=== PATIENT | female | born 1990 | race Caucasian/White ===

== ENCOUNTER 2017-12-24 15:41 | Emergency (ER) | payer OTHER ==
[2017-12-24] MEDS ORDERED: ONDANSETRON 4 MG/2 ML VIAL ONE (16:48)
[2017-12-24] MEDS ORDERED: NA CHLORIDE 0.9% 1,000 ML ONE ×2 (16:48→18:06)
[2017-12-24] MEDS ORDERED: FAMOTIDINE 20 MG/2 ML VIAL IV ONE (16:49)
[2017-12-24 17:02] LABS: Urine Blood 3+ (NEG); Urine Glucose NEGATIVE (NEG); Urine Protein 3+ (NEG); Urine Specific Gravity >1.030 (1.005-1.030); Urine pH 5.5 (5.0-7.0)
[2017-12-24 17:04] LABS: Urine Bacteria 20-50 /HPF (<20); Urine Culture Reflex Order REFLEXED; Urine RBC 20-50 /HPF (NONE SEEN)
[2017-12-24 17:07] LABS: Absolute Lymphocytes (CBC) 1.9 K/uL (0.7-4.9); Absolute Monocytes 0.7 K/uL (0.1-1.3); Absolute Neutrophil 7.4 K/uL (1.8-8.0); Basophils % 0.5 % (0-1.3); Hematocrit 33.8 % (36.0-45.0); Lymphocytes % 18.2 % (15.3-44.8); MCH 29.3 pg (27.0-35.0); MCV 86.5 fL (80-100); MPV 8.5 fL (7.6-11.3); Monocytes % 6.8 % (3.3-12.3); RBC Red Blood Cell Count 3.91 M/uL (3.86-4.86)
[2017-12-24 17:39] LABS: ALT/SGPT 11 U/L (12-78); AST/SGOT 13 U/L (15-37); Albumin 3.2 g/dL (3.4-5.0); Alkaline Phosphatase 54 U/L (45-117); Amylase Level 31 U/L (25-115); BUN Blood Urea Nitrogen 21 mg/dL (7-18); Bicarbonate 24 mmol/L (21-32); Bilirubin Direct < 0.1 mg/dL (0-0.2); Bilirubin Total 0.2 mg/dL (0.2-1.0); Glucose Level 82 mg/dL (74-106); Lipase 91 U/L (73-393); Potassium 3.9 mmol/L (3.5-5.1); Protein, Total 6.7 g/dL (6.4-8.2); Sodium Level 137 mmol/L (136-145)
[2017-12-24] MEDS ORDERED: ACETAMINOPHEN 500 MG TAB ONE (18:16)
--- NOTE | 2017-12-24 19:02 | ER ---
Nurse's Notes [facility] Name: Shaun Lopez Age: 27 yrs Sex: Female : 1990 Arrival Date: 12/24/2017 Time: 15:45 Bed 26 Private MD: None, None Diagnosis: related conditions, unspecified;Nausea and vomiting;Headache Presentation: 12/24 15:45 Presenting complaint: Patient states: LMP- 10/20/17; i had a bad headache since this AM; hj reports nausea and vomiting;. Transition of care: patient was not received from another setting of care. Onset of symptoms was December 24, 2017. Risk Assessment: Do you want to hurt yourself or someone else? Patient reports no desire to harm self or others. Initial Sepsis Screen: Does the patient meet any 2 criteria? No. Patient's initial sepsis screen is negative. Does the patient have a suspected source of infection? No. Patient's initial sepsis screen is negative. Care prior to arrival: None. 15:45 Method Of Arrival: Ambulatory 15:45 Acuity: VERNA 3 Triage Assessment: 15:47 General: Appears in no apparent distress. uncomfortable, Behavior is calm, cooperative, hj appropriate for age. Pain: Complains of pain in head Pain currently is 8 out of 10 on a pain scale. 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 - Social history:: Smoking status: Patient/guardian denies using tobacco, Patient/guardian denies using alcohol. - Ebola Screening: : Patient negative for fever greater than or equal to 101.5 degrees Fahrenheit, and additional compatible Ebola Virus Disease symptoms Patient denies exposure to infectious person Patient denies travel to an Ebola-affected area in the 21 days before illness onset. Screenin:48 Abuse screen: Denies threats or abuse. Denies injuries from another. Nutritional hj screening: No deficits noted. Tuberculosis screening: No symptoms or risk factors identified. Fall Risk None identified. Assessment: 16:15 General: Appears uncomfortable, slender, well groomed, well developed, well nourished, tl3 Behavior is calm, cooperative, appropriate for age. Pain: Complains of pain in headache. Neuro: Level of Consciousness is awake, alert, obeys commands, Oriented to person, place, time, situation, Appropriate for age. Cardiovascular: Heart tones S1 S2 present Patient's skin is warm and dry. Respiratory: Airway is patent Respiratory effort is even, unlabored, Respiratory pattern is regular, symmetrical, Breath sounds are clear bilaterally. GI: Abdomen is round Reports vomiting. : Urine is clear. : Reports 8 weeks . EENT: No signs and/or symptoms were reported regarding the EENT system. Derm: No signs and/or symptoms reported regarding the dermatologic system. Musculoskeletal: No signs and/or symptoms reported regarding the musculoskeletal system. 18:17 Reassessment: Patient appears in no apparent distress at this time. No changes from tl3 previously documented assessment. Patient and/or family updated on plan of care and expected duration. Pain level reassessed. Patient is alert, oriented x 3, equal unlabored respirations, skin warm/dry/pink. pt feeling better after fluids but still has headache, tolerated po challenge. 19:17 Reassessment: Patient appears in no apparent distress at this time. No changes from tl3 previously documented assessment. Patient and/or family updated on plan of care and expected duration. Pain level reassessed. Patient is alert, oriented x 3, equal unlabored respirations, skin warm/dry/pink. Vital Signs: 15:48 BP 132 / 98; Pulse 79; Resp 18; Temp 99.0(TE); Pulse Ox 99% on R/A; Weight 61.23 kg; Height 5 ft. 1 in. (154.94 cm); Pain 8/10; 16:15 BP 146 / 104; Pulse 72; Resp 18; Pulse Ox 100% ; tl3 18:17 BP 143 / 99; Pulse 78; Resp 18; Pulse Ox 100% ; tl3 19:17 BP 128 / 99; Pulse 72; Resp 18; Pulse Ox 100% on R/A; tl3 15:48 Body Mass Index 25.51 (61.23 kg, 154.94 cm) ED Course: 15:45 Patient arrived in ED. mr 15:45 None, None is Private Physician. mr 15:46 Triage completed. hj 15:48 Arm band placed on right wrist. hj 15:49 Patient has correct armband on for positive identification. Bed in low position. Call hj light in reach. Side rails up X 1. 15:54 Javon Roy PA is PHCP. cp 15:54 Solis Oswald MD is Attending Physician. cp 16:00 Eri Goodman, JERALD is Primary Nurse. tl3 16:15 Pulse ox on. NIBP on. Warm blanket given. tl3 16:15 No provider procedures requiring assistance completed. Initial lab(s) drawn, by me. tl3 Inserted saline lock: 20 gauge in right forearm, using aseptic technique. Blood collected. 16:25 Urine collected: clean catch specimen, cloudy, fadi colored. jb1 19:01 Zak Sandoval MD is Referral Physician. cp 19:24 IV discontinued, intact, bleeding controlled, No redness/swelling at site. Pressure tl3 dressing applied. Administered Medications: 16:51 Drug: NS 0.9% 1000 ml Route: IV; Rate: 1 bolus; Site: right forearm; rk2 19:16 Follow up: IV Status: Completed infusion; IV Intake: 1000ml tl3 16:51 Drug: Zofran 4 mg Route: IVP; Site: right femoral; rk2 19:16 Follow up: Response: Nausea is decreased tl3 16:51 Drug: Pepcid 20 mg Route: IVP; Site: right forearm; rk2 19:16 Follow up: Response: No adverse reaction tl3 18:12 Drug: NS 0.9% 1000 ml Route: IV; Rate: 1 bolus; Site: right antecubital; Delivery: tl3 Primary tubing; 19:16 Follow up: IV Status: Completed infusion; IV Intake: 1000ml tl3 18:17 Drug: Tylenol 1000 mg Route: PO; tl3 19:15 Follow up: Response: Pain is decreased tl3 Intake: 19:16 IV: 1000ml; Total: 1000ml. tl3 19:16 IV: 1000ml; Total: 2000ml. tl3 Outcome: 19:02 Discharge ordered by . cp 19:17 Discharged to home ambulatory. tl3 19:17 Condition: good 19:17 Discharge instructions given to patient, Instructed on discharge instructions, follow up and referral plans. medication usage, Demonstrated understanding of instructions, follow-up care, medications, Prescriptions given X 1. 19:25 Patient left the ED. tl3 Addendum: 12/27/2017 17:28 Addendum: Culture Results: Positive urine culture. Patient was not prescribed s s antibiotics at discharge. Report given to KARI for further evaluation and then to pepper picker for follow up with patient. Phone call Attempt #1 no answer, left VM. Signatures: Steven Phillips jb1 Sylvia Pearson mr Vijaya Power, RN RN ss Drake Ochoa RN RN Javon Herbert PA PA Andreina Aguilar RN RN rk2 Eri Goodman RN RN tl3 Corrections: (The following items were deleted from the chart) 12/24 15:49 15:48 Pulse 79bpm; Resp 18bpm; Pulse Ox 99% RA; Temp 99.0F Temporal; 61.23 kg; Height 5 hj ft. 1 in.; BMI: 25.5; Pain 8/10; hj
--- NOTE | 2017-12-24 19:02 | EDPHYS ---
Physician Documentation [facility] Name: Shaun Lopez Age: 27 yrs Sex: Female : 1990 Arrival Date: 12/24/2017 Time: 15:45 Bed 26 Private MD: None, None ED Physician Solis Oswald HPI: 12/24 16:00 This 27 yrs old Female presents to ER via Ambulatory with complaints of 10 cp wks , Vomiting, Headache. 16:00 The patient complains of pain to the top of head and forehead and back of head. The cp patient describes the headache as constant. Onset: The symptoms/episode began/occurred this morning. Associated signs and symptoms: Pertinent positives: , nausea and vomiting for past several days, Pertinent negatives: fever, neck stiffness, paresthesias, sinus congestion, sinus tenderness, vision changes, weakness. Severity of symptoms: in the emergency department the pain is unchanged, despite home interventions. Headache History: The patient has had previous headaches and this one is less severe than previous episodes. 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 - Social history:: Smoking status: Patient/guardian denies using tobacco, Patient/guardian denies using alcohol. - Ebola Screening: : Patient negative for fever greater than or equal to 101.5 degrees Fahrenheit, and additional compatible Ebola Virus Disease symptoms Patient denies exposure to infectious person Patient denies travel to an Ebola-affected area in the 21 days before illness onset. ROS: 16:05 Constitutional: Negative for body aches, chills, fever, poor PO intake. cp 16:05 Eyes: Negative for injury, pain, redness, and discharge. cp 16:05 ENT: Negative for drainage from ear(s), ear pain, sore throat, difficulty swallowing, difficulty handling secretions. 16:05 Neck: Negative for pain with movement, pain at rest, stiffness, tenderness, bony tenderness. 16:05 Respiratory: Negative for cough, shortness of breath, wheezing. 16:05 Abdomen/GI: Positive for nausea, Negative for abdominal pain, diarrhea, constipation, active vomiting. 16:05 Skin: Negative for cellulitis, rash. 16:05 Neuro: Positive for headache, Negative for altered mental status, syncope, near syncope, weakness. 16:05 All other systems are negative. Exam: 16:22 Constitutional: The patient appears in no acute distress, alert, awake, non-toxic, well cp developed, well nourished. 16:22 Head/Face: Normocephalic, atraumatic. Eyes: Pupils equal round and reactive to light, cp extra-ocular motions intact. Lids and lashes normal. Conjunctiva and sclera are non-icteric and not injected. Cornea within normal limits. Periorbital areas with no swelling, redness, or edema. ENT: Nares patent. No nasal discharge, no septal abnormalities noted. Tympanic membranes are normal and external auditory canals are clear. Oropharynx with no redness, swelling, or masses, exudates, or evidence of obstruction, uvula midline. Mucous membranes moist. Neck: Trachea midline, no thyromegaly or masses palpated, and no cervical lymphadenopathy. Supple, full range of motion without nuchal rigidity, or vertebral point tenderness. No Meningismus. Chest/axilla: Normal chest wall appearance and motion. Nontender with no deformity. No lesions are appreciated. 16:22 Cardiovascular: Rate: normal, Rhythm: regular, Pulses: Pulses are 2+ in right radial artery and left radial artery. Edema: is not appreciated, JVD: is not appreciated. 16:22 Respiratory: the patient does not display signs of respiratory distress, Respirations: normal, no use of accessory muscles, no retractions, no splinting, no tachypnea, labored breathing, is not present, Breath sounds: are clear throughout, no decreased breath sounds, no stridor, no wheezing. 16:22 Abdomen/GI: Inspection: abdomen appears normal, Bowel sounds: active, all quadrants, Palpation: abdomen is soft and non-tender, in all quadrants, rebound tenderness, is not appreciated, voluntary guarding, is not appreciated, involuntary guarding, is not appreciated. 16:22 Back: CVA tenderness, is absent. 16:22 Skin: cellulitis, is not appreciated, no rash present. 16:22 Neuro: Orientation: to person, place \T\ time. Mentation: lucid, able to follow commands, Cerebellar function: is grossly normal, Motor: moves all fours, strength is normal, Sensation: is normal. Vital Signs: 15:48 BP 132 / 98; Pulse 79; Resp 18; Temp 99.0(TE); Pulse Ox 99% on R/A; Weight 61.23 kg; hj Height 5 ft. 1 in. (154.94 cm); Pain 8/10; 16:15 BP 146 / 104; Pulse 72; Resp 18; Pulse Ox 100% ; tl3 18:17 BP 143 / 99; Pulse 78; Resp 18; Pulse Ox 100% ; tl3 19:17 BP 128 / 99; Pulse 72; Resp 18; Pulse Ox 100% on R/A; tl3 15:48 Body Mass Index 25.51 (61.23 kg, 154.94 cm) hj MDM: 15:54 Patient medically screened. cp 17:00 Differential diagnosis: meningitis, meningoencephalitis, migraine, sinusitis, cp dehydration, electrolyte abnormality. 18:23 ED course: VS noted. Patient reports symptoms better. No vomiting observed. cp 19:00 Data reviewed: vital signs, nurses notes, lab test result(s), and as a result, I will cp discharge patient. 19:00 Counseling: I had a detailed discussion with the patient and/or guardian regarding: the historical points, exam findings, and any diagnostic results supporting the discharge/admit diagnosis, the presence of at least one elevated blood pressure reading (>120/80) during this emergency department visit, lab results, the need for outpatient follow up, an OB/Gyne specialist, to return to the emergency department if symptoms worsen or persist or if there are any questions or concerns that arise at home. Response to treatment: the patient's symptoms have markedly improved after treatment, and as a result, I will discharge patient. 12/24 16:25 Order name: Urine Microscopic Only; Complete Time: 17:51 jb1 12/24 17:52 Interpretation: Normal except: UWBC 5-10; URBC 20-50; UBACT 20-50; SQEPI 10-20. cp 12/24 16:34 Order name: Urine Dipstick--Ancillary (enter results); Complete Time: 17:51 sp 12/24 17:52 Interpretation: Normal except: UBLD 3+; UPROT 3+. cp 12/24 16:34 Order name: Test Urine - POC; Complete Time: 17:51 sp 12/24 16:38 Order name: Amylase, Serum; Complete Time: 17:51 cp 12/24 16:38 Order name: Basic Metabolic Panel; Complete Time: 17:51 cp 12/24 17:52 Interpretation: Normal except: BUN 21; GFR 67. cp 12/24 16:38 Order name: CBC with Diff; Complete Time: 17:51 cp 12/24 17:52 Interpretation: Normal except: HGB 11.5; HCT 33.8. cp 12/24 16:38 Order name: Creatinine for Radiology; Complete Time: 17:51 cp 12/24 16:38 Order name: Hepatic Function; Complete Time: 17:51 cp 12/24 16:38 Order name: Lipase; Complete Time: 17:51 cp 12/24 17:05 Order name: Urine Culture EDMS 12/24 15:54 Order name: Orthostatics cp 12/24 15:58 Order name: Urine Dipstick-Ancillary (obtain specimen); Complete Time: 16:25 cp 12/24 15:58 Order name: Urine Test (obtain specimen); Complete Time: 16:25 cp 12/24 16:38 Order name: IV Saline Lock; Complete Time: 16:52 cp 12/24 16:38 Order name: Labs collected and sent; Complete Time: 16:52 cp 12/24 17:53 Order name: PO challenge; Complete Time: 18:13 cp Administered Medications: 16:51 Drug: NS 0.9% 1000 ml Route: IV; Rate: 1 bolus; Site: right forearm; rk2 19:16 Follow up: IV Status: Completed infusion; IV Intake: 1000ml tl3 16:51 Drug: Zofran 4 mg Route: IVP; Site: right femoral; rk2 19:16 Follow up: Response: Nausea is decreased tl3 16:51 Drug: Pepcid 20 mg Route: IVP; Site: right forearm; rk2 19:16 Follow up: Response: No adverse reaction tl3 18:12 Drug: NS 0.9% 1000 ml Route: IV; Rate: 1 bolus; Site: right antecubital; Delivery: tl3 Primary tubing; 19:16 Follow up: IV Status: Completed infusion; IV Intake: 1000ml tl3 18:17 Drug: Tylenol 1000 mg Route: PO; tl3 19:15 Follow up: Response: Pain is decreased tl3 Disposition: 12/24/17 19:02 Discharged to Home. Impression: related conditions, unspecified, Nausea and vomiting, Headache. - Condition is Stable. - Discharge Instructions: General Headache Without Cause, Medicines During , Nausea and Vomiting. - Prescriptions for Phenergan 25 mg Rectal Suppository - insert 1 suppository by RECTAL route every 6 hours As needed; 12 suppository. promethazine 25 mg Oral Tablet - take 1 tablet by ORAL route every 6 hours As needed; 20 tablet. - Medication Reconciliation Form, Thank You Letter, Antibiotic Education, Prescription Opioid Use form. - Follow up: Zak Sandoval MD; When: 2 - 3 days; Reason: Recheck today's complaints. - Problem is new. - Symptoms have improved. - Notes: continue taking current blood pressure medication and follow-up with DR Sandoval next 2-3 days Addendum: 12/26/2017 23:02 Co-signature as Attending Physician, Solis Oswald MD I agree with the assessment and k dr plan of care. Signatures: Dispatcher [employer] EDMS Solis Oswald MD MD [facility] Drake Ochoa RN RN Javon Herbert PA PA cp Andreina Islas RN RN rk2 Eri Goodman, JERALD RN tl3 Corrections: (The following items were deleted from the chart) 12/24 19:25 19:02 12/24/2017 19:02 Discharged to Home. Impression: related conditions, tl3 unspecified; Nausea and vomiting; Headache. Condition is Stable. Forms are Medication Reconciliation Form, Thank You Letter, Antibiotic Education, Prescription Opioid Use. Follow up: Zak Sandoval; When: 2 - 3 days; Reason: Recheck today's complaints. Problem is new. Symptoms have improved. cp
[2017-12-24 19:29] VITALS: TEMP 99
[2017-12-24 19:30] VITALS: O2SAT 100
[2017-12-24 19:32] VITALS: BP 128/99
== END 2017-12-24 19:25 | disposition home or self-care (01) ==
LOC: ER 15:41
DX: O21.9 Vomiting of pregnancy, unspecified (principal); R51 Headache; Z3A.10 10 weeks gestation of pregnancy
CPT/HCPCS: 36415; 80048; 80076; 81003; 81015; 81025; 82150; 83690; 85025; 87077; 87086; 87088; 87186; 99284; J2405; J7030

== ENCOUNTER 2018-01-25 13:38 | Emergency (ER) | payer OTHER ==
[2018-01-25 14:35] LABS: Absolute Lymphocytes (CBC) 1.5 K/uL (0.7-4.9); Absolute Monocytes 0.5 K/uL (0.1-1.3); Absolute Neutrophil 8.3 K/uL (1.8-8.0); Basophils % 0.4 % (0-1.3); Eosinophils % 0.9 % (0-4.4); Hematocrit 33.7 % (36.0-45.0); Lymphocytes % 14.3 % (15.3-44.8); MPV 8.1 fL (7.6-11.3); Monocytes % 5.1 % (3.3-12.3); RBC Red Blood Cell Count 3.87 M/uL (3.86-4.86)
[2018-01-25 14:42] LABS: Urine Blood 3+ (NEG); Urine Glucose NEGATIVE (NEG); Urine Protein 3+ (NEG); Urine Specific Gravity 1.025 (1.005-1.030); Urine pH 5.5 (5.0-7.0)
[2018-01-25] MEDS ORDERED: ACETAMINOPHEN 500 MG TAB ONE (15:03)
[2018-01-25] MEDS ORDERED: NA CHLORIDE 0.9% 1,000 ML ONE (15:03)
[2018-01-25 15:18] LABS: Potassium 3.7 mmol/L (3.5-5.1)
--- NOTE | 2018-01-25 15:40 | ER ---
Nurse's Notes [facility] Name: Shaun Lopez Age: 27 yrs Sex: Female : 1990 Arrival Date: 01/25/2018 Time: 13:41 Bed 17 Private MD: None, None Diagnosis: Abdominal and pelvic pain Presentation: 01/25 14:01 Presenting complaint: Patient states: being about 14 weeks and started having sv abd cramping that started yesterday. Denies vaginal bleeding. Transition of care: patient was not received from another setting of care. Onset of symptoms was January 24, 2018. Care prior to arrival: None. 14:01 Method Of Arrival: Ambulatory sv 14:01 Acuity: VERNA 3 sv 16:02 Risk Assessment: Do you want to hurt yourself or someone else? Patient reports no hj desire to harm self or others. Initial Sepsis Screen: Does the patient meet any 2 criteria? No. Patient's initial sepsis screen is negative. Does the patient have a suspected source of infection? No. Patient's initial sepsis screen is negative. Triage Assessment: 16:01 General: Appears in no apparent distress. uncomfortable, Behavior is calm, cooperative, hj appropriate for age. Pain: Complains of pain in abdomen. GI: Reports lower abdominal pain, upper abdominal pain. 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 - Social history:: Smoking status: Patient/guardian denies using tobacco. - Ebola Screening: : No symptoms or risks identified at this time. Screenin:01 Abuse screen: Denies threats or abuse. Denies injuries from another. Nutritional hj screening: No deficits noted. Tuberculosis screening: No symptoms or risk factors identified. Fall Risk None identified. Assessment: 16:01 GI: Bowel sounds present X 4 quads. Abd is soft. hj Vital Signs: 14:03 BP 131 / 77; Pulse 102; Resp 18; Pulse Ox 98% ; Weight 58.97 kg; Height 5 ft. 1 in. sv (154.94 cm); Pain /; 14:03 Body Mass Index 24.56 (58.97 kg, 154.94 cm) ED Course: 13:41 Patient arrived in ED. mr 13:42 None, None is Private Physician. mr 14:02 Triage completed. sv 14:03 Arm band placed on right wrist. sv 14:04 Drake Ochoa RN is Primary Nurse. hj 14:05 Tayo Grey PA is PHCP. jr8 14:05 Blayne Barclay MD is Attending Physician. jr8 16:02 Patient has correct armband on for positive identification. Placed in gown. Bed in low hj position. Call light in reach. Side rails up X 1. 16:02 No provider procedures requiring assistance completed. Initial lab(s) drawn, by ar, hj sent to lab. Inserted saline lock: 14 gauge 22 gauge in right antecubital area, using aseptic technique. Blood collected. IV discontinued, intact, bleeding controlled, No redness/swelling at site. Pressure dressing applied. Administered Medications: 15:00 Drug: NS 0.9% 1000 ml Route: IV; Rate: 1000 ml; Site: right antecubital; hj 16:03 Follow up: IV Status: Completed infusion hj 15:00 Drug: Tylenol 1000 mg Route: PO; hj 16:03 Follow up: Response: No adverse reaction Outcome: 15:39 Discharge ordered by . jr8 16:02 Discharged to home ambulatory. hj 16:02 Condition: stable 16:02 Discharge instructions given to patient, Instructed on discharge instructions, follow up and referral plans. Demonstrated understanding of instructions, follow-up care. 16:03 Patient left the ED. Signatures: Maya Wood RN RN Sylvia Pearson mr Tayo Grey PA PA jr8 Drake Ochoa RN RN
--- NOTE | 2018-01-25 15:41 | EDPHYS ---
Physician Documentation [facility] Name: Shaun Lopez Age: 27 yrs Sex: Female : 1990 Arrival Date: 01/25/2018 Time: 13:41 Bed 17 Private MD: None, None ED Physician Blayne Barclay HPI: 01/25 15:31 This 27 yrs old Female presents to ER via Ambulatory with complaints of 14 jr8 wks , Abdominal Cramping. 15:32 The patient presents with pelvic pain, the pain is described as crampy. Onset: The jr8 symptoms/episode began/occurred acutely, today. Modifying factors: The symptoms are alleviated by nothing, the symptoms are aggravated by nothing. Associated signs and symptoms: The patient has no apparent associated signs or symptoms. Severity of symptoms: At their worst the symptoms were mild, in the emergency department the symptoms are unchanged. The patient has not experienced similar symptoms in the past. The patient has not recently seen a physician. Stated that she works outside a lot for work. Approximately 15 weeks . Stated that she started to have lower abdominal cramping. Denies vaginal bleeding and discharge . 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 - Social history:: Smoking status: Patient/guardian denies using tobacco. - Ebola Screening: : No symptoms or risks identified at this time. ROS: 15:32 Eyes: Negative for injury, pain, redness, and discharge, ENT: Negative for injury, jr8 pain, and discharge, Neck: Negative for injury, pain, and swelling, Cardiovascular: Negative for chest pain, palpitations, and edema, Respiratory: Negative for shortness of breath, cough, wheezing, and pleuritic chest pain, Abdomen/GI: Negative for abdominal pain, nausea, vomiting, diarrhea, and constipation, Back: Negative for injury and pain, MS/Extremity: Negative for injury and deformity, Skin: Negative for injury, rash, and discoloration, Neuro: Negative for headache, weakness, numbness, tingling, and seizure. 15:32 : Positive for pelvic pain, Negative for urinary symptoms, vaginal bleeding, vaginal discharge. Exam: 15:32 Eyes: Pupils equal round and reactive to light, extra-ocular motions intact. Lids and jr8 lashes normal. Conjunctiva and sclera are non-icteric and not injected. Cornea within normal limits. Periorbital areas with no swelling, redness, or edema. ENT: Nares patent. No nasal discharge, no septal abnormalities noted. Tympanic membranes are normal and external auditory canals are clear. Oropharynx with no redness, swelling, or masses, exudates, or evidence of obstruction, uvula midline. Mucous membranes moist. Neck: Trachea midline, no thyromegaly or masses palpated, and no cervical lymphadenopathy. Supple, full range of motion without nuchal rigidity, or vertebral point tenderness. No Meningismus. Cardiovascular: Regular rate and rhythm with a normal S1 and S2. No gallops, murmurs, or rubs. Normal PMI, no JVD. No pulse deficits. Respiratory: Lungs have equal breath sounds bilaterally, clear to auscultation and percussion. No rales, rhonchi or wheezes noted. No increased work of breathing, no retractions or nasal flaring. Abdomen/GI: Soft, non-tender, with normal bowel sounds. No distension or tympany. No guarding or rebound. No evidence of tenderness throughout. Back: No spinal tenderness. No costovertebral tenderness. Full range of motion. Skin: Warm, dry with normal turgor. Normal color with no rashes, no lesions, and no evidence of cellulitis. MS/ Extremity: Pulses equal, no cyanosis. Neurovascular intact. Full, normal range of motion. Neuro: Awake and alert, GCS 15, oriented to person, place, time, and situation. Cranial nerves II-XII grossly intact. Motor strength 5/5 in all extremities. Sensory grossly intact. Cerebellar exam normal. Normal gait. Vital Signs: 14:03 BP 131 / 77; Pulse 102; Resp 18; Pulse Ox 98% ; Weight 58.97 kg; Height 5 ft. 1 in. sv (154.94 cm); Pain 1/10; 14:03 Body Mass Index 24.56 (58.97 kg, 154.94 cm) sv MDM: 14:06 Patient medically screened. 8 15:32 Data reviewed: vital signs, nurses notes, lab test result(s), and as a result, I will jr8 discharge patient. Data interpreted: Pulse oximetry: on room air is 98 %. Interpretation: normal. Counseling: I had a detailed discussion with the patient and/or guardian regarding: the historical points, exam findings, and any diagnostic results supporting the discharge/admit diagnosis, lab results, the need for outpatient follow up, an OB/Gyne specialist, to return to the emergency department if symptoms worsen or persist or if there are any questions or concerns that arise at home. Response to treatment: the patient's symptoms have resolved after treatment. ED course: Patient without pain after fluids and Tylenol. Explained to patient probably either uterine irritability or mild related cramping secondary to uterine and broad ligament stretching. Recommend rest for next couple of days. If worse or bleeding to come back for further evaluation. FHT was 140 bpm. . 01/25 14:06 Order name: Quantitative Hcg; Complete Time: 15:01/25 14:06 Order name: Abo/rh Typing; Complete Time: 15:01/25 14:06 Order name: Basic Metabolic Panel; Complete Time: 15:01/25 14:06 Order name: CBC with Diff; Complete Time: 15:01/25 14:33 Order name: Urine Dipstick--Ancillary (enter results); Complete Time: 14:46 01/25 14:33 Order name: Urine --Ancillary (enter results); Complete Time: 14:46 01/25 14:06 Order name: Urine Test (obtain specimen); Complete Time: 14:24 01/25 14:06 Order name: IV Saline Lock; Complete Time: 14:01/25 14:06 Order name: Labs collected and sent; Complete Time: 14:01/25 14:06 Order name: NPO; Complete Time: 14:08 01/25 14:06 Order name: Urine Dipstick-Ancillary (obtain specimen); Complete Time: 14: Administered Medications: 15:00 Drug: NS 0.9% 1000 ml Route: IV; Rate: 1000 ml; Site: right antecubital; 16:03 Follow up: IV Status: Completed infusion hj 15:00 Drug: Tylenol 1000 mg Route: PO; 16:03 Follow up: Response: No adverse reaction Disposition: 16:50 Co-signature as Attending Physician, Blayne Barclay MD. rn Disposition: 01/25/18 15:39 Discharged to Home. Impression: Abdominal and pelvic pain. - Condition is Stable. - Discharge Instructions: Abdominal Pain During . - Work release form, Medication Reconciliation Form, Thank You Letter, Antibiotic Education, Prescription Opioid Use form. - Follow up: Private Physician; When: 5 - 6 days; Reason: Recheck today's complaints, Continuance of care, Re-evaluation by your physician. - Problem is new. - Symptoms have improved. Signatures: Dispatcher [employer] Maya Webber, RN Blayne Salgado MD MD rn Roszak, Josh, PA PA jr8 Drake Ochoa RN RN Corrections: (The following items were deleted from the chart) 16:03 15:39 01/25/2018 15:39 Discharged to Home. Impression: Abdominal and pelvic pain. hj Condition is Stable. Forms are Medication Reconciliation Form, Thank You Letter, Antibiotic Education, Prescription Opioid Use. Follow up: Private Physician; When: 5 - 6 days; Reason: Recheck today's complaints, Continuance of care, Re-evaluation by your physician. Problem is new. Symptoms have improved. jr8
[2018-01-25 16:08] VITALS: BP 131/77; O2SAT 98
== END 2018-01-25 16:03 | disposition home or self-care (01) ==
LOC: ER 13:38
DX: R10.2 Pelvic and perineal pain (principal); O16.2 Unspecified maternal hypertension, second trimester; Z3A.15 15 weeks gestation of pregnancy
CPT/HCPCS: 36415; 80048; 81003; 81025; 84702; 85025; 86900; 86901; 96360; 99283; J7030

== ENCOUNTER 2018-02-09 08:59 | Emergency (ER) | payer OTHER ==
[2018-02-09] MEDS ORDERED: NA CHLORIDE 0.9% 1,000 ML ONE (10:48)
[2018-02-09 11:21] LABS: Urine Amorphous Sediment 1+ /HPF (NONE SEEN); Urine Bacteria <20 /HPF (<20); Urine Culture Reflex Order NOT NEEDED; Urine Mucus 1+ /HPF (NONE SEEN); Urine RBC <5 /HPF (NONE SEEN)
[2018-02-09 11:21] LABS: Urine Blood 2+ (NEG); Urine Glucose NEGATIVE (NEG); Urine Protein 2+ (NEG)
--- NOTE | 2018-02-09 11:47 | ER ---
Nurse's Notes [facility] Name: Shaun Lopez Age: 27 yrs Sex: Female : 1990 Arrival Date: 02/09/2018 Time: 09:01 Bed 13 Private MD: None, None Diagnosis: Headache Presentation: 02/09 09:18 Presenting complaint: Patient states: I took my labetilol 100 mg this morning with my ch nefedipine 60 mg this morning at 0730. I started feeling faint. My OB told me I should not have taken them together and to go strait to the ER. I am about 15 weeks . Transition of care: patient was not received from another setting of care. Onset of symptoms was February 09, 2018 at 08:00. Risk Assessment: Do you want to hurt yourself or someone else? Patient reports no desire to harm self or others. Initial Sepsis Screen: Does the patient meet any 2 criteria? No. Patient's initial sepsis screen is negative. Does the patient have a suspected source of infection? No. Patient's initial sepsis screen is negative. Care prior to arrival: None. 09:18 Method Of Arrival: Ambulatory 09:18 Acuity: VERNA 4 Triage Assessment: 09:20 General: Appears in no apparent distress. comfortable, Behavior is anxious. Pain: ch Denies pain. Neuro: No deficits noted. Level of Consciousness is awake, alert, obeys commands, Oriented to person, place. Neuro: Reports dizziness, weakness feeling faint. Respiratory: Airway is patent Respiratory effort is even, unlabored. : No signs and/or symptoms were reported regarding the genitourinary system. 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 - Social history:: Smoking status: Patient/guardian denies using tobacco. - Ebola Screening: : Patient negative for fever greater than or equal to 101.5 degrees Fahrenheit, and additional compatible Ebola Virus Disease symptoms Patient denies exposure to infectious person Patient denies travel to an Ebola-affected area in the 21 days before illness onset No symptoms or risks identified at this time. Screenin:22 Abuse screen: Denies threats or abuse. Denies injuries from another. Nutritional ch screening: No deficits noted. Tuberculosis screening: No symptoms or risk factors identified. Fall Risk None identified. Assessment: 09:22 Reassessment: Patient appears in no apparent distress at this time. 09:39 Reassessment: Patient is alert, oriented x 3, equal unlabored respirations, skin ch warm/dry/pink. pt c/o headache as well. awaiting provider to see pt. 10:53 Reassessment: Patient appears in no apparent distress at this time. No changes from previously documented assessment. Patient and/or family updated on plan of care and expected duration. Pain level reassessed. Patient is alert, oriented x 3, equal unlabored respirations, skin warm/dry/pink. 11:08 Reassessment: Patient appears in no apparent distress at this time. Patient and/or ch family updated on plan of care and expected duration. Pain level reassessed. Patient is alert, oriented x 3, equal unlabored respirations, skin warm/dry/pink. Patient states feeling better. 12:02 Reassessment: Patient appears in no apparent distress at this time. Patient and/or ch family updated on plan of care and expected duration. Pain level reassessed. Patient is alert, oriented x 3, equal unlabored respirations, skin warm/dry/pink. Patient states feeling better. Patient states symptoms have improved. Vital Signs: 09:20 BP 110 / 70; Pulse 80; Resp 16; Temp 98.3; Pulse Ox 99% on R/A; Weight 68.04 kg; Height 5 ft. 5 in. (165.10 cm); Pain 0/10; 09:39 BP 107 / 62; Pulse 71; Resp 14; Pulse Ox 99% on R/A; Pain 5/10; ch 10:53 BP 108 / 64; Pulse 72; Resp 14; Pulse Ox 99% on R/A; Pain 5/10; ch 11:08 BP 106 / 68; Pulse 68; Resp 14; Pulse Ox 100% on R/A; Pain 2/10; ch 12:02 BP 121 / 69; Pulse 65; Resp 14; Temp 97.8; Pulse Ox 99% on R/A; Pain 0/10; ch 09:20 Body Mass Index 24.96 (68.04 kg, 165.10 cm) Vitals: 11:08 Heart Tones 155. ED Course: 09:01 Patient arrived in ED. mr 09:01 None, None is Private Physician. mr 09:12 Jessica Bearden RN is Primary Nurse. 09:17 Marco Antonio Ferrer NP is PHCP. pm1 09:17 Blayne Barclay MD is Attending Physician. pm1 09:19 Triage completed. 09:20 Arm band placed on left wrist. Patient placed in an exam room, on a stretcher, on pulse oximetry. 09:22 No apparent distress. Resting quietly. 09:22 Patient has correct armband on for positive identification. Bed in low position. Call light in reach. Side rails up X 1. Adult w/ patient. Pulse ox on. NIBP on. 09:22 No provider procedures requiring assistance completed. 11:06 Urine collected: clean catch specimen, clear. [facility] 11:06 Urine Microscopic Only Sent. [facility] 11:08 Warm blanket given. 11:08 Inserted saline lock: 20 gauge in right antecubital area, using aseptic technique. 12:02 No apparent distress. Resting quietly. 12:02 IV discontinued, intact, bleeding controlled, No redness/swelling at site. Pressure dressing applied. Administered Medications: 11:09 Drug: NS 0.9% 1000 ml Route: IV; Rate: 1000 ml; Site: right antecubital; 12:02 Follow up: IV Status: Completed infusion; IV Intake: 1000ml ch Intake: 12:02 IV: 1000ml; Total: 1000ml. Outcome: 11:47 Discharge ordered by . pm1 12:02 Discharged to home ambulatory. 12:02 Condition: improved 12:02 Discharge instructions given to patient, Instructed on discharge instructions, follow up and referral plans. Demonstrated understanding of instructions, follow-up care. 12:16 Patient left the ED. Signatures: Jessica Bearden RN RN ch Rivera, Maria mr Marco Antonio Ferrer NP [facility] Sylvia Wattesr [facility]
--- NOTE | 2018-02-09 11:47 | EDPHYS ---
Physician Documentation [facility] Name: Shaun Lopez Age: 27 yrs Sex: Female : 1990 Arrival Date: 02/09/2018 Time: 09:01 Bed 13 Private MD: None, None ED Physician Blayne Barclay HPI: 02/09 11:27 This 27 yrs old Female presents to ER via Ambulatory with complaints of Took pm1 Medication wrong 15 wks . 11:27 Patient 16 weeks and was seen by garment cutter, Dr. Irlanda Cadet yesterday for pm1 asymptomatic microscopic hematuria, proteinuria, and hypertension. CBC, BMP, UA, albumin, YUMIKO, Hepatitis, and HIV panel labs were performed yesterday. Patient was taking hydrochlorothiazide 25 mg PO daily until today. Patient was prescribed labetalol 100 mg PO every 12 hours and nifedipine ER 60 mg PO once daily. She is presenting today for dizziness and headache after taking her new blood pressure medication for the first time today. She called Dr. Cadet and was told that she was only supposed to take the labetalol. Instructed by Dr. Cadet to report to the ER for evaluation. Patient sees Dr. Santosh Alston for obstetrics and has had an ultrasound recently. Patient is feeling better with a complaint of headache. 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 - Social history:: Smoking status: Patient/guardian denies using tobacco. - Ebola Screening: : Patient negative for fever greater than or equal to 101.5 degrees Fahrenheit, and additional compatible Ebola Virus Disease symptoms Patient denies exposure to infectious person Patient denies travel to an Ebola-affected area in the 21 days before illness onset No symptoms or risks identified at this time. ROS: 11:30 Constitutional: Negative for fever, chills, and weight loss, Eyes: Negative for injury, pm1 pain, redness, and discharge, ENT: Negative for injury, pain, and discharge, Neck: Negative for injury, pain, and swelling, Cardiovascular: Negative for chest pain, palpitations, and edema, Respiratory: Negative for shortness of breath, cough, wheezing, and pleuritic chest pain, Abdomen/GI: Negative for abdominal pain, nausea, vomiting, diarrhea, and constipation, Back: Negative for injury and pain, : Negative for injury, bleeding, discharge, and swelling, MS/Extremity: Negative for injury and deformity, Skin: Negative for injury, rash, and discoloration. 11:30 Neuro: Positive for headache, Negative for numbness, syncope, near syncope, tingling, weakness. Exam: 11:30 Constitutional: This is a well developed, well nourished patient who is awake, alert, pm1 and in no acute distress. Head/Face: Normocephalic, atraumatic. Eyes: Pupils equal round and reactive to light, extra-ocular motions intact. Lids and lashes normal. Conjunctiva and sclera are non-icteric and not injected. Cornea within normal limits. Periorbital areas with no swelling, redness, or edema. ENT: Nares patent. No nasal discharge, no septal abnormalities noted. Tympanic membranes are normal and external auditory canals are clear. Oropharynx with no redness, swelling, or masses, exudates, or evidence of obstruction, uvula midline. Mucous membranes moist. Neck: Trachea midline, no thyromegaly or masses palpated, and no cervical lymphadenopathy. Supple, full range of motion without nuchal rigidity, or vertebral point tenderness. No Meningismus. Chest/axilla: Normal chest wall appearance and motion. Nontender with no deformity. No lesions are appreciated. Cardiovascular: Regular rate and rhythm with a normal S1 and S2. No gallops, murmurs, or rubs. Normal PMI, no JVD. No pulse deficits. Respiratory: Lungs have equal breath sounds bilaterally, clear to auscultation and percussion. No rales, rhonchi or wheezes noted. No increased work of breathing, no retractions or nasal flaring. Abdomen/GI: Soft, non-tender, with normal bowel sounds. No distension or tympany. No guarding or rebound. No evidence of tenderness throughout. Back: No spinal tenderness. No costovertebral tenderness. Full range of motion. Skin: Warm, dry with normal turgor. Normal color with no rashes, no lesions, and no evidence of cellulitis. MS/ Extremity: Pulses equal, no cyanosis. Neurovascular intact. Full, normal range of motion. 11:30 Neuro: Orientation: is normal, Mentation: is normal, Cranial nerves: CN II- XII are normal as tested, Cerebellar function: normal finger to nose testing, Motor: moves all fours, strength is normal, strength is 5/5 in all extremities, Sensation: is normal, no obvious gross deficits, Gait: is steady, at a normal pace, without difficulty. Vital Signs: 09:20 BP 110 / 70; Pulse 80; Resp 16; Temp 98.3; Pulse Ox 99% on R/A; Weight 68.04 kg; Height ch 5 ft. 5 in. (165.10 cm); Pain 0/10; 09:39 BP 107 / 62; Pulse 71; Resp 14; Pulse Ox 99% on R/A; Pain 5/10; ch 10:53 BP 108 / 64; Pulse 72; Resp 14; Pulse Ox 99% on R/A; Pain 5/10; ch 11:08 BP 106 / 68; Pulse 68; Resp 14; Pulse Ox 100% on R/A; Pain 2/10; ch 12:02 BP 121 / 69; Pulse 65; Resp 14; Temp 97.8; Pulse Ox 99% on R/A; Pain 0/10; ch 09:20 Body Mass Index 24.96 (68.04 kg, 165.10 cm) MDM: 09:18 Patient medically screened. pm1 11:38 Data reviewed: vital signs. Data interpreted: Pulse oximetry: on room air is 100 %. pm1 Interpretation: normal. Counseling: I had a detailed discussion with the patient and/or guardian regarding: the historical points, exam findings, and any diagnostic results supporting the discharge/admit diagnosis, the need for outpatient follow up, to return to the emergency department if symptoms worsen or persist or if there are any questions or concerns that arise at home. 02/09 10:41 Order name: Urine Microscopic Only; Complete Time: 11:25 pm1 02/09 11:15 Order name: Urine Dipstick--Ancillary (enter results); Complete Time: 11:25 bd 02/09 10:41 Order name: FHT's; Complete Time: 11: pm1 02/09 10:41 Order name: IV Saline Lock; Complete Time: 11: pm1 02/09 11:15 Order name: Urine --Ancillary (enter results); Complete Time: 11:25 bd 02/09 10:41 Order name: Urine Dipstick-Ancillary (obtain specimen); Complete Time: 11: pm1 Administered Medications: 11:09 Drug: NS 0.9% 1000 ml Route: IV; Rate: 1000 ml; Site: right antecubital; 12:02 Follow up: IV Status: Completed infusion; IV Intake: 1000ml Disposition: 14:39 Co-signature as Attending Physician, Blayne Barclay MD. rn Disposition: 02/09/18 11:47 Discharged to Home. Impression: Headache. - Condition is Stable. - Discharge Instructions: General Headache Without Cause. - Work release form, Medication Reconciliation Form, Thank You Letter form. - Follow up: Emergency Department; When: As needed; Reason: Worsening of condition. Follow up: Private Physician; When: 2 - 3 days; Reason: Recheck today's complaints, Continuance of care, Re-evaluation by your physician. - Problem is new. - Symptoms have improved. - Notes: Stop taking the nifedipine ER as directed by Dr. Cadet Signatures: Dispatcher [employer] Jessica Joshi, RN Blayne Randall ch, MD MD rn Marinas, Patrick, NIPPING MACHINE OPERATOR NIPPING MACHINE OPERATOR pm1 Corrections: (The following items were deleted from the chart) 12:16 11:47 02/09/2018 11:47 Discharged to Home. Impression: Headache. Condition is Stable. ch Forms are Medication Reconciliation Form, Thank You Letter, Antibiotic Education, Prescription Opioid Use. Follow up: Emergency Department; When: As needed; Reason: Worsening of condition. Follow up: Private Physician; When: 2 - 3 days; Reason: Recheck today's complaints, Continuance of care, Re-evaluation by your physician. Problem is new. Symptoms have improved. pm1
[2018-02-09 12:27] VITALS: BP 121/69; TEMP 97.8; O2SAT 99
== END 2018-02-09 12:16 | disposition home or self-care (01) ==
LOC: ER 08:59
DX: R51 Headache (principal); Z33.1 Pregnant state, incidental
CPT/HCPCS: 81003; 81015; 81025; 96360; 99284; J7030

== ENCOUNTER 2020-05-01 17:31 | Emergency (ER) | payer OTHER ==
--- OUTSIDE RECORDS SUMMARY | 2020-05-01 17:34 | XMS REPORT | Summary of Care ---
:1990 Author Organization [facility] [employer] [facility] Address [address] [place] [address] Care Team Providers Name Role Phone Hernandez Harrison Primary Care Provider Reason for Visit Reason Onset Date Comments ELEVATED BLOOD PRESSURE 03/31/2020 Encounter Details Date Type Department Care Team Description 03/31/2020 Nurse Triage [facility] Karolina Mas RN ELEVATED BLOOD [address] [place] [phone] Allergies No Known Allergiesdocumented as of this encounter (statuses as of 04/01/2020) Medications Medication Sig Dispensed Refills Start Date End Date Status traMADol 50 mg Take 1 tablet by 16 tablet 0 11/02/2019 Active tabletIndications: mouth every 6 Muscle spasm, Strain of (six) hours as neck muscle, initial needed for Pain encounter, Strain of (scale 7-10). left trapezius muscle, initial encounter, Cervical radiculopathy ketorolac 10 mg Take 1 tablet by 16 tablet 0 11/02/2019 Active tabletIndications: mouth every 6 Muscle spasm, Strain of (six) hours as neck muscle, initial needed for Pain encounter, Strain of (scale 7-10). left trapezius muscle, initial encounter, Cervical radiculopathy cyclobenzaprine 5 mg Take 1 tablet by 16 tablet 0 11/02/2019 Active tabletIndications: mouth 3 (three) Muscle spasm, Strain of times daily as neck muscle, initial needed for Muscle encounter, Strain of Spasms. left trapezius muscle, initial encounter, Cervical radiculopathy lidocaine 5 % (700 Apply 1 Patch to 3 Each 0 11/02/2019 Active mg/patch) area(s) every 12 patchIndications: (twelve) hours as Muscle spasm, Strain of needed for neck muscle, initial Localized pain. encounter, Strain of left trapezius muscle, initial encounter, Cervical radiculopathy albuterol 90 Inhale 2 Puffs 8.5 g 1 01/23/2020 A ctive mcg/actuation every 6 (six) inhalerIndications: hours as needed Mild intermittent for Wheezing or reactive airway disease Shortness of without complication Breath. documented as of this encounter (statuses as of 04/01/2020) Active Problems Problem Noted Date Low back pain 07/01/2018 S/P section 06/26/2018 Chronic hypertension with superimposed preeclampsia 34 weeks gestation of 06/19/2018 Obesity (BMI 30-39.9) 06/13/2018 LGSIL on Pap smear of cervix 05/30/2018 Asymptomatic microscopic hematuria 02/06/2018 Persistent proteinuria 02/06/2018 Essential hypertension 07/14/2017 Seizure disorder History of migraine headaches documented as of this encounter (statuses as of 04/01/2020) Resolved Problems Problem Noted Date Resolved Date 33 weeks gestation of 06/08/2018 08/01/19 19 Preexisting hypertension complicating , antepartum, 06/08/2018 08/01/2018 third trimester Previous delivery affecting 06/08/2018 08/01/2018 documented as of this encounter (statuses as of 04/01/2020) Immunizations Name Administration Dates Next Due Influenza Virus Vaccine 04/05/2019 Influenza Virus Vaccine Quad .5 mL IM 6+ MO 04/05/2019 documented as of this encounter Social History Tobacco Use Types Packs/Day Years Used Date Never Smoker Smokeless Tobacco: Never Used Alcohol Use Drinks/Week oz/Week Comments No Sex Assigned at Date Recorded Not on file documented as of this encounter Last Filed Vital Signs Not on filedocumented in this encounter Miscellaneous Notes Telephone Encounter - Kaya Steven RN - 03/31/2020 9:28 AM CDTAppointment scheduled for today at 1440 hr with Henri Harris at [facility] Routing for notification purposes only elephone Encounter - Mahogany Harrison FNP - 03/31/2020 9:28 AM CDTIt would be best to for patient to be seen in clinic so her b/p can be checked and we can do physical exam. Thanks. elephone Encounter - Karolina Mas RN - 03/31/2020 9:28 AM CDT Reason for Disposition Systolic BP >= 160 OR Diastolic >= 100 Protocols used: HIGH BLOOD [id number] per patient, I am having high blood pressure. I have my children at home and would like a tele health appointment." I told her I would send the message to the office and ask them to call her for an appointment. If she develops any more symptoms go to the ER. She verbalized understanding and agree on Plan of care. Karolina VERDE RN- Nurse Clinician [facility] elephone Encounter - Karolina Mas RN - 03/31/2020 9:28 AM CDTAdult Triage Assessment Last Clinic Visit: 01/23/2020 Primary Symptom: B/P 167/143 taken it 25 minutes ago Onset / Duration: this morning Location / Description: systemic Pain / Severity: 5/10 Associated Symptoms: denies vision changes or dizziness Fever / Method: none Hydration: 1 bottle of water intake today, urinating without trouble Treatment so far: lisinopril 20 mg tablet 45 minutes ago Effect on ADL's: some change LMP: last week Pre-existing condition / Immunocompromised: seizure disorder, HTN elephone Encounter - Karolina Mas RN - 03/31/2020 9:28 AM CDT----- Message from Melly Lopez sent at 03/31/2020 9:27 AM CDT ----- BP 167/143 with headaches. documented in this encounter Plan of Treatment Health Maintenance Due Date Last Done Comments PNEUMOCOCCAL 0-64 YEARS COMBINED SERIES 1996 (1 of 1 - PPSV23) DTaP,Tdap,and Td Vaccines (1 - Tdap) 2009 INFLUENZA VACCINE (#1) 2020 04/05/2019, 04/05/2019 Depression Screening 05/14/2020 05/14/2019 PAP SMEAR 02/06/2021 02/06/2018 VARICELLA VACCINES Discontinued documented as of this encounter Results Not on filedocumented in this encounter Insurance Payer Benefit Plan / Group Subscriber ID Effective Dates Phone Address Type [facility] [id number] 2017-Present documented as of this encounter
--- OUTSIDE RECORDS SUMMARY | 2020-05-01 17:34 | XMS REPORT | Summary of Care ---
:1990 Author Organization [facility] Address [address] [place] [address] Care Team Providers Name Role Phone Hernandez Harrison Primary Care Provider Reason for Visit Reason Comments Forms Encounter Details Date Type Department Care Team Description 03/31/2020 Telephone [facility] Monica Tadeo FNP Forms [facility] Alexia [address] [place], [place] [address]sumit Bertrand [address] [facility] [address], [address] [facility] [address] [place] [address] [place] [address] Allergies No Known Allergiesdocumented as of this encounter (statuses as of 03/31/2020) Medications Medication Sig Dispensed Refills Start Date End Date Status traMADol 50 mg Take 1 tablet 16 tablet 0 11/02/2019 Active tabletIndications: Muscle by mouth every spasm, Strain of neck 6 (six) hours muscle, initial as needed for encounter, Strain of left Pain (scale trapezius muscle, initial 7-10). encounter, Cervical radiculopathy ketorolac 10 mg Take 1 tablet 16 tablet 0 11/02/2019 Active tabletIndications: Muscle by mouth every spasm, Strain of neck 6 (six) hours muscle, initial as needed for encounter, Strain of left Pain (scale trapezius muscle, initial 7-10). encounter, Cervical radiculopathy cyclobenzaprine 5 mg Take 1 tablet 16 tablet 0 11/02/2019 Active tabletIndications: Muscle by mouth 3 spasm, Strain of neck (three) times muscle, initial daily as needed encounter, Strain of left for Muscle trapezius muscle, initial Spasms. encounter, Cervical radiculopathy lidocaine 5 % (700 Apply 1 Patch 3 Each 0 11/02/2019 Active mg/patch) to area(s) patchIndications: Muscle every 12 spasm, Strain of neck (twelve) hours muscle, initial as needed for encounter, Strain of left Localized pain. trapezius muscle, initial encounter, Cervical radiculopathy albuterol 90 Inhale 2 Puffs 8.5 g 1 01/23/2020 A ctive mcg/actuation every 6 (six) inhalerIndications: Mild hours as needed intermittent reactive for Wheezing or airway disease without Shortness of complication Breath. lisinopriL 40 mg Take 1 tablet 30 tablet 0 03/31/2020 Active tabletIndications: by mouth daily. Essential hypertension hydroCHLOROthiazide 25 mg Take 1 tablet 30 tablet 0 03/31/2020 Active tabletIndications: by mouth daily. Essential hypertension amLODIPine 10 mg Take 1 tablet 30 tablet 0 03/31/2020 Active tabletIndications: by mouth daily. Essential hypertension documented as of this encounter (statuses as of 03/31/2020) Active Problems Problem Noted Date Low back pain 07/01/2018 S/P section 06/26/2018 Chronic hypertension with superimposed preeclampsia 34 weeks gestation of 06/19/2018 Obesity (BMI 30-39.9) 06/13/2018 LGSIL on Pap smear of cervix 05/30/2018 Asymptomatic microscopic hematuria 02/06/2018 Persistent proteinuria 02/06/2018 Essential hypertension 07/14/2017 Seizure disorder History of migraine headaches documented as of this encounter (statuses as of 03/31/2020) Resolved Problems Problem Noted Date Resolved Date 33 weeks gestation of 06/08/2018 08/01/19 19 Preexisting hypertension complicating , antepartum, 06/08/2018 08/01/2018 third trimester Previous delivery affecting 06/08/2018 08/01/2018 documented as of this encounter (statuses as of 03/31/2020) Immunizations Name Administration Dates Next Due Influenza [...] Encounter - Kaya Steven RN - 03/31/2020 3:23 PM CDTSpoke with patient Informed her that her return to work note is available to her via [employer] Patient verbalized understanding States she will retrieve it from [employer] app elephone Encounter - Vita Berrios - 03/31/2020 3:05 PM KEILATShaun Wilma Lopez is a 29 year old female is calling needing a Dr. Note to return to work she had a telehealth visit today 03/31/20. Please call patient back at [phone] (home) With any questions. Thanks documented in this encounter Plan of Treatment [...] Subscriber ID Effective Dates Phone Address Type [facility] [id number] 2017-Present documented as of this encounter
--- OUTSIDE RECORDS SUMMARY | 2020-05-01 17:34 | XMS REPORT | Summary of Care ---
:1990 Author Organization [facility] Address [address] [place] [address] Care Team Providers Name Role Phone Hernandez Harrison ADULT EDUCATION INSTRUCTOR Primary Care Provider Reason for Visit Reason Comments Rx Concern/Question Clarify lisinopril Encounter Details Date Type Department Care Team Description 04/01/2020 Telephone [facility] Family Monica Harris, Rx Concern/Question Medicine- Alexia ADULT EDUCATION INSTRUCTOR (Clarify lisinopril) [address] [facility] [address], [address] [place] [address] [phone] Allergies No Known Allergiesdocumented as of this [...] this encounter Miscellaneous Notes Telephone Encounter - Norma Roberts MA - 04/01/2020 4:38 PM CDTSpoke with radiopharmacistchristiano Wilhelm. Medication changed. elephone Encounter - Monica Harris FNP - 04/01/2020 3:36 PM CDTyes elephone Encounter - Norma Roberts MA - 04/01/2020 3:31 PM CDT Routing to physician. Ok to change? elephone Encounter - Lauren Minor - 04/01/2020 2:45 PM CDTShaun Wilma Lopez is a 29 year old female Shannon is calling from pharmacy [place] [address] [employer] AT [facility] [address] Regarding lisinopril 40mg [id number]. That particular dosage is on back order and she is wanting to know if she may instead authorize 60 tablets of 20mg. documented in this encounter Plan of Treatment [...] Subscriber ID Effective Dates Phone Address Type [facility] [id number] 2017-Present documented as of this encounter
--- OUTSIDE RECORDS SUMMARY | 2020-05-01 17:34 | XMS REPORT | Summary of Care ---
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 LEASING EXAMINER Primary Care Provider Reason for Visit Reason Comments Hypertension Encounter Details Date Type Department Care Team Description 03/31/2020 Telemedicine Visit [facility] Monica Tadeo Essential Medicine- [facility] hypertension [address] (Primary Dx) 2401 [facility] [address], [address] [place], [place] [phone] Allergies No Known Allergiesdocumented as of this encounter (statuses as of 04/01/2020) Medications Medication Sig Dispensed Refills Start End Date Status Date traMADol 50 mg Take 1 tablet 16 tablet 0 A ctive tabletIndications: by mouth 0 Muscle spasm, Strain of every 6 (six) neck muscle, initial hours as encounter, Strain of needed for left trapezius muscle, Pain (scale initial encounter, 7-10). Cervical radiculopathy ketorolac 10 mg Take 1 tablet 16 tablet 0 Active tabletIndications: by mouth 0 Muscle spasm, Strain of every 6 (six) neck muscle, initial hours as encounter, Strain of needed for left trapezius muscle, Pain (scale initial encounter, 7-10). Cervical radiculopathy cyclobenzaprine 5 mg Take 1 tablet 16 tablet 0 Active tabletIndications: by mouth 3 0 Muscle spasm, Strain of (three) times neck muscle, initial daily as encounter, Strain of needed for left trapezius muscle, Muscle initial encounter, Spasms. Cervical radiculopathy lidocaine 5 % (700 Apply 1 Patch 3 Each 0 Active mg/patch) to area(s) 0 patchIndications: Muscle every 12 spasm, Strain of neck (twelve) muscle, initial hours as encounter, Strain of needed for left trapezius muscle, Localized initial encounter, pain. Cervical radiculopathy albuterol 90 Inhale 2 8.5 g 1 Active mcg/actuation Puffs every 6 0 inhalerIndications: Mild (six) hours intermittent reactive as needed for airway disease without Wheezing or complication Shortness of Breath. lisinopriL 40 mg Take 1 tablet 30 tablet 0 Active tabletIndications: by mouth 0 Essential hypertension daily. hydroCHLOROthiazide 25 Take 1 tablet 30 tablet 0 Active mg tabletIndications: by mouth 0 Essential hypertension daily. amLODIPine 10 mg Take 1 tablet 30 tablet 0 Active tabletIndications: by mouth 0 Essential hypertension daily. chlorthalidone 25 mg Take 1 tablet 30 tablet 2 03/31 Discontinued tabletIndications: by mouth 9 20 Essential hypertension daily. lisinopril 20 mg Take 1 tablet 30 tablet 11 03/31/20 Discontinued tabletIndications: by mouth 0 20 Essential hypertension daily. documented as of this encounter (statuses as [...] Signs Not on filedocumented in this encounter Progress Notes Monica Harris, TIMOTHY - 03/31/2020 2:40 PM CDT TELEHEALTH NOTE Verbal consent obtained from Patient: Shaun Lopze for telehealth services provided below. Communication with patient was conducted via Video Call. Location of Patient: Home Location of Provider: Clinic Date of Service: 04/01/2020 Chief Complaint: High BP and headache HPI: Shaun Lopez is a 29 year old female with C/o Headache since 2 days , review of BP readings are in the 150/120 , 156/127, HR 75/mt, Pt denies any chest pain, shortness of breath, or lower extremity edema. On lisinopril 40 mg daily. Past Medical History: Diagnosis Date Asthma as child Brain tumor Essential hypertension 07/14/2017 History of migraine headaches LGSIL on Pap smear of cervix 05/30/2018 Seizure disorder MEDICATIONS: Current Outpatient Medications Medication Sig Dispense Refill amLODIPine 10 mg tablet Take 1 tablet by mouth daily. 30 tablet 0 hydroCHLOROthiazide 25 mg tablet Take 1 tablet by mouth daily. 30 tablet 0 lisinopriL 40 mg tablet Take 1 tablet by mouth daily. 30 tablet 0 albuterol 90 mcg/actuation inhaler Inhale 2 Puffs every 6 (six) hours as needed for Wheezing or Shortness of Breath. 8.5 g 1 cyclobenzaprine 5 mg tablet Take 1 tablet by mouth 3 (three) times daily as needed for Muscle Spasms. 16 tablet 0 ketorolac 10 mg tablet Take 1 tablet by mouth every 6 (six) hours as needed for Pain (scale 7-10). 16 tablet 0 lidocaine 5 % (700 mg/patch) patch Apply 1 Patch to area(s) every 12 (twelve) hours as needed for Localized pain. 3 Each 0 traMADol 50 mg tablet Take 1 tablet by mouth every 6 (six) hours as needed for Pain (scale 7-10). 16 tablet 0 No current facility-administered medications for this visit. ROS Constitutional No recent significant wt loss. See HPI Cardiovascular- No recent chest pain. Pulmonary No recent SOB. Gastrointestinal -No recent diarrhea. Genitourinary No recent dysuria. Neuro admits CONTRERAS Musculoskeletal No significant new pain. Endocrine No recent significant increase in fatigue. Skin- No recent significant skin changes Psychiatric-no recent significant increase in depression TELEHEALTH EXAM Constitutional: Alert and in no distress Resp: Breathing comfortably Neuro: answers questions appropriately Psych:affect normal ASSESSMENT/ PLAN Shaun Lopez is a 29 year old female with PMH as above presenting with: 1. Essential hypertension - lisinopriL 40 mg tablet; Take 1 tablet by mouth daily. Dispense: 30 tablet; Refill: 0 - hydroCHLOROthiazide 25 mg tablet; Take 1 tablet by mouth daily. Dispense: 30 tablet; Refill: 0 - amLODIPine 10 mg tablet; Take 1 tablet by mouth daily. Dispense: 30 tablet; Refill: 0 Advised to go to ER After visit summary (AVS ) documentation will be available through [employer] for this encounter. Follow up with PCP and to go to ER A total of 15 minutes was spent on the Video Call with the patient. documented in this encounter Plan of Treatment Health Maintenance Due Date Last Done Comments PNEUMOCOCCAL 0-64 YEARS COMBINED SERIES 1996 (1 of 1 - PPSV23) DTaP,Tdap,and Td Vaccines (1 - Tdap) 2009 INFLUENZA VACCINE (#1) 2020 04/05/2019, 04/05/2019 Depression Screening 05/14/2020 05/14/2019 PAP SMEAR 02/06/2021 02/06/2018 VARICELLA VACCINES Discontinued documented as of this encounter Results Not on filedocumented in this encounter Visit Diagnoses Diagnosis Essential hypertension - Primary Unspecified essential hypertension documented in this encounter documented as of this encounter
--- OUTSIDE RECORDS SUMMARY | 2020-05-01 17:34 | XMS REPORT | Continuity of Care Document ---
:1990 Author Organization [facility] t Address [address] [place] [address] Care Team Providers Name Role Phone Chris uGy Attending Clinician Chace MARQUES Attending Clinician Unavailable Felton NOLAN Attending Clinician Doctor Unassigned, Name Attending Clinician Unavailable Lashonda Zamora MD Attending Clinician Hunter GARCIAP, L Attending Clinician Beck GARCIAP, B Attending Clinician John GARCIAP Attending Clinician Problems This patient has no known problems. Allergies, Adverse Reactions, Alerts This patient has no known allergies or adverse reactions. Medications This patient has no known medications. Procedures This patient has no known procedures. Encounters Start End Encounter Admission Attending Care Care Encounter Source Date/Time Date/Time Type Type Clinicians Facility Department ID 2020-04-01 2020-04-01 Telephone Monica Harris [facility] [id number] 00:00:00 00:00:00 [facility] [id number] FAMILY [id number] MEDICINE [id number] RICHA [address] [facility] 2020-03-31 2020-03-31 Telemedici Monica Harris [facility] [id number] 11:27:39 11:47:39 ne Visit [facility] [id number] FAMILY [id number] MEDICINE [id number] RICHA [address] [facility] 2020-03-31 2020-03-31 Telephone Monica Harris [facility] [id number] 00:00[facility]00 [facility]00[id number] [id number] MEDICINE [id number] RICHA [address] [facility] 2020-03-31 2020-03-31 Nurse YINA Mas [id number] 00:00:00 00:00:00 Triage Karolina [facility] [id number] [facility]PITAL [id number] 2020-01-23 2020-01-23 Urgent Felton [facility] [id number] 08:10:46 08:25:46 Care Benigno PRIMARY [id number] CARE [id number] PAVILLION [id number] 2020-01-23 2020-01-23 Orders Doctor YINA [id number] 00:00:00 00:00:00 Only Unassigned, YOSEPH [id number] [facility] [id number] 2019-11-15 2019-11-15 Telemedici Sera [facility] [id number] 07:51:23 08:11:23 ne Visit Deb DWYER [id number] [facility] - [id number] [address] 2019-11-07 2019-11-07 [facility] [id number] 00:00:00 00:00:00 Mahogany DWYER [id number] [facility] - [id number] [address] 2019-11-02 2019-11-02 Emergency Naeem Solares B [facility] 1.2.840 [id number] 16:16:18 18:16:00 Solis Lopez [place] [id number] Results This patient has no known results.
[2020-05-01] MEDS ORDERED: ONDANSETRON 4 MG/2 ML VIAL ONE (18:18)
[2020-05-01] MEDS ORDERED: METOCLOPRAMIDE 10 MG/2mL INJ ONE (18:18)
[2020-05-01] MEDS ORDERED: NA CHLORIDE 0.9% 1,000 ML ONE (18:18)
[2020-05-01] MEDS ORDERED: DIPHENHYDRAMINE 50 MG/ML VIAL ONE (18:18)
[2020-05-01 18:21] LABS: Absolute Lymphocytes (CBC) 0.8 K/uL (0.7-4.9); Basophils % 0.8 % (0-1.3); Hematocrit 36.3 % (36.0-45.0); MPV 8.5 fL (7.6-11.3); RBC Red Blood Cell Count 4.37 M/uL (3.86-4.86)
[2020-05-01 18:37] LABS: Potassium 4.2 mmol/L (3.5-5.1)
--- NOTE | 2020-05-01 19:43 | RAD REPORT ---
EXAM DESCRIPTION: CT - Head Brain Wo Cont - 05/01/2020 7:29 pm CLINICAL HISTORY: HEADACHE, history of right frontal lobe mass removal COMPARISON: No comparisons TECHNIQUE: Axial 5 mm thick images of the head were obtained without IV contrast. All CT scans are performed using dose optimization technique as appropriate and may include automated exposure control or mA/KV adjustment according to patient size. FINDINGS: No intracranial hemorrhage. 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 There is postsurgical change to adjacent bony structures. No localized mass or edema to suspect recurrence of the mass. Trachea is midline. No acute infarction changes see n. No cortical edema or sulcal effacement. Ventricles are normal. Mastoid air cells and visualized portions of the paranasal sinuses are clear. No acute bony findings. IMPRESSION: No mass, hemorrhage or acute intracranial finding identified. Postsurgical changes are present in the inferior right frontal lobe. This matches the provided histor y. No suspicion for residual or recurrent mass.
--- NOTE | 2020-05-01 20:08 | ER ---
Nurse's Notes [facility] Name: Shaun Lopez Age: 29 yrs Sex: Female : 1990 Arrival Date: 05/01/2020 Time: 17:33 Bed 5 Private MD: Diagnosis: Headache;Hypertensive heart disease Presentation: 05/01 17:34 Chief complaint: Patient states: frontal headache started at 1030 today, nausea and sv vomiting as well. HX right frontal lobe removed. Coronavirus screen: Client denies travel out of the [place] in the last 14 days. At this time, the client does not indicate any symptoms associated with coronavirus-19. Ebola Screen: No symptoms or risks identified at this time. Risk Assessment: Do you want to hurt yourself or someone else? Patient reports no desire to harm self or others. Onset of symptoms was May 01, 2020. 17:34 Method Of Arrival: Ambulatory sv 17:34 Acuity: VERNA 2 sv 17:34 Initial Sepsis Screen: Does the patient meet any 2 criteria? No. Patient's initial sv sepsis screen is negative. Does the patient have a suspected source of infection? No. Patient's initial sepsis screen is negative. Triage Assessment: 17:34 Headache History: The patient has had previous headaches and this one is similar to sv previous episodes. General: Appears in no apparent distress. uncomfortable, Behavior is cooperative, appropriate for age. Pain: Complains of pain in forehead Pain currently is 7 out of 10 on a pain scale. Pain began 1030 today Also complains of photophobia. Neuro: Level of Consciousness is awake, alert, obeys commands, Oriented to person, place, time, situation, Moves all extremities. Full function Gait is steady, Speech is normal. Respiratory: Respiratory effort is even, unlabored. Historical: - Allergies: 17:35 No Known Allergies; sv - PMHx: 17:35 "kidney issues"; brain tumor-removed; Hypertension; Migraines; Seizures; sv - PSHx: 17:35 ham tumor removed; sv - Immunization history:: Adult Immunizations up to date. - Social history:: Smoking status: . Screenin:45 Abuse screen: Denies threats or abuse. Nutritional screening: No deficits noted. ll1 Tuberculosis screening: No symptoms or risk factors identified. Fall Risk IV access (20 points). Gait- Weak (10 pts.). Total Iglesias Fall Scale indicates Low Risk Score (25-44 pts). Fall prevention measures have been instituted. Side Rails Up X 2 Frequent Obs/Assesments occuring As available Patient and Family Educated on Fall Prevention Program and strategies. Assessment: 17:46 General: Appears in no apparent distress. Behavior is calm, cooperative, appropriate ll1 for age. Pain: Complains of pain in head Pain currently is 7 out of 10 on a pain scale. Quality of pain is described as throbbing, Pain began 1 day ago. Is continuous. Neuro: Level of Consciousness is awake, alert, obeys commands, Oriented to person, place, time, situation, Appropriate for age Field Technical Support Consultant are equal bilaterally Moves all extremities. Full function Gait is steady, Speech is normal, Facial symmetry appears normal, Pupils are PERRLA, Reports headache. Cardiovascular: No deficits noted. Respiratory: No deficits noted. GI: Abdomen is flat, Bowel sounds present X 4 quads. Abd is soft and non tender X 4 quads. Reports nausea, vomiting. 18:45 Reassessment: Patient and/or family updated on plan of care and expected duration. Pain ll1 level reassessed. Patient is alert, oriented x 3, equal unlabored respirations, skin warm/dry/pink. 19:00 Reassessment: Patient appears in no apparent distress at this time. Patient and/or jb4 family updated on plan of care and expected duration. Pain level reassessed. Patient is alert, oriented x 3, equal unlabored respirations, skin warm/dry/pink. 19:46 Reassessment: Patient appears in no apparent distress at this time. Patient and/or jb4 family updated on plan of care and expected duration. Pain level reassessed. Patient is alert, oriented x 3, equal unlabored respirations, skin warm/dry/pink. Pt given pillow per request. 20:30 Reassessment: Patient appears in no apparent distress at this time. Patient and/or jb4 family updated on plan of care and expected duration. Pain level reassessed. Patient is alert, oriented x 3, equal unlabored respirations, skin warm/dry/pink. Vital Signs: 17:35 BP 177 / 108; Pulse 76; Resp 20; Temp 97.8; Pulse Ox 100% ; Weight 63.5 kg; Height 5 sv ft. 1 in. (154.94 cm); Pain 7/10; 18:58 BP 176 / 123; Pulse 77; Resp 18; ll1 19:07 BP 159 / 98; Pulse 67; Resp 18; ll1 19:45 BP 149 / 108; Pulse 63; Resp 16; Pulse Ox 100% on R/A; jb4 17:35 Body Mass Index 26.45 (63.50 kg, 154.94 cm) sv ED Course: 17:33 Patient arrived in ED. ds1 17:34 Arm band placed on. sv 17:35 Triage completed. sv 17:38 Diego Mari, JERALD is Primary Nurse. ll1 17:40 Javon Roy PA is PHCP. cp 17:40 Solis Oswald MD is Attending Physician. cp 17:46 Patient has correct armband on for positive identification. Call light in reach. Side ll1 rails up X2. 17:55 Inserted saline lock: 22 gauge in right antecubital area, using aseptic technique. ll1 Blood collected. 19:35 CT Head Brain wo Cont In Process Unspecified. EDMS 20:30 No provider procedures requiring assistance completed. IV discontinued, intact, jb4 bleeding controlled, No redness/swelling at site. Pressure dressing applied. Administered Medications: 18:12 Drug: Reglan 10 mg Route: IVP; Site: right antecubital; ll1 18:59 Follow up: Response: No adverse reaction; Pain is decreased; Nausea is decreased; RASS: ll1 Alert and Calm (0) 18:12 Drug: Zofran (Ondansetron) 4 mg Route: IVP; Site: right antecubital; ll1 18:58 Follow up: Response: No adverse reaction; Nausea is decreased; RASS: Alert and Calm (0) ll1 18:12 Drug: Benadryl 12.5 mg Route: IVP; Site: right antecubital; ll1 18:58 Follow up: Response: No adverse reaction; Pain is decreased; RASS: Alert and Calm (0) ll1 18:13 Drug: NS 0.9% 1000 ml Route: IV; Rate: 1 bolus; Site: right antecubital; ll1 20:29 Follow up: Response: No adverse reaction; IV Status: Order to discontinue infusion; IV jb4 Intake: 600ml Intake: 20:29 IV: 600ml; Total: 600ml. jb4 Outcome: 20:07 Discharge ordered by . cp 20:30 Discharged to home ambulatory. jb4 20:30 Condition: stable 20:30 Discharge instructions given to patient, Instructed on discharge instructions, follow up and referral plans. medication usage, Demonstrated understanding of instructions, follow-up care, medications, Prescriptions given X 2. 20:30 Patient left the ED. jb4 Signatures: Dispatcher [employer] EDMS Maya Wood RN RN Asia Lane ds1 Javon Roy PA PA cp Bryson, James, RN RN jb4 Diego Mari RN RN ll1 Corrections: (The following items were deleted from the chart) 17:35 17:34 Acuity: VERNA 4 sv sv 17:37 17:34 Chief complaint: Patient states: frontal headache started at 1030 today, nausea sv as well. sv 17:37 17:34 Acuity: VERNA 3 sv sv 17:40 17:34 Chief complaint: Patient states: frontal headache started at 1030 today, nausea sv and vomiting as well. sv
--- NOTE | 2020-05-01 20:08 | EDPHYS ---
Physician Documentation [facility] Name: Shaun Lopez Age: 29 yrs Sex: Female : 1990 Arrival Date: 05/01/2020 Time: 17:33 Bed 5 Private MD: ED Physician Solis Oswald HPI: 05/01 17:51 This 29 yrs old Female presents to ER via Ambulatory with complaints of cp Headache, Nausea. 17:51 The patient complains of pain to the forehead. The patient describes the headache as cp constant. 17:51 Onset: The symptoms/episode began/occurred today, at 10:30. Associated signs and cp symptoms: Pertinent positives: nausea, Photophobia vomiting, Pertinent negatives: altered mental status, dizziness, fever, neck stiffness, vision loss, weakness. Headache History: The patient has had previous headaches and this one is similar to previous episodes. 17:51 The patient has experienced similar episodes in the past, multiple times. cp Historical: - Allergies: 17:35 No Known Allergies; sv - PMHx: 17:35 "kidney issues"; brain tumor-removed; Hypertension; Migraines; Seizures; sv - PSHx: 17:35 ham tumor removed; sv - Immunization history:: Adult Immunizations up to date. - Social history:: Smoking status: . ROS: 18:00 ENT: Negative for injury, pain, and discharge. cp 18:00 Constitutional: Negative for body aches, chills, fever, poor PO intake. 18:00 Eyes: Positive for photophobia, Negative for discharge, redness. 18:00 Cardiovascular: Negative for chest pain, palpitations. 18:00 Respiratory: Negative for cough, shortness of breath, wheezing. 18:00 Abdomen/GI: Positive for nausea and vomiting. 18:00 Neuro: Positive for headache, Negative for altered mental status, weakness. 18:00 : Negative for urinary symptoms. cp 18:00 All other systems are negative. Exam: 18:05 Constitutional: The patient appears in no acute distress, alert, awake, non-toxic, well cp developed, well nourished. 18:05 Head/Face: Normocephalic, atraumatic. cp 18:05 Eyes: Periorbital structures: appear normal, Conjunctiva: normal, no exudate, no injection, Sclera: no appreciated abnormality, Lids and lashes: appear normal, bilaterally. 18:05 ENT: External ear(s): are unremarkable, Ear canal(s): are normal, clear, TM's: dullness, bilaterally, Nose: is normal, Mouth: Lips: moist, Oral mucosa: moist, Posterior pharynx: Airway: no evidence of obstruction, patent, Voice: is normal. 18:05 Neck: ROM/movement: is normal, is supple, without pain, no range of motions limitations, no nuchal rigidity. 18:05 Chest/axilla: Inspection: normal, Palpation: is normal, no crepitus, no tenderness. 18:05 Cardiovascular: Rate: normal, Rhythm: regular. 18:05 Respiratory: the patient does not display signs of respiratory distress, Respirations: normal, no use of accessory muscles, no retractions, labored breathing, is not present, Breath sounds: are clear throughout, no decreased breath sounds. 18:05 Abdomen/GI: Inspection: abdomen appears normal, Palpation: abdomen is soft and non-tender, in all quadrants. 18:05 Neuro: Orientation: to person, place \\T\\ time. Mentation: is normal, Cerebellar function: is grossly normal, Motor: moves all fours, strength is normal, Sensation: is normal. Vital Signs: 17:35 BP 177 / 108; Pulse 76; Resp 20; Temp 97.8; Pulse Ox 100% ; Weight 63.5 kg; Height 5 sv ft. 1 in. (154.94 cm); Pain 7/10; 18:58 BP 176 / 123; Pulse 77; Resp 18; ll1 19:07 BP 159 / 98; Pulse 67; Resp 18; ll1 19:45 BP 149 / 108; Pulse 63; Resp 16; Pulse Ox 100% on R/A; jb4 17:35 Body Mass Index 26.45 (63.50 kg, 154.94 cm) sv MDM: 17:51 Patient medically screened. cp 18:10 Differential diagnosis: cerebral vascular accident, hyponatremia, intracerebral cp hemorrhage, migraine, subarachnoid bleed, subdural hematoma, tension headache. 20:05 Data reviewed: vital signs, nurses notes, lab test result(s), radiologic studies, CT cp scan, and as a result, I will discharge patient. Counseling: I had a detailed discussion with the patient and/or guardian regarding: the historical points, exam findings, and any diagnostic results supporting the discharge/admit diagnosis, lab results, radiology results, the need for outpatient follow up, a family practitioner, to return to the emergency department if symptoms worsen or persist or if there are any questions or concerns that arise at home. ED course: VSS. Headache and nausea improved. Discussed elevated blood pressure and need for f/u with primary care physician. 05/01 17:53 Order name: CBC with Diff cp 05/01 18:46 Interpretation: Normal except: MCV 83.2; MCH 27.9; MICHAEL% 86.9; LYM% 9.0; MN% 2.6. 05/01 17:53 Order name: BMP; Complete Time: 18:46 cp 05/01 18:46 Interpretation: Normal except: BUN 22; CRE 1.38; GFR 45. cp 05/01 19:13 Order name: CT Head Brain wo Cont; Complete Time: 19:54 cp 05/01 19:54 Interpretation: Report reviewed. 05/01 17:53 Order name: IV; Complete Time: 18:03 cp 05/01 18:47 Order name: PO challenge; Complete Time: 18:58 cp Administered Medications: 18:12 Drug: Reglan 10 mg Route: IVP; Site: right antecubital; ll1 18:59 Follow up: Response: No adverse reaction; Pain is decreased; Nausea is decreased; RASS: ll1 Alert and Calm (0) 18:12 Drug: Zofran (Ondansetron) 4 mg Route: IVP; Site: right antecubital; ll1 18:58 Follow up: Response: No adverse reaction; Nausea is decreased; RASS: Alert and Calm (0) ll1 18:12 Drug: Benadryl 12.5 mg Route: IVP; Site: right antecubital; ll1 18:58 Follow up: Response: No adverse reaction; Pain is decreased; RASS: Alert and Calm (0) ll1 18:13 Drug: NS 0.9% 1000 ml Route: IV; Rate: 1 bolus; Site: right antecubital; ll1 20:29 Follow up: Response: No adverse reaction; IV Status: Order to discontinue infusion; IV jb4 Intake: 600ml Disposition: 05/02 15:53 Co-signature as Attending Physician, Solis Oswald MD I agree with the assessment and kdr plan of care. Disposition: 05/01/20 20:07 Discharged to Home. Impression: Headache, Hypertensive heart disease. - Condition is Stable. - Discharge Instructions: Migraine Headache, Hypertension, How to Take Your Blood Pressure, Bmxa-mi-Phpb. - Prescriptions for Fiorinal 50- 325-40 mg Oral Capsule - take 1 capsule by ORAL route every 4 hours As needed - not to exceed 6 capsules per day; 20 capsule. Zofran 4 mg Oral Tablet - take 1 tablet by ORAL route every 12 hours As needed; 20 tablet. - Medication Reconciliation Form, Thank You Letter, Antibiotic Education, Prescription Opioid Use form. - Follow up: Private Physician; When: 2 - 3 days; Reason: Recheck today's complaints. - Problem is new. - Symptoms have improved. Signatures: Dispatcher [employer] Maya Webber RN RN sv Solis Oswald MD MD kdr Javon Roy PA PA cp Bryson, James, RN RN jb4 Diego Mari RN RN ll1 Corrections: (The following items were deleted from the chart) 05/01 17:53 Urine Dipstick-Ancillary ordered. cp jb4 17:53 Urine Test ordered. cp jb4 : 20:07 05/01/2020 20:07 Discharged to Home. Impression: Headache; Hypertensive heart jb4 disease. Condition is Stable. Forms are Medication Reconciliation Form, Thank You Letter, Antibiotic Education, Prescription Opioid Use. Follow up: Private Physician; When: 2 - 3 days; Reason: Recheck today's complaints. Problem is new. Symptoms have improved. cp 05/02 19:04 05/01 17:51 The patient complains of pain to the top of head and forehead, cp cp
[2020-05-01 20:51] LABS: Blood Morphology Comment NOT SEEN (NOT SEEN); Platelet Estimate ADEQ; White Blood Cell Scan OK (OK)
[2020-05-01 20:58] VITALS: TEMP 97.8; O2SAT 100
[2020-05-01 21:02] VITALS: BP 149/108
== END 2020-05-01 20:30 | disposition home or self-care (01) ==
LOC: ER 17:31
DX: I11.9 Hypertensive heart disease without heart failure (principal); Z86.011 Personal history of benign neoplasm of the brain
CPT/HCPCS: 96361; 85025; 80048; 36415; 70450; 96375; 96374; 99284; J2765; J1200; J7030; J2405

== ENCOUNTER 2021-01-02 13:23 | Emergency (ER) | payer OTHER ==
--- OUTSIDE RECORDS SUMMARY | 2021-01-02 13:31 | XMS REPORT | Continuity of Care Document ---
:1990 Author Organization [facility] t Address 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 Allergies, Adverse Reactions, Alerts This patient has no known allergies or adverse reactions. Medications This patient has no known medications. Procedures This patient has no known procedures. Encounters Start End Encounter Admission Attending Care Care Encounter Source Date/Time Date/Time Type Type Clinicians Facility Department ID 2020-09-23 2020-09-23 Patient Cal [facility] [id number] 00:00:00 00:00:00 Outreach [facility] [id number] Kevan [facility] [id number] PAVILLION [id number] 2020-04-01 2020-04-01 Telephone Zo Harrisan [facility] [id number] 00:00:00 [facility]00[id number] [facility] [id number] MEDICINE [phone] [id number] 2020-03-31 2020-03-31 Telemedici Monica Harris [facility] [id number] 11:27:39 11:47:39 ne Visit Perez [facility] [id number] FAMILY [id number] MEDICINE [phone] RICHA 044 [facility] 2020-03-31 2020-03-31 Telephone Monica Harris [facility] [id number] 00:00:00 00:00:00 Perez HEALTH [id number] FAMILY [id number] MEDICINE [phone] RICHA [address] [place] [address] 2020-03-31 2020-03-31 Nurse YINA Mas [id number] 00:00:00 00:00:00 Triage Karolina [facility] [id number] [facility]PITAL [id number] 2020-01-23 2020-01-23 [facility] [id number] 08:10:46 08:25:46 Care Benigno PRIMARY [id number] CARE [id number] PAVILLION [id number] 2020-01-23 2020-01-23 Orders Doctor YINA [id number] 00:00:00 00:00:00 Only Unassigned, YOSEPH [id number] [facility] [id number] 2019-11-15 2019-11-15 Telemedici Sera [facility] [id number] 07:51:23 08:11:23 ne Visit Deb FAMILY [id number] Lashonda MEDICINE [id number] [facility] - [phone] [address] 2019-11-07 2019-11-07 Telephone Hunter [facility] [id number] 00:00:00 00:00:00 Mahogany Ng FAMILY [id number] MEDICINE [id number] [facility] - [phone] [address] 2019-11-02 2019-11-02 Emergency Naeem Solares TRAUMA 1.2.840 .[id number] 16:16:18 18:16:00 LopezSolis guillen NOVATO [id number] Results This patient has no known results.
--- NOTE | 2021-01-02 14:31 | ER ---
Nurse's Notes [facility] Name: Shaun Lopez Age: 30 yrs Sex: Female : 1990 Arrival Date: 01/02/2021 Time: 13:30 Bed 7 Private MD: Diagnosis: Acute upper respiratory infection, unspecified Presentation: 01/02 13:45 Chief complaint: Patient states: Cough, CONTRERAS, body aches, low grade fever, malaise since ll1 Tuesday night. Coronavirus screen: Client denies travel out of the [place] in the last 14 days. congestion, cough unrelated to allergies, fatigue, fever, headache, Client presents with at least one sign or symptom that may indicate coronavirus-19. Standard/surgical mask placed on the client. Ebola Screen: Patient denies travel to an Ebola-affected area in the 21 days before illness onset. Initial Sepsis Screen: Does the patient meet any 2 criteria? HR > 90 bpm. No. Patient's initial sepsis screen is negative. Does the patient have a suspected source of infection? Yes: Productive cough/pneumonia. Risk Assessment: Do you want to hurt yourself or someone else? Patient reports no desire to harm self or others. Onset of symptoms was December 31, 2020. 13:45 Method Of Arrival: Ambulatory ll1 13:45 Acuity: VERNA 3 ll1 Historical: - Allergies: 13:47 No Known Allergies; ll1 - PMHx: 13:47 "kidney issues"; brain tumor-removed; Hypertension; Migraines; Seizures; ll1 - PSHx: 13:47 brain SX x 2; ll1 - Immunization history:: Flu vaccine is not up to date. - Social history:: Smoking status: Patient denies any tobacco usage or history of. Screenin:14 Abuse screen: Denies threats or abuse. Denies injuries from another. Nutritional sv screening: No deficits noted. Tuberculosis screening: No symptoms or risk factors identified. Fall Risk None identified. Assessment: 14:14 General: Appears in no apparent distress. comfortable, slender, well developed, sv Behavior is calm, cooperative, appropriate for age, Reports fever for 1-2 days, feeling ill for 1-2 days, fatigue for 1-2 days. Pain: Complains of pain in head Pain currently is 4 out of 10 on a pain scale. Neuro: Level of Consciousness is awake, alert, obeys commands, Oriented to person, place, time, situation, Moves all extremities. Full function Gait is steady, Speech is normal, Reports headache. Respiratory: Reports cough that is non-productive, Airway is patent Respiratory effort is even, unlabored, Respiratory pattern is regular, symmetrical. Derm: Skin is intact, Skin is pink, warm \\T\\ dry. Vital Signs: 13:45 BP 173 / 128; Pulse 105; Resp 17; Temp 98.8(O); Pulse Ox 98% on R/A; Weight 64.41 kg; ll1 Height 5 ft. 1 in. (154.94 cm); Pain 4/10; 13:45 Body Mass Index 26.83 (64.41 kg, 154.94 cm) ll1 ED Course: 13:30 Patient arrived in ED. ds1 13:46 Triage completed. ll1 13:46 Arm band placed on Patient placed in an exam room, on a stretcher. 1 13:52 [facility] 13:52 Solis Oswald MD is Attending Physician. [facility] 13:52 Maya Wood RN is Primary Nurse. sv 14:14 Nurse Practitioner and/or Physician Chin Strap Maker to see patient. sv 14:14 Patient has correct armband on for positive identification. Bed in low position. Call sv light in reach. Door closed. Head of bed elevated. 14:44 No provider procedures requiring assistance completed. Patient did not have IV access sv during this emergency room visit. Administered Medications: No medications were administered Outcome: 14:30 Discharge ordered by . [facility] 14:44 Discharged to home ambulatory. sv 14:44 Condition: stable 14:44 Discharge instructions given to patient, Instructed on discharge instructions, follow up and referral plans. medication usage, Demonstrated understanding of instructions, follow-up care, medications, Prescriptions given X 3. 14:45 Patient left the ED. sv Signatures: Maya Wood, JERALD RN Jose Mcelroy PA PA jmm Sanford, Demi ds1 Diego Mari RN RN ll1
--- NOTE | 2021-01-02 14:31 | EDPHYS ---
Physician Documentation [facility] Name: Shaun Lopez Age: 30 yrs Sex: Female : 1990 Arrival Date: 01/02/2021 Time: 13:30 Bed 7 Private MD: ED Physician Solis Oswald HPI: 01/02 14:17 This 30 yrs old Female presents to ER via Ambulatory with complaints of jmm Cough, Body Aches. 14:17 The patient or guardian reports cough. Onset: The symptoms/episode began/occurred jmm gradually, 2 day(s) ago. Modifying factors: The symptoms are alleviated by nothing, the symptoms are aggravated by nothing. Associated signs and symptoms: Pertinent positives: fever, sore throat. The patient has experienced similar episodes in the past. This is a 30 year old female with a history of htn, migraines, that presents to the ED with complaints of cough, congestion, beginning 2 days ago. Son has similar symptoms. . Historical: - Allergies: 13:47 No Known Allergies; ll1 - PMHx: 13:47 "kidney issues"; brain tumor-removed; Hypertension; Migraines; Seizures; ll1 - PSHx: 13:47 brain SX x 2; ll1 - Immunization history:: Flu vaccine is not up to date. - Social history:: Smoking status: Patient denies any tobacco usage or history of. ROS: 14:17 Cardiovascular: Negative for chest pain, palpitations, and edema. jmm 14:17 Constitutional: Positive for body aches, fever. 14:17 ENT: Positive for sore throat. 14:17 Respiratory: Positive for cough. 14:17 All other systems are negative. Exam: 14:17 Constitutional: This is a well developed, well nourished patient who is awake, alert, jmm and in no acute distress. Head/Face: atraumatic. Eyes: EOMI, no conjunctival erythema appreciated 14:17 Chest/axilla: Normal chest wall appearance and motion. Cardiovascular: Regular rate and rhythm. No edema appreciated Respiratory: Normal respirations, no respiratory distress appreciated Abdomen/GI: Non distended, soft Back: Normal ROM Skin: General appearance color normal 14:17 ENT: TM's: are normal, Posterior pharynx: erythema, that is mild. 14:17 Musculoskeletal/extremity: ROM: intact in all extremities. 14:17 Skin: Appearance: Color: normal in color. 14:17 Neuro: Motor: is normal. 14:17 Psych: Behavior/mood is pleasant, cooperative. Vital Signs: 13:45 BP 173 / 128; Pulse 105; Resp 17; Temp 98.8(O); Pulse Ox 98% on R/A; Weight 64.41 kg; ll1 Height 5 ft. 1 in. (154.94 cm); Pain 4/10; 13:45 Body Mass Index 26.83 (64.41 kg, 154.94 cm) ll1 MDM: 14:17 Patient medically screened. [facility] 14:29 Data reviewed: vital signs, nurses notes. Counseling: I had a detailed discussion with [facility] the patient and/or guardian regarding: the historical points, exam findings, and any diagnostic results supporting the discharge/admit diagnosis, the need for outpatient follow up, to return to the emergency department if symptoms worsen or persist or if there are any questions or concerns that arise at home. ED course: Patient is alert and non toxic in appearance. Declined swabs. Patient will return to the ED if symptoms worsen. Patient understood and agrees with the plan of care. . Administered Medications: No medications were administered Disposition Summary: 01/02/21 14:30 Discharge Ordered Location: Home [facility] Condition: Stable [facility] Diagnosis - Acute upper respiratory infection, unspecified [facility] Followup: [facility] - With: Private Physician - When: 2 - 3 days - Reason: Recheck today's complaints, Continuance of care, Re-evaluation by your physician Discharge Instructions: - Discharge Summary Sheet [facility] - Upper Respiratory Infection, Adult [facility] Forms: - Medication Reconciliation Form [facility] - Thank You Letter [facility] - Antibiotic Education [facility] - Prescription Opioid Use [facility] Prescriptions: - albuterol sulfate 90 mcg/actuation Inhalation HFA aerosol inhaler - inhale 2 puff by INHALATION route every 4 hours; 1 Inhaler; Refills: 0, Product [facility] Selection Permitted - Prednisone 20 mg Oral Tablet - take 3 tablets by ORAL route once daily for 5 days; 15 tablet; Refills: 0, [facility] Product Selection Permitted - Zithromax Z-Chandra 250 mg Oral Tablet - take 1 tablet by ORAL route as directed for 5 days Day 1 - take two (2) tablets [facility] one time. Day 2, 3, 4 , 5 take one (1) tablet once daily.; 6 tablet; Refills: 0, Product Selection Permitted Addendum: 01/05/2021 13:46 Co-signature as Attending Physician, Solis Oswald MD I agree with the assessment and k dr plan of care. Signatures: Solis Oswald MD MD kdr Mickail, Joel, PA PA jmm Lewis, Lynsay RN RN ll1
[2021-01-02 14:50] VITALS: BP 173/128; TEMP 98.8; O2SAT 98
== END 2021-01-02 14:45 | disposition home or self-care (01) ==
LOC: ER 13:23
DX: J06.9 Acute upper respiratory infection, unspecified (principal); I10 Essential (primary) hypertension
CPT/HCPCS: 99282

== ENCOUNTER 2021-04-17 09:37 | Emergency (ER) | payer OTHER ==
[2021-04-17] MEDS ORDERED: METOCLOPRAMIDE 10 MG/2mL INJ ONE (10:45)
[2021-04-17] MEDS ORDERED: DIPHENHYDRAMINE 50 MG/ML VIAL ONE (10:45)
[2021-04-17] MEDS ORDERED: NA CHLORIDE 0.9% 1,000 ML ONE (10:46)
[2021-04-17] MEDS ORDERED: KETOROLAC 30 MG/ML INJ ONE (10:46)
--- NOTE | 2021-04-17 12:09 | EDPHYS ---
Physician Documentation [facility] Name: Shaun Lopez Age: 30 yrs Sex: Female : 1990 Arrival Date: 04/17/2021 Time: 09:41 Bed 27 Private MD: ED Physician Solis Oswald HPI: 04/17 12:06 This 30 yrs old Female presents to ER via Ambulatory with complaints of kb Vomiting, Headache. 12:06 The patient has not experienced similar symptoms in the past. The patient has not kb recently seen a physician. 12:07 The patient complains of pain to the top of head and forehead. The patient describes kb the headache as constant. Associated signs and symptoms: Pertinent positives: nausea, vomiting. Severity of symptoms: At its worst the pain was moderate, in the emergency department the pain is unchanged. Headache History: The patient has had previous headaches and this one is similar to previous episodes. The symptoms are alleviated by nothing. the symptoms are aggravated by nothing. 12:08 Onset: The symptoms/episode began/occurred yesterday. kb 12:08 Pt reports migraine that started yesterday. Feels similar to previous migraines.. 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 - Social history:: Smoking status: Patient denies any tobacco usage or history of. ROS: 12:05 Respiratory: Negative for shortness of breath, cough, wheezing, and pleuritic chest kb pain. 12:05 Constitutional: Positive for body aches. 12:05 Abdomen/GI: Positive for nausea and vomiting. 12:05 Neuro: Positive for headache. 12:06 All other systems are negative. kb Exam: 12:06 Constitutional: This is a well developed, well nourished patient who is awake, alert, kb and in no acute distress. Head/Face: Normocephalic, atraumatic. Eyes: Pupils equal round and reactive to light, extra-ocular motions intact. Lids and lashes normal. Conjunctiva and sclera are non-icteric and not injected. Cornea within normal limits. Periorbital areas with no swelling, redness, or edema. ENT: Moist Mucous membranes Respiratory: Respirations even and unlabored. No increased work of breathing, no retractions or nasal flaring. Skin: Warm, dry with normal turgor. Normal color. MS/ Extremity: Pulses equal, no cyanosis. Neurovascular intact. Full, normal range of motion. Neuro: Awake and alert, GCS 15, oriented to person, place, time, and situation. Moves all extremities. Normal gait. Psych: Awake, alert, with orientation to person, place and time. Behavior, mood, and affect are within normal limits. Vital Signs: 10:00 Pulse 91; Resp 17; Temp 99.4; Pulse Ox 100% ; Weight 58.97 kg; Height 5 ft. 1 in. jl7 (154.94 cm); Pain 8/10; 10:03 BP 209 / 151; jl7 11:19 BP 187 / 111; Pulse 69; Resp 17; Pulse Ox 100% on R/A; ap3 10:00 Body Mass Index 24.56 (58.97 kg, 154.94 cm) jl7 [place] Coma Score: 12:08 Eye Response: spontaneous(4). Verbal Response: oriented(5). Motor Response: obeys kb commands(6). Total: 15. MDM: 10:04 Patient medically screened. kb 12:04 Data reviewed: vital signs, nurses notes. Data interpreted: Pulse oximetry: on room air kb is 100 %. Interpretation: normal. Counseling: I had a detailed discussion with the patient and/or guardian regarding: the historical points, exam findings, and any diagnostic results supporting the discharge/admit diagnosis, lab results, the need for outpatient follow up, a family practitioner, to return to the emergency department if symptoms worsen or persist or if there are any questions or concerns that arise at home. Response to treatment: the patient's symptoms have markedly improved after treatment. 04/17 10:05 Order name: Flu; Complete Time: 10:59 kb 04/17 10:31 Order name: SARS-COV-2 RT PCR; Complete Time: 11:24 EDMS 04/17 10:05 Order name: IV Start; Complete Time: 10:18 kb Administered Medications: 10:28 Drug: Reglan (metoCLOPramide) 10 mg Route: IVP; Site: right antecubital; ap3 12:24 Follow up: Response: No adverse reaction ap3 10:28 Drug: Ketorolac 15 mg Route: IVP; Site: right antecubital; ap3 12:24 Follow up: Response: No adverse reaction ap3 10:28 Drug: Benadryl (diphenhydrAMINE) 12.5 mg Route: IVP; Site: right antecubital; ap3 12:24 Follow up: Response: No adverse reaction ap3 10:29 Drug: NS 0.9% 1000 ml Route: IV; Rate: 1000 ml; Site: right antecubital; ap3 12:24 Follow up: IV Status: Completed infusion ap3 Disposition: 13:10 Co-signature as Attending Physician, Solis Oswald MD I agree with the assessment and kdr plan of care. Disposition Summary: 04/17/21 12:09 Discharge Ordered Location: Home kb Condition: Stable kb Diagnosis - Migraine without aura, not intractable kb Followup: kb - With: Emergency Department - When: As needed - Reason: Worsening of condition Followup: kb - With: Private Physician - When: 2 - 3 days - Reason: Recheck today's complaints, Continuance of care, Re-evaluation by your physician Discharge Instructions: - Discharge Summary Sheet kb - Migraine Headache, [id number] kb Forms: - Medication Reconciliation Form kb - Thank You Letter kb - Antibiotic Education kb - Work release form kb - Prescription Opioid Use kb Signatures: Dispatcher [employer] EDMS Elsy Flores, BANQUET FOOD SERVER-C TIMOTHY-Solis Kim MD MD kdr Leal, Jahala, RN RN jl7 Dai Patiño RN RN ap3 Corrections: (The following items were deleted from the chart) 10:31 10:05 CORONAVIRUS+ ordered. EDMS EDMS
--- NOTE | 2021-04-17 12:09 | ER ---
Nurse's Notes [facility] Name: Shaun Lopez Age: 30 yrs Sex: Female : 1990 Arrival Date: 04/17/2021 Time: 09:41 Bed 27 Private MD: Diagnosis: Migraine without aura, not intractable Presentation: 04/17 10:00 Chief complaint: Patient states: N/V, CONTRERAS, body aches since yesterday. Coronavirus jl7 screen: headache, nausea, vomiting. Ebola Screen: No symptoms or risks identified at this time. Initial Sepsis Screen: Does the patient meet any 2 criteria? No. Patient's initial sepsis screen is negative. Does the patient have a suspected source of infection? No. Patient's initial sepsis screen is negative. Risk Assessment: Do you want to hurt yourself or someone else? Patient reports no desire to harm self or others. Onset of symptoms was April 16, 2021. Care prior to arrival: None. 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 - Social history:: Smoking status: Patient denies any tobacco usage or history of. Screenin:30 Abuse screen: Denies threats or abuse. Nutritional screening: Has had N/V for 3 or more ap3 days. Tuberculosis screening: No symptoms or risk factors identified. Fall Risk None identified. Assessment: 10:29 General: Appears uncomfortable, Behavior is cooperative, Reports chills for fever for ap3 feeling ill for fatigue for. Pain: Complains of pain in generalized body aches. Neuro: Level of Consciousness is awake, alert, obeys commands, Oriented to person, place, time, situation, Appropriate for age Moves all extremities. Gait is steady, Speech is normal. Cardiovascular: Capillary refill < 3 seconds Patient's skin is warm and dry. Respiratory: Airway is patent Respiratory effort is even, unlabored, Breath sounds are clear bilaterally. GI: Abdomen is flat, Bowel sounds present X 4 quads. Reports nausea, vomiting. 11:47 Reassessment: Patient and/or family updated on plan of care and expected duration. Pain ap3 level reassessed. Patient is alert, oriented x 3, equal unlabored respirations, skin warm/dry/pink. Vital Signs: 10:00 Pulse 91; Resp 17; Temp 99.4; Pulse Ox 100% ; Weight 58.97 kg; Height 5 ft. 1 in. jl7 (154.94 cm); Pain 8/10; 10:03 BP 209 / 151; jl7 11:19 BP 187 / 111; Pulse 69; Resp 17; Pulse Ox 100% on R/A; ap3 10:00 Body Mass Index 24.56 (58.97 kg, 154.94 cm) jl7 [place] Coma Score: 12:08 Eye Response: spontaneous(4). Verbal Response: oriented(5). Motor Response: obeys kb commands(6). Total: 15. ED Course: 09:41 Patient arrived in ED. mr 09:46 Solis Oswald MD is Attending Physician. kdr 10:01 Triage completed. jl7 10:01 Elsy Flores FNP-C is [facility] kb 10:01 Arm band placed on right wrist. jl7 10:05 Dai Patiño, JERALD is Primary Nurse. ap3 10:18 COVID swab sent to lab. Flu and/or RSV swab sent to lab. Inserted saline lock: 20 gauge ap3 in right antecubital area, using aseptic technique. Blood collected. 10:31 Patient has correct armband on for positive identification. Call light in reach. Side ap3 rails up X2. Pulse ox on. NIBP on. Door closed. Noise minimized. 12:22 No provider procedures requiring assistance completed. IV discontinued, intact, ap3 bleeding controlled, No redness/swelling at site. Pressure dressing applied. Administered Medications: 10:28 Drug: Reglan (metoCLOPramide) 10 mg Route: IVP; Site: right antecubital; ap3 12:24 Follow up: Response: No adverse reaction ap3 10:28 Drug: Ketorolac 15 mg Route: IVP; Site: right antecubital; ap3 12:24 Follow up: Response: No adverse reaction ap3 10:28 Drug: Benadryl (diphenhydrAMINE) 12.5 mg Route: IVP; Site: right antecubital; ap3 12:24 Follow up: Response: No adverse reaction ap3 10:29 Drug: NS 0.9% 1000 ml Route: IV; Rate: 1000 ml; Site: right antecubital; ap3 12:24 Follow up: IV Status: Completed infusion ap3 Outcome: 12:09 Discharge ordered by . silvestre 12:23 Discharged to home ambulatory. ap3 12:23 Condition: good 12:23 Discharge instructions given to patient, Instructed on discharge instructions, follow up and referral plans. Demonstrated understanding of instructions, follow-up care. 12:23 Patient left the ED. ap3 Signatures: Elsy Flores, COIL ASSEMBLER-C TIMOTHY-CkSolis Quesada MD MD kdr Rivera, Mary mr Leal, Jahala, RN RN jl7 Dai Patiño RN RN ap3
[2021-04-17 12:30] VITALS: TEMP 99.4; O2SAT 100
[2021-04-17 12:33] VITALS: BP 187/111
== END 2021-04-17 12:23 | disposition home or self-care (01) ==
LOC: ER 09:37
DX: G43.009 Migraine without aura, not intractable, without status migrainosus (principal); I10 Essential (primary) hypertension; Z20.822 Contact with and (suspected) exposure to COVID-19
CPT/HCPCS: 96361; 87804 ×2; 96375; 96374; 99284; U0003; J2765; J1200; J7030

== ENCOUNTER 2021-05-07 07:39 | Inpatient (IN) | payer OTHER, SELFPAY ==
[2021-05-07] MEDS ORDERED: cloNIDine HCL 0.1 MG TAB ONE (08:14)
[2021-05-07 08:36] LABS: Absolute Lymphocytes (CBC) 1.2 K/uL (0.7-4.9); Basophils % 0.7 % (0-1.3); Hematocrit 17.8 % (36.0-45.0); Lymphocytes % 11.7 % (15.3-44.8); MPV 8.3 fL (7.6-11.3); RBC Red Blood Cell Count 2.06 M/uL (3.86-4.86)
[2021-05-07 08:48] LABS: Potassium 3.8 mmol/L (3.5-5.1); Troponin (Emerg Dept Use Only) 0.07 ng/mL (0.0-0.045)
[2021-05-07 08:52] LABS: Protime INR 1.03
--- NOTE | 2021-05-07 10:00 | RAD REPORT ---
EXAM DESCRIPTION: CT - Head Brain Wo Cont - 05/07/2021 9:24 am CLINICAL HISTORY: Headache COMPARISON: 2019 TECHNIQUE: Computed axial tomography of the head was obtained. IV contrast was not requested. All CT scans are performed using dose optimization technique as appropriate and may include automated exposure control or mA/KV adjustment according to patient size. FINDINGS: 4 centimeter low-density area right frontal lobe unchanged having the appearance of of gli osis. The patient has had a mass removed from this region. Evaluation for subtle recurrent neoplasm i s difficult without IV contrast. The ventricles are normal in caliber. No extra-axial fluid collection is noted. Fluid within the right maxillary sinus IMPRESSION: No acute intracranial abnormality is seen. If patient's symptoms persist MRI of the bra in would be recommended. Fluid within the right maxillary sinus may indicate acute sinusitis
--- NOTE | 2021-05-07 10:00 | RAD REPORT ---
EXAM DESCRIPTION: Sajan Single View05/07/2021 8:48 am CLINICAL HISTORY: Shortness of breath COMPARISON: none FINDINGS: Mild to moderate bilateral pulmonary opacities. Heart is normal size IMPRESSION: Mild to moderate bilateral pulmonary opacities probably pneumonia
--- NOTE | 2021-05-07 10:13 | ER ---
Nurse's Notes [facility] Name: Shaun Lopez Age: 30 yrs Sex: Female : 1990 Arrival Date: 05/07/2021 Time: 07:42 Bed 13 Private MD: Diagnosis: Acute kidney failure, unspecified;Anemia, unspecified;Thrombocytopenia, unspecified;Essential (primary) hypertension;Acute pulmonary edema Presentation: 05/07 07:53 Chief complaint: Patient states: "I just feel short of breath and I feel like I haven't aa5 slept in a few days". Pt states "I have bruises all over and I don't know where they are coming from". PT reports symptoms began 1 week ago. Coronavirus screen: shortness of breath. Ebola Screen: No symptoms or risks identified at this time. Initial Sepsis Screen: Does the patient meet any 2 criteria? RR > 20 per min. HR > 90 bpm. Yes Does the patient have a suspected source of infection? No. Patient's initial sepsis screen is negative. Risk Assessment: Do you want to hurt yourself or someone else? Patient reports no desire to harm self or others. Onset of symptoms was April 2021. 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 - Social history:: Smoking status: Patient denies any tobacco usage or history of. - Family history:: not pertinent. - Hospitalizations: : No recent hospitalization is reported. Screenin:19 Abuse screen: Denies threats or abuse. Denies injuries from another. Nutritional jt3 screening: No deficits noted. Tuberculosis screening: No symptoms or risk factors identified. Fall Risk None identified. Assessment: 08:19 General: Appears uncomfortable, Behavior is cooperative, anxious. Pain: Denies pain. jt3 Neuro: Reports headache in entire weakness. Cardiovascular: Rhythm is sinus tachycardia Chest pain is denied. Respiratory: Breath sounds are clear bilaterally. GI: Patient currently denies abdominal pain, bloating, bloody stool, diarrhea, rectal bleeding. : No deficits noted. EENT: No deficits noted. Derm: Reports Pt. has several bruised all over body, mainly on her legs. Denies abuse and feels safe at home. Musculoskeletal: Reports Pt. reports "pain in bones." Pt. also endorses generalized weakness. 08:56 Reassessment: Critical lab value reported by Head Concierge Jan Mendoza --- D-dimer cc4 = 1643. 10:45 Reassessment: Pt. resting in bed. States her headache is better. Blood pressure has jt3 improved after the clonidine. Alert and oriented x4. Airway patent. . 13:23 Reassessment: Pt. transported to ultrasound. . jt3 14:27 Reassessment: Patient appears in no apparent distress at this time. Patient and/or iw family updated on plan of care and expected duration. Pain level reassessed. Patient is alert, oriented x 3, equal unlabored respirations, skin warm/dry/pink. assisted lab with blood draw. 15:02 Reassessment: Patient appears in no apparent distress at this time. Patient and/or iw family updated on plan of care and expected duration. Pain level reassessed. Patient is alert, oriented x 3, equal unlabored respirations, skin warm/dry/pink. pt transported to OR via wheelchair, labetalol infusion sent with RN, will speak with anesthesia about initiating. 17:02 Reassessment: pt remains in OR, will be admitted to ICU Hold when she returns to ER. iw Vital Signs: 07:53 BP 232 / 163; Pulse 112; Resp 24 S; Temp 98.6(TE); Pulse Ox 100% on R/A; Weight 61.23 aa5 kg (R); Height 5 ft. 1 in. (154.94 cm) (R); 08:51 BP 228 / 145; Pulse 98; Resp 17; Pulse Ox 97% on R/A; jt3 09:23 BP 212 / 140; jt3 10:04 BP 196 / 132; Pulse 80; Pulse Ox 100% on R/A; jt3 10:45 BP 191 / 130; Pulse 80; Resp 15; Pulse Ox 100% on R/A; jt3 11:12 BP 161 / 118; Pulse 68; Resp 14; Pulse Ox 100% on R/A; jt3 13:11 BP 206 / 137; Pulse 87; Resp 15; Pulse Ox 95% on R/A; jt3 07:53 Body Mass Index 25.51 (61.23 kg, 154.94 cm) aa5 ED Course: 07:42 Patient arrived in ED. as 07:51 Arm band placed on. aa5 07:56 Triage completed. aa5 07:59 Blayne Barclay MD is Attending Physician. rn 08:10 Lamont Mena RN is Primary Nurse. jt3 08:19 Patient has correct armband on for positive identification. Bed in low position. Call jt3 light in reach. Side rails up X2. 08:19 No provider procedures requiring assistance completed. Inserted saline lock: 20 gauge jt3 in right antecubital area, using aseptic technique. 08:48 XRAY Chest (1 view) In Process Unspecified. EDMS 09:03 Notified ED physician of a critical lab result(s). Dr Barclay notified of critical lab cc4 results - D-Dimer 1643 , which was reported by Lab techician Jan Mendoza. 09:24 CT Head Brain wo Cont In Process Unspecified. EDMS 10:11 María Elena Rothman MD is Hospitalizing Provider. rn 14:27 Renal Ultrasound-Complete In Process Unspecified. EDMS 05/09 02:20 Primary Nurse role handed off by Lamont Mena, JERALD tt3 Administered Medications: 05/07 08:19 Drug: cloNIDine 0.2 mg Route: PO; jt3 09:54 Follow up: Response: No adverse reaction; Blood pressure is lowered jt3 Outcome: 10:12 Decision to Hospitalize by Provider. rn 05/09 11:47 Patient left the ED. eb Signatures: Dispatcher [employer] EDMS Yoana Watters Irene, RN RN iw Blayne Barclay MD MD rn Calderon, Audri, RN RN aa5 Radha Go Tyler tt3 Ranjana Faustin RN RN cc4 Lamont Mena RN RN jt3 Corrections: (The following items were deleted from the chart) 05/07 07:56 07:53 61.23 kg Reported; Height 5 ft. 1 in. Reported; BMI: 25.5; aa5 aa5 07:57 07:53 Initial Sepsis Screen: Does the patient meet any 2 criteria? HR > 90 bpm. Does aa5 the patient have a suspected source of infection? No. Patient's initial sepsis screen is negative. aa5
--- NOTE | 2021-05-07 10:13 | EDPHYS ---
Physician Documentation [facility] Name: Shaun Lopez Age: 30 yrs Sex: Female : 1990 Arrival Date: 05/07/2021 Time: 07:42 Bed 13 Private MD: ED Physician Blayne Barclay HPI: 05/07 08:46 This 30 yrs old Female presents to ER via Ambulatory with complaints of Pain rn All Over - bruising, Weakness, Shortness Of Breath. 08:47 The patient has shortness of breath at rest, with light activity. Onset: The rn symptoms/episode began/occurred 2 week(s) ago. Duration: The symptoms are intermittent. The patient's shortness of breath is aggravated by exertion, light activity, is alleviated by nothing. Associated signs and symptoms: Pertinent negatives: fever, hemoptysis, loss of consciousness, vomiting. Severity of symptoms: At their worst the symptoms were moderate in the emergency department the symptoms are unchanged. The patient has not experienced similar symptoms in the past. The patient has not recently seen a physician. Patient reports approximately 2 weeks of shortness of breath, fatigue and noticing bruising all over her body in the absence of trauma. Has never had any sort of blood cell problems and no family history of hematologic cancers or problems. Denies any active bleeding but does report history of heavy menstrual periods. Denies any fever or recent illness. Denies any weight loss.. 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 - Social history:: Smoking status: Patient denies any tobacco usage or history of. - Family history:: not pertinent. - Hospitalizations: : No recent hospitalization is reported. ROS: 08:47 Constitutional: Negative for fever, chills, and weight loss, Eyes: Negative for injury, rn pain, redness, and discharge, ENT: Negative for injury, pain, and discharge, Neck: Negative for injury, pain, and swelling, Cardiovascular: Negative for chest pain, palpitations, and edema, Respiratory: Positive for shortness of breath Abdomen/GI: Negative for abdominal pain, nausea, vomiting, diarrhea, and constipation, Back: Negative for injury and pain, : Negative for injury, bleeding, discharge, and swelling, MS/Extremity: Negative for injury and deformity, Skin: Positive for bruising Neuro: Positive for weakness Exam: 08:47 Constitutional: This is a well developed, well nourished patient who is awake, alert, rn and in no acute distress. Ambulatory to room without difficulty. Appears pale Head/Face: Normocephalic, atraumatic. Eyes: Periorbital areas with no swelling, redness, or edema. ENT: Moist mucous membranes Cardiovascular: Tachycardic, regular. No pulse deficits Respiratory: Mild tachypnea, no retractions Abdomen/GI: Soft, non-tender Skin: Warm, dry, multiple ecchymosis on extremities. MS/ Extremity: Pulses equal, no cyanosis. Neurovascular intact. Full, normal range of motion. Equal circumference. Neuro: Awake and alert, GCS 15, oriented to person, place, time, and situation. Cranial nerves II-XII grossly intact. Motor strength 5/5 in all extremities. Sensory grossly intact. Cerebellar exam normal. Normal gait. 16:04 ECG was reviewed by the Attending Physician. rn Vital Signs: 07:53 BP 232 / 163; Pulse 112; Resp 24 S; Temp 98.6(TE); Pulse Ox 100% on R/A; Weight 61.23 aa5 kg (R); Height 5 ft. 1 in. (154.94 cm) (R); 08:51 BP 228 / 145; Pulse 98; Resp 17; Pulse Ox 97% on R/A; jt3 09:23 BP 212 / 140; jt3 10:04 BP 196 / 132; Pulse 80; Pulse Ox 100% on R/A; jt3 10:45 BP 191 / 130; Pulse 80; Resp 15; Pulse Ox 100% on R/A; jt3 11:12 BP 161 / 118; Pulse 68; Resp 14; Pulse Ox 100% on R/A; jt3 13:11 BP 206 / 137; Pulse 87; Resp 15; Pulse Ox 95% on R/A; jt3 07:53 Body Mass Index 25.51 (61.23 kg, 154.94 cm) aa5 MDM: 07:59 Patient medically screened. rn 10:08 Differential diagnosis: Anemia Pneumothorax pulmonary edema, volume overload, acute rn kidney failure, thrombocytopenia, anemia. Data reviewed: vital signs, nurses notes, lab test result(s), radiologic studies, CT scan, and as a result, I will admit patient. Data interpreted: athletic monitor: rate is 80 beats/min, rhythm is normal sinus rhythm, regular, with no ectopy, Interpretation: normal rate, normal rhythm, Pulse oximetry: on room air is 100 %. Interpretation: normal. Counseling: I had a detailed discussion with the patient and/or guardian regarding: the historical points, exam findings, and any diagnostic results supporting the discharge/admit diagnosis, lab results, radiology results, the need for further work-up and treatment in the hospital. Response to treatment: the patient's symptoms have mildly improved after treatment, and as a result, I will admit patient. Admission orders: after a detailed discussion of the patient's condition and case, the admit orders are written by me. 05/07 08:10 Order name: CBC with Diff; Complete Time: 19:06 rn 05/07 08:10 Order name: Basic Metabolic Panel; Complete Time: 09: rn 05/07 08:10 Order name: Protime (+inr); Complete Time: : rn 05/07 08:10 Order name: Ptt, Activated; Complete Time: : rn 05/07 08:10 Order name: BNP; Complete Time: 09: rn 05/07 08:10 Order name: Troponin (emerg Dept Use Only); Complete Time: 09: rn 05/07 08:10 Order name: Fibrinogen; Complete Time: : rn 05/07 08:10 Order name: D-Dimer; Complete Time: 09: rn 05/07 08:11 Order name: COVID-19 SARS RT PCR (Document "Date of Onset" if Symptomatic); Complete rn Time: 09:43 05/07 08:11 Order name: Urine Microscopic Only; Complete Time: 15:47 rn 05/07 10:30 Order name: CBC Smear Scan; Complete Time: 19:06 EDAK 05/07 12:29 Order name: Slides for Pathologist Review EDAK 05/07 13:06 Order name: Creatine Phosphokinase; Complete Time: 15:47 EDAK 05/07 13:06 Order name: Ferritin; Complete Time: 15:47 EDMS 05/07 13:06 Order name: Folic Acid, (Folate); Complete Time: 15:47 EDMS 05/07 13:06 Order name: Iron; Complete Time: 15:47 EDMS 05/07 13:06 Order name: PTH Intact; Complete Time: 15:47 EDMS 05/07 13:06 Order name: Renal Panel EDMS 05/07 13:06 Order name: Renal Panel EDMS 05/07 13:06 Order name: Renal Panel EDMS 05/07 13:06 Order name: Renal Panel EDMS 05/07 13:06 Order name: Renal Panel EDMS 05/07 13:06 Order name: Renal Panel EDMS 05/07 13:06 Order name: YUMIKO IFA Screen w/Reflex EDMS 05/07 13:06 Order name: Anti-Double Strand DNA Antibod EDMS 05/07 13:06 Order name: C-ANCA Anti-Proteinase 3 EDMS 05/07 13:06 Order name: Complement C3 EDMS 05/07 13:06 Order name: Complement C4 EDMS 05/07 13:07 Order name: Glomerular Basement Membrane EDMS 05/07 13:07 Order name: Hep B Core Ab, Tot/reflex IgM EDMS 05/07 13:07 Order name: Hep B Surface AG w/ Confirm EDMS 05/07 13:07 Order name: Hepatitis B Surface Ab,Quant EDMS 05/07 13:07 Order name: Hepatitis B Surface Antibody EDMS 05/07 13:07 Order name: Hepatitis C RNA, Quant (PCR) EDMS 05/07 13:07 Order name: Retic Count; Complete Time: 15:47 EDMS 05/07 13:07 Order name: Rheumatoid Factor; Complete Time: 19:06 EDMS 05/07 13:07 Order name: Thyroid Stimulating Hormone; Complete Time: 15:47 EDMS 05/07 13:07 Order name: Transferrin Sat/Iron Binding; Complete Time: 19:06 EDMS 05/07 13:07 Order name: Ur Protein EDMS 05/07 13:07 Order name: Uric Acid; Complete Time: 19:06 EDMS 05/07 13:07 Order name: P-ANCA Anti-Myeloperoxidase Ab EDMS 05/07 13:07 Order name: Protein C Antigen EDMS 05/07 13:07 Order name: Protein Electo w/M Carlos Serum EDMS 05/07 13:07 Order name: Protein S (Total EDMS 05/07 13:07 Order name: Vitamin D,1,25 Dihydroxy EDMS 05/07 13:08 Order name: Urine Drug Screen; Complete Time: 15:47 EDMS 05/07 13:12 Order name: Type And Screen 05/07 13:25 Order name: Liver (Hepatic) Function; Complete Time: 15:47 EDMS 05/07 13:25 Order name: Lactic Dehydrogenase; Complete Time: 15:47 EDAK 05/07 13:25 Order name: HIV AG/AB, 4th Gen W/ Reflex EDAK 05/07 13:26 Order name: Haptoglobin EDAK 05/07 13:31 Order name: Direct Antiglobulin Test EDAK 05/07 14:10 Order name: Urine Dipstick-Ancillary; Complete Time: 15:47 EDAK 05/07 14:10 Order name: Urine --Ancillary (enter results); Complete Time: 15:47 em 05/07 14:53 Order name: Urine Culture EDAK 05/07 08:10 Order name: IV Start; Complete Time: 08:14 rn 05/07 08:10 Order name: EKG; Complete Time: 08:11 rn 05/07 08:10 Order name: EKG - Nurse/Tech; Complete Time: 08:30 rn 05/07 08:10 Order name: XRAY Chest (1 view); Complete Time: 10:06 rn 05/07 08:11 Order name: Urine Dipstick-Ancillary (obtain specimen); Complete Time: 14:10 rn 05/07 08:11 Order name: Urine Test (obtain specimen); Complete Time: 14:10 rn 05/07 08:46 Order name: CT Head Brain wo Cont; Complete Time: 10:06 rn 05/07 13:07 Order name: Renal Ultrasound-Complete; Complete Time: 15:47 EDAK 05/07 13:44 Order name: NPO; Complete Time: 14:26 iw 05/07 15:43 Order name: CONS Physician Consult EDMS 05/07 15:43 Order name: Comprehensive Metabolic Panel EDMS 05/07 15:43 Order name: Comprehensive Metabolic Panel; Complete Time: 19:06 EDMS 05/07 15:43 Order name: CONS Physician Consult EDAK 05/07 15:43 Order name: Regular EDAK 05/07 15:43 Order name: CBC with Automated Diff EDMS 05/07 15:43 Order name: CBC with Automated Diff; Complete Time: 19:06 EDMS 05/07 17:40 Order name: RAD; Complete Time: 19:06 EDMS 05/07 19:41 Order name: RAD; Complete Time: 19:06 EDMS 05/07 20:46 Order name: Miscellaneous Test Lab; Complete Time: 19:06 EDMS 05/08 05:11 Order name: Phosphorus; Complete Time: 19:06 EDMS 05/08 05:11 Order name: Vitamin B12 Level; Complete Time: 19:06 EDMS 05/08 13:54 Order name: Miscellaneous Test Lab; Complete Time: 19:06 EDMS 05/08 15:53 Order name: Hemoglobin; Complete Time: 19:06 EDMS 05/08 15:53 Order name: Hematocrit; Complete Time: 19:06 EDMS 05/08 17:13 Order name: US; Complete Time: 19:06 EDMS 05/09 07:13 Order name: Magnesium EDMS 05/09 11:31 Order name: CBC without Diff EDMS EC:04 Rate is 86 beats/min. Rhythm is regular. Left axis deviation noted. QRS is positive in rn lead I and negative in lead aVF. FL interval is normal. QRS interval is normal. QT interval is normal. No Q waves. T waves are Normal. No ST changes noted. Clinical impression: NSR w/ Non-specific ST/T Changes. Interpreted by me. Reviewed by me. Administered Medications: 08:19 Drug: cloNIDine 0.2 mg Route: PO; jt3 09:54 Follow up: Response: No adverse reaction; Blood pressure is lowered jt3 Disposition Summary: 05/07/21 10:12 Hospitalization Ordered Hospitalization Status: Inpatient Admission rn Provider: María Elena Rothman rn Condition: Stable rn Problem: new rn Symptoms: have improved rn Bed/Room Type: Standard rn Location: [facility] ER HOLD(05/07/21 16:12) iw Room Assignment: ERHOLD-(05/07/21 16:12) iw Diagnosis - Acute kidney failure, unspecified rn - Anemia, unspecified rn - Thrombocytopenia, unspecified rn - Essential (primary) hypertension rn - Acute pulmonary edema rn Forms: - Medication Reconciliation Form rn - SBAR form rn Signatures: Dispatcher [employer] EDAK Beryl Berrios, RN RN iw Blayne Barclay MD MD rn Martinez, Eric em1 Guerline Conklin, RN RN aa5 Lamont Mena RN RN jt3 Corrections: (The following items were deleted from the chart) 09:08 08:11 Chest For PE Angio+CT.RAD.BRZ ordered. EDMS EDMS 12:30 12:29 Bilirubin Direct ordered. EDMS EDMS 13:22 13:07 HIV (1 ordered. EDMS EDMS 13:25 12:29 Lactic Dehydrogenase ordered. EDMS EDMS 13:25 12:29 Liver (Hepatic) Function ordered. EDMS EDMS 13:26 12:30 Haptoglobin ordered. EDMS EDMS 13:30 12:29 Antibody Screen ordered. EDMS EDMS 13:30 12:29 Direct Antiglobulin Test ordered. EDMS EDMS 15:11 10:12 rn em1 16:12 10:12 Telemetry/MedSurg (Inpatient) rn iw 16:12 15:11 222 em1 iw 16:12 16:12 iw
[2021-05-07 10:30] LABS: Platelet Estimate DECR; White Blood Cell Scan OK (OK)
--- NOTE | 2021-05-07 13:54 | CON ---
Date of Consultation: 05/07/2021 Reason For Consultation: Elevated BUN and creatinine. History Of Present Illness: This is a pleasant 30-year-old female with significant past medical hist ory of hypertension, migraine, bronchial asthma. According to the patient, the patient was in her [facility] for the last 1 week. The patient started having bruises on the lower extremiti es without any trauma. The patient started feeling weak. For that reason, reported to the emergency room. Upon arrival to the emergency room, primary workup showed severe anemia down to the hemoglobi n 6 with thrombocytopenia, platelets of 93. The patient had BUN of 104, creatinine 16. For that loraine son, we have been consulted. The patient denied taking any nonsteroidal. No recent exposure to anti biotic. No contrast. The patient denied any joint pain, but the patient had generalized body ache. No fever. No chills. The patient denied any joint problem. No mouth ulcer noted. No photosensiti vity. Reviewing the record for the patient back in April 2020; creatinine 1.3, GFR 45. Back in 2017; creatinine 1.1, GFR of 60. Back in April 2020; hemoglobin 12.2, platelet 325. Past Medical History: Includes; 1.Hypertension. 2.Hyperlipidemia. 3.Bronchial asthma. 4.Brain tumor with removal back in 2006, benign according to the patient. No chemo or radiation. Allergies: NO KNOWN DRUG ALLERGIES. Past Surgical History: Brain surgery. Home Medications: Include lisinopril. Family History: Negative for any autoimmune disease. Positive for hypertension. Review of Systems: Head and neck: Has headache. GI: No nausea. No vomiting. Decreased appetite. No hematochezia. No blood in the stool. 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 : No polyuria. No dysuria. No hematuria. Respiratory: No shortness of breath. No cough. No hemoptysis. Cardiovascular: No chest pain. Endocrine: No polydipsia. Skin: No rash. Neuro: Generalized body ache. Musculoskeletal: Body ache. Physical Examination: Vital Signs: When I saw the patient; blood pressure 187/111, pulse of 69, afebrile. Chest: Clear to auscultation. Heart: S1, S2. Regular. Abdomen: Soft, nontender. Skin: Has bruises on the lower extremity, has purpura on the upper chest and neck. Joint Exam: No inflammation on any joint. Neurological: Alert, oriented x3. No focal. Laboratory Data: WBC 10.3, H and H 6/17.8, platelets 93. Sodium 138, potassium 3.8, bicarb 17, chlo ride 106, BUN 104, creatinine 16, GFR of 3, calcium 8.3. BNP . test is positive . Urinalysis; +2 protein. Assessment And Plan: 1.Acute kidney injury with the presence of thrombocytopenia. LFT within normal limit with positive hCG to rule out HELLP/HUS. I am going to send for full serology and start controlling the blood pres sure because the patient can be eclampsia. We will consult Surgery for dialysis catheter placement. Discussed with the patient option of treatment with needing dialysis. The patient agreed. Our diff erential diagnosis;. a.HELLP. b.HUS. c.Eclampsia with the presence of high blood pressure. I am going to send for full serology. Initia te dialysis. Control blood pressure very well with goal of systolic of 160 currently. I spoke with the lab to check on haptoglobin and schistocyte, and we will follow up the patient closely. We will consider starting the patient on Solu-Medrol. Depending on the finding, I am going to send also for LDH. d.We will quantify the protein creatinine and we will send for renal ultrasound and abdominal ultras ound to evaluate the . 2.Hypertension with the presence of acute kidney injury and positive test to rule out any eclampsia. We are going to start the patient on drip and we will follow up. We will start the patie nt on labetalol drip given the question demond of the . We will send for protein creatinine. 3.Thrombocytopenia, severe anemia with the presence of thrombocytopenia and renal failure. As above , we will send for the workup. We will prepare the patient for transfusion. Time spent examining the patient [id number], placing orders, discussing the case with other subspec ialty including Surgery and hospitalist, discussing the case with the nursing 75 minutes. EDD Voice ID: [id number] Report ID: [id number]
[2021-05-07] MEDS ORDERED: LABETALOL HCL 200 MG in D5W 60 ML IV SCH (14:00)
[2021-05-07 14:10] LABS: Urine Blood 2+ (Negative); Urine Glucose Negative (Negative); Urine Protein 3+ (Negative)
[2021-05-07 14:46] LABS: Barbiturates NEGATIVE (NEGATIVE); Benzodiazepines NEGATIVE (NEGATIVE); Cocaine NEGATIVE (NEGATIVE); METHAMPHETAM NEGATIVE (NEGATIVE); Methadone NEGATIVE (NEGATIVE); Opiates NEGATIVE (NEGATIVE); Phencyclidine NEGATIVE (NEGATIVE); THC Cannibis NEGATIVE (NEGATIVE)
[2021-05-07 14:49] LABS: Urine Bacteria >50 /HPF (<20); Urine RBC NONE SEEN /HPF (NONE SEEN)
[2021-05-07 15:01] LABS: RBC Red Blood Cell Count 1.69 M/uL (3.86-4.86)
[2021-05-07] MEDS ORDERED: NA CHLORIDE 0.9% 500 ML ONE ×2 (15:03→15:37)
[2021-05-07] MEDS ORDERED: LABETALOL 20 MG/4ML SYRINGE IV ONE (15:07)
[2021-05-07] MEDS ORDERED: NS 0.9% VIAL 10 ML ONE (15:19)
[2021-05-07] MEDS ORDERED: HEPARIN 5000 UNIT/ML 1 ML VIAL ONE (15:20)
[2021-05-07] MEDS ORDERED: LIDOCAINE 1% MPF 30 ML VIAL ONE (15:20)
[2021-05-07] MEDS ORDERED: NA CHLORIDE 0.9% 100 ML IV ONE (15:20)
[2021-05-07] MEDS ORDERED: HYDRALAZINE HCL 20 MG/ML VIAL ONE (15:21)
--- NOTE | 2021-05-07 15:28 | RAD REPORT ---
EXAM DESCRIPTION: US - Renal Ultrasound-Complete - 05/07/2021 2:27 pm CLINICAL HISTORY: YOKASTA COMPARISON: No comparisons FINDINGS: Increased echogenicity of the kidneys bilaterally. No hydronephrosis. No masses are identi fied. The right kidney measures 8.8 cm in long axis. The left kidney measures 9 cm in long axis. No s tones are identified. IMPRESSION: Increased echogenicity of the kidneys consistent with medical renal disease. No hydronep hrosis.
[2021-05-07 15:33] LABS: ALT/SGPT 9 U/L (12-78); AST/SGOT 8 U/L (15-37); Albumin 2.9 g/dL (3.4-5.0); Alkaline Phosphatase 37 U/L (45-117); Bilirubin Direct < 0.1 mg/dL (0-0.2); Bilirubin Total 0.3 mg/dL (0.2-1.0); Creatine Phosphokinase 100 U/L (26-192); Ferritin 91.3 ng/mL (8-388); Folic Acid, (Folate) 7.8 ng/mL (3.1-17.5); Protein, Total 5.9 g/dL (6.4-8.2); Thyroid Stimulating Hormone 0.963 uIU/mL (0.360-3.740)
[2021-05-07] MEDS ORDERED: MORPHINE 2 MG/ML SYR IV PRN (15:36)
[2021-05-07] MEDS ORDERED: ACETAMINOPHEN 500 MG TAB PO PRN (15:36)
[2021-05-07] MEDS ORDERED: GLYCOPYRROLATE 0.2 MG/ML SYR ONE (15:44)
[2021-05-07] MEDS: NA CHLORIDE 0.9% 1,000 ML IV SCH (16:00)
[2021-05-07 16:12] LABS: Rheumatoid Factor NEG (NEG)
[2021-05-07] MEDS ORDERED: CEFAZOLIN/NS 1gm 1 GM/50 ML BAG ONE (16:25)
[2021-05-07 16:27] LABS: Blood Morphology Comment NOTED (NOT SEEN); Burr Cells FEW; Hypochromasia 1+; Poikilocytosis 1+
[2021-05-07] MEDS ORDERED: FENTANYL CITR 100 MCG/2 ML ONE (16:40)
[2021-05-07] MEDS ORDERED: MIDAZOLAM HCL 2 MG/2 ML INJ ONE (16:40)
--- NOTE | 2021-05-07 17:14 | P.OP ---
Polymer Chemist: NONE,NONE Preoperative diagnosis: ARF Postoperative diagnosis: same Primary procedure: Right Subclavian Live Catheter Secondary procedure: Fluoroscopy Anesthesia: MAC Estimated blood loss: min Specimen: none Findings: Hematoma right neck Complications: None Transferred to: Recovery Room Condition: Fair
--- NOTE | 2021-05-07 17:15 | P.PN ---
Date of Service: 05/07/21 Possible TMA/HUS. Start IV pulse steroid via Solumedrol 250 mg IV q6h x 12 doses. Will need renal biopsy.
--- NOTE | 2021-05-07 17:39 | RAD REPORT ---
EXAM DESCRIPTION: RAD - Chest Single View - 05/07/2021 5:33 pm CLINICAL HISTORY: S/P Live catheter COMPARISON: Chest Single View dated 05/07/2021 FINDINGS: Basilar airspace disease is similar to 05/07/2021 . Interval placement of a right subclavi an approach dialysis catheter with tip overlying the superior cavoatrial junction in satisfactory pos ition. No pneumothorax . IMPRESSION: Dialysis catheter tip in satisfactory position overlying the superior cavoatrial junctio n. No pneumothorax.
[2021-05-07] MEDS: METHYLPREDNISOLONE 125 MG INJ IV SCH (18:00)
[2021-05-07] MEDS ORDERED: MANNITOL 25% 12.5 GM/50 ML VIAL IV PRN (18:00)
[2021-05-07] MEDS ORDERED: MANNITOL 25% 100 ML IV ONE (18:03)
[2021-05-07] MEDS ORDERED: NA CHLORIDE 0.9% 250 ML ONE (19:00)
--- NOTE | 2021-05-07 19:40 | RAD REPORT ---
EXAM DESCRIPTION: RAD - Fluoroscopy <1 Hour - 05/07/2021 5:47 pm CLINICAL HISTORY: LAUREANO CATHETER COMPARISON: No comparisons FINDINGS/IMPRESSION: Two intraoperative fluoroscopic images submitted demonstrating placement of a r ight subclavian approach dialysis catheter. The tip overlies the right atrium. Fluoro time: 0.2 minutes
--- NOTE | 2021-05-07 20:16 | P.CNS ---
Date of Consult: 05/07/21 (Hematology) Hematology consulted for evaluation of anemia with thrombocytopenia. Chart, labs and presentation reviewed, discussed with Dr Rothman and Dr Tello. Patient with severe anemia of 6gm, thrombocytopenia of 93,000, acute renal failure with Bun 104/ Creat 16, LDH 543, Retic 3.5%/ RBC 1.69. D Dimers 1600. Normal Tbili and indirect bili. Smear shows only 1-2 schistocytes per HPF. Transfuse prbc to keep Hb > 8gm. cbc, retic ct, LDH, CMP bid. Please send for [id number] activity. Follow up Haptoglobin, DAVONTE. Complete anemia work up including monoclonal and autoimmune etiology, flow cytometry, smear eval by path. Patient being prepared for hemodialysis. Though the rare schistocytes and current findings could be from malignant hypertension, there is possibility of HUS or Atypical HUS. Does not appear to be TTP at this time. Given the possibility of microangiopathy hemolytic anemia/ atypical HUS until proven otherwise, it is ideal patient is transferred to a tertiary facility for further work up and evaluation in the event she might need plasmapheresis or complement directed therapy.
--- NOTE | 2021-05-07 20:24 | PREOPCON ---
Date Of Procedure: 05/07/2021. Chief Complaint: Needs urgent dialysis. History Of Present Illness: The patient is a 30-year-old female, who came to the emergency room with feeling weak, having bruises on her extremities without any history of trauma and which she came to the emergency room. Her hemoglobin was very low at 6. Platelets were 93. BUN was 104. Creatinine was 16. Dr. Tello contacted me and she needs urgent dialysis, and therefore I saw the patient. S he was in some distress with complaining of abdominal pain, but no nausea or vomiting at this time. No sore throat, runny nose, cough, headaches, or dizziness. No chest pain. No fever or chills. She is moaning with the abdominal pain and she has no other complaints at this time. Review of Systems: Otherwise unremarkable. Past Medical History: Hypertension, hyperlipidemia, asthma, and brain tumor 14 years ago. Past Surgical History: Brain surgery. Allergies: NO ALLERGIES. Medications: Include lisinopril. Family History: Significant for hypertension. Social History: She currently does not smoke or drink alcohol. Physical Examination: Vital Signs: Pulse rate of 80, respiratory rate of 18, blood pressure is 206/104, and sats are 100 o n oxygen. General: She is awake and alert. Head and Neck: No neck masses. No JVD. Throat clear. Neck is supple. Chest: Clear. Heart: S1 and S2. Abdomen: Soft, nondistended, and nontender. Positive bowel sounds. Extremities: Neurovascularly intact. Neuro: Nonfocal. Laboratory Data: Her white count is 7.3, RBCs are 2.06, hemoglobin is 6, hematocrit is 17.8, and gavin telet count 93. Her retic count is 3.37. Chemistry reviewed. Her CO2 is 17, BUN is 104, and creati nine is 16. The renal ultrasound reviewed and shows increased echogenicity consistent with medical r enal disease, no hydro. Assessment: Acute renal failure - the patient with anemia and thrombocytopenia. Recommendations: We will proceed with placement of a Live catheter for urgent dialysis. The claudia ent understands the risks, benefits, and alternatives and agrees to procedure. /MODL Voice ID: [id number] Report ID: [id number]
[2021-05-07] MEDS ORDERED: ONDANSETRON 4 MG/2 ML VIAL ONE (20:58)
[2021-05-07] MEDS: ONDANSETRON 4 MG/2 ML VIAL IV PRN (21:02)
--- NOTE | 2021-05-07 23:07 | OP ---
Date of Procedure: 05/07/2021 Surgeon: Christoph Roberts MD Recreation Clerk: None. Preoperative Diagnosis: Acute renal failure. Postoperative Diagnosis: Acute renal failure. Procedures: 1.Placement of right subclavian Live catheter. 2.Interpretation of intraoperative fluoroscopy. Estimated Blood Loss: Minimal. Specimen: None. Findings: After the first in the right neck, a hematoma formed because of her low platele ts and therefore that side was aborted and the right subclavian was utilized for temporary dialysis c atheter. Anesthesia: MAC. Complication: None. Disposition: The patient tolerated the procedure in stable condition and taken to Recovery in fair c ondition. Procedure In Detail: The patient was brought to the OR and placed in supine position. MAC anesthesi a was begun. The patient was prepped and draped in usual sterile fashion. Lidocaine 1% infiltrated locally. An 18-gauge needle used to access the right IJ vein. However, I was unable to pass the wir e and as I tried to get another pass at the vein to try it again, the patient started to have a small hematoma in the region and I was concerned as her platelets were low, so I applied pressure to that area and at this point, the hematoma was stable. Because of the hematoma, I opted to use the right s ubclavian vein which was accessed with an 18-gauge needle easily and guidewire passed, position confi rmed with fluoroscopy. Seldinger technique used. Vein dilated and tip of the catheter placed in the right side of the circulatory system under fluoroscopy and then catheter was flushed with heparin an d packed with heparin and secured to the chest wall with 3-0 nylon. Sterile dressing applied. The p atient was awakened and taken to Recovery in good general condition. Chest x-ray has been ordered. /MODL Voice ID: [id number] Report ID: [id number]
[2021-05-08] MEDS ORDERED: METHYLPREDNISOLONE 40 MG INJ ONE (00:50)
[2021-05-08] MEDS ORDERED: MORPHINE 2 MG/ML SYR ONE (01:33)
[2021-05-08] MEDS ORDERED: ONDANSETRON 4 MG/2 ML VIAL ONE ×2 (01:38→07:39)
[2021-05-08] MEDS: ONDANSETRON 4 MG/2 ML VIAL IV PRN ×2 (01:39→07:42)
[2021-05-08] MEDS: NA CHLORIDE 0.9% 1,000 ML IV SCH ×2 (02:00→12:00)
--- NOTE | 2021-05-08 02:01 | P.HP ---
Certification for Inpatient Patient admitted to: Inpatient With expected LOS: >2 Midnights Patient will require the following post-hospital care: None Practitioner: I am a practitioner with admitting privileges, knowledge of patient current condition, hospital course, and medical plan of care. Services: Services provided to patient in accordance with Admission requirements found in Title 42 Section 412.3 of the Code of Federal Regulations Patient History Date of Service: 05/07/21 Reason for admission: ACUTE KIDNEY INJURY; HEMOLYTIC ANEMIA; THROMBOCYTOPENIA History of Present Illness: PATIENT IS A 30-YEAR-OLD FEMALE WHO WAS ADMITTED TO THE HOSPITAL BECAUSE SHE HAS BEEN HAVING SOME BRUISING AND PERSISTENT HEADACHES. THE HEADACHES HAS BEEN ON AND OFF FOR MANY YEARS. HOWEVER RECENTLY HER MIGRAINES HAVE BEEN GETTING WORSE. SHE HAS ALSO BEEN COMPLAINING OF BRUISING WHICH HAS BEEN GOING ON OF THE LOWER EXTREMITIES. PATIENT BLOOD PRESSURE IS ALSO BEEN ELEVATED. PATIENT CAME INTO THE ER FOR FURTHER EVALUATION. IN THE EMERGENCY ROOM PATIENT WAS FOUND HAVE A ELEVATED BUN AND CREATININE. SPOKE TO NEPHROLOGY AND THEY RECOMMENDED HEMODIALYSIS. PATIENT WAS ALSO SEVERELY ANEMIC WITH A HEMOGLOBIN OF 6 AND A PLATELET COUNT IN THE 90S DIALYSIS. SPOKE TO HEMATOLOGY AND CONCERN FOR ATYPICAL HEMOLYTIC UREMIC SYNDROME. PATIENT MAY NEED TO BE TRANSFER TO TERTIARY CARE FACILITY. WE HAVE INITIATED HEMODIALYSIS. THIS IS STARTING THIS EVENING. THIS WILL PROBABLY PROCEED FOR THE NEXT 3-4 HR WHILE PATIENT GETS BLOOD TRANSFUSION. WILL DISCUSS THE CASE WITH THE TRANSFER CENTER AT [facility] OR [facility]. Allergies No Known Allergies Allergy (Unverified 11/11/11 20:43) - Past Medical/Surgical History -: MIGRAINE HEADACHE -: HYPERTENSION - Family History Father Family History: Reviewed- Non-Contributory - Social History Smoking Status: Current every day smoker Alcohol use: No CD- Drugs: No Review of Systems 10-point ROS is otherwise unremarkable Physical Examination - Vital Signs Temperature: 98.2 F Blood Pressure: 133/81 Pulse: 84 Respirations: 16 Pulse Ox (%): 96 - Physical Exam General: Alert, In no apparent distress, Oriented x3 HEENT: Atraumatic, PERRLA, Mucous membr. moist/pink, EOMI, Sclerae nonicteric Neck: Supple, 2+ carotid pulse no bruit, No LAD, Without JVD or thyroid abnormality Respiratory: Clear to auscultation bilaterally, Diminished Cardiovascular: Regular rate/rhythm, Normal S1 S2, Systolic murmur Gastrointestinal: Normal bowel sounds, Soft and benign, Non-distended, No tenderness Musculoskeletal: No clubbing, No swelling, No tenderness Integumentary: Other (BRUISING OF THE LOWER EXTREMITY) Neurological: Normal gait, Normal speech, Normal strength at 5/5 x4 extr, Normal tone, Sensation intact, Cranial nerves 3-12 intact, Normal affect Lymphatics: No axilla or inguinal lymphadenopathy - Studies Laboratory Data (last 24 hrs) 05/07/21 14:26: Total Bilirubin 0.3, AST 8 L, ALT 9 L, Alkaline Phosphatase 37 L 05/07/21 12:27: Total Bilirubin Cancelled, AST Cancelled, ALT Cancelled, Alkaline Phosphatase Cancelled 05/07/21 08:15: PT 11.9, INR 1.03, APTT 29.5 05/07/21 08:15: Sodium 138, Potassium 3.8, BUN 104 H, Creatinine 16.00 H*, Glucose 104 05/07/21 08:15: WBC 10.30, Hgb 6.0 L*, Hct 17.8 L*, Plt Count 93 L* Assessment & Plan - Problems (Diagnosis) (1) Hemolytic anemia Current Visit: Yes Status: Acute (2) Thrombocytopenia Current Visit: Yes Status: Acute (3) Acute kidney injury Current Visit: Yes Status: Acute (4) HUS (hemolytic uremic syndrome), atypical Current Visit: Yes Status: Acute (5) Migraine headache Current Visit: Yes Status: Acute (6) HTN (hypertension) Current Visit: Yes Status: Acute Qualifiers: Hypertension type: primary hypertension Qualified Code(s): I10 - Essential (primary) hypertension (7) UTI (urinary tract infection) Current Visit: Yes Status: Acute Qualifiers: Urinary tract infection type: acute cystitis - Plan PLAN: 1. HEMODIALYSIS PER NEPHROLOGY RECOMMENDATION 2. APPRECIATE GENERAL SURGERY CONSULTATION FOR LAUREANO CATHETER PLACEMENT 3. HEMATOLOGY CONSULTATION AND WILL GO AHEAD AND GET LABS DRAWN 4. CONTINUE WITH IV STEROIDS 5. CONTINUE WITH ANTIBIOTIC THERAPY 6. TRANSFUSE 2 UNITS OF PACKED RED BLOOD CELLS 7. GI AND DVT PROPHYLAXIS Discharge Plan: Home Plan to discharge in: Greater than 2 days - Advance Directives Does patient have a Living Will: No Does patient have a Durable POA for Healthcare: No - Code Status/Comfort Care Code Status Assessed: Yes Code Status: Full Code Critical Care: No Time Spent Managing PTS Care (In Minutes): 45
[2021-05-08 04:34] LABS: Absolute Lymphocytes (CBC) 0.5 K/uL (0.7-4.9); Basophils % 0.6 % (0-1.3); Lymphocytes % 6.4 % (15.3-44.8); MPV 9.2 fL (7.6-11.3); RBC Red Blood Cell Count 2.29 M/uL (3.86-4.86)
[2021-05-08 04:36] LABS: Hematocrit 19.5 % (36.0-45.0)
[2021-05-08 05:10] LABS: Albumin 2.7 g/dL (3.4-5.0); Bilirubin Total 0.5 mg/dL (0.2-1.0); Phosphorus 6.5 mg/dL (2.5-4.9); Potassium 4.1 mmol/L (3.5-5.1); Protein, Total 5.5 g/dL (6.4-8.2); Uric Acid 4.9 mg/dL (2.6-6.0)
[2021-05-08] MEDS: METHYLPREDNISOLONE 125 MG INJ IV SCH ×2 (06:00)
[2021-05-08] MEDS ORDERED: DIPHENHYDRAMINE 50 MG/ML VIAL IV ONE (08:20)
[2021-05-08] MEDS ORDERED: HYDROCORTISONE SUC 100 MG INJ IV ONE (08:20)
--- NOTE | 2021-05-08 08:25 | P.PN ---
Subjective Date of Service: 05/09/21 Chief Complaint: ACUTE KIDNEY INJURY; HEMOLYTIC ANEMIA; THROMBOCYTOPENIA Subjective: Other (Pt seen/examined while on HD. She was asleep during my eval/visit.) Physical Examination - Vital Signs Temperature: 98.0 F Blood Pressure: 135/81 Pulse: 80 Respirations: 11 Pulse Ox (%): 96 - Physical Exam General: Other (Appears as her stated age) HEENT: Atraumatic, Normocephalic Neck: Supple, JVD not distended Respiratory: Other (Symmetric chest expansion) Cardiovascular: No rubs, No murmurs Gastrointestinal: Soft and benign, Non-distended Musculoskeletal: No clubbing, No swelling Integumentary: Other (Normal temp) Neurological: Other (Non-focal) Urinary: Other (No bladder distention) External genitalia: Deferred Rectal: Deferred - Studies Laboratory Data (last 24 hrs) 05/07/21 14:26: Total Bilirubin 0.3, AST 8 L, ALT 9 L, Alkaline Phosphatase 37 L 05/07/21 12:27: Total Bilirubin Cancelled, AST Cancelled, ALT Cancelled, Alkaline Phosphatase Cancelled 05/07/21 08:15: PT 11.9, INR 1.03, APTT 29.5 05/07/21 08:15: Sodium 138, Potassium 3.8, BUN 104 H, Creatinine 16.00 H*, Glucose 104 05/07/21 08:15: WBC 10.30, Hgb 6.0 L*, Hct 17.8 L*, Plt Count 93 L* Assessment And Plan - Plan # YOKASTA, unclear etiology, ddx include ATN + TMA Baseline SCr 1.0-1.4 as of Apr 2020 Urinalysis showed +blood but no hematuria, 3+proteinuria, +pyuria F/u random urine chem + UPCR, UCx CPK wnl, no rhabdo PTH sig elevated at 279; renal US showing relatively smaller kidneys--> possible advanced CKD vs subacute YOKASTA at baseline from uncontrolled Htn HD started on 05/07 HD today & tomorrow Monitor I/O, renal panel Will need renal biopsy when BP better controlled & Hgb closer to 10, ideally before PLEX is started. 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 +anemia, peripheral bld smear +some schistocystes & bernadette cells, + thrombocytopenia, renal failure, LFT unremarkable, no fever, no seizure, mental status ok Hx of pre-eclampsia 4 years ago & had uncontrolled Htn since then Urine test neg F/u serologies & [id number] level & inhibitor Continue steroid pulse x 3d, started on 05/08 pRBC transfusion today Fibrinogen & INR at goal currently; monitor Start PLEX DALE # Premature uncontrolled Htn Hx of pre-eclampsia w/ her 2nd 4 yrs ago; since then SBPs have been 200-240 mmHg despite being on 2 anti-Htn meds BP above goal Renal doppler US showed no e/o MELLY F/u plasma renin & plasma aldosterone level Start Amlodipine 10 mg po daily Cont Metoprolol 50 mg po bid Labetalol 10 mg IV q4h prn for SBP > 160 mmHg Avoid Hydralazine d/t DITMA risk Mom reports she is on 2 home BP meds. Labetalol listed as home med. F/u further info on 2nd BP med. # Acidosis Correction via HD # HyperPO4 Correction via HD # Secondary hyperPTH Start Calcitriol 0.25 mcg po daily F/u serum 25OHD level # Dispo Awaiting transfer to another tertiary hospital to start plasmapheresis dale +/- Eculizumab later.
[2021-05-08] MEDS: NA CHLORIDE 0.9% IV SCH ×3 (08:39→18:23)
[2021-05-08] MEDS: METHYLPRED NA SUC IV SCH ×3 (08:39→18:23)
[2021-05-08] MEDS ORDERED: NA CHLORIDE 0.9% 250 ML IV SCH (09:00)
--- NOTE | 2021-05-08 09:15 | P.PN ---
Subjective Date of Service: 05/08/21 Initiated transfer; this is in case we need plasmapheresis HD today; transfuse today; hemodynamic stable Physical Examination - Vital Signs Temperature: 98.0 F Blood Pressure: 135/81 Pulse: 80 Respirations: 11 Pulse Ox (%): 96 - Studies Laboratory Data (last 24 hrs) 05/07/21 14:26: Total Bilirubin 0.3, AST 8 L, ALT 9 L, Alkaline Phosphatase 37 L 05/07/21 12:27: Total Bilirubin Cancelled, AST Cancelled, ALT Cancelled, Alkaline Phosphatase Cancelled 05/07/21 08:15: WBC 10.30, Hgb 6.0 L*, Hct 17.8 L*, Plt Count 93 L* Assessment & Plan - Problems (Diagnosis) (1) Hemolytic anemia Current Visit: Yes Status: Acute (2) Thrombocytopenia Current Visit: Yes Status: Acute (3) Acute kidney injury Current Visit: Yes Status: Acute (4) HUS (hemolytic uremic syndrome), atypical Current Visit: Yes Status: Acute (5) Migraine headache Current Visit: Yes Status: Acute (6) HTN (hypertension) Current Visit: Yes Status: Acute Qualifiers: Hypertension type: primary hypertension Qualified Code(s): I10 - Essential (primary) hypertension (7) UTI (urinary tract infection) Current Visit: Yes Status: Acute Qualifiers: Urinary tract infection type: acute cystitis - Plan PLAN: 1. HEMODIALYSIS PER NEPHROLOGY RECOMMENDATION 2. APPRECIATE GENERAL SURGERY CONSULTATION FOR LAUREANO CATHETER PLACEMENT 3. HEMATOLOGY CONSULTATION AND WILL GO AHEAD AND GET LABS DRAWN 4. CONTINUE WITH IV STEROIDS 5. CONTINUE WITH ANTIBIOTIC THERAPY 6. TRANSFUSE 2 UNITS OF PACKED RED BLOOD CELLS 7. GI AND DVT PROPHYLAXIS - Advance Directives Does patient have a Living Will: No Does patient have a Durable POA for Healthcare: No - Code Status/Comfort Care Code Status: Full Code
[2021-05-08] MEDS ORDERED: PROMETHAZINE INJ 25 MG/ML AMP IV ONE (09:31)
[2021-05-08] MEDS ORDERED: PROMETHAZINE INJ 25 MG/ML AMP ONE (09:37)
[2021-05-08] MEDS ORDERED: NA CHLORIDE 0.9% 250 ML ONE (09:49)
[2021-05-08] MEDS ORDERED: DIPHENHYDRAMINE 50 MG/ML VIAL ONE (10:01)
[2021-05-08] MEDS ORDERED: HYDROCORTISONE SUC 100 MG INJ ONE (10:01)
[2021-05-08] MEDS ORDERED: ACETAMINOPHEN 500 MG TAB ONE (14:54)
[2021-05-08 15:31] LABS: Hematocrit 29.4 % (36.0-45.0)
[2021-05-08] MEDS ORDERED: METOPROLOL TAR 50 MG TAB ONE (16:49)
[2021-05-08] MEDS: METOPROLOL TAR 50 MG TAB PO SCH (17:11)
--- NOTE | 2021-05-08 17:12 | RAD REPORT ---
EXAM DESCRIPTION: US - Abdomen Pelvis Scan US - 05/08/2021 3:07 pm CLINICAL HISTORY: Uncontrolled Htn, assess for renal artery stenosis COMPARISON: Renal Ultrasound-Complete dated 05/07/2021 FINDINGS: Increased echogenicity of the kidneys bilaterally consistent medical renal disease. The ri ght kidney measures 8.6 cm in long axis. Left kidney measures 9.2 cm. Normal waveforms and flow veloc ities are present within the bilateral renal arteries. Trace fluid adjacent to the liver. IMPRESSION: No evidence of renal artery stenosis.
[2021-05-08] MEDS: LABETALOL 20 MG/4ML SYRINGE IV PRN (21:00)
[2021-05-08] MEDS ORDERED: LABETALOL 20 MG/4ML SYRINGE IV ONE ×2 (21:09→23:14)
--- NOTE | 2021-05-08 21:30 | P.CNS ---
Date of Consult: 05/08/21 (Hematology) REASON for consult: Anemia and thrombocytopenia: Hematology consulted for evaluation of anemia with thrombocytopenia. HPI: 30 year old female with PMH of uncontrolled hypertension p/w fatigue, feeling unwell and headaches. In the ER patient was noted to be severely anemic with Hb 6gm, thrombocytopenia with plt ct at 93,000, acute renal failure with Bun 104/ Creat 16, LDH 594, Retic 3.5%/ RBC 1.69. D Dimers 1600. Normal Tbili and indirect bili. Smear shows only 1-2 schistocytes per HPF. Patient was seen by Nephrology and hemodialysis has been initiated. WHen seen today, patient appeared lethargic. She had just got phenergan. Answers to simple questions. Denies pain, cheat pain, rash, wt loss, fevers, chills, night sweats. NOted easy bruising on the legs recently. No petechiae or purpura. No trauma. No new medications. Unclear if she was compliant with her antiHTN meds. History later received that had pre-eclampsia in her last and has been on 2 meds- Labetolol and another medicine (but not sure the name). ROS as above PMH: HTN, migraines PSH: unknown SH: SMoker, denies drug abuse and alcohol FH: Unknown EXAM: Vitals: Hemodynamically stable (BP trend reviewed) 150/90 now. Skin, Hair & Nails: old ecchomoses on the legs. no petechiae/ purpura, No open wounds. Head: normocephalic, atraumatic. Eyes: anicteric, no injection of conjunctivae; + pallor Ears: grossly intact Nose: nares patent. Throat: no erythema, no exudate. Neck: neck supple, without lymphadenopathy. Respiratory: good respiratory effort, clear to auscultation; no wheezing. Cardiovascular: regular rate and rhythm, no murmurs, no cyanosis. Abdomen: bowel sounds present and equal in all four quadrants, abdomen is soft, nontender, non-distended, no masses, no hepatosplenomegaly. Peripheral Vascular: no edema, no calf tenderness Neuro: AAOx3, moves all extremities. Lymph: no palpable supraclavicular, submental, cervical, axillary, inguinal LAD Labs: reviewed as above. DAVONTE negative Haptoglobin, ADAMTS 13 and flow cytometry pending. Assessment/ Plan : 30 year old woman with PMH of uncontrolled HTN, p/w headaches, fatigue, in acute renal failure, hypertensive emergency, severe anemia and thrombocytopenia. Hb 6gm, thrombocytopenia with plt ct at 93,000, acute renal failure with Bun 104/ Creat 16, LDH 594, Retic 3.5%/ RBC 1.69/ RDW 16.3. D Dimers 1600. Normal Tbili and indirect bili. Smear shows only 1-2 schistocytes per HPF. 1. R/o TMA: Though the rare schistocytes and current findings could be from malignant hypertension, there is possibility of HUS or Atypical HUS or DITMA. Does not appear to be TTP I feel the findings might be due to Malignant hypertension. Repeat plt count with slight improvement to 95K today. But given the fact of suspicion of possible MAHA, it is prudent to transfer to a tertiary center which has access to plasma exchange or if treatment with complement directed therapy is needed. Kidney biopsy will add information to differentiate from each entity. Discussed case at length with Nephrology and hospitalist service. For now, pt to c/w supportive care She has already been started on steroids. Transfuse prbc to keep Hb > 8gm. cbc, retic ct, LDH, CMP bid. F/u [id number] activity. Follow up Haptoglobin, DAVONTE. Complete anemia work up including monoclonal and autoimmune etiology, flow cytometry, smear eval by path. 2. Acute on chronic renal failure: Managed by Nephrology. Once diagnosis is confirmed, if the anemia is from anemia from chronic kidney disease, she will benefit from EPO agents. 3. HTN: On labetolol drip. Seems to have brought down to a reasonable range at this time. Need more info on her antiHTN meds. We will continue to follow. Please call me if any concerns or change in status of patient.
[2021-05-09] MEDS: NA CHLORIDE 0.9% IV SCH ×3 (00:13→11:20)
[2021-05-09] MEDS: METHYLPRED NA SUC IV SCH ×3 (00:13→11:20)
[2021-05-09] MEDS: LABETALOL 20 MG/4ML SYRINGE IV PRN (01:03)
[2021-05-09] MEDS ORDERED: LABETALOL 20 MG/4ML SYRINGE IV ONE (01:36)
[2021-05-09] MEDS ORDERED: D5W 100 ML IV ONE (01:37)
[2021-05-09] MEDS ORDERED: LABETALOL HCL 200 MG in D5W 60 ML IV SCH ×2 (02:00→09:00)
[2021-05-09 05:15] VITALS: BMI 25.1
[2021-05-09] MEDS ORDERED: METOPROLOL TAR 50 MG TAB ONE (06:27)
[2021-05-09] MEDS: METOPROLOL TAR 50 MG TAB PO SCH (06:28)
[2021-05-09 06:40] LABS: Phosphorus 4.7 mg/dL (2.5-4.9); Potassium 4.4 mmol/L (3.5-5.1)
[2021-05-09] MEDS ORDERED: AMLODIPINE 10 MG TAB PO ONE (07:00)
[2021-05-09] MEDS ORDERED: AMLODIPINE 10 MG TAB ONE (08:02)
[2021-05-09 08:12] VITALS: TEMP 98; O2SAT 94
[2021-05-09] MEDS ORDERED: CALCITROL 0.25 MCG CAP PO ONE (08:49)
--- NOTE | 2021-05-09 08:55 | P.PN ---
Subjective Date of Service: 05/09/21 Chief Complaint: ACUTE KIDNEY INJURY; HEMOLYTIC ANEMIA; THROMBOCYTOPENIA today was able to tolerate diet yesterday still anuric will send for SEQUEIRA 13 HD today awaiting transfer Physical exam general: AAOX3, in moderate distress Neck; Supple, No elevated JVD hear: RRR, normal S1,2 no murmur or rub Chest: CTAB, no rales or wheezes Abdomen: Soft , Nt Extremities : No edema A/P # YOKASTA, unclear etiology, ddx include ATN + TMA Baseline SCr 1.0-1.4 as of Apr 2020 Urinalysis showed +blood but no hematuria, 3+proteinuria, +pyuria CPK wnl, no rhabdo PTH sig elevated at 279; renal US showing relatively smaller kidneys--> possible advanced CKD vs subacute YOKASTA at baseline from uncontrolled Htn HD started on 05/07 HD today Monitor I/O, renal panel Will need renal biopsy when BP better controlled # 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 +anemia, peripheral bld smear +some schistocystes & bernadette cells, + thrombocytopenia, renal failure, LFT unremarkable, no fever, no seizure, mental status ok Hx of pre-eclampsia 4 years ago & had uncontrolled Htn since then Urine test neg F/u serologies & [id number] level & inhibitor Continue steroid pulse x 3d, started on 05/08 pRBC transfusion today Fibrinogen & INR at goal currently; monitor # Premature uncontrolled Htn Hx of pre-eclampsia w/ her 2nd 4 yrs ago; since then SBPs have been 200-240 mmHg despite being on 2 anti-Htn meds BP above goal Renal doppler US showed no e/o MELLY F/u plasma renin & plasma aldosterone level Amlodipine 10 mg po daily Cont Metoprolol 50 mg po bid Labetalol 10 mg IV q4h prn for SBP > 160 mmHg Avoid Hydralazine d/t DITMA risk Mom reports she is on 2 home BP meds. Labetalol listed as home med. F/u further info on 2nd BP med. # Acidosis Correction via HD # HyperPO4 Correction via HD # Secondary hyperPTH Start Calcitriol 0.25 mcg po daily F/u serum 25OHD level # Dispo Awaiting transfer to another tertiary hospital to start plasmapheresis +/- Eculizumab later. Physical Examination - Vital Signs Temperature: 98 F Blood Pressure: 168/108 Pulse: 88 Respirations: 13 Pulse Ox (%): 94 - Studies Microbiology Data (last 24 hrs): 05/07/21 14:03 Clean Catch Urine Lowman Count - Final BETWEEN 10,000 & 100,000 CFU/ML 05/07/21 14:03 Clean Catch Urine - Final MIXED SHARONA.
[2021-05-09] MEDS ORDERED: CALCITROL 0.25 MCG CAP PO SCH (09:00)
[2021-05-09] MEDS ORDERED: AMLODIPINE 10 MG TAB PO SCH (09:00)
[2021-05-09] MEDS ORDERED: NIFEdipine 10 MG CAP ONE (09:16)
[2021-05-09] MEDS: NIFEDIPINE XL 60 MG TABLET PO SCH ×2 (09:17→10:22)
[2021-05-09 11:30] LABS: Hematocrit 28.1 % (36.0-45.0); MPV 9.7 fL (7.6-11.3); RBC Red Blood Cell Count 3.24 M/uL (3.86-4.86)
[2021-05-09 11:39] VITALS: BP 141/95
[2021-05-11 15:08] LABS: Hepatitis C Virus RNA (PCR)log <1.18 log IU/mL
[2021-05-11 15:31] LABS: HIV AG/AB 4TH GEN Non-reactive (Non-reactive)
--- NOTE | 2021-05-11 18:36 | EKG ---
Test Date: 2021-05-07 Test Time: 08:19:55 Scheduling Agent: YESSICA MEASUREMENT RESULTS: Intervals: Rate: 86 VT: 138 QRSD: 82 QT: 378 QTc: 452 [place]: P: 72 VT: 138 QRS: -40 T: 60 INTERPRETIVE STATEMENTS: Normal sinus rhythm Possible Left atrial enlargement Left axis deviation Left ventricular hypertrophy Abnormal ECG No previous ECG available for comparison Electronically Signed On 05-11-21 18:24:54 ROLLER EMBOSSER by Peter Gill
[2021-05-12 12:10] LABS: KAPPA LIGHT CHAIN, FREE SERUM 127.7 mg/L (3.3-19.4)
[2021-05-12 12:41] LABS: Protein C Antigen 91 % (70-140)
[2021-05-13 05:24] LABS: Albumin, (SPE) 3.3 g/dL (3.8-4.8); Alpha-1-Globulins 0.4 g/dL (0.2-0.3); Alpha-2-Globulins 0.5 g/dL (0.5-0.9); Gamma Globulins 0.7 g/dL (0.8-1.7); INTERPRETATION REPORT
[2021-05-13 20:35] LABS: HBsAG Nonreactive (Nonreactive)
[2021-05-14 10:48] LABS: Vitamin D 1,25-Dihydroxy Total <8 pg/mL (18-72); Vitamin D,1,25-OH2, D2 <8 pg/mL
[2021-05-14 11:01] LABS: Immunoglobulin A 192 mg/dL (47-310); Immunoglobulin G 595 mg/dL (600-1640); Immunoglobulin M 48 mg/dL (50-300)
== END 2021-05-09 11:39 | disposition short-term general hospital (02) | DRG 831 ==
LOC: ER 07:39 → ERHOLD 15:40
PROVIDERS: ADMIT Hospitalist; ATTEND Hospitalist
PROC: 30233N1 Transfusion of Nonautologous Red Blood Cells into Peripheral Vein, Percutaneous Approach (ICD-10-PCS; 2021-05-07)
PROC: 05HY33Z Insertion of Infusion Device into Upper Vein, Percutaneous Approach (ICD-10-PCS; 2021-05-07)
PROC: 5A1D70Z Performance of Urinary Filtration, Intermittent, Less than 6 Hours Per Day (ICD-10-PCS; principal; 2021-05-07 16:00)
DX: O14.20 HELLP syndrome (HELLP), unspecified trimester (principal); D59.3 Hemolytic-uremic syndrome; M31.10 Thrombotic microangiopathy, unspecified; N17.9 Acute kidney failure, unspecified; D58.9 Hereditary hemolytic anemia, unspecified; N30.00 Acute cystitis without hematuria; O99.119 Other diseases of the blood and blood-forming organs and certain disorders involving the immune mechanism complicating pregnancy, unspecified trimester; E87.2 Acidosis; N25.81 Secondary hyperparathyroidism of renal origin; O16.9 Unspecified maternal hypertension, unspecified trimester; O15.9 Eclampsia, unspecified as to time period; G43.909 Migraine, unspecified, not intractable, without status migrainosus; E78.5 Hyperlipidemia, unspecified; O14.90 Unspecified pre-eclampsia, unspecified trimester; E21.3 Hyperparathyroidism, unspecified; O26.899 Other specified pregnancy related conditions, unspecified trimester; O23.10 Infections of bladder in pregnancy, unspecified trimester; J45.909 Unspecified asthma, uncomplicated; O26.839 Pregnancy related renal disease, unspecified trimester; F17.200 Nicotine dependence, unspecified, uncomplicated; Z3A.00 Weeks of gestation of pregnancy not specified; Z20.822 Contact with and (suspected) exposure to COVID-19
CPT/HCPCS: 36415; 36430; 70450; 71045; 76000; 76770; 80048; 80053; 80069; 80076; 80307; 81003; 81015; 81025; 82088; 82550; 82607; 82652; 82728; 82746; 82784; 83010; 83520; 83540; 83615; 83735; 83880; 83970; 84100; 84165; 84244; 84443; 84466; 84484; 84550; 85014; 85018; 85025; 85027; 85044; 85302; 85305; 85306; 85379; 85384; 85610; 85730; 86021; 86038; 86160; 86225; 86317; 86430; 86704; 86706; 86850; 86880; 86900; 86901; 87086; 87088; 87340; 87389; 87522; 90935; 93005; 93975; 99284; J0360; J0690; J1200; J1644; J1720; J2150; J2250; J2270; J2405; J2550; J2920; J2930; J3010; J7040; J7050; P9016; U0003

== ENCOUNTER 2021-05-27 12:40 | Inpatient (IN) | payer SELFPAY ==
--- OUTSIDE RECORDS SUMMARY | 2021-05-27 16:01 | XMS REPORT | Continuity of Care Document ---
:1990 Author Organization [facility] t Address [address] [place] [address] Care Team Providers Name Role Phone Attending Clinician Unavailable STEPHANIE Attending Clinician Unavailable NASIR Attending Clinician Unavailable Kevan Mccall DO Attending Clinician Chris Guy Attending Clinician CHRIS BRAN Attending Clinician Unavailable Chace MARQUES Attending Clinician Unavailable Hernandez REGALADO Attending Clinician Unavailable Felton NOLAN Attending Clinician Kaushal NOLAN Attending Clinician Doctor Unassigned, Name Attending Clinician Unavailable LASHONDA PAUL Attending Clinician Unavailable Lashonda Paul MD Attending Clinician Hernandez Rivas Attending Clinician Beck AGUIRRE, B Attending Clinician John AGUIRRE Attending Clinician FLORY GALVEZ Admitting Clinician Unavailable Payers Payer Name Policy Type Policy Number Effective Date Expiration Date Mike SAEZ [id number] 2017 00:00:00 Problems Condition Condition Condition Status Onset Resolution Last Treating Co mments Source Name Details Category Date Date Treatment Clinician Date Malignant Malignant Disease Active 2020-[address] [facility] hypertensi hypertensi 1-08 [facility] - on on 00:[facility]: [facility] 00 Center Thrombocyt Thrombocyt Disease Active 2020-[address] [facility]09 [facility] Headache Headache Disease Active 2020-07 [facility] Acute Acute Disease Active 2020-[address] [facility] renal renal 07-09 [facility] - failure failure 00:00: Medical (ARF) (ARF) 00 Center HTN HTN Disease Active 2020-[address] [facility] (hypertens (hypertens 07-09 [facility] - ion) ion) 00:00: Medical 00 Center Anemia Anemia Disease Active 2020-[address] [facility] Low back Low back Disease Active 2017-07 Unive rs pain pain 2-29 ity of 00:00: [place] [facility] S/P S/P Disease Active 2017-07 Univers 2-24 ity of section section 00:00: [place] [address] Medical Branch Chronic Chronic Disease Active 2017-07 Univers hypertensi hypertensi 2-19 it y of on with on with 00:00: [place] superimpos superimpos 00 Me dical ed ed Branch preeclamps preeclamps ia ia 34 weeks 34 weeks Disease Active 2017-07 Unive rs gestation gestation 2-17 ity of of of 00:00: [place] 00 [facility] Branch Obesity Obesity Disease Active 2017-07 Univers (BMI (BMI 2-11 ity of 30-39.9) 30-39.9) 00:00: [place] [address] Medical Branch 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-07 Unive rs Pap smear Pap smear 1-27 ity of of cervix [place] Persistent Persistent Disease Active 2018 U nivers proteinuri proteinuri 8-06 it y of a a 00:00: [place] 00 Medical Branch Asymptomat Asymptomat Disease Active U nivers ic ic 8-06 ity of microscopi microscopi [place] 00 Medical hematuria hematuria Bran ch Asymptomat Asymptomat Disease Active U nivers ic ic 8-06 ity of microscopi microscopi [place] Medical hematuria hematuria Bran ch Essential Essential Disease Active Uni vers hypertensi hypertensi 1-11 it y of on on 00:00: [place] [address] Medical Branch Seizure Seizure Disease Active Univers disorder disorder ity of [facility] History of History of Disease Active U nivers migraine migraine ity of headaches headaches [facility] ESRD (end ESRD (end Disease Active [facility] stage stage [facility] - renal renal Medical disease) disease) Center on on dialysis dialysis Allergies, Adverse Reactions, Alerts Allergy Allergy Status Severity Reaction(s) Onset Inactive Treating Comm ents Source Name Type Date Date Clinician NO KNOWN Drug Active Univers ALLERGIE Class ity [facility] NO KNOWN Allergy Active [facility] ALLERGIE [facility] Social History Social Habit Start Date Stop Date Quantity Comments Source Exposure to Not sure [facility] SARS-CoV-2 [facility] (event) Branch Alcohol intake 2020-01-23 2020-01-23 Current University 00:00:00 00:00:00 non-drinker of [facility] alcohol [place] (finding) Tobacco use and 2020-01-23 2020-01-23 Never used Universit y of exposure 00:00:00 00:00:00 [facility] Sex Assigned At [address] Ivet kes - 00:00:00 00:00:00 [facility] Center Smoking Status Start Date Stop Date Source Never smoker [facility] Medications Ordered Filled Start Stop Current Ordering Indication Dosage Frequency Signature Comments Components Source Medication Medication Date Date Medication? Clinician (SIG) Name Name labetaloL 2020-07 Yes 100mg Q.5D Take [address] (NORMODYNE) 1-16 mg by [facility] - 100 MG 16:48: mouth 2 Medical tablet 39 (two) Center times daily. lisinopriL 2019-0 Yes [id number] 40mg Take 1 U nivers 40 mg 9-28 tablet by ity of tablet 00:00: mouth [place] 00 daily. Medical Branch hydroCHLORO 2019-0 Yes [id number] 25mg Take 1 Univers thiazide 25 9-28 tablet by ity of mg tablet 00:00: mouth [place] 00 daily. Medical Branch amLODIPine 2019-0 Yes [id number] 10mg Take 1 U nivers 10 mg 9-28 tablet by ity of tablet 00:00: mouth [place] 00 daily. Medical Branch lisinopriL 2019-0 Yes [id number] 40mg Take 1 U nivers 40 mg 9-28 tablet by ity of tablet 00:00: mouth [place] 00 daily. Medical Branch hydroCHLORO 2020-0 Yes [id number] 25mg Take 1 Univers thiazide 25 9-28 tablet by ity of mg tablet 00:00: mouth [place] 00 daily. Medical Branch amLODIPine 2020-0 Yes [id number] 10mg Take 1 U nivers 10 mg 9-28 tablet by ity of tablet 00:00: mouth [place] 00 daily. Medical Branch lisinopriL 2020-0 Yes [id number] 40mg Take 1 U nivers 40 mg 9-28 tablet by ity of tablet 00:00: mouth [place] 00 daily. Medical Branch hydroCHLORO 2020-0 Yes [id number] 25mg Take 1 Univers thiazide 25 9-28 tablet by ity of mg tablet 00:00: mouth [place] 00 daily. Medical Branch amLODIPine 2020-0 Yes [id number] 10mg Take 1 U nivers 10 mg 9-28 tablet by ity of tablet 00:00: mouth [place] 00 daily. Medical Branch lisinopriL 2020-0 Yes [id number] 40mg Take 1 U nivers 40 mg 9-28 tablet by ity of tablet 00:00: mouth [place] 00 daily. Medical Branch hydroCHLORO 2020-0 Yes [id number] 25mg Take 1 Univers thiazide 25 9-28 tablet by ity of mg tablet 00:00: mouth [place] 00 daily. Medical Branch amLODIPine 2020-0 Yes [id number] 10mg Take 1 U nivers 10 mg 9-28 tablet by ity of tablet 00:00: mouth [place] 00 daily. Medical Branch albuterol 2020-0 Yes [id number] 2{puff} Inhale 2 Univers 90 7-22 Puffs ity of mcg/actuati 00:00: every 6 [place] on inhaler 00 (six) Medical hours as Branch needed for Wheezing or Shortness of Breath. albuterol 2020-0 Yes [id number] 2{puff} Inhale 2 Univers 90 7-22 Puffs ity of mcg/actuati 00:00: every 6 [place] on inhaler 00 (six) Medical hours as Branch needed for Wheezing or Shortness of Breath. albuterol 2020-0 Yes [id number] 2{puff} Inhale 2 Univers 90 7-22 Puffs ity of mcg/actuati 00:00: every 6 [place] on inhaler 00 (six) Medical hours as Branch needed for Wheezing or Shortness of Breath. albuterol 2019-0 Yes [id number] 2{puff} Inhale 2 Univers 90 7-22 Puffs ity of mcg/actuati 00:00: every 6 [place] on inhaler 00 (six) Medical hours as Branch needed for Wheezing or Shortness of Breath. albuterol 2019-0 Yes [id number] 2{puff} Inhale 2 Univers 90 7-22 Puffs ity of mcg/actuati 00:00: every 6 [place] on inhaler 00 (six) Medical hours as Branch needed for Wheezing or Shortness of Breath. albuterol 2019- Yes [id number] 2{puff} Inhale 2 Univers 90 7-22 Puffs ity of mcg/actuati 00:00: every 6 [place] on inhaler 00 (six) Medical hours as Branch needed for Wheezing or Shortness of Breath. lisinopril Yes [id number] 20mg Take 1 U nivers 20 mg 5-14 tablet by ity of tablet 00:00: mouth [place] 00 daily. Medical Branch lisinopril 2019-0 Yes [id number] 20mg Take 1 U nivers 20 mg 5-14 tablet by ity of tablet 00:00: mouth [place] 00 daily. Medical Branch lisinopril 2019-0 Yes [id number] 20mg Take 1 U nivers 20 mg 5-14 tablet by ity of tablet 00:00: mouth [place] 00 daily. [facility] Branch lisinopril 2020- No [id number] 20mg Take 1 Univers 20 mg 5-14 09-28 tablet by ity of tablet 00:00: 00:00 mouth [place] 00 :00 daily. Medical Branch diazePAM 2019- No 10mg 10 mg, Univer s (VALIUM) 11-01 Oral, ity of tablet 10 23:00: 22:20 ONCE, 1 [place] mg 00 :00 dose, Fri Medical 11/02/19 at Branch 1800, [place] HYDROcodone 2019- 2020- No 1{tbl} 1 tablet, Univers -acetaminop 11-01 Oral, ity of hen (NORCO 22:45: 22:20 ONCE, 1 [place] 5) 5-325 mg 00 :00 dose, Fri Med ical tablet 1 11/02/19 at Branch tablet 1745, DALE ketorolac 2020-0 2020- No 30mg 30 mg, Unive rs (TORADOL) 5- 05- Intramuscu ity of injection 22:45: 22:20 [place], ONCE, [place] 30 mg 00 :00 1 dose, Medical 11/02/19 Branch at 1745, DALE
Fa [facility] member approving Restricted medication : JETHRO SCHAEFFER traMADol 50 2020-0 Yes [id number] 50mg Take 1 Univers mg tablet 5-01 tablet by ity o f 00:00: mouth [place] 00 every 6 Medical (six) Branch hours as needed for Pain (scale 7-10). ketorolac 2020-0 Yes [id number] 10mg Take 1 Un davi 10 mg 5-01 tablet by ity of tablet 00:00: mouth [place] 00 every 6 Medical (six) Branch hours as needed for Pain (scale 7-10). cyclobenzap 2020-0 Yes [id number] 5mg Take 1 Univers rine 5 mg 5-01 tablet by ity o f tablet 00:00: mouth 3 [place] 00 (three) Medical times Branch daily as needed for Muscle Spasms. lidocaine 5 2020-0 Yes [id number] 1{patch Apply 1 Univers % (700 5-01 } Patch to ity of mg/patch) 00:00: area(s) [place] patch 00 every 12 Medical (twelve) Branch hours as needed for Localized pain. traMADol 50 2020-0 Yes [id number] 50mg Take 1 Univers mg tablet 5-01 tablet by ity o f 00:00: mouth [place] 00 every 6 Medical (six) Branch hours as needed for Pain (scale 7-10). ketorolac 2020-0 Yes [id number] 10mg Take 1 Un davi 10 mg 5-01 tablet by ity of tablet 00:00: mouth [place] 00 every 6 Medical (six) Branch hours as needed for Pain (scale 7-10). cyclobenzap 2020-0 Yes [id number] 5mg Take 1 Univers rine 5 mg 5-01 tablet by ity o f tablet 00:00: mouth 3 [place] 00 (three) Medical times Branch daily as needed for Muscle Spasms. lidocaine 5 2020-0 Yes [id number] 1{patch Apply 1 Univers % (700 5-01 } Patch to ity of mg/patch) 00:00: area(s) [place] patch 00 every 12 Medical (twelve) Branch hours as needed for Localized pain. traMADol 50 2020-0 Yes [id number] 50mg Take 1 Univers mg tablet 5-01 tablet by ity o f 00:00: mouth [place] 00 every 6 Medical (six) Branch hours as needed for Pain (scale 7-10). ketorolac 2020-0 Yes [id number] 10mg Take 1 Un davi 10 mg 5-01 tablet by ity of tablet 00:00: mouth [place] 00 every 6 Medical (six) Branch hours as needed for Pain (scale 7-10). cyclobenzap 2020-0 Yes [id number] 5mg Take 1 Univers rine 5 mg 5-01 tablet by ity o f tablet 00:00: mouth 3 [place] 00 (three) Medical times Branch daily as needed for Muscle Spasms. lidocaine 5 2020-0 Yes [id number] 1{patch Apply 1 Univers % (700 5-01 } Patch to ity of mg/patch) 00:00: area(s) [place] patch 00 every 12 Medical (twelve) Branch hours as needed for Localized pain. traMADol 50 2020-0 Yes [id number] 50mg Take 1 Univers mg tablet 5-01 tablet by ity o f 00:00: mouth [place] 00 every 6 Medical (six) Branch hours as needed for Pain (scale 7-10). ketorolac 2020-0 Yes [id number] 10mg Take 1 Un davi 10 mg 5-01 tablet by ity of tablet 00:00: mouth [place] 00 every 6 Medical (six) Branch hours as needed for Pain (scale 7-10). cyclobenzap 2020-0 Yes [id number] 5mg Take 1 Univers rine 5 mg 5-01 tablet by ity o f tablet 00:00: mouth 3 [place] 00 (three) Medical times Branch daily as needed for Muscle Spasms. lidocaine 5 2020-0 Yes [id number] 1{patch Apply 1 Univers % (700 5-01 } Patch to ity of mg/patch) 00:00: area(s) [place] patch 00 every 12 Medical (twelve) Branch hours as needed for Localized pain. traMADol 50 2020-0 Yes [id number] 50mg Take 1 Univers mg tablet 5-01 tablet by ity o f 00:00: mouth [place] 00 every 6 Medical (six) Branch hours as needed for Pain (scale 7-10). ketorolac 2020-0 Yes [id number] 10mg Take 1 Un davi 10 mg 5-01 tablet by ity of tablet 00:00: mouth [place] 00 every 6 Medical (six) Branch hours as needed for Pain (scale 7-10). cyclobenzap 2020-0 Yes [id number] 5mg Take 1 Univers rine 5 mg 5-01 tablet by ity o f tablet 00:00: mouth 3 [place] 00 (three) Medical times Branch daily as needed for Muscle Spasms. lidocaine 5 2020-0 Yes [id number] 1{patch Apply 1 Univers % (700 5-01 } Patch to ity of mg/patch) 00:00: area(s) [place] patch 00 every 12 Medical (twelve) Branch hours as needed for Localized pain. traMADol 50 2020-0 Yes [id number] 50mg Take 1 Univers mg tablet 5-01 tablet by ity o f 00:00: mouth [place] 00 every 6 Medical (six) Branch hours as needed for Pain (scale 7-10). ketorolac 2020-0 Yes [id number] 10mg Take 1 Un davi 10 mg 5-01 tablet by ity of tablet 00:00: mouth [place] 00 every 6 Medical (six) Branch hours as needed for Pain (scale 7-10). cyclobenzap 2020-0 Yes [id number] 5mg Take 1 Univers rine 5 mg 5-01 tablet by ity o f tablet 00:00: mouth 3 [place] 00 (three) Medical times Branch daily as needed for Muscle Spasms. lidocaine 5 2020-0 Yes [id number] 1{patch Apply 1 Univers % (700 5-01 } Patch to ity of mg/patch) 00:00: area(s) [place] patch 00 every 12 Medical (twelve) Branch hours as needed for Localized pain. traMADol 50 2020-0 Yes [id number] 50mg Take 1 Univers mg tablet 5-01 tablet by ity o f 00:00: mouth [place] 00 every 6 Medical (six) Branch hours as needed for Pain (scale 7-10). ketorolac 2020-0 Yes [id number] 10mg Take 1 Un davi 10 mg 5-01 tablet by ity of tablet 00:00: mouth [place] 00 every 6 Medical (six) Branch hours as needed for Pain (scale 7-10). cyclobenzap 2020-0 Yes [id number] 5mg Take 1 Univers rine 5 mg 5-01 tablet by ity o f tablet 00:00: mouth 3 [place] 00 (three) Medical times Branch daily as needed for Muscle Spasms. lidocaine 5 2020-0 Yes [id number] 1{patch Apply 1 Univers % (700 5-01 } Patch to ity of mg/patch) 00:00: area(s) [place] patch 00 every 12 Medical (twelve) Branch hours as needed for Localized pain. traMADol 50 2020-0 Yes [id number] 50mg Take 1 Univers mg tablet 5-01 tablet by ity o f 00:00: mouth [place] 00 every 6 Medical (six) Branch hours as needed for Pain (scale 7-10). ketorolac 2020-0 Yes [id number] 10mg Take 1 Un davi 10 mg 5-01 tablet by ity of tablet 00:00: mouth [place] 00 every 6 Medical (six) Branch hours as needed for Pain (scale 7-10). cyclobenzap 2020-0 Yes [id number] 5mg Take 1 Univers rine 5 mg 5-01 tablet by ity o f tablet 00:00: mouth 3 [place] 00 (three) Medical times Branch daily as needed for Muscle Spasms. lidocaine 5 2020-0 Yes [id number] 1{patch Apply 1 Univers % (700 5-01 } Patch to ity of mg/patch) 00:00: area(s) [place] patch 00 every 12 Medical (twelve) Branch hours as needed for Localized pain. traMADol 50 2020-0 Yes [id number] 50mg Take 1 Univers mg tablet 5-01 tablet by ity o f 00:00: mouth [place] 00 every 6 Medical (six) Branch hours as needed for Pain (scale 7-10). ketorolac 2020-0 Yes [id number] 10mg Take 1 Un davi 10 mg 5-01 tablet by ity of tablet 00:00: mouth [place] 00 every 6 Medical (six) Branch hours as needed for Pain (scale 7-10). cyclobenzap 2020-0 Yes [id number] 5mg Take 1 Univers rine 5 mg 5-01 tablet by ity o f tablet 00:00: mouth 3 [place] 00 (three) Medical times Branch daily as needed for Muscle Spasms. lidocaine 5 2020-0 Yes [id number] 1{patch Apply 1 Univers % (700 5-01 } Patch to ity of mg/patch) 00:00: area(s) [place] patch 00 every 12 Medical (twelve) Branch hours as needed for Localized pain. traMADol 50 2020-0 Yes [id number] 50mg Take 1 Univers mg tablet 5-01 tablet by ity o f 00:00: mouth [place] 00 every 6 Medical (six) Branch hours as needed for Pain (scale 7-10). ketorolac 2019-0 Yes [id number] 10mg Take 1 Un davi 10 mg 5-01 tablet by ity of tablet 00:00: mouth [place] 00 every 6 Medical (six) Branch hours as needed for Pain (scale 7-10). cyclobenzap 2019-0 Yes [id number] 5mg Take 1 Univers rine 5 mg 5-01 tablet by ity o f tablet 00:00: mouth 3 [place] 00 (three) Medical times Branch daily as needed for Muscle Spasms. lidocaine 5 2019-0 Yes [id number] 1{patch Apply 1 Univers % (700 5-01 } Patch to ity of mg/patch) 00:00: area(s) [place] patch 00 every 12 Medical (twelve) Branch hours as needed for Localized pain. predniSONE 2020- No [id number] 40mg Take 2 Univers 20 mg 5-01 05-06 tablets by ity of tablet 00:00: 04:59 mouth [place] 00 :00 every Medical morning Branch for 4 days. chlorthalid 2018-07 Yes [id number] 25mg Take 1 Univers one 25 mg 1-11 tablet by ity o f tablet 00:00: mouth [place] 00 daily. Medical Branch chlorthalid 2018-07 Yes [id number] 25mg Take 1 Univers one 25 mg 1-11 tablet by ity o f tablet 00:00: mouth [place] 00 daily. Medical Branch chlorthalid 2018-07 Yes [id number] 25mg Take 1 Univers one 25 mg 1-11 tablet by ity o f tablet 00:00: mouth [place] 00 daily. Medical Branch chlorthalid 2018-07 Yes [id number] 25mg Take 1 Univers one 25 mg 1-11 tablet by ity o f tablet 00:00: mouth [place] 00 daily. Medical Branch chlorthalid 2018-07 Yes [id number] 25mg Take 1 Univers one 25 mg 1-11 tablet by ity o f tablet 00:00: mouth [place] 00 daily. Medical Branch chlorthalid 2018-07 2020- No [id number] 25mg Take 1 Univers one 25 mg 1-11 09-28 tablet by ity of tablet 00:00: 00:00 mouth [place] 00 :00 daily. Medical Branch Immunizations Ordered Filled Immunization Date Status Comments [facility] e Immunization Name Name Influenza Virus 2019-04-05 Completed Universit y of Vaccine Quad .5 mL 00:00:00 [facility] 6+ [place] Branch Influenza Virus 2019-04-05 Completed Universit y of Vaccine 00:00:00 [facility] Influenza Virus 2019-04-05 Completed Universit y of Vaccine Quad .5 mL 00:00:00 [facility] 6+ MO Branch Influenza Virus 2019-04-05 Completed Universit y of Vaccine 00:00:00 [facility] Influenza Virus 2019-04-05 Completed Universit y of Vaccine Quad .5 mL 00:00:00 [facility] 6 [place] Branch Influenza Virus 2019-04-05 Completed Universit y of Vaccine 00:00:00 [facility] Influenza Virus 2019-04-05 Completed Universit y of Vaccine Quad .5 mL 00:00:[address] MO [place] Influenza Virus 2019-04-05 Completed Universit y of Vaccine 00:00:00 [facility] Influenza Virus 2019-04-05 Completed Universit y of Vaccine Quad .5 mL 00:00:[address] [place] Branch Influenza Virus 2019-04-05 Completed Universit y of Vaccine 00:00:00 [facility] Influenza Virus 2019-04-05 Completed Universit y of Vaccine Quad .5 mL 00:00:[address] [place] Branch Influenza Virus 2019-04-05 Completed Universit y of Vaccine 00:00:00 [facility] Influenza Virus 2019-04-05 Completed Universit y of Vaccine Quad .5 mL 00:00:00 [facility] 6+ MO Branch Influenza Virus 2019-04-05 Completed Universit y of Vaccine 00:00:00 [facility] Influenza Virus 2019-04-05 Completed Universit y of Vaccine Quad .5 mL 00:00:00 [facility] 6+ [place] Branch Influenza Virus 2019-04-05 Completed Universit y of Vaccine 00:00:00 [facility] Influenza Virus 2019-04-05 Completed Universit y of Vaccine Quad .5 mL 00:00:00 [facility] 6 [place] Branch Influenza Virus 2019-04-05 Completed Universit y of Vaccine 00:00:00 [facility] Influenza Virus 2019-04-05 Completed Universit y of Vaccine Quad .5 mL 00:00:[address] [place] Branch Influenza Virus 2019-04-05 Completed Universit y of Vaccine 00:00:00 [facility] Vital Signs Vital Name Observation Time Observation Value Comments Source WEIGHT 2021-05-27 03:00:00 51.1 kg WEIGHT 2021-05-26 07:51:00 51.1 kg WEIGHT 2021-05-26 06:00:00 54.432 kg WEIGHT 2021-05-23 12:01:00 52.2 kg WEIGHT 2021-05-23 03:49:00 54.205 kg WEIGHT 2021-05-22 03:00:00 53.8 kg WEIGHT 2021-05-21 16:00:00 53.434 kg WEIGHT 2021-05-19 15:15:00 56.1 kg WEIGHT 2021-05-19 11:30:00 58.1 kg WEIGHT 2021-05-19 06:00:00 58.06 kg WEIGHT 2021-05-16 13:10:00 60.1 kg WEIGHT 2021-05-16 04:41:00 62.143 kg WEIGHT 2021-05-15 04:54:00 57.652 kg WEIGHT 2021-05-14 11:40:00 57.1 kg WEIGHT 2021-05-14 05:00:00 59.104 kg WEIGHT 2021-05-13 06:00:00 61.8 kg WEIGHT 2021-05-12 03:00:00 61.9 kg HEIGHT 2021-05-11 15:42:00 154.9 cm WEIGHT 2021-05-11 06:39:00 61.508 kg WEIGHT 2021-05-27 03:00:00 51.1 kg WEIGHT 2021-05-26 07:51:00 51.1 kg WEIGHT 2021-05-26 06:00:00 54.432 kg WEIGHT 2021-05-23 12:01:00 52.2 kg WEIGHT 2021-05-23 03:49:00 54.205 kg WEIGHT 2021-05-22 03:00:00 53.8 kg WEIGHT 2021-05-21 16:00:00 53.434 kg WEIGHT 2021-05-19 15:15:00 56.1 kg WEIGHT 2021-05-19 11:30:00 58.1 kg WEIGHT 2021-05-19 06:00:00 58.06 kg WEIGHT 2021-05-16 13:10:00 60.1 kg WEIGHT 2021-05-16 04:41:00 62.143 kg WEIGHT 2021-05-15 04:54:00 57.652 kg WEIGHT 2021-05-14 11:40:00 57.1 kg WEIGHT 2021-05-14 05:00:00 59.104 kg WEIGHT 2021-05-13 06:00:00 61.8 kg WEIGHT 2021-05-12 03:00:00 61.9 kg HEIGHT 2021-05-11 15:42:00 154.9 cm WEIGHT 2021-05-11 06:39:00 61.508 kg Systolic blood 2020-01-23 13:37:00 150 mm[Hg] Univer sity of pressure [place] [facility] Diastolic blood 2020-01-23 13:37:00 111 mm[Hg] Unive rsity of pressure [place] [facility] Heart rate 2020-01-23 13:36:00 77 /min Universi ty [facility] Body temperature 2020-01-23 13:36:00 36.78 Leigh Ann Univ ersity of [facility] Branch Respiratory rate 2020-01-23 13:36:00 16 /min Univ ersity of [facility] Branch Oxygen saturation in 2020-01-23 13:36:00 98 /min University of Arterial blood by [facility] Pulse oximetry Branch Systolic blood 2020-01-23 13:37:00 150 mm[Hg] Univer sity of pressure [place] [facility] Diastolic blood 2020-01-23 13:37:00 111 mm[Hg] Unive rsity of pressure [facility] Branch Heart rate 2020-01-23 13:36:00 77 /min Universi ty [facility] Body temperature 2020-01-23 13:36:00 36.78 Leigh Ann Univ ersity of [place] [facility] Respiratory rate 2020-01-23 13:36:00 16 /min Univ ersity of [facility] Oxygen saturation in 2020-01-23 13:36:00 98 /min University of Arterial blood by [facility] Pulse oximetry Branch Systolic blood 2019-11-02 22:25:00 172 mm[Hg] Univer sity of pressure [place] [facility] Diastolic blood 2019-11-02 22:25:00 119 mm[Hg] Unive rsity of pressure [facility] Branch Heart rate 2019-11-02 22:25:00 71 /min Universi ty of [facility] Body temperature 2019-11-02 21:14:00 36.83 Leigh Ann [facility] 2019-11-02 21:14:00 16 /min [facility] Body weight 2019-11-02 21:14:00 63.997 kg Universi ty of [facility] BMI 2019-11-02 21:14:00 26.66 kg/m2 Universi ty of [facility] Oxygen saturation in 2019-11-02 21:14:00 97 /min University of Arterial blood by [facility] Pulse oximetry Branch Systolic blood 2019-11-02 22:25:00 172 mm[Hg] Univer sity of pressure [facility] Diastolic blood 2019-11-02 22:25:00 119 mm[facility]Hg[facility] 2019-11-02 22:25:00 71 /min Universi ty of [facility] Body temperature 2019-11-02 21:14:00 36.83 Leigh Ann [facility] Respiratory rate 2019-11-02 21:14:00 16 /min [facility] Body weight 2019-11-02 21:14:00 63.997 kg Universi ty [facility] BMI 2019-11-02 21:14:00 26.66 kg/m2 Universi ty [facility] Oxygen saturation in 2019-11-02 21:14:00 97 /min University of Arterial blood by [facility] Pulse oximetry Branch Systolic blood 2021-05-20 11:41:00 146 mm[Hg] [facility] Diastolic blood 2021-05-20 11:41:00 93 mm[Hg] [facility] 2021-05-20 11:41:00 75 /min [facility] Body temperature 2021-05-20 11:41:00 37 Leigh Ann [facility] Respiratory rate 2021-05-20 11:41:00 18 /min [facility] Oxygen saturation in 2021-05-20 11:41:00 99 /min [facility] - Arterial blood by Medical nter Pulse oximetry Body weight 2021-05-19 15:15:00 56.[address] [facility] BMI 2021-05-19 15:15:00 23.37 kg/m2 [facility] Body height 2021-05-11 15:42:00 154.9 cm [facility] Procedures Procedure Date / Time Performing Clinician Source Performed BASIC METABOLIC PANEL 2021-05-20 04:42:00 Vaibhav Law [address] IR TUNNELED CATHETER 2021-05-19 10:58:00 Anastacia Raygoza [facility] SCREEN, URINE 2021-05-19 09:42:00 Jessica Hickman [facility] HEMODIALYSIS INPATIENT 2021-05-19 08:57:33 Anastacia Raygoza [facility] BASIC METABOLIC PANEL 2021-05-19 03:57:[address] BASIC METABOLIC PANEL 2021-05-18 05:26:00 Thanh [place] [id number]) [facility] HEMODIALYSIS INPATIENT 2021-05-16 13:24:13 Anastacia Raygoza [facility] CBC W/PLT COUNT & AUTO 2021-05-16 05:23:00 Ajit Nash [facility] BASIC METABOLIC PANEL 2021-05-16 05:23:00 Ajit Nash [address] CBC W/PLT COUNT & AUTO 2021-05-16 05:23:00 Ajit Nash [facility] HEMOGLOBIN AND 2021-05-15 21:46:00 Anastacia Raygoza [facility] US RENAL BIOPSY 2021-05-15 15:20:00 Benigno Roe [facility] TISSUE EXAM 2021-05-15 15:03:00 Ajit Nash [facility] CBC W/PLT COUNT & AUTO 2021-05-15 04:41:00 Ajit Nash [facility] BASIC METABOLIC PANEL 2021-05-15 04:41:[address] PROTHROMBIN TIME/INR 2021-05-15 04:41:00 Anastacia Raygoza [facility] CBC W/PLT COUNT & AUTO 2021-05-15 04:41:00 [facility] 2021-05-14 11:57:00 Anastacia Raygoza [facility] CBC W/PLT COUNT & AUTO 2021-05-14 04:34:00 Saad [facility] BASIC METABOLIC PANEL 2021-05-14 04:34:00 Saad [place] [id number]) [facility] CBC W/PLT COUNT & AUTO 2021-05-14 04:34:00 Saad [facility] CALCIUM, IONIZED 2021-05-13 04:14:00 [facility] COMPREHENSIVE METABOLIC 2021-05-13 04:14:00 [facility] MAGNESIUM 2021-05-13 04:14:[address] [facility] PHOSPHORUS 2021-05-13 04:14:[address] [facility] CBC W/PLT COUNT & AUTO 2021-05-13 04:14:00 [facility] VITAMIN D, 25-HYDROXY 2021-05-13 04:14:[address] [facility] CBC W/PLT COUNT & AUTO 2021-05-13 04:14:[address] [facility] [address] BRAIN WITHOUT IV 2021-05-12 21:53:00 [facility] METANEPHRINES 2021-05-12 05:54:00 [facility] W/PLT COUNT & AUTO 2021-05-12 05:53:00 Saad [facility] BASIC METABOLIC PANEL 2021-05-12 05:53:00 Ajit Nash [place] [address]) [facility] RENIN, PLASMA 2021-05-12 05:53:00 JaretAnastacia Brett [facility] ALDOSTERONE 2021-05-12 05:53:00 [facility] C[facility] 2021-05-12 05:53:00 Jaret [facility] CBC W/PLT COUNT & AUTO 2021-05-12 05:53:00 Ajit Nash [facility] ECG 12-LEAD 2021-05-11 10:34:27 [facility] [address] Mariano [facility] ECG 12-LEAD 2021-05-11 10:34:27 Unknown, Hl7 [facility] URINALYSIS W/ 2021-05-11 10:07:00 Benigno Roe [facility] SCREEN, URINE 2021-05-11 10:07:00 Ajit Nash [facility] PROTEIN, RANDOM URINE 2021-05-11 05:00:00 Benigno Roe [facility] CREATININE, RANDOM URINE 2021-05-11 05:00:00 Benigno Roe [facility] EOSINOPHIL SMEAR, URINE 2021-05-11 05:00:00 Benigno Roe [facility] SODIUM, RANDOM URINE 2021-05-11 05:00:00 Benigno Roe [facility] BASIC METABOLIC PANEL 2021-05-11 04:54:00 Jennyfer Galvez [place] [address]) [facility] HEPATIC FUNCTION PANEL 2021-05-11 04:54:00 Jennyfer Galvez [facility] PROTHROMBIN TIME/INR 2021-05-11 04:54:00 Jennyfer Galvez [facility] MAGNESIUM 2021-05-11 04:54:00 Sunny Galvezyue [facility] PHOSPHORUS 2021-05-11 04:54:00 Jennyfer Galvez [facility] CBC W/PLT COUNT & AUTO 2021-05-11 04:54:00 Jennyfer Galvez [facility] PERIPHERAL BLOOD SMEAR - 2021-05-11 04:54:00 Mayelin Toth [facility] CBC W/PLT COUNT & AUTO 2021-05-11 04:54:00 [facility] HCG, QUANTITATIVE, 2021-05-10 04:52:00 [facility] COMPLEMENT COMPONENT C4 2021-05-10 04:52:00 Lenny [facility] HEPATITIS B PANEL 2021-05-10 04:52:00 Lenny [facility] HAPTOGLOBIN 2021-05-10 04:52:00 Lenny [facility] BASIC METABOLIC PANEL 2021-05-10 04:52:[address] HEPATIC FUNCTION PANEL 2021-05-10 04:52:00 Lyndsey GalvezFormerly [facility] PROTHROMBIN TIME/INR 2021-05-10 04:52:00 Lenny [facility] HEMOGLOBIN A1C 2021-05-10 04:52:00 Lenny [facility] MAGNESIUM 2021-05-10 04:52:00 Lenny [facility] PHOSPHORUS 2021-05-10 04:52:00 Lenny [facility] CBC W/PLT COUNT & AUTO 2021-05-10 04:52:00 [facility] CBC W/PLT COUNT & AUTO 2021-05-10 04:52:00 Jennyfer Galvez [facility] S t Luchi [facility] - DIFFERENTIAL [facility] ANTI-NUCLEAR ANTIBODY 2021-05-09 20:06:00 Jennyfer Galvez [facility] (YUMIKO) [facility] DOUBLE-STRANDED DNA 2021-05-09 20:06:00 Jennyfer Galvez [facility] - (DSDNA) ANTIBODY [facility] HEPATITIS PANEL, ACUTE 2021-05-09 20:06:00 Lenny LyndseyFormerly [facility] VITAMIN B12 2021-05-09 20:06:00 [facility] IRON, TIBC, % SAT. 2021-05-09 20:06:00 Jennyfer Galvez [facility] (WITHOUT FERRITIN) [facility] 2021-05-09 20:06:00 Lenny [facility] SARS-COV2/RT-PCR ([facility] & 2021-05-09 19:04:00 [facility] US RENAL COMPLETE 2021-05-09 18:22:00 [facility] BASIC METABOLIC PANEL 2021-05-09 16:04:00 [facility] HEPATIC FUNCTION PANEL 2021-05-09 16:04:00 LennyLyndseyFormerly [facility] PROTHROMBIN TIME/INR 2021-05-09 16:04:00 Lenny [facility] MAGNESIUM 2021-05-09 16:04:00 Lenny [facility] PHOSPHORUS 2021-05-09 16:04:00 Lenny [facility] CBC W/PLT COUNT & AUTO 2021-05-09 16:04:00 LennyJennyfer [facility] S t Luchi [facility] - DIFFERENTIAL [facility] PERIPHERAL BLOOD SMEAR - 2021-05-09 16:04:00 Jennyfer Galvez [facility] - PATHOLOGIST REVIEW [facility] LACTATE DEHYDROGENASE 2021-05-09 16:04:00 Jennyfer Galvez [facility] (LDH) [facility] RETICULOCYTE COUNT 2021-05-09 16:04:00 Jennyfer Galvez [facility] Ivet kes - [facility] FIBRINOGEN 2021-05-09 16:04:00 [facility] FIBRIN SOLUBLE MONOMER 2021-05-09 16:04:00 [facility] TYPE AND SCREEN, 2021-05-09 16:04:00 [facility] CBC W/PLT COUNT & AUTO 2021-05-09 16:04:00 Jennyfer Galvez [facility] S t [facility] - DIFFERENTIAL [facility] (CELLAVISION MANUAL 2021-05-09 16:04:00 Jennyfer Galvez [facility] - DIFF) [facility] PERIPHERAL BLOOD SMEAR - 2021-05-09 14:47:00 [facility] ECG 12-LEAD 2021-05-09 14:20:57 LennyLyndsey langstonjaniya [facility] ECG 12-LEAD 2021-05-09 14:20:57 Unknown, Hl7 [facility] XR CHEST 1 VIEW PORTABLE 2021-05-09 13:58:00 Jennyfer Galvez [facility] / BEDSIDE [facility] ASSIGNMENT OF BENEFITS 2020-01-23 13:09:03 Doctor Unassigned, No [facility] Plan of Care Planned Activity Planned Date Details Comments Source Future Scheduled 2021-03-[address] [facility] Test 00:00:00 (#1) [code = [facility] INFLUENZA VACCINE (#1)] Future Scheduled 2020-07-[address] [facility] - Test 00:00:00 (12+) [code = [facility] DEPRESSION SCREENING (12+)] Future Scheduled 2011-09-[address] [facility] - Test 00:00:00 malignant neoplasm of Medica l Center cervix (procedure) [code = 462438196] Future Scheduled [address] [facility] - Test 00:00:00 (procedure) [code = Medical Center [id number]] Future Scheduled 2009 DTAP/TDAP/TD VACCINES [facility] - Test 00:00:00 (1 - Tdap) [code = Medical C enter DTAP/TDAP/TD VACCINES (1 - Tdap)] Future Scheduled 2002 COVID-19 VACCINE (1) [facility] Test 00:00:00 [code = COVID-[address] VACCINE (1)] Encounters Start End Encounter Admission Attending Care Care Encounter Source Date/Time Date/Time Type Type Clinicians Facility Department ID 2021-05-09 Inpatient UR PATRICIO QUEZADA Medical ICU [id number] SLE 12:43:00 CHELITA 2021-04-30 Emergency [facility] [id number] Univers [facility] 2021-06-05 2021-06-05 Outpatient STEPHANIE [facility] [id number] SLE 00:00:00 00:00:00 [facility] 2021-05-26 2021-05-26 Outpatient [facility] [id number] [facility] 00:00:00 00:00:00 [facility] 2021-05-18 2021-05-18 Outpatient STEPHANIE [facility] [id number] SLE 00:00:00 00:00:00 [facility] 2021-05-09 2021-05-09 Outpatient [facility] [id number] [facility] 00:00:00 23:59:00 [facility] 2021-05-09 2021-05-[address] [facility] [id number] 00:00:00 00:00:00 [facility] 2020-09-23 2020-09-23 Patient Cal [facility] 1.2.840.114 [id number] [facility] 00:00:00 00:00:00 [facility] [id number] i ty of [facility] [id number] [phone] [place] [address] [place] 2020-09-23 2020-09-23 Patient Cal IATRACEE 1.2.840.114 [id number] 00:00:00 00:00:00 Outreach Zeke PRIMARY [id number] Kevan [facility] [id number] PAVILLION [id number] 388 2020-04-01 2020-04-01 Telephone Terri Bran [facility] 1.2.840.114 [id number] Univers 00:00:00 00:00:00 [facility] [id number] it [id number] [id number] Med ical RICHA [address] [place] [address] 2020-04-01 2020-04-01 Telephone Terri Bran [facility] 1.2.840.114 [id number] 00:00:00 00:00:00 [facility] [id number] FAMILY [id number] MEDICINE [id number] [address] 2020-03-31 2020-03-31 Outpatient R TERRI BRAN [facility] [id number] Univers 14:40:00 14:40:00 [id number] ity [facility] 2020-03-31 2020-03-31 Outpatient R TERRI BRAN [facility] [id number] Univers 14:40:00 14:40:00 ity [facility] 2020-03-31 2020-03-31 Telemedici Terri Bran [facility] 1.2.840.114 [id number] Univers 11:27:39 11:47:39 ne Visit [facility] [id number] i [id number] [id number] Med ical RICHA [address] [place] [address] 2020-03-31 2020-03-31 Telemedici Terri Bran [facility] 1.2.840.114 [id number] 11:27:39 11:47:39 ne Visit [facility] [id number] FAMILY [id number] MEDICINE [phone] RICHA [address] [place] [address] 2020-03-31 2020-03-31 YINA Pulido 1.2.840.114 [id number] Univers 00:00:00 00:00:00 Triage Karolina YOSEPH [id number] it y of HOSPITAL 4.2.7.2.686 Damon as [id number] [address] 2020-03-31 2020-03-31 Telephone Terri Bran [facility] 1.2.840.114 [id number] Univers 00:00:00 00:00:00 [facility] [id number] [id number] [id number] Med ical [address] 2020-03-31 2020-03-31 Telephone Terri Bran [facility] 1.2.840.114 [id number] 00:00:00 00:00:00 [facility] [id number] FAMILY [id number] MEDICINE [id number] [address] 2020-03-31 2020-03-31 Nurse YINA Mas 1.2.840.114 [id number] 00:00:00 00:00:00 Triage Kraolina YOSEPH [id number] HOSPITAL [id number] [id number] 2020-02-04 2020-02-04 [facility] [id number] Univers 10:55:00 10:55:00 VIGNESH ity [facility] 2020-02-04 2020-02-04 [facility] [id number] Univers 10:55:00 10:55:00 VIGNESH ity [facility] 2020-01-23 2020-01-23 Outpatient R [facility] [id number] Univers 08:30:00 08:30:00 [id number] ity [facility] 2020-01-23 2020-01-23 Outpatient R [facility] [id number] Univers 08:30:00 08:30:00 ity [facility] 2020-01-23 2020-01-23 Urgent Benigno Ya [facility] 1.2.840.11 [id number] Univers 08:10:46 08:25:46 Care Yasmine Easley [facility] [id number] ity of CARE [id number] [phone] Wa dical [address] [place] 2020-01-23 2020-01-23 Urgent Felton [facility] 1.2.840.114 [id number] 08:10:46 08:25:46 Care Benigno PRIMARY [id number] CARE [id number] PAVILLION [id number] [facility] 2020-01-23 2020-01-23 Orders Doctor YINA 1.2.840.114 [id number] Univers 00:00:00 00:00:00 Only Unassigned, YOSEPH 350.1.13.10 ity of [facility] 4.2.7.2.686 Damon as [id number] [facility] [address] [place] 2020-01-23 2020-01-23 Orders Doctor YINA 1.2.840.114 [id number] 00:00:00 00:00:00 Only Unassigned, YOSEPH 350.1.13.10 [facility] 4.2.7.2.686 [id number] 2019-11-15 2019-11-15 Outpatient R SERA [facility] [id number] Univers 09:20:00 09:20:[address] [place] [address] 2019-11-15 2019-11-15 [facility] [id number] Univers 09:20:00 09:20:00 [facility] 2019-11-15 2019-11-15 [facility]ici [facility] 1.2.840.114 [id number] Univers 07:51:23 08:11:23 ne Visit Reina FAMILY [id number] i ty of [place] MEDICINE [id number] Damon as CLINIC - [phone] Med [address] 2019-11-15 2019-11-15 Telemrici [facility] 1.2.840.114 [id number] 07:51:23 08:11:23 ne Visit Reina FAMILY [id number] [place] MEDICINE [id number] CLINIC - [id number] [address] 2019-11-07 2019-11-07 Telephone Fabricio [facility] 1.2.840.114 [id number] Univers 00:00:00 00:00:00 Vignesh DWYER [id number] it y of MEDICINE [id number] [place]on as CLINIC - [phone] Med ical [address] 2019-11-07 2019-11-07 Telephone Fabricio [facility] 1.2.840.114 [id number] 00:00:00 00:00:00 Vignesh DWYER [id number] MEDICINE [id number] CLINIC - [id number] [address] 2019-11-02 2019-11-02 Emergency [place], Naeem B TRAUMA 1.2.840 .114 [id number] [facility] 16:16:18 18:16:00 Lopez, [facility] 350.1.13.10 [place] [id number] [address] 2019-11-02 2019-11-02 Emergency [place], Naeem B TRAUMA 1.2.840 .114 [id number] 16:16:18 18:16:00 Lopez, [facility][note 3] [id number] [id number] [id number] Results Test Description Test Time Test Comments Results Result Comments Source BASIC METABOLIC PANEL 2021-05-27 06:37:47 Test Item Value Reference Range Interpretation Comme nts SODIUM (BEAKER) (test code 138 meq/L 136-145 = 381) POTASSIUM (BEAKER) (test 4.0 meq/L 3.5-5.1 code = 379) CHLORIDE (BEAKER) (test 103 meq/L 98-107 code = 382) CO2 (BEAKER) (test code = 24 meq/L 22-29 355) BLOOD UREA NITROGEN 23 mg/dL 7-21 H (BEAKER) (test code = 354) CREATININE (BEAKER) (test 6.24 mg/dL 0.57-1.25 H code = 358) GLUCOSE RANDOM (BEAKER) 87 mg/dL 70-105 (test code = 652) CALCIUM (BEAKER) (test code 9.1 mg/dL 8.4-10.2 = 697) EGFR (BEAKER) (test code = 8 mL/min/1.73 sq m ESTIMATED GFR IS NOT 1092) ACCURATE CRE ATININE CLEARANCE IN PA EDICTING GLOMERULAR FILT RATION RATE. ESTIMATED GFR I S NOT APPLICABLE FOR DIALYSIS PATIENTS. Design Engineer ID - SITA [facility] W/PLT COUNT & AUTO [id number] 06:07:04 Test Item Value Reference Range Interpretation Comments WHITE BLOOD CELL COUNT (BEAKER) 6.3 K/ L 3.5-10.5 (test code = 775) RED BLOOD CELL COUNT (BEAKER) 3.21 M/ L 3.93-5.22 L (test code = 761) HEMOGLOBIN (BEAKER) (test code = 9.4 GM/DL 11.2-15.7 L 410) HEMATOCRIT (BEAKER) (test code = 29.6 % 34.1-44.9 L 411) MEAN CORPUSCULAR VOLUME (BEAKER) 92.2 fL 79.4-94.8 (test code = 753) MEAN CORPUSCULAR HEMOGLOBIN 29.3 pg 25.6-32.2 (BEAKER) (test code = 751) MEAN CORPUSCULAR HEMOGLOBIN CONC 31.8 GM/DL 32.2-35.5 L (BEAKER) (test code = 752) RED CELL DISTRIBUTION WIDTH 14.2 % 11.7-14.4 (BEAKER) (test code = 412) PLATELET COUNT (BEAKER) (test 217 K/CU MM 150-450 code = 756) MEAN PLATELET VOLUME (BEAKER) 9.6 fL 9.4-12.3 (test code = 754) NUCLEATED RED BLOOD CELLS 0 /100 WBC 0-0 (BEAKER) (test code = 413) NEUTROPHILS RELATIVE PERCENT 58 % (BEAKER) (test code = 429) LYMPHOCYTES RELATIVE PERCENT 25 % (BEAKER) (test code = 430) MONOCYTES RELATIVE PERCENT 9 % (BEAKER) (test code = 431) EOSINOPHILS RELATIVE PERCENT 6 % (BEAKER) (test code = 432) BASOPHILS RELATIVE PERCENT 1 % (BEAKER) (test code = 437) NEUTROPHILS ABSOLUTE COUNT 3.60 K/ L 1.56-6.13 (BEAKER) (test code = 670) LYMPHOCYTES ABSOLUTE COUNT 1.58 K/ L 1.18-3.74 (BEAKER) (test code = 414) MONOCYTES ABSOLUTE COUNT (BEAKER) 0.57 K/ L 0.24-0.36 H (test code = 415) EOSINOPHILS ABSOLUTE COUNT 0.36 K/ L 0.04-0.36 (BEAKER) (test code = 416) BASOPHILS ABSOLUTE COUNT (BEAKER) 0.08 K/ L 0.01-0.08 (test code = 417) IMMATURE GRANULOCYTES-RELATIVE 1 % 0-1 PERCENT (BEAKER) (test code = 2801) BASIC METABOLIC [id number] 05:46:48 Test Item Value Reference Range Interpretation Comments SODIUM (BEAKER) 140 meq/L 136-145 (test code = 381) POTASSIUM (BEAKER) 4.4 meq/L 3.5-5.1 (test code = 379) CHLORIDE (BEAKER) 106 meq/L 98-107 (test code = 382) CO2 (BEAKER) (test 20 meq/L 22-29 L code = 355) BLOOD UREA NITROGEN 47 mg/dL 7-21 H (BEAKER) (test code = 354) CREATININE (BEAKER) 9.86 mg/dL 0.57-1.25 H (test code = 358) GLUCOSE RANDOM 89 mg/dL 70-105 (BEAKER) (test code = 652) CALCIUM (BEAKER) 9.0 mg/dL 8.4-10.2 (test code = 697) EGFR (BEAKER) (test 5 mL/min/1.73 ESTIMAT ED GFR IS code = 1092) sq m NOT ACCURATE CREATININE CLEARANCE IN PREDICTING GLOMERULAR FILTRATION RATE . ESTIMATED GFR I S NOT APPLICABLE FOR DIALYSIS PATIEN TS. Design Engineer ID - SITA [facility] W/PLT COUNT & AUTO [id number] 05:21:23 Test Item Value Reference Range Interpretation Comments WHITE BLOOD CELL COUNT (BEAKER) 7.0 K/ L 3.5-10.5 (test code = 775) RED BLOOD CELL COUNT (BEAKER) 3.10 M/ L 3.93-5.22 L (test code = 761) HEMOGLOBIN (BEAKER) (test code = 9.0 GM/DL 11.2-15.7 L 410) HEMATOCRIT (BEAKER) (test code = 28.2 % 34.1-44.9 L 411) MEAN CORPUSCULAR VOLUME (BEAKER) 91.0 fL 79.4-94.8 (test code = 753) MEAN CORPUSCULAR HEMOGLOBIN 29.0 pg 25.6-32.2 (BEAKER) (test code = 751) MEAN CORPUSCULAR HEMOGLOBIN CONC 31.9 GM/DL 32.2-35.5 L (BEAKER) (test code = 752) RED CELL DISTRIBUTION WIDTH 14.1 % 11.7-14.4 (BEAKER) (test code = 412) PLATELET COUNT (BEAKER) (test 194 K/CU MM 150-450 code = 756) MEAN PLATELET VOLUME (BEAKER) 10.0 fL 9.4-12.3 (test code = 754) NUCLEATED RED BLOOD CELLS 0 /100 WBC 0-0 (BEAKER) (test code = 413) NEUTROPHILS RELATIVE PERCENT 62 % (BEAKER) (test code = 429) LYMPHOCYTES RELATIVE PERCENT 22 % (BEAKER) (test code = 430) MONOCYTES RELATIVE PERCENT 8 % (BEAKER) (test code = 431) EOSINOPHILS RELATIVE PERCENT 6 % (BEAKER) (test code = 432) BASOPHILS RELATIVE PERCENT 1 % (BEAKER) (test code = 437) NEUTROPHILS ABSOLUTE COUNT 4.31 K/ L 1.56-6.13 (BEAKER) (test code = 670) LYMPHOCYTES ABSOLUTE COUNT 1.52 K/ L 1.18-3.74 (BEAKER) (test code = 414) MONOCYTES ABSOLUTE COUNT (BEAKER) 0.52 K/ L 0.24-0.36 H (test code = 415) EOSINOPHILS ABSOLUTE COUNT 0.43 K/ L 0.04-0.36 H (BEAKER) (test code = 416) BASOPHILS ABSOLUTE COUNT (BEAKER) 0.10 K/ L 0.01-0.08 H (test code = 417) IMMATURE GRANULOCYTES-RELATIVE 1 % 0-1 PERCENT (BEAKER) (test code = 2801) MISCELLANEOUS LAB [id number] 10:35:31 Test Item Value Reference Range Interpretation Comments SCAN RESULT (test code = see scanned result [id number]) see scanned resultSARS-COV2/RT-PCR ([facility])2021-05-24 11:24:11 Test Item Value Reference Range Interpretation Comments SARS-COV2/RT-PCR Negative Negative The SARS-Co V-2 target (test code = nucleic acids a re not [id number]) detected in thi s specimen. Negative result s do not preclude SARS-C oV-2 infection and s hould not be used as the jennifer e basis for patient managem ent decisions. Nega tive results must be combine d with clinical observ ations, patient history , and epidemiological information. A false negativ e result may occur if a spec imen is improperly albaro ected, transported or handled. This SARS CoV-2 test is a rapid, real-sophy e RT-PCR test intended for e qualitative detection of nu cleic acid from SARS-CoV-2 in a nasopharyngeal swab specimen collected from individuals suspected of CO VID-19 by their [facility] e provider. This test has been authorized by FDA under an EUA for use by authorized laboratories. This test is only authorized for the duration of the declaration that circumstances exist justifying the authorization of emergency use of in vitro diagnostic tests for detection and/or diagnosis of COVID-19 under Section 564(b)(1) of the Federal Food, Drug and Cosmetic Act, 21 U.S.C. 360bbb- 3(b)(1), unless the authorization is terminated or revoked sooner. Fact Sheet for Healthcare Providers: https://www.[employer]/Documents/Xpert%20Xpress%20SARS%20CoV-2/Fact%20Sheets/3023802%20SARS-COV -2%20HEALTHCARE%20PROVIDERS%20FACT%20SHEET.pdf Fact Sheet for Healthcare Patients: [email or web address]://www.[employer]/Documents/Xpert %20Xpress%20SARS%20CoV-2/Fact%20Sheets/3023801%65TPOO-ICF-1%20PATIENT%20FACT%20 SHEET.pdfBASI METABOLIC [id number] 07:35:50 Test Item Value Reference Range Interpretation Comments SODIUM (BEAKER) 138 meq/L 136-145 (test code = 381) POTASSIUM (BEAKER) 4.2 meq/L 3.5-5.1 (test code = 379) CHLORIDE (BEAKER) 103 meq/L 98-107 (test code = 382) CO2 (BEAKER) (test 24 meq/L 22-29 code = 355) BLOOD UREA NITROGEN 21 mg/dL 7-21 (BEAKER) (test code = 354) CREATININE (BEAKER) 5.84 mg/dL 0.57-1.25 H (test code = 358) GLUCOSE RANDOM 92 mg/dL 70-105 (BEAKER) (test code = 652) CALCIUM (BEAKER) 9.0 mg/dL 8.4-10.2 (test code = 697) EGFR (BEAKER) (test 8 mL/min/1.73 ESTIMAT ED GFR IS code = 1092) sq m NOT ACCURATE CREATININE CLEARANCE IN PREDICTING GLOMERULAR FILTRATION RATE . ESTIMATED GFR I S NOT APPLICABLE FOR DIALYSIS PATIEN TS. Design Engineer ID - SITA [facility] W/PLT COUNT & AUTO [id number] 06:13:19 Test Item Value Reference Range Interpretation Comments WHITE BLOOD CELL COUNT (BEAKER) 7.4 K/ L 3.5-10.5 (test code = 775) RED BLOOD CELL COUNT (BEAKER) 3.29 M/ L 3.93-5.22 L (test code = 761) HEMOGLOBIN (BEAKER) (test code = 9.7 GM/DL 11.2-15.7 L 410) HEMATOCRIT (BEAKER) (test code = 29.2 % 34.1-44.9 L 411) MEAN CORPUSCULAR VOLUME (BEAKER) 88.8 fL 79.4-94.8 (test code = 753) MEAN CORPUSCULAR HEMOGLOBIN 29.5 pg 25.6-32.2 (BEAKER) (test code = 751) MEAN CORPUSCULAR HEMOGLOBIN CONC 33.2 GM/DL 32.2-35.5 (BEAKER) (test code = 752) RED CELL DISTRIBUTION WIDTH 14.0 % 11.7-14.4 (BEAKER) (test code = 412) PLATELET COUNT (BEAKER) (test 176 K/CU MM 150-450 code = 756) MEAN PLATELET VOLUME (BEAKER) 10.0 fL 9.4-12.3 (test code = 754) NUCLEATED RED BLOOD CELLS 0 /100 WBC 0-0 (BEAKER) (test code = 413) NEUTROPHILS RELATIVE PERCENT 64 % (BEAKER) (test code = 429) LYMPHOCYTES RELATIVE PERCENT 18 % (BEAKER) (test code = 430) MONOCYTES RELATIVE PERCENT 11 % (BEAKER) (test code = 431) EOSINOPHILS RELATIVE PERCENT 6 % (BEAKER) (test code = 432) BASOPHILS RELATIVE PERCENT 1 % (BEAKER) (test code = 437) NEUTROPHILS ABSOLUTE COUNT 4.74 K/ L 1.56-6.13 (BEAKER) (test code = 670) LYMPHOCYTES ABSOLUTE COUNT 1.29 K/ L 1.18-3.74 (BEAKER) (test code = 414) MONOCYTES ABSOLUTE COUNT (BEAKER) 0.78 K/ L 0.24-0.36 H (test code = 415) EOSINOPHILS ABSOLUTE COUNT 0.41 K/ L 0.04-0.36 H (BEAKER) (test code = 416) BASOPHILS ABSOLUTE COUNT (BEAKER) 0.10 K/ L 0.01-0.08 H (test code = 417) IMMATURE GRANULOCYTES-RELATIVE 1 % 0-1 PERCENT (BEAKER) (test code = 2801) BASIC METABOLIC [id number] 06:57:04 Test Item Value Reference Range Interpretation Comments SODIUM (BEAKER) 139 meq/L 136-145 (test code = 381) POTASSIUM (BEAKER) 4.6 meq/L 3.5-5.1 (test code = 379) CHLORIDE (BEAKER) 103 meq/L 98-107 (test code = 382) CO2 (BEAKER) (test 21 meq/L 22-29 L code = 355) BLOOD UREA NITROGEN 41 mg/dL 7-21 H (BEAKER) (test code = 354) CREATININE (BEAKER) 8.40 mg/dL 0.57-1.25 H (test code = 358) GLUCOSE RANDOM 91 mg/dL 70-105 (BEAKER) (test code = 652) CALCIUM (BEAKER) 9.4 mg/dL 8.4-10.2 (test code = 697) EGFR (BEAKER) (test 6 mL/min/1.73 ESTIMAT ED GFR IS code = 1092) sq m NOT ACCURATE CREATININE CLEARANCE IN PREDICTING GLOMERULAR FILTRATION RATE . ESTIMATED GFR I S NOT APPLICABLE FOR DIALYSIS PATIEN TS. Design Engineer ID - [place] GCBC W/PLT COUNT & AUTO [id number] 06:21:27 Test Item Value Reference Range Interpretation Comments WHITE BLOOD CELL COUNT (BEAKER) 8.6 K/ L 3.5-10.5 (test code = 775) RED BLOOD CELL COUNT (BEAKER) 3.05 M/ L 3.93-5.22 L (test code = 761) HEMOGLOBIN (BEAKER) (test code = 9.0 GM/DL 11.2-15.7 L 410) HEMATOCRIT (BEAKER) (test code = 26.6 % 34.1-44.9 L 411) MEAN CORPUSCULAR VOLUME (BEAKER) 87.2 fL 79.4-94.8 (test code = 753) MEAN CORPUSCULAR HEMOGLOBIN 29.5 pg 25.6-32.2 (BEAKER) (test code = 751) MEAN CORPUSCULAR HEMOGLOBIN CONC 33.8 GM/DL 32.2-35.5 (BEAKER) (test code = 752) RED CELL DISTRIBUTION WIDTH 14.0 % 11.7-14.4 (BEAKER) (test code = 412) PLATELET COUNT (BEAKER) (test 179 K/CU MM 150-450 code = 756) MEAN PLATELET VOLUME (BEAKER) 9.8 fL 9.4-12.3 (test code = 754) NUCLEATED RED BLOOD CELLS 0 /100 WBC 0-0 (BEAKER) (test code = 413) NEUTROPHILS RELATIVE PERCENT 69 % (BEAKER) (test code = 429) LYMPHOCYTES RELATIVE PERCENT 15 % (BEAKER) (test code = 430) MONOCYTES RELATIVE PERCENT 9 % (BEAKER) (test code = 431) EOSINOPHILS RELATIVE PERCENT 6 % (BEAKER) (test code = 432) BASOPHILS RELATIVE PERCENT 1 % (BEAKER) (test code = 437) NEUTROPHILS ABSOLUTE COUNT 5.86 K/ L 1.56-6.13 (BEAKER) (test code = 670) LYMPHOCYTES ABSOLUTE COUNT 1.25 K/ L 1.18-3.74 (BEAKER) (test code = 414) MONOCYTES ABSOLUTE COUNT (BEAKER) 0.75 K/ L 0.24-0.36 H (test code = 415) EOSINOPHILS ABSOLUTE COUNT 0.52 K/ L 0.04-0.36 H (BEAKER) (test code = 416) BASOPHILS ABSOLUTE COUNT (BEAKER) 0.09 K/ L 0.01-0.08 H (test code = 417) IMMATURE GRANULOCYTES-RELATIVE 1 % 0-1 PERCENT (BEAKER) (test code = 2801) CBC W/PLT COUNT & AUTO [id number] 13:50:18 Test Item Value Reference Range Interpretation Comments WHITE BLOOD CELL COUNT (BEAKER) 9.6 K/ L 3.5-10.5 (test code = 775) RED BLOOD CELL COUNT (BEAKER) 3.08 M/ L 3.93-5.22 L (test code = 761) HEMOGLOBIN (BEAKER) (test code = 9.1 GM/DL 11.2-15.7 L 410) HEMATOCRIT (BEAKER) (test code = 27.5 % 34.1-44.9 L 411) MEAN CORPUSCULAR VOLUME (BEAKER) 89.3 fL 79.4-94.8 (test code = 753) MEAN CORPUSCULAR HEMOGLOBIN 29.5 pg 25.6-32.2 (BEAKER) (test code = 751) MEAN CORPUSCULAR HEMOGLOBIN CONC 33.1 GM/DL 32.2-35.5 (BEAKER) (test code = 752) RED CELL DISTRIBUTION WIDTH 14.1 % 11.7-14.4 (BEAKER) (test code = 412) PLATELET COUNT (BEAKER) (test 191 K/CU MM 150-450 code = 756) MEAN PLATELET VOLUME (BEAKER) 10.8 fL 9.4-12.3 (test code = 754) NUCLEATED RED BLOOD CELLS 0 /100 WBC 0-0 (BEAKER) (test code = 413) NEUTROPHILS RELATIVE PERCENT 74 % (BEAKER) (test code = 429) LYMPHOCYTES RELATIVE PERCENT 12 % (BEAKER) (test code = 430) MONOCYTES RELATIVE PERCENT 9 % (BEAKER) (test code = 431) EOSINOPHILS RELATIVE PERCENT 5 % (BEAKER) (test code = 432) BASOPHILS RELATIVE PERCENT 1 % (BEAKER) (test code = 437) NEUTROPHILS ABSOLUTE COUNT 7.02 K/ L 1.56-6.13 H (BEAKER) (test code = 670) LYMPHOCYTES ABSOLUTE COUNT 1.10 K/ L 1.18-3.74 L (BEAKER) (test code = 414) MONOCYTES ABSOLUTE COUNT (BEAKER) 0.82 K/ L 0.24-0.36 H (test code = 415) EOSINOPHILS ABSOLUTE COUNT 0.47 K/ L 0.04-0.36 H (BEAKER) (test code = 416) BASOPHILS ABSOLUTE COUNT (BEAKER) 0.09 K/ L 0.01-0.08 H (test code = 417) IMMATURE GRANULOCYTES-RELATIVE 1 % 0-1 PERCENT (BEAKER) (test code = 2801) BASIC METABOLIC [id number] 13:20:37 Test Item Value Reference Range Interpretation Comments SODIUM (BEAKER) 139 meq/L 136-145 (test code = 381) POTASSIUM (BEAKER) 4.5 meq/L 3.5-5.1 (test code = 379) CHLORIDE (BEAKER) 101 meq/L 98-107 (test code = 382) CO2 (BEAKER) (test 26 meq/L 22-29 code = 355) BLOOD UREA NITROGEN 28 mg/dL 7-21 H (BEAKER) (test code = 354) CREATININE (BEAKER) 6.51 mg/dL 0.57-1.25 H (test code = 358) GLUCOSE RANDOM 107 mg/dL 70-105 H (BEAKER) (test code = 652) CALCIUM (BEAKER) 9.3 mg/dL 8.4-10.2 (test code = 697) EGFR (BEAKER) (test 7 mL/min/1.73 ESTIMAT ED GFR IS code = 1092) sq m NOT ACCURATE CREATININE CLEARANCE IN PREDICTING GLOMERULAR FILTRATION RATE . ESTIMATED GFR I S NOT APPLICABLE FOR DIALYSIS PATIEN TS. Design Engineer ID - AAHAMIDBASI METABOLIC [id number] 10:57:00 Test Item Value Reference Range Interpretation Comments SODIUM (BEAKER) 136 meq/L 136-145 (test code = 381) POTASSIUM (BEAKER) 4.5 meq/L 3.5-5.1 (test code = 379) CHLORIDE (BEAKER) 101 meq/L 98-107 (test code = 382) CO2 (BEAKER) (test 26 meq/L 22-29 code = 355) BLOOD UREA NITROGEN 44 mg/dL 7-21 H (BEAKER) (test code = 354) CREATININE (BEAKER) 8.94 mg/dL 0.57-1.25 H (test code = 358) GLUCOSE RANDOM 112 mg/dL 70-105 H (BEAKER) (test code = 652) CALCIUM (BEAKER) 8.9 mg/dL 8.4-10.2 (test code = 697) EGFR (BEAKER) (test 5 mL/min/1.73 ESTIMAT ED GFR IS code = 1092) sq m NOT ACCURATE CREATININE CLEARANCE IN PREDICTING GLOMERULAR FILTRATION RATE . ESTIMATED GFR I S NOT APPLICABLE FOR DIALYSIS PATIEN TS. Design Engineer ID - [id number] 10:56:21 Test Item Value Reference Range Interpretation Comments PHOSPHORUS (BEAKER) (test code = 5.3 mg/dL 2.3-4.7 H 604) Design Engineer ID - [id number] 10:56:20 Test Item Value Reference Range Interpretation Comments MAGNESIUM (BEAKER) (test code = 2.1 mg/dL 1.6-2.6 627) Design Engineer ID - AAHAMIDCBC W/PLT COUNT & AUTO [id number] 05:09:19 Test Item Value Reference Range Interpretation Comments WHITE BLOOD CELL COUNT (BEAKER) 9.3 K/ L 3.5-10.5 (test code = 775) RED BLOOD CELL COUNT (BEAKER) 2.96 M/ L 3.93-5.22 L (test code = 761) HEMOGLOBIN (BEAKER) (test code = 8.8 GM/DL 11.2-15.7 L 410) HEMATOCRIT (BEAKER) (test code = 26.7 % 34.1-44.9 L 411) MEAN CORPUSCULAR VOLUME (BEAKER) 90.2 fL 79.4-94.8 (test code = 753) MEAN CORPUSCULAR HEMOGLOBIN 29.7 pg 25.6-32.2 (BEAKER) (test code = 751) MEAN CORPUSCULAR HEMOGLOBIN CONC 33.0 GM/DL 32.2-35.5 (BEAKER) (test code = 752) RED CELL DISTRIBUTION WIDTH 14.0 % 11.7-14.4 (BEAKER) (test code = 412) PLATELET COUNT (BEAKER) (test 173 K/CU MM 150-450 code = 756) MEAN PLATELET VOLUME (BEAKER) 10.1 fL 9.4-12.3 (test code = 754) NUCLEATED RED BLOOD CELLS 0 /100 WBC 0-0 (BEAKER) (test code = 413) NEUTROPHILS RELATIVE PERCENT 69 % (BEAKER) (test code = 429) LYMPHOCYTES RELATIVE PERCENT 15 % (BEAKER) (test code = 430) MONOCYTES RELATIVE PERCENT 9 % (BEAKER) (test code = 431) EOSINOPHILS RELATIVE PERCENT 5 % (BEAKER) (test code = 432) BASOPHILS RELATIVE PERCENT 1 % (BEAKER) (test code = 437) NEUTROPHILS ABSOLUTE COUNT 6.45 K/ L 1.56-6.13 H (BEAKER) (test code = 670) LYMPHOCYTES ABSOLUTE COUNT 1.42 K/ L 1.18-3.74 (BEAKER) (test code = 414) MONOCYTES ABSOLUTE COUNT (BEAKER) 0.82 K/ L 0.24-0.36 H (test code = 415) EOSINOPHILS ABSOLUTE COUNT 0.43 K/ L 0.04-0.36 H (BEAKER) (test code = 416) BASOPHILS ABSOLUTE COUNT (BEAKER) 0.10 K/ L 0.01-0.08 H (test code = 417) IMMATURE GRANULOCYTES-RELATIVE 1 % 0-1 PERCENT (BEAKER) (test code = 2801) ANG, TUNNELED CATHETER [id number] 13:35:00Reason for Central Line/PICC?->Need for hemodialysis accessReason for exam:->HD [facility] 1990 Sex: FFINAL REPORT PROCEDURE: Tunneled dialysis catheter placement Procedjace murcia PersonnelAttending physician(s): Imelda Summers physician(s): NoneResident physician(s): NoneAdvanced practice provider(s): None Pre-procedure diagnosis: ESRDPost-procedure diagnosis: SameIndication (QCDR): Performance of hemodialysisAdditional clinical history: None Complications: No immediate co mplications. IMPRESSION: Insertion of right-sided tunneled dialysis catheter, with tip in the expected location of the right atrium. Removal of indwelling non-tunneled dialysis catheter Plan: The catheter may be used immediately. PROCEDURE SUMMARY:- Venous access with ultrasound guidance- Tunneled dialysis catheter insertion with fluoroscopic guidance- Additional procedure(s): None PROCEDURE DETAILS: Pre-procedureConsent: Informed consent for the procedure including risks, benefits and alternatives was obtained and time-out was performed prior to the procedure.Preparation (MIPS): The site was prepared and draped using all elements of maximal sterile barrier technique including sterile gloves, sterile gown, cap, mask, large sterile sheet, sterile ultrasound probe cover, hand hygiene and cutaneous antisepsis with 2% chlorhexidine. Medical reason for site preparation exception (MIPS): Not applicable Anesthesia/sedationLevel of anesthesia/sedation: Moderate sedation (conscious sedation) 1mg Versed, 50mcg fentanylAnesthesia/sedation administered by: Independent trained observer under attending supervision with continuous monitoring ofthe patient\X2019\s level of consciousness and physiologic statusTotal intra-service sedation time (minutes): 30 AccessLocal anesthesia was administered. The vessel was sonographically evaluated and determined to be patent. Real time ultrasound was used to visualize needle entry into the vessel and apermanent image was stored.Vein accessed (QCDR): Internal jugular veinInternal jugular vein patency (QCDR): Patent or otherwise accessible on at least one sideAccess technique: Micropuncture set with 21 gauge needle Catheter placementAn incision was made near the venous access site and the catheter was tunneled subcutaneously to the venous access site. The catheter was advanced via a peel-away sheathinto the vein under fluoroscopic guidance. Catheter tip location was fluoroscopically verified and apermanent image was stored.Catheter placed: Duraflow 2Catheter cuff-to-tip length (cm): 19Catheter flush: Heparin (1000 units/mL) ClosureA sterile dressing was applied.Access site closure technique: Tissue adhesiveCatheter securement technique: Non-absorbable suture Radiation DoseFluoroscopy time (minutes): 0.0 Reference air kerma (mGy): 0.5 Additional DetailsAdditional description of procedure: NoneEquipment details: NoneSpecimens removed: NoneEstimated blood loss (mL): Less than 10Standardized report: [email or web address]_v3 AttestationSigner name: Imelda Hernandez attest that I was present for the entire procedure. I reviewed the stored images and agree with the report as written. Signed: Imelda Nava MDReport Verified Date/Time: 05/20/2021 13:35:01 [facility] Metabolic [id number] 06:54:58 Test Item Value Reference Range Interpretation Comments Sodium (test code = 139 meq/L 771-825 5077-2) Potassium (test code = 4.5 meq/L 3.5-5.1 2823-3) Chloride (test code = 102 meq/L 98-107 2075-0) CO2 (test code = 25 meq/L 22-29 2028-9) BUN (test code = 25 mg/dL 7-21 H 3094-0) Creatinine (test code 5.64 mg/dL 0.57-1.25 H = 2160-0) Glucose (test code = 77 mg/dL 70-105 2345-7) Calcium (test code = 8.8 mg/dL 8.4-10.2 78047-7) EGFR (test code = 9 mL/min/1.73 [place] [address]-8) NOT ACCURATE CREATININE CLEARANCE IN PREDICTING GLOMERULAR FILTRATION RATE . ESTIMATED GFR I S NOT APPLICABLE FOR DIALYSIS PATIENTS. KAREN (test code = KAREN) Design Engineer ID - SITA M Lab Interpretation Abnormal (test code = 03440-7) [facility] METABOLIC [id number] 06:54:58 Test Item Value Reference Range Interpretation Comments SODIUM (BEAKER) 139 meq/L 136-145 (test code = 381) POTASSIUM (BEAKER) 4.5 meq/L 3.5-5.1 (test code = 379) CHLORIDE (BEAKER) 102 meq/L 98-107 (test code = 382) CO2 (BEAKER) (test 25 meq/L 22-29 code = 355) BLOOD UREA NITROGEN 25 mg/dL 7-21 H (BEAKER) (test code = 354) CREATININE (BEAKER) 5.64 mg/dL 0.57-1.25 H (test code = 358) GLUCOSE RANDOM 77 mg/dL 70-105 (BEAKER) (test code = 652) CALCIUM (BEAKER) 8.8 mg/dL 8.4-10.2 (test code = 697) EGFR (BEAKER) (test 9 mL/min/1.73 ESTIMAT ED GFR IS code = 1092) sq m NOT ACCURATE CREATININE CLEARANCE IN PREDICTING GLOMERULAR FILTRATION RATE . ESTIMATED GFR I S NOT APPLICABLE FOR DIALYSIS PATIEN TS. Design Engineer ID - SITA [place] [id number] 17:03:06 Test Item Value Reference Range Interpretation Comments Case Report (test code Surgical Pathology = 104) Report Case: [id number] Authorizing Provider: Ajit Nash MD Collected: 05/15/2021 03:03 PM Ordering Location: [address] Received: 05/15/2021 04:09 PM Service Pathologist: Briana Jenkins MD Specimen: Renal DIAGNOSIS (test code = f8bpzKFbYHWar1yvCWFinC 3220) FuZzEwMzNcZnRuYmpcdWMx IHtccnRmMVxlcGljOTYwMV icnxYpOOVgpEVwR1Tkhace VKkoGM1tQP6ylKijaTYczP AiHLLgXwDuj5jle793qPCw a2tbSSIFwbveeOj8aOmkU8 0yi2C4ClrsX67cfJMeCMQ2 JTOgVYWfaRMiOBBxIKY8RQ QsdUDvY5mtETZzST9bwrdy LDpyCIbbCKGukNB0AORamE IqW1QgQYWmBMqzCNXybuy4 GrInJt8zyDOesXrrSXzqST LqBXQcWOqtZILqTuMuFV0y W1oUReYEBHLUQYXSNKJFC1 CBFI8ZFJBCJRREGH7FF2h5 XHBhclx+ST2vcih+LSBHTE 9NRVJVTEFSIEFORCBWQVND XNxMTsAHISGZS6XKDIAED4 1QQVRJQkxFIFdJVEggVEhS F94WA6WWJcITFYWFU8PZA3 lPUEFUSFkuIFxwYXIgICAg KM8yVk7CYIyiPH1WVBKKE2 7PLcZALBCVZG9PZXPUAD0R W9cBLc4ZGZTgMDOruhh+XH 5cflx+BJPUVXAHL5zWHUFZ RUxZIDYwIFRPIDcwJSBJTl ABOxEHVIFZOMujRvnOGf2Z LSOeM3xJIKVMLGPLAUGLNV TPEi0QXScfQQLfuaq+XH5c flx+LSBBUlRFUklBTCBBTk MvOBRVHTRBJ0tOYjRNQxKW NBXGDOIYHSVTM8ELJpDEYZ SQLCWYJ2WNMT2UT2pRRXiS LKfkKWfMZ9jBAvmVEe7vIV Bhclx+WA6ibob+LSBTRUUg I11NKGVQOL6kaOZcgNgaau RaLHpxh1MmKIbxBJUlFA4z aOxeVXXrJB9aFMViB9bfjN 5qhyz3UiAxZGWjElQ4DALt irE8Ktb2TWKdMPhat3wcj9 WsFXVzBHw6rYxtGtWjEFWi c8kmpsHqHiToTHWnINNiDE KnbKRyY397p8rgh8rnwsUw xSL5CGLzYVG8NByscqNbnc U0NJaovKSlVqK6DZezfyZc CYkfvjHjuyBtNpm6TWVaG2 99HHA2nFsjg7vcMKN9MSAq HVVhHnHhMp3zeSPyH606VC JjEYSDTZEksXt0EFLchiAn lzZdpUSMx912R705t6yrCA HiuoWpsMlWepigz9gaF771 XHBhcGVydzEyMjQwXHBhcG ImbRL8TSGwIC5ofjptEGql EEyrPLXgrzY8MQSkeAOoA6 WxXDMfKT3cgvfiUAA1CEju THQaYNS4DyGiNVYoy0Wgne r1CfQdjf6avt40SZN4h7Jk kNdcXJH7VVF8UaOuAa1axH WuUGUxHT3iBeYcjEEeSKAb vl96oBpcXYbxCFO9SVIncf Mpu1Kwp3qzTkGicyTdG5as A7MfDRNrZNThUCXaPqFhqr Myv6Fda2IxcAOypPc9z0ac VGFqFRNuiAgfw1ouUQA7MQ KcgFCvD9zelU2aILQtCA7r jhfrh0fxIFwxMYyxZDPgmM T0awC4PVKgjLUoD5AysI6b DAPkNQagHOZcbpu3YrInZd 9vdGVyeTcyMFxzYmtwYWdl XHBnbmNvbnRccGduZGVjXH BsYWluXHBsYWluXGYwXGZz MjRccWxcbGFuZzEwMzNcaG ljaFxmMVxkYmNoXGYxXGxv S1ihVlTyDmAuSal3QKVdeY SbFDMrNtg5FEDwvLWgJXNL jBchpC4kUHQthZclsL8tmH O0GSXxuaVmrBXMaN9lBLZM lI5hQsZ0CoWmByS1TQD1VW hccGFyfX0= COMMENT (test code = i7hovKKvGYHmoMM9OqMfVB 4373) Ehg9dyd1VypLYvxQUgJRke vPZfteTkob81vJT0dY22XP 5vCGXuDgI8RBNvmtW3Pbf6 TUUpOALfoHLyF143n3gez1 rlbbUifWN5uKgyWAKdbctb IkH0KPyaAZFkdcltQZa5RP knIMXygNI7WGEfmUPpW9Ms RZTfOP7fakd6GXK5CRhnXT DiBuE0WJDrlNRqIPFbvJhv PHjnu072EUD2RjNjYHWpnc XktKcarC0lHeSfCMHCeAUl ePpjpTAqiDffuf7uS11fpU GwXQ7zQXYzwAAbs7HycKB4 vRXrtUQdLQL4yEUxbpQetb SkU01zc9rguURqtGM6aJCc APQlhh8nOc60tVOcfEffhz 1rgylst4OgaNe1GhNEERKl AP25S0BlqRbfuO5tkQWyVk AiqDSaziDkzqBlp63sCP6c QPDqLKNfM3hitRKaoRZzOJ DcVEGrIVNmTRHxKN0kqc4c AHTehiKadEB7vSvxPbEvKV P4b9BeMdTLwGYzq6JkcFUo vKstdpVoTVViGARjw6BgWI 2OUUbck5ZpRGFYMZLzoIqc rQUlcRDFZDLrOZ4gPKFyiF maGMKocs8yaHQxBRMhl93x wCR5NEc7WVR8A9u0HKUpTk ANqDcvqFFdfTTjl6LnCObm nNpxwcGvexPhgYgfXTQ3LF QuIFxwYXJ9 CPT Code(s) (test code g6ekzXPwNIRqoCU6GeFlYN = 7948) Tzl3mfb2HyoPLoyTUwEYmz xQFwpiAatz17fWX8pF39VZ 8bCZPpUdZ9NQOraaM4Rua4 KZPhIOKffNFzL458w4dcq8 luzwZzhOW4bJpfPTAjcvdz IzT4BBfrAHQkrpaqMXj0DR utTYCnzYN9PNEbgGWiF6Fl JICyXT1vkdy7AIT3DYpsOE KqHoE2BKCwyQLxMLQkwElb LSanm337KQT5YbRpATUckv FhvWcscJ3bUhAcWGZ4VMBi UAfaQAmzSQDrFKIjVCT0BJ Q7VnE0BZtrHQw0BcP2GHXp cn0= CLINICAL HISTORY (test b6qkyWBpBLAwxKA5HyZjWF code = 3356) Mof5bqx9VmmHMajNMjPOoz mLZcwnNkex02sVP4bN15JJ 9wFHOmTcK3GEUuldH6Jpy8 CRVeLSUxrRTfN234a7hvu5 busdVmgQN4vQtqPJMihamo UeF8LAttTNVgbwrrMIi1GO ztQKLkiDG3RGKhxISmW0Vc FJFaLH5aypp2TTZ4SIrvQA KyUdE6SFUdtXLnLYMtaGrw CQalr150OQE2AdVyFKAfnj UxzXuysZ7oNuNwQIELK0tz cGFyfQ== SPECIMEN SOURCE (test z8phsDXoXCKqnBU8NdYvFC code = 3377) Zrb8gew0PhcEJvvTYyEBln zSYnfwTlen13nAB1cN96ZS 2kBITgFuX1KCUqvaD1Ega7 ATSzYERogXOhI457b5syz4 qxwxIwrEM0yWvzSHVabvle XvO4RInsBEHuazmdGOi3UI iyTSBfzRT1NXDzeQMoS2Yg WMMwPU8fhwc9SGQ8EEzuYM UcLyA7YYQcxSLlYDMgmSva QFmdf836RCI7BtBoPUHbiu MdmFiqrC1wUdJaVLURKzNN aWRuZXlccGFyfQ== GROSS DESCRIPTION (test f4gcxLEkQTGxyLQ8TfZuWG code = 3366) Evl8mfl2IpkGArxLHiBNox tVTjzsMiwp84nQT3vM07KV 2vEXTkGqH6SSEecmL5Xnv7 BBDnHUZviXEoU409l3vmb5 ggjwFmuVZ5zKlgQWIkvqlv XkJ7BAnuQSQinxdoHCs7DF iiHXLybGN0BWUmhPKwJ4Pk UTXcFC4dhzo1FWP2YUtgPU ZiGbV7ZPJmdLViCJXoqJka ARzoo366CZM9MuFlIIQjyk SisRajnN7tOdSvYOPLJfWn VGhlIHNwZWNpbWVuIGlzIH HjK3IehrJvJSyuJBZbR88d dGFpbmVycywgYWxsIGxhYm FxKEUwr7z3uXH8pKDwsEU2 yHPupMdkFD4zkGXnWG2SBs HnnySuRZHbTMYmyE1zFB32 qDTjcp7fkBOmOMlzfxOeSj DjQXn5WMMwnA1hLe8eqMWn nF0wJWImLUKqoSUzDYTyBh TzyRnal8EgSHXbhtHbPHKx rgyzbnlmOQ8tVWWuuiGiyI Y6WVLdLGIsHDKjDQLabMKg sjUmRH9ekCxiy5lvV5rioK Jlm1VvpJc2qOXgPQitIVYs bO4yvQ7cA3Lar1X9qIIfIW YiQVOcxlzrzR6wRAKtT0Vu dmVkIGluIHNhbGluZSBpcy IpTAGoQcLxoKTtUsD9aRLz hWSuB92iZZW1eVF8IKqwIL Lif1fnirVhd8DdfL2uaH7h Mor5o1Lek5EdkbHhj4F7OU suzz0xSANcdnvszI3kNTEx K9HsekTeUWynQDPdPBPuez WoKoTgQ56cuT1gbDRsM4Ym NGOwycKux4D7SCXfe8L7DJ Hya2JqROPeNVJjwIGyl5Wg qTO7yqJ3kTWhTX4rsHAuII HvpeQbeTI3vMRxZVVwx1Qy p5PkqhgzXVOifkdfJOFoMS ZccGFyfQ== MICROSCOPIC DESCRIPTION d2bclAWlSILuyIK9TtAiZY (test code = 3371) Kml4syv6NwoTIdbODhKHwp nTByppDqfs95wKB0dK19UG 4zWWGxShH2MOYdqhI3Ego3 JLPiYHXagKZlG542q7xoa6 rurrKcnAM5wRdaBETerhhi MbE6UIfsUSDfdbowVCf2HY vhYGEhvOA2SVCedQYgR8Ft AUPuQB8imxd5WGY2OKrrBH IhYzF3LVUsmMJwUNCwzMoa LRxzg892JUG9NoFqZDSwma AwsCgkjD0cHpKaKROHOZaW HIXKDRVKE8BZR4RVItTpmJ SyXALyeyBBIQL1qV8hcxHv oL70XRThS36aJJAoj6Owxt UqDDawA96xjIB6EMviNZWo BETjOIYpGNC4wGizQiMbOM guAZLkzIQtMLmnu19zlmCk qKsrDTTogv28sV9bvVDkhC CpIJLofH3bANC9rSmlTMNq CDO8FA2kmlIrOIYgDtI1cN wotCZ8EUQdLENpjS8pNIT4 hWEjWCbmESfhi0BpvMn2HV JdjRIoo2LhOz6kR71gHSqa b85allXsxIXqgUXdCZVfW0 7fprDnmHZsV2xjyc2iePLg GCOmAQKmVY5heA3kwpiiM5 xvbWVydWxpIGhhdmUgZXhw ZG3hOULwoHOkKN8nhPUkJM 9zpAKpdLWiohDxqAGwME8g gZFjVTt9zWZlY3OvuFErAZ YscBatCPVjzcLgPwE3tUWa E3krcXYtrLrwRRxqvjZiu0 VnbWVudGFsIFJCQyBmcmFn lJHlmDQrFG6fYEDkeR2hJU K5tAFsANqsdhCkx99kJZY5 EMBbP1NtwMavSVBkZDUqJV 4cEYWniVDlLQBkp291q1Xu xdNkezJvrnKlR1WseTKrm7 EzRNXivY3tqWLftEijm73l jNUoveJtr3Dfro9xmQCyVF LpvzQCtVB7hYNzSEEvMXRh aeNgzoQ2vJDltN31RILyVK GkIUelRPPil5I4TKXtJRO8 HNGcxRW4E5d0TDbbqEBah9 TmlCwyvRJxtZDnc5FsvwW1 xXByBJM1YwDwTRZlFRFkf4 PtzZBfdnVqGZOrz6EuIABg ZCBjaHJvbmljIGluZmxhbW 1ayJinci0hUm8yrHozzIXp zm1kkPJrWVFdZSIdYTBdA1 BxiDpzrJDbi6SfiGZanjZ0 fGLpmR81MQHasSp1vIIeHc BUaGUgcHJveGltYWwgdHVi xIkxowNyaaSdIv1uRTqtkC CrB0LxmZdcNUazdDaoiQ0c bmFpbGVkIGVwaXRoZWxpdW 9bYCqxPKOtjKKsOMTss6Kt bFG4PMgmjYDmyI7qhHifza BhcnRlcmllcyBoYXZlIGZv X2SptHgli5S1UFOvNDpcwV plJOggi3HwEFOcp6ggKHix bJgbiIYxo2taMKh5fCLwkL jsz5vtLgDSk9QhsIBcfxSi rhvyslNslaUlWKR0CDDtw2 xlcyBoYXZlIGNvbmNlbnRy mYYumXgiyF85cV3bsSF4iB mcw5EqrV7aGUCRc6NfuPAu cnRlcmlvbGVzIGhhdmUgZm zpmekuj1ufPW7bwTWgmEPd LiBccGFyXHBhciBTcGVjaW MkROG9ZQrvgcvmLA4vp6Oa qwO7aiouiSLohOEfRKECEu HvmkCkRc6zSRCev7whkaDb XOS9NUnwcmO6PQRrAC2uZ4 Kld9QfgJTef2IrBLDnrROm pTeswhTjUiV5ePeiDDJps6 BjwKKkrcThh5qvt0JaPDS2 uJNhySPpWAN5OEplwA6bSM QrbADcwv6tFA4bSUmwzCOu kmYyKLMoruBqf0orwOwxj7 YkYT0whAPpeYYhpZJ9N4C7 cmVzLlxwYXJccGFyIERpcm WwyOSDwW76hs6ojCYuowZk N7FaM6Q1VAElttJHlEC3a8 spE5u4KYkwAE4jtPJvxiSg CBCwD7Ytv93tWYIep5sfBO BoLGakKR95GYxlzEDzD4aq ou92zMAhYM2jNDTnw3Vob7 fib9TniuRiY5ymaHCrfMqa LlxwYXJccGFyIEltbXVub2 MqiG5oGPAhUO6qPAYttY3o kS5zqezlWYCpfqn0WAXxQE fWIpOqHBkoUX18BPjdBI00 mkMolRJqeEisSc8cOqvqeF 0bzMMlxjAio2XehV2sxviv qUDvcExgoeSdBWP2dhIuhq LoYA56RaXymGEtZYUsLzWH Z1l1JUCdW96yuzXxjONoTI UicJsughkmMZ9mJC0oz1Xc U8qhnJTjkqYflIsfifYebB SgnfvvFrAwQVYjDMEuq5Cv eLe4MFJpdKHjskxnLsB3cU F3eXGbPKJhv1YfHDLlLRCh eaOjfZBjRMNmPuIPB021DB CxA32atrNeoKQfNMDufgxn WIyxd6NyuP9zkuinGEBbZu rbDOQjgdz8BXYgWyA9PJVh S53iekDquSWmOOPxmdhqMG fzj5WgdU0cpdygHK13zoUo sPIvqIfaKzgdKTMdN3RzVB KyiAFjqYAqSVF3PXqvdG1w LlxwYXJcdGFiIEMxcTogc2 CpaWJjrWNvRF7dy1VcJ2eo xYZwcETerpesAh9vsmCaWD MnHY70AMUtJbmiMa6iCAak VVN9VKTgZLpng1QxvE6mwl disFVdQLYuCvDNsOGyrG7a Q0XnTrAmHEhcPN44MCcgrH ErGS3qoGWiYOO8BUpofH5q W8LarOAyxE0cddMwPNFyIM Mnb9KkoPEwdiEckissbJPl mKHgbzabFy3iWJLvgjj4EI ChP2PrxDL0KWUpOArlQU80 FLaxlYHzWP4xsKUhNFQ3ZE mbyE6qQ2WezLYcoC2kcfAq XIExTPGxt3EbeYYxfwLxct zzgOXatLYytkwaCx6qyMAf HAHgGxAJZW9uUUP2CELuO9 1lbnRhbCBtZXNhbmdpYWwg b8ZeoM4qzxwyJG18cbCjsO XjoJciEyneNEWyX9UlQCRu dVSguZEwTIB4CXjegK2eEj gzJXPqlNWzYMFulPXqi9s4 U4vanlAlDJCxkGetx9SnVJ TdjXPyQXUdw8HnlN0wuA5d Kkk9c3Aaj5AdewSgPWH1JJ xobG9iLRjzpxAuFlYahrQf urK4iO26b5o0NRPjl3HsNN EopsRrm9knj03zzC9gyMS2 APHgfUWwo9PelBQ5OLZkPB LczOe8lZSeXTPsb4s8wIZw k6NvxLh5ESIep061ik8vST NuYYIalTDiyy3wTUPocxhe QSLcROfoE84rp4EiLfULoC PzuBIkfsKXoUUdq5Wxp5M7 WfysCYYeBPwwX9zrr6CptE miwpCcbTA2p8utP6u9OMPd pSUjDHubXKApxQEkRVD9ZS gyVYBgy2ZdoSiluuRcpjN5 WMHzNBKfp3Szv2xlo2Ydng ZvLB1aYBHozBCpeLicnVjp zl7iQMTvaJGxt2UmMxXrrI 4pKYK8eBQjVyHoaJSpDOUg aUTxw3NndYN4pALjkENlbH GooG5crBhizbbyEBvefVsc VUKso53ua1VguDejVRrvl8 6nsqAhPGIirLx0wvVwiIR1 U8U8atSxntH6QNPzzmL8yP R6VKRjBLUfrW8vPHB8vLEh NGOdp8LrAG39LO0juUEqVT 4qUOqvBM6hNB6nlb0izRW2 nWxjy24qb4EkZFXzJLXnLY xaLQCmQgE6k6Syj7YrFL4c o7YcJPaoAVfnpsNbCJTnE8 Qys98an8w9dAFjeaWukPva fArzpFHcIDcsNFE3ZZkyhP 5xXuOZatHqd7DejVJmQ73c dT48hqAaVFBnZLXbFA8dRT RoZSBtZXNhbmdpYWwgbWF0 ced8BRyxTCJ6wWNaYZXwQe BTdWJlbmRvdGhlbGlhbCwg o0MmIJKccGpzeDgxcJbdGW 5dLX3qf7NiL0ajyX5sQCAi pXRsJC3phLLdSGJxvNFblU Sasq1rHC6dNGhrwP4qqV9l IGNvbXBsZXgtdHlwZSBkZX Knq7a2bsKedqGhnc88IUAk LWVtouLbCWNjTU5bxOSuAJ Dfs8PowQApE7Oex7XeJMNy ZSBleHRlbnNpdmVseSBlZm RnT7TbDiQokZMqvR== SPECIAL STUDIES (test e0xdqUPaAGLgsRP0KhOgJN code = 3376) Otz1hov0UhaXDmbXFrROtj rSUmckRttp50iSL7sB02QY 6cHAFtBeT8EDDpulQ6Zdf1 EBSjEKMzdQZnR073HGFrGU QysIlmlpn1eM25WFCnzD9j dGJsIDtccmVkMFxncmVlbj EwQnf7VCZ8sDocMPUsmylw NkA7DXbsXNRmwagiZLw7HQ zcIGKeoGA3YGAnfFVoF5Jd WNXeSU2cnny4CXF8BHdiPN JoDjH0DGYurFKkPTAbdUvh JLcmz953QFL8YnEuSIUqqj UxqEgoyB7nJmDcJwIjEuib ZjEgVGhlIGludGVycHJldG Z9kA7xGO2mSBKfhLHdV9Kz TNJlcnWliHFoXNP3bDQgkP FzSA7nCAemnDTst8bos2Mt X5tyeVwjbMO6LS8sEVEfCZ NrYHbgl7KtiQ5sKifcXHFo fOToIYWvgqQko9ucK4tyJN IkXYW8GV3mvsSbBzSaZZ4s bR70y2Ycp43hx39xxB4qbF UlekFuS66ktMXgnVIra2Xb RRBpqmXgjNV1BCGzFNfveq ezr4e5uKC6zEIatRBbtWT4 aXNzdWUuICBUaGVzZSBjb2 82qm8rULDjhDKxqmDngQ6d ERnrhscybOSfIQ6dCQXzUB EwIEElIW45tfGlYX6qjFWv c7bwfnLwfXAhu7AorJP3YK UwiYPwbwpjLw7fOR16JDSb DNttyP4ksKDdqfHnTS0xOS 1wF7O3gNOlALSepxEsi2cr ARcnNY9fTDWrvWgvLtbxES OsLOCaejFlkTY5DAOtnQCo WJWcbMGoQCzqlFEuc8czf4 GdQ2keaXnytWZ6TWUwB7kj qWExeXQ5UHW1wV4cUHoqkc GaPEXqw9OjNQWrNDUyFhE4 wD2oLZH1LsQNoLrpBXB2Dp E0WDktEDAaES1nHWojOHgz G5FokPTjMLDUSVMic8sxV1 lgXYUkl5YovC4ogYD6rLFb TBYbhGE8RCKkMYT7IPqncF VoYSUsMKVmoKCxeRIyIs2l uPBaC8KgC7ytwfFxfDKbaT B8yJDhDKlpgrArRDF6TVXi oJ0fBP6eLIIneIZxXQ4rxS RmMMVwVWGgSNAmPJIpa7Cs ZUEpqy92GIQxLxzbpVtfVR FcYb2bCx4qLXDzcpCiBCI7 QnVPNS7fqlzuhKQgmKwiuw 1dXFbjJUBZRFHjXZIgYYB4 PIJqdI9nNEE0cLK6KXV0X0 grE5jaFSTdznDvME3sTGMp jDBbkmKyTEgmHD4oaANkHJ Qwe7BozgisIXEzAEA0RFI9 GZsvAALdQCXfHc1zHGMjoR 5jM6SbZWQ4voChk7BdBzBD iZXzhX90tZFjno97JKXmCB LuV4UyKHTjRFQdJHanldKh bTnhHHQwy20glRKyrkEde3 PckqLnAKCqD7alJJAnxZGb lUBlb8PkuA9fuUUuhxIvPJ X1gYCeLXWdzH5eNNGtlIee XCGptN3iB4TwQRitAa9oQG UtefpqBU3kdi99BL6alzJt ZV2fnzGzQH84oqQlLgRxYF q2PSjALDxWJVv4MBObjsWp fMGkrDWnPQJsiG9jmCKhCd 9ybSBoaWdoIGNvbXBsZXhp pNvxC5hsdwvgOZqsjUWdt1 OxhW0lkPR5XSC5fI7iDjxx VTMkgREbQGRxB8tjwGKahJ Cesj9sYNZlaE5aIQDzsiZW GYFhslThgMC7zF8hGFBtjv WsKMkdY2Ypk92eoIgfud6q X56zrNIpcIWvaV0sDKwter LtUXHis4VwJYBsJXAjQGI0 VHMoHALjyrSpHY1cjIz2pL AiNMYOXxOUJILxk8lyQ8im wBUmm8SipY9smGwsG9pGNW OzCNN5KXCeRTI2GZdiRND9 GdZnOwYvpC4phhXIseSeeS LdFXVoj16yIjC0FWBiSCpb uIF6z56aUJWPDBf6LMArXf MCsBHfSG6pgY9lM3DkDOmk ssJgaB12JCPpmdU6LIQnFv ubfLawZPWdsP1qmPwrVwKm AYKkh8ksC1uenRDsvRWGJ6 xCOs5qhNWkkP== Gross assessment was [facility] performed at ([facility], = 2777) Department of Pathology, [address] [place] [address], Technical component was [facility] performed at ([facility], = 2778) Department of Pathology, [address] [place] [address], Professional component [facility] was performed at ([facility], code = 2779) Department of Pathology, [address] [place], [place] [id number], [facility] [id number] 17:03:06Surgical Pathology Report Case: [id number] Authorizing Provider: Ajit Nash MD Collected: 05/15/2021 03:03 PM Ordering Location: [address] Received: 05/15/2021 04:09 PM Service Pathologist: Briana Jenkins MD Specimen: Renal A. KIDNEY, LEFT, CORE NEEDLE BIOPSY: - GLOMERULAR AND VASCULAR CHANGES, COMPATIBLE WITH THROMBOTIC MICROANGIOPATHY. - FOCAL AND SEGMENTAL GLOMERULOSCLEROSIS. 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 - SEE COMMENT. Signing Pathologist Direct Phone Line: [phone] signed by Briana Jenkins MD on 05/19/2021 at 5:03 PMThe light microscopic and ultrastructural features are consistent with thrombotic microangiopathy. Patient's history of hypertension and pre eclampsia appear to be major contributing factors. Although other causes of TMA like TTP, atypical HUS and drugs cannot be completely excluded. Clinical correlation is suggested. 97721, 53968 X 3, 34569 x 8, 42317GQWR. KidneyA. The specimen is received in 3 containers, all labeled with the patient's name, MRN and accession number.Received in formalin are 3 hollis soft tissue cores ranging 0.2 centimeters to 1.5 cm in length which is submitted in toto in cassette A1.Received in saline is a 1.2 cm of tissue core that is frozenfor immunofluorescent studies. Received in the is 0.2 cm in length hollis soft tissue core that is sentto the EM lab for further processing.YFLIGHT MICROSCOPY: Sections show 2 cores of renal cortex (25%)and medulla. Glomeruli: Approximately 14 glomeruli are examined, of which 9 are glomerulus is globally sclerotic. One glomerulus has segmental sclerosis. The remaining glomeruli have expanded mesangial matrix and mesangial hypercellularity. Few of the glomeruli have segmental RBC fragments. One glome rulus has congested capillaries. No double contours or crescents or definite thrombi are seen.Tubules and interstitium: There is about 60- 70% patchy interstitial fibrosis with tubular atrophy and associated chronic inflammation. Foamy macrophages are focally present in the interstitium. The proximal tubules are focally ectatic with hobnailed epithelium. Vessels: Interlobular arteries have focally severe intimal sclerosis with mucoid hyperplasia. Focal arteries and arterioles have concentric myointimal thickening, Focal arterioles have fibrinoid material. Special stains: Stormy trichrome, PAS and Constantino silver stains were necessary for evaluation of this biopsy and showed expected staining patterns of internal control tissue matrix structures.Direct Immunofluorescence:Histology: H&E-stained sections show 1 segmentally sclerotic and 2 obsolescent glomeruli.Immunofluorescence findings: IgA: se gmental entrapment, 2-3+, positive staining tubular casts present. IgG: segmental capillary and mesangial granular staining 2-3+, positive staining tubular casts present IgM: segmental mesangial staining, 2-3+. C3: segmental mesangial staining/entrapment, 2+, focal arterial staining. C1q: segmental me sangial staining/entrapment, 2+, focal arterial staining Fibrinogen: segmental mesangial staining/entrapment, 2+, focal arterial staining.. [place]: segmental mesangial staining/entrapment, 2+, focal arterial staining. Lambda: segmental mesangial staining/entrapment, 2+, focal arterial staining.All polyclonal antibodies used for immunofluorescence staining have been previously tested and shown to haveappropriate reactivities with positive control specimens. Diagnostic Electron Microscopy:Thick section histology: Toluidine blue-stained sections reveal 1 obsolescent and 1 partial, non sclerotic glomerulus. Ultrastructural examination: Examination of the glomerular ultrastructure reveals that the glomerular basement membrane is of normal thickness. There is diffuse subendothelial rarefaction with endothelial cell swelling. No double contours are seen. The mesangial matrix is expanded. Subendothelial, subepithelial, and mesangial/paramesangial electron-dense, immune complex-type deposits are not present. Podocyte foot processes are extensively effaced. The interpretation of this case included theuse of immunohistochemistry or special stains.Control Slides Examined: In-house known positive controls were evaluated along with the test tissue. These control slides run alongside of the patients sample show appropriate staining. Internal positive and negative controls when available are evaluatedImmunohistochemistry technical testing was performed at [facility], Pathology Laboratory where it was developed and its performance characteristics were determined. It has not been cleared or approved by the U.S. Food and Drug Administration. The FDA has determined that such clearance or approval is not necessary. The test is used for clinical purposes. It should not be regardedas investigational or for research. This laboratory is certified under the Clinical Laboratory Improvement Amendments of 1988 (CLIA-88) as qualified to perform high complexity clinical laboratory testing.Technical processing for EM evaluation, and electron microscopy imaging was performed at [facility], CV Pathology laboratory, CLIA # [id number], [address] [place] [address], [address], [place] [address]. The EM images were interpreted by the reporting pathologist at [facility], Department of Pathology, [address] [place] [address], [facility] of [facility], [address] [place] [address], [facility], Department of Pathology, [address] [place] [address], [id number] 13:11:20 Test Item Value Reference Interpretation Comments Range Metanephrine (test 67 pg/mL See_Comment H This jaquan t was developed code = 6599613) and its anal ytical performance characteristics havebeen determined by [facility].It h as not been cleared or appr abigail by FDA. This assay has been validatedpursua nt to the CLIA regulation s and is used for clinic al purposes. [Auto mated message] The sy stem which generated this result transmitted ref erence range: < OR = 5 7. The reference range was not used to interpr et this result as abdiaziz l/abnormal. Normetanephrine 56 pg/mL See_Comment This test w as developed (test code = and its analyti aviva 2027765) performance characteristics havebeen determined by [facility].It h as not been cleared or appr abigail by FDA. This assay has been validatedpursua nt to the CLIA regulation s and is used for clinic al purposes. [Auto mated message] The sy stem which generated this result transmitted ref erence range: < OR = 1 48. The reference range was not used to interpr et this result as abdiaziz l/abnormal. Total Metanephrine 123 pg/mL See_Comment Elevatio ns > 4-fold upper (test code = reference range : strongly 9823204) suggestive of apheochromocyto ma(1). Elevations >1 - 4-fold upper reference range:significa nt but not diagnostic, may be due to medications or stress. Suggestrunning 24 hr urine fractionated me tanephrines and serum Chrom ogranin A forconfirmation . Reference: (1) Alondra Carolina et al, Plasma Pleat Taper mogranin A or Urine FractionatedMet anephrines Follow-Up Testi ng Improves the Diagnostic Accuracy of PlasmaFractiona john Metanephrines f or Pheochromocytom a. The Journal of ClinicalEndocri nology and Metabolism 93 ( 1),91-95, 2008. For addit ional information, pl ease refer tohttp://educat ion.Scannx/f aq/MetFract Free(This link is being provided for informational/e ducational purposes only.) This test was developed a nd its analytical perf ormance characteristics havebeen determined by [facility].It h as not been cleared or appr abigail by FDA. This assay has been validatedpursua nt to the CLIA regulation s and is used for clinic al purposes. [Auto mated message] The sy stem which generated this result transmitted ref erence range: < OR = 2 05. The reference range was not used to interpr et this result as abdiaziz l/abnormal. KAREN (test code = Performing Lab KAREN) EZ [facility] [address] [place] [address] Maurice Larsen MD, PhD, ARYAN Lab Interpretation Abnormal (test code = 86619-7) [facility] Screen, [id number] 10:04:01 Test Item Value Reference Range Interpretation Comments Preg Test, Ur (test code = 2112-1) Negative [facility]iumPREGNANCY SCREEN, [id number] 10:04:01 Test Item Value Reference Range Interpretation Comments TEST URINE (BEAKER) (test Negative code = 583) BASIC METABOLIC [id number] 05:16:14 Test Item Value Reference Range Interpretation Comments SODIUM (BEAKER) 138 meq/L 136-145 (test code = 381) POTASSIUM (BEAKER) 5.0 meq/L 3.5-5.1 (test code = 379) CHLORIDE (BEAKER) 103 meq/L 98-107 (test code = 382) CO2 (BEAKER) (test 21 meq/L 22-29 L code = 355) BLOOD UREA NITROGEN 60 mg/dL 7-21 H (BEAKER) (test code = 354) CREATININE (BEAKER) 9.56 mg/dL 0.57-1.25 H (test code = 358) GLUCOSE RANDOM 93 mg/dL 70-105 (BEAKER) (test code = 652) CALCIUM (BEAKER) 8.5 mg/dL 8.4-10.2 (test code = 697) EGFR (BEAKER) (test 5 mL/min/1.73 ESTIMAT ED GFR IS code = 1092) sq m NOT ACCURATE CREATININE CLEARANCE IN PREDICTING GLOMERULAR FILTRATION RATE . ESTIMATED GFR I S NOT APPLICABLE FOR DIALYSIS PATIEN TS. Design Engineer ID - SITA MBASIC METABOLIC [id number] 06:54:06 Test Item Value Reference Range Interpretation Comments SODIUM (BEAKER) 139 meq/L 136-145 (test code = 381) POTASSIUM (BEAKER) 4.6 meq/L 3.5-5.1 (test code = 379) CHLORIDE (BEAKER) 104 meq/L 98-107 (test code = 382) CO2 (BEAKER) (test 20 meq/L 22-29 L code = 355) BLOOD UREA NITROGEN 45 mg/dL 7-21 H (BEAKER) (test code = 354) CREATININE (BEAKER) 7.65 mg/dL 0.57-1.25 H (test code = 358) GLUCOSE RANDOM 89 mg/dL 70-105 (BEAKER) (test code = 652) CALCIUM (BEAKER) 9.0 mg/dL 8.4-10.2 (test code = 697) EGFR (BEAKER) (test 6 mL/min/1.73 ESTIMAT ED GFR IS code = 1092) sq m NOT ACCURATE CREATININE CLEARANCE IN PREDICTING GLOMERULAR FILTRATION RATE . ESTIMATED GFR I S NOT APPLICABLE FOR DIALYSIS PATIEN TS. Design Engineer ID - BRUCE Riggs, [id number] 21:09:34 Test Item Value Reference Range Interpretation Comments PRA,LC/MS/MS 1.22 ng/mL/h 0.25-5.82 This test was developed (test code = and its analyti aviva 2827704) performance characteristics havebeen determined by [facility] [place].It h as not been cleared or approved by FDA. This as say has been validatedp ursuant to the CLIA reg ulations and is used for clinical purposes. KAREN (test Performing Lab code = KAREN) EZ [facility] [address] [place] [address] Maurice Larsen MD, PhD, ARYAN [facility] METABOLIC [id number] 06:21:05 Test Item Value Reference Range Interpretation Comments SODIUM (BEAKER) 135 meq/L 136-145 L (test code = 381) POTASSIUM (BEAKER) 5.2 meq/L 3.5-5.1 H (test code = 379) CHLORIDE (BEAKER) 103 meq/L 98-107 (test code = 382) CO2 (BEAKER) (test 21 meq/L 22-29 L code = 355) BLOOD UREA NITROGEN 40 mg/dL 7-21 H (BEAKER) (test code = 354) CREATININE (BEAKER) 7.47 mg/dL 0.57-1.25 H (test code = 358) GLUCOSE RANDOM 89 mg/dL 70-105 (BEAKER) (test code = 652) CALCIUM (BEAKER) 8.8 mg/dL 8.4-10.2 (test code = 697) EGFR (BEAKER) (test 6 mL/min/1.73 ESTIMAT ED GFR IS code = 1092) sq m NOT ACCURATE CREATININE CLEARANCE IN PREDICTING GLOMERULAR FILTRATION RATE . ESTIMATED GFR I S NOT APPLICABLE FOR DIALYSIS PATIEN TS. Design Engineer ID - CHARLOTTE GCBC with platelet count + automated [id number] 05:35:02 Test Item Value Reference Range Interpretation Comments WBC (test code = 6690-2) 9.4 See_Comment [A utomated message] The system [employer] generated this result transmitted ref erence range: 3.5 - 10 .5 K/L. The refe rence range was not u sed to interpret this result as normal/abnor mal. RBC (test code = 789-8) 2.75 See_Comment L [Au tomated message] The system [employer] generated this result transmitted ref erence range: 3.93 - 5 .22 M/L. The refe rence range was not u sed to interpret this result as normal/abnor mal. MCHC (test code = 786-4) 34.5 See_Comment L [A utomated message] The system [employer] generated this result transmitted ref erence range: 32.2 - 3 5.5 GM/DL. The refe rence range was not u sed to interpret this result as normal/abnor mal. Hematocrit (test code = 23.8 % 34.1-44.9 L 4544-3) MCV (test code = 787-2) 86.5 fL 79.4-94.8 MCH (test code = 785-6) 29.8 pg 25.6-32.2 RDW (test code = 788-0) 14.3 % 11.7-14.4 Platelets (test code = 98 See_Comment L [Aut omated message] 777-3) The system [employer] generated this result transmitted ref erence range: 150 - 45 0 K/CU MM. The referen ce range was not u sed to interpret this result as normal/abnor mal. MPV (test code = 11.4 fL 9.4-12.3 80457-8) nRBC (test code = 413) 0 See_Comment [Aut omated message] The system [employer] generated this result transmitted ref erence range: 0 - 0 /1 00 WBC. The refere nce range was not u sed to interpret this result as normal/abnor mal. % Neutros (test code = 74 % 429) % Lymphs (test code = 12 % 430) % Monos (test code = 7 % 431) % Eos (test code = 432) 6 % % Baso (test code = 437) 0 % # Neutros (test code = 6.92 See_Comment H [Aut omated message] 670) The system [employer] generated this result transmitted ref erence range: 1.56 - 6 .13 K/L. The refe rence range was not u sed to interpret this result as normal/abnor mal. # Lymphs (test code = 1.12 See_Comment L [Auto mated message] 414) The system [employer] generated this result transmitted ref erence range: 1.18 - 3 .74 K/L. The refe rence range was not u sed to interpret this result as normal/abnor mal. # Monos (test code = 0.68 See_Comment H [Autom ated message] 415) The system [employer] generated this result transmitted ref erence range: 0.24 - 0 .36 K/L. The refe rence range was not u sed to interpret this result as normal/abnor mal. # Eos (test code = 416) 0.57 See_Comment H [Au tomated message] The system [employer] generated this result transmitted ref erence range: 0.04 - 0 .36 K/L. The refe rence range was not u sed to interpret this result as normal/abnor mal. # Baso (test code = 417) 0.04 See_Comment [A utomated message] The system [employer] generated this result transmitted ref erence range: 0.01 - 0 .08 K/L. The refe rence range was not u sed to interpret this result as normal/abnor mal. Immature 0 % 0-1 Granulocytes-Relative (test code = 2801) Lab Interpretation (test Abnormal code = 60341-3) [facility] [place] W/PLT COUNT & AUTO [id number] 05:35:02 Test Item Value Reference Range Interpretation Comments WHITE BLOOD CELL COUNT (BEAKER) 9.4 K/ L 3.5-10.5 (test code = 775) RED BLOOD CELL COUNT (BEAKER) 2.75 M/ L 3.93-5.22 L (test code = 761) HEMOGLOBIN (BEAKER) (test code = 8.2 GM/DL 11.2-15.7 L 410) HEMATOCRIT (BEAKER) (test code = 23.8 % 34.1-44.9 L 411) MEAN CORPUSCULAR VOLUME (BEAKER) 86.5 fL 79.4-94.8 (test code = 753) MEAN CORPUSCULAR HEMOGLOBIN 29.8 pg 25.6-32.2 (BEAKER) (test code = 751) MEAN CORPUSCULAR HEMOGLOBIN CONC 34.5 GM/DL 32.2-35.5 (BEAKER) (test code = 752) RED CELL DISTRIBUTION WIDTH 14.3 % 11.7-14.4 (BEAKER) (test code = 412) PLATELET COUNT (BEAKER) (test code 98 K/CU MM 150-450 L = 756) MEAN PLATELET VOLUME (BEAKER) 11.4 fL 9.4-12.3 (test code = 754) NUCLEATED RED BLOOD CELLS (BEAKER) 0 /100 WBC 0-0 (test code = 413) NEUTROPHILS RELATIVE PERCENT 74 % (BEAKER) (test code = 429) LYMPHOCYTES RELATIVE PERCENT 12 % (BEAKER) (test code = 430) MONOCYTES RELATIVE PERCENT 7 % (BEAKER) (test code = 431) EOSINOPHILS RELATIVE PERCENT 6 % (BEAKER) (test code = 432) BASOPHILS RELATIVE PERCENT 0 % (BEAKER) (test code = 437) NEUTROPHILS ABSOLUTE COUNT 6.92 K/ L 1.56-6.13 H (BEAKER) (test code = 670) LYMPHOCYTES ABSOLUTE COUNT 1.12 K/ L 1.18-3.74 L (BEAKER) (test code = 414) MONOCYTES ABSOLUTE COUNT (BEAKER) 0.68 K/ L 0.24-0.36 H (test code = 415) EOSINOPHILS ABSOLUTE COUNT 0.57 K/ L 0.04-0.36 H (BEAKER) (test code = 416) BASOPHILS ABSOLUTE COUNT (BEAKER) 0.04 K/ L 0.01-0.08 (test code = 417) IMMATURE GRANULOCYTES-RELATIVE 0 % 0-1 PERCENT (BEAKER) (test code = 2801) Hemoglobin and [id number] 21:54:33 Test Item Value Reference Range Interpretation Comments Hemoglobin (test code 8.2 See_Comment L [Auto mated = 786-4) message] The system which generated this result transmit john reference range : 11.2 - 15.7 GM/ DL. The reference range was not u sed to interpret th is result as normal/abnormal . Hematocrit (test code 24.3 % 34.1-44.9 L = 4544-3) KAREN (test code = KAREN) Design Engineer ID - [id number] Lab Interpretation Abnormal (test code = 28174-6) [facility]iumHEMOGLOBIN AND [id number] 21:54:33 Test Item Value Reference Range Interpretation Comments HEMOGLOBIN (BEAKER) (test code = 8.2 GM/DL 11.2-15.7 L 410) HEMATOCRIT (BEAKER) (test code = 24.3 % 34.1-44.9 L 411) Design Engineer ID - [id number]/S, BIOPSY, RENAL (KIDNEY)2021-05-15 19:01:00Still trying to control patient's blood pressure. Have increased her medications today on 05/10/2021. If BP still over 160 tomorrow then will have to cancel biopsy. Please review vital signs before bringing down for procedureReason for exam:->[facility] : 1990 Sex: FFINAL REPORT History: YOKASTA PROCEDURE: Following informed written consen t, patient was placed in a prone position on the ultrasound stretcher and limited sonographic examination of the patient's kidneys was performed. A skin site was identified, prepped and draped over thepatient's left kidney. 2% lidocaine was given locally for anesthesia. Additionally, the patient received 2 mg IV Versed and 100 mcg IV fentanyl for conscious sedation and pain control. Vital signs weremonitored and remained stable. Conscious sedation and continuous patient monitoring were provided bythe attending radiologist and a registered nurse for 15 minutes during the procedure. Using a posterior approach, ultrasound guidance and an 18-gauge by pins needle, a total of three 18-gauge core tissue samples were obtained from the posterior lower pole cortex of the patient's left kidney and submitted to pathology who was present for the procedure and deemed the samples adequate. Overall, the patient tolerated the procedure well without immediate complications and was discharged from the department in stable condition. FINDINGS: Limited sonographic examination of the patient's left kidney performed prior to, during and following the biopsy demonstrates the needle tip in expected position withinthe posterior left lower pole renal cortex. After the biopsy, a small amount of fluid is seen aroundthe kidney, possibly a tiny post biopsy hemorrhage. The patient was observed in radiology for an extended period of time and remained stable and asymptomatic. There were no other immediate complications. IMPRESSION: 1. Successful ultrasound-guided core biopsy of the left [place] kidney as described above. Signed: Yina Valdes MDReport Verified Date/Time: 05/15/2021 19:01:19 Reading Location: [place] [address] Angio Body Reading Room BASIC METABOLIC [id number] 05:39:12 Test Item Value Reference Range Interpretation Comments SODIUM (BEAKER) 138 meq/L 136-145 (test code = 381) POTASSIUM (BEAKER) 4.6 meq/L 3.5-5.1 (test code = 379) CHLORIDE (BEAKER) 103 meq/L 98-107 (test code = 382) CO2 (BEAKER) (test 25 meq/L 22-29 code = 355) BLOOD UREA NITROGEN 25 mg/dL 7-21 H (BEAKER) (test code = 354) CREATININE (BEAKER) 5.29 mg/dL 0.57-1.25 H (test code = 358) GLUCOSE RANDOM 113 mg/dL 70-105 H (BEAKER) (test code = 652) CALCIUM (BEAKER) 8.4 mg/dL 8.4-10.2 (test code = 697) EGFR (BEAKER) (test 10 mL/min/1.73 ESTIMA JOHN GFR IS code = 1092) sq m NOT ACCURATE CREATININE CLEARANCE IN PREDICTING GLOMERULAR FILTRATION RATE . ESTIMATED GFR I S NOT APPLICABLE FOR DIALYSIS PATIEN TS. Design Engineer ID - CHARLOTTE GProthrombin time/[id number] 05:11:40 Test Item Value Reference Interpretation Comments Range Protime (test code = 13.9 See_Comment [Autom ated 5442-2) message] The system which generated this result transmitted reference range : 11.9 - 14.2 seconds. The reference range was not used to interpret this result as normal/abnormal . INR (test code = 1.09 See_Comment [Automated 2591-6) message] The system which generated this result transmitted reference range : <=5.90. The reference range was not used to interpret this result as normal/abnormal . KAREN (test code = RECOMMENDED KAREN) COUMADIN/WARFARIN INR THERAPY RANGESSTANDARD DOSE: 2.0 - 3.0 Includes: PROPHYLAXIS for venous thrombosis, systemic embolization; TREATMENT for venous thrombosis and/or pulmonary embolus.HIGH RISK: Target INR is 2.5-3.5 for patients with mechanical heart valves. Lab Interpretation Normal (test code = 45133-0) [facility]iumPROTHROMBIN TIME/[id number] 05:11:40 Test Item Value Reference Range Interpretation Comments PROTIME (BEAKER) 13.9 seconds 11.9-14.2 (test code = 759) INR (BEAKER) (test 1.09 See_Comment [Automat ed message] code = 370) The system [employer] generated this result transmitted ref erence range: <=5.90. The reference range was not used to int erpret this result as normal/abnormal . RECOMMENDED COUMADIN/WARFARIN INR THERAPY RANGESSTANDARD DOSE: 2.0 - 3.0 Includes: PROPHYLAXIS forvenous thrombosis, systemic embolization; TREATMENT for venous thrombosis and/or pulmonary embolus.HIGH RISK: Target INR is 2.5-3.5 for patients with mechanical heart valves.CBC W/PLT COUNT & AUTO DIFFERENTIAL 2021-05-15 05:09:24 Test Item Value Reference Range Interpretation Comments WHITE BLOOD CELL COUNT (BEAKER) 9.7 K/ L 3.5-10.5 (test code = 775) RED BLOOD CELL COUNT (BEAKER) 2.94 M/ L 3.93-5.22 L (test code = 761) HEMOGLOBIN (BEAKER) (test code = 8.7 GM/DL 11.2-15.7 L 410) HEMATOCRIT (BEAKER) (test code = 26.3 % 34.1-44.9 L 411) MEAN CORPUSCULAR VOLUME (BEAKER) 89.5 fL 79.4-94.8 (test code = 753) MEAN CORPUSCULAR HEMOGLOBIN 29.6 pg 25.6-32.2 (BEAKER) (test code = 751) MEAN CORPUSCULAR HEMOGLOBIN CONC 33.1 GM/DL 32.2-35.5 (BEAKER) (test code = 752) RED CELL DISTRIBUTION WIDTH 14.4 % 11.7-14.4 (BEAKER) (test code = 412) PLATELET COUNT (BEAKER) (test 112 K/CU MM 150-450 L code = 756) MEAN PLATELET VOLUME (BEAKER) 11.0 fL 9.4-12.3 (test code = 754) NUCLEATED RED BLOOD CELLS 0 /100 WBC 0-0 (BEAKER) (test code = 413) NEUTROPHILS RELATIVE PERCENT 72 % (BEAKER) (test code = 429) LYMPHOCYTES RELATIVE PERCENT 12 % (BEAKER) (test code = 430) MONOCYTES RELATIVE PERCENT 8 % (BEAKER) (test code = 431) EOSINOPHILS RELATIVE PERCENT 7 % (BEAKER) (test code = 432) BASOPHILS RELATIVE PERCENT 0 % (BEAKER) (test code = 437) NEUTROPHILS ABSOLUTE COUNT 6.97 K/ L 1.56-6.13 H (BEAKER) (test code = 670) LYMPHOCYTES ABSOLUTE COUNT 1.15 K/ L 1.18-3.74 L (BEAKER) (test code = 414) MONOCYTES ABSOLUTE COUNT (BEAKER) 0.80 K/ L 0.24-0.36 H (test code = 415) EOSINOPHILS ABSOLUTE COUNT 0.68 K/ L 0.04-0.36 H (BEAKER) (test code = 416) BASOPHILS ABSOLUTE COUNT (BEAKER) 0.02 K/ L 0.01-0.08 (test code = 417) IMMATURE GRANULOCYTES-RELATIVE 0 % 0-1 PERCENT (BEAKER) (test code = 2801) [id number] 23:41:04 Test Item Value Reference Interpretation Comments Range Aldosterone (test 2 ng/dL Adult Ref erence code = 9464908) Ranges for Aldosterone: Upright 8:00-10 :00 am < or = 28 ng/ dL Upright 4:00-6: 00 pm < or = 21 ng/ dL Supine 8:00-10 :00 am 3-16 ng/dL Th is test was developed a nd its analytical perf ormance characteristics havebeen determ ined by [facility] .It has not been cleare d or approved by FDA . This assay has been validatedpursua nt to the CLIA regula tions and is used for clinical purpos es. KAREN (test code = Performing Lab KAREN) [facility] [address] [place] [address] Maurice Larsen MD, PhD, ARYAN [facility] METABOLIC [id number] 05:29:21 Test Item Value Reference Range Interpretation Comments SODIUM (BEAKER) 137 meq/L 136-145 (test code = 381) POTASSIUM (BEAKER) 5.2 meq/L 3.5-5.1 H (test code = 379) CHLORIDE (BEAKER) 103 meq/L 98-107 (test code = 382) CO2 (BEAKER) (test 24 meq/L 22-29 code = 355) BLOOD UREA NITROGEN 43 mg/dL 7-21 H (BEAKER) (test code = 354) CREATININE (BEAKER) 7.39 mg/dL 0.57-1.25 H (test code = 358) GLUCOSE RANDOM 101 mg/dL 70-105 (BEAKER) (test code = 652) CALCIUM (BEAKER) 8.2 mg/dL 8.4-10.2 L (test code = 697) EGFR (BEAKER) (test 6 mL/min/1.73 ESTIMAT ED GFR IS code = 1092) sq m NOT ACCURATE CREATININE CLEARANCE IN PREDICTING GLOMERULAR FILTRATION RATE . ESTIMATED GFR I S NOT APPLICABLE FOR DIALYSIS PATIEN TS. Design Engineer ID - SITA MCBC W/PLT COUNT & AUTO [id number] 05:05:15 Test Item Value Reference Range Interpretation Comments WHITE BLOOD CELL COUNT (BEAKER) 10.3 K/ L 3.5-10.5 (test code = 775) RED BLOOD CELL COUNT (BEAKER) 2.86 M/ L 3.93-5.22 L (test code = 761) HEMOGLOBIN (BEAKER) (test code = 8.4 GM/DL 11.2-15.7 L 410) HEMATOCRIT (BEAKER) (test code = 25.7 % 34.1-44.9 L 411) MEAN CORPUSCULAR VOLUME (BEAKER) 89.9 fL 79.4-94.8 (test code = 753) MEAN CORPUSCULAR HEMOGLOBIN 29.4 pg 25.6-32.2 (BEAKER) (test code = 751) MEAN CORPUSCULAR HEMOGLOBIN CONC 32.7 GM/DL 32.2-35.5 (BEAKER) (test code = 752) RED CELL DISTRIBUTION WIDTH 14.8 % 11.7-14.4 H (BEAKER) (test code = 412) PLATELET COUNT (BEAKER) (test code 98 K/CU MM 150-450 L = 756) MEAN PLATELET VOLUME (BEAKER) 11.5 fL 9.4-12.3 (test code = 754) NUCLEATED RED BLOOD CELLS (BEAKER) 0 /100 WBC 0-0 (test code = 413) NEUTROPHILS RELATIVE PERCENT 73 % (BEAKER) (test code = 429) LYMPHOCYTES RELATIVE PERCENT 11 % (BEAKER) (test code = 430) MONOCYTES RELATIVE PERCENT 7 % (BEAKER) (test code = 431) EOSINOPHILS RELATIVE PERCENT 8 % (BEAKER) (test code = 432) BASOPHILS RELATIVE PERCENT 0 % (BEAKER) (test code = 437) NEUTROPHILS ABSOLUTE COUNT 7.53 K/ L 1.56-6.13 H (BEAKER) (test code = 670) LYMPHOCYTES ABSOLUTE COUNT 1.14 K/ L 1.18-3.74 L (BEAKER) (test code = 414) MONOCYTES ABSOLUTE COUNT (BEAKER) 0.75 K/ L 0.24-0.36 H (test code = 415) EOSINOPHILS ABSOLUTE COUNT 0.81 K/ L 0.04-0.36 H (BEAKER) (test code = 416) BASOPHILS ABSOLUTE COUNT (BEAKER) 0.03 K/ L 0.01-0.08 (test code = 417) IMMATURE GRANULOCYTES-RELATIVE 1 % 0-1 PERCENT (BEAKER) (test code = 2801) Vitamin D, [id number] 05:18:21 Test Item Value Reference Range Interpretation Comments Vitamin D 25-Hydroxy 6.6 ng/mL 6.6-49.9 (test code = 2764) KAREN (test code = KAREN) Effective 04/13/2017: Reference Range ChangeNew: 6.6-49.9 ng/mL Previous: 13.0-47.8 ng/mL Recommended Vitamin D Target Range: 30.0-40.0 ng/mLOperator ID - PIAYA L Lab Interpretation (test Normal code = 40017-7) [facility]iumVITAMIN D, [id number] 05:18:21 Test Item Value Reference Range Interpretation Comments VITAMIN D 25-OH (BEAKER) (test code 6.6 ng/mL 6.6-49.9 = 2764) Effective 04/13/2017: Reference Range ChangeNew: 6.6-49.9 ng/mL Previous: 13.0-47.8 ng/mLRecommended Vitamin D Target Range: 30.0-40.0 ng/mLOperator ID - PIAYA LComprehensive metabolic [id number] 05:08:17 Test Item Value Reference Range Interpretation Comments Protein, Total (test 5.4 See_Comment L [Autom ated code = 2885-2) message] The system which generated this result transmit john reference range : 6.0 - 8.3 gm/dL . The reference range was not u sed to interpret th is result as normal/abnormal . Albumin (test code = 3.2 g/dL 3.5-5.0 L 63104-3) Alkaline Phosphatase 40 U/L 40-150 (test code = 6768-6) Total Bilirubin (test 0.6 mg/dL 0.2-1.2 code = 1975-2) Sodium (test code = 139 meq/L 410-171 5457-2) Potassium (test code 4.8 meq/L 3.5-5.1 = 2823-3) Chloride (test code = 103 meq/L 98-107 2075-0) CO2 (test code = 27 meq/L 22-29 2028-9) BUN (test code = 26 mg/dL 7-21 H 3094-0) Creatinine (test code 4.91 mg/dL 0.57-1.25 H = 2160-0) Glucose (test code = 104 mg/dL 70-105 2345-7) Calcium (test code = 8.2 mg/dL 8.4-10.2 L 91461-4) AST (test code = 11 U/L 5-34 1920-8) ALT (test code = 8 U/L 6-55 1742-6) EGFR (test code = 10 mL/min/1.73 [place] [address]-6) NOT ACCURATE CREATININE CLEARANCE IN PREDICTING GLOMERULAR FILTRATION RATE . ESTIMATED GFR I S NOT APPLICABLE FOR DIALYSIS PATIEN TS. KAREN (test code = KAREN) Design Engineer ID - PIAYA L Lab Interpretation Abnormal (test code = 79816-6) [facility]iumCOMPREHENSIVE METABOLIC [id number] 05:08:17 Test Item Value Reference Range Interpretation Comments TOTAL PROTEIN 5.4 gm/dL 6.0-8.3 L (BEAKER) (test code = 770) ALBUMIN (BEAKER) 3.2 g/dL 3.5-5.0 L (test code = 1145) ALKALINE PHOSPHATASE 40 U/L 40-150 (BEAKER) (test code = 346) BILIRUBIN TOTAL 0.6 mg/dL 0.2-1.2 (BEAKER) (test code = 377) SODIUM (BEAKER) (test 139 meq/L 136-145 code = 381) POTASSIUM (BEAKER) 4.8 meq/L 3.5-5.1 (test code = 379) CHLORIDE (BEAKER) 103 meq/L 98-107 (test code = 382) CO2 (BEAKER) (test 27 meq/L 22-29 code = 355) BLOOD UREA NITROGEN 26 mg/dL 7-21 H (BEAKER) (test code = 354) CREATININE (BEAKER) 4.91 mg/dL 0.57-1.25 H (test code = 358) GLUCOSE RANDOM 104 mg/dL 70-105 (BEAKER) (test code = 652) CALCIUM (BEAKER) 8.2 mg/dL 8.4-10.2 L (test code = 697) AST (SGOT) (BEAKER) 11 U/L 5-34 (test code = 353) ALT (SGPT) (BEAKER) 8 U/L 6-55 (test code = 347) EGFR (BEAKER) (test 10 mL/min/1.73 ESTIMA JOHN GFR IS code = 1092) sq m NOT ACCURATE CREATININE CLEARANCE IN PREDICTING GLOMERULAR FILTRATION RATE . ESTIMATED GFR I S NOT APPLICABLE FOR DIALYSIS PATIEN TS. Design Engineer ID Indra ROWLAND [id number] 05:07:40 Test Item Value Reference Range Interpretation Comments Phosphorus (test code = 5.9 mg/dL 2.3-4.7 H 2777-1) KAREN (test code = KAREN) Design Engineer ID Indra ROWLAND L Lab Interpretation (test Abnormal code = 61928-0) [facility]iumPHOSPHORUS2021-11-10 05:07:40 Test Item Value Reference Range Interpretation Comments PHOSPHORUS (BEAKER) (test code = 5.9 mg/dL 2.3-4.7 H 604) Design Engineer MINNA ROWLAND [id number] 05:07:39 Test Item Value Reference Range Interpretation Comments Magnesium (test code = 2.1 mg/dL 1.6-2.6 95412-2) KAREN (test code = KAREN) Design Engineer ID Indra ROWLAND L Lab Interpretation (test Normal code = 15840-9) [facility]iumMAGNESIUM2021-11-10 05:07:39 Test Item Value Reference Range Interpretation Comments MAGNESIUM (BEAKER) (test code = 2.1 mg/dL 1.6-2.6 627) Design Engineer ID - JANETT LCalcium, Fkyhrbr3423-10-82 04:55:54 Test Item Value Reference Range Interpretation Comments Calcium, Ion (test code = 1993-3) 1.05 mmol/L 1.12-1.27 L pH, Blood (test code = 15271-8) 7.48 Lab Interpretation (test code = Abnormal 70878-6) [facility]iumCALCIUM, [id number] 04:55:54 Test Item Value Reference Range Interpretation Comments CALCIUM IONIZED (BEAKER) (test 1.05 mmol/L 1.12-1.27 L code = 698) PH, BLOOD (BEAKER) (test code = 7.48 1810) CBC W/PLT COUNT & AUTO [id number] 04:47:53 Test Item Value Reference Range Interpretation Comments WHITE BLOOD CELL COUNT (BEAKER) 8.2 K/ L 3.5-10.5 (test code = 775) RED BLOOD CELL COUNT (BEAKER) 3.24 M/ L 3.93-5.22 L (test code = 761) HEMOGLOBIN (BEAKER) (test code = 9.5 GM/DL 11.2-15.7 L 410) HEMATOCRIT (BEAKER) (test code = 28.9 % 34.1-44.9 L 411) MEAN CORPUSCULAR VOLUME (BEAKER) 89.2 fL 79.4-94.8 (test code = 753) MEAN CORPUSCULAR HEMOGLOBIN 29.3 pg 25.6-32.2 (BEAKER) (test code = 751) MEAN CORPUSCULAR HEMOGLOBIN CONC 32.9 GM/DL 32.2-35.5 (BEAKER) (test code = 752) RED CELL DISTRIBUTION WIDTH 14.7 % 11.7-14.4 H (BEAKER) (test code = 412) PLATELET COUNT (BEAKER) (test 114 K/CU MM 150-450 L code = 756) MEAN PLATELET VOLUME (BEAKER) 11.7 fL 9.4-12.3 (test code = 754) NUCLEATED RED BLOOD CELLS 0 /100 WBC 0-0 (BEAKER) (test code = 413) NEUTROPHILS RELATIVE PERCENT 75 % (BEAKER) (test code = 429) LYMPHOCYTES RELATIVE PERCENT 9 % (BEAKER) (test code = 430) MONOCYTES RELATIVE PERCENT 7 % (BEAKER) (test code = 431) EOSINOPHILS RELATIVE PERCENT 8 % (BEAKER) (test code = 432) BASOPHILS RELATIVE PERCENT 0 % (BEAKER) (test code = 437) NEUTROPHILS ABSOLUTE COUNT 6.19 K/ L 1.56-6.13 H (BEAKER) (test code = 670) LYMPHOCYTES ABSOLUTE COUNT 0.72 K/ L 1.18-3.74 L (BEAKER) (test code = 414) MONOCYTES ABSOLUTE COUNT (BEAKER) 0.57 K/ L 0.24-0.36 H (test code = 415) EOSINOPHILS ABSOLUTE COUNT 0.68 K/ L 0.04-0.36 H (BEAKER) (test code = 416) BASOPHILS ABSOLUTE COUNT (BEAKER) 0.02 K/ L 0.01-0.08 (test code = 417) IMMATURE GRANULOCYTES-RELATIVE 1 % 0-1 PERCENT (BEAKER) (test code = 2801) CT, BRAIN, WITHOUT [id number] 22:18:00Unlisted Reason for Exam - Click Yes and Enter Reason Below->No [facility] : 1990 Sex: FFINAL REPORT EXAM/TECHNIQUE: Noncontrast CT of the head. Dose modulati on, iterative reconstruction, and/or weight based adjustment of the mA/kV was utilized to reduce theradiation dose to as low as reasonably achievable. INDICATION: Headache. COMPARISON: None. FINDINGS: Nino-white differentiation is preserved. No acute intracranial hemorrhage. No extra-axial fluid albaro ection.Right inferior frontal encephalomalacia. Ventricles are normal in appearance. Basal cisterns are patent. No midline shift. Cerebellar tonsils are normal in appearance. Orbits are normal. Left anterior ethmoid sinus opacification. Mastoid air cells are clear. No acute osseous processes or suspicious osseous lesion. Midline structures are normal. Visualized face and neck are unremarkable. Impression: No acute intracranial hemorrhage. Signed: Abdulkadir Nunez MDReport Verified Date/Time: 05/12/2021 22:18:02 Double- Stranded DNA (dsDNA) [id number] 10:37:15 Test Item Value Reference Range Interpretation Comments ds DNA Ab (test code = 1055) Negative Negative [facility]iumDOUBLE-STRANDED DNA (DSDNA) [id number] 10:37:15 Test Item Value Reference Range Interpretation Comments ANTI-DNA DS (BEAKER) (test code = Negative Negative 1055) [id number] 06:54:11 Test Item Value Reference Range Interpretation Comments Cortisol, Total (test code 5.4 ug/dL 3.7-19.4 = 2755) KAREN (test code = KAREN) Design Engineer ID - SITA M Lab Interpretation (test Normal code = 13363-7) [facility]iumCORTISOL2021-11-09 06:54:11 Test Item Value Reference Range Interpretation Comments CORTISOL, TOTAL (BEAKER) (test code 5.4 ug/dL 3.7-19.4 = 2755) Design Engineer ID - SITA MBASIC METABOLIC [id number] 06:44:11 Test Item Value Reference Range Interpretation Comments SODIUM (BEAKER) 137 meq/L 136-145 (test code = 381) POTASSIUM (BEAKER) 5.2 meq/L 3.5-5.1 H (test code = 379) CHLORIDE (BEAKER) 101 meq/L 98-107 (test code = 382) CO2 (BEAKER) (test 24 meq/L 22-29 code = 355) BLOOD UREA NITROGEN 60 mg/dL 7-21 H (BEAKER) (test code = 354) CREATININE (BEAKER) 8.13 mg/dL 0.57-1.25 H (test code = 358) GLUCOSE RANDOM 88 mg/dL 70-105 (BEAKER) (test code = 652) CALCIUM (BEAKER) 8.1 mg/dL 8.4-10.2 L (test code = 697) EGFR (BEAKER) (test 6 mL/min/1.73 ESTIMAT ED GFR IS code = 1092) sq m NOT ACCURATE CREATININE CLEARANCE IN PREDICTING GLOMERULAR FILTRATION RATE . ESTIMATED GFR I S NOT APPLICABLE FOR DIALYSIS PATIEN TS. Design Engineer ID - SITA MCBC W/PLT COUNT & AUTO [id number] 06:17:13 Test Item Value Reference Range Interpretation Comments WHITE BLOOD CELL COUNT (BEAKER) 10.5 K/ L 3.5-10.5 (test code = 775) RED BLOOD CELL COUNT (BEAKER) 3.11 M/ L 3.93-5.22 L (test code = 761) HEMOGLOBIN (BEAKER) (test code = 9.0 GM/DL 11.2-15.7 L 410) HEMATOCRIT (BEAKER) (test code = 27.9 % 34.1-44.9 L 411) MEAN CORPUSCULAR VOLUME (BEAKER) 89.7 fL 79.4-94.8 (test code = 753) MEAN CORPUSCULAR HEMOGLOBIN 28.9 pg 25.6-32.2 (BEAKER) (test code = 751) MEAN CORPUSCULAR HEMOGLOBIN CONC 32.3 GM/DL 32.2-35.5 (BEAKER) (test code = 752) RED CELL DISTRIBUTION WIDTH 15.1 % 11.7-14.4 H (BEAKER) (test code = 412) PLATELET COUNT (BEAKER) (test 108 K/CU MM 150-450 L code = 756) MEAN PLATELET VOLUME (BEAKER) 11.1 fL 9.4-12.3 (test code = 754) NUCLEATED RED BLOOD CELLS 0 /100 WBC 0-0 (BEAKER) (test code = 413) NEUTROPHILS RELATIVE PERCENT 76 % (BEAKER) (test code = 429) LYMPHOCYTES RELATIVE PERCENT 11 % (BEAKER) (test code = 430) MONOCYTES RELATIVE PERCENT 7 % (BEAKER) (test code = 431) EOSINOPHILS RELATIVE PERCENT 6 % (BEAKER) (test code = 432) BASOPHILS RELATIVE PERCENT 0 % (BEAKER) (test code = 437) NEUTROPHILS ABSOLUTE COUNT 7.95 K/ L 1.56-6.13 H (BEAKER) (test code = 670) LYMPHOCYTES ABSOLUTE COUNT 1.12 K/ L 1.18-3.74 L (BEAKER) (test code = 414) MONOCYTES ABSOLUTE COUNT (BEAKER) 0.74 K/ L 0.24-0.36 H (test code = 415) EOSINOPHILS ABSOLUTE COUNT 0.61 K/ L 0.04-0.36 H (BEAKER) (test code = 416) BASOPHILS ABSOLUTE COUNT (BEAKER) 0.02 K/ L 0.01-0.08 (test code = 417) IMMATURE GRANULOCYTES-RELATIVE 1 % 0-1 PERCENT (BEAKER) (test code = 2801) SCREEN, [id number] 15:54:03 Test Item Value Reference Range Interpretation Comments TEST URINE (BEAKER) (test Negative code = 583) Eosinophil [id number] 14:16:55 Test Item Value Reference Range Interpretation Comments Eosinophil Smear (test code = No EOS seen No EOS seen 51523-4) Lab Interpretation (test code = Normal 41501-9) [facility]iumEOSINOPHIL SMEAR, [id number] 14:16:55 Test Item Value Reference Range Interpretation Comments EOSINOPHIL SMEAR, URINE (BEAKER) No EOS seen No EOS seen (test code = 1851) Anti-Nuclear Antibody (YUMIKO)2021-05-11 13:06:18 Test Item Value Reference Range Interpretation Comments YUMIKO (test code = 02493-3) Negative Negative KAREN (test code = KAREN) Test performed by IFA method. Lab Interpretation (test Normal code = 01127-1) [facility]iumANTI-NUCLEAR ANTIBODY (YUMIKO)2021-05-11 13:06:18 Test Item Value Reference Range Interpretation Comments ANTI-NUCLEAR ANTIBODY (YUMIKO) (BEAKER) Negative Negative (test code = 418) Test performed by IFA method.Sodium, random [id number] 11:58:37 Test Item Value Reference Range Interpretation Comments Sodium Urine (test 97 meq/L code = 2955-3) KAREN (test code = Reference Range: No KAREN) NormalsOperator ID - CAROLINA F [facility]OD[facility] RANDOM [id number] 11:58:37 Test Item Value Reference Range Interpretation Comments SODIUM URINE (BEAKER) (test code = 97 meq/L 243) Reference Range: No NormalsOperator MINNA FALLON FCreatinine, random urine 2021-05-11 11:58:36 Test Item Value Reference Range Interpretation Comments Creatinine, Ur 48.3 mg/dL (test code = 2161-8) KAREN (test code = Reference Range: No KAREN) NormalsOperator MINNA Dreas [facility]iumCREATININE, RANDOM [id number] 11:58:36 Test Item Value Reference Range Interpretation Comments CREATININE URINE (BEAKER) (test 48.3 mg/dL code = 375) Reference Range: No NormalsOperator MINNA FALLON FProtein, random urine 2021-05-11 10:40:59 Test Item Value Reference Range Interpretation Comments Protein, Urine (test code 172 mg/dL 0-14 H = 2888-6) KAREN (test code = KAREN) Design Engineer MINNA FALLON F Lab Interpretation (test Abnormal code = 48475-8) [facility]iumPROTEIN, RANDOM [id number] 10:40:59 Test Item Value Reference Range Interpretation Comments PROTEIN, URINE (BEAKER) (test code 172 mg/dL 0-14 H = 1569) Design Engineer MINNA FALLON FUrinalysis w/[id number] 10:37:39 Test Item Value Reference Range Interpretation Comments Color, UA (test code Light Yellow = 5778-6) Clarity, UA (test Hazy code = 5767-9) Specific Spray, UA 1.009 1.001-1.035 (test code = 5811-5) pH, UA (test code = 7.5 5.0-8.0 5803-2) Protein, UA (test 200 mg/dL Negative A code = 14600-4) Glucose, UA (test Negative Negative code = 365) Ketones, UA (test Negative Negative code = 2514-8) Bilirubin, UA (test Negative Negative code = 23904-0) Blood, UA (test code Large Negative A = 02624-9) Nitrite, UA (test Negative Negative code = 5802-4) Leukocytes, UA (test Moderate Negative A code = 5799-2) Urobilinogen, UA 0.2 mg/dL 0.2-1.0 (test code = 50716-6) RBC, UA (test code = 5 See_Comment [Autom ated 59693-5) message] The system which generated this result transmit john reference range : /HPF. The reference range was not used to interpret this result as normal/abnormal . WBC, UA (test code = 25 See_Comment [Autom ated 5821-4) message] The system which generated this result transmit john reference range : /HPF. The reference range was not used to interpret this result as normal/abnormal . Bacteria, UA (test Rare code = 52282-4) Squam Epithel, UA 7 See_Comment [Automate d (test code = 71118-4) messag e] The system which generated this result transmit john reference range : /HPF. The reference range was not used to interpret this result as normal/abnormal . Casts (test code = 1 See_Comment [Automat ed 9842-6) message] The system which generated this result transmit john reference range : /LPF. The reference range was not used to interpret this result as normal/abnormal . Crystals, Urine (test None Seen code = 81803-7) Specimen Source (test code = 2795) KAREN (test code = KAREN) Design Engineer ID - [auto]Design Engineer ID - tech Lab Interpretation Abnormal (test code = 82300-4) [facility]iumURINALYSIS W/ [id number] 10:37:39 Test Item Value Reference Range Interpretation Comments COLOR (BEAKER) (test code = 470) Light Yellow CLARITY (BEAKER) (test code = Hazy 469) SPECIFIC GRAVITY UA (BEAKER) 1.009 1.001-1.035 (test code = 468) PH UA (BEAKER) (test code = 467) 7.5 5.0-8.0 PROTEIN UA (BEAKER) (test code = 200 mg/dL Negative A 464) GLUCOSE UA (BEAKER) (test code = Negative Negative 365) KETONES UA (BEAKER) (test code = Negative Negative 371) BILIRUBIN UA (BEAKER) (test code Negative Negative = 462) BLOOD UA (BEAKER) (test code = Large Negative A 461) NITRITE UA (BEAKER) (test code = Negative Negative 465) LEUKOCYTE ESTERASE UA (BEAKER) Moderate Negative A (test code = 466) UROBILINOGEN UA (BEAKER) (test 0.2 mg/dL 0.2-1.0 code = 463) RBC UA (BEAKER) (test code = 5 /HPF 519) WBC UA (BEAKER) (test code = 25 /HPF 520) BACTERIA (BEAKER) (test code = Rare 517) SQUAMOUS EPITHELIAL (BEAKER) 7 /HPF (test code = 516) CASTS (BEAKER) (test code = 1 /LPF 1579) CRYSTALS, URINE (BEAKER) (test None Seen code = 1521) SOURCE(BEAKER) (test code = 2795) Design Engineer ID - [auto]Design Engineer ID - techPeripheral Blood Smear - Path Review 2021-05-11 09:20:57 Test Item Value Reference Range Interpretation Comments Pathologist Review No circulating blasts. (test code = 2640) No significantly increased schistocytes. Pathologist: (test Carlos Esquivel, code = 2849) Tommie(electronic signature) [facility]iumPERIPHERAL BLOOD SMEAR - PATHOLOGIST REVIEW 2021-05-11 09:20:57 Test Item Value Reference Range Interpretation Comments PERIPHERAL SMR REVIEW No circulating blasts. (BEAKER) (test code = No significantly 2640) increased schistocytes. [id number] Carlos Marcelinoheathjonathan, (BEAKER) (test code = M.DKemi(electronic 2849) signature) Peripheral Blood Smear - Hold [id number] 08:50:08 Test Item Value Reference Range Interpretation Comments Peripheral Smear Save (test code = saved 1815) [facility]iumPERIPHERAL BLOOD SMEAR - HOLD [id number] 08:50:08 Test Item Value Reference Range Interpretation Comments PERIPHERAL SMEAR SAVE (BEAKER) (test saved code = 1815) BASIC METABOLIC [id number] 05:30:46 Test Item Value Reference Range Interpretation Comments SODIUM (BEAKER) 137 meq/L 136-145 (test code = 381) POTASSIUM (BEAKER) 4.8 meq/L 3.5-5.1 (test code = 379) CHLORIDE (BEAKER) 102 meq/L 98-107 (test code = 382) CO2 (BEAKER) (test 25 meq/L 22-29 code = 355) BLOOD UREA NITROGEN 44 mg/dL 7-21 H (BEAKER) (test code = 354) CREATININE (BEAKER) 6.07 mg/dL 0.57-1.25 H (test code = 358) GLUCOSE RANDOM 95 mg/dL 70-105 (BEAKER) (test code = 652) CALCIUM (BEAKER) 8.1 mg/dL 8.4-10.2 L (test code = 697) EGFR (BEAKER) (test 8 mL/min/1.73 ESTIMAT ED GFR IS code = 1092) sq m NOT ACCURATE CREATININE CLEARANCE IN PREDICTING GLOMERULAR FILTRATION RATE . ESTIMATED GFR I S NOT APPLICABLE FOR DIALYSIS PATIEN TS. Design Engineer ID - SITA epatic function [id number] 05:29:36 Test Item Value Reference Range Interpretation Comments Protein, Total (test 4.9 See_Comment L [Autom ated code = 2885-2) message] The system which generated this result transmit john reference range : 6.0 - 8.3 gm/dL . The reference range was not u sed to interpret th is result as normal/abnormal . Albumin (test code = 2.9 g/dL 3.5-5.0 L 18009-0) Total Bilirubin (test 0.7 mg/dL 0.2-1.2 code = 1975-2) Bilirubin, Direct 0.3 mg/dL 0.1-0.5 (test code = 1968-7) Alkaline Phosphatase 29 U/L 40-150 L (test code = 6768-6) AST (test code = 14 U/L 5-34 1920-8) ALT (test code = 14 U/L 6-55 1742-6) KAREN (test code = KAREN) Design Engineer ID - SITA [facility] Interpretation Abnormal (test code = 52300-2) [facility] [id number] 05:29:36 Test Item Value Reference Range Interpretation Comments TOTAL PROTEIN (BEAKER) (test code = 4.9 gm/dL 6.0-8.3 L 770) ALBUMIN (BEAKER) (test code = 1145) 2.9 g/dL 3.5-5.0 L BILIRUBIN TOTAL (BEAKER) (test code 0.7 mg/dL 0.2-1.2 = 377) BILIRUBIN DIRECT (BEAKER) (test 0.3 mg/dL 0.1-0.5 code = 706) ALKALINE PHOSPHATASE (BEAKER) (test 29 U/L 40-150 L code = 346) AST (SGOT) (BEAKER) (test code = 14 U/L 5-34 353) ALT (SGPT) (BEAKER) (test code = 14 U/L 6-55 347) Design Engineer ID - SITA [id number] 05:29:35 Test Item Value Reference Range Interpretation Comments PHOSPHORUS (BEAKER) (test code = 4.3 mg/dL 2.3-4.7 604) Design Engineer ID - SITA [id number] 05:29:34 Test Item Value Reference Range Interpretation Comments MAGNESIUM (BEAKER) (test code = 1.8 mg/dL 1.6-2.6 627) Design Engineer ID - SITA MPROTHROMBIN TIME/[id number] 05:27:17 Test Item Value Reference Range Interpretation Comments PROTIME (BEAKER) 14.1 seconds 11.9-14.2 (test code = 759) INR (BEAKER) (test 1.11 See_Comment [Automat ed message] code = 370) The system [employer] generated this result transmitted ref erence range: <=5.90. The reference range was not used to int erpret this result as normal/abnormal . RECOMMENDED COUMADIN/WARFARIN INR THERAPY RANGESSTANDARD DOSE: 2.0 - 3.0 Includes: PROPHYLAXIS forvenous thrombosis, systemic embolization; TREATMENT for venous thrombosis and/or pulmonary embolus.HIGH RISK: Target INR is 2.5-3.5 for patients with mechanical heart valves.CBC W/PLT COUNT & AUTO DIFFERENTIAL 2021-05-11 05:13:41 Test Item Value Reference Range Interpretation Comments WHITE BLOOD CELL COUNT (BEAKER) 11.4 K/ L 3.5-10.5 H (test code = 775) RED BLOOD CELL COUNT (BEAKER) 3.03 M/ L 3.93-5.22 L (test code = 761) HEMOGLOBIN (BEAKER) (test code = 8.8 GM/DL 11.2-15.7 L 410) HEMATOCRIT (BEAKER) (test code = 27.5 % 34.1-44.9 L 411) MEAN CORPUSCULAR VOLUME (BEAKER) 90.8 fL 79.4-94.8 (test code = 753) MEAN CORPUSCULAR HEMOGLOBIN 29.0 pg 25.6-32.2 (BEAKER) (test code = 751) MEAN CORPUSCULAR HEMOGLOBIN CONC 32.0 GM/DL 32.2-35.5 L (BEAKER) (test code = 752) RED CELL DISTRIBUTION WIDTH 15.8 % 11.7-14.4 H (BEAKER) (test code = 412) PLATELET COUNT (BEAKER) (test 108 K/CU MM 150-450 L code = 756) MEAN PLATELET VOLUME (BEAKER) 11.0 fL 9.4-12.3 (test code = 754) NUCLEATED RED BLOOD CELLS 0 /100 WBC 0-0 (BEAKER) (test code = 413) NEUTROPHILS RELATIVE PERCENT 76 % (BEAKER) (test code = 429) LYMPHOCYTES RELATIVE PERCENT 14 % (BEAKER) (test code = 430) MONOCYTES RELATIVE PERCENT 8 % (BEAKER) (test code = 431) EOSINOPHILS RELATIVE PERCENT 1 % (BEAKER) (test code = 432) BASOPHILS RELATIVE PERCENT 0 % (BEAKER) (test code = 437) NEUTROPHILS ABSOLUTE COUNT 8.66 K/ L 1.56-6.13 H (BEAKER) (test code = 670) LYMPHOCYTES ABSOLUTE COUNT 1.58 K/ L 1.18-3.74 (BEAKER) (test code = 414) MONOCYTES ABSOLUTE COUNT (BEAKER) 0.88 K/ L 0.24-0.36 H (test code = 415) EOSINOPHILS ABSOLUTE COUNT 0.13 K/ L 0.04-0.36 (BEAKER) (test code = 416) BASOPHILS ABSOLUTE COUNT (BEAKER) 0.01 K/ L 0.01-0.08 (test code = 417) IMMATURE GRANULOCYTES-RELATIVE 1 % 0-1 PERCENT (BEAKER) (test code = 2801) SARS-CoV2/RT-PCR (Asymptomatic ONLY)2021-05-10 09:26:37 Test Item Value Reference Range Interpretation Comments SARS-COV2/RT-PCR Negative Not Detected, (test code = Negative, See 10215-6) external report for linked test SARS-COV-2 [facility] PERFORMING LAB (test code = 55954-6) KAREN (test code = Negative result for this KAREN) test determines that SARS-CoV-2 RNA was not present in the specimen above the Limit of Detection (LOD). However, Negative results do not preclude SARS-CoV-2 infection and should not be used as the sole basis for treatment or patient management decisions. Negative results must be combined with clinical observations, patient history, and epidemiological information. A false negative result may occur if a specimen is improperly collected, transported or handled. A false negative result should be considered if patient's recent exposures or clinical presentation indicate that COVID-19 (SARS-CoV-2) is likely and diagnostic tests for other causes of illness are negative. Re-testing should be considered in cases of suspected false negatives. The limit of detection for this assay is 800 copies/mL. This SARS CoV-2 test is a real-time RT-PCR test intended for the qualitative detection of nucleic acid from SARS-CoV-2 in a nasopharyngeal swab specimen collected from individuals suspected of COVID-19 by their healthcare provider. This test has not been Food and Drug Administration (FDA) cleared or approved. This is a modified version of an approved Emergency Use Authorization (EUA) and is in the process of review by the FDA. Once authorized by the FDA, the issued EUA will be effective until the declaration that circumstances exist justifying the authorization of the emergency use of in vitro diagnostic tests for detection and/or diagnosis of COVID-19 is terminated under Section 564(b)(2) of the Act or the EUA is revoked under Section 564(g) of the Act. Fact Sheet for Healthcare Providers:https://www.[employer]/sites/default/f eric/product/documents/F act_Sheet_HC_Providers_L arq_SAGM-UbH-7.pdf Fact Sheet for Healthcare Patients:https://www.[employer]/sites/default/fi les/product/documents/Fa ct_Sheet_Patients_Lyra_S ARS-CoV-2.pdf Performing Laboratory:[facility] [place] [address] [facility]2021-05-10 09:26:37 Test Item Value Reference Range Interpretation Comments SARS-COV2/RT-PCR (test Negative Not Detected, Negative, code = 5151431) See external report for linked test SARS-COV-2 PERFORMING LAB [facility] (test code = 6284524) Negative result for this test determines that SARS-CoV-2 RNA was not present in the specimen above the Limit of Detection (LOD). However, Negative results do not preclude SARS-CoV-2 infection and should not be used as the sole basis for treatment or patient management decisions. Negative results mustbe combined with clinical observations, patient history, and epidemiological information. A false negative result may occur if a specimen is improperly collected, transported or handled. A false negative result should be considered if patient's recent exposures or clinical presentation indicate that COVID-19 (SARS-CoV-2) is likely and diagnostic tests for other causes of illness are negative. Re-testing should be considered in cases of suspected false negatives.The limit of detection for this assay is 800 copies/mL.This SARS CoV-2 test is a real-time RT-PCR test intended for the qualitative detection of nucleic acid from SARS-CoV-2 in a nasopharyngeal swab specimen collected from individuals susp ected of COVID-19 by their healthcare provider.This test has not been Food and Drug Administration (FDA) cleared or approved. This is a modified version of an approved Emergency Use Authorization (EUA) and is in the process of review by the FDA. Once authorized by the FDA, the issued EUA will be effective until the declaration that circumstances exist justifying the authorization of the emergency use of in vitro diagnostic tests for detection and/or diagnosis of COVID-19 is terminated under Section 564(b)(2) of the Act or the EUA is revoked under Section 564(g) of the Act.Fact Sheet for Healthcare Providers:https://www.[employer]com/sites/default/files/product/documents/Fact_Shee g_CA_Gxkdqteuy_Ryyr_BIAL-BlG-1.pdfFact Sheet for Healthcare Patients:https://www.[employer].com/sites/default/files/product/ documents/Zjpn_Lyrms_Zxtxacsc_Wleo_BXAD-QbJ-9.pdfPerforming Laboratory:[facility], [place] [address]Dntvwdpymc A1c 2021-05-10 08:50:45 Test Item Value Reference Range Interpretation Comments Hemoglobin A1C (test code = 4548-4) 5.1 % 4.3-6.1 Lab Interpretation (test code = Normal 32264-1) [facility] [id number] 08:50:45 Test Item Value Reference Range Interpretation Comments HEMOGLOBIN A1C (BEAKER) (test code = 5.1 % 4.3-6.1 368) hCG, quantitative, [id number] 05:45:56 Test Item Value Reference Range Interpretation Comments hCG Quant (test code <1 See_Comment [Autom ated = 49086-0) message] The system which generated this result transmitted reference range : 0 - 10 mIU/mL. The reference range was not used to interpr et this result as normal/abnormal . KAREN (test code = KAREN) Non- Females: <10 mIU/mL Females: Gestation Age Reference Range(mIU/mL) 0.2-1 Week 5-50 1-2 Weeks 50-500 2-3 Weeks 100-5,000 3-4 Weeks 500-10,000 4-5 Weeks 1,000-50,000 5-6 Weeks 10,000-100,000 6-8 Weeks 15,000-200,000 2-3 Months 10,000-100,000 Design Engineer ID - PIAYA L Lab Interpretation Normal (test code = 75977-1) [facility]iumHCG, QUANTITATIVE, [id number] 05:45:56 Test Item Value Reference Range Interpretation Comments GONADOTROPIN, CHORIONIC (HCG) QUANT < mIU/mL 0-10 (BEAKER) (test code = 649) Non- Females: <10 mIU/mL Females: Gestation Age Reference Range(mIU/mL) 0.2-1 Week 5-50 1-2 Weeks 50-500 2-3 Weeks 100-5,000 3-4Weeks 500-10,000 4-5 Weeks 1,000-50,000 5-6 Weeks 10,000-100,000 6-8 Weeks 15,000-200,000 2-3 Months 10,000-100,000 Design Engineer ID - PIAYA L Hepatitis B [id number] 05:44:41 Test Item Value Reference Range Interpretation Comments Hep B Core Total Ab Nonreactive Nonreactive (test code = 06062-6) Hep B S Ab (test 20.7 See_Comment H [Automated code = 38408-3) message] The system which generated this result transmitted reference range : <8.0 mIU/mL. e reference range was not used to interpret this result as normal/abnormal . HBsAg Screen (test Nonreactive Nonreactive code = 5195-3) KAREN (test code = Design Engineer ID - KAREN) JANETT Ng Lab Interpretation Abnormal (test code = 70907-3) [facility]AT[facility] [id number] 05:44:41 Test Item Value Reference Range Interpretation Comments HEPATITIS B CORE TOTAL ANTIBODY Nonreactive Nonreactive (BEAKER) (test code = 497) HEPATITIS B SURFACE ANTIBODY 20.7 mIU/mL <8.0 H (BEAKER) (test code = 647) HEPATITIS B SURFACE ANTIGEN (2) Nonreactive Nonreactive (BEAKER) (test code = 2585) Design Engineer ID - JANETT LBASIC METABOLIC [id number] 05:37:00 Test Item Value Reference Range Interpretation Comments SODIUM (BEAKER) 138 meq/L 136-145 (test code = 381) POTASSIUM (BEAKER) 4.3 meq/L 3.5-5.1 (test code = 379) CHLORIDE (BEAKER) 103 meq/L 98-107 (test code = 382) CO2 (BEAKER) (test 25 meq/L 22-29 code = 355) BLOOD UREA NITROGEN 21 mg/dL 7-21 (BEAKER) (test code = 354) CREATININE (BEAKER) 3.95 mg/dL 0.57-1.25 H (test code = 358) GLUCOSE RANDOM 143 mg/dL 70-105 H (BEAKER) (test code = 652) CALCIUM (BEAKER) 8.5 mg/dL 8.4-10.2 (test code = 697) EGFR (BEAKER) (test 13 mL/min/1.73 ESTIMA JOHN GFR IS code = 1092) sq m NOT ACCURATE CREATININE CLEARANCE IN PREDICTING GLOMERULAR FILTRATION RATE . ESTIMATED GFR I S NOT APPLICABLE FOR DIALYSIS PATIEN TS. Design Engineer ID - JANETT [id number] 05:36:12 Test Item Value Reference Range Interpretation Comments PHOSPHORUS (BEAKER) (test code = 3.4 mg/dL 2.3-4.7 604) Design Engineer ID - JANETT LHEPATIC FUNCTION [id number] 05:36:12 Test Item Value Reference Range Interpretation Comments TOTAL PROTEIN (BEAKER) (test code = 5.3 gm/dL 6.0-8.3 L 770) ALBUMIN (BEAKER) (test code = 1145) 3.1 g/dL 3.5-5.0 L BILIRUBIN TOTAL (BEAKER) (test code 0.5 mg/dL 0.2-1.2 = 377) BILIRUBIN DIRECT (BEAKER) (test 0.2 mg/dL 0.1-0.5 code = 706) ALKALINE PHOSPHATASE (BEAKER) (test 35 U/L 40-150 L code = 346) AST (SGOT) (BEAKER) (test code = 20 U/L 5-34 353) ALT (SGPT) (BEAKER) (test code = 14 U/L 6-55 347) Design Engineer ID - JANETT [id number] 05:36:11 Test Item Value Reference Range Interpretation Comments MAGNESIUM (BEAKER) (test code = 1.9 mg/dL 1.6-2.6 627) Design Engineer ID - JANETT [id number] 05:29:10 Test Item Value Reference Range Interpretation Comments Haptoglobin (test code = <8 14-258 L 4542-7) KAREN (test code = KAREN) Design Engineer ID - JANETT Hernandez Lab Interpretation (test Abnormal code = 27327-9) [facility]iumHAPTOGLOBIN2021-11-07 05:29:10 Test Item Value Reference Range Interpretation Comments HAPTOGLOBIN (BEAKER) (test code = < mg/dL 14-258 L 366) Design Engineer ID - JOHANAJOYCE LComplement Component [id number] 05:23:42 Test Item Value Reference Range Interpretation Comments C3 Complement (test code = 69 mg/dL 82-193 L 4487-5) KAREN (test code = KAREN) Design Engineer ID - JANETT L Lab Interpretation (test Abnormal code = 77175-6) [facility]iumCOMPLEMENT COMPONENT [id number] 05:23:42 Test Item Value Reference Range Interpretation Comments C3 COMPLEMENT (BEAKER) (test code = 69 mg/dL 82-193 L 393) Design Engineer ID - JANETT LComplement Component [id number] 05:23:41 Test Item Value Reference Range Interpretation Comments C4 Complement (test code = 23 mg/dL 15-57 72733-6) KAREN (test code = KAREN) Design Engineer ID - JANETT L Lab Interpretation (test Normal code = 84686-5) [facility]ON[facility] [id number] 05:23:41 Test Item Value Reference Range Interpretation Comments C4 COMPLEMENT (BEAKER) (test code = 23 mg/dL 15-57 394) Design Engineer ID - JANETT LCBC W/PLT COUNT & AUTO [id number] 05:20:24 Test Item Value Reference Range Interpretation Comments WHITE BLOOD CELL COUNT (BEAKER) 18.3 K/ L 3.5-10.5 H (test code = 775) RED BLOOD CELL COUNT (BEAKER) 2.96 M/ L 3.93-5.22 L (test code = 761) HEMOGLOBIN (BEAKER) (test code = 8.7 GM/DL 11.2-15.7 L 410) HEMATOCRIT (BEAKER) (test code = 27.1 % 34.1-44.9 L 411) MEAN CORPUSCULAR VOLUME (BEAKER) 91.6 fL 79.4-94.8 (test code = 753) MEAN CORPUSCULAR HEMOGLOBIN 29.4 pg 25.6-32.2 (BEAKER) (test code = 751) MEAN CORPUSCULAR HEMOGLOBIN CONC 32.1 GM/DL 32.2-35.5 L (BEAKER) (test code = 752) RED CELL DISTRIBUTION WIDTH 15.9 % 11.7-14.4 H (BEAKER) (test code = 412) PLATELET COUNT (BEAKER) (test 116 K/CU MM 150-450 L code = 756) MEAN PLATELET VOLUME (BEAKER) 12.2 fL 9.4-12.3 (test code = 754) NUCLEATED RED BLOOD CELLS 0 /100 WBC 0-0 (BEAKER) (test code = 413) NEUTROPHILS RELATIVE PERCENT 91 % (BEAKER) (test code = 429) LYMPHOCYTES RELATIVE PERCENT 2 % (BEAKER) (test code = 430) MONOCYTES RELATIVE PERCENT 6 % (BEAKER) (test code = 431) EOSINOPHILS RELATIVE PERCENT 0 % (BEAKER) (test code = 432) BASOPHILS RELATIVE PERCENT 0 % (BEAKER) (test code = 437) NEUTROPHILS ABSOLUTE COUNT 16.66 K/ L 1.56-6.13 H (BEAKER) (test code = 670) LYMPHOCYTES ABSOLUTE COUNT 0.41 K/ L 1.18-3.74 L (BEAKER) (test code = 414) MONOCYTES ABSOLUTE COUNT (BEAKER) 1.03 K/ L 0.24-0.36 H (test code = 415) EOSINOPHILS ABSOLUTE COUNT 0.00 K/ L 0.04-0.36 L (BEAKER) (test code = 416) BASOPHILS ABSOLUTE COUNT (BEAKER) 0.01 K/ L 0.01-0.08 (test code = 417) IMMATURE GRANULOCYTES-RELATIVE 1 % 0-1 PERCENT (BEAKER) (test code = 2801) PROTHROMBIN [id number] 05:17:58 Test Item Value Reference Range Interpretation Comments PROTIME (BEAKER) 14.7 seconds 11.9-14.2 H (test code = 759) INR (BEAKER) (test 1.17 See_Comment [Automat ed message] code = 370) The system [employer] generated this result transmitted ref erence range: <=5.90. The reference range was not used to int erpret this result as normal/abnormal . RECOMMENDED COUMADIN/WARFARIN INR THERAPY RANGESSTANDARD DOSE: 2.0 - 3.0 Includes: PROPHYLAXIS forvenous thrombosis, systemic embolization; TREATMENT for venous thrombosis and/or pulmonary embolus.HIGH RISK: Target INR is 2.5-3.5 for patients with mechanical heart valves.U/S, RENAL, [id number] 01:22:00 Reordered per original order due to many scans and procedures and limited staffReason for exam:->acute renal failureShould this be performed at the bedside?->YesTONIE [facility]ERT [facility] : 1990 Sex: FFINAL REPORT Renal ultrasound dated 05/09/2021 CLINICAL HISTORY: Renal dysfunction. COMPARISON: None Comment: Real-time transabdominal renal ultrasound was performed. Right kidney measures 8.5 x 3.4 x 4.3 cm. Left kidney measures 8.5 x 3.7 x 5.0 cm. Right renal cortex measures 1.5 cm. Left renal cortex measures 1.3 cm. Renal parenchymal echogenicity: Elevated. No h ydronephrosis, nephrolithiasis or solid mass is seen. No cyst is identified on either kidney. Doppler ultrasound demonstrates a patent main renal artery and vein bilaterally. The bladder volume measures 18 cc. Impression: Small, echogenic kidneys, a nonspecific appearance suggesting chronic renal disease. Signed: Sara Khan MDReport Verified Date/Time: 05/10/2021 01:22:15 Hepatitis panel, [id number] 21:50:13 Test Item Value Reference Range Interpretation Comments Hep A IgM (test code = Nonreactive Nonreactive 26882-8) Hep B C IgM (test code = Nonreactive Nonreactive 09973-3) Hepatitis C Ab (test code = Nonreactive Nonreactive 65086-6) HBsAg Screen (test code = Nonreactive Nonreactive 5195-3) KAREN (test code = KAREN) Design Engineer ID - DB Lab Interpretation (test Normal code = 08367-5) [facility]iumHEPAT[facility]IS PANEL, [id number] 21:50:13 Test Item Value Reference Range Interpretation Comments HEPATITIS A IGM ANTIBODY (BEAKER) Nonreactive Nonreactive (test code = 498) HEPATITIS B CORE IGM ANTIBODY Nonreactive Nonreactive (BEAKER) (test code = 645) HEPATITIS C ANTIBODY (BEAKER) Nonreactive Nonreactive (test code = 367) HEPATITIS B SURFACE ANTIGEN (2) Nonreactive Nonreactive (BEAKER) (test code = 2585) Design Engineer ID - DBVitamin [id number] 21:05:30 Test Item Value Reference Range Interpretation Comments Vitamin B12 (test code = 346 pg/mL 355-342 9824-9) KAREN (test code = KAREN) Design Engineer ID - GRISELDA B Lab Interpretation (test Normal code = 90193-2) [facility]iumVITAMIN [id number] 21:05:30 Test Item Value Reference Range Interpretation Comments VITAMIN B12 (BEAKER) (test code = 346 pg/mL 213-816 774) Design Engineer ID - GRISELDA [id number] 20:58:23 Test Item Value Reference Range Interpretation Comments Ferritin (test code = 143.75 ng/mL 5.00-275.00 2276-4) KAREN (test code = KAREN) Design Engineer ID - GRISELDA B Lab Interpretation (test Normal code = 99074-7) [facility]iumFERRITIN2021-11-06 20:58:23 Test Item Value Reference Range Interpretation Comments FERRITIN (BEAKER) (test code = 143.75 ng/mL 5.00-275.00 361) Design Engineer ID - GRISELDA BIron, TIBC, % sat. (without ferritin)2021-05-09 20:37:27 Test Item Value Reference Range Interpretation Comments Iron (test code = 2498-4) 43.0 ug/dL 40.0-160.0 TIBC (test code = 2500-7) 205 ug/dL 250-450 L Iron % Saturation (test 21 % 20-55 code = 2502-3) KAREN (test code = KAREN) Design Engineer ID - GRISELDA B Lab Interpretation (test Abnormal code = 03570-5) [facility]iumIRON, TIBC, % SAT. (WITHOUT FERRITIN)2021-05-09 20:37:27 Test Item Value Reference Range Interpretation Comments IRON (BEAKER) (test code = 547) 43.0 ug/dL 40.0-160.0 TOTAL IRON BINDING CAPACITY 205 ug/dL 250-450 L (BEAKER) (test code = 769) IRON % SATURATION (2) (BEAKER) 21 % 20-55 (test code = 2590) Design Engineer ID - GRISELDA BType and screen, [id number] 18:57:00 Test Item Value Reference Range Interpretation Comments ABO/RH AUTOMATED (BEAKER) (test O POSITIVE code = 2260) Ab Scrn (test code = 890-4) NEGATIVE [facility]iumFibrin soluble [id number] 18:16:36 Test Item Value Reference Range Interpretation Comments Fibrin Soluble Monomer (test code = Negative 85997-6) [facility]iumFIBRIN SOLUBLE [id number] 18:16:36 Test Item Value Reference Range Interpretation Comments FIBRIN SOLUBLE MONOMER (BEAKER) Negative (test code = 1416) PERIPHERAL BLOOD SMEAR - HOLD [id number] 18:01:08 Test Item Value Reference Range Interpretation Comments PERIPHERAL SMEAR SAVE (BEAKER) (test saved code = 1815) Manual [id number] 17:45:23 Test Item Value Reference Range Interpretation Comments % Neutros (test code = 97 % 2816) % Monos (test code = 1 % 2818) % Bands (test code = 2 % 0-10 2826) # Neutros (test code = 18.72 K/ul 1.56-6.13 H 2830) # Monos (test code = 0.19 K/uL 0.24-0.36 L 2832) # Bands (test code = 0.39 K/uL 0.00-0.80 2840) Total Counted (test 100 code = 1351) Platelet Morphology Normal (test code = 486) Vacuolated Neutrophils Present (test code = 483) Anisocytosis (test code 1+ few = 961) Microcytes (test code = 1+ few 965) Poikilocytes (test code 1+ few = 966) Schistocytes (test code 1+ few = 765) Spherocytes (test code 1+ few = 768) Elliptocytes (test code 1+ few = 962) Artifact (test code = Present 3432) Helmet Cells (test code 1+ few = 3434) Platelet Conc (test Decreased code = 3438) KAREN (test code = KAREN) Design Engineer ID - [id number] ID - Stacy comments: Slide comments: Lab Interpretation Abnormal (test code = 04452-5) [facility](CELLAVISION MANUAL DIFF)2021-05-09 17:45:23 Test Item Value Reference Range Interpretation Comments NEUTROPHILS - REL 97 % (CELLAVISION)(BEAKER) (test code = 2816) MONOCYTES - REL 1 % (CELLAVISION)(BEAKER) (test code = 2818) BANDS - REL (CELLAVISION)(BEAKER) 2 % 0-10 (test code = 2826) NEUTROPHILS - ABS 18.72 K/ul 1.56-6.13 H (CELLAVISION)(BEAKER) (test code = 2830) MONOCYTES - ABS 0.19 K/uL 0.24-0.36 L (CELLAVISION)(BEAKER) (test code = 2832) BANDS - ABS (CELLAVISION)(BEAKER) 0.39 K/uL 0.00-0.80 (test code = 2840) TOTAL COUNTED (BEAKER) (test code 100 = 1351) PLT MORPHOLOGY (BEAKER) (test code Normal = 486) VACUOLATED NEUTROPHILS (BEAKER) Present (test code = 483) ANISOCYTOSIS (BEAKER) (test code = 1+ few 961) MICROCYTES (BEAKER) (test code = 1+ few 965) POIKILOCYTES (BEAKER) (test code = 1+ few 966) SCHISTOCYTES (BEAKER) (test code = 1+ few 765) SPHEROCYTES (BEAKER) (test code = 1+ few 768) ELLIPTOCYTES (BEAKER) (test code = 1+ few 962) ARTIFACT (CELLAVISION)(BEAKER) Present (test code = 3432) HELMET CELLS (CELLAVISION)(BEAKER) 1+ few (test code = 3434) PLATELET CONCENTRATION Decreased (CELLAVISION)(BEAKER) (test code = 3438) Design Engineer ID - [id number] ID - StevenUbaldo comments: Slide comments:BASIC METABOLIC [id number] 17:12:57 Test Item Value Reference Range Interpretation Comments SODIUM (BEAKER) 138 meq/L 136-145 (test code = 381) POTASSIUM (BEAKER) 4.0 meq/L 3.5-5.1 (test code = 379) CHLORIDE (BEAKER) 100 meq/L 98-107 (test code = 382) CO2 (BEAKER) (test 23 meq/L 22-29 code = 355) BLOOD UREA NITROGEN 54 mg/dL 7-21 H (BEAKER) (test code = 354) CREATININE (BEAKER) 8.53 mg/dL 0.57-1.25 H (test code = 358) GLUCOSE RANDOM 165 mg/dL 70-105 H (BEAKER) (test code = 652) CALCIUM (BEAKER) 8.9 mg/dL 8.4-10.2 (test code = 697) EGFR (BEAKER) (test 5 mL/min/1.73 ESTIMAT ED GFR IS code = 1092) sq m NOT ACCURATE CREATININE CLEARANCE IN PREDICTING GLOMERULAR FILTRATION RATE . ESTIMATED GFR I S NOT APPLICABLE FOR DIALYSIS PATIEN TS. Design Engineer ID - DBLactate dehydrogenase (LDH)2021-05-09 17:12:52 Test Item Value Reference Range Interpretation Comments LDH (test code = 2532-0) 569 U/L 125-220 H KAREN (test code = KAREN) Design Engineer ID - DB Lab Interpretation (test Abnormal code = 42806-9) [facility]iumLACTATE DEHYDROGENASE (LDH)2021-05-09 17:12:52 Test Item Value Reference Range Interpretation Comments LACTATE DEHYDROGENASE (BEAKER) (test 569 U/L 125-220 H code = 635) Design Engineer ID - [id number] 17:12:51 Test Item Value Reference Range Interpretation Comments PHOSPHORUS (BEAKER) (test code = 4.8 mg/dL 2.3-4.7 H 604) Design Engineer ID - DBHEPATIC FUNCTION [id number] 17:12:51 Test Item Value Reference Range Interpretation Comments TOTAL PROTEIN (BEAKER) (test code = 6.7 gm/dL 6.0-8.3 770) ALBUMIN (BEAKER) (test code = 1145) 3.9 g/dL 3.5-5.0 BILIRUBIN TOTAL (BEAKER) (test code 0.7 mg/dL 0.2-1.2 = 377) BILIRUBIN DIRECT (BEAKER) (test 0.3 mg/dL 0.1-0.5 code = 706) ALKALINE PHOSPHATASE (BEAKER) (test 44 U/L 40-150 code = 346) AST (SGOT) (BEAKER) (test code = 13 U/L 5-34 353) ALT (SGPT) (BEAKER) (test code = 6 U/L 6-55 347) Design Engineer ID - [id number] 17:12:50 Test Item Value Reference Range Interpretation Comments MAGNESIUM (BEAKER) (test code = 2.2 mg/dL 1.6-2.6 627) Design Engineer ID - NNZdiuxqfdvx6246-68-43 17:01:46 Test Item Value Reference Range Interpretation Comments Fibrinogen (test code = 3255-7) 287 mg/dl 225-434 Lab Interpretation (test code = Normal 64903-3) [facility]iumFIBRINOGEN2021-[facility]-06 17:01:46 Test Item Value Reference Range Interpretation Comments FIBRINOGEN LEVEL (BEAKER) (test 287 mg/dl 225-434 code = 658) PROTHROMBIN TIME/[id number] 16:56:50 Test Item Value Reference Range Interpretation Comments PROTIME (BEAKER) 14.7 seconds 11.9-14.2 H (test code = 759) INR (BEAKER) (test 1.17 See_Comment [Automat ed message] code = 370) The system [employer] generated this result transmitted ref erence range: <=5.90. The reference range was not used to int erpret this result as normal/abnormal . RECOMMENDED COUMADIN/WARFARIN INR THERAPY RANGESSTANDARD DOSE: 2.0 - 3.0 Includes: PROPHYLAXIS forvenous thrombosis, systemic embolization; TREATMENT for venous thrombosis and/or pulmonary embolus.HIGH RISK: Target INR is 2.5-3.5 for patients with mechanical heart valves.CBC W/PLT COUNT & AUTO DIFFERENTIAL 2021-05-09 16:51:17 Test Item Value Reference Range Interpretation Comments WHITE BLOOD CELL COUNT (BEAKER) 19.3 K/ L 3.5-10.5 H (test code = 775) RED BLOOD CELL COUNT (BEAKER) 3.50 M/ L 3.93-5.22 L (test code = 761) HEMOGLOBIN (BEAKER) (test code = 10.3 GM/DL 11.2-15.7 L 410) HEMATOCRIT (BEAKER) (test code = 31.1 % 34.1-44.9 L 411) MEAN CORPUSCULAR VOLUME (BEAKER) 88.9 fL 79.4-94.8 (test code = 753) MEAN CORPUSCULAR HEMOGLOBIN 29.4 pg 25.6-32.2 (BEAKER) (test code = 751) MEAN CORPUSCULAR HEMOGLOBIN CONC 33.1 GM/DL 32.2-35.5 (BEAKER) (test code = 752) RED CELL DISTRIBUTION WIDTH 15.7 % 11.7-14.4 H (BEAKER) (test code = 412) PLATELET COUNT (BEAKER) (test 111 K/CU MM 150-450 L code = 756) MEAN PLATELET VOLUME (BEAKER) 11.8 fL 9.4-12.3 (test code = 754) NUCLEATED RED BLOOD CELLS 0 /100 WBC 0-0 (BEAKER) (test code = 413) NEUTROPHILS RELATIVE PERCENT 95 % (BEAKER) (test code = 429) LYMPHOCYTES RELATIVE PERCENT 2 % (BEAKER) (test code = 430) MONOCYTES RELATIVE PERCENT 2 % (BEAKER) (test code = 431) EOSINOPHILS RELATIVE PERCENT 0 % (BEAKER) (test code = 432) BASOPHILS RELATIVE PERCENT 0 % (BEAKER) (test code = 437) NEUTROPHILS ABSOLUTE COUNT 18.29 K/ L 1.56-6.13 H (BEAKER) (test code = 670) LYMPHOCYTES ABSOLUTE COUNT 0.35 K/ L 1.18-3.74 L (BEAKER) (test code = 414) MONOCYTES ABSOLUTE COUNT (BEAKER) 0.45 K/ L 0.24-0.36 H (test code = 415) EOSINOPHILS ABSOLUTE COUNT 0.00 K/ L 0.04-0.36 L (BEAKER) (test code = 416) BASOPHILS ABSOLUTE COUNT (BEAKER) 0.02 K/ L 0.01-0.08 (test code = 417) IMMATURE GRANULOCYTES-RELATIVE 1 % 0-1 PERCENT (BEAKER) (test code = 2801) Reticulocyte [id number] 16:50:26 Test Item Value Reference Range Interpretation Comments % Retic (test code = 2.9 % 0.5-1.7 H 19342-1) KAREN (test code = KAREN) Design Engineer ID - [id number] Lab Interpretation (test Abnormal code = 70597-5) [facility] [id number] 16:50:26 Test Item Value Reference Range Interpretation Comments RETICULOCYTE COUNT PCT (BEAKER) (test 2.9 % 0.5-1.7 H code = 575) Design Engineer ID - [id number], CHEST, 1 VIEW, NON [id number] 14:52:00Reason for exam:->acute renal failureShould this be performed at the bedside?->Yes [facility] : 1990 Sex: FFINAL REPORT RAD, CHEST, 1 VIEW, NON DEPT INDICATION: acute renal fail ure COMPARISON: Prior day's exam FINDINGS: Portable frontal view of the chest. IMPRESSION: Support Lines: Central catheter tip overlies the atriocaval junction Lungs and pleura: Perihilar interstitial thickening, which may indicate mild fluid overload and/or atypical infection in the appropriate cl inical setting. No soraida airspace edema or focal pneumonia. No significant pneumothorax. Heart and mediastinum: Stable contours. Additional findings: None. Signed: Mila Butt Verified Date/Time: 05/09/2021 14:52:43
--- NOTE | 2021-05-27 16:53 | P.HP ---
Certification for Inpatient Patient admitted to: Inpatient With expected LOS: >2 Midnights Patient will require the following post-hospital care: Other (Outpatient dialysis) Practitioner: I am a practitioner with admitting privileges, knowledge of patient current condition, hospital course, and medical plan of care. Services: Services provided to patient in accordance with Admission requirements found in Title 42 Section 412.3 of the Code of Federal Regulations Patient History Date of Service: 05/27/21 Primary Care Provider: None Reason for admission: Transfer back to our facility History of Present Illness: 30-year-old female with recent hospitalization here for acute renal injury. Patient also noted to have anemia with thrombocytopenia. Hemolytic uremic syndrome was suspected. Patient was transferred to [facility] for further evaluation. Patient had renal biopsy done. HUS was ruled out. Patient did not require plasmapheresis or Eculizumab. Patient now with end-stage renal disease on hemodialysis. Etiology likely related to malignant hypertension. Blood pressure now better controlled. Patient has been transferred back to our facility to arrange for outpatient dialysis. Patient doing well at this time. Recent blood work reviewed with stable hemoglobin and normal platelet count. Patient without complaints at this time. Allergies No Known Allergies Allergy (Unverified 11/11/11 20:43) Home Medications: Labetalol HCl 20 mg PO BID 05/08/21 - Past Medical/Surgical History -: Hypertension -: End-stage renal disease on hemodialysis Past Surgical History: Reviewed- Non-Contributory Psychosocial/ Personal History: Lives at home - Family History Family History: Reviewed- Non-Contributory - Social History Smoking Status: Never smoker Alcohol use: No CD- Drugs: No Place of Residence: Home Review of Systems General: As per HPI Eyes: Unremarkable ENT: Unremarkable Respiratory: Unremarkable Cardiovascular: Unremarkable Gastrointestinal: Unremarkable Genitourinary: Unremarkable Musculoskeletal: Unremarkable Integumentary: Unremarkable Neurological: Unremarkable Lymphatics: Unremarkable Assessment and Plan - Plan Physical Exam: GENERAL: The patient is a well-developed, well-nourished, in no apparent distress. Alert and oriented x3. VITAL SIGNS: Reviewed HEENT: Head is normocephalic and atraumatic. Extraocular muscles are intact. Pupils are equal, round, and reactive to light and accommodation. Nares appeared normal. Mouth is well hydrated and without lesions. Mucous membranes are moist. NECK: Supple. No carotid bruits. No lymphadenopathy or thyromegaly. LUNGS: Clear to auscultation. No crackles or wheezes are heard. HEART: Regular rate and rhythm, no appreciable gallops, rubs, murmurs or extra heart sounds ABDOMEN: Soft, nontender, and nondistended. Positive bowel sounds. No hepatosplenomegaly was noted. EXTREMITIES: Without any cyanosis, clubbing, rash, lesions or peripheral edema. NEUROLOGIC: The patient is oriented to person, place and time. Strength and sensation are grossly intact. Face is symmetric. SKIN: Normal color, turgor and temperature. No ulcerations or rashes noted. Impression: Recent acute renal injury now with end-stage renal disease on hemodialysis secondary to malignant hypertension Hypertension Anemia of chronic disease Thrombocytopenia secondary to above Plan: Patient hospitalized at [facility]. Patient was evaluated for possible hemolytic uremic syndrome. This was ruled out. Renal biopsy was done. Significant fibrosis noted. Patient did not require plasmapheresis or additional nephro medication-Eculizumab. Blood pressure now better controlled with current regimen. Continue with blood pressure medication that was started in [place]. Patient was transferred back to our facility to arrange for hemodialysis as an outpatient. Recent blood work reviewed. Hemoglobin stable. Thrombocytopenia resolved. Patient off steroids. Care discussed in detail with nephrology who is very familiar with the patient. Continue with nephrology plan of care. Will monitor lab closely. Continue with blood pressure medication. Monitor hemoglobin closely. I will turn the service over to the hospitalist team tomorrow. I will go plan of care with him. Code Status: Full Code DVT prophylaxis: SCD Advanced Care Planning-30 minutes: We will need to arrange for outpatient dialysis Discharge Plan: Home Plan to discharge in: Greater than 2 days - Advance Directives Does patient have a Living Will: No Does patient have a Durable POA for Healthcare: No - Code Status/Comfort Care Code Status Assessed: Yes (Patient is full code) Time Spent Managing Pts Care (In Minutes): 55
[2021-05-27] MEDS ORDERED: carvediloL 25 MG TAB PO SCH (18:00)
--- NOTE | 2021-05-27 19:55 | P.CNS ---
Date of Consult: 05/28/21 Reason for Consult: ESRD Requesting Physician: Terrance Marin Primary Care Provider: None Chief Complaint: Transfer back to our facility History of Present Illness: 30F w/ PMHx of uncontrolled Htn on labetalol + lisinopril, 2 pregnancies c/b pre-eclampsia on 2nd , & head tumor removal at 12 yo, who was admitted in our hospital on 05/07-05/09/21 for YOKASTA requiring dialysis w/ severe anemia s/p pRBC transfusion on 05/07-05/08 & thrombocytopenia, low haptoglobin, high LDH, & peripheral bld smear w/ +schistocytes & +bernadette cells but no circulating blasts, concerning for atypical HUS. She was transferred to [facility] on 05/09/21 for possible PLEX need. Her BP & bld counts stabilized & no PLEX received. Kidney bx done on 05/15/21 showed TMA, FGGS w/ 1 glomerulus showed FSGS, IF/TA 60-70%, & arterial/arteriolar intimal sclerosis w/ focal myointimal thickening. Tests for atypical HUS were sent including complement factors w/ indeterminate results. [id number] activity was normal at 85%. Thrombocytopenia is now resolved & her blood pressure now much better controlled. There was no further bld transfusion since 05/07. Plasmapheresis /eculizumab treatment regimen were not pursued given lack of evidence that this was a complement mediated process, and more likely hypertension related TMA. She was transferred back to our facility on 05/27 & awaiting outpatient dialysis placement. Allergies No Known Allergies Allergy (Unverified 11/11/11 20:43) Home Medications: Carvedilol [Coreg] 25 mg PO BID 05/27/21 Docusate Sodium 100 mg PO BID 05/27/21 Epoetin Ever-Epbx [Retacrit] 4,000 unit SQ T,TH,S 05/27/21 Losartan Potassium [Cozaar] 50 mg PO DAILY 05/27/21 NIFEdipine [Nifedipine ER] 60 mg PO BID 05/27/21 Ondansetron [Zofran] 4 mg PO Q8HR 05/27/21 Terazosin HCl 2 mg PO BID 05/27/21 calcitrioL [Rocaltrol] 0.25 mcg PO DAILY 05/27/21 cloNIDine HCL [Clonidine HCl] 0.1 mg PO Q6HR 05/27/21 diphenhydrAMINE HCL [Diphenhydramine HCl] 50 mg PO Q6HR PRN 05/27/21 polyethylene glycoL 3350 [Polyethylene Glycol 3350] 17 gm PO DAILY 05/27/21 - Past Medical/Surgical History -: Hypertension -: End-stage renal disease on hemodialysis -: Seizures (as a child) -: Brain tumor -: Asthma Psychosocial/ Personal History: Lives at home - Social History Alcohol use: No CD- Drugs: No Place of Residence: Home Review of Systems General: Weakness Eyes: Unremarkable ENT: Unremarkable Respiratory: Unremarkable Cardiovascular: Unremarkable Gastrointestinal: Unremarkable Genitourinary: Unremarkable Musculoskeletal: Unremarkable Integumentary: Unremarkable Neurological: Unremarkable Lymphatics: Unremarkable Physical Examination Temp Pulse Resp BP Pulse Ox 98.6 F 73 16 140/97 H 99 05/27/21 16:00 05/27/21 16:00 05/27/21 16:00 05/27/21 18:00 05/27/21 16:00 General: Alert, In no apparent distress HEENT: Atraumatic, Normocephalic Neck: Supple, JVD not distended Respiratory: Clear to auscultation bilaterally, Other (Symmetric chest expansion) Cardiovascular: No rubs, No murmurs, Other (+permacath R chest) Gastrointestinal: Soft and benign, Non-distended Musculoskeletal: No clubbing, No swelling Integumentary: No warmth Neurological: Normal speech, Normal tone Lymphatics: No axilla or inguinal lymphadenopathy Urinary: Other (No bladder distention) External genitalia: Deferred Rectal: Deferred Conclusions/Impression: # ESRD 2/2 uncontrolled Htn c/b TMA on HD TTS Baseline SCr 1.0-1.4 as of Apr 2020, but now dialysis dependent since 05/07/21 Urinalysis showed +blood but no hematuria, 3+proteinuria, +pyuria CPK wnl, no rhabdo PTH sig elevated at 279; renal US showing smaller kidneys 8.8 cms & 9 cms; renal bx showed advanced fibrosis; findings indicative of advanced CKD/ESRD at baseline, likely from uncontrolled Htn HD started on 05/07 HD today Preserve LUE for AVF planning--> avoid BP cuff, bld draws, intravascular cannulation Discussed home dialysis option. She does not want to pursue home HD or PD at this time. Discussed kidney transplant option. She is interested to be evaluated for kidney transplant. Will send referral [facility]. Nephro-ulises po daily Renal diet Monitor renal panel Outpt HD placement at [facility] ongoing # Malignant Htn-induced TMA +anemia, peripheral bld smear +some schistocystes & bernadette cells, + thrombocytopenia, renal failure, LFT unremarkable, no fever, no seizure, mental status ok Hx of pre-eclampsia 4 years ago & had uncontrolled Htn since then Urine & serum tests neg [id number] level wnl at 85% Vit B 12 wnl HBV, HCV neg Bld type O+ Peripheral bld smear on 07/09/20 showed no circulating blasts & no significantly increased schistocytes. Kidney bx on 05/15/21 showed TMA, FGGS w/ 1 glomerulus showed FSGS, IF/TA 60- 70%, & arterial/arteriolar intimal sclerosis w/ focal myointimal thickening Test for atypical HUS sent - indeterminate results, TMA genetic panel screening equivocal, no definitive pathway abnl No indication for PLEX or Eculizumab Steroid pulse x 3d, received on 05/08-05/11 F/u homocysteine & methylmalonic acid levels Trend LDH to assess resolution of TMA # Premature uncontrolled Htn BP controlled Cont current BP med regimen Hx of pre-eclampsia w/ her 2nd 4 yrs ago; since then SBPs have been 200-240 mmHg despite being on 2 anti-Htn meds Renal doppler US showed no e/o MELLY Plasma metanephrines sl. elevated on 05/12/21 PA/PRA wnl, no primary hyperaldo Avoid Hydralazine d/t DITMA risk # Anemia Received 4u pRBC transfusion in early May 2021 Iron stores adeq on 05/09/21 Epo qtts # Secondary hyperPTH Cont Calcitriol 0.25 mcg po daily Serum 25OHD level low at 6.6 on 05/13/21--> start D3 5000 IU po daily # Vit D deficiency Start high dose D3 on 05/28 as above, plan for 3 mos, then 1000 IU po daily maintenance # HyperPO4 Start Sevelamer po tidwm # Dispo Dc when outpt HD setup at [facility] is complete
[2021-05-27] MEDS ORDERED: ONDANSETRON 4 MG (ODT) TAB PO PRN (22:49)
[2021-05-27] MEDS ORDERED: DIPHENHYDRAMINE 25 MG TAB/CAP PO PRN (23:02)
[2021-05-28] MEDS ORDERED: ONDANSETRON 4 MG (ODT) TAB PO SCH (01:00)
[2021-05-28 03:51] LABS: Absolute Lymphocytes (CBC) 1.5 K/uL (0.7-4.9); Basophils % 2.2 % (0-1.3); Hematocrit 28.2 % (36.0-45.0); Lymphocytes % 23.7 % (15.3-44.8); MPV 7.2 fL (7.6-11.3); RBC Red Blood Cell Count 3.17 M/uL (3.86-4.86)
[2021-05-28 04:27] LABS: Bilirubin Total 0.3 mg/dL (0.2-1.0); Magnesium 2.4 mg/dL (1.8-2.4); Phosphorus 6.6 mg/dL (2.5-4.9); Potassium 4.1 mmol/L (3.5-5.1); Protein, Total 6.2 g/dL (6.4-8.2)
[2021-05-28] MEDS ORDERED: LOSARTAN POTASSIUM 50 MG TABLET PO SCH (09:00)
[2021-05-28] MEDS: POLYETHYL GLY 3350 17 GM/DOSE PO SCH (09:00)
[2021-05-28] MEDS: carvediloL 25 MG TAB PO SCH ×2 (09:35→20:53)
[2021-05-28] MEDS: DOCUSATE NA 100 MG CAP PO SCH ×2 (09:35→20:53)
[2021-05-28] MEDS: LOSARTAN POTASSIUM 50 MG TABLET PO SCH (09:35)
[2021-05-28] MEDS: CALCITROL 0.25 MCG CAP PO SCH (09:36)
[2021-05-28] MEDS: TERAZOSIN HCL 1 MG CAP PO SCH ×2 (09:36→20:53)
[2021-05-28] MEDS: FOLIC ACID 1 MG TABLET PO SCH (09:36)
[2021-05-28] MEDS: VITAMIN D 5,000 UNIT CAP PO SCH (09:36)
[2021-05-28] MEDS: NIFEDIPINE XL 60 MG TABLET PO SCH ×2 (09:36→20:53)
[2021-05-28] MEDS: cloNIDine HCL 0.1 MG TAB PO SCH ×3 (09:46→17:32)
[2021-05-28] MEDS ORDERED: WATER FOR INJ,STERILE 10 ML IV SCH (11:00)
[2021-05-28] MEDS ORDERED: ALTEPLASE 2 MG/VIAL IV SCH (11:00)
--- NOTE | 2021-05-28 13:45 | P.PN ---
Subjective Date of Service: 05/28/21 Primary Care Provider: None Chief Complaint: Transfer back to our facility She is doing well today, she is getting her HD, she have no CP or SOB, no abd pain ,no change in BM , she is pleasant Physical Examination - Vital Signs Temperature: 98.6 F Blood Pressure: 144/93 Pulse: 77 Respirations: 15 Pulse Ox (%): 98 - Studies Laboratory Data (last 24 hrs) 05/28/21 04:00: Phosphorus Cancelled 05/28/21 03:32: Sodium 140, Potassium 4.1, BUN 38 H, Creatinine 7.73 H*, Glucose 81, Phosphorus 6.6 H, Magnesium 2.4, Total Bilirubin 0.3, AST 10 L, ALT 13, Alkaline Phosphatase 48 05/28/21 03:32: WBC 6.50, Hgb 9.5 L, Hct 28.2 L, Plt Count 246 Assessment & Plan Plan to discharge in: Greater than 2 days - Code Status/Comfort Care Code Status Assessed: Yes Code Status: Full Code Physician Review Additional Text: Physical Exam: GENERAL: The patient is a well-developed, well-nourished, in no apparent distress. Alert and oriented x3. VITAL SIGNS: Reviewed HEENT: Head is normocephalic and atraumatic. Extraocular muscles are intact. Pupils are equal, round, and reactive to light and accommodation. Nares appeared normal. Mouth is well hydrated and without lesions. Mucous membranes are moist. NECK: Supple. No carotid bruits. No lymphadenopathy or thyromegaly. LUNGS: Clear to auscultation. No crackles or wheezes are heard. HEART: Regular rate and rhythm, no appreciable gallops, rubs, murmurs or extra heart sounds ABDOMEN: Soft, nontender, and nondistended. Positive bowel sounds. No hepatosplenomegaly was noted. EXTREMITIES: Without any cyanosis, clubbing, rash, lesions or peripheral edema. NEUROLOGIC: The patient is oriented to person, place and time. Strength and sen sation are grossly intact. Face is symmetric. SKIN: Normal color, turgor and temperature. No ulcerations or rashes noted. Impression: Recent acute renal injury now with end-stage renal disease on hemodialysis secondary to malignant hypertension -Patient hospitalized at [facility]. hemolytic uremic syndrome was ruled out. Renal biopsy was done. Significant fibrosis noted. Patient did not require plasmapheresis or additional nephro medication- Eculizumab.Patient was transferred back to our facility to arrange for hemodialysis as an outpatient. nephrology followin Hypertension -well controlled , Continue with blood pressure medication that was started in [place] Anemia of chronic disease Thrombocytopenia secondary to above Thrombocytopenia resolved. Patient off steroids. Code Status: Full Code DVT prophylaxis: SCD Advanced Care Planning-30 minutes: We will need to arrange for outpatient dialysis Discharge Plan: Home Plan to discharge in: Greater than 2 days - Advance Directives Does patient have a Living Will: No Does patient have a Durable POA for Healthcare: No Critical Care: No
[2021-05-28] MEDS: SEVELAMER CARBONATE 800 MG TABLET PO SCH (17:30)
[2021-05-28] MEDS: EPOETIN 4,000 UNIT/ML VIAL SQ SCH (20:54)
[2021-05-29] MEDS: cloNIDine HCL 0.1 MG TAB PO SCH ×4 (00:52→17:19)
[2021-05-29 05:31] LABS: Absolute Lymphocytes (CBC) 1.5 K/uL (0.7-4.9); Basophils % 1.4 % (0-1.3); Hematocrit 31.1 % (36.0-45.0); Lymphocytes % 20.7 % (15.3-44.8); MPV 7.2 fL (7.6-11.3); RBC Red Blood Cell Count 3.47 M/uL (3.86-4.86)
[2021-05-29 05:53] LABS: Albumin 3.1 g/dL (3.4-5.0); Bilirubin Total 0.3 mg/dL (0.2-1.0); Magnesium 2.2 mg/dL (1.8-2.4); Protein, Total 6.4 g/dL (6.4-8.2)
--- NOTE | 2021-05-29 06:02 | P.PN ---
Subjective Date of Service: 05/29/21 Primary Care Provider: None Chief Complaint: Transfer back to our facility Subjective: Other (Received HD yesterday.) Physical Examination - Vital Signs Temperature: 97.4 F Blood Pressure: 116/73 Pulse: 70 Respirations: 18 Pulse Ox (%): 96 - Physical Exam General: In no apparent distress HEENT: Atraumatic, Normocephalic Neck: Supple, JVD not distended Respiratory: Clear to auscultation bilaterally Cardiovascular: No rubs, No murmurs Gastrointestinal: Soft and benign, Non-distended Musculoskeletal: No clubbing Integumentary: No warmth Neurological: Normal speech, Normal tone Lymphatics: No axilla or inguinal lymphadenopathy Urinary: Other (No bladder distention) External genitalia: Deferred Rectal: Deferred - Studies Laboratory Data (last 24 hrs) 05/29/21 05:15: Sodium 142, Potassium 4.0, BUN 30 H, Creatinine 5.71 H* D, Glucose 96, Magnesium 2.2, Total Bilirubin 0.3, AST 7 L, ALT 13, Alkaline Phosphatase 53 05/29/21 05:15: WBC 7.30, Hgb 10.4 L, Hct 31.1 L, Plt Count 268 Assessment And Plan - Plan # ESRD 2/2 uncontrolled Htn c/b TMA on HD TTS Baseline SCr 1.0-1.4 as of Apr 2020, but now dialysis dependent since 05/07/21 Urinalysis showed +blood but no hematuria, 3+proteinuria, +pyuria CPK wnl, no rhabdo PTH sig elevated at 279; renal US showing smaller kidneys 8.8 cms & 9 cms; renal bx showed advanced fibrosis; findings indicative of advanced CKD/ESRD at baseline, likely from uncontrolled Htn HD started on 05/07 HD received yesterday. Next HD tomorrow Preserve LUE for AVF planning--> avoid BP cuff, bld draws, intravascular cannulation Discussed home dialysis option. She does not want to pursue home HD or PD at this time. Discussed kidney transplant option. She is interested to be evaluated for kidney transplant. Will send referral to [facility] soon. Nephro-ulises po daily Renal diet Monitor renal panel Outpt HD placement at [facility] ongoing # Malignant Htn-induced TMA +anemia, peripheral bld smear +some schistocystes & bernadette cells, + thrombocytopenia, renal failure, LFT unremarkable, no fever, no seizure, mental status ok Hx of pre-eclampsia 4 years ago & had uncontrolled Htn since then Urine & serum tests neg [id number] level wnl at 85% Vit B 12 wnl HBV, HCV neg Bld type O+ Peripheral bld smear on 07/09/20 showed no circulating blasts & no significantly increased schistocytes. Kidney bx on 05/15/21 showed TMA, FGGS w/ 1 glomerulus showed FSGS, IF/TA 60- 70%, & arterial/arteriolar intimal sclerosis w/ focal myointimal thickening Test for atypical HUS sent - indeterminate results, TMA genetic panel screening equivocal, no definitive pathway abnl No indication for PLEX or Eculizumab Steroid pulse x 3d, received on 05/08-05/11 F/u homocysteine & methylmalonic acid levels Trend LDH to assess resolution of TMA # Premature uncontrolled Htn BP controlled Cont current BP med regimen Hx of pre-eclampsia w/ her 2nd 4 yrs ago; since then SBPs have been 200-240 mmHg despite being on 2 anti-Htn meds Renal doppler US showed no e/o MELLY Plasma metanephrines sl. elevated on 05/12/21 PA/PRA wnl, no primary hyperaldo Avoid Hydralazine d/t DITMA risk # Anemia Received 4u pRBC transfusion in early May 2021 Iron stores adeq on 05/09/21 H/H at goal Cont Epo qtts # Secondary hyperPTH iPTH decreased to 63 Dc calcitriol & cholecalciferol # Vit D deficiency Serum 25OHD level low at 6.6 on 05/13/21 Dc D3 suppl d/c low PTH as above # HyperPO4 Continue Sevelamer po tidwm # Dispo Dc when outpt HD setup at [facility] is complete
[2021-05-29] MEDS ORDERED: PNEUMOCOCCAL VACCINE 0.5 ML IMVAC ONE (08:00)
[2021-05-29] MEDS ORDERED: INFLUENZA VACCINE (for 6+ mo) 0.5 ML DOSE IMVAC ONE (08:00)
[2021-05-29] MEDS: NIFEDIPINE XL 60 MG TABLET PO SCH ×2 (08:43→20:33)
[2021-05-29] MEDS: MULTIVITAMINS,THERAPEUT 1 TAB PO SCH (08:43)
[2021-05-29] MEDS: TERAZOSIN HCL 1 MG CAP PO SCH ×2 (08:43→20:33)
[2021-05-29] MEDS: SEVELAMER CARBONATE 800 MG TABLET PO SCH ×3 (08:45→17:19)
[2021-05-29] MEDS: FOLIC ACID 1 MG TABLET PO SCH (08:45)
[2021-05-29] MEDS: carvediloL 25 MG TAB PO SCH ×2 (08:45→20:33)
[2021-05-29] MEDS: LOSARTAN POTASSIUM 50 MG TABLET PO SCH (08:45)
[2021-05-29] MEDS: CALCITROL 0.25 MCG CAP PO SCH (08:45)
[2021-05-29] MEDS: DOCUSATE NA 100 MG CAP PO SCH ×2 (08:45→20:34)
[2021-05-29] MEDS: VITAMIN D 5,000 UNIT CAP PO SCH (08:45)
[2021-05-29] MEDS: POLYETHYL GLY 3350 17 GM/DOSE PO SCH (08:49)
--- NOTE | 2021-05-29 11:05 | P.PN ---
Subjective Date of Service: 05/29/21 Primary Care Provider: None Chief Complaint: Transfer back to our facility She is doing well today, she had HD yesterday, no issues over night, she have no CP or SOB, no abd pain ,no change in BM Physical Examination - Vital Signs Temperature: 98.2 F Blood Pressure: 132/80 Pulse: 80 Respirations: 16 Pulse Ox (%): 98 - Studies Laboratory Data (last 24 hrs) 05/29/21 05:15: Sodium 142, Potassium 4.0, BUN 30 H, Creatinine 5.71 H* D, Glucose 96, Magnesium 2.2, Total Bilirubin 0.3, AST 7 L, ALT 13, Alkaline Phosphatase 53 05/29/21 05:15: WBC 7.30, Hgb 10.4 L, Hct 31.1 L, Plt Count 268 Assessment & Plan Physician Review Additional Text: Physical Exam: GENERAL: The patient is a well-developed, well-nourished, in no apparent distress. Alert and oriented x3. VITAL SIGNS: Reviewed HEENT: Head is normocephalic and atraumatic. Extraocular muscles are intact. Pupils are equal, round, and reactive to light and accommodation. Nares appeared normal. Mouth is well hydrated and without lesions. Mucous membranes are moist. NECK: Supple. No carotid bruits. No lymphadenopathy or thyromegaly. LUNGS: Clear to auscultation. No crackles or wheezes are heard. HEART: Regular rate and rhythm, no appreciable gallops, rubs, murmurs or extra heart sounds ABDOMEN: Soft, non tender, and non distended. Positive bowel sounds. No hepatosplenomegaly was noted. EXTREMITIES: Without any cyanosis, clubbing, rash, lesions or peripheral edema. NEUROLOGIC: The patient is oriented to person, place and time. Strength and sensation are grossly intact. Face is symmetric. SKIN: Normal color, turgor and temperature. No ulcerations or rashes noted. Impression: Recent acute renal injury now with end-stage renal disease on hemodialysis secondary to malignant hypertension -Patient hospitalized at [facility]. hemolytic uremic syndrome was ruled out. Renal biopsy was done. Significant fibrosis noted. Patient did not require plasmapheresis or additional nephro medication- Eculizumab.Patient was transferred back to our facility to arrange for hemodialysis as an outpatient. nephrology following she have HD yesterday and she is going to have HD again in AM Hypertension -borderline controlled , Continue with blood pressure medication that was started in [place] Anemia of chronic disease, - improving Code Status: Full Code DVT prophylaxis: SCD Advanced Care Planning-30 minutes: We will need to arrange for outpatient dialysis Discharge Plan: Home Plan to discharge in: Greater than 2 days - Advance Directives Does patient have a Living Will: No Does patient have a Durable POA for Healthcare: No
--- NOTE | 2021-05-29 20:28 | RAD REPORT ---
EXAM DESCRIPTION: Sajan Single View05/29/2021 8:22 pm CLINICAL HISTORY: Rule out TB COMPARISON: May 07, 2021 FINDINGS: The lungs appear clear of acute infiltrate. The heart is normal size. Central venous cath eter in place IMPRESSION: No radiographic evidence of active TB
[2021-05-30] MEDS: cloNIDine HCL 0.1 MG TAB PO SCH ×4 (00:30→17:00)
[2021-05-30 04:29] LABS: Absolute Lymphocytes (CBC) 1.4 K/uL (0.7-4.9); Basophils % 1.2 % (0-1.3); Hematocrit 30.9 % (36.0-45.0); Lymphocytes % 18.5 % (15.3-44.8); MPV 7.3 fL (7.6-11.3); RBC Red Blood Cell Count 3.43 M/uL (3.86-4.86)
[2021-05-30 05:13] LABS: Potassium 4.3 mmol/L (3.5-5.1)
[2021-05-30 05:14] LABS: Bilirubin Total 0.3 mg/dL (0.2-1.0); Magnesium 2.4 mg/dL (1.8-2.4); Phosphorus 5.3 mg/dL (2.5-4.9); Protein, Total 6.3 g/dL (6.4-8.2)
--- NOTE | 2021-05-30 06:16 | P.PN ---
Subjective Date of Service: 05/30/21 Primary Care Provider: None Chief Complaint: Transfer back to our facility Subjective: No new changes Physical Examination - Vital Signs Temperature: 98.6 F Blood Pressure: 126/84 Pulse: 67 Respirations: 16 Pulse Ox (%): 99 - Physical Exam General: In no apparent distress HEENT: Atraumatic, Normocephalic Neck: Supple, JVD not distended Respiratory: Clear to auscultation bilaterally Cardiovascular: No rubs, No murmurs Gastrointestinal: Soft and benign, Non-distended Musculoskeletal: No clubbing Integumentary: No warmth Neurological: Normal speech, Normal tone - Studies Laboratory Data (last 24 hrs) 05/30/21 04:00: Phosphorus Cancelled 05/30/21 03:56: Sodium 141, Potassium 4.3, BUN 43 H, Creatinine 7.09 H* D, Glucose 100, Phosphorus 5.3 H, Magnesium 2.4, Total Bilirubin 0.3, AST 7 L, ALT 11 L, Alkaline Phosphatase 48 05/30/21 03:56: WBC 7.70, Hgb 10.3 L, Hct 30.9 L, Plt Count 269 Assessment And Plan - Plan # ESRD 2/2 uncontrolled Htn c/b TMA on HD TTS Baseline SCr 1.0-1.4 as of Apr 2020, but now dialysis dependent since 05/07/21 Urinalysis showed +blood but no hematuria, 3+proteinuria, +pyuria CPK wnl, no rhabdo PTH sig elevated at 279; renal US showing smaller kidneys 8.8 cms & 9 cms; renal bx showed advanced fibrosis; findings indicative of advanced CKD/ESRD at base line, likely from uncontrolled Htn HD started on 05/07. HD received today Preserve LUE for AVF planning--> avoid BP cuff, bld draws, intravascular cannulation Discussed home dialysis option. She does not want to pursue home HD or PD at this time. Discussed kidney transplant option. She is interested to be evaluated for kidney transplant. Will send referral to [facility] soon. Nephro-ulises po daily Renal diet Monitor renal panel Outpt HD placement at [facility] ongoing # Malignant Htn-induced TMA +anemia, peripheral bld smear +some schistocystes & bernadette cells, + thrombocytopenia, renal failure, LFT unremarkable, no fever, no seizure, mental status ok Hx of pre-eclampsia 4 years ago & had uncontrolled Htn since then Urine & serum tests neg [id number] level wnl at 85% Vit B 12 wnl HBV, HCV neg Bld type O+ Peripheral bld smear on 07/09/20 showed no circulating blasts & no significantly increased schistocytes. Kidney bx on 05/15/21 showed TMA, FGGS w/ 1 glomerulus showed FSGS, IF/TA 60- 70%, & arterial/arteriolar intimal sclerosis w/ focal myointimal thickening Test for atypical HUS sent - indeterminate results, TMA genetic panel screening equivocal, no definitive pathway abnl No indication for PLEX or Eculizumab Steroid pulse x 3d, received on 05/08-05/11 F/u homocysteine & methylmalonic acid levels Repeat LDH wnl, TMA resolved # Premature uncontrolled Htn BP better controlled Cont current BP med regimen Hx of pre-eclampsia w/ her 2nd 4 yrs ago; since then SBPs have been 200-240 mmHg despite being on 2 anti-Htn meds Renal doppler US showed no e/o MELLY Plasma metanephrines sl. elevated on 05/12/21 PA/PRA wnl, no primary hyperaldo Avoid Hydralazine d/t DITMA risk # Anemia Received 4u pRBC transfusion in early May 2021 Iron stores adeq on 05/09/21 H/H at goal Cont Epo qtts # Secondary hyperPTH iPTH decreased to 63 Dc calcitriol & cholecalciferol # Vit D deficiency Serum 25OHD level low at 6.6 on 05/13/21 Dc D3 suppl d/c low PTH as above # HyperPO4 Continue Sevelamer po tidwm # Dispo Dc when outpt HD setup at [facility] is complete Physician Review Additional Text: Physical Exam: GENERAL: The patient is a well-developed, well-nourished, in no apparent distress. Alert and oriented x3. VITAL SIGNS: Reviewed HEENT: Head is normocephalic and atraumatic. Extraocular muscles are intact. Pupils are equal, round, and reactive to light and accommodation. Nares appeared normal. Mouth is well hydrated and without lesions. Mucous membranes are moist. NECK: Supple. No carotid bruits. No lymphadenopathy or thyromegaly. LUNGS: Clear to auscultation. No crackles or wheezes are heard. HEART: Regular rate and rhythm, no appreciable gallops, rubs, murmurs or extra heart sounds ABDOMEN: Soft, non tender, and non distended. Positive bowel sounds. No hepatosplenomegaly was noted. EXTREMITIES: Without any cyanosis, clubbing, rash, lesions or peripheral edema. NEUROLOGIC: The patient is oriented to person, place and time. Strength and sensation are grossly intact. Face is symmetric. SKIN: Normal color, turgor and temperature. No ulcerations or rashes noted. Impression: Recent acute renal injury now with end-stage renal disease on hemodialysis secondary to malignant hypertension -Patient hospitalized at [facility]. hemolytic uremic syndrome was ruled out. Renal biopsy was done. Significant fibrosis noted. Patient did not require plasmapheresis or additional nephro medication- Eculizumab.Patient was transferred back to our facility to arrange for hemodialysis as an outpatient. nephrology following she have HD yesterday and she is going to have HD again in AM Hypertension -borderline controlled , Continue with blood pressure medication that was started in [place] Anemia of chronic disease, - improving Code Status: Full Code DVT prophylaxis: SCD Advanced Care Planning-30 minutes: We will need to arrange for outpatient dialysis Discharge Plan: Home Plan to discharge in: Greater than 2 days - Advance Directives Does patient have a Living Will: No Does patient have a Durable POA for Healthcare: No
[2021-05-30] MEDS: POLYETHYL GLY 3350 17 GM/DOSE PO SCH (09:00)
[2021-05-30] MEDS: SEVELAMER CARBONATE 800 MG TABLET PO SCH ×3 (09:35→17:00)
[2021-05-30] MEDS: DOCUSATE NA 100 MG CAP PO SCH ×2 (09:35→21:45)
[2021-05-30] MEDS: carvediloL 25 MG TAB PO SCH ×2 (09:35→21:45)
[2021-05-30] MEDS: LOSARTAN POTASSIUM 50 MG TABLET PO SCH (09:35)
[2021-05-30] MEDS: MULTIVITAMINS,THERAPEUT 1 TAB PO SCH (09:36)
[2021-05-30] MEDS: NIFEDIPINE XL 60 MG TABLET PO SCH ×2 (09:36→21:45)
[2021-05-30] MEDS: TERAZOSIN HCL 1 MG CAP PO SCH ×2 (09:36→21:46)
[2021-05-30] MEDS: FOLIC ACID 1 MG TABLET PO SCH (09:36)
--- NOTE | 2021-05-30 10:59 | P.PN ---
Subjective Date of Service: 05/30/21 Primary Care Provider: None Chief Complaint: Transfer back to our facility She is doing well today, she will have HD today, she have no CP or SOB, no abd pain ,no change in BM Physical Examination - Vital Signs Temperature: 98.0 F Blood Pressure: 140/98 Pulse: 63 Respirations: 16 Pulse Ox (%): 100 - Studies Laboratory Data (last 24 hrs) 05/30/21 04:00: Phosphorus Cancelled 05/30/21 03:56: Sodium 141, Potassium 4.3, BUN 43 H, Creatinine 7.09 H* D, Glucose 100, Phosphorus 5.3 H, Magnesium 2.4, Total Bilirubin 0.3, AST 7 L, ALT 11 L, Alkaline Phosphatase 48 05/30/21 03:56: WBC 7.70, Hgb 10.3 L, Hct 30.9 L, Plt Count 269 Assessment & Plan Physician Review Additional Text: Physical Exam: GENERAL: The patient is a well-developed, well-nourished, in no apparent distress. Alert and oriented x3. VITAL SIGNS: Reviewed HEENT: Head is normocephalic and atraumatic. Extraocular muscles are intact. Pupils are equal, round, and reactive to light and accommodation. Mouth is well hydrated and without lesions. Mucous membranes are moist. NECK: Supple. No carotid bruits. No lymphadenopathy or thyromegaly. LUNGS: Clear to auscultation. No crackles or wheezes are heard. HEART: Regular rate and rhythm, no appreciable gallops, rubs, murmurs or extra heart sounds ABDOMEN: Soft, non tender, and non distended. Positive bowel sounds. No hepatosplenomegaly was noted. EXTREMITIES: Without any cyanosis, clubbing, rash, lesions or peripheral edema. NEUROLOGIC: The patient is oriented to person, place and time. Strength and sensation are grossly intact. Face is symmetric. SKIN: Normal color, turgor and temperature. No ulcerations or rashes noted. Impression: Recent acute renal injury now with end-stage renal disease on hemodialysis secondary to malignant hypertension -Patient hospitalized at [facility]. hemolytic uremic syndrome was ruled out. Renal biopsy was done. Significant fibrosis noted. Patient did not require plasmapheresis or additional nephro medication- Eculizumab.Patient was transferred back to our facility to arrange for hemodialysis as an outpatient. nephrology following she will have HD today HD chair waiting on pending Hepatitis panel Hypertension -Diastolic not well controlled, will increase losartan to 75 mg daily, cont coreg, nifidepeine Anemia of chronic disease, - improving Code Status: Full Code DVT prophylaxis: SCD Advanced Care Planning-30 minutes: We will need to arrange for outpatient dialysis Discharge Plan: Home Plan to discharge in: Greater than 2 days - Advance Directives Does patient have a Living Will: No Does patient have a Durable POA for Healthcare: No
[2021-05-30] MEDS: EPOETIN 4,000 UNIT/ML VIAL SQ SCH (21:00)
[2021-05-31] MEDS: cloNIDine HCL 0.1 MG TAB PO SCH ×4 (00:39→20:59)
--- NOTE | 2021-05-31 06:20 | P.PN ---
Subjective Date of Service: 06/01/21 Primary Care Provider: None Chief Complaint: Transfer back to our facility Subjective: Other (Received HD today. No c/o CONTRERAS or dysuria.) Physical Examination - Vital Signs Temperature: 98.6 F Blood Pressure: 126/84 Pulse: 67 Respirations: 16 Pulse Ox (%): 99 - Physical Exam General: In no apparent distress HEENT: Atraumatic, Normocephalic Neck: Supple, JVD not distended Respiratory: Clear to auscultation bilaterally Cardiovascular: No rubs, No murmurs Gastrointestinal: Soft and benign, Non-distended Musculoskeletal: No clubbing Integumentary: No warmth Neurological: Normal speech, Normal tone Lymphatics: No axilla or inguinal lymphadenopathy Urinary: Other (No bladder distention) External genitalia: Deferred Rectal: Deferred Assessment And Plan - Plan # 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 HD received yesterday. Next HD Tue. Preserve LUE for AVF planning--> avoid BP cuff, bld draws, intravascular cannulation Discussed home dialysis option. She does not want to pursue home HD or PD at this time. Discussed kidney transplant option. She is interested to be evaluated for kidne y transplant. Will send referral to [facility] soon. Nephro-ulises po daily Renal diet Monitor renal panel Outpt HD placement at [facility] ongoing # Malignant Htn-induced TMA +anemia, peripheral bld smear +some schistocystes & bernadette cells, + thrombocytopenia, renal failure, LFT unremarkable, no fever, no seizure, mental status ok Hx of pre-eclampsia 4 years ago & had uncontrolled Htn since then Urine & serum tests neg [id number] level wnl at 85% Vit B 12 wnl HBV, HCV neg Bld type O+ Peripheral bld smear on 07/09/20 showed no circulating blasts & no significantly increased schistocytes. Kidney bx on 05/15/21 showed TMA, FGGS w/ 1 glomerulus showed FSGS, IF/TA 60- 70%, & arterial/arteriolar intimal sclerosis w/ focal myointimal thickening Test for atypical HUS sent - indeterminate results, TMA genetic panel screening equivocal, no definitive pathway abnl Steroid pulse x 3d, received on 05/08-05/11 F/u homocysteine & methylmalonic acid levels Repeat LDH wnl, TMA resolved No indication for PLEX or Eculizumab # Premature uncontrolled Htn BP better controlled, though still above goal Hx of pre-eclampsia w/ her 2nd 4 yrs ago; since then SBPs have been 200-240 mmHg despite being on 2 anti-Htn meds Renal doppler US showed no e/o MELLY Plasma metanephrines sl. elevated on 05/12/21 PA/PRA wnl, no primary hyperaldo Avoid Hydralazine d/t DITMA risk Increase Losartan to 100 mg po daily # Anemia Received 4u pRBC transfusion in early May 2021 Iron stores adeq on 05/09/21 H/H at goal Cont Epo qTTS # Secondary hyperPTH iPTH decreased to 63 Dc calcitriol & cholecalciferol # Vit D deficiency Serum 25OHD level low at 6.6 on 05/13/21 Dc D3 suppl d/c low PTH as above # HyperPO4 Continue Sevelamer po tidwm # Dispo Dc when outpt HD setup at [facility] is complete
[2021-05-31] MEDS ORDERED: LOSARTAN POTASSIUM 50 MG TABLET PO SCH (09:00)
[2021-05-31] MEDS: carvediloL 25 MG TAB PO SCH ×2 (09:00→20:58)
[2021-05-31] MEDS: DOCUSATE NA 100 MG CAP PO SCH ×2 (09:00→20:59)
[2021-05-31] MEDS: SEVELAMER CARBONATE 800 MG TABLET PO SCH ×3 (09:00→16:40)
[2021-05-31] MEDS: NIFEDIPINE XL 60 MG TABLET PO SCH ×2 (09:01→20:57)
[2021-05-31] MEDS: MULTIVITAMINS,THERAPEUT 1 TAB PO SCH (09:01)
[2021-05-31] MEDS: TERAZOSIN HCL 1 MG CAP PO SCH ×2 (09:01→20:57)
[2021-05-31] MEDS: FOLIC ACID 1 MG TABLET PO SCH (09:01)
--- NOTE | 2021-05-31 10:00 | P.PN ---
Subjective Date of Service: 05/31/21 Primary Care Provider: None Chief Complaint: Transfer back to our facility She is doing well today, she will have HD tommorow, she have no CP or SOB, no abd pain ,no change in BM Physical Examination - Vital Signs Temperature: 98 F Blood Pressure: 144/90 Pulse: 62 Respirations: 14 Pulse Ox (%): 99 Assessment & Plan Physician Review Additional Text: Physical Exam: GENERAL: The patient is a well-developed, well-nourished, in no apparent distress. Alert and oriented x3. VITAL SIGNS: Reviewed HEENT: Head is normocephalic and atraumatic. Extraocular muscles are intact. Pupils are equal, round, and reactive to light and accommodation. Nares appeared normal. Mouth is well hydrated and without lesions. Mucous membranes are moist. NECK: Supple. No carotid bruits. No lymphadenopathy or thyromegaly. LUNGS: Clear to auscultation. No crackles or wheezes are heard. HEART: Regular rate and rhythm, no appreciable gallops, rubs, murmurs or extra heart sounds ABDOMEN: Soft, non tender, and non distended. Positive bowel sounds. No hepatosplenomegaly was noted. EXTREMITIES: Without any cyanosis, clubbing, rash, lesions or peripheral edema. NEUROLOGIC: The patient is oriented to person, place and time. Strength and sensation are grossly intact. Face is symmetric. SKIN: Normal color, turgor and temperature. No ulcerations or rashes noted. Impression: Recent acute renal injury now with end-stage renal disease on hemodialysis secondary to malignant hypertension -Patient hospitalized at [facility]. hemolytic uremic syndrome was ruled out. Renal biopsy was done. Significant fibrosis noted. Patient did not require plasmapheresis or additional nephro medication- Eculizumab.Patient was transferred back to our facility to arrange for hemodialysis as an outpatient. nephrology following she have HD yesterday and she is going to have HD again in AM pending chair availability and pending hepatitis panel Hypertension -Much better controlled over last 24hours , Continue with blood pressure medication , I adjusted meds yesterday Anemia of chronic disease, - mild stable Code Status: Full Code DVT prophylaxis: SCD Advanced Care Planning-30 minutes: We will need to arrange for outpatient dialysis Discharge Plan: Home Plan to discharge in: Greater than 2 days - Advance Directives Does patient have a Living Will: No Does patient have a Durable POA for Healthcare: No
[2021-05-31] MEDS ORDERED: LOSARTAN POTASSIUM 50 MG TABLET PO ONE (13:00)
[2021-06-01 05:05] VITALS: O2SAT 94
[2021-06-01 05:35] LABS: Absolute Lymphocytes (CBC) 1.5 K/uL (0.7-4.9); Basophils % 1.3 % (0-1.3); Hematocrit 32.6 % (36.0-45.0); Lymphocytes % 21.5 % (15.3-44.8); MPV 7.1 fL (7.6-11.3); RBC Red Blood Cell Count 3.57 M/uL (3.86-4.86)
[2021-06-01 06:13] LABS: Magnesium 2.6 mg/dL (1.8-2.4); Phosphorus 4.9 mg/dL (2.5-4.9); Potassium 4.6 mmol/L (3.5-5.1)
[2021-06-01] MEDS: TERAZOSIN HCL 1 MG CAP PO SCH ×2 (08:35→20:11)
[2021-06-01] MEDS: SEVELAMER CARBONATE 800 MG TABLET PO SCH ×3 (08:35→17:03)
[2021-06-01] MEDS: MULTIVITAMINS,THERAPEUT 1 TAB PO SCH (08:35)
[2021-06-01] MEDS: DOCUSATE NA 100 MG CAP PO SCH ×2 (08:35→20:11)
[2021-06-01] MEDS: cloNIDine HCL 0.1 MG TAB PO SCH ×2 (08:36→20:12)
[2021-06-01] MEDS: carvediloL 25 MG TAB PO SCH ×2 (08:37→20:11)
[2021-06-01] MEDS: NIFEDIPINE XL 60 MG TABLET PO SCH ×2 (08:37→20:11)
[2021-06-01] MEDS: FOLIC ACID 1 MG TABLET PO SCH (08:37)
[2021-06-01] MEDS: LOSARTAN POTASSIUM 50 MG TABLET PO SCH (08:38)
[2021-06-01 19:53] LABS: HBsAG Nonreactive (Nonreactive)
--- NOTE | 2021-06-02 01:18 | PN ---
Date of Progress Note: 06/01/2021 Chief Complaint: End-stage renal disease, on hemodialysis. History Of Present Illness: Patient is dialysis dependent, she has end-stage renal disease due to un controlled hypertension. She has been dialyzed on TTS. She received dialysis on Tuesday. Patient was started on dialysis on May 07, 2021. Review of Systems: Patient denies fever, chills. Denies nausea, vomiting. Physical Examination: Lungs: Clear to auscultation bilaterally. Heart: S1, S2. Abdomen: Soft, benign. Extremities: No edema. Impression And Plan: 1.End-stage renal disease. Ultrasound showed, small kidneys 8.8 cm and 9 cm. Patient had renal bio psy, which showed advanced fibrosis corresponding with advanced chronic kidney, end-stage renal disea se most likely from uncontrolled hypertension. Patient will continue hemodialysis and treatment will be scheduled for tomorrow. 2.Uncontrolled hypertension. Patient has history preeclampsia. Renal Doppler showed no evidence of renal artery stenosis. Further workup was done previously. The patient will follow up with Nephrol khadijah as outpatient. 3.Anemia. The patient received blood transfusion. Continue EPO. 4.Hyperparathyroidism, and calcitriol was stopped. Monitor phosphorus and calcium. Inta ct PTH . EB/MODL Voice ID: [id number] Report ID: [id number]
[2021-06-02] MEDS: TERAZOSIN HCL 1 MG CAP PO SCH ×2 (10:24→20:40)
[2021-06-02] MEDS: LOSARTAN POTASSIUM 50 MG TABLET PO SCH (10:24)
[2021-06-02] MEDS: MULTIVITAMINS,THERAPEUT 1 TAB PO SCH (10:24)
[2021-06-02] MEDS: NIFEDIPINE XL 60 MG TABLET PO SCH ×2 (10:25→20:41)
[2021-06-02] MEDS: carvediloL 25 MG TAB PO SCH ×2 (10:25→20:41)
[2021-06-02] MEDS: SEVELAMER CARBONATE 800 MG TABLET PO SCH ×3 (10:25→17:00)
[2021-06-02] MEDS: cloNIDine HCL 0.1 MG TAB PO SCH ×2 (10:25→20:41)
[2021-06-02] MEDS: DOCUSATE NA 100 MG CAP PO SCH ×2 (10:25→20:40)
[2021-06-02] MEDS: FOLIC ACID 1 MG TABLET PO SCH (10:25)
--- NOTE | 2021-06-02 13:18 | PN ---
Date of Progress Note: 06/02/2021 Subjective: The patient was admitted earlier in the month with TMA secondary to hypertension. Serology was negative. After controlling blood pressure, no recovery on the kidney function. Thrombocytopenia has been improved. Physical Examination: Vital Signs: Blood pressure 140/89, pulse of 69, afebrile. Chest: Clear to auscultation. Heart: S1, S2. Regular. Abdomen: Soft, nontender. Extremities: No edema. No bruises. Neurological: Alert, oriented x3. No focal. Laboratory Data: WBC 7.2, H and H 10.7/32.6, platelets 244. Sodium 140, potassium 4.6, bicarb 26, BUN 46, creatinine 6.8, GFR of 7, calcium 8.9, phosphorus 4.9, magnesium 2.6, albumin of 3, corrected calcium 9.7. Current Medications: The patient on include carvedilol 25 b.i.d., clonidine 0.2 b.i.d., losartan 100, nifedipine 60 b.i.d., terazosin, Renvela. serology was negative, complement marginally. C3 was low. Assessment And Plan: 1. Acute kidney injury secondary to hypertension crisis, nonoliguric, no hyperkalemia. Currently, blood pressure ranging around 120, controlled, optimal. Continue current medications. We will continue dialysis and we will monitor for recovery. 2. Hyperkalemia, resolved. 3. Acidosis secondary to renal failure, resolved. 4. Thrombocytopenia secondary to atypical TMA, has been improving, resolved. The patient cleared from the renal standpoint for discharge planning to follow up as outpatient dialysis. time spend exam the patient face to face placing order , reviewing lab and radiology data , discussing the case with the nursing staff and other care team coordinator scheduler including hospitalist and other ux consultant on the case 35 min JOSE/MESSI Voice ID: [id number] Report ID: [id number] MAMTA
[2021-06-02] MEDS: EPOETIN 4,000 UNIT/ML VIAL SQ SCH (20:40)
[2021-06-03 04:21] VITALS: BMI 21.3
[2021-06-03] MEDS: DOCUSATE NA 100 MG CAP PO SCH (09:44)
[2021-06-03] MEDS: SEVELAMER CARBONATE 800 MG TABLET PO SCH (09:45)
[2021-06-03] MEDS: MULTIVITAMINS,THERAPEUT 1 TAB PO SCH (09:45)
[2021-06-03] MEDS: FOLIC ACID 1 MG TABLET PO SCH (09:45)
[2021-06-03] MEDS: TERAZOSIN HCL 1 MG CAP PO SCH (09:45)
[2021-06-03] MEDS: NIFEDIPINE XL 60 MG TABLET PO SCH (09:45)
[2021-06-03] MEDS: LOSARTAN POTASSIUM 50 MG TABLET PO SCH (09:45)
[2021-06-03] MEDS: carvediloL 25 MG TAB PO SCH (09:45)
[2021-06-03] MEDS: cloNIDine HCL 0.1 MG TAB PO SCH (09:45)
--- NOTE | 2021-06-03 11:04 | P.PN ---
Subjective Date of Service: 06/01/21 Patient continues to do well. Awaiting for arrangements for outpatient hemodialysis. Review of Systems 10-point ROS is otherwise unremarkable Physical Examination - Vital Signs Temperature: 97.1 F Blood Pressure: 146/86 Pulse: 66 Respirations: 16 Pulse Ox (%): 99 - Physical Exam General: Alert, In no apparent distress HEENT: Atraumatic, PERRLA, EOMI Neck: Supple, JVD not distended Respiratory: Clear to auscultation bilaterally, Normal air movement Cardiovascular: Regular rate/rhythm, Normal S1 S2 Gastrointestinal: Normal bowel sounds, No tenderness Musculoskeletal: No tenderness Integumentary: No rashes Neurological: Normal speech, Normal tone, Normal affect Lymphatics: No axilla or inguinal lymphadenopathy - Studies Medications List Reviewed: Yes Assessment & Plan - Problems (Diagnosis) (1) ESRD (end stage renal disease) Current Visit: Yes Status: Acute (2) HTN (hypertension) Current Visit: No Status: Acute Qualifiers: Hypertension type: primary hypertension Qualified Code(s): I10 - Essential (primary) hypertension (3) Hemolytic anemia Current Visit: No Status: Acute (4) Thrombocytopenia Current Visit: No Status: Acute - Plan Continue with plan of care. Arranging for outpatient hemodialysis. Continue monitoring labs including platelets and hemoglobin. - Advance Directives Does patient have a Living Will: No Does patient have a Durable POA for Healthcare: No - Code Status/Comfort Care Code Status: Full Code
--- NOTE | 2021-06-03 11:07 | P.PN ---
Date of Service: 06/02/21 Subjective Patient was supposed to be discharged but the mother refused to pick the patient up. Patient will get hemodialysis and discharge today. If not today than in the morning. Review of Systems 10-point ROS is otherwise unremarkable Physical Examination - Vital Signs Reviewed - Physical Exam General: Alert, In no apparent distress Respiratory: Clear to auscultation bilaterally, Normal air movement Cardiovascular: Regular rate/rhythm, Normal S1 S2 Gastrointestinal: Normal bowel sounds, No tenderness Neurological: Normal speech, Normal tone, Normal affect Assessment & Plan - Problems (Diagnosis) (1) ESRD (end stage renal disease) Current Visit: Yes Status: Acute (2) HTN (hypertension) Current Visit: No Status: Acute Qualifiers: Hypertension type: primary hypertension Qualified Code(s): I10 - Essential (primary) hypertension (3) Hemolytic anemia Current Visit: No Status: Acute (4) Thrombocytopenia Current Visit: No Status: Acute - Plan Plan: 1. Patient was scheduled for discharge. However, mother was unable to pick her up. Will go ahead and discharge in the morning. - Advance Directives Does patient have a Living Will: No Does patient have a Durable POA for Healthcare: No - Code Status/Comfort Care Code Status: Full Code
--- NOTE | 2021-06-03 11:07 | P.DS ---
Discharge Date: 06/03/21 Primary Care Provider: None Disposition: ROUTINE DISCHARGE Discharge Condition: GOOD Reason for Admission: Transfer back to our facility - Problems (1) ESRD (end stage renal disease) Current Visit: Yes Status: Acute (2) HTN (hypertension) Current Visit: No Status: Acute Qualifiers: Hypertension type: primary hypertension Qualified Code(s): I10 - Essential (primary) hypertension (3) Hemolytic anemia Current Visit: No Status: Acute (4) Thrombocytopenia Current Visit: No Status: Acute Brief History of Present Illness: Patient is a 30-year-old female with recent hospitalization here for acute renal injury. Patient also noted to have anemia with thrombocytopenia. Hemolytic uremic syndrome was suspected. Patient was transferred to [facility] for further evaluation. Patient had renal biopsy done. HUS was ruled out. Patient did not require plasmapheresis or Eculizumab. Patient now with end-stage renal disease on hemodialysis. Etiology likely related to malignant hypertension. Blood pressure now better controlled. Patient has been transferred back to our facility to arrange for outpatient dialysis. Patient doing well at this time. Recent blood work reviewed with stable hemoglobin and normal platelet count. Patient without complaints at this time. Vital Signs/Physical Exam: Temp Pulse Resp BP Pulse Ox 97.1 F 66 16 146/86 H 99 06/03/21 11:04 06/03/21 11:04 06/03/21 11:04 06/03/21 11:04 06/03/21 11:04 Laboratory Data at Discharge: WBC 7.20 K/uL (4.3-10.9) 06/01/21 05:24 Hgb 10.7 g/dL (12.0-15.0) L 06/01/21 05:24 Hct 32.6 % (36.0-45.0) L 06/01/21 05:24 Plt Count 244 K/uL (152-406) 06/01/21 05:24 Sodium 140 mmol/L (136-145) 06/01/21 05:24 Potassium 4.6 mmol/L (3.5-5.1) 06/01/21 05:24 BUN 46 mg/dL (7-18) H 06/01/21 05:24 Creatinine 6.85 mg/dL (0.55-1.3) H* 06/01/21 05:24 Glucose 96 mg/dL (74-106) 06/01/21 05:24 Phosphorus 4.9 mg/dL (2.5-4.9) 06/01/21 05:24 Magnesium 2.6 mg/dL (1.8-2.4) H 06/01/21 05:24 Total Bilirubin 0.3 mg/dL (0.2-1.0) 05/30/21 03:56 AST 7 U/L (15-37) L 05/30/21 03:56 ALT 11 U/L (12-78) L 05/30/21 03:56 Alkaline Phosphatase 48 U/L (45-117) 05/30/21 03:56 Home Medications: Epoetin Ever-Epbx [Retacrit] 4,000 unit SQ T,TH,S 05/27/21 diphenhydrAMINE HCL [Diphenhydramine HCl] 50 mg PO Q6HR PRN 05/27/21 Sevelamer Carbonate [Renvela*] 800 mg PO TIDWM #90 tablet 06/02/21 Carvedilol [Coreg] 25 mg PO BID #60 06/03/21 Docusate Sodium 100 mg PO BID #60 06/03/21 Losartan Potassium [Cozaar] 50 mg PO DAILY #30 06/03/21 NIFEdipine [Nifedipine ER] 60 mg PO BID #60 06/03/21 Ondansetron [Zofran (Odt)*] 4 mg PO Q8HR #30 tab 06/03/21 Terazosin HCl 2 mg PO BID #60 06/03/21 calcitrioL [Rocaltrol] 0.25 mcg PO DAILY #30 06/03/21 cloNIDine HCL [Clonidine HCl] 0.1 mg PO Q6HR #120 06/03/21 polyethylene glycoL 3350 [Polyethylene Glycol 3350] 17 gm PO DAILY #30 06/03/21 New Medications: cloNIDine HCL [Clonidine HCl] 0.1 mg PO Q6HR #120 Carvedilol [Coreg] 25 mg PO BID #60 Losartan Potassium [Cozaar] 50 mg PO DAILY #30 Docusate Sodium 100 mg PO BID #60 NIFEdipine [Nifedipine ER] 60 mg PO BID #60 polyethylene glycoL 3350 [Polyethylene Glycol 3350] 17 gm PO DAILY #30 Sevelamer Carbonate [Renvela*] 800 mg PO TIDWM #90 tablet calcitrioL [Rocaltrol] 0.25 mcg PO DAILY #30 Terazosin HCl 2 mg PO BID #60 Ondansetron [Zofran (Odt)*] 4 mg PO Q8HR #30 tab Physician Discharge Instructions: OK TO DC IV AND DC HOME FOLLOW-UP WITH PRIMARY CARE PROVIDER IN 1-2 WEEKS FOLLOW-UP WITH NEPHROLOGY for HD RETURN TO THE ER IF symptoms worsens CALL or TEXT DR. ALVAREZ AT [phone] IF ANY QUESTIONS REGARDING HOSPITAL STAY. PLEASE CALL THE FLOOR AT [phone] IF ANY MEDICATION OR NURSING QUESTIONS. Diet: Renal Activity: Fall precautions Followup: Oleg Tello MD [ACTIVE - CAN ADMIT] -
[2021-06-03 12:23] VITALS: BP 161/98; TEMP 97.9
--- NOTE | 2021-06-03 12:47 | PN ---
Date of Progress Note: 06/03/2021 Subjective: The patient was admitted with acute kidney injury secondary to atypical TMA secondary to uncontrolled blood pressure. Kidney biopsy ruled out any need for plasma exchange. Unfortunately, so far no significant sign of recovery. Blood pressure has been well-controlled. The patient was ac cepted on [facility] at [place]. Physical Examination: Vital Signs: When I saw the patient; blood pressure 146/86, pulse of 66. Chest: Clear to auscultation. Heart: S1, S2. Regular. Abdomen: Soft, nontender. Extremity: No edema. Neurologic: Alert. No focality. Laboratory Data: H and H 10.7/32.6. Sodium 140, potassium 4.6, bicarb 26, BUN 46, creatinine 6.8, c alcium 8.9, phosphorus 4.9, magnesium 2.6, albumin 3, corrected calcium 9.6. Current Medications: The patient on include losartan 100 mg, clonidine 0.2 b.i.d., carvedilol 25 b.i .d., nifedipine 60 b.i.d., terazosin 2 mg b.i.d., folic acid, Renvela 800 daily, Zofran, docusate. Assessment And Plan: 1.Acute kidney injury secondary to atypical TMA, dialysis dependent. We will continue dialysis per schedule and we will follow up. 2.Hypertension with acute kidney injury. The patient had difficulty affording the blood pressure me dications. I am going to go ahead and change her carvedilol to metoprolol as it is going to be avail able at 4 dollar list. The rest of the medications, most of it available on the 4 dollar list will c ontinue. 3.Thrombocytopenia, atypical TMA, recovered. We will follow up with the primary. The patient cleared from the Renal standpoint for discharge planning. JOSE/MESSI Voice ID: [id number] Report ID: [id number]
[2021-06-04] MEDS ORDERED: METOPROLOL XL 50 MG TAB PO SCH (09:00)
== END 2021-06-03 13:02 | disposition home or self-care (01) | DRG 682 ==
LOC: 2ND 15:55
PROVIDERS: ADMIT Family Medicine; ATTEND Hospitalist
PROC: 5A1D70Z Performance of Urinary Filtration, Intermittent, Less than 6 Hours Per Day (ICD-10-PCS; principal; 2021-05-28)
DX: I12.0 Hypertensive chronic kidney disease with stage 5 chronic kidney disease or end stage renal disease (principal); M31.10 Thrombotic microangiopathy, unspecified; N18.6 End stage renal disease; N25.81 Secondary hyperparathyroidism of renal origin; N17.9 Acute kidney failure, unspecified; E87.2 Acidosis; Z99.2 Dependence on renal dialysis; Z79.899 Other long term (current) drug therapy; D63.8 Anemia in other chronic diseases classified elsewhere; D69.6 Thrombocytopenia, unspecified; J45.909 Unspecified asthma, uncomplicated; E55.9 Vitamin D deficiency, unspecified; E83.39 Other disorders of phosphorus metabolism; E87.5 Hyperkalemia
CPT/HCPCS: 36415; 71045; 80053; 80069; 80074; 82947; 83090; 83615; 83735; 83921; 83970; 84100; 85025; 86704; 86706; 86803; 87340; 90935; J1644; J2997; Q5105

== ENCOUNTER 2021-06-08 07:26 | Emergency (ER) | payer SELFPAY ==
--- OUTSIDE RECORDS SUMMARY | 2021-06-08 07:33 | XMS REPORT | Continuity of Care Document ---
:1990 Author Organization [facility] t Address [address] [place] [address] Care Team Providers Name Role Phone STEPHANIE Attending Clinician Unavailable Attending Clinician Unavailable NASIR Attending Clinician Unavailable Kevan Mccall DO Attending Clinician Chris Guy Attending Clinician CHRIS BRAN Attending Clinician Unavailable Chace MARQUES Attending Clinician Unavailable Hernandez HARRISON Attending Clinician Unavailable Felton NOLAN Attending Clinician Kaushal NOLAN Attending Clinician Doctor Unassigned, Name Attending Clinician Unavailable LASHONDA PAUL Attending Clinician Unavailable Lashonda Paul MD Attending Clinician Hernandez Rivas Attending Clinician Beck AGUIRRE, B Attending Clinician John AGUIRRE Attending Clinician FLORY GALVEZ Admitting Clinician Unavailable Payers Payer Name Policy Type Policy Number Effective Date Expiration Date Mike SAEZ [id number] 2017 00:00:00 Problems Condition Condition Condition Status [...] rs pain pain 2-29 ity of 00:00: [place] [facility] S/P S/P Disease Active 2017-07 Univers 2-24 ity of section section 00:00: [place] [address] Medical Branch Chronic Chronic Disease Active 2017-07 Univers hypertensi hypertensi 2-19 it y of on with on with 00:00: [place] superimpos superimpos 00 Me dical ed ed Branch preeclamps preeclamps ia ia 34 weeks 34 weeks Disease Active 2017-07 Unive rs gestation gestation 2-17 ity of of of 00:00: [place] 00 [facility] Branch Obesity Obesity Disease Active 2017-07 Univers (BMI (BMI 2-11 ity of 30-39.9) 30-39.9) 00:00: [place] [address] Medical Branch 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 - renal renal Medical disease) disease) Center on on dialysis dialysis Allergies, Adverse Reactions, Alerts Allergy Allergy Status Severity Reaction(s) Onset Inactive Treating Comm ents Source Name Type Date Date Clinician NO KNOWN Allergy Active [facility] NO KNOWN Drug Active Univers ALLERGIE Class ity of S [facility] Social History Social Habit Start Date Stop Date Quantity Comments Source Exposure to Not sure [facility] SARS-CoV-2 [facility] (event) Branch Alcohol intake 2020-01-23 2020-01-23 Current University 00:00:00 00:00:00 non-drinker of [facility] alcohol [place] (finding) Tobacco use and 2020-01-23 2020-01-23 Never used Universit y of exposure 00:00:00 00:00:00 [facility] Sex Assigned At [address] I[facility] kes - 00:00:00 00:00:00 [facility] Smoking Status Start Date Stop Date Source Never smoker [facility] Medications Ordered Filled Start Stop Current Ordering Indication Dosage Frequency Signature Comments Components Source Medication Medication Date Date Medication? Clinician (SIG) Name Name labetaloL 2020-07 Yes 100mg Q.5D Take [address] [facility] [address] ([facility]ODYNE) 1-16 mg by [facility] MG 16:48: mouth 2 Medical tablet 39 (two) Center times daily. lisinopriL 2019-0 Yes [id number] 40mg Take 1 U nivers 40 mg 9-28 tablet by ity of tablet 00:00: mouth [place] 00 daily. Medical Branch hydroCHLORO 2019-0 Yes [id number] 25mg Take 1 Univers thiazide 25 9-28 tablet by ity of mg tablet 00:00: mouth [place] 00 daily. Medical Branch amLODIPine 2019-0 Yes [id number] 10mg Take 1 U nivers 10 mg 9-28 tablet by ity of tablet 00:00: mouth [place] 00 daily. Medical Branch lisinopriL 2019-0 Yes [id number] 40mg Take 1 U nivers 40 mg 9-28 tablet by ity of tablet 00:00: mouth [place] 00 daily. Medical Branch hydroCHLORO 2020-0 Yes [id number] 25mg Take 1 Univers thiazide 25 9-28 tablet by ity of mg tablet 00:00: mouth [place] 00 daily. Medical Branch amLODIPine 2020-0 Yes [id number] 10mg Take 1 U nivers 10 mg 9-28 tablet by ity of tablet 00:00: mouth [place] 00 daily. Medical Branch lisinopriL 2020-0 Yes [id number] 40mg Take 1 U nivers 40 mg 9-28 tablet by ity of tablet 00:00: mouth [place] 00 daily. Medical Branch hydroCHLORO 2020-0 Yes [id number] 25mg Take 1 Univers thiazide 25 9-28 tablet by ity of mg tablet 00:00: mouth [place] 00 daily. Medical Branch amLODIPine 2020-0 Yes [id number] 10mg Take 1 U nivers 10 mg 9-28 tablet by ity of tablet 00:00: mouth [place] 00 daily. Medical Branch lisinopriL 2020-0 Yes [id number] 40mg Take 1 U nivers 40 mg 9-28 tablet by ity of tablet 00:00: mouth [place] 00 daily. Medical Branch hydroCHLORO 2020-0 Yes [id number] 25mg Take 1 Univers thiazide 25 9-28 tablet by ity of mg tablet 00:00: mouth [place] 00 daily. Medical Branch amLODIPine 2020-0 Yes [id number] 10mg Take 1 U nivers 10 mg 9-28 tablet by ity of tablet 00:00: mouth [place] 00 daily. Medical Branch albuterol 2020-0 Yes [id number] 2{puff} Inhale 2 Univers 90 7-22 Puffs ity of mcg/actuati 00:00: every 6 [place] as on inhaler 00 (six) Medical hours as Branch needed for Wheezing or Shortness of Breath. albuterol 2020-0 Yes [id number] 2{puff} Inhale 2 Univers 90 7-22 Puffs ity of mcg/actuati 00:00: every 6 [place] as on inhaler 00 (six) Medical hours as Branch needed for Wheezing or Shortness of Breath. albuterol 2020-0 Yes [id number] 2{puff} Inhale 2 Univers 90 7-22 Puffs ity of mcg/actuati 00:00: every 6 [place] on inhaler 00 (six) Medical hours as Branch needed for Wheezing or Shortness of Breath. albuterol 2019-0 Yes [id number] 2{puff} Inhale 2 Univers 90 7-22 Puffs ity of mcg/actuati 00:00: every 6 [place] on inhaler 00 (six) Medical hours as Branch needed for Wheezing or Shortness of Breath. albuterol 2019-0 Yes [id number] 2{puff} Inhale 2 Univers 90 7-22 Puffs ity of mcg/actuati 00:00: every 6 [place] on inhaler 00 (six) Medical hours as Branch needed for Wheezing or Shortness of Breath. albuterol 2019- Yes [id number] 2{puff} Inhale 2 Univers 90 7-22 Puffs ity of mcg/actuati 00:00: every 6 [place] on inhaler 00 (six) Medical hours as Branch needed for Wheezing or Shortness of Breath. lisinopril Yes [id number] 20mg Take 1 U nivers 20 mg 5-14 tablet by ity of tablet 00:00: mouth [place] 00 daily. Medical Branch lisinopril 2019-0 Yes [id number] 20mg Take 1 U nivers 20 mg 5-14 tablet by ity of tablet 00:00: mouth [place] 00 daily. Medical Branch lisinopril 2019-0 Yes [id number] 20mg Take 1 U nivers 20 mg 5-14 tablet by ity of tablet 00:00: mouth [place] 00 daily. [facility] Branch lisinopril 2020- No [id number] 20mg Take 1 Univers 20 mg 5-14 [...] Medical 11/02/19 Branch at 1745, DALE
[facility] member approving Restricted medication : JETHRO SCHAEFFER traMADol 50 2020-0 Yes [id number] 50mg Take 1 Univers mg tablet 5-01 tablet by ity o f 00:00: mouth [place] 00 every 6 Medical (six) Branch hours as needed for Pain (scale 7-10). ketorolac 2020-0 Yes [id number] 10mg Take 1 Un davi 10 mg 5-01 tablet by ity of tablet 00:00: mouth [place] 00 every 6 Medical (six) Branch hours as needed for Pain (scale 7-10). cyclobenzap 2020-0 Yes [id number] 5mg Take 1 Univers rine 5 mg 5-01 tablet by ity o f tablet 00:00: mouth 3 [place] 00 (three) Medical times Branch daily as needed for Muscle Spasms. lidocaine 5 2020-0 Yes [id number] 1{patch Apply 1 Univers % (700 5-01 } Patch to ity of mg/patch) 00:00: area(s) [place] patch 00 every 12 Medical (twelve) Branch hours as needed for Localized pain. traMADol 50 2020-0 Yes [id number] 50mg Take 1 Univers mg tablet 5-01 tablet by ity o f 00:00: mouth [place] 00 every 6 Medical (six) Branch hours as needed for Pain (scale 7-10). ketorolac 2020-0 Yes [id number] 10mg Take 1 Un davi 10 mg 5-01 tablet by ity of tablet 00:00: mouth [place] 00 every 6 Medical (six) Branch hours as needed for Pain (scale 7-10). cyclobenzap 2020-0 Yes [id number] 5mg Take 1 Univers rine 5 mg 5-01 tablet by ity o f tablet 00:00: mouth 3 [place] 00 (three) Medical times Branch daily as needed for Muscle Spasms. lidocaine 5 2020-0 Yes [id number] 1{patch Apply 1 Univers % (700 5-01 } Patch to ity of mg/patch) 00:00: area(s) [place] patch 00 every 12 Medical (twelve) Branch hours as needed for Localized pain. traMADol 50 2020-0 Yes [id number] 50mg Take 1 Univers mg tablet 5-01 tablet by ity o f 00:00: mouth [place] 00 every 6 Medical (six) Branch hours as needed for Pain (scale 7-10). ketorolac 2020-0 Yes [id number] 10mg Take 1 Un davi 10 mg 5-01 tablet by ity of tablet 00:00: mouth [place] 00 every 6 Medical (six) Branch hours as needed for Pain (scale 7-10). cyclobenzap 2020-0 Yes [id number] 5mg Take 1 Univers rine 5 mg 5-01 tablet by ity o f tablet 00:00: mouth 3 [place] 00 (three) Medical times Branch daily as needed for Muscle Spasms. lidocaine 5 2020-0 Yes [id number] 1{patch Apply 1 Univers % (700 5-01 } Patch to ity of mg/patch) 00:00: area(s) [place] patch 00 every 12 Medical (twelve) Branch hours as needed for Localized pain. traMADol 50 2020-0 Yes [id number] 50mg Take 1 Univers mg tablet 5-01 tablet by ity o f 00:00: mouth [place] 00 every 6 Medical (six) Branch hours as needed for Pain (scale 7-10). ketorolac 2020-0 Yes [id number] 10mg Take 1 Un davi 10 mg 5-01 tablet by ity of tablet 00:00: mouth [place] 00 every 6 Medical (six) Branch hours as needed for Pain (scale 7-10). cyclobenzap 2020-0 Yes [id number] 5mg Take 1 Univers rine 5 mg 5-01 tablet by ity o f tablet 00:00: mouth 3 [place] 00 (three) Medical times Branch daily as needed for Muscle Spasms. lidocaine 5 2020-0 Yes [id number] 1{patch Apply 1 Univers % (700 5-01 } Patch to ity of mg/patch) 00:00: area(s) [place] patch 00 every 12 Medical (twelve) Branch hours as needed for Localized pain. traMADol 50 2020-0 Yes [id number] 50mg Take 1 Univers mg tablet 5-01 tablet by ity o f 00:00: mouth [place] 00 every 6 Medical (six) Branch hours as needed for Pain (scale 7-10). ketorolac 2020-0 Yes [id number] 10mg Take 1 Un davi 10 mg 5-01 tablet by ity of tablet 00:00: mouth [place] 00 every 6 Medical (six) Branch hours as needed for Pain (scale 7-10). cyclobenzap 2020-0 Yes [id number] 5mg Take 1 Univers rine 5 mg 5-01 tablet by ity o f tablet 00:00: mouth 3 [place] 00 (three) Medical times Branch daily as needed for Muscle Spasms. lidocaine 5 2020-0 Yes [id number] 1{patch Apply 1 Univers % (700 5-01 } Patch to ity of mg/patch) 00:00: area(s) [place] patch 00 every 12 Medical (twelve) Branch hours as needed for Localized pain. traMADol 50 2020-0 Yes [id number] 50mg Take 1 Univers mg tablet 5-01 tablet by ity o f 00:00: mouth [place] 00 every 6 Medical (six) Branch hours as needed for Pain (scale 7-10). ketorolac 2020-0 Yes [id number] 10mg Take 1 Un davi 10 mg 5-01 tablet by ity of tablet 00:00: mouth [place] 00 every 6 Medical (six) Branch hours as needed for Pain (scale 7-10). cyclobenzap 2020-0 Yes [id number] 5mg Take 1 Univers rine 5 mg 5-01 tablet by ity o f tablet 00:00: mouth 3 [place] 00 (three) Medical times Branch daily as needed for Muscle Spasms. lidocaine 5 2020-0 Yes [id number] 1{patch Apply 1 Univers % (700 5-01 } Patch to ity of mg/patch) 00:00: area(s) [place] patch 00 every 12 Medical (twelve) Branch hours as needed for Localized pain. traMADol 50 2020-0 Yes [id number] 50mg Take 1 Univers mg tablet 5-01 tablet by ity o f 00:00: mouth [place] 00 every 6 Medical (six) Branch hours as needed for Pain (scale 7-10). ketorolac 2020-0 Yes [id number] 10mg Take 1 Un davi 10 mg 5-01 tablet by ity of tablet 00:00: mouth [place] 00 every 6 Medical (six) Branch hours as needed for Pain (scale 7-10). cyclobenzap 2020-0 Yes [id number] 5mg Take 1 Univers rine 5 mg 5-01 tablet by ity o f tablet 00:00: mouth 3 [place] 00 (three) Medical times Branch daily as needed for Muscle Spasms. lidocaine 5 2020-0 Yes [id number] 1{patch Apply 1 Univers % (700 5-01 } Patch to ity of mg/patch) 00:00: area(s) [place] patch 00 every 12 Medical (twelve) Branch hours as needed for Localized pain. traMADol 50 2020-0 Yes [id number] 50mg Take 1 Univers mg tablet 5-01 tablet by ity o f 00:00: mouth [place] 00 every 6 Medical (six) Branch hours as needed for Pain (scale 7-10). ketorolac 2020-0 Yes [id number] 10mg Take 1 Un davi 10 mg 5-01 tablet by ity of tablet 00:00: mouth [place] 00 every 6 Medical (six) Branch hours as needed for Pain (scale 7-10). cyclobenzap 2020-0 Yes [id number] 5mg Take 1 Univers rine 5 mg 5-01 tablet by ity o f tablet 00:00: mouth 3 [place] 00 (three) Medical times Branch daily as needed for Muscle Spasms. lidocaine 5 2020-0 Yes [id number] 1{patch Apply 1 Univers % (700 5-01 } Patch to ity of mg/patch) 00:00: area(s) [place] patch 00 every 12 Medical (twelve) Branch hours as needed for Localized pain. traMADol 50 2020-0 Yes [id number] 50mg Take 1 Univers mg tablet 5-01 tablet by ity o f 00:00: mouth [place] 00 every 6 Medical (six) Branch hours as needed for Pain (scale 7-10). ketorolac 2020-0 Yes [id number] 10mg Take 1 Un davi 10 mg 5-01 tablet by ity of tablet 00:00: mouth [place] 00 every 6 Medical (six) Branch hours as needed for Pain (scale 7-10). cyclobenzap 2020-0 Yes [id number] 5mg Take 1 Univers rine 5 mg 5-01 tablet by ity o f tablet 00:00: mouth 3 [place] 00 (three) Medical times Branch daily as needed for Muscle Spasms. lidocaine 5 2020-0 Yes [id number] 1{patch Apply 1 Univers % (700 5-01 } Patch to ity of mg/patch) 00:00: area(s) [place] patch 00 every 12 Medical (twelve) Branch hours as needed for Localized pain. traMADol 50 2020-0 Yes [id number] 50mg Take 1 Univers mg tablet 5-01 tablet by ity o f 00:00: mouth [place] 00 every 6 Medical (six) Branch hours as needed for Pain (scale 7-10). ketorolac 2019-0 Yes [id number] 10mg Take 1 Un davi 10 mg 5-01 tablet by ity of tablet 00:00: mouth [place] 00 every 6 Medical (six) Branch hours as needed for Pain (scale 7-10). cyclobenzap 2019-0 Yes [id number] 5mg Take 1 Univers rine 5 mg 5-01 tablet by ity o f tablet 00:00: mouth 3 [place] 00 (three) Medical times Branch daily as needed for Muscle Spasms. lidocaine 5 2019-0 Yes [id number] 1{patch Apply 1 Univers % (700 5-01 } Patch to ity of mg/patch) 00:00: area(s) [place] patch 00 every 12 Medical (twelve) Branch hours as needed for Localized pain. predniSONE 2020- No [id number] 40mg Take 2 Univers 20 mg 5-01 05-06 tablets by ity of tablet 00:00: 04:59 mouth [place] 00 :00 every Medical morning Branch for 4 days. chlorthalid 2018-07 Yes [id number] 25mg Take 1 Univers one 25 mg 1-11 tablet by ity o f tablet 00:00: mouth [place] 00 daily. Medical Branch chlorthalid 2018-07 Yes [id number] 25mg Take 1 Univers one 25 mg 1-11 tablet by ity o f tablet 00:00: mouth [place] 00 daily. Medical Branch chlorthalid 2018-07 Yes [id number] 25mg Take 1 Univers one 25 mg 1-11 tablet by ity o f tablet 00:00: mouth [place] 00 daily. Medical Branch chlorthalid 2018-07 Yes [id number] 25mg Take 1 Univers one 25 mg 1-11 tablet by ity o f tablet 00:00: mouth [place] 00 daily. Medical Branch chlorthalid 2018-07 Yes [id number] 25mg Take 1 Univers one 25 mg 1-11 tablet by ity o f tablet 00:00: mouth [place] 00 daily. Medical Branch chlorthalid 2018-07 2020- No [id number] 25mg Take 1 Univers one 25 mg 1-11 09-28 tablet by ity of tablet 00:00: 00:00 mouth [place] 00 :00 daily. Medical Branch Immunizations Ordered Filled Immunization Date Status Comments [facility] e Immunization Name Name Influenza Virus 2019-04-05 Completed Universit y of Vaccine Quad .5 mL 00:00:00 [facility] 6+ [place] Branch Influenza Virus 2019-04-05 Completed Universit y of Vaccine 00:00:00 [facility] Influenza Virus 2019-04-05 Completed Universit y of Vaccine Quad .5 mL 00:00:00 [facility] 6+ [place] Branch Influenza Virus 2019-04-05 Completed Universit y of Vaccine 00:00:00 [facility] Influenza Virus 2019-04-05 Completed Universit y of Vaccine Quad .5 mL 00:00:00 [facility] 6 [place] Branch Influenza Virus 2019-04-05 Completed Universit y of Vaccine 00:00:00 [facility] Influenza Virus 2019-04-05 Completed Universit y of Vaccine Quad .5 mL 00:00:[address] [place] Influenza Virus 2019-04-05 Completed Universit y of Vaccine 00:00:00 [facility] Influenza Virus 2019-04-05 Completed Universit y of Vaccine Quad .5 mL 00:00:[address] [place] Branch Influenza Virus 2019-04-05 Completed Universit y of Vaccine 00:00:00 [facility] Influenza Virus 2019-04-05 Completed Universit y of Vaccine Quad .5 mL 00:00:[address] [place] Branch Influenza Virus 2019-04-05 Completed Universit y of Vaccine 00:00:00 [facility] Influenza Virus 2019-04-05 Completed Universit y of Vaccine Quad .5 mL 00:00:00 [facility] 6+ [place] Branch Influenza Virus 2019-04-05 Completed Universit y of Vaccine 00:00:00 [facility] Influenza Virus 2019-04-05 Completed Universit y of Vaccine Quad .5 mL 00:00:00 [facility] 6+ [place] Branch Influenza Virus 2019-04-05 Completed Universit y of Vaccine 00:00:00 [facility] Influenza Virus 2019-04-05 Completed Universit y of Vaccine Quad .5 mL 00:00:00 [facility] 6 [place] Branch Influenza Virus 2019-04-05 Completed Universit y of Vaccine 00:00:00 [facility] Influenza Virus 2019-04-05 Completed Universit y of Vaccine Quad .5 mL 00:00:[address] [place] Branch Influenza Virus 2019-04-05 Completed Universit y of Vaccine 00:00:00 [facility] Vital Signs Vital Name Observation Time Observation Value Comments Source HEIGHT 2021-06-05 13:09:00 154.9 cm WEIGHT 2021-06-05 13:09:00 51.256 kg WEIGHT 2021-05-27 03:00:00 51.1 kg WEIGHT [...] 13:37:00 150 mm[Hg] Univer sity of pressure [facility] Diastolic blood 2020-01-23 13:37:00 111 mm[Hg] Unive rsity of pressure [facility] Heart rate 2020-01-23 13:36:00 77 /min Universi ty of [facility] Body temperature 2020-01-23 13:36:00 36.78 Leigh Ann Univ ersity of [facility] Branch Respiratory rate 2020-01-23 13:36:00 16 /min Univ ersity of [facility] Branch Oxygen saturation in 2020-01-23 13:36:00 98 /min University of Arterial blood by [facility] Pulse oximetry Branch Systolic blood 2020-01-23 13:37:00 150 mm[Hg] Univer sity of pressure [facility] Branch Diastolic blood 2020-01-23 13:37:00 111 mm[Hg] Unive rsity of pressure [facility] Heart rate 2020-01-23 13:36:00 77 /min Universi ty [facility] Body temperature 2020-01-23 13:36:00 36.78 [place] Univ ersity of [facility] Branch Respiratory rate 2020-01-23 13:36:00 16 /min Univ ersity of [facility] Branch Oxygen saturation in 2020-01-23 13:36:00 98 /min University of Arterial blood by [facility] Pulse oximetry Branch Systolic blood 2019-11-02 22:25:00 172 mm[Hg] Univer sity of pressure [facility] Branch Diastolic blood 2019-11-02 22:25:00 119 mm[Hg] Unive rsity of pressure [facility] Heart rate 2019-11-02 22:25:00 71 /min Universi ty of [facility] Body temperature 2019-11-02 21:14:00 36.83 Leigh Ann Univ ersity of [facility] Respiratory rate 2019-11-02 21:14:00 16 /min Univ ersity of [facility] Body weight 2019-11-02 21:14:00 63.997 kg Universi ty of [facility] BMI 2019-11-02 21:14:00 26.66 kg/m2 Universi ty of [facility] Oxygen saturation in 2019-11-02 21:14:00 97 /min University of Arterial blood by [facility] Pulse oximetry Branch Systolic blood 2019-11-02 22:25:00 172 mm[Hg] Univer sity of pressure [facility] Diastolic blood 2019-11-02 22:25:00 119 mm[Hg] Unive rsity of pressure [facility] Heart rate 2019-11-02 22:25:00 71 /min Universi ty of [facility] Body temperature 2019-11-02 21:14:00 36.83 Leigh Ann [facility] ersity of [facility] Respiratory rate 2019-11-02 21:14:00 16 /min Univ ersity of [facility] Body weight 2019-11-02 21:14:00 63.997 kg Universi ty of [facility] BMI 2019-11-02 21:14:00 26.66 kg/m2 Universi ty of [facility] Oxygen saturation in 2019-11-02 21:14:00 97 /min University of Arterial blood by [facility] Pulse oximetry Branch Systolic blood 2021-05-20 11:41:00 146 mm[Hg] [facility] 2021-05-20 11:41:00 93 mm[Hg] [facility] Heart rate 2021-05-20 11:41:00 75 /min [facility] Body temperature 2021-05-20 11:41:00 37 Leigh Ann [facility] Respiratory rate 2021-05-20 11:41:00 18 /min [facility] Oxygen saturation in 2021-05-20 11:41:00 99 /min [facility] by Medical Ce nter Pulse oximetry Body weight 2021-05-19 15:15:00 56.1 kg [facility] BMI 2021-05-19 15:15:00 23.37 kg/m2 [facility] Body height 2021-05-11 15:42:00 154.9 cm [facility] Procedures Procedure Date / Time Performing Clinician Source Performed BASIC METABOLIC PANEL 2021-05-20 04:42:00 Vaibhav Law [place] [id number]) [facility] IR TUNNELED CATHETER 2021-05-19 10:58:00 Anastacia Raygoza [facility] SCREEN, URINE 2021-05-19 09:42:00 Jessica Hickman [facility] HEMODIALYSIS INPATIENT 2021-05-19 08:57:33 Anastacia Raygoza [facility] BASIC METABOLIC PANEL 2021-05-19 03:57:00 [facility] BASIC METABOLIC PANEL 2021-05-18 05:26:00 [place] [id number]) [facility] HEMODIALYSIS INPATIENT 2021-05-16 13:24:13 Anastacia Raygoza [facility] CBC W/PLT COUNT & AUTO 2021-05-16 05:23:00 Ajit Nash [facility] BASIC METABOLIC PANEL 2021-05-16 05:23:00 Ajit Nash [facility] () [facility] CBC W/PLT COUNT & AUTO 2021-05-16 05:23:00 Ajit Nash [facility] HEMOGLOBIN AND 2021-05-15 21:46:00 Anastacia Raygoza [facility] US RENAL BIOPSY 2021-05-15 15:20:00 Benigno Roe [facility] TISSUE EXAM 2021-05-15 15:03:00 Ajit Nash [facility] CBC W/PLT COUNT & AUTO 2021-05-15 04:41:00 SaadSridharcomstock Mariano [facility] BASIC METABOLIC PANEL 2021-05-15 04:41:[address] PROTHROMBIN TIME/INR 2021-05-15 04:41:00 Anastacia Raygoza [facility] CBC W/PLT COUNT & AUTO 2021-05-15 04:41[facility] 2021-05-14 11:57:00 Anastacia Raygoza [facility] CBC W/PLT COUNT & AUTO 2021-05-14 04:34:[facility] 2021-05-14 [facility] CBC W/PLT COUNT & AUTO 2021-05-14 04:34[facility]ED 2021-05-13 04:14:00 [facility] COMPREHENSIVE METABOLIC 2021-05-13 04:14:00 [facility] MAGNESIUM 2021-05-13 04:14:00 [facility] PHOSPHORUS 2021-05-13 04:14:00 [facility] CBC W/PLT COUNT & AUTO 2021-05-13 04:14:00 [facility] VITAMIN D, 25-HYDROXY 2021-05-13 04:14:00 [facility] CBC W/PLT COUNT & AUTO 2021-05-13 04:14:[address] [facility] CT BRAIN WITHOUT IV 2021-05-12 21:53:00 [facility] [facility] METANEPHRINES 2021-05-12 05:54:00 Anastacia Raygoza [facility] CBC W/PLT COUNT & AUTO 2021-05-12 05:53:00 Ajit Nash [facility] BASIC METABOLIC PANEL 2021-05-12 05:53:00 Ajit Nash [address] RENIN, PLASMA 2021-05-12 05:53:00 Jaret Anastacia Angelesquan [facility] ALDOSTERONE 2021-05-12 05:53:00 Jaret [facility] CORTISOL 2021-05-12 05:53:00 Jaret [facility] CBC W/PLT COUNT & AUTO 2021-05-12 05:53:00 Ajit Nash [facility] ECG 12-LEAD 2021-05-11 10:34:27 Ajit Nash [facility] ECG 12-LEAD 2021-05-11 10:34:27 Unknown, Hl7 Doctor [facility] URINALYSIS W/ 2021-05-11 10:07:00 Benigno Roe [facility] SCREEN, URINE 2021-05-11 10:07:00 Ajit Nash [facility] PROTEIN, RANDOM URINE 2021-05-11 05:00:00 Benigno Roe [facility] CREATININE, RANDOM URINE 2021-05-11 05:00:00 Benigno Roe [facility] EOSINOPHIL SMEAR, URINE 2021-05-11 05:00:00 Benigno Roe [facility] SODIUM, RANDOM URINE 2021-05-11 05:00:00 Benigno Roe [facility] BASIC METABOLIC PANEL 2021-05-11 04:54:00 Jennyfer Galvez [address] HEPATIC FUNCTION PANEL 2021-05-11 04:54:[address] [facility] PROTHROMBIN TIME/INR 2021-05-11 04:54:00 Jennyfer Galvez [facility] MAGNESIUM 2021-05-11 04:54:00 Jennyfer Galvez [facility] PHOSPHORUS 2021-05-11 04:54:00 Lenny [facility] CBC W/PLT COUNT & AUTO 2021-05-11 04:54:00 Jennyfer Galvez [facility] S [facility] - DIFFERENTIAL [facility] PERIPHERAL BLOOD SMEAR - 2021-05-11 04:54:00 Mayelin Toth [facility] CBC W/PLT COUNT & AUTO 2021-05-11 04:54:[address] [facility] S t [facility] HCG, QUANTITATIVE, 2021-05-10 04:52:00 [facility] COMPLE[facility] COMPONENT C4 2021-05-10 04:52:00 Lenny [facility] HEPATITIS B PANEL 2021-05-10 04:52:00 Lenny [facility] HAPTOGLOBIN 2021-05-10 04:52:00 Lenny [facility] BASIC METABOLIC PANEL 2021-05-10 04:52:[address] HEPATIC FUNCTION PANEL 2021-05-10 04:52:00 Lenny [facility] PROTHROMBIN TIME/INR 2021-05-10 04:52:00 Lenny [facility] HEMOGLOBIN A1C 2021-05-10 04:52:00 Lenny [facility] MAGNESIUM 2021-05-10 04:52:00 Lenny [facility] PHOSPHORUS 2021-05-10 04:52:00 Lenny [facility] CBC W/PLT COUNT & AUTO 2021-05-10 04:52:[address] [facility] S [facility] - DIFFERENTIAL [facility] CBC W/PLT COUNT & AUTO 2021-05-10 04:52:00 Lenny [facility] S t [facility] - DIFFERENTIAL [facility] ANTI-NUCLEAR ANTIBODY 2021-05-09 20:06:00 Lyndsey Galvezbrianjaniya [facility] (YUMIKO) [facility] DOUBLE-STRANDED DNA 2021-05-09 20:06:00 Jennyfer Galvez [facility] - (DSDNA) ANTIBODY [facility] HEPATITIS PANEL, ACUTE 2021-05-09 20:06:00 Lenny LyndseyFormerly [facility] VITAMIN B12 2021-05-09 20:06:00 Lenny [facility] IRON, TIBC, % SAT. 2021-05-09 20:06:00 Jennyfer Galvez [facility] (WITHOUT FERRITIN) [facility] FERR[facility]IN 2021-05-09 20:06:00 LennyLyndseyFormerly [facility] SARS-COV2/RT-PCR ([facility] 2021-05-09 19:04:[address] [facility] - REF LABS) [facility] US RENAL COMPLETE 2021-05-09 18:22:00 [facility] BASIC METABOLIC PANEL 2021-05-09 16:04:00 [facility] ([facility] HEPATIC FUNCTION PANEL 2021-05-09 16:04:00 LennyLyndseyFormerly [facility] PROTHROMBIN TIME/INR 2021-05-09 16:04:00 Lenny [facility] MAGNESIUM 2021-05-09 16:04:00 Lenny [facility] PHOSPHORUS 2021-05-09 16:04:00 Lenny [facility] CBC W/PLT COUNT & AUTO 2021-05-09 16:04:00 Jennyfer Galvez [facility] S [facility] - DIFFERENTIAL [facility] PERIPHERAL BLOOD SMEAR - 2021-05-09 16:04:00 Jennyfer Galvez [facility] - PATHOLOGIST REVIEW [facility] LACTATE DEHYDROGENASE 2021-05-09 16:04:00 Jennyfer Galvez [facility] - (LDH) [facility] RETICULOCYTE COUNT 2021-05-09 16:04:00 Jennyfer Galvez [facility] - [facility] FIBRINOGEN 2021-05-09 16:04:00 Lenny LyndseyFormerly [facility] FIBRIN SOLUBLE MONOMER 2021-05-09 16:04:00 Lyndsey GalvezFormerly [facility] TYPE AND SCREEN, 2021-05-09 16:04:00 Lenny Jennyfer [facility] s - AUTOMATED [facility] CBC W/PLT COUNT & AUTO 2021-05-09 16:04:00 Lenny Jennyfer [facility] S t [facility] - DIFFERENTIAL [facility] (CELLAVISION MANUAL 2021-05-09 16:04:00 LennySunny langstonuye [facility] - DIFF) [facility] PERIPHERAL BLOOD SMEAR - 2021-05-09 14:47:00 Neo [place] [facility] ECG 12-LEAD 2021-05-09 14:20:57 [facility] ECG 12-LEAD 2021-05-09 14:20:57 Unknown, Hl7 Doctor [facility] XR CHEST 1 VIEW PORTABLE 2021-05-09 13:58:00 Lenny Sunnyyue [facility] - / BEDSIDE [facility] ASSIGNMENT OF BENEFITS 2020-01-23 13:09:03 Doctor Unassigned, No [facility] Plan of Care Planned Activity Planned Date Details Comments Source Future Scheduled 2021-03-04 INFLUENZA VACCINE [facility]00 (#1) [code = Medical Center INFLUENZA VACCINE (#1)] Future Scheduled 2020-07-[address] [facility] Test 00:00:00 (12+) [code = Medical Center DEPRESSION SCREENING (12+)] Future Scheduled 2011-09-[address] [facility] - Test 00:00:00 malignant neoplasm of Medica l Center cervix (procedure) [code = 023796084] Future Scheduled [address] [facility] Test 00:00:00 (procedure) [code = Medical Center [id number]] Future Scheduled 2009 DTAP/TDAP/TD VACCINES [facility] Test 00:00:00 (1 - Tdap) [code = Medical C enter DTAP/TDAP/TD VACCINES (1 - Tdap)] Future Scheduled 2002 COVID-19 VACCINE (1) [facility] Test 00:00:00 [code = COVID-[address] VACCINE (1)] Encounters Start End Encounter Admission Attending Care Care Encounter Source Date/Time Date/Time Type Type Clinicians Facility Department ID 2021-04-30 Emergency [facility] [id number] Univers 19:40:[address] [facility] 2021-06-05 2021-06-05 Outpatient MING BROWN [facility] [id number] SLE 00:00:00 00:00:00 LAY 2021-06-05 2021-06-05 Outpatient MING BROWN [facility] [id number] SLEH 00:00:00 00:00:00 MONICA 2021-05-09 2021-05-27 [facility] 20 [id number] [facility] 12:43:00 13:15:00 CHELITA 2021-05-26 2021-05-26 Outpatient STEPHANIE [facility] [id number] SLEH 00:00:00 00:00:00 MONICA 2021-05-18 2021-05-18 Outpatient MING BROWN [facility] [id number] SLEH 00:00:00 00:00:00 LAY 2021-05-09 2021-05-09 Outpatient [facility] [id number] [facility] 00:00:00 23:59:00 Kenan Medicin e 2021-05-09 2021-05-[address] [facility] [id number] 00:00:00 00:00:00 Only [facility] 2020-09-23 2020-09-23 Patient Cal [facility] 1.2.840.114 [id number] Univers 00:00:00 00:00:00 Outreach Zeek PRIMARY [id number] i ty of [place] [id number] Ri dical [address] 2020-09-23 2020-09-23 Patient Cal [facility] 1.2.840.114 [id number] 00:00:00 00:00:00 Outreach Zeke PRIMARY [id number] [place] CARE 4.2.7.2.686 PAVILLION [id number] [facility] 2020-04-01 2020-04-01 Telephone Terri Bran [facility] 1.2.840.114 [id number] Univers 00:00:00 00:00:00 Perez HEALTH [id number] it [place] [id number] Med ical RICHA [address] [place] [address] 2020-04-01 2020-04-01 Telephone Terri Bran [facility] 1.2.840.114 [id number] 00:00:00 00:00:00 Perez HEALTH [id number] FAMILY 4.2.7.2.[id number] 2020-03-31 2020-03-31 Outpatient R YINA TERRI [facility] [id number] Univers 14:40:00 14:40:[id number] [facility] 2020-03-31 2020-03-31 Outpatient R YINA TERRI [facility] [id number] Univers 14:40:00 14:40:[address] [facility] 2020-03-31 2020-03-31 Telemedici Terri Bran [facility] 1.2.840.114 [id number] Univers 11:27:39 11:47:39 ne Visit Perez HEALTH [id number] i [place] [id number] Med ical RICHA [address] [place] [address] 2020-03-31 2020-03-31 Telemedici Terri Bran [facility] 1.2.840.114 [id number] 11:27:39 11:47:39 ne Visit Peerz HEALTH [id number] FAMILY 4.2.7.2.686 MEDICINE [id number] RICHA [address] [place] [address] 2020-03-31 2020-03-31 YINA Pulido 1.2.840.114 [id number] Univers 00:00:00 00:00:00 Triage Karolina YOSEPH 350.1.13.10 it y of HOSPITAL 4.2.7.2.686 [place] as [id number] [address] 2020-03-31 2020-03-31 Telephone Terri Bran [facility] 1.2.840.114 [id number] Univers 00:00:00 00:00:00 Perez [facility]ALTH 350.1.13.10 [place] [id number] Med ical [address] 2020-03-31 2020-03-31 Telephone Terri Bran [facility] 1.2.840.114 [id number] 00:00:00 00:00:00 Perez HEALTH 350.1.13.10 FAMILY 4.2.7.2.686 MEDICINE [id number] [address] 2020-03-31 2020-03-31 YINA Pulido 1.2.840.114 [id number] 00:00:00 00:00:00 Triage Karolina YOSEPH 350.1.13.10 HOSPITAL 4.2.7.2.686 [id number] 2020-02-04 2020-02-04 Outpatient R FABRICIO [facility] [id number] Univers 10:55:00 10:55:00 VIGNESH [facility] 2020-02-04 2020-02-04 [facility] [id number] Univers 10:55:00 10:55:00 VIGNESH [facility] 2020-01-23 2020-01-23 Outpatient R [facility] [id number] Univers 08:30:00 08:30:00 [id number] [facility] 2020-01-23 2020-01-23 Outpatient R [facility] [id number] Univers 08:30:00 08:30:00 ity of [facility] 2020-01-23 2020-01-23 Urgent Benigno Ya [facility] 1.2.840.11 [id number] Univers 08:10:46 08:25:46 Care Yasmine Easley PRIMARY 350.1.13.10 [place] [id number] Ri dical [address] [place] 2020-01-23 2020-01-23 Urgent Felton [facility] 1.2.840.114 [id number] 08:10:46 08:25:46 Care Benigno PRIMARY 350.1.13.10 CARE 4.2.7.2.686 PAVILLION [id number] 042 2020-01-23 2020-01-23 Orders Doctor YINA 1.2.840.114 [id number] Univers 00:00:00 00:00:00 Only Unassigned, YOSEPH 350.1.13.10 ity of [place] [facility] 4.2.7.2.686 [place]on as [id number] [facility] 00[address] [place] 2020-01-23 2020-01-23 Orders Doctor YINA 1.2.840.114 [id number] 00:00:00 00:00:00 Only Unassigned, YOSEPH 350.1.13.10 [place] [facility] 4.2.7.2.686 [id number] 2019-11-15 2019-11-15 Outpatient Enrique PAUL [facility] [id number] Univers 09:20:00 09:20:[id number] [facility] 2019-11-15 2019-11-15 Outpatient R SERA [facility] [id number] Univers 09:20:00 09:20:[address] [facility] 2019-11-15 2019-11-15 [facility] 1.2.840.114 [id number] Univers 07:51:23 08:11:23 ne Visit Reina [facility] 350.1.13.[address] [facility] 4.2.7.2.686 [place] as CLINIC - [id number] [address] 2019-11-15 2019-11-15 [facility]ici [facility] 1.2.840.114 [id number] 07:51:23 08:11:23 ne Visit Reina DWYER 350.1.13.10 [place] MEDICINE 4.2.7.2.686 CLINIC - [id number] [address] 2019-11-07 2019-11-07 [facility] 1.2.840.114 [id number] [facility] 00:00:00 00:00:00 Vignesh DWYER 350.1.13.10 it y of MEDICINE 4.2.7.2.686 [place] as CLINIC - [phone] [address] 2019-11-07 2019-11-07 [facility] 1.2.840.114 [id number] 00:00:00 00:00:00 Vignesh DWYER 350.1.13.10 MEDICINE 4.2.7.2.686 CLINIC - [id number] [address] 2019-11-02 2019-11-02 Emergency Beck, Naeem B TRAUMA 1.2.840 .114 [id number] [facility] 16:16:18 18:16:00 [facility] 350.1.13.10 [place] [id number] [address] 2019-11-02 2019-11-02 Emergency Beck, Naeem B [place] 1.2.840 .114 [id number] 16:16:18 18:16:00 [facility] 350.1.13.10 4.2.7.2.686 [id number] 014 Results Test Description Test Time Test [...] NOT 1092) ACCURATE CRE ATININE CLEARANCE IN [place] EDICTING GLOMERULAR FILT RATION RATE. ESTIMATED GFR I S NOT APPLICABLE FOR DIALYSIS PATIENTS. Strip Deburrer ID - SITA [facility] W/PLT COUNT & AUTO [id number] 06:07:04 Test Item Value Reference Range Interpretation [...] (BEAKER) (test code = 2801) BASIC METABOLIC [id number] 05:46:48 Test Item Value Reference Range Interpretation [...] S NOT APPLICABLE FOR DIALYSIS PATIEN TS. Strip Deburrer ID - SITA [facility] W/PLT COUNT & AUTO [id number] 05:21:23 Test Item Value Reference Range Interpretation [...] (BEAKER) (test code = 2801) MISCELLANEOUS LAB [id number] 10:35:31 Test Item Value Reference Range Interpretation Comments SCAN RESULT (test code = see scanned result [id number]) see scanned resultSARS-COV2/RT-PCR ([facility])2021-05-24 11:24:11 Test Item Value Reference Range Interpretation Comments SARS-COV2/RT-PCR Negative Negative The SARS-Co V-2 target (test code = nucleic acids a re not [id number]) detected in thi s specimen. Negative result [...] rapid, real-sophy e RT-PCR test intended for th e qualitative detection of nu cleic acid from SARS-CoV-2 in a nasopharyngeal swab specimen collected from individuals suspected of CO VID-19 by their healthcar e provider. This test has been authorized [...] revoked sooner. Fact Sheet for Healthcare Providers: https://www.[employer] ([employer])/Documents/Xpert%20Xpress%20SARS%20CoV-2/Fact%20Sheets/658-1042%20SARS-COV -2%20HEALTHCARE%20PROVIDERS%20FACT%20SHEET.pdf Fact Sheet for Healthcare Patients: https://www.[employer]/Documents/Xpert %20Xpress%20SARS%20CoV-2/Fact%20Sheets/302-3669%20UBTF-GUF-3%20PATIENT%20FACT%20 SHEET.pdfBASIC METABOLIC [id number] 07:35:50 Test Item Value Reference Range Interpretation [...] S NOT APPLICABLE FOR DIALYSIS PATIEN TS. Strip Deburrer ID - SITA [facility] W/PLT COUNT & AUTO [id number] 06:13:19 Test Item Value Reference Range Interpretation [...] (BEAKER) (test code = 2801) BASIC METABOLIC [id number] 06:57:04 Test Item Value Reference Range Interpretation [...] S NOT APPLICABLE FOR DIALYSIS PATIEN TS. Strip Deburrer ID - [place] GC[facility] W/PLT COUNT & AUTO [id number] 06:21:27 Test Item Value Reference Range Interpretation [...] = 2801) CBC W/PLT COUNT & AUTO [id number] 13:50:18 Test Item Value Reference Range Interpretation [...] (BEAKER) (test code = 2801) BASIC METABOLIC [id number] 13:20:37 Test Item Value Reference Range Interpretation [...] S NOT APPLICABLE FOR DIALYSIS PATIEN TS. Strip Deburrer [facility]OL[facility] [id number] 10:57:00 Test Item Value Reference Range Interpretation [...] S NOT APPLICABLE FOR DIALYSIS PATIEN TS. Strip Deburrer ID - [id number] 10:56:21 Test Item Value Reference Range Interpretation Comments PHOSPHORUS (BEAKER) (test code = 5.3 mg/dL 2.3-4.7 H 604) Strip Deburrer ID - [id number] 10:56:20 Test Item Value Reference Range Interpretation Comments MAGNESIUM (BEAKER) (test code = 2.1 mg/dL 1.6-2.6 627) Strip Deburrer ID - AAHAMIDCBC W/PLT COUNT & AUTO [id number] 05:09:19 Test Item Value Reference Range Interpretation [...] (test code = 2801) ANG, TUNNELED CATHETER [id number] 13:35:00Reason for Central Line/PICC?->Need for hemodialysis accessReason for exam:->HD [facility] 1990 Sex: FFINAL REPORT PROCEDURE: Tunneled dialysis catheter placement Procedur al PersonnelAttending physician(s): Imelda Summers physician(s): NoneResident physician(s): [...] than 10Standardized report: SIR_TunneledDialysisCatheter_v3 AttestationSigner name: Imelda David attest that I was present for the entire procedure. I reviewed the stored images and agree with the report as written. Signed: Imelda Nava MDReport Verified Date/Time: 05/20/2021 13:35:01 [facility] Metabolic [id number] 06:54:58 Test Item Value Reference Range Interpretation Comments Sodium (test code = 139 meq/L 233-418 4579-2) Potassium (test code = 4.5 meq/L 3.5-5.1 2823-3) Chloride (test code = 102 meq/L 98-107 2075-0) CO2 (test code = 25 meq/L 22-29 2028-9) BUN (test code = 25 mg/dL 7-21 H 3094-0) Creatinine (test code 5.64 mg/dL 0.57-1.25 H = 2160-0) Glucose (test code = 77 mg/dL 70-105 2345-7) Calcium (test code = 8.8 mg/dL 8.4-10.2 45072-0) EGFR (test code = 9 mL/min/1.73 [place] [address]-6) NOT ACCURATE CREATININE CLEARANCE IN PREDICTING GLOMERULAR FILTRATION RATE . ESTIMATED GFR I S NOT APPLICABLE FOR DIALYSIS PATIENTS. KAREN (test code = KAREN) Strip Deburrer ID - SITA M Lab Interpretation Abnormal (test code = 65227-5) [facility] METABOLIC [id number] 06:54:58 Test Item Value Reference Range Interpretation [...] S NOT APPLICABLE FOR DIALYSIS PATIEN TS. Strip Deburrer ID - SITA MTissue [id number] 17:03:06 Test Item Value Reference Range Interpretation Comments Case Report (test code Surgical Pathology = 104) Report Case: [id number] Authorizing Provider: Ajit Nash MD Collected: 05/15/2021 03:03 PM Ordering Location: [address] Received: 05/15/2021 04:09 PM Service Pathologist: Briana Jenkins MD Specimen: Renal DIAGNOSIS (test code = x8ikxJCqUNRlt2nwHONqaD 3220) FuZzEwMzNcZnRuYmpcdWMx IHtccnRmMVxlcGljOTYwMV qlmdFiSGRocLPxM3Rimdcf NJynNC1wTK0yuCbsjPBnbL NlQXMeKoVhg4wpp352tWQe a4laQJFPrbvfgMd8xXvgK6 1mm6X5SigyX57pvQUmCGE7 BNPqYDZklRWzWLOdTDS0TM JxcMPvS6mzGSQyVI3oqqkq UYlvMLbmTUNevOX0SWAetO ViX3OmKILmUOwzADWoopo2 VkChYr5ogOQglMaxOMveRT HsRKEjYTcmXKVoKsJqMO8s N0nMPtIGPYBPWLJOTQJZI4 FMGO7UGNTVLPRURC2FJ8p7 XHBhclx+BC2enps+LSBHTE 9NRVJVTEFSIEFORCBWQVND BRkMPxKUJOJVY5PELONUH0 1QQVRJQkxFIFdJVEggVEhS U85BV1AVGiSNZXEOW7HPZ6 lPUEFUSFkuIFxwYXIgICAg ZE2yPv8CNHizIM5JSNYHI4 4ROjUCHJNDXB1TPAKWOR7F H3rZZx1YUIVzHGHzaej+XH 5cflx+XDANCVQYD1lUDMLU RUxZIDYwIFRPIDcwJSBJTl GSNwOUQOZZUIzoXuiYJa1E BVQrR9jLNXVFQRHFSJQLUX HENj4EXLakJVEqipv+XH5c flx+LSBBUlRFUklBTCBBTk HoTCBESKYQW6hMHqZUCcTB ITBLUHZEFBXUF5TGPqPNRH SYYAQHF7TWZX6PE2tTJYlI WImoRFaLZ3nBYjyKBr9qQZ Bhclx+EE6fkij+LSBTRUUg D33BNLZZMR4vwDXhwNkzlt FnNYeaj0VcHTraQRPwPJ1m cFebVNAzJB0uELHiX5beyU 0tqhq9BdAhCHZjFkD5ENRn vkW0Moc7MGReNTxjy2ccp6 FoLWOoOWi6cVgeUeQkKBGs u7kwbrGgAiKpNFRoQPFoJX BsjGZwQ628n1fqb8isvaGk qVQ5NIYsBDU4IAwqkwDvml H9WDcleTVoRaC5HInbpoGh HLqoemCygaGiAxu3NDZlJ8 21RUV1qHueh0jzXAH5ELFv FIVnCuQdKz5trCYqL706WX YeAIPVFWSyhAj1HJHbnpOu fyAbfLEMh880B079s2xiVD ZdfkYefIiVqtvwn5ivB023 XHBhcGVydzEyMjQwXHBhcG AqsTG5RZSeUK7nyhkhBIrm EGpaENNodtG4UAEkuZMlR1 KbIDTsHD4mpxpdNEX1GYib TSPyMST2KqBjARBev3Vobh l5YfWafi5jhk98VRI8b1Qs gUqlKVC3CCZ1FpAjJm4unV HaDRLuTK6aZnSbfWUiBTPy oa70bFehIBopYUU2VHEhwu Vao1Mvi3ciBtRyloHeM9gh Q3UmAZGpGGCwRCEeSjNmvo Mlg3Dqs5IviTCmhBt9a0bc AJOtCYSxbYvwp3nrAMI7VG ItrPNkA8dfrN5sAYAmMW8w kqrpu4roPPafMEcuCXByeZ L6qfS5FKUjoMUpH3YqyE1y NUFpWBqnCNNezoe4XuHyBj 9vdGVyeTcyMFxzYmtwYWdl XHBnbmNvbnRccGduZGVjXH BsYWluXHBsYWluXGYwXGZz MjRccWxcbGFuZzEwMzNcaG ljaFxmMVxkYmNoXGYxXGxv E7mmTjOmYhIhXir1BVVzdW NaUISkWhz1XPWomOLeZAHE rVdcgV4kEXAyhUaycY4hcT R7GGQjdyYvzDTVpF1zQCOM bX5xGkA0ZvZeEbM6GJE4VL hccGFyfX0= COMMENT (test code = o8ygpDYsXMUrwDY0PmKzRI 3356) Lgv9ghz4NghBEjhERhBHgd jOEjryZyon62vSW9xK15QC 8eDWAoSsN9KGFepnJ0Qfo2 IQEtVVFzjEXaM819y7jqe4 bdmzFujTQ4oUpnXVNyyhmj CzP3ZOjgDTPazmrqUHu0PL ngPAIchAH8CISwuMOsH0Or IYLpKU5xxim9GXU4XVqfKH BePeM3BNIbuKBzPQFhwRbu IOnhg482JDW0RiEhZGRqzu AdnXgrkV4oMlNcOWOGxSZc bTsceQSygTmdls3eB51bvC PmNY8bARHzfBEwf3LbyXL6 kUGogTYxSHK5cZYmicZgcz CzD90iq4ghaHWalKT9ePJa RLLvxk2fOg15zHRkoRvgjz 1fqkncq5RbaWb4XfBVCELd HU07X9EbuRlutG9ooGQwQc TcaNXlefZbonMxv28hDH0d GHHvQEToS9rvjSZmeCPdBL CrLIIqZKCbFYRqLT6bwm9f LESboxKpmXT5rQngDiFfXY Y6e8TuPuQDeJGiq6HcyZQg bXatenZnAWBgDVJem6HgXZ 7IDDpmv4TuPFOWNRSxjYjd gWAjkQBRCNPuHQ3dCABzpO gjCTOcsl5buSMxACUjy99r yDF5VYt4EYV0U6s1KKDwFi TLaOizbKUcgUDux6MeFKhj xQnvciDjhwRmoJwjQMA0LA QuIFxwYXJ9 CPT Code(s) (test code e2lwbTYgNOVimIB6SqWcVM = 6988) Ciu6mzy9IthMYqeFFcSSln tKGnivClpj12cYV6uW70SH 0xKHNvYiW3BOMfohB0Waj8 XYTwFVQfbNLqD790m3dch6 fugmUncZZ2uIcdFLLzlwzl EhQ4WEaoZVHcnnkcCIj3GV piICDpvOP2QDQdvHDyL2Oz PPZuRZ0xkzl2TGE7XPuxBQ CgMaV4KNRmxSJyOTGjzMdr UQdvy833VMU3JmDsDOWsce NqmZctzR4kRzTbDKR5NXZa EVjfJLlyGFSaPWWbZZT7JX I7WiQ6GAzpSXs4KiE3GWZt cn0= CLINICAL HISTORY (test z1aqyIEaUZVhtMR8QiTpJK code = 3356) Skj4jwc7XxfTAeiVBoHLwx iZDdqpEcba52kEN5zD28EJ 3jRCHoAeN4DSZxpsJ0Uhw4 ZZRqFHFoiGOfJ964r7kbw3 mxfpZymTM0pNhbHDWxlwcd QmN0NQqrICSeezcxQHn5YK gzHXWhoPB8OOKrfQUkO4Oc NGYfFH0rrpk7JDC4PUenJE EeSvM3RCAgwAAwZPQvgYow JKxfz408VCT5VyAaMKZrez RenNcwtJ3kYwGpCVXUY7xu cGFyfQ== SPECIMEN SOURCE (test k1encWPkFZNdzFS5ZxHjCN code = 3377) Efj5dot1WsuMEwoWSwSLbm kYIlxqNsbw50iCG7eP75QP 8oSSBjUvK9JIHstlV0Rfa4 EVXcZONmiVIaK249h3nil3 gnbwSucXB1lCewYUXxwvlm JfP3RKsoJZUllbxnPBq9QU sgFICspWT7XQKnfOWnI4Dn YJDbZF0gxse7DIW4LKtoRX KaKxR9HPBcoIIpMZIscKhz VMtqd712AFY9NnYySTQlpy RplIskrG3eIwXwYMFYTaJG aWRuZXlccGFyfQ== GROSS DESCRIPTION (test y0bpoFIwDTShfUM8PtSjGO code = 3366) Zgl9qek4MwpRBrfZQfCGpl vBTkqzCmdn79rAZ3tE59ZL 5sHBOwQqG0HVAbatG8Xjo0 SWJjKCNfsPObY214u9mcp7 xyqyCybGJ9jQolXTMwkxaw FnV8TGpwCUKcgmkjGMb1YH uqFKNhzMY2LPKynGZtO2Mv FFDzUX0hqex1GAF7DPnrXG JwByC2CUVxyVDuXAUcsKal MIyvb633BZV6UpWhTUVxhw WykAxkbQ5dOfMgBHZREzGa VGhlIHNwZWNpbWVuIGlzIH OhG5RigmPoNBmdXKXoQ64z dGFpbmVycywgYWxsIGxhYm TvWSZft0e0aSD8wGLrlBD4 mCWsxSjaLW8lxWDgDY1CNj LfrnDpLLLjQKWrqU3nQR40 jTUiog9hqXJsUEqsrhQhPu CgGZf0DBZnxB3qGg3fcBOm hE8aIWFdOBHbfAJcSFMfCr LmyCwsz5RdFRKmjaBnYGYc svvgtzqpSM4aDRRschFamD F8RBTcOUNfRZHsBBBzvYHu gdArWG2krSscl7oxH9bsiI Hce9OhoWf9zUVzGCaxNFSc uR3xuF0qJ1Qbu1X5cGAbVC DiZRQzhavwtF5sHRGxQ2Jf dmVkIGluIHNhbGluZSBpcy YvSXAkJcLmoBDbCnC9oXJf vFHkF65yDHA8bOZ1ATgkYL You5lbxiEiq3DudB0pgF5q Gaf0r6Vdb4NepdCmo6H8CY uqws4iTSZpoidvwM0iWCHs T6GskuEhOBmbKPQgDRCdhd QxDxOoZ35yjW4qaSHrA3Hp XOWkfkYpq2M4COLgp0S7JZ Squ1ZxHHNsGSEwtWBsd9Nt bGK7jcH4yZImBZ5mfHNkYA VqjpYxjRX2yQKrKGWut4Lk n2KshhcmFVDvjwzrOAIwBS ZccGFyfQ== MICROSCOPIC DESCRIPTION o0kfeBOzKYNqkYX7XzHaQO (test code = 3371) Tqg0vwa2NbsUTpeGBeSKok aHGsqmBfrv71iLW7mT82TQ 5rVWOlIbR8SIXqzoX2Mvq9 GSBnDBVkpQIaT290a1rsb0 cylvQbiER3sFnqEQQuicsg DpQ9RVrfAEAdumkwJKz0EI dhPBNxeKR7FFUojCBdT6Pz MLKxSW8pifg5MVY4CJxbLZ NsEzX6FPQbiLDhYXBkbPwb WVvxq878FZS0GgRvBIDatw MofDgulY0hOoSwKKCMZIbF UMBQYQYVA0OYD9RBGbKowF HnZHNgkxDEKJE7lU0fmqWs mH23TJShJ00kIMUke1Vknv QyKPwvB79fqXE6ZFkwMTSf IFUbQPEfTNS3qPvsAiXaRN suVCDskEMxTEstx47almWs iRyjJFGxbc01eN6jyYDpoR NnSBIkhE7rKLJ7kFutUQHj VNV8HS1mshMnDVNzDfY4zR hsvFJ9GCGaXHEvsH2zKMU1 rWNlLPmyFVipd0OnnSk8UU PwqFWjj3GvVp9nL51xCQqw o75kelWbcWFixUChIIQuV5 1wxuHzzLXoD8vntc3avOLo KXPxXXRbSN1mrE0ybqyjQ9 xvbWVydWxpIGhhdmUgZXhw ML3hASWulHYfNA1icUCjAJ 6acGWwjZFuwuRpjYQfOV6x iKJdDHr1hBSjM2NjqJXqUG AjhInoEHDaguPlLeT5oMIl B4ragINqqYepOYgznwXym1 VnbWVudGFsIFJCQyBmcmFn tFYxfMFaVN7xADPjwA0oNU B2bJMhEScjxfAap88jXFD7 NWWvV2SilGdcURNeQYEjZF 5pPFAjgJZpSSRpv800r3Jk mxXdzlMyygZuS5JmmFHas2 LxGQFodK0soHNumDmin48l pCQiffBrg5Bgpd3khTIiET TnfiBJbSO0jKZxSWDhVKVr xwIcksS4mPSmdZ52SEXuDV ZcGGfxBMZqr9P7KIAaOLZ1 LNSqeYD0B8s2IUnlePIhg2 JseAcjqVKdeOHnr0GnyhQ6 zBGgSPX8LzYrHQJgRYMpn6 IhxOElzxRnZKWfk3BaCBTi ZCBjaHJvbmljIGluZmxhbW 8rxRnyig1pPh2ogEevqNNs lt1dpLDkNWEaWYYyKWAfD1 CqwRtqmUAbo1HdwNYqavW4 nMEaoM04IUWtgQa4gCGjIo BUaGUgcHJveGltYWwgdHVi wFewxhRipwPfMt1sISjirO TjV6NvxIkmGCddwWtvuS3s bmFpbGVkIGVwaXRoZWxpdW 8bZPtuLGPerMGbNSYos8Zo pSG2JAyraRShqV5gkAijbf BhcnRlcmllcyBoYXZlIGZv J1EekIgem5T0OFHgNPpfmK ukTZmws6RwRJRti4toKXtt gXqcbEGhr8hxNKy6wUVspT xpg1khFiHGu5AooKYpvrUh caoafaYpmvIiKUG9JUSqv5 xlcyBoYXZlIGNvbmNlbnRy pULvlIgzqT83aZ9brTR6jA rif4DagW4hNAAJe2LgiWLx cnRlcmlvbGVzIGhhdmUgZm liadnkh6gwOK0edCDkmZNf LiBccGFyXHBhciBTcGVjaW KeUIU6PWutcvelZV0jw6Yl rgI0anukyGFulXEhQWQTAw WspwLpWn7pRCJka3gwwwOn TWU3AZtvcdV4GWIbHB4uN7 Gph1SfgJJea7QhNLFehQIf zXukjvDvPqG5bEjhTVXts3 XpfMHanbNgc6zci9BlDNK3 vQWbtGFeOBJ4POvrgW0dMX KzpNBsfo1kAI4xCVukyDAt dvZlZCWflhOqj6gukEexb0 NtBT5tzRWwlHIdpCX9R2X5 cmVzLlxwYXJccGFyIERpcm YvyBDYjS08ao5zwSAftpSc X4KfR5N5PAMvocPLsVC5w8 zqG1t5TNfsLJ7ysZJwavIx FAXcM4Tzi74xLWVgr6nrRI UlQDkjXD37FDaafLAcR7uw wi89iRAzPC3jJUWxn4Hqi1 caj7WkqeXoM6smmCFuzFli LlxwYXJccGFyIEltbXVub2 OujW8uOMMlOP4pZNMxyT2b rU6twvnxBNAzdhe1RWNuGE gYBnYkOUpqZD61XKwdAV27 ljFlvHHejLolNc1cIwhkyR 3isVQqbzNxf6ToiC4ypvkw cOLniCprupEeGZN7ztQaxo LoPR98UeEsjEBlDWVgAkUQ K2f9JKVuO44rkuMcbQQlQO JdhQvrzfeyTA7uAF7uv7Qh Z9kgbGAagqDvuJjbhcJwdW OpcuzvCuWmMNZyTPMuy5No gWc1LABosLYmrypyJvA3hA Y4wDYhBVGbl3NrGADkJNYa klXgoPMbQDEaTnETH116LV KxG85byfRjuDSdWFLkpxnc KWkyz1EhfL6wievcFEJvYe neDEDdpin2NNSlBgU2UODt C35hxgSybIVzAEEhltecHE qmi4WabK7ujjomHK35jwQy fNNqcVrpRsjrAISzL3KiCV WaxPAjxMEzUPB2TVyowJ9f LlxwYXJcdGFiIEMxcTogc2 LfyHGulUUlRG2qg2QlO8as kAKmkZFbcgilHa3pnsStQQ TaBK76EYAmEcceKb9jUCet BWP1RYQdLYnlj2UzlA9ang ifwSFjJAJlIyKQsUFkuC1d K1XdStPuYOftIX76TMzuiF GqIO0duJKgYVK3RHqhdU5j L0FqfDEyhT0yebTxIUGmXL Dem8HwjOPielStzcfdqQSk qGTccvsuGy5lRMShjkw7DX YaB1ZxmXY7QIXmMEtzZX99 UVpzrIOjZD7tuOLhVNL0GE cfbB6vM6UwmLFbtF7nxbGl EICyYWRsd3SsbNMgmoYzzm tmrSRfqYPgtlebRh9dfMBw WEYaLqROZV6sKXX1YVBzH6 1lbnRhbCBtZXNhbmdpYWwg j2CbmZ8wfumgRU61qdYcvV EqwKzeYacqAJFfG7LuZFBo kEKptKYfLMF7USqljM6wFo ueAXQzkKCzXYRocQNzq8j8 Z2ahmfAsUDFmdCazt6XiPD BulUBsZPCut4XreN3rcZ8g Foh1f5Tmf4JeypNbPIV1MP jltZ5tWLtisjTuTxTkzoRi cwD7xI87j3a9BBYyw1CrTG TdouTuj7ztk26gtH8ylXW1 IFIpyCCpm6XdxHL6RDZrNZ VfrQk9dEBcMMHuk1j3nLXo m1WhbIj3EMOob138tk9kQN CnEQYtwYGwaa9lKFIkovym AQFwMDzhX44ap3VpSwCCsO XxeNHdttRPvEYpk3Vpx7C7 DaxiWKBbXYqhE8qfb2YcyI hvzwIgxRH9a1epU9q5LWMw vIHyRYnyMPMcpXGjQZF2UC qpEPZss2JqtDbfycBpgvJ5 VNZoZTIvs5Bdm2vwr8Iebc HxLI0sFONbeNSfhKlviJrm bl6cLRDiiYJkj3XrQfRunK 4gPIV7lVPnNjDssKSeBMFj aXTfb1GalIR8aCMbcKPtjB SvdF5sxFarusjvLTrbjLfs QXNdl25lo5IesBzkUNpbw7 5rspSbFSSmbLt1ibUtcFT4 Q0K2fjEdclI6QBYrkgI4uV G2FKVkRSMbzK2rCOT6dEOh PYMwv2AaXN05ZM3fzNCxPS 0zVWtxHU2bHF3blc3goJY0 nFrbg68zq7CaFBOvUWApPG ltDYBiUqE1c5Ubl6LzVX8w z1CyVAtnVGkngeVaJMDwA9 Voo51er7g1fAZshnJviFqt eArpuMBwOPffCCF2LLcbmR 3cYyJUbaOwb3LmaHEqD70n jZ53lvMqSVOcAVCwOC8dID RoZSBtZXNhbmdpYWwgbWF0 arb1MBmzIBF2bYAwROWlJx BTdWJlbmRvdGhlbGlhbCwg o1YpZVGklRwpdSxcuTduOP 5wUA1zh9QtR7yauD7fBSYs uZZaRS8ngLOwRRPrfFPwwF Wlyy4eKW9yCAmdoN6qiF8x IGNvbXBsZXgtdHlwZSBkZX Wzi3b9jsMigmOmyz09UDKh KTHywxBwWAVbHO1scCKeEC Usv2CmxFYpH5Wkq0OoDCUq ZSBleHRlbnNpdmVseSBlZm RpT8QbZhDmnMPxuU== SPECIAL STUDIES (test a9etvPNoVGKvhMD6CuRxMK code = 3376) Lji5ddq6LmvKXupEStKQso bFJdsjWtyk74hRD7pW37CC 3pNGRnLxF8KFRrspT6Kfl1 XSCyHZWuwNRdZ743XZXaAZ LqgFsvwls4nN43WXTixT5y dGJsIDtccmVkMFxncmVlbj ZyQxr6JWA1wMjlYBKrgtxx FuL1HApdGNFuhauhOZh0IO jxWWQkmFX9ELXmbFMqY9Ao UGOkLM4kqza6GHD8QXbfSY WsHeB5KYHjnNRuQOLzxCib SKjaz757GUC5TnJdAYJwuh CrfGonrR3kGwClNtSiRrhn ZjEgVGhlIGludGVycHJldG I9vA8lKE5jDGMxqVQtS9Uo NJTcylRjuIQbACC3aCOggM FrEX3oILubyMVum3rls5We B8zdgJnybLC9XB5jFCZuSV JwQGgnd4FwpM5hLrepVOXv oFNvVRDloxVbq2ufR4xuSM YpKBY3ZY0huyXlUkVsXK7z hE06s8Wqa83vg22riN4tjK AolxHfU21mxDExyZYxf2Ak NCEszwWndCQ4BILsGRprhz nek2g3kDB0nIDcoYDikTS2 aXNzdWUuICBUaGVzZSBjb2 58ia8fHKPjtPXkyhOeiR5s JXtnvknwlYYcIG1pCTXlSP XjTEHbEB38ojKbQG1ikEZb h2vejsOxfZSnr9UkfSC9PT PabTLwunahNp2rEA61KQJb CVkuzB8hkVRorzBmBC7iYZ 9nH9Q5eCJwKJHpqtMxe9rx GJtcUQ4zELNxzIaoAslhOC YdHBHvydZnlMM7XSZloGZz EVRsrGBmGKoqsCApd5krd0 EhJ1uwpBmdoSC5LXSeX0nw fIJydXK6IBM0hH0cGNwvqg VsHYGxh2WfSDFhPOQuJbU6 zM5hPSJ5RbERiDgsXKW3Om I1AShqVGDlLQ7iPSutZXii Y8HcfLLrKDORIRZpj3idE3 lvLQQrw1WkrT3ksBD6qESy APQrfQT5UIZsLRT6OAykpG QkRAWnOTYydAMddCVlDx8l kEOeN3FsX4qrdvTrwEVpaA R6rSZxUQuujbLqUWU4ECSc sN3rKZ4qADKilLRfEZ7qfF KvYPZjRJXvMIBqTCZmc2Lh UPVsiu39OGXeLrnqxDmlQN MhRo7oAq1eRJDypsKzKYO4 ZlLKMO8orekncLEpqZxuyy 5sRIlgUOGIYPVgUMFwOUU6 LFBrfO1cLNF6cSN1XIA8I6 wzT2wgVZFinrGwRK7dQZGc yZZgdeQgCOvuOE7thODzTN Ear8DrjppzBXHwKXG0VUB0 QCooJZGwLATaBw5gZZPjkZ 5dJ8HiZLH0svGyq5OsSeYY cELpyN29uDZkxy87JXZdEH LqN4ZuLHLoKVZoKKbpcbZw sJjzRZMue43djMJqfkFfd6 YugbGeRKRlG4rzJXObsWRo fASxk2RhsY6xuDKfnfBzNU I8kTIuOTIxoX4kYRMvpGng PRInkP1cS3IwNPvoOo8fPX VpllhyQJ6osk93WQ8suzHn OZ3qvnJwYX74cdMsRzOwQH z3VNyGIHpVLNc1IBShytVf wVGyxJGiZZTgeJ5qaETaYl 9ybSBoaWdoIGNvbXBsZXhp eKtmW7ehtlxsZBnwlXJaj0 VvrA6haER8CET8aI5bYpki QZSzjKMbTKMfM7lurWDbuW Cutp6hIJYbeK1lJAPrjlAO SJWwypFntFO1fG1zZLHpsb IfESkcJ3Mju41rxOzofp6k A55bpLPhdLMxmY1zPRxivs DhSYNwx0HuRPPfJVDqVHX3 VWZtDMEvvqKvVR7oaNs6iU VeMBOSDyJRLSAqf4ruY0eo mXKfe8LyeH6jsFxmW3pZJK UvBLP2FRIhMEO0LLxtORO0 PsJdQfQxoF3wfkXWxdYizC ZtDCEmx34hOiN7FSHwFGvp qRY0k17eWJEGHIr3WGDqYr XZrCKsPE4ekP3iN1RsUPsl ztOqrU62KSBtxmQ6ZJUwRo tnsCdxBSGqlZ3axWqiLmIy DWVzo0laV6qksVFkjOZQJ8 wTJt8veLJhhE== Gross assessment was [facility] performed at ([facility], = 2777) Department of Pathology, [address] [place] [address], Technical component was [facility] performed at ([facility], = 2778) Department of Pathology, [address] [place] [address], Professional component [facility] was performed at ([facility], code = 2779) Department of Pathology, [address] [place] [address], [facility] Hospital[facility] [id number] 17:03:06Surgical Pathology Report Case: [id number] Authorizing Provider: Ajit Nash MD Collected: 05/15/2021 03:03 PM Ordering Location: [address] Received: 05/15/2021 04:09 PM Service Pathologist: Briana Jenkins MD Specimen: Renal A. KIDNEY, LEFT, CORE NEEDLE BIOPSY: - GLOMERULAR AND VASCULAR CHANGES, COMPATIBLE WITH THROMBOTIC MICROANGIOPATHY. - FOCAL AND SEGMENTAL GLOMERULOSCLEROSIS. 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 - SEE COMMENT. Signing Pathologist Direct Phone Line: [phone] signed by Briana Jenkins MD on 05/19/2021 at 5:03 PMThe light microscopic and ultrastructural features are consistent with thrombotic microangiopathy. Patient's history of hypertension and pre eclampsia appear to be major contributing factors. Although other causes of TMA like TTP, atypical HUS and drugs cannot be completely excluded. Clinical correlation is suggested. 70014, 96606 X 3, 66507 x 8, 73388IUAF. KidneyA. The specimen is received in 3 [...] segmental mesangial staining/entrapment, 2+, focal arterial staining.. [place]: segmental mesangial staining/entrapment, 2+, focal arterial staining. [...] are evaluatedImmunohistochemistry technical testing was performed at [facility], Pathology Laboratory where it was developed and [...] and electron microscopy imaging was performed at [facility], CV Pathology laboratory, CLIA # [id number], [address], [address], [place] [address]. The EM images were interpreted by the reporting pathologist at [facility], Department of Pathology, [address] [place] [address], [facility], [facility] of [facility], [address] [place] [address], [facility], Department of Pathology, [address] [place] [address], [id number] 13:11:20 Test Item Value Reference Interpretation Comments Range Metanephrine (test 67 pg/mL See_Comment H This jaquan t was developed code = 2847406) and its anal ytical performance characteristics havebeen determined by [facility].It h as not been cleared or appr [...] (test code = and its analyti aviva 8796706) performance characteristics havebeen determined by [facility].It h as not been cleared or appr [...] (test code = reference range : strongly 4545840) suggestive of apheochromocyto ma(1). Elevations >1 - 4-fold upper reference range:significa nt but not diagnostic, may be due to medications or stress. Suggestrunning 24 hr urine fractionated me tanephrines and serum Chrom ogranin A forconfirmation . Reference: (1) Alondra Carolina et al, Plasma Supervisor Policy Change Clerks mogranin A or Urine FractionatedMet anephrines Follow-Up Testi ng Improves the Diagnostic Accuracy of PlasmaFractiona john Metanephrines f or Pheochromocytom a. The Journal of ClinicalEndocri nology and Metabolism 93 ( 1),91-95, 2008. For addit ional information, pl ease refer tohttp://educat ion.[employer]/f aq/MetFract Free(This link is being provided for informational/e ducational purposes only.) This test was developed a nd its analytical perf ormance characteristics havebeen determined by [facility].It h as not been cleared [...] (test code = Performing Lab KAREN) [employer] [facility] [address] [place] [address] Maurice Larsen MD, PhD, ARYAN Lab Interpretation Abnormal (test code = 64505-2) [facility] HospitalPregnancy Screen, [id number] 10:04:01 Test Item Value Reference Range Interpretation Comments Preg Test, Ur (test code = 2112-1) Negative [facility] HospitalPREGNANCY SCREEN, [id number] 10:04:01 Test Item Value Reference Range Interpretation Comments TEST URINE (BEAKER) (test Negative code = 583) BASIC METABOLIC [id number] 05:16:14 Test Item Value Reference Range Interpretation [...] S NOT APPLICABLE FOR DIALYSIS PATIEN TS. Strip Deburrer ID - SITA MBASIC METABOLIC [id number] 06:54:06 Test Item Value Reference Range Interpretation [...] S NOT APPLICABLE FOR DIALYSIS PATIEN TS. Strip Deburrer ID - BRUCE Riggs, [id number] 21:09:34 Test Item Value Reference Range Interpretation Comments PRA,LC/MS/MS 1.22 ng/mL/h 0.25-5.82 This test was developed (test code = and its analyti aviva 0306517) performance characteristics havebeen determined by [facility].It h as not been cleared or approved by FDA. This as say has been validatedp ursuant to the CLIA reg ulations and is used for clinical purposes. KAREN (test Performing Lab code = KAREN) [facility] [address] [facility] [address] I Suzie NOLAN, PhD, ARYAN [facility] METABOLIC [id number] 06:21:05 Test Item Value Reference Range Interpretation [...] S NOT APPLICABLE FOR DIALYSIS PATIEN TS. Strip Deburrer ID - [place] GCBC with platelet count + automated [id number] 05:35:02 Test Item Value Reference Range Interpretation Comments WBC (test code = 6690-2) 9.4 See_Comment [A utomated message] The system [employer] generated this result transmitted ref erence range: 3.5 - 10 .5 K/L. The refe rence range was not u sed to interpret this result as normal/abnor mal. RBC (test code = 789-8) 2.75 See_Comment L [Au tomated message] The system [employer] generated this result transmitted ref erence range: 3.93 - 5 .22 M/L. The refe rence range was not u sed to interpret this result as normal/abnor mal. MCHC (test code = 786-4) 34.5 See_Comment L [A utomated message] The system [employer] generated this result transmitted ref erence range: [...] L [Aut omated message] 777-3) The system [employer] generated this result transmitted ref erence range: 150 - 45 0 K/CU MM. The referen ce range was not u sed to interpret this result as normal/abnor mal. MPV (test code = 11.4 fL 9.4-12.3 55512-0) nRBC (test code = 413) 0 See_Comment [Aut omated message] The system [employer] generated this result transmitted ref erence range: [...] H [Aut omated message] 670) The system [employer] generated this result transmitted ref erence range: 1.56 - 6 .13 K/L. The refe rence range was not u sed to interpret this result as normal/abnor mal. # Lymphs (test code = 1.12 See_Comment L [Auto mated message] 414) The system [employer] generated this result transmitted ref erence range: 1.18 - 3 .74 K/L. The refe rence range was not u sed to interpret this result as normal/abnor mal. # Monos (test code = 0.68 See_Comment H [Autom ated message] 415) The system [employer] generated this result transmitted ref erence range: 0.24 - 0 .36 K/L. The refe rence range was not u sed to interpret this result as normal/abnor mal. # Eos (test code = 416) 0.57 See_Comment H [Au tomated message] The system [employer] generated this result transmitted ref erence range: 0.04 - 0 .36 K/L. The refe rence range was not u sed to interpret this result as normal/abnor mal. # Baso (test code = 417) 0.04 See_Comment [A utomated message] The system [employer] generated this result transmitted ref erence range: 0.01 - 0 .08 K/L. The refe rence range was not u sed to interpret this result as normal/abnor mal. Immature 0 % 0-1 Granulocytes-Relative (test code = 2801) Lab Interpretation (test Abnormal code = 86580-6) [facility] W/PLT COUNT & AUTO [id number] 05:35:02 Test Item Value Reference Range Interpretation [...] (BEAKER) (test code = 2801) Hemoglobin and [id number] 21:54:33 Test Item Value Reference Range Interpretation [...] = 4544-3) KAREN (test code = KAREN) Strip Deburrer ID - 6000 Lab Interpretation Abnormal (test code = 70070-5) [facility] HospitalHEMOGLOBIN AND [id number] 21:54:33 Test Item Value Reference Range Interpretation Comments HEMOGLOBIN (BEAKER) (test code = 8.2 GM/DL 11.2-15.7 L 410) HEMATOCRIT (MERLE) (test code = 24.3 % 34.1-44.9 L 411) Strip Deburrer ID - 6000U/S, BIOPSY, RENAL (KIDNEY)2021-05-15 19:01:00Still trying to control patient's blood pressure. Have increased her medications today on 05/10/2021. If BP still over 160 tomorrow then will have to cancel biopsy. Please review vital signs before bringing down for procedureReason for exam:->[facility] : 1990 Sex: FFINAL [...] Successful ultrasound-guided core biopsy of the left [place] kidney as described above. Signed: Yina Valdes Verified Date/Time: 05/15/2021 19:01:19 Reading Location: [place] [id number] [facility] Reading Room BASIC METABOLIC [id number] 05:39:12 Test Item Value Reference Range Interpretation [...] S NOT APPLICABLE FOR DIALYSIS PATIEN TS. Strip Deburrer ID - [place] GProthrombin time/DTD3869-15-32 05:11:40 Test Item Value Reference Interpretation Comments Range Protime (test code = 13.9 See_Comment [Autom ated 8182-2) message] The system which generated this result transmitted reference range : 11.9 - 14.2 seconds. The reference range was not used to interpret this result as normal/abnormal . INR (test code = 1.09 See_Comment [Automated 0211-6) message] The system which generated this result [...] valves. Lab Interpretation Normal (test code = 59734-0) [facility] HospitalPROTHROMBIN TIME/[id number] 05:11:40 Test Item Value Reference Range Interpretation Comments PROTIME (BEAKER) 13.9 seconds 11.9-14.2 (test code = 759) INR (BEAKER) (test 1.09 See_Comment [Automat ed message] code = 370) The system [employer] generated this result transmitted ref erence range: [...] 0-1 PERCENT (BEAKER) (test code = 2801) [id number] 23:41:04 Test Item Value Reference Interpretation Comments Range Aldosterone (test 2 ng/dL Adult Ref erence code = 1544572) Ranges for Aldosterone: Upright 8:00-10 :00 am < or = 28 ng/ dL Upright 4:00-6: 00 pm < or = 21 ng/ dL Supine 8:00-10 :00 am 3-16 ng/dL Th is test was developed a nd its analytical perf ormance characteristics havebeen determ ined by [facility] .It has not been cleare d or approved by FDA . This assay has been validatedpursua nt to the CLIA regula tions and is used for clinical purpos es. KAREN (test code = Performing Lab KAREN) [facility] [address] [place] [address] Maurice Larsen MD, PhD, ARYAN [facility] METABOLIC [id number] 05:29:21 Test Item Value Reference Range Interpretation [...] S NOT APPLICABLE FOR DIALYSIS PATIEN TS. Strip Deburrer ID - SITA [facility] W/PLT COUNT & AUTO [id number] 05:05:15 Test Item Value Reference Range Interpretation [...] (BEAKER) (test code = 2801) Vitamin D, 77-[id number] 05:18:21 Test Item Value Reference Range Interpretation Comments Vitamin D 25-Hydroxy 6.6 ng/mL 6.6-49.9 (test code = 2764) KAREN (test code = KAREN) Effective 04/13/2017: Reference Range ChangeNew: 6.6-49.9 ng/mL Previous: 13.0-47.8 ng/mL Recommended Vitamin D Target Range: 30.0-40.0 ng/mLOperator ID - PIAYA L Lab Interpretation (test Normal code = 36315-5) [facility] HospitalVITAMIN D, 94-[id number] 05:18:21 Test Item Value Reference Range Interpretation Comments VITAMIN D 25-OH (BEAKER) (test code 6.6 ng/mL 6.6-49.9 = 2764) Effective 04/13/2017: Reference Range ChangeNew: 6.6-49.9 ng/mL Previous: 13.0-47.8 ng/mLRecommended Vitamin D Target Range: 30.0-40.0 ng/mLOperator ID - JOHANAJOYCE LComprehensive metabolic [id number] 05:08:17 Test Item Value Reference Range Interpretation Comments Protein, Total (test 5.4 See_Comment L [Autom ated code = 2885-2) message] The system which generated this result transmit john reference range : 6.0 - 8.3 gm/dL . The reference range was not u sed to interpret th is result as normal/abnormal . Albumin (test code = 3.2 g/dL 3.5-5.0 L 46155-0) Alkaline Phosphatase 40 U/L 40-150 (test code = 6768-6) Total Bilirubin (test 0.6 mg/dL 0.2-1.2 code = 1975-2) Sodium (test code = 139 meq/L 807-228 5749-2) Potassium (test code 4.8 meq/L 3.5-5.1 = 2823-3) Chloride (test code = 103 meq/L 98-107 2075-0) CO2 (test code = 27 meq/L 22-29 2028-9) BUN (test code = 26 mg/dL 7-21 H 3094-0) Creatinine (test code 4.91 mg/dL 0.57-1.25 H = 2160-0) Glucose (test code = 104 mg/dL 70-105 2345-7) Calcium (test code = 8.2 mg/dL 8.4-10.2 L 79954-8) AST (test code = 11 U/L 5-34 1920-8) ALT (test code = 8 U/L 6-55 1742-6) EGFR (test code = 10 mL/min/1.73 [place] [address]-2) NOT ACCURATE CREATININE CLEARANCE IN PREDICTING GLOMERULAR FILTRATION RATE . ESTIMATED GFR I S NOT APPLICABLE FOR DIALYSIS PATIEN TS. KAREN (test code = KAREN) Strip Deburrer ID - JANETT L Lab Interpretation Abnormal (test code = 48992-8) [facility] HospitalCOMPREHENSIVE METABOLIC [id number] 05:08:17 Test Item Value Reference Range Interpretation [...] S NOT APPLICABLE FOR DIALYSIS PATIEN TS. Strip Deburrer ID - JANETT [id number] 05:07:40 Test Item Value Reference Range Interpretation Comments Phosphorus (test code = 5.9 mg/dL 2.3-4.7 H 2777-1) KAREN (test code = KAREN) Strip Deburrer ID - JANETT L Lab Interpretation (test Abnormal code = 08055-4) [facility] 05:07:40 Test Item Value Reference Range Interpretation Comments PHOSPHORUS (BEAKER) (test code = 5.9 mg/dL 2.3-4.7 H 604) Strip Deburrer ID - JANETT [id number] 05:07:39 Test Item Value Reference Range Interpretation Comments Magnesium (test code = 2.1 mg/dL 1.6-2.6 04711-1) KAREN (test code = KAREN) Strip Deburrer ID - JANETT L Lab Interpretation (test Normal code = 20930-5) [facility] 05:07:39 Test Item Value Reference Range Interpretation Comments MAGNESIUM (BEAKER) (test code = 2.1 mg/dL 1.6-2.6 627) Strip Deburrer ID - JANETT LCalcium, [id number] 04:55:54 Test Item Value Reference Range Interpretation Comments Calcium, Ion (test code = 1993-) 1.05 mmol/L 1.12-1.27 L pH, Blood (test code = 79143-6) 7.48 Lab Interpretation (test code = Abnormal 60155-1) [facility]CAL[facility], [id number] 04:55:54 Test Item Value Reference Range Interpretation Comments CALCIUM IONIZED (BEAKER) (test 1.05 mmol/L 1.12-1.27 L code = 698) PH, BLOOD (BEAKER) (test code = 7.48 1810) CBC W/PLT COUNT & AUTO [id number] 04:47:53 Test Item Value Reference Range Interpretation [...] (test code = 2801) CT, BRAIN, WITHOUT [id number] 22:18:00Unlisted Reason for Exam - Click Yes and Enter Reason Below->No [facility] : 1990 Sex: FFINAL [...] Date/Time: 05/12/2021 22:18:02 Double- Stranded DNA (dsDNA) [id number] 10:37:15 Test Item Value Reference Range Interpretation Comments ds DNA Ab (test code = 1055) Negative Negative [facility]ED [facility] (DSDNA) [id number] 10:37:15 Test Item Value Reference Range Interpretation Comments ANTI-DNA DS (BEAKER) (test code = Negative Negative 1055) [id number] 06:54:11 Test Item Value Reference Range Interpretation Comments Cortisol, Total (test code 5.4 ug/dL 3.7-19.4 = 2755) KAREN (test code = KAREN) Strip Deburrer ID - SITA M Lab Interpretation (test Normal code = 15911-0) [facility]OL2021-[facility]-09 06:54:11 Test Item Value Reference Range Interpretation Comments CORTISOL, TOTAL (BEAKER) (test code 5.4 ug/dL 3.7-19.4 = 2755) Strip Deburrer ID - SITA MBASIC METABOLIC [id number] 06:44:11 Test Item Value Reference Range Interpretation [...] S NOT APPLICABLE FOR DIALYSIS PATIEN TS. Strip Deburrer ID - SITA MCBC W/PLT COUNT & AUTO [id number] 06:17:13 Test Item Value Reference Range Interpretation [...] PERCENT (BEAKER) (test code = 2801) SCREEN, [id number] 15:54:03 Test Item Value Reference Range Interpretation Comments TEST URINE (BEAKER) (test Negative code = 583) Eosinophil [id number] 14:16:55 Test Item Value Reference Range Interpretation Comments Eosinophil Smear (test code = No EOS seen No EOS seen 86779-7) Lab Interpretation (test code = Normal 69118-7) [facility]EOSINOPHIL SMEAR, [id number] 14:16:55 Test Item Value Reference Range Interpretation Comments EOSINOPHIL SMEAR, URINE (BEAKER) No EOS seen No EOS seen (test code = 1851) Anti-Nuclear Antibody (YUMIKO)2021-05-11 13:06:18 Test Item Value Reference Range Interpretation Comments YUMIKO (test code = 07568-5) Negative Negative KAREN (test code = KAREN) Test performed by IFA method. Lab Interpretation (test Normal code = 40643-1) [facility] HospitalANTI-NUCLEAR ANTIBODY (YUMIKO)2021-05-11 13:06:18 Test Item Value Reference Range Interpretation Comments ANTI-NUCLEAR ANTIBODY (YUMIKO) (BEAKER) Negative Negative (test code = 418) Test performed by IFA method.Sodium, random [id number] 11:58:37 Test Item Value Reference Range Interpretation Comments Sodium Urine (test 97 meq/L code = 2955-3) KAREN (test code = Reference Range: No KAREN) NormalsOperator MINNA Deras [facility]OD[facility] RANDOM [id number] 11:58:37 Test Item Value Reference Range Interpretation Comments SODIUM URINE (BEAKER) (test code = 97 meq/L 243) Reference Range: No NormalsOperator MINNA [place] FCreatinine, random urine 2021-05-11 11:58:36 Test Item Value Reference Range Interpretation Comments Creatinine, Ur 48.3 mg/dL (test code = 2161-8) KAREN (test code = Reference Range: No KAREN) NormalsOperator MINNA Deras [facility] HospitalCREATININE, RANDOM [id number] 11:58:36 Test Item Value Reference Range Interpretation Comments CREATININE URINE (BEAKER) (test 48.3 mg/dL code = 375) Reference Range: No NormalsOperator MINNA FALLON FProtein, random urine 2021-05-11 10:40:59 Test Item Value Reference Range Interpretation Comments Protein, Urine (test code 172 mg/dL 0-14 H = 2888-6) KAREN (test code = KAREN) Strip Deburrer MINNA Deras Lab Interpretation (test Abnormal code = 44037-3) [facility]OM [id number] 10:40:59 Test Item Value Reference Range Interpretation Comments PROTEIN, URINE (BEAKER) (test code 172 mg/dL 0-14 H = 1569) Strip Deburrer MINNA FALLON FUrinalysis w/[id number] 10:37:39 Test Item Value Reference Range Interpretation Comments Color, UA (test code Light Yellow = 5778-6) Clarity, UA (test Hazy code = 5767-9) Specific [place], UA 1.009 1.001-1.035 (test code = 5811-5) pH, UA (test code = 7.5 5.0-8.0 5803-2) Protein, UA (test 200 mg/dL Negative A code = 75943-3) Glucose, UA (test Negative Negative code = 365) Ketones, UA (test Negative Negative code = 2514-8) Bilirubin, UA (test Negative Negative code = 25034-7) Blood, UA (test code Large Negative A = 16587-0) Nitrite, UA (test Negative Negative code = 5802-4) Leukocytes, UA (test Moderate Negative A code = 5799-2) Urobilinogen, UA 0.2 mg/dL 0.2-1.0 (test code = 67896-9) RBC, UA (test code = 5 See_Comment [Autom ated 03798-5) message] The system which generated this result [...] . Bacteria, UA (test Rare code = 08624-5) Squam Epithel, UA 7 See_Comment [Automate d (test code = 45861-2) messag e] The system which generated this [...] Crystals, Urine (test None Seen code = 20414-8) Specimen Source (test code = 2795) KAREN (test code = KAREN) Strip Deburrer ID - [auto]Strip Deburrer ID - tech Lab Interpretation Abnormal (test code = 18985-1) [facility]/ [id number] 10:37:39 Test Item Value Reference Range Interpretation [...] = 1521) SOURCE(BEAKER) (test code = 2795) Strip Deburrer ID - [auto]Strip Deburrer ID - techPeripheral Blood Smear - Path Review 2021-05-11 09:20:57 Test Item Value Reference Range Interpretation Comments Pathologist Review No circulating blasts. (test code = 2640) No significantly increased schistocytes. Pathologist: (test Carlos Marcelinoheathen, code = 2849) M.D.(electronic signature) [facility]PER[facility] - PATHOLOGIST REVIEW 2021-05-11 09:20:57 Test Item Value Reference Range Interpretation Comments PERIPHERAL SMR REVIEW No circulating blasts. (BEAKER) (test code = No significantly 2640) increased schistocytes. [id number] Carlos Armenen, (BEAKER) (test code = M.D.(electronic 2849) signature) Peripheral Blood Smear - Hold [id number] 08:50:08 Test Item Value Reference Range Interpretation Comments Peripheral Smear Save (test code = saved 1815) [facility]PER[facility] - HOLD [id number] 08:50:08 Test Item Value Reference Range Interpretation Comments PERIPHERAL SMEAR SAVE (BEAKER) (test saved code = 1815) BASIC METABOLIC [id number] 05:30:46 Test Item Value Reference Range Interpretation [...] S NOT APPLICABLE FOR DIALYSIS PATIEN TS. Strip Deburrer ID - SITA epatic function [id number] 05:29:36 Test Item Value Reference Range Interpretation Comments Protein, Total (test 4.9 See_Comment L [Autom ated code = 2885-2) message] The system which generated this result transmit john reference range : 6.0 - 8.3 gm/dL . The reference range was not u sed to interpret th is result as normal/abnormal . Albumin (test code = 2.9 g/dL 3.5-5.0 L 09793-1) Total Bilirubin (test 0.7 mg/dL 0.2-1.2 code = 1975-2) Bilirubin, Direct 0.3 mg/dL 0.1-0.5 (test code = 1968-7) Alkaline Phosphatase 29 U/L 40-150 L (test code = 6768-6) AST (test code = 14 U/L 5-34 1920-8) ALT (test code = 14 U/L 6-55 1742-6) KAREN (test code = KAREN) Strip Deburrer ID - SITA Roy Lab Interpretation Abnormal (test code = 21565-5) [facility] HospitalHEPATIC FUNCTION [id number] 05:29:36 Test Item Value Reference Range Interpretation [...] (test code = 14 U/L 6-55 347) Strip Deburrer ID - SITA [id number] 05:29:35 Test Item Value Reference Range Interpretation Comments PHOSPHORUS (BEAKER) (test code = 4.3 mg/dL 2.3-4.7 604) Strip Deburrer ID - SITA [id number] 05:29:34 Test Item Value Reference Range Interpretation Comments MAGNESIUM (BEAKER) (test code = 1.8 mg/dL 1.6-2.6 627) Strip Deburrer ID - SITA MPROTHROMBIN TIME/[id number] 05:27:17 Test Item Value Reference Range Interpretation Comments PROTIME (BEAKER) 14.1 seconds 11.9-14.2 (test code = 759) INR (BEAKER) (test 1.11 See_Comment [Automat ed message] code = 370) The system [employer] generated this result transmitted ref erence range: [...] Not Detected, (test code = Negative, See 06727-1) external report for linked test SARS-COV-2 [facility] PERFORMING LAB (test code = 71835-1) KAREN (test code = Negative result for [...] of the Act. Fact Sheet for Healthcare Providers:https://www.[employer]Encite/sites/default/f eric/product/documents/F act_Sheet_HC_Providers_L poa_MAOI-GdV-5.pdf Fact Sheet for Healthcare Patients:https://www.[employer]/sites/default/fi les/product/documents/Fa ct_Sheet_Patients_Lyra_S ARS-CoV-2.pdf Performing Laboratory:[facility] [place] [address] [facility] ([facility])2021-05-10 09:26:37 Test Item Value Reference Range Interpretation Comments SARS-COV2/RT-PCR (test Negative Not Detected, Negative, code = 9554029) See external report for linked test SARS-COV-2 PERFORMING LAB [facility] (test code = 4251630) Negative result for this test determines that [...] 564(g) of the Act.Fact Sheet for Healthcare Providers:https://www.[employer].Encite/sites/default/files/product/documents/Fact_Shee z_TJ_Sgwmdbhop_Qpgs_WLWQ-MoP-8.pdfFact Sheet for Healthcare Patients:https://www.[employer]/sites/default/files/product/ documents/Qcks_Kzhjm_Vbcsuqsf_Hpys_FZNH-UqX-9.pdfPerforming Laboratory:[facility], [place] [address]Lsylktzwwu A1c 2021-05-10 08:50:45 Test Item Value Reference Range Interpretation Comments Hemoglobin A1C (test code = 4548-4) 5.1 % 4.3-6.1 Lab Interpretation (test code = Normal 33346-0) [facility] HospitalHEMOGLOBIN [id number] 08:50:45 Test Item Value Reference Range Interpretation Comments HEMOGLOBIN A1C (BEAKER) (test code = 5.1 % 4.3-6.1 368) hCG, quantitative, [id number] 05:45:56 Test Item Value Reference Range Interpretation Comments hCG Quant (test code <1 See_Comment [Autom ated = 43606-2) message] The system which generated this result [...] 10,000-100,000 6-8 Weeks 15,000-200,000 2-3 Months 10,000-100,000 Strip Deburrer ID - JANETT L Lab Interpretation Normal (test code = 36505-9) [facility] HospitalHCG, QUANTITATIVE, [id number] 05:45:56 Test Item Value Reference Range Interpretation Comments GONADOTROPIN, CHORIONIC (HCG) QUANT < mIU/mL 0-10 (BEAKER) (test code = 649) Non- Females: <10 mIU/mL Females: Gestation Age Reference Range(mIU/mL) 0.2-1 Week 5-50 1-2 Weeks 50-500 2-3 Weeks 100-5,000 3-4Weeks 500-10,000 4-5 Weeks 1,000-50,000 5-6 Weeks 10,000-100,000 6-8 Weeks 15,000-200,000 2-3 Months 10,000-100,000 Strip Deburrer ID - JANETT Ng Hepatitis B [id number] 05:44:41 Test Item Value Reference Range Interpretation Comments Hep B Core Total Ab Nonreactive Nonreactive (test code = 92302-6) Hep B S Ab (test 20.7 See_Comment H [Automated code = 83318-6) message] The system which generated this result transmitted reference range : <8.0 mIU/mL. e reference range was not used to interpret this result as normal/abnormal . HBsAg Screen (test Nonreactive Nonreactive code = 5195-3) KAREN (test code = Strip Deburrer ID - KAREN) JOHANAJOYCE Ng Lab Interpretation Abnormal (test code = 54870-1) [facility] HospitalHEPATITIS B [id number] 05:44:41 Test Item Value Reference Range Interpretation Comments HEPATITIS B CORE TOTAL ANTIBODY Nonreactive Nonreactive (BEAKER) (test code = 497) HEPATITIS B SURFACE ANTIBODY 20.7 mIU/mL <8.0 H (BEAKER) (test code = 647) HEPATITIS B SURFACE ANTIGEN (2) Nonreactive Nonreactive (BEAKER) (test code = 2585) Strip Deburrer ID - JANETT LBASIC METABOLIC [id number] 05:37:00 Test Item Value Reference Range Interpretation [...] S NOT APPLICABLE FOR DIALYSIS PATIEN TS. Strip Deburrer ID - JANETT [id number] 05:36:12 Test Item Value Reference Range Interpretation Comments PHOSPHORUS (BEAKER) (test code = 3.4 mg/dL 2.3-4.7 604) Strip Deburrer ID - JANETT ISBELLEPATIC FUNCTION [id number] 05:36:12 Test Item Value Reference Range Interpretation [...] (test code = 14 U/L 6-55 347) Strip Deburrer ID - JANETT [id number] 05:36:11 Test Item Value Reference Range Interpretation Comments MAGNESIUM (BEAKER) (test code = 1.9 mg/dL 1.6-2.6 627) Strip Deburrer ID - JANETT [id number] 05:29:10 Test Item Value Reference Range Interpretation Comments Haptoglobin (test code = <8 14-258 L 4542-7) KAREN (test code = KAREN) Strip Deburrer ID - JOHNAAJOYCE L Lab Interpretation (test Abnormal code = 49655-1) [facility] HospitalHAPTOGLOBIN2021-11-07 05:29:10 Test Item Value Reference Range Interpretation Comments HAPTOGLOBIN (BEAKER) (test code = < mg/dL 14-258 L 366) Strip Deburrer ID - JOHANAJOYCE LComplement Component [id number] 05:23:42 Test Item Value Reference Range Interpretation Comments C3 Complement (test code = 69 mg/dL 82-193 L 4487-5) KAREN (test code = KAREN) Strip Deburrer ID - JANETT L Lab Interpretation (test Abnormal code = 94723-2) [facility] HospitalCOMPLEMENT COMPONENT [id number] 05:23:42 Test Item Value Reference Range Interpretation Comments C3 COMPLEMENT (BEAKER) (test code = 69 mg/dL 82-193 L 393) Strip Deburrer MINNA ROWLAND LComplement Component [id number] 05:23:41 Test Item Value Reference Range Interpretation Comments C4 Complement (test code = 23 mg/dL 15-57 14976-5) KAREN (test code = KAREN) Strip Deburrer ID Indra ROWLAND L Lab Interpretation (test Normal code = 79757-7) [facility] HospitalCOMPLEMENT COMPONENT [id number] 05:23:41 Test Item Value Reference Range Interpretation Comments C4 COMPLEMENT (BEAKER) (test code = 23 mg/dL 15-57 394) Strip Deburrer MINNA ROWLAND LCBC W/PLT COUNT & AUTO [id number] 05:20:24 Test Item Value Reference Range Interpretation [...] PERCENT (BEAKER) (test code = 2801) PROTHROMBIN TIME/[id number] 05:17:58 Test Item Value Reference Range Interpretation Comments PROTIME (BEAKER) 14.7 seconds 11.9-14.2 H (test code = 759) INR (BEAKER) (test 1.17 See_Comment [Automat ed message] code = 370) The system [employer] generated this result transmitted ref erence range: <=5.90. The reference range was not used to int erpret this result as normal/abnormal . RECOMMENDED COUMADIN/WARFARIN INR THERAPY RANGESSTANDARD DOSE: 2.0 - 3.0 Includes: PROPHYLAXIS forvenous thrombosis, systemic embolization; TREATMENT for venous thrombosis and/or pulmonary embolus.HIGH RISK: Target INR is 2.5-3.5 for patients with mechanical heart valves.U/S, RENAL, [id number] 01:22:00 Reordered per original order due to many scans and procedures and limited staffReason for exam:->acute renal failureShould this be performed at the bedside?->Yes[facility] : 1990 Sex: FFINAL [...] suggesting chronic renal disease. Signed: Sara Khan MDRinezort Verified Date/Time: 05/10/2021 01:22:15 Hepatitis panel, [id number] 21:50:13 Test Item Value Reference Range Interpretation Comments Hep A IgM (test code = Nonreactive Nonreactive 79708-2) Hep B C IgM (test code = Nonreactive Nonreactive 32062-6) Hepatitis C Ab (test code = Nonreactive Nonreactive 96285-2) HBsAg Screen (test code = Nonreactive Nonreactive 5195-3) KAREN (test code = KAREN) Strip Deburrer ID - DB Lab Interpretation (test Normal code = 84608-5) [facility] HospitalHEPATITIS PANEL, [id number] 21:50:13 Test Item Value Reference Range Interpretation Comments HEPATITIS A IGM ANTIBODY (BEAKER) Nonreactive Nonreactive (test code = 498) HEPATITIS B CORE IGM ANTIBODY Nonreactive Nonreactive (BEAKER) (test code = 645) HEPATITIS C ANTIBODY (BEAKER) Nonreactive Nonreactive (test code = 367) HEPATITIS B SURFACE ANTIGEN (2) Nonreactive Nonreactive (BEAKER) (test code = 2585) Strip Deburrer ID - DBVitamin [id number] 21:05:30 Test Item Value Reference Range Interpretation Comments Vitamin B12 (test code = 346 pg/mL 905-339 3866-9) KAREN (test code = KAREN) Strip Deburrer ID - GRISELDA B Lab Interpretation (test Normal code = 81488-1) [facility] HospitalVITAMIN [id number] 21:05:30 Test Item Value Reference Range Interpretation Comments VITAMIN B12 (BEAKER) (test code = 346 pg/mL 213-816 774) Strip Deburrer ID - GRISELDA [id number] 20:58:23 Test Item Value Reference Range Interpretation Comments Ferritin (test code = 143.75 ng/mL 5.00-275.00 2276-4) KAREN (test code = KAREN) Strip Deburrer ID - GRISELDA B Lab Interpretation (test Normal code = 41915-2) [facility] HospitalFERRITIN2021-11-06 20:58:23 Test Item Value Reference Range Interpretation Comments FERRITIN (BEAKER) (test code = 143.75 ng/mL 5.00-275.00 361) Strip Deburrer ID - GRISELDA Benyon, TIBC, % sat. (without ferritin)2021-05-09 20:37:27 Test Item Value Reference Range Interpretation Comments Iron (test code = 2498-4) 43.0 ug/dL 40.0-160.0 TIBC (test code = 2500-7) 205 ug/dL 250-450 L Iron % Saturation (test 21 % 20-55 code = 2502-3) KAREN (test code = KAREN) Strip Deburrer ID - GRISELDA B Lab Interpretation (test Abnormal code = 80736-0) [facility] HospitalIRON, TIBC, % SAT. (WITHOUT FERRITIN)2021-05-09 20:37:27 Test Item Value Reference Range Interpretation Comments IRON (BEAKER) (test code = 547) 43.0 ug/dL 40.0-160.0 TOTAL IRON BINDING CAPACITY 205 ug/dL 250-450 L (BEAKER) (test code = 769) IRON % SATURATION (2) (BEAKER) 21 % 20-55 (test code = 2590) Strip Deburrer ID - GRISELDA BType and screen, [id number] 18:57:00 Test Item Value Reference Range Interpretation Comments ABO/RH AUTOMATED (BEAKER) (test O POSITIVE code = 2260) Ab Scrn (test code = 890-4) NEGATIVE [facility] HospitalFibrin soluble [id number] 18:16:36 Test Item Value Reference Range Interpretation Comments Fibrin Soluble Monomer (test code = Negative 31533-5) [facility] HospitalFIBRIN SOLUBLE [id number] 18:16:36 Test Item Value Reference Range Interpretation Comments FIBRIN SOLUBLE MONOMER (BEAKER) Negative (test code = 1416) PERIPHERAL BLOOD SMEAR - HOLD [id number] 18:01:08 Test Item Value Reference Range Interpretation Comments PERIPHERAL SMEAR SAVE (BEAKER) (test saved code = 1815) Manual [id number] 17:45:23 Test Item Value Reference Range Interpretation [...] = 3438) KAREN (test code = KAREN) Strip Deburrer ID - 6000Operator ID - Stacy comments: Slide comments: Lab Interpretation Abnormal (test code = 20650-3) [facility](CELLAVISION MANUAL DIFF)2021-05-09 17:45:23 Test Item Value Reference [...] CONCENTRATION Decreased (CELLAVISION)(BEAKER) (test code = 3438) Strip Deburrer ID - 6000Operator ID - Stacy comments: Slide comments:BASIC METABOLIC [id number] 17:12:57 Test Item Value Reference Range Interpretation [...] S NOT APPLICABLE FOR DIALYSIS PATIEN TS. Strip Deburrer ID - DBLactate dehydrogenase (LDH)2021-05-09 17:12:52 Test Item Value Reference Range Interpretation Comments LDH (test code = 2532-0) 569 U/L 125-220 H KAREN (test code = KAREN) Strip Deburrer ID - DB Lab Interpretation (test Abnormal code = 69430-5) [facility] HospitalLACTATE DEHYDROGENASE (LDH)2021-05-09 17:12:52 Test Item Value Reference Range Interpretation Comments LACTATE DEHYDROGENASE (BEAKER) (test 569 U/L 125-220 H code = 635) Strip Deburrer ID - [id number] 17:12:51 Test Item Value Reference Range Interpretation Comments PHOSPHORUS (BEAKER) (test code = 4.8 mg/dL 2.3-4.7 H 604) Strip Deburrer ID - DBHEPATIC FUNCTION [id number] 17:12:51 Test Item Value Reference Range Interpretation [...] (test code = 6 U/L 6-55 347) Strip Deburrer ID - [id number] 17:12:50 Test Item Value Reference Range Interpretation Comments MAGNESIUM (BEAKER) (test code = 2.2 mg/dL 1.6-2.6 627) Strip Deburrer ID - [id number] 17:01:46 Test Item Value Reference Range Interpretation Comments Fibrinogen (test code = 3255-7) 287 mg/dl 225-434 Lab Interpretation (test code = Normal 84895-8) [facility] HospitalFIBRINOGEN2021-11-06 17:01:46 Test Item Value Reference Range Interpretation Comments FIBRINOGEN LEVEL (BEAKER) (test 287 mg/dl 225-434 code = 658) PROTHROMBIN TIME/[id number] 16:56:50 Test Item Value Reference Range Interpretation Comments PROTIME (BEAKER) 14.7 seconds 11.9-14.2 H (test code = 759) INR (BEAKER) (test 1.17 See_Comment [Automat ed message] code = 370) The system [employer] generated this result transmitted ref erence range: [...] PERCENT (BEAKER) (test code = 2801) Reticulocyte [id number] 16:50:26 Test Item Value Reference Range Interpretation Comments % Retic (test code = 2.9 % 0.5-1.7 H 18318-9) KAREN (test code = KAREN) Strip Deburrer ID - 6000 Lab Interpretation (test Abnormal code = 08471-9) [facility] HospitalRETICULOCYTE [id number] 16:50:26 Test Item Value Reference Range Interpretation Comments RETICULOCYTE COUNT PCT (BEAKER) (test 2.9 % 0.5-1.7 H code = 575) Strip Deburrer ID - 6000RAD, CHEST, 1 VIEW, NON [id number] 14:52:00Reason for exam:->acute renal failureShould this be performed at the bedside?->Yes [facility] 1990 Sex: FFINAL [...] Stable contours. Additional findings: None. Signed: Mila [place] Verified Date/Time: 05/09/2021 14:52:43
[2021-06-08 08:17] LABS: Absolute Lymphocytes (CBC) 1.1 K/uL (0.7-4.9); Hematocrit 39.3 % (36.0-45.0); Lymphocytes % 12.3 % (15.3-44.8); MPV 7.3 fL (7.6-11.3); RBC Red Blood Cell Count 4.36 M/uL (3.86-4.86)
[2021-06-08 08:36] LABS: Albumin 3.8 g/dL (3.4-5.0); Bilirubin Direct 0.1 mg/dL (0-0.2); Bilirubin Total 0.4 mg/dL (0.2-1.0); Protein, Total 7.9 g/dL (6.4-8.2)
[2021-06-08] MEDS ORDERED: LACTULOSE 20 GM/30 ML UCUP ONE (09:03)
--- NOTE | 2021-06-08 10:00 | RAD REPORT ---
EXAM DESCRIPTION: CT - Abdomen Pelvis Wo Contrast - 06/08/2021 9:43 am CLINICAL HISTORY: Abdominal pain. ABD PAIN COMPARISON: No comparisons TECHNIQUE: CT imaging of the abdomen and pelvis was performed without contrast. Solid organ, bowel a nd vascular assessment is limited due to lack of IV and oral contrast. All CT scans are performed using dose optimization technique as appropriate and may include automated exposure control or mA/KV adjustment according to patient size. FINDINGS: The lower lung guy are clear. The liver, spleen, pancreas, adrenal glands and kidneys are within normal limits for a limited non-co ntrast examination. No bowel obstruction, free air, free fluid or abscess. There is a large amount of stool throughout th e colon evident including a large amount impacted in the rectum. The appendix is not identified as a discrete structure, however, no secondary findings of appendicitis are identified. The osseous structures are within normal limits. IMPRESSION: Significant fecal retention is seen with evidence of rectal fecal impaction. A limited non-contrast examination was performed as detailed.
--- NOTE | 2021-06-08 10:17 | ER ---
Nurse's Notes [facility] Name: Shaun Lopez Age: 30 yrs Sex: Female : 1990 Arrival Date: 06/08/2021 Time: 07:28 Bed 15 Private MD: Diagnosis: End stage renal disease-on HD , , Tue;Abdominal pain, unspecified;Constipation;Essential (primary) hypertension Presentation: 06/08 07:42 Chief complaint: Patient states: i am having lower abdominal pain since . LBM tw2 . I have dialysis T//. i am on miralax and a stool softener 2 times a day but i dont know what i can take with all the other medicines i am on. Coronavirus screen: At this time, the client does not indicate any symptoms associated with coronavirus-19. Ebola Screen: Patient denies travel to an Ebola-affected area in the 21 days before illness onset. Initial Sepsis Screen: Does the patient meet any 2 criteria? No. Patient's initial sepsis screen is negative. Does the patient have a suspected source of infection? No. Patient's initial sepsis screen is negative. Risk Assessment: Do you want to hurt yourself or someone else? Patient reports no desire to harm self or others. Onset of symptoms was June 08, 2021. 07:42 Method Of Arrival: Ambulatory tw2 07:42 Acuity: VERNA 2 tw2 Triage Assessment: 07:45 General: Appears uncomfortable, slender, well groomed, Behavior is calm, cooperative, tw2 appropriate for age. Pain: Complains of pain in abdomen. Neuro: Level of Consciousness is awake, alert, obeys commands, Oriented to person, place, time, situation. Cardiovascular: Patient's skin is warm and dry. Respiratory: Airway is patent Respiratory effort is even, unlabored, Respiratory pattern is regular, symmetrical. GI: Reports constipation, nausea. Musculoskeletal: Range of motion: intact in all extremities. 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 tw2 Historical: - Allergies: 07:45 No Known Allergies; tw2 - Home Meds: 07:45 nifedipine 60 mg Oral TbER 1 tab twice daily [Active]; clonidine HCl 0.1 mg Oral tab 1 tw2 tab every 6 hours [Active]; Zofran 4 mg Oral tab 1 tab every 8 hours [Active]; carvedilol 25 mg oral tab 1 tab 2 times per day [Active]; losartan potassium 50 mg 1 tab daily [Active]; docusate sodium 100 mg Oral cap 1 cap 2 times per day [Active]; polyethylene glycol 3350 17 gram/dose oral powd once daily [Active]; sevelamer carbonate 800 mg oral tab 1 tab 3 times per day [Active]; calcitriol 0.25 mcg oral cap 1 cap [Active]; terazosin 2 mg oral cap 1 cap twice daily [Active]; - PMHx: 07:45 "kidney issues"; brain tumor-removed; Hypertension; Migraines; Seizures; tw2 - PSHx: 07:45 brain SX x 2; section; tw2 - Immunization history:: Client reports having NOT received the Covid vaccine. - Social history:: Smoking status: Patient denies any tobacco usage or history of. - Family history:: not pertinent. Screenin:50 Abuse screen: Denies threats or abuse. Nutritional screening: No deficits noted. tw2 Tuberculosis screening: No symptoms or risk factors identified. Fall Risk None identified. Assessment: 07:50 Reassessment: see triage assessment. tw2 08:17 Reassessment: provider at bedside at this time. tw2 08:17 GI: na na. tw2 09:29 Reassessment: No changes from previously documented assessment. Patient and/or family tw2 updated on plan of care and expected duration. Pain level reassessed. Patient is alert, oriented x 3, equal unlabored respirations, skin warm/dry/pink. 09:47 Reassessment: pt back from imaging at this time. tw2 10:30 Reassessment: No changes from previously documented assessment. Patient and/or family tw2 updated on plan of care and expected duration. Pain level reassessed. Patient is alert, oriented x 3, equal unlabored respirations, skin warm/dry/pink. pt in restroom at this time with suppository for self administration. 10:46 Reassessment: No changes from previously documented assessment. Patient and/or family tw2 updated on plan of care and expected duration. Pain level reassessed. Patient is alert, oriented x 3, equal unlabored respirations, skin warm/dry/pink. Vital Signs: 07:42 BP 142 / 104; Pulse 71; Resp 17; Temp 98(O); Pulse Ox 99% ; Weight 52.16 kg (R); Height tw2 5 ft. 1 in. (154.94 cm); Pain 7/10; 08:16 BP 138 / 92; Pulse 76; Resp 17; Pulse Ox 97% on R/A; tw2 09:28 BP 128 / 96; Pulse 68; Resp 17; Pulse Ox 100% on R/A; tw2 10:30 BP 118 / 89; Pulse 77; Resp 17; Pulse Ox 100% on R/A; tw2 07:42 Body Mass Index 21.73 (52.16 kg, 154.94 cm) tw2 ED Course: 07:28 Patient arrived in ED. as 07:37 Bed in low position. Call light in reach. Pulse ox on. NIBP on. tw2 07:40 Javon Rodriguez MD is Attending Physician. trevor 07:42 Larissa Gutierrez RN is Primary Nurse. tw2 07:44 Triage completed. tw2 07:50 Arm band placed on. tw2 08:05 Inserted saline lock: 20 gauge in right antecubital area, using aseptic technique. tw2 Blood collected. 09:43 CT Abd/Pelvis - Without Contrast In Process Unspecified. EDMS 10:16 Oleg Tello MD is Referral Physician. trevor 10:16 Arik Jones MD is Referral Physician. trevor 10:45 No provider procedures requiring assistance completed. IV discontinued, intact, tw2 bleeding controlled, No redness/swelling at site. Pressure dressing applied. Administered Medications: 09:06 Drug: Lactulose 30 grams Volume: 45 ml; Route: PO; tw2 10:21 Follow up: Response: No adverse reaction tw2 10:27 Drug: Dulcolax (bisacodyl) Suppository 10 mg Route: [place]; tw2 10:45 Follow up: Response: No adverse reaction tw2 Outcome: 10:16 Discharge ordered by . trevor 10:45 Discharged to home ambulatory. tw2 10:45 Condition: stable 10:45 Discharge instructions given to patient, Instructed on discharge instructions, follow up and referral plans. medication usage, Demonstrated understanding of instructions, follow-up care, medications, Prescriptions given X 3. 10:46 Patient left the ED. tw2 Signatures: Dispatcher [employer] EDMS Stefania Rodriguezy, MD MD trevor Duong, Yoana as Gutierrez, Larissa, RN RN tw2
--- NOTE | 2021-06-08 10:17 | EDPHYS ---
Physician Documentation [facility] Name: Shaun Lopez Age: 30 yrs Sex: Female : 1990 Arrival Date: 06/08/2021 Time: 07:28 Bed 15 Private MD: NICHELLE Physician Javon Rodriguez HPI: 06/08 08:43 This 30 yrs old Female presents to ER via Ambulatory with complaints of High trevor Blood Pressure, Abdominal Pain. 08:43 The patient has elevated blood pressure and discovered this at home. Onset: The trevor symptoms/episode began/occurred 2 day(s) ago. 08:44 The patient presents with abdominal pain in the upper abdomen, in the lower abdomen. trevor Onset: The symptoms/episode began/occurred 2 day(s) ago. Modifying factors: The symptoms are aggravated by activity, The symptoms are alleviated by remaining still. The symptoms do not radiate. Associated signs and symptoms: The patient has no apparent associated signs or symptoms. Associated signs and symptoms: none. Severity of pain: At its worst the pain was moderate in the emergency department the pain has improved moderately. 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 tw2 Historical: - Allergies: 07:45 No Known Allergies; tw2 - Home Meds: 07:45 nifedipine 60 mg Oral TbER 1 tab twice daily [Active]; clonidine HCl 0.1 mg Oral tab 1 tw2 tab every 6 hours [Active]; Zofran 4 mg Oral tab 1 tab every 8 hours [Active]; carvedilol 25 mg oral tab 1 tab 2 times per day [Active]; losartan potassium 50 mg 1 tab daily [Active]; docusate sodium 100 mg Oral cap 1 cap 2 times per day [Active]; polyethylene glycol 3350 17 gram/dose oral powd once daily [Active]; sevelamer carbonate 800 mg oral tab 1 tab 3 times per day [Active]; calcitriol 0.25 mcg oral cap 1 cap [Active]; terazosin 2 mg oral cap 1 cap twice daily [Active]; - PMHx: 07:45 "kidney issues"; brain tumor-removed; Hypertension; Migraines; Seizures; tw2 - PSHx: 07:45 brain SX x 2; section; tw2 - Immunization history:: Client reports having NOT received the Covid vaccine. - Social history:: Smoking status: Patient denies any tobacco usage or history of. - Family history:: not pertinent. ROS: 08:44 Constitutional: Negative for fever, chills, and weight loss, Eyes: Negative for injury, trevor pain, redness, and discharge, ENT: Negative for injury, pain, and discharge, Neck: Negative for injury, pain, and swelling, Cardiovascular: Negative for chest pain, palpitations, and edema, Respiratory: Negative for shortness of breath, cough, wheezing, and pleuritic chest pain, Back: Negative for injury and pain, : Negative for injury, bleeding, discharge, and swelling, MS/Extremity: Negative for injury and deformity, Skin: Negative for injury, rash, and discoloration, Neuro: Negative for headache, weakness, numbness, tingling, and seizure, Psych: Negative for depression, anxiety, suicide ideation, homicidal ideation, and hallucinations, Allergy/Immunology: Negative for hives, rash, and allergies, Endocrine: Negative for neck swelling, polydipsia, polyuria, polyphagia, and marked weight changes, Hematologic/Lymphatic: Negative for swollen nodes, abnormal bleeding, and unusual bruising. 08:44 Abdomen/GI: Positive for abdominal pain, of the right upper quadrant, left upper quadrant, right lower quadrant and left lower quadrant. Exam: 08:44 Constitutional: This is a well developed, well nourished patient who is awake, alert, trevor and in no acute distress. Head/Face: Normocephalic, atraumatic. Eyes: Pupils equal round and reactive to light, extra-ocular motions intact. Lids and lashes normal. Conjunctiva and sclera are non-icteric and not injected. Cornea within normal limits. Periorbital areas with no swelling, redness, or edema. ENT: Nares patent. No nasal discharge, no septal abnormalities noted. Tympanic membranes are normal and external auditory canals are clear. Oropharynx with no redness, swelling, or masses, exudates, or evidence of obstruction, uvula midline. Mucous membranes moist. Neck: Trachea midline, no thyromegaly or masses palpated, and no cervical lymphadenopathy. Supple, full range of motion without nuchal rigidity, or vertebral point tenderness. No Meningismus. Chest/axilla: Normal chest wall appearance and motion. Nontender with no deformity. No lesions are appreciated. Cardiovascular: Regular rate and rhythm with a normal S1 and S2. No gallops, murmurs, or rubs. Normal PMI, no JVD. No pulse deficits. Respiratory: Lungs have equal breath sounds bilaterally, clear to auscultation and percussion. No rales, rhonchi or wheezes noted. No increased work of breathing, no retractions or nasal flaring. Back: No spinal tenderness. No costovertebral tenderness. Full range of motion. Female : Normal external genitalia. Skin: Warm, dry with normal turgor. Normal color with no rashes, no lesions, and no evidence of cellulitis. MS/ Extremity: Pulses equal, no cyanosis. Neurovascular intact. Full, normal range of motion. Neuro: Awake and alert, GCS 15, oriented to person, place, time, and situation. Cranial nerves II-XII grossly intact. Motor strength 5/5 in all extremities. Sensory grossly intact. Cerebellar exam normal. Normal gait. Psych: Awake, alert, with orientation to person, place and time. Behavior, mood, and affect are within normal limits. 08:44 Abdomen/GI: Inspection: abdomen appears normal, Bowel sounds: normal, Palpation: mild abdominal tenderness, in all quadrants, Liver: no appreciated palpable abnormalities, Hernia: not appreciated. Vital Signs: 07:42 BP 142 / 104; Pulse 71; Resp 17; Temp 98(O); Pulse Ox 99% ; Weight 52.16 kg (R); Height tw2 5 ft. 1 in. (154.94 cm); Pain 7/10; 08:16 BP 138 / 92; Pulse 76; Resp 17; Pulse Ox 97% on R/A; tw2 09:28 BP 128 / 96; Pulse 68; Resp 17; Pulse Ox 100% on R/A; tw2 10:30 BP 118 / 89; Pulse 77; Resp 17; Pulse Ox 100% on R/A; tw2 07:42 Body Mass Index 21.73 (52.16 kg, 154.94 cm) tw2 MDM: 07:40 Patient medically screened. trevor 08:47 Differential diagnosis: hypertensive crisis, Malignant HTN, bowel obstruction, trevor diverticulitis, gastritis, gastroesophageal reflux disease, non-specific abd pain. Data reviewed: vital signs, nurses notes. Data interpreted: property assessment monitor: rate is 76 beats/min, rhythm is regular, Pulse oximetry: on room air is 97 %. Test interpretation: by ED physician or midlevel provider:. Counseling: I had a detailed discussion with the patient and/or guardian regarding: the historical points, exam findings, and any diagnostic results supporting the discharge/admit diagnosis, lab results, radiology results, the need for outpatient follow up, for definitive care, a family practitioner, an human resources talent manager. 06/08 07:58 Order name: Basic Metabolic Panel tw2 06/08 07:58 Order name: CBC with Diff; Complete Time: 08:40 tw2 06/08 07:58 Order name: Hepatic Function; Complete Time: 08:41 tw2 06/08 07:58 Order name: Lipase; Complete Time: 08:41 tw2 06/08 07:59 Order name: Basic Metabolic Panel; Complete Time: 08:41 EDMS 06/08 08:41 Order name: CT Abd/Pelvis - Without Contrast; Complete Time: 10:14 trevor 06/08 07:58 Order name: IV Saline Lock; Complete Time: 08:16 tw2 06/08 07:58 Order name: Labs collected and sent; Complete Time: 08:16 tw2 Administered Medications: 09:06 Drug: Lactulose 30 grams Volume: 45 ml; Route: PO; tw2 10:21 Follow up: Response: No adverse reaction tw2 10:27 Drug: Dulcolax (bisacodyl) Suppository 10 mg Route: [place]; tw2 10:45 Follow up: Response: No adverse reaction tw2 Disposition Summary: 06/08/21 10:16 Discharge Ordered Location: Home trevor Problem: new trevor Symptoms: have improved trevor Condition: Stable trevor Diagnosis - End stage renal disease - on HD T, , Tue trevor - Abdominal pain, unspecified trevor - Constipation trevor - Essential (primary) hypertension trevor Followup: trevor - With: Private Physician - When: 2 - 3 days - Reason: Recheck today's complaints, Continuance of care, Re-evaluation by your physician Followup: trevor - With: - When: 1 - 2 days - Reason: Recheck today's complaints, Continuance of care, Re-evaluation by your physician Followup: trevor - With: Arik Jones MD - When: 2 - 3 days - Reason: Recheck today's complaints, Re-evaluation by your physician Discharge Instructions: - Discharge Summary Sheet trevor - Abdominal Pain, Adult trevor - Constipation, Adult trevor - Hypertension, Adult trevor - Constipation, Adult, [id number] trevor - Dialysis trevor - Hypertension, Adult, [id number] trevor - How to Take Your Blood Pressure, [id number] trevor - Managing Your Hypertension trevor Forms: - Medication Reconciliation Form trevor - Thank You Letter trevor - Antibiotic Education trevor - Prescription Opioid Use trevor Prescriptions: - Lactulose 10 gram/15 mL Oral Solution - take 30 milliliters by ORAL route once daily; 200 milliliter; Refills: 0, [facility] Product Selection Permitted - dicyclomine 20 mg Oral Tablet - take 1 tablet by ORAL route 4 times per day; 28 tablet; Refills: 0, Product trevor Selection Permitted - Dulcolax (bisacodyl) 10 mg Rectal suppository - insert 1 suppository by RECTAL route once daily; 10 suppository; Refills: 0, [facility] Product Selection Permitted Signatures: Dispatcher [employer] Javon Pettit MD MD cha Wise, Tara RN RN tw2
[2021-06-08] MEDS ORDERED: BISACODYL 10 MG RECTAL SUPP ONE (10:23)
[2021-06-08 11:13] VITALS: TEMP 98
[2021-06-08 11:23] VITALS: BP 128/96; O2SAT 100
== END 2021-06-08 10:46 | disposition home or self-care (01) ==
LOC: ER 07:26
DX: K59.00 Constipation, unspecified (principal); I12.0 Hypertensive chronic kidney disease with stage 5 chronic kidney disease or end stage renal disease; N18.6 End stage renal disease; Z99.2 Dependence on renal dialysis
CPT/HCPCS: 36415; 74176; 80048; 80076; 83690; 85025; 99284

== ENCOUNTER 2021-06-10 06:44 | Emergency (ER) | payer SELFPAY ==
--- OUTSIDE RECORDS SUMMARY | 2021-06-10 06:51 | XMS REPORT | Continuity of Care Document ---
:1990 Author Organization [facility] t Address [address] [place] [address] Care Team Providers Name Role Phone STEPHANIE [...] MD Attending Clinician Hernandez Rivas Attending Clinician Pau Sheets Attending Clinician John AGUIRRE Attending Clinician FLORY GALVEZ Admitting Clinician Unavailable Payers Payer Name Policy Type Policy Number Effective Date Expiration Date Mike SAEZ [id number] 2017 00:00:00 Problems Condition Condition Condition Status Onset Resolution Last Treating Co mments Source Name Details Category Date Date Treatment Clinician Date Malignant Malignant Disease Active 2020-[address] [facility] hypertensi hypertensi -08 I[place] kes - on on 00:00: Medical [...] Univers 2-24 ity of section section 00:00: [place] [address] Medical Branch Chronic Chronic Disease Active 2017-07 Univers hypertensi hypertensi 2-19 it y of on with on with 00:00: [place] superimpos superimpos 00 Me dical ed ed Branch preeclamps preeclamps ia ia 34 weeks 34 weeks Disease Active 2017-07 Unive rs gestation gestation 2-17 ity of of of 00:00: [place] 00 [facility] Branch Obesity Obesity Disease Active 2017-07 Univers (BMI (BMI 2-11 ity of 30-39.9) 30-39.9) 00:00: [place] [address] Medical Branch 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-07 Unive rs Pap smear Pap smear 1-27 ity of of cerv[place] Persistent Persistent Disease Active 2018 U nivers proteinuri proteinuri 8-06 it y of a a 00:00: [place] [address] Medical Branch Asymptomat Asymptomat Disease Active 2018 U nivers ic ic 8-06 ity of microscopi microscopi [place] 00 Medical hematuria hematuria Bran ch Asymptomat Asymptomat Disease Active U nivers ic ic 8-06 ity of microscopi microscopi [place] Medical hematuria hematuria Bran ch Essential Essential Disease Active Uni vers hypertensi hypertensi 1-11 it y of on on 00:00: [place] [address] Medical Branch Seizure Seizure Disease Active Univers disorder disorder ity of [facility] [place] History of History of Disease Active U nivers migraine migraine ity of headaches headaches [facility] ESRD (end ESRD (end Disease Active [facility] - renal renal Medical disease) disease) Center on on dialysis dialysis Allergies, Adverse Reactions, Alerts Allergy Allergy Status Severity Reaction(s) Onset Inactive Treating Comm ents Source Name Type Date Date Clinician NO KNOWN Drug Active [facility] Active [facility] Social History Social Habit Start Date Stop Date Quantity Comments Source Exposure to Not sure [facility] SARS-CoV-2 [place] Medical (event) Branch Alcohol intake 2020-01-23 2020-01-23 Current [facility] 00:00:00 00:00:00 non-drinker of [facility] alcohol [place] (finding) Tobacco use and 2020-01-23 2020-01-23 Never used Universit y of exposure 00:00:00 00:00:00 [facility] Sex Assigned At [address] Ivet kes - 00:00:00 00:00:00 [facility] Smoking Status Start Date Stop Date Source Never smoker [facility] Medications Ordered Filled Start Stop Current Ordering Indication Dosage Frequency Signature Comments Components Source Medication Medication Date Date Medication? Clinician (SIG) Name Name labetaloL 2020-07 Yes 100mg Q.5D Take [address] [address] (NORMODYNE) 1-16 mg by [facility] - 100 MG 16:48: mouth 2 Medical tablet 39 (two) Center times daily. lisinopriL 0 Yes [id number] 40mg Take 1 U nivers 40 mg 9-28 tablet by ity of tablet 00:00: mouth [place] 00 daily. Medical Branch hydroCHLORO 2019-0 Yes [id number] 25mg Take 1 Univers thiazide 25 9-28 tablet by ity of mg tablet 00:00: mouth [place] 00 daily. Medical Branch amLODIPine 2019-0 Yes [id number] 10mg Take 1 U nivers 10 mg 9-28 tablet by ity of tablet 00:00: mouth [place] 00 daily. Medical Branch lisinopriL 2019-0 Yes [id number] 40mg Take 1 U nivers 40 mg 9-28 tablet by ity of tablet 00:00: mouth [place] 00 daily. Medical Branch hydroCHLORO 2019-0 Yes [id number] 25mg Take 1 Univers thiazide 25 9-28 tablet by ity of mg tablet 00:00: mouth [place] 00 daily. Medical Branch amLODIPine 2020-0 Yes [id number] 10mg Take 1 U nivers 10 mg 9-28 tablet by ity of tablet 00:00: mouth [place] 00 daily. Medical Branch lisinopriL 2020-0 Yes [id number] 40mg Take 1 U nivers 40 mg 9-28 tablet by ity of tablet 00:00: mouth [place] 00 daily. Medical Branch hydroCHLORO 2020-0 Yes [id number] 25mg Take 1 Univers thiazide 25 9-28 tablet by ity of mg tablet 00:00: mouth [place] 00 daily. Medical Branch amLODIPine 2020-0 Yes [id number] 10mg Take 1 U nivers 10 mg 9-28 tablet by ity of tablet 00:00: mouth [place] 00 daily. Medical Branch lisinopriL 2020-0 Yes [id number] 40mg Take 1 U nivers 40 mg 9-28 tablet by ity of tablet 00:00: mouth [place] 00 daily. Medical Branch hydroCHLORO 2020-0 Yes [id number] 25mg Take 1 Univers thiazide 25 9-28 tablet by ity of mg tablet 00:00: mouth [place] 00 daily. Medical Branch amLODIPine 2020-0 Yes [id number] 10mg Take 1 U nivers 10 mg 9-28 tablet by ity of tablet 00:00: mouth [place] 00 daily. Medical Branch albuterol 2020-0 Yes [id number] 2{puff} Inhale 2 Univers 90 7-22 Puffs ity of mcg/actuati 00:00: every 6 [place] as on inhaler 00 (six) Medical hours as Branch needed for Wheezing or Shortness of Breath. albuterol 2020-0 Yes [id number] 2{puff} Inhale 2 Univers 90 7-22 Puffs ity of mcg/actuati 00:00: every 6 [place] on inhaler 00 (six) Medical hours as Branch needed for Wheezing or Shortness of Breath. albuterol 2020-0 Yes [id number] 2{puff} Inhale 2 Univers 90 7-22 Puffs ity of mcg/actuati 00:00: every 6 [place] on inhaler 00 (six) Medical hours as Branch needed for Wheezing or Shortness of Breath. albuterol 2019-0 Yes [id number] 2{puff} Inhale 2 Univers 90 7-22 Puffs ity of mcg/actuati 00:00: every 6 [place] on inhaler 00 (six) Medical hours as Branch needed for Wheezing or Shortness of Breath. albuterol 2019-0 Yes [id number] 2{puff} Inhale 2 Univers 90 7-22 Puffs ity of mcg/actuati 00:00: every 6 [place] on inhaler 00 (six) Medical hours as Branch needed for Wheezing or Shortness of Breath. albuterol 2019-0 Yes [id number] 2{puff} Inhale 2 Univers 90 7-22 Puffs ity of mcg/actuati 00:00: every 6 [place] on inhaler 00 (six) Medical hours as Branch needed for Wheezing or Shortness of Breath. lisinopril Yes [id number] 20mg Take 1 U nivers 20 mg 5-14 tablet by ity of tablet 00:00: mouth [place] 00 daily. Medical Branch lisinopril 2019-0 Yes [id number] 20mg Take 1 U nivers 20 mg 5-14 tablet by ity of tablet 00:00: mouth [place] 00 daily. [facility] lisinopril 2019-0 Yes [id number] 20mg Take 1 U nivers 20 mg 5-14 tablet by ity of tablet 00:00: mouth [place] 00 daily. [facility] lisinopril 2020- No [id number] 20mg Take 1 Univers 20 mg 5-14 -28 tablet by ity of tablet 00:00: 00:00 mouth [place] 00 :00 daily. [facility] Branch diazePAM 2019- No 10mg 10 mg, [...] 11/02/19 at Branch tablet 1745, DALE ketorolac 2019- No 30mg 30 mg, Unive rs (TORADOL) 11-01 Intramuscu ity of injection 22:45: 22:20 [place], ONCE, [place] 30 mg 00 :00 1 dose, Medical 11/02/19 Branch at 1745, DALE
[facility] approving Restricted medication : JETHRO SCHAEFFER traMADol 50 2020-0 Yes [id number] 50mg Take 1 Univers mg tablet 5-01 tablet by ity o f 00:00: mouth [place] 00 every 6 Medical (six) Branch hours as needed for Pain (scale 7-10). ketorolac 2020-0 Yes [id number] 10mg Take 1 Un davi 10 mg 5-01 tablet by ity of tablet 00:00: mouth [place] 00 every 6 Medical (six) Branch hours as needed for Pain (scale 7-10). cyclobenzap 2020-0 Yes [id number] 5mg Take 1 Univers rine 5 mg 5-01 tablet by ity o f tablet 00:00: mouth 3 [place] 00 (three) Medical times Branch daily as needed for Muscle Spasms. lidocaine 5 2020-0 Yes [id number] 1{patch Apply 1 Univers % (700 5-01 } Patch to ity of mg/patch) 00:00: area(s) [place] patch 00 every 12 Medical (twelve) Branch hours as needed for Localized pain. traMADol 50 2020-0 Yes [id number] 50mg Take 1 Univers mg tablet 5-01 tablet by ity o f 00:00: mouth [place] 00 every 6 Medical (six) Branch hours as needed for Pain (scale 7-10). ketorolac 2020-0 Yes [id number] 10mg Take 1 Un davi 10 mg 5-01 tablet by ity of tablet 00:00: mouth [place] 00 every 6 Medical (six) Branch hours as needed for Pain (scale 7-10). cyclobenzap 2020-0 Yes [id number] 5mg Take 1 Univers rine 5 mg 5-01 tablet by ity o f tablet 00:00: mouth 3 [place] 00 (three) Medical times Branch daily as needed for Muscle Spasms. lidocaine 5 2020-0 Yes [id number] 1{patch Apply 1 Univers % (700 5-01 } Patch to ity of mg/patch) 00:00: area(s) [place] patch 00 every 12 Medical (twelve) Branch hours as needed for Localized pain. traMADol 50 2020-0 Yes [id number] 50mg Take 1 Univers mg tablet 5-01 tablet by ity o f 00:00: mouth [place] 00 every 6 Medical (six) Branch hours as needed for Pain (scale 7-10). ketorolac 2020-0 Yes [id number] 10mg Take 1 Un davi 10 mg 5-01 tablet by ity of tablet 00:00: mouth [place] 00 every 6 Medical (six) Branch hours as needed for Pain (scale 7-10). cyclobenzap 2020-0 Yes [id number] 5mg Take 1 Univers rine 5 mg 5-01 tablet by ity o f tablet 00:00: mouth 3 [place] 00 (three) Medical times Branch daily as needed for Muscle Spasms. lidocaine 5 2020-0 Yes [id number] 1{patch Apply 1 Univers % (700 5-01 } Patch to ity of mg/patch) 00:00: area(s) [place] patch 00 every 12 Medical (twelve) Branch hours as needed for Localized pain. traMADol 50 2020-0 Yes [id number] 50mg Take 1 Univers mg tablet 5-01 tablet by ity o f 00:00: mouth [place] 00 every 6 Medical (six) Branch hours as needed for Pain (scale 7-10). ketorolac 2020-0 Yes [id number] 10mg Take 1 Un davi 10 mg 5-01 tablet by ity of tablet 00:00: mouth [place] 00 every 6 Medical (six) Branch hours as needed for Pain (scale 7-10). cyclobenzap 2020-0 Yes [id number] 5mg Take 1 Univers rine 5 mg 5-01 tablet by ity o f tablet 00:00: mouth 3 [place] 00 (three) Medical times Branch daily as needed for Muscle Spasms. lidocaine 5 2020-0 Yes [id number] 1{patch Apply 1 Univers % (700 5-01 } Patch to ity of mg/patch) 00:00: area(s) [place] patch 00 every 12 Medical (twelve) Branch hours as needed for Localized pain. traMADol 50 2020-0 Yes [id number] 50mg Take 1 Univers mg tablet 5-01 tablet by ity o f 00:00: mouth [place] 00 every 6 Medical (six) Branch hours as needed for Pain (scale 7-10). ketorolac 2020-0 Yes [id number] 10mg Take 1 Un davi 10 mg 5-01 tablet by ity of tablet 00:00: mouth [place] 00 every 6 Medical (six) Branch hours as needed for Pain (scale 7-10). cyclobenzap 2020-0 Yes [id number] 5mg Take 1 Univers rine 5 mg 5-01 tablet by ity o f tablet 00:00: mouth 3 [place] 00 (three) Medical times Branch daily as needed for Muscle Spasms. lidocaine 5 2020-0 Yes [id number] 1{patch Apply 1 Univers % (700 5-01 } Patch to ity of mg/patch) 00:00: area(s) [place] patch 00 every 12 Medical (twelve) Branch hours as needed for Localized pain. traMADol 50 2020-0 Yes [id number] 50mg Take 1 Univers mg tablet 5-01 tablet by ity o f 00:00: mouth [place] 00 every 6 Medical (six) Branch hours as needed for Pain (scale 7-10). ketorolac 2020-0 Yes [id number] 10mg Take 1 Un davi 10 mg 5-01 tablet by ity of tablet 00:00: mouth [place] 00 every 6 Medical (six) Branch hours as needed for Pain (scale 7-10). cyclobenzap 2020-0 Yes [id number] 5mg Take 1 Univers rine 5 mg 5-01 tablet by ity o f tablet 00:00: mouth 3 [place] 00 (three) Medical times Branch daily as needed for Muscle Spasms. lidocaine 5 2020-0 Yes [id number] 1{patch Apply 1 Univers % (700 5-01 } Patch to ity of mg/patch) 00:00: area(s) [place] patch 00 every 12 Medical (twelve) Branch hours as needed for Localized pain. traMADol 50 2020-0 Yes [id number] 50mg Take 1 Univers mg tablet 5-01 tablet by ity o f 00:00: mouth [place] 00 every 6 Medical (six) Branch hours as needed for Pain (scale 7-10). ketorolac 2020-0 Yes [id number] 10mg Take 1 Un davi 10 mg 5-01 tablet by ity of tablet 00:00: mouth [place] 00 every 6 Medical (six) Branch hours as needed for Pain (scale 7-10). cyclobenzap 2020-0 Yes [id number] 5mg Take 1 Univers rine 5 mg 5-01 tablet by ity o f tablet 00:00: mouth 3 [place] 00 (three) Medical times Branch daily as needed for Muscle Spasms. lidocaine 5 2020-0 Yes [id number] 1{patch Apply 1 Univers % (700 5-01 } Patch to ity of mg/patch) 00:00: area(s) [place] patch 00 every 12 Medical (twelve) Branch hours as needed for Localized pain. traMADol 50 2020-0 Yes [id number] 50mg Take 1 Univers mg tablet 5-01 tablet by ity o f 00:00: mouth [place] 00 every 6 Medical (six) Branch hours as needed for Pain (scale 7-10). ketorolac 2020-0 Yes [id number] 10mg Take 1 Un davi 10 mg 5-01 tablet by ity of tablet 00:00: mouth [place] 00 every 6 Medical (six) Branch hours as needed for Pain (scale 7-10). cyclobenzap 2020-0 Yes [id number] 5mg Take 1 Univers rine 5 mg 5-01 tablet by ity o f tablet 00:00: mouth 3 [place] 00 (three) Medical times Branch daily as needed for Muscle Spasms. lidocaine 5 2020-0 Yes [id number] 1{patch Apply 1 Univers % (700 5-01 } Patch to ity of mg/patch) 00:00: area(s) [place] patch 00 every 12 Medical (twelve) Branch hours as needed for Localized pain. traMADol 50 2020-0 Yes [id number] 50mg Take 1 Univers mg tablet 5-01 tablet by ity o f 00:00: mouth [place] 00 every 6 Medical (six) Branch hours as needed for Pain (scale 7-10). ketorolac 2020-0 Yes [id number] 10mg Take 1 Un davi 10 mg 5-01 tablet by ity of tablet 00:00: mouth [place] 00 every 6 Medical (six) Branch hours as needed for Pain (scale 7-10). cyclobenzap 2020-0 Yes [id number] 5mg Take 1 Univers rine 5 mg 5-01 tablet by ity o f tablet 00:00: mouth 3 [place] 00 (three) Medical times Branch daily as needed for Muscle Spasms. lidocaine 5 2020-0 Yes [id number] 1{patch Apply 1 Univers % (700 5-01 } Patch to ity of mg/patch) 00:00: area(s) [place] patch 00 every 12 Medical (twelve) Branch hours as needed for Localized pain. traMADol 50 2020-0 Yes [id number] 50mg Take 1 Univers mg tablet 5-01 tablet by ity o f 00:00: mouth [place] 00 every 6 Medical (six) Branch hours as needed for Pain (scale 7-10). ketorolac 2019-0 Yes [id number] 10mg Take 1 Un davi 10 mg 5-01 tablet by ity of tablet 00:00: mouth [place] 00 every 6 Medical (six) Branch hours as needed for Pain (scale 7-10). cyclobenzap 2019-0 Yes [id number] 5mg Take 1 Univers rine 5 mg 5-01 tablet by ity o f tablet 00:00: mouth 3 [place] 00 (three) Medical times Branch daily as needed for Muscle Spasms. lidocaine 5 2019-0 Yes [id number] 1{patch Apply 1 Univers % (700 5-01 } Patch to ity of mg/patch) 00:00: area(s) [place] patch 00 every 12 Medical (twelve) Branch hours as needed for Localized pain. predniSONE 2020- No [id number] 40mg Take 2 Univers 20 mg 5-01 05-06 tablets by ity of tablet 00:00: 04:59 mouth [place] 00 :00 every Medical morning Branch for 4 days. chlorthalid 2018-07 Yes [id number] 25mg Take 1 Univers one 25 mg 1-11 tablet by ity o f tablet 00:00: mouth [place] 00 daily. Medical Branch chlorthalid 2018-07 Yes [id number] 25mg Take 1 Univers one 25 mg 1-11 tablet by ity o f tablet 00:00: mouth [place] 00 daily. Medical Branch chlorthalid 2018-07 Yes [id number] 25mg Take 1 Univers one 25 mg 1-11 tablet by ity o f tablet 00:00: mouth [place] 00 daily. Medical Branch chlorthalid 2018-07 Yes [id number] 25mg Take 1 Univers one 25 mg 1-11 tablet by ity o f tablet 00:00: mouth [place] 00 daily. Medical Branch chlorthalid 2018-07 Yes [id number] 25mg Take 1 Univers one 25 mg 1-11 tablet by ity o f tablet 00:00: mouth [place] 00 daily. Medical Branch chlorthalid 2018-07 2020- No [id number] 25mg Take 1 Univers one 25 mg 1-11 09-28 tablet by ity of tablet 00:00: 00:00 mouth [place] 00 :00 daily. Medical Branch Immunizations Ordered Filled Immunization Date Status Comments [facility] Immunization Name Name Influenza Virus 2019-04-05 Completed Universit y of Vaccine Quad .5 mL 00:00:00 [facility] 6+ [place] Branch Influenza Virus 2019-04-05 Completed Universit y of Vaccine 00:00:00 [facility] Influenza Virus 2019-04-05 Completed Universit y of Vaccine Quad .5 mL 00:00:00 [facility] 6+ MO Branch Influenza Virus 2019-04-05 Completed Universit y of Vaccine 00:00:00 [facility] Influenza Virus 2019-04-05 Completed Universit y of Vaccine Quad .5 mL 00:00:00 [facility] 6+ [place] Branch Influenza Virus 2019-04-05 Completed Universit y of Vaccine 00:00:00 [facility] Influenza Virus 2019-04-05 Completed Universit y of Vaccine Quad .5 mL 00:00:00 [facility] 6+ [place] Influenza Virus 2019-04-05 Completed Universit y of Vaccine 00:00:00 [facility] Influenza Virus 2019-04-05 Completed Universit y of Vaccine Quad .5 mL 00:00:00 [facility] 6+ MO Branch Influenza Virus 2019-04-05 Completed Universit y of Vaccine 00:00:00 [facility] Influenza Virus 2019-04-05 Completed Universit y of Vaccine Quad .5 mL 00:00:00 [facility] 6+ MO [place] Influenza Virus 2019-04-05 Completed Universit y of Vaccine 00:00:00 [facility] Influenza Virus 2019-04-05 Completed Universit y of Vaccine Quad .5 mL 00:00:00 [facility] 6+ MO Branch Influenza Virus 2019-04-05 Completed Universit y of Vaccine 00:00:00 [facility] Influenza Virus 2019-04-05 Completed Universit y of Vaccine Quad .5 mL 00:00:00 [facility] 6+ MO Branch Influenza Virus 2019-04-05 Completed Universit y of Vaccine 00:00:00 [facility] Influenza Virus 2019-04-05 Completed Universit y of Vaccine Quad .5 mL 00:00:00 [facility] 6+ [place] Branch Influenza Virus 2019-04-05 Completed Universit y of Vaccine 00:00:00 [facility] Influenza Virus 2019-04-05 Completed Universit y of Vaccine Quad .5 mL 00:00:00 [facility] 6+ [place] Branch Influenza Virus 2019-04-05 Completed Universit y of Vaccine 00:00:00 [facility] Vital Signs Vital Name Observation Time Observation [...] 13:37:00 150 mm[Hg] Univer sity of pressure [place] [facility] Diastolic blood 2020-01-23 13:37:00 111 mm[Hg] Unive rsity of pressure [facility] Branch Heart rate 2020-01-23 13:36:00 77 /min Universi ty [facility] Body temperature 2020-01-23 13:36:00 36.78 Leigh Ann Univ ersity of [place] [facility] Respiratory rate 2020-01-23 13:36:00 16 /min Univ ersity of [facility] Branch Oxygen saturation in 2020-01-23 13:36:00 98 /min University of Arterial blood by [facility] Pulse oximetry Branch Systolic blood 2020-01-23 13:37:00 150 mm[Hg] Univer sity of pressure [facility] Branch Diastolic blood 2020-01-23 13:37:00 111 mm[Hg] Unive rsity of pressure [facility] Branch Heart rate 2020-01-23 13:36:00 77 /min Universi ty [facility] Body temperature 2020-01-23 13:36:00 36.78 Leigh Ann Univ ersity of [facility] Branch Respiratory rate 2020-01-23 13:36:00 16 /min Univ ersity of [facility] Branch Oxygen saturation in 2020-01-23 13:36:00 98 /min University of Arterial blood by [facility] Pulse oximetry Branch Systolic blood 2019-11-02 22:25:00 172 mm[Hg] Univer sity of pressure [place] [facility] Diastolic blood 2019-11-02 22:25:00 119 mm[Hg] Unive rsity of pressure [place] [facility] Heart rate 2019-11-02 22:25:00 71 /min Universi ty of [facility] Body temperature 2019-11-02 21:14:00 36.83 Leigh Ann [facility] Respiratory rate 2019-11-02 21:14:00 16 /min [facility] ersity of [facility] Body weight 2019-11-02 21:14:00 63.997 kg Universi ty of [facility] BMI 2019-11-02 21:14:00 26.66 kg/m2 Universi ty of [facility] Oxygen saturation in 2019-11-02 21:14:00 97 /min University of Arterial blood by [facility] Pulse oximetry Branch Systolic blood 2019-11-02 22:25:00 172 mm[Hg] Univer sity of pressure [facility] Diastolic blood 2019-11-02 22:25:00 119 mm[Hg] [facility] Heart rate 2019-11-02 22:25:00 71 /min Universi ty of [facility] Body temperature 2019-11-02 21:14:00 36.83 Leigh Ann [facility] rate 2019-11-02 21:14:00 16 /min [facility] ersity [facility] Body weight 2019-11-02 21:14:00 63.997 kg Universi ty of [facility] BMI 2019-11-02 21:14:00 26.66 kg/m2 Universi ty of [facility] Oxygen saturation in 2019-11-02 21:14:00 97 /min University of Arterial blood by [facility] Pulse oximetry Branch Systolic blood 2021-05-20 11:41:00 146 mm[Hg] [facility] Diastolic blood 2021-05-20 11:41:00 93 mm[Hg] [facility] Heart rate 2021-05-20 11:41:00 75 /min [facility] Body temperature 2021-05-20 11:41:[address] [facility] Respiratory rate 2021-05-20 11:41:00 18 /min [facility] Oxygen saturation in 2021-05-20 11:41:00 99 /min [facility] - Arterial blood by Medical Ce nter Pulse oximetry Body weight 2021-05-19 15:15:00 56.1 kg [facility] BMI 2021-05-19 15:15:00 23.37 kg/m2 [facility] Body height 2021-05-11 15:42:00 154.9 cm [facility] Procedures Procedure Date / Time Performing Clinician Source Performed BASIC METABOLIC PANEL 2021-05-20 04:42:00 Vaibhav Law [place] [id number]) [facility] IR TUNNELED CATHETER 2021-05-19 10:58:00 Anastacia Raygoza [facility] SCREEN, URINE 2021-05-19 09:42:00 Jessica Hickman [facility] HEMODIALYSIS INPATIENT 2021-05-19 08:57:33 Anastacia Raygoza [facility] BASIC METABOLIC PANEL 2021-05-19 03:57:[address] BASIC METABOLIC PANEL 2021-05-18 05:26:00 Vaibhav Law [place] [id number]) [facility] HEMODIALYSIS INPATIENT 2021-05-16 13:24:13 Anastacia Raygoza [facility] CBC W/PLT COUNT & AUTO 2021-05-16 05:23:[address] [facility] BASIC METABOLIC PANEL 2021-05-16 05:23:00 Ajit Nash [address] CBC W/PLT COUNT & AUTO 2021-05-16 05:23:[address] [facility] HEMOGLOBIN AND 2021-05-15 21:46:00 Anastacia Raygoza [facility] US RENAL BIOPSY 2021-05-15 15:20:00 Benigno Roe [facility] TISSUE EXAM 2021-05-15 15:03:00 Ajit Nash [facility] CBC W/PLT COUNT & AUTO 2021-05-15 04:41:[address] [facility] BASIC METABOLIC PANEL 2021-05-15 04:41:[address] PROTHROMBIN TIME/INR 2021-05-15 04:41:00 Anastacia Raygoza [facility] CBC W/PLT COUNT & AUTO 2021-05-15 04:41[facility] 2021-05-14 11:57:00 Jaret Anastacia [facility] CBC W/PLT COUNT & AUTO 2021-05-14 04:34:00 Saad [facility] BASIC METABOLIC PANEL 2021-05-14 04:34[facility] CBC W/PLT COUNT & AUTO 2021-05-14 04:34:00 Saad [facility] CALCIUM, IONIZED 2021-05-13 04:14:00 [facility] COMPREHENSIVE METABOLIC 2021-05-13 04:14:00 [facility] MAGNESIUM 2021-05-13 04:14:00 [facility] PHOSPHORUS 2021-05-13 04:14:00 [facility] CBC W/PLT COUNT & AUTO 2021-05-13 04:14:00 [facility] VITAMIN D, 25-HYDROXY 2021-05-13 04:14:00 [facility] CBC W/PLT COUNT & AUTO 2021-05-13 04:14:00 [facility] CT BRAIN WITHOUT IV 2021-05-12 21:53:00 [facility] METANEPHRINES 2021-05-12 05:54:00 Jaret Anastacia [facility] CBC W/PLT COUNT & AUTO 2021-05-12 05:53:00 Saad [facility] BASIC METABOLIC PANEL 2021-05-12 05:53:00 Ajit Nash [address] RENIN, PLASMA 2021-05-12 05:53:00 Jaret Anastaciaolivia [facility] ALDOSTERONE 2021-05-12 05:53:00 [facility] CORTISOL 2021-05-12 05:53:00 Jaret [facility] CBC W/PLT COUNT & AUTO 2021-05-12 05:53:[address] [facility] ECG 12-LEAD 2021-05-11 10:34:27 Sridhar Nashburt Mariano [facility] ECG 12-LEAD 2021-05-11 10:34:27 Unknown, Hl7 Doctor [facility] URINALYSIS W/ 2021-05-11 10:07:[address] [facility] SCREEN, URINE 2021-05-11 10:07:00 Ajit Nash [facility] PROTEIN, RANDOM URINE 2021-05-11 05:00:00 Benigno Roe [facility] CREATININE, RANDOM URINE 2021-05-11 05:00:00 Benigno Roe [facility] EOSINOPHIL SMEAR, URINE 2021-05-11 05:00:00 Benigno Roe CH, [facility] SODIUM, RANDOM URINE 2021-05-11 05:00:00 Benigno Roe [facility] BASIC METABOLIC PANEL 2021-05-11 04:54:00 Jennyfer Galvez [address] HEPATIC FUNCTION PANEL 2021-05-11 04:54:00 Lyndsey Galvezjaniya [facility] PROTHROMBIN TIME/INR 2021-05-11 04:54:[address] [facility] MAGNESIUM 2021-05-11 04:54:[address] [facility] PHOSPHORUS 2021-05-11 04:54:[address] [facility] CBC W/PLT COUNT & AUTO 2021-05-11 04:54:00 Jennyfer Galvez [facility] PERIPHERAL BLOOD SMEAR - 2021-05-11 04:54:00 Mayelin Toth [facility] CBC W/PLT COUNT & AUTO 2021-05-11 04:54:00 [facility] HCG, QUANTITATIVE, 2021-05-10 04:52:00 Lyndsey Galvezjaniya [facility] COMPLEMENT COMPONENT C4 2021-05-10 04:52:00 Lenny [facility] HEPATITIS B PANEL 2021-05-10 04:52:00 LennyLyndseyFormerly [facility] HAPTOGLOBIN 2021-05-10 04:52:00 Lenny [facility] BASIC METABOLIC PANEL 2021-05-10 04:52:[address] HEPATIC FUNCTION PANEL 2021-05-10 04:52:00 Lenny [facility] PROTHROMBIN TIME/INR 2021-05-10 04:52:00 Lenny [facility] HEMOGLOBIN A1C 2021-05-10 04:52:00 Lenny [facility] MAGNESIUM 2021-05-10 04:52:00 Lenny [facility] PHOSPHORUS 2021-05-10 04:52:00 Lenny [facility] CBC W/PLT COUNT & AUTO 2021-05-10 04:52[facility] W/PLT COUNT & AUTO 2021-05-10 04:52:00 LennyJennyfer [facility] S t [facility] - DIFFERENTIAL [facility] ANTI-NUCLEAR ANTIBODY 2021-05-09 20:06:00 [facility] (YUM[facility] DOUBLE-STRANDED DNA 2021-05-09 20:06:00 Lenny Jennyfer [facility] - (DSDNA) ANTIBODY [facility] HEPATITIS PANEL, ACUTE 2021-05-09 20:06:00 [facility] VITAMIN B12 2021-05-09 20:06:00 Lenny [facility] IRON, TIBC, % SAT. 2021-05-09 20:06:00 Lenny Jennyfer [facility] (WITHOUT FERRITIN) [facility] F[facility]IN 2021-05-09 20:06:00 Lenny [facility] SARS-COV2/RT-PCR ([facility] & 2021-05-09 19:04:00 [facility] US RENAL COMPLETE 2021-05-09 18:22:00 Lyndsey [facility] BASIC METABOLIC PANEL 2021-05-09 16:04:00 [facility] (7) [facility] HEPATIC FUNCTION PANEL 2021-05-09 16:04:00 Lenny [facility] PROTHROMBIN TIME/INR 2021-05-09 16:04:00 Lenny [facility] MAGNESIUM 2021-05-09 16:04:00 Lenny [facility] PHOSPHORUS 2021-05-09 16:04:00 Lenny [facility] CBC W/PLT COUNT & AUTO 2021-05-09 16:04:00 Jennyfer Galvez [facility] S [facility] - DIFFERENTIAL [facility] PERIPHERAL BLOOD SMEAR - 2021-05-09 16:04:00 Jennyfer Galvez [facility] - PATHOLOGIST REVIEW [facility] LACTATE DEHYDROGENASE 2021-05-09 16:04:00 Jennyfer Galvez [facility] - (LDH) [facility] RETICULOCYTE COUNT 2021-05-09 16:04:00 Jennyfer Galvez [facility] - [facility] FIBRINOGEN 2021-05-09 16:04:00 [facility] FIBRIN SOLUBLE MONOMER 2021-05-09 16:04:00 [facility] S t [facility] TYPE AND SCREEN, 2021-05-09 16:04:00 Jennyfer Galvez [facility] s - AUTOMATED [facility] CBC W/PLT COUNT & AUTO 2021-05-09 16:04:00 Jennyfer Galvez [facility] S [facility] - DIFFERENTIAL [facility] (CELLAVISION MANUAL 2021-05-09 16:04:00 Jennyfer Galvez [facility] - DIFF) [facility] PERIPHERAL BLOOD SMEAR - 2021-05-09 14:47:00 [facility] ECG 12-LEAD 2021-05-09 14:20:57 Lyndsey [facility] ECG 12-LEAD 2021-05-09 14:20:57 Unknown, Hl7 Doctor [facility] XR CHEST 1 VIEW PORTABLE 2021-05-09 13:58:00 Jennyfer Galvez [facility] - / BEDSIDE [facility] ASSIGNMENT OF BENEFITS 2020-01-23 13:09:03 Doctor Unassigned, No [facility] Plan of Care Planned Activity Planned Date Details Comments Source Future Scheduled 2021-03-[address] [facility] - Test 00:00:00 (#1) [code = [facility] INFLUENZA VACCINE (#1)] Future Scheduled 2020-07-[address] [facility] - Test 00:00:00 (12+) [code = [facility] DEPRESSION SCREENING (12+)] Future Scheduled 2011-09-[address] [facility] - Test 00:00:00 malignant neoplasm of [facility] Center cervix (procedure) [code = 094981070] Future Scheduled [address] [facility] Test 00:00:00 (procedure) [code = [facility] 29077801] Future Scheduled 2009 DTAP/TDAP/TD VACCINES CH I [...] Type Clinicians Facility Department ID 2021-04-30 Emergency [facility] [id number] Univers 19:40:59 [facility] 2021-06-05 2021-06-05 Outpatient [facility] [id number] SLE 00:00:00 00:00:00 MONICA 2021-06-05 2021-06-05 Outpatient [facility] [id number] [facility] 00:00:00 00:00:00 MONICA 2021-05-09 2021-05-27 Inpatient [facility] Medical ICU 20 [id number] SLEH 12:43:00 13:15:00 CHELITA 2021-05-26 2021-05-26 Outpatient [facility] [id number] [facility] 00:00:00 00:00:00 [facility] 2021-05-18 2021-05-18 Outpatient [facility] [id number] SLEH 00:00:00 00:00:00 MONICA 2021-05-09 2021-05-09 Outpatient [facility] [id number] [facility] 00:00:00 23:59:00 [facility] 2021-05-09 2021-05-09 Orders [facility] [id number] 00:00:00 00:00:00 [facility] 2020-09-23 2020-09-23 Patient Cal RITRACEE 1.2.840.114 [id number] Univers 00:00:00 00:00:00 Outreach Zeke PRIMARY [id number] i ty of [id number] [phone] [place] dical [address] [place] [address] 2020-09-23 2020-09-23 Patient Cal RITRACEE 1.2.840.114 [id number] 00:00:00 00:00:00 Outreach Zeke PRIMARY [id number] [place] CARE 4.2.7.2.686 PAVILLION [phone] [facility] 2020-04-01 2020-04-01 Telephone Terri Bran [facility] 1.2.840.114 [id number] Univers 00:00:00 00:00:00 Perez [facility]ALTH [id number] it [id number] [phone] Med ica [place] [address] [place] [address] 2020-04-01 2020-04-01 Telephone Terri Bran [facility] 1.2.840.114 [id number] 00:00:00 00:00:00 [place] HEALTH [id number] FAMILY 4.2.7.2.686 MEDICINE [id number] 2020-03-31 2020-03-31 Outpatient R YINATERRI [facility] [id number] Univers 14:40:00 14:40:00 [id number] ity [facility] 2020-03-31 2020-03-31 Outpatient R TERRI BRAN [facility] [id number] Univers 14:40:00 14:40:00 ity [facility] 2020-03-31 2020-03-31 Telemedici YinaTerri [facility] 1.2.840.114 [id number] Univers 11:27:39 11:47:39 ne Visit [facility] [id number] i [place] [phone] Med ical [place] [address] [place] [address] 2020-03-31 2020-03-31 Telemedici Terri Bran [facility] 1.2.840.114 [id number] 11:27:39 11:47:39 ne Visit [facility] HEALTH [id number] FAMILY [id number] MEDICINE [phone] RICHA [address] [place] [address] 2020-03-31 2020-03-31 YINA Pulido 1.2.840.114 [id number] Univers 00:00:00 00:00:00 Triage Karolina YOSEPH [id number] it y of HOSPITAL 4.2.7.2.686 Damon as [phone] [address] 2020-03-31 2020-03-31 Telephone Terri Bran [facility] 1.2.840.114 [id number] Univers 00:00:00 00:00:00 [facility] [id number] [place] [id number] Med ica[address] 2020-03-31 2020-03-31 Telephone Terri Bran [facility] 1.2.840.114 [id number] 00:00:00 00:00:00 Perez HEALTH [id number] FAMILY 4.2.7.2.686 MEDICINE [id number] [address] 2020-03-31 2020-03-31 YINA Pulido 1.2.840.114 [id number] 00:00:00 00:00:00 Triage Karolina YOSEPH 350.1.13.10 HOSPITAL 4.2.7.2.686 [id number] 019 2020-02-04 2020-02-04 Outpatient R FABRICIO [facility] [id number] Univers 10:55:00 10:55:00 VIGNESH [facility] 2020-02-04 2020-02-04 [facility] [id number] Univers 10:55:00 10:55:00 VIGNESH [facility] 2020-01-23 2020-01-23 Outpatient R [facility] [id number] Univers 08:30:00 08:30:00 [id number] [facility] 2020-01-23 2020-01-23 Outpatient R [facility] [id number] Univers 08:30:00 08:30:00 ity [facility] 2020-01-23 2020-01-23 Urgent Benigno Ya [facility] 1.2.840.11 [id number] Univers 08:10:46 08:25:46 Care Yasmine Easley PRIMARY 350.1.13.10 it[place] [id number] [place] dical 042 [place] 2020-01-23 2020-01-23 Urgent Felton [facility] 1.2.840.114 [id number] 08:10:46 08:25:46 Care Benigno PRIMARY 350.1.13.10 CARE 4.2.7.2.686 PAVILLION [id number] [facility] 2020-01-23 2020-01-23 Orders Doctor YINA 1.2.840.114 [id number] Univers 00:00:00 00:00:00 Only Unassigned, YOSEPH 350.1.13.10 ity of [place] [facility] 4.2.7.2.686 Damon as [id number] [facility] 009 [place] 2020-01-23 2020-01-23 Orders Doctor YINA 1.2.840.114 [id number] 00:00:00 00:00:00 Only Unassigned, YOSEPH 350.1.13.10 [facility] 4.2.7.2.686 [id number] 009 2019-11-15 2019-11-15 Outpatient Enrique PAUL [facility] [id number] Univers 09:20:00 09:20:00 REINA [id number] ity [facility] 2019-11-15 2019-11-15 Outpatient Enrique PAUL [facility] [id number] Univers 09:20:00 09:20:00 REINA itfiordaliza [facility] 2019-11-15 2019-11-15 Telemchayito Paul [facility] 1.2.840.114 [id number] 07:51:23 08:11:23 ne Visit Reina [facility] 350.1.13.10 [facility] 4.2.7.2.686 [facility] [phone] [address] 2019-11-15 2019-11-15 Telemedicarianna Paul [facility] 1.2.840.[id number] [facility] 07:51:23 08:11:23 ne Visit Reina DWYER 350.1.13.10 i ty of [place] MEDICINE 4.2.7.2.686 Damon as CLINIC - [phone] [address] 2019-11-07 2019-11-07 Telephone [facility] 1.2.840.114 [id number] 00:00:00 00:00:00 Vignesh DWYER 350.1.13.10 MEDICINE 4.2.7.2.686 CLINIC - [id number] [address] 2019-11-07 2019-11-07 Telephone [facility] 1.2.840.114 [id number] Univers 00:00:00 00:00:00 Vignesh DWYER 350.1.13.10 it y of MEDICINE 4.2.7.2.686 [place] as CLINIC - [phone] [address] 2019-11-02 2019-11-02 Emergency Naeem Solares B [facility] 1.2.840 .114 [id number] 16:16:18 18:16:00 Solis Lopez [place] 350.1.13.10 4.2.7.2.686 [id number] [facility] 2019-11-02 2019-11-02 Emergency Naeem Solares B [place] 1.2.840 .114 [id number] Univers 16:16:18 18:16:00 [facility] 350.1.13.10 [place] [id number] [address] Results Test Description Test Time Test Comments [...] NOT 1092) ACCURATE CRE ATININE CLEARANCE IN IN EDICTING GLOMERULAR FILT RATION RATE. ESTIMATED GFR I S NOT APPLICABLE FOR DIALYSIS PATIENTS. Pest Control Worker ID - SITA [facility] W/PLT COUNT & AUTO [id number] 06:07:04 Test Item Value Reference Range Interpretation [...] (BEAKER) (test code = 2801) BASIC METABOLIC [id number] 05:46:48 Test Item Value Reference Range Interpretation [...] S NOT APPLICABLE FOR DIALYSIS PATIEN TS. Pest Control Worker ID - SITA [facility] W/PLT COUNT & AUTO [id number] 05:21:23 Test Item Value Reference Range Interpretation [...] (BEAKER) (test code = 2801) MISCELLANEOUS LAB [id number] 10:35:31 Test Item Value Reference Range Interpretation Comments SCAN RESULT (test code = see scanned result [id number]) see scanned resultSARS-COV2/RT-PCR ([facility])2021-05-24 11:24:11 Test Item Value Reference Range Interpretation Comments SARS-COV2/RT-PCR Negative Negative The SARS-Co V-2 target (test code = nucleic acids a re not [id number]) detected in thi s specimen. Negative result [...] revoked sooner. Fact Sheet for Healthcare Providers: https://www.[employer]/Documents/Xpert%20Xpress%20SARS%20CoV-2/Fact%20Sheets/302-9362%20SARS-COV -2%20HEALTHCARE%20PROVIDERS%20FACT%20SHEET.pdf Fact Sheet for Healthcare Patients: https://www.[employer]/Documents/Xpert %20Xpress%20SARS%20CoV-2/Fact%20Sheets/3023801%96HVDF-SHG-6%20PATIENT%20FACT%20 SHEET.pdfBASIC METABOLIC [id number] 07:35:50 Test Item Value Reference Range Interpretation [...] S NOT APPLICABLE FOR DIALYSIS PATIEN TS. Pest Control Worker ID - SITA [facility] W/PLT COUNT & AUTO [id number] 06:13:19 Test Item Value Reference Range Interpretation [...] (BEAKER) (test code = 2801) BASIC METABOLIC [id number] 06:57:04 Test Item Value Reference Range Interpretation [...] S NOT APPLICABLE FOR DIALYSIS PATIEN TS. Pest Control Worker ID - [place] [facility] W/PLT COUNT & AUTO [id number] 06:21:27 Test Item Value Reference Range Interpretation [...] = 2801) CBC W/PLT COUNT & AUTO [id number] 13:50:18 Test Item Value Reference Range Interpretation [...] (BEAKER) (test code = 2801) BASIC METABOLIC [id number] 13:20:37 Test Item Value Reference Range Interpretation [...] S NOT APPLICABLE FOR DIALYSIS PATIEN TS. Pest Control Worker ID - AAHAMIDBASI METABOLIC [id number] 10:57:00 Test Item Value Reference Range Interpretation [...] S NOT APPLICABLE FOR DIALYSIS PATIEN TS. Pest Control Worker ID - [id number] 10:56:21 Test Item Value Reference Range Interpretation Comments PHOSPHORUS (BEAKER) (test code = 5.3 mg/dL 2.3-4.7 H 604) Pest Control Worker ID - [id number] 10:56:20 Test Item Value Reference Range Interpretation Comments MAGNESIUM (BEAKER) (test code = 2.1 mg/dL 1.6-2.6 627) Pest Control Worker ID - AAHAMIDCBC W/PLT COUNT & AUTO [id number] 05:09:19 Test Item Value Reference Range Interpretation [...] (test code = 2801) ANG, TUNNELED CATHETER [id number] 13:35:00Reason for Central Line/PICC?->Need for hemodialysis accessReason for exam:->HD [facility] : 1990 Sex: FFINAL REPORT [...] Imelda Nava MDReport Verified Date/Time: 05/20/2021 13:35:01 [facility] Metabolic [id number] 06:54:58 Test Item Value Reference Range Interpretation Comments Sodium (test code = 139 meq/L 683-054 2319-2) Potassium (test code = 4.5 meq/L 3.5-5.1 2823-3) Chloride (test code = 102 meq/L 98-107 2075-0) CO2 (test code = 25 meq/L 22-29 2028-9) BUN (test code = 25 mg/dL 7-21 H 3094-0) Creatinine (test code 5.64 mg/dL 0.57-1.25 H = 2160-0) Glucose (test code = 77 mg/dL 70-105 2345-7) Calcium (test code = 8.8 mg/dL 8.4-10.2 44735-2) EGFR (test code = 9 mL/min/1.73 [place] [address]-4) NOT ACCURATE CREATININE CLEARANCE IN PREDICTING GLOMERULAR FILTRATION RATE . ESTIMATED GFR I S NOT APPLICABLE FOR DIALYSIS PATIENTS. KAREN (test code = KAREN) Pest Control Worker ID - SITA M Lab Interpretation Abnormal (test code = 15691-1) [facility] METABOLIC [id number] 06:54:58 Test Item Value Reference Range Interpretation [...] S NOT APPLICABLE FOR DIALYSIS PATIEN TS. Pest Control Worker ID - SITA [place] [id number] 17:03:06 Test Item Value Reference Range Interpretation Comments Case Report (test code Surgical Pathology = 104) Report Case: [id number] Authorizing Provider: Ajit Nash MD Collected: 05/15/2021 03:03 PM Ordering Location: [address] Received: 05/15/2021 04:09 PM Service Pathologist: Briana Jenkins MD Specimen: Renal DIAGNOSIS (test code = n9mjcNNlQLYdc5bbWTRomJ 3220) FuZzEwMzNcZnRuYmpcdWMx IHtccnRmMVxlcGljOTYwMV vetlZtPFBeeBRjR9Utpkwv UOslVF7qMC4tmRkotIJfqZ VgNWDyWvScj5pvy415kQWj e4ieWFQCtmqdtQx9mFixA1 1tw1E1RfcwW61usZQaONF9 OMEgUOVkiHLkXENhFKQ8MH JklBMuI7oiDSBwKJ8gonda LTemZDilWZQbsQG5UYInbO TsX1VnUYQrADieWSPcakc7 YlLbXy3miGJvuOpzNYzgPK RrSDBpAJyxTNHhCkMnJB4g A8hWHdKAUCVDISWJTXBMN6 WQEJ0LYCVUPOWJMI0JD1k8 XHBhclx+FG5xlvq+LSBHTE 9NRVJVTEFSIEFORCBWQVND HIcRGiJFILEEO0JUXMDMN7 1QQVRJQkxFIFdJVEggVEhS R41JR9OHAaMFPKMJB4HXG3 lPUEFUSFkuIFxwYXIgICAg XJ5iZe9XRJffWT3QOCTSO5 2ZQlTVUZQEMF9EMUHZQA9O K6qXIk3MTAAnLTZcjjl+XH 5cflx+HEFMPWXXD1sBVATY RUxZIDYwIFRPIDcwJSBJTl SWOjVPGJIRMPnzHorTCh5D ZUPcI0nUTTWBGXCLIGUAAB UVJp1TVHzsOOTvsvp+XH5c flx+LSBBUlRFUklBTCBBTk LvHWQMEKOPG8yTNeYXGgMH SNMTYAQTBQECX6WLWqJAAP DADSOBC6ODTI9FH1bAMWmL KGigNWxXM1sAYftOVq2cER Bhclx+SY0kzvv+LSBTRUUg O39JKHZGAL9pgMEnaJyzag XxHIpgc9SyBOuuPVErWK4r iYmhXHMkIC3lIALyD2dnlF 5liio6LaKpEDZzSwF6AHTh gsS6Nfw7TZZyUBpsp5aed0 MbHIArBVh5wYvrOnKwPANr o0tdyxBaQmCvXAStVYWsTK QbeQGpL742q0xyj5kqaaBr wJR2PSHdAKP7PXehrmGeau U3EBzfyKPzCwJ9XYdlfvKo LFvvkpMwmmQkVcw2YVBmF7 86EYZ9aMaqx4ldBSF3PCJd OYJrMyDkFj1usOSqP401ZY CzNXGBSCAfvKh4TWAghoIk acVlsWJNe693A773w4rtAY TnpcMcvAuGcmlfv7tpB203 XHBhcGVydzEyMjQwXHBhcG OlnHQ1HPKeLZ3xchhgZTyh VXbwWYFzdlB2WKOskFGuG0 OrWUUkMD6kvxqtOEY0WIgl AWHlWWQ6SgCsIEHsa7Tuop v3ZxIxqu8mii68IER9l6Nn oDleDAS9QCG3FkTsRk4dhT XnMZAiBZ3lJqOhjYWwDWEq qa79yOqaGGzkKIZ7CPJoel Hge2Xkp4sgUjGpdkFdR7ol L6PmQOTbAFCjEGRuPvNhme Kun7Irx4IflHZqcMw2i9ze NBBdJQOlbGqna4flTOG8NN RdtOCtY9kctP4sGIQtHJ1w bjccj6leWZzyDTfgBYOdpL U0yyO2TNUyzJVfS7ZmaI8q MRSuERrfTZDwviw4ZgFiBm 9vdGVyeTcyMFxzYmtwYWdl XHBnbmNvbnRccGduZGVjXH BsYWluXHBsYWluXGYwXGZz MjRccWxcbGFuZzEwMzNcaG ljaFxmMVxkYmNoXGYxXGxv E1orLpTaHwEtFlh2VGIdwS VuQPKoUzr5SDMxtEQwGXCK vHllxM7eAWFtzTfetH9xwD U1UGPcchMttRAFdK2wIAFU bY0wZtW6ZrPhAkL3NEY8DV hccGFyfX0= COMMENT (test code = m0kyfMMoWRHnbTL8ZpOiDS 8945) Gtn6uuk5XlyROwfICvNEzl nIMyeaTmak29qIO8sC86LY 1gVCVeJzS7LLHmwbZ6Gzy3 RAYdHGIyvLMcZ415p3gpl3 evrsOccTW4fGlrJZGhefud XcZ3YSofFOHubobyTWf9CN tiHYJnlFU4QNPwsUOyP8Cm NAZtIG3qhrq0NRJ3YXmkSR GcEdB2KDOfbMYdGKGcdOga CXgfs552NTZ9QpQhXWIwle RkyCpilZ6qMzXtSHDJvWIi eXiqaMGlvOdgih8sB16meE CjQM8nQKLeeEFvj1MzpYD6 aJGzmOMbUZM9oUXmhgDasc BbD43yb0gjuVHhkVM0qQJq GCGjch8yLt79kHPhhWneyj 6pehzrw9FgqSy2CtRALYRc LN54T0AhmCjntY0ieDPlMp OynFKpulCghgEpm70eXD0c BOCrLWXuO1qcjWUdtYJkRK LeKRItYTBqKPJsWA7icj3t SSKbbeJwkRH7cYekXcBpRT R1i5JtPgOJfEDex9NgvNHg aPbwueEjLHBmJLWek0IqZB 6GCTibh2ZqEVYZLLBraOiq dOCiqANOBFIeWJ5aAKReuS qjWQNcmz0hlSZuEJJgc63l tKL0VBj5STE1D4f2TTIeEc DJzNjfpXAkcFEfs6WsOHkg aRdnuoUevfNjgYpwHTB1YH QuIFxwYXJ9 CPT Code(s) (test code v0tafOQsLHSezJN5YtIlVT = 3357) Byd3wel6FzuYFmtMNzJRga rQXtghZaeo64xPK4qB83UL 0qTQRmHqY5VETrdcR8Wdo5 YONwGJNahQKtW522k4kfv9 hwibYgoHC9zOndTIHyyeje FpE0TRbeWJWjpfxhFJb9GD amVEBgvGS9GXBgjFRuE0Ni UIBaVP6qdbn4PWQ2MJkxME WvFzP6KLWtpDGqRXYiuKle WLdzh417AYO3WlCzFLUtpi QtsXiwrL0nUgXaXLW6YGEd YDwnVUegJOEuLSTsLGW9IH J2WbN0ILbhSRh4UoR4KHHo cn0= CLINICAL HISTORY (test a1kdfLVwFGQmlYC7XdHxUS code = 3356) Vpn6any0VvbFZuhXAdWPck sADegcJsjl71iIH7mX81EL 1lXBEtTtG4SUMoebH2Psm5 EXVpGHAhdOKwG754b5klq4 iqepKzmNF4jEuzUQWxzvjk LeK7TUhiZLJyebblGCz6KR ynKDJbiZV6QAThzGVtV5Yg KELsAH8mcbr5MPH8VHxdNF FdEiG6GBGttYOsKITaoXyj XHoqq441UXV3AwLwKRQofc BliJyhrX2tMfGjLFMGE6tz cGFyfQ== SPECIMEN SOURCE (test u0zpfKFyNOQlwEH7JuEaTF code = 3377) Bob7zth4HhkLJgzYEnXIjw uINsveIfxe58uOH2iA71RU 3aBBBzHmB7PZIpmoF6Ckb4 PHDxMPSicUZeR931u4iyp9 pvlbOkgBQ5eRavSAWjrxoc ItW8TGdnMSWjzeuiPNl2NQ eaAYOwrNS2OCOvlLLrA6Jt UYGxRN3hbvk6TOJ1YPbxAV AoFyQ4PQRxgYLmIWJrnAqf KGzug093IUK5WcTfXKPsjn PusRedwN8nAlFlXGYNIdGJ aWRuZXlccGFyfQ== GROSS DESCRIPTION (test x0edcFRiCTUrmCZ1JtAgAI code = 3366) Phw0fcm6BybNEcsJIgJVxh kNVhwcLete15sGB0tB10QL 4uSKVpXmY3FXZkcrW7Bwh7 WWAnXBJycXBtC010z9vjp0 aljpRraHJ4fSusEAMolslp DvC8EXuaQUPksddwDXc8CP rwBDZavUI3QRHphQKjK1Tf UCJpDJ6svkc5VDG3HAojGU FoZbE9EOMtzASsSSMlhVpg IPnmf252PIV9ZsWuFIGxfv YehMigqD7gRdYvGBZPLgJb VGhlIHNwZWNpbWVuIGlzIH EeQ8WztuBrBOwtQFHlK84p dGFpbmVycywgYWxsIGxhYm XrPFQyy3i5iSA0tJQldJG6 gJUtnLipDM6bpPWlIX9VGr MamsDeNOQiIHKqgN3mBT07 dKTfzs4fiGKkWGgkrvYsGz LaWPi2KMVvgG8xVw8lcHUk tK2eXSJoWYNmrSDhWTZnZn FroGgvf3FjNTJzatTxYPAs ckwyugmsFC3aWCUkycFqtU S0TXEjALRjBTDhBCJrgJYu iuJkDQ6swDjlx8vnI9vvgJ Kfl1IohDj9kDIaWXglHFTh nA0liT9lV6Sug5F9kNVjWI FbUXVjzvfrfX8hZCHyE6By dmVkIGluIHNhbGluZSBpcy ExCNAfCeCkyBYxMwZ2fNMs iGIrF53hHHP1kDZ1BOgoBL Nky8akrtKch7ScpI7lfM7n Xcp0n5Dkf9AppyElu0I8DU omja8wQYLsscjrvX2lVQDk Z4VknzCnCVfkWGGtDODyhb NdPdRuT62sfG8nnPXoO6Hj CHSmprNkn6C4PCEci2N5HP Mqk2OkVWPuQLXclAJyf7Qj jIM0drK3yWYcIA3hqMSuLP CthtQkjUK2jXQpGSDbw1Gj n2QjhijsFVEfqhjlIKRbCQ ZccGFyfQ== MICROSCOPIC DESCRIPTION p6cckTVbUFTdgQE8WtZyNV (test code = 3371) Mdc5mmw8EstJMouLXmFXrj wUKnkoNqbl37hRX8hQ18AM 7vCIYpHyA1ZWQzzdJ7Vhn6 AXSoNMIpdKKtR550u7dox1 cnwlYyiCZ1kMfxIRWixuoz GdH2XKnoTIVhfllhJIr6RR tzDONssDE1VYScuYQcU6Jh XHKiYN6hnsz5CLJ0UTokIA JrJiE3PTFiwSRiWUCkmWwg KCjwy671FWM7TzRnOXDvrt UxrNricG3qErKsTPXAKUvT DYSTKHASP6AQS2KXQyXrqH QqIUPtchBPDWO2kR0zoxZc pR46LLUqC48xJJCqk1Fhom ElVPrvU29hcIB1SZymNVGx GDCjQVUuBIU7jTuvAaSfTP bfWUHrbKVxEQfrb63rvhDt tCvwZQMzdp53rC1kjIBxaF IqWBDfeY4xLJY0dCoqGPRj SOC5CD1jbkHmXYIjLuO4uF awmCU6OSWkTPCleE3eZIN1 iXCaZMygMMzbv8OvhTe4FC JwaLIra4EsHh5iQ33jGAmj o35eshDwdYQihGAiFZSxF3 3mqsYosKEwX8vpbb3rfQNi GYNeHSGjVV6jrU6mkvuaL2 xvbWVydWxpIGhhdmUgZXhw HG1dGNZjjFJvAR6jrQKmRV 7gmSJusNDwlfUlgXCuSB3b bMOaPWf8hYCqO0AswGRsQG IkvNdwQSOhveQkSvX2uEPz O8jvaGCdeBskYYwvhpUxf4 VnbWVudGFsIFJCQyBmcmFn kACseGAtSA4pEZEwuB8iVM J7gKSfQCctduGnz65mRGL2 VWBbL3SnbHkcQCSbLRZvJP 1lRYWugBMnVXIqx562s3Fc smEpetXralJrJ3GlpZNra0 AkFUVchC0xtHNaoNbtj54i kHDfvpIue1Xlxz6lwUOeLO TopdDBuBM8aNHnTCJrKEHs khJkobU5oTMagT65YQHiJE GzJArkHFQyu8E6SXLdPFM2 MAQxfQT0T1i4YIqynNNfy6 QwaRxorYWcpUOzp0AdhsP6 wWIcZJQ4TmZkCUGsKPUge0 XujNNzjmJoZZXkj3NrXIXq ZCBjaHJvbmljIGluZmxhbW 6ahGstmy8sYh1adEctkYKf ex1lkZInRKCiFWRqZVLiM8 XetJnirFVcc4DaqATzeoE5 fFMvsL53PSMkuFv6eCCgMv BUaGUgcHJveGltYWwgdHVi nKertmJpwvNuKt9fTLqeqY BdD4ZlkZgyMWsbpDlkgH9u bmFpbGVkIGVwaXRoZWxpdW 3tIDwbBTYggYSpGWGej0Fm eYA3ELqbfFUrdX4ceUcszg BhcnRlcmllcyBoYXZlIGZv D3RvkYsyv6Q4EYQcYSwxuC boBZkgh5IjRQSxe0skZRug tVlatKQxt2gtCDv6tPSdpN bmm1kdOqZWp1MntJSglpPy odbhfoFnzyVuNKF2XXSic6 xlcyBoYXZlIGNvbmNlbnRy pQEjmWkenL56fG8tdQC6rH vqq6FtyT2tJQUDp7BdzBJn cnRlcmlvbGVzIGhhdmUgZm qycrbkj8npFO9pjRDfdWXp LiBccGFyXHBhciBTcGVjaW ZkTTS7IEilbyzzBN3pw6Qw aoC0dfdaxUBnaPGzZUUUAt XzwyRiTl3bIOTkg6ukrmKw BDL7YIrybvK9XVWsIM6bT7 Lph4UsiFIxc1WmQBWdnXCe yJqejsOzVxT8pIhoVYAjp3 YcbZFgulXat6ifb7WtCGU1 cKPgzHAkTPY4QQbvuI1vQX OccANlsx6xDF6dXLzonHLm gxWyVEIcfmYho6xysKyvn6 KzUY8reTOsgRYuoJO6N8M9 cmVzLlxwYXJccGFyIERpcm QbuDEZxU00ti8bgIQddhRl Z4UrO5G2UQNyfpTNhEB1f1 qnH7y8HTduXN0wwNKblgEj IMKfC9Ged48kCQTtq2bxMQ RzRYctYL08QLuytIUsD4ti kv27hVGlQD8wYFDqe4Mgt9 oac1MdexZkZ8oaqAXtlIjq LlxwYXJccGFyIEltbXVub2 CikO3bNNOsUF2kUNPjsH2q bM1rawovQRGojjy5SLEqXI bFTfEcQKaiGH44FEfyHE97 sqPyiAPrkVrzPc3sWklgvE 6zkMMlfsFcu1OjlK2pwyle kPDytGcavnRjARB5scWvob QeGT42PaIvyRFyEQCjOeOQ R0o8LKIfO36gonHkhSOmAO SymZabemhoHO6gFV6be9Ka B8xhfMPyvhYqjPwqujOfhW ZqtbdqVbVqHXCoNBRyx9Of dSf0BWNsoNUgchctDoY3nJ C6dXBeAPLbe0QwTIUlGLKb bsYrfTYfDALgApYFP416CY NsG91eqeYzfAKoJLDkxkbs VKxym8ZaiL1qdmkvTHJgXz ydSENnobq5RTBaClS4ACOz H17rbpTzmBOfQTBphouyOE dwt3MktS0uswkiHK13dpIg nDMpxDdvFxcsZOMuL4UiHZ RkbCYmpIIiOES0YJtkpA3y LlxwYXJcdGFiIEMxcTogc2 EkgHZkkIBxXC6eo2YaJ3bp lVWvgRZiraggOj4usvGeBH GyND51KJScAkimRi0gBGjg SJJ5CJJjMGcky9YzoM2avf rkmTZoUOZgDkNMvNGbqG6b R7UbKkUuVGyqPI34LWhmfN PiBI2mtVEeSSX9RHaxvM2m K0MjdFBmpQ8lweRdWBGmDG Ujx8OgaPObrgHpysemaUFj qYCtutmpKu4nLEPcbsw6VC YxK3ShkZS9WVQtPErdSO99 PWjkzDCcXH1qhQUsCDD3XZ hlwM2bN1YblVEinB2xktEu KNBgDUBfy5AfsFHwitKgrh ngbYDduONsyfyxKs5esJQc VWDyTzMJKR7qJQG1SRFzA8 1lbnRhbCBtZXNhbmdpYWwg p3SctC4ybvaaWN29vzLkiN TveTsxAmhxDTTgM6NnCMYh kAQujEXlUEK3HXyjvK8iIg ljPRTvcCXuHMWfyKJmi0q8 B6slebMvMQPypPjgk6YkSR NblDIxHULaw4AnyY4tbV3e Div5z1Tat5VafxTmNVG6TS qieB1tFIhawqBeRoHtvtZv dnW4aJ14z2a5FCRpu3YjGM VdbcJkc0okx17afS5kmWV2 CJFdzHDgw6EysWH7BXKtDJ UjjYl9gHSeIFCxx2g0kRBj q7DbjLb6ITTeb122il9dNO RmUXFhjKBtff7uKYZtbtxo XZOlNPzdR05pz9NiWwKAvV WxjQHrlhTLwLBjx5Yxr5O4 FytbKNXbWMhjB3xag2MduC egyiVigNM1h5ucZ9p4QQIq rSQqAPwwWJMzpENcZOR6HS aeOZQvu0OagTqxqjSfedR3 GRKyGVWoh7Paq2tzn9Ygzi TsDS3qUEEtvNTrjXfnlUcn yg6rBUBgtXZeh0TkSwWlnZ 6rELC4sWTaWxWyxUCgNLPm wPMde4WjpAT1pPBpoNUudG PqtV1hlJgaligiOSdsaDpd SDIiw34oi0PrlSsjQBncr0 9ejyCoEXLtiVd5diUpaMQ3 X2D3nbUmsdL1GUVjlkB9kH R2KRXeQXCdnO4bRHE4dXXv UWVws0DzDA17MV9npRGbBT 4vYFvyZC5qIU4ymz2etSN9 tOouk76se2YmOAQyHUUpDF chDCPkWpS3e9Utc0FsOX8s i8CyGDqfBLpmopDmYVAmD2 Ykv89lv2n3oKHxgiBrdQzh fCejaMIoUXreWMQ2MJgjhS 0oBaLFwvFip8WwvNHvI46h uO20ydHaJGPwZSGfSQ9dPQ RoZSBtZXNhbmdpYWwgbWF0 wgi7ZHupDBS2rFUvGLCbEd BTdWJlbmRvdGhlbGlhbCwg b9VqXHFwdUzmmCoqzJvePX 6tMR8rj9UdZ0jonS2dMVCw iEDpFE0fdOOvURUyzWJpsJ Lfgt5mWO2wCSjxoY3xcP2n IGNvbXBsZXgtdHlwZSBkZX Vkg5w7egLcqcUgtm72JUWh FEBimrToSYKzWG3soCDtIT Vun5DsiXWqG9Qwq4QsELZi ZSBleHRlbnNpdmVseSBlZm LxI8CnOnOumXOjlY== SPECIAL STUDIES (test o0qkzDDoVMKezEM0NxIxEJ code = 3376) Jkl2kmf1EtfENthUKpWFtj aBNzumOhiu45jAU6yM04LW 6bWEIyOdF9VCTjubD1Bmg9 TSSzTSKxbHVrJ683GREwCU GxyUrliik6lD04CDQgpL5r dGJsIDtccmVkMFxncmVlbj XzZsm1PUW2bPgdBDLuamnw CxT5FSmuVEZpkrbkYXl2EX ydSNYduWL6HVTltCVzP7Tz ISQqRT7dsuj3BDE7DXpuTG VhFwH5YPLowSLhGYCwyKwa XRrus483DXS2VwVePQPftv XbhXwpmN3fAbWkHmRmJbvy ZjEgVGhlIGludGVycHJldG B6wF7fVF3oNRDcyRZbJ8Pk WMIiquEdaAQbGMK7sBNdwE NoHS8vMCxfaMMva3yxu0Oj J4yhmVuojAK7IU8zJJBsYD SuIYwtv9GknR1yPgjqJPGn oJAlXALnwxXpc8fwL9dnOX AnQCK4UZ1gabHtTfTjVX7i nD99x4Nyu50sh20ytX2ioL AyutLyF58feQFqoFNrs1Ol YRHgdjWauKN7EQShFBjcyr olf3r3nKS2bFUvhQEznXW4 aXNzdWUuICBUaGVzZSBjb2 54gn5xNYNypPWubgXjqO4p NNuvlhiprIZqIX7oBOWfNI WhNGZcZJ27kcSiOD7pmTPt w7eqduHppCFgk5AuzYJ1HP HtkRLeojxxGx5zQB67HJSr VWozzQ6jyBXaqmJuVR6cAF 9yS8C7lEOfEMXrpqYnu9xw DWjnQM7nJPZbwYkjGqcnMO KxFDUwdyYyzQW5BUGviLUt NDRubRFvVZpcpQFjw3bdu4 OlP8ktvYnrlMK6BPNiV4xy dEGpbSR5PBQ7uW7aBFpgiu XrAEDxn0NsUHJuUQPwLsG0 zE6pVUB3AkFWcLigDYJ2Ra A9GAkkCVPvWI8zXSplBMlg C3OjfJImGOLXUQBgf2doK5 tqISAyr2MhgT6pnKG0wGPg CSMitHL8INWwIOK0NBowjI UqZUVwWUMonIBxrQEnGm9x bGJlC7ZpS7jiqqQrxHBwcE G4nSSeSJufhoOiMWK7WCJl cH5tMS8sCCEjhCCiVE9cwC LbDYFiJCHsMVKqWMVsl1Da DFNncn38VENxJbewlAwrVW WlEk1iZg5wTVEocbEkHRO9 YoKYCV0oijjhmNBlfTxywl 2bCJymCZHJAAHhNPLoVQX5 QFVjqH5dADX6gCI3PFP3G9 adO8cwVLEzztZySQ5dTKXe mTDefrEyONogNI3atEJrPC Xpd4MeeayeEQQvTJW4OLQ3 QTxlXIAjVLKlIy1bMTOcqR 8rY0PhOMQ1ppSdm0TiJsML pQBdnJ19wUCkgj58XJOwEE FkB4XxZSYmDUIqRVanegAl iEhhHJEvx31fqJJwguHpm2 IaytIoAGIoV2txTXJocAZu oNFpg8SgeJ2mmZVbakQiLA F6hHSsJOUauQ6qCYRdeIpf ZLCvqL8yH5IyZBbvAm8aPD WhyloeAQ7jdn75QG3zsjNp CQ4kfgQmJL54mtTtNvJcMJ z1KEcIEDbGECz7AZEncsGo vWWuyLOqDSNldM0lcIXdTx 9ybSBoaWdoIGNvbXBsZXhp tTzxX5xlukvzCYabuAGcy5 HphC7ucYK7RUB4fL6kTwsw JUKhiDMoBZXmA5grxGYvdP Huej6gKSTqiD5gDOPwjvTF ERExfqNvfSP1bD5iFHYdvz GvOSanE7Upo79zjFbrdl1p I74evZUxgAAdnB6tCFagbn TtOMLxc1IxITTxXYQnKXF5 KBGxOEVezeCmVY7quMn8eS HhMQLNOcZHNMYvf8zbU1vj lJFhr7HivL5bzDchA7xZFL MkJSN9ABUgYLC6MHelOYC8 ObRbDfBpxA0ijpNZecDkvG TnCHVtz07tBuH6CZYhGGnp aGR2h59cUKTHBUz8GAIjFr DToZUuLE7thJ9iQ5RqSAva iuUswJ36CVOovjX7XTWhAp bnrJrdAXVaeA8thGdyWkCo MOHwd9ldM5jkiJSrnGTBS6 tPMx8etHJjiX== Gross assessment was [facility] performed at ([facility], = 2777) Department of Pathology, [address] [place] [address], Technical component was [facility] performed at ([facility], = 2778) Department of Pathology, [address] [place] [address], Professional component [facility] was performed at ([facility], code = 2779) Department of Pathology, [address] [place] [address], [facility] [id number] 17:03:06Surgical Pathology Report Case: [id number] Authorizing Provider: Ajit Nash MD Collected: 05/15/2021 03:03 PM Ordering Location: [address] Received: 05/15/2021 04:09 PM Service Pathologist: Briana Jenkins MD Specimen: Renal A. KIDNEY, LEFT, CORE NEEDLE BIOPSY: - GLOMERULAR AND VASCULAR CHANGES, COMPATIBLE WITH THROMBOTIC MICROANGIOPATHY. - FOCAL AND SEGMENTAL GLOMERULOSCLEROSIS. 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 - SEE COMMENT. 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 Patient's history of hypertension and pre eclampsia appear to be major contributing factors. Although other causes of TMA like TTP, atypical HUS and drugs cannot be completely excluded. Clinical correlation is suggested. 38986, 07101 X 3, 55687 x 8, 91497EGME. KidneyA. The specimen is received in 3 [...] segmental mesangial staining/entrapment, 2+, focal arterial staining.. [place]: segmental mesangial staining/entrapment, 2+, focal arterial staining. [...] are evaluatedImmunohistochemistry technical testing was performed at [facility], Pathology Laboratory where it was developed and [...] and electron microscopy imaging was performed at [facility], CV Pathology laboratory, CLIA # [id number], [address] [place] [address], [address], [place] [address]. The EM images were interpreted by the reporting pathologist at [facility], Department of Pathology, [address] [place] [address], [facility], [facility], [address] [place] [address], [facility], [facility] of Pathology, [address] [place] [address], [id number] 13:11:20 Test Item Value Reference Interpretation Comments Range Metanephrine (test 67 pg/mL See_Comment H This jaquan t was developed code = 7155476) and its anal ytical performance characteristics havebeen determined by [employer] [facility].It h as not been cleared or [...] (test code = and its analyti aviva 8731570) performance characteristics havebeen determined by [employer] [facility].It h as not been cleared or [...] (test code = reference range : strongly 6227229) suggestive of apheochromocyto ma(1). Elevations >1 - 4-fold upper reference range:significa nt but not diagnostic, may be due to medications or stress. Suggestrunning 24 hr urine fractionated me tanephrines and serum Chrom ogranin A forconfirmation . Reference: (1) Alondra Carolina et al, Plasma Forging Dies Final Finisher mogranin A or Urine FractionatedMet anephrines Follow-Up Testi ng Improves the Diagnostic Accuracy of PlasmaFractiona john Metanephrines f or Pheochromocytom a. The Journal of ClinicalEndocri nology and Metabolism 93 ( 1),91-95, 2008. For addit ional information, pl ease refer tohttp://educat ion.gocarshare.com/f aq/MetFract Free(This link is being provided for informational/e ducational purposes only.) This test was developed a nd its analytical perf ormance characteristics havebeen determined by [employer] [facility].It h as not been cleared or appr [...] (test code = Performing Lab KAREN) EZ [facility] [address] [place] [address] Arianna Larsen MD, PhD, ARYAN Lab Interpretation Abnormal (test code = 88058-6) [facility] HospitalPregnancy Screen, [id number] 10:04:01 Test Item Value Reference Range Interpretation Comments Preg Test, Ur (test code = 2112-1) Negative [facility] HospitalPREGNANCY SCREEN, [id number] 10:04:01 Test Item Value Reference Range Interpretation Comments TEST URINE (BEAKER) (test Negative code = 583) BASIC METABOLIC [id number] 05:16:14 Test Item Value Reference Range Interpretation [...] S NOT APPLICABLE FOR DIALYSIS PATIEN TS. Pest Control Worker ID - SITA MBASIC METABOLIC [id number] 06:54:06 Test Item Value Reference Range Interpretation [...] S NOT APPLICABLE FOR DIALYSIS PATIEN TS. Pest Control Worker ID - BRUCE Riggs, [id number] 21:09:34 Test Item Value Reference Range Interpretation Comments PRA,LC/MS/MS 1.22 ng/mL/h 0.25-5.82 This test was developed (test code = and its analyti aviva 0604105) performance characteristics havebeen determined by [employer] [facility].It h as not been cleared or approved by FDA. This as say has been validatedp ursuant to the CLIA reg ulations and is used for clinical purposes. KAREN (test Performing Lab code = KAREN) EZ [facility] [address] [place] [address] I Suzie NOLAN, PhD, ARYAN [facility] METABOLIC [id number] 06:21:05 Test Item Value Reference Range Interpretation [...] S NOT APPLICABLE FOR DIALYSIS PATIEN TS. Pest Control Worker ID - [place]LOTTE GCBC with platelet count + automated [id number] 05:35:02 Test Item Value Reference Range Interpretation Comments WBC (test code = 6690-2) 9.4 See_Comment [A utomated message] The system [employer] generated this result transmitted ref erence range: 3.5 - 10 .5 K/L. The refe rence range was not u sed to interpret this result as normal/abnor mal. RBC (test code = 789-8) 2.75 See_Comment L [Au tomated message] The system [employer] generated this result transmitted ref erence range: 3.93 - 5 .22 M/L. The refe rence range was not u sed to interpret this result as normal/abnor mal. MCHC (test code = 786-4) 34.5 See_Comment L [A utomated message] The system [employer] generated this result transmitted ref erence range: [...] L [Aut omated message] 777-3) The system [employer] generated this result transmitted ref erence range: 150 - 45 0 K/CU MM. The referen ce range was not u sed to interpret this result as normal/abnor mal. MPV (test code = 11.4 fL 9.4-12.3 05789-2) nRBC (test code = 413) 0 See_Comment [Aut omated message] The system [employer] generated this result transmitted ref erence range: [...] H [Aut omated message] 670) The system [employer] generated this result transmitted ref erence range: 1.56 - 6 .13 K/L. The refe rence range was not u sed to interpret this result as normal/abnor mal. # Lymphs (test code = 1.12 See_Comment L [Auto mated message] 414) The system [employer] generated this result transmitted ref erence range: 1.18 - 3 .74 K/L. The refe rence range was not u sed to interpret this result as normal/abnor mal. # Monos (test code = 0.68 See_Comment H [Autom ated message] 415) The system [employer] generated this result transmitted ref erence range: 0.24 - 0 .36 K/L. The refe rence range was not u sed to interpret this result as normal/abnor mal. # Eos (test code = 416) 0.57 See_Comment H [Au tomated message] The system [employer] generated this result transmitted ref erence range: 0.04 - 0 .36 K/L. The refe rence range was not u sed to interpret this result as normal/abnor mal. # Baso (test code = 417) 0.04 See_Comment [A utomated message] The system [employer] generated this result transmitted ref erence range: 0.01 - 0 .08 K/L. The refe rence range was not u sed to interpret this result as normal/abnor mal. Immature 0 % 0-1 Granulocytes-Relative (test code = 2801) Lab Interpretation (test Abnormal code = 75108-0) [facility] W/PLT COUNT & AUTO [id number] 05:35:02 Test Item Value Reference Range Interpretation [...] (BEAKER) (test code = 2801) Hemoglobin and [id number] 21:54:33 Test Item Value Reference Range Interpretation [...] = 4544-3) KAREN (test code = KAREN) Pest Control Worker ID - [id number] Lab Interpretation Abnormal (test code = 93900-6) [facility] HospitalHEMOGLOBIN AND [id number] 21:54:33 Test Item Value Reference Range Interpretation Comments HEMOGLOBIN (BEAKER) (test code = 8.2 GM/DL 11.2-15.7 L 410) HEMATOCRIT (BEAKER) (test code = 24.3 % 34.1-44.9 L 411) Pest Control Worker ID - [id number]/S, BIOPSY, RENAL (KIDNEY)2021-05-15 19:01:00Still trying to control patient's blood pressure. Have increased her medications today on 05/10/2021. If BP still over 160 tomorrow then will have to cancel biopsy. Please review vital signs before bringing down for procedureReason for exam:->[facility] : 1990 Sex: FFINAL REPORT [...] Successful ultrasound-guided core biopsy of the left [place] kidney as described above. Signed: Yina Valdes MDReport Verified Date/Time: 05/15/2021 19:01:19 Reading Location: [place] [address] Angio Body Reading Room BASIC METABOLIC [id number] 05:39:12 Test Item Value Reference Range Interpretation [...] S NOT APPLICABLE FOR DIALYSIS PATIEN TS. Pest Control Worker ID - [place] GProthrombin time/[id number] 05:11:40 Test Item Value Reference Interpretation Comments Range Protime (test code = 13.9 See_Comment [Autom ated 5902-2) message] The system which generated this result transmitted reference range : 11.9 - 14.2 seconds. The reference range was not used to interpret this result as normal/abnormal . INR (test code = 1.09 See_Comment [Automated 6301-6) message] The system which generated this result [...] valves. Lab Interpretation Normal (test code = 51523-3) [facility] HospitalPROTHROMBIN TIME/[id number] 05:11:40 Test Item Value Reference Range Interpretation Comments PROTIME (BEAKER) 13.9 seconds 11.9-14.2 (test code = 759) INR (BEAKER) (test 1.09 See_Comment [Automat ed message] code = 370) The system [employer] generated this result transmitted ref erence range: [...] 0-1 PERCENT (BEAKER) (test code = 2801) [id number] 23:41:04 Test Item Value Reference Interpretation Comments Range Aldosterone (test 2 ng/dL Adult Ref erence code = 4873714) Ranges for Aldosterone: Upright 8:00-10 :00 am < or = 28 ng/ dL Upright 4:00-6: 00 pm < or = 21 ng/ dL Supine 8:00-10 :00 am 3-16 ng/dL Th is test was developed a nd its analytical perf ormance characteristics havebeen determ ined by [facility] .It has not been cleare d or approved by FDA . This assay has been validatedpursua nt to the CLIA regula tions and is used for clinical purpos es. KAREN (test code = Performing Lab KAREN) EZ [employer] [facility] [address] [place] [address] Arianna Larsen MD, PhD, ARYAN [facility] METABOLIC [id number] 05:29:21 Test Item Value Reference Range Interpretation [...] S NOT APPLICABLE FOR DIALYSIS PATIEN TS. Pest Control Worker ID - SITA [facility] W/PLT COUNT & AUTO [id number] 05:05:15 Test Item Value Reference Range Interpretation [...] (BEAKER) (test code = 2801) Vitamin D, 74-[id number] 05:18:21 Test Item Value Reference Range Interpretation Comments Vitamin D 25-Hydroxy 6.6 ng/mL 6.6-49.9 (test code = 2764) KAREN (test code = KAREN) Effective 04/13/2017: Reference Range ChangeNew: 6.6-49.9 ng/mL Previous: 13.0-47.8 ng/mL Recommended Vitamin D Target Range: 30.0-40.0 ng/mLOperator ID - PIAYA L Lab Interpretation (test Normal code = 37876-6) [facility] HospitalVITAMIN D, [id number] 05:18:21 Test Item Value Reference Range Interpretation Comments VITAMIN D 25-OH (BEAKER) (test code 6.6 ng/mL 6.6-49.9 = 2764) Effective 04/13/2017: Reference Range ChangeNew: 6.6-49.9 ng/mL Previous: 13.0-47.8 ng/mLRecommended Vitamin D Target Range: 30.0-40.0 ng/mLOperator ID - JANETT LComprehensive metabolic [id number] 05:08:17 Test Item Value Reference Range Interpretation Comments Protein, Total (test 5.4 See_Comment L [Autom ated code = 2885-2) message] The system which generated this result transmit john reference range : 6.0 - 8.3 gm/dL . The reference range was not u sed to interpret th is result as normal/abnormal . Albumin (test code = 3.2 g/dL 3.5-5.0 L 92181-9) Alkaline Phosphatase 40 U/L 40-150 (test code = 6768-6) Total Bilirubin (test 0.6 mg/dL 0.2-1.2 code = 1975-2) Sodium (test code = 139 meq/L 371-982 9491-2) Potassium (test code 4.8 meq/L 3.5-5.1 = 2823-3) Chloride (test code = 103 meq/L 98-107 2075-0) CO2 (test code = 27 meq/L 22-29 2028-9) BUN (test code = 26 mg/dL 7-21 H 3094-0) Creatinine (test code 4.91 mg/dL 0.57-1.25 H = 2160-0) Glucose (test code = 104 mg/dL 70-105 2345-7) Calcium (test code = 8.2 mg/dL 8.4-10.2 L 60864-6) AST (test code = 11 U/L 5-34 1920-8) ALT (test code = 8 U/L 6-55 1742-6) EGFR (test code = 10 mL/min/1.73 [place] [address]-1) NOT ACCURATE CREATININE CLEARANCE IN PREDICTING GLOMERULAR FILTRATION RATE . ESTIMATED GFR I S NOT APPLICABLE FOR DIALYSIS PATIEN TS. KAREN (test code = KAREN) Pest Control Worker ID - PIAYA L Lab Interpretation Abnormal (test code = 17796-2) [facility] HospitalCOMPREHENSIVE METABOLIC [id number] 05:08:17 Test Item Value Reference Range Interpretation [...] S NOT APPLICABLE FOR DIALYSIS PATIEN TS. Pest Control Worker ID - PIJOYCE [id number] 05:07:40 Test Item Value Reference Range Interpretation Comments Phosphorus (test code = 5.9 mg/dL 2.3-4.7 H 2777-1) KAREN (test code = KAREN) Pest Control Worker ID - JANETT L Lab Interpretation (test Abnormal code = 60446-5) [facility] 05:07:40 Test Item Value Reference Range Interpretation Comments PHOSPHORUS (BEAKER) (test code = 5.9 mg/dL 2.3-4.7 H 604) Pest Control Worker ID - JANETT [id number] 05:07:39 Test Item Value Reference Range Interpretation Comments Magnesium (test code = 2.1 mg/dL 1.6-2.6 96871-3) KAREN (test code = KAREN) Pest Control Worker ID - JANETT L Lab Interpretation (test Normal code = 17617-6) [facility] 05:07:39 Test Item Value Reference Range Interpretation Comments MAGNESIUM (BEAKER) (test code = 2.1 mg/dL 1.6-2.6 627) Pest Control Worker ID - JANETT LCalcium, [id number] 04:55:54 Test Item Value Reference Range Interpretation Comments Calcium, Ion (test code = 1993-) 1.05 mmol/L 1.12-1.27 L pH, Blood (test code = 50349-5) 7.48 Lab Interpretation (test code = Abnormal 09818-1) [facility], [id number] 04:55:54 Test Item Value Reference Range Interpretation Comments CALCIUM IONIZED (BEAKER) (test 1.05 mmol/L 1.12-1.27 L code = 698) PH, BLOOD (BEAKER) (test code = 7.48 1810) CBC W/PLT COUNT & AUTO [id number] 04:47:53 Test Item Value Reference Range Interpretation [...] (test code = 2801) CT, BRAIN, WITHOUT [id number] 22:18:00Unlisted Reason for Exam - Click Yes and Enter Reason Below->No [facility] : 1990 Sex: FFINAL REPORT [...] Date/Time: 05/12/2021 22:18:02 Double- Stranded DNA (dsDNA) [id number] 10:37:15 Test Item Value Reference Range Interpretation Comments ds DNA Ab (test code = 1055) Negative Negative [facility]ANDED [facility] (DSDNA) [id number] 10:37:15 Test Item Value Reference Range Interpretation Comments ANTI-DNA DS (BEAKER) (test code = Negative Negative 1055) [id number] 06:54:11 Test Item Value Reference Range Interpretation Comments Cortisol, Total (test code 5.4 ug/dL 3.7-19.4 = 2755) KAREN (test code = KAREN) Pest Control Worker ID - SITA M Lab Interpretation (test Normal code = 08410-8) [facility]CORT[facility]OL2021-[facility]-09 06:54:11 Test Item Value Reference Range Interpretation Comments CORTISOL, TOTAL (BEAKER) (test code 5.4 ug/dL 3.7-19.4 = 2755) Pest Control Worker ID - SITA MBASIC METABOLIC [id number] 06:44:11 Test Item Value Reference Range Interpretation [...] S NOT APPLICABLE FOR DIALYSIS PATIEN TS. Pest Control Worker ID - SITA MCBC W/PLT COUNT & AUTO [id number] 06:17:13 Test Item Value Reference Range Interpretation [...] PERCENT (BEAKER) (test code = 2801) SCREEN, [id number] 15:54:03 Test Item Value Reference Range Interpretation Comments TEST URINE (BEAKER) (test Negative code = 583) Eosinophil [id number] 14:16:55 Test Item Value Reference Range Interpretation Comments Eosinophil Smear (test code = No EOS seen No EOS seen 28107-0) Lab Interpretation (test code = Normal 78443-9) [facility]EOSINOPHIL SMEAR, [id number] 14:16:55 Test Item Value Reference Range Interpretation Comments EOSINOPHIL SMEAR, URINE (BEAKER) No EOS seen No EOS seen (test code = 1851) Anti-Nuclear Antibody (YUMIKO)2021-05-11 13:06:18 Test Item Value Reference Range Interpretation Comments YUMIKO (test code = 34966-8) Negative Negative KAREN (test code = KAREN) Test performed by IFA method. Lab Interpretation (test Normal code = 33550-6) [facility]ANTI[facility]NUCLE[facility] ANTIBODY (YUMIKO)2021-05-11 13:06:18 Test Item Value Reference Range Interpretation Comments ANTI-NUCLEAR ANTIBODY (YUMIKO) (BEAKER) Negative Negative (test code = 418) Test performed by IFA method.Sodium, random [id number] 11:58:37 Test Item Value Reference Range Interpretation Comments Sodium Urine (test 97 meq/L code = 2955-3) KAREN (test code = Reference Range: No KAREN) NormalsOperator MINNA [facility] CenterODIUM, RANDOM [id number] 11:58:37 Test Item Value Reference Range Interpretation Comments SODIUM URINE (BEAKER) (test code = 97 meq/L 243) Reference Range: No NormalsOperator MINNA [place] FCreatinine, random urine 2021-05-11 11:58:36 Test Item Value Reference Range Interpretation Comments Creatinine, Ur 48.3 mg/dL (test code = 2161-8) KAREN (test code = Reference Range: No KAREN) NormalsOperator MINNA Deras [facility]OM [id number] 11:58:36 Test Item Value Reference Range Interpretation Comments CREATININE URINE (BEAKER) (test 48.3 mg/dL code = 375) Reference Range: No NormalsOperator MNINA [place] FProtein, random urine 2021-05-11 10:40:59 Test Item Value Reference Range Interpretation Comments Protein, Urine (test code 172 mg/dL 0-14 H = 2888-6) KAREN (test code = KAREN) Pest Control Worker MINNA Deras Lab Interpretation (test Abnormal code = 39884-9) [facility]OTE[facility] RANDOM [id number] 10:40:59 Test Item Value Reference Range Interpretation Comments PROTEIN, URINE (BEAKER) (test code 172 mg/dL 0-14 H = 1569) Pest Control Worker MINNA F[place]ON FUrinalysis w/[id number] 10:37:39 Test Item Value Reference Range Interpretation Comments Color, UA (test code Light Yellow = 5778-6) Clarity, UA (test Hazy code = 5767-9) Specific [place], UA 1.009 1.001-1.035 (test code = 5811-5) pH, UA (test code = 7.5 5.0-8.0 5803-2) Protein, UA (test 200 mg/dL Negative A code = 98320-1) Glucose, UA (test Negative Negative code = 365) Ketones, UA (test Negative Negative code = 2514-8) Bilirubin, UA (test Negative Negative code = 82460-6) Blood, UA (test code Large Negative A = 55488-2) Nitrite, UA (test Negative Negative code = 5802-4) Leukocytes, UA (test Moderate Negative A code = 5799-2) Urobilinogen, UA 0.2 mg/dL 0.2-1.0 (test code = 28326-4) RBC, UA (test code = 5 See_Comment [Autom ated 65828-8) message] The system which generated this result [...] . Bacteria, UA (test Rare code = 32425-4) Squam Epithel, UA 7 See_Comment [Automate d (test code = 67974-4) messag e] The system which generated this [...] Crystals, Urine (test None Seen code = 45820-9) Specimen Source (test code = 2795) KAREN (test code = KAREN) Pest Control Worker ID - [auto]Pest Control Worker ID - tech Lab Interpretation Abnormal (test code = 45752-4) [facility]IS W/ [id number] 10:37:39 Test Item Value Reference Range Interpretation [...] = 1521) SOURCE(BEAKER) (test code = 2795) Pest Control Worker ID - [auto]Pest Control Worker ID - techPeripheral Blood Smear - Path Review 2021-05-11 09:20:57 Test Item Value Reference Range Interpretation Comments Pathologist Review No circulating blasts. (test code = 2640) No significantly increased schistocytes. Pathologist: (test Carlos Marcelinoheathen, code = 2849) M.D.(electronic signature) [facility]PER[facility] - PATHOLOGIST REVIEW 2021-05-11 09:20:57 Test Item Value Reference Range Interpretation Comments PERIPHERAL SMR REVIEW No circulating blasts. (BEAKER) (test code = No significantly 2640) increased schistocytes. [id number] Carlos Armenen, (BEAKER) (test code = M.D.(electronic 2849) signature) Peripheral Blood Smear - Hold [id number] 08:50:08 Test Item Value Reference Range Interpretation Comments Peripheral Smear Save (test code = saved 1815) [facility]PER[facility] - HOLD [id number] 08:50:08 Test Item Value Reference Range Interpretation Comments PERIPHERAL SMEAR SAVE (BEAKER) (test saved code = 1815) BASIC METABOLIC [id number] 05:30:46 Test Item Value Reference Range Interpretation [...] S NOT APPLICABLE FOR DIALYSIS PATIEN TS. Pest Control Worker ID - SITA epatic function [id number] 05:29:36 Test Item Value Reference Range Interpretation Comments Protein, Total (test 4.9 See_Comment L [Autom ated code = 2885-2) message] The system which generated this result transmit john reference range : 6.0 - 8.3 gm/dL . The reference range was not u sed to interpret th is result as normal/abnormal . Albumin (test code = 2.9 g/dL 3.5-5.0 L 70906-6) Total Bilirubin (test 0.7 mg/dL 0.2-1.2 code = 1975-2) Bilirubin, Direct 0.3 mg/dL 0.1-0.5 (test code = 1968-7) Alkaline Phosphatase 29 U/L 40-150 L (test code = 6768-6) AST (test code = 14 U/L 5-34 1920-8) ALT (test code = 14 U/L 6-55 1742-6) KAREN (test code = KAREN) Pest Control Worker ID - SITA oRy Lab Interpretation Abnormal (test code = 97050-4) [facility] HospitalHEPATIC FUNCTION [id number] 05:29:36 Test Item Value Reference Range Interpretation [...] (test code = 14 U/L 6-55 347) Pest Control Worker ID - SITA [id number] 05:29:35 Test Item Value Reference Range Interpretation Comments PHOSPHORUS (BEAKER) (test code = 4.3 mg/dL 2.3-4.7 604) Pest Control Worker ID - SITA [id number] 05:29:34 Test Item Value Reference Range Interpretation Comments MAGNESIUM (BEAKER) (test code = 1.8 mg/dL 1.6-2.6 627) Pest Control Worker ID - SITA MPROTHROMBIN TIME/[id number] 05:27:17 Test Item Value Reference Range Interpretation Comments PROTIME (BEAKER) 14.1 seconds 11.9-14.2 (test code = 759) INR (BEAKER) (test 1.11 See_Comment [Automat ed message] code = 370) The system [employer] generated this result transmitted ref erence range: [...] Not Detected, (test code = Negative, See 69950-0) external report for linked test SARS-COV-2 [facility] PERFORMING LAB (test code = 94820-6) KAREN (test code = Negative result for [...] of the Act. Fact Sheet for Healthcare Providers:https://www.[employer] idel.com/sites/default/f eric/product/documents/F act_Sheet_HC_Providers_L wbd_YPIF-YtU-5.pdf Fact Sheet for Healthcare Patients:https://www.manuela del.com/sites/default/fi les/product/documents/Fa ct_Sheet_Patients_Lyra_S ARS-CoV-2.pdf Performing Laboratory:[facility], [place] [address] [place], [place] [address]ARS-COV2/RT-PCR ([facility])2021-05-10 09:26:37 Test Item Value Reference Range Interpretation Comments SARS-COV2/RT-PCR (test Negative Not Detected, Negative, code = 7626355) See external report for linked test SARS-COV-[address] [facility] (test code = 5502732) Negative result for this test determines that [...] 564(g) of the Act.Fact Sheet for Healthcare Providers:https://www.[employer]Up/sites/default/files/product/documents/Fact_Shee r_EW_Ukwviebep_Giat_KYKO-LgA-8.pdfFact Sheet for Healthcare Patients:https://www.[employer].com/sites/default/files/product/ documents/Izka_Shkwy_Vejlqend_Hxyb_XIBP-LcN-4.pdfPerforming Laboratory:[facility], [place] [address]Iwznxekwrm A1c 2021-05-10 08:50:45 Test Item Value Reference Range Interpretation Comments Hemoglobin A1C (test code = 4548-4) 5.1 % 4.3-6.1 Lab Interpretation (test code = Normal 38948-5) [facility] HospitalHEMOGLOBIN [id number] 08:50:45 Test Item Value Reference Range Interpretation Comments HEMOGLOBIN A1C (BEAKER) (test code = 5.1 % 4.3-6.1 368) hCG, quantitative, [id number] 05:45:56 Test Item Value Reference Range Interpretation Comments hCG Quant (test code <1 See_Comment [Autom ated = 30372-3) message] The system which generated this result [...] 10,000-100,000 6-8 Weeks 15,000-200,000 2-3 Months 10,000-100,000 Pest Control Worker ID - PIAYA L Lab Interpretation Normal (test code = 22128-1) [facility] HospitalHCG, QUANTITATIVE, [id number] 05:45:56 Test Item Value Reference Range Interpretation Comments GONADOTROPIN, CHORIONIC (HCG) QUANT < mIU/mL 0-10 (BEAKER) (test code = 649) Non- Females: <10 mIU/mL Females: Gestation Age Reference Range(mIU/mL) 0.2-1 Week 5-50 1-2 Weeks 50-500 2-3 Weeks 100-5,000 3-4Weeks 500-10,000 4-5 Weeks 1,000-50,000 5-6 Weeks 10,000-100,000 6-8 Weeks 15,000-200,000 2-3 Months 10,000-100,000 Pest Control Worker ID - PIAYA L Hepatitis B [id number] 05:44:41 Test Item Value Reference Range Interpretation Comments Hep B Core Total Ab Nonreactive Nonreactive (test code = 74673-4) Hep B S Ab (test 20.7 See_Comment H [Automated code = 56160-3) message] The system which generated this result transmitted reference range : <8.0 mIU/mL. e reference range was not used to interpret this result as normal/abnormal . HBsAg Screen (test Nonreactive Nonreactive code = 5195-3) KAREN (test code = Pest Control Worker ID - KAREN) JANETT L Lab Interpretation Abnormal (test code = 43380-2) [facility] HospitalHEPATITIS B [id number] 05:44:41 Test Item Value Reference Range Interpretation Comments HEPATITIS B CORE TOTAL ANTIBODY Nonreactive Nonreactive (BEAKER) (test code = 497) HEPATITIS B SURFACE ANTIBODY 20.7 mIU/mL <8.0 H (BEAKER) (test code = 647) HEPATITIS B SURFACE ANTIGEN (2) Nonreactive Nonreactive (BEAKER) (test code = 2585) Pest Control Worker ID - PIAYA LBASIC METABOLIC [id number] 05:37:00 Test Item Value Reference Range Interpretation [...] S NOT APPLICABLE FOR DIALYSIS PATIEN TS. Pest Control Worker ID - JANETT [id number] 05:36:12 Test Item Value Reference Range Interpretation Comments PHOSPHORUS (BEAKER) (test code = 3.4 mg/dL 2.3-4.7 604) Pest Control Worker ID - JANETT ISBELLEPATIC FUNCTION [id number] 05:36:12 Test Item Value Reference Range Interpretation [...] (test code = 14 U/L 6-55 347) Pest Control Worker ID - JANETT [id number] 05:36:11 Test Item Value Reference Range Interpretation Comments MAGNESIUM (BEAKER) (test code = 1.9 mg/dL 1.6-2.6 627) Pest Control Worker ID - JANETT [id number] 05:29:10 Test Item Value Reference Range Interpretation Comments Haptoglobin (test code = <8 14-258 L 4542-7) KAREN (test code = KAREN) Pest Control Worker ID - JANETT L Lab Interpretation (test Abnormal code = 17476-0) [facility] HospitalHAPTOGLOBIN2021-11-07 05:29:10 Test Item Value Reference Range Interpretation Comments HAPTOGLOBIN (BEAKER) (test code = < mg/dL 14-258 L 366) Pest Control Worker ID - JANETT LComplement Component [id number] 05:23:42 Test Item Value Reference Range Interpretation Comments C3 Complement (test code = 69 mg/dL 82-193 L 4487-5) KAREN (test code = KAREN) Pest Control Worker ID - JANETT L Lab Interpretation (test Abnormal code = 57075-8) [facility] HospitalCOMPLEMENT COMPONENT [id number] 05:23:42 Test Item Value Reference Range Interpretation Comments C3 COMPLEMENT (BEAKER) (test code = 69 mg/dL 82-193 L 393) Pest Control Worker ID Indra ROWLAND LComplement Component [id number] 05:23:41 Test Item Value Reference Range Interpretation Comments C4 Complement (test code = 23 mg/dL 15-57 67866-9) KAREN (test code = KAREN) Pest Control Worker ID Indra ROWLADN L Lab Interpretation (test Normal code = 20639-9) [facility] HospitalCOMPLEMENT COMPONENT [id number] 05:23:41 Test Item Value Reference Range Interpretation Comments C4 COMPLEMENT (BEAKER) (test code = 23 mg/dL 15-57 394) Pest Control Worker ID Indra ROWLAND LCBC W/PLT COUNT & AUTO [id number] 05:20:24 Test Item Value Reference Range Interpretation [...] PERCENT (BEAKER) (test code = 2801) PROTHROMBIN TIME/[id number] 05:17:58 Test Item Value Reference Range Interpretation Comments PROTIME (BEAKER) 14.7 seconds 11.9-14.2 H (test code = 759) INR (BEAKER) (test 1.17 See_Comment [Automat ed message] code = 370) The system [employer] generated this result transmitted ref erence range: <=5.90. The reference range was not used to int erpret this result as normal/abnormal . RECOMMENDED COUMADIN/WARFARIN INR THERAPY RANGESSTANDARD DOSE: 2.0 - 3.0 Includes: PROPHYLAXIS forvenous thrombosis, systemic embolization; TREATMENT for venous thrombosis and/or pulmonary embolus.HIGH RISK: Target INR is 2.5-3.5 for patients with mechanical heart valves.U/S, RENAL, [id number] 01:22:00 Reordered per original order due to many scans and procedures and limited staffReason for exam:->acute renal failureShould this be performed at the bedside?->Yes[facility] : 1990 Sex: FFINAL REPORT [...] MDReport Verified Date/Time: 05/10/2021 01:22:15 Hepatitis panel, [id number] 21:50:13 Test Item Value Reference Range Interpretation Comments Hep A IgM (test code = Nonreactive Nonreactive 72853-1) Hep B C IgM (test code = Nonreactive Nonreactive 79012-5) Hepatitis C Ab (test code = Nonreactive Nonreactive 06562-7) HBsAg Screen (test code = Nonreactive Nonreactive 5195-3) KAREN (test code = KAREN) Pest Control Worker ID - DB Lab Interpretation (test Normal code = 33489-5) [facility] HospitalHEPATITIS PANEL, [id number] 21:50:13 Test Item Value Reference Range Interpretation Comments HEPATITIS A IGM ANTIBODY (BEAKER) Nonreactive Nonreactive (test code = 498) HEPATITIS B CORE IGM ANTIBODY Nonreactive Nonreactive (BEAKER) (test code = 645) HEPATITIS C ANTIBODY (BEAKER) Nonreactive Nonreactive (test code = 367) HEPATITIS B SURFACE ANTIGEN (2) Nonreactive Nonreactive (BEAKER) (test code = 2585) Pest Control Worker ID - DBVitamin [id number] 21:05:30 Test Item Value Reference Range Interpretation Comments Vitamin B12 (test code = 346 pg/mL 767-385 9659-9) KAREN (test code = KAREN) Pest Control Worker ID - GRISELDA B Lab Interpretation (test Normal code = 04681-3) [facility] HospitalVITAMIN [id number] 21:05:30 Test Item Value Reference Range Interpretation Comments VITAMIN B12 (BEAKER) (test code = 346 pg/mL 213-816 774) Pest Control Worker ID - GRISELDA [id number] 20:58:23 Test Item Value Reference Range Interpretation Comments Ferritin (test code = 143.75 ng/mL 5.00-275.00 2276-4) KAREN (test code = KAREN) Pest Control Worker ID - GRISELDA B Lab Interpretation (test Normal code = 77241-3) [facility] HospitalFERRITIN2021-11-06 20:58:23 Test Item Value Reference Range Interpretation Comments FERRITIN (BEAKER) (test code = 143.75 ng/mL 5.00-275.00 361) Pest Control Worker ID - GRISELDA BIron, TIBC, % sat. (without ferritin)2021-05-09 20:37:27 Test Item Value Reference Range Interpretation Comments Iron (test code = 2498-4) 43.0 ug/dL 40.0-160.0 TIBC (test code = 2500-7) 205 ug/dL 250-450 L Iron % Saturation (test 21 % 20-55 code = 2502-3) KAREN (test code = KAREN) Pest Control Worker ID - GRISELDA B Lab Interpretation (test Abnormal code = 15416-9) [facility] HospitalIRON, TIBC, % SAT. (WITHOUT FERRITIN)2021-05-09 20:37:27 Test Item Value Reference Range Interpretation Comments IRON (BEAKER) (test code = 547) 43.0 ug/dL 40.0-160.0 TOTAL IRON BINDING CAPACITY 205 ug/dL 250-450 L (BEAKER) (test code = 769) IRON % SATURATION (2) (BEAKER) 21 % 20-55 (test code = 2590) Pest Control Worker ID - GRISELDA BType and screen, [id number] 18:57:00 Test Item Value Reference Range Interpretation Comments ABO/RH AUTOMATED (BEAKER) (test O POSITIVE code = 2260) Ab Scrn (test code = 890-4) NEGATIVE [facility] HospitalFibrin soluble [id number] 18:16:36 Test Item Value Reference Range Interpretation Comments Fibrin Soluble Monomer (test code = Negative 77392-6) [facility] HospitalFIBRIN SOLUBLE [id number] 18:16:36 Test Item Value Reference Range Interpretation Comments FIBRIN SOLUBLE MONOMER (BEAKER) Negative (test code = 1416) PERIPHERAL BLOOD SMEAR - HOLD [id number] 18:01:08 Test Item Value Reference Range Interpretation Comments PERIPHERAL SMEAR SAVE (BEAKER) (test saved code = 1815) Manual [id number] 17:45:23 Test Item Value Reference Range Interpretation [...] = 3438) KAREN (test code = KAREN) Pest Control Worker ID - [id number] ID - Stacy comments: Slide comments: Lab Interpretation Abnormal (test code = 83407-3) [facility](CELLAVISION MANUAL DIFF)2021-05-09 17:45:23 Test Item Value [...] CONCENTRATION Decreased (CELLAVISION)(BEAKER) (test code = 3438) Pest Control Worker ID - [id number] ID - Stacy comments: Slide comments:BASIC METABOLIC [id number] 17:12:57 Test Item Value Reference Range Interpretation [...] S NOT APPLICABLE FOR DIALYSIS PATIEN TS. Pest Control Worker ID - DBLactate dehydrogenase (LDH)2021-05-09 17:12:52 Test Item Value Reference Range Interpretation Comments LDH (test code = 2532-0) 569 U/L 125-220 H KAREN (test code = KAREN) Pest Control Worker ID - DB Lab Interpretation (test Abnormal code = 01935-2) [facility] HospitalLACTATE DEHYDROGENASE (LDH)2021-05-09 17:12:52 Test Item Value Reference Range Interpretation Comments LACTATE DEHYDROGENASE (BEAKER) (test 569 U/L 125-220 H code = 635) Pest Control Worker ID - [id number] 17:12:51 Test Item Value Reference Range Interpretation Comments PHOSPHORUS (BEAKER) (test code = 4.8 mg/dL 2.3-4.7 H 604) Pest Control Worker ID - DBHEPATIC FUNCTION [id number] 17:12:51 Test Item Value Reference Range Interpretation [...] (test code = 6 U/L 6-55 347) Pest Control Worker ID - [id number] 17:12:50 Test Item Value Reference Range Interpretation Comments MAGNESIUM (BEAKER) (test code = 2.2 mg/dL 1.6-2.6 627) Pest Control Worker ID - [id number] 17:01:46 Test Item Value Reference Range Interpretation Comments Fibrinogen (test code = 3255-7) 287 mg/dl 225-434 Lab Interpretation (test code = Normal 85104-2) [facility] HospitalFIBRINOGEN2021-11-06 17:01:46 Test Item Value Reference Range Interpretation Comments FIBRINOGEN LEVEL (BEAKER) (test 287 mg/dl 225-434 code = 658) PROTHROMBIN TIME/[id number] 16:56:50 Test Item Value Reference Range Interpretation Comments PROTIME (BEAKER) 14.7 seconds 11.9-14.2 H (test code = 759) INR (BEAKER) (test 1.17 See_Comment [Automat ed message] code = 370) The system [employer] generated this result transmitted ref erence range: [...] PERCENT (BEAKER) (test code = 2801) Reticulocyte [id number] 16:50:26 Test Item Value Reference Range Interpretation Comments % Retic (test code = 2.9 % 0.5-1.7 H 92966-6) KAREN (test code = KAREN) Pest Control Worker ID - [id number] Lab Interpretation (test Abnormal code = 48540-2) [facility] HospitalRETICULOCYTE [id number] 16:50:26 Test Item Value Reference Range Interpretation Comments RETICULOCYTE COUNT PCT (BEAKER) (test 2.9 % 0.5-1.7 H code = 575) Pest Control Worker ID - [id number], CHEST, 1 VIEW, NON [id number] 14:52:00Reason for exam:->acute renal failureShould this be performed at the bedside?->Yes [facility] 1990 Sex: FFINAL REPORT [...]
[2021-06-10] MEDS ORDERED: MAGNESIUM CITRATE 300 ML BOT ONE (07:55)
[2021-06-10] MEDS ORDERED: FLEET ENEMA ADULT PR ONE (08:14)
--- NOTE | 2021-06-10 08:28 | ER ---
Nurse's Notes [facility] Name: Shaun Lopez Age: 30 yrs Sex: Female : 1990 Arrival Date: 06/10/2021 Time: 06:47 Bed 11 Private MD: Diagnosis: Constipation, unspecified Presentation: 06/10 07:31 Chief complaint: Patient states: mid abd pain X 2 days, denies n/v/d , was diagnosed iw with constipation this weekend, has not been able to have a BM since last Tuesday. Coronavirus screen: At this time, the client does not indicate any symptoms associated with coronavirus-19. Ebola Screen: Patient negative for fever greater than or equal to 101.5 degrees Fahrenheit, and additional compatible Ebola Virus Disease symptoms Patient denies exposure to infectious person. Patient denies travel to an Ebola-affected area in the 21 days before illness onset. No symptoms or risks identified at this time. Initial Sepsis Screen: Does the patient meet any 2 criteria? No. Patient's initial sepsis screen is negative. Does the patient have a suspected source of infection? No. Patient's initial sepsis screen is negative. Risk Assessment: Do you want to hurt yourself or someone else? Patient reports no desire to harm self or others. Onset of symptoms was June 03, 2021. 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 iw Historical: - Allergies: 07:32 No Known Allergies; iw - Home Meds: 07:32 calcitriol 0.25 mcg Oral cap 1 cap [Active]; carvedilol 25 mg Oral tab 1 tab 2 times iw per day [Active]; clonidine HCl 0.1 mg Oral tab 1 tab every 6 hours [Active]; docusate sodium 100 mg Oral cap 1 cap 2 times per day [Active]; losartan potassium 50 mg 1 tab daily [Active]; nifedipine 60 mg Oral TbER 1 tab twice daily [Active]; polyethylene glycol 3350 17 gram/dose Oral powd once daily [Active]; sevelamer carbonate 800 mg Oral tab 1 tab 3 times per day [Active]; terazosin 2 mg Oral cap 1 cap twice daily [Active]; Zofran 4 mg Oral tab 1 tab every 8 hours [Active]; - PMHx: 07:32 "kidney issues"; brain tumor-removed; Hypertension; Migraines; Seizures; dialysis; iw - PSHx: 07:32 brain SX x 2; section; iw - Immunization history:: Client reports having NOT received the Covid vaccine. - Social history:: Smoking status: Patient denies any tobacco usage or history of. Assessment: 09:40 Reassessment: pt states she had a large bowel movement , will send enema home with pt iw to use at home when needed. Vital Signs: 07:31 BP 120 / 81; Pulse 82; Resp 16; Pulse Ox 100% on R/A; Weight 52.16 kg; Height 5 ft. 1 iw in. (154.94 cm); 07:31 Body Mass Index 21.73 (52.16 kg, 154.94 cm) iw ED Course: 06:47 Patient arrived in ED. wm 07:32 Triage completed. iw 07:33 Arm band placed on. iw 07:40 Denia Hassan MD is Attending Physician. sp3 07:50 Beryl Berrios RN is Primary Nurse. iw 08:27 Lalita Mcnulty MD is Referral Physician. sp3 Administered Medications: 08:05 Drug: Fleet Enema (sodium phosphate) 133 ml Route: OR; iw 10:54 Follow up: Response: No adverse reaction iw 09:00 Drug: Magnesium Citrate Liquid 300 ml Route: PO; iw 09:10 Follow up: Response: No adverse reaction iw Outcome: 08:28 Discharge ordered by . sp3 09:04 Discharged to home ambulatory. iw 09:04 Condition: good 09:04 Discharge instructions given to patient, Instructed on discharge instructions, follow up and referral plans. Demonstrated understanding of instructions, follow-up care. 09:49 Patient left the ED. 5 Signatures: Beryl Berrios RN RN iw Sylvia Watters [facility] Tresa Hicks Denia Hassan MD MD sp3
--- NOTE | 2021-06-10 08:28 | EDPHYS ---
Physician Documentation [facility] Name: Shaun Lopez Age: 30 yrs Sex: Female : 1990 Arrival Date: 06/10/2021 Time: 06:47 Bed 11 Private MD: ED Physician Denia Hassan HPI: 06/10 08:22 This 30 yrs old Female presents to ER via Ambulatory with complaints of Abdominal Pain. sp3 08:22 30-year-old female with a history of end-stage renal disease on dialysis, hypertension, sp3 seizures, who presents to the ED for chief complaint constipation and mild abdominal pain. Patient was seen 2 days ago here in the ED by Dr. Rodriguez who performed a full evaluation including laboratory values and a CT scan which demonstrated extensive colonic retention. She was given lactulose and an enema as well. Patient states that she is still has not had a bowel movement. She denies any worsening of her pain, vomiting, back pain, fever, syncope, chest pain, shortness of breath, URI symptoms, any other ROS at this time.. 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 05/07/2021 iw Historical: - Allergies: 07:32 No Known Allergies; iw - Home Meds: 07:32 calcitriol 0.25 mcg Oral cap 1 cap [Active]; carvedilol 25 mg Oral tab 1 tab 2 times iw per day [Active]; clonidine HCl 0.1 mg Oral tab 1 tab every 6 hours [Active]; docusate sodium 100 mg Oral cap 1 cap 2 times per day [Active]; losartan potassium 50 mg 1 tab daily [Active]; nifedipine 60 mg Oral TbER 1 tab twice daily [Active]; polyethylene glycol 3350 17 gram/dose Oral powd once daily [Active]; sevelamer carbonate 800 mg Oral tab 1 tab 3 times per day [Active]; terazosin 2 mg Oral cap 1 cap twice daily [Active]; Zofran 4 mg Oral tab 1 tab every 8 hours [Active]; - PMHx: 07:32 "kidney issues"; brain tumor-removed; Hypertension; Migraines; Seizures; dialysis; iw - PSHx: 07:32 brain SX x 2; section; iw - Immunization history:: Client reports having NOT received the Covid vaccine. - Social history:: Smoking status: Patient denies any tobacco usage or history of. ROS: 08:24 Constitutional: Negative for fever, chills, and weight loss, Eyes: Negative for injury, sp3 pain, redness, and discharge, ENT: Negative for injury, pain, and discharge, Neck: Negative for injury, pain, and swelling, Cardiovascular: Negative for chest pain, palpitations, and edema, Respiratory: Negative for shortness of breath, cough, wheezing, and pleuritic chest pain, Back: Negative for injury and pain, MS/Extremity: Negative for injury and deformity, Skin: Negative for injury, rash, and discoloration, Neuro: Negative for headache, weakness, numbness, tingling, and seizure, Psych: Negative for depression, anxiety, suicide ideation, homicidal ideation, and hallucinations, Allergy/Immunology: Negative for hives, rash, and allergies, Endocrine: Negative for neck swelling, polydipsia, polyuria, polyphagia, and marked weight changes. 08:24 All other systems are negative. Exam: 08:24 Constitutional: This is a well developed, well nourished patient who is awake, alert, sp3 and in no acute distress. Head/Face: Normocephalic, atraumatic. Chest/axilla: Normal chest wall appearance and motion. Nontender with no deformity. No lesions are appreciated. Cardiovascular: Regular rate and rhythm with a normal S1 and S2. No gallops, murmurs, or rubs. Normal PMI, no JVD. No pulse deficits. Respiratory: Lungs have equal breath sounds bilaterally, clear to auscultation and percussion. No rales, rhonchi or wheezes noted. No increased work of breathing, no retractions or nasal flaring. Back: No spinal tenderness. No costovertebral tenderness. Full range of motion. 08:24 Abdomen/GI: Abdomen is soft and nontender with no peritoneal signs including rebound or guarding. Patient is nondistended and there are no clinical signs of obstruction.. Vital Signs: 07:31 BP 120 / 81; Pulse 82; Resp 16; Pulse Ox 100% on R/A; Weight 52.16 kg; Height 5 ft. 1 iw in. (154.94 cm); 07:31 Body Mass Index 21.73 (52.16 kg, 154.94 cm) iw MDM: 07:46 Patient medically screened. sp3 08:25 Data reviewed: vital signs, nurses notes. ED course: Clinically patient has sp3 constipation with no resolution. A repeat work-up from 2 days ago is not warranted. We will try magnesium citrate and a fleets enema today and have patient follow-up with GI. Patient's clinical exam demonstrates no signs of distention or obstruction.. Administered Medications: 08:05 Drug: Fleet Enema (sodium phosphate) 133 ml Route: NM; iw 10:54 Follow up: Response: No adverse reaction iw 09:00 Drug: Magnesium Citrate Liquid 300 ml Route: PO; iw 09:10 Follow up: Response: No adverse reaction iw Disposition Summary: 06/10/21 08:28 Discharge Ordered Location: Home sp3 Condition: Stable sp3 Diagnosis - Constipation, unspecified sp3 Followup: sp3 - With: Lalita Mcnulty MD - When: Upon discharge from the Emergency Department - Reason: Recheck today's complaints Discharge Instructions: - Discharge Summary Sheet sp3 - Constipation, Adult sp3 Forms: - Medication Reconciliation Form sp3 - Thank You Letter sp3 - Antibiotic Education sp3 - Prescription Opioid Use sp3 Signatures: Beryl Berrios, RN RN iw Denia Hassan MD MD sp3
[2021-06-10 09:55] VITALS: BP 120/81; O2SAT 100
== END 2021-06-10 09:49 | disposition home or self-care (01) ==
LOC: ER 06:44
DX: K59.00 Constipation, unspecified (principal); I10 Essential (primary) hypertension
CPT/HCPCS: 99282

== ENCOUNTER 2023-05-18 19:19 | Emergency (ER) | payer OTHER ==
--- OUTSIDE RECORDS SUMMARY | 2023-05-18 19:27 | XMS REPORT | Continuity of Care Document ---
:1990 Author Organization [facility] t Address [address] [facility] [address] [place] [address] Care Team Providers Name Role Phone Vignesh Rivas Primary Care Physician Marce Lara RN Attending Clinician Unavailable ALYSSA HERRING Attending Clinician Unavailable LAY BROWN Attending Clinician Unavailable CHELITA QUEZADA Attending Clinician Unavailable VALERIE BEST Attending Clinician Unavailable Zeke Mccall DO Attending Clinician Terri Guy Attending Clinician TERRI BRAN Attending Clinician Unavailable Karolina Mas RN Attending Clinician Unavailable Doctor Unassigned, [place] Attending Clinician Unavailable VIGNESH REGALADO Attending Clinician Unavailable Benigno Ya MD Attending Clinician Kaushal NOLAN, Yasmine Attending Clinician REINA PAUL Attending Clinician Unavailable Reina Paul MD Attending Clinician Vignesh Rivas Attending Clinician Naeem Sheets Attending Clinician Solis Arthur Attending Clinician ALYSSA HERRING Admitting Clinician Unavailable YESSICA GALVEZ Admitting Clinician Unavailable Payers Payer Name Policy Type Policy Number Effective Date Expiration Date Mike SAEZ [id number] 2017 00:00:00 Problems Condition Condition Condition Status Onset Resolution Last Treating Co mments Source Name Details Category Date Date Treatment Clinician Date CKD CKD Disease Active Methodi (chronic (chronic 02-09 kidney kidney 00:00: Hospita disease) disease) 00 l stage 5, stage 5, GFR less GFR less than 15 than 15 ml/min ml/min Pre-transp Pre-transp Disease Active M ethodi lant lant 02-09 st evaluation evaluation 00:00: [facility] for kidney for kidney 00 l transplant transplant Essential Essential Disease Active Met hodi hypertensi hypertensi 02-09 st on on 00:00: Hospita 00 l Dependence Dependence Disease Active M ethodi on on 02-09 hemodialys hemodialys 00:00: Ho spita is is 00 l FSGS FSGS Disease Active Methodi (focal (focal 02-09 segmental segmental 00:00: Hosp gokul glomerulos glomerulos 00 l clerosis) clerosis) Hypertensi Hypertensi Disease Active M ethodi ve ve 01-08 nephroscle nephroscle 00:00: Ho spita rosis rosis 00 l History of History of Disease Active 2020-[address] migraine [facility] 2[facility]06 [facility] headaches headaches 00:[facility] 00 Center Malignant Malignant Disease Active 2020-[address] [facility] hypertensi hypertensi 1-08 [facility] on on 00:00: Medical 00 Center Thrombocyt Thrombocyt Disease Active 2020-[address] openia openia 1-06 [facility] Center Anemia Anemia Disease Active 2020-[address] [facility] 1-06 [facility] 00:00: Medical 00 [place] Headache Headache Disease Active 2020-07 [facility] Acute Acute Disease Recurre 2020-[address] [facility] renal renal nce 1-06 [facility] failure failure 00:00: Medical (ARF) (ARF) 00 Center Thrombocyt Thrombocyt Disease Recurre 2020-[address] openia openia nce 1- [facility] 00:[facility]: [facility] 00 Center HTN HTN Disease Active 2020-[address] [facility] (hypertens (hypertens 1-06 [facility] k[facility] ion) ion) 00:00: Medical 00 Center Low back Low back Disease Active 2017-07 Unive rs pain pain 2-29 ity of 00:00: [place] [address] Medical Branch S/P S/P Disease Active 2017-07 Univers 2-24 ity of section section 00:00: [address] Branch Chronic Chronic Disease Active 2017-07 Univers hypertensi hypertensi 2-19 it y of on with on with 00:00: [place] superimpos superimpos 00 Me dical ed ed Branch preeclamps preeclamps ia ia 34 weeks 34 weeks Disease Active 2017-07 Unive rs gestation gestation 2-17 ity of of of 00:00: [place] 00 [facility] Branch Obesity Obesity Disease Active 2017-07 Univers (BMI (BMI 2-11 ity of 30-39.9) 30-39.9) 00:00: [address] Branch 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-07 Unive rs Pap smear Pap smear 1-27 ity of of cervix of cervix 00:00: [place] [address] Branch 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 8-06 it y of a a 00:00: [address] Branch Asymptomat Asymptomat Disease Active U nivers [...] 1-11 it y of on on 00:00: [place] [address] Medical Branch Seizure Seizure Disease Active Univers disorder disorder ity of [facility] ESRD (end ESRD (end Disease Recurre [facility] stage stage nce [facility] renal renal Medical disease) disease) Center on on dialysis dialysis Allergies, Adverse Reactions, Alerts Allergy Allergy Status Severity Reaction(s) Onset Inactive Treating Comm ents Source Name Type Date Date Clinician NO KNOWN Drug Active [facility] ALLERGIE Class ity of [facility] NO KNOWN Allergy Active [facility] Social History Social Habit Start Date Stop Date Quantity Comments Source Exposure to Not sure University of SARS-CoV-2 (event) [facility] Sexual orientation [facility] History of Social 2022-01-17 2022-01-[address] function 00:00:00 00:00:00 Hospital Tobacco use and 2022-01-08 2022-01-08 Smokeless Druze exposure 00:00:00 00:00:00 tobacco non-user Hospital Alcohol intake 2020-01-23 2020-01-23 Current University of 00:00:00 00:00:00 non-drinker of [facility] alcohol [place] (finding) Sex Assigned At [birth year] [facility] ke 00:00:00 00:00:00 Medical Center Smoking Status Start Date Stop Date Source Never smoked tobacco [facility] Medications Ordered Filled Start Stop Current Ordering Indication Dosage Frequency Signature Comments Components Source Medication Medication Date Date Medication? Clinician (SIG) Name Name calcitrioL Yes .25ug QD Take 0.25 M ethodi (ROCALTROL) 7-[address] 0.25 MCG 14:31: mouth Hospita capsule 02 daily. l carvediloL Yes 12.5mg Q.5D Take 12.5 Methodi (COREG) 7-[address] 12.5 MG 14:31: mouth 2 Hospita tablet 02 (two) l times a day with meals. clonIDINE Yes .1mg Q.25D Take 0.1 Met hodi (CATAPRES) 7-[address] 0.1 MG 14:31: mouth 4 Hospita tablet 02 (four) l times a day as needed for high blood pressure. dicyclomine Yes 20mg Q.25D Take 20 mg Methodi (BENTYL) 20 7-[address] mg tablet 14:31: (four) Hospit a 02 times a l day. losartan Yes 50mg QD Take 50 mg Met hodi (COZAAR) 50 7-[address] MG tablet 14:31: daily. Hospit a 02 l NIFEdipine Yes 60mg QD Take 60 mg M ethodi CC (ADALAT 7-[address] CC) 60 MG 14:31: daily. Hospit a 24 hr 02 l tablet sevelamer Yes 800mg Q.[id number] Take 800 Methodi (RENVELA) 7-[id number] 800 mg 14:31: 3D mouth 3 Hospita tablet 02 (three) l times a day with meals. terazosin Yes 2mg Q.5D Take 2 mg Met hodi (HYTRIN) 2 7-[address] MG capsule 14:31: (two) Hospit a 02 times a l day. cloNIDine 2020-07 Yes .1mg Take 0.[address] HCL 2-03 mg by [facility] (CATAPRES) 13:17: mouth 3 Medi aviva 0.1 MG 27 (three) Center tablet times daily as needed If SBP>140 . polyethylen 2020-07 Yes 17g Take [address] e glycol 2-03 by mouth [facility] (GLYCOLAX) 13:17: daily as Med ical 17 gram 27 needed. Center packet sevelamer 2020-07 Yes 800mg Take [address] (RENVELA) 2-03 mg by [facility] 800 mg 13:17: mouth 3 Medical tablet 27 (three) Center times daily with meals. epoetin 2020-07 Yes anemia in 4000U Inject [address] jana-epbx 1-25 chronic mL (4,000 Ivet kes (RETACRIT) 00:00: kidney Units Medi aviva 4,000 00 disease total) Center unit/mL subcutaneo Soln usly 3 injection (three) times a week at bedtime TUE/TUE/SA T. calcitrioL 2020-07- No .25ug QD Take [address] (ROCALTROL) 1-25 11-25 capsule Luke s 0.25 MCG 00:00: 23:59 (0.25 mcg Med ical capsule 00 :00 total) by Center mouth daily. losartan 2020-07- No 50mg QD Take [address] (COZAAR) 50 1-25 11-25 tablet (50 L ukes MG tablet 00:00: 23:59 mg total) Me dical 00 :00 by mouth Center daily. NIFEdipine 2020-07- No 60mg Q.5D Take [address] (PROCARDIA- 07-27 tablet (60 L ukes XL) 60 MG 00:00: 23:59 mg total) Me dical (OSM) 24 hr 00 :00 by mouth 2 Ce nter tablet (two) times daily. carvediloL 2020-07- No 25mg Q.5D Take [address] (COREG) 25 07-27 tablet (25 Ivet kes MG tablet 00:00: 23:59 mg total) Me dical 00 :00 by mouth 2 Center (two) times daily. terazosin 2020-07- No 2mg Q.5D Take 1 [facility]I S t (HYTRIN) 2 07-27 capsule (2 Ivet kes MG capsule 00:00: 23:59 mg total) M edical 00 :00 by mouth 2 Center (two) times daily. labetaloL 2020-07 Yes 100mg Q.5D Take [address] (NORMODYNE) 1-16 mg by [facility] 100 MG 16:48: mouth 2 Medical tablet 39 (two) Center times daily. lisinopriL 2020-0 Yes [id number] 40mg Take 1 U nivers 40 mg 9-28 tablet by ity of tablet 00:00: mouth [place] 00 daily. Medical Branch hydroCHLORO 2020-0 Yes [id number] 25mg Take 1 Univers thiazide 25 9-28 tablet by ity of mg tablet 00:00: mouth [place] 00 daily. Medical Branch amLODIPine 2020-0 Yes [id number] 10mg Take 1 U nivers 10 mg 9-28 tablet by ity of tablet 00:00: mouth [place] 00 daily. Medical Branch lisinopriL 2020-0 Yes [id number] 40mg Take 1 U nivers 40 mg 9-28 tablet by ity of tablet 00:00: mouth [place] 00 daily. Medical Branch hydroCHLORO 2020-0 Yes [id number] 25mg Take 1 Univers thiazide 25 9-28 tablet by ity of mg tablet 00:00: mouth [place] 00 daily. Medical Branch amLODIPine 2020-0 Yes [id number] 10mg Take 1 U nivers 10 mg 9-28 tablet by ity of tablet 00:00: mouth [place] 00 daily. Medical Branch lisinopriL 2020-0 Yes [id number] 40mg Take 1 U nivers 40 mg 9-28 tablet by ity of tablet 00:00: mouth [place] 00 daily. Medical Branch hydroCHLORO 2020-0 Yes [id number] 25mg Take 1 Univers thiazide 25 9-28 tablet by ity of mg tablet 00:00: mouth [place] 00 daily. Medical Branch amLODIPine 2020-0 Yes [id number] 10mg Take 1 U nivers 10 mg 9-28 tablet by ity of tablet 00:00: mouth [place] 00 daily. Medical Branch lisinopriL 2020-0 Yes [id number] 40mg Take 1 U nivers 40 mg 9-28 tablet by ity of tablet 00:00: mouth [place] 00 daily. Medical Branch hydroCHLORO 2020-0 Yes [id number] 25mg Take 1 Univers thiazide 25 9-28 tablet by ity of mg tablet 00:00: mouth [place] 00 daily. Medical Branch amLODIPine 2019-0 Yes [id number] 10mg Take 1 U nivers 10 mg 9-28 tablet by ity of tablet 00:00: mouth [place] 00 daily. Medical Branch albuterol 2019-0 Yes [id number] 2{puff} Inhale 2 Univers 90 7-22 Puffs ity of mcg/actuati 00:00: every 6 [place] as on inhaler 00 (six) Medical hours as Branch needed for Wheezing or Shortness of Breath. albuterol 2019-0 Yes [id number] 2{puff} Inhale 2 Univers 90 7-22 Puffs ity of mcg/actuati 00:00: every 6 [place] as on inhaler 00 (six) Medical hours as Branch needed for Wheezing or Shortness of Breath. albuterol 2019-0 Yes [id number] 2{puff} Inhale 2 Univers 90 7-22 Puffs ity of mcg/actuati 00:00: every 6 [place] on inhaler 00 (six) Medical hours as Branch needed for Wheezing or Shortness of Breath. albuterol 2019-0 Yes [id number] 2{puff} Inhale 2 Univers 90 7-22 Puffs ity of mcg/actuati 00:00: every 6 [place] on inhaler 00 (six) Medical hours as Branch needed for Wheezing or Shortness of Breath. albuterol 2019-0 Yes [id number] 2{puff} Inhale 2 Univers 90 7-22 Puffs ity of mcg/actuati 00:00: every 6 [place] on inhaler 00 (six) Medical hours as Branch needed for Wheezing or Shortness of Breath. albuterol 2020-0 Yes [id number] 2{puff} Inhale 2 Univers 90 7-22 Puffs ity of mcg/actuati 00:00: every 6 [place] on inhaler 00 (six) Medical hours as Branch needed for Wheezing or Shortness of Breath. albuterol 2019-0 Yes [id number] 2{puff} Inhale 2 Univers 90 7-22 Puffs ity of mcg/actuati 00:00: every 6 [place] on inhaler 00 (six) Medical hours as Branch needed for Wheezing or Shortness of Breath. albuterol 2019-0 Yes [id number] 2{puff} Inhale 2 Univers 90 7-22 Puffs ity of mcg/actuati 00:00: every 6 [place] on inhaler 00 (six) Medical hours as Branch needed for Wheezing or Shortness of Breath. lisinopril 2019-0 Yes [id number] 20mg Take 1 U nivers 20 mg 5-14 tablet by ity of tablet 00:00: mouth [place] 00 daily. Medical Branch lisinopril 2019-0 Yes [id number] 20mg Take 1 U nivers 20 mg 5-14 tablet by ity of tablet 00:00: mouth [place] 00 daily. [facility] Branch lisinopril 2020-0 Yes [id number] 20mg Take 1 U nivers 20 mg 5-14 tablet by ity of tablet 00:00: mouth [place] 00 daily. [facility] Branch lisinopril 2019-0 2020- No [id number] 20mg Take 1 Univers 20 mg 5-14 - tablet by ity of tablet 00:00: 00:00 mouth [place] 00 :00 daily. [facility] Branch diazePAM 2019-0 2020- No 10mg 10 mg, Univer s (VALIUM) 11-01 Oral, ity of tablet 10 23:00: 22:20 ONCE, 1 [place] mg 00 :00 dose, Fri Medical 11/02/19 at Branch 1800, [place] HYDROcodone 2020-0 2020- No 1{tbl} 1 tablet, Univers -acetaminop [...] Medical 11/02/19 Branch at 1745, DALE
Fa culty member approving Restricted medication : JETHRO SCHAEFFER traMADol 50 2020-0 Yes [id number] 50mg Take 1 Univers mg tablet 5-01 tablet by ity o f 00:00: mouth [place] 00 every 6 Medical (six) Branch hours as needed for Pain (scale 7-10). ketorolac 2020-0 Yes [id number] 10mg Take 1 Un davi 10 mg 5-01 tablet by ity of tablet 00:00: mouth [place] 00 every 6 Medical (six) Branch hours as needed for Pain (scale 7-10). cyclobenzap 2020-0 Yes [id number] 5mg Take 1 Univers rine 5 mg 5-01 tablet by ity o f tablet 00:00: mouth 3 [place] 00 (three) Medical times Branch daily as needed for Muscle Spasms. lidocaine 5 2020-0 Yes [id number] 1{patch Apply 1 Univers % (700 5-01 } Patch to ity of mg/patch) 00:00: area(s) [place] patch 00 every 12 Medical (twelve) Branch hours as needed for Localized pain. traMADol 50 2020-0 Yes [id number] 50mg Take 1 Univers mg tablet 5-01 tablet by ity o f 00:00: mouth [place] 00 every 6 Medical (six) Branch hours as needed for Pain (scale 7-10). ketorolac 2020-0 Yes [id number] 10mg Take 1 Un davi 10 mg 5-01 tablet by ity of tablet 00:00: mouth [place] 00 every 6 Medical (six) Branch hours as needed for Pain (scale 7-10). cyclobenzap 2020-0 Yes [id number] 5mg Take 1 Univers rine 5 mg 5-01 tablet by ity o f tablet 00:00: mouth 3 [place] 00 (three) Medical times Branch daily as needed for Muscle Spasms. lidocaine 5 2020-0 Yes [id number] 1{patch Apply 1 Univers % (700 5-01 } Patch to ity of mg/patch) 00:00: area(s) [place] patch 00 every 12 Medical (twelve) Branch hours as needed for Localized pain. traMADol 50 2020-0 Yes [id number] 50mg Take 1 Univers mg tablet 5-01 tablet by ity o f 00:00: mouth [place] 00 every 6 Medical (six) Branch hours as needed for Pain (scale 7-10). ketorolac 2020-0 Yes [id number] 10mg Take 1 Un davi 10 mg 5-01 tablet by ity of tablet 00:00: mouth [place] 00 every 6 Medical (six) Branch hours as needed for Pain (scale 7-10). cyclobenzap 2020-0 Yes [id number] 5mg Take 1 Univers rine 5 mg 5-01 tablet by ity o f tablet 00:00: mouth 3 [place] 00 (three) Medical times Branch daily as needed for Muscle Spasms. lidocaine 5 2020-0 Yes [id number] 1{patch Apply 1 Univers % (700 5-01 } Patch to ity of mg/patch) 00:00: area(s) [place] patch 00 every 12 Medical (twelve) Branch hours as needed for Localized pain. traMADol 50 2020-0 Yes [id number] 50mg Take 1 Univers mg tablet 5-01 tablet by ity o f 00:00: mouth [place] 00 every 6 Medical (six) Branch hours as needed for Pain (scale 7-10). ketorolac 2020-0 Yes [id number] 10mg Take 1 Un davi 10 mg 5-01 tablet by ity of tablet 00:00: mouth [place] 00 every 6 Medical (six) Branch hours as needed for Pain (scale 7-10). cyclobenzap 2020-0 Yes [id number] 5mg Take 1 Univers rine 5 mg 5-01 tablet by ity o f tablet 00:00: mouth 3 [place] 00 (three) Medical times Branch daily as needed for Muscle Spasms. lidocaine 5 2020-0 Yes [id number] 1{patch Apply 1 Univers % (700 5-01 } Patch to ity of mg/patch) 00:00: area(s) [place] patch 00 every 12 Medical (twelve) Branch hours as needed for Localized pain. traMADol 50 2020-0 Yes [id number] 50mg Take 1 Univers mg tablet 5-01 tablet by ity o f 00:00: mouth [place] 00 every 6 Medical (six) Branch hours as needed for Pain (scale 7-10). ketorolac 2020-0 Yes [id number] 10mg Take 1 Un davi 10 mg 5-01 tablet by ity of tablet 00:00: mouth [place] 00 every 6 Medical (six) Branch hours as needed for Pain (scale 7-10). cyclobenzap 2020-0 Yes [id number] 5mg Take 1 Univers rine 5 mg 5-01 tablet by ity o f tablet 00:00: mouth 3 [place] 00 (three) Medical times Branch daily as needed for Muscle Spasms. lidocaine 5 2020-0 Yes [id number] 1{patch Apply 1 Univers % (700 5-01 } Patch to ity of mg/patch) 00:00: area(s) [place] patch 00 every 12 Medical (twelve) Branch hours as needed for Localized pain. traMADol 50 2020-0 Yes [id number] 50mg Take 1 Univers mg tablet 5-01 tablet by ity o f 00:00: mouth [place] 00 every 6 Medical (six) Branch hours as needed for Pain (scale 7-10). ketorolac 2020-0 Yes [id number] 10mg Take 1 Un davi 10 mg 5-01 tablet by ity of tablet 00:00: mouth [place] 00 every 6 Medical (six) Branch hours as needed for Pain (scale 7-10). cyclobenzap 2020-0 Yes [id number] 5mg Take 1 Univers rine 5 mg 5-01 tablet by ity o f tablet 00:00: mouth 3 [place] 00 (three) Medical times Branch daily as needed for Muscle Spasms. lidocaine 5 2020-0 Yes [id number] 1{patch Apply 1 Univers % (700 5-01 } Patch to ity of mg/patch) 00:00: area(s) [place] patch 00 every 12 Medical (twelve) Branch hours as needed for Localized pain. traMADol 50 2020-0 Yes [id number] 50mg Take 1 Univers mg tablet 5-01 tablet by ity o f 00:00: mouth [place] 00 every 6 Medical (six) Branch hours as needed for Pain (scale 7-10). ketorolac 2020-0 Yes [id number] 10mg Take 1 Un davi 10 mg 5-01 tablet by ity of tablet 00:00: mouth [place] 00 every 6 Medical (six) Branch hours as needed for Pain (scale 7-10). cyclobenzap 2020-0 Yes [id number] 5mg Take 1 Univers rine 5 mg 5-01 tablet by ity o f tablet 00:00: mouth 3 [place] 00 (three) Medical times Branch daily as needed for Muscle Spasms. lidocaine 5 2020-0 Yes [id number] 1{patch Apply 1 Univers % (700 5-01 } Patch to ity of mg/patch) 00:00: area(s) [place] patch 00 every 12 Medical (twelve) Branch hours as needed for Localized pain. traMADol 50 2020-0 Yes [id number] 50mg Take 1 Univers mg tablet 5-01 tablet by ity o f 00:00: mouth [place] 00 every 6 Medical (six) Branch hours as needed for Pain (scale 7-10). ketorolac 2020-0 Yes [id number] 10mg Take 1 Un davi 10 mg 5-01 tablet by ity of tablet 00:00: mouth [place] 00 every 6 Medical (six) Branch hours as needed for Pain (scale 7-10). cyclobenzap 2020-0 Yes [id number] 5mg Take 1 Univers rine 5 mg 5-01 tablet by ity o f tablet 00:00: mouth 3 [place] 00 (three) Medical times Branch daily as needed for Muscle Spasms. lidocaine 5 2020-0 Yes [id number] 1{patch Apply 1 Univers % (700 5-01 } Patch to ity of mg/patch) 00:00: area(s) [place] patch 00 every 12 Medical (twelve) Branch hours as needed for Localized pain. traMADol 50 2020-0 Yes [id number] 50mg Take 1 Univers mg tablet 5-01 tablet by ity o f 00:00: mouth [place] 00 every 6 Medical (six) Branch hours as needed for Pain (scale 7-10). ketorolac 2020-0 Yes [id number] 10mg Take 1 Un davi 10 mg 5-01 tablet by ity of tablet 00:00: mouth [place] 00 every 6 Medical (six) Branch hours as needed for Pain (scale 7-10). cyclobenzap 2020-0 Yes [id number] 5mg Take 1 Univers rine 5 mg 5-01 tablet by ity o f tablet 00:00: mouth 3 [place] 00 (three) Medical times Branch daily as needed for Muscle Spasms. lidocaine 5 2020-0 Yes [id number] 1{patch Apply 1 Univers % (700 5-01 } Patch to ity of mg/patch) 00:00: area(s) [place] patch 00 every 12 Medical (twelve) Branch hours as needed for Localized pain. traMADol 50 2020-0 Yes [id number] 50mg Take 1 Univers mg tablet 5-01 tablet by ity o f 00:00: mouth [place] 00 every 6 Medical (six) Branch hours as needed for Pain (scale 7-10). ketorolac 2020-0 Yes [id number] 10mg Take 1 Un davi 10 mg 5-01 tablet by ity of tablet 00:00: mouth [place] 00 every 6 Medical (six) Branch hours as needed for Pain (scale 7-10). cyclobenzap 2020-0 Yes [id number] 5mg Take 1 Univers rine 5 mg 5-01 tablet by ity o f tablet 00:00: mouth 3 [place] 00 (three) Medical times Branch daily as needed for Muscle Spasms. lidocaine 5 2020-0 Yes [id number] 1{patch Apply 1 Univers % (700 5-01 } Patch to ity of mg/patch) 00:00: area(s) [place] patch 00 every 12 Medical (twelve) Branch hours as needed for Localized pain. traMADol 50 2020-0 Yes [id number] 50mg Take 1 Univers mg tablet 5-01 tablet by ity o f 00:00: mouth [place] 00 every 6 Medical (six) Branch hours as needed for Pain (scale 7-10). ketorolac 2020-0 Yes [id number] 10mg Take 1 Un davi 10 mg 5-01 tablet by ity of tablet 00:00: mouth [place] 00 every 6 Medical (six) Branch hours as needed for Pain (scale 7-10). cyclobenzap 2020-0 Yes [id number] 5mg Take 1 Univers rine 5 mg 5-01 tablet by ity o f tablet 00:00: mouth 3 [place] 00 (three) Medical times Branch daily as needed for Muscle Spasms. lidocaine 5 2020-0 Yes [id number] 1{patch Apply 1 Univers % (700 5-01 } Patch to ity of mg/patch) 00:00: area(s) [place] patch 00 every 12 Medical (twelve) Branch hours as needed for Localized pain. traMADol 50 2020-0 Yes [id number] 50mg Take 1 Univers mg tablet 5-01 tablet by ity o f 00:00: mouth [place] 00 every 6 Medical (six) Branch hours as needed for Pain (scale 7-10). ketorolac 2019-0 Yes [id number] 10mg Take 1 Un davi 10 mg 5-01 tablet by ity of tablet 00:00: mouth [place] 00 every 6 Medical (six) Branch hours as needed for Pain (scale 7-10). cyclobenzap 2019-0 Yes [id number] 5mg Take 1 Univers rine 5 mg 5-01 tablet by ity o f tablet 00:00: mouth 3 [place] 00 (three) Medical times Branch daily as needed for Muscle Spasms. lidocaine 5 2019- Yes [id number] 1{patch Apply 1 Univers % (700 5-01 } Patch to ity of mg/patch) 00:00: area(s) [place] patch 00 every 12 Medical (twelve) Branch hours as needed for Localized pain. predniSONE 2020- No [id number] 40mg Take 2 Univers 20 mg 5-01 05-06 tablets by ity of tablet 00:00: 04:59 mouth [place] 00 :00 every Medical morning Branch for 4 days. chlorthalid 2018-07 Yes [id number] 25mg Take 1 Univers one 25 mg 1-11 tablet by ity o f tablet 00:00: mouth [place] 00 daily. Medical Branch chlorthalid 2018-07 Yes [id number] 25mg Take 1 Univers one 25 mg 1-11 tablet by ity o f tablet 00:00: mouth [place] 00 daily. Medical Branch chlorthalid 2018-07 Yes [id number] 25mg Take 1 Univers one 25 mg 1-11 tablet by ity o f tablet 00:00: mouth [place] 00 daily. Medical Branch chlorthalid 2018-07 Yes [id number] 25mg Take 1 Univers one 25 mg 1-11 tablet by ity o f tablet 00:00: mouth [place] 00 daily. Medical Branch chlorthalid 2018-07 Yes [id number] 25mg Take 1 Univers one 25 mg 1-11 tablet by ity o f tablet 00:00: mouth [place] 00 daily. Medical Branch chlorthalid 2018-07 2020- No [id number] 25mg Take 1 Univers one 25 mg 1-11 09-28 tablet by ity of tablet 00:00: 00:00 mouth [place] 00 :00 daily. Medical Branch Immunizations Ordered Filled Date Status Comments Source Immunization Name Immunization Name Influenza Virus 2019-04-05 Completed Universit y of Vaccine Quad .5 mL 00:00:00 [facility] IM 6+ MO Branch Influenza Virus 2019-04-05 Completed Universit y of Vaccine 00:00:00 [facility] Influenza Virus 2019-04-05 Completed Universit y of Vaccine Quad .5 mL 00:00:00 [facility] 6+ MO Branch Influenza Virus 2019-04-05 Completed Universit y of Vaccine 00:00:00 [facility] Influenza Virus 2019-04-05 Completed Universit y of Vaccine Quad .5 mL 00:00:00 [facility] 6+ MO Branch Influenza Virus 2019-04-05 Completed Universit y of Vaccine 00:00:00 [facility] Influenza Virus 2019-04-05 Completed Universit y of Vaccine Quad .5 mL 00:00:00 [facility] 6+ MO Branch Influenza Virus 2019-04-05 Completed Universit y of Vaccine 00:00:00 [facility] Influenza Virus 2019-04-05 Completed Universit y of Vaccine Quad .5 mL 00:00:00 [facility] 6+ MO Branch Influenza Virus 2019-04-05 Completed Universit y of Vaccine 00:00:00 [facility] Influenza Virus 2019-04-05 Completed Universit y of Vaccine Quad .5 mL 00:00:00 [facility] 6+ MO Branch Influenza Virus 2019-04-05 Completed Universit y of Vaccine 00:00:00 [facility] Influenza Virus 2019-04-05 Completed Universit y of Vaccine Quad .5 mL 00:00:00 [facility] 6+ MO Branch Influenza Virus 2019-04-05 Completed Universit y of Vaccine 00:00:00 [facility] Influenza Virus 2019-04-05 Completed Universit y of Vaccine Quad .5 mL 00:00:00 [place] [facility] Influenza Virus 2019-04-05 Completed Universit y of Vaccine 00:00:00 [facility] Influenza Virus 2019-04-05 Completed Universit y of Vaccine Quad .5 mL 00:00:00 [facility] 6+ MO Branch Influenza Virus 2019-04-05 Completed Universit y of Vaccine 00:00:00 [facility] Influenza Virus 2019-04-05 Completed Universit y of Vaccine Quad .5 mL 00:00:00 [facility] 6+ MO Branch Influenza Virus 2019-04-05 Completed Universit y of Vaccine 00:00:00 [facility] Influenza Virus Unknown Completed Universit y of Vaccine Quad .5 mL [facility] 6+ MO Branch (FLUZONE/FLULAVAL/F LUARIX) Influenza Virus Unknown Completed Universit y of Vaccine [facility] Virus [facility] 6+ [facility] (FLUZONE/FLULAVAL/F LUARIX) [facility] Virus [facility] Meningococcal Unknown Completed [facility] Vital Signs Vital Name Observation Time Observation [...] 2020-01-23 13:37:00 150 mm[Hg] Univer sity of [facility] Diastolic blood 2020-01-23 13:37:00 111 mm[Hg] Unive rsity of [facility] Heart rate 2020-01-23 13:36:00 77 /min [facility] Body temperature 2020-01-23 13:36:00 36.78 Leigh Ann Univ ersity of [facility] Respiratory rate 2020-01-23 13:36:00 16 /min [facility] saturation in 2020-01-23 13:36:00 98 /min [facility] Arterial blood by [facility] Pulse oximetry Branch Systolic blood 2020-01-23 13:37:00 150 mm[Hg] Univer sity of [facility] Diastolic blood 2020-01-23 13:37:00 111 mm[Hg] Unive rsity of [facility] Heart rate 2020-01-23 13:36:00 77 /min Universi ty [facility] Body temperature 2020-01-23 13:36:00 36.78 Leigh Ann Univ ersity of [facility] Respiratory rate 2020-01-23 13:36:00 16 /min [facility] O[facility] saturation in 2020-01-23 13:36:00 98 /min University of Arterial blood by [facility] Pulse oximetry Branch Systolic blood 2019-11-02 22:25:00 172 mm[Hg] Univer sity of pressure [facility] Diastolic blood 2019-11-02 22:25:00 119 mm[Hg] Unive rsity of pressure [facility] Heart rate 2019-11-02 22:25:00 71 /min Universi ty of [facility] Body temperature 2019-11-02 21:14:00 36.83 Leigh Ann Univ ersity of [facility] Respiratory rate 2019-11-02 21:14:00 16 /min Univ ersity of [facility] Body weight 2019-11-02 21:14:00 63.997 kg Universi ty of [facility] BMI 2019-11-02 21:14:00 26.66 kg/m2 Universi ty of [facility] [place] Oxygen saturation in 2019-11-02 21:14:00 97 /min University of Arterial blood by [facility] Pulse oximetry Branch Systolic blood 2019-11-02 22:25:00 172 mm[Hg] Univer sity of pressure [facility] Diastolic blood 2019-11-02 22:25:00 119 mm[Hg] Unive rsity of pressure [facility] Heart rate 2019-11-02 22:25:00 71 /min Universi ty of [facility] Body temperature 2019-11-02 21:14:00 36.83 Leigh Ann Univ ersity of [facility] [place] Respiratory rate 2019-11-02 21:14:00 16 /min Univ ersity of [facility] Body weight 2019-11-02 21:14:00 63.997 kg Universi ty of [facility] [place] BMI 2019-11-02 21:14:00 26.66 kg/m2 Universi ty of [facility] Oxygen saturation in 2019-11-02 21:14:00 97 /min University of Arterial blood by [facility] Pulse oximetry Branch Systolic blood 2021-05-20 11:41:00 146 mm[Hg] [facility] Diastolic blood 2021-05-20 11:41:00 93 mm[Hg] [facility] Heart rate 2021-05-20 11:41:00 75 /min [facility] Body temperature 2021-05-20 11:41:00 37 Leigh Ann [facility] Respiratory rate 2021-05-20 11:41:00 18 /min [facility] Oxygen saturation in 2021-05-20 11:41:00 99 /min [facility] Arterial blood by [facility] Pulse oximetry Body weight 2021-05-19 15:15:00 56.1 kg [facility] BMI 2021-05-19 15:15:00 23.37 kg/m2 [facility] Body height 2021-05-11 15:42:00 154.9 cm [facility] Procedures Procedure Date / Time Performing Clinician Source Performed BASIC METABOLIC PANEL 2021-05-20 04:42:00 Vaibhav Law [facility] () [place] IR TUNNELED CATHETER 2021-05-19 10:58:00 Anastacia Raygoza [facility] INSERTION [place] SCREEN, URINE 2021-05-19 09:42:00 Jessica Hickman [facility] HEMODIALYSIS INPATIENT 2021-05-19 08:57:33 Anastacia Raygoza [facility] BASIC METABOLIC PANEL 2021-05-19 03:57:00 Vaibhav Law [facility] () [place] BASIC METABOLIC PANEL 2021-05-18 05:26:00 Vaibhav Law [facility] () [place] HEMODIALYSIS INPATIENT 2021-05-16 13:24:13 Anastacia Raygoza [facility] CBC W/PLT COUNT & AUTO 2021-05-16 05:23:00 Ajit Nash [facility] DIFFERENTIAL [place] BASIC METABOLIC PANEL 2021-05-16 05:23:00 Ajit Nash [facility] () [place] CBC W/PLT COUNT & AUTO 2021-05-16 05:23:00 Sridhar Nashhibbing Mariano [facility] DIFFERENTIAL [place] HEMOGLOBIN AND 2021-05-15 21:46:00 Anastacia Raygoza [facility] HEMATOCRIT Center US RENAL BIOPSY 2021-05-15 15:20:00 Benigno Roe [facility] TISSUE EXAM 2021-05-15 15:03:00 SaadAjit [facility] CBC W/PLT COUNT & AUTO 2021-05-15 04:41:00 [facility] BASIC METABOLIC PANEL 2021-05-15 04:41:00 [facility] PROTHROMBIN TIME/INR 2021-05-15 04:41:00 Anastacia Raygoza [facility] CBC W/PLT COUNT & AUTO 2021-05-15 04:41:00 [facility] HEMOD[facility]YSIS INPATIENT 2021-05-14 11:57:00 Jaret Anastacia First[facility] CBC W/PLT COUNT & AUTO 2021-05-14 04:34:00 [facility]ad [facility] BASIC METABOLIC PANEL 2021-05-14 04:34:00 Saad[facility] CBC W/PLT COUNT & AUTO 2021-05-14 04:34:00 [facility] CALCIUM, IONIZED 2021-05-13 04:14:00 [facility] COMPREHENSIVE METABOLIC 2021-05-13 04:14:00 [facility] PANEL Center MAGNESIUM 2021-05-13 04:14:00 [facility] PHOSPHORUS 2021-05-13 04:14:00 [facility] CBC W/PLT COUNT & AUTO 2021-05-13 04:14:00 [facility] VITAMIN D, 25-HYDROXY 2021-05-13 04:14:00 [facility] CBC W/PLT COUNT & AUTO 2021-05-13 04:14:[address] [facility] [address] BRAIN WITHOUT IV 2021-05-12 21:53:00 [facility] CONTRAST Center METANEPHRINES 2021-05-12 05:54:00 Anastacia Raygozad [facility] CBC W/PLT COUNT & AUTO 2021-05-12 05:53:00 Ajit Nash [facility] BASIC METABOLIC PANEL 2021-05-12 05:53:00 Ajit Nash [facility] (7) [place] RENIN, PLASMA 2021-05-12 05:53:00 Jaret Anastacia Khquan [facility] ALDOSTERONE 2021-05-12 05:53:00 Jaret [facility] CORTISOL 2021-05-12 05:53:00 Jaret, [facility] CBC W/PLT COUNT & AUTO 2021-05-12 05:53:00 Sridhar Nashhibbing Mariano [facility] ECG 12-LEAD 2021-05-11 10:34:27 [facility] 12-[facility] 2021-05-11 10:34:27 Unknown, Hl7 Doctor [facility] URINALYSIS W/ 2021-05-11 10:07:00 Benigno Roe [facility] SCREEN, URINE 2021-05-11 10:07:00 Ajit Nash [facility] PROTEIN, RANDOM URINE 2021-05-11 05:00:00 Benigno Roe [facility] CREATININE, RANDOM URINE 2021-05-11 05:00:00 Benigno Roe [facility] EOSINOPHIL SMEAR, URINE 2021-05-11 05:00:00 Benigno Roe [facility] SODIUM, RANDOM URINE 2021-05-11 05:00:00 Benigno Roe [facility] BASIC METABOLIC PANEL 2021-05-11 04:54:00 Yessica Galvez [facility] (7) [facility] HEPATIC FUNCTION PANEL 2021-05-11 04:54:00 Yessica Galvez [facility] PROTHROMBIN TIME/INR 2021-05-11 04:54:00 Sunny Galvezyue [facility] MAGNESIUM 2021-05-11 04:54:00 Yessica Galvez [facility] PHOSPHORUS 2021-05-11 04:54:00 Lenny [facility] [place] CBC W/PLT COUNT & AUTO 2021-05-11 04:54:00 Yessica Galvez [facility] DIFFERENTIAL [facility] PERIPHERAL BLOOD SMEAR - 2021-05-11 04:54:00 Mayelin Toth [facility] ONLY Center CBC W/PLT COUNT & AUTO 2021-05-11 04:54:00 Lenny [facility] DIFFERENTIAL [facility] HCG, QUANTITATIVE, 2021-05-10 04:52:00 Lenny [facility]had [place] COMPLEMENT COMPONENT C4 2021-05-10 04:52:00 Lenny [facility] [place] HEPATITIS B PANEL 2021-05-10 04:52:00 Lenny [facility] [place] HAPTOGLOBIN 2021-05-10 04:52:00 [facility] [place] BASIC METABOLIC PANEL 2021-05-10 04:52:00 [facility] (7) [facility] HEPATIC FUNCTION PANEL 2021-05-10 04:52:00 [facility] [place] PROTHROMBIN TIME/INR 2021-05-10 04:52:00 [facility] [place] HEMOGLOBIN A1C 2021-05-10 04:52:00 [facility] MAGNESIUM 2021-05-10 04:52:00 [facility] [place] PHOSPHORUS 2021-05-10 04:52:00 Lenny [facility] [place] CBC W/PLT COUNT & AUTO 2021-05-10 04:52:00 Lenny [facility] DIFFERENTIAL [facility] CBC W/PLT COUNT & AUTO 2021-05-10 04:52:00 Sunny Galvezyue [facility] DIFFERENTIAL [facility] ANTI-NUCLEAR ANTIBODY 2021-05-09 20:06:00 Lenny [facility] (YUMIKO) [facility] [place] DOUBLE-STRANDED DNA 2021-05-09 20:06:00 Lenny [facility] (DSDNA) ANTIBODY [facility] [place] HEPATITIS PANEL, ACUTE 2021-05-09 20:06:[address] [facility] [place] VITAMIN B12 2021-05-09 20:06:00 Lenny [facility] [place] IRON, TIBC, % SAT. 2021-05-09 20:06:00 [facility] (WITHOUT FERRITIN) [facility] [place] FERRITIN 2021-05-09 20:06:00 Lenny [facility] [place] SARS-COV2/RT-PCR ([facility] & 2021-05-09 19:04:00 Lenny [facility] REF LABS) [facility] [place] US RENAL COMPLETE 2021-05-09 18:22:00 Lenny [facility] [place] BASIC METABOLIC PANEL 2021-05-09 16:04:00 Lenny [facility] (7) [facility] [place] HEPATIC FUNCTION PANEL 2021-05-09 16:04:[address] [facility] [place] PROTHROMBIN TIME/INR 2021-05-09 16:04:00 Lenny [facility] [place] MAGNESIUM 2021-05-09 16:04:00 [facility] [place] PHOSPHORUS 2021-05-09 16:04:00 Lenny [facility] [place] CBC W/PLT COUNT & AUTO 2021-05-09 16:04:00 Lenny [facility] DIFFERENTIAL [facility] [place] PERIPHERAL BLOOD SMEAR - 2021-05-09 16:04:00 Yessica Galvez [facility] PATHOLOGIST REVIEW [facility] LACTATE DEHYDROGENASE 2021-05-09 16:04:00 Sunny Galvezyue [facility] ([facility]) [facility] RETICULOCYTE COUNT 2021-05-09 16:04:00 [facility] FIBRINOGEN 2021-05-09 16:04:00 [facility] [place] FIBRIN SOLUBLE MONOMER 2021-05-09 16:04:00 [facility] TYPE AND SCREEN, 2021-05-09 16:04:00 [facility] AUTOMATED [facility] CBC W/PLT COUNT & AUTO 2021-05-09 16:04:00 [facility] DIFFERENTIAL Reshad [place] (CELLAVISION MANUAL 2021-05-09 16:04:00 Sunny Galvezyue [facility] DIFF) [facility] PERIPHERAL BLOOD SMEAR - 2021-05-09 14:47:00 Ludy Neo [facility] HOLD ONLY Center ECG 12-LEAD 2021-05-09 14:20:57 Lyndsey [facility] [place] ECG 12-LEAD 2021-05-09 14:20:57 Unknown, Hl7 Doctor [facility] XR CHEST 1 VIEW PORTABLE 2021-05-09 13:58:00 Sunny Galvezyue [facility] / BEDSIDE [facility] ASSIGNMENT OF BENEFITS 2020-01-23 13:09:03 Doctor Unassigned, No [facility] Branch Plan of Care Planned Activity Planned Date Details Comments Source Future Scheduled 2023-05-01 COVID-19 VACCINE (#1) [facility] Test 03:23:26 [code = COVID-19 VACCINE Hos pital (#1)] Future Scheduled 2023-05-01 Pneumococcal Vaccine: [facility]odist Test 03:23:26 Pediatrics (0 to 5 Years) Ho spital and At-Risk Patients (6 to 64 Years) (1 - PCV) [code = Pneumococcal Vaccine: Pediatrics (0 to 5 Years) and At-Risk Patients (6 to 64 Years) (1 - PCV)] Future Scheduled 2023-05-01 Hepatitis C screening [facility] Test 03:23:26 (procedure) [code = Hospital 845611615] Future Scheduled 2023-05-01 Screening for malignant [facility] Test 03:23:26 neoplasm of cervix Hospital (procedure) [code = 207138646] Future Scheduled 2023-05-01 INFLUENZA VACCINE (#1) M ethodist Test 03:23:26 [code = INFLUENZA VACCINE Ho spital (#1)] Future Scheduled 2023-03-04 Influenza Vaccine (#1[facility] [code = Influenza Vaccine Me dical Center (#1)] Future Scheduled 2022-07-[address] [facility] Test 00:00:00 (12+) [code = DEPRESSION Med ical Center SCREENING (12+)] Future Scheduled 2022-06-[address] [facility] Test 00:00:00 Counseling and Screening Med ical Center (12+) [code = Tobacco Cessation Counseling and Screening (12+)] Future Scheduled 2021-03-04 INFLUENZA VACCINE (#1) [facility] Test 00:00:00 [code = INFLUENZA VACCINE Me dical Center (#1)] Future Scheduled 2020-07-[address] [facility] Test 00:00:00 (12+) [code = DEPRESSION Med ical Center SCREENING (12+)] Future Scheduled 2011-09-30 Screening for malignant [facility] Test 00:00:00 neoplasm of cervix Medical C enter (procedure) [code = 257433503] Future Scheduled 2011-09-30 Screening for malignant [facility] Test 00:00:00 neoplasm of cervix Medical C enter (procedure) [code = 786471161] Future Scheduled 2010 Lipid panel (procedure) [facility] Test 00:00:00 [code = 17006386] Medical Ce nter Future Scheduled 2010 Lipid panel (procedure) [facility] Test 00:00:00 [code = 89598494] Medical Ce nter Future Scheduled 2009 DTAP/TDAP/TD VACCINES ([address] [facility] Test 00:00:00 - Tdap) [code = Medical Cent er DTAP/TDAP/TD VACCINES (1 - Tdap)] Future Scheduled 2009 DTAP/TDAP/TD VACCINES ([address] [facility] Test 00:00:00 - Tdap) [code = Medical Cent er DTAP/TDAP/TD VACCINES (1 - Tdap)] Future Scheduled [address] [facility] Test 00:00:00 virus screening Medical Cent er (procedure) [code = 984810858] Future Scheduled 2002 COVID-19 VACCINE (1) [facility] Test 00:00:00 [code = COVID-19 VACCINE Med ical Center (1)] Future Scheduled 1991-04-01 COVID-19 VACCINE (#1) [facility] 00:00:00 [code = COVID-19 VACCINE Med ical Center (#1)] Encounters Start End Encounter Admission Attending Care Care Encounter Source Date/Time Date/Time Type Type Clinicians Facility Department ID 2021-04-30 Emergency [facility] [id number] Univers 19:40:59 ity of [facility] 2022-09-01 2022-09-01 Abstract Marco, 1.2.840.1 [id number] Methodi 00:00:00 00:00:[address] 3.430.2.7 Hospit a .[id number] l .8 2022-01-16 2022-01-17 Outpatient SONIDO [facility] [id number] [place] 00:00:00 00:00:00 ATH YINA, [address] 2021-06-05 2021-06-05 Outpatient [facility] [id number] SLE 00:00:00 00:00:00 LAY 2021-06-05 2021-06-05 Outpatient [facility] [id number] [facility] 00:00:00 00:00:00 LAY 2021-05-09 2021-05-27 Inpatient UR ABRANGila [facility] Medical ICU 20 [id number] SLE 12:43:00 13:15:00 CHELITA 2021-05-26 2021-05-26 Outpatient STEPHANIE [facility] [id number] SLE 00:00:00 00:00:00 LAY 2021-05-18 2021-05-18 Outpatient MAN HERRMANN [facility] [id number] [facility] 00:00:00 00:00:00 LAY 2021-05-09 2021-05-09 Orders [facility] [id number] 00:00:00 00:00:00 Only [facility] 2020-09-23 2020-09-23 Patient Cal [facility] 1.2.840.114 [id number] Univers 00:00:00 00:00:00 Outreach Zeke PRIMARY [id number] i ty of [id number] [id number] [address] 2020-09-23 2020-09-23 Patient Cal [facility] 1.2.840.114 [id number] 00:00:00 00:00:00 Outreach Zeke PRIMARY [id number] [place] CARE [id number] PAVILLION [id number] 2020-04-01 2020-04-01 Telephone Terri Bran [facility] 1.2.840.114 [id number] Univers 00:00:00 00:00:00 Perez HEALTH [id number] it y of [id number] [id number] Med ica[address] 2020-04-01 2020-04-01 Telephone Terri Bran [facility] 1.2.840.114 [id number] 00:00:00 00:00:00 Perez HEALTH [id number] FAMILY [id number] MEDICINE [id number] [address] 2020-03-31 2020-03-31 Outpatient R TERRI BRAN [facility] [id number] Univers 14:40:00 14:40:00 ity of [facility] 2020-03-31 2020-03-31 Telemedici Terri Bran [facility] 1.2.840.114 [id number] Univers 11:27:39 11:47:39 ne Visit Perez HEALTH [id number] i ty of [id number] [id number] Med ica[address] 2020-03-31 2020-03-31 Telemedici Terri Bran [facility] 1.2.840.114 [id number] 11:27:39 11:47:39 ne Visit Perez HEALTH [id number] FAMILY [id number] MEDICINE [id number] [address] 2020-03-31 2020-03-31 Telephone Terri Bran [facility] 1.2.840.114 [id number] 00:00:00 00:00:00 Perez HEALTH [id number] FAMILY [id number] MEDICINE [id number] [address] 2020-03-31 2020-03-31 Nurse YINA Mas 1.2.840.114 [id number] 00:00:00 00:00:00 Triage Karolina YOSEPH [id number] HOSPITAL 4.2.7.2.686 [id number] [facility] 2020-03-31 2020-03-31 YINA Pulido 1.2.840.114 [id number] Univers 00:00:00 00:00:00 Triage Karolina YOSEPH 350.1.13.10 it y of HOSPITAL 4.2.7.2.686 [place] as [id number] [address] 2020-03-31 2020-03-31 Telephone Terri Bran [facility] 1.2.840.114 [id number] Univers 00:00:00 00:00:00 Perez HEALTH [id number] it y [id number] [id number] Med ica[address] 2020-02-13 2020-02-13 Patient Doctor [facility] 1.2.840.114 [id number] Univers 00:00:00 00:00:00 Secure Msg Unassigned, FAMILY [id number] ity [place] MEDICINE 4.2.7.2.686 Damon as CLINIC - [id number] [address] 2020-02-04 2020-02-04 Outpatient Enrique REGALADO [facility] [id number] Univers 10:55:00 10:55:[address] [facility] 2020-01-24 2020-01-24 Patient Doctor [facility] 1.2.840.114 [id number] Univers 00:00:00 00:00:00 Secure Msg Unassigned, BILINGUAL RESEARCH INTERVIEWER [id number] ity of [place] REGIONAL 4.2.7.2.686 Damon as MATERNAL [phone] Med ical & CHILD [address] [place] [address] 2020-01-23 2020-01-23 Outpatient R [facility] [id number] Univers 08:30:00 08:30:[address] [facility] 2020-01-23 2020-01-23 Urgent Felton [facility] 1.2.840.114 [id number] 08:10:46 08:25:46 Care Benigno PRIMARY [id number] CARE [id number] PAVILLION [id number] 2020-01-23 2020-01-23 Urgent Benigno Ya [facility] 1.2.840.11 [id number] Univers 08:10:46 08:25:46 Care Yasmine Easley PRIMARY 350.1.13.10 ity of [id number] [id number] Ri dical [address] [place] 2020-01-23 2020-01-23 Orders Doctor YINA 1.2.840.114 [id number] 00:00:00 00:00:00 Only Unassigned, YOSEPH 350.1.13.10 [place] [facility] 4.2.7.2.686 [id number] 2020-01-23 2020-01-23 Orders Doctor YINA 1.2.840.114 [id number] Univers 00:00:00 00:00:00 Only Unassigned, YOSEPH 350.1.13.10 [place] [facility] 4.2.7.2.686 Damon as [id number] [address] 2019-11-15 2019-11-15 Outpatient R SERA [facility] [id number] Univers 09:20:00 09:20:[address] [facility] 2019-11-15 2019-11-15 [facility] 1.2.840.114 [id number] 07:51:23 08:11:23 ne Visit Reina DWYER 350.1.13.10 [place] MEDICINE [id number] CLINIC - [id number] [address] 2019-11-15 2019-11-15 [facility]medici [facility] 1.2.840.114 [id number] [facility] 07:51:23 08:11:23 ne Visit Reina DWYER 350.1.13.10 i ty of [place] MEDICINE [id number] [place]on as CLINIC - [id number] [address] 2019-11-07 2019-11-07 Telephone [facility] 1.2.840.114 [id number] 00:00:00 00:00:00 Vignesh DWYER [id number] MEDICINE [id number] CLINIC - [id number] [address] 2019-11-07 2019-11-07 Telephone [facility] 1.2.840.114 [id number] [facility] 00:00:00 00:00:00 Vignesh DWYER 350.1.13.10 it y of MEDICINE 4.2.7.2.686 [place] CLINIC - [id number] [address] 2019-11-02 2019-11-02 Emergency Beck, Naeem B TRAUMA 1.2.840 .114 [id number] 16:16:18 18:16:00 LopezSolis guillen RANDOLPH 350.1.13.10 4.2.7.2.686 [id number] 2019-11-02 2019-11-02 Emergency Beck, Naeem B TRAUMA 1.2.840 .114 [id number] [facility] 16:16:18 18:16:00 Lopez[facility] [id number] [place] [id number] [address] Results Test Description Test Time Test Comments Results Result Comments Source SARS-CoV-2 (COVID-19) RNA [Presence] in Respiratory sp ecimen by 2022-01-17 00:53:34 MIRANDA with probe detection Test Item Value Reference Range Interpretation Comme nts SARS-CoV-2 (COVID-19) RNA [Presence] in Respiratory specimen by Not detected MIRANDA with probe detection (test code = 95416-0) Whether patient is employed in a healthcare setting (test code = Un known 50937-5) Whether the patient has symptoms related to condition of interest U nknown (test code = 81405-5) Whether the patient was hospitalized for condition of interest Unkn own (test code = 87709-8) Whether the patient was admitted to intensive care unit (ICU) for U nknown condition of interest (test code = 88031-5) Whether patient resides in a congregate care setting (test code = U nknown 32184-1) status (test code = 04729-1) Unknown Date and time of symptom onset (test code = 55355-5) Unknown [facility] METABOLIC [id number] 06:37:47 Test Item Value Reference Range Interpretation Comments SODIUM (BEAKER) 138 meq/L 136-145 (test code = 381) POTASSIUM (BEAKER) 4.0 meq/L 3.5-5.1 (test code = 379) CHLORIDE (BEAKER) 103 meq/L 98-107 (test code = 382) CO2 (BEAKER) (test 24 meq/L 22-29 code = 355) BLOOD UREA NITROGEN 23 mg/dL 7-21 H (BEAKER) (test code = 354) CREATININE (BEAKER) 6.24 mg/dL 0.57-1.25 H (test code = 358) GLUCOSE RANDOM 87 mg/dL 70-105 (BEAKER) (test code = 652) CALCIUM (BEAKER) 9.1 mg/dL 8.4-10.2 (test code = 697) EGFR (BEAKER) (test 8 mL/min/1.73 ESTIMAT ED GFR IS code = 1092) sq m NOT ACCURATE CREATININE CLEARANCE IN PREDICTING GLOMERULAR FILTRATION RATE . ESTIMATED GFR I S NOT APPLICABLE FOR DIALYSIS PATIEN TS. Water Hydrant Installer ID - SITA [facility]BC W/PLT COUNT & AUTO [id number] 06:07:04 Test Item Value Reference Range Interpretation [...] (BEAKER) (test code = 2801) BASIC METABOLIC [id number] 05:46:48 Test Item Value Reference Range Interpretation [...] S NOT APPLICABLE FOR DIALYSIS PATIEN TS. Water Hydrant Installer ID - SITA MCBC W/PLT COUNT & AUTO [id number] 05:21:23 Test Item Value Reference Range Interpretation [...] (BEAKER) (test code = 2801) MISCELLANEOUS LAB [id number] 10:35:31 Test Item Value Reference Range Interpretation Comments SCAN RESULT (test code = see scanned result [id number]) see scanned resultSARS-COV2/RT-PCR ([facility])2021-05-24 11:24:11 Test Item Value Reference Range Interpretation Comments SARS-COV2/RT-PCR Negative Negative The SARS-Co V-2 target (test code = nucleic acids a re not [id number]) detected in thi s specimen. Negative result [...] This SARS CoV-2 test is a rapid, real-time RT-PC R test intended for th e qualitative detection [...] Food, Drug and Cosmetic Act, 21 U.S.C. 360bbb-3(b)(1), unless the authorization is terminated or revoked sooner. Fact Sheet for Healthcare Providers: https://www.Appiterate m/Documents/Xpert%20Xpress%20SARS%20CoV-2/Fact%20Sheets/302-3802%70QDBQ-IWM-8%20 HEALTHCARE%20PROVIDERS%20FACT%20SHEET.pdf Fact Sheet for Healthcare Patients: https://www.Connect2me/Documents/Xpert%20Xp ress%20SARS%20CoV-2/Fact%20Sheets/302-3801%61OSNX-SPU-1%20PATIENT%20FACT%20SHEET .pdfBASI METABOLIC [id number] 07:35:50 Test Item Value Reference Range Interpretation [...] S NOT APPLICABLE FOR DIALYSIS PATIEN TS. Water Hydrant Installer ID - SITA [facility]BC W/PLT COUNT & AUTO [id number] 06:13:19 Test Item Value Reference Range Interpretation [...] (BEAKER) (test code = 2801) BASIC METABOLIC [id number] 06:57:04 Test Item Value Reference Range Interpretation [...] S NOT APPLICABLE FOR DIALYSIS PATIEN TS. Water Hydrant Installer ID - [place] GCBC W/PLT COUNT & AUTO [id number] 06:21:27 Test Item Value Reference Range Interpretation [...] = 2801) CBC W/PLT COUNT & AUTO [id number] 13:50:18 Test Item Value Reference Range Interpretation [...] (BEAKER) (test code = 2801) BASIC METABOLIC [id number] 13:20:37 Test Item Value Reference Range Interpretation [...] S NOT APPLICABLE FOR DIALYSIS PATIEN TS. Water Hydrant Installer ID - AAHAMIDBASIC METABOLIC [id number] 10:57:00 Test Item Value Reference Range Interpretation [...] S NOT APPLICABLE FOR DIALYSIS PATIEN TS. Water Hydrant Installer ID - [id number] 10:56:21 Test Item Value Reference Range Interpretation Comments PHOSPHORUS (BEAKER) (test code = 5.3 mg/dL 2.3-4.7 H 604) Water Hydrant Installer ID - [id number] 10:56:20 Test Item Value Reference Range Interpretation Comments MAGNESIUM (BEAKER) (test code = 2.1 mg/dL 1.6-2.6 627) Water Hydrant Installer ID - AAHAMIDCB W/PLT COUNT & AUTO [id number] 05:09:19 Test Item Value Reference Range Interpretation [...] (test code = 2801) ANG, TUNNELED CATHETER [id number] 13:35:00Reason for Central Line/PICC?->Need for hemodialysis accessReason for exam:->HD [facility] : 1990 Sex: FFINALREPORT PROCEDURE: Tunneled dialysis catheter placement Procedural PersonnelAttending physician(s): Imelda Summers physician(s): NoneResident physician(s): NoneAdvanparkwood [facility] practice provider(s): None Pre-procedure diagnosis: ESRDPost-procedure diagnosis: SameIndication (QCDR): Performance of hemodialysisAdditional clinical history: None Complications: No immediate complications. IMPRESSION: Insertion of right-sided tunneled dialysis catheter, with tip in the expected location of the right atrium. Removal of indwelling non-tunneled dialysis catheter Plan: The catheter may be used im mediately. PROCEDURE SUMMARY:- Venousaccess with ultrasound guidance- Tunneled dialysis catheter insertion [...] sedation) 1mg Versed, 50mcg fentanylAnesthesia/sedation administered by: Frankie king trained observer under attending supervision with continuous monitoring of the patient\X2019\s level of consciousness and physiologic statusTotal intra- service sedation time (minutes): 30 AccessLocal anesthesia was administered. The vessel was sonographically evaluated and determined to be patent. Real time ultrasound was used to visualize needle entry into the vessel and a permanent image was stored.Vein accessed (QCDR): Internal jugular veinInternal jugular vein patency (QCDR): Patent or otherwise accessible on at least one sideAccess technique: Micropuncture set with 21 gauge needle Catheter placementAn incision was made near the venous access site and the catheter was tunneled subcutane ously to the venous access site. The catheter was advanced via a peel-away sheath into the vein under fluoroscopic guidance. Catheter tip location was fluoroscopically verified and a permanent image was stored.Catheter placed: Duraflow 2Catheter cuff-to-tip [...] Imelda Nava MDReport Verified Date/Time: 05/20/2021 13:35:01 Basi Metabolic [id number] 06:54:58 Test Item Value Reference Range Interpretation Comments Sodium (test code = 139 meq/L 647-472 5903-2) Potassium (test code = 4.5 meq/L 3.5-5.1 2823-3) Chloride (test code = 102 meq/L 98-107 2075-0) CO2 (test code = 25 meq/L 22-29 2028-9) BUN (test code = 25 mg/dL 7-21 H 3094-0) Creatinine (test code 5.64 mg/dL 0.57-1.25 H = 2160-0) Glucose (test code = 77 mg/dL 70-105 2345-7) Calcium (test code = 8.8 mg/dL 8.4-10.2 70684-0) EGFR (test code = 9 mL/min/1.73 [place] [address]-8) NOT ACCURATE CREATININE CLEARANCE IN PREDICTING GLOMERULAR FILTRATION RATE . ESTIMATED GFR I S NOT APPLICABLE FOR DIALYSIS PATIENTS. KAREN (test code = KAREN) Water Hydrant Installer ID - SITA M Lab Interpretation Abnormal (test code = 34002-0) [facility] METABOLIC [id number] 06:54:58 Test Item Value Reference Range Interpretation [...] S NOT APPLICABLE FOR DIALYSIS PATIEN TS. Water Hydrant Installer ID - SITA MTissue [id number] 17:03:06 Test Item Value Reference Range Interpretation Comments Case Report (test code Surgical Pathology = 104) Report Case: [id number] Authorizing Provider: Ajit Nash MD Collected: 05/15/2021 03:03 PM Ordering Location: [address] Received: 05/15/2021 04:09 PM Service Pathologist: Briana Jenkins MD Specimen: Renal DIAGNOSIS (test code = [id number] 3220) FuZzEwMzNcZnRuYmpcdWMx IHtccnRmMVxlcGljOTYwMV zcgnZgNBAicIRmS1Xsyybz OPwzXH4lNJ0apXobmVCqvI CtPCUxYqSvl3wnn914vEMk t9pvFDJSwxchyTx4tKehZ3 0oi1S0DmjuM72obLLrOEQ6 FHKsTDHneJQqQHKbJIN5FV FjcKOpR8neIQCaPI8jggrj YIviPKcbHCUwqWO2LRUkgT MjR4UcOEBtOSsgRPNaqye8 KxAzUc7udXTahYhpPXulCW QrBMDfNKwuBRFmMoBvBZ7g S1wPHdWJJNXJPONOMXVHI7 AGAT4ZFHSDUJHMOK8JD2g1 XHBhclx+CB2sjmo+LSBHTE 9NRVJVTEFSIEFORCBWQVND EWtVHcPMFRTXB3LICQCBU7 1QQVRJQkxFIFdJVEggVEhS Z81KT2HTZaLEJORDO0XBA3 lPUEFUSFkuIFxwYXIgICAg RD6zXb2UISkkKC7WFPDHO1 0CKbKSLNRHTI3MVPUQOF6S E1hGZl1FVQOwISOxtpq+XH 5cflx+ZRKVSMKJP9uXXIUG RUxZIDYwIFRPIDcwJSBJTl JLIbPSHUGBQOwwCvlSZv8X LWKoQ9cSOLUFBRYAKDCKZX KFMt7DXPzuCFIwxym+XH5c flx+LSBBUlRFUklBTCBBTk PrKNSVQWGLY6jKFvFQUsCC MXTNULXHNQJYT6KVBxGLSC PCINFOX1ZWXX2QU3yGQEbQ ZDkgTHoKQ2yRCmhTAf9wBX Bhclx+HW1kmux+LSBTRUUg X57NNILDWX3mtGMlkVpybh KoQXzro8KyNJmpYFXkBP7a oEccXTVoND4kHYBtQ6dkoA 2zvqv6UgEsPDOxDsJ8DZKz kkK3Zqy8JTRwLCguv8xms9 HiLNIyTRa3bVxlJiZrLCIc q7srewFbGkOzIGDiRYIuOS FqlVSyW559r8qqd0aoiqDi eZI2NQJaNGN6BXveqjZcrx I6IEyebCOaFrC4XArnivBf GXndlnJjguQoMgd9GVPpM7 67IUF4mBiiu1wwRLH5TNMg GURbRjXlCc1czHKsS639BL YtNTOEEOSjgLd9MJWljvHv qbYmcJVZq617I200u7enFG McpxAlvTkYbsjoj7uqN205 XHBhcGVydzEyMjQwXHBhcG DryWQ6UZXuAV5qlywyXEmo RBqiVBQrodZ3IZLqbTPtW6 CxIZLeBD9xnvxxPOH2QTql HDVqTCD3WeZcOHEmc8Jhne i9WjOquj0kta35YJS6b3Fw uEixIJS2BKJ9IkXnDf4lfD XaMGVmCI3fTbFrbUCiHYAf wg77uDojGJtqUKM5XKHeys Qnn6Ull5ldCoAktxVeF1zg V9XkDUIeRCXxLBQsVjOcqt Xli8Olo1NsyFUylLe2s4ru TWSfRXZblVrgj5loTYD2QU ReiOEzF2qnnC5zPGMkIG8k zdxfn3gzQAssYXedCPDzmW T7fzM9WPPvnQGqT4SksJ4w FXHwRCyiDKSedlt9IqWfGt 9vdGVyeTcyMFxzYmtwYWdl XHBnbmNvbnRccGduZGVjXH BsYWluXHBsYWluXGYwXGZz MjRccWxcbGFuZzEwMzNcaG ljaFxmMVxkYmNoXGYxXGxv V5axCuOcTtDqNlc4PVLilB BzWAJxFvh9JXUmqTLlEUBM nXlyxW8sWIUdnZoktL1zoJ F7UUOkwmXrpZLGfD0lRUBD zL7yGeK8QkRfAbV9LBS2PW hccGFyfX0= COMMENT (test code = w2gjjGFrGQZyqZI2VkEjGF 1796) Pux9qtc5SlzHUpaPWwSRlm aGJyupIasd54yLW7tH24GM 7xWQYjUiZ1SUWkyrR7Wcn0 UHUlVMOezKStL493v6irk4 vqtfYewHN9wJooEWNmiwhb OtS2XVbfIBWawxgkPLh7JZ hwNLBmlSX4EUTmjWJpN9Qf KJGdFD5jbcp0MEZ4DAgqBH LlEuR2KAVpxZVhHAZgdMjh STaah863VKJ1DjGaFIGodt PplIcfvL3cSpXlPNAZqZMi lVfjtOEsnUxvoc1yG71maF JoQM5zUJEesXWaf5ZypVU6 rWMnoRPyCTB0tGCnsqHlew DfH47mi5htwXUlnMG2gXPa TQXolh0tKg86sHWvuVkqpn 5zmbgtm9MbeZt9TqFQOQIg GU31N6IdmFhcsU5kgWGdHg LpoHVscsEhwxAqn76cOH2y WBFpVOQeF2vcjEEizXJfHQ SdPDYtENUhPOQyWG6zkp7m HKMqxgKxvCH4lKucAvPmSZ R1a4ExPqNAxBImu9PagSSk aQiswfJbNTZuVGEvh1EvZL 5AXTohp6LeGHKEZSJrvXcb mDAmoMFQMFCnOT4mXHVlpJ hwVHNpei8dgXUaPMDxo50t dYE7EAe0DPB7I0e8BWAlYp ENyMmtoDEqbRJfw3HpUBnt eCkjreFlclWevSmuOKL1NW QuIFxwYXJ9 CPT Code(s) (test code e7rajHSwRXLmqWU2MfOjMM = 3357) Brs7pmo2EejMDjmNRaCDpr bUSovfPmrq83nWA3zJ64XH 0sJYSyFwI8FZXpodY2Kia2 ROUtSTPraRSoP266x0jnd1 vqjrTuySJ9vOfpOUBfhtwe MeQ1SGzwZXFcbcieHFz7UB wkOGEdbUL5FGUtyKZdY3On CGFcCJ4otdg3QKO3EGzlJI NcAiI9ZRDxwYZsLXSbjBhq AUnwj055VUG6NnXjRZMpgr YumVvbeG6iEzXqDOC5ACPi RTuvYHfpQDXmYPSsXJU5WP O6StK0XFwaKIo7PgL7EKDg cn0= CLINICAL HISTORY (test b1xahXXqELHesCN1VaHqDD code = 3356) Cnx3hxi4TnmZVtsPMfLQdl nEQgmyChfk92pCO4lM09UP 5qCUNqRiT9UHXvwkH8Cuh6 OEViXWOwrHWdI366r4exp7 xtapVhpDX6qYjvOHJsxhfx IwZ1PIstMAPkptezXHy6UZ fgHVEqgXT4ZSUueSFxB9Dn VTTzBT5wstb1QEG1CCyqXX WnNvV2TMPwzXGxQEKhhIwf XXike510VKU6UvFaYIRxga JvzHgfuD2tPtMmMZGCI2pm cGFyfQ== SPECIMEN SOURCE (test r1hjbMDsPUUmlLR1HhYuKW code = 3377) Lfd1ptf2AwcOObjTOdGKxt gQHuukBgki62pGY4gL34OF 2fDUUySxT5EDPuaxF3Vig8 CROzTFPdjUIcT180e4rug2 pdlpPcaXI0yDfwZROhghao HmT9QSitMHYkiakqNAi3LI ryCDZxgOO4HLXvcOQjP0Zs PHEeYO2vxcx2SBX6YFxmHG JnOfG7TKOisNYaMORkcOlk LRuuw457RUO2TpSySVAxyb XgrCmlaN6tSeFpDQBWMgUO aWRuZXlccGFyfQ== GROSS DESCRIPTION (test q7hofPNzYGBmjNC4FwUzWA code = 3366) Hha5uau2NxhAVwcWMjVGpr oKFnypHdva90cUN8wN86TA 5mLPMdHvJ2RKVzrnM0Vqm1 DGWaAERveVOlQ307v0stg2 jamcUzwBS4mHzdEVUuwcga LdA0ZCqbGODsiyivJCi3VU qeBDPpvJB1VTGdsNDzX9Es PBHhMF3gnxo4HDQ4PIadCX UbGmR3LHBhaRNvELDlrPga QJgut881TNJ8YjZfCGNtug GsjHsauD6zApHqOXJYToRg VGhlIHNwZWNpbWVuIGlzIH WpQ5UulkXxNIeiCJDfD21f dGFpbmVycywgYWxsIGxhYm DjHREbs6u1gVO7tRTfcDE0 fDSdiQjxMW9wlDLuGE2UMv UfalVjMWFyNVSlhK4aAU55 zJYcmr1toUIiADmpiyJeYe GwGNo3PJQxpV6qGz8uoTYr jE4sRGAiNIFhbSMvKWRmCv RejUzrv8VpUTZbjkYpRLRv ridfiykzMK3xHNCfhmJfrY X4UJRcXMTgAZSnCYMjkRBc zhUbCO7ebCkmz9ibL7qysF Gxg4ExrQl6cWYiJJbwRBIp tZ1veT1rU4Rtw9G5zHSbEG GqPRZrefxfbA2rVXJlU4Mq dmVkIGluIHNhbGluZSBpcy XrNBOyPnDzbNTxKsC8fDIh vGFqL40gIGJ0vQS5MYjxTP Gtb8ljpcZbq6FkhI9stN7q Fax9v3Fty2CgmuNiv6I4YE rzpy7gLYFjgnhctZ3vYVUy A5WwusHcSDfhEEVvOZKeuw MeHnLnS21ogP2fjVOcB9Sb YBDmbiCsc3X5SJBjs6O3LB Ztc9ObNQKkUDHbeOJcc2Bt wUF0lpS5nXUvBC5pzVWmYA FflnZtlBO6eDMtWAJvs5Ae f0FxdjaiAWQnztkkGDZlIU ZccGFyfQ== MICROSCOPIC DESCRIPTION i7fiyOIrFPKvpBW6KhOqZT (test code = 3371) Zik9wok6EqyASciAKaNMxa qCLthoNjik78eBT2mL75VW 0eZXXcTeA8KHIjjnW8Emz4 IQFoJUJecLHfR751y2ywy2 cpysNxxUO6hVtbPLCmuuxy QlV3VGtaPEAybfdjAAt7DQ lrBUPouFN2JNPpuVPeD7Fn SSFwWH4ypkt8VYL1JMdmWZ HfRnI3ETVlmQEjPDNtiDia YTjst109FGX7BnGgIUTzut IhjClgrG8nSgIkJLSXQUdW TYNLRIQUL9KOG8KPJjMheL XoVHBjjaLUICW5wG6ekoMz hX67TCZtR72qOSWpe6Xddi DoSGqkJ46lwMI1CCjmTGHc SCMvBGOwCZH9lIghYbWeFA lnNVJmsGHgSEppv26iejBz kWmbOOPjtn54aS0vrKNncC IqIGTzpL8cSNA8kTbkZZTj BSD2MI1kglMoZGEtCeA0xW murKB6VSJrIVXgqQ6dUAY0 pYLqTOdqWHjvg9DmbNr1MX EzwBOla8DwGw8jA47oNYes d66kexIbwCEizFNbDPMeI6 0qhqUyiFKqG8fwam1mtTYy SKBlDJRjVA5aeK5qakniK7 xvbWVydWxpIGhhdmUgZXhw SL2oPLBazJMpYL8veQRnGC 6mqABhcYAcyaLmtQBcAD0w gKYsXPm9uXGnK9EkzAEvLJ ExjOcwVYChbbCbZiP9pMKd W8zrrNUdwEhdBHxbeiVix9 VnbWVudGFsIFJCQyBmcmFn oENjdSSeBO8jBQFthI7gCC N9hDDsNZrxlfQuu14rAIX3 RCMkE7YxdOohZJVgMTXhVU 0fUZCegCOwOQXlh491a0Ng mkPmxbQxdoEjJ6NzhZZhm7 VjPSPwoY1whVEwfWoie88p xXQasiEpy4Mfdc9etUHkJZ VhimGJrXV4fSEsEMVoIMVa rhYxsxI7xZOacU21NVScTG BeUTvgKZDph4M6JDSyUFO1 FCJkoVD8S4e6ATxuqQTbl4 LviDltxVIziSSen7WidrE8 lVLwNQK0YtDaDMEmASZyf7 FniFKjaiQtUCGqm2ViGRZy ZCBjaHJvbmljIGluZmxhbW 6plTvrkm6bRy0rmDpwnUIe wx5fbYEbWMOwYVOzIWVnX3 ZqiCjkmHTsg8QmbZQpbpX0 oTVwyI92PMMfxPc4yPNhWw BUaGUgcHJveGltYWwgdHVi dSeewiTogwKgVt5kENsolD SaV5TmtHcuXTgkqFpgiB0p bmFpbGVkIGVwaXRoZWxpdW 0uVRlwZRYyoIWaXUBmo2Bl kVU8WIkkdBQwfB9wkAebep BhcnRlcmllcyBoYXZlIGZv E5UfsXqig8Y9JKCnZUfozL aqWTjbc0MwVWDai0orOUve jSsnbKEeq4sjDSf6fDDwyV fwd3pyOsGWx0WjaJBaecYn bbrzfoCkutZnUYB2SXJgo8 xlcyBoYXZlIGNvbmNlbnRy vPIkwFvurO76oY8beTH8cW euy2CuhY0vMVYMx5SdwUZa cnRlcmlvbGVzIGhhdmUgZm qepsjkj0kuCU2tiDUweKSt LiBccGFyXHBhciBTcGVjaW JvVWW7DOqgwjjsTS2zd3Ac doD8xxakdELqlSDgIRTKWm AcsoGpUa5oUNFlr8kjupLa XLI9IYwodiW6SSElWR7bD9 Lnz1SpzYOev1VgHRQhhGLr pZaipxFgDdM9nWlwHAIwq3 BzzLTwhpCxz0khl9PvCAM0 zLFwuNEuEKA3AGlcoX0eFW JgnCRqgd5rEJ1oCMfynPRf hqSdVLZgemWes4ahuFyck8 GpFX5vkPVagMCihEN5B7V4 cmVzLlxwYXJccGFyIERpcm YfkUKRsQ24op7kdLSyipZn W3ReK5Q9PSDuceZJmGS5i7 tyL9v5QZxjQA1rpYMoaeEc SFPyM2Xac30oQJDkj3ziBO TvAWhoLL63XGxkqCPyP8nt ji84oWYxPK4wIIPxr2Jog9 ner7KhkvPcQ7wclCHtoWvm LlxwYXJccGFyIEltbXVub2 TtoY2mUITlAO8xJTAydW8r lV2stmhpYJPktaf6WNSlTJ cIVmNyWAefMA41FLylOD14 usLmxCMukZrfDf7pRfemxT 2saPJfabMrh8McsH3nclow iNTctOzbmsXsGUD0jsHqgh YyTE60GzUxuVBjCWIpCqVO I7h9OSDiE33zxiCoeMKvMR AoyXdlwogtNG0rQB4gs5Pz U6bbsOEkpxIqnSqpgpVflM CvbukgDkMfVATdVUJee5Db vIv4TLVrpXCrvpuyDyD1bE L9sQUuDXOnv7UuUYYmJKFj dlXepAOvTRGkJkAUX761NJ CzP64ehgAdzQWpQYYtoefk GBuyq6BwdW4nriumYAUeXp ccDCMfbcw9ZLJxKkW3EXNv P93aifFszDPhVTRbywyiPR wwm1YmzY3jjbogIR58gcMi qRYtvCvsFijaGXFbE3ZvTU JvtCCsoBPvSCK5LYqhaZ5d LlxwYXJcdGFiIEMxcTogc2 CslZRkaWVfZK2le5CkZ6qj pIFehBZptuaoVy5ikfVyDD IiRE37CWJqWsxiBk9lRLsv UNS3TLEyZQbea9UyvM9epb lyrLGqMYIyAuGNoGNmnL7f B7BeXcAoBOowZM82NOvvwR ZvNF4odKNqSLE6LBhfgT1y B1HiqGJbzM5vdxHnICPaZL Isz2GnbQPxafSutrwnjFEs qLBqhbeeCm2hFNNcenc2QV ZsS8UtiOO5ZYTyQXasEO80 ZYwsaRWtRA6djNKqJNW9VM npjB1wM9MazKClcM7lptKs HWUlQVAlu6HqnRPfemNidz tmvCLbwKHtovnoLx1jbJYo FFAtVtCHEY0xZLE0GWHiK4 1lbnRhbCBtZXNhbmdpYWwg c5BbeR8khgfkJW07fhHhxZ JdxVjzQxktVQTbS3RbEZJn qADzrGCzUCL3PWuxrH6iZu ncYYBggKXvQHAcfSGhl5n5 N9dtoqYuLTQthDmzs5KsBW UppCQvQSUdb5ZprD1tvJ8g Qoe1t9Jfc4WjdeEpFZJ1TF vdbD3uWRikygUvUdJnwaNq mkP6vM61x1d8GSQhz5VdZV MkgbDwd1iuw74saS8mcST2 FLOrnJIyv6KjeCK8EMPsAB QldOw6lTHuNDQok7w9xWXb z5ZcmSr8YHLnn621ed3nPU PgZIUegHMgyk7sIWNyrqfs CHWaMXhpO58qi2ZlVsDDkU YdpFTpiiOXqZHzu4Bot8J0 XeflYVDyFBdyH8mhj6NhiB fwrwOgdGP4w1sgD9o8KQYw dSXfTZowXREzuSDkOLK1YO wiGMVyg6VxqDamvwTppzY8 WTJxQCRmj4Akv9pqi0Czyk IkFX6nDXNenWPiaMmrnNlw ws0qWXQvhCYzn1RwJsGifT 4rWRM1hTJgXjJjbVKfBTWc hZAku5RvsIE6oRRkfKXpiG GkbT2xgJzxyhqpJGakzXnh QCGas05pn7KmdIimELxpa4 9yrxZkWCAbsDv2bxCbkTK8 M0P9moPjxwM1VVKnghJ6kH Y4ITEkLJTtxR3uUXY2bXDr FDYfr7JjTP48JD3stKVbFZ 9bOLgiOC1nTH9hxx5axXU6 gTdsl45bw9XfKZLxRFDkSL lyWLTzZgJ9m6Vvf0NjEE2n u9RoCZgeWIqctwLePDTqS9 Dsh60lh5k2eCOlnaWqhFos aLcgaBHpJKtqRKR5VPvzdG 5nCaCVynPhg9YahHErB72t mN26rnJfXKXpQPJhRT1qIF RoZSBtZXNhbmdpYWwgbWF0 uvk0JPzeAGJ9vUGwNGOwGd BTdWJlbmRvdGhlbGlhbCwg v3LtLXBkkPwfwYjekNsaGY 0zOI6ed4YyX5khbX0sSPDa jJLgJZ0spCRpUOZluUOlgY Kuvj0zZG0hBCsxxU1eeY2i IGNvbXBsZXgtdHlwZSBkZX Jou6h8phJjvwUyjo81CDPf UKMvfaQuUZZuTK2tyZKsOX Ucc4FuuJSsH7Gzs1IaBHQe ZSBleHRlbnNpdmVseSBlZm CyF1HcNiFqzXDirF== SPECIAL STUDIES (test y2kraODxSMWfqDK5OnNyDC code = 3376) Qbw9lvj1KkwROoaRBfOGaq bWKitwEuuy12pKI3sB31OB 1qVLRmGzK8LKZqldR7Nyw1 AYFeWUZxxPZjI918WLWzSN CmwCwubbs8eQ88EFKgmX3u dGJsIDtccmVkMFxncmVlbj VsKec6HNY9zMfzCRXkeudr HbK7EVgyDWYjlrveGJi3XI jtFUNkeMG2XYUyxIFxY6Xu IGYwPV4mazu5VXH5EMyiDH ZaDpU3KINsjSExCSAfqBgv MJtvx856XUO1MzBuSFTtwy WhdIkrpC2jExJaOhKiUtlt ZjEgVGhlIGludGVycHJldG J8vC8fFT6sNBJkaJYcH4Xv ZNEzrjYxsZErFFI9lAIcpU FcNY9pOUktkOGwv7yya0Ic J1auyUafnOE5CK9yYTCrMM WeIJbdj0HvzF9lMgqlUEDy bTZvRFIvjaVtp4uaL2clDI VjEHA9ZA4pekGlNcBkVA4p qZ70a1Mde93in89hqM5wnK McruIxI92slGKrsVZlg7Ir KLPetfIiePW7BNKjCVfqkf tbd8l4iUB4vAMfcPIvmHH8 aXNzdWUuICBUaGVzZSBjb2 49fx4iLNIdsAYbngCgqD5a KLtxnwwsvBFeCD2tTVHrMS KgIXQaDR74dpVwVE5cpLIl y4qrauTubTCoe4HbcHN9OC LkdZKitszvZt1wYS55JWYu GMnqtT1duXEygzErRG7xAJ 8vE5V9wTFdQSHhuzNlw4dd QGysFZ6lSVUywUzsKtzbIN BhEJOxziNxiBW1ZKYyhSXp TTQotMFiZThzlKSit9psm7 GeW6phoUcdcZD6HTHiR8yp xMEjyIF4BBV9hZ9yBKfqrp HqNRSht7EeWAFjHYHrSyD0 qP3lHBN4KjDBnLkfIFY5Nr U9IFqkCAMcMD5vLNdeZZrp C5YocPVnOHMYAJXif6pzD3 meRLQsa8SmfY8pdWO7vEZu OPZglMH4ZRTwTKB6BEtytY WhHFSmVQEtsOVapKHyJn0q gHOwM1GiQ6tfyzUdkBYzxJ B9tQVoOVyqvpEqFIV4CBXg dW9eAP2zTJBnqMDcUV6wmB DfSKArMRGiQDWqSFWuv1Ao DHYdah51ELYxQwdfpGqsQK SlHh1mHl3xZZZikoUxTDE2 VnHIFV6kvbarcEIndMnbxf 3tBSroMRCCMKGyNSViLHB4 DOLrsG7uCLR1oQV9VQG9Z8 kuX5cqOFXzjdGmHD5eZQRj rZGgufFpXQuzVA8dfSWgDV Yxv7QwotduIMEpTQL8PID8 VOwgRGGsQYEvMi4hDEFonE 1oW1JpNTN8swZon5BiJqLI hVJquU42uPSfwi01NJNfMR WkK0HlFKAcSFNzFYvuzmEh dYxoXBLzs72olNGuzkFwi0 DkxtVaKIRlI7zxONJzbZKj pRGvq5CqnJ2hiFAmdmUcPT V2rALqHSZmbJ3rTURbeErb BZFpzH4cY1UqYDtmWn4gMZ AaburhNF4xjz85TG5hilVb NH3rwbBuCX33puHmQxKyHE o0HWvUVYsJBTf6MNVzgfDp qJVpoDEvKACxuH0cnHSbDw 9ybSBoaWdoIGNvbXBsZXhp fJxwP3xqgvefHYqsfOYjj5 TvgP0dsHQ8PKS6uL7iLnjn YJQjcZTbGXCdD6macAHvfL Rdwz6wBKJxwT5tNJLfzkKG JPUmmnTrnKM6wW4nITIpdx CeUWmrH3Ubv44diXoxcm7b F17yqSXbgLPlsM4vNZhlss AtERIls6BiWKDvEQGcLDC8 DXVwAUVttzXbAS4tuCf4dA MpBSQEFiJAEFQth6saJ3ih yXKtu5ChqL1oyIzgP2sNSM ZgSIA7CTHoISA0ZEihMIT1 DsSyZsJlnA5qtxSIcoFdnB UvALGbq51pPlK1GWPkXPcu bEQ1a08hDEDDTWa4JIQrAt TPkYSdLG6nhK8tZ6FuPWmc kvStoE20BBQjwoD1SHNlMd occTwyWMVraS1tuXgcTsWj YDNre5cqZ6jwuFFonWRUY2 gZZy1pjPZcrQ== Gross assessment was [facility] performed at ([facility], = 2777) Department of Pathology, [address] [place] [address], Technical component was [facility] performed at ([facility], = 2778) Department of Pathology, [address] [place] [id number], Professional component [facility] was performed at (Psychiatric, code = 2779) Department of Pathology, [address] [place] [id number], [facility] [id number] 17:03:06Surgical Pathology Report Case: [id number] Authorizing Provider: Ajit Nash MD Collected: 05/15/2021 03:03 PM Ordering Location: [address] Received: 05/15/2021 04:09 PM Service Pathologist: Briana Jenkins MD Specimen: Renal A. KIDNEY, LEFT, CORE NEEDLE BIOPSY: - GLOMERULAR AND VASCULAR CHANGES, COMPATIBLE WITH THROMBOTIC MICROANGIOPATHY. - FOCAL AND SEGMENTAL GLOMERULOSCLEROSIS. 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 - SEE COMMENT. Signing Pathologist Direct Phone Line: [phone] signed by Briana Jenkins MD on 05/19/2021 at 5:03 PMThe light microscopic and ultrastructural features are consistent with thrombotic microangiopathy. Patient's history of hypertension and pre eclampsia appear to be major contributing factors. Although other causes of TMA like TTP,atypical HUS and drugs cannot be completely excluded. Clinical correlation is suggested. 87907, 85066 X 3, 86868 x 8, 72183MIUS. KidneyA. The specimen is received in 3 containers, all labeled with the patient's name, MRN and accession number.Received in formalin are 3 hollis soft tissue cores ranging 0.2centimeters to 1.5 cm in length which is submitted in toto in cassette A1.Received in saline is a 1.2 cm of tissue core that is frozen for immunofluorescent studies. Received in the is 0.2 cm in lengthtan soft tissue core that is sent to the EM lab for further processing.YFLIGHT MICROSCOPY: Sections show 2 cores of renal cortex (25%) and medulla. Glomeruli: Approximately 14 glomeruli are examined, of which 9 are glomerulus is globally sclerotic. One glomerulus has segmental sclerosis. The remainingglomeruli have expanded mesangial matrix and mesangial hypercellularity. Few of the glomeruli have segmental RBC fragments. One glomerulus has congested capillaries. No double contours or crescents or definite thrombi are seen.Tubules and interstitium: There is about 60- 70% patchy interstitial fibrosis with tubular atrophy and associated chronic inflammation. Foamy macrophages are focally present inthe interstitium. The proximal tubules are focally ectatic with hobnailed epithelium. Vessels: Interlobular arteries have focally severe intimal sclerosis with mucoid hyperplasia. Focal arteries and arterioles have concentric myointimal thickening, Focal arterioles have fibrinoid material. Special stains: Stormy trichrome, PAS and Constantino silver stains were necessary for evaluation of this biopsy and showed expected staining patterns of internal control tissue matrix structures.Direct Immunofluorescence:Histology: H&E- stained sections show 1 segmentally sclerotic and 2 obsolescent glomeruli.Immuno fluorescence findings: IgA: segmental entrapment, 2-3+, positive staining tubular casts present. IgG: segmental capillary and mesangial granular staining 2-3+, positive staining tubular casts present IgM: segmental mesangial staining, 2-3+. C3: segmental mesangial staining/entrapment, 2+, focal arterial staining. C1q: segmental mesangial staining/entrapment, 2+, focal arterial staining Fibrinogen: segmental mesangial staining/entrapment, 2+, focal arterial staining.. Stockwell: segmental mesangial staining/entrapment, 2+, focal arterial staining. Lambda: segmental mesangial staining/entrapment, 2+, focal arterial staining.All polyclonal antibodies used for immunofluorescence staining have been previously tested and shown to have appropriate reactivities with positive control specimens. Diagnostic Electron [...] effaced. The interpretation of this case included the use of immunohistochemistry or special stains.Control Slides Examined: In-house known positive controls were evaluated along with the test tissue. These control slides run alongside of the patients sample show appropriate staining. Internal positive and negative controls when available are evaluated Immunohistochemistry technical testing was performed at [facility], Pathology Laboratory where it was developed and its performance characteristics were de termined. It has not been cleared or approved by the U.S. Food and Drug Administration. The FDA has determined that such clearance or approval is not necessary. The test is used for clinical purposes. It should not be regarded as investigational or for research. This laboratory is certified under the Clinical Laboratory Improvement Amendments of 1988 (CLIA-88) as qualified to perform high complexity clinical laboratory testing.Technical processing for EM evaluation, and electron microscopy imaging was performed at [facility], CV Pathology laboratory, CLIA # [id number], [address] [place] [address], [address], [place] [address]. The EM images were interpreted by the reporting pathologist at [facility], Department of Pathology, [address] [place] [address], [place], [facility], [address] [place], [place] [id number], [place] [place], Department of [facility], [address] [place], [place] [id number], [id number] 13:11:20 Test Item Value Reference Interpretation Comments Range Metanephrine (test 67 pg/mL See_Comment H This jaquan t was developed code = 8445968) and its anal ytical performance characteristics havebeen determined by [facility].It h as not been cleared or [...] (test code = and its analyti aviva 1760339) performance characteristics havebeen determined by [facility].It h as not been cleared or [...] (test code = reference range : strongly 20191106) suggestive of apheochromocyto ma(1). Elevations >1 - 4-fold upper reference range:significa nt but not diagnostic, may be due to medications or stress. Suggestrunning 24 hr urine fractionated me tanephrines and serum Chrom ogranin A forconfirmation . Reference: (1) Alondra Carolina et al, Plasma Grave Cleaner mogranin A or Urine FractionatedMet anephrines Follow-Up Testi ng Improves the Diagnostic Accuracy of PlasmaFractiona john Metanephrines f or Pheochromocytom a. The Journal of ClinicalEndocri nology and Metabolism 93 ( 1),91-95, 2008. For addit ional information, pl ease refer tohttp://educat ion.Revision Military.Symbolic IO/f aq/MetFract Free(This link is being provided for informational/e ducational purposes only.) This test was developed a nd its analytical perf ormance characteristics havebeen determined by [facility].It h as not been cleared or [...] (test code = Performing Lab KAREN) [facility] [address] [place] [address] Maurice Larsen MD, PhD, ARYAN Lab Interpretation Abnormal (test code = 19253-0) [facility] California[facility]regnancy Screen, [id number] 10:04:01 Test Item Value Reference Range Interpretation Comments Preg Test, Ur (test code = 2112-1) Negative [facility] CaliforniaPREGNANCY SCREEN, [id number] 10:04:01 Test Item Value Reference Range Interpretation Comments TEST URINE (BEAKER) (test Negative code = 583) BASIC METABOLIC [id number] 05:16:14 Test Item Value Reference Range Interpretation [...] S NOT APPLICABLE FOR DIALYSIS PATIEN TS. Water Hydrant Installer ID - SITA MBASIC METABOLIC [id number] 06:54:06 Test Item Value Reference Range Interpretation [...] S NOT APPLICABLE FOR DIALYSIS PATIEN TS. Water Hydrant Installer ID - BRUCE Riggs, [id number] 21:09:34 Test Item Value Reference Range Interpretation Comments PRA,LC/MS/MS 1.22 ng/mL/h 0.25-5.82 This test was developed (test code = and its analyti aviva 0482730) performance characteristics havebeen determined by [facility].It h as not been cleared or approved by FDA. This as say has been validatedp ursuant to the CLIA reg ulations and is used for clinical purposes. KAREN (test Performing Lab EZ code = KAREN) [facility] [address] [place] [address] Maurice Larsen MD, PhD, ARYAN [facility] [id number] 06:21:05 Test Item Value Reference Range Interpretation [...] S NOT APPLICABLE FOR DIALYSIS PATIEN TS. Water Hydrant Installer ID - [place] GCBC with platelet count + automated [id number] 05:35:02 Test Item Value Reference Range Interpretation Comments WBC (test code = 6690-2) 9.4 See_Comment [A utomated message] The system [employer] generated this result transmitted ref erence range: 3.5 - 10 .5 K/L. The refe rence range was not u sed to interpret this result as normal/abnor mal. RBC (test code = 789-8) 2.75 See_Comment L [Au tomated message] The system [employer] generated this result transmitted ref erence range: 3.93 - 5 .22 M/L. The refe rence range was not u sed to interpret this result as normal/abnor mal. MCHC (test code = 786-4) 34.5 See_Comment L [A utomated message] The system [employer] generated this result transmitted ref erence range: [...] L [Aut omated message] 777-3) The system [employer] generated this result transmitted ref erence range: 150 - 45 0 K/CU MM. The referen ce range was not u sed to interpret this result as normal/abnor mal. MPV (test code = 11.4 fL 9.4-12.3 58663-9) nRBC (test code = 413) 0 See_Comment [Aut omated message] The system [employer] generated this result transmitted ref erence range: [...] H [Aut omated message] 670) The system [employer] generated this result transmitted ref erence range: 1.56 - 6 .13 K/L. The refe rence range was not u sed to interpret this result as normal/abnor mal. # Lymphs (test code = 1.12 See_Comment L [Auto mated message] 414) The system [employer] generated this result transmitted ref erence range: 1.18 - 3 .74 K/L. The refe rence range was not u sed to interpret this result as normal/abnor mal. # Monos (test code = 0.68 See_Comment H [Autom ated message] 415) The system [employer] generated this result transmitted ref erence range: 0.24 - 0 .36 K/L. The refe rence range was not u sed to interpret this result as normal/abnor mal. # Eos (test code = 416) 0.57 See_Comment H [Au tomated message] The system [employer] generated this result transmitted ref erence range: 0.04 - 0 .36 K/L. The refe rence range was not u sed to interpret this result as normal/abnor mal. # Baso (test code = 417) 0.04 See_Comment [A utomated message] The system [employer] generated this result transmitted ref erence range: 0.01 - 0 .08 K/L. The refe rence range was not u sed to interpret this result as normal/abnor mal. Immature 0 % 0-1 Granulocytes-Relative (test code = 2801) Lab Interpretation (test Abnormal code = 53008-8) [facility] W/PLT COUNT & AUTO [id number] 05:35:02 Test Item Value Reference Range Interpretation [...] (BEAKER) (test code = 2801) Hemoglobin and [id number] 21:54:33 Test Item Value Reference Range Interpretation [...] = 4544-3) KAREN (test code = KAREN) Water Hydrant Installer ID - [id number] Lab Interpretation Abnormal (test code = 96745-3) [facility] CaliforniaHEMOGLOBIN AND [id number] 21:54:33 Test Item Value Reference Range Interpretation Comments HEMOGLOBIN (BEAKER) (test code = 8.2 GM/DL 11.2-15.7 L 410) HEMATOCRIT (BEAKER) (test code = 24.3 % 34.1-44.9 L 411) Water Hydrant Installer ID - 6000U/S, BIOPSY, RENAL (KIDNEY)2021-05-15 19:01:00Still trying to control patient's blood pressure. Have increased her medications today on 05/10/2021.If BP still over 160 tomorrow then will have to cancel biopsy. Please review vital signs before bringing down for procedureReason for exam:->YOKASTA [facility] : 1990 Sex: FFINALREPORT History: YOKASTA PROCEDURE: Following informed written consent, patient was placed in a prone position on the ultrasound stretcher and limited sonographic examination of the patient's kidneys was performed. A skin site was identified, prepped and draped over the patient's left kidney. 2% lidocaine was given locally for anesthesia. Additionally, the patient received 2 mg IV Versed and 100 mcg IV fentanyl for conscious sedation and pain control. Vital signs were monitored and remained stable. Conscious sedation and continuous patient monitoring were provided by the attending radiologist and a registered nurse for 15 minutes during the procedure. Using a posterior approach, ultrasound guidance and an 18-gauge by pins needle, a total of three 18-gauge core tissue samples were obtained from the posterior lower pole cortex of the patient's left kidney and submitted to pathologywho was present for the procedure and deemed the samples adequate. Overall, the patient tolerated the procedure well without immediate complications and was discharged from the department in stable cond ition. FINDINGS: Limited sonographic examination of the patient's left kidney performed prior to, during and following the biopsy demonstrates the needle tip in expected position within the posterior left lower pole renal cortex. After the biopsy, a small amount of fluid is seen around the kidney, possibly a tiny post biopsy hemorrhage. The patient was observed in radiology for an extended period of time and remained stable and asymptomatic. There were no other immediate complications. IMPRESSION: 1. Successful ultrasound-guided core biopsy of the left cheesh-na kidney as described above. Signed: Yian Valdes MDReport Verified Date/Time: 05/15/2021 19:01:19 Reading Location: [address] Body Reading Room [facility] [id number] 05:39:12 Test Item Value Reference Range Interpretation [...] S NOT APPLICABLE FOR DIALYSIS PATIEN TS. Water Hydrant Installer ID - [place] GProthrombin time/[id number] 05:11:40 Test Item Value Reference Interpretation Comments Range Protime (test code = 13.9 See_Comment [Autom ated 5922-2) message] The system which generated this result transmitted reference range : 11.9 - 14.2 seconds. The reference range was not used to interpret this result as normal/abnormal . INR (test code = 1.09 See_Comment [Automated 1061-6) message] The system which generated this result [...] valves. Lab Interpretation Normal (test code = 10457-9) [facility] CaliforniaPROTHROMBIN TIME/[id number] 05:11:40 Test Item Value Reference Range Interpretation Comments PROTIME (BEAKER) 13.9 seconds 11.9-14.2 (test code = 759) INR (BEAKER) (test 1.09 See_Comment [Automat ed message] code = 370) The system [employer] generated this result transmitted ref erence range: <=5.90. The reference range was not used to int erpret this result as normal/abnormal . RECOMMENDED COUMADIN/WARFARIN INR THERAPY RANGESSTANDARD DOSE: 2.0 - 3.0 Includes: PROPHYLAXIS for venous thrombosis, systemic embolization; TREATMENT for venous thrombosis and/or pulmonary embolus.HIGH RISK: Target INR is 2.5-3.5 for patients with mechanical heart valves.CBC W/PLT COUNT & AUTO [id number] 05:09:24 Test Item Value Reference Range Interpretation [...] 0-1 PERCENT (BEAKER) (test code = 2801) [id number] 23:41:04 Test Item Value Reference Interpretation Comments Range Aldosterone (test 2 ng/dL Adult Ref erence code = 1832649) Ranges for Aldosterone: Up right 8:00-10:00 am < or = 28 ng/dL Uprigh t 4:00-6:00 pm < or = 21 ng/dL Supine 8:00-10:00 am 3 -16 ng/dL This test was developed and i ts analytical perf ormance characteristics havebeen determ ined by [facility] .It has not been cleare d or approved by FDA . This assay has been validatedpursua nt to the CLIA regula tions and is used for clinical purpos es. KAREN (test code = Performing Lab EZ KAREN) [facility] [address] [place] [address] Maurice Larsen MD, PhD, ARYAN [facility] METABOLIC [id number] 05:29:21 Test Item Value Reference Range Interpretation [...] S NOT APPLICABLE FOR DIALYSIS PATIEN TS. Water Hydrant Installer ID - SITA MCBC W/PLT COUNT & AUTO [id number] 05:05:15 Test Item Value Reference Range Interpretation [...] (BEAKER) (test code = 2801) Vitamin D, 75-Zboxkhf0456-57-10 05:18:21 Test Item Value Reference Range Interpretation Comments Vitamin D 25-Hydroxy 6.6 ng/mL 6.6-49.9 (test code = 2764) KAREN (test code = KAREN) Effective 04/13/2017: Reference Range ChangeNew: 6.6-49.9 ng/mL Previous: 13.0-47.8 ng/mL Recommended Vitamin D Target Range: 30.0-40.0 ng/mLOperator ID - PIAYA L Lab Interpretation (test Normal code = 40078-1) [facility] CaliforniaVITAMIN D, [id number] 05:18:21 Test Item Value Reference Range Interpretation Comments VITAMIN D 25-OH (BEAKER) (test code 6.6 ng/mL 6.6-49.9 = 2764) Effective 04/13/2017: Reference Range ChangeNew: 6.6-49.9 ng/mL Previous: 13.0- 47.8 ng/mLRecommendedVitamin D Target Range: 30.0-40.0 ng/mLOperator ID - PIAYA LComprehensive metabolic [id number] 05:08:17 Test Item Value Reference Range Interpretation Comments Protein, Total (test 5.4 See_Comment L [Autom ated code = 2885-2) message] The system which generated this result transmit john reference range : 6.0 - 8.3 gm/dL . The reference range was not u sed to interpret th is result as normal/abnormal . Albumin (test code = 3.2 g/dL 3.5-5.0 L 26605-2) Alkaline Phosphatase 40 U/L 40-150 (test code = 6768-6) Total Bilirubin (test 0.6 mg/dL 0.2-1.2 code = 1974-2) Sodium (test code = 139 meq/L 213-657 8886-2) Potassium (test code 4.8 meq/L 3.5-5.1 = 2823-3) Chloride (test code = 103 meq/L 98-107 2075-0) CO2 (test code = 27 meq/L 22-29 2027-9) BUN (test code = 26 mg/dL 7-21 H 3094-0) Creatinine (test code 4.91 mg/dL 0.57-1.25 H = 2160-0) Glucose (test code = 104 mg/dL 70-105 2345-7) Calcium (test code = 8.2 mg/dL 8.4-10.2 L 80258-1) AST (test code = 11 U/L 5-34 1920-8) ALT (test code = 8 U/L 6-55 1742-6) EGFR (test code = 10 mL/min/1.73 [place] [address]-7) NOT ACCURATE CREATININE CLEARANCE IN PREDICTING GLOMERULAR FILTRATION RATE . ESTIMATED GFR I S NOT APPLICABLE FOR DIALYSIS PATIEN TS. KAREN (test code = KAREN) Water Hydrant Installer ID - PIAYA L Lab Interpretation Abnormal (test code = 11626-8) [facility] CaliforniaCOMPREHENSIVE METABOLIC [id number] 05:08:17 Test Item Value Reference Range Interpretation [...] = 382) CO2 (BEAKER) (test 27 meq/L -29 code = 355) BLOOD UREA NITROGEN 26 [...] S NOT APPLICABLE FOR DIALYSIS PATIEN TS. Water Hydrant Installer ID Indra ROWLAND [id number] 05:07:40 Test Item Value Reference Range Interpretation Comments Phosphorus (test code = 5.9 mg/dL 2.3-4.7 H 2777-1) KAREN (test code = KAREN) Water Hydrant Installer ID Indra ROWLAND L Lab Interpretation (test Abnormal code = 96858-4) [facility] CaliforniaPHOSPHORUS2021-11-10 05:07:40 Test Item Value Reference Range Interpretation Comments PHOSPHORUS (BEAKER) (test code = 5.9 mg/dL 2.3-4.7 H 604) Water Hydrant Installer ID Indra ROWLAND [id number] 05:07:39 Test Item Value Reference Range Interpretation Comments Magnesium (test code = 2.1 mg/dL 1.6-2.6 72487-6) KAREN (test code = KAREN) Water Hydrant Installer ID - JANETT L Lab Interpretation (test Normal code = 60931-4) [facility] CaliforniaMAGNESIUM2021-11-10 05:07:39 Test Item Value Reference Range Interpretation Comments MAGNESIUM (BEAKER) (test code = 2.1 mg/dL 1.6-2.6 627) Water Hydrant Installer ID Indra ROWLAND LCalcium, [id number] 04:55:54 Test Item Value Reference Range Interpretation Comments Calcium, Ion (test code = 1993-) 1.05 mmol/L 1.12-1.27 L pH, Blood (test code = 42539-7) 7.48 Lab Interpretation (test code = Abnormal 54691-6) [facility] CaliforniaCALCIUM, [id number] 04:55:54 Test Item Value Reference Range Interpretation Comments CALCIUM IONIZED (BEAKER) (test 1.05 mmol/L 1.12-1.27 L code = 698) PH, BLOOD (BEAKER) (test code = 7.48 1810) CBC W/PLT COUNT & AUTO [id number] 04:47:53 Test Item Value Reference Range Interpretation [...] (test code = 2801) CT, BRAIN, WITHOUT [id number] 22:18:00Unlisted Reason for Exam - Click Yes and Enter Reason Below->No [facility] : 1990 Sex: FFINALREPORT EXAM/TECHNIQUE: Noncontrast CT of the head. Dose modulation, iterative reconstruction, and/or weight based adjustment of the mA/kV was utilized to reduce the radiation dose to as low as reasonably achievable. INDICATION: Headache. COMPARISON: None. FINDINGS: Nino-white differentiation is preserved. No acute intracranial hemorrhage. No extra-axial fluid collection.Right inferior frontal encephalomalacia. Ventricles are normal in [...] Abdulkadir Nunez MDReport Verified Date/Time: 05/12/2021 22:18:02 Double-Stranded DNA (dsDNA) [id number] 10:37:15 Test Item Value Reference Range Interpretation Comments ds DNA Ab (test code = 1055) Negative Negative [facility] CaliforniaDOUBLE-STRANDED DNA (DSDNA) [id number] 10:37:15 Test Item Value Reference Range Interpretation Comments ANTI-DNA DS (BEAKER) (test code = Negative Negative 1055) [id number] 06:54:11 Test Item Value Reference Range Interpretation Comments Cortisol, Total (test code 5.4 ug/dL 3.7-19.4 = 2755) KAREN (test code = KAREN) Water Hydrant Installer MINNA BUCKNER M Lab Interpretation (test Normal code = 17072-3) [facility] CaliforniaCORTISOL2021-11-09 06:54:11 Test Item Value Reference Range Interpretation Comments CORTISOL, TOTAL (BEAKER) (test code 5.4 ug/dL 3.7-19.4 = 2755) Water Hydrant Installer MINNA BUCKNER MBASIC METABOLIC [id number] 06:44:11 Test Item Value Reference Range Interpretation [...] S NOT APPLICABLE FOR DIALYSIS PATIEN TS. Water Hydrant Installer MINNA - SITA MCBC W/PLT COUNT & AUTO [id number] 06:17:13 Test Item Value Reference Range Interpretation [...] PERCENT (BEAKER) (test code = 2801) SCREEN, [id number] 15:54:03 Test Item Value Reference Range Interpretation Comments TEST URINE (BEAKER) (test Negative code = 583) Eosinophil [id number] 14:16:55 Test Item Value Reference Range Interpretation Comments Eosinophil Smear (test code = No EOS seen No EOS seen 33787-2) Lab Interpretation (test code = Normal 72442-1) [facility] CaliforniaEOSINOPHIL SMEAR, [id number] 14:16:55 Test Item Value Reference Range Interpretation Comments EOSINOPHIL SMEAR, URINE (BEAKER) No EOS seen No EOS seen (test code = 1851) Anti-Nuclear Antibody (YUMIKO)2021-05-11 13:06:18 Test Item Value Reference Range Interpretation Comments YUMIKO (test code = 99702-8) Negative Negative KAREN (test code = KAREN) Test performed by IFA method. Lab Interpretation (test Normal code = 11972-2) [facility] CaliforniaANTI-NUCLEAR ANTIBODY (YUMIKO)2021-05-11 13:06:18 Test Item Value Reference Range Interpretation Comments ANTI-NUCLEAR ANTIBODY (YUMIKO) (BEAKER) Negative Negative (test code = 418) Test performed by IFA method.Sodium, random [id number] 11:58:37 Test Item Value Reference Range Interpretation Comments Sodium Urine (test 97 meq/L code = 2955-3) KAREN (test code = Reference Range: No KAREN) NormalsOperator ID - LEEANNE F [facility] CenterODIUM, RANDOM [id number] 11:58:37 Test Item Value Reference Range Interpretation Comments SODIUM URINE (BEAKER) (test code = 97 meq/L 243) Reference Range: No NormalsOperator ID - LEEANNE FCreatinine, random urine 2021-05-11 11:58:36 Test Item Value Reference Range Interpretation Comments Creatinine, Ur 48.3 mg/dL (test code = 2161-8) KAREN (test code = Reference Range: No KAREN) NormalsOperator ID - LEEANNE F [facility] CaliforniaCREATININE, RANDOM [id number] 11:58:36 Test Item Value Reference Range Interpretation Comments CREATININE URINE (BEAKER) (test 48.3 mg/dL code = 375) Reference Range: No NormalsOperator ID Indra FALLON FProtein, random urine 2021-05-11 10:40:59 Test Item Value Reference Range Interpretation Comments Protein, Urine (test code 172 mg/dL 0-14 H = 2888-6) KAREN (test code = KAREN) Water Hydrant Installer ID Indra FALLON F Lab Interpretation (test Abnormal code = 86161-5) [facility] CaliforniaPROTEIN, RANDOM [id number] 10:40:59 Test Item Value Reference Range Interpretation Comments PROTEIN, URINE (BEAKER) (test code 172 mg/dL 0-14 H = 1569) Water Hydrant Installer ID Indra FALLON FUrinalysis w/Dlkqeorfkac2930-57-60 10:37:39 Test Item Value Reference Range Interpretation Comments Color, UA (test code Light Yellow = 5778-6) Clarity, UA (test Hazy code = 5767-9) Specific [place], UA 1.009 1.001-1.035 (test code = 5811-5) pH, UA (test code = 7.5 5.0-8.0 5803-2) Protein, UA (test 200 mg/dL Negative A code = 35933-7) Glucose, UA (test Negative Negative code = 365) Ketones, UA (test Negative Negative code = 2514-8) Bilirubin, UA (test Negative Negative code = 01564-5) Blood, UA (test code Large Negative A = 90623-8) Nitrite, UA (test Negative Negative code = 5802-4) Leukocytes, UA (test Moderate Negative A code = 5799-2) Urobilinogen, UA 0.2 mg/dL 0.2-1.0 (test code = 93744-4) RBC, UA (test code = 5 See_Comment [Autom ated 68593-7) message] The system which generated this result [...] . Bacteria, UA (test Rare code = 36830-0) Squam Epithel, UA 7 See_Comment [Automate d (test code = 65700-5) messag e] The system which generated this [...] Crystals, Urine (test None Seen code = 47811-5) Specimen Source (test code = 2795) KAREN (test code = KAREN) Water Hydrant Installer ID - [auto]Water Hydrant Installer ID - tech Lab Interpretation Abnormal (test code = 96922-0) [facility] CaliforniaURINALYSIS W/ [id number] 10:37:39 Test Item Value Reference Range Interpretation [...] = 1521) SOURCE(BEAKER) (test code = 2795) Water Hydrant Installer ID - [auto]Water Hydrant Installer ID - techPeripheral Blood Smear - Path Review 2021-05-11 09:20:57 Test Item Value Reference Range Interpretation Comments Pathologist Review No circulating blasts. (test code = 2640) No significantly increased schistocytes. Pathologist: (test Carlos Armenen, code = 2849) M.D.(electronic signature) [facility] CaliforniaPERIPHERAL BLOOD SMEAR - PATHOLOGIST [id number] 09:20:57 Test Item Value Reference Range Interpretation Comments PERIPHERAL SMR REVIEW No circulating blasts. (BEAKER) (test code = No significantly 2640) increased schistocytes. [id number] Carlos Blieden, (BEAKER) (test code = M.D.(electronic 2846) signature) Peripheral Blood Smear - Hold [id number] 08:50:08 Test Item Value Reference Range Interpretation Comments Peripheral Smear Save (test code = saved 1815) [facility] CaliforniaPERIPHERAL BLOOD SMEAR - HOLD [id number] 08:50:08 Test Item Value Reference Range Interpretation Comments PERIPHERAL SMEAR SAVE (BEAKER) (test saved code = 1815) BASIC METABOLIC [id number] 05:30:46 Test Item Value Reference Range Interpretation [...] S NOT APPLICABLE FOR DIALYSIS PATIEN TS. Water Hydrant Installer ID - SITA MHepatic function kvuzw4486-26-21 05:29:36 Test Item Value Reference Range Interpretation Comments Protein, Total (test 4.9 See_Comment L [Autom ated code = 2885-2) message] The system which generated this result transmit john reference range : 6.0 - 8.3 gm/dL . The reference range was not u sed to interpret th is result as normal/abnormal . Albumin (test code = 2.9 g/dL 3.5-5.0 L 98540-2) Total Bilirubin (test 0.7 mg/dL 0.2-1.2 code = 1975-2) Bilirubin, Direct 0.3 mg/dL 0.1-0.5 (test code = 1968-7) Alkaline Phosphatase 29 U/L 40-150 L (test code = 6768-6) AST (test code = 14 U/L 5-34 1920-8) ALT (test code = 14 U/L 6-55 1742-6) KAREN (test code = KAREN) Water Hydrant Installer ID - SITA M Lab Interpretation Abnormal (test code = 98436-8) [facility] CaliforniaHEPATIC FUNCTION [id number] 05:29:36 Test Item Value Reference Range Interpretation [...] (SGOT) (BEAKER) (test code = 14 U/L 534 353) ALT (SGPT) (BEAKER) (test code = 14 U/L 655 347) Water Hydrant Installer ID - SITA BTGQRPBZEDV7140-94-99 05:29:35 Test Item Value Reference Range Interpretation Comments PHOSPHORUS (BEAKER) (test code = 4.3 mg/dL 2.3-4.7 604) Water Hydrant Installer ID - SITA [id number] 05:29:34 Test Item Value Reference Range Interpretation Comments MAGNESIUM (BEAKER) (test code = 1.8 mg/dL 1.6-2.6 627) Water Hydrant Installer ID - SITA MPROTHROMBIN TIME/[id number] 05:27:17 Test Item Value Reference Range Interpretation Comments PROTIME (BEAKER) 14.1 seconds 11.9-14.2 (test code = 759) INR (BEAKER) (test 1.11 See_Comment [Automat ed message] code = 370) The system [employer] generated this result transmitted ref erence range: <=5.90. The reference range was not used to int erpret this result as normal/abnormal . RECOMMENDED COUMADIN/WARFARIN INR THERAPY RANGESSTANDARD DOSE: 2.0 - 3.0 Includes: PROPHYLAXIS for venous thrombosis, systemic embolization; TREATMENT for venous thrombosis and/or pulmonary embolus.HIGH RISK: Target INR is 2.5-3.5 for patients with mechanical heart valves.CBC W/PLT COUNT & AUTO [id number] 05:13:41 Test Item Value Reference Range Interpretation [...] Not Detected, (test code = Negative, See 59752-2) external report for linked test SARS-COV-2 [facility] J[facility]AN PERFORMING LAB (test code = 44205-1) KAREN (test code = Negative result for [...] of the Act. Fact Sheet for Healthcare Providers:https://www.[employer]/sites/default/f eric/product/documents/F act_Sheet_HC_Providers_L lxf_AXYL-EiI-0.pdf Fact Sheet for Healthcare Patients:https://www.[employer]/sites/default/fi les/product/documents/Fa ct_Sheet_Patients_Lyra_S ARS-CoV-2.pdf Performing Laboratory:[place] [address], [place] [address] [place], [place] [address]ARS-COV2/RT-PCR ([facility])2021-05-10 09:26:37 Test Item Value Reference Range Interpretation Comments SARS-COV2/RT-PCR (test Negative Not Detected, Negative, code = 1374009) See external report for linked test SARS-COV-2 PERFORMING LAB [facility] JHOAN (test code = 2438339) Negative result for this test determines that [...] individuals suspected of COVID-19 by their healthcare provider.This test [...] justifying the authorization of the emergency use ofin vitro diagnostic tests for detection and/or diagnosis of COVID-19 is terminated under Section 564(b)(2) of the Act or the EUA is revoked under Section 564(g) of the Act.Fact Sheet for Healthcare Prov iders:https://www.[employer]/sites/default/files/product/documents/Fact_Sheet_HC _Cssinxsgu_Qpvg_QXEB-KyX-7.pdfFact Sheet for Healthcare Patients:https://www.[employer]/sites/default/files/product/docume nts/Kbte_Ltbce_Roiovblg_Iwnt_OPWV-AfE-5.pdfPerforming Laboratory:[facility], [place] [address]Ljfrxxhwej [id number] 08:50:45 Test Item Value Reference Range Interpretation Comments Hemoglobin A1C (test code = 4548-4) 5.1 % 4.3-6.1 Lab Interpretation (test code = Normal 10680-5) [facility]MO[facility] [id number] 08:50:45 Test Item Value Reference Range Interpretation Comments HEMOGLOBIN A1C (BEAKER) (test code = 5.1 % 4.3-6.1 368) hCG, quantitative, [id number] 05:45:56 Test Item Value Reference Range Interpretation Comments hCG Quant (test code <1 See_Comment [Autom ated = 57111-7) message] The system which generated this result [...] 10,000-100,000 6-8 Weeks 15,000-200,000 2-3 Months 10,000-100,000 Water Hydrant Installer ID - JANETT Ng Lab Interpretation Normal (test code = 12415-1) [facility] CaliforniaHCG, QUANTITATIVE, [id number] 05:45:56 Test Item Value Reference Range Interpretation Comments GONADOTROPIN, CHORIONIC (HCG) QUANT < mIU/mL 0-10 (BEAKER) (test code = 649) Non- Females: <10 mIU/mL Females: Gestation Age Reference Range(mIU/mL) 0.2-1 Week 5-50 1-2 Weeks 50-500 2-3 Weeks 100-5,000 3-4 Weeks 500-10,000 4-5 Weeks 1,000-50,000 5-6 Weeks 10,000-100,000 6-8 Weeks 15,000- 200,000 2-3 Months 10,000-100,000 Water Hydrant Installer ID - JANETT LHepatitis B Panel 2021-05-10 05:44:41 Test Item Value Reference Range Interpretation Comments Hep B Core Total Ab Nonreactive Nonreactive (test code = 81944-2) Hep B S Ab (test 20.7 See_Comment H [Automated code = 70519-5) message] The system which generated this result transmitted reference range : <8.0 mIU/mL. e reference range was not used to interpret this result as normal/abnormal . HBsAg Screen (test Nonreactive Nonreactive code = 5195-3) KAREN (test code = Water Hydrant Installer ID - KAREN) PIAYA L Lab Interpretation Abnormal (test code = 38331-5) [facility] CaliforniaHEPATITIS B [id number] 05:44:41 Test Item Value Reference Range Interpretation Comments HEPATITIS B CORE TOTAL ANTIBODY Nonreactive Nonreactive (BEAKER) (test code = 497) HEPATITIS B SURFACE ANTIBODY 20.7 mIU/mL <8.0 H (BEAKER) (test code = 647) HEPATITIS B SURFACE ANTIGEN (2) Nonreactive Nonreactive (BEAKER) (test code = 2585) Water Hydrant Installer MINNA ROWLAND LBASIC METABOLIC [id number] 05:37:00 Test Item Value Reference Range Interpretation [...] S NOT APPLICABLE FOR DIALYSIS PATIEN TS. Water Hydrant Installer ID Indra ROWLAND [id number] 05:36:12 Test Item Value Reference Range Interpretation Comments PHOSPHORUS (BEAKER) (test code = 3.4 mg/dL 2.3-4.7 604) Water Hydrant Installer ID Indra ROWLAND LHEPATIC FUNCTION [id number] 05:36:12 Test Item Value Reference Range Interpretation [...] (test code = 14 U/L 6-55 347) Water Hydrant Installer ID - JANETT [id number] 05:36:11 Test Item Value Reference Range Interpretation Comments MAGNESIUM (BEAKER) (test code = 1.9 mg/dL 1.6-2.6 627) Water Hydrant Installer ID - JANETT [id number] 05:29:10 Test Item Value Reference Range Interpretation Comments Haptoglobin (test code = <8 14-258 L 4542-7) KAREN (test code = KAREN) Water Hydrant Installer ID - JANETT L Lab Interpretation (test Abnormal code = 20725-5) [facility] CaliforniaHAPTOGLOBIN2021-11-07 05:29:10 Test Item Value Reference Range Interpretation Comments HAPTOGLOBIN (BEAKER) (test code = < mg/dL 14-258 L 366) Water Hydrant Installer ID - JANETT LComplement Component [id number] 05:23:42 Test Item Value Reference Range Interpretation Comments C3 Complement (test code = 69 mg/dL 82-193 L 4487-5) KAREN (test code = KAREN) Water Hydrant Installer ID - JANETT L Lab Interpretation (test Abnormal code = 52578-3) [facility] CaliforniaCOMPLEMENT COMPONENT [id number] 05:23:42 Test Item Value Reference Range Interpretation Comments C3 COMPLEMENT (BEAKER) (test code = 69 mg/dL 82-193 L 393) Water Hydrant Installer ID - JANETT LComplement Component [id number] 05:23:41 Test Item Value Reference Range Interpretation Comments C4 Complement (test code = 23 mg/dL 15-57 44910-5) KAREN (test code = KAREN) Water Hydrant Installer ID - JANETT L Lab Interpretation (test Normal code = 67091-3) [facility] CaliforniaCOMPLEMENT COMPONENT [id number] 05:23:41 Test Item Value Reference Range Interpretation Comments C4 COMPLEMENT (BEAKER) (test code = 23 mg/dL 15-57 394) Water Hydrant Installer ID - JANETT LCBC W/PLT COUNT & AUTO [id number] 05:20:24 Test Item Value Reference Range Interpretation [...] PERCENT (BEAKER) (test code = 2801) PROTHROMBIN TIME/[id number] 05:17:58 Test Item Value Reference Range Interpretation Comments PROTIME (MERLE) 14.7 seconds 11.9-14.2 H (test code = 759) INR (MERLE) (test 1.17 See_Comment [Automat ed message] code = 370) The system [employer] generated this result transmitted ref erence range: <=5.90. The reference range was not used to int erpret this result as normal/abnormal . RECOMMENDED COUMADIN/WARFARIN INR THERAPY RANGESSTANDARD DOSE: 2.0 - 3.0 Includes: PROPHYLAXIS for venous thrombosis, systemic embolization; TREATMENT for venous thrombosis and/or pulmonary embolus.HIGH RISK: Target INR is 2.5-3.5 for patients with mechanical heart valves.U/S, RENAL, [id number] 01:22:00Reordered per original order due to many scans and procedures and limited staffReason for exam:->acute renal failureShould this be performed at the bedside?->Yes [facility] 1990 Sex: FFINALREPORT Renal ultrasound dated 05/09/2021 CLINICAL HISTORY: Renal dysfunction. COMPARISON: None Comment: Real-time transabdominal renal ultrasound was performed. Right kidney measures 8.5 x 3.4 x 4.3 cm. Left kidney measures 8.5 x 3.7 x 5.0 cm. Right renal cortex measures 1.5 cm. Left renal cortex measures 1.3 cm. Renal parenchymal echogenicity: Elevated. No hydronephrosis, nephrolithiasis or solid mass is seen. No cyst is identified on either kidney. Doppler ultrasound demonstrates a patent main renal artery and vein bilaterally. The bladder volume measures 18 cc. Impression: Small, echogenic kidneys, a nonspecific appearance suggesting chronic renal disease. Signed: Sara Khan MDReport Verified Date/Time: 05/10/2021 01:22:15 Hepatitis panel, [id number] 21:50:13 Test Item Value Reference Range Interpretation Comments Hep A IgM (test code = Nonreactive Nonreactive 53468-8) Hep B C IgM (test code = Nonreactive Nonreactive 73481-6) Hepatitis C Ab (test code = Nonreactive Nonreactive 03063-8) HBsAg Screen (test code = Nonreactive Nonreactive 5195-3) KAREN (test code = KAREN) Water Hydrant Installer ID - DB Lab Interpretation (test Normal code = 61175-5) [facility] CaliforniaHEPATITIS PANEL, [id number] 21:50:13 Test Item Value Reference Range Interpretation Comments HEPATITIS A IGM ANTIBODY (BEAKER) Nonreactive Nonreactive (test code = 498) HEPATITIS B CORE IGM ANTIBODY Nonreactive Nonreactive (BEAKER) (test code = 645) HEPATITIS C ANTIBODY (BEAKER) Nonreactive Nonreactive (test code = 367) HEPATITIS B SURFACE ANTIGEN (2) Nonreactive Nonreactive (BEAKER) (test code = 2585) Water Hydrant Installer ID - DBVitamin [id number] 21:05:30 Test Item Value Reference Range Interpretation Comments Vitamin B12 (test code = 346 pg/mL 610-984 6004-9) KAREN (test code = KAREN) Water Hydrant Installer ID - GRISELDA B Lab Interpretation (test Normal code = 83410-3) [facility] CaliforniaVITAMIN [id number] 21:05:30 Test Item Value Reference Range Interpretation Comments VITAMIN B12 (BEAKER) (test code = 346 pg/mL 213-816 774) Water Hydrant Installer ID - GRISELDA [id number] 20:58:23 Test Item Value Reference Range Interpretation Comments Ferritin (test code = 143.75 ng/mL 5.00-275.00 2276-4) KAREN (test code = KAREN) Water Hydrant Installer ID - GRISELDA B Lab Interpretation (test Normal code = 12196-8) [facility] CaliforniaFERRITIN2021-11-06 20:58:23 Test Item Value Reference Range Interpretation Comments FERRITIN (BEAKER) (test code = 143.75 ng/mL 5.00-275.00 361) Water Hydrant Installer ID - GRISELDA BIron, TIBC, % sat. (without ferritin)2021-05-09 20:37:27 Test Item Value Reference Range Interpretation Comments Iron (test code = 2498-4) 43.0 ug/dL 40.0-160.0 TIBC (test code = 2500-7) 205 ug/dL 250-450 L Iron % Saturation (test 21 % 20-55 code = 2502-3) KAREN (test code = KAREN) Water Hydrant Installer ID - GRISELDA B Lab Interpretation (test Abnormal code = 74006-1) [facility] CaliforniaIRON, TIBC, % SAT. (WITHOUT FERRITIN)2021-05-09 20:37:27 Test Item Value Reference Range Interpretation Comments IRON (BEAKER) (test code = 547) 43.0 ug/dL 40.0-160.0 TOTAL IRON BINDING CAPACITY 205 ug/dL 250-450 L (BEAKER) (test code = 769) IRON % SATURATION (2) (BEAKER) 21 % 20-55 (test code = 2590) Water Hydrant Installer ID - GRISELDA BType and screen, [id number] 18:57:00 Test Item Value Reference Range Interpretation Comments ABO/RH AUTOMATED (BEAKER) (test O POSITIVE code = 2260) Ab Scrn (test code = 890-4) NEGATIVE [facility] CaliforniaFibrin soluble [id number] 18:16:36 Test Item Value Reference Range Interpretation Comments Fibrin Soluble Monomer (test code = Negative 10603-1) [facility] CaliforniaFIBRIN SOLUBLE [id number] 18:16:36 Test Item Value Reference Range Interpretation Comments FIBRIN SOLUBLE MONOMER (BEAKER) Negative (test code = 1416) PERIPHERAL BLOOD SMEAR - HOLD [id number] 18:01:08 Test Item Value Reference Range Interpretation Comments PERIPHERAL SMEAR SAVE (BEAKER) (test saved code = 1815) Manual [id number] 17:45:23 Test Item Value Reference Range Interpretation Comments % Neutros (test code = 97 % 2816) % Monos (test code = 1 % 281) % Bands (test code = 2 % [...] = 3438) KAREN (test code = KAREN) Water Hydrant Installer ID - MacyOperator ID - Stacy comments: Slide comments: Lab Interpretation Abnormal (test code = 08459-4) [facility](CELLAVISION MANUAL DIFF)2021-05-09 17:45:23 Test Item Value Reference [...] CONCENTRATION Decreased (CELLAVISION)(BEAKER) (test code = 3438) Water Hydrant Installer ID - [id number] ID - Stacy comments: Slide comments:BASIC METABOLIC [id number] 17:12:57 Test Item Value Reference Range Interpretation [...] S NOT APPLICABLE FOR DIALYSIS PATIEN TS. Water Hydrant Installer ID - DBLactate dehydrogenase (LDH)2021-05-09 17:12:52 Test Item Value Reference Range Interpretation Comments LDH (test code = 2532-0) 569 U/L 125-220 H KAREN (test code = KAREN) Water Hydrant Installer ID - DB Lab Interpretation (test Abnormal code = 91732-1) [facility] CaliforniaLACTATE DEHYDROGENASE (LDH)2021-05-09 17:12:52 Test Item Value Reference Range Interpretation Comments LACTATE DEHYDROGENASE (BEAKER) (test 569 U/L 125-220 H code = 635) Water Hydrant Installer ID - [id number] 17:12:51 Test Item Value Reference Range Interpretation Comments PHOSPHORUS (BEAKER) (test code = 4.8 mg/dL 2.3-4.7 H 604) Water Hydrant Installer ID - DBHEPATIC FUNCTION [id number] 17:12:51 Test Item Value Reference Range Interpretation [...] (test code = 6 U/L 6-55 347) Water Hydrant Installer ID - [id number] 17:12:50 Test Item Value Reference Range Interpretation Comments MAGNESIUM (BEAKER) (test code = 2.2 mg/dL 1.6-2.6 627) Water Hydrant Installer ID - UWYivllpohap0329-10-19 17:01:46 Test Item Value Reference Range Interpretation Comments Fibrinogen (test code = 3255-7) 287 mg/dl 225-434 Lab Interpretation (test code = Normal 87491-3) [facility] CaliforniaFIBRINOGEN2021-11-06 17:01:46 Test Item Value Reference Range Interpretation Comments FIBRINOGEN LEVEL (BEAKER) (test 287 mg/dl 225-434 code = 658) PROTHROMBIN TIME/[id number] 16:56:50 Test Item Value Reference Range Interpretation Comments PROTIME (BEAKER) 14.7 seconds 11.9-14.2 H (test code = 759) INR (BEAKER) (test 1.17 See_Comment [Automat ed message] code = 370) The system [employer] generated this result transmitted ref erence range: <=5.90. The reference range was not used to int erpret this result as normal/abnormal . RECOMMENDED COUMADIN/WARFARIN INR THERAPY RANGESSTANDARD DOSE: 2.0 - 3.0 Includes: PROPHYLAXIS for venous thrombosis, systemic embolization; TREATMENT for venous thrombosis and/or pulmonary embolus.HIGH RISK: Target INR is 2.5-3.5 for patients with mechanical heart valves.CBC W/PLT COUNT & AUTO [id number] 16:51:17 Test Item Value Reference Range Interpretation [...] PERCENT (BEAKER) (test code = 2801) Reticulocyte [id number] 16:50:26 Test Item Value Reference Range Interpretation Comments % Retic (test code = 2.9 % 0.5-1.7 H 57937-8) KAREN (test code = KAREN) Water Hydrant Installer ID - [id number] Lab Interpretation (test Abnormal code = 61146-9) [facility] CaliforniaRETICULOCYTE [id number] 16:50:26 Test Item Value Reference Range Interpretation Comments RETICULOCYTE COUNT PCT (BEAKER) (test 2.9 % 0.5-1.7 H code = 575) Water Hydrant Installer ID - [id number], CHEST, 1 VIEW, NON [id number] 14:52:00Reason for exam:->acute renal failureShould this be performed at the bedside?->Yes [facility] : 1990 Sex: FFINALREPORT RAD, CHEST, 1 VIEW, NON DEPT INDICATION: acute renal failure COMPARISON:Prior day's exam FINDINGS: Portable frontal view of the chest. IMPRESSION: Support Lines: Central catheter tip overlies the atriocaval junction Lungs and pleura: Perihilar interstitial thickening, which may indicate mild fluid overload and/or atypical infection in the appropriate clinical setting. No soraida airspace edema or focal pneumonia. No significant pneumothorax. Heart and mediastinum: Stable contours. Additional findings: None. Signed: Mila Butt [facility] Verified Date/Time: 05/09/2021 14:52:43
--- NOTE | 2023-05-18 20:42 | RAD REPORT ---
EXAM DESCRIPTION: RAD - Chest Single View - 05/18/2023 8:36 pm CLINICAL HISTORY: CHEST PAIN COMPARISON: Chest Pa And Lat (2 Views) dated 02/15/2022; Chest Single View dated 05/29/2021; Chest Si ngle View dated 05/07/2021; Chest Single View dated 05/07/2021 FINDINGS: Lines: None. Lungs: No evidence of edema or pneumonia. Pleural: No significant pleural effusions or pneumothorax. Cardiac: The heart size is within normal limits. Mediastinum: Within normal limits. Bones: No acute fractures. Other: None IMPRESSION: No acute cardiopulmonary disease.
[2023-05-18] MEDS ORDERED: HYDRALAZINE HCL 20 MG/ML VIAL ONE (21:40)
[2023-05-18 21:59] LABS: Absolute Lymphocytes (CBC) 1.4 K/uL (0.7-4.9); Hematocrit 24.7 % (36.0-45.0); Lymphocytes % 26.3 % (15.3-44.8); MCV 78.7 fL (80-100); Platelets 220 thou/uL (152-406); RBC Red Blood Cell Count 3.13 M/uL (3.86-4.86)
[2023-05-18 22:13] LABS: Protime INR 1.08
[2023-05-18 22:14] LABS: Specific Gravity 1.015 (1.005-1.030)
[2023-05-18 22:15] LABS: ALT/SGPT 17 U/L (13-56); AST/SGOT 10 U/L (15-37); Albumin 3.1 g/dL (3.4-5.0); Alkaline Phosphatase 68 U/L (45-117); BUN Blood Urea Nitrogen 35 mg/dL (7-18); Bicarbonate 19 mEq/L (21-32); Bilirubin Total 0.3 mg/dL (0.2-1.0); Glomerular Filtration Rate 19 ml/min (=/>90); Glucose Level 111 mg/dL (74-106); NT PRO-BNP 16419 pg/mL (<125); Potassium 4.3 mEq/L (3.5-5.1); Protein, Total 6.1 g/dL (6.4-8.2); Sodium Level 138 mEq/L (136-145); Troponin High Sensitivity 18.8 pg/mL (<58.9)
[2023-05-18 22:16] LABS: Bilirubin Direct < 0.1 mg/dL (0-0.2); Bilirubin Indirect, Calculated ND mg/dL (0.2-0.8)
[2023-05-18 22:29] LABS: Specific Gravity 1.016 (1.005-1.030); Urine Bacteria None Seen /HPF (<20); Urine Bilirubin NEGATIVE (Negative); Urine Blood 2+ (Negative); Urine Clarity Turbid (Clear); Urine Color Light-Yellow (Yellow); Urine Glucose NEGATIVE (Negative); Urine Protein 3+ (Negative); Urine Urobilinogen Normal (Normal); Urine WBC Clump Rare /HPF (None Seen)
[2023-05-19] MEDS ORDERED: ONDANSETRON 4 MG/2 ML VIAL ONE ×3 (00:09→04:23)
[2023-05-19] MEDS ORDERED: FUROSEMIDE 40 MG/4 ML VIAL ONE (00:09)
[2023-05-19] MEDS ORDERED: LABETALOL 20 MG/4ML SYRINGE IV ONE (00:47)
--- NOTE | 2023-05-19 00:54 | ER ---
Nurse's Notes [facility] Name: Shaun Lopez Age: 32 yrs Sex: Female : 1990 Arrival Date: 05/18/2023 Time: 19:19 Bed 19 Private MD: Diagnosis: Acute kidney failure, unspecified Presentation: 05/18 19:28 Chief complaint: Patient states: "I feel like I can't catch my breath and when I lay mb9 down I feel like I can't breathe. This has been happening for the past 2 days. I'm not sick or coughing so i don't know what's going on". Coronavirus screen: Vaccine status: Patient reports receiving the 2nd dose of the covid vaccine. Ebola Screen: No symptoms or risks identified at this time. Initial Sepsis Screen: Does the patient meet any 2 criteria? No. Patient's initial sepsis screen is negative. Does the patient have a suspected source of infection? No. Patient's initial sepsis screen is negative. Risk Assessment: Do you want to hurt yourself or someone else? Patient reports no desire to harm self or others. Onset of symptoms was 2022. 19:28 Method Of Arrival: Ambulatory mb9 19:28 Acuity: VERNA 2 mb9 Triage Assessment: 19:34 General: Appears uncomfortable, Behavior is calm, cooperative. Pain: Denies pain. mb9 Neuro: [place] Agitation-Sedation Scale (RASS): 0 - Alert and Calm Level of Consciousness is awake, alert, obeys commands, Oriented to person, place, time, situation, Appropriate for age. Cardiovascular: Reports since chest pressure. Respiratory: Reports shortness of breath. GI: No signs and/or symptoms were reported involving the gastrointestinal system. : No signs and/or symptoms were reported regarding the genitourinary system. Derm: Skin is pink, warm \\T\\ dry. Musculoskeletal: Range of motion: intact in all extremities. 21:15 Respiratory: Onset: The symptoms/episode began/occurred 2 days ago, the patient has km8 mild shortness of breath. Historical: - Allergies: 19:29 Bactrim; mb9 - Home Meds: 19:31 mycophenolate mofetil 250 mg oral capsule 3 caps [Active]; dapsone 100 mg Oral tablet 1 mb9 tab [Active]; spironolactone 25 mg Oral tablet 1 tab [Active]; valganciclovir 450 mg oral tablet 2 tabs once [Active]; metoprolol tartrate 100 mg Oral tablet 1 tab [Active]; carvedilol 25 mg oral tablet 2 times per day [Active]; dicyclomine 20 mg Oral tablet [Active]; - PMHx: 19:26 End stage renal disease; Hypertension; Dialysis; brain tumor-removed; Migraines; mb9 Seizures; - PSHx: 19:26 brain SX x 2; section; kidney biopsy; mb9 19:29 kidney transplant; Fistula- L arm; mb9 - Immunization history:: Adult Immunizations up to date. - Social history:: Smoking status: Patient denies any tobacco usage or history of. Screenin:15 [facility] ED Fall Risk Assessment (Adult) History of falling in the last 3 months, km8 including since admission No falls in past 3 months (0 pts) Confusion or Disorientation No (0 pts) Intoxicated or Sedated No (0 pts) Impaired Gait No (0 pts) Mobility Assist Device Used No (0 pt) Altered Elimination No (0 pt) Score/Fall Risk Level 0 - 2 = Low Risk Oriented to surroundings, Maintained a safe environment, Educated pt \\T\\ family on fall prevention, incl call for assistance when getting out of bed, Assessed \\T\\ reinforced patient's understanding of fall precautions. Abuse screen: Denies threats or abuse. Denies injuries from another. Nutritional screening: No deficits noted. Tuberculosis screening: No symptoms or risk factors identified. Assessment: 21:15 General: Appears in no apparent distress. comfortable, Behavior is calm, cooperative, km8 appropriate for age. 21:15 Pain: Complains of pain in chest Pain currently is 6 out of 10 on a pain scale. Quality km8 of pain is described as heavy. Neuro: [place] Agitation-Sedation Scale (RASS): 0 - Alert and Calm Level of Consciousness is awake, alert, obeys commands, Oriented to person, place, time, situation. Cardiovascular: Reports chest pain, shortness of breath, Capillary refill < 3 seconds Patient's skin is warm and dry. Rhythm is sinus tachycardia Chest pain quality is heaviness, is located in anterior chest wall is aggravated by activity, breathing. Respiratory: Reports shortness of breath Airway is patent Respiratory effort is even, unlabored, Respiratory pattern is regular, symmetrical, Breath sounds are clear bilaterally. GI: No signs and/or symptoms were reported involving the gastrointestinal system. : No signs and/or symptoms were reported regarding the genitourinary system. EENT: No signs and/or symptoms were reported regarding the EENT system. Derm: Skin is intact, is healthy with good turgor, Skin is dry, Skin is pink, warm \\T\\ dry. normal, Skin temperature is warm. Musculoskeletal: No signs and/or symptoms reported regarding the musculoskeletal system. Range of motion: intact in all extremities. 22:13 Reassessment: Patient appears in no apparent distress at this time. No changes from km8 previously documented assessment. Patient and/or family updated on plan of care and expected duration. Pain level reassessed. Patient is alert, oriented x 3, equal unlabored respirations, skin warm/dry/pink. 23:00 Reassessment: Patient appears in no apparent distress at this time. No changes from km8 previously documented assessment. Patient and/or family updated on plan of care and expected duration. Pain level reassessed. Patient is alert, oriented x 3, equal unlabored respirations, skin warm/dry/pink. 05/19 00:02 Reassessment: Patient appears in no apparent distress at this time. Patient and/or km8 family updated on plan of care and expected duration. Pain level reassessed. Patient is alert, oriented x 3, equal unlabored respirations, skin warm/dry/pink. pt vomiting; medication given. 02:30 Reassessment: Patient appears in no apparent distress at this time. Patient and/or km8 family updated on plan of care and expected duration. Pain level reassessed. Patient is alert, oriented x 3, equal unlabored respirations, skin warm/dry/pink. Patient states symptoms have improved. 02:58 General: nurse to nurse given to JERALD White at [facility] in [place]. km8 03:00 Reassessment: Patient appears in no apparent distress at this time. Patient and/or km8 family updated on plan of care and expected duration. Pain level reassessed. Patient is alert, oriented x 3, equal unlabored respirations, skin warm/dry/pink. 04:00 Reassessment: Patient and/or family updated on plan of care and expected duration. Pain km8 level reassessed. Patient is alert, oriented x 3, equal unlabored respirations, skin warm/dry/pink. pt vomiting; CHITRA Giles notified; see new orders. 06:04 Reassessment: Patient appears in no apparent distress at this time. Patient and/or km8 family updated on plan of care and expected duration. Pain level reassessed. Patient is alert, oriented x 3, equal unlabored respirations, skin warm/dry/pink. Patient states symptoms have improved. Vital Signs: 05/18 19:28 BP 212 / 137; Pulse 101; Resp 18; Temp 98.2; Pulse Ox 100% ; Weight 61.23 kg; Height 5 mb9 ft. 1 in. ; 21:15 BP 197 / 129; Pulse 102; Resp 16; Pulse Ox 100% on R/A; km8 21:30 BP 195 / 120; Pulse 101; Resp 16; Pulse Ox 100% on R/A; km8 22:00 BP 185 / 119; Pulse 97; Resp 16 S; Pulse Ox 100% on R/A; km8 22:30 BP 185 / 121; Pulse 99; Resp 16; Pulse Ox 100% on R/A; km8 23:53 BP 196 / 121; Pulse 121; Resp 18; Pulse Ox 100% on R/A; km8 05/19 00:00 BP 187 / 123; Pulse 117; Resp 16; Pulse Ox 100% on R/A; km8 00:40 BP 179 / 120; Pulse 109; Resp 16; Pulse Ox 96% on R/A; km8 01:05 BP 169 / 109; Pulse 101; Resp 16; Pulse Ox 99% on R/A; km8 01:30 BP 152 / 97; Pulse 99; Resp 13 S; Pulse Ox 98% on R/A; km8 02:00 BP 148 / 103; Pulse 92; Resp 16 S; Pulse Ox 98% on R/A; km8 02:30 BP 145 / 98; Pulse 92; Resp 16 S; Pulse Ox 100% on R/A; km8 04:30 BP 150 / 103; Pulse 92; Pulse Ox 98% on R/A; km8 05:00 BP 152 / 100; Pulse 95; Resp 16; Pulse Ox 98% ; km8 05:30 BP 147 / 98; Pulse 93; Resp 16; Pulse Ox 98% on R/A; km8 06:00 BP 150 / 99; Pulse 87; Resp 16; Pulse Ox 99% ; km8 05/18 19:28 Body Mass Index 25.51 (61.23 kg, 154.94 cm) mb9 [place] Coma Score: 05/18 21:15 Eye Response: spontaneous(4). Motor Response: obeys commands(6). Verbal Response: km8 oriented(5). Total: 15. ED Course: 19:25 Patient arrived in ED. gm2 19:26 Arm band placed on. mb9 19:29 Javon Roy PA is PHCP. cp 19:29 Abdoul Burris MD is Attending Physician. cp 19:29 Triage completed. mb9 20:38 XRAY Chest (1 view) In Process Unspecified. EDMS 21:04 Dorita Stevens, JERALD is Primary Nurse. km8 21:15 Patient has correct armband on for positive identification. Bed in low position. Call km8 light in reach. Side rails up X 1. Client placed on continuous cardiac and pulse oximetry monitoring. NIBP monitoring applied. groundwater monitoring technician on. Door closed. Noise minimized. Lights dimmed. Warm blanket given. 21:15 Patient maintains SpO2 saturation greater than 95% on room air. km8 21:21 Inserted saline lock: 20 gauge in right antecubital area, using aseptic technique. km8 Blood collected. 21:24 Urinalysis W/Microscopic Sent. km8 21:25 PREGU Sent. km8 21:25 Basic Metabolic Panel Sent. km8 21:25 CBC with Diff Sent. km8 21:25 LFT's Sent. km8 21:25 Magnesium Sent. km8 21:25 NT PRO-BNP Sent. km8 21:25 PT-INR Sent. km8 21:25 Troponin HS Sent. km8 23:32 CT Chest Wo Con In Process Unspecified. EDMS 05/19 00:[address] [facility]. rv1 01:24 Provided Education on: transfer process. km8 02:17 He Leal MD is Attending Physician. cp 04:32 CT Head Brain wo Cont In Process Unspecified. EDMS 04:57 No provider procedures requiring assistance completed. km8 06:33 Patient transferred, IV remains in place. km8 Administered Medications: 05/18 21:31 Drug: hydrALAZINE IVP 10 mg IVP once Route: IVP; Site: right antecubital; 8 22:00 Follow up: Response: No adverse reaction 8 23:04 Drug: hydrALAZINE IVP 10 mg IVP once Route: IVP; Site: right antecubital; 8 05/19 00:02 Follow up: Response: No adverse reaction 00:02 Drug: Furosemide IVP 40 mg IVP once; give over 2 minutes Route: IVP; Site: right 8 antecubital; 00:31 Follow up: Response: No adverse reaction 00:02 Drug: Ondansetron IVP 4 mg IVP once; over 2 minutes Route: IVP; Site: right antecubital;8 00:31 Follow up: Response: Nausea unchanged 00:40 Drug: Labetalol IV 20 mg IV at calculated rate once over 2 mins Route: IV; Rate: km8 calculated rate; Infused Over: 2 mins; Site: right antecubital; 00:43 Follow up: IV Status: Completed infusion; IV Intake: 4ml 00:40 Drug: Ondansetron IVP 4 mg IVP once; over 2 minutes Route: IVP; Site: right antecubital;8 01:00 Follow up: Response: Nausea unchanged 00:40 Drug: NS 0.9% IV 250 ml IV at bolus once Route: IV; Rate: bolus; Site: right [facility] antecubital; 02:49 Follow up: IV Status: Completed infusion; IV Intake: 250ml 01:12 Drug: metoCLOPramide IVP 10 mg IVP once; over 1 to 2 minutes Route: IVP; Site: right [facility] antecubital; 02:49 Follow up: Response: No adverse reaction; Pain is decreased; Nausea is decreased 01:18 Drug: diphenhydrAMINE IVP 25 mg IVP once Route: IVP; Site: right antecubital; 8 02:49 Follow up: Response: No adverse reaction; Pain is decreased 04:25 Drug: Promethazine IVP 25 mg IVP once Route: IVP; Site: right antecubital; km8 06:05 Follow up: Response: No adverse reaction; Nausea is decreased 06:33 Not Given (Patient Refused): [id number] mg PO once km8 Medication: 04:57 VIS not applicable for this client. km8 Intake: 00:43 IV: 4ml; Total: 4ml. km8 02:49 IV: 250ml; Total: 254ml. km8 Outcome: 00:53 ER care complete, transfer ordered by . cp 06:33 Transferred by ground EMS to [facility], Transfer form completed. km8 06:33 Condition: stable 06:33 Discharge instructions given to patient, Instructed on the need for transfer, Demonstrated understanding of instructions, 06:36 Patient left the ED. km8 Signatures: Dispatcher [employer] EDMS Javon Roy PA PA cp Breneman, Marianna Cordova RN RN mb9 Abiola Roblero rv1 [place] 2 Dorita Stevens RN RN km8 Corrections: (The following items were deleted from the chart) 05/18 19:31 19:28 Pulse 101bpm; Resp 18bpm; Pulse Ox 100%; Temp 98.2F; 61.23 kg; Height 5 ft. 1 mb9 in.; BMI: 25.5; mb9 19:31 19:28 Acuity: VERNA 3 mb9 mb9 05/19 02:29 01:51 BP 152 / 97; Pulse 99bpm; Resp 13bpm; Spontaneous; Pulse Ox 98% RA; rv1 km8
--- NOTE | 2023-05-19 00:54 | EDPHYS ---
Physician Documentation [facility] Name: Shaun Lopez Age: 32 yrs Sex: Female : 1990 Arrival Date: 05/18/2023 Time: 19:19 Bed 19 Private MD: ED Physician He Leal HPI: 05/18 20:00 This 32 yrs old Female presents to ER via Ambulatory with complaints of Breathing cp Difficulty. 20:00 The patient has shortness of breath at rest. Onset: The symptoms/episode began/occurred cp 2 day(s) ago. 20:00 Duration: The symptoms are continuous, and are steadily getting worse. Associated signs cp and symptoms: Pertinent negatives: chest pain, productive cough, dizziness, fever, vomiting, abdominal pain. Severity of symptoms: in the emergency department the symptoms are unchanged despite home interventions. 20:00 Patient reports PMHX significant for right kidney transplant surgery in Jun 2022 due to cp hx of kidney failure caused by HTN. Surgery performed at [facility] in [place]. Historical: - Allergies: 19:29 Bactrim; mb9 - Home Meds: 19:31 mycophenolate mofetil 250 mg oral capsule 3 caps [Active]; dapsone 100 mg Oral tablet 1 mb9 tab [Active]; spironolactone 25 mg Oral tablet 1 tab [Active]; valganciclovir 450 mg oral tablet 2 tabs once [Active]; metoprolol tartrate 100 mg Oral tablet 1 tab [Active]; carvedilol 25 mg oral tablet 2 times per day [Active]; dicyclomine 20 mg Oral tablet [Active]; - PMHx: 19:26 End stage renal disease; Hypertension; Dialysis; brain tumor-removed; Migraines; mb9 Seizures; - PSHx: 19:26 brain SX x 2; section; kidney biopsy; mb9 19:29 kidney transplant; Fistula- L arm; mb9 - Immunization history:: Adult Immunizations up to date. - Social history:: Smoking status: Patient denies any tobacco usage or history of. ROS: 20:05 Constitutional: Negative for body aches, chills, fever, poor PO intake, cp 20:05 Eyes: Negative for injury, pain, redness, and discharge, cp 20:05 ENT: Negative for drainage from ear(s), ear pain, sore throat, difficulty swallowing, difficulty handling secretions, 20:05 Cardiovascular: Negative for chest pain, edema, palpitations, 20:05 Respiratory: Positive for shortness of breath, at rest. Negative for cough, wheezing, 20:05 Abdomen/GI: Negative for abdominal pain, vomiting, diarrhea, constipation, 20:05 Back: Negative for pain at rest, pain with movement, 20:05 : Negative for urinary symptoms, 20:05 Neuro: Negative for altered mental status, headache, syncope, weakness, 20:05 All other systems are negative, Exam: 20:10 Constitutional: The patient appears in no acute distress, alert, awake, cp non-diaphoretic, non-toxic, well developed, well nourished, 20:10 Head/Face: Normocephalic, atraumatic. cp 20:10 Eyes: Periorbital structures: appear normal, Pupils: equal, round, and reactive to light and accomodation, Extraocular movements: intact throughout, Conjunctiva: normal, Lids and lashes: appear normal, bilaterally, 20:10 ENT: External ear(s): are unremarkable, Nose: is normal, Mouth: Lips: moist, Oral mucosa: pink and intact, moist, Posterior pharynx: is normal, airway is patent, no erythema, no exudate, 20:10 Neck: ROM/movement: is normal, is supple, without pain, no range of motions limitations, 20:10 Chest/axilla: Inspection: normal, 20:10 Cardiovascular: Rate: tachycardic, Rhythm: regular, Edema: ankle edema, that is mild, JVD: is not appreciated, 20:10 Respiratory: the patient does not display signs of respiratory distress, Respirations: normal, no use of accessory muscles, no retractions, labored breathing, is not present, Breath sounds: are clear throughout, no decreased breath sounds, no stridor, no wheezing, 20:10 Abdomen/GI: Inspection: abdomen appears normal, Bowel sounds: active, all quadrants, Palpation: abdomen is soft and non-tender, in all quadrants, 20:10 Back: pain, is absent, ROM is normal, 20:10 Neuro: Orientation: to person, place \T\ time. Mentation: is normal, Cerebellar function: is grossly normal, Motor: moves all fours, strength is normal, Sensation: is normal, Gait: is steady, at a normal pace, without difficulty, 21:18 ECG was reviewed by the Attending Physician. cp Vital Signs: 19:28 BP 212 / 137; Pulse 101; Resp 18; Temp 98.2; Pulse Ox 100% ; Weight 61.23 kg; Height 5 mb9 ft. 1 in. ; 21:15 BP 197 / 129; Pulse 102; Resp 16; Pulse Ox 100% on R/A; km8 21:30 BP 195 / 120; Pulse 101; Resp 16; Pulse Ox 100% on R/A; km8 22:00 BP 185 / 119; Pulse 97; Resp 16 S; Pulse Ox 100% on R/A; km8 22:30 BP 185 / 121; Pulse 99; Resp 16; Pulse Ox 100% on R/A; km8 23:53 BP 196 / 121; Pulse 121; Resp 18; Pulse Ox 100% on R/A; 05/19 00:00 BP 187 / 123; Pulse 117; Resp 16; Pulse Ox 100% on R/A; km8 00:40 BP 179 / 120; Pulse 109; Resp 16; Pulse Ox 96% on R/A; km8 01:05 BP 169 / 109; Pulse 101; Resp 16; Pulse Ox 99% on R/A; km8 01:30 BP 152 / 97; Pulse 99; Resp 13 S; Pulse Ox 98% on R/A; km8 02:00 BP 148 / 103; Pulse 92; Resp 16 S; Pulse Ox 98% on R/A; km8 02:30 BP 145 / 98; Pulse 92; Resp 16 S; Pulse Ox 100% on R/A; km8 04:30 BP 150 / 103; Pulse 92; Pulse Ox 98% on R/A; km8 05:00 BP 152 / 100; Pulse 95; Resp 16; Pulse Ox 98% ; km8 05:30 BP 147 / 98; Pulse 93; Resp 16; Pulse Ox 98% on R/A; km8 06:00 BP 150 / 99; Pulse 87; Resp 16; Pulse Ox 99% ; km8 05/18 19:28 Body Mass Index 25.51 (61.23 kg, 154.94 cm) mb9 [place] Coma Score: 05/18 21:15 Eye Response: spontaneous(4). Motor Response: obeys commands(6). Verbal Response: km8 oriented(5). Total: 15. MDM: 19:30 Patient medically screened. 05/19 00:45 Data reviewed: vital signs, nurses notes, lab test result(s), EKG, radiologic studies, cp CT scan, plain films. 05/18 20:25 Order name: Basic Metabolic Panel; Complete Time: 22:45 05/18 22:45 Interpretation: Normal except: CL 113; CO2 19; GLUC 111; BUN 35; CRE 3.16; GFR 19; CA cp 7.9. 05/18 20:25 Order name: CBC with Diff; Complete Time: 22:45 05/18 22:46 Interpretation: Normal except: RBC 3.13; HGB 8.2; HCT 24.7; MCV 78.7; MCH 26.3; cp EOSINOPHIL % 6.4. 05/18 20:25 Order name: LFT's; Complete Time: 22:45 05/18 23:46 Interpretation: Normal except: AST 10; TP 6.1; ALB 3.1; A/G 1.0. 05/18 20:25 Order name: Magnesium; Complete Time: 22:45 05/18 20:25 Order name: NT PRO-BNP; Complete Time: 22:45 05/18 22:46 Interpretation: Abnormal: NT PRO-BNP 92307. 05/18 20:25 Order name: PT-INR; Complete Time: 22:45 05/18 20:25 Order name: Troponin HS; Complete Time: 22:45 05/18 20:25 Order name: PREGU; Complete Time: 22:45 05/18 20:25 Order name: Urinalysis W/Microscopic; Complete Time: 22:45 05/18 23:48 Interpretation: Normal except: UCLA Turbid; UBLD 2+; UPROT 3+; UWBC 10-20; URBC 11-20. 05/18 21:09 Order name: COVID-19 SARS RT PCR; Complete Time: 22:45 05/18 21:09 Order name: Influenza Screen (a \T\ B); Complete Time: 23:44 05/18 23:45 Interpretation: Reviewed. 05/18 22:32 Order name: Urine Culture EDOH 05/18 20:25 Order name: XRAY Chest (1 view); Complete Time: 21: cp 05/18 22:47 Order name: CT Chest Wo Con cp 05/19 04:09 Order name: CT Head Brain wo Cont cp 05/18 20:25 Order name: EKG; Complete Time: 20:26 cp 05/18 20:25 Order name: Cardiac monitoring; Complete Time: 21: cp 05/18 20:25 Order name: EKG - Nurse/Tech; Complete Time: : cp 05/18 20:25 Order name: IV Saline Lock; Complete Time: : cp 05/18 20:25 Order name: Labs collected and sent; Complete Time: : cp 05/18 20:25 Order name: O2 Per Protocol; Complete Time: : cp 05/18 20:25 Order name: O2 Sat Monitoring; Complete Time: : cp EC/15 21:18 Rate is 98 beats/min. Rhythm is regular. WI interval is normal. QRS interval is normal. cp QT interval is normal. T waves are Inverted in lead aVR. Interpreted by me. Reviewed by me. Administered Medications: 21:31 Drug: hydrALAZINE IVP 10 mg IVP once Route: IVP; Site: right antecubital; km8 22:00 Follow up: Response: No adverse reaction 8 23:04 Drug: hydrALAZINE IVP 10 mg IVP once Route: IVP; Site: right antecubital; 8 05/19 00:02 Follow up: Response: No adverse reaction 00:02 Drug: Furosemide IVP 40 mg IVP once; give over 2 minutes Route: IVP; Site: right [facility] antecubital; 00:31 Follow up: Response: No adverse reaction 00:02 Drug: Ondansetron IVP 4 mg IVP once; over 2 minutes Route: IVP; Site: right antecubital;km8 00:31 Follow up: Response: Nausea unchanged 8 00:40 Drug: Labetalol IV 20 mg IV at calculated rate once over 2 mins Route: IV; Rate: km8 calculated rate; Infused Over: 2 mins; Site: right antecubital; 00:43 Follow up: IV Status: Completed infusion; IV Intake: 4ml 8 00:40 Drug: Ondansetron IVP 4 mg IVP once; over 2 minutes Route: IVP; Site: right antecubital;km8 01:00 Follow up: Response: Nausea unchanged 8 00:40 Drug: NS 0.9% IV 250 ml IV at bolus once Route: IV; Rate: bolus; Site: right 8 antecubital; 02:49 Follow up: IV Status: Completed infusion; IV Intake: 250ml 8 01:12 Drug: metoCLOPramide IVP 10 mg IVP once; over 1 to 2 minutes Route: IVP; Site: right 8 antecubital; 02:49 Follow up: Response: No adverse reaction; Pain is decreased; Nausea is decreased 8 01:18 Drug: diphenhydrAMINE IVP 25 mg IVP once Route: IVP; Site: right antecubital; km8 02:49 Follow up: Response: No adverse reaction; Pain is decreased 8 04:25 Drug: Promethazine IVP 25 mg IVP once Route: IVP; Site: right antecubital; km8 06:05 Follow up: Response: No adverse reaction; Nausea is decreased 8 06:33 Not Given (Patient Refused): [id number] mg PO once km8 Disposition: 04:04 Co-signature as Attending Physician, He Leal MD I agree with the assessment sp4 and plan of care. I reviewed the patient's care provided by Advanced Practice Provider \T\ agree w/ the diagnosis \T\ care plan. I personally saw the pt \T\ performed a substantive portion of the visit, incldng all aspects of the (History/Exam/Medical Decision Making). Disposition Summary: 05/19/23 00:53 Transfer Ordered Notes: Transfer Location: [facility] cp Reason: Higher level of care cp Condition: Stable cp Problem: new cp Symptoms: have improved cp Accepting Physician: DR Cameron(05/19/23 06:36) km8 Diagnosis - Acute kidney failure, unspecified cp Forms: - Medication Reconciliation Form cp - SBAR form cp Signatures: Dispatcher [employer] EDMS Javon Roy PA PA cp Breneman, Mary Beth RN RN He Porter MD MD sp4 Dorita Stevens RN RN km8 Corrections: (The following items were deleted from the chart) 05/18 23:46 23:45 Normal except: AST 10. cp cp 05/19 02:17 00:53 Doctor cp cp 06:36 02:17 DR Cameron cp km8
[2023-05-19] MEDS ORDERED: PROMETHAZINE 25 MG TABLET ONE (01:20)
[2023-05-19] MEDS ORDERED: DIPHENHYDRAMINE 50 MG/ML VIAL ONE (01:27)
[2023-05-19] MEDS ORDERED: ACETAMINOPHEN 325 MG TABLET ONE (01:33)
[2023-05-19] MEDS ORDERED: LORazepam 2 MG/ML VIAL ONE (04:22)
[2023-05-19] MEDS ORDERED: PROMETHAZINE INJ 25 MG/ML AMP ONE (04:29)
[2023-05-19] MEDS ORDERED: NA CHLORIDE 0.9% 50 ML ONE (04:31)
[2023-05-19 06:46] VITALS: TEMP 98.2
[2023-05-19 07:17] VITALS: BP 150/99; O2SAT 99
--- NOTE | 2023-05-19 10:41 | EKG ---
Test Date: 2023-05-18 Test Time: 21:12:37 Hr Representative: ROXANNA MEASUREMENT RESULTS: Intervals: Rate: 98 OR: 134 QRSD: 84 QT: 366 QTc: 467 [place]: P: 44 OR: 134 QRS: -41 T: 83 INTERPRETIVE STATEMENTS: Normal sinus rhythm Left axis deviation Minimal voltage criteria for LVH, may be normal variant Septal infarct, age undetermined Abnormal ECG Compared to ECG 05/07/2021 08:19:55 Myocardial infarct finding now present Electronically Signed On 05-19-23 10:40:53 DIRECTOR OF AGRONOMY by Andres Uribe
--- NOTE | 2023-05-19 20:47 | RAD REPORT ---
EXAM DESCRIPTION: CT - Head Brain Wo Cont - 05/19/2023 5:56 am CLINICAL HISTORY: HEADACHE COMPARISON: 05/07/2021. TECHNIQUE: CT HEAD WITHOUT IV CONTRAST on 05/19/2023 4:09 AM AGING ROOM OPERATOR This exam was performed according to our departmental dose-optimization program, which includes autom ated exposure control, adjustment of the mA and/or kV according to patient size and/or use of iterati ve reconstruction technique. FINDINGS: There is no acute hemorrhage, mass effect or midline shift. 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 There is no hydrocephalus. There is no significant volume loss for age. Right frontal craniotomy was performed. Orbits and globes are unremarkable. The paranasal sinuses are clear. Mastoid air cells are clear. IMPRESSION: No acute intracranial findings. Electronically signed by: Brent Blackwell MD 05/19/2023 04:54 AM AGING ROOM OPERATOR Due to temporary technical issues with the PACS/Fluency reporting system, reports are being signed by the in house radiologists without review as a courtesy to insure prompt reporting. The interpreting radiologist is fully responsible for the content of the report.
--- NOTE | 2023-05-19 20:51 | RAD REPORT ---
EXAM DESCRIPTION: CT - Thorax Wo Raghu - 05/18/2023 11:53 pm CLINICAL HISTORY: Female, 32 years old, SOB COMPARISON: None. TECHNIQUE: CT acquisition of the chest without contrast. Coronal and sagittal reformatted images pro vided. This exam was performed according to departmental dose-optimization program which includes aut omated exposure control, adjustment of the mA and/or kV according to patient size, and/or use of iter ative reconstruction technique. FINDINGS: SUPPORTIVE DEVICES: None. LOWER NECK: Unremarkable. CHEST: Mediastinum/neil: Unremarkable appearance of the great vessels. No evident thoracic adenopathy. Fiona l esophagus with small hiatal hernia. Heart: Normal size. No pericardial thickening or effusion. No coronary artery calcifications. Lungs: No pulmonary consolidation. Mild scarring/atelectasis in the left lung base. No suspicious pul monary nodule. Central airways are clear. Pleural Space: No pleural effusion or pneumothorax. UPPER ABDOMEN: No significant abnormality within the upper abdomen. MUSCULOSKELETAL: No acute osseous abnormality. IMPRESSION: 1. No acute cardiopulmonary findings. 2. Small hiatal hernia. Electronically signed by: Erich Marquez MD 05/18/2023 11:43 PM COMMERCIAL REAL ESTATE MANAGER Due to temporary technical issues with the PACS/Fluency reporting system, reports are being signed by the in house radiologists without review as a courtesy to insure prompt reporting. The interpreting radiologist is fully responsible for the content of the report.
== END 2023-05-19 06:36 | disposition short-term general hospital (02) ==
LOC: ER 19:19
DX: N17.9 Acute kidney failure, unspecified (principal); Z99.2 Dependence on renal dialysis; Z11.52 Encounter for screening for COVID-19; Z94.0 Kidney transplant status; Z88.1 Allergy status to other antibiotic agents
CPT/HCPCS: 96365; 93005; 87088; 85025; 81001; 87086; 80048; 36415; 83735; 81025; 85610; 80076; 84484; 83880; 87635; 87804 ×2; 70450; 71250; 71045; 96375; 99285; 96366; J2550; J0360; J1200; J2405 ×2; Q0169

== ENCOUNTER 2023-10-04 16:06 | Emergency (ER) | payer OTHER ==
[2023-10-04] MEDS ORDERED: ONDANSETRON 4 MG/2 ML VIAL ONE (17:22)
[2023-10-04] MEDS ORDERED: MORPHINE 4 MG/ML SYR ONE (17:22)
[2023-10-04 17:23] LABS: Absolute Lymphocytes (CBC) 0.4 K/uL (0.7-4.9); Absolute Monocytes 0.2 K/uL (0.1-1.3); Absolute Neutrophil 5.6 K/uL (1.8-8.0); Basophils % 0.4 % (0-1.3); Eosinophils % 0.2 % (0-4.4); Hematocrit 31.1 % (36.0-45.0); Hemoglobin 10.3 g/dL (12.0-15.0); Lymphocytes % 6.5 % (15.3-44.8); MCH 27.6 pg (27.0-35.0); MCHC 33.3 g/dL (32.0-36.0); MCV 82.9 fL (80-100); MPV 8.6 fL (7.6-11.3); Monocytes % 3.7 % (3.3-12.3); Neutrophils % 89.2 % (41.7-73.7); Nucleated Red Blood Cells % 0.1 % (0-0); Platelets 216 thou/uL (152-406); RBC Red Blood Cell Count 3.75 M/uL (3.86-4.86); Red Cell Distribution Width 15.5 % (12.1-15.2)
[2023-10-04 17:59] LABS: Albumin 3.2 g/dL (3.4-5.0); Albumin/Globulin Ratio 0.7 (1.1-1.8); Anion Gap 10.2 mEq/L (5.0-15.0); Bilirubin Total 0.7 mg/dL (0.2-1.0); Globulin 4.5 g/dL (2.3-3.5); Potassium 4.2 mEq/L (3.5-5.1); Protein, Total 7.7 g/dL (6.4-8.2)
[2023-10-04] MEDS ORDERED: PROMETHAZINE INJ 25 MG/ML AMP ONE (18:35)
[2023-10-04] MEDS ORDERED: LOSARTAN POTASSIUM 50 MG TABLET ONE (18:44)
[2023-10-04 18:52] LABS: NT PRO-BNP > 175000 pg/mL (<125)
[2023-10-04 20:17] LABS: Specific Gravity 1.011 (1.005-1.030); Sqamous Epithelial <5 /HPF (None Seen); Urine Bacteria <20 /HPF (<20); Urine Bilirubin NEGATIVE (Negative); Urine Blood 1+ (Negative); Urine Clarity Turbid (Clear); Urine Color Light-Yellow (Yellow); Urine Culture Reflex Order REFLEXED; Urine Glucose NEGATIVE (Negative); Urine Ketones NEGATIVE (Negative); Urine Microscopic Reflex YN ORDER UMIC; Urine Mucus Slight /HPF (None Seen); Urine Nitrite NEGATIVE (Negative); Urine Protein 3+ (Negative); Urine Urobilinogen Normal (Normal); Urine WBC >50 /HPF (<5)
--- NOTE | 2023-10-04 20:25 | RAD REPORT ---
EXAM DESCRIPTION: CT - Abdomen Pelvis Wo Contrast - 10/04/2023 8:18 pm CLINICAL HISTORY: Abdominal pain. ABD PAIN COMPARISON: Abdomen Pelvis W Contrast dated 08/19/2023 TECHNIQUE: CT imaging of the abdomen and pelvis was performed without contrast. Solid organ, bowel a nd vascular assessment is limited due to lack of IV and oral contrast. All CT scans are performed using dose optimization technique as appropriate and may include automated exposure control or mA/KV adjustment according to patient size. FINDINGS: The lower lung guy are clear. The liver, spleen, pancreas, adrenal glands are within normal limits for a limited non-contrast exami nation.Right lower quadrant transplant kidney noted, unchanged. Mild free fluid in the abdomen pelvis. No bowel obstruction or free air. The appendix is normal. Atro phic [place] kidneys. The osseous structures are within normal limits. IMPRESSION: Right lower quadrant transplant kidney with mild hydronephrosis. It appears unchanged si nce 08/19/2023 study. A limited non-contrast examination was performed as detailed.
--- NOTE | 2023-10-04 20:30 | RAD REPORT ---
EXAM DESCRIPTION: RAD - Chest Single View - 10/04/2023 8:26 pm CLINICAL HISTORY: DYSPNEA Chest pain. COMPARISON: Chest Single View dated 05/18/2023; Chest Pa And Lat (2 Views) dated 02/15/2022; Chest Si ngle View dated 05/29/2021; Chest Single View dated 05/07/2021 FINDINGS: Portable technique limits examination quality. Patchy opacity seen in the right lung base likely representing pneumonia. The lungs are otherwise lorenzo ar. The heart is upper limit normal in size. No displaced fractures. IMPRESSION: Developing right lower lobe pneumonia.
[2023-10-04] MEDS ORDERED: CEFTRIAXONE 1000 MG/VIAL ONE (21:21)
[2023-10-04] MEDS ORDERED: NA CHLORIDE 0.9% 250 ML ONE (21:21)
[2023-10-04] MEDS ORDERED: AZITHROMYCIN 500 MG INJ IVPB ONE (21:21)
--- NOTE | 2023-10-04 21:54 | ER ---
Nurse's Notes [facility] Name: Shaun Lopez Age: 33 yrs Sex: Female : 1990 Arrival Date: 10/04/2023 Time: 16:06 Bed 17 Private MD: Diagnosis: Lobar pneumonia, unspecified organism Presentation: 10/03 16:13 Chief complaint: Patient states: Nausea, vomiting for 2 weeks. Diarrhea for the last 3 nj1 days. HD TThS. Fever a couple days ago. Coronavirus screen: Vaccine status: Patient reports being unvaccinated. Ebola Screen: Patient denies travel to an Ebola-affected area in the 21 days before illness onset. Initial Sepsis Screen: Does the patient meet any 2 criteria? No. Patient's initial sepsis screen is negative. Does the patient have a suspected source of infection? No. Patient's initial sepsis screen is negative. Risk Assessment: Do you want to hurt yourself or someone else? Patient reports no desire to harm self or others. Onset of symptoms was September 2023. 16:13 Method Of Arrival: Ambulatory [facility] 16:13 Acuity: VERNA 2 nj1 Historical: - Allergies: 16:16 Bactrim; nj1 - PMHx: 16:16 brain tumor-removed; Dialysis; End stage renal disease; Hypertension; Migraines; nj1 Seizures; - PSHx: 16:16 brain SX x 2; section; Fistula- L arm; kidney biopsy; kidney transplant; nj1 - Immunization history:: Client reports having NOT received the Covid vaccine. - Infectious Disease History:: Denies. - Social history:: Smoking status: Patient denies any tobacco usage or history of. Screenin:20 [facility] ED Fall Risk Assessment (Adult) History of falling in the last 3 months, rs5 including since admission No falls in past 3 months (0 pts) Confusion or Disorientation No (0 pts) Intoxicated or Sedated No (0 pts) Impaired Gait No (0 pts) Mobility Assist Device Used No (0 pt) Altered Elimination No (0 pt) Score/Fall Risk Level 0 - 2 = Low Risk Oriented to surroundings, Maintained a safe environment. Abuse screen: Denies threats or abuse. Nutritional screening: No deficits noted. Tuberculosis screening: No symptoms or risk factors identified. Assessment: 16:44 Reassessment: Pt arrived in room. rs5 16:45 General: Appears in no apparent distress. uncomfortable, Behavior is cooperative, rs5 anxious. Pain: Complains of pain in abdomen Pain currently is 7 out of 10 on a pain scale. Quality of pain is described as aching, Is continuous. Neuro: Level of Consciousness is awake, alert, obeys commands, Oriented to person, place, time, situation. Cardiovascular: Patient's skin is warm and dry. Rhythm is regular. Respiratory: Airway is patent Respiratory effort is even, unlabored, Respiratory pattern is regular, symmetrical. GI: Abdomen is round non-distended, Abd is soft and non tender X 4 quads. Reports nausea. 16:45 : No signs and/or symptoms were reported regarding the genitourinary system. EENT: No rs5 signs and/or symptoms were reported regarding the EENT system. Derm: Skin is intact, Skin is pink, warm \T\ dry. Musculoskeletal: Range of motion: intact in all extremities. 16:50 Reassessment: Provider notified of pt's elevated BP. rs5 17:30 Reassessment: Provider notified of pt's elevated BP. rs5 17:32 Reassessment: Provider notified of pt's elevated BP. Cardiovascular: Denies chest pain, rs5 Rhythm is regular. Respiratory: Respiratory effort is even, unlabored, Respiratory pattern is regular, symmetrical. 18:30 Reassessment: Patient and/or family updated on plan of care and expected duration. Pain rs5 level reassessed. Patient is alert, oriented x 3, equal unlabored respirations, skin warm/dry/pink. 18:30 Reassessment: Provider notified of pt's elevated BP. rs5 19:35 Reassessment: Patient appears in no apparent distress at this time. Patient and/or tm6 family updated on plan of care and expected duration. Pain level reassessed. Patient is alert, oriented x 3, equal unlabored respirations, skin warm/dry/pink. 21:02 Reassessment: Patient and/or family updated on plan of care and expected duration. Pain tm6 level reassessed. Patient is alert, oriented x 3, equal unlabored respirations, skin warm/dry/pink. 21:51 Reassessment: Patient and/or family updated on plan of care and expected duration. Pain tm6 level reassessed. Patient is alert, oriented x 3, equal unlabored respirations, skin warm/dry/pink. 21:58 Reassessment: discharge pending completion of IV antibiotics. tm6 22:49 Reassessment: Patient and/or family updated on plan of care and expected duration. Pain tm6 level reassessed. Patient is alert, oriented x 3, equal unlabored respirations, skin warm/dry/pink. Vital Signs: 16:13 BP 216 / 133; Pulse 87; Resp 18; Temp 98(O); Pulse Ox 99% ; Weight 58.97 kg; Height 5 nj1 ft. 1 in. ; Pain 6/10; 17:00 BP 198 / 113; Pulse 80; Resp 18; Pulse Ox 99% on R/A; rs5 18:01 BP 193 / 107; Pulse 84; Resp 18; Pulse Ox 99% on R/A; rs5 18:25 BP 195 / 110; Pulse 85; Resp 17; Pulse Ox 99% on R/A; rs5 19:34 BP 174 / 104; Pulse 66; Pulse Ox 99% on R/A; tm6 21:02 BP 195 / 124; Pulse 66; Pulse Ox 97% on R/A; Pain 0/10; tm6 21:51 BP 170 / 111; Pulse 74; Pulse Ox 97% on R/A; tm6 22:49 BP 160 / 111; Pulse 75; Resp 19; Temp 97.5(TE); Pulse Ox 99% on R/A; Pain 0/10; tm6 16:13 Body Mass Index 24.56 (58.97 kg, 154.94 cm) nj1 16:13 Pain Scale: Adult nj1 21:02 Pain Scale: Adult tm6 22:49 Pain Scale: Adult tm6 ED Course: 16:08 Patient arrived in ED. mg5 16:08 Lillian Miramontes PA-C is PHCP. sb4 16:08 Abdoul Burris MD is Attending Physician. sb4 16:16 Triage completed. nj1 16:16 Arm band placed on right wrist. nj1 16:20 Patient has correct armband on for positive identification. Placed in gown. Bed in low rs5 position. Call light in reach. Side rails up X2. 16:20 No provider procedures requiring assistance completed. rs5 16:44 Marquez Bower, RN is Primary Nurse. rs5 16:45 Missed attempt(s): 24 gauge in right antecubital area. bc6 16:50 Missed attempt(s): 22 gauge in right antecubital area. bc6 17:16 CBC with Diff Sent. iw 17:16 CMP Sent. iw 17:17 Lipase Sent. iw 17:17 Troponin High Sensitivity Sent. iw 17:17 Missed attempt(s): 22 gauge in right antecubital area. Bleeding controlled, band aid iw applied, catheter tip intact. 18:01 Missed attempt(s): 24 gauge in right forearm. Bleeding controlled, band aid applied, rs5 catheter tip intact. 19:00 Provided Education on: plan of care. Client placed on continuous cardiac and pulse tm6 oximetry monitoring. NIBP monitoring applied. Pulse ox on. NIBP on. Door closed. Noise minimized. Warm blanket given. 19:33 Test, Urine Sent. tm6 19:33 Urinalysis w/ reflexes Sent. tm6 20:20 CT Abd/Pelvis - Without Contrast In Process Unspecified. EDMS 20:28 Chest Single View XRAY In Process Unspecified. EDMS 20:35 Inserted saline lock: 20 gauge in right upper arm, using aseptic technique. Ultrasound nj1 guided. Catheter tip well visualized within vasculature during placement. 22:50 IV discontinued, intact, bleeding controlled, No redness/swelling at site. Pressure tm6 dressing applied. Administered Medications: 17:10 Drug: morphine IVP or IV 4 mg IVP once over 4 mins Route: IVP; Infused Over: 4 mins; rs5 Site: left antecubital; 17:30 Follow up: Response: No adverse reaction; Pain is decreased rs5 17:10 Drug: Ondansetron IVP 4 mg IVP once; over 2 minutes Route: IVP; Site: left antecubital; rs5 17:30 Follow up: Response: No adverse reaction rs5 18:42 Drug: Promethazine IM 25 mg IM once Route: IM; Site: left deltoid; rs5 19:00 Follow up: Response: No adverse reaction rs5 18:45 Drug: Losartan PO 50 mg PO once Route: PO; rs5 19:00 Follow up: Response: No adverse reaction rs5 21:31 Drug: AZITHromycin IVPB 500 mg IVPB once over 1 hrs; (mix in 250 mL NS) Route: IVPB; tm6 Infused Over: 1 hrs; Site: right antecubital; 21:31 Drug: Rocephin IV 1 grams IV at calculated rate once; Given slow IV push per pharmacy tm6 instructions Route: IV; Rate: calculated rate; Site: right antecubital; Medication: 19:30 VIS not applicable for this client. rs5 Outcome: 21:53 Discharge ordered by . sb4 22:49 Discharged to home ambulatory, with family, tm6 22:49 Condition: stable 22:49 Discharge instructions given to patient, family, Instructed on discharge instructions, follow up and referral plans. medication usage, Demonstrated understanding of instructions, follow-up care, medications, Prescriptions given X 3, 22:50 Patient left the ED. tm6 Signatures: Dispatcher [employer] EDMS Beryl Berrios, JERALD RN Lillian Kinney, PA-C PA-Rakel sb4 Marquez Bower RN RN rs5 Luz Elena Jacobsen bc6 Fiona Spann RN RN nj1 Anais Frias mg5 Baljinder Quan RN RN tm6 Corrections: (The following items were deleted from the chart) 18:11 17:10 Response: No adverse reaction rs5 rs5
--- NOTE | 2023-10-04 21:54 | EDPHYS ---
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 Ever since she has been back on HD, sick on and off. States that she has been feeling very ill, nausea, vomiting, diarrhea, abdominal pain. States she had a fever a few days ago. She has been attending HD every Tuesday. Mom states that she is not sleeping well either. Historical: - Allergies: 16:16 Bactrim; nj1 - PMHx: 16:16 brain tumor-removed; Dialysis; End stage renal disease; Hypertension; Migraines; nj1 Seizures; - PSHx: 16:16 brain SX x 2; section; Fistula- L arm; kidney biopsy; kidney transplant; nj1 - Immunization history:: Client reports having NOT received the Covid vaccine. - Infectious Disease History:: Denies. - Social history:: Smoking status: Patient denies any tobacco usage or history of. ROS: 16:45 Cardiovascular: Negative for chest pain, palpitations, and edema, sb4 16:45 Constitutional: Positive for fever, malaise, poor PO intake, 16:45 Abdomen/GI: Positive for abdominal pain, nausea, vomiting, and diarrhea, 16:45 All other systems are negative, Exam: 16:45 Head/Face: Normocephalic, atraumatic. Eyes: Extra-ocular motions intact. Periorbital sb4 areas with no swelling, redness, or edema. ENT: Mucous membranes moist. Cardiovascular: Regular rate and rhythm with a normal S1 and S2. Respiratory: Lungs have equal breath sounds bilaterally, clear to auscultation and percussion. No rales, rhonchi or wheezes noted. No increased work of breathing, no retractions or nasal flaring. Skin: Warm, dry with normal turgor. Normal color with no rashes, no lesions, and no evidence of cellulitis. MS/ Extremity: Pulses equal, no cyanosis. Neurovascular intact. Full, normal range of motion. Neuro: Awake and alert, GCS 15, oriented to person, place, time, and situation. Motor strength 5/5 in all extremities. Sensory grossly intact. 16:45 Constitutional: The patient appears alert, awake, uncomfortable, 16:45 Abdomen/GI: Inspection: abdomen appears normal, Bowel sounds: normal, Palpation: soft, moderate abdominal tenderness, in the right upper quadrant and left upper quadrant, Vital Signs: 16:13 BP 216 / 133; Pulse 87; Resp 18; Temp 98(O); Pulse Ox 99% ; Weight 58.97 kg; Height 5 nj1 ft. 1 in. ; Pain 6/10; 17:00 BP 198 / 113; Pulse 80; Resp 18; Pulse Ox 99% on R/A; rs5 18:01 BP 193 / 107; Pulse 84; Resp 18; Pulse Ox 99% on R/A; rs5 18:25 BP 195 / 110; Pulse 85; Resp 17; Pulse Ox 99% on R/A; rs5 19:34 BP 174 / 104; Pulse 66; Pulse Ox 99% on R/A; tm6 21:02 BP 195 / 124; Pulse 66; Pulse Ox 97% on R/A; Pain 0/10; tm6 21:51 BP 170 / 111; Pulse 74; Pulse Ox 97% on R/A; tm6 22:49 BP 160 / 111; Pulse 75; Resp 19; Temp 97.5(TE); Pulse Ox 99% on R/A; Pain 0/10; tm6 16:13 Body Mass Index 24.56 (58.97 kg, 154.94 cm) nj1 16:13 Pain Scale: Adult nj1 21:02 Pain Scale: Adult tm6 22:49 Pain Scale: Adult tm6 MDM: 16:18 Patient medically screened. sb4 21:53 Data reviewed: vital signs, nurses notes, lab test result(s), EKG, radiologic studies, sb4 and as a result, I will discharge patient. Historians other than the Patient: Parent: mother. Care significantly affected by the following chronic conditions: Hypertension, Chronic Kidney Disease. Counseling: I had a detailed discussion with the patient and/or guardian regarding the historical points, exam findings, and any diagnostic results supporting the discharge/admit diagnosis, the presence of at least one elevated blood pressure reading (>120/80) during this emergency department visit, lab results, radiology results, to return to the emergency department if symptoms worsen or persist or if there are any questions or concerns that arise at home. 10/03 16:23 Order name: CBC with Diff; Complete Time: 17:29 sb4 10/03 16:23 Order name: CMP; Complete Time: 18:00 sb4 10/03 16:23 Order name: Lipase; Complete Time: 18:00 sb4 10/03 16:23 Order name: Test, Urine; Complete Time: 20:09 sb4 10/03 16:23 Order name: Urinalysis w/ reflexes; Complete Time: 20:19 sb4 10/03 17:09 Order name: Troponin High Sensitivity; Complete Time: 18:57 sb4 10/03 17:09 Order name: BNP; Complete Time: 18:57 sb4 10/03 20:20 Order name: Urine Culture EDVT 10/03 16:23 Order name: CT Abd/Pelvis - Without Contrast; Complete Time: 20:26 sb4 10/03 19:15 Order name: Chest Single View XRAY; Complete Time: 20:31 sb4 10/03 17:09 Order name: EKG; Complete Time: 17:10 sb4 10/03 16:23 Order name: IV Saline Lock; Complete Time: 19:34 sb4 10/03 16:23 Order name: Labs collected and sent; Complete Time: 17:17 sb4 10/03 20:27 Order name: PO challenge; Complete Time: 20:57 sb4 EC:59 Rate is 65 beats/min. Rhythm is regular, Normal Sinus Rhythm. Left axis deviation sb4 noted. TX interval is normal at 158 msec. QRS interval is normal at 84 msec. QT interval is normal at 434 msec. No Q waves. T waves are Normal. No ST changes noted. Clinical impression: No evidence of ischemia. Interpreted by me. Reviewed by me. Administered Medications: 17:10 Drug: morphine IVP or IV 4 mg IVP once over 4 mins Route: IVP; Infused Over: 4 mins; rs5 Site: left antecubital; 17:30 Follow up: Response: No adverse reaction; Pain is decreased rs5 17:10 Drug: Ondansetron IVP 4 mg IVP once; over 2 minutes Route: IVP; Site: left antecubital; rs5 17:30 Follow up: Response: No adverse reaction rs5 18:42 Drug: Promethazine IM 25 mg IM once Route: IM; Site: left deltoid; rs5 19:00 Follow up: Response: No adverse reaction rs5 18:45 Drug: Losartan PO 50 mg PO once Route: PO; rs5 19:00 Follow up: Response: No adverse reaction rs5 21:31 Drug: AZITHromycin IVPB 500 mg IVPB once over 1 hrs; (mix in 250 mL NS) Route: IVPB; tm6 Infused Over: 1 hrs; Site: right antecubital; 21:31 Drug: Rocephin IV 1 grams IV at calculated rate once; Given slow IV push per pharmacy tm6 instructions Route: IV; Rate: calculated rate; Site: right antecubital; Disposition Summary: 10/04/23 21:53 Discharge Ordered Notes: Location: Home sb4 Problem: new sb4 Symptoms: have improved sb4 Condition: Stable sb4 Diagnosis - Lobar pneumonia, unspecified organism sb4 Followup: sb4 - With: Emergency Department - When: As needed - Reason: Trouble breathing, Worsening of condition Discharge Instructions: - Discharge Summary Sheet sb4 - Community-Acquired Pneumonia, Adult sb4 Forms: - Thank You Letter sb4 - Antibiotic Education sb4 - Patient Portal Instructions sb4 - Leadership Thank You Letter sb4 Prescriptions: - azithromycin 250 mg Oral tablet - take 1 tablet ORAL route daily for 4 days; 4 tablet; Refills: 0, Product sb4 Selection Permitted - Augmentin 500-125 mg Oral tablet - take 1 tablet ORAL route every other day for 10 days take on dialysis days, sb4 after dialysis; 5 tablet; Refills: 0, Product Selection Permitted - Zofran 4 mg Oral Tablet - take 1 tablet ORAL route every 12 hours As needed; 20 tablet; Refills: 0, sb4 Product Selection Permitted Signatures: Dispatcher [employer] Lillian Geiger PA-C PA-C sb4 Marquez Bower, RN RN rs5 Fiona Spann RN RN nj1 Baljinder Quan RN RN tm6 Corrections: (The following items were deleted from the chart) 16:24 16:23 CBC+H.LAB.BRZ ordered. EDMS EDMS 16:24 16:23 COMPREHENSIVE METABOLIC PANEL+C.LAB.BRZ ordered. EDMS EDMS 16:24 16:23 LIPASE+C.LAB.BRZ ordered. EDMS EDMS 16:24 16:23 Test, Urine+UC.LAB.BRZ ordered. EDMS EDMS 16:24 16:23 Urinalysis+U.LAB.BRZ ordered. EDMS EDMS 16:49 16:45 Patient with extensive medical history. She has end-stage renal disease, had a sb4 kidney transplant but failed and An. Ever since she has been sick on and off. States that she has been feeling very ill, nausea, vomiting, diarrhea, abdominal pain. States she had a fever a few days ago. She has been attending HD every Tuesday. Mom states that she is not sleeping well either. sb4
[2023-10-04 23:17] VITALS: BP 160/111; TEMP 97.5; O2SAT 99
--- NOTE | 2023-10-06 15:43 | EKG ---
Test Date: 2023-10-04 Test Time: 20:54:37 Freezer Person: NATIVIDAD MEASUREMENT RESULTS: Intervals: Rate: 65 FL: 158 QRSD: 84 QT: 434 QTc: 451 [place]: P: 64 FL: 158 QRS: -64 T: 23 INTERPRETIVE STATEMENTS: Normal sinus rhythm Possible Left atrial enlargement Left axis deviation Septal infarct, age undetermined Abnormal ECG Compared to ECG 05/18/2023 21:12:37 Left ventricular hypertrophy no longer present Myocardial infarct finding still present Electronically Signed On 10-06-23 15:39:43 CDT by Andres Uribe
== END 2023-10-04 22:50 | disposition home or self-care (01) ==
LOC: ER 16:06
DX: J18.1 Lobar pneumonia, unspecified organism (principal); I12.0 Hypertensive chronic kidney disease with stage 5 chronic kidney disease or end stage renal disease; N18.6 End stage renal disease; Z99.2 Dependence on renal dialysis; Z88.1 Allergy status to other antibiotic agents; Z94.4 Liver transplant status; Z28.310 Unvaccinated for COVID-19
CPT/HCPCS: 93005; 87088; 85025; 81001; 87086; 36415; 81025; 84484; 83690; 80053; 83880; 74176; 71045; 96372; 99284; J2550; J2405; J7050; J0696

== ENCOUNTER 2023-10-23 20:52 | Inpatient (IN) | payer OTHER ==
[2023-10-23] MEDS ORDERED: ONDANSETRON 4 MG/2 ML VIAL ONE (21:12)
[2023-10-23] MEDS ORDERED: HYDRALAZINE HCL 20 MG/ML VIAL ONE (21:12)
[2023-10-23] MEDS ORDERED: FAMOTIDINE 20 MG/2 ML VIAL IV ONE (21:12)
[2023-10-23] MEDS ORDERED: MORPHINE 4 MG/ML SYR ONE (21:12)
[2023-10-23 21:47] LABS: Absolute Basophils 0.1 K/uL (0-0.5); Absolute Eosinophils 0.2 K/uL (0-0.5); Absolute Monocytes 0.4 K/uL (0.1-1.3); Absolute Neutrophil 2.9 K/uL (1.8-8.0); Basophils % 1.2 % (0-1.3); Eosinophils % 4.8 % (0-4.4); Hematocrit 27.9 % (36.0-45.0); Hemoglobin 9.3 g/dL (12.0-15.0); Lymphocytes % 22.2 % (15.3-44.8); MCH 28.5 pg (27.0-35.0); MCHC 33.3 g/dL (32.0-36.0); MCV 85.6 fL (80-100); MPV 8.8 fL (7.6-11.3); Monocytes % 8.2 % (3.3-12.3); Neutrophils % 63.6 % (41.7-73.7); Nucleated Red Blood Cells % 0.2 % (0-0); Platelets 140 thou/uL (152-406); RBC Red Blood Cell Count 3.26 M/uL (3.86-4.86); Red Cell Distribution Width 17.5 % (12.1-15.2)
--- NOTE | 2023-10-23 22:02 | RAD REPORT ---
EXAM DESCRIPTION: US - Abdomen Exam Limited - 10/23/2023 9:52 pm CLINICAL HISTORY: ABD PAIN COMPARISON: Abdomen Pelvis Wo Contrast dated 10/04/2023 FINDINGS: The gallbladder demonstrates no gallstones. Free fluid present along the gallbladder. The common bile duct is normal measuring 5 mm. The liver demonstrates no findings of intrahepatic biliary dilatation. IMPRESSION: Negative for cholelithiasis or acute cholecystitis. Free fluid along the gallbladder. The patient had ascites on the prior CT from 10/04/2023.
[2023-10-23 22:21] LABS: Albumin 3.5 g/dL (3.4-5.0); Albumin/Globulin Ratio 0.8 (1.1-1.8); Anion Gap 15.5 mEq/L (5.0-15.0); Bilirubin Total 0.6 mg/dL (0.2-1.0); Globulin 4.3 g/dL (2.3-3.5); Potassium 5.5 mEq/L (3.5-5.1); Protein, Total 7.8 g/dL (6.4-8.2)
--- NOTE | 2023-10-23 22:25 | RAD REPORT ---
EXAM DESCRIPTION: CTAbdomen Pelvis Wo Contrast - 10/23/2023 10:05 pm CLINICAL HISTORY: ABD PAIN COMPARISON: Abdomen Pelvis Wo Contrast dated 10/04/2023; Abdomen Pelvis W Contrast dated 08/19/2023 ; Abdomen Pelvis Wo Contrast dated 06/08/2021 TECHNIQUE: CT of the abdomen and pelvis was performed. All CT scans are performed using dose optimization technique as appropriate and may include automated exposure control or mA/KV adjustment according to patient size. FINDINGS: Lower chest: Patchy ground-glass opacities and interlobular septal thickening. Small pleur al effusions. Cardiomegaly. Liver: No acute abnormality or suspicious lesions. Biliary: No biliary ductal dilatation. Stomach: No significant focal abnormality. Duodenum: No significant focal abnormality. Pancreas: No significant abnormality. Spleen: No significant abnormality. Adrenal: No suspicious lesions. Kidney/ureter: No hydronephrosis. No renal calculi. Atrophic [place] kidneys. Right iliac fossa renal transplant. Similar collecting system fullness. Retroperitoneum: No retroperitoneal adenopathy. Vascular: No aneurysm. Bowel: No significant focal abnormality. Peritoneum: Abdominopelvic free fluid is slightly increased. . Bladder: Grossly unremarkable. Reproductive: No adnexal masses. Bones: No acute fracture. Sclerotic focus in the right bony iliac bone is likely a bone island unchan ged. Other: Body wall edema. IMPRESSION: No acute intra-abdominal or pelvic finding. Anasarca including mild increase in abdominopelvic free fluid, pulmonary edema with small pleural eff usions, and body wall edema.
--- NOTE | 2023-10-24 00:52 | ER ---
Nurse's Notes [facility] Name: Shaun Lopez Age: 33 yrs Sex: Female : 1990 Arrival Date: 10/23/2023 Time: 20:52 Bed 5 Private MD: Diagnosis: Hyperkalemia;Acute pulmonary edema;Hypertensive crisis, end-stage renal disease on hemodialysis, volume overload Presentation: 10/22 20:56 Chief complaint: Patient states: very high blood pressure and extreme fluid retention bm8 in abd. Coronavirus screen: At this time, the client does not indicate any symptoms associated with coronavirus-19. Ebola Screen: Patient negative for fever greater than or equal to 101.5 degrees Fahrenheit, and additional compatible Ebola Virus Disease symptoms Patient denies exposure to infectious person. Patient denies travel to an Ebola-affected area in the 21 days before illness onset. No symptoms or risks identified at this time. Initial Sepsis Screen: Does the patient meet any 2 criteria? No. Patient's initial sepsis screen is negative. Does the patient have a suspected source of infection? No. Patient's initial sepsis screen is negative. Risk Assessment: Do you want to hurt yourself or someone else? Patient reports no desire to harm self or others. Onset of symptoms was October 22, 2023 at 18:00. 20:56 Method Of Arrival: EMS: [facility] bm8 20:56 Acuity: VERNA 3 bm8 21:33 Care prior to arrival: Medication(s) given: 100 mcg fentanyl, losartan 100 mg, bm8 nifedipine 90 mg, hydralazine 100 mg IV initiated. 20 GA, in the right hand. Triage Assessment: 20:56 General: Appears in no apparent distress. uncomfortable, Behavior is calm, cooperative, bm8 appropriate for age. Pain: Complains of pain in abdomen Pain does not radiate. Quality of pain is described as heavy. EENT: No deficits noted. No signs and/or symptoms were reported regarding the EENT system. Neuro: No deficits noted. Level of Consciousness is awake, alert, obeys commands, Oriented to person, place, time, situation, Appropriate for age. Cardiovascular: Reports very high bp Heart tones S1 S2 present Capillary refill < 3 seconds Patient's skin is warm and dry. Cardiovascular: Edema is 1+ to left midcalf, left ankle, left foot, left toes, right midcalf, right ankle, right foot and right toes. Respiratory: No deficits noted. Airway is patent Respiratory effort is even, unlabored, Respiratory pattern is regular, symmetrical, Breath sounds are clear bilaterally. GI: Abdomen is round distended, Bowel sounds present X 4 quads. : No deficits noted. No signs and/or symptoms were reported regarding the genitourinary system. 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: 20:56 LMP 10/05/2023, unknown bm8 Historical: - Allergies: 21:24 Bactrim; bm8 - Home Meds: 21:24 calcitriol 0.25 mcg Oral cap 1 cap [Active]; carvedilol 25 mg Oral tablet 2 times per bm8 day [Active]; clonidine HCl 0.1 mg Oral tab 1 tab every 6 hours [Active]; dapsone 100 mg Oral tablet 1 tab [Active]; dicyclomine 20 mg Oral tablet [Active]; docusate sodium 100 mg Oral cap 1 cap 2 times per day [Active]; losartan potassium 50 mg 1 tab daily [Active]; metoprolol tartrate 100 mg Oral tablet 1 tab [Active]; mycophenolate mofetil 250 mg Oral capsule 3 caps [Active]; nifedipine 60 mg Oral TbER 1 tab twice daily [Active]; sevelamer carbonate 800 mg Oral tab 1 tab 3 times per day [Active]; spironolactone 25 mg Oral tablet 1 tab [Active]; terazosin 2 mg Oral cap 1 cap twice daily [Active]; valganciclovir 450 mg Oral tablet 2 tabs once [Active]; - PMHx: 21:24 brain tumor-removed; Dialysis; End stage renal disease; Hypertension; Migraines; bm8 Seizures; - PSHx: 21:24 brain SX x 2; section; Fistula- L arm; kidney biopsy; kidney transplant; bm8 - Immunization history:: Adult Immunizations up to date, Adult Immunizations. - Infectious Disease History:: Denies. - Social history:: Smoking status: unknown. - Family history:: not pertinent. Screenin:56 [facility] ED Fall Risk Assessment (Adult) History of falling in the last 3 months, bm8 including since admission No falls in past 3 months (0 pts) Confusion or Disorientation No (0 pts) Intoxicated or Sedated No (0 pts) Impaired Gait No (0 pts) Mobility Assist Device Used No (0 pt) Altered Elimination No (0 pt) Score/Fall Risk Level 0 - 2 = Low Risk Oriented to surroundings, Maintained a safe environment, Educated pt \T\ family on fall prevention, incl call for assistance when getting out of bed. Abuse screen: Denies threats or abuse. Nutritional screening: No deficits noted. Tuberculosis screening: No symptoms or risk factors identified. Assessment: 20:56 Reassessment: see triage assessment. 8 10/23 00:46 General: Appears in no apparent distress. uncomfortable, Behavior is calm, cooperative, bm8 appropriate for age. Pain: Complains of pain in head Pain currently is 5 out of 10 on a pain scale. Quality of pain is described as aching. Neuro: No deficits noted. Level of Consciousness is awake, alert, obeys commands, Oriented to person, place, time, situation, Appropriate for age. Cardiovascular: Heart tones S1 S2 present Capillary refill < 3 seconds Patient's skin is warm and dry. Respiratory: Airway is patent Respiratory effort is even, unlabored, Respiratory pattern is regular, symmetrical, Breath sounds are clear bilaterally. GI: Abdomen is round distended, Bowel sounds present X 4 quads. Vital Signs: 10/22 20:56 BP 208 / 142; Pulse 89; Resp 17; Temp 98.8; Pulse Ox 98% on R/A; Pain 6/10; bm8 21:35 BP 173 / 122; Pulse 92; Resp 17; Temp 98.8; Pulse Ox 100% ; Pain 6/10; bm8 22:41 BP 179 / 122; Pulse 85; Resp 20 S; Pulse Ox 100% on R/A; lg3 10/23 00:46 BP 151 / 104; Pulse 93; Resp 18; Temp 98.8; Pulse Ox 99% ; Pain 5/10; bm8 01:27 BP 150 / 105; Pulse 96; Resp 20; Temp 98.8; Pulse Ox 98% ; Pain 4/10; bm8 10/22 20:56 Pain Scale: Adult bm8 21:35 Pain Scale: Adult bm8 10/23 00:46 Pain Scale: Adult bm8 01:27 Pain Scale: Adult bm8 Juanjo Coma Score: 00:46 Eye Response: spontaneous(4). Motor Response: obeys commands(6). Verbal Response: sp4 oriented(5). Total: 15. ED Course: 10/22 20:56 Patient arrived in ED. rv1 20:56 He Leal MD is Attending Physician. sp4 20:56 Arm band placed on left wrist. Patient placed in an exam room, on a stretcher, on bm8 night monitor, on pulse oximetry. 20:56 Patient has correct armband on for positive identification. Bed in low position. Call bm8 light in reach. Side rails up X2. Client placed on continuous cardiac and pulse oximetry monitoring. NIBP monitoring applied. quality assurance monitor final on. Pulse ox on. NIBP on. Door closed. Noise minimized. Lights dimmed. Warm blanket given. Verbal reassurance given. 20:56 Initial lab(s) drawn, by me, sent to lab. Inserted saline lock: 22 gauge in right bm8 antecubital area, using aseptic technique. Blood collected. Missed attempt(s): 20 gauge in right forearm. Bleeding controlled, band aid applied, catheter tip intact. 21:14 Radiology exam delayed due to test not completed at this time. eh4 21:21 Gaurav Lopez, RN is Primary Nurse. bm8 21:24 Triage completed. bm8 21:54 US Abdomen Limited In Process Unspecified. EDMS 22:07 CT Abd/Pelvis - Without Contrast In Process Unspecified. EDMS 10/23 00:50 Tesfaye Llamas MD is Hospitalizing Provider. sp4 01:35 No provider procedures requiring assistance completed. Patient admitted, IV remains in bm8 place. 01:36 Provided Education on: need for admit. bm8 Administered Medications: 10/22 21:32 Drug: Famotidine IVP 20 mg IVP once; dilute with 10 mL 0.9% NaCl; give over 2 minutes bm8 Route: IVP; Site: right antecubital; 10/23 00:50 Follow up: Response: No adverse reaction 8 10/22 21:33 Drug: morphine IVP or IV 4 mg IVP once over 4 mins Route: IVP; Infused Over: 4 mins; bm8 Site: right antecubital; 10/23 00:50 Follow up: Response: No adverse reaction 8 10/22 21:33 Drug: hydrALAZINE IVP 20 mg IVP once Route: IVP; Site: right antecubital; bm8 10/23 00:50 Follow up: Response: No adverse reaction bm8 10/22 21:33 Drug: Ondansetron IVP 4 mg IVP once; over 2 minutes Route: IVP; Site: right antecubital;bm8 10/23 00:50 Follow up: Response: No adverse reaction bm8 01:11 Drug: cloNIDine PO 0.2 mg PO once Route: PO; bm8 01:30 Follow up: Response: No adverse reaction bm8 01:11 Drug: Kayexalate PO 45 grams PO once Route: PO; bm8 01:30 Follow up: Response: No adverse reaction bm8 01:11 Drug: Calcium Gluconate IVPB 1 grams IVPB once over 60 mins; (mix in NS 100 mL) Route: bm8 IVPB; Infused Over: 60 mins; Site: right antecubital; 01:30 Follow up: Response: No adverse reaction; IV Status: Infusion continued; IV Intake: bm8 100ml 01:11 Drug: Acetaminophen PO 1000 mg PO once Route: PO; bm8 01:30 Follow up: Response: No adverse reaction bm8 01:11 Drug: Ondansetron PO 8 mg PO once Route: PO; bm8 01:29 Follow up: Response: No adverse reaction bm8 Medication: 10/22 20:56 VIS not applicable for this client. bm8 Intake: 10/23 01:30 IV: 100ml; Total: 100ml. bm8 Outcome: 00:51 Decision to Hospitalize by Provider. sp4 01:35 Admitted to Tele accompanied by [facility], via wheelchair, room 426, Report called to urmila villeda rn 01:35 Condition: stable 01:35 Instructed on the need for admit, Demonstrated understanding of instructions, follow-up care, 02:18 Patient left the ED. 8 Signatures: Dispatcher [employer] EDMS Glenis Francis RN RN 3 Luis A Nicole [facility] Abiola Roblero rv1 He Leal MD MD sp4 Gaurav Lopez RN RN bm8
--- NOTE | 2023-10-24 00:52 | EDPHYS ---
Physician Documentation [facility] Name: Shaun Lopez Age: 33 yrs Sex: Female : 1990 Arrival Date: 10/23/2023 Time: 20:52 Bed 5 Private MD: ED Physician He Leal HPI: 10/22 20:56 This 33 yrs old Female presents to ER via Unassigned with complaints of sp4 abdominal pain right . 10/23 00:45 33-year-old female with history of end-stage renal disease and history of failed renal sp4 transplant in July [address] [facility], presents with complaint of abdominal pain, abdominal distention as well. . 00:46 Patient also complains of moderate to severe elevated blood pressure associated with sp4 her symptoms. On presentation blood pressure 208/142. [employer]: 10/22 20:56 LMP 10/05/2023, unknown bm8 Historical: - Allergies: 21:24 Bactrim; bm8 - Home Meds: 21:24 calcitriol 0.25 mcg Oral cap 1 cap [Active]; carvedilol 25 mg Oral tablet 2 times per bm8 day [Active]; clonidine HCl 0.1 mg Oral tab 1 tab every 6 hours [Active]; dapsone 100 mg Oral tablet 1 tab [Active]; dicyclomine 20 mg Oral tablet [Active]; docusate sodium 100 mg Oral cap 1 cap 2 times per day [Active]; losartan potassium 50 mg 1 tab daily [Active]; metoprolol tartrate 100 mg Oral tablet 1 tab [Active]; mycophenolate mofetil 250 mg Oral capsule 3 caps [Active]; nifedipine 60 mg Oral TbER 1 tab twice daily [Active]; sevelamer carbonate 800 mg Oral tab 1 tab 3 times per day [Active]; spironolactone 25 mg Oral tablet 1 tab [Active]; terazosin 2 mg Oral cap 1 cap twice daily [Active]; valganciclovir 450 mg Oral tablet 2 tabs once [Active]; - PMHx: 21:24 brain tumor-removed; Dialysis; End stage renal disease; Hypertension; Migraines; bm8 Seizures; - PSHx: 21:24 brain SX x 2; section; Fistula- L arm; kidney biopsy; kidney transplant; bm8 - Immunization history:: Adult Immunizations up to date, Adult Immunizations. - Infectious Disease History:: Denies. - Social history:: Smoking status: unknown. - Family history:: not pertinent. ROS: 10/23 00:46 Constitutional: Negative for fever, chills, and weight loss, positive abdominal pain, sp4 positive fluid retention, positive elevated blood pressure, All other systems are negative, Exam: 00:46 Constitutional: This is a well developed, well nourished patient who is awake, alert, sp4 and in no acute distress. Head/Face: Normocephalic, atraumatic. Eyes: Pupils equal round and reactive to light, extra-ocular motions intact. Lids and lashes normal. Conjunctiva and sclera are not injected. Cornea within normal limits. Periorbital areas with no swelling, redness, or edema. ENT: Nares patent. No nasal discharge, no septal abnormalities noted. Tympanic membranes are normal and external auditory canals are clear. Oropharynx with no redness, swelling, or masses, exudates, or evidence of obstruction, uvula midline. Mucous membranes moist. Neck: Trachea midline, no thyromegaly or masses palpated, and no cervical lymphadenopathy. Supple, full range of motion without nuchal rigidity, or vertebral point tenderness. Chest/axilla: Normal chest wall appearance and motion. Nontender with no deformity. No lesions are appreciated. Cardiovascular: Regular rate and rhythm with a normal S1 and S2. No gallops, murmurs, or rubs. Normal PMI, positive jugular venous distention, no pulse deficits. Positive for left upper arm dialysis fistula with palpable thrill Respiratory: Lungs have equal breath sounds bilaterally, clear to auscultation and percussion. No rales, rhonchi or wheezes noted. No increased work of breathing, no retractions or nasal flaring. Abdomen/GI: Soft, with normal bowel sounds. No distension or tympany. No guarding or rebound. Positive tenderness to right abdominal wall, positive signs of volume overload and fluid retention Back: No spinal tenderness. No costovertebral tenderness. Skin: Warm, dry with normal turgor. Normal color with no rashes, no lesions, and no evidence of cellulitis. MS/ Extremity: Pulses equal, no cyanosis. Neurovascular intact. Full, normal range of motion. Neuro: Awake and alert, GCS 15, oriented to person, place, time, and situation. Cranial nerves II-XII grossly intact. Motor strength 5/5 in all extremities. Sensory grossly intact. Psych: Awake, alert, with orientation to person, place and time. Behavior, mood, and affect are within normal limits Vital Signs: 10/22 20:56 BP 208 / 142; Pulse 89; Resp 17; Temp 98.8; Pulse Ox 98% on R/A; Pain 6/10; bm8 21:35 BP 173 / 122; Pulse 92; Resp 17; Temp 98.8; Pulse Ox 100% ; Pain 6/10; bm8 22:41 BP 179 / 122; Pulse 85; Resp 20 S; Pulse Ox 100% on R/A; lg3 10/23 00:46 BP 151 / 104; Pulse 93; Resp 18; Temp 98.8; Pulse Ox 99% ; Pain 5/10; bm8 01:27 BP 150 / 105; Pulse 96; Resp 20; Temp 98.8; Pulse Ox 98% ; Pain 4/10; bm8 10/22 20:56 Pain Scale: Adult bm8 21:35 Pain Scale: Adult bm8 10/23 00:46 Pain Scale: Adult bm8 01:27 Pain Scale: Adult bm8 [place] Coma Score: 00:46 Eye Response: spontaneous(4). Motor Response: obeys commands(6). Verbal Response: sp4 oriented(5). Total: 15. MDM: 10/22 22:37 Patient medically screened. sp4 10/23 00:33 ED course: CT report 10/04/2023 - RADIOLOGY SERVICES REPORT Name: SHAUN LOPEZ spWinnie Acct Number: [id number] :1990 Age:33 Sex:F Ord Phys: Lillian Miramontes PAC Unit Number: [id number] [facility] [address]: NONE Status: REG ER Exam Date: 10/04/23 EXAM DESCRIPTION: CT - Abdomen Pelvis Wo Contrast - 10/04/2023 8:18 pm CLINICAL HISTORY: Abdominal pain. ABD PAIN COMPARISON: Abdomen Pelvis W Contrast dated 08/19/2023 TECHNIQUE: CT imaging of the abdomen and pelvis was performed without contrast. Solid organ, bowel and vascular assessment is limited due to lack of IV and oral contrast. All CT scans are performed using dose optimization technique as appropriate and may include automated exposure control or mA/KV adjustment according to patient size. FINDINGS: The lower lung guy are clear. The liver, spleen, pancreas, adrenal glands are within normal limits for a limited non-contrast examination.Right lower quadrant transplant kidney noted, unchanged. Mild free fluid in the abdomen pelvis. No bowel obstruction or free air. The appendix is normal. Atrophic [place] kidneys. The osseous structures are within normal limits. IMPRESSION: Right lower quadrant transplant kidney with mild hydronephrosis. It appears unchanged since 08/19/2023 study. A limited non-contrast examination was performed as detailed. Signed By: Giovanny Hunt MD Signed AT: 10/04/23 202. 00:37 ED course: EXAM DESCRIPTION: CTAbdomen Pelvis Wo Contrast - 10/23/2023 10:05 pm CLINICAL sp4 HISTORY: ABD PAIN COMPARISON: Abdomen Pelvis Wo Contrast dated 10/04/2023; Abdomen Pelvis W Contrast dated 08/19/2023; Abdomen Pelvis Wo Contrast dated 06/08/2021 TECHNIQUE: CT of the abdomen and pelvis was performed. All CT scans are performed using dose optimization technique as appropriate and may include automated exposure control or mA/KV adjustment according to patient size. FINDINGS: Lower chest: Patchy ground-glass opacities and interlobular septal thickening. Small pleural effusions. Cardiomegaly. Liver: No acute abnormality or suspicious lesions. Biliary: No biliary ductal dilatation. Stomach: No significant focal abnormality. Duodenum: No significant focal abnormality. Pancreas: No significant abnormality. Spleen: No significant abnormality. Adrenal: No suspicious lesions. Kidney/ureter: No hydronephrosis. No renal calculi. Atrophic [place] kidneys. Right iliac fossa renal transplant. Similar collecting system fullness. Retroperitoneum: No retroperitoneal adenopathy. Vascular: No aneurysm. Bowel: No significant focal abnormality. Peritoneum: Abdominopelvic free fluid is slightly increased. . Bladder: Grossly unremarkable. Reproductive: No adnexal masses. Bones: No acute fracture. Sclerotic focus in the right bony iliac bone is likely a bone island unchanged. Other: Body wall edema. IMPRESSION: No acute intra-abdominal or pelvic finding. Anasarca including mild increase in abdominopelvic free fluid, pulmonary edema with small pleural effusions, and body wall edema. . 00:43 Data reviewed: vital signs, nurses notes. ED course: EXAM DESCRIPTION: US - Abdomen sp4 Exam Limited - 10/23/2023 9:52 pm CLINICAL HISTORY: ABD PAIN COMPARISON: Abdomen Pelvis Wo Contrast dated 10/04/2023 FINDINGS: The gallbladder demonstrates no gallstones. Free fluid present along the gallbladder. The common bile duct is normal measuring 5 mm. The liver demonstrates no findings of intrahepatic biliary dilatation. IMPRESSION: Negative for cholelithiasis or acute cholecystitis. Free fluid along the gallbladder. The patient had ascites on the prior CT from 10/04/2023.. 00:46 Differential Diagnosis altered mental status, sepsis, flu, Volume overload. sp4 Consideration of Admission/Observation Patient was admitted/placed on observation. Escalation of care including admission/observation considered. Management of patient was discussed with the following: Hospitalist: Farhad NOLAN . Outreach Consultant: Celi Dejesus MD - Nephrology . ED course: Mild hyperkalemia pulmonary edema and volume overload warrants admission with dialysis in the morning. For now will administer Kayexalate p.o. for hyperkalemia. . 10/22 20:57 Order name: CBC with Diff; Complete Time: 00:32 sp4 10/22 20:57 Order name: CMP; Complete Time: 00:32 sp4 10/22 20:57 Order name: Lipase; Complete Time: 00:32 sp4 10/22 20:57 Order name: Urinalysis w/ reflexes sp4 10/23 01:16 Order name: Urinalysis w/ reflexes EDNE 10/22 20:58 Order name: CT Abd/Pelvis - Without Contrast; Complete Time: 00:32 sp4 10/22 20:58 Order name: US Abdomen Limited; Complete Time: 00:32 sp4 10/23 01:16 Order name: CONS Physician Consult EDNE 10/22 20:57 Order name: IV Saline Lock; Complete Time: 21:32 sp4 10/22 20:57 Order name: Labs collected and sent; Complete Time: 21:32 sp4 Administered Medications: 10/22 21:32 Drug: Famotidine IVP 20 mg IVP once; dilute with 10 mL 0.9% NaCl; give over 2 minutes bm8 Route: IVP; Site: right antecubital; 10/23 00:50 Follow up: Response: No adverse reaction bm8 10/22 21:33 Drug: morphine IVP or IV 4 mg IVP once over 4 mins Route: IVP; Infused Over: 4 mins; bm8 Site: right antecubital; 10/23 00:50 Follow up: Response: No adverse reaction 8 10/22 21:33 Drug: hydrALAZINE IVP 20 mg IVP once Route: IVP; Site: right antecubital; bm8 10/23 00:50 Follow up: Response: No adverse reaction 8 10/22 21:33 Drug: Ondansetron IVP 4 mg IVP once; over 2 minutes Route: IVP; Site: right antecubital;bm8 10/23 00:50 Follow up: Response: No adverse reaction bm8 01:11 Drug: cloNIDine PO 0.2 mg PO once Route: PO; bm8 01:30 Follow up: Response: No adverse reaction bm8 01:11 Drug: Kayexalate PO 45 grams PO once Route: PO; bm8 01:30 Follow up: Response: No adverse reaction bm8 01:11 Drug: Calcium Gluconate IVPB 1 grams IVPB once over 60 mins; (mix in NS 100 mL) Route: bm8 IVPB; Infused Over: 60 mins; Site: right antecubital; 01:30 Follow up: Response: No adverse reaction; IV Status: Infusion continued; IV Intake: bm8 100ml 01:11 Drug: Acetaminophen PO 1000 mg PO once Route: PO; bm8 01:30 Follow up: Response: No adverse reaction bm8 01:11 Drug: Ondansetron PO 8 mg PO once Route: PO; bm8 01:29 Follow up: Response: No adverse reaction bm8 Disposition Summary: 10/24/23 00:51 Hospitalization Ordered Notes: Hospitalization Status: Observation sp4 Provider: Tesfaye Llamas sp4 Location: Telemetry/MedSurg (observation) sp4 Condition: Stable sp4 Problem: new sp4 Symptoms: have improved sp4 Bed/Room Type: Standard sp4 Room Assignment: 426(10/24/23 01:21) rv1 Diagnosis - Hyperkalemia sp4 - Acute pulmonary edema sp4 - Hypertensive crisis, end-stage renal disease on hemodialysis, volume overload sp4 Forms: - Medication Reconciliation Form sp4 - SBAR form sp4 - Leadership Thank You Letter sp4 Signatures: Dispatcher [employer] Shaunna Bae RN RN vc1 Abiola Roblero rv1 He Leal MD MD sp4 Gaurav Lopez RN RN bm8 Corrections: (The following items were deleted from the chart) 10/22 20:58 20:58 CBC+H.LAB.BRZ ordered. EDMS EDMS 20:58 20:58 COMPREHENSIVE METABOLIC PANEL+C.LAB.BRZ ordered. EDMS EDMS 20:58 20:58 LIPASE+C.LAB.BRZ ordered. EDMS EDMS 20:58 20:58 Urinalysis+U.LAB.BRZ ordered. EDMS EDMS 10/23 01:21 00:51 sp4 rv1
[2023-10-24] MEDS ORDERED: SOD POLYSTYREN SUL 15 GM/60 ML UCUP ONE (00:54)
[2023-10-24] MEDS ORDERED: CALCIUM GLUCONATE 1 GM IVPB 1 GM/50 ML BAG IV ONE (00:55)
[2023-10-24] MEDS ORDERED: cloNIDine HCL 0.1 MG TAB ONE (00:55)
[2023-10-24] MEDS ORDERED: ACETAMINOPHEN 500 MG TAB ONE (00:55)
[2023-10-24] MEDS ORDERED: ONDANSETRON 4 MG (ODT) TAB ONE (01:02)
[2023-10-24] MEDS ORDERED: ACETAMINOPHEN 325 MG TABLET PO PRN (01:11)
[2023-10-24] MEDS ORDERED: ONDANSETRON 4 MG/2 ML VIAL IV PRN (01:11)
[2023-10-24] MEDS ORDERED: ALBUTEROL 2.5 MG/3 ML NEB SOL NEB PRN ×2 (01:11→14:11)
--- NOTE | 2023-10-24 01:11 | P.HP ---
Certification for Inpatient Patient admitted to: Inpatient With expected LOS: >2 Midnights Practitioner: I am a practitioner with admitting privileges, knowledge of patient current condition, hospital course, and medical plan of care. Services: Services provided to patient in accordance with Admission requirements found in Title 42 Section 412.3 of the Code of Federal Regulations Patient History Date of Service: 10/24/23 Reason for admission: SOB . History of Present Illness: 33-year-old female with history of end-stage renal disease and history of failed renal transplant in July 2023 in [facility],, history of migraines, seizure disorder, history of brain tumor presents with complaint of abdominal pain associated with abdominal distention as well. She was assessed in the ER and was found to have elevated blood pressure as well. Patient had abdomen ultrasound was showing no acute changes. CT abdomen pelvis showed no acute intra-abdominal findings other than anasarca with pulmonary edema. Patient is being admitted for further management for possible ileus versus early SBO Allergies No Known Allergies Allergy (Unverified 11/11/11 20:43) Home medications list reviewed: Yes Home Medications: Epoetin Ever-Epbx [Retacrit] 4,000 unit SQ T,TH,S 05/27/21 diphenhydrAMINE HCL [Diphenhydramine HCl] 50 mg PO Q6HR PRN 05/27/21 Sevelamer Carbonate [Renvela*] 800 mg PO TIDWM #90 tablet 06/02/21 Carvedilol [Coreg] 25 mg PO BID 30 Days #60 tablet 06/03/21 Docusate Sodium 100 mg PO BID 30 Days #60 capsule 06/03/21 Losartan Potassium [Cozaar*] 50 mg PO DAILY 30 Days #30 tablet 06/03/21 NIFEdipine [Nifedipine ER] 60 mg PO BID 30 Days #60 tablet.er 06/03/21 Ondansetron [Zofran (Odt)*] 4 mg PO Q8HR #30 tab 06/03/21 Terazosin HCl 2 mg PO BID 30 Days #60 capsule 06/03/21 calcitrioL [Rocaltrol] 0.25 mcg PO DAILY 30 Days #30 capsule 06/03/21 cloNIDine HCL [Clonidine HCl] 0.1 mg PO Q6H 30 Days #120 tablet 06/03/21 polyethylene glycoL 3350 [Polyethylene Glycol 3350] 17 gm PO DAILY 30 Days #30 powd.pack 06/03/21 - Past Medical/Surgical History Past Medical History: Reviewed- Non-Contributory -: Hypertension -: End-stage renal disease on hemodialysis -: Seizures (as a child) -: Brain tumor -: Asthma Past Surgical History: Reviewed- Non-Contributory Psychosocial/ Personal History: Lives at home - Family History Family History: Reviewed- Non-Contributory - Social History Smoking Status: Never smoker Alcohol use: No CD- Drugs: No Review of Systems 10-point ROS is otherwise unremarkable Physical Examination - Vital Signs Temperature: 98.8 F Blood Pressure: 208/142 Pulse: 88 Respirations: 18 Pulse Ox (%): 94 - Physical Exam General: Alert, Oriented x3, Cooperative, Mild distress HEENT: Atraumatic, Normocephalic Neck: Supple, 2+ carotid pulse no bruit Respiratory: Clear to auscultation bilaterally, Normal air movement, Crackles/rales Cardiovascular: Regular rate/rhythm, Normal S1 S2, Edema Capillary refill: <2 Seconds Gastrointestinal: Distended, Ascites, Tenderness Musculoskeletal: No clubbing, No swelling Integumentary: No rashes, No breakdown Neurological: Normal strength at 5/5 x4 extr, Cranial nerves 3-12 intact, Normal reflexes 2+, Normal affect Lymphatics: No axilla or inguinal lymphadenopathy - Studies Laboratory Data (last 24 hrs) 10/23/23 10/23/23 21:13 21:13 WBC 4.50 Hgb 9.3 L Hct 27.9 L Plt Count 140 L Sodium 132 L Potassium 5.5 H BUN 45 H Creatinine 9.46 H Glucose 95 Total Bilirubin 0.6 AST 27 ALT 19 Alkaline Phosphatase 65 Lipase 14 Assessment and Plan - Problems (Diagnosis) (1) Intractable abdominal pain Current Visit: Yes Status: Acute (2) Hypertensive urgency Current Visit: Yes Status: Acute (3) ESRD (end stage renal disease) Current Visit: No Status: Acute Plan: Intractable abdominal pain Possible ileus versus early SBO Pain control CT negative for any acute changes except for increased anasarca and abdominal pelvic fluid Ultrasound negative for cholecystitis Zofran as needed Surgical consult Hypertensive urgency Continue home medications Hydralazine as needed Monitor closely on telemetry ESRD on dialysis Nephrology consulted Continue home medications Electrolytes monitor and replace accordingly Hyponatremia Hyperkalemia Electrolytes replaced Kayexalate as needed Anemia of chronic disease Monitor CBC daily Transfuse as needed Seizure disorder Continue home medications GI/DVT prophylaxis Advanced directive full code Discharge Plan: Home - Advance Directives Does patient have a Living Will: No Does patient have a Durable POA for Healthcare: No - Code Status/Comfort Care Code Status: Full Code Time Spent Managing Pts Care (In Minutes): 48
[2023-10-24] MEDS: SODIUM ZIRCONIUM CYCLOSILICATE 10 GM/PKT PO ONE ×2 (01:14→09:21)
[2023-10-24] MEDS: FUROSEMIDE 40 MG/4 ML VIAL IV SCH (02:43)
[2023-10-24 02:58] VITALS: TEMP 98.8
[2023-10-24 03:36] VITALS: BMI 27.1
[2023-10-24] MEDS: SOD POLYSTYREN SUL 15 GM/60 ML UCUP PO ONE ×2 (04:31→08:31)
[2023-10-24] MEDS ORDERED: HYDRALAZINE HCL 20 MG/ML VIAL IV PRN (05:23)
[2023-10-24] MEDS ORDERED: DIPHENHYDRAMINE 25 MG TAB/CAP PO PRN (05:26)
[2023-10-24 06:35] LABS: Anion Gap 14.9 mEq/L (5.0-15.0); Magnesium 2.3 mg/dL (1.6-2.4); Phosphorus 6.3 mg/dL (2.5-4.9); Potassium 5.9 mEq/L (3.5-5.1)
[2023-10-24] MEDS: cloNIDine HCL 0.1 MG TAB PO SCH (06:47)
[2023-10-24] MEDS: IPRATROPIUM BROM 0.5MG/2.5ML NEB SCH (07:46)
[2023-10-24 08:03] VITALS: O2SAT 96
--- NOTE | 2023-10-24 08:08 | P.PN ---
Subjective Date of Service: 10/24/23 Chief Complaint: SOB <Gladys Donohue - Last Filed: 10/24/23 08:08> Date of Service: 10/24/23 <Reg Medina - Last Filed: 10/24/23 14:16> Review of Systems 10-point ROS is otherwise unremarkable Respiratory: Shortness of Breath Cardiovascular: Edema <Gladys Donohue - Last Filed: 10/24/23 08:08> Physical Examination - Vital Signs Temperature: 98.8 F Blood Pressure: 122/68 Pulse: 82 Respirations: 18 Pulse Ox (%): 94 - Physical Exam General: Alert, In no apparent distress, Oriented x3 HEENT: Atraumatic, Normocephalic Neck: Supple Respiratory: Normal air movement Cardiovascular: Regular rate/rhythm, Systolic murmur Capillary refill: <2 Seconds Gastrointestinal: Soft and benign Musculoskeletal: No clubbing Integumentary: No rashes Neurological: Normal speech, Normal tone Lymphatics: No axilla or inguinal lymphadenopathy Urinary: Dialysis catheter External genitalia: Deferred Rectal: Deferred - Studies Laboratory Data (last 24 hrs) 10/23/23 10/23/23 21:13 21:13 WBC 4.50 Hgb 9.3 L Hct 27.9 L Plt Count 140 L Sodium 132 L Potassium 5.5 H BUN 45 H Creatinine 9.46 H Glucose 95 Total Bilirubin 0.6 AST 27 ALT 19 Alkaline Phosphatase 65 Lipase 14 <Gladys Donohue - Last Filed: 10/24/23 08:08> - Studies Laboratory Data (last 24 hrs) 10/23/23 10/23/23 21:13 21:13 WBC 4.50 Hgb 9.3 L Hct 27.9 L Plt Count 140 L Sodium 132 L Potassium 5.5 H BUN 45 H Creatinine 9.46 H Glucose 95 Total Bilirubin 0.6 AST 27 ALT 19 Alkaline Phosphatase 65 Lipase 14 <Reg Medina - Last Filed: 10/24/23 14:16> Assessment And Plan - Plan - Problems (Diagnosis) (1) Intractable abdominal pain Current Visit: Yes Status: Acute (2) Hypertensive urgency Current Visit: Yes Status: Acute (3) ESRD (end stage renal disease) Current Visit: No Status: Acute Plan: Intractable abdominal pain - 4/22 No c/o abdominal pain on assessment this am Possible ileus versus early SBO Pain control CT negative for any acute changes except for increased anasarca and abdominal pelvic fluid Ultrasound negative for cholecystitis Zofran as needed Surgical consult Hypertensive urgency Continue home medications Hydralazine as needed Monitor closely on telemetry - 10/23 at 0812 116/70 ESRD on dialysis Nephrology consulted (sees Dr. Tello - dialysis Tu//Sat) Electrolytes monitor and replace accordingly Hyponatremia Hyperkalemia Electrolytes replaced Kayexalate as needed Anemia of chronic disease Monitor CBC daily Transfuse as needed Seizure disorder Continue home medications GI/DVT prophylaxis Advanced directive full code <Gladys Donohue - Last Filed: 10/24/23 08:08> - Plan Pt seen and examined. I agree with the note by the CABINET PROFESSIONAL. Pt denies any nausea or vomiting. She tolerated breakfast this am. Abdomen is not distended. CT abd is unremarkable. Consulted GEn surgeon for possible ileus. Consulted Nephrology. Treated hyperkalemia with kayexalate. Will improve with dialysis. <Reg Medina - Last Filed: 10/24/23 14:16>
[2023-10-24] MEDS: SEVELAMER CARBONATE 800 MG TABLET PO SCH (08:21)
[2023-10-24] MEDS: LOSARTAN POTASSIUM 50 MG TABLET PO SCH (08:21)
[2023-10-24] MEDS: DOCUSATE NA 100 MG CAP PO SCH (08:21)
[2023-10-24] MEDS: POLYETHYL GLY 3350 17 GM/DOSE PO SCH (08:22)
[2023-10-24] MEDS: HEPARIN 5000 UNIT/ML 1 ML VIAL SQ SCH (08:22)
[2023-10-24] MEDS: NIFEDIPINE XL 60 MG TABLET PO SCH (08:23)
[2023-10-24] MEDS: carvediloL 25 MG TAB PO SCH (08:23)
[2023-10-24] MEDS: CALCITROL 0.25 MCG CAP PO SCH (08:23)
[2023-10-24] MEDS: CALCIUM GLUCONATE 1 GM IVPB 1 GM/50 ML BAG IV ONE (09:20)
[2023-10-24] MEDS: TERAZOSIN HCL 1 MG CAP PO SCH (09:21)
[2023-10-24] MEDS ORDERED: GLUCAGON 1 MG/VIAL IM PRN (13:36)
[2023-10-24] MEDS ORDERED: D50W 25 GM/50 ML SYRINGE IV PRN (13:36)
[2023-10-24] MEDS: INSULIN REGULAR (HUMAN) 100 UNIT/ML IV ONE (13:36)
[2023-10-24] MEDS ORDERED: D10W 125 ML IV PRN (13:59)
[2023-10-24] MEDS: D50W 25 GM/50 ML SYRINGE IV ONE (14:00)
[2023-10-24 14:28] LABS: Hepatitis B surface AG Interp. Nonreactive (Nonreactive)
[2023-10-24 14:29] LABS: HBsAG Nonreactive Report Report
[2023-10-24 16:54] LABS: Anion Gap 9.3 mEq/L (5.0-15.0); Potassium 3.3 mEq/L (3.5-5.1)
[2023-10-24 18:53] VITALS: BP 140/80
--- NOTE | 2023-10-24 19:06 | P.DS ---
Admission Date: 10/24/23 Discharge Date: 10/24/23 Reason for Admission: SOB Consultations: Dr. 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 She was assessed in the ER and was found to have elevated blood pressure. Patient had abdomen ultrasound was showing no acute changes. CT abdomen pelvis showed no acute intra-abdominal findings other than anasarca with pulmonary edema.Patient is being admitted for further management for possible ileus versus early SBO. Hospital Course: She did well over the course of her hospitalization, tolerated meals, had dialysis. Feeling back to normal. Surgical consult cancelled. She states she will be able to get to dialysis tomorrow without difficulty. <Gladys Donohue - Last Filed: 10/24/23 19:35> Admission Date: 10/24/23 Discharge Date: 10/24/23 Hospital Course: Pt seen and examined. I agree with the note by the ROOM SERVER. Pt did dialysis. K and Cr improved. Pt was advised to do HD tomorrow. She tolerated diet. No abdominal distention. Ok to discharge pt. <Reg Medina - Last Filed: 10/24/23 20:10> Disposition: ROUTINE DISCHARGE Discharge Condition: GOOD Vital Signs/Physical Exam: Temp Pulse Resp BP Pulse Ox 98.8 F 88 16 140/80 95 10/24/23 16:00 10/24/23 16:00 10/24/23 16:00 10/24/23 16:00 10/24/23 16:00 General: Alert, In no apparent distress, Oriented x3 HEENT: Atraumatic, Normocephalic Neck: JVD not distended Respiratory: Normal air movement Cardiovascular: Normal pulses, Regular rate/rhythm, Systolic murmur, Diastolic murmur Capillary refill: <2 Seconds Gastrointestinal: Soft and benign, Non-distended Musculoskeletal: No clubbing Integumentary: No rashes Neurological: Normal speech, Normal tone Lymphatics: No axilla or inguinal lymphadenopathy External genitalia: Deferred Rectal: Deferred Laboratory Data at Discharge: WBC 4.50 thou/uL (4.3-10.9) 10/23/23 21:13 Hgb 9.3 g/dL (12.0-15.0) L 10/23/23 21:13 Hct 27.9 % (36.0-45.0) L 10/23/23 21:13 Plt Count 140 thou/uL (152-406) L 10/23/23 21:13 Sodium 137 mEq/L (136-145) D 10/24/23 16:28 Potassium 3.3 mEq/L (3.5-5.1) L D 10/24/23 16:28 BUN 17 mg/dL (7-18) 10/24/23 16:28 Creatinine 4.59 mg/dL (0.55-1.02) H 10/24/23 16:28 Glucose 126 mg/dL (74-106) H 10/24/23 16:28 Phosphorus 6.3 mg/dL (2.5-4.9) H 10/24/23 05:59 Magnesium 2.3 mg/dL (1.6-2.4) 10/24/23 05:59 Total Bilirubin 0.6 mg/dL (0.2-1.0) 10/23/23 21:13 AST 27 U/L (15-37) 10/23/23 21:13 ALT 19 U/L (13-56) 10/23/23 21:13 Alkaline Phosphatase 65 U/L (45-117) 10/23/23 21:13 Lipase 14 U/L (13-75) 10/23/23 21:13 <Donohue,Gladys Cristian - Last Filed: 10/24/23 19:35> Vital Signs/Physical Exam: Temp Pulse Resp BP Pulse Ox 98.8 F 88 16 140/80 95 10/24/23 16:00 10/24/23 16:00 10/24/23 16:00 10/24/23 16:00 10/24/23 16:00 Laboratory Data at Discharge: WBC 4.50 thou/uL (4.3-10.9) 10/23/23 21:13 Hgb 9.3 g/dL (12.0-15.0) L 10/23/23 21:13 Hct 27.9 % (36.0-45.0) L 10/23/23 21:13 Plt Count 140 thou/uL (152-406) L 10/23/23 21:13 Sodium 137 mEq/L (136-145) D 10/24/23 16:28 Potassium 3.3 mEq/L (3.5-5.1) L D 10/24/23 16:28 BUN 17 mg/dL (7-18) 10/24/23 16:28 Creatinine 4.59 mg/dL (0.55-1.02) H 10/24/23 16:28 Glucose 126 mg/dL (74-106) H 10/24/23 16:28 Phosphorus 6.3 mg/dL (2.5-4.9) H 10/24/23 05:59 Magnesium 2.3 mg/dL (1.6-2.4) 10/24/23 05:59 Total Bilirubin 0.6 mg/dL (0.2-1.0) 10/23/23 21:13 AST 27 U/L (15-37) 10/23/23 21:13 ALT 19 U/L (13-56) 10/23/23 21:13 Alkaline Phosphatase 65 U/L (45-117) 10/23/23 21:13 Lipase 14 U/L (13-75) 10/23/23 21:13 <Reg Medina - Last Filed: 10/24/23 20:10> Diet: Renal Activity: Ad jose luis <Donohue,Gladys Cristian - Last Filed: 10/24/23 19:35> <Reg Medina - Last Filed: 10/24/23 20:10> Home Medications: Clonidine Patch [Catapres-Tts 3*] 1 patch TOP DAILY 10/24/23 Divalproex Sodium 1 tab PO DAILY 10/24/23 Furosemide [Lasix*] 1 mg PO DAILY 10/24/23 Hydralazine HCl 1 tab PO BID 10/24/23 Lisinopril [Zestril] 1 tab PO DAILY 10/24/23 Losartan Potassium 1 tab PO DAILY 10/24/23 NIFEdipine [Nifedipine ER] 1 tab PO DAILY 10/24/23 Physician Discharge Instructions: Okay to DC IV and DC home Follow-up with primary care provider in 1 to 2 weeks Follow-up with dialysis tomorrow Please call the inpatient unit for any questions or concerns regarding hospital stay Return to the ER for worsening symptoms Continue regular home medications Followup: NONE,NONE [Primary Care Provider] -
--- NOTE | 2023-10-25 04:05 | CON ---
Date of Consultation: 10/24/2023 Chief Complaint: End-stage renal disease, hyperkalemia, fluid overload. History Of Present Illness: The patient is a 33-year-old woman with history of end-stage renal disea se, on hemodialysis on Tuesday, , and Tuesday. Last dialysis was done on Tuesday. The pat ieernesto has history of failed renal transplant, and in July, she resumed hemodialysis. Transplant wa s done in [place], [place]. The patient has history of migraine, seizure disorder, history of brai n tumor. She presented to the hospital because of abdominal pain in the right lower quadrant locatio n associated with some abdominal distention. She was evaluated in the emergency room and was admitte d to the hospital. She was found to have hyperkalemia and fluid overload. CT scan of the abdomen an d pelvis showed no acute intra-abdominal findings other than anasarca and pulmonary edema was identif ied on this CT scan. The patient is admitted for further management to rule out possible ileus versu s SBO. Review of Systems: Constitutional: Patient denies fever, chills. Denies vision changes. Ears, Nose, Mouth, and Throat: Denies sore throat, earache. Respiratory: Has some shortness of breath with activities. Denies PND or orthopnea. Cardiovascular: Denies chest pain, palpitation, syncope. GI: Had some abdominal pain, discomfort. Currently, she is pain free. Denies nausea, vomiting, brian etta, hematemesis. All other systems reviewed and all are negative. Past Medical History: Hypertension; end-stage renal disease, on hemodialysis; seizure as a child; br ain tumor; asthma; anemia; CKD; kidney transplant. Family History: No kidney disease. Social History: Never smoker. Alcohol, denies. Denies drugs. Physical Examination: General: Not in acute distress. Eyes: Anicteric sclerae. EOMI. Ears, Nose, Mouth, and Throat: Oral mucosa moist. No pallor. Neck: Supple. No bruits. Lungs: Equal chest expansion. No rhonchi. No wheezing. Heart: S1, S2. No pericardial friction rubs. Abdomen: Soft, benign, nontender. No rebound. No guarding. Extremities: Slight edema in both legs. Laboratory Data: WBC 4.5, hemoglobin 9.3, platelet count 140. Sodium 132, potassium 5.5, BUN 35. Impression/plan: 1.End-stage renal disease, fluid overload, anemia in chronic kidney disease, renal osteodystrophy, h ypertensive urgency. Blood pressure is improving. Patient has had intractable abdominal pain and wo rkup is pending. Abdominal pain is resolving. CT scan was negative for acute changes except for inc reased anasarca and abdominal pelvic fluid. Ultrasound is negative for cholecystitis. Continue Zofr an as needed. Continue to monitor fluid status post. 2.Hypertensive urgency. The patient will continue hydralazine and advanced blood pressure medicatio n according to lab results. 3.Hyperkalemia. Electrolytes replaced. The patient is awaiting dialysis with urgent procedure to t reat hyperkalemia, fluid overload, provide metabolic clearance as well as ultrafiltration to control volemia status. 4.Anemia of chronic disease. Monitor CBC, renal osteodystrophy. Monitor phosphorus level. 5.Seizure disorder. Continue home medication. TAISHA/MODL Voice ID: [id number] Report ID: [id number]
== END 2023-10-24 20:25 | disposition home or self-care (01) | DRG 640 ==
LOC: ER 20:52 → 4TH 10-24 01:11 → 2ND 10-24 10:56
PROVIDERS: ADMIT Family Medicine; ATTEND Hospitalist
PROC: 5A1D70Z Performance of Urinary Filtration, Intermittent, Less than 6 Hours Per Day (ICD-10-PCS; principal; 2023-10-24)
DX: E87.5 Hyperkalemia (principal); J81.0 Acute pulmonary edema; N18.6 End stage renal disease; I12.0 Hypertensive chronic kidney disease with stage 5 chronic kidney disease or end stage renal disease; I16.0 Hypertensive urgency; E87.1 Hypo-osmolality and hyponatremia; D63.1 Anemia in chronic kidney disease; N25.0 Renal osteodystrophy; G40.909 Epilepsy, unspecified, not intractable, without status epilepticus; Z99.2 Dependence on renal dialysis; Z79.02 Long term (current) use of antithrombotics/antiplatelets; Z91.158 Patient's noncompliance with renal dialysis for other reason; Z79.899 Other long term (current) drug therapy
CPT/HCPCS: 36415; 74176; 76705; 80048; 80053; 83690; 83735; 84100; 85025; 87340; 90935; 94640; 94760; 96365; 96375; 99285; J0360; J0612; J1644; J1940; J2405; J7644; Q0162

== ENCOUNTER 2023-10-26 19:30 | Inpatient (IN) | payer OTHER ==
[2023-10-26 19:57] LABS: Absolute Basophils 0.1 K/uL (0-0.5); Absolute Eosinophils 0.4 K/uL (0-0.5); Absolute Lymphocytes (CBC) 0.9 K/uL (0.7-4.9); Absolute Monocytes 0.3 K/uL (0.1-1.3); Absolute Neutrophil 2.7 K/uL (1.8-8.0); Basophils % 1.2 % (0-1.3); Eosinophils % 8.2 % (0-4.4); Hematocrit 23.4 % (36.0-45.0); Hemoglobin 7.6 g/dL (12.0-15.0); Lymphocytes % 21.1 % (15.3-44.8); MCH 28.1 pg (27.0-35.0); MCHC 32.6 g/dL (32.0-36.0); MCV 86.4 fL (80-100); MPV 8.3 fL (7.6-11.3); Monocytes % 7.8 % (3.3-12.3); Neutrophils % 61.7 % (41.7-73.7); Nucleated Red Blood Cells % 0.5 % (0-0); Platelets 149 thou/uL (152-406); RBC Red Blood Cell Count 2.71 M/uL (3.86-4.86); Red Cell Distribution Width 17.8 % (12.1-15.2)
[2023-10-26 20:00] LABS: PT Prothrombin Time 14.2 SECONDS (9.5-12.5); Protime INR 1.3
[2023-10-26] MEDS ORDERED: HYDRALAZINE HCL 20 MG/ML VIAL ONE (20:04)
[2023-10-26] MEDS ORDERED: AMLODIPINE 10 MG TAB ONE (20:04)
[2023-10-26] MEDS ORDERED: ONDANSETRON 4 MG/2 ML VIAL ONE (20:04)
[2023-10-26] MEDS ORDERED: MORPHINE 4 MG/ML SYR ONE (20:05)
[2023-10-26] MEDS ORDERED: FUROSEMIDE 40 MG/4 ML VIAL ONE (20:17)
[2023-10-26] MEDS ORDERED: FUROSEMIDE 20 MG/ 2ML VIAL ONE (20:17)
[2023-10-26 20:31] LABS: Albumin 3.1 g/dL (3.4-5.0); Albumin/Globulin Ratio 0.9 (1.1-1.8); Anion Gap 15.2 mEq/L (5.0-15.0); Bilirubin Direct 0.2 mg/dL (0-0.2); Bilirubin Indirect, Calculated 0.5 mg/dL (0.2-0.8); Bilirubin Total 0.7 mg/dL (0.2-1.0); Globulin 3.6 g/dL (2.3-3.5); Magnesium 2.1 mg/dL (1.6-2.4); Potassium 5.2 mEq/L (3.5-5.1); Protein, Total 6.7 g/dL (6.4-8.2); Troponin High Sensitivity 30.2 pg/mL (<58.9)
--- NOTE | 2023-10-26 20:48 | ER ---
Nurse's Notes [facility] Name: Shaun Lopez Age: 33 yrs Sex: Female : 1990 Arrival Date: 10/26/2023 Time: 19:30 Bed 5 Private MD: Diagnosis: Dependence on renal dialysis;Essential (primary) hypertension;Hyperkalemia;Chronic combined systolic (congestive) and diastolic (congestive) heart failure;Anemia in chronic kidney disease;Anemia, unspecified Presentation: 10/25 19:34 Chief complaint: EMS states: hypertension since this morning, and retaining fluids, rv given Labetalol 20mg IV by EMS. denies chest pain. complaining of mild sob. Coronavirus screen: At this time, the client does not indicate any symptoms associated with coronavirus-19. Ebola Screen: No symptoms or risks identified at this time. Initial Sepsis Screen: Does the patient meet any 2 criteria? No. Patient's initial sepsis screen is negative. Does the patient have a suspected source of infection? No. Patient's initial sepsis screen is negative. Risk Assessment: Do you want to hurt yourself or someone else? Patient reports no desire to harm self or others. Onset of symptoms was October 26, 2023. 19:34 Method Of Arrival: EMS: [facility] rv 19:34 Acuity: VERNA 2 rv Triage Assessment: 19:35 General: Appears comfortable, Behavior is calm, cooperative. Pain: Complains of pain in rv right side, right flank. Neuro: Level of Consciousness is awake, alert, obeys commands, Oriented to person, place, time, situation. Cardiovascular: Capillary refill < 3 seconds Patient's skin is warm and dry. Respiratory: Airway is patent Respiratory effort is even, unlabored, Respiratory pattern is regular. GI: No signs and/or symptoms were reported involving the gastrointestinal system. : No signs and/or symptoms were reported regarding the genitourinary system. Derm: Skin. Historical: - Allergies: 19:35 Bactrim; rv - PMHx: 19:35 brain tumor-removed; Dialysis; End stage renal disease; Hypertension; Migraines; rv Seizures; - PSHx: 19:35 brain SX x 2; section; Fistula- L arm; kidney biopsy; kidney transplant; rv - Immunization history:: Adult Immunizations up to date. - Infectious Disease History:: Denies. - Social history:: Smoking status: Patient denies any tobacco usage or history of. - Family history:: not pertinent. Screenin:37 [facility] Fall Risk Assessment (Adult) History of falling in the last 3 months, rv including since admission No falls in past 3 months (0 pts) Score/Fall Risk Level 0 - 2 = Low Risk Oriented to surroundings, Maintained a safe environment, Educated pt \T\ family on fall prevention, incl call for assistance when getting out of bed, Assessed \T\ reinforced patient's understanding of fall precautions. Abuse screen: Denies threats or abuse. Denies injuries from another. Nutritional screening: No deficits noted. Tuberculosis screening: No symptoms or risk factors identified. Assessment: 19:39 General: Appears uncomfortable, Behavior is calm, cooperative. Pain: Complains of pain tm6 in right lower quadrant Pain does not radiate. Pain currently is 7 out of 10 on a pain scale. Quality of pain is described as tender. Neuro: Level of Consciousness is awake, alert, obeys commands, Oriented to person, place, time, situation. Cardiovascular: No deficits noted. Patient's skin is warm and dry. Respiratory: Airway is patent Respiratory effort is even, unlabored, Respiratory pattern is regular, symmetrical. GI: Abdomen is flat, non-distended, Abd is soft Abdomen is tender to palpation in right lower quadrant Reports lower abdominal pain. GI: Bowel sounds present X 4 quads. : No signs and/or symptoms were reported regarding the genitourinary system. EENT: No signs and/or symptoms were reported regarding the EENT system. Derm: No signs and/or symptoms reported regarding the dermatologic system. Musculoskeletal: No signs and/or symptoms reported regarding the musculoskeletal system. 20:40 Reassessment: Patient appears in no apparent distress at this time. tm6 Vital Signs: 19:34 BP 218 / 141; Pulse 91; Resp 18; Temp 98; Pulse Ox 100% ; Weight 62.6 kg; Height 5 ft. rv 4 in. ; 20:40 BP 202 / 139; Pulse 94; Pulse Ox 99% on R/A; tm6 21:27 BP 223 / 122; Pulse 96; Resp 22 S; Pulse Ox 97% on R/A; as6 21:38 BP 180 / 138; Pulse 91; Pulse Ox 96% on R/A; tm6 19:34 Body Mass Index 23.69 (62.60 kg, 162.56 cm) rv ED Course: 19:33 Patient arrived in ED. jj6 19:35 Triage completed. rv 19:35 Arm band placed on right wrist. rv 19:37 Javon Rodriguez MD is Attending Physician. trevor 19:37 Patient has correct armband on for positive identification. Client placed on continuous rv cardiac and pulse oximetry monitoring. NIBP monitoring applied. cafeteria monitor on. 19:37 No provider procedures requiring assistance completed. rv 19:39 Baljinder Quan, JERALD is Primary Nurse. tm6 19:39 Provided Education on: plan of care. Pulse ox on. NIBP on. Door closed. Noise tm6 minimized. Lights dimmed. Warm blanket given. 19:39 Maintain EMS IV. Dressing intact. Good blood return noted. Site clean \T\ dry. Gauge \T\ tm 6 site: 20g RAC. 20:21 XRAY Chest (1 view) In Process Unspecified. EDMS 20:44 Jw Mims is Hospitalizing Provider. trevor 21:03 Type And Screen Sent. tm6 22:34 Patient admitted, IV remains in place. rv Administered Medications: 20:12 Drug: Norvasc PO 10 mg PO once Route: PO; as6 22:39 Follow up: Response: No adverse reaction rv 20:12 Drug: hydrALAZINE IVP 20 mg IVP once Route: IVP; Site: right antecubital; as6 22:39 Follow up: Response: No adverse reaction rv 20:12 Drug: morphine IVP or IV 4 mg IVP once over 4 mins Route: IVP; Infused Over: 4 mins; as6 Site: right antecubital; 22:39 Follow up: Response: No adverse reaction rv 20:12 Drug: Ondansetron IVP 4 mg IVP once; over 2 minutes Route: IVP; Site: right antecubital;as6 22:38 Follow up: Response: No adverse reaction rv 20:39 Drug: Furosemide IVP 100 mg IVP once; give over 2 minutes Route: IVP; Site: right tm6 antecubital; 22:38 Follow up: Response: No adverse reaction rv 21:03 Drug: HydrALAZINE PO 100 mg PO once Route: PO; tm6 22:38 Follow up: Response: No adverse reaction rv 21:08 Drug: Promethazine IVP 12.5 mg IVP once Route: IVP; Site: right antecubital; as6 22:38 Follow up: Response: No adverse reaction rv Medication: 19:37 VIS not applicable for this client. rv Output: 21:08 Gastric: 300ml (Emesis); Total: 300ml. tm6 Outcome: 20:47 Decision to Hospitalize by Provider. trevor 22:34 Admitted to Med/surg accompanied by tech, via wheelchair, room 210, with chart, Report rv called to faxed and received 22:34 Condition: good 22:34 Instructed on the need for admit, 22:35 Patient left the ED. rv Signatures: Dispatcher [employer] EDJavon Guerra MD MD cha Vicente, Ronaldo, RN RN rv Angie Cortez Ashby, RN RN as6 Baljinder Quan RN RN tm6
--- NOTE | 2023-10-26 20:48 | EDPHYS ---
Physician Documentation [facility] Name: Shaun Lopez Age: 33 yrs Sex: Female : 1990 Arrival Date: 10/26/2023 Time: 19:30 Bed 5 Private MD: NICHELLE Physician Javon Rodriguez HPI: 10/25 19:53 This 33 yrs old Female presents to ER via EMS with complaints of Abdominal trevor Pain. 19:53 The patient presents with abdominal pain in the lower abdomen, abdominal distention in trevor the upper abdomen, in the lower abdomen. Onset: The symptoms/episode began/occurred 2 day(s) ago. hypertensive, esrd failed renal transplant, dialysis , , tue. The symptoms do not radiate. Onset: The symptoms/episode began/occurred 1 day(s) ago. Associated signs and symptoms: Pertinent positives: nausea, abdominal distention. Modifying factors: The symptoms are alleviated by nothing, the symptoms are aggravated by movement. Severity of pain: At its worst the pain was mild moderate in the emergency department the pain is unchanged. Severity of symptoms: At their worst the symptoms were mild moderate in the emergency department the symptoms are unchanged. Historical: - Allergies: 19:35 Bactrim; rv - PMHx: 19:35 brain tumor-removed; Dialysis; End stage renal disease; Hypertension; Migraines; rv Seizures; - PSHx: 19:35 brain SX x 2; section; Fistula- L arm; kidney biopsy; kidney transplant; rv - Immunization history:: Adult Immunizations up to date. - Infectious Disease History:: Denies. - Social history:: Smoking status: Patient denies any tobacco usage or history of. - Family history:: not pertinent. ROS: 19:53 Constitutional: Negative for fever, chills, and weight loss, Eyes: Negative for injury, trevor pain, redness, and discharge, ENT: Negative for injury, pain, and discharge, Neck: Negative for injury, pain, and swelling, Cardiovascular: Negative for chest pain, palpitations, and edema, Respiratory: Negative for shortness of breath, cough, wheezing, and pleuritic chest pain, Back: Negative for injury and pain, : Negative for injury, bleeding, discharge, and swelling, Skin: Negative for injury, rash, and discoloration, Neuro: Negative for headache, weakness, numbness, tingling, and seizure, Psych: Negative for depression, anxiety, suicide ideation, homicidal ideation, and hallucinations, Allergy/Immunology: Negative for hives, rash, and allergies, Endocrine: Negative for neck swelling, polydipsia, polyuria, polyphagia, and marked weight changes, Hematologic/Lymphatic: Negative for swollen nodes, abnormal bleeding, and unusual bruising, 19:53 Abdomen/GI: Positive for abdominal pain, abdominal distension, 19:53 MS/extremity: Positive for left upper av fistula, Exam: 19:53 Constitutional: This is a well developed, well nourished patient who is awake, alert, trevor and in no acute distress. Head/Face: Normocephalic, atraumatic. Eyes: Pupils equal round and reactive to light, extra-ocular motions intact. Lids and lashes normal. Conjunctiva and sclera are non-icteric and not injected. Cornea within normal limits. Periorbital areas with no swelling, redness, or edema. ENT: Nares patent. No nasal discharge, no septal abnormalities noted. Tympanic membranes are normal and external auditory canals are clear. Oropharynx with no redness, swelling, or masses, exudates, or evidence of obstruction, uvula midline. Mucous membranes moist. Neck: Trachea midline, no thyromegaly or masses palpated, and no cervical lymphadenopathy. Supple, full range of motion without nuchal rigidity, or vertebral point tenderness. No Meningismus. Chest/axilla: Normal chest wall appearance and motion. Nontender with no deformity. No lesions are appreciated. 20:07 ECG was reviewed by the Attending Physician. [facility] Vital Signs: 19:34 BP 218 / 141; Pulse 91; Resp 18; Temp 98; Pulse Ox 100% ; Weight 62.6 kg; Height 5 ft. rv 4 in. ; 20:40 BP 202 / 139; Pulse 94; Pulse Ox 99% on R/A; tm6 21:27 BP 223 / 122; Pulse 96; Resp 22 S; Pulse Ox 97% on R/A; as6 21:38 BP 180 / 138; Pulse 91; Pulse Ox 96% on R/A; tm6 19:34 Body Mass Index 23.69 (62.60 kg, 162.56 cm) rv MDM: 19:37 Patient medically screened. trevor 20:08 Differential Diagnosis altered mental status. Differential diagnosis: acute coronary trevor syndrome, Hepatitis, non-specific abd pain, pancreatitis, Peptic Ulcer Disease, Pyelonephritis, Ureterolithiasis, urinary tract infection. Data reviewed: vital signs, nurses notes, lab test result(s), EKG, radiologic studies, CT scan, plain films. Consideration of Admission/Observation Patient was admitted/placed on observation. Escalation of care including admission/observation considered. I considered the following discharge prescriptions or medication management in the emergency department Medications were administered in the Emergency Department. See MAR. Independent interpretation of the following test(s) in the Emergency Department EKG: See my EKG interpretation above. Test considered but Not performed: Ultrasound no abd usg. Care significantly affected by the following chronic conditions: Hypertension, Chronic Kidney Disease. 10/25 19:40 Order name: Basic Metabolic Panel; Complete Time: 20:40 [facility] 10/25 19:40 Order name: CBC with Diff; Complete Time: 20:40 10/25 19:40 Order name: LFT's; Complete Time: 20:40 10/25 19:40 Order name: Magnesium; Complete Time: 20:40 10/25 19:40 Order name: NT PRO-BNP; Complete Time: 20:40 10/25 19:40 Order name: PT-INR; Complete Time: 20:40 10/25 19:40 Order name: Troponin HS; Complete Time: 20:40 10/25 19:40 Order name: Urinalysis w/ reflexes [facility] 10/25 19:40 Order name: Lipase; Complete Time: 20:40 [facility] 10/25 19:40 Order name: PREGU [facility] 10/25 19:53 Order name: Valproic Acid (depakote) [facility] 10/25 20:41 Order name: Type And Screen [facility] 10/25 21:56 Order name: Urinalysis w/ reflexes [facility] 10/25 21:56 Order name: Basic Metabolic Panel [facility] 10/25 21:56 Order name: Basic Metabolic Panel [facility] 10/25 21:56 Order name: CBC with Automated Diff [facility] 10/25 21:56 Order name: CBC with Automated Diff [facility] 10/25 21:56 Order name: Magnesium EDMS 10/25 21:56 Order name: Magnesium EDMS 10/25 21:56 Order name: Phosphorus EDMS 10/25 21:56 Order name: Phosphorus [facility]DC 10/25 19:40 Order name: XRAY Chest (1 view) [facility] 10/25 19:52 Order name: CT Stone Protocol [facility] 10/25 21:50 Order name: CONS Physician Consult [facility]DC 10/25 19:40 Order name: Cardiac monitoring; Complete Time: 19:42 [facility] 10/25 19:40 Order name: EKG - Nurse/Tech; Complete Time: 19:56 [facility] 10/25 19:40 Order name: IV Saline Lock; Complete Time: 19:42 [facility] 10/25 19:40 Order name: Labs collected and sent; Complete Time: 19:57 [facility] 10/25 19:40 Order name: O2 Per Protocol; Complete Time: 19:42 [facility] 10/25 19:40 Order name: O2 Sat Monitoring; Complete Time: 19:42 [facility] EC:07 Rate is 82 beats/min. Rhythm is regular. QRS [place] is Normal. OH interval is normal. QRS trevor interval is normal. QT interval is normal. No Q waves. T waves are Normal. Clinical impression: NSR w/ Non-specific ST/T Changes and No evidence of ischemia. Interpreted by me. Reviewed by me. Administered Medications: 20:12 Drug: Norvasc PO 10 mg PO once Route: PO; as6 22:39 Follow up: Response: No adverse reaction rv 20:12 Drug: hydrALAZINE IVP 20 mg IVP once Route: IVP; Site: right antecubital; as6 22:39 Follow up: Response: No adverse reaction rv 20:12 Drug: morphine IVP or IV 4 mg IVP once over 4 mins Route: IVP; Infused Over: 4 mins; as6 Site: right antecubital; 22:39 Follow up: Response: No adverse reaction rv 20:12 Drug: Ondansetron IVP 4 mg IVP once; over 2 minutes Route: IVP; Site: right antecubital;as6 22:38 Follow up: Response: No adverse reaction rv 20:39 Drug: Furosemide IVP 100 mg IVP once; give over 2 minutes Route: IVP; Site: right tm6 antecubital; 22:38 Follow up: Response: No adverse reaction rv 21:03 Drug: HydrALAZINE PO 100 mg PO once Route: PO; tm6 22:38 Follow up: Response: No adverse reaction rv 21:08 Drug: Promethazine IVP 12.5 mg IVP once Route: IVP; Site: right antecubital; as6 22:38 Follow up: Response: No adverse reaction rv Disposition Summary: 10/26/23 20:47 Hospitalization Ordered Notes: Hospitalization Status: Observation trevor Provider: Jw Mims cha Location: Telemetry/MedSurg (observation) trevor Condition: Fair trevor Problem: new trevor Symptoms: have improved trevor Bed/Room Type: Standard trevor Room Assignment: 210(10/26/23 21:54) wm Diagnosis - Dependence on renal dialysis trevor - Essential (primary) hypertension trevor - Hyperkalemia trevor - Chronic combined systolic (congestive) and diastolic (congestive) heart failure trevor - Anemia in chronic kidney disease trevor - Anemia, unspecified trevor Forms: - Medication Reconciliation Form trevor - SBAR form trevor - Leadership Thank You Letter trevor Signatures: Dispatcher [employer] EDJavon Guerra MD MD cha Vicente, Ronaldo RN RN rv Tresa Hicks Ashby, RN RN as6 Baljinder Quan RN RN tm6 Corrections: (The following items were deleted from the chart) 19:40 19:40 BASIC METABOLIC PANEL+C.LAB.BRZ ordered. EDMS EDMS 19:40 19:40 CBC+H.LAB.BRZ ordered. EDMS EDMS 19:40 19:40 HEPATIC FUNCTION+C.LAB.BRZ ordered. EDMS EDMS 19:40 19:40 MAGNESIUM+C.LAB.BRZ ordered. EDMS EDMS 19:40 19:40 PROBNP+C.LAB.BRZ ordered. EDMS EDMS 19:40 19:40 PROTIME (+INR)+COAG.LAB.BRZ ordered. EDMS EDMS 19:40 19:40 Troponin High Sensitivity+C.LAB.BRZ ordered. EDMS EDMS 19:40 19:40 Urinalysis+U.LAB.BRZ ordered. EDMS EDMS 19:40 19:40 LIPASE+C.LAB.BRZ ordered. EDMS EDMS 19:40 19:40 Test, Urine+UC.LAB.BRZ ordered. EDMS EDMS 19:40 19:40 Chest Single View+RAD.RAD.BRZ ordered. EDMS EDMS 21:54 20:47 trevor wm
[2023-10-26] MEDS ORDERED: HYDRALAZINE HCL 25 MG TABLET ONE (20:51)
--- NOTE | 2023-10-26 20:59 | RAD REPORT ---
EXAM DESCRIPTION: RADChest Single View10/26/2023 8:19 pm CLINICAL HISTORY: COUGH COMPARISON: Chest Single View dated 10/04/2023; Chest Single View dated 05/18/2023; Chest Pa And Lat ( 2 Views) dated 02/15/2022; Chest Single View dated 05/29/2021 TECHNIQUE: Portable AP view of the chest. FINDINGS: The lungs show no focal consolidation. Mild central interstitial prominence. No pneumotho rax or effusion. The cardiomediastinal contours are unremarkable. IMPRESSION: Mild central interstitial prominence suggesting mild central congestion/CHF
[2023-10-26] MEDS ORDERED: PROMETHAZINE INJ 25 MG/ML AMP ONE (21:05)
--- NOTE | 2023-10-26 22:08 | P.HP ---
Certification for Inpatient Patient admitted to: Observation With expected LOS: <2 Midnights Practitioner: I am a practitioner with admitting privileges, knowledge of patient current condition, hospital course, and medical plan of care. Services: Services provided to patient in accordance with Admission requirements found in Title 42 Section 412.3 of the Code of Federal Regulations Patient History Date of Service: 10/26/23 Reason for admission: Abdominal pain, severe hypertension History of Present Illness: 33-year-old woman with a history of end-stage renal disease on hemodialysis, failed kidney transplant, discharged from hospital only 2 days ago presented to the emergency department with a complaint of abdominal pain. Patient reports she has experienced this abdominal pain for about 1 month. She was here 2 days ago with same complaint, patient was evaluated with a CT abdomen pelvis which was unremarkable. She was discharged same day. Patient returns to the ED with uncontrolled abdominal pain. Her blood pressure in the ED markedly elevated with systolic up to 226. Patient given IV hydralazine along with her oral antihypertensives. She reported vomiting the oral medications given in the ED. Workup in the ED also revealed hyperkalemia for which patient was given a dose of IV Lasix. Chest x-ray demonstrated vascular congestion. Patient reports shortness of breath. She she is on dialysis on Tuesdays and Saturdays and had dialysis yesterday. Patient is hospitalized for further management. Allergies No Known Allergies Allergy (Unverified 11/11/11 20:43) Home Medications: Clonidine Patch [Catapres-Tts 3*] 1 patch TOP DAILY 10/24/23 Divalproex Sodium 1 tab PO DAILY 10/24/23 Furosemide [Lasix*] 1 mg PO DAILY 10/24/23 Hydralazine HCl 1 tab PO BID 10/24/23 Lisinopril [Zestril] 1 tab PO DAILY 10/24/23 Losartan Potassium 1 tab PO DAILY 10/24/23 NIFEdipine [Nifedipine ER] 1 tab PO DAILY 10/24/23 - Past Medical/Surgical History Diabetic: No -: Hypertension -: End-stage renal disease on hemodialysis -: Seizures (as a child) -: Brain tumor -: Asthma Psychosocial/ Personal History: Lives at home - Family History Family History: Reviewed- Non-Contributory - Social History Alcohol use: No CD- Drugs: No Review of Systems Other: Patient denied any chest pain, she denied any diarrhea or constipation. Except as documented, all other systems reviewed and negative. Physical Examination - Physical Exam General: Alert, In no apparent distress, Oriented x3 HEENT: Atraumatic, Mucous membr. moist/pink Neck: Supple, JVD not distended Respiratory: Clear to auscultation bilaterally, Normal air movement Cardiovascular: No edema, Regular rate/rhythm, Normal S1 S2 Gastrointestinal: Normal bowel sounds, Soft and benign, Non-distended, Tenderness (Mild tenderness in the right lower quadrant.) Musculoskeletal: No swelling, No tenderness Integumentary: No rashes, No cyanosis Neurological: Normal speech, Normal strength at 5/5 x4 extr, Cranial nerves 3-12 intact Lymphatics: No axilla or inguinal lymphadenopathy - Studies Laboratory Data (last 24 hrs) 10/26/23 10/26/23 10/26/23 19:49 19:49 19:49 WBC 4.40 Hgb 7.6 L Hct 23.4 L Plt Count 149 L PT 14.2 H INR 1.30 Sodium 134 L Potassium 5.2 H BUN 46 H Creatinine 8.96 H Glucose 98 Magnesium 2.1 Total Bilirubin 0.7 AST 27 ALT 27 Alkaline Phosphatase 57 Lipase 13 Assessment and Plan - Problems (Diagnosis) (1) Hyperkalemia Current Visit: Yes Status: Acute (2) ESRD (end stage renal disease) Current Visit: No Status: Acute (3) Hypertensive urgency Current Visit: No Status: Acute (4) Intractable abdominal pain Current Visit: No Status: Acute - Plan Hyperkalemia/ESRD Patient with mild hyperkalemia She was given a dose of IV Lasix in the ED Admitted to the medical floor. Nephrology consult Routine hemodialysis tomorrow. Recheck renal function in a.m. Hypertensive urgency Resume home antihypertensives. Hydralazine IV as needed for BP spikes. Noted patient blood pressure fluctuated during the previous hospitalization, sometimes normotensive. Nephrology to follow for antihypertensive adjustments. Intractable abdominal Patient relates abdominal pain to her kidney transplant and states is the same location. Previous CT abdomen and pelvis has been unremarkable. Analgesics as needed Nephrology to follow. Check phosphate level. Antiemetics as needed. DVT prophylaxis: Heparin SQ - Advance Directives Does patient have a Living Will: No Does patient have a Durable POA for Healthcare: No
--- NOTE | 2023-10-26 22:55 | RAD REPORT ---
EXAM DESCRIPTION: CT - Stone Protocol - 10/26/2023 10:14 pm CLINICAL HISTORY: ABD PAIN COMPARISON: Abdomen Pelvis Wo Contrast dated 10/23/2023; Abdomen Pelvis Wo Contrast dated ; Abdomen Pelvis W Contrast dated 08/19/2023; Abdomen Pelvis Wo Contrast dated 06/08/2021; Chest S cathleen View dated 10/26/2023 TECHNIQUE: Thin cut axial CT imaging of the abdomen and pelvis was performed without IV contrast. Mu ltiplanar reformats were generated and reviewed. All CT scans are performed using dose optimization technique as appropriate and may include automated exposure control or mA/KV adjustment according to patient size. FINDINGS: Patchy central predominant ground-glass opacities in the dependent lower lungs are mildly progressive since the prior exam, suggesting central congestion or edema. Trace right pleural effusio n, stable. Mild cardiomegaly. The liver, adrenal glands, and pancreas show no suspicious findings. Borderline splenomegaly, stable, measuring 13.2 cm in long axis. Gallbladder and biliary tree are also without suspicious finding. Bilateral symmetric atrophy of the [place] kidneys, without suspicious parenchymal findings within odell its of noncontrast technique. Right pelvic renal transplant in place, with mild perinephric fat stran ding, stable. No evidence of radiopaque calculi or hydroureteronephrosis. No dilated bowel loops or bowel wall thickening. Mild free ascites and diffuse body wall edema, overa ll stable compared to the prior exam. No free air, localized collections, or inflammatory stranding. No hernia, mass or bulky lymphadenopathy. The urinary bladder is without significant finding. No suspicious bony findings. IMPRESSION: Mildly progressive central predominant patchy bibasilar ground-glass opacities cavernous suggestive of central congestion or edema. No other significant interval change. Mild free ascites and diffuse body wall edema suggesting fluid overload, stable.
[2023-10-26] MEDS: CLONIDINE 0.3 MG/PATCH TD SCH (23:36)
[2023-10-27] MEDS: HEPARIN 5000 UNIT/ML 1 ML VIAL SQ SCH (01:29)
[2023-10-27] MEDS: HYDRALAZINE HCL 20 MG/ML VIAL IV PRN (01:29)
[2023-10-27 03:08] LABS: Absolute Basophils 0.1 K/uL (0-0.5); Absolute Eosinophils 0.3 K/uL (0-0.5); Absolute Monocytes 0.5 K/uL (0.1-1.3); Basophils % 1.2 % (0-1.3); Eosinophils % 6.1 % (0-4.4); Hematocrit 24.7 % (36.0-45.0); Hemoglobin 8.1 g/dL (12.0-15.0); MCH 28.3 pg (27.0-35.0); MCHC 32.8 g/dL (32.0-36.0); MCV 86.4 fL (80-100); MPV 8.7 fL (7.6-11.3); Monocytes % 9.6 % (3.3-12.3); Neutrophils % 63.1 % (41.7-73.7); Nucleated Red Blood Cells % 0.3 % (0-0); Platelets 150 thou/uL (152-406); RBC Red Blood Cell Count 2.86 M/uL (3.86-4.86); Red Cell Distribution Width 17.9 % (12.1-15.2)
[2023-10-27 03:22] LABS: Anion Gap 13.6 mEq/L (5.0-15.0); Magnesium 2.1 mg/dL (1.6-2.4); Phosphorus 5.9 mg/dL (2.5-4.9); Potassium 5.6 mEq/L (3.5-5.1)
[2023-10-27 03:23] LABS: Specific Gravity 1.008 (1.005-1.030); Sqamous Epithelial <5 /HPF (None Seen); Urine Bacteria <20 /HPF (<20); Urine Bilirubin NEGATIVE (Negative); Urine Blood Trace (Negative); Urine Clarity Turbid (Clear); Urine Color Colorless (Yellow); Urine Culture Reflex Order NOT NEEDED; Urine Glucose NEGATIVE (Negative); Urine Ketones NEGATIVE (Negative); Urine Microscopic Reflex YN ORDER UMIC; Urine Mucus Slight /HPF (None Seen); Urine Nitrite NEGATIVE (Negative); Urine Protein 2+ (Negative); Urine Urobilinogen Normal (Normal); Urine pH 7.5 (5.0-7.0)
[2023-10-27 03:28] LABS: Specific Gravity 1.008 (1.005-1.030)
[2023-10-27] MEDS: LABETALOL 20 MG/4ML SYRINGE IV PRN ×2 (04:38→12:12)
[2023-10-27] MEDS: HYDRALAZINE HCL 20 MG/ML VIAL IV ONE (06:57)
[2023-10-27] MEDS ORDERED: HYDRALAZINE HCL 20 MG/ML VIAL IV PRN (07:21)
[2023-10-27] MEDS ORDERED: CLONIDINE 0.3 MG/PATCH TD SCH (09:00)
[2023-10-27] MEDS: DIVALPROEX DR 500MG TAB PO SCH (09:26)
[2023-10-27] MEDS: NIFEDIPINE XL 90 MG TABLET PO SCH (09:26)
[2023-10-27] MEDS: HYDRALAZINE HCL 25 MG TABLET PO SCH ×2 (09:26→14:00)
[2023-10-27] MEDS: ONDANSETRON 4 MG/2 ML VIAL IV PRN (09:26)
[2023-10-27] MEDS: LOSARTAN POTASSIUM 50 MG TABLET PO SCH (09:26)
[2023-10-27] MEDS: METOPROLOL XL 25 MG TAB PO SCH (09:27)
[2023-10-27] MEDS: HYDROCODONE/APAP 7.5/325 MG TAB PO PRN (09:31)
--- NOTE | 2023-10-27 11:14 | P.PN ---
Subjective Date of Service: 10/27/23 Chief Complaint: Abdominal pain, severe hypertension Pt is resting comfortably in bed. She complains of pain on the RLQ around where she had kidney transplant. Will give prn pain med and optimize BP regimen. Waiting for Nephrology eval for HD. No other complaints. Review of Systems General: Unremarkable Eyes: Unremarkable ENT: Unremarkable Respiratory: Unremarkable Cardiovascular: Unremarkable Gastrointestinal: Unremarkable Genitourinary: Unremarkable Musculoskeletal: Unremarkable Integumentary: Unremarkable Neurological: Unremarkable Lymphatics: Unremarkable Physical Examination - Vital Signs Temperature: 99.3 F Blood Pressure: 207/132 Pulse: 99 Respirations: 16 Pulse Ox (%): 96 - Physical Exam General: Alert, In no apparent distress, Oriented x3 HEENT: Atraumatic, Normocephalic, PERRLA Neck: Supple, 2+ carotid pulse no bruit Respiratory: Clear to auscultation bilaterally, Normal air movement Cardiovascular: No edema, Normal pulses, Regular rate/rhythm, Normal S1 S2 Capillary refill: <2 Seconds Gastrointestinal: Normal bowel sounds, Soft and benign, Non-distended, Tenderness Musculoskeletal: No clubbing, No swelling Integumentary: No rashes, No breakdown Neurological: Normal speech, Normal strength at 5/5 x4 extr, Normal tone Lymphatics: No axilla or inguinal lymphadenopathy - Studies Laboratory Data (last 24 hrs) 10/26/23 10/26/23 10/26/23 19:49 19:49 19:49 WBC 4.40 Hgb 7.6 L Hct 23.4 L Plt Count 149 L PT 14.2 H INR 1.30 Sodium 134 L Potassium 5.2 H BUN 46 H Creatinine 8.96 H Glucose 98 Magnesium 2.1 Total Bilirubin 0.7 AST 27 ALT 27 Alkaline Phosphatase 57 Lipase 13 Assessment And Plan - Plan ESRD on HD TTHSat: Consulted Nephrology for dialysis. Pt received lasix in the ER. Hyperkalemia: K is 5.6. Will improve with dialysis. Will monitor. Hypertensive urgency: uncontrolled. Resumed home meds with prn iv labetalol. Elevated BNP: Due to ERD. BNP is [id number]. Intractable abdominal: Pt complains of RLQ abd pain. It is located around where she had kidney transplant. CT abd is unremarkable. Will continue norco 7.5/325mg po Q6h prn. DVT ppx: Heparin SQ Dispo: Pending hospital course
[2023-10-27] MEDS: METOPROLOL XL 100 MG TAB PO SCH (13:00)
[2023-10-27] MEDS ORDERED: HYDRALAZINE HCL 25 MG TABLET PO SCH (14:00)
--- NOTE | 2023-10-27 19:04 | CON ---
Date of Consultation: 10/27/2023 Reason For Consultation: Elevated BUN and creatinine, hypertension, end-stage renal disease, over vo lume. 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 The patient was admitted to the hospital and started on dialysis back in 2020. The patient's workup did not confirm any HUS. 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 Ady's test at that time was within normal limit. H US was ruled out. The patient received kidney transplant. The patient developed rejection. At that time, the patient back on dialysis. A few months ago since back on dialysis, the patient had poor c ompliant with fluid restriction, poor tolerating for the dialysis. The patient came to the hospital complaining from abdominal distention. The patient was admitted recently to the hospital a few days back. At that time, workup including the CT abdomen was negative for any hydronephrosis. Her [place] kidney was atrophied. Her transplanted kidney normal with some stranding around it. No hydronephro sis. The patient continued to complain of abdominal pain with nausea and vomiting. Upon arrival to the hospital, the patient had high blood pressure, blood pressure above 200. For that reason, the silas fatou was admitted. The patient's last dialysis was Tuesday. In the hospital, the patient denied an y shortness of breath. Past Medical History: Include: 1.Hypertension. 2.End-stage renal disease secondary to hypertension, confirmed with biopsy. 3.Seizure. 4.Brain tumor, status post resection at age 12. 5.Bronchial asthma. Social History: Denied smoking. Denied drinking. Denied drug abuse. Family History: Positive for hypertension. Allergies: NO KNOWN DRUG ALLERGIES. Review of Systems: Head and Neck: Has headache. GI: Has nausea and vomiting. Has abdominal distention. : No polyuria. No dysuria. No hematuria. Quality Assurance Q[employer] Lab Analyst: No vaginal discharge. Respiratory: No shortness of breath. Cardiovascular: No chest pain. Endocrine: No polydipsia. Skin: No rash. Neuro: Has headache. Musculoskeletal: Generalized fatigue. Physical Examination: Vital Signs: Blood pressure 207/132, pulse of 99. Chest: Faint rales bilateral. Heart: S1, S2. Systolic murmur. Abdomen: Distended. No guarding. Tenderness on transplanted kidney. Extremities: +1 edema. Neurologic: Alert. No focality. Laboratory Data: Hemoglobin 8.1, WBC 4.8. Sodium 136, potassium 5.6, bicarb 25, BUN 50, creatinine 9.1, GFR of 5, phosphorus 5.9, magnesium 2.1, calcium 8.7. Current Medications: The patient on include hydralazine 100 t.i.d., labetalol, losartan 100, metopro lol 25, nifedipine 90, Zofran, hydrocodone. Assessment And Plan: 1.End-stage renal disease, over volume with elevated blood pressure. I am going to go ahead and arr karyn for daily dialysis to establish better volume control, and we will continue to challenge the pat ient. We will follow up blood pressure after dialysis. The patient is going to be dialyzed for 3.5 hours on 2 K bath. 2.Hyperkalemia. The patient is going to be dialyzed on low potassium bath. 3.Over volume. We will continue dialysis as above on a daily basis and we will challenge the patien t. 4.Hypertension, not controlled. The patient's full workup of secondary hypertension was done before and it was negative. The patient responds very well after challenging as outpatient with the presen ce of the abdominal pain, especially over the transplanted kidney. a.I am going to do daily dialysis to establish better volume control. b.I am going to repeat the hormonal workup. c.We will send for transplanted renal Doppler and we will see the resistive index if it is above 1.7 5. At that time, the suspicious of renal artery stenosis will be higher. We may consider an angiogr am and we will follow up. 5.Gastroenteritis, possible symptomatic secondary to hypertension as above. 6.Urgent hypertension. After dialysis if the blood pressure continued to be high, the patient may n eed to be initiated on a drip. We will discuss with hospitalist. EDD Voice ID: [id number] Report ID: [id number]
[2023-10-27] MEDS: Nicardipine/NS 25 MG/250 ML KIT IV SCH (21:20)
[2023-10-28] MEDS ORDERED: NICARDIPINE HCL 25 MG/10 ML IV ONE (01:30)
[2023-10-28 05:05] LABS: Absolute Basophils 0.1 K/uL (0-0.5); Absolute Eosinophils 0.4 K/uL (0-0.5); Absolute Lymphocytes (CBC) 0.7 K/uL (0.7-4.9); Absolute Monocytes 0.6 K/uL (0.1-1.3); Absolute Neutrophil 4.3 K/uL (1.8-8.0); Basophils % 1.3 % (0-1.3); Eosinophils % 7.4 % (0-4.4); Hematocrit 25.3 % (36.0-45.0); Hemoglobin 8.4 g/dL (12.0-15.0); Lymphocytes % 11.6 % (15.3-44.8); MCH 28.4 pg (27.0-35.0); MCHC 33.1 g/dL (32.0-36.0); MCV 85.8 fL (80-100); MPV 7.8 fL (7.6-11.3); Monocytes % 9.2 % (3.3-12.3); Neutrophils % 70.5 % (41.7-73.7); Nucleated Red Blood Cells % 0.2 % (0-0); Platelets 195 thou/uL (152-406); RBC Red Blood Cell Count 2.95 M/uL (3.86-4.86); Red Cell Distribution Width 17.8 % (12.1-15.2)
[2023-10-28 05:08] VITALS: BMI 25.4
[2023-10-28 05:33] LABS: Anion Gap 10.3 mEq/L (5.0-15.0); Potassium 4.3 mEq/L (3.5-5.1)
--- NOTE | 2023-10-28 10:08 | P.PN ---
Subjective Date of Service: 10/28/23 Chief Complaint: Abdominal pain, severe hypertension Pt is resting comfortably in bed. She is feeling better. The RLQ abd pain is better. BP has improved with cardene drip. Will wean as tolerated. Will give prn pain med and optimize BP regimen. Pt had dialysis yesterday. No other com plaints. Review of Systems General: Unremarkable Eyes: Unremarkable ENT: Unremarkable Respiratory: Unremarkable Cardiovascular: Unremarkable Gastrointestinal: Unremarkable Genitourinary: Unremarkable Musculoskeletal: Unremarkable Integumentary: Unremarkable Neurological: Unremarkable Lymphatics: Unremarkable Physical Examination - Vital Signs Temperature: 98.9 F Blood Pressure: 132/82 Pulse: 89 Respirations: 19 Pulse Ox (%): 92 - Physical Exam General: Alert, In no apparent distress, Oriented x3 HEENT: Normocephalic, PERRLA Neck: Supple, 2+ carotid pulse no bruit, JVD not distended Respiratory: Clear to auscultation bilaterally, Normal air movement Cardiovascular: No edema, Normal pulses, Regular rate/rhythm, Normal S1 S2 Capillary refill: <2 Seconds Gastrointestinal: Normal bowel sounds, Soft and benign, Non-distended Musculoskeletal: No clubbing Integumentary: No rashes, No breakdown Neurological: Normal speech, Normal strength at 5/5 x4 extr, Sensation intact - Studies Laboratory Data (last 24 hrs) 10/28/23 10/28/23 04:41 04:41 WBC 6.00 Hgb 8.4 L Hct 25.3 L Plt Count 195 D Sodium 135 L Potassium 4.3 D BUN 24 H Creatinine 6.18 H Glucose 107 H Assessment And Plan - Plan ESRD on HD TTHSat: Consulted Nephrology for dialysis. Pt received lasix in the ER. Hyperkalemia: K is 4.3<- 5.6. Will improve with dialysis. Will monitor. Hypertensive urgency: Controlled with cardene drip. Will resume home meds. Will f/u renal ultrasound to r/o renal artery stenosis Elevated BNP: Due to ERD. BNP is 802199. Anemia of chronic disease: hgb is 8.4. Will monitor H/H. Intractable abdominal: Pt complains of RLQ abd pain. It is located around where she had kidney transplant. CT abd is unremarkable. Will continue norco 7.5/325mg po Q6h prn. DVT ppx: Heparin SQ Dispo: Pending hospital course
[2023-10-28 12:23] VITALS: TEMP 98.6
--- NOTE | 2023-10-28 14:56 | P.PN ---
Subjective Date of Service: 10/28/23 Chief Complaint: Abdominal pain, severe hypertension Physical Examination - Vital Signs Temperature: 98.6 F Blood Pressure: 120/72 Pulse: 88 Respirations: 16 Pulse Ox (%): 96 - Studies Laboratory Data (last 24 hrs) 10/28/23 10/28/23 04:41 04:41 WBC 6.00 Hgb 8.4 L Hct 25.3 L Plt Count 195 D Sodium 135 L Potassium 4.3 D BUN 24 H Creatinine 6.18 H Glucose 107 H
--- NOTE | 2023-10-28 16:14 | P.DS ---
Admission Date: 10/28/23 Discharge Date: 10/28/23 Disposition: ROUTINE DISCHARGE Discharge Condition: GOOD Reason for Admission: Abdominal pain, severe hypertension Brief History of Present Illness: 33-year-old woman with a history of end-stage renal disease on hemodialysis, failed kidney transplant, discharged from hospital only 2 days ago presented to the emergency department with a complaint of abdominal pain. Patient reports s he has experienced this abdominal pain for about 1 month. She was here 2 days ago with same complaint, patient was evaluated with a CT abdomen pelvis which was unremarkable. She was discharged same day. Patient returns to the ED with uncontrolled abdominal pain. Her blood pressure in the ED markedly elevated with systolic up to 226. Patient given IV hydralazine along with her oral antihypertensives. She reported vomiting the oral medications given in the ED. Workup in the ED also revealed hyperkalemia for which patient was given a dose of IV Lasix. Chest x-ray demonstrated vascular congestion. Patient reports shortness of breath. She she is on dialysis on Tuesdays and Saturdays and had dialysis yesterday. Patient is hospitalized for further management. Hospital Course: Pt is a 33yo female with past medial history of end-stage renal disease on hemodialysis, failed kidney transplant who was discharged from hospital 2 days abefore this admission and she presented to the emergency department with a complaint of abdominal pain. Patient reported the abdominal pain started about [address] abd was unremarkable. The RLQ abdominal pain was in the area of her recent kidney transplant ( Jun, 2022). On admission, her BP was elevated. We admitted pt for ESRD and Hypertensive urgency. Her BP did not improve with dialysis and oral home meds. We transferred pt to the ICU for cardene drip. Hyperkalemia improved with dialysis. We controlled abdominal pain with prn norco. The hypertensive urgency resolved with cardene drip. Pt was successfully weaned off cardene drip and we optimized home BP meds by adding metoprolol XL 100mg po daily. She requested to be discharged due to upcoming family event tomorrow. She was advised to continue dialysis on outpt tomorrow. Pt was in NAD prior to discharge. Vital Signs/Physical Exam: Temp Pulse Resp BP Pulse Ox 98.6 F 80 16 121/72 94 10/28/23 14:56 10/28/23 15:00 10/28/23 15:00 10/28/23 15:00 10/28/23 15:00 Laboratory Data at Discharge: WBC 6.00 thou/uL (4.3-10.9) 10/28/23 04:41 Hgb 8.4 g/dL (12.0-15.0) L 10/28/23 04:41 Hct 25.3 % (36.0-45.0) L 10/28/23 04:41 Plt Count 195 thou/uL (152-406) D 10/28/23 04:41 PT 14.2 SECONDS (9.5-12.5) H 10/26/23 19:49 INR 1.30 10/26/23 19:49 Sodium 135 mEq/L (136-145) L 10/28/23 04:41 Potassium 4.3 mEq/L (3.5-5.1) D 10/28/23 04:41 BUN 24 mg/dL (7-18) H 10/28/23 04:41 Creatinine 6.18 mg/dL (0.55-1.02) H 10/28/23 04:41 Glucose 107 mg/dL (74-106) H 10/28/23 04:41 Phosphorus 5.9 mg/dL (2.5-4.9) H 10/27/23 02:30 Magnesium 2.1 mg/dL (1.6-2.4) 10/27/23 02:30 Total Bilirubin 0.7 mg/dL (0.2-1.0) 10/26/23 19:49 AST 27 U/L (15-37) 10/26/23 19:49 ALT 27 U/L (13-56) 10/26/23 19:49 Alkaline Phosphatase 57 U/L (45-117) 10/26/23 19:49 Lipase 13 U/L (13-75) 10/26/23 19:49 Home Medications: Clonidine Patch [Catapres-Tts 3*] 1 patch TOP Q7D 10/24/23 Divalproex Sodium 1 tab PO DAILY 10/24/23 Furosemide [Lasix*] 1 mg PO DAILY 10/24/23 Hydralazine HCl 1 tab PO BID 10/24/23 Lisinopril [Zestril] 1 tab PO DAILY 10/24/23 Losartan Potassium 1 tab PO DAILY 10/24/23 NIFEdipine [Nifedipine ER] 1 tab PO DAILY 10/24/23 Hydrocodone 7.5/APAP 325 [Ambler 7.5/325 mg*] 1 tab PO Q4H PRN 3 Days #18 tab 10/28/23 Metoprolol Succinate [Toprol Xl*] 100 mg PO DAILY 30 Days #30 tab 10/28/23 New Medications: Hydrocodone 7.5/APAP 325 [Ambler 7.5/325 mg*] 1 tab PO Q4H PRN 3 Days #18 tab PRN Reason: Pain Scale 5-7 (Moderate) Metoprolol Succinate [Toprol Xl*] 100 mg PO DAILY 30 Days #30 tab Physician Discharge Instructions: continue ad jose luis activity. Take BP home meds as prescribed. Continue outpt dialysis. Follow up with PCP and Nephrology within 2 weeks Diet: Renal Activity: Ad jose luis Followup: NONE,NONE [Primary Care Provider] -
[2023-10-28 17:31] VITALS: O2SAT 100
[2023-10-28 18:04] VITALS: BP 128/84
--- NOTE | 2023-10-29 05:45 | PN ---
Date of Progress Note: 10/28/2023 Subjective: No overnight events. Stable vital signs. Blood pressure is controlled. Dialysis tomor row. Objective: Vital Signs: Temperature 98.6, pulse rate 88, blood pressure . General: Awake, alert, and oriented x3, not in distress. Neck: Supple. No elevated JVD. Heart: Regular rate and rhythm. Normal S1, S2. Chest: Clear to auscultation bilaterally. No rales or wheezes. Abdomen: Soft, nontender. Extremities: No edema. Laboratory Data: White count of 6, hemoglobin 8.4, platelets 195. Sodium 135, potassium 4.3, BUN 24 , creatinine 6.1 Assessment And Plan: 1.End-stage renal disease, continue dialysis Tuesday, , Tuesday. Renal diet, renal dose me dication. 2.Hypertension emergency. Blood pressure is currently controlled. Continue current medication ____ . Dialysis tomorrow with her blood pressure. 3.Hyperkalemia, resolved. Continue dialysis. Low K diet. 4.Anemia of chronic disease. We will resume Epogen as a blood pressure starts to control. Thank you for allowing me to participate in patient care. Total time spent 55 minutes including docu mentation, reviewing labs, and discussing with the patient and the medical staff. The patient can be discharged tomorrow from Nephrology point of view. CLEO/MESSI Voice ID: [id number] Report ID: [id number]
[2023-10-29] MEDS ORDERED: EPOETIN ALFA 10,000 UNIT/ML VIAL SQ SCH (10:00)
--- NOTE | 2023-10-31 13:13 | EKG ---
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
[2023-11-01 12:34] LABS: PRA,LC/MS/MS 1.51 ng/mL/h (0.25-5.82)
== END 2023-10-28 17:58 | disposition home or self-care (01) | DRG 698 ==
LOC: ER 19:30 → ERHOLD 21:56 → 2ND 22:35 → 3RD-ICU 10-27 22:50 → OBSVTOIN 10-28 09:32
PROVIDERS: ADMIT Internal Medicine; ATTEND Hospitalist
PROC: 5A1D70Z Performance of Urinary Filtration, Intermittent, Less than 6 Hours Per Day (ICD-10-PCS; principal; 2023-10-27)
DX: T86.19 Other complication of kidney transplant (principal); N18.6 End stage renal disease; I12.0 Hypertensive chronic kidney disease with stage 5 chronic kidney disease or end stage renal disease; I16.1 Hypertensive emergency; E87.5 Hyperkalemia; D63.1 Anemia in chronic kidney disease; K52.9 Noninfective gastroenteritis and colitis, unspecified; Z94.0 Kidney transplant status; Z99.2 Dependence on renal dialysis; Z88.1 Allergy status to other antibiotic agents; Z79.899 Other long term (current) drug therapy
CPT/HCPCS: 36415; 71045; 74176; 76377; 80048; 80076; 80164; 81001; 81025; 82088; 82533; 83690; 83735; 83880; 84100; 84244; 84484; 85025; 85610; 86850; 86870; 86880; 86900; 86901; 86902; 86905; 90935; 93005; 93975; 94760; 96374; 96375; 99285; G0378; J0360; J1644; J1940; J2405; J2550

== ENCOUNTER 2023-12-26 20:16 | Emergency (ER) | payer OTHER ==
[2023-12-26] MEDS ORDERED: CEFTRIAXONE 1000 MG/VIAL ONE (21:17)
[2023-12-26] MEDS ORDERED: ONDANSETRON 4 MG/2 ML VIAL ONE (21:18)
[2023-12-26] MEDS ORDERED: ACETAMINOPHEN 500 MG TAB ONE (21:18)
[2023-12-26] MEDS ORDERED: MORPHINE 4 MG/ML SYR ONE ×2 (21:18→23:07)
[2023-12-26 21:37] LABS: Absolute Basophils 0.1 K/uL (0-0.5); Absolute Eosinophils 0.2 K/uL (0-0.5); Absolute Lymphocytes (CBC) 1.1 K/uL (0.7-4.9); Absolute Monocytes 0.6 K/uL (0.1-1.3); Basophils % 0.9 % (0-1.3); Eosinophils % 2.2 % (0-4.4); Hematocrit 26.4 % (36.0-45.0); Hemoglobin 8.6 g/dL (12.0-15.0); Lymphocytes % 16.1 % (15.3-44.8); MCHC 32.7 g/dL (32.0-36.0); MCV 88.6 fL (80-100); MPV 8.3 fL (7.6-11.3); Monocytes % 8.8 % (3.3-12.3); Platelets 169 thou/uL (152-406); RBC Red Blood Cell Count 2.98 M/uL (3.86-4.86); Red Cell Distribution Width 18.1 % (12.1-15.2)
[2023-12-26 21:43] LABS: Anion Gap 12.7 mEq/L (5.0-15.0); Potassium 4.7 mEq/L (3.5-5.1); Troponin High Sensitivity 34.3 pg/mL (<58.9)
--- NOTE | 2023-12-26 22:29 | RAD REPORT ---
EXAM DESCRIPTION: Sajan Single View12/26/2023 9:05 pm CLINICAL HISTORY: Abdominal pain COMPARISON: October 2023 FINDINGS: Mild bilateral pulmonary opacities. The heart is moderately enlarged IMPRESSION: Mild bilateral pulmonary opacities probably interstitial pulmonary edema
--- NOTE | 2023-12-26 22:42 | RAD REPORT ---
EXAM DESCRIPTION: CT - Abdomen Pelvis Wo Contrast - 12/26/2023 10:20 pm CLINICAL HISTORY: Abdominal pain COMPARISON: October 2023 TECHNIQUE: Computed axial tomography of the abdomen and pelvis was obtained. IV and oral contrast we re not requested. All CT scans are performed using dose optimization technique as appropriate and may include automated exposure control or mA/KV adjustment according to patient size. FINDINGS: The evaluation of solid organs, vessels and bowel is limited secondary to the lack of con trast administration. Mild bilateral pulmonary opacities. Heart is moderately enlarged. Trace pericardial effusion. Liver is upper limits normal size. Spleen 13 centimeters. Atrophic kidneys. Transplant kidney right upper pelvis appears edematous without change. No hydroneph rosis. Rectal wall thickening. No evidence of diverticulitis. No adnexal mass. Diffuse edema within subcutaneous tissues. Presacral edema. Small right pleural effusion . IMPRESSION: Mild bilateral pulmonary opacities probably interstitial pulmonary edema Mild splenomegaly Edematous transplant kidney without significant change from prior exam. No hydronephrosis is seen
--- NOTE | 2023-12-26 23:00 | EDPHYS ---
Physician Documentation [facility] Name: Shaun Lopez Age: 33 yrs Sex: Female : 1990 Arrival Date: 12/26/2023 Time: 20:16 Bed 17 Private MD: ED Physician Carlitos Ruiz HPI: 12/25 20:45 This 33 yrs old Female presents to ER via Ambulatory with complaints of ec2 Abdominal Pain, SHINGLES PAIN. 20:45 Patient arrives today for evaluation of abdominal pain. Patient states that she was ec2 diagnosed with shingles recently, has been treated, is having postherpetic neuralgia. Patient's pain is located along the right abdomen and flank. No fevers, is having some nausea. Patient reports she is dialysis dependent, last underwent dialysis 2 days ago. Patient reports that she makes minimal amounts of urine.. PRIMARY CARE MD: 20:29 LMP 12/07/2023, unknown bm8 Historical: - Allergies: 20:29 Adhesives; bm8 20:29 AVOCADO (LAURUS PERSEA); bm8 20:29 Bactrim; bm8 - Home Meds: 20:29 calcitriol 0.25 mcg Oral cap 1 cap [Active]; carvedilol 25 mg Oral tablet 2 times per bm8 day [Active]; clonidine HCl 0.1 mg Oral tab 1 tab every 6 hours [Active]; dapsone 100 mg Oral tablet 1 tab [Active]; dicyclomine 20 mg Oral tablet [Active]; docusate sodium 100 mg Oral cap 1 cap 2 times per day [Active]; losartan potassium 50 mg 1 tab daily [Active]; metoprolol tartrate 100 mg Oral tablet 1 tab [Active]; mycophenolate mofetil 250 mg Oral capsule 3 caps [Active]; nifedipine 60 mg Oral TbER 1 tab twice daily [Active]; spironolactone 25 mg Oral tablet 1 tab [Active]; - PMHx: 20:29 brain tumor-removed; Dialysis; End stage renal disease; Hypertension; Migraines; bm8 Seizures; - PSHx: 20:29 brain SX x 2; section; donor kidney removed (t); Fistula- L arm; kidney bm8 biopsy; kidney transplant; - Immunization history:: Adult Immunizations up to date. - Infectious Disease History:: Denies. - Social history:: Smoking status: Patient denies any tobacco usage or history of. ROS: 20:45 Constitutional: as per hpi ec2 Exam: 20:45 Constitutional: GEN: NAD Head: atraumatic Eyes: EOMI Ears: External ears are ec2 normal. CV: regular rate LUNGS: no respiratory distress ABD: non-distended SKIN: Well-healing crusted lesions on the right abdomen and flank, no significant overlying erythema, no significant warmth appreciated. MSK: no evidence of trauma NEURO: moves all extremities equally Vital Signs: 20:27 BP 227 / 148; Pulse 113; Resp 20; Temp 99.6; Pulse Ox 100% on R/A; Weight 58.06 kg; bm8 Height 5 ft. 1 in. ; Pain 10/10; 21:00 BP 213 / 134; Pulse 102; Resp 19; Pulse Ox 100% on R/A; me1 22:00 BP 196 / 138; Pulse 103; Resp 19; Pulse Ox 98% on R/A; me1 22:09 BP 196 / 138; Pulse 105; ec2 23:00 BP 180 / 123; Pulse 92; Resp 13; Pulse Ox 96% on R/A; me1 23:15 BP 198 / 151; Pulse 96; Resp 18; Pulse Ox 95% on R/A; me1 20:27 Body Mass Index 24.19 (58.06 kg, 154.94 cm) bm8 20:27 Pain Scale: Adult bm8 23:00 Dr Ruiz aware of BP. Patient instructed to take her routine evening bp meds when she me1 gets home, verbalized understanding. MDM: 20:32 Patient medically screened. ec2 20:46 Data reviewed: vital signs. ED course: Patient arrives today for evaluation of pain to ec2 the right abdomen and flank. Examination remarkable for skin findings as noted above. Will obtain lab work, CT of the abdomen pelvis, treat the patient's pain and reassess. Differential diagnosis include postherpetic neuralgia, superimposed bacterial infection on her recent shingles site, intra-abdominal infection.. 22:08 ED course: EKG independently reviewed and interpreted by me, shows sinus tachycardia, ec2 rate of 101, no acute ST segment elevations, nonspecific T wave abnormalities in the lateral leads noted.. 22:09 ED course: Metabolic profile with expected renal dysfunction noted. CBC shows anemia ec2 with a hemoglobin of 8.6. Troponin is within normal ranges, lactate within normal ranges as well. . 22:49 ED course: Chest x-ray shows bilateral pulmonary opacities consistent with pulmonary ec2 edema, consistent with patient's known kidney disease. CT of the abdomen pelvis shows no acute process. . 22:58 ED course: On reassessment patient reports some improvement in her pain. Ultimately I ec2 suspect patient is having postherpetic neuralgia causing her side pain. No evidence of infection either on CT imaging or visually does not appear cellulitic. I will start the patient on Zostrix, Tylenol 3 and have the patient follow-up with her primary care doctor. Patient also already on gabapentin, instructed her to follow-up with PCP to increase her dosage.. 12/25 20:44 Order name: Basic Metabolic Panel; Complete Time: 22:08 ec2 12/25 20:44 Order name: CBC with Diff; Complete Time: 22:08 ec2 12/25 20:44 Order name: Troponin HS; Complete Time: 22:08 ec2 12/25 20:44 Order name: Blood Culture Adult (2) ec2 12/25 20:44 Order name: Lactate w/ 2H reflex if indic.; Complete Time: 22:08 ec2 12/25 20:44 Order name: XRAY Chest (1 view); Complete Time: 22:48 ec2 12/25 20:44 Order name: CT Abd/Pelvis - Without Contrast; Complete Time: 22:48 ec2 12/25 20:44 Order name: Cardiac monitoring; Complete Time: 22:08 ec2 12/25 20:44 Order name: EKG - Nurse/Tech; Complete Time: 22:08 ec2 12/25 20:44 Order name: IV Saline Lock; Complete Time: 21:15 ec2 12/25 20:44 Order name: Labs collected and sent; Complete Time: 21:15 ec2 12/25 20:44 Order name: O2 Per Protocol; Complete Time: 21:15 ec2 12/25 20:44 Order name: O2 Sat Monitoring; Complete Time: 21:15 ec2 Administered Medications: 21:26 Drug: Acetaminophen PO 1000 mg PO once Route: PO; me1 22:07 Follow up: Response: No adverse reaction me1 21:27 Drug: morphine IVP or IV 4 mg IVP once over 4 mins Route: IVP; Infused Over: 4 mins; me1 Site: right antecubital; 22:08 Follow up: Response: No adverse reaction; Pain is decreased me1 21:27 Drug: Ondansetron IVP 4 mg IVP once; over 2 minutes Route: IVP; Site: right antecubital;me1 22:07 Follow up: Response: No adverse reaction; Nausea is decreased me1 21:46 Drug: Rocephin IV 1 grams IV at calculated rate once; Given slow IV push per pharmacy me1 instructions Route: IV; Rate: calculated rate; Site: right antecubital; 22:08 Follow up: Response: No adverse reaction; IV Status: Completed infusion me1 23:10 Drug: morphine IVP or IV 4 mg IVP once over 4 mins Route: IVP; Infused Over: 4 mins; me1 Site: right antecubital; 23:17 Follow up: Response: No adverse reaction; Pain is decreased me1 Disposition Summary: 12/26/23 23:00 Discharge Ordered Notes: Location: Home ec2 Condition: Stable ec2 Diagnosis - Postherpetic polyneuropathy ec2 Followup: ec2 - With: Private Physician - When: - Reason: Re-evaluation by your physician Discharge Instructions: - Discharge Summary Sheet ec2 - Postherpetic Neuralgia ec2 Forms: - Medication Reconciliation Form ec2 - Antibiotic Education ec2 - Prescription Opioid Use ec2 - Patient Portal Instructions ec2 - Leadership Thank You Letter ec2 Prescriptions: - acetaminophen-codeine 300-15 mg Oral tablet - take 1 tablet ORAL route every 4 hours as needed for pain; 15 tablet; Refills: ec2 0, Product Selection Permitted - capsaicin 0.075 % Topical cream - apply 1 application TOPICAL route 4 times per day do not wash area for at least ec2 30 min after application; 1 unit; Refills: 0, Product Selection Permitted Signatures: Dispatcher [employer] Bianca Jaeger, RN RN me1 Carlitos Ruiz MD MD ec2 Gaurav Lopez RN RN bm8 Corrections: (The following items were deleted from the chart) 20:32 20:29 PMHx: "kidney issues"; bm8 bm8 20:45 20:45 BASIC METABOLIC PANEL+C.LAB.BRZ ordered. EDMS EDMS 20:45 20:45 CBC+H.LAB.BRZ ordered. EDMS EDMS 20:45 20:45 Troponin High Sensitivity+C.LAB.BRZ ordered. EDMS EDMS 20:45 20:45 Chest Single View+RAD.RAD.BRZ ordered. EDMS EDMS 20:45 20:45 Abdomen Pelvis Wo Con+CT.RAD.BRZ ordered. EDMS EDMS 20:45 20:45 BLOOD CULTURE*+BA.LAB.BRZ ordered. EDMS EDMS 20:45 20:45 LACTATE+C.LAB.BRZ ordered. EDMS EDMS 22:59 22:58 ED course: On reassessment patient reports some improvement in her pain. ec2 Ultimately I suspect patient is having postherpetic neuralgia causing her side pain. No evidence of infection. ec2
--- NOTE | 2023-12-26 23:00 | ER ---
Nurse's Notes [facility] Name: Shaun Lopez Age: 33 yrs Sex: Female : 1990 Arrival Date: 12/26/2023 Time: 20:16 Bed 17 Private MD: Diagnosis: Postherpetic polyneuropathy Presentation: 12/25 20:27 Chief complaint: Patient states: I had shingles three weeks ago. and the pain across my bm8 abd is unbearable. Coronavirus screen: At this time, the client does not indicate any symptoms associated with coronavirus-19. Ebola Screen: Patient negative for fever greater than or equal to 101.5 degrees Fahrenheit, and additional compatible Ebola Virus Disease symptoms Patient denies exposure to infectious person. Patient denies travel to an Ebola-affected area in the 21 days before illness onset. No symptoms or risks identified at this time. Initial Sepsis Screen: Does the patient meet any 2 criteria? RR > 20 per min. Systolic BP < 90 mmHg. Mean Arterial Pressure (MAP) < 65. HR > 90 bpm. Yes Does the patient have a suspected source of infection? No. Patient's initial sepsis screen is negative. Risk Assessment: Do you want to hurt yourself or someone else? Patient reports no desire to harm self or others. Onset of symptoms was December 12, 2023 at 08:00. 20:27 Method Of Arrival: Ambulatory 8 20:27 Acuity: VERNA 2 8 Triage Assessment: 20:29 General: Appears distressed, uncomfortable, Behavior is cooperative, appropriate for 8 age. Pain: Complains of pain in back and abdomen. EENT: No deficits noted. Neuro: No deficits noted. Level of Consciousness is awake, alert, obeys commands, Oriented to person, place, time, situation. Cardiovascular: Reports high blood pressure Capillary refill < 3 seconds Patient's skin is warm and dry. Respiratory: Airway is patent Trachea midline Respiratory effort is even, unlabored, Respiratory pattern is regular, symmetrical. GI: No deficits noted. No signs and/or symptoms were reported involving the gastrointestinal system. Derm: Rash noted that is shingles across abd and back. 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, unknown bm8 Historical: - Allergies: 20:29 Adhesives; bm8 20:29 AVOCADO (WOO MINAEA); bm8 20:29 Bactrim; bm8 - Home Meds: 20:29 calcitriol 0.25 mcg Oral cap 1 cap [Active]; carvedilol 25 mg Oral tablet 2 times per bm8 day [Active]; clonidine HCl 0.1 mg Oral tab 1 tab every 6 hours [Active]; dapsone 100 mg Oral tablet 1 tab [Active]; dicyclomine 20 mg Oral tablet [Active]; docusate sodium 100 mg Oral cap 1 cap 2 times per day [Active]; losartan potassium 50 mg 1 tab daily [Active]; metoprolol tartrate 100 mg Oral tablet 1 tab [Active]; mycophenolate mofetil 250 mg Oral capsule 3 caps [Active]; nifedipine 60 mg Oral TbER 1 tab twice daily [Active]; spironolactone 25 mg Oral tablet 1 tab [Active]; - PMHx: 20:29 brain tumor-removed; Dialysis; End stage renal disease; Hypertension; Migraines; bm8 Seizures; - PSHx: 20:29 brain SX x 2; section; donor kidney removed (t); Fistula- L arm; kidney bm8 biopsy; kidney transplant; - Immunization history:: Adult Immunizations up to date. - Infectious Disease History:: Denies. - Social history:: Smoking status: Patient denies any tobacco usage or history of. Screenin:45 [facility] ED Fall Risk Assessment (Adult) History of falling in the last 3 months, me1 including since admission No falls in past 3 months (0 pts) Confusion or Disorientation No (0 pts) Intoxicated or Sedated No (0 pts) Impaired Gait No (0 pts) Mobility Assist Device Used No (0 pt) Altered Elimination No (0 pt) Score/Fall Risk Level 0 - 2 = Low Risk Maintained a safe environment, Provided non-skid footwear, Hourly rounding (assess needs \\T\\ fall precautionary measures) done. Abuse screen: Denies threats or abuse. Nutritional screening: No deficits noted. Tuberculosis screening: No symptoms or risk factors identified. Assessment: 20:45 General: Appears uncomfortable, well groomed, well developed, well nourished, Behavior me1 is calm, cooperative, appropriate for age, Reports I had shingles three weeks ago. and the pain across my abd is unbearable. Pain: Complains of pain in abdomen and back Pain does not radiate. Pain currently is 10 out of 10 on a pain scale. Quality of pain is described as sharp, stinging, Pain began gradually, 2-3 days ago. Is continuous. Neuro: Level of Consciousness is awake, alert, obeys commands, Oriented to person, place, time, situation, Appropriate for age Cardiovascular: Patient's skin is warm and dry. Respiratory: Airway is patent Respiratory effort is even, unlabored, Respiratory pattern is regular, symmetrical. GI: Abdomen is flat, Bowel sounds present X 4 quads. Abd is soft. : No signs and/or symptoms were reported regarding the genitourinary system. EENT: No signs and/or symptoms were reported regarding the EENT system. Derm: Rash noted that is vesicular, on abdomen. Musculoskeletal: No signs and/or symptoms reported regarding the musculoskeletal system. Vital Signs: 20:27 BP 227 / 148; Pulse 113; Resp 20; Temp 99.6; Pulse Ox 100% on R/A; Weight 58.06 kg; bm8 Height 5 ft. 1 in. ; Pain 10/10; 21:00 BP 213 / 134; Pulse 102; Resp 19; Pulse Ox 100% on R/A; me1 22:00 BP 196 / 138; Pulse 103; Resp 19; Pulse Ox 98% on R/A; me1 22:09 BP 196 / 138; Pulse 105; ec2 23:00 BP 180 / 123; Pulse 92; Resp 13; Pulse Ox 96% on R/A; me1 23:15 BP 198 / 151; Pulse 96; Resp 18; Pulse Ox 95% on R/A; me1 20:27 Body Mass Index 24.19 (58.06 kg, 154.94 cm) bm8 20:27 Pain Scale: Adult bm8 23:00 Dr Ruiz aware of BP. Patient instructed to take her routine evening bp meds when she me1 gets home, verbalized understanding. ED Course: 20:20 Patient arrived in ED. jj6 20:23 Carlitos Ruiz MD is Attending Physician. ec2 20:29 Triage completed. bm8 20:29 Arm band placed on right wrist. bm8 20:45 Patient has correct armband on for positive identification. Bed in low position. Call me1 light in reach. Side rails up X2. Provided Education on: POC. Verbalized understanding. . Client placed on continuous cardiac and pulse oximetry monitoring. NIBP monitoring applied. Pulse ox on. NIBP on. 20:45 No provider procedures requiring assistance completed. me1 21:07 XRAY Chest (1 view) In Process Unspecified. EDMS 21:11 Initial lab(s) drawn, by me, sent to lab. First set of blood cultures drawn by me. me1 21:14 Bianca Baptiste, RN is Primary Nurse. me1 21:15 Inserted saline lock: 22 gauge in right antecubital area, using aseptic technique. me1 21:15 Lactate w/ 2H reflex if indic. Sent. me1 21:15 Basic Metabolic Panel Sent. me1 21:15 CBC with Diff Sent. me1 21:15 Troponin HS Sent. me1 21:32 Second set of blood cultures drawn by me. me1 22:22 CT Abd/Pelvis - Without Contrast In Process Unspecified. EDMS 23:37 IV discontinued, intact, bleeding controlled, No redness/swelling at site. Pressure me1 dressing applied. Administered Medications: 21:26 Drug: Acetaminophen PO 1000 mg PO once Route: PO; me1 22:07 Follow up: Response: No adverse reaction me1 21:27 Drug: morphine IVP or IV 4 mg IVP once over 4 mins Route: IVP; Infused Over: 4 mins; wa1 Site: right antecubital; 22:08 Follow up: Response: No adverse reaction; Pain is decreased me1 21:27 Drug: Ondansetron IVP 4 mg IVP once; over 2 minutes Route: IVP; Site: right antecubital;me1 22:07 Follow up: Response: No adverse reaction; Nausea is decreased me1 21:46 Drug: Rocephin IV 1 grams IV at calculated rate once; Given slow IV push per pharmacy me1 instructions Route: IV; Rate: calculated rate; Site: right antecubital; 22:08 Follow up: Response: No adverse reaction; IV Status: Completed infusion me1 23:10 Drug: morphine IVP or IV 4 mg IVP once over 4 mins Route: IVP; Infused Over: 4 mins; wa1 Site: right antecubital; 23:17 Follow up: Response: No adverse reaction; Pain is decreased me1 Medication: 20:45 VIS not applicable for this client. me1 Outcome: 23:00 Discharge ordered by . ec2 23:37 Discharged to home ambulatory, with family, me1 23:37 Condition: stable 23:37 Discharge instructions given to patient, family, Instructed on discharge instructions, follow up and referral plans. medication usage, Demonstrated understanding of instructions, follow-up care, medications, Prescriptions given X 2, 23:39 Patient left the ED. me1 Signatures: Dispatcher [employer] EDAngie Ramirez jj6 Bianca Baptiste, RN RN me1 Carlitos Ruiz MD MD ec2 Gaurav Lopez, RN RN bm8 Corrections: (The following items were deleted from the chart) 20:32 20:29 PMHx: "kidney issues"; bm8 bm8 22:38 20:27 Chief complaint: Patient states: I had shingles three weeks ago. and the pain me1 across my abd is unbearable. bm8 23:17 23:00 BP 180 / 123; Pulse 92bpm; Resp 13bpm; Pulse Ox 96% RA; me1 me1
[2023-12-27 06:22] VITALS: BP 198/151; TEMP 99.6; O2SAT 95
--- NOTE | 2023-12-27 12:42 | EKG ---
Test Date: 2023-12-26 Test Time: 22:03:55 [employer] Reader: RRRakel MEASUREMENT RESULTS: Intervals: Rate: 101 CT: 150 QRSD: 84 QT: 346 QTc: 448 [place]: P: 62 CT: 150 QRS: -54 T: 87 INTERPRETIVE STATEMENTS: Sinus tachycardia Left anterior fascicular block Left ventricular hypertrophy Abnormal ECG Compared to ECG 10/26/2023 19:53:48 Left anterior fascicular block now present Left ventricular hypertrophy now present Sinus rhythm no longer present Left-axis deviation no longer present Myocardial infarct finding no longer present Electronically Signed On 12-27-23 12:41:27 CDT by Andres Uribe
== END 2023-12-26 23:39 | disposition home or self-care (01) ==
LOC: ER 20:16
DX: B02.23 Postherpetic polyneuropathy (principal); I12.0 Hypertensive chronic kidney disease with stage 5 chronic kidney disease or end stage renal disease; N18.6 End stage renal disease; Z99.2 Dependence on renal dialysis
CPT/HCPCS: 96365; 93005; 87040 ×2; 85025; 80048; 36415; 83605; 84484; 74176; 71045; 96375; 99284; J2405; J0696

== ENCOUNTER 2024-01-05 20:55 | Emergency (ER) | payer OTHER ==
[2024-01-05] MEDS ORDERED: HYDROMORPHONE HCL 1 MG/ML INJ ONE (21:42)
[2024-01-05] MEDS ORDERED: cloNIDine HCL 0.1 MG TAB ONE (21:43)
[2024-01-05] MEDS ORDERED: HYDRALAZINE HCL 20 MG/ML VIAL ONE (23:15)
[2024-01-05 23:53] LABS: Absolute Eosinophils 0.5 K/uL (0-0.5); Absolute Lymphocytes (CBC) 0.7 K/uL (0.7-4.9); Absolute Monocytes 0.5 K/uL (0.1-1.3); Absolute Neutrophil 3.8 K/uL (1.8-8.0); Basophils % 0.8 % (0-1.3); Eosinophils % 8.8 % (0-4.4); Hematocrit 24.3 % (36.0-45.0); Hemoglobin 7.6 g/dL (12.0-15.0); Lymphocytes % 12.6 % (15.3-44.8); MCH 27.9 pg (27.0-35.0); MCHC 31.5 g/dL (32.0-36.0); MCV 88.6 fL (80-100); MPV 7.6 fL (7.6-11.3); Monocytes % 9.2 % (3.3-12.3); Neutrophils % 68.6 % (41.7-73.7); Platelets 169 thou/uL (152-406); RBC Red Blood Cell Count 2.74 M/uL (3.86-4.86); Red Cell Distribution Width 19.3 % (12.1-15.2)
[2024-01-06 00:02] LABS: Anion Gap 7.8 mEq/L (5.0-15.0); Magnesium 2.1 mg/dL (1.6-2.4); Potassium 3.8 mEq/L (3.5-5.1)
--- NOTE | 2024-01-06 00:34 | EDPHYS ---
Physician Documentation [facility] Name: Shaun Lopez Age: 33 yrs Sex: Female : 1990 Arrival Date: 01/05/2024 Time: 20:55 Bed 4 Private MD: ED Physician Daquan Ellington HPI: 01/04 21:31 This 33 yrs old Female presents to ER via Ambulatory with complaints of Shingles. cp 21:31 The patient or guardian reports chest pain that is located primarily in the right cp lateral posterior chest and right lateral anterior chest. 21:31 The chest pain is described as constant. Duration: The patient or guardian reports a cp single episode, continues. Severity of pain: in the emergency department the pain is unchanged despite home interventions. Patient is a 33-year-old female who presents to the emergency department with complaints of right-sided chest pain. Patient reports history of shingles to the right side of her chest and since this diagnosis she has had constant pain. She is prescribed some pain meds at home that are not working tonight so she comes to the emergency department. Historical: - Allergies: 21:08 Adhesives; cm10 21:08 AVOCADO (LAURUS PERSEA); cm10 21:08 Bactrim; cm10 - PMHx: 21:08 brain tumor-removed; Migraines; End stage renal disease; Hypertension; Seizures; cm10 Dialysis; - PSHx: 21:08 brain SX x 2; donor kidney removed; section; kidney biopsy; Fistula- L arm; cm10 kidney transplant; - Immunization history:: Adult Immunizations up to date. - Infectious Disease History:: Denies. - Social history:: Smoking status: Patient denies any tobacco usage or history of. ROS: 21:35 Cardiovascular: Positive for chest pain, of the right lateral chest wall, cp 21:35 Eyes: Negative for injury, pain, redness, and discharge, cp 21:35 Constitutional: Negative for body aches, chills, fever, poor PO intake, 21:35 Respiratory: Negative for cough, shortness of breath, wheezing, Exam: 21:40 Constitutional: The patient appears in no acute distress, alert, awake, cp non-diaphoretic, non-toxic, well developed, well nourished, in obvious pain, uncomfortable, 21:40 Head/Face: Normocephalic, atraumatic. cp 21:40 Chest/axilla: Inspection: rash, right lateral chest wall appears well healed, along dermatome with no erythema and no swelling, Palpation: tenderness, that is severe, 21:40 Cardiovascular: Rate: tachycardic, Rhythm: regular, 21:40 Respiratory: the patient does not display signs of respiratory distress, Respirations: normal, no use of accessory muscles, no retractions, labored breathing, is not present, Breath sounds: are clear throughout, no decreased breath sounds, no stridor, no wheezing, 21:40 Abdomen/GI: Inspection: abdomen appears normal, Palpation: abdomen is soft and non-tender, in all quadrants, 21:40 Neuro: Orientation: to person, place \T\ time. Mentation: is normal, Vital Signs: 21:06 BP 219 / 144; Pulse 99; Resp 18; Temp 97.9; Pulse Ox 98% on R/A; Weight 56.7 kg; Height cm10 5 ft. 1 in. ; Pain 10/10; 21:15 BP 209 / 142; Pulse 101; Resp 16 S; Pulse Ox 98% on R/A; jw7 21:30 BP 194 / 153; Pulse 101; Resp 17 S; Pulse Ox 99% on R/A; jw7 22:00 BP 197 / 139; Pulse 97; Resp 16 S; Pulse Ox 98% on R/A; jw7 22:30 BP 188 / 130; Pulse 94; Resp 15 S; Pulse Ox 96% on R/A; jw7 22:54 BP 184 / 130; Pulse 91; Resp 16 S; Pulse Ox 95% on R/A; jw7 01/05 00:00 BP 168 / 111; Pulse 85; Resp 16; Pulse Ox 96% ; jj7 00:41 BP 155 / 111; Pulse 91; Resp 17; Temp 98.1; Pulse Ox 97% ; jj7 01/04 21:06 Body Mass Index 23.62 (56.70 kg, 154.94 cm) cm10 01/04 21:06 Pain Scale: Adult cm10 MDM: 01/04 21:10 Patient medically screened. cp 01/05 00:33 Data reviewed: vital signs, nurses notes, lab test result(s), and as a result, I will cp discharge patient. 00:33 Differential diagnosis: chest wall pain, pleurisy, pneumonia, pneumothorax. I cp considered the following discharge prescriptions or medication management in the emergency department Medications were administered in the Emergency Department. See MAR. Counseling: I had a detailed discussion with the patient and/or guardian regarding the historical points, exam findings, and any diagnostic results supporting the discharge/admit diagnosis, radiology results, to return to the emergency department if symptoms worsen or persist or if there are any questions or concerns that arise at home. Response to treatment: the patient's symptoms have markedly improved after treatment, and as a result, I will discharge patient. Special discussion: Based on the patient's history, exam, and Dx evaluation, there is no indication for emergent intervention or inpatient Tx. It is understood by the patient/guardian that if the Sx's persist or worsen they need to return immediately for re-evaluation. 01/04 22:57 Order name: CBC with Diff; Complete Time: 00:17 01/05 00:17 Interpretation: Normal except: RBC 2.74; HGB 7.6; HCT 24.3; MCHC 31.5; RDW 19.3; LYM% cp 12.6; EOSINOPHIL % 8.8. 01/04 22:57 Order name: BMP; Complete Time: 00:17 cp 01/05 00:22 Interpretation: Normal except: BUN 19; CRE 4.41; GFR 13; CA 8.2. 01/04 22:57 Order name: Magnesium; Complete Time: 00:17 cp 01/04 22:51 Order name: Blood Pressure Recheck; Complete Time: 22:54 cp 01/04 22:57 Order name: IV Saline Lock; Complete Time: 23:43 01/04 22:57 Order name: Labs collected and sent; Complete Time: 23:43 cp Administered Medications: 01/04 21:59 Drug: HYDROmorphone IM 1 mg IM once Route: IM; Site: right deltoid; jw7 01/05 00:49 Follow up: Response: Marked relief of symptoms; Pain is decreased [facility] 01/04 22:00 Drug: cloNIDine PO 0.2 mg PO once Route: PO; jw7 01/05 00:49 Follow up: Response: Blood pressure is unchanged [facility] 01/04 23:50 Drug: hydrALAZINE IVP 20 mg IVP once; For SBP > 140 mmHg. Hold if less than 120 mmHg. jj7 Route: IVP; Site: right wrist; 01/05 00:49 Follow up: Response: Blood pressure is lowered jj7 Disposition Summary: 01/06/24 00:34 Discharge Ordered Notes: Location: Home cp Problem: an ongoing problem cp Symptoms: have improved cp Condition: Stable cp Diagnosis - Postherpetic polyneuropathy cp - Anemia in other chronic diseases classified elsewhere cp - Hypertensive chronic kidney disease with stage 5 chronic kidney disease or end cp stage renal disease Followup: cp - With: Keshawn Plaza DO - When: 2 - 3 days - Reason: Recheck today's complaints Discharge Instructions: - Discharge Summary Sheet cp - Anemia cp - Hypertension, Adult cp - Neuropathic Pain cp - Postherpetic Neuralgia cp Forms: - Medication Reconciliation Form cp - Antibiotic Education cp - Prescription Opioid Use cp - Patient Portal Instructions cp - Leadership Thank You Letter cp Signatures: Dispatcher [employer] EDMS Javon Roy PA PA cp Heydi Nieves RN RN jw7 Gini Aguilar RN RN jj7 Berenice Watters RN RN cm10 Corrections: (The following items were deleted from the chart) 01/04 22:57 22:57 CBC+H.LAB.BRZ ordered. EDMS EDMS 22:57 22:57 BASIC METABOLIC PANEL+C.LAB.BRZ ordered. EDMS EDMS 22:57 22:57 MAGNESIUM+C.LAB.BRZ ordered. EDMS EDMS
--- NOTE | 2024-01-06 00:34 | ER ---
Nurse's Notes [facility] Name: Shaun Lopez Age: 33 yrs Sex: Female : 1990 Arrival Date: 01/05/2024 Time: 20:55 Bed 4 Private MD: Diagnosis: Postherpetic polyneuropathy;Anemia in other chronic diseases classified elsewhere;Hypertensive chronic kidney disease with stage 5 chronic kidney disease or end stage renal disease Presentation: 01/04 21:06 Chief complaint: Patient states: Had shingles 1 month ago and continues to have pain. cm10 Pt states that the pain is on her right upper abdomen and radiates to her back. Pt taking meds with no relief. Coronavirus screen: Client denies travel out of the [place] in the last 14 days. At this time, the client does not indicate any symptoms associated with coronavirus-19. Ebola Screen: Patient denies travel to an Ebola-affected area in the 21 days before illness onset. No symptoms or risks identified at this time. Initial Sepsis Screen: Does the patient meet any 2 criteria? HR > 90 bpm. Does the patient have a suspected source of infection? No. Patient's initial sepsis screen is negative. Risk Assessment: Do you want to hurt yourself or someone else? Patient reports no desire to harm self or others. Onset of symptoms was January 05, 2024. 21:06 Method Of Arrival: Ambulatory cm10 21:06 Acuity: VERNA 3 cm10 Triage Assessment: 21:08 General: Appears in no apparent distress. uncomfortable, Behavior is calm, cooperative. cm10 Pain: Complains of pain in right mid back and right upper quadrant Pain currently is 10 out of 10 on a pain scale. Quality of pain is described as burning. Neuro: No deficits noted. Level of Consciousness is awake, alert, obeys commands, Oriented to person, place, time, situation, Appropriate for age. Respiratory: No deficits noted. Airway is patent Respiratory effort is even, unlabored, Respiratory pattern is regular, symmetrical. Historical: - Allergies: 21:08 Adhesives; cm10 21:08 AVOCADO (LAURUS PERSEA); cm10 21:08 Bactrim; cm10 - PMHx: 21:08 brain tumor-removed; Migraines; End stage renal disease; Hypertension; Seizures; cm10 Dialysis; - PSHx: 21:08 brain SX x 2; donor kidney removed; section; kidney biopsy; Fistula- L arm; cm10 kidney transplant; - Immunization history:: Adult Immunizations up to date. - Infectious Disease History:: Denies. - Social history:: Smoking status: Patient denies any tobacco usage or history of. Screenin:15 [facility] ED Fall Risk Assessment (Adult) History of falling in the last 3 months, jw7 including since admission No falls in past 3 months (0 pts) Confusion or Disorientation No (0 pts) Intoxicated or Sedated No (0 pts) Impaired Gait No (0 pts) Mobility Assist Device Used No (0 pt) Altered Elimination No (0 pt) Score/Fall Risk Level 0 - 2 = Low Risk Oriented to surroundings, Maintained a safe environment, Educated pt \T\ family on fall prevention, incl call for assistance when getting out of bed. Abuse screen: Denies threats or abuse. Denies injuries from another. Nutritional screening: No deficits noted. Tuberculosis screening: No symptoms or risk factors identified. Assessment: 21:15 General: Appears in no apparent distress. uncomfortable, Behavior is calm, cooperative, jw7 appropriate for age. 21:15 Pain: Complains of pain in abdomen and back and right upper quadrant and right mid back jw7 Pain does not radiate. Pain currently is 9 out of 10 on a pain scale. Quality of pain is described as burning, stinging, Pain began gradually, Is continuous. Neuro: Level of Consciousness is awake, alert, obeys commands, Oriented to person, place, time, situation, Appropriate for age. Cardiovascular: Heart tones S1 S2 present Capillary refill < 3 seconds Clubbing of nail beds is absent JVD is absent Patient's skin is warm and dry. Respiratory: Airway is patent Trachea midline Respiratory effort is even, unlabored, Respiratory pattern is regular, symmetrical. GI: Abdomen is flat, non-distended, Bowel sounds present X 4 quads. Abd is soft and non tender X 4 quads. : No deficits noted. No signs and/or symptoms were reported regarding the genitourinary system. EENT: No deficits noted. No signs and/or symptoms were reported regarding the EENT system. Derm: Skin is intact, is healthy with good turgor, Skin is dry, Skin is normal, Skin temperature is warm Rash noted that is vesicular. Musculoskeletal: Circulation, motion, and sensation intact. Range of motion: intact in all extremities. 22:30 Reassessment: Patient appears in no apparent distress at this time. No changes from jw7 previously documented assessment. Patient and/or family updated on plan of care and expected duration. Pain level reassessed. Patient is alert, oriented x 3, equal unlabored respirations, skin warm/dry/pink. Vital Signs: 21:06 BP 219 / 144; Pulse 99; Resp 18; Temp 97.9; Pulse Ox 98% on R/A; Weight 56.7 kg; Height cm10 5 ft. 1 in. ; Pain 10/10; 21:15 BP 209 / 142; Pulse 101; Resp 16 S; Pulse Ox 98% on R/A; jw7 21:30 BP 194 / 153; Pulse 101; Resp 17 S; Pulse Ox 99% on R/A; jw7 22:00 BP 197 / 139; Pulse 97; Resp 16 S; Pulse Ox 98% on R/A; jw7 22:30 BP 188 / 130; Pulse 94; Resp 15 S; Pulse Ox 96% on R/A; jw7 22:54 BP 184 / 130; Pulse 91; Resp 16 S; Pulse Ox 95% on R/A; jw7 01/05 00:00 BP 168 / 111; Pulse 85; Resp 16; Pulse Ox 96% ; jj7 00:41 BP 155 / 111; Pulse 91; Resp 17; Temp 98.1; Pulse Ox 97% ; jj7 01/04 21:06 Body Mass Index 23.62 (56.70 kg, 154.94 cm) cm10 01/04 21:06 Pain Scale: Adult cm10 ED Course: 01/04 20:56 Patient arrived in ED. mr 21:07 Javon Roy PA is PHCP. cp 21:07 Daquan Ellington MD is Attending Physician. cp 21:08 Triage completed. cm10 21:09 Arm band placed on Patient placed in an exam room, on a stretcher. cm10 21:15 Patient has correct armband on for positive identification. Bed in low position. Call jw7 light in reach. Side rails up X 1. Provided Education on: Use of Call Light. 23:41 Missed attempt(s): 20 gauge in right antecubital area. Bleeding controlled, band aid rv1 applied, catheter tip intact. 23:41 Missed attempt(s): 20 gauge in right forearm. Bleeding controlled, band aid applied, rv1 catheter tip intact. 23:41 Missed attempt(s): 22 gauge forearm. Bleeding controlled, band aid applied, catheter rv1 tip intact. 23:41 Missed attempt(s): 22 gauge in right forearm. Bleeding controlled, band aid applied, rv1 catheter tip intact. 23:41 Inserted saline lock: 22 gauge in right wrist, using aseptic technique. Blood collected.01/05 00:32 Keshawn Plaza DO is Referral Physician. cp 00:47 No provider procedures requiring assistance completed. IV discontinued, intact, jj7 bleeding controlled, No redness/swelling at site. Pressure dressing applied. Administered Medications: 01/04 21:59 Drug: HYDROmorphone IM 1 mg IM once Route: IM; Site: right deltoid; [facility] 01/05 00:49 Follow up: Response: Marked relief of symptoms; Pain is decreased j7 01/04 22:00 Drug: cloNIDine PO 0.2 mg PO once Route: PO; [facility] 01/05 00:49 Follow up: Response: Blood pressure is unchanged j7 01/04 23:50 Drug: hydrALAZINE IVP 20 mg IVP once; For SBP > 140 mmHg. Hold if less than 120 mmHg. j7 Route: IVP; Site: right wrist; 01/05 00:49 Follow up: Response: Blood pressure is lowered jj7 Medication: 00:48 VIS not applicable for this client. jj7 Outcome: 00:34 Discharge ordered by . cp 00:47 Discharged to home ambulatory, with family, jj7 00:47 Condition: improved 00:47 Discharge instructions given to patient, Instructed on discharge instructions, follow up and referral plans. Demonstrated understanding of instructions, follow-up care, 00:48 Patient left the ED. jj7 Signatures: Marianna Pearson, Trent Reg mr Javon Roy PA PA cp Waits, Jodi, RN RN jw7 Gini Aguilar RN RN jj7 Abiola Roblero rv1 Berenice Watters RN RN cm10
[2024-01-06 01:14] VITALS: BP 155/111; TEMP 98.1; O2SAT 97
== END 2024-01-06 00:48 | disposition home or self-care (01) ==
LOC: ER 20:55
DX: B02.23 Postherpetic polyneuropathy (principal); D63.1 Anemia in chronic kidney disease; I12.0 Hypertensive chronic kidney disease with stage 5 chronic kidney disease or end stage renal disease; N18.6 End stage renal disease; Z99.2 Dependence on renal dialysis
CPT/HCPCS: 85025; 80048; 36415; 83735; 96372; 96374; 99284; J0360; J1170

== ENCOUNTER 2024-01-29 17:13 | Inpatient (IN) | payer OTHER ==
[2024-01-29 18:33] LABS: Absolute Basophils 0.1 K/uL (0-0.5); Absolute Eosinophils 0.2 K/uL (0-0.5); Absolute Lymphocytes (CBC) 1.4 K/uL (0.7-4.9); Absolute Monocytes 0.6 K/uL (0.1-1.3); Basophils % 1.3 % (0-1.3); Hematocrit 34.4 % (36.0-45.0); Hemoglobin 11.1 g/dL (12.0-15.0); Lymphocytes % 22.3 % (15.3-44.8); MCH 29.1 pg (27.0-35.0); MCHC 32.2 g/dL (32.0-36.0); MCV 90.4 fL (80-100); MPV 8.5 fL (7.6-11.3); Monocytes % 10.2 % (3.3-12.3); Neutrophils % 63.2 % (41.7-73.7); Nucleated Red Blood Cells % 0.2 % (0-0); Platelets 163 thou/uL (152-406)
[2024-01-29 19:02] LABS: ALT/SGPT 33 U/L (13-56); Albumin 3.4 g/dL (3.4-5.0); Albumin/Globulin Ratio 0.9 (1.1-1.8); Alkaline Phosphatase 77 U/L (45-117); Anion Gap 18.6 mEq/L (5.0-15.0); BUN Blood Urea Nitrogen 41 mg/dL (7-18); Bicarbonate 21 mEq/L (21-32); Bilirubin Direct 0.4 mg/dL (0-0.2); Bilirubin Indirect, Calculated 0.5 mg/dL (0.2-0.8); Bilirubin Total 0.9 mg/dL (0.2-1.0); Globulin 3.6 g/dL (2.3-3.5); Glomerular Filtration Rate 6 ml/min (=/>90); Glucose Level 87 mg/dL (74-106); Sodium Level 130 mEq/L (136-145); Troponin High Sensitivity 21.7 pg/mL (<58.9)
[2024-01-29 19:05] LABS: AST/SGOT 38 U/L (15-37); Magnesium 2.4 mg/dL (1.6-2.4); Potassium 5.6 mEq/L (3.5-5.1)
[2024-01-29 19:06] LABS: NT PRO-BNP > 35000 pg/mL (<125)
[2024-01-29] MEDS ORDERED: ONDANSETRON 4 MG/2 ML VIAL ONE (19:24)
[2024-01-29] MEDS ORDERED: HYDRALAZINE HCL 20 MG/ML VIAL ONE ×2 (19:24→22:10)
[2024-01-29] MEDS ORDERED: MORPHINE 4 MG/ML SYR ONE (19:25)
--- NOTE | 2024-01-29 19:34 | RAD REPORT ---
EXAM DESCRIPTION: RADChest Single View01/29/2024 6:13 pm CLINICAL HISTORY: CHEST PAIN COMPARISON: Chest Single View dated 01/20/2024; Chest Single View dated 01/10/2024; Chest Single View d ated 12/26/2023; Chest Single View dated 10/26/2023 TECHNIQUE: Portable AP view of the chest. FINDINGS: The lungs are clear. Interval resolution of interstitial prominence/ edema since the prior exam. No pneumothorax or effusion. The cardiomediastinal contours are unremarkable. IMPRESSION: No acute cardiopulmonary process.
[2024-01-29 20:02] LABS: Anisocytosis 2+; Blood Morphology Comment NOTED (NOT SEEN); Hypochromasia 2+; Platelet Estimate ADEQ; Polychromasia 1+; White Blood Cell Scan OK (OK)
[2024-01-29] MEDS ORDERED: ALBUTEROL 2.5 MG/3 ML NEB SOL ONE ×2 (20:04→22:39)
[2024-01-29] MEDS ORDERED: FUROSEMIDE 20 MG/ 2ML VIAL ONE (20:04)
[2024-01-29] MEDS ORDERED: SOD POLYSTYREN SUL 15 GM/60 ML UCUP ONE (20:04)
[2024-01-29] MEDS ORDERED: SODIUM BICARB 50 MEQ/50ML VIAL ONE (20:05)
--- NOTE | 2024-01-29 21:01 | ER ---
Nurse's Notes [facility] Name: Shaun Lopez Age: 33 yrs Sex: Female : 1990 Arrival Date: 01/29/2024 Time: 17:13 Bed 20 Private MD: Diagnosis: Hyperkalemia;Neuralgia and neuritis, unspecified;Hypertensive crisis, unspecified Presentation: 01/28 17:51 Chief complaint: Patient states: Pt c/o ongoing shingles outbreak from abdomen to back tl4 that is causing her pain. Coronavirus screen: At this time, the client does not indicate any symptoms associated with coronavirus-19. Ebola Screen: No symptoms or risks identified at this time. Initial Sepsis Screen: Does the patient meet any 2 criteria? No. Patient's initial sepsis screen is negative. Does the patient have a suspected source of infection? No. Patient's initial sepsis screen is negative. Risk Assessment: Do you want to hurt yourself or someone else? Patient reports no desire to harm self or others. Onset of symptoms is unknown. 17:51 Method Of Arrival: Ambulatory tl4 17:51 Acuity: VERNA 3 tl4 Triage Assessment: 17:53 General: Appears distressed, uncomfortable, Behavior is agitated. Pain: Complains of tl4 pain in back and abdomen. EENT: No signs and/or symptoms were reported regarding the EENT system. Neuro: Level of Consciousness is awake, alert, obeys commands, Oriented to person, place, time, situation. Cardiovascular: Capillary refill < 3 seconds Patient's skin is warm and dry. Respiratory: Airway is patent Respiratory effort is even, unlabored, Respiratory pattern is regular, symmetrical. GI: No signs and/or symptoms were reported involving the gastrointestinal system. : No signs and/or symptoms were reported regarding the genitourinary system. Derm: No signs and/or symptoms reported regarding the dermatologic system. Musculoskeletal: No signs and/or symptoms reported regarding the musculoskeletal system. 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 - Infectious Disease History:: Denies. - Social history:: Smoking status: Patient denies any tobacco usage or history of. Screenin:00 [facility] ED Fall Risk Assessment (Adult) History of falling in the last 3 months, aa5 including since admission No falls in past 3 months (0 pts) Confusion or Disorientation No (0 pts) Intoxicated or Sedated No (0 pts) Impaired Gait No (0 pts) Mobility Assist Device Used No (0 pt) Altered Elimination No (0 pt) Score/Fall Risk Level 0 - 2 = Low Risk Oriented to surroundings, Maintained a safe environment, Educated pt \\T\\ family on fall prevention, incl call for assistance when getting out of bed. Abuse screen: Denies threats or abuse. Nutritional screening: No deficits noted. Tuberculosis screening: No symptoms or risk factors identified. Assessment: 18:00 General: Appears uncomfortable, Behavior is cooperative, anxious, Pt reports last dose aa5 of antihypertensive medication was today, states "my blood pressure is always very high and I am in pain" . Pain: Complains of pain in right side of abdomen Pain radiates to right side of back Pain currently is 10 out of 10 on a pain scale. Quality of pain is described as sharp, stinging, Pain began 3-4 months ago and worse last night Is continuous. Neuro: Level of Consciousness is awake, alert, obeys commands, Oriented to person, place, time, situation. Cardiovascular: Heart tones S1 S2 present Rhythm is regular Dialysis shunt: in the left arm, with palpable thrill, with auscultated bruit, with no erythema, with no edema, no bleeding noted. Respiratory: Airway is patent Respiratory effort is even, unlabored, Respiratory pattern is regular, symmetrical. GI: Abdomen is round non-distended. : No signs and/or symptoms were reported regarding the genitourinary system. EENT: No signs and/or symptoms were reported regarding the EENT system. Derm: Skin is pink, warm \\T\\ dry. Musculoskeletal: Range of motion: intact in all extremities. 18:35 Reassessment: Unable to obtain IV access, charge nurse notified. Kimberley Rhoades, RN aa5 attempting IV access now. . 19:10 General: Appears uncomfortable, Behavior is cooperative, appropriate for age, anxious. rg5 19:10 Pain: Complains of pain in anterior aspect of left lateral abdomen Pain currently is 9 rg5 out of 10 on a pain scale. Quality of pain is described as aching, Is continuous. Neuro: Level of Consciousness is awake, alert, obeys commands, Oriented to person, place, time, situation. Cardiovascular: Denies chest pain, Heart tones S1 S2 present Rhythm is sinus rhythm Dialysis shunt: in the left bicep, with palpable thrill, with auscultated bruit, with no erythema, with no edema, no bleeding noted. Respiratory: Airway is patent Respiratory effort is even, unlabored, Respiratory pattern is regular, symmetrical. GI: Abdomen is round non-distended, Abd is soft and non tender. : No signs and/or symptoms were reported regarding the genitourinary system. EENT: No signs and/or symptoms were reported regarding the EENT system. Derm: Skin is pink, warm \\T\\ dry. Musculoskeletal: Range of motion: intact in all extremities. Vital Signs: 17:51 BP 217 / 142; Pulse 85; Resp 20; Temp 98.8(O); Pulse Ox 100% on R/A; Weight 58.06 kg; tl4 Height 5 ft. 1 in. ; Pain 10/10; 19:45 BP 148 / 102; Pulse 79; Resp 16; Pulse Ox 100% on R/A; rg5 20:14 BP 189 / 119; Pulse 79; Resp 19 S; Pulse Ox 100% on R/A; rg5 21:30 BP 202 / 132; Pulse 81; Resp 19; Pulse Ox 99% ; rg5 22:02 BP 200 / 129; Pulse 96; Pulse Ox 98% on R/A; rg5 22:21 BP 187 / 128; Pulse 98; Resp 17 S; Pulse Ox 98% on R/A; rg5 23:02 BP 169 / 111; Pulse 99; Resp 19; Temp 98; Pulse Ox 100% on R/A; Pain 4/10; rg5 23:31 BP 159 / 106; Pulse 96; Resp 18; Pulse Ox 99% on R/A; rg5 17:51 Body Mass Index 24.19 (58.06 kg, 154.94 cm) tl4 17:51 Pain Scale: Adult tl4 23:02 Pain Scale: Adult rg5 ED Course: 17:14 Patient arrived in ED. ec2 17:24 [facility] cp 17:24 Carlitos Ruiz MD is Attending Physician. cp 17:53 Triage completed. tl4 17:54 Arm band placed on right wrist. tl4 17:56 Guerline Conklin, RN is Primary Nurse. aa5 18:00 Patient has correct armband on for positive identification. Bed in low position. Call aa5 light in reach. Side rails up X2. Adult w/ patient. Client placed on continuous cardiac and pulse oximetry monitoring. NIBP monitoring applied. 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 Pulse ox on. NIBP on. 18:10 EKG done, by ED staff, reviewed by Javon BUENROSTRO. aa5 18:15 XRAY Chest (1 view) In Process Unspecified. EDMS 18:15 Missed attempt(s): 22 gauge in right antecubital area. Bleeding controlled, band aid aa5 applied, catheter tip intact. 18:20 Missed attempt(s): 22 gauge in right wrist. Bleeding controlled, band aid applied, aa5 catheter tip intact. 18:20 Initial lab(s) drawn, by me, sent to lab. aa5 19:00 Report given to JERALD Munson. aa5 19:10 Door closed. Noise minimized. Lights dimmed. Warm blanket given. Verbal reassurance rg5 given. 19:15 Inserted saline lock: 22 gauge in right antecubital area, using aseptic technique. ha1 Flushed with 10 mL NS. 19:56 He Leal MD is Attending Physician. cp 20:58 Tesfaye Llamas MD is Hospitalizing Provider. cp 23:34 No provider procedures requiring assistance completed. rg5 23:35 Provided Education on: needs for admit. rg5 23:35 IV discontinued, intact, No redness/swelling at site. rg5 Administered Medications: 19:18 Drug: Ondansetron IVP 4 mg IVP once; over 2 minutes Route: IVP; Site: right antecubital;ha1 20:42 Follow up: Response: No adverse reaction rg5 19:20 Drug: morphine IVP or IV 4 mg IVP once over 4 mins Route: IVP; Infused Over: 4 mins; ha1 Site: right antecubital; 20:42 Follow up: Response: No adverse reaction rg5 19:22 Drug: hydrALAZINE IVP 20 mg IVP once; For SBP > 140 mmHg. Hold if less than 120 mmHg. ha1 Route: IVP; Site: right antecubital; 20:43 Follow up: Response: No adverse reaction rg5 20:15 Drug: Kayexalate PO 30 grams PO once Route: PO; rg5 20:30 Follow up: Response: No adverse reaction rg5 20:15 Drug: Albuterol Inhalation 2.5 mg Inhalation continuous x3 Route: Inhalation; rg5 20:15 Drug: Furosemide IVP 40 mg IVP once; give over 2 minutes Route: IVP; Site: right rg5 antecubital; 20:30 Follow up: Response: No adverse reaction rg5 20:15 Drug: Sodium Bicarbonate IVP 1 amp IVP once; (50 mL); equals 50 mEq Route: IVP; Site: rg5 right antecubital; 20:30 Follow up: Response: No adverse reaction; Marked relief of symptoms rg5 21:15 Drug: Labetalol IV 20 mg IV at calculated rate once over 2 mins Route: IV; Rate: rg5 calculated rate; Infused Over: 2 mins; Site: right antecubital; 21:30 Follow up: Response: No adverse reaction; IV Status: Completed infusion rg5 21:17 Drug: fentaNYL (PF) IVP 50 mcg IVP once Route: IVP; Site: right antecubital; rg5 21:30 Drug: Albuterol Inhalation 2.5 mg Inhalation continuous x3 Route: Inhalation; rg5 21:45 Drug: Albuterol Inhalation 2.5 mg Inhalation continuous x3 Route: Inhalation; rg5 22:19 Not Given (given on [email or web address] ): [id number] mg IVP once rg5 22:20 Drug: HydrALAZINE PO 50 mg PO once Route: PO; rg5 Medication: 19:00 VIS not applicable for this client. aa5 Outcome: 21:00 Decision to Hospitalize by Provider. cp 23:35 Admitted to Med/surg accompanied by nurse, via wheelchair, rg5 23:35 Condition: stable 23:35 Instructed on the need for admit, 23:37 Patient left the ED. rg5 Signatures: Dispatcher [employer] EDMS Guerline Conklin, RN RN aa5 Javon Roy PA PA cp Ayala, Heidy RN RN ha1 Carlitos Ruiz MD MD ec2 Lakhwinder Roy RN RN tl4 Martin Salazar RN RN rg5 Corrections: (The following items were deleted from the chart) 20:11 19:59 BP 148 / 102; Pulse 79bpm; Resp 16bpm; Pulse Ox 100% RA; rg5 rg5
--- NOTE | 2024-01-29 21:01 | EDPHYS ---
Physician Documentation [facility] Name: Shaun Lopez Age: 33 yrs Sex: Female : 1990 Arrival Date: 01/29/2024 Time: 17:13 Bed 20 Private MD: ED Physician He Leal HPI: 01/28 18:05 This 33 yrs old Female presents to ER via Ambulatory with complaints of shingles cp outbreak. 18:05 The patient or guardian reports chest pain that is located primarily in the anterior cp chest wall, right. 18:05 Associated signs and symptoms: Pertinent negatives: abdominal pain, cough, shortness of cp breath, fever. 18:05 Patient is a 33-year-old female with past medical history significant for end-stage cp renal disease who presents to the emergency department with complaints of right-sided chest pain. Patient reports a history of shingles in that area and has chronic pain. Patient does not have a pain management doctor so she comes to the emergency department requesting pain meds. Patient states her last dialysis was this past Tuesday and review it initial vitals shows that she is very hypertensive. 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 - Infectious Disease History:: Denies. - Social history:: Smoking status: Patient denies any tobacco usage or history of. ROS: 18:10 Constitutional: Negative for fever, cp 18:10 Cardiovascular: Positive for chest pain, of the right lateral chest wall, 18:10 Eyes: Negative for injury, pain, redness, and discharge, cp 18:10 ENT: Negative for drainage from ear(s), ear pain, sore throat, difficulty swallowing, difficulty handling secretions, 18:10 Respiratory: Negative for cough, shortness of breath, wheezing, 18:10 Abdomen/GI: Negative for vomiting, diarrhea, constipation, 18:10 Neuro: Negative for altered mental status, dizziness, headache, weakness, 18:10 All other systems are negative, Exam: 18:15 Constitutional: The patient appears in no acute distress, alert, awake, cp non-diaphoretic, non-toxic, well developed, well nourished, uncomfortable, 18:15 Head/Face: Normocephalic, atraumatic. cp 18:15 Eyes: Periorbital structures: appear normal, Conjunctiva: normal, no exudate, no injection, Sclera: no appreciated abnormality, Lids and lashes: appear normal, bilaterally, 18:15 ENT: External ear(s): are unremarkable, Nose: is normal, Mouth: Lips: moist, Oral mucosa: pink and intact, moist, Posterior pharynx: is normal, airway is patent, no erythema, no exudate, 18:15 Chest/axilla: Inspection: right lateral chest wall scar, 18:15 Cardiovascular: Rate: normal, Rhythm: regular, JVD: is not appreciated, 18:15 Respiratory: the patient does not display signs of respiratory distress, Respirations: normal, no use of accessory muscles, no retractions, labored breathing, is not present, Breath sounds: are clear throughout, no decreased breath sounds, no stridor, no wheezing, 18:15 Abdomen/GI: Inspection: abdomen appears normal, Palpation: abdomen is soft and non-tender, in all quadrants, 18:15 Back: pain, is absent, ROM is normal, 18:15 Neuro: Orientation: to person, place \T\ time. Mentation: is normal, Cerebellar function: is grossly normal, Motor: moves all fours, strength is normal, Sensation: is normal, Gait: is steady, at a normal pace, without difficulty, 18:17 ECG was reviewed by the Attending Physician. cp Vital Signs: 17:51 BP 217 / 142; Pulse 85; Resp 20; Temp 98.8(O); Pulse Ox 100% on R/A; Weight 58.06 kg; tl4 Height 5 ft. 1 in. ; Pain 10/10; 19:45 BP 148 / 102; Pulse 79; Resp 16; Pulse Ox 100% on R/A; rg5 20:14 BP 189 / 119; Pulse 79; Resp 19 S; Pulse Ox 100% on R/A; rg5 21:30 BP 202 / 132; Pulse 81; Resp 19; Pulse Ox 99% ; rg5 22:02 BP 200 / 129; Pulse 96; Pulse Ox 98% on R/A; rg5 22:21 BP 187 / 128; Pulse 98; Resp 17 S; Pulse Ox 98% on R/A; rg5 23:02 BP 169 / 111; Pulse 99; Resp 19; Temp 98; Pulse Ox 100% on R/A; Pain 4/10; rg5 23:31 BP 159 / 106; Pulse 96; Resp 18; Pulse Ox 99% on R/A; rg5 17:51 Body Mass Index 24.19 (58.06 kg, 154.94 cm) tl4 17:51 Pain Scale: Adult tl4 23:02 Pain Scale: Adult rg5 MDM: 21:00 Patient medically screened. 21:00 Data reviewed: vital signs, nurses notes, lab test result(s), EKG, radiologic studies, cp plain films, and as a result, I will admit patient. 21:00 Differential diagnosis: abnormal EKG, costochondritis, pleurisy, pneumonia, cp hypertensive emergency, hyperkalemia. Management of patient was discussed with the following: Hospitalist: DR Llamas will admit after discussion. I considered the following discharge prescriptions or medication management in the emergency department Medications were administered in the Emergency Department. See SEP. 01/28 18:00 Order name: Basic Metabolic Panel; Complete Time: 19:29 01/28 19:29 Interpretation: Normal except: NA 130; K 5.6; CL 96; ANION GAP 18.6; BUN 41; CRE 7.85; cp GFR 6. 01/28 18:00 Order name: CBC with Diff; Complete Time: 20:07 01/28 18:47 Interpretation: Normal except: RBC 3.80; HGB 11.1; HCT 34.4; RDW 18.0. 01/28 18:00 Order name: LFT's; Complete Time: 19:29 01/28 20:08 Interpretation: Normal except: AST 38; BILID 0.4; GLOB 3.6; A/G 0.9. 01/28 18:00 Order name: Magnesium; Complete Time: 19:29 01/28 18:00 Order name: NT PRO-BNP; Complete Time: 19:29 cp 01/28 18:00 Order name: Troponin HS; Complete Time: 19:29 cp 01/28 18:44 Order name: CBC Smear Scan; Complete Time: 20:07 EDNM 01/28 19:31 Order name: Potassium cp 01/28 21:25 Order name: Urinalysis w/ reflexes EDNM 01/28 21:25 Order name: CBC with Automated Diff EDNM 01/28 21:25 Order name: CBC with Automated Diff EDNM 01/28 21:25 Order name: Comprehensive Metabolic Panel EDNM 01/28 21:25 Order name: Comprehensive Metabolic Panel EDNM 01/28 18:00 Order name: XRAY Chest (1 view); Complete Time: 20:07 cp 01/28 18:00 Order name: Cardiac monitoring; Complete Time: 18:24 cp 01/28 18:00 Order name: EKG - Nurse/Tech; Complete Time: 18:24 cp 01/28 18:00 Order name: IV Saline Lock; Complete Time: 18:24 01/28 18:00 Order name: Labs collected and sent; Complete Time: 18:24 01/28 18:00 Order name: O2 Per Protocol; Complete Time: 18:24 cp 01/28 18:00 Order name: O2 Sat Monitoring; Complete Time: 18:24 cp 01/28 19:29 Order name: Blood Pressure Recheck; Complete Time: 19:59 cp EC:17 Rate is 83 beats/min. Rhythm is regular. [place] interval is normal. QRS interval is normal. cp QT interval is normal. T waves are Inverted in leads aVL, aVR, V2. Interpreted by me. Reviewed by me. Administered Medications: 19:18 Drug: Ondansetron IVP 4 mg IVP once; over 2 minutes Route: IVP; Site: right antecubital;ha1 20:42 Follow up: Response: No adverse reaction rg5 19:20 Drug: morphine IVP or IV 4 mg IVP once over 4 mins Route: IVP; Infused Over: 4 mins; ha1 Site: right antecubital; 20:42 Follow up: Response: No adverse reaction rg5 19:22 Drug: hydrALAZINE IVP 20 mg IVP once; For SBP > 140 mmHg. Hold if less than 120 mmHg. ha1 Route: IVP; Site: right antecubital; 20:43 Follow up: Response: No adverse reaction rg5 20:15 Drug: Kayexalate PO 30 grams PO once Route: PO; rg5 20:30 Follow up: Response: No adverse reaction rg5 20:15 Drug: Albuterol Inhalation 2.5 mg Inhalation continuous x3 Route: Inhalation; rg5 20:15 Drug: Furosemide IVP 40 mg IVP once; give over 2 minutes Route: IVP; Site: right rg5 antecubital; 20:30 Follow up: Response: No adverse reaction rg5 20:15 Drug: Sodium Bicarbonate IVP 1 amp IVP once; (50 mL); equals 50 mEq Route: IVP; Site: rg5 right antecubital; 20:30 Follow up: Response: No adverse reaction; Marked relief of symptoms rg5 21:15 Drug: Labetalol IV 20 mg IV at calculated rate once over 2 mins Route: IV; Rate: rg5 calculated rate; Infused Over: 2 mins; Site: right antecubital; 21:30 Follow up: Response: No adverse reaction; IV Status: Completed infusion rg5 21:17 Drug: fentaNYL (PF) IVP 50 mcg IVP once Route: IVP; Site: right antecubital; rg5 21:30 Drug: Albuterol Inhalation 2.5 mg Inhalation continuous x3 Route: Inhalation; rg5 21:45 Drug: Albuterol Inhalation 2.5 mg Inhalation continuous x3 Route: Inhalation; rg5 22:19 Not Given (given on [employer] ): [id number] mg IVP once rg5 22:20 Drug: HydrALAZINE PO 50 mg PO once Route: PO; rg5 Disposition: 01/29 19:31 Co-signature as Attending Physician, He Leal MD I agree with the assessment sp4 and plan of care. I reviewed the patient's care provided by the Advanced Practice Provider and agree with the diagnosis and treatment plan. Disposition Summary: 01/29/24 21:00 Hospitalization Ordered Notes: Hospitalization Status: Observation cp Provider: Tesfaye Llamas cp Location: Telemetry/MedSurg (observation) cp Condition: Stable cp Problem: new cp Symptoms: have improved cp Bed/Room Type: Standard cp Room Assignment: 210(01/29/24 21:41) kmf Diagnosis - Hyperkalemia cp - Neuralgia and neuritis, unspecified cp - Hypertensive crisis, unspecified cp Forms: - Medication Reconciliation Form cp - SBAR form cp - Leadership Thank You Letter cp Signatures: Dispatcher [employer] EDMS Javon Roy PA PA cp Jeimy Lyon, RN RN ha1 He Leal MD MD sp4 Tamera Robertathaina Sandoval [facility] Lakhwinder Roy RN RN tl4 Martin Salazar RN RN rg5 Corrections: (The following items were deleted from the chart) 01/28 18:00 18:00 Chest Single View+[email or web address] ordered. EDNM EDMS 21:41 21:00 cp [facility] 01/29 23:14 22:56 Cardiovascular: Positive for chest pain, of the right lateral chest wall, cp cp 23:14 22:56 Constitutional: Negative for fever, cp cp
[2024-01-29] MEDS ORDERED: FENTANYL CITR 100 MCG/2 ML ONE (21:15)
[2024-01-29] MEDS ORDERED: LABETALOL 20 MG/4ML SYRINGE IV ONE (21:18)
[2024-01-29] MEDS ORDERED: ACETAMINOPHEN 325 MG TABLET PO PRN (21:21)
[2024-01-29] MEDS ORDERED: ONDANSETRON 4 MG/2 ML VIAL IV PRN (21:21)
[2024-01-29] MEDS ORDERED: clonazePAM 0.5 MG TAB PO PRN (21:26)
--- NOTE | 2024-01-29 21:28 | P.HP ---
Certification for Inpatient Patient admitted to: Inpatient With expected LOS: >2 Midnights Practitioner: I am a practitioner with admitting privileges, knowledge of patient current condition, hospital course, and medical plan of care. Services: Services provided to patient in accordance with Admission requirements found in Title 42 Section 412.3 of the Code of Federal Regulations Patient History Date of Service: 01/30/24 Reason for admission: Elevated blood pressure History of Present Illness: 33-year-old female with past medical history of Hypertension, ESRD, seizures, brain tumor , asthma, h/o kidney transplant/ nephrectomy, brought to ER with elevated blood pressure and intractable pain in the right flanks consistent with neuropathy . Patient states that she has been recovering from shingles on right flanks and started having extreme pain due to shingles . Denies any chest pain or shortness of breath. No dizziness or presyncopal episodes. Patient is on hemodialysis followed by She complains of headache and generalized body pain is noted to have blood pressure of 240/120 Patient was given hydralazine and was admitted for further monitoring Allergies sulfamethoxazole [From Bactrim] Allergy (Verified 10/27/23 00:24) Itching/Hives/Rash trimethoprim [From Bactrim] Allergy (Verified 10/27/23 00:24) Itching/Hives/Rash Home medications list reviewed: Yes Home Medications: Furosemide [Lasix*] 40 mg PO DAILYPRN PRN 10/24/23 Losartan Potassium 1 tab PO DAILY 10/24/23 Clonidine Patch [Catapres-Tts 3*] 0.3 mg TD EVERY 7TH DAY 30 Days #1 box 01/23/24 Bumetanide 3 mg PO BID 01/30/24 Butalb/Acetaminophen/Caffeine [Naqfbv-Przeigsu-Opip 50-325-40] 1 each PO Q6HR PRN 01/30/24 Calcitrol [Rocaltrol] 0.25 mcg PO DAILY 01/30/24 Carvedilol [Coreg] 25 mg PO BID 01/30/24 Dapsone [Dapsone*] 100 mg PO DAILY 01/30/24 Hydralazine HCl 10 mg PO Q8HR 01/30/24 Lisinopril [Zestril] 20 mg PO DAILY 01/30/24 Metoprolol Succinate [Toprol Xl] 100 mg PO DAILY 01/30/24 Nifedipine [Procardia Xl] 60 mg PO BID 01/30/24 Ondansetron [Zofran (Odt)*] 4 mg PO Q12H PRN 01/30/24 Terazosin HCl 2 mg PO BID 01/30/24 - Past Medical/Surgical History Diabetic: No Past Medical History: Reviewed- Non-Contributory -: Hypertension -: ESRD (Dr. Wills/ Juan A) -: Seizures (as a child) -: Brain tumor -: Asthma Past Surgical History: Reviewed- Non-Contributory -: Csection x2 -: Brain Sx -: Kidney Transplant Nephrectomy/transplant was removed recently Psychosocial/ Personal History: Lives at home - Family History Family History: Reviewed- Non-Contributory - Social History Smoking Status: Never smoker Alcohol use: No CD- Drugs: No Caffeine use: No Review of Systems 10-point ROS is otherwise unremarkable Physical Examination - Vital Signs Temperature: 98.8 F Blood Pressure: 216/106 Pulse: 88 Respirations: 19 Pulse Ox (%): 94 - Physical Exam General: Alert, In no apparent distress, Oriented x3 HEENT: Atraumatic, Normocephalic Neck: Supple, 2+ carotid pulse no bruit Respiratory: Clear to auscultation bilaterally, Normal air movement Cardiovascular: Normal pulses, Regular rate/rhythm, Normal S1 S2 Capillary refill: <2 Seconds Gastrointestinal: Soft and benign, W/out hepatosplenomegaly Musculoskeletal: No clubbing, No swelling, No warmth Integumentary: No rashes, No breakdown Neurological: Normal speech, Normal strength at 5/5 x4 extr, Cranial nerves 3-12 intact, Normal reflexes 2+ - Studies Laboratory Data (last 24 hrs) 01/29/24 01/29/24 18:23 18:23 WBC 6.30 Hgb 11.1 L Hct 34.4 L Plt Count 163 Sodium 130 L Potassium 5.6 H BUN 41 H Creatinine 7.85 H Glucose 87 Magnesium 2.4 Total Bilirubin 0.9 AST 38 H ALT 33 Alkaline Phosphatase 77 Assessment and Plan - Problems (Diagnosis) (1) Hypertensive urgency Current Visit: No Status: Acute Plan: Hypertensive urgency Antihypertensives titrated Hydralazine as needed Continue home medications and titrate as needed Monitor closely on telemetry Intractable pain in right flanks Post neuropathy pain Started on gabapentin Monitor closely Hyperkalemia Will give Lokelma Monitor under telemetry ESRD on dialysis Nephrology consulted Fluid overload Started on diuretics Seizure disorder Continue home medications GI/DVT prophylaxis Advanced directive full code Discharge Plan: Home Plan to discharge in: 48 Hours - Advance Directives Does patient have a Living Will: No Does patient have a Durable POA for Healthcare: No - Code Status/Comfort Care Code Status: Full Code Time Spent Managing Pts Care (In Minutes): 48
[2024-01-29] MEDS: HYDRALAZINE HCL 20 MG/ML VIAL IV PRN (22:10)
[2024-01-29] MEDS ORDERED: HYDRALAZINE HCL 25 MG TABLET ONE (22:24)
[2024-01-29 23:55] VITALS: BMI 25.5
[2024-01-30] MEDS: SODIUM ZIRCONIUM CYCLOSILICATE 10 GM/PKT PO ONE (00:57)
[2024-01-30] MEDS ORDERED: FUROSEMIDE 40 MG TABLET PO PRN (01:25)
[2024-01-30] MEDS ORDERED: ACETAMIN/CAFFEINE/BUTALB TAB PO PRN (01:25)
[2024-01-30 07:15] LABS: Hematocrit 30.5 % (36.0-45.0); Hemoglobin 9.8 g/dL (12.0-15.0); RBC Red Blood Cell Count 3.37 M/uL (3.86-4.86)
[2024-01-30 07:16] LABS: Absolute Eosinophils 0.3 K/uL (0-0.5); Absolute Lymphocytes (CBC) 0.9 K/uL (0.7-4.9); Absolute Monocytes 0.8 K/uL (0.1-1.3); Absolute Neutrophil 4.6 K/uL (1.8-8.0); Basophils % 0.3 % (0-1.3); Eosinophils % 4.5 % (0-4.4); Lymphocytes % 13.9 % (15.3-44.8); MCV 90.6 fL (80-100); Monocytes % 12.2 % (3.3-12.3); Neutrophils % 69.1 % (41.7-73.7); Nucleated Red Blood Cells % 0.1 % (0-0); Platelets 176 thou/uL (152-406); Red Cell Distribution Width 18.1 % (12.1-15.2)
[2024-01-30 07:37] LABS: Albumin/Globulin Ratio 0.9 (1.1-1.8); Anion Gap 15.8 mEq/L (5.0-15.0); Bilirubin Total 0.7 mg/dL (0.2-1.0); Globulin 3.2 g/dL (2.3-3.5); Potassium 4.8 mEq/L (3.5-5.1); Protein, Total 6.2 g/dL (6.4-8.2)
[2024-01-30] MEDS: BUMETANIDE 1 MG TABLET PO SCH (08:25)
[2024-01-30] MEDS: GABAPENTIN 100 MG CAP PO SCH (08:26)
[2024-01-30] MEDS: lisinopriL 20 MG TAB PO SCH (08:26)
[2024-01-30] MEDS: TERAZOSIN HCL 1 MG CAP PO SCH (08:26)
[2024-01-30] MEDS: DOXAZOSIN 2 MG TAB PO SCH (08:26)
[2024-01-30] MEDS: LOSARTAN POTASSIUM 50 MG TABLET PO SCH (08:26)
[2024-01-30] MEDS: HYDRALAZINE HCL 10 MG TABLET PO SCH (08:26)
[2024-01-30] MEDS: METOPROLOL XL 100 MG TAB PO SCH (08:26)
[2024-01-30] MEDS: cloNIDine HCL 0.1 MG TAB PO SCH (08:27)
[2024-01-30] MEDS: CALCITROL 0.25 MCG CAP PO SCH (08:27)
[2024-01-30] MEDS: carvediloL 25 MG TAB PO SCH (08:27)
[2024-01-30] MEDS: NIFEDIPINE XL 60 MG TABLET PO SCH (08:27)
[2024-01-30] MEDS: HEPARIN 5000 UNIT/ML 1 ML VIAL SQ SCH (08:30)
[2024-01-30 08:49] LABS: Magnesium 2.2 mg/dL (1.6-2.4)
[2024-01-30] MEDS ORDERED: DIVALPROEX DR 500MG TAB PO SCH (09:00)
[2024-01-30] MEDS ORDERED: HOME MED 1 EA UNK (Losartan Potassium [Losartan Potassium] 100 MG Tablet) PO SCH (09:00)
--- NOTE | 2024-01-30 09:48 | P.PN ---
Subjective Date of Service: 01/30/24 Chief Complaint: Elevated blood pressure Subjective: No new changes <Gladys Donohue - Last Filed: 01/30/24 09:42> Date of Service: 01/30/24 <María Elena Rothman - Last Filed: 01/31/24 03:22> Physical Examination - Vital Signs Temperature: 98.5 F Blood Pressure: 178/106 Pulse: 80 Respirations: 17 Pulse Ox (%): 95 - Studies Laboratory Data (last 24 hrs) 01/29/24 01/29/24 01/29/24 19:31 18:23 18:23 WBC 6.30 Hgb 11.1 L Hct 34.4 L Plt Count 163 Sodium 130 L Potassium Cancelled 5.6 H BUN 41 H Creatinine 7.85 H Glucose 87 Magnesium 2.4 Total Bilirubin 0.9 AST 38 H ALT 33 Alkaline Phosphatase 77 <Jeanette Donohuey Cristian - Last Filed: 01/30/24 09:42> - Studies Laboratory Data (last 24 hrs) 01/29/24 19:31 Potassium Cancelled <María Elena Rothman - Last Filed: 01/31/24 03:22> Assessment And Plan - Plan Assessment and Plan - Problems (Diagnosis) (1) Hypertensive urgency Current Visit: No Status: Acute Plan: Hypertensive urgency Antihypertensives titrated Hydralazine as needed Continue home medications and titrate as needed Monitor closely on telemetry Intractable pain in right flanks Post neuropathy pain Started on gabapentin Monitor closely Hyperkalemia Will give Lokelma Monitor under telemetry 01/30/24 improved Hyperphosphatemia 01/30/24 Phoslo TID WM for phos of 8.0 ESRD on dialysis (//Tue)/s/p renal transplant removal Nephrology consulted (Dr. Lambert) Fluid overload Started on diuretics Seizure disorder Continue home medications GI/DVT prophylaxis Advanced directive full code <Gladys Donohuelen - Last Filed: 01/30/24 09:42> Date of Service: 01/30/24 Chart has been reviewed. Events of the last 24 hours have been noted. Case discussed with KARI. I performed a substantial part of the MDM during this patient's care today. I personally made or approved the documented management plan and acknowledge its risk of complications. I agree with the findings and documentation provided in the KARI's notes At this time anticipate discharge after hemodialysis in the morning. <María Elena Rothman - Last Filed: 01/31/24 03:22>
--- NOTE | 2024-01-30 12:29 | EKG ---
Test Date: 2024-01-29 Test Time: 18:10:35 General Clerk: OSIRIS MEASUREMENT RESULTS: Intervals: Rate: 83 NJ: 158 QRSD: 88 QT: 370 QTc: 434 Holliday: P: 44 NJ: 158 QRS: -70 T: 75 INTERPRETIVE STATEMENTS: Normal sinus rhythm Left anterior fascicular block Septal infarct, age undetermined Abnormal ECG Compared to ECG 01/20/2024 16:22:41 Sinus tachycardia no longer present Incomplete right bundle-branch block no longer present Left ventricular hypertrophy no longer present Early repolarization no longer present Myocardial infarct finding still present Electronically Signed On 01-30-24 12:28:35 CDT by Andres Uribe
[2024-01-30] MEDS: CALCIUM ACETATE 667 MG TAB PO SCH (13:08)
[2024-01-30] MEDS: atenoloL 25 MG TAB PO SCH (22:48)
[2024-01-31] MEDS: HYDRALAZINE HCL 25 MG TABLET PO SCH (08:03)
[2024-01-31] MEDS: LOSARTAN POTASSIUM 50 MG TABLET PO SCH (08:03)
[2024-01-31] MEDS: CLONIDINE HCL 0.3 MG TAB PO SCH (08:03)
[2024-01-31] MEDS: NIFEDIPINE XL 90 MG TABLET PO SCH (08:04)
[2024-01-31 08:12] VITALS: O2SAT 92
--- NOTE | 2024-01-31 11:04 | P.CNS ---
Date of Consult: 01/31/24 Reason for Consult: ESRD, malignant HTN, hyperkalemia Requesting Physician: Waldemar Llamas Chief Complaint: Elevated blood pressure History of Present Illness: Pt is a 33-year-old female with complication past medical history including that of renal transplantation, LURKT in late with complicated course, episodes of rejection early on, allograft dysfunction, YOKASTA episodes and dialysis dependence again earlier this year. She has malignant HTN and in the setting of on going pain over renal transplant and concern for possible sympathetic driven HTN, she underwent transplant nephrectomy. She has had a hx of non compliance, missed HD, labile BP and other in the past few months. Pt reports she feels sick on or post HD on many sessions depending on how much UF removed and other. Pt has had several admissions here in January, pt returns now for post herpetic neuralgia across Rt lower ribs, reports pain severe and not responding to topicals, other. Allergies sulfamethoxazole [From Bactrim] Allergy (Verified 10/27/23 00:24) Itching/Hives/Rash trimethoprim [From Bactrim] Allergy (Verified 10/27/23 00:24) Itching/Hives/Rash Home Medications: Furosemide [Lasix*] 40 mg PO DAILYPRN PRN 10/24/23 Losartan Potassium 1 tab PO DAILY 10/24/23 Clonidine Patch [Catapres-Tts 3*] 0.3 mg TD EVERY 7TH DAY 30 Days #1 box 01/23/24 Bumetanide 3 mg PO BID 01/30/24 Butalb/Acetaminophen/Caffeine [Xyoyno-Ewehlzrb-Igkw 50-325-40] 1 each PO Q6HR PRN 01/30/24 Calcitrol [Rocaltrol] 0.25 mcg PO DAILY 01/30/24 Carvedilol [Coreg] 25 mg PO BID 01/30/24 Dapsone [Dapsone*] 100 mg PO DAILY 01/30/24 Hydralazine HCl 10 mg PO Q8HR 01/30/24 Lisinopril [Zestril] 20 mg PO DAILY 01/30/24 Metoprolol Succinate [Toprol Xl] 100 mg PO DAILY 01/30/24 Nifedipine [Procardia Xl] 60 mg PO BID 01/30/24 Ondansetron [Zofran (Odt)*] 4 mg PO Q12H PRN 01/30/24 Terazosin HCl 2 mg PO BID 01/30/24 - Past Medical/Surgical History Diabetic: No -: Hypertension -: ESRD (Dr. Wills/ [facility] A) -: Seizures (as a child) -: Brain tumor -: Asthma -: Csection x2 -: Brain Sx -: Kidney Transplant Nephrectomy/transplant was removed recently Psychosocial/ Personal History: Lives at home - Social History Smoking Status: Unknown if ever smoked Alcohol use: No CD- Drugs: No Caffeine use: No Place of Residence: Home Review of Systems General: As per HPI Eyes: Unremarkable ENT: Unremarkable Respiratory: Unremarkable Cardiovascular: As per HPI Gastrointestinal: Nausea Genitourinary: Unremarkable Musculoskeletal: As per HPI Integumentary: As per HPI Neurological: Unremarkable Lymphatics: Unremarkable Physical Examination Temp Pulse Resp BP Pulse Ox 97.1 F 66 12 127/78 97 01/31/24 08:00 01/31/24 10:31 01/31/24 08:00 01/31/24 10:31 01/31/24 08:00 General: Alert, In no apparent distress, Cooperative HEENT: Atraumatic, Normocephalic Respiratory: Normal air movement, Other (Non tachypnec) Cardiovascular: No edema, Regular rate/rhythm Gastrointestinal: Non-distended, No tenderness, No guarding Musculoskeletal: No contractures Integumentary: No rashes Neurological: Normal speech, Normal tone, Normal affect Conclusions/Impression: A/P) 1. 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 HD today per OP TTS schedule. Pt was not interested in running extra treatment yesterday 2. Hyperkalemia resolved with medical therapy, will perform HD with low K bath 3. Malignant HTN with possible secondary HTN due to renal disorder, other -BP improved with pain control and receiving multiple agents here which she states she also takes at home and tolerates although labile BP has been recorded at her dialysis unit 4. No signs of gross hypervolemia, reviewed recent weights and will target UF of 1.5-2L today 5. Post herpetic neuralgia -pt claims currently only IV dilaudid helping with pain but would limit/avoid opiate narcotics and review renally dosed anticonvulsants (can switch Gabapentin to Lyrica) along with antidepressant class and topicals to manage. Will defer to IM to manage
--- NOTE | 2024-01-31 13:31 | P.DS ---
Admission Date: 01/29/24 Discharge Date: 01/31/24 Reason for Admission: Elevated blood pressure Consultations: Dr. Lambert Procedures: Dialysis Brief History of Present Illness: 33-year-old female with past medical history of Hypertension, ESRD, seizures, brain tumor , asthma, h/o kidney transplant/ nephrectomy, brought to ER with elevated blood pressure and intractable pain in the right flanks consistent with neuropathy . Patient states that she has been recovering from shingles on right flanks and started having extreme pain due to shingles . Denies any chest pain or shortness of breath. No dizziness or presyncopal episodes. Patient is on hemodialysis followed by . She complains of headache and generalized body pain is noted to have blood pressure of 240/120 Hospital Course: Ms. Lopez is a 33-year-old with malignant hypertension who has been admitted several times over the past month. She has dialysis Tuesday, , and Saturdays. She has intractable pain to the right flank status post herpes zoster. Many topical and prescription medications have been ineffective. She was readmitted for hypertensive urgency on 01/29/2024. Dr. Lambert was consulted and offered extra course of dialysis yesterday; however, Ms. Lopez refused. This morning Ms. Lopez blood pressure was better than I have ever seen it at 127/78, she states she slept, and the gabapentin she received yesterday had decreased her pain. She will go to dialysis today and then be discharged home with Lyrica, Pepcid, Duloxetine, and continuation of her regular medications. She will need to see her PCP and nephrology in follow-up. <Gladys Donohue - Last Filed: 01/31/24 13:53> Admission Date: 01/29/24 Discharge Date: 01/31/24 Hospital Course: Pt seen and examined. I agree with the note by the PIN DRAFTING MACHINE OPERATOR. BP is within normal range. Ok to discharge pt after dialysis. <Reg Medina - Last Filed: 01/31/24 15:20> Disposition: ROUTINE DISCHARGE Discharge Condition: GOOD Vital Signs/Physical Exam: Temp Pulse Resp BP Pulse Ox 97.9 F 61 12 116/65 94 01/31/24 11:00 01/31/24 11:00 01/31/24 11:00 01/31/24 11:00 01/31/24 11:00 General: Alert, In no apparent distress, Oriented x3 HEENT: Atraumatic, Normocephalic Neck: Supple Respiratory: Normal air movement Cardiovascular: Other (left av fistula with pseudoaneurysm), Abnormal S1 S2, Abnormal S4, Systolic murmur Capillary refill: <2 Seconds Gastrointestinal: Soft and benign Musculoskeletal: No swelling Integumentary: No rashes Neurological: Normal speech, Normal tone, Normal affect Lymphatics: No axilla or inguinal lymphadenopathy External genitalia: Deferred Rectal: Deferred Laboratory Data at Discharge: WBC 6.70 thou/uL (4.3-10.9) 01/30/24 06:49 Hgb 9.8 g/dL (12.0-15.0) L D 01/30/24 06:49 Hct 30.5 % (36.0-45.0) L 01/30/24 06:49 Plt Count 176 thou/uL (152-406) 01/30/24 06:49 Sodium 132 mEq/L (136-145) L 01/30/24 06:49 Potassium 4.8 mEq/L (3.5-5.1) D 01/30/24 06:49 BUN 47 mg/dL (7-18) H 01/30/24 06:49 Creatinine 8.75 mg/dL (0.55-1.02) H 01/30/24 06:49 Glucose 109 mg/dL (74-106) H 01/30/24 06:49 Phosphorus 8.0 mg/dL (2.5-4.9) H 01/30/24 06:49 Magnesium 2.2 mg/dL (1.6-2.4) 01/30/24 06:49 Total Bilirubin 0.7 mg/dL (0.2-1.0) 01/30/24 06:49 AST 68 U/L (15-37) H 01/30/24 06:49 ALT 57 U/L (13-56) H 01/30/24 06:49 Alkaline Phosphatase 65 U/L (45-117) 01/30/24 06:49 <Donohue,Gladys Cristian - Last Filed: 01/31/24 13:53> Vital Signs/Physical Exam: Temp Pulse Resp BP Pulse Ox 97.9 F 66 14 120/75 95 01/31/24 14:49 01/31/24 14:49 01/31/24 14:49 01/31/24 14:49 01/31/24 14:49 Laboratory Data at Discharge: WBC 6.70 thou/uL (4.3-10.9) 01/30/24 06:49 Hgb 9.8 g/dL (12.0-15.0) L D 01/30/24 06:49 Hct 30.5 % (36.0-45.0) L 01/30/24 06:49 Plt Count 176 thou/uL (152-406) 01/30/24 06:49 Sodium 132 mEq/L (136-145) L 01/30/24 06:49 Potassium 4.8 mEq/L (3.5-5.1) D 01/30/24 06:49 BUN 47 mg/dL (7-18) H 01/30/24 06:49 Creatinine 8.75 mg/dL (0.55-1.02) H 01/30/24 06:49 Glucose 109 mg/dL (74-106) H 01/30/24 06:49 Phosphorus 8.0 mg/dL (2.5-4.9) H 01/30/24 06:49 Magnesium 2.2 mg/dL (1.6-2.4) 01/30/24 06:49 Total Bilirubin 0.7 mg/dL (0.2-1.0) 01/30/24 06:49 AST 68 U/L (15-37) H 01/30/24 06:49 ALT 57 U/L (13-56) H 01/30/24 06:49 Alkaline Phosphatase 65 U/L (45-117) 01/30/24 06:49 <Reg Medina - Last Filed: 01/31/24 15:20> Diet: Renal Activity: Ad jose luis <Donohue,Gladys Cristian - Last Filed: 01/31/24 13:53> <Reg Medina - Last Filed: 01/31/24 15:20> Home Medications: Furosemide [Lasix*] 40 mg PO DAILYPRN PRN 10/24/23 Losartan Potassium 1 tab PO DAILY 10/24/23 Clonidine Patch [Catapres-Tts 3*] 0.3 mg TD EVERY 7TH DAY 30 Days #1 box 01/23/24 Bumetanide 3 mg PO BID 01/30/24 Butalb/Acetaminophen/Caffeine [Vsjews-Xprmrtpt-Ipjt 50-325-40] 1 each PO Q6HR PRN 01/30/24 Calcitrol [Rocaltrol*] 0.25 mcg PO DAILY 01/30/24 Carvedilol [Coreg] 25 mg PO BID 01/30/24 Dapsone [Dapsone*] 100 mg PO DAILY 01/30/24 Hydralazine HCl 10 mg PO Q8HR 01/30/24 Lisinopril [Zestril] 20 mg PO DAILY 01/30/24 Metoprolol Succinate [Toprol Xl] 100 mg PO DAILY 01/30/24 Nifedipine [Procardia Xl] 60 mg PO BID 01/30/24 Ondansetron [Zofran (Odt)*] 4 mg PO Q12H PRN 01/30/24 Terazosin HCl 2 mg PO BID 01/30/24 Duloxetine [Cymbalta *] 20 mg PO DAILY 60 Days #60 cap 01/31/24 Famotidine 20 mg PO DAILY 30 Days #30 tab 01/31/24 Pregabalin [Lyrica] 50 mg PO BID 10 Days #20 cap 01/31/24 New Medications: Duloxetine [Cymbalta *] 20 mg PO DAILY 60 Days #60 cap Famotidine 20 mg PO DAILY 30 Days #30 tab Pregabalin [Lyrica] 50 mg PO BID 10 Days #20 cap Physician Discharge Instructions: Ms. Lopez is a 33-year-old with malignant hypertension who has been admitted several times over the past month. She has dialysis Tuesday, , and Saturdays. She has intractable pain to the right flank status post herpes zoster. Many topical and prescription medications have been ineffective. She was readmitted for hypertensive urgency on 01/29/2024. Dr. Lambert was consulted and offered extra course of dialysis yesterday; however, Ms. Lopez refused. This morning Ms. Lopez blood pressure was better than I have ever seen it at 127/78, she states she slept, and the gabapentin she received yesterday had decreased her pain. She will go to dialysis today and then be discharged home with Lyrica, Pepcid, duloxetine and continuation of her regular medications. She will need to see her PCP and nephrology and follow-up. Echocardiogram completed yesterday. No report available at this time. OK TO DC IV AND DC HOME FOLLOW-UP WITH PRIMARY CARE PROVIDER IN 1-2 WEEKS FOLLOW-UP WITH Nephrology IN 1-2 WEEKS RETURN TO THE ER IF symptoms worsens CALL DR. ALVAREZ AT [phone] IF ANY QUESTIONS REGARDING HOSPITAL STAY. PLEASE CALL THE FLOOR AT [phone] IF ANY MEDICATION OR NURSING QUESTIONS. Followup: Alfa Lambert [ACTIVE - CAN ADMIT] - 1-2 Weeks NONE,NONE [Primary Care Provider] -
[2024-01-31 21:32] VITALS: BP 128/73; TEMP 98.4
--- NOTE | 2024-02-01 08:33 | ECHO ---
HEIGHT: 5 ft 1 in WEIGHT: 135 lb 1.6 oz DATE OF STUDY: 01/31/[address]: Gladys Donohue AFTER SCHOOL PROGRAM DIRECTOR-BC 2-DIMENSIONAL: YES M.MODE: YES DOPPLER: YES COLOR FLOW: YES TDS: PORTABLE: YES DEFINITY: BUBBLE STUDY: DIAGNOSIS: LOUD MURMUR CARDIAC HISTORY: CATHERIZATION: NO SURGERY: NO PROSTHETIC VALVE: NO PACEMAKER: NO MEASUREMENTS (cm) DIASTOLIC (NORMALS) SYSTOLIC (NORMALS) IVSd 1.3 (0.6-1.2) LA Diam 4.8 (1.9-4.0) LVEF 58% LVIDd 4.7 (3.5-5.7) LVIDs 3.3 (2.0-3.5) %FS 30% LVPWd 1.4 (0.6-1.2) Ao Diam 2.8 (2.0-3.7) 2 DIMENSIONAL ASSESSMENT: RIGHT ATRIUM: NORMAL LEFT ATRIUM: NORMAL RIGHT VENTRICLE: NORMAL LEFT VENTRICLE: NORMAL TRICUSPID VALVE: MILD TRICUSPID REGURGITATION MITRAL VALVE: MILD MITRAL REGURGITATION PULMONIC VALVE: NORMAL AORTIC VALVE: NORMAL PERICARDIAL EFFUSION: NONE AORTIC ROOT: NORMAL LEFT VENTRICULAR WALL MOTION: NORMAL DOPPLER/COLOR FLOW: NORMAL COMMENTS: 1. NORMAL LEFT VENTRICULAR SYSTOLIC FUNCTION, EJECTION FRACTION 60-65%, NORMAL WALL MOTION 2. NORMAL DIASTOLIC FUNCTION 3. MILD MITRAL REGURGITATION 4. MILD TRICUSPID REGURGITATION 5. MILD PULMONARY HYPERTENSION (RIGHT VENTRICULAR SYSTOLIC PRESSURE 35-40 mmHg) TECHNOLOGIST: MARY HAN
[2024-02-01] MEDS ORDERED: LIDOCAINE 4% PATCH TOP SCH (09:00)
[2024-02-04] MEDS ORDERED: CLONIDINE 0.3 MG/PATCH TD SCH (09:00)
== END 2024-01-31 20:00 | disposition home or self-care (01) | DRG 304 ==
LOC: ER 17:13 → ERHOLD 21:21 → 2ND 22:42
PROVIDERS: ADMIT Family Medicine; ATTEND Hospitalist
PROC: 5A1D70Z Performance of Urinary Filtration, Intermittent, Less than 6 Hours Per Day (ICD-10-PCS; principal; 2024-01-29)
DX: I16.0 Hypertensive urgency (principal); N18.6 End stage renal disease; Z94.0 Kidney transplant status; I12.0 Hypertensive chronic kidney disease with stage 5 chronic kidney disease or end stage renal disease; E87.5 Hyperkalemia; G89.29 Other chronic pain; G62.9 Polyneuropathy, unspecified; E83.39 Other disorders of phosphorus metabolism; G40.909 Epilepsy, unspecified, not intractable, without status epilepticus; B02.9 Zoster without complications; Z90.5 Acquired absence of kidney; Z99.2 Dependence on renal dialysis; Z88.1 Allergy status to other antibiotic agents; Z91.018 Allergy to other foods; Z79.899 Other long term (current) drug therapy; Z91.048 Other nonmedicinal substance allergy status; Z91.158 Patient's noncompliance with renal dialysis for other reason
CPT/HCPCS: 36415; 71045; 80048; 80053; 80076; 83735; 83880; 84100; 84484; 85025; 90935; 93005; 93306; 94760; 96374; 96375; 99285; J0360; J1644; J1940; J2405; J3010; J7613

== ENCOUNTER 2024-02-09 01:06 | Emergency (ER) | payer OTHER ==
--- NOTE | 2024-02-09 01:52 | ER ---
Nurse's Notes [facility] Name: Shaun Lopez Age: 33 yrs Sex: Female : 1990 Arrival Date: 02/09/2024 Time: 01:06 Bed 3 Private MD: Diagnosis: Chronic pain, neuralgia Presentation: 02/08 01:37 Chief complaint: Patient states: I had a shingles rash from november to December. The rash has jb4 gotten better but the pain has not gone away. Coronavirus screen: At this time, the client does not indicate any symptoms associated with coronavirus-19. Ebola Screen: No symptoms or risks identified at this time. Initial Sepsis Screen: Does the patient meet any 2 criteria? No. Patient's initial sepsis screen is negative. Does the patient have a suspected source of infection? No. Patient's initial sepsis screen is negative. Risk Assessment: Do you want to hurt yourself or someone else? Patient reports no desire to harm self or others. Onset of symptoms was February 09, 2024. Transition of care: patient was not received from another setting of care. 01:37 Method Of Arrival: Ambulatory jb4 01:37 Acuity: VERNA 4 jb4 Triage Assessment: 01:59 General: Appears in no apparent distress. Behavior is calm, cooperative. Pain: kd3 Complains of pain in back. Neuro: Level of Consciousness is awake, alert, obeys commands, Oriented to person, place, time, situation. Cardiovascular: Patient's skin is warm and dry. Respiratory: Airway is patent Trachea midline Respiratory effort is even, unlabored, Respiratory pattern is regular, symmetrical. Historical: - Allergies: 01:39 Adhesives; jb4 01:39 AVOCADO (LAURUS PERSEA); jb4 01:39 Bactrim; jb4 - PMHx: 01:39 Hypertension; brain tumor-removed; End stage renal disease; Migraines; Seizures; jb4 Dialysis; - PSHx: 01:39 section; brain SX x 2; donor kidney removed; Fistula- L arm; kidney biopsy; jb4 kidney transplant; - Immunization history:: Adult Immunizations up to date. - Infectious Disease History:: Denies. - Social history:: Smoking status: . Screenin:[facility] ED Fall Risk Assessment (Adult) History of falling in the last 3 months, kd3 including since admission No falls in past 3 months (0 pts) Confusion or Disorientation No (0 pts) Intoxicated or Sedated No (0 pts) Impaired Gait No (0 pts) Mobility Assist Device Used No (0 pt) Altered Elimination No (0 pt) Score/Fall Risk Level 0 - 2 = Low Risk Oriented to surroundings. Abuse screen: Denies threats or abuse. Denies injuries from another. Nutritional screening: No deficits noted. Tuberculosis screening: No symptoms or risk factors identified. Vital Signs: 01:24 BP 186 / 120; Pulse 82; Resp 17; Temp 97.8; Pulse Ox 99% on R/A; Weight 61.69 kg; vk Height 5 ft. 1 in. ; 01:52 BP 160 / 103; Pulse 88; Resp 16; Pulse Ox 99% on R/A; kd3 01:24 Body Mass Index 25.70 (61.69 kg, 154.94 cm) vk ED Course: 01:13 Patient arrived in ED. gm2 01:18 Denia Hassan MD is Attending Physician. sp3 01:39 Triage completed. jb4 01:39 Arm band placed on right wrist. jb4 01:51 Zara Pham RN is Primary Nurse. kd3 02:00 Patient has correct armband on for positive identification. Provided Education on: kd3 Gabapentin . 02:01 No provider procedures requiring assistance completed. Patient did not have IV access br2 during this emergency room visit. Administered Medications: 01:57 Drug: Gabapentin PO 600 mg PO once Route: PO; kd3 02:03 Follow up: Response: No adverse reaction br2 Medication: 02:00 VIS not applicable for this client. kd3 Outcome: 01:52 Discharge ordered by . sp3 02:01 Discharged to home ambulatory, br2 02:01 Condition: stable 02:01 Discharge instructions given to patient, Instructed on discharge instructions, follow up and referral plans. medication usage, Demonstrated understanding of instructions, follow-up care, medications, Prescriptions given X 1, 02:03 Patient left the ED. br2 Signatures: Terry Allan, RN RN jb4 Denia Hassan MD MD sp3 Zara Pham RN RN kd3 [place] gm2 Safia Ni Belinda, RN RN br2
--- NOTE | 2024-02-09 01:52 | EDPHYS ---
Physician Documentation [facility] Name: Shaun Lopez Age: 33 yrs Sex: Female : 1990 Arrival Date: 02/09/2024 Time: 01:06 Bed 3 Private MD: ED Physician Denia Hassan HPI: 02/08 01:49 This 33 yrs old Female presents to ER via Ambulatory with complaints of Flank Pain. sp3 01:49 33-year-old female with a history of hypertension, end-stage renal disease, seizures on sp3 dialysis Tuesday now presents to the ED with continued "nerve pain" from prior varicella-zoster infection on the right torso. Patient is been on gabapentin multiple times. She denies any fever, chest pain, shortness of breath, abdominal pain, vomiting, diarrhea, bleeding, any other signs or symptoms on ROS at this time.. Historical: - Allergies: 01:39 Adhesives; jb4 01:39 AVOCADO (LAURUS PERSEA); jb4 01:39 Bactrim; jb4 - PMHx: 01:39 Hypertension; brain tumor-removed; End stage renal disease; Migraines; Seizures; jb4 Dialysis; - PSHx: 01:39 section; brain SX x 2; donor kidney removed; Fistula- L arm; kidney biopsy; jb4 kidney transplant; - Immunization history:: Adult Immunizations up to date. - Infectious Disease History:: Denies. - Social history:: Smoking status: . ROS: 01:50 Constitutional: Negative for fever, chills, and weight loss, Eyes: Negative for injury, sp3 pain, redness, and discharge, ENT: Negative for injury, pain, and discharge, Neck: Negative for injury, pain, and swelling, Cardiovascular: Negative for chest pain, palpitations, and edema, Respiratory: Negative for shortness of breath, cough, wheezing, and pleuritic chest pain, MS/Extremity: Negative for injury and deformity, Psych: Negative for depression, anxiety, suicide ideation, homicidal ideation, and hallucinations, Allergy/Immunology: Negative for hives, rash, and allergies, Endocrine: Negative for neck swelling, polydipsia, polyuria, polyphagia, and marked weight changes, Hematologic/Lymphatic: Negative for swollen nodes, abnormal bleeding, and unusual bruising, 01:50 All other systems are negative, Exam: 01:50 Constitutional: This is a well developed, well nourished patient who is awake, alert, sp3 and in no acute distress. Head/Face: Normocephalic, atraumatic. Eyes: Pupils equal round and reactive to light, extra-ocular motions intact. Lids and lashes normal. Conjunctiva and sclera are non-icteric and not injected. Cornea within normal limits. Periorbital areas with no swelling, redness, or edema. Neck: Trachea midline, no thyromegaly or masses palpated, and no cervical lymphadenopathy. Supple, full range of motion without nuchal rigidity, or vertebral point tenderness. No Meningismus. Chest/axilla: Normal chest wall appearance and motion. Nontender with no deformity. No lesions are appreciated. Cardiovascular: Regular rate and rhythm with a normal S1 and S2. No gallops, murmurs, or rubs. Normal PMI, no JVD. No pulse deficits. Respiratory: Lungs have equal breath sounds bilaterally, clear to auscultation and percussion. No rales, rhonchi or wheezes noted. No increased work of breathing, no retractions or nasal flaring. Abdomen/GI: Soft, non-tender, with normal bowel sounds. No distension or tympany. No guarding or rebound. No evidence of tenderness throughout. Back: No spinal tenderness. No costovertebral tenderness. Full range of motion. MS/ Extremity: Pulses equal, no cyanosis. Neurovascular intact. Full, normal range of motion. Neuro: Awake and alert, GCS 15, oriented to person, place, time, and situation. Cranial nerves II-XII grossly intact. Motor strength 5/5 in all extremities. Sensory grossly intact. Cerebellar exam normal. Normal gait. Psych: Awake, alert, with orientation to person, place and time. Behavior, mood, and affect are within normal limits. 01:50 Skin: Scarring noted from prior zoster infection on the right abdomen extending around to the right flank. No active vesicles noted.. Vital Signs: 01:24 BP 186 / 120; Pulse 82; Resp 17; Temp 97.8; Pulse Ox 99% on R/A; Weight 61.69 kg; vk Height 5 ft. 1 in. ; 01:52 BP 160 / 103; Pulse 88; Resp 16; Pulse Ox 99% on R/A; kd3 01:24 Body Mass Index 25.70 (61.69 kg, 154.94 cm) vk MDM: 01:23 Patient medically screened. sp3 01:51 Data reviewed: vital signs, nurses notes, old medical records. ED course: Chronic pain sp3 secondary to prior zoster infection. Will treat with gabapentin p.o. in ED and prescription as well. Clinically have ruled out sepsis, shock, or any other critical pathology.. Administered Medications: 01:57 Drug: Gabapentin PO 600 mg PO once Route: PO; kd3 02:03 Follow up: Response: No adverse reaction br2 Disposition Summary: 02/09/24 01:52 Discharge Ordered Notes: Location: Home sp3 Condition: Stable sp3 Diagnosis - Chronic pain, neuralgia sp3 Followup: sp3 - With: Private Physician - When: Upon discharge from the Emergency Department - Reason: Continuance of care Discharge Instructions: - Discharge Summary Sheet sp3 - Neuropathic Pain sp3 Forms: - Medication Reconciliation Form sp3 - Antibiotic Education sp3 - Prescription Opioid Use sp3 - Patient Portal Instructions sp3 - Leadership Thank You Letter sp3 Prescriptions: - gabapentin 300 mg Oral capsule - take 1 capsule ORAL route every 12 hours; 30 capsule; Refills: 0, Product sp3 Selection Permitted Signatures: Terry Allan RN RN jb4 Denia Hassan MD MD sp3 Zara Pham RN RN kd3 Carol Damon RN br2
[2024-02-09] MEDS ORDERED: GABAPENTIN 300 MG CAP ONE (01:56)
[2024-02-09 02:48] VITALS: TEMP 97.8; O2SAT 99
[2024-02-09 02:49] VITALS: BP 160/103
== END 2024-02-09 02:03 | disposition home or self-care (01) ==
LOC: ER 01:06
DX: G89.29 Other chronic pain (principal); M79.2 Neuralgia and neuritis, unspecified; I12.0 Hypertensive chronic kidney disease with stage 5 chronic kidney disease or end stage renal disease; N18.6 End stage renal disease; Z99.2 Dependence on renal dialysis; Z94.0 Kidney transplant status
CPT/HCPCS: 99283

== ENCOUNTER 2024-02-20 09:47 | Emergency (ER) | payer OTHER ==
[2024-02-20 10:42] LABS: Absolute Basophils 0.1 K/uL (0-0.5); Absolute Eosinophils 0.1 K/uL (0-0.5); Absolute Lymphocytes (CBC) 1.1 K/uL (0.7-4.9); Absolute Monocytes 0.5 K/uL (0.1-1.3); Absolute Neutrophil 5.1 K/uL (1.8-8.0); Basophils % 1.6 % (0-1.3); Eosinophils % 1.9 % (0-4.4); Hematocrit 32.4 % (36.0-45.0); Hemoglobin 10.4 g/dL (12.0-15.0); Lymphocytes % 15.8 % (15.3-44.8); MCH 28.4 pg (27.0-35.0); MCV 88.9 fL (80-100); MPV 8.4 fL (7.6-11.3); Monocytes % 6.7 % (3.3-12.3); Nucleated Red Blood Cells % 0.1 % (0-0); Platelets 194 thou/uL (152-406); RBC Red Blood Cell Count 3.65 M/uL (3.86-4.86); Red Cell Distribution Width 17.7 % (12.1-15.2)
--- NOTE | 2024-02-20 11:07 | RAD REPORT ---
EXAM DESCRIPTION: CT - Chest For Pe Angio - 02/20/2024 10:34 am CLINICAL HISTORY: DYSPNEA COMPARISON: Thorax Wo Con dated 05/18/2023; Chest Single View dated 01/29/2024 TECHNIQUE: Thin axial CT images of the chest were obtained following administration of iodinated co ntrast intravenously. Multiplanar reconstructions, and maximum intensity projection reconstructions w ere generated and reviewed. Exam utilizes a protocol for optimal evaluation of pulmonary arterial james e. All CT scans are performed using dose optimization technique as appropriate and may include automated exposure control or mA/KV adjustment according to patient size. FINDINGS: Pulmonary arteries are normal. No emboli or other suspicious finding. Mildly prominent aviva iber of the ascending thoracic aorta, 4.1 cm. No other acute or significant aorta findings. Moderate cardiomegaly Central predominant patchy alveolar and ground-glass opacities. Layering moderate right and small lef t pleural effusions. No pneumothorax. No abnormal mediastinal or hilar masses or lymphadenopathy seen. No chest wall mass or abnormal axill iary lymphadenopathy. [id number] diffuse body wall edema, and nonspecific mild edematous changes in the mediastinum a nd visualized upper abdomen retroperitoneum. IMPRESSION: No evidence of acute central pulmonary emboli. Moderate cardiomegaly. Central predominant patchy alveolar and ground-glass diffuse opacities with bi lateral effusions larger on the right. Findings suggest ongoing CHF. Mild fusiform aneurysmal dilation of the ascending thoracic aorta, 4.1 cm in caliber.
[2024-02-20] MEDS ORDERED: cloNIDine HCL 0.1 MG TAB ONE (11:09)
[2024-02-20] MEDS ORDERED: ONDANSETRON 4 MG/2 ML VIAL ONE (11:10)
[2024-02-20 11:19] LABS: Anion Gap 14.8 mEq/L (5.0-15.0); Magnesium 1.9 mg/dL (1.6-2.4); Potassium 4.8 mEq/L (3.5-5.1)
[2024-02-20 11:21] LABS: Troponin High Sensitivity 69.6 pg/mL (<58.9)
[2024-02-20] MEDS ORDERED: Nicardipine/NS 25 MG/250 ML KIT IV ONE (11:30)
--- NOTE | 2024-02-20 11:34 | EDPHYS ---
Physician Documentation [facility] Name: Shaun Lopez Age: 33 yrs Sex: Female : 1990 Arrival Date: 02/20/2024 Time: 09:47 Bed 20 Private MD: ED Physician Jm Stephens HPI: 02/19 10:35 This 33 yrs old Female presents to ER via Ambulatory with complaints of Breathing ms3 Difficulty. 10:35 33-year-old female with past medical history of ESRD, hypertension, seizures, migraines ms3 presents to the emergency department for shortness of breath that began last night. Patient endorses back pain. She states her discomfort is an 8/10 and feels as if she was punched in the back. Patient denies nausea, vomiting, dysuria, fevers, chills. She denies any alleviating or inciting factors.. Historical: - Allergies: 09:59 Adhesives; ll1 09:59 AVOCADO (LAURUS PERSEA); ll1 09:59 Bactrim; ll1 09:59 Latex, Natural Rubber; ll1 - PMHx: 09:59 End stage renal disease; Hypertension; Seizures; brain tumor-removed; Dialysis; ll1 Migraines; - PSHx: 09:59 brain SX x 2; section; donor kidney removed; Fistula- L arm; kidney biopsy; ll1 kidney transplant; - Immunization history:: Adult Immunizations up to date. - Infectious Disease History:: Denies. - Social history:: Smoking status: Patient denies any tobacco usage or history of. ROS: 10:35 Constitutional: Negative for fever, and chills. Neck: Negative for injury, pain, and ms3 swelling, Cardiovascular: Negative for chest pain, and palpitations. Abdomen/GI: Negative for abdominal pain, nausea, vomiting, diarrhea, and constipation, MS/Extremity: Negative for injury and deformity, Skin: Negative for injury, rash, and discoloration, 10:35 Respiratory: Positive for shortness of breath, 10:35 Back: Positive for pain at rest, Exam: 10:35 Constitutional: This is a well developed, well nourished patient who is awake, alert, ms3 and in no acute distress. Neck: Trachea midline, no cervical lymphadenopathy. Supple, full range of motion without nuchal rigidity, or vertebral point tenderness. No Meningismus. Chest/axilla: Normal chest wall appearance and motion. Nontender with no deformity. 10:35 Cardiovascular: Rate: tachycardic, Rhythm: regular, Pulses: no pulse deficits are appreciated, Heart sounds: normal, normal S1and S2, 11:43 ECG was reviewed by the Attending Physician. ms3 Vital Signs: 09:57 BP 224 / 157; Pulse 122; Resp 20; Temp 99.5(O); Pulse Ox 97% on R/A; Weight 61.23 kg; ll1 Height 5 ft. 1 in. ; Pain 7/10; 10:00 BP 223 / 153; Pulse 117; Resp 33; Pulse Ox 98% on 2 lpm NC; db 11:00 BP 224 / 158; Pulse 118; Resp 24; Pulse Ox 98% on 2 lpm NC; db 11:15 BP 214 / 153; Pulse 116; Resp 33; Pulse Ox 93% on R/A; db 11:30 BP 195 / 140; Pulse 154; Resp 30; Pulse Ox 98% on 2 lpm NC; db 11:45 BP 196 / 125; Pulse 114; Resp 24; Pulse Ox 100% on 2 lpm NC; db 12:00 BP 197 / 133; Pulse 112; db 12:15 BP 196 / 139; Pulse 117; Resp 24; Pulse Ox 96% on 2 lpm NC; db 12:30 BP 203 / 141; Pulse 118; db 12:35 Temp 101(O); db 12:45 BP 200 / 131; Pulse 109; db 13:00 BP 197 / 127; Pulse 110; Resp 24; db 13:15 BP 212 / 143; Pulse 111; db 13:30 BP 210 / 134; Pulse 109; Resp 24; db 13:45 BP 204 / 139; Pulse 111; db 14:00 BP 191 / 133; Pulse 119; db 14:15 BP 205 / 139; Pulse 123; db 14:30 BP 203 / 144; Pulse 117; Resp 24; Pulse Ox 90% on R/A; db 14:45 BP 199 / 145; Pulse 117; db 15:00 BP 201 / 140; Pulse 112; db 15:15 BP 183 / 126; Pulse 117; Resp 26; db 15:30 BP 174 / 113; Pulse 112; Resp 19; Pulse Ox 95% on 2 lpm NC; db 15:45 BP 193 / 122; Pulse 117; db 16:00 BP 183 / 124; Pulse 103; Resp 16; Pulse Ox 92% on R/A; db 16:15 BP 186 / 124; Pulse 102; Resp 16; db 16:30 BP 182 / 127; Pulse 102; Resp 18; Pulse Ox 93% on R/A; db 16:45 BP 193 / 130; Pulse 101; db 17:00 BP 177 / 128; Pulse 102; db 17:15 BP 177 / 121; Pulse 97; Resp 18; Temp 98.4(O); Pulse Ox 95% on 2 lpm NC; db 17:30 BP 189 / 125; Pulse 98; Resp 24; Pulse Ox 100% on 2 lpm NC; db 17:45 BP 206 / 157; Pulse 114; db 18:00 BP 206 / 144; Pulse 101; db 18:15 BP 206 / 155; db 09:57 Body Mass Index 25.51 (61.23 kg, 154.94 cm) ll1 09:57 Pain Scale: Adult ll1 11:15 PT REMOVED O2. MAP 171 db 11:30 MAP 154 db 11:45 MAP 145 db 12:00 MAP 151- CONTINUE TO HOLD NICARDIPINE DRIP db 12:15 map 155- CONTINUE TO HOLD NICARDIPINE DRIP db 12:30 MAP 159 db 12:45 MAP 152 db 13:00 MAP 148 db 13:15 MAP 163. NICARDIPINE DRIP RESTARTED db 13:30 MAP 155- NICARDIPINE DRIP DECREASED TO 1.25 MG. GOAL MAP 175-180 db 13:45 MAP 158 db 14:00 MAP 152 db 14:15 MAP 158 db 14:30 MAP 161. PT REMOVED NC 2L O2 db 14:45 MAP 162 db 15:00 MAP 158 db 15:15 MAP 142 db 15:30 MAP 132. NICARDIPINE PAUSED db 15:45 MAP 139 db 16:00 MAP 142 db 16:15 MAP 141 db 16:30 MAP 144 db 16:45 MAP 149 db 17:00 MAP 143 db 17:15 MAP 137 db 17:30 MAP MAP 145 db 17:45 MAP 169 db 18:00 MAP 163 RESTARTED NICARDIPINE 2.5 MG/HR db 18:15 MAP 169 db MDM: 10:05 Patient medically screened. ms3 11:43 Differential diagnosis: pneumonia, pulmonary edema, Hyperkalemia. Data reviewed: vital ms3 signs, nurses notes, lab test result(s), EKG, radiologic studies, and as a result, I will transfer. Consideration of Admission/Observation Will transfer. I considered the following discharge prescriptions or medication management in the emergency department Medications were administered in the Emergency Department. See MAR. Independent interpretation of the following test(s) in the Emergency Department EKG: See my EKG interpretation above. Care significantly affected by the following chronic conditions: Chronic Kidney Disease. Counseling: I had a detailed discussion with the patient and/or guardian regarding the historical points, exam findings, and any diagnostic results supporting the discharge/admit diagnosis, lab results, radiology results, the need to transfer to another facility, for higher level of care. ED course: Discussed aortic aneurysmal dilatation of aorta with patient. Patient placed on Cardene drip to reduce MAP approximately 20%. Will transfer patient to [facility] for higher level of care.. 11:58 Management of patient was discussed with the following: Dr Wetzel- she accepts to ICU. ED ms3 course: Discussed case with Dr Wetzel and she accepts patient to ICU.. 02/19 10:06 Order name: Basic Metabolic Panel; Complete Time: 11:23 ms3 02/19 10:06 Order name: CBC with Diff; Complete Time: 11:02 ms3 02/19 10:06 Order name: Magnesium; Complete Time: 11:23 ms3 02/19 10:06 Order name: Troponin HS; Complete Time: 11:23 ms3 02/19 10:06 Order name: CT Chest For PE Angio; Complete Time: 11:16 ms3 02/19 10:06 Order name: EKG; Complete Time: 10:07 ms3 02/19 10:06 Order name: Cardiac monitoring; Complete Time: 10:33 ms3 02/19 10:06 Order name: EKG - Nurse/Tech; Complete Time: 11:05 ms3 02/19 10:06 Order name: IV Saline Lock; Complete Time: 10:33 ms3 02/19 10:06 Order name: Labs collected and sent; Complete Time: 10:33 ms3 02/19 10:06 Order name: O2 Per Protocol; Complete Time: 11:05 ms3 02/19 10:06 Order name: O2 Sat Monitoring; Complete Time: 11:05 ms3 02/19 11:22 Order name: Misc. Order: Cardene goal MAP 175-180; Complete Time: 11:37 ms3 EC:43 Rate is 120 beats/min. Rhythm is regular. QRS [place] is Normal. CO interval is normal. ms3 QRS interval is normal. Clinical impression: Sinus tachycardia. Interpreted by me. Reviewed by me. Administered Medications: 11:18 Drug: cloNIDine PO 0.1 mg PO once Route: PO; db 12:25 Follow up: Response: No adverse reaction db 11:18 Drug: Ondansetron IVP 4 mg IVP once; over 2 minutes Route: IVP; Site: right antecubital;db 12:25 Follow up: Response: No adverse reaction; Nausea is decreased db 11:33 Drug: niCARdipine IV 5 mg/hr IV at calculated rate See Administration Instructions; db (Standard concentration 25 mg / 250 mL NS); Recommended max rate 15 mg/hr; Titrate 2.5 mg/hr as often as every 15 minutes to achieve goal (see titration policy) {Note: dose double checked on pump by Mayra Mari RN.} Route: IV; Rate: calculated rate; Site: right forearm; 11:47 Follow up: Rate change 2.5 Titrate; TITRATED TO 2.5 MG/HR db 11:55 Follow up: Rate change Titrate; MAP 145. MEDICATION PAUSED FOR 10 MINUTES db 12:00 Follow up: CONTINUE TO PAUSE NICARDIPINE DRIP db 12:15 Follow up: CONTINUE TO PAUSE NICARDIPINE DRIP. MAP 155 db 13:15 Follow up: Rate change 2.5 Titrate; MAP 163. NICARDIPINE DRIP RESTARTED db 13:30 Follow up: Rate change 1.25 Titrate; TITRATED DOWN TO 1.25 MG/HR. MAP 155 db 14:30 Follow up: Rate change 2.5 Titrate; MAP 161, BP 203/144. GOAL MAP 175-180 db 15:53 Follow up: Rate change Titrate; MAP 132 MEDICATION PAUSED db 18:00 Follow up: Rate change 2.5 Titrate; MAP 163 NICARDIPINE STARTED 2.5 MG/HR db 18:27 Follow up: Response: No adverse reaction; IV Status: Infusion continued upon transfer db Disposition: 11:58 Critical Care:. ms3 Disposition Summary: 02/20/24 11:34 Transfer Ordered Notes: Transfer Location: [facility] ms3 Reason: Higher level of care ms3 Condition: Stable ms3 Problem: new ms3 Symptoms: are unchanged ms3 Accepting Physician: (02/20/24 18:28) db Diagnosis - Acute pulmonary edema ms3 - End stage renal disease ms3 - Aortic aneurysmal dilitation ms3 - Hypertensive emergency ms3 Forms: - Medication Reconciliation Form ms3 - SBAR form ms3 Critical care time excluding procedures: 11:58 Critical care time: Bedside Care: 40 minutes, Consultation: 5 minutes. Total time: 45 ms3 minutes Signatures: Dispatcher [employer] EDMS Diego Mari, RN RN ll1 Jm Stephens DO DO ms3 Ingris Rivera RN RN db Corrections: (The following items were deleted from the chart) 10:07 10:07 BASIC METABOLIC PANEL+C.LAB.BRZ ordered. EDMS EDMS 10:07 10:07 CBC+H.LAB.BRZ ordered. EDMS EDMS 10:07 10:07 MAGNESIUM+C.LAB.BRZ ordered. EDMS EDMS 10:07 10:07 Troponin High Sensitivity+C.LAB.BRZ ordered. EDMS EDMS 18:28 11:34 ms3 db
--- NOTE | 2024-02-20 11:34 | ER ---
Nurse's Notes [facility] Name: Shaun Lopez Age: 33 yrs Sex: Female : 1990 Arrival Date: 02/20/2024 Time: 09:47 Bed 20 Private MD: Diagnosis: Acute pulmonary edema;End stage renal disease;Aortic aneurysmal dilitation;Hypertensive emergency Presentation: 02/19 09:57 Chief complaint: Patient states: SOB began last night. Denies cough/fever. + nausea ll1 upon arrival to room. Coronavirus screen: Client denies travel out of the [place] in the last 14 days. cough unrelated to allergies, difficulty breathing, nausea, shortness of breath, Client presents with at least one sign or symptom that may indicate coronavirus-19. Standard/surgical mask placed on the client. Ebola Screen: Patient denies travel to an Ebola-affected area in the 21 days before illness onset. Initial Sepsis Screen: Does the patient meet any 2 criteria? No. Patient's initial sepsis screen is negative. Does the patient have a suspected source of infection? No. Patient's initial sepsis screen is negative. Risk Assessment: Do you want to hurt yourself or someone else? Patient reports no desire to harm self or others. Onset of symptoms was February 19, 2024. 09:57 Method Of Arrival: Ambulatory ll1 09:57 Acuity: VERNA 2 ll1 Triage Assessment: 10:00 General: Appears distressed, uncomfortable, Behavior is calm, cooperative, appropriate ll1 for age. Pain: Complains of pain in low back Quality of pain is described as aching. Respiratory: Reports shortness of breath cough that is Onset: The symptoms/episode began/occurred yesterday, the patient has moderate shortness of breath. Musculoskeletal: Reports low back pain. Historical: - Allergies: 09:59 Adhesives; ll1 09:59 AVOCADO (LAURUS PERSEA); ll1 09:59 Bactrim; ll1 09:59 Latex, Natural Rubber; ll1 - PMHx: 09:59 End stage renal disease; Hypertension; Seizures; brain tumor-removed; Dialysis; ll1 Migraines; - PSHx: 09:59 brain SX x 2; section; donor kidney removed; Fistula- L arm; kidney biopsy; ll1 kidney transplant; - Immunization history:: Adult Immunizations up to date. - Infectious Disease History:: Denies. - Social history:: Smoking status: Patient denies any tobacco usage or history of. Screenin:04 [facility] ED Fall Risk Assessment (Adult) History of falling in the last 3 months, db including since admission No falls in past 3 months (0 pts) Confusion or Disorientation No (0 pts) Intoxicated or Sedated No (0 pts) Impaired Gait No (0 pts) Mobility Assist Device Used No (0 pt) Altered Elimination No (0 pt) Score/Fall Risk Level 0 - 2 = Low Risk Oriented to surroundings, Maintained a safe environment. Abuse screen: Denies threats or abuse. Denies injuries from another. Nutritional screening: No deficits noted. Tuberculosis screening: No symptoms or risk factors identified. Assessment: 09:50 Reassessment: PATIENT O2 86% ON ROOM AIR. PLACED ON NC 2L. NOTIFIED DR. CHUNG. PT db RESPIRATIONS 30. 10:00 Reassessment:. db 10:05 Reassessment: CALLED CT FOR SCAN. db 11:25 Neuro: Level of Consciousness is awake, alert, obeys commands, Oriented to person, db place, time. Cardiovascular: Capillary refill < 3 seconds Rhythm is regular. Respiratory: Airway is patent Respiratory effort is even, unlabored, Breath sounds are clear bilaterally. 11:48 Reassessment: NICARDIPINE TITRATED TO 2.5 MG/HR. BP 195/140 MAP 154. GOAL MAP 175-180. db NOTIFIED DR. CHUNG. 11:54 Reassessment: NICARDIPINE DRIP PAUSED FOR 10 MIN. PATIENT MAP 145. db 13:00 Reassessment: Patient appears in no apparent distress at this time. Patient and/or db family updated on plan of care and expected duration. Pain level reassessed. Patient is alert, oriented x 3, equal unlabored respirations, skin warm/dry/pink. 14:15 Reassessment: Patient appears in no apparent distress at this time. Patient and/or db family updated on plan of care and expected duration. Pain level reassessed. Patient is alert, oriented x 3, equal unlabored respirations, skin warm/dry/pink. PT SITTING UP VISITING WITH VISITOR. General: Appears in no apparent distress. comfortable, Behavior is calm, cooperative. Pain: Complains of pain in back. 14:44 Reassessment: PT REQUESTING JUICE AND WATER. NOTIFIED PATIENT CAN HAVE ICE CHIPS DUE TO db FLUID OVER LOAD. 17:28 Reassessment: REPORT GIVEN TO [place]ANNY [place] [facility] [facility] [place] b[place] 18:17 Reassessment: Patient appears in no apparent distress at this time. Patient and/or db family updated on plan of care and expected duration. Pain level reassessed. Patient is alert, oriented x 3, equal unlabored respirations, skin warm/dry/pink. EMS AT BEDSIDE FOR TRANSPORT. Vital Signs: 09:57 BP 224 / 157; Pulse 122; Resp 20; Temp 99.5(O); Pulse Ox 97% on R/A; Weight 61.23 kg; ll1 Height 5 ft. 1 in. ; Pain 7/10; 10:00 BP 223 / 153; Pulse 117; Resp 33; Pulse Ox 98% on 2 lpm NC; db 11:00 BP 224 / 158; Pulse 118; Resp 24; Pulse Ox 98% on 2 lpm NC; db 11:15 BP 214 / 153; Pulse 116; Resp 33; Pulse Ox 93% on R/A; db 11:30 BP 195 / 140; Pulse 154; Resp 30; Pulse Ox 98% on 2 lpm NC; db 11:45 BP 196 / 125; Pulse 114; Resp 24; Pulse Ox 100% on 2 lpm NC; db 12:00 BP 197 / 133; Pulse 112; db 12:15 BP 196 / 139; Pulse 117; Resp 24; Pulse Ox 96% on 2 lpm NC; db 12:30 BP 203 / 141; Pulse 118; db 12:35 Temp 101(O); db 12:45 BP 200 / 131; Pulse 109; db 13:00 BP 197 / 127; Pulse 110; Resp 24; db 13:15 BP 212 / 143; Pulse 111; db 13:30 BP 210 / 134; Pulse 109; Resp 24; db 13:45 BP 204 / 139; Pulse 111; db 14:00 BP 191 / 133; Pulse 119; db 14:15 BP 205 / 139; Pulse 123; db 14:30 BP 203 / 144; Pulse 117; Resp 24; Pulse Ox 90% on R/A; db 14:45 BP 199 / 145; Pulse 117; db 15:00 BP 201 / 140; Pulse 112; db 15:15 BP 183 / 126; Pulse 117; Resp 26; db 15:30 BP 174 / 113; Pulse 112; Resp 19; Pulse Ox 95% on 2 lpm NC; db 15:45 BP 193 / 122; Pulse 117; db 16:00 BP 183 / 124; Pulse 103; Resp 16; Pulse Ox 92% on R/A; db 16:15 BP 186 / 124; Pulse 102; Resp 16; db 16:30 BP 182 / 127; Pulse 102; Resp 18; Pulse Ox 93% on R/A; db 16:45 BP 193 / 130; Pulse 101; db 17:00 BP 177 / 128; Pulse 102; db 17:15 BP 177 / 121; Pulse 97; Resp 18; Temp 98.4(O); Pulse Ox 95% on 2 lpm NC; db 17:30 BP 189 / 125; Pulse 98; Resp 24; Pulse Ox 100% on 2 lpm NC; db 17:45 BP 206 / 157; Pulse 114; db 18:00 BP 206 / 144; Pulse 101; db 18:15 BP 206 / 155; db 09:57 Body Mass Index 25.51 (61.23 kg, 154.94 cm) ll1 09:57 Pain Scale: Adult ll1 11:15 PT REMOVED O2. MAP 171 db 11:30 MAP 154 db 11:45 MAP 145 db 12:00 MAP 151- CONTINUE TO HOLD NICARDIPINE DRIP db 12:15 map 155- CONTINUE TO HOLD NICARDIPINE DRIP db 12:30 MAP 159 db 12:45 MAP 152 db 13:00 MAP 148 db 13:15 MAP 163. NICARDIPINE DRIP RESTARTED db 13:30 MAP 155- NICARDIPINE DRIP DECREASED TO 1.25 MG. GOAL MAP 175-180 db 13:45 MAP 158 db 14:00 MAP 152 db 14:15 MAP 158 db 14:30 MAP 161. PT REMOVED NC 2L O2 db 14:45 MAP 162 db 15:00 MAP 158 db 15:15 MAP 142 db 15:30 MAP 132. NICARDIPINE PAUSED db 15:45 MAP 139 db 16:00 MAP 142 db 16:15 MAP 141 db 16:30 MAP 144 db 16:45 MAP 149 db 17:00 MAP 143 db 17:15 MAP 137 db 17:30 MAP MAP 145 db 17:45 MAP 169 db 18:00 MAP 163 RESTARTED NICARDIPINE 2.5 MG/HR db 18:15 MAP 169 db ED Course: 09:49 Patient arrived in ED. mr 09:53 Jm Chung DO is Attending Physician. ms3 09:59 Triage completed. ll1 10:01 Arm band placed on Patient placed in an exam room, on a stretcher. ll1 10:04 Ingris Rivera, RN is Primary Nurse. db 10:32 Initial lab(s) drawn, by me, sent to lab. Inserted saline lock: 20 gauge in right zm forearm, using aseptic technique. Blood collected. Flushed with 10 mL NS. 10:33 Basic Metabolic Panel Sent. zm 10:33 CBC with Diff Sent. zm 10:33 Magnesium Sent. zm 10:33 Troponin HS Sent. zm 10:36 CT Chest For PE Angio In Process Unspecified. EDMS 11:05 Patient has correct armband on for positive identification. Bed in low position. Call db light in reach. Side rails up X 1. Client placed on continuous cardiac and pulse oximetry monitoring. NIBP monitoring applied. taker off drying kiln on. Pulse ox on. NIBP on. Warm blanket given. Pillow given. 11:48 initiated transfer to [facility]. bd 17:15 pt accepted in transfer to [facility] 7CA rm [address] Bowman admin approval given by danilo Thomas. 18:17 Provided Education on: ADMISSION. db 18:17 No provider procedures requiring assistance completed. Patient transferred, IV remains db in place. Administered Medications: 11:18 Drug: cloNIDine PO 0.1 mg PO once Route: PO; db 12:25 Follow up: Response: No adverse reaction db 11:18 Drug: Ondansetron IVP 4 mg IVP once; over 2 minutes Route: IVP; Site: right antecubital;db 12:25 Follow up: Response: No adverse reaction; Nausea is decreased db 11:33 Drug: niCARdipine IV 5 mg/hr IV at calculated rate See Administration Instructions; db (Standard concentration 25 mg / 250 mL NS); Recommended max rate 15 mg/hr; Titrate 2.5 mg/hr as often as every 15 minutes to achieve goal (see titration policy) {Note: dose double checked on pump by Mayra Mari RN.} Route: IV; Rate: calculated rate; Site: right forearm; 11:47 Follow up: Rate change 2.5 Titrate; TITRATED TO 2.5 MG/HR db 11:55 Follow up: Rate change Titrate; MAP 145. MEDICATION PAUSED FOR 10 MINUTES db 12:00 Follow up: CONTINUE TO PAUSE NICARDIPINE DRIP db 12:15 Follow up: CONTINUE TO PAUSE NICARDIPINE DRIP. MAP 155 db 13:15 Follow up: Rate change 2.5 Titrate; MAP 163. NICARDIPINE DRIP RESTARTED db 13:30 Follow up: Rate change 1.25 Titrate; TITRATED DOWN TO 1.25 MG/HR. MAP 155 db 14:30 Follow up: Rate change 2.5 Titrate; MAP 161, BP 203/144. GOAL MAP 175-180 db 15:53 Follow up: Rate change Titrate; MAP 132 MEDICATION PAUSED db 18:00 Follow up: Rate change 2.5 Titrate; MAP 163 NICARDIPINE STARTED 2.5 MG/HR db 18:27 Follow up: Response: No adverse reaction; IV Status: Infusion continued upon transfer db Medication: 18:17 VIS not applicable for this client. db Intake: Outcome: 11:34 ER care complete, transfer ordered by ms3 18:17 Transferred by ground EMS to [facility], Transfer form completed. db 18:17 Condition: stable 18:17 Instructed on the need for transfer, 18:28 Patient left the ED. db Signatures: Dispatcher [employer] EDMS Tana Valentin Mary, Trent Reg mr Diego Mari, RN RN ll1 Jm Chung DO DO ms3 Jessica Watters Danielle, RN RN db Corrections: (The following items were deleted from the chart) 11:40 11:15 BP 214 / 153; Pulse 116bpm; Resp 33bpm; Pulse Ox 93% RA; PT REMOVED O2; db db 11:40 11:30 BP 195 / 140; Pulse 154bpm; Resp 30bpm; Pulse Ox 98% 2 lpm Nasal Cannula; db db 14:51 13:30 BP 210 / 134; Pulse 109bpm; Resp 24bpm; MAP 155- NICARDIPINE DRIP DECREASED TO db 1.25 MG; db 15:56 15:30 BP 174 / 113; Pulse 112bpm; Resp 19bpm; Pulse Ox 95% 2 lpm Nasal Cannula; MAP db 132. ; db 18:18 18:17 Instructed on the need for admit, db db
[2024-02-20 19:11] VITALS: TEMP 98.4
[2024-02-20 19:12] VITALS: O2SAT 100
[2024-02-20 19:15] VITALS: BP 206/155
--- NOTE | 2024-02-21 17:48 | EKG ---
Test Date: 2024-02-20 Test Time: 10:54:20 Client Analyst: ANNA MEASUREMENT RESULTS: Intervals: Rate: 120 MN: 136 QRSD: 82 QT: 320 QTc: 452 [place]: P: 59 MN: 136 QRS: -79 T: 75 INTERPRETIVE STATEMENTS: Sinus tachycardia Left axis deviation Septal infarct, age undetermined Abnormal ECG Compared to ECG 01/29/2024 18:10:35 Left-axis deviation now present Sinus rhythm no longer present Left anterior fascicular block no longer present Myocardial infarct finding still present Electronically Signed On 02-21-24 17:45:53 CDT by Alirio Dickerson
== END 2024-02-20 18:28 | disposition short-term general hospital (02) ==
LOC: ER 09:47
DX: J81.0 Acute pulmonary edema (principal); I16.1 Hypertensive emergency; I71.9 Aortic aneurysm of unspecified site, without rupture; I12.0 Hypertensive chronic kidney disease with stage 5 chronic kidney disease or end stage renal disease; N18.6 End stage renal disease; Z99.2 Dependence on renal dialysis; Z94.0 Kidney transplant status
CPT/HCPCS: 85025; 80048; 36415; 83735; 84484; 71275; Q9967; J2405; 93005

== ENCOUNTER 2024-02-26 12:56 | Inpatient (IN) | payer OTHER ==
[2024-02-26 14:41] LABS: Specific Gravity 1.009 (1.005-1.030)
[2024-02-26 14:43] LABS: Specific Gravity 1.009 (1.005-1.030); Sqamous Epithelial <5 /HPF (None Seen); Urine Bacteria <20 /HPF (<20); Urine Bilirubin NEGATIVE (Negative); Urine Blood 3+ (Negative); Urine Clarity Turbid (Clear); Urine Color Light-Yellow (Yellow); Urine Culture Reflex Order NOT NEEDED; Urine Glucose TRACE (Negative); Urine Ketones NEGATIVE (Negative); Urine Microscopic Reflex YN ORDER UMIC; Urine Nitrite NEGATIVE (Negative); Urine Protein 2+ (Negative); Urine Urobilinogen Normal (Normal); Urine WBC <5 /HPF (<5)
[2024-02-26] MEDS ORDERED: HYDROMORPHONE HCL 1 MG/ML INJ ONE ×2 (14:46→19:38)
[2024-02-26] MEDS ORDERED: HYDRALAZINE HCL 20 MG/ML VIAL ONE ×2 (14:46→19:30)
[2024-02-26 14:47] LABS: Absolute Basophils 0.1 K/uL (0-0.5); Absolute Eosinophils 0.5 K/uL (0-0.5); Absolute Lymphocytes (CBC) 0.7 K/uL (0.7-4.9); Absolute Monocytes 0.6 K/uL (0.1-1.3); Absolute Neutrophil 4.5 K/uL (1.8-8.0); Basophils % 1.2 % (0-1.3); Eosinophils % 8.3 % (0-4.4); Hematocrit 32.6 % (36.0-45.0); Hemoglobin 10.2 g/dL (12.0-15.0); Lymphocytes % 10.6 % (15.3-44.8); MCH 27.8 pg (27.0-35.0); MCHC 31.2 g/dL (32.0-36.0); MCV 89.2 fL (80-100); MPV 8.3 fL (7.6-11.3); Monocytes % 9.8 % (3.3-12.3); Neutrophils % 70.1 % (41.7-73.7); Platelets 192 thou/uL (152-406); RBC Red Blood Cell Count 3.65 M/uL (3.86-4.86); Red Cell Distribution Width 18.2 % (12.1-15.2)
[2024-02-26 15:24] LABS: Albumin 3.3 g/dL (3.4-5.0); Albumin/Globulin Ratio 0.9 (1.1-1.8); Anion Gap 11.5 mEq/L (5.0-15.0); Globulin 3.7 g/dL (2.3-3.5); Potassium 4.5 mEq/L (3.5-5.1)
[2024-02-26] MEDS ORDERED: LABETALOL 20 MG/4ML SYRINGE IV ONE (16:59)
[2024-02-26] MEDS ORDERED: DIPHENHYDRAMINE 50 MG/ML VIAL ONE (17:07)
[2024-02-26] MEDS ORDERED: Nicardipine/NS 25 MG/250 ML KIT IV ONE (20:20)
[2024-02-26 21:46] LABS: Troponin High Sensitivity 37.7 pg/mL (<58.9)
[2024-02-26 21:48] LABS: NT PRO-BNP > 175000 pg/mL (<125)
--- NOTE | 2024-02-26 22:12 | RAD REPORT ---
EXAM DESCRIPTION: CT - Angio Aorta For Dissection - 02/26/2024 9:04 pm CLINICAL HISTORY: htn COMPARISON: Abdomen Pelvis W Contrast dated 01/11/2024 TECHNIQUE: Thin axial CT images of the chest, abdomen, and pelvis were obtained during administratio n of 150 mL Isovue 370 intravenously. Sagittal and coronal reconstructions as well as maximal intensi ty projection reconstruction were generated and reviewed per an aortic angiography protocol. All CT scans are performed using dose optimization technique as appropriate and may include automated exposure control or mA/KV adjustment according to patient size. FINDINGS: Aorta is normal in diameter with no dissection or other acute aortic findings. Thin linear filling defects seen in the infrarenal abdominal aortic lumen, the superior most of which is seen on sagittal image 67 and axial image 103, with associated indentation of the garcia of the aorta at that level. The inferior most of these is seen following the takeoff of the JADYN, see axial image 120. The se may represent residua of resolving mural hematoma, or prior dissection, without evidence of a disc rete dissection flap. Reconstruction images show no other significant findings. Pulmonary arteries are within normal limits. No mass or infiltrate in the lung parenchyma. No pneumothorax. Small layering bilateral pleural effus ions. No abnormal mediastinal or hilar mass or lymphadenopathy seen. No chest wall mass or abnormal axillar y lymphadenopathy. Celiac, SMA and renal arteries show no suspicious findings. Mild to moderate free ascites. Solid abdo radha viscera and bowel show no significant findings. Atrophic changes of the [place] kidneys. Right l ower quadrant 3.8 x 2.0 cm collection has decreased in size from 4.5 cm on the prior abdominal CT, ma y represent a resolving postoperative seroma or hematoma. No suspicious mass or abnormal lymphadenopa thy. Moderate diffuse body wall edema. IMPRESSION: No acute abnormalities on CT angiogram of the aorta. There are 2 small linear filling defects along the infrarenal abdominal aortic lumen, may represent r esidua of resolving mural hematomas or prior dissection, without evidence of a discrete dissection fl ap. Small layering effusions, mild to moderate free ascites, and diffuse body wall edema. Please correlat e clinically for evidence of anasarca/third-spacing.
--- NOTE | 2024-02-26 22:17 | EDPHYS ---
Physician Documentation [facility] Name: Shaun Lopez Age: 33 yrs Sex: Female : 1990 Arrival Date: 02/26/2024 Time: 12:56 Bed 18 Private MD: ED Physician Maya Richter HPI: 02/25 13:30 This 33 yrs old Female presents to ER via Ambulatory with complaints of Flank Pain. cp 13:30 The patient complains of pain in the right lateral chest wall. Onset: The cp symptoms/episode began/occurred chronic, worse today. Associated signs and symptoms: Pertinent negatives: fever, vomiting, abdominal pain. Severity of pain: in the emergency department the pain is unchanged despite home interventions. 13:30 The patient has experienced similar episodes in the past, chronically, Patient reports cp PMHX significant for herpes zoster with post-herpetic neuralgia. pain similar to previous episodes. reports recent diagnosis of aortic aneurysm. 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 - Infectious Disease History:: Denies. - Social history:: Smoking status: Patient denies any tobacco usage or history of. ROS: 13:35 Constitutional: Negative for body aches, chills, fever, poor PO intake, cp 13:35 Cardiovascular: Positive for chest pain, of the right lateral chest, Negative for cp palpitations, 13:35 Back: Positive for 13:35 Eyes: Negative for injury, pain, redness, and discharge, cp 13:35 Respiratory: Negative for cough, shortness of breath, wheezing, 13:35 Abdomen/GI: Negative for abdominal pain, vomiting, diarrhea, constipation, 13:35 Neuro: Negative for altered mental status, headache, weakness, cp 13:35 All other systems are negative, Exam: 13:40 Constitutional: The patient appears in no acute distress, alert, awake, cp non-diaphoretic, non-toxic, well developed, well nourished, in obvious pain, uncomfortable, 13:40 Head/Face: Normocephalic, atraumatic. cp 13:40 Eyes: Periorbital structures: appear normal, Conjunctiva: normal, no exudate, no injection, Sclera: no appreciated abnormality, Lids and lashes: appear normal, bilaterally, 13:40 ENT: External ear(s): are unremarkable, Nose: is normal, Mouth: Lips: moist, Oral mucosa: moist, Posterior pharynx: Airway: no evidence of obstruction, patent, 13:40 Chest/axilla: Inspection: shingles scar right lateral chest wall with tenderness to palpation, 13:40 Cardiovascular: Rate: tachycardic, Rhythm: regular, Edema: ankle edema, that is mild, JVD: is not appreciated, 13:40 Respiratory: the patient does not display signs of respiratory distress, Respirations: normal, no use of accessory muscles, no retractions, labored breathing, is not present, Breath sounds: are clear throughout, no decreased breath sounds, no stridor, no wheezing, 13:40 Abdomen/GI: Inspection: abdomen appears normal, Palpation: abdomen is soft and non-tender, in all quadrants, 13:40 Neuro: Orientation: to person, place \T\ time. Mentation: is normal, Motor: moves all fours, strength is normal, Sensation: is normal, Vital Signs: 13:18 BP 214 / 145; Pulse 103; Resp 18 S; Temp 97.6(TE); Pulse Ox 99% on R/A; Weight 62.6 kg aa5 (R); Height 5 ft. 1 in. (R); 14:43 BP 216 / 153; Pulse 98; Resp 16; Pulse Ox 100% ; me1 15:15 Pain 6/10; me1 15:30 BP 182 / 113; Pulse 96; Resp 16; Pulse Ox 97% on R/A; me1 15:30 BP 193 / 130; Pulse 96; Resp 16; Pulse Ox 97% on R/A; me1 16:30 BP 200 / 139; Pulse 103; Resp 16; Pulse Ox 100% on R/A; me1 17:30 BP 203 / 129; Pulse 83; Resp 16; Pulse Ox 97% on R/A; me1 18:31 BP 221 / 138; Pulse 85; Resp 16; Pulse Ox 96% ; me1 19:00 BP 223 / 143; Pulse 103; Resp 16; Pulse Ox 99% on R/A; me1 19:31 BP 225 / 148; Pulse 92; Resp 16; Pulse Ox 99% ; me1 21:25 BP 213 / 144; Pulse 101; Resp 20; Pulse Ox 96% on R/A; me1 21:30 BP 204 / 125; Pulse 97; Resp 16; Pulse Ox 97% ; me1 21:53 BP 190 / 124; Pulse 109; Resp 16; Pulse Ox 96% on R/A; me1 22:14 BP 180 / 119; Pulse 121; Resp 18; Pulse Ox 98% on R/A; me1 22:15 BP 175 / 110; Pulse 118; Resp 15; Pulse Ox 98% ; ia1 22:30 BP 154 / 99; Pulse 111; Resp 14; Pulse Ox 97% on R/A; ia1 02/26 00:01 BP 152 / 96; Pulse 106; Resp 19; Pulse Ox 97% on R/A; me1 00:45 BP 182 / 127; Pulse 107; Resp 16; Pulse Ox 96% on R/A; pc2 00:45 BP 182 / 127; Pulse 112; pc2 01:00 BP 159 / 113; Pulse 104; Resp 16; Pulse Ox 96% on R/A; pc2 01:15 BP 166 / 109; Pulse 107; Resp 16; Pulse Ox 96% on R/A; pc2 01:30 BP 161 / 111; Pulse 105; Resp 16; Pulse Ox 95% on R/A; pc2 01:45 BP 155 / 115; Pulse 110; Resp 16; Pulse Ox 96% on R/A; pc2 02:00 BP 164 / 110; Pulse 104; Resp 16; Pulse Ox 96% on R/A; pc2 02:15 BP 156 / 109; pc2 03:45 BP 140 / 87; Pulse 102; pc2 04:00 BP 146 / 95; Pulse 89; pc2 05:00 BP 170 / 101; Pulse 94; pc2 05:45 BP 176 / 121; Pulse 105; pc2 06:15 BP 172 / 119; pc2 06:45 BP 192 / 113; Pulse 115; pc2 06:57 BP 167 / 101; Pulse 115; pc2 02/25 13:18 Body Mass Index 26.07 (62.60 kg, 154.94 cm) aa5 15:15 Pain Scale: Adult me1 MDM: 02/25 13:22 Patient medically screened. cp 22:15 Data reviewed: vital signs, nurses notes. Consideration of Admission/Observation kb Patient was admitted/placed on observation. Escalation of care including admission/observation considered. 02/25 13:22 Order name: CBC with Diff; Complete Time: 16:52 cp 02/25 16:52 Interpretation: Normal except: RBC 3.65; HGB 10.2; HCT 32.6; MCHC 31.2; RDW 18.2; LYM% cp 10.6; EOSINOPHIL % 8.3. 02/25 13:22 Order name: CMP; Complete Time: 16:52 cp 02/25 16:52 Interpretation: Normal except: NA 135; BUN 50; CRE 6.39; GFR 8; ALB 3.3; GLOB 3.7; A/G cp 0.9. 02/25 13:22 Order name: Lipase; Complete Time: 16:52 cp 02/25 13:22 Order name: Test, Urine; Complete Time: 16:52 cp 02/25 13:22 Order name: Urinalysis w/ reflexes; Complete Time: 16:52 cp 02/25 20:01 Order name: Troponin High Sensitivity; Complete Time: 22:15 cp 02/25 20:01 Order name: BNP; Complete Time: 22:15 cp 02/26 00:18 Order name: Urinalysis w/ reflexes EDWI 02/25 19:53 Order name: CT Aorta for Dissection; Complete Time: 22:15 cp 02/25 20:01 Order name: EKG; Complete Time: 20:01 cp 02/26 00:19 Order name: CONS Physician Consult EDWI 02/25 13:22 Order name: IV Saline Lock; Complete Time: 14:42 cp 02/25 13:22 Order name: Labs collected and sent; Complete Time: 14:36 cp 02/25 19:49 Order name: Misc. Order: systolic pressure of 180; Complete Time: 21:16 cp 02/25 20:01 Order name: EKG - Nurse/Tech; Complete Time: 21:58 cp Administered Medications: 14:51 Drug: HYDROmorphone IVP 1 mg IVP once Route: IVP; Site: right wrist; me1 15:15 Follow up: Pain 6/10 Adult; Response: No adverse reaction; Pain is decreased me1 14:51 Drug: hydrALAZINE IVP 20 mg IVP once Route: IVP; Site: right wrist; me1 15:19 Follow up: Response: No adverse reaction me1 17:06 Drug: Labetalol IV 20 mg IV at calculated rate once over 2 mins Route: IV; Rate: me1 calculated rate; Infused Over: 2 mins; Site: right wrist; 02/26 00:40 Follow up: Response: Blood pressure is unchanged pc2 02:51 Follow up: Response: No adverse reaction; IV Status: Completed infusion pc2 02/25 17:09 Drug: diphenhydrAMINE IVP 25 mg IVP once Route: IVP; Site: right wrist; me1 17:30 Follow up: Response: No adverse reaction me1 19:17 CANCELLED (Physician Discretion): [id number] mg PO once cp 19:31 Drug: hydrALAZINE IVP 20 mg IVP once; For SBP > 140 mmHg. Hold if less than 120 mmHg. me1 Route: IVP; Site: right wrist; 19:51 Follow up: Response: No adverse reaction; Blood pressure is unchanged me1 19:41 Drug: HYDROmorphone IVP 1 mg IVP once Route: IVP; Site: right wrist; me1 19:58 Follow up: Response: No adverse reaction; Pain is decreased me1 21:09 Drug: niCARdipine IV 5 mg/hr IV at calculated rate See Administration Instructions; me1 (Standard concentration 25 mg / 250 mL NS); Recommended max rate 15 mg/hr; Titrate 2.5 mg/hr as often as every 15 minutes to achieve goal (see titration policy); Goal parameter SBP less than 160 mmHg Route: IV; Rate: calculated rate; Site: right forearm; 21:35 Follow up: Rate change 7.5 mg/hr me1 21:53 Follow up: Rate change 9 mg/hr me1 22:44 Follow up: Rate change 7.5 mg/hr me1 02/26 00:45 Follow up: BP 182 / 127; Pulse 112 bpm; Rate change 10 mg/hr pc2 00:50 Follow up: Response: Blood pressure is lowered; IV Status: Infusion continued upon pc2 admission 02:15 Follow up: BP 156 / 109; Rate change 7.5 mg/hr pc2 03:45 Follow up: BP 140 / 87; Pulse 102 bpm; Rate change 5 mg/hr pc2 04:00 Follow up: BP 146 / 95; Pulse 89 bpm; Rate change 2.5 mg/hr pc2 05:00 Follow up: BP 170 / 101; Pulse 94 bpm; Rate change 5 mg/hr pc2 05:45 Follow up: BP 176 / 121; Pulse 105 bpm; Rate change 7.5 mg/hr pc2 06:15 Follow up: BP 172 / 119; Rate change 10 mg/hr pc2 06:45 Follow up: BP 192 / 113; Pulse 115 bpm; Rate change 12.5 mg/hr pc2 06:57 Follow up: BP 167 / 101; Pulse 115 bpm; Rate change 10 mg/hr pc2 Disposition Summary: 02/26/24 22:17 Hospitalization Ordered Notes: Hospitalization Status: Inpatient Admission kb Provider: Tesfaye Llamas Condition: Stable kb Problem: new kb Symptoms: are unchanged kb Bed/Room Type: Standard Location: Intensive Care Unit(02/27/24 07:17) Room Assignment: 1-(02/27/24 07:17) Diagnosis - Hypertensive emergency kb Forms: - Medication Reconciliation Form kb - SBAR form kb - Leadership Thank You Letter kb Signatures: Dispatcher [employer] EDMS Elsy Flores FNP-C AEROTRIANGULATION SPECIALIST-CkTana Lloyd Guerline Conklin, RN RN aa5 Javon Roy PA PA cp Calcote, Vanessa RN RN vc1 Bianca Baptiste RN RN me1 Anita Castro RN pc2 Corrections: (The following items were deleted from the chart) 02/25 19:17 19:17 HydrALAZINE PO 50 mg PO once ordered. cp cp 20:01 20:01 Troponin High Sensitivity+C.LAB.BRZ ordered. EDMS EDMS 20:01 20:01 PROBNP+C.LAB.BRZ ordered. EDWI EDMS 20:03 13:35 Cardiovascular: Negative for chest pain, palpitations, cp cp 22:28 22:17 Intensive Care Unit kb vc1 22:28 22:17 kb [facility] 02/26 07:17 02/25 22:28 BR ER HOLD vc1 08/26 07:17 02/25 22:28 ERHOLD- vc1 bd
--- NOTE | 2024-02-26 22:17 | ER ---
Nurse's Notes [facility] Name: Shaun Lopez Age: 33 yrs Sex: Female : 1990 Arrival Date: 02/26/2024 Time: 12:56 Bed 18 Private MD: Diagnosis: Hypertensive emergency Presentation: 02/25 13:18 Acuity: VERNA 2 aa5 13:18 Chief complaint: Patient states: right flank pain since beginning of February,see here aa5 previously for same complaints, pt states "last time they told me I had an aortic aneurysmal dilation". Coronavirus screen: At this time, the client does not indicate any symptoms associated with coronavirus-19. Ebola Screen: Patient denies travel to an Ebola-affected area in the 21 days before illness onset. Initial Sepsis Screen: Does the patient meet any 2 criteria? HR > 90 bpm. Does the patient have a suspected source of infection? No. Patient's initial sepsis screen is negative. Risk Assessment: Do you want to hurt yourself or someone else? Patient reports no desire to harm self or others. Onset of symptoms was February 2024. 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 - Infectious Disease History:: Denies. - Social history:: Smoking status: Patient denies any tobacco usage or history of. Screenin:20 [facility] ED Fall Risk Assessment (Adult) History of falling in the last 3 months, me1 including since admission No falls in past 3 months (0 pts) Confusion or Disorientation No (0 pts) Intoxicated or Sedated No (0 pts) Impaired Gait No (0 pts) Mobility Assist Device Used No (0 pt) Altered Elimination No (0 pt) Score/Fall Risk Level 0 - 2 = Low Risk Maintained a safe environment, Provided non-skid footwear, Hourly rounding (assess needs \\T\\ fall precautionary measures) done. Abuse screen: Denies threats or abuse. Nutritional screening: No deficits noted. Tuberculosis screening: No symptoms or risk factors identified. Assessment: 13:20 General: Appears uncomfortable, ill, well groomed, well developed, well nourished, me1 Behavior is calm, cooperative, appropriate for age, Reports right flank pain since beginning of February,see here previously for same complaints, pt states "last time they told me I had an aortic aneurysmal dilation". Pain: Complains of pain in right upper quadrant Pain does not radiate. Pain currently is 10 out of 10 on a pain scale. Quality of pain is described as sharp, Pain began gradually, Is continuous. Neuro: Level of Consciousness is awake, alert, obeys commands, Oriented to person, place, time, situation, Appropriate for age. Cardiovascular: Capillary refill < 3 seconds Patient's skin is warm and dry. Respiratory: Airway is patent Trachea midline Respiratory effort is even, unlabored, Respiratory pattern is regular, symmetrical. GI: No signs and/or symptoms were reported involving the gastrointestinal system. : No signs and/or symptoms were reported regarding the genitourinary system. : Dialysis patient with AV shunt on left upper arm. EENT: No signs and/or symptoms were reported regarding the EENT system. Derm: Skin is intact, is healthy with good turgor, Skin is pink, warm \\T\\ dry. Musculoskeletal: No signs and/or symptoms reported regarding the musculoskeletal system. 17:10 General: rash to face that itches. Informed CHITRA Giles. Rec'd order for benadryl. me1 20:12 General: Called Dr iWlls for permission to start a midline in patient's right upper me1 arm. Spoke to Dr Lambert, the nuclear radiation engineer Dr, and was given permission to start a midline in right arm. . Vital Signs: 13:18 BP 214 / 145; Pulse 103; Resp 18 S; Temp 97.6(TE); Pulse Ox 99% on R/A; Weight 62.6 kg aa5 (R); Height 5 ft. 1 in. (R); 14:43 BP 216 / 153; Pulse 98; Resp 16; Pulse Ox 100% ; me1 15:15 Pain 6/10; me1 15:30 BP 182 / 113; Pulse 96; Resp 16; Pulse Ox 97% on R/A; me1 15:30 BP 193 / 130; Pulse 96; Resp 16; Pulse Ox 97% on R/A; me1 16:30 BP 200 / 139; Pulse 103; Resp 16; Pulse Ox 100% on R/A; me1 17:30 BP 203 / 129; Pulse 83; Resp 16; Pulse Ox 97% on R/A; me1 18:31 BP 221 / 138; Pulse 85; Resp 16; Pulse Ox 96% ; me1 19:00 BP 223 / 143; Pulse 103; Resp 16; Pulse Ox 99% on R/A; me1 19:31 BP 225 / 148; Pulse 92; Resp 16; Pulse Ox 99% ; me1 21:25 BP 213 / 144; Pulse 101; Resp 20; Pulse Ox 96% on R/A; me1 21:30 BP 204 / 125; Pulse 97; Resp 16; Pulse Ox 97% ; me1 21:53 BP 190 / 124; Pulse 109; Resp 16; Pulse Ox 96% on R/A; me1 22:14 BP 180 / 119; Pulse 121; Resp 18; Pulse Ox 98% on R/A; me1 22:15 BP 175 / 110; Pulse 118; Resp 15; Pulse Ox 98% ; me1 22:30 BP 154 / 99; Pulse 111; Resp 14; Pulse Ox 97% on R/A; me1 02/26 00:01 BP 152 / 96; Pulse 106; Resp 19; Pulse Ox 97% on R/A; me1 00:45 BP 182 / 127; Pulse 107; Resp 16; Pulse Ox 96% on R/A; pc2 00:45 BP 182 / 127; Pulse 112; pc2 01:00 BP 159 / 113; Pulse 104; Resp 16; Pulse Ox 96% on R/A; pc2 01:15 BP 166 / 109; Pulse 107; Resp 16; Pulse Ox 96% on R/A; pc2 01:30 BP 161 / 111; Pulse 105; Resp 16; Pulse Ox 95% on R/A; pc2 01:45 BP 155 / 115; Pulse 110; Resp 16; Pulse Ox 96% on R/A; pc2 02:00 BP 164 / 110; Pulse 104; Resp 16; Pulse Ox 96% on R/A; pc2 02:15 BP 156 / 109; pc2 03:45 BP 140 / 87; Pulse 102; pc2 04:00 BP 146 / 95; Pulse 89; pc2 05:00 BP 170 / 101; Pulse 94; pc2 05:45 BP 176 / 121; Pulse 105; pc2 06:15 BP 172 / 119; pc2 06:45 BP 192 / 113; Pulse 115; pc2 06:57 BP 167 / 101; Pulse 115; pc2 02/25 13:18 Body Mass Index 26.07 (62.60 kg, 154.94 cm) aa5 15:15 Pain Scale: Adult ut1 ED Course: 02/25 12:59 Patient arrived in ED. ra3 13:18 Arm band placed on. aa5 13:20 Patient has correct armband on for positive identification. Bed in low position. Call me1 light in reach. Side rails up X2. Provided Education on: POC. Verbalized understanding. . Client placed on continuous cardiac and pulse oximetry monitoring. NIBP monitoring applied. Pulse ox on. NIBP on. 13:20 No provider procedures requiring assistance completed. me1 13:22 Javon Roy PA is PHCP. cp 13:22 Maya Richter MD is Attending Physician. cp 13:22 Triage completed. aa5 14:19 Bianca Baptiste, RN is Primary Nurse. me1 14:36 Urinalysis w/ reflexes Sent. me1 14:36 Test, Urine Sent. me1 14:36 Urine collected: clean catch specimen, clear. me1 14:38 Initial lab(s) drawn, by ut, sent to lab. Inserted saline lock: 22 gauge in right bp wrist, using aseptic technique. Blood collected. 14:42 CBC with Diff Sent. me1 14:42 CMP Sent. me1 14:42 Lipase Sent. me1 20:40 Accessed peripheral vein via ultrasound, utilizing dynamic ultrasound technique Blood cm10 collected. Clean \\T\\ dry. Dressing intact. Good blood return. 21:06 CT Aorta for Dissection In Process Unspecified. EDMS 22:16 Tesfaye Llamas MD is Hospitalizing Provider. kb 02/26 00:51 Report received from JERALD Valenzuela. pc2 Administered Medications: 02/25 14:51 Drug: HYDROmorphone IVP 1 mg IVP once Route: IVP; Site: right wrist; me1 15:15 Follow up: Pain 6/10 Adult; Response: No adverse reaction; Pain is decreased me1 14:51 Drug: hydrALAZINE IVP 20 mg IVP once Route: IVP; Site: right wrist; me1 15:19 Follow up: Response: No adverse reaction me1 17:06 Drug: Labetalol IV 20 mg IV at calculated rate once over 2 mins Route: IV; Rate: me1 calculated rate; Infused Over: 2 mins; Site: right wrist; 02/26 00:40 Follow up: Response: Blood pressure is unchanged pc2 02:51 Follow up: Response: No adverse reaction; IV Status: Completed infusion pc2 02/25 17:09 Drug: diphenhydrAMINE IVP 25 mg IVP once Route: IVP; Site: right wrist; me1 17:30 Follow up: Response: No adverse reaction me1 19:17 CANCELLED (Physician Discretion): mytcohpixza50 mg PO once cp 19:31 Drug: hydrALAZINE IVP 20 mg IVP once; For SBP > 140 mmHg. Hold if less than 120 mmHg. me1 Route: IVP; Site: right wrist; 19:51 Follow up: Response: No adverse reaction; Blood pressure is unchanged me1 19:41 Drug: HYDROmorphone IVP 1 mg IVP once Route: IVP; Site: right wrist; me1 19:58 Follow up: Response: No adverse reaction; Pain is decreased me1 21:09 Drug: niCARdipine IV 5 mg/hr IV at calculated rate See Administration Instructions; me1 (Standard concentration 25 mg / 250 mL NS); Recommended max rate 15 mg/hr; Titrate 2.5 mg/hr as often as every 15 minutes to achieve goal (see titration policy); Goal parameter SBP less than 160 mmHg Route: IV; Rate: calculated rate; Site: right forearm; 21:35 Follow up: Rate change 7.5 mg/hr me1 21:53 Follow up: Rate change 9 mg/hr me1 22:44 Follow up: Rate change 7.5 mg/hr me1 02/26 00:45 Follow up: BP 182 / 127; Pulse 112 bpm; Rate change 10 mg/hr pc2 00:50 Follow up: Response: Blood pressure is lowered; IV Status: Infusion continued upon pc2 admission 02:15 Follow up: BP 156 / 109; Rate change 7.5 mg/hr pc2 03:45 Follow up: BP 140 / 87; Pulse 102 bpm; Rate change 5 mg/hr pc2 04:00 Follow up: BP 146 / 95; Pulse 89 bpm; Rate change 2.5 mg/hr pc2 05:00 Follow up: BP 170 / 101; Pulse 94 bpm; Rate change 5 mg/hr pc2 05:45 Follow up: BP 176 / 121; Pulse 105 bpm; Rate change 7.5 mg/hr pc2 06:15 Follow up: BP 172 / 119; Rate change 10 mg/hr pc2 06:45 Follow up: BP 192 / 113; Pulse 115 bpm; Rate change 12.5 mg/hr pc2 06:57 Follow up: BP 167 / 101; Pulse 115 bpm; Rate change 10 mg/hr pc2 Medication: 02/25 13:20 VIS not applicable for this client. me1 Outcome: 22:17 Decision to Hospitalize by Provider. kb 02/26 11:14 Patient left the ED. bd Signatures: Dispatcher [employer] EDMS Elsy Flores, TIMOTHY-C CHEMICAL MILLING PROCESSOR-Tana Ramos Audri, RN RN aa5 Javon Roy PA PA cp Peltier, Brian RN RN bp Berenice Watters RN RN cm10 Bianca Baptiste RN RN ut1 Brittany Bonner 3 Anita Castro, RN RN pc2 Corrections: (The following items were deleted from the chart) 02/25 15:16 13:18 Chief complaint: Patient states: right flank pain since beginning of February,see me1 here previously for same complaints, pt states "last time they told me I had an aortic aneurysmal dilation" aa5 20:15 20:07 General: me1 me1 02/26 02:51 00:40 Response: No adverse reaction pc2 pc2 06:36 00:45 Rate change 10 mg/hr pc2 pc2 06:36 06:35 BP 182 / 127; Pulse 112 bpm; Rate change 10 mg/hr pc2 pc2 06:43 06:15 Rate change 10 mg/hr pc2 pc2
[2024-02-27] MEDS ORDERED: ONDANSETRON 4 MG/2 ML VIAL IV PRN (00:13)
[2024-02-27] MEDS ORDERED: ACETAMINOPHEN 325 MG TABLET PO PRN (00:13)
--- NOTE | 2024-02-27 00:19 | P.HP ---
Certification for Inpatient Patient admitted to: Inpatient With expected LOS: >2 Midnights Practitioner: I am a practitioner with admitting privileges, knowledge of patient current condition, hospital course, and medical plan of care. Services: Services provided to patient in accordance with Admission requirements found in Title 42 Section 412.3 of the Code of Federal Regulations Patient History Date of Service: 02/27/24 Reason for admission: Hypertensive emergency History of Present Illness: 33 yrs old Female with past medical history of ESRD, hypertension, migraines, history of brain tumor which was removed, history of renal transplant status post removal of around kidney who presents to the ER with flank pain and elevated blood pressure . Patient is a poor historian hence most of the history is obtained from the chart review and also talking to the ER physician. Patient denies any chest pain or shortness of breath Patient was assessed in the ER and was found to have hypertensive emergency and was admitted to the ICU for further management and was started on Cardene drip Allergies sulfamethoxazole [From Bactrim] Allergy (Verified 10/27/23 00:24) Itching/Hives/Rash trimethoprim [From Bactrim] Allergy (Verified 10/27/23 00:24) Itching/Hives/Rash Home medications list reviewed: Yes Home Medications: Furosemide [Lasix*] 40 mg PO DAILYPRN PRN 10/24/23 Losartan Potassium 1 tab PO DAILY 10/24/23 Clonidine Patch [Catapres-Tts 3*] 0.3 mg TD EVERY 7TH DAY 30 Days #1 box 01/22 Bumetanide 3 mg PO BID 01/30/24 Butalb/Acetaminophen/Caffeine [Pgbrsa-Lrhbiopr-Qesk 50-325-40] 1 each PO Q6HR PRN 01/30/24 Calcitrol [Rocaltrol*] 0.25 mcg PO DAILY 01/30/24 Carvedilol [Coreg] 25 mg PO BID 01/30/24 Dapsone [Dapsone*] 100 mg PO DAILY 01/30/24 Hydralazine HCl 10 mg PO Q8HR 01/30/24 Lisinopril [Zestril] 20 mg PO DAILY 01/30/24 Metoprolol Succinate [Toprol Xl] 100 mg PO DAILY 01/30/24 Nifedipine [Procardia Xl] 60 mg PO BID 01/30/24 Ondansetron [Zofran (Odt)*] 4 mg PO Q12H PRN 01/30/24 Terazosin HCl 2 mg PO BID 01/30/24 Duloxetine [Cymbalta *] 20 mg PO DAILY 60 Days #60 cap 01/31/24 Famotidine 20 mg PO DAILY 30 Days #30 tab 01/31/24 Pregabalin [Lyrica] 50 mg PO BID 10 Days #20 cap 01/31/24 - Past Medical/Surgical History Diabetic: No Past Medical History: Reviewed- Non-Contributory -: Hypertension -: ESRD (Dr. Wills/ Juan A) -: Seizures (as a child) -: Brain tumor -: Asthma Past Surgical History: Reviewed- Non-Contributory -: Csection x2 -: Brain Sx -: Kidney Transplant Nephrectomy/transplant was removed recently Psychosocial/ Personal History: Lives at home - Family History Family History: Reviewed- Non-Contributory - Social History Smoking Status: Never smoker Alcohol use: No CD- Drugs: No Caffeine use: No Review of Systems 10-point ROS is otherwise unremarkable Physical Examination - Physical Exam General: Alert, Oriented x3, Cooperative, Moderate distress HEENT: Atraumatic, Normocephalic Neck: Supple, 2+ carotid pulse no bruit Respiratory: Clear to auscultation bilaterally, Normal air movement Cardiovascular: Regular rate/rhythm, Normal S1 S2 Capillary refill: <2 Seconds Gastrointestinal: Soft and benign, Non-distended, W/out hepatosplenomegaly Musculoskeletal: No clubbing, No swelling Integumentary: No rashes, No breakdown Neurological: Normal speech, Normal strength at 5/5 x4 extr, Cranial nerves 3-12 intact Lymphatics: No axilla or inguinal lymphadenopathy - Studies Laboratory Data (last 24 hrs) 02/26/24 02/26/24 14:33 14:33 WBC 6.40 Hgb 10.2 L Hct 32.6 L Plt Count 192 Sodium 135 L Potassium 4.5 BUN 50 H Creatinine 6.39 H Glucose 80 Total Bilirubin 1.0 AST 28 ALT 43 Alkaline Phosphatase 66 Lipase 15 Assessment and Plan - Plan Hypertensive emergency Admit to ICU Started on Cardene drip Will try to wean down Antihypertensives titrated Acute on chronic CHF possibly systolic/diastolic Monitor closely on telemetry Started on aggressive diuresis X-ray findings consistent with CHF Oxygen supplementation Will try to wean down oxygen requirement Continue home medications Titrate as needed Will obtain an echocardiogram Cardiology consult Hypertension Antihypertensives titrated Continue home medications and titrate as needed Hyperlipidemia Continue statin ESRD on dialysis Monitor renal parameters Electrolytes monitor and replace accordingly Notify russian rubber Anemia of chronic disease Monitor H&H closely No overt bleeding at this time GI/DVT prophylaxis Advanced directive full code Plan to discharge in: Greater than 2 days - Advance Directives Does patient have a Living Will: No Does patient have a Durable POA for Healthcare: No - Code Status/Comfort Care Code Status: Full Code Time Spent Managing Pts Care (In Minutes): 49
[2024-02-27] MEDS ORDERED: Nicardipine/NS 25 MG/250 ML KIT IV ONE ×2 (00:27→08:18)
[2024-02-27] MEDS: FUROSEMIDE 40 MG/4 ML VIAL IV SCH (01:00)
[2024-02-27] MEDS: Nicardipine/NS 25 MG/250 ML KIT IV SCH (02:15)
[2024-02-27] MEDS ORDERED: FUROSEMIDE 40 MG/4 ML VIAL ONE ×2 (02:26→09:25)
[2024-02-27 07:05] LABS: Specific Gravity 1.014 (1.005-1.030); Sqamous Epithelial <5 /HPF (None Seen); Urine Bacteria None Seen /HPF (<20); Urine Bilirubin NEGATIVE (Negative); Urine Blood 3+ (OVER) (Negative); Urine Clarity Extremely Turbid (Clear); Urine Color Light-Yellow (Yellow); Urine Culture Reflex Order NOT NEEDED; Urine Glucose TRACE (Negative); Urine Ketones NEGATIVE (Negative); Urine Microscopic Reflex YN ORDER UMIC; Urine Nitrite NEGATIVE (Negative); Urine Protein 2+ (Negative); Urine RBC >50 /HPF (None Seen); Urine Urobilinogen Normal (Normal)
[2024-02-27] MEDS: HEPARIN 5000 UNIT/ML 1 ML VIAL SQ SCH (09:00)
[2024-02-27] MEDS ORDERED: HYDROMORPHONE HCL 1 MG/ML INJ ONE (09:25)
[2024-02-27] MEDS ORDERED: HEPARIN 5000 UNIT/ML 1 ML VIAL ONE (09:25)
[2024-02-27] MEDS: HYDROMORPHONE HCL 1 MG/ML INJ IV PRN (09:30)
[2024-02-27] MEDS: SACUBITRIL/VALSARTAN 49/51 MG TAB PO SCH (09:45)
[2024-02-27] MEDS: NIFEDIPINE XL 90 MG TABLET PO SCH (09:45)
--- NOTE | 2024-02-27 09:59 | EKG ---
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
--- NOTE | 2024-02-27 10:10 | P.CNS ---
Date of Consult: 02/27/24 Reason for Consult: ESRD Requesting Physician: Reg Medina Chief Complaint: Hypertensive emergency History of Present Illness: 33 yrs old Female with past medical history of ESRD, hypertension, migraines, history of brain tumor which was removed, history of renal transplant status post removal of around kidney who presents to the ER with flank pain and elevated blood pressure . Patient is a poor historian hence most of the history is obtained from the chart review and also talking to the ER physician. Patient denies any chest pain or shortness of breath. 13:30 This 33 yrs old Female presents to ER via Ambulatory with complaints of Flank Pain. cp 13:30 The patient complains of pain in the right lateral chest wall. Onset: The cp symptoms/episode began/occurred chronic, worse today. Associated signs and symptoms: Pertinent negatives: fever, vomiting, abdominal pain. Severity of pain: in the emergency department the pain is unchanged despite home interventions. Allergies sulfamethoxazole [From Bactrim] Allergy (Verified 10/27/23 00:24) Itching/Hives/Rash trimethoprim [From Bactrim] Allergy (Verified 10/27/23 00:24) Itching/Hives/Rash Home medications list reviewed: Yes Home Medications: Furosemide [Lasix*] 40 mg PO DAILYPRN PRN 10/24/23 Clonidine Patch [Catapres-Tts 3*] 0.3 mg TD EVERY 7TH DAY 30 Days #1 box 4 Bumetanide 3 mg PO BID 01/30/24 Butalb/Acetaminophen/Caffeine [Snymum-Sdklmbpg-Odza 50-325-40] 1 each PO Q6HR PRN 01/30/24 Calcitrol [Rocaltrol*] 0.25 mcg PO DAILY 01/30/24 Carvedilol [Coreg] 25 mg PO BID 01/30/24 Dapsone [Dapsone*] 100 mg PO DAILY 01/30/24 Hydralazine HCl 100 mg PO Q8HR 01/30/24 Lisinopril [Zestril] 20 mg PO DAILY 01/30/24 Metoprolol Succinate [Toprol Xl] 100 mg PO DAILY 01/30/24 Nifedipine [Procardia Xl] 60 mg PO BID 01/30/24 Ondansetron [Zofran (Odt)*] 4 mg PO Q12H PRN 01/30/24 Terazosin HCl 2 mg PO BID 01/30/24 Sacubitril/Valsartan [Entresto 49 mg-51 mg Tablet] 1 tab PO DAILY 02/27/24 - Past Medical/Surgical History Diabetic: No -: HTN -: ESRD (Dr. Wills/ Juan A) -: Seizures (as a child) -: Brain tumor -: Asthma -: Csection x2 -: Brain Sx -: Kidney Transplant Nephrectomy/transplant was removed recently Psychosocial/ Personal History: Lives at home - Social History Smoking Status: Unknown if ever smoked Alcohol use: No CD- Drugs: No Caffeine use: No Review of Systems 10-point ROS is otherwise unremarkable General: Weakness, Malaise Gastrointestinal: Abdominal Pain Physical Examination Temp Pulse Resp BP Pulse Ox 97.9 F 111 H 18 156/94 H 98 02/27/24 04:00 02/27/24 09:45 02/27/24 09:45 02/27/24 09:45 02/27/24 09:45 General: Oriented x3, Cooperative HEENT: Atraumatic Neck: Supple Respiratory: Normal air movement Cardiovascular: Edema Gastrointestinal: Non-distended, No guarding Musculoskeletal: No clubbing, No contractures Integumentary: No rashes, No cyanosis Neurological: Normal speech Laboratory Data (last 24 hrs) 02/26/24 02/26/24 14:33 14:33 WBC 6.40 Hgb 10.2 L Hct 32.6 L Plt Count 192 Sodium 135 L Potassium 4.5 BUN 50 H Creatinine 6.39 H Glucose 80 Total Bilirubin 1.0 AST 28 ALT 43 Alkaline Phosphatase 66 Lipase 15 Imagings Data: EXAM DESCRIPTION: CT - Angio Aorta For Dissection - 02/26/2024 9:04 pm CLINICAL HISTORY: htn COMPARISON: Abdomen Pelvis W Contrast dated 01/11/2024 TECHNIQUE: Thin axial CT images of the chest, abdomen, and pelvis were obtained during administration of 150 mL Isovue 370 intravenously. Sagittal and coronal reconstructions as well as maximal intensity projection reconstruction were generated and reviewed per an aortic angiography protocol. All CT scans are performed using dose optimization technique as appropriate and may include automated exposure control or mA/KV adjustment according to patient size. FINDINGS: Aorta is normal in diameter with no dissection or other acute aortic findings. Thin linear filling defects seen in the infrarenal abdominal aortic lumen, the superior most of which is seen on sagittal image 67 and axial image 103, with associated indentation of the garcia of the aorta at that level. The inferior most of these is seen following the takeoff of the JADYN, see axial image 120. These may represent residua of resolving mural hematoma, or prior dissection, without evidence of a discrete dissection flap. Reconstruction images show no other significant findings. Pulmonary arteries are within normal limits. No mass or infiltrate in the lung parenchyma. No pneumothorax. Small layering bilateral pleural effusions. No abnormal mediastinal or hilar mass or lymphadenopathy seen. No chest wall mass or abnormal axillary lymphadenopathy. Celiac, SMA and renal arteries show no suspicious findings. Mild to moderate f ree ascites. Solid abdominal viscera and bowel show no significant findings. Atrophic changes of the big sandy kidneys. Right lower quadrant 3.8 x 2.0 cm collection has decreased in size from 4.5 cm on the prior abdominal CT, may represent a resolving postoperative seroma or hematoma. No suspicious mass or abnormal lymphadenopathy. Moderate diffuse body wall edema. IMPRESSION: No acute abnormalities on CT angiogram of the aorta. There are 2 small linear filling defects along the infrarenal abdominal aortic lumen, may represent residua of resolving mural hematomas or prior dissection, without evidence of a discrete dissection flap. Small layering effusions, mild to moderate free ascites, and diffuse body wall edema. Please correlate clinically for evidence of anasarca/third-spacing. LEFT VENTRICULAR WALL MOTION: NORMAL DOPPLER/COLOR FLOW: NORMAL COMMENTS: 1. NORMAL LEFT VENTRICULAR SYSTOLIC FUNCTION, EJECTION FRACTION 60-65%, NORMAL WALL MOTION 2. NORMAL DIASTOLIC FUNCTION 3. MILD MITRAL REGURGITATION 4. MILD TRICUSPID REGURGITATION 5. MILD PULMONARY HYPERTENSION (RIGHT VENTRICULAR SYSTOLIC PRESSURE 35-40 mmHg) Conclusions/Impression: ESRD on HD TTS -HD TIW Failed Renal transplant sp resection of transplanted kidney Hypertensive Urgency HTN with CKD -Cardene gtt -Start Entresto and Nifedipine XL BID -Start Atenolol Peripheral Edema Anasarca -Low sodium diet -HD with UF Anemia in CKD -Retacrit prn CKD MBD -Start Ergo -Start Renvela Hospitalist and ER notes reviewed Thank you kindly for the consultation
[2024-02-27] MEDS: atenoloL 25 MG TAB PO SCH (10:15)
[2024-02-27] MEDS: GABAPENTIN 300 MG CAP PO SCH (10:15)
[2024-02-27] MEDS ORDERED: GABAPENTIN 300 MG CAP ONE (10:38)
[2024-02-27] MEDS ORDERED: FUROSEMIDE 40 MG TABLET PO PRN (16:25)
[2024-02-27] MEDS: HYDRALAZINE HCL 25 MG TABLET PO SCH (16:44)
[2024-02-27] MEDS ORDERED: HYDRALAZINE HCL 10 MG TABLET PO SCH (17:00)
[2024-02-27] MEDS: NIFEDIPINE XL 60 MG TABLET PO SCH (20:37)
[2024-02-27] MEDS: BUMETANIDE 1 MG TABLET PO SCH (20:38)
[2024-02-27] MEDS ORDERED: carvediloL 25 MG TAB PO SCH (21:00)
[2024-02-27] MEDS ORDERED: NA CHLORIDE 0.9% 1,000 ML IV PRN (21:05)
[2024-02-27] MEDS ORDERED: MANNITOL 25% 12.5 GM/50 ML VIAL IV PRN (21:05)
[2024-02-27] MEDS: DIPHENHYDRAMINE 50 MG/ML VIAL IV ONE (21:12)
[2024-02-27] MEDS ORDERED: EPOETIN ALFA 10,000 UNIT/ML VIAL IV SCH (21:15)
[2024-02-27 21:33] VITALS: O2SAT 98
[2024-02-27] MEDS ORDERED: ALBUMIN HUMAN 25% 50 ML IV SCH (22:00)
[2024-02-27] MEDS: atenoloL 50 MG TAB PO SCH (22:24)
[2024-02-28 05:57] VITALS: BMI 29.5
[2024-02-28 06:03] LABS: Absolute Eosinophils 0.7 K/uL (0-0.5); Absolute Lymphocytes (CBC) 0.7 K/uL (0.7-4.9); Absolute Monocytes 0.9 K/uL (0.1-1.3); Absolute Neutrophil 4.5 K/uL (1.8-8.0); Basophils % 0.6 % (0-1.3); Eosinophils % 10.8 % (0-4.4); Hematocrit 29.2 % (36.0-45.0); Hemoglobin 9.6 g/dL (12.0-15.0); Lymphocytes % 9.7 % (15.3-44.8); MCH 28.7 pg (27.0-35.0); MCHC 32.9 g/dL (32.0-36.0); MCV 87.3 fL (80-100); MPV 8.6 fL (7.6-11.3); Monocytes % 12.9 % (3.3-12.3); Nucleated Red Blood Cells % 0.1 % (0-0); Platelets 174 thou/uL (152-406); RBC Red Blood Cell Count 3.34 M/uL (3.86-4.86); Red Cell Distribution Width 18.1 % (12.1-15.2)
[2024-02-28 06:36] LABS: Anion Gap 14.5 mEq/L (5.0-15.0)
[2024-02-28 06:37] LABS: Potassium 5.5 mEq/L (3.5-5.1)
[2024-02-28] MEDS: HYDRALAZINE HCL 25 MG TABLET PO SCH (08:00)
--- NOTE | 2024-02-28 08:02 | P.PN ---
Date of Service: 02/28/24 Vital Signs Temp Pulse Resp BP Pulse Ox 97.5 F 85 20 131/87 94 02/28/24 07:00 02/28/24 07:00 02/28/24 07:00 02/28/24 07:00 02/28/24 07:00 Medications Acetaminophen (Acetaminophen 325 Mg Tablet) 650 mg PO Q4HP PRN PRN Reason: Pain scale 2-4 (Mild) Atenolol (Atenolol 50 Mg Tab) 50 mg PO BEDTIME [facility] Last Admin: 02/27/24 22:24 Dose: 50 mg Bumetanide (Bumetanide 1 Mg Tablet) 3 mg PO BID [facility] Last Admin: 02/27/24 20:38 Dose: 3 mg Calcitriol (Calcitrol 0.25 Mcg Cap) 0.25 mcg PO DAILY [facility] Clonidine HCl (Clonidine 0.3 Mg/Patch) 0.3 mg TD EVERY 7TH DAY [facility] Epoetin Ever (Epoetin Ever 10,000 Unit/Ml Vial) 10,000 unit IV EVERY HD [facility] Furosemide (Furosemide 40 Mg Tablet) 40 mg PO DAILYPRN PRN PRN Reason: edema Gabapentin (Gabapentin 300 Mg Cap) 300 mg PO BID [facility] Last Admin: 02/27/24 20:37 Dose: 300 mg Heparin Sodium (Porcine) (Heparin 5000 Unit/Ml 1 Ml Vial) 5,000 unit SQ Q12HR [facility] Last Admin: 02/27/24 20:39 Dose: 5,000 unit Heparin Sodium (Porcine) (Heparin 1,000 Unit/Ml Vial) 6,000 unit IV EVERY HD PRN PRN Reason: AFTER EACH Hydralazine HCl (Hydralazine Hcl 25 Mg Tablet) 100 mg PO Q8H [facility] Hydromorphone HCl (Hydromorphone Hcl 1 Mg/Ml Inj) 1 mg IV Q6H PRN PRN Reason: Pain scale 8-10 (Severe) Last Admin: 02/27/24 22:24 Dose: 1 mg Albumin Human (Albumin 25%) 50 mls @ 100 mls/hr IV EVERY HD [facility] Lidocaine (Lidocaine 4% Patch) 2 patch TOP DAILY [facility] Mannitol (Mannitol 25% 12.5 Gm/50 Ml Vial) 12.5 gm IV EVERY HD PRN PRN Reason: Titrate to SBP (MUST DEFINE) Nifedipine (Nifedipine Xl 90 Mg Tablet) 90 mg PO BID [facility] Ondansetron HCl (Ondansetron 4 Mg/2 Ml Vial) 4 mg IV Q6HP PRN PRN Reason: NAUSEA / VOMITING Assessment/ Plan: Nephrology Progress Note No Dyspnea No Chest Pain Malaise No Acute Events Overnight Vital Signs, Medications, Blood Work, and Imaging reviewed in the chart General: Oriented x3, Cooperative HEENT: Atraumatic Neck: Supple Respiratory: Normal air movement Cardiovascular: Edema Gastrointestinal: Non-distended, No guarding Musculoskeletal: No clubbing, No contractures Integumentary: No rashes, No cyanosis Neurological: Normal speech Laboratory Data (last 24 hrs) 02/26/24 02/26/24 14:33 14:33 WBC 6.40 Hgb 10.2 L Hct 32.6 L Plt Count 192 Sodium 135 L Potassium 4.5 BUN 50 H Creatinine 6.39 H Glucose 80 Total Bilirubin 1.0 AST 28 ALT 43 Alkaline Phosphatase 66 Lipase 15 Imagings Data: EXAM DESCRIPTION: CT - Angio Aorta For Dissection - 02/26/2024 9:04 pm CLINICAL HISTORY: htn COMPARISON: Abdomen Pelvis W Contrast dated 01/11/2024 TECHNIQUE: Thin axial CT images of the chest, abdomen, and pelvis were obtained during administration of 150 mL Isovue 370 intravenously. Sagittal and coronal reconstructions as well as maximal intensity projection reconstruction were generated and reviewed per an aortic angiography protocol. All CT scans are performed using dose optimization technique as appropriate and may include automated exposure control or mA/KV adjustment according to patient size. FINDINGS: Aorta is normal in diameter with no dissection or other acute aortic findings. Thin linear filling defects seen in the infrarenal abdominal aortic lumen, the superior most of which is seen on sagittal image 67 and axial image 103, with associated indentation of the garcia of the aorta at that level. The inferior most of these is seen following the takeoff of the JADYN, see axial image 120. These may represent residua of resolving mural hematoma, or prior dissection, without evidence of a discrete dissection flap. Reconstruction images show no other significant findings. Pulmonary arteries are within normal limits. No mass or infiltrate in the lung parenchyma. No pneumothorax. Small layering bilateral pleural effusions. No abnormal mediastinal or hilar mass or lymphadenopathy seen. No chest wall mass or abnormal axillary lymphadenopathy. Celiac, SMA and renal arteries show no suspicious findings. Mild to moderate free ascites. Solid abdominal viscera and bowel show no significant findings. Atrophic changes of the [place] kidneys. Right lower quadrant 3.8 x 2.0 cm collection has decreased in size from 4.5 cm on the prior abdominal CT, may represent a resolving postoperative seroma or hematoma. No suspicious mass or abnormal lymphadenopathy. Moderate diffuse body wall edema. IMPRESSION: No acute abnormalities on CT angiogram of the aorta. There are 2 small linear filling defects along the infrarenal abdominal aortic lumen, may represent residua of resolving mural hematomas or prior dissection, without evidence of a discrete dissection flap. Small layering effusions, mild to moderate free ascites, and diffuse body wall edema. Please correlate clinically for evidence of anasarca/third-spacing. LEFT VENTRICULAR WALL MOTION: NORMAL DOPPLER/COLOR FLOW: NORMAL COMMENTS: 1. NORMAL LEFT VENTRICULAR SYSTOLIC FUNCTION, EJECTION FRACTION 60-65%, NORMAL WALL MOTION 2. NORMAL DIASTOLIC FUNCTION 3. MILD MITRAL REGURGITATION 4. MILD TRICUSPID REGURGITATION 5. 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
[2024-02-28] MEDS: LIDOCAINE 4% PATCH TOP SCH (08:18)
[2024-02-28] MEDS: CALCITROL 0.25 MCG CAP PO SCH (08:18)
[2024-02-28] MEDS ORDERED: SACUBITRIL/VALSARTAN 49/51 MG TAB PO SCH (09:00)
[2024-02-28] MEDS ORDERED: lisinopriL 20 MG TAB PO SCH (09:00)
[2024-02-28] MEDS ORDERED: METOPROLOL XL 100 MG TAB PO SCH (09:00)
[2024-02-28] MEDS: DIPHENHYDRAMINE 50 MG/ML VIAL IV PRN (10:04)
--- NOTE | 2024-02-28 12:32 | P.PN ---
Subjective Date of Service: 02/28/24 Chief Complaint: Hypertensive emergency Pt is resting comfortably in bed. She has right arm swelling, Waiting for doppler ultrasound to r/o DVT. She will do dialysis today. Continue BP meds. Off Cardene drip. No other complaints. Review of Systems General: Unremarkable Eyes: Unremarkable ENT: Unremarkable Respiratory: Unremarkable Cardiovascular: Edema Gastrointestinal: Unremarkable Genitourinary: Unremarkable Musculoskeletal: Unremarkable Integumentary: Unremarkable Neurological: Unremarkable Lymphatics: Unremarkable Physical Examination - Vital Signs Temperature: 97.2 F Blood Pressure: 159/105 Pulse: 78 Respirations: 16 Pulse Ox (%): 97 - Physical Exam General: Alert, In no apparent distress, Oriented x3 HEENT: Atraumatic, Normocephalic, PERRLA Neck: Supple, 2+ carotid pulse no bruit, JVD not distended Respiratory: Clear to auscultation bilaterally, Normal air movement Cardiovascular: No edema, Normal pulses, Regular rate/rhythm, Normal S1 S2 Capillary refill: <2 Seconds Gastrointestinal: Normal bowel sounds, Soft and benign, Non-distended Musculoskeletal: No clubbing, No swelling, No contractures Integumentary: No rashes, No breakdown, No significant lesion Neurological: Normal gait, Normal speech, Normal strength at 5/5 x4 extr Lymphatics: No axilla or inguinal lymphadenopathy Assessment And Plan - Plan Hypertensive emergency: Improved. off cardene drip. Will continue nifedipine, hydralazine, Entresto and Atenolol. Acute on chronic CHF possibly systolic/diastolic: BNP is elevated. Will f/u Echo. Continue diuretic, strict I/O and daily weight Right arm swelling: Will f/u doppler ultrasound to r/o DVT. Hyperlipidemia: Continue statin ESRD on dialysis: Continue dialysis per schedule. Nephrology is following. Anemia of chronic disease: Hgb is 9.6. Will monitor H/H. Transfuse when Hgb < 7. Hyperkalemia: k is 5.5. Will improve with dialysis. Pruritus: Will give Benadryl. DVT ppx: SCD Dispo: pending hospital course.
[2024-02-28] MEDS: NIFEDIPINE XL 90 MG TABLET PO SCH (14:12)
--- NOTE | 2024-02-28 16:06 | RAD REPORT ---
EXAM DESCRIPTION: US - UPPER EXTREMITY VENOUS UNILATE - 02/28/2024 3:42 pm CLINICAL HISTORY: Right upper extremity swelling COMPARISON: None. FINDINGS: Echogenic material consistent with acute thrombus is present within the right basilic and right cephalic veins The right internal jugular, subclavian, brachial, axillary, radial and ulnar veins demonstrate phasic signal. These veins veins are generally compressible. Doppler demonstrates good flow Grayscale, color and spectral analysis performed on all vessels IMPRESSION: Acute thrombus right cephalic and right basilic veins
[2024-02-28] MEDS: LABETALOL 20 MG/4ML SYRINGE IV ONE (17:37)
--- NOTE | 2024-02-28 20:22 | P.DS ---
Admission Date: 02/27/24 Discharge Date: 02/29/24 Reason for Admission: Hypertensive emergency Consultations: Dr. Velazco Procedures: HD Brief History of Present Illness: 33 yrs old Female with past medical history of ESRD, hypertension, migraines, history of brain tumor which was removed, history of renal transplant status post removal of around kidney who presents to the ER with flank pain and elevated blood pressure . Patient is a poor historian hence most of the history is obtained from the chart review and also talking to the ER physician. Patient denies any chest pain or shortness of breath Patient was assessed in the ER and was found to have hypertensive emergency and was admitted to the ICU for further management and was started on Cardene drip Hospital Course: Ms. Lopez did well over the course of her hospitalization. She was weaned off the Cardene drip. Her blood pressure is quite labile from 127/84 to 174/100. She feels like her blood pressure rises secondary to pain. [place] makes her ill and then with the vomiting she has a rise in her blood. She states only Dilaudid works for her pain but she will need to see pain management for this regimen. She has an appointment with pain management tomorrow in [place] around 9 AM. As her next dialysis is the day after tomorrow and her blood pressure has been more stable, we will discharge her to the pain management appointment. Of note, she was recently added another hospital and was given medications through a PICC/midline in the right upper extremity. Doppler ultrasound 02/28/2024 shows an acute thrombus in the right cephalic and right basilic veins. She will receive Eliquis 2.5 mg p.o. twice daily upon discharge. <Gladys Donohue - Last Filed: 02/29/24 05:46> Admission Date: 02/27/24 Discharge Date: 02/29/24 Hospital Course: Pt seen and examined. I agree with the note by the [facility]. Continue home meds as prescribed. Take Eliquis 2.5mg po BID for at least 3 - 6 months. FOllow up with PCP and Nephrology within 1 - 2 weeks. <Reg Medina - Last Filed: 02/29/24 11:14> Disposition: ROUTINE DISCHARGE Discharge Condition: GOOD Vital Signs/Physical Exam: Temp Pulse Resp BP Pulse Ox 98.3 F 95 H 16 168/115 H 99 02/28/24 17:00 02/28/24 18:00 02/28/24 18:00 02/28/24 18:00 02/28/24 18:00 General: Alert, In no apparent distress, Oriented x3 HEENT: Atraumatic, Normocephalic Neck: Supple Respiratory: Normal air movement Cardiovascular: Regular rate/rhythm, Edema, Systolic murmur, Diastolic murmur Capillary refill: <2 Seconds Gastrointestinal: Soft and benign Musculoskeletal: No clubbing Integumentary: No rashes Neurological: Normal speech, Normal tone, Normal affect Lymphatics: No axilla or inguinal lymphadenopathy External genitalia: Deferred Rectal: Deferred Laboratory Data at Discharge: WBC 6.80 thou/uL (4.3-10.9) 02/28/24 05:36 Hgb 9.6 g/dL (12.0-15.0) L 02/28/24 05:36 Hct 29.2 % (36.0-45.0) L 02/28/24 05:36 Plt Count 174 thou/uL (152-406) 02/28/24 05:36 Sodium 133 mEq/L (136-145) L 02/28/24 05:36 Potassium 5.5 mEq/L (3.5-5.1) H 02/28/24 05:36 BUN 61 mg/dL (7-18) H 02/28/24 05:36 Creatinine 8.56 mg/dL (0.55-1.02) H 02/28/24 05:36 Glucose 88 mg/dL (74-106) 02/28/24 05:36 Total Bilirubin 1.0 mg/dL (0.2-1.0) 02/26/24 14:33 AST 28 U/L (15-37) 02/26/24 14:33 ALT 43 U/L (13-56) 02/26/24 14:33 Alkaline Phosphatase 66 U/L (45-117) 02/26/24 14:33 Lipase 15 U/L (13-75) 02/26/24 14:33 <Donohue,Gladys Cristian - Last Filed: 02/29/24 05:46> Vital Signs/Physical Exam: Temp Pulse Resp BP Pulse Ox 98.7 F 89 14 179/90 H 95 02/29/24 04:00 02/29/24 07:48 02/29/24 06:00 02/29/24 07:48 02/29/24 06:00 Laboratory Data at Discharge: WBC 6.10 thou/uL (4.3-10.9) 02/29/24 04:50 Hgb 9.8 g/dL (12.0-15.0) L 02/29/24 04:50 Hct 29.7 % (36.0-45.0) L 02/29/24 04:50 Plt Count 152 thou/uL (152-406) 02/29/24 04:50 Sodium 139 mEq/L (136-145) D 02/29/24 07:13 Potassium 4.3 mEq/L (3.5-5.1) D 02/29/24 07:13 BUN 36 mg/dL (7-18) H 02/29/24 07:13 Creatinine 6.01 mg/dL (0.55-1.02) H 02/29/24 07:13 Glucose 88 mg/dL (74-106) 02/29/24 07:13 Total Bilirubin 1.0 mg/dL (0.2-1.0) 02/26/24 14:33 AST 28 U/L (15-37) 02/26/24 14:33 ALT 43 U/L (13-56) 02/26/24 14:33 Alkaline Phosphatase 66 U/L (45-117) 02/26/24 14:33 Lipase 15 U/L (13-75) 02/26/24 14:33 <Reg Medina - Last Filed: 02/29/24 11:14> Diet: Renal Activity: Ad jose luis <Donohue,Gladys Cristian - Last Filed: 02/29/24 05:46> <Reg Medina - Last Filed: 02/29/24 11:14> Home Medications: Furosemide [Lasix*] 40 mg PO DAILYPRN PRN 10/24/23 Clonidine Patch [Catapres-Tts 3*] 0.3 mg TD EVERY 7TH DAY 30 Days #1 box 01/23/24 Bumetanide 3 mg PO BID 01/30/24 Butalb/Acetaminophen/Caffeine [Rlltey-Bijbezyp-Ihxm 50-325-40] 1 each PO Q6HR PRN 01/30/24 Calcitrol [Rocaltrol*] 0.25 mcg PO DAILY 01/30/24 Carvedilol [Coreg] 25 mg PO BID 01/30/24 Dapsone [Dapsone*] 100 mg PO DAILY 01/30/24 Hydralazine HCl 100 mg PO Q8HR 01/30/24 Lisinopril [Zestril] 20 mg PO DAILY 01/30/24 Metoprolol Succinate [Toprol Xl] 100 mg PO DAILY 01/30/24 Nifedipine [Procardia Xl] 60 mg PO BID 01/30/24 Ondansetron [Zofran (Odt)*] 4 mg PO Q12H PRN 01/30/24 Terazosin HCl 2 mg PO BID 01/30/24 Sacubitril/Valsartan [Entresto 49 mg-51 mg Tablet] 1 tab PO DAILY 02/27/24 Apixaban [Eliquis] 2.5 mg PO BID #60 tablet 02/28/24 New Medications: Apixaban [Eliquis] 2.5 mg PO BID #60 tablet Physician Discharge Instructions: Ms. Lopez did well over the course of her hospitalization. She was weaned off the Cardene drip. Her blood pressure is quite labile from 127/84 to 174/100. She feels like her blood pressure rises secondary to pain. [place] makes her ill and then with the vomiting she has a rise in her blood. She states only Dilaudid works for her pain but she will need to see pain management for this regimen. She has an appointment with pain management tomorrow in [place] around 9 AM. As her next dialysis is the day after tomorrow and her blood pressure has been more stable, we will discharge her to the pain management appointment. Of note, she was recently added another hospital and was given medications through a PICC/midline in the right upper extremity. Doppler ultra sound 02/28/2024 shows an acute thrombus in the right cephalic and right basilic veins. She will receive Eliquis 2.5 mg p.o. twice daily upon discharge. Please maintain medication list. Dialysis Tuesday. Follow-up with pain management upon discharge today Followup: Spencer Velazco DO [Primary Care Provider] -
[2024-02-28] MEDS: hydrOXYzine HCL 25 MG TAB PO ONE (20:32)
[2024-02-28] MEDS: APIXABAN 2.5 MG TABLET PO SCH (20:32)
[2024-02-29 01:58] VITALS: TEMP 98.7
[2024-02-29 05:21] LABS: Absolute Eosinophils 0.6 K/uL (0-0.5); Absolute Lymphocytes (CBC) 0.6 K/uL (0.7-4.9); Absolute Monocytes 0.8 K/uL (0.1-1.3); Absolute Neutrophil 4.1 K/uL (1.8-8.0); Basophils % 0.5 % (0-1.3); Eosinophils % 9.4 % (0-4.4); Hematocrit 29.7 % (36.0-45.0); Hemoglobin 9.8 g/dL (12.0-15.0); MCV 87.8 fL (80-100); MPV 8.1 fL (7.6-11.3); Monocytes % 13.9 % (3.3-12.3); Neutrophils % 66.2 % (41.7-73.7); Nucleated Red Blood Cells % 0.1 % (0-0); Platelets 152 thou/uL (152-406); RBC Red Blood Cell Count 3.38 M/uL (3.86-4.86); Red Cell Distribution Width 18.3 % (12.1-15.2)
[2024-02-29] MEDS: LOSARTAN POTASSIUM 50 MG TABLET PO SCH (07:40)
[2024-02-29 07:49] VITALS: BP 179/90
[2024-02-29 08:01] LABS: Anion Gap 10.3 mEq/L (5.0-15.0); Potassium 4.3 mEq/L (3.5-5.1)
[2024-03-03] MEDS ORDERED: CLONIDINE 0.3 MG/PATCH TD SCH (09:00)
== END 2024-02-29 09:00 | disposition home or self-care (01) | DRG 304 ==
LOC: ER 12:56 → ERHOLD 02-27 00:13 → 3RD-ICU 02-27 07:35
PROVIDERS: ADMIT Family Medicine; ATTEND Hospitalist
PROC: 5A1D70Z Performance of Urinary Filtration, Intermittent, Less than 6 Hours Per Day (ICD-10-PCS; principal; 2024-02-28)
DX: I16.0 Hypertensive urgency (principal); I50.43 Acute on chronic combined systolic (congestive) and diastolic (congestive) heart failure; N18.6 End stage renal disease; I82.611 Acute embolism and thrombosis of superficial veins of right upper extremity; D63.1 Anemia in chronic kidney disease; I13.2 Hypertensive heart and chronic kidney disease with heart failure and with stage 5 chronic kidney disease, or end stage renal disease; E78.5 Hyperlipidemia, unspecified; Z99.2 Dependence on renal dialysis; L29.9 Pruritus, unspecified; E87.5 Hyperkalemia; Z90.5 Acquired absence of kidney; Z98.85 Transplanted organ removal status; Z86.011 Personal history of benign neoplasm of the brain
CPT/HCPCS: 36415; 71275; 74175; 80048; 80053; 81001; 81025; 83690; 83880; 84484; 85025; 93005; 93971; 94760; 99285; J0360; J1170; J1200; J1644; J1940; J2001; Q9967

== ENCOUNTER 2024-03-05 12:47 | Inpatient (IN) | payer OTHER ==
[2024-03-05] MEDS ORDERED: LABETALOL 20 MG/4ML SYRINGE IV ONE (13:05)
[2024-03-05] MEDS ORDERED: ASPIRIN 81 MG CHEWABLE TABLET ONE (13:05)
[2024-03-05] MEDS ORDERED: NITROGLYCERIN 0.4 MG/TAB SL ONE (13:05)
[2024-03-05 13:30] LABS: Absolute Basophils 0.1 K/uL (0-0.5); Absolute Eosinophils 0.3 K/uL (0-0.5); Absolute Lymphocytes (CBC) 0.6 K/uL (0.7-4.9); Absolute Monocytes 0.5 K/uL (0.1-1.3); Absolute Neutrophil 3.5 K/uL (1.8-8.0); Basophils % 1.4 % (0-1.3); Eosinophils % 5.3 % (0-4.4); Hematocrit 28.4 % (36.0-45.0); Hemoglobin 9.1 g/dL (12.0-15.0); Lymphocytes % 11.3 % (15.3-44.8); MCH 28.9 pg (27.0-35.0); MCHC 32.2 g/dL (32.0-36.0); MCV 89.8 fL (80-100); MPV 8.9 fL (7.6-11.3); Monocytes % 10.7 % (3.3-12.3); Neutrophils % 71.3 % (41.7-73.7); Nucleated Red Blood Cells % 0.2 % (0-0); Platelets 172 thou/uL (152-406); RBC Red Blood Cell Count 3.16 M/uL (3.86-4.86); Red Cell Distribution Width 17.7 % (12.1-15.2)
--- NOTE | 2024-03-05 13:37 | RAD REPORT ---
EXAM DESCRIPTION: CTAngio Aorta For Dissection - 03/05/2024 1:23 pm CLINICAL HISTORY: chest pain COMPARISON: Angio Aorta For Dissection dated 02/26/2024 TECHNIQUE: CTA of the chest, abdomen, and pelvis was performed with IV contrast. All CT scans are performed using dose optimization technique as appropriate and may include automated exposure control or mA/KV adjustment according to patient size. FINDINGS: Thorax: Chest Wall: No abnormal mass Lungs: Mild interlobular septal thickening. Mild bronchial wall thickening . Pleura: Small bilateral pleural effusion . Sandra/Mediastinum: No lymphadenopathy. Aorta/Pulmonary Arteries: Unremarkable Heart: Mild cardiomegaly. Abdomen/Pelvis: Liver: Hepatomegaly. No focal masses . Biliary: No biliary ductal dilatation. Stomach: No significant focal abnormality. Duodenum: No significant focal abnormality. Pancreas: No significant abnormality. Spleen: No significant abnormality. Adrenal: No suspicious lesions. Kidney/ureter: No hydronephrosis. No renal calculi. Atrophic kidneys. Retroperitoneum: No retroperitoneal adenopathy. Vascular: Unchanged short-segment dissection in the infrarenal abdominal aorta, also seen on the CT f rom 02/26/2024. Bowel: No significant focal abnormality. Peritoneum: Mild ascites. Body wall edema. Bladder: Grossly unremarkable. Reproductive: No adnexal masses. Bones: No acute fracture. Other: n/a IMPRESSION: Unchanged short-segment dissection flap at the infrarenal abdominal aorta. No aneurysm i s identified. Similar findings regarded anasarca with body wall edema, mild ascites, and small pleura l effusions. Pulmonary edema is also present, otherwise no acute findings in the chest. No thoracic a ortic dissection, thoracic aortic aneurysm, or pulmonary embolus.
[2024-03-05 13:58] LABS: Albumin 3.3 g/dL (3.4-5.0); Albumin/Globulin Ratio 0.9 (1.1-1.8); Anion Gap 13.7 mEq/L (5.0-15.0); Bilirubin Direct 0.4 mg/dL (0-0.2); Bilirubin Indirect, Calculated 0.3 mg/dL (0.2-0.8); Bilirubin Total 0.7 mg/dL (0.2-1.0); Globulin 3.5 g/dL (2.3-3.5); Magnesium 2.1 mg/dL (1.6-2.4); Potassium 4.7 mEq/L (3.5-5.1); Protein, Total 6.8 g/dL (6.4-8.2); Troponin High Sensitivity 31.9 pg/mL (<58.9)
[2024-03-05] MEDS ORDERED: HYDRALAZINE HCL 20 MG/ML VIAL ONE (14:22)
[2024-03-05] MEDS ORDERED: MORPHINE 4 MG/ML SYR ONE (15:10)
[2024-03-05] MEDS ORDERED: ONDANSETRON 4 MG/2 ML VIAL ONE (15:10)
[2024-03-05] MEDS ORDERED: Nicardipine/NS 25 MG/250 ML KIT IV ONE (15:11)
--- NOTE | 2024-03-05 15:12 | EDPHYS ---
Physician Documentation [facility] Name: Shaun Lopez Age: 33 yrs Sex: Female : 1990 Arrival Date: 03/05/2024 Time: 12:47 Bed 18 Private MD: ED Physician Abdoul Burris HPI: 03/05 13:29 This 33 yrs old Female presents to ER via Ambulatory with complaints of Chest Pain. rt 13:29 Patient presents to the ED with chest pain with nausea starting this morning. Reports rt that pain is worse with a cough. Denies difficulty breathing. Denies other acute complaints at this time, symptoms are moderate in severity, no other aggravating or alleviating factors.. Historical: - Allergies: 13:19 Adhesives; tl4 13:19 AVOCADO (LAURUS PERSEA); tl4 13:19 Bactrim; tl4 13:19 Latex; tl4 - Home Meds: 13:19 calcitriol 0.25 mcg Oral cap 1 cap daily [Active]; carvedilol 25 mg Oral tablet 2 times tl4 per day [Active]; nifedipine 60 mg Oral TbER 1 tab twice daily [Active]; hydralazine 25 mg oral tablet 3 times per day [Active]; Entresto 49-51 mg oral tablet 2 times per day [Active]; furosemide 40 mg Oral tablet daily [Active]; ondansetron HCl 4 mg Oral tablet [Active]; Fioricet 50-300-40 mg Oral capsule [Active]; 13:28 clonidine HCl 0.1 mg Oral tab 1 tab every 6 hours [Active]; dicyclomine 20 mg Oral tl4 tablet [Active]; losartan potassium 50 mg 1 tab daily [Active]; - PMHx: 13:19 brain tumor-removed; Dialysis; End stage renal disease; Hypertension; Migraines; tl4 Seizures; - PSHx: 13:19 brain SX x 2; section; donor kidney removed; Fistula- L arm; kidney biopsy; tl4 kidney transplant; - Immunization history:: Adult Immunizations unknown. - Infectious Disease History:: Denies. - Social history:: Smoking status: Patient denies any tobacco usage or history of. - Family history:: not pertinent. ROS: 13:29 Constitutional: Negative for fever, chills, and weight loss, Respiratory: Negative for rt shortness of breath, cough, wheezing, and pleuritic chest pain, MS/Extremity: Negative for injury and deformity, Skin: Negative for injury, rash, and discoloration, Neuro: Negative for headache, weakness, numbness, tingling, and seizure, 13:29 Cardiovascular: Positive for chest pain, Negative for edema, 13:29 Abdomen/GI: Positive for nausea, Negative for abdominal pain, Exam: 13:29 Constitutional: This is a well developed, well nourished patient who is awake, alert, rt and in no acute distress. Head/Face: Normocephalic, atraumatic. Chest/axilla: Normal chest wall appearance and motion. Nontender with no deformity. No lesions are appreciated. Cardiovascular: Regular rate and rhythm with a normal S1 and S2. No gallops, murmurs, or rubs. Normal PMI, no JVD. No pulse deficits. Respiratory: Lungs have equal breath sounds bilaterally, clear to auscultation and percussion. No rales, rhonchi or wheezes noted. No increased work of breathing, no retractions or nasal flaring. Abdomen/GI: Soft, non-tender, with normal bowel sounds. No distension or tympany. No guarding or rebound. No evidence of tenderness throughout. Skin: Warm, dry with normal turgor. Normal color with no rashes, no lesions, and no evidence of cellulitis. MS/ Extremity: Pulses equal, no cyanosis. Neurovascular intact. Full, normal range of motion. Neuro: Awake and alert, GCS 15, oriented to person, place, time, and situation. Cranial nerves II-XII grossly intact. Motor strength 5/5 in all extremities. Sensory grossly intact. Cerebellar exam normal. Normal gait. 13:29 ECG was reviewed by the Attending Physician. Vital Signs: 12:55 BP 217 / 136; Pulse 89; Resp 14; Temp 98.7(TE); Pulse Ox 100% on R/A; Weight 62.6 kg; tl4 Height 5 ft. 1 in. ; Pain 6/10; 13:33 BP 191 / 120; Pulse 83; Resp 17; Pulse Ox 99% on R/A; rs5 13:38 BP 175 / 117; Pulse 91; Resp 17; Pulse Ox 97% on R/A; rs5 14:20 BP 213 / 120; Pulse 84; Resp 17; Pulse Ox 99% on R/A; rs5 14:40 BP 193 / 116; Pulse 89; Resp 16; Pulse Ox 99% on R/A; rs5 15:20 BP 177 / 109; Pulse 91; Resp 17; Pulse Ox 98% ; rs5 16:14 BP 169 / 107; Pulse 94; Resp 17; Pulse Ox 97% on R/A; rs5 12:55 Body Mass Index 26.07 (62.60 kg, 154.94 cm) tl4 12:55 Pain Scale: Adult tl4 MDM: 12:55 Patient medically screened. rt 15:12 Differential diagnosis: ACS, hypertensive emergency, nonspecific chest pain, aortic rt dissection. Data reviewed: vital signs, nurses notes, lab test result(s), EKG, radiologic studies. Consideration of Admission/Observation Patient was admitted/placed on observation. Management of patient was discussed with the following: Hospitalist: Agrees to admit. I considered the following discharge prescriptions or medication management in the emergency department Medications were administered in the Emergency Department. See MAR. Independent interpretation of the following test(s) in the Emergency Department CT Scan: My interpretation is Pulmonary edema seen on my interpretation of CT scan images. Test considered but Not performed: X-ray: CT performed, x-rays redundant. Care significantly affected by the following chronic conditions: Hypertension, Chronic Kidney Disease. Counseling: I had a detailed discussion with the patient and/or guardian regarding the historical points, exam findings, and any diagnostic results supporting the discharge/admit diagnosis, lab results, radiology results, the need for further work-up and treatment in the hospital. Response to treatment: the patient's symptoms have markedly improved after treatment. 03/05 13:01 Order name: Basic Metabolic Panel; Complete Time: 13:59 rt 03/05 13:01 Order name: CBC with Diff; Complete Time: 13:52 rt 03/05 13:01 Order name: LFT's; Complete Time: 13:59 rt 03/05 13:01 Order name: Magnesium; Complete Time: 13:59 rt 03/05 13:01 Order name: NT PRO-BNP; Complete Time: 13:59 rt 03/05 13:01 Order name: Troponin HS; Complete Time: 13:59 rt 03/05 15:34 Order name: T4 Free EDMS 03/05 15:34 Order name: Thyroid Stimulating Hormone EDMS 03/05 15:34 Order name: Basic Metabolic Panel EDMS 03/05 15:34 Order name: Basic Metabolic Panel EDMS 03/05 15:34 Order name: Basic Metabolic Panel EDMS 03/05 15:34 Order name: Basic Metabolic Panel EDMS 03/05 15:34 Order name: Basic Metabolic Panel EDMS 03/05 15:34 Order name: Basic Metabolic Panel EDMS 03/05 15:34 Order name: Basic Metabolic Panel EDMS 03/05 15:34 Order name: Basic Metabolic Panel EDMS 03/05 15:34 Order name: CBC with Automated Diff EDMS 03/05 15:34 Order name: CBC with Automated Diff EDMS 03/05 15:34 Order name: Urinalysis w/ reflexes EDMS 03/05 15:35 Order name: CBC with Automated Diff EDMS 03/05 15:35 Order name: CBC with Automated Diff EDMS 03/05 15:35 Order name: CBC with Automated Diff EDMS 03/05 15:35 Order name: CBC with Automated Diff EDMS 03/05 15:35 Order name: CBC with Automated Diff EDMS 03/05 15:35 Order name: CBC with Automated Diff EDMS 03/05 15:35 Order name: Lipid Profile EDMS 03/05 15:35 Order name: Lipid Profile EDMS 03/05 15:35 Order name: Magnesium EDMS 03/05 15:35 Order name: Magnesium EDMS 03/05 15:35 Order name: Magnesium EDMS 03/05 15:35 Order name: Magnesium EDMS 03/05 15:35 Order name: Magnesium EDMS 03/05 15:35 Order name: Magnesium EDMS 03/05 15:35 Order name: Magnesium EDMS 03/05 15:35 Order name: Magnesium EDMS 03/05 15:35 Order name: Phosphorus EDMS 03/05 15:35 Order name: Phosphorus EDMS 03/05 15:35 Order name: Phosphorus EDMS 03/05 15:35 Order name: Phosphorus EDMS 03/05 15:35 Order name: Phosphorus EDMS 03/05 15:35 Order name: Phosphorus EDMS 03/05 15:35 Order name: Phosphorus EDMS 03/05 15:35 Order name: Phosphorus EDMS 03/05 15:35 Order name: Troponin High Sensitivity EDMS 03/05 15:35 Order name: Troponin High Sensitivity EDMS 03/05 15:35 Order name: Troponin High Sensitivity EDMS 03/05 13:01 Order name: CT Aorta for Dissection; Complete Time: 13:52 rt 03/05 13:01 Order name: EKG; Complete Time: 13: rt 03/05 15:34 Order name: CONS Physician Consult EDMS 03/05 13:01 Order name: Cardiac monitoring; Complete Time: 13:19 rt 03/05 13:01 Order name: EKG - Nurse/Tech; Complete Time: 13:19 rt 03/05 13:01 Order name: IV Saline Lock; Complete Time: 13:19 rt 03/05 13:01 Order name: Labs collected and sent; Complete Time: 13:19 rt 03/05 13:01 Order name: O2 Per Protocol; Complete Time: 13:19 rt 03/05 13:01 Order name: O2 Sat Monitoring; Complete Time: 13:19 rt 03/05 14:45 Order name: Misc. Order: goal MAP 120; Complete Time: 16:14 rt EC:29 Rate is 85 beats/min. Rhythm is regular, Normal Sinus Rhythm with No ectopy, lafb. Left rt axis deviation noted. MA interval is normal. QRS interval is normal. QT interval is normal. No Q waves. No ST changes noted. Interpreted by me. Administered Medications: 13:19 Drug: Nitroglycerin Sublingual 0.4 mg Sublingual once; every five minute if needed x3 rs5 Route: Sublingual; 13:19 Drug: Aspirin PO Chewable Tablet 324 mg PO once; 81 mg tablets x 4 Route: PO; rs5 13:19 Drug: Labetalol IV 10 mg IV at calculated rate once Route: IV; Rate: calculated rate; rs5 Site: right femoral; 13:25 Drug: Nitroglycerin Sublingual 0.4 mg Sublingual once; every five minute if needed x3 rs5 Route: Sublingual; 13:31 Drug: Nitroglycerin Sublingual 0.4 mg Sublingual once; every five minute if needed x3 rs5 Route: Sublingual; 14:25 Drug: hydrALAZINE IVP 20 mg IVP once Route: IVP; Site: right forearm; rs5 15:00 Drug: niCARdipine IV 5 mg/hr IV at calculated rate See Administration Instructions; rs5 (Standard concentration 25 mg / 250 mL NS); Recommended max rate 15 mg/hr; Titrate 2.5 mg/hr as often as every 15 minutes to achieve goal (see titration policy); Route: IV; Rate: calculated rate; Site: right forearm; 15:00 Drug: morphine IVP or IV 4 mg IVP once over 4 mins Route: IVP; Infused Over: 4 mins; rs5 Site: right forearm; 15:00 Drug: Ondansetron IVP 4 mg IVP once; over 2 minutes Route: IVP; Site: right forearm; rs5 Disposition: 15:12 Critical Care:. rt Disposition Summary: 03/05/24 15:11 Hospitalization Ordered Notes: Hospitalization Status: Inpatient Admission rt Provider: Clovis Barclay rt Location: Intensive Care Unit rt Condition: Guarded rt Problem: new rt Symptoms: have improved rt Bed/Room Type: Standard rt Room Assignment: 4-(03/05/24 15:39) bc6 Diagnosis - Chest pain, unspecified rt - Hypertensive emergency rt Forms: - Medication Reconciliation Form rt - SBAR form rt - Leadership Thank You Letter rt Critical care time excluding procedures: 15:12 Critical care time: Bedside Care: 30 minutes, Family Intervention: 5 minutes. Total rt time: 35 minutes Signatures: Dispatcher [employer] EDMS Abdoul Burris MD MD rt Marquez Bower RN RN rs5 Luz Elena Jacobsen bc6 Lakhwinder Roy, JERALD RN tl4 Corrections: (The following items were deleted from the chart) 13:29 13:19 Home Meds: mycophenolate mofetil 250 mg Oral capsule 3 caps; tl4 tl4 13:30 13:29 Patient presents to the ED with chest pain. rt rt 15:39 15:11 rt bc6
--- NOTE | 2024-03-05 15:12 | ER ---
Nurse's Notes [facility] Name: Shaun Lopez Age: 33 yrs Sex: Female : 1990 Arrival Date: 03/05/2024 Time: 12:47 Bed 18 Private MD: Diagnosis: Chest pain, unspecified;Hypertensive emergency Presentation: 03/05 12:55 Chief complaint: Patient states: Pt c/o stabbing upper chest pain that gets worse with tl4 cough and nausea since this morning. Pt denies any history of similar episodes. Pt denies SOB, fever/chills, diaphoresis, dizziness. Pt had dialysis on Tuesday without complications. Coronavirus screen: cough unrelated to allergies. Ebola Screen: No symptoms or risks identified at this time. Initial Sepsis Screen: Does the patient meet any 2 criteria? No. Patient's initial sepsis screen is negative. Does the patient have a suspected source of infection? No. Patient's initial sepsis screen is negative. Risk Assessment: Do you want to hurt yourself or someone else? Patient reports no desire to harm self or others. Onset of symptoms was March 05, 2024 at 08:00. 12:55 Method Of Arrival: Ambulatory tl4 12:55 Acuity: VERNA 3 tl4 Triage Assessment: 13:02 General: Appears in no apparent distress. Behavior is calm, cooperative. Pain: tl4 Complains of pain in anterior aspect of right upper chest and anterior aspect of left upper chest. EENT: No deficits noted. No signs and/or symptoms were reported regarding the EENT system. Neuro: Level of Consciousness is awake, alert, obeys commands, Oriented to person, place, time, situation, Moves all extremities. Full function Gait is steady, Speech is normal. Cardiovascular: Reports chest pain, fatigue, nausea, Denies diaphoresis, lightheadedness, palpitations, shortness of breath, syncope, Capillary refill < 3 seconds Patient's skin is warm and dry. Respiratory: Reports cough that is pain with cough Airway is patent Respiratory effort is even, unlabored, Respiratory pattern is regular, symmetrical. GI: Reports nausea. : No signs and/or symptoms were reported regarding the genitourinary system. Derm: No signs and/or symptoms reported regarding the dermatologic system. Musculoskeletal: No signs and/or symptoms reported regarding the musculoskeletal system. Historical: - Allergies: 13:19 Adhesives; tl4 13:19 AVOCADO (LAURUS PERSEA); tl4 13:19 Bactrim; tl4 13:19 Latex; tl4 - Home Meds: 13:19 calcitriol 0.25 mcg Oral cap 1 cap daily [Active]; carvedilol 25 mg Oral tablet 2 times tl4 per day [Active]; nifedipine 60 mg Oral TbER 1 tab twice daily [Active]; hydralazine 25 mg oral tablet 3 times per day [Active]; Entresto 49-51 mg oral tablet 2 times per day [Active]; furosemide 40 mg Oral tablet daily [Active]; ondansetron HCl 4 mg Oral tablet [Active]; Fioricet 50-300-40 mg Oral capsule [Active]; 13:28 clonidine HCl 0.1 mg Oral tab 1 tab every 6 hours [Active]; dicyclomine 20 mg Oral tl4 tablet [Active]; losartan potassium 50 mg 1 tab daily [Active]; - PMHx: 13:19 brain tumor-removed; Dialysis; End stage renal disease; Hypertension; Migraines; tl4 Seizures; - PSHx: 13:19 brain SX x 2; section; donor kidney removed; Fistula- L arm; kidney biopsy; tl4 kidney transplant; - Immunization history:: Adult Immunizations unknown. - Infectious Disease History:: Denies. - Social history:: Smoking status: Patient denies any tobacco usage or history of. - Family history:: not pertinent. Screenin:52 [facility] ED Fall Risk Assessment (Adult) History of falling in the last 3 months, rs5 including since admission No falls in past 3 months (0 pts) Confusion or Disorientation No (0 pts) Intoxicated or Sedated No (0 pts) Impaired Gait No (0 pts) Mobility Assist Device Used No (0 pt) Altered Elimination No (0 pt) Score/Fall Risk Level 0 - 2 = Low Risk Oriented to surroundings, Maintained a safe environment. Abuse screen: Denies threats or abuse. Nutritional screening: No deficits noted. Tuberculosis screening: No symptoms or risk factors identified. Assessment: 12:52 General: Appears distressed, uncomfortable, Behavior is cooperative, anxious. Pain: rs5 Complains of pain in chest Pain does not radiate. Pain currently is 9 out of 10 on a pain scale. Quality of pain is described as aching, Pain began Is continuous. Neuro: Level of Consciousness is awake, alert, obeys commands, Oriented to person, place, time, situation. Cardiovascular: Patient's skin is warm and dry. Respiratory: Airway is patent Respiratory effort is even, unlabored, Respiratory pattern is regular, symmetrical. GI: Abdomen is round non-distended, Abd is soft and non tender X 4 quads. : No signs and/or symptoms were reported regarding the genitourinary system. EENT: No signs and/or symptoms were reported regarding the EENT system. Derm: Skin is intact, Skin is pink, warm \T\ dry. Musculoskeletal: Range of motion: intact in all extremities. 13:35 Reassessment: to bedside for med adm, 3 sublingual nitro adm for chest pain relief. . rs5 13:48 Reassessment: Patient is alert, oriented x 3, equal unlabored respirations, skin rs5 warm/dry/pink. Patient is alert/active/playful, equal unlabored respirations, skin warm/dry/pink. Patient denies pain at this time. Patient states feeling better. 13:48 Cardiovascular: Rhythm is regular. rs5 14:21 Reassessment: provider notified of elevated blood pressure readings. rs5 16:05 Reassessment: report given to RN from ICU. rs5 Vital Signs: 12:55 BP 217 / 136; Pulse 89; Resp 14; Temp 98.7(TE); Pulse Ox 100% on R/A; Weight 62.6 kg; tl4 Height 5 ft. 1 in. ; Pain 6/10; 13:33 BP 191 / 120; Pulse 83; Resp 17; Pulse Ox 99% on R/A; rs5 13:38 BP 175 / 117; Pulse 91; Resp 17; Pulse Ox 97% on R/A; rs5 14:20 BP 213 / 120; Pulse 84; Resp 17; Pulse Ox 99% on R/A; rs5 14:40 BP 193 / 116; Pulse 89; Resp 16; Pulse Ox 99% on R/A; rs5 15:20 BP 177 / 109; Pulse 91; Resp 17; Pulse Ox 98% ; rs5 16:14 BP 169 / 107; Pulse 94; Resp 17; Pulse Ox 97% on R/A; rs5 12:55 Body Mass Index 26.07 (62.60 kg, 154.94 cm) tl4 12:55 Pain Scale: Adult tl4 ED Course: 12:50 Patient arrived in ED. mr 12:51 Abdoul Burris MD is Attending Physician. rt 12:52 No provider procedures requiring assistance completed. rs5 12:55 Inserted saline lock: 20 gauge in right forearm, using aseptic technique. Blood rs5 collected. Flushed with 10 mL NS. 13:04 Ingris Rivera, RN is Primary Nurse. db 13:19 Triage completed. tl4 13:25 CT Aorta for Dissection In Process Unspecified. EDMS 13:26 Arm band placed on right wrist. tl4 13:26 Patient has correct armband on for positive identification. Placed in gown. Bed in low tl4 position. Call light in reach. Side rails up X 1. Provided Education on: call ch, ed process. Client placed on continuous cardiac and pulse oximetry monitoring. NIBP monitoring applied. master chef on. 15:02 1502 CM met with patient at bedside in the ED exam room. Patient identified by name and ane . Demographic sheet confirmed. Ms Morrison states she lives in a 2 story home with her two children. Patient reports she does not have HH, home oxygen, or DME. She reports that prior to admission, she performs ADLs independently and has dialysis on Tuesdays, and Saturdays through [facility] in [place], [place]. MPOA is in place. Ms Morrison' preferred plan is return home upon discharge. She states she has her vehicle her at the hospital and plans on driving herself home and did state that her mother Noir is able to transport her home should she need help. CM team will continue to follow and coordinate care. 15:10 Clovis Barclay MD is Hospitalizing Provider. rt 16:14 Thyroid Stimulating Hormone Sent. rs5 16:14 Basic Metabolic Panel Sent. rs5 Administered Medications: 13:19 Drug: Nitroglycerin Sublingual 0.4 mg Sublingual once; every five minute if needed x3 rs5 Route: Sublingual; 13:19 Drug: Aspirin PO Chewable Tablet 324 mg PO once; 81 mg tablets x 4 Route: PO; rs5 13:19 Drug: Labetalol IV 10 mg IV at calculated rate once Route: IV; Rate: calculated rate; rs5 Site: right femoral; 13:25 Drug: Nitroglycerin Sublingual 0.4 mg Sublingual once; every five minute if needed x3 rs5 Route: Sublingual; 13:31 Drug: Nitroglycerin Sublingual 0.4 mg Sublingual once; every five minute if needed x3 rs5 Route: Sublingual; 14:25 Drug: hydrALAZINE IVP 20 mg IVP once Route: IVP; Site: right forearm; rs5 15:00 Drug: niCARdipine IV 5 mg/hr IV at calculated rate See Administration Instructions; rs5 (Standard concentration 25 mg / 250 mL NS); Recommended max rate 15 mg/hr; Titrate 2.5 mg/hr as often as every 15 minutes to achieve goal (see titration policy); Route: IV; Rate: calculated rate; Site: right forearm; 15:00 Drug: morphine IVP or IV 4 mg IVP once over 4 mins Route: IVP; Infused Over: 4 mins; rs5 Site: right forearm; 15:00 Drug: Ondansetron IVP 4 mg IVP once; over 2 minutes Route: IVP; Site: right forearm; rs5 Outcome: 15:11 Decision to Hospitalize by Provider. rt 16:17 Patient left the ED. rs5 Signatures: Dispatcher [employer] EDMS Marianna Pearson, Reg Reg mr Ingris Rivera, RN RN db Abdoul Burris MD MD rt Marquez Bower RN RN rs5 Lakhwinder Roy RN RN tl4 Samantha Hassan RN RN ane Corrections: (The following items were deleted from the chart) 13:29 13:19 Home Meds: mycophenolate mofetil 250 mg Oral capsule 3 caps; tl4 tl4 15:19 15:19 niCARdipine IV 5 mg/hr IV at calculated rate in right forearm rs5 rs5 16:14 13:38 BP 175 / 117; Pulse 84bpm; Resp 17bpm; Pulse Ox 99% RA; rs5 rs5 16:14 14:40 BP 193 / 116; Pulse 84bpm; Resp 17bpm; Pulse Ox 99% RA; rs5 rs5
[2024-03-05] MEDS ORDERED: ACETAMINOPHEN 500 MG TAB PO PRN (15:27)
[2024-03-05] MEDS ORDERED: ACETAMINOPHEN 325 MG TABLET PO PRN (15:27)
--- NOTE | 2024-03-05 16:20 | P.HP ---
Certification for Inpatient Patient admitted to: Inpatient With expected LOS: >2 Midnights Patient will require the following post-hospital care: None Practitioner: I am a practitioner with admitting privileges, knowledge of patient current condition, hospital course, and medical plan of care. Services: Services provided to patient in accordance with Admission requirements found in Title 42 Section 412.3 of the Code of Federal Regulations Patient History Date of Service: 03/05/24 Reason for admission: HTN emergency History of Present Illness: Shaun Lopez is a 33 year old female with Pmhx of ESRD, HTN causing CKD (TTS dialysis), migraines, brain tumor removed, right kidney transplant/nephrectomy d/t rejection, who presents to the ED with chief complaint of chest pain. She called the dialysis nurse and was told to come to the ED. she was recently discharged from ICU after recovering from HTN emergency. She reports restarting her current medications and checking her blood pressure daily. She reports remaining compliant with medication management and dialysis appointments. She has a complicated history of hypertension which started five years ago when she gave to her son. This hypertension has caused kidney failure resulting with a right kidney transplant then nephrectomy secondary to rejection. She is currently on the kidney transplant list in [place]. Upon arrival to the ED, BP 217/136 and she was started on a cardene gtt. Initial vitals BP 217 / 136; Pulse 89; Resp 14; Temp 98.7(TE); Pulse Ox 100% on R/A; Laboratory evaluation BUN/creatinine 29/6.83, GFR 8, BNP 144,081, sodium 135, H&H 9.1/28.4, troponin 31.9 CTA dissection reports Unchanged short-segment dissection flap at the infrarenal abdominal aorta. No aneurysm is identified. Similar findings regarded anasarca with body wall edema, mild ascites, and small pleural effusions. Pulmonary edema is also present, otherwise no acute findings in the chest. No th oracic aortic dissection, thoracic aortic aneurysm, or pulmonary embolus. Shaun will be admitted to hospitalist service for further evaluation and treatment of HTN emergency and jorge, Dr. Velazco consulted. Allergies sulfamethoxazole [From Bactrim] Allergy (Verified 10/27/23 00:24) Itching/Hives/Rash trimethoprim [From Bactrim] Allergy (Verified 10/27/23 00:24) Itching/Hives/Rash Home Medications: Furosemide [Lasix*] 40 mg PO DAILYPRN PRN 10/24/23 Clonidine Patch [Catapres-Tts 3*] 0.3 mg TD EVERY 7TH DAY 30 Days #1 box 01/23/24 Bumetanide 3 mg PO BID 01/30/24 Butalb/Acetaminophen/Caffeine [Uhqiwo-Bihjucww-Szfw 50-325-40] 1 each PO Q6HR PRN 01/30/24 Calcitrol [Rocaltrol*] 0.25 mcg PO DAILY 01/30/24 Carvedilol [Coreg] 25 mg PO BID 01/30/24 Dapsone [Dapsone*] 100 mg PO DAILY 01/30/24 Hydralazine HCl 100 mg PO Q8HR 01/30/24 Lisinopril [Zestril] 20 mg PO DAILY 01/30/24 Metoprolol Succinate [Toprol Xl] 100 mg PO DAILY 01/30/24 Nifedipine [Procardia Xl] 60 mg PO BID 01/30/24 Ondansetron [Zofran (Odt)*] 4 mg PO Q12H PRN 01/30/24 Terazosin HCl 2 mg PO BID 01/30/24 Sacubitril/Valsartan [Entresto 49 mg-51 mg Tablet] 1 tab PO DAILY 02/27/24 Apixaban [Eliquis] 2.5 mg PO BID #60 tablet 02/28/24 - Past Medical/Surgical History Diabetic: No -: HTN -: ESRD (Dr. Wills/ [facility]) -: Seizures (as a child) -: Brain tumor -: Asthma -: Csection x2 -: Brain Sx -: Kidney Transplant Nephrectomy/transplant was removed recently Psychosocial/ Personal History: Lives at home - Family History Mother History Unknown: Yes - Social History Smoking Status: Never smoker Alcohol use: No CD- Drugs: No Caffeine use: No Review of Systems Cardiovascular: Chest Pain Physical Examination - Physical Exam General: Alert, In no apparent distress, Oriented x3 HEENT: Atraumatic, Normocephalic, PERRLA Neck: Supple, 2+ carotid pulse no bruit, JVD not distended Respiratory: Clear to auscultation bilaterally, Normal air movement Cardiovascular: Normal pulses, Regular rate/rhythm, Normal S1 S2, Edema (2+ BLE ) Capillary refill: <2 Seconds Gastrointestinal: Normal bowel sounds, Soft and benign, Non-distended Musculoskeletal: Other (2+ BLE edema) Integumentary: No rashes Neurological: Normal speech, Normal tone - Studies Laboratory Data (last 24 hrs) 03/05/24 03/05/24 13:16 13:16 WBC 4.90 Hgb 9.1 L Hct 28.4 L Plt Count 172 Sodium 135 L Potassium 4.7 BUN 29 H Creatinine 6.83 H Glucose 98 Magnesium 2.1 Total Bilirubin 0.7 AST 18 ALT 20 Alkaline Phosphatase 66 Assessment and Plan - Plan Assessment and PLan Hypertensive emergency Chest pain -CT dissection reports Unchanged short-segment dissection flap at the infrarenal abdominal aorta. No aneurysm is identified. Similar findings regarded anasarca with body wall edema, mild ascites, and small pleural effusions. Pulmonary edema is also present, otherwise no acute findings in the chest. No thoracic aortic dissection, thoracic aortic aneurysm, or pulmonary embolus. -Admit to ICU on Cardene gtt -Serial Troponin pending -Gentle decrease in blood pressure CKD/ESRD on dialysis TTS Anasarca Fluid volume overload 2+ peripheral Edema BLE Right kidney transplant/nephrectomy d/t rejection Chronic right flank pain -BUN/creatinine 29/6.83, GFR 8, [id number] -Continue home medicaitons -Dr. Velazco [facility] reports attending dialysis and compliant with medications -Lasix daily -Monitor I and O -pain control Right upper extremity DVT (POA) -continue eliquis -02/28/24 Right upper extremity venous ultrasound reports " Acute thrombus right cephalic and right basilic veins" CHF Mild mitral regurgitation Mild tricuspil regurgitation Mild pulmonary HTN -ECHO 02/26/24 -Continue home medications Anemia of chronic disease -H/H 9.1/28.4 -continue to monitor History of Seizures as a child History of Brain tumor s/p surgery History of Asthma -continue home medications -follow up outpatient -supportive care DVT ppx Eliquis Full code LOS 2 days Discharge Plan: Home Plan to discharge in: 48 Hours - Advance Directives Does patient have a Living Will: No Does patient have a Durable POA for Healthcare: No
[2024-03-05] MEDS ORDERED: HYDROCODONE/APAP 7.5/325 MG TAB PO PRN (16:39)
[2024-03-05 17:09] VITALS: BMI 28.3
[2024-03-05] MEDS: FUROSEMIDE 40 MG/4 ML VIAL IV ONE (17:35)
[2024-03-05] MEDS: MORPHINE 2 MG/ML SYR IV PRN (19:15)
[2024-03-05] MEDS ORDERED: NA CHLORIDE 0.9% 1,000 ML IV PRN (19:32)
[2024-03-05] MEDS ORDERED: MANNITOL 25% 12.5 GM/50 ML VIAL IV PRN (19:32)
[2024-03-05] MEDS ORDERED: EPOETIN ALFA 10,000 UNIT/ML VIAL IV SCH (19:45)
[2024-03-05] MEDS ORDERED: ALBUMIN HUMAN 25% 50 ML IV SCH (20:00)
[2024-03-05] MEDS ORDERED: TERAZOSIN HCL 1 MG CAP PO SCH (21:00)
[2024-03-05] MEDS: NIFEDIPINE XL 90 MG TABLET PO SCH (21:06)
[2024-03-05] MEDS: LOSARTAN POTASSIUM 50 MG TABLET PO SCH (21:06)
[2024-03-05] MEDS: Nicardipine/NS 25 MG/250 ML KIT IV SCH (21:06)
[2024-03-05] MEDS: APIXABAN 2.5 MG TABLET PO SCH (21:07)
[2024-03-05] MEDS: SACUBITRIL/VALSARTAN 49/51 MG TAB PO SCH (21:07)
[2024-03-05] MEDS: DOXAZOSIN 2 MG TAB PO SCH (21:07)
[2024-03-05] MEDS: atenoloL 50 MG TAB PO SCH (21:07)
[2024-03-05] MEDS: BUMETANIDE 1 MG TABLET PO SCH (21:20)
[2024-03-05] MEDS: DIPHENHYDRAMINE 50 MG/ML VIAL IV ONE (21:43)
[2024-03-06] MEDS: DIPHENHYDRAMINE 50 MG/ML VIAL IV ONE ×2 (01:36→07:53)
[2024-03-06] MEDS: hydrOXYzine HCL 25 MG TAB PO ONE (01:55)
[2024-03-06 04:02] VITALS: O2SAT 94
[2024-03-06] MEDS ORDERED: hydrOXYzine HCL 25 MG TAB PO PRN (07:29)
[2024-03-06] MEDS: CALCITROL 0.25 MCG CAP PO SCH ×2 (07:54→08:58)
[2024-03-06 07:55] LABS: Absolute Basophils 0.1 K/uL (0-0.5); Absolute Eosinophils 0.4 K/uL (0-0.5); Absolute Lymphocytes (CBC) 0.5 K/uL (0.7-4.9); Absolute Monocytes 0.6 K/uL (0.1-1.3); Absolute Neutrophil 3.1 K/uL (1.8-8.0); Basophils % 1.4 % (0-1.3); Eosinophils % 8.5 % (0-4.4); Hematocrit 27.8 % (36.0-45.0); MCHC 32.5 g/dL (32.0-36.0); MCV 89.2 fL (80-100); MPV 8.5 fL (7.6-11.3); Neutrophils % 67.1 % (41.7-73.7); Nucleated Red Blood Cells % 0.2 % (0-0); Platelets 171 thou/uL (152-406); RBC Red Blood Cell Count 3.11 M/uL (3.86-4.86); Red Cell Distribution Width 18.3 % (12.1-15.2)
--- NOTE | 2024-03-06 08:08 | P.CNS ---
Date of Consult: 03/06/24 Reason for Consult: ESRD Requesting Physician: simone delarosa Chief Complaint: HTN emergency History of Present Illness: Shaun Lopez is a 33 year old female with Pmhx of ESRD, HTN causing CKD (TTS dialysis), migraines, brain tumor removed, right kidney transplant/nephrectomy d/t rejection, who presents to the ED with chief complaint of chest pain. She called the dialysis nurse and was told to come to the ED. she was recently disc harged from ICU after recovering from HTN emergency. She reports restarting her current medications and checking her blood pressure daily. She reports remaining compliant with medication management and dialysis appointments. She has a complicated history of hypertension which started five years ago when she gave to her son. This hypertension has caused kidney failure resulting with a right kidney transplant then nephrectomy secondary to rejection. She is currently on the kidney transplant list in [place]. Upon arrival to the ED, BP 217/136 and she was started on a cardene gtt. Initial vitals BP 217 / 136; Pulse 89; Resp 14; Temp 98.7(TE); Pulse Ox 100% on R/A; Laboratory evaluation BUN/creatinine 29/6.83, GFR 8, BNP 144,081, sodium 135, H&H 9.1/28.4, troponin 31.9 CTA dissection reports Unchanged short-segment dissection flap at the infrarenal abdominal aorta. No aneurysm is identified. Similar findings regarded anasarca with body wall edema, mild ascites, and small pleural effusions. Pulmonary edema is also present, otherwise no acute findings in the chest. No thoracic aortic dissection, thoracic aortic aneurysm, or pulmonary embolus. Allergies sulfamethoxazole [From Bactrim] Allergy (Verified 10/27/23 00:24) Itching/Hives/Rash trimethoprim [From Bactrim] Allergy (Verified 10/27/23 00:24) Itching/Hives/Rash Home medications list reviewed: Yes Home Medications: Furosemide [Lasix*] 40 mg PO DAILYPRN PRN 10/24/23 Clonidine Patch [Catapres-Tts 3*] 0.3 mg TD EVERY 7TH DAY 30 Days #1 box 01/23/24 Bumetanide 3 mg PO BID 01/30/24 Butalb/Acetaminophen/Caffeine [Coiewv-Gvunsnsw-Przr 50-325-40] 1 each PO Q6HR PRN 01/30/24 Calcitrol [Rocaltrol*] 0.25 mcg PO DAILY 01/30/24 Carvedilol [Coreg] 25 mg PO BID 01/30/24 Dapsone [Dapsone*] 100 mg PO DAILY 01/30/24 Hydralazine HCl 100 mg PO Q8HR 01/30/24 Lisinopril [Zestril] 20 mg PO DAILY 01/30/24 Metoprolol Succinate [Toprol Xl] 100 mg PO DAILY 01/30/24 Nifedipine [Procardia Xl] 60 mg PO BID 01/30/24 Ondansetron [Zofran (Odt)*] 4 mg PO Q12H PRN 01/30/24 Terazosin HCl 2 mg PO BID 01/30/24 Sacubitril/Valsartan [Entresto 49 mg-51 mg Tablet] 1 tab PO DAILY 02/27/24 Apixaban [Eliquis] 2.5 mg PO BID #60 tablet 02/28/24 - Past Medical/Surgical History Diabetic: No -: HTN -: ESRD (Dr. Wills/ [facility] A) -: Seizures (as a child) -: Brain tumor -: Asthma -: Csection x2 -: Brain Sx -: Kidney Transplant Nephrectomy/transplant was removed recently Psychosocial/ Personal History: Lives at home - Family History Mother History Unknown: Yes - Social History Smoking Status: Unknown if ever smoked Alcohol use: No CD- Drugs: No Caffeine use: No Place of Residence: Home Review of Systems 10-point ROS is otherwise unremarkable General: Malaise Physical Examination Temp Pulse Resp BP Pulse Ox 97.3 F 74 20 101/72 97 03/06/24 07:00 03/06/24 07:00 03/06/24 07:00 03/06/24 07:00 03/06/24 07:00 General: In no apparent distress, Oriented x3, Cooperative HEENT: Atraumatic Neck: Supple Respiratory: Normal air movement Cardiovascular: No edema Gastrointestinal: Soft and benign, Non-distended Musculoskeletal: No clubbing, No contractures Integumentary: No rashes, No cyanosis Neurological: Normal speech Laboratory Data (last 24 hrs) 03/05/24 03/05/24 13:16 13:16 WBC 4.90 Hgb 9.1 L Hct 28.4 L Plt Count 172 Sodium 135 L Potassium 4.7 BUN 29 H Creatinine 6.83 H Glucose 98 Magnesium 2.1 Total Bilirubin 0.7 AST 18 ALT 20 Alkaline Phosphatase 66 Imagings Data: EXAM DESCRIPTION: CTAngio Aorta For Dissection - 03/05/2024 1:23 pm CLINICAL HISTORY: chest pain COMPARISON: Angio Aorta For Dissection dated 02/26/2024 TECHNIQUE: CTA of the chest, abdomen, and pelvis was performed with IV contrast. All CT scans are performed using dose optimization technique as appropriate and may include automated exposure control or mA/KV adjustment according to patient size. FINDINGS: Thorax: Chest Wall: No abnormal mass Lungs: Mild interlobular septal thickening. Mild bronchial wall thickening . Pleura: Small bilateral pleural effusion . Sandra/Mediastinum: No lymphadenopathy. Aorta/Pulmonary Arteries: Unremarkable Heart: Mild cardiomegaly. Abdomen/Pelvis: Liver: Hepatomegaly. No focal masses . Biliary: No biliary ductal dilatation. Stomach: No significant focal abnormality. Duodenum: No significant focal abnormality. Pancreas: No significant abnormality. Spleen: No significant abnormality. Adrenal: No suspicious lesions. Kidney/ureter: No hydronephrosis. No renal calculi. Atrophic kidneys. Retroperitoneum: No retroperitoneal adenopathy. Vascular: Unchanged short-segment dissection in the infrarenal abdominal aorta, also seen on the CT from 02/26/2024. Bowel: No significant focal abnormality. Peritoneum: Mild ascites. Body wall edema. Bladder: Grossly unremarkable. Reproductive: No adnexal masses. Bones: No acute fracture. Other: n/a IMPRESSION: Unchanged short-segment dissection flap at the infrarenal abdominal aorta. No aneurysm is identified. Similar findings regarded anasarca with body wall edema, mild ascites, and small pleural effusions. Pulmonary edema is also present, otherwise no acute findings in the chest. No thoracic aortic dissection, thoracic aortic aneurysm, or pulmonary embolus. Conclusions/Impression: ESRD on HD TTS -Acute HD ordered Hypertensive Emergency HTN with CKD -Cardene gtt initiated on admission -Home medications restarted -DC Doxazosin due to hypotension -Holding parameter for Losartan Anasarca -HD with UF as tolerated Anemia in CKD -Retacrit prn CKD MBD -Start Calcitriol -Start [facility] Hospitalist and ER notes reviewed Thank you kindly for the consultation
[2024-03-06 08:12] LABS: Anion Gap 12.9 mEq/L (5.0-15.0); Magnesium 2.2 mg/dL (1.6-2.4); Phosphorus 5.9 mg/dL (2.5-4.9); Potassium 4.9 mEq/L (3.5-5.1); Thyroid Stimulating Hormone 3.27 uIU/mL (0.358-3.740)
[2024-03-06 08:23] VITALS: TEMP 97.7
[2024-03-06] MEDS: LOSARTAN POTASSIUM 50 MG TABLET PO SCH (08:30)
[2024-03-06] MEDS: SEVELAMER CARBONATE 800 MG TABLET PO SCH (08:30)
[2024-03-06] MEDS: DOCUSATE NA 100 MG CAP PO SCH (09:00)
[2024-03-06] MEDS ORDERED: SACUBITRIL/VALSARTAN 49/51 MG TAB PO SCH (09:00)
[2024-03-06] MEDS: DAPSONE 100 MG TAB PO SCH (09:18)
[2024-03-06] MEDS: MULTIVITAMINS,THERAPEUT 1 TAB PO SCH (09:18)
[2024-03-06] MEDS: DRISDOL (VITAMIN D=ERGOCALCIFEROL) 50000 UNIT CAP PO SCH (09:18)
--- NOTE | 2024-03-06 12:37 | EKG ---
Test Date: 2024-03-05 Test Time: 17:49:27 Electronic Development Technician: ALISSA MEASUREMENT RESULTS: Intervals: Rate: 87 [place]: 172 QRSD: 96 QT: 392 QTc: 471 [place]: P: 45 NC: 172 QRS: -59 T: 23 INTERPRETIVE STATEMENTS: Normal sinus rhythm Possible Left atrial enlargement Pulmonary disease pattern Incomplete right bundle branch block Left anterior fascicular block Septal infarct, age undetermined Abnormal ECG Compared to ECG 02/26/2024 21:55:31 Incomplete right bundle-branch block now present Myocardial infarct finding now present Sinus tachycardia no longer present Electronically Signed On 03-06-24 12:36:09 CDT by Alirio Dickerson
--- NOTE | 2024-03-06 12:38 | EKG ---
Test Date: 2024-03-05 Test Time: 13:00:56 License Clerk: ANGELIQUE MEASUREMENT RESULTS: Intervals: Rate: 85 [place]: 144 QRSD: 92 QT: 380 QTc: 452 [place]: P: 62 [place]: 144 QRS: -50 T: 107 INTERPRETIVE STATEMENTS: Normal sinus rhythm Left anterior fascicular block Septal infarct, age undetermined T wave abnormality, consider lateral ischemia Abnormal ECG Compared to ECG 02/26/2024 21:55:31 Myocardial infarct finding now present T-wave abnormality now present Possible ischemia now present Sinus tachycardia no longer present Electronically Signed On 03-06-24 12:37:00 CDT by Alirio Dickersno
[2024-03-06 15:40] LABS: Hepatitis B surface AG Interp. Nonreactive (Nonreactive)
[2024-03-06 15:41] LABS: HBsAG Nonreactive Report Report
[2024-03-06 18:13] VITALS: BP 172/97
--- NOTE | 2024-03-06 18:53 | P.DS ---
Admission Date: 03/05/24 Discharge Date: 03/06/24 Disposition: ROUTINE DISCHARGE Discharge Condition: FAIR Reason for Admission: HTN emergency - Problems (1) Hypertensive emergency Status: Acute (2) Aortic dissection, abdominal Status: Acute (3) ESRD (end stage renal disease) Status: Acute Brief History of Present Illness: 33 year old woman with a past medical history of ESRD, HTN, migraines, s/p right kidney transplant/nephrectomy d/t rejection, presented to the ED with chief complaint of chest pain. She called the dialysis nurse and was told to come to the ED. she was recently discharged from ICU after recovering from HTN emergency. She reported restarting her current medications and checking her blood pressure daily. She reports remaining compliant with medication management and dialysis appointments. She is currently on the kidney transplant list in [place]. Upon arrival to the ED, BP 217/136 and she was started on a cardene gtt. Laboratory evaluation in the ED: BUN/creatinine 29/6.83, GFR 8, BNP 144,081, sodium 135, H&H 9.1/28.4, troponin 31.9 CTA dissection reports Unchanged short-segment dissection flap at the infrarenal abdominal aorta. No aneurysm is identified. Similar findings regarded anasarca with body wall edema, mild ascites, small pleural effusions and pul monary edema. No thoracic aortic dissection, thoracic aortic aneurysm, or pulmonary embolus. Patient was admitted to the ICU for further management. Hospital Course: Patient was admitted to the ICU and treated with nicardipine drip for hypertensive emergency. Her cocktail of home antihypertensives were also resumed during her hospital stay. Patient's blood pressure improved rapidly, quicker than expected. She was seen and evaluated by nephrology and patient underwent hemodialysis. Patient continues have resolved. Overall her clinical condition has improved better than expected. Patient deemed stable for discharge. She reports that her multiple antihypertensives were reevaluated all medications that she is not supposed to take were removed from her medication list. 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 Of note patient CT dissection reported a small segment dissection in the infrarenal abdominal aorta that need to be followed. Vital Signs/Physical Exam: Temp Pulse Resp BP Pulse Ox 97.7 F 78 24 H 172/97 H 93 03/06/24 11:00 03/06/24 18:00 03/06/24 13:00 03/06/24 18:00 03/06/24 13:00 General: Alert, In no apparent distress, Oriented x3 HEENT: Mucous membr. moist/pink Neck: Supple, JVD not distended Respiratory: Clear to auscultation bilaterally, Normal air movement Cardiovascular: No edema, No murmurs Gastrointestinal: Normal bowel sounds, Soft and benign, Non-distended, No tenderness Musculoskeletal: No swelling Integumentary: No rashes, No cyanosis Neurological: Normal speech, Normal strength at 5/5 x4 extr, Cranial nerves 3-12 intact Laboratory Data at Discharge: WBC 4.70 thou/uL (4.3-10.9) 03/06/24 07:23 Hgb 9.0 g/dL (12.0-15.0) L 03/06/24 07:23 Hct 27.8 % (36.0-45.0) L 03/06/24 07:23 Plt Count 171 thou/uL (152-406) 03/06/24 07:23 Sodium 135 mEq/L (136-145) L 03/06/24 07:23 Potassium 4.9 mEq/L (3.5-5.1) 03/06/24 07:23 BUN 35 mg/dL (7-18) H 03/06/24 07:23 Creatinine 7.59 mg/dL (0.55-1.02) H 03/06/24 07:23 Glucose 93 mg/dL (74-106) 03/06/24 07:23 Phosphorus 5.9 mg/dL (2.5-4.9) H 03/06/24 07:23 Magnesium 2.2 mg/dL (1.6-2.4) 03/06/24 07:23 Total Bilirubin 0.7 mg/dL (0.2-1.0) 03/05/24 13:16 AST 18 U/L (15-37) 03/05/24 13:16 ALT 20 U/L (13-56) 03/05/24 13:16 Alkaline Phosphatase 66 U/L (45-117) 03/05/24 13:16 Triglycerides 117 mg/dL (<150) 03/06/24 07:23 Cholesterol 98 mg/dL (<200) 03/06/24 07:23 HDL Cholesterol 26 mg/dL (40-60) L 03/06/24 07:23 Cholesterol/HDL Ratio 3.77 03/06/24 07:23 Home Medications: Clonidine Patch [Catapres-Tts 3*] 0.3 mg TD EVERY 7TH DAY 30 Days #1 box 01/23/24 Bumetanide 3 mg PO BID 01/30/24 Butalb/Acetaminophen/Caffeine [Osihre-Somtdthc-Gpbr 50-325-40] 1 each PO Q6HR PRN 01/30/24 Dapsone [Dapsone*] 100 mg PO DAILY 01/30/24 Sacubitril/Valsartan [Entresto 49 mg-51 mg Tablet] 1 tab PO DAILY 02/27/24 Apixaban [Eliquis *] 2.5 mg PO BID #60 tablet 02/28/24 Calcitrol [Rocaltrol*] 0.5 mcg PO DAILY #60 cap 03/06/24 Divalproex Sodium [Divalproex Sodium ER] 500 mg PO BEDTIME #30 tab.sr.24h 03/06/24 Doxazosin [Cardura*] 4 mg PO BID #60 tab 03/06/24 Epoetin [Procrit*] 10,000 unit IV EVERY HD vial 03/06/24 Heparin [Heparin 1,000 units/mL *] 6,000 unit IV EVERY HD PRN vial 03/06/24 Hydralazine HCl 100 mg PO DAILY PRN #30 tab 03/06/24 Nifedipine [Procardia Xl] 90 mg PO BID #60 tab 03/06/24 Olmesartan Medoxomil 40 mg PO DAILY #30 tab 03/06/24 Pregabalin [Lyrica] 50 mg PO BEDTIME #30 cap 03/06/24 Sevelamer Carbonate [Renvela*] 800 mg PO TIDWM #0 03/06/24 Vitamin D [Drisdol*] 50,000 unit PO Q7D@0900 #4 cap 03/06/24 atenoloL [Tenormin*] 50 mg PO BEDTIME tab 03/06/24 hydrOXYzine HCL [Atarax*] 25 mg PO Q6HP PRN #30 tab 03/06/24 New Medications: hydrOXYzine HCL [Atarax*] 25 mg PO Q6HP PRN #30 tab PRN Reason: Itching Doxazosin [Cardura*] 4 mg PO BID #60 tab Divalproex Sodium [Divalproex Sodium ER] 500 mg PO BEDTIME #30 tab.sr.24h Vitamin D [Drisdol*] 50,000 unit PO Q7D@0900 #4 cap Hydralazine HCl 100 mg PO DAILY PRN #30 tab PRN Reason: SBP > 160 Pregabalin [Lyrica] 50 mg PO BEDTIME #30 cap Olmesartan Medoxomil 40 mg PO DAILY #30 tab Nifedipine [Procardia Xl] 90 mg PO BID #60 tab Calcitrol [Rocaltrol*] 0.5 mcg PO DAILY #60 cap Physician Discharge Instructions: PROBLEM: Hypertension GOAL: Lower BP INSTRUCTIONS: Take BP medications as prescribed. Monitor BP. Continue Dialysis Diet: Renal Activity: tolerated DME DME: Date Ordered: Name of Company: [employer] Services Needed: Name of Company: Date or Referral: IMMUNIZATION Influenza Vaccine Indicated: Influenza Vaccine Given: Date Given: Pneumonia Vaccine Indicated: No Pneumonia Vaccine Given: Date Given: Diet: Renal Activity: Ad jose luis Followup: NONE,NONE [Primary Care Provider] - Spencer Velazco DO [ACTIVE - CAN ADMIT] - 1 Week Time spent managing pt's care (in minutes): 33
[2024-03-10] MEDS ORDERED: CLONIDINE 0.3 MG/PATCH TD SCH (09:00)
== END 2024-03-06 19:00 | disposition home or self-care (01) | DRG 304 ==
LOC: ER 12:47 → ERHOLD 15:27 → 3RD-ICU 16:14
PROVIDERS: ADMIT Hospitalist; ATTEND Internal Medicine
PROC: 5A1D70Z Performance of Urinary Filtration, Intermittent, Less than 6 Hours Per Day (ICD-10-PCS; principal; 2024-03-06)
DX: I16.1 Hypertensive emergency (principal); I71.02 Dissection of abdominal aorta; N18.6 End stage renal disease; Z94.0 Kidney transplant status; I13.2 Hypertensive heart and chronic kidney disease with heart failure and with stage 5 chronic kidney disease, or end stage renal disease; I50.9 Heart failure, unspecified; E11.22 Type 2 diabetes mellitus with diabetic chronic kidney disease; D63.1 Anemia in chronic kidney disease; I08.1 Rheumatic disorders of both mitral and tricuspid valves; I27.20 Pulmonary hypertension, unspecified; Z90.5 Acquired absence of kidney; Z99.2 Dependence on renal dialysis; Z88.1 Allergy status to other antibiotic agents; Z11.52 Encounter for screening for COVID-19; Z79.01 Long term (current) use of anticoagulants; Z79.02 Long term (current) use of antithrombotics/antiplatelets; Z91.040 Latex allergy status; Z91.018 Allergy to other foods; Z79.899 Other long term (current) drug therapy; Z91.048 Other nonmedicinal substance allergy status; Z86.718 Personal history of other venous thrombosis and embolism
CPT/HCPCS: 80048; 80061; 83735; 84100; 84439; 84443; 84484; 85025; 87340; 90935; 93005; 99285; J1200

== ENCOUNTER 2024-03-12 10:17 | Inpatient (IN) | payer OTHER ==
--- NOTE | 2024-03-12 11:24 | RAD REPORT ---
EXAM DESCRIPTION: US - Extremity Venous Uni Ltd - 03/12/2024 11:14 am CLINICAL HISTORY: Pain;Swelling Leg swelling and edema. COMPARISON: UPPER EXTREMITY VENOUS UNILATE dated 02/28/2024 FINDINGS: Right lower extremity venous system was interrogated with Doppler technique. Normal flow, compressibility and augmentation was noted. There is no DVT present. IMPRESSION: No evidence of right lower extremity deep venous thrombosis.
[2024-03-12] MEDS ORDERED: ONDANSETRON 4 MG/2 ML VIAL ONE (12:00)
[2024-03-12] MEDS ORDERED: MORPHINE 4 MG/ML SYR ONE ×2 (12:01→16:16)
[2024-03-12 12:15] LABS: Absolute Basophils 0.1 K/uL (0-0.5); Absolute Eosinophils 0.1 K/uL (0-0.5); Absolute Lymphocytes (CBC) 1.1 K/uL (0.7-4.9); Absolute Monocytes 0.8 K/uL (0.1-1.3); Absolute Neutrophil 4.1 K/uL (1.8-8.0); Eosinophils % 1.8 % (0-4.4); Hematocrit 29.9 % (36.0-45.0); Hemoglobin 9.5 g/dL (12.0-15.0); Lymphocytes % 17.2 % (15.3-44.8); MCH 28.2 pg (27.0-35.0); MCHC 31.8 g/dL (32.0-36.0); MCV 88.6 fL (80-100); Nucleated Red Blood Cells % 0.1 % (0-0); Platelets 134 thou/uL (152-406); RBC Red Blood Cell Count 3.38 M/uL (3.86-4.86); Red Cell Distribution Width 17.5 % (12.1-15.2)
[2024-03-12 12:29] LABS: Magnesium 1.9 mg/dL (1.6-2.4)
[2024-03-12] MEDS ORDERED: HYDRALAZINE HCL 20 MG/ML VIAL ONE ×2 (12:31→16:15)
[2024-03-12] MEDS ORDERED: LABETALOL HCL 100 MG/20 ML ONE (13:45)
[2024-03-12] MEDS ORDERED: CLINDAMYCIN 600MG/D5W 50 ML IV ONE (13:53)
--- NOTE | 2024-03-12 15:26 | ER ---
Nurse's Notes [facility] Name: Shaun Lopez Age: 33 yrs Sex: Female : 1990 Arrival Date: 03/12/2024 Time: 10:17 Bed IW10 Private MD: Diagnosis: Hypertensive heart and chronic kidney disease with heart failure and with stage 5 chronic kidney disease, or end stage renal disease Presentation: 03/12 10:33 Chief complaint: Patient states: Wound to left knee onset Tuesday. Pt has noted wound to cm10 right knee with redness. Pt reports having fevers at home. TMAX 101f. Coronavirus screen: Client denies travel out of the [place] in the last 14 days. At this time, the client does not indicate any symptoms associated with coronavirus-19. Ebola Screen: Patient denies travel to an Ebola-affected area in the 21 days before illness onset. No symptoms or risks identified at this time. Initial Sepsis Screen: Does the patient meet any 2 criteria? HR > 90 bpm. Does the patient have a suspected source of infection? No. Patient's initial sepsis screen is negative. Risk Assessment: Do you want to hurt yourself or someone else? Patient reports no desire to harm self or others. Onset of symptoms was March 12, 2024. 10:33 Method Of Arrival: Ambulatory cm10 10:33 Acuity: VERNA 3 cm10 Triage Assessment: 10:35 General: Appears in no apparent distress. uncomfortable, Behavior is calm, cooperative. cm10 Neuro: No deficits noted. Level of Consciousness is awake, alert, obeys commands, Oriented to person, place, time, situation, Appropriate for age. Historical: - Allergies: 10:34 Adhesives; cm10 10:34 AVOCADO (LAURUS PERSEA); cm10 10:34 Bactrim; cm10 10:34 Latex; cm10 - PMHx: 10:34 brain tumor-removed; Hypertension; End stage renal disease; Dialysis; Migraines; cm10 Seizures; - PSHx: 10:34 brain SX x 2; section; donor kidney removed; Fistula- L arm; kidney biopsy; cm10 kidney transplant; - Immunization history:: Adult Immunizations up to date. - Infectious Disease History:: Denies. - Social history:: Smoking status: Patient denies any tobacco usage or history of. Screenin:07 [facility] ED Fall Risk Assessment (Adult) History of falling in the last 3 months, ar6 including since admission No falls in past 3 months (0 pts) Confusion or Disorientation No (0 pts) Intoxicated or Sedated No (0 pts) Impaired Gait No (0 pts) Mobility Assist Device Used No (0 pt) Altered Elimination No (0 pt) Score/Fall Risk Level 0 - 2 = Low Risk Oriented to surroundings, Maintained a safe environment, Educated pt \T\ family on fall prevention, incl call for assistance when getting out of bed, Hourly rounding (assess needs \T\ fall precautionary measures) done. Abuse screen: Denies threats or abuse. Denies injuries from another. Nutritional screening: No deficits noted. Tuberculosis screening: No symptoms or risk factors identified. Assessment: 11:30 General: Appears in no apparent distress. uncomfortable, Behavior is calm, cooperative, ar6 appropriate for age. Pain: Complains of pain in right leg Pain does not radiate. Pain currently is 7 out of 10 on a pain scale. Quality of pain is described as dull, Pain began 2-3 days ago. Is continuous. Neuro: Level of Consciousness is awake, alert, obeys commands, Oriented to person, place, time, situation. Cardiovascular: Capillary refill < 3 seconds. Respiratory: Airway is patent. GI: Abdomen is round non-distended. : No signs and/or symptoms were reported regarding the genitourinary system. EENT: Oral mucosa is moist. Derm: Skin is intact, right knee wound Skin is dry, Skin is pink, warm \T\ dry. right knee wound with redness. Derm: Skin Skin is. 12:30 Reassessment: BP reported to CHITRA Giles; see emar for new orders. ar6 17:11 Reassessment: Patient and/or family updated on plan of care and expected duration. Pain tl4 level reassessed. Patient is alert, oriented x 3, equal unlabored respirations, skin warm/dry/pink. Pt denies any needs at this time. Call ch at bedside. Will continue to monitor. Vital Signs: 10:33 BP 216 / 146; Pulse 99; Resp 16; Temp 99.5; Pulse Ox 99% on R/A; Weight 61.23 kg; cm10 Height 5 ft. 1 in. ; Pain 7/10; 11:48 BP 210 / 105; Pulse 89; Resp 20; Temp 99(TE); Pulse Ox 99% ; Weight 61.23 kg; Height 5 ar6 ft. 1 in. ; Pain 7/10; 12:46 BP 206 / 128; Pulse 97; Resp 20; Pulse Ox 99% on R/A; ar6 13:37 BP 197 / 126; Pulse 92; Resp 24; Pulse Ox 98% on R/A; ar6 14:00 BP 199 / 136; Pulse 93; Resp 19; Pulse Ox 98% on R/A; tl4 14:30 BP 203 / 135; Pulse 94; Resp 19; Pulse Ox 98% on R/A; tl4 15:08 BP 203 / 138; Pulse 89; Resp 23; Pulse Ox 99% on R/A; tl4 15:30 BP 215 / 132; Pulse 90; Resp 19; Pulse Ox 96% on R/A; tl4 16:00 BP 211 / 147; Pulse 90; Resp 15; Pulse Ox 97% on R/A; tl4 16:30 BP 220 / 147; Pulse 85; Resp 14; Pulse Ox 100% ; tl4 17:09 BP 204 / 134; Pulse 86; Resp 21; Pulse Ox 99% on R/A; tl4 17:37 BP 200 / 140; Pulse 92; Resp 24; Temp 97.9(O); Pulse Ox 98% on R/A; tl4 11:48 Body Mass Index 25.51 (61.23 kg, 154.94 cm) ar6 10:33 Pain Scale: Adult cm10 11:48 Pain Scale: Adult ar6 12:46 CHITRA Giles notified; no new orders at this time; plan of care ongoing ar6 13:37 CHITRA Giles notified of BP; no orders at this time ar6 ED Course: 10:20 Patient arrived in ED. jj6 10:20 Javon Roy PA is PHCP. cp 10:20 Abdoul Burris MD is Attending Physician. cp 10:34 Triage completed. cm10 10:35 Arm band placed on Patient placed in an exam room, on a stretcher. cm10 10:51 Lynette Hong, JERALD is Primary Nurse. ar6 11:07 US Extremity Venous Unilateral Ltd In Process Unspecified. EDMS 11:45 Wound Culture Sent. ar6 11:59 Wound Culture Sent. ar6 11:59 Basic Metabolic Panel Sent. ar6 11:59 CBC with Diff Sent. ar6 11:59 Magnesium Sent. ar6 12:07 No apparent distress. ar6 12:07 Patient has correct armband on for positive identification. Placed in gown. Bed in low ar6 position. Call light in reach. Side rails up X 1. Provided Education on: plan of care. Client placed on continuous cardiac and pulse oximetry monitoring. NIBP monitoring applied. Door closed. Noise minimized. Lights dimmed. Warm blanket given. Head of bed lowered. 12:07 Assisted provider with: wound culture. Inserted saline lock: 22 gauge in right wrist, ar6 using aseptic technique. Blood collected. Flushed with 10 mL NS. 12:32 Test, Serum Sent. ar6 15:25 Jw Mims is Hospitalizing Provider. cp 16:26 1626 CM met with patient at bedside in ED exam room. Patient identified by name and ane . Demographic sheet confirmed. Patient states there have not been any changes since her last visit on 03/05/2024. She states she still reports to dialysis Tuesdays, and Saturdays through [facility]. She still lives in a 2 story home with her children. No HH, home oxygen, no DME and no other medical services at this time. MPOA remains in place. Patient prefers to discharge home and states she will transport herself home. CM team will continue to follow and coordinate care. Administered Medications: 12:07 Drug: morphine IVP or IV 4 mg IVP once over 4 mins Route: IVP; Infused Over: 4 mins; ar6 Site: right hand; 13:36 Follow up: Response: No adverse reaction ar6 12:07 Drug: Ondansetron IVP 4 mg IVP once; over 2 minutes Route: IVP; Site: right hand; ar6 13:36 Follow up: Response: No adverse reaction ar6 12:32 Drug: hydrALAZINE IVP 20 mg IVP once Route: IVP; Site: right hand; ar6 13:36 Follow up: Response: No adverse reaction ar6 13:50 Drug: Labetalol IV 20 mg IV at calculated rate once over 2 mins Route: IV; Rate: ar6 calculated rate; Infused Over: 2 mins; Site: right wrist; 13:54 Drug: Clindamycin IVPB 600 mg IVPB once over 30 mins; (mix in 50 mL) Route: IVPB; ar6 Infused Over: 30 mins; Site: right wrist; 14:29 Follow up: IV Status: Completed infusion; IV Intake: 50ml tl4 14:29 Follow up: Response: No adverse reaction tl4 17:08 Drug: morphine IVP or IV 4 mg IVP once over 4 mins Route: IVP; Infused Over: 4 mins; tl4 Site: right wrist; 17:39 Follow up: Response: No adverse reaction; Pain is decreased tl4 17:09 Drug: hydrALAZINE IVP 20 mg IVP once; For SBP > 140 mmHg. Hold if less than 120 mmHg. tl4 Route: IVP; Site: right wrist; 17:39 Follow up: Response: No adverse reaction; Blood pressure is lowered tl4 Intake: 14:29 IV: 50ml; Total: 50ml. tl4 Outcome: 15:25 Decision to Hospitalize by Provider. cp 19:43 Patient left the ED. ss Signatures: Dispatcher [employer] EDVijaya Alves RN RN ss Javon Roy PA PA cp Angie Cortezj6 Berenice Watters RN RN cm10 Lakhwinder Roy RN RN tl4 Lynette Hong RN RN ar6 Samantha Hassan RN RN ane
--- NOTE | 2024-03-12 15:26 | EDPHYS ---
Physician Documentation [facility] Name: Shaun Lopez Age: 33 yrs Sex: Female : 1990 Arrival Date: 03/12/2024 Time: 10:17 Bed IW10 Private MD: ED Physician Abdoul Burris HPI: 03/12 10:50 This 33 yrs old Female presents to ER via Ambulatory with complaints of Wound Infection.cp 10:50 The patient presents with pain, that is acute, swelling, tenderness, erythema. The cp complaints affect the right gomez. 10:50 Context: resulted from an unknown cause. cp 10:50 Onset: The symptoms/episode began/occurred last week. cp Historical: - Allergies: 10:34 Adhesives; cm10 10:34 AVOCADO (LAURUS PERSEA); cm10 10:34 Bactrim; cm10 10:34 Latex; cm10 - PMHx: 10:34 brain tumor-removed; Hypertension; End stage renal disease; Dialysis; Migraines; cm10 Seizures; - PSHx: 10:34 brain SX x 2; section; donor kidney removed; Fistula- L arm; kidney biopsy; cm10 kidney transplant; - Immunization history:: Adult Immunizations up to date. - Infectious Disease History:: Denies. - Social history:: Smoking status: Patient denies any tobacco usage or history of. ROS: 11:00 Constitutional: Positive for fever, cp 11:00 Eyes: Negative for injury, pain, redness, and discharge, cp 11:00 Respiratory: Negative for cough, shortness of breath, wheezing, 11:00 Abdomen/GI: Negative for abdominal pain, vomiting, diarrhea, constipation, 11:00 Skin: Positive for erythema, swelling, pain, open wound right lower leg, 11:00 Neuro: Negative for altered mental status, dizziness, headache, syncope, weakness, 11:00 All other systems are negative, Exam: 11:05 Constitutional: The patient appears in no acute distress, alert, awake, cp non-diaphoretic, non-toxic, well developed, well nourished, 11:05 Head/Face: Normocephalic, atraumatic. cp 11:05 Eyes: Periorbital structures: appear normal, Conjunctiva: normal, no exudate, no injection, Sclera: no appreciated abnormality, Lids and lashes: appear normal, bilaterally, 11:05 ENT: External ear(s): are unremarkable, Nose: is normal, Mouth: Lips: moist, Oral mucosa: normal, Posterior pharynx: Airway: no evidence of obstruction, patent, 11:05 Chest/axilla: Inspection: normal, 11:05 Cardiovascular: Rate: normal, 11:05 Respiratory: the patient does not display signs of respiratory distress, Respirations: normal, no use of accessory muscles, no retractions, labored breathing, is not present, Breath sounds: are clear throughout, no decreased breath sounds, no stridor, no wheezing, 11:05 Abdomen/GI: Exam negative for discomfort, distension, guarding, Inspection: abdomen appears normal, 11:05 Back: pain, is absent, ROM is normal, 11:05 Musculoskeletal/extremity: Extremities: noted in the right gomez: superficial open wound with scant drainage, surrounding erythema, swelling and tenderness to palpation, 11:05 Neuro: Orientation: to person, place \T\ time. Mentation: is normal, 12:26 ECG was reviewed by the Attending Physician. cp Vital Signs: 10:33 BP 216 / 146; Pulse 99; Resp 16; Temp 99.5; Pulse Ox 99% on R/A; Weight 61.23 kg; cm10 Height 5 ft. 1 in. ; Pain 7/10; 11:48 BP 210 / 105; Pulse 89; Resp 20; Temp 99(TE); Pulse Ox 99% ; Weight 61.23 kg; Height 5 ar6 ft. 1 in. ; Pain 7/10; 12:46 BP 206 / 128; Pulse 97; Resp 20; Pulse Ox 99% on R/A; ar6 13:37 BP 197 / 126; Pulse 92; Resp 24; Pulse Ox 98% on R/A; ar6 14:00 BP 199 / 136; Pulse 93; Resp 19; Pulse Ox 98% on R/A; tl4 14:30 BP 203 / 135; Pulse 94; Resp 19; Pulse Ox 98% on R/A; tl4 15:08 BP 203 / 138; Pulse 89; Resp 23; Pulse Ox 99% on R/A; tl4 15:30 BP 215 / 132; Pulse 90; Resp 19; Pulse Ox 96% on R/A; tl4 16:00 BP 211 / 147; Pulse 90; Resp 15; Pulse Ox 97% on R/A; tl4 16:30 BP 220 / 147; Pulse 85; Resp 14; Pulse Ox 100% ; tl4 17:09 BP 204 / 134; Pulse 86; Resp 21; Pulse Ox 99% on R/A; tl4 17:37 BP 200 / 140; Pulse 92; Resp 24; Temp 97.9(O); Pulse Ox 98% on R/A; tl4 11:48 Body Mass Index 25.51 (61.23 kg, 154.94 cm) ar6 10:33 Pain Scale: Adult cm10 11:48 Pain Scale: Adult ar6 12:46 CHITRA Giles notified; no new orders at this time; plan of care ongoing ar6 13:37 CHITRA Giles notified of BP; no orders at this time ar6 MDM: 10:42 Patient medically screened. cp 15:30 Data reviewed: vital signs, nurses notes, lab test result(s), EKG, radiologic studies, cp and as a result, I will admit patient. 15:30 Differential diagnosis: sepsis, abscess, cellulitis, hypertensive emergency. Management cp of patient was discussed with the following: Hospitalist: DR Mims will admit after discussion. I considered the following discharge prescriptions or medication management in the emergency department Medications were administered in the Emergency Department. See MAR. Independent interpretation of the following test(s) in the Emergency Department EKG: See my EKG interpretation above. 03/12 10:47 Order name: Basic Metabolic Panel; Complete Time: 13:25 cp 03/12 13:25 Interpretation: Normal except: NA 135; ANION GAP 16.0; CRE 6.82; GFR 8. cp 03/12 10:47 Order name: CBC with Diff; Complete Time: 13:25 cp 03/12 13:44 Interpretation: Normal except: RBC 3.38; HGB 9.5; HCT 29.9; MCHC 31.8; PLT 134; RDW cp 17.5; MN% 13.0. 03/12 10:47 Order name: Magnesium; Complete Time: 13:25 cp 03/12 10:47 Order name: Wound Culture cp 03/12 11:37 Order name: Test, Serum; Complete Time: 15:11 cp 03/12 16:36 Order name: Urinalysis w/ reflexes EDMS 03/12 16:36 Order name: Basic Metabolic Panel EDMS 03/12 16:36 Order name: Basic Metabolic Panel EDMS 03/12 16:36 Order name: CBC with Automated Diff EDMS 03/12 16:36 Order name: CBC with Automated Diff EDMS 03/12 16:36 Order name: Magnesium EDMS 03/12 16:36 Order name: Magnesium EDMS 03/12 16:36 Order name: Phosphorus EDMS 03/12 16:36 Order name: Phosphorus EDMS 03/12 10:47 Order name: US Extremity Venous Unilateral Ltd; Complete Time: 11:37 cp 03/12 10:47 Order name: EKG; Complete Time: 10:47 cp 03/12 16:26 Order name: CONS Physician Consult EDMS 03/12 10:47 Order name: Cardiac monitoring; Complete Time: 10:51 cp 03/12 10:47 Order name: EKG - Nurse/Tech; Complete Time: 17:18 cp 03/12 10:47 Order name: IV Saline Lock; Complete Time: 11:59 cp 03/12 10:47 Order name: Labs collected and sent; Complete Time: 11:59 cp 03/12 10:47 Order name: O2 Per Protocol; Complete Time: 10:52 cp 03/12 10:47 Order name: O2 Sat Monitoring; Complete Time: 10:52 cp 03/12 15:02 Order name: Vital Signs: blood pressure update; Complete Time: 15:20 cp EC:26 Rate is 89 beats/min. Rhythm is regular. OH interval is normal. QRS interval is normal. cp QT interval is normal. T waves are Inverted in lead aVR. Interpreted by me. Reviewed by me. Administered Medications: 12:07 Drug: morphine IVP or IV 4 mg IVP once over 4 mins Route: IVP; Infused Over: 4 mins; ar6 Site: right hand; 13:36 Follow up: Response: No adverse reaction ar6 12:07 Drug: Ondansetron IVP 4 mg IVP once; over 2 minutes Route: IVP; Site: right hand; ar6 13:36 Follow up: Response: No adverse reaction ar6 12:32 Drug: hydrALAZINE IVP 20 mg IVP once Route: IVP; Site: right hand; ar6 13:36 Follow up: Response: No adverse reaction ar6 13:50 Drug: Labetalol IV 20 mg IV at calculated rate once over 2 mins Route: IV; Rate: ar6 calculated rate; Infused Over: 2 mins; Site: right wrist; 13:54 Drug: Clindamycin IVPB 600 mg IVPB once over 30 mins; (mix in 50 mL) Route: IVPB; ar6 Infused Over: 30 mins; Site: right wrist; 14:29 Follow up: IV Status: Completed infusion; IV Intake: 50ml tl4 14:29 Follow up: Response: No adverse reaction tl4 17:08 Drug: morphine IVP or IV 4 mg IVP once over 4 mins Route: IVP; Infused Over: 4 mins; tl4 Site: right wrist; 17:39 Follow up: Response: No adverse reaction; Pain is decreased tl4 17:09 Drug: hydrALAZINE IVP 20 mg IVP once; For SBP > 140 mmHg. Hold if less than 120 mmHg. tl4 Route: IVP; Site: right wrist; 17:39 Follow up: Response: No adverse reaction; Blood pressure is lowered tl4 Disposition Summary: 03/12/24 15:25 Hospitalization Ordered Notes: Hospitalization Status: Inpatient Admission cp Provider: Jw Mims cp Condition: Stable cp Problem: an acute exacerbation cp Symptoms: are unchanged cp Bed/Room Type: Standard cp Location: Telemetry/MedSurg (Inpatient)(03/12/24 17:19) bd Room Assignment: [facility](03/12/24 17:19) bd Diagnosis - Hypertensive heart and chronic kidney disease with heart failure and with stage 5 cp chronic kidney disease, or end stage renal disease Forms: - Medication Reconciliation Form cp - SBAR form cp - Leadership Thank You Letter cp Addendum: 03/15/2024 09:03 Co-signature as Attending Physician, Abdoul Burris MD I reviewed the patient's care r t provided by the Advanced Practice Provider and agree with the diagnosis and treatment plan. Signatures: Dispatcher [employer] EDMS Tana Valentin Corey, PA PA cp Abdoul Burris MD MD rt Berenice Watters, RN RN cm10 Lakhwinder Roy RN RN tl4 Lynette Hong RN RN ar6 Corrections: (The following items were deleted from the chart) 03/12 16:56 15:25 Telemetry/MedSurg (Inpatient) cp bd 16:56 15:25 cp bd 17:19 16:56 BR ER HOLD bd bd 17: 16:56 ERHOLD- bd bd
[2024-03-12] MEDS ORDERED: ONDANSETRON 4 MG/2 ML VIAL IV PRN (16:24)
[2024-03-12] MEDS ORDERED: ACETAMINOPHEN 500 MG TAB PO PRN (16:24)
--- NOTE | 2024-03-12 16:43 | P.HP ---
Certification for Inpatient Patient admitted to: Observation With expected LOS: <2 Midnights Practitioner: I am a practitioner with admitting privileges, knowledge of patient current condition, hospital course, and medical plan of care. Services: Services provided to patient in accordance with Admission requirements found in Title 42 Section 412.3 of the Code of Federal Regulations Patient History Date of Service: 03/12/24 Reason for admission: Wound to the right knee History of Present Illness: Shaun Lopez is a 33 year old female with Pmhx of ESRD, HTN causing CKD (TTS di alysis), migraines, status post brain tumor removal, right kidney transplant/nephrectomy d/t rejection, who presents to the ED with complaint of right knee wound which was getting worse. Patient stated she developed a small bump on the lateral aspect of her right knee which progressively got worse, develop redness around it, became more painful and started discharging.she states that she applied hydrogen peroxide without improvement so she presented to the emergency department for evaluation. Patient was noted to have CVA BP with systolic up to 212 in the ED. blood work abnormal result including anemia with hemoglobin of 9.5, mild thrombocytopenia and elevated creatinine. Patient was given IV labetalol and hydralazine for her blood pressure and given IV clindamycin for infected right knee wound. She is hospitalized for further management. Allergies sulfamethoxazole [From Bactrim] Allergy (Verified 10/27/23 00:24) Itching/Hives/Rash trimethoprim [From Bactrim] Allergy (Verified 10/27/23 00:24) Itching/Hives/Rash Home Medications: Clonidine Patch [Catapres-Tts 3*] 0.3 mg TD EVERY 7TH DAY 30 Days #1 box 01/23/24 Bumetanide 3 mg PO BID 01/30/24 Butalb/Acetaminophen/Caffeine [Jgiiok-Nxnqafwi-Hrbr 50-325-40] 1 each PO Q6HR PRN 01/30/24 Dapsone [Dapsone*] 100 mg PO DAILY 01/30/24 Sacubitril/Valsartan [Entresto 49 mg-51 mg Tablet] 1 tab PO DAILY 02/27/24 Apixaban [Eliquis *] 2.5 mg PO BID #60 tablet 02/28/24 Calcitrol [Rocaltrol*] 0.5 mcg PO DAILY #60 cap 03/06/24 Divalproex Sodium [Divalproex Sodium ER] 500 mg PO BEDTIME #30 tab.sr.24h 03/06/24 Doxazosin [Cardura*] 4 mg PO BID #60 tab 03/06/24 Epoetin [Procrit*] 10,000 unit IV EVERY HD vial 03/06/24 Heparin [Heparin 1,000 units/mL *] 6,000 unit IV EVERY HD PRN vial 03/06/24 Hydralazine HCl 100 mg PO DAILY PRN #30 tab 03/06/24 Nifedipine [Procardia Xl] 90 mg PO BID #60 tab 03/06/24 Olmesartan Medoxomil 40 mg PO DAILY #30 tab 03/06/24 Pregabalin [Lyrica] 50 mg PO BEDTIME #30 cap 03/06/24 Sevelamer Carbonate [Renvela*] 800 mg PO TIDWM #0 03/06/24 Vitamin D [Drisdol*] 50,000 unit PO Q7D@0900 #4 cap 03/06/24 atenoloL [Tenormin*] 50 mg PO BEDTIME tab 03/06/24 hydrOXYzine HCL [Atarax*] 25 mg PO Q6HP PRN #30 tab 03/06/24 - Past Medical/Surgical History Diabetic: No -: HTN -: ESRD (Dr. Wills/ [facility] A) -: Seizures (as a child) -: Brain tumor -: Asthma -: Csection x2 -: Brain Sx -: Kidney Transplant Nephrectomy/transplant was removed recently Psychosocial/ Personal History: Lives at home - Family History Family History: Reviewed- Non-Contributory - Social History Alcohol use: No CD- Drugs: No Caffeine use: No Review of Systems Other: Patient denied any chest pain, she denied any shortness of breath, she denied any leg swelling. She denied any fever or loss of appetite. Except as documented, all other systems reviewed and negative. Physical Examination - Physical Exam General: Alert, In no apparent distress, Oriented x3 HEENT: Mucous membr. moist/pink, Sclerae nonicteric Neck: Supple, JVD not distended Respiratory: Clear to auscultation bilaterally, Normal air movement Cardiovascular: No edema, Regular rate/rhythm, Normal S1 S2 Capillary refill: <2 Seconds Gastrointestinal: Normal bowel sounds, Soft and benign, Non-distended, No tenderness Musculoskeletal: No swelling, Tenderness (Right knee) Integumentary: Other (Ruptured pustule with surrounding erythema-lateral aspect of right knee) Neurological: Normal speech, Normal strength at 5/5 x4 extr, Cranial nerves 3-12 intact Lymphatics: No axilla or inguinal lymphadenopathy - Studies Laboratory Data (last 24 hrs) 03/12/24 03/12/24 11:57 11:57 WBC 6.10 Hgb 9.5 L Hct 29.9 L Plt Count 134 L Sodium 135 L Potassium 4.0 BUN 17 Creatinine 6.82 H Glucose 79 Magnesium 1.9 Assessment and Plan - Problems (Diagnosis) (1) Cellulitis of right knee Current Visit: Yes Status: Acute (2) Infected wound Current Visit: Yes Status: Acute (3) Chronic anemia Current Visit: Yes Status: Acute (4) ESRD (end stage renal disease) Current Visit: No Status: Acute (5) Hypertensive emergency Current Visit: No Status: Acute (6) Thrombocytopenia Current Visit: No Status: Acute - Plan Right knee infected wound Right knee cellulitis Admitted to the medical floor Start IV antibiotics-Rocephin and vancomycin Local wound care Analgesics as needed. Hypertensive emergency Resume home antihypertensives. Start oral hydralazine 100 mg as needed for severe hypertension. Nephrology consult. Monitor BP closely End-stage renal disease on hemodialysis Nephrology consult for routine hemodialysis. Right upper extremity DVT (POA) Continue home dose eliquis CHF Mild mitral regurgitation Mild tricuspil regurgitation Mild pulmonary HTN Continue home dose Bumex. Anemia of chronic disease Stable Monitor CBC History of Seizures as a child History of Brain tumor s/p surgery continue home medications Supportive care. History of asthma Bronchodilators as needed. DVT prophylaxis: Heparin SQ Advanced directive: Full code - Advance Directives Does patient have a Living Will: No Does patient have a Durable POA for Healthcare: No
[2024-03-12] MEDS: SEVELAMER CARBONATE 800 MG TABLET PO SCH (17:00)
[2024-03-12] MEDS: HEPARIN 5000 UNIT/ML 1 ML VIAL SQ SCH (17:00)
[2024-03-12] MEDS: DOXAZOSIN 4 MG TAB PO SCH (17:30)
[2024-03-12] MEDS: VANCOMYCIN 1.25 GM in NA CHLORIDE 0.9% 250 ML IVPB SCH (18:00)
[2024-03-12] MEDS ORDERED: HEPARIN 5000 UNIT/ML 1 ML VIAL ONE (18:33)
[2024-03-12] MEDS: hydrOXYzine HCL 25 MG TAB PO PRN (20:24)
[2024-03-12] MEDS: HYDROCODONE/APAP 5/325 MG TAB PO PRN (20:25)
[2024-03-12] MEDS: NIFEDIPINE XL 90 MG TABLET PO SCH (20:25)
[2024-03-12] MEDS: PREGABALIN 50 MG CAP PO SCH (20:25)
[2024-03-12] MEDS: atenoloL 50 MG TAB PO SCH (20:26)
[2024-03-12] MEDS: BUMETANIDE 1 MG TABLET PO SCH (20:26)
[2024-03-12] MEDS: LOSARTAN POTASSIUM 50 MG TABLET PO SCH (20:27)
[2024-03-12] MEDS: DIVALPROEX DR 500MG TAB PO SCH (20:27)
[2024-03-12] MEDS ORDERED: APIXABAN 2.5 MG TABLET PO SCH (21:00)
[2024-03-12] MEDS ORDERED: DOXAZOSIN 4 MG TAB PO SCH (21:00)
[2024-03-12] MEDS ORDERED: MANNITOL 25% 12.5 GM/50 ML VIAL IV PRN (21:24)
[2024-03-12] MEDS ORDERED: NA CHLORIDE 0.9% 1,000 ML IV PRN (21:24)
[2024-03-12] MEDS ORDERED: EPOETIN ALFA 10,000 UNIT/ML VIAL IV SCH (21:30)
[2024-03-12 21:31] VITALS: BMI 25.4
[2024-03-12] MEDS ORDERED: ALBUMIN HUMAN 25% 50 ML IV SCH (22:00)
[2024-03-13] MEDS: HYDRALAZINE HCL 25 MG TABLET PO PRN (00:54)
--- NOTE | 2024-03-13 07:27 | P.CNS ---
Date of Consult: 03/13/24 Reason for Consult: ESRD Requesting Physician: simone mims Chief Complaint: Wound to the right knee History of Present Illness: Shaun Lopez is a 33 year old female with Pmhx of ESRD, HTN causing CKD (TTS dialysis), migraines, status post brain tumor removal, right kidney transplant/nephrectomy d/t rejection, who presents to the ED with complaint of right knee wound which was getting worse. Patient stated she developed a small bump on the lateral aspect of her right knee which progressively got worse, develop redness around it, became more painful and started discharging.she states that she applied hydrogen peroxide without improvement so she presented to the emergency department for evaluation. Patient was noted to have CVA BP with systolic up to 212 in the ED. blood work abnormal result including anemia with hemoglobin of 9.5, mild thrombocytopenia and elevated creatinine. Patient was given IV labetalol and hydralazine for her blood pressure and given IV clindamycin for infected right knee wound. She is hospitalized for further management. Allergies sulfamethoxazole [From Bactrim] Allergy (Verified 10/27/23 00:24) Itching/Hives/Rash trimethoprim [From Bactrim] Allergy (Verified 10/27/23 00:24) Itching/Hives/Rash Home medications list reviewed: Yes Home Medications: Clonidine Patch [Catapres-Tts 3*] 0.3 mg TD EVERY 7TH DAY 30 Days #1 box 01/23/24 Bumetanide 3 mg PO BID 01/30/24 Butalb/Acetaminophen/Caffeine [Rjdoxv-Tfehslzg-Crlp 50-325-40] 1 each PO Q6HR PRN 01/30/24 Dapsone [Dapsone*] 100 mg PO DAILY 01/30/24 Sacubitril/Valsartan [Entresto 49 mg-51 mg Tablet] 1 tab PO DAILY 02/27/24 Apixaban [Eliquis *] 2.5 mg PO BID #60 tablet 02/28/24 Calcitrol [Rocaltrol*] 0.5 mcg PO DAILY #60 cap 03/06/24 Divalproex Sodium [Divalproex Sodium ER] 500 mg PO BEDTIME #30 tab.sr.24h 03/06/24 Doxazosin [Cardura*] 4 mg PO BID #60 tab 03/06/24 Epoetin [Procrit*] 10,000 unit IV EVERY HD vial 03/06/24 Heparin [Heparin 1,000 units/mL *] 6,000 unit IV EVERY HD PRN vial 03/06/24 Hydralazine HCl 100 mg PO DAILY PRN #30 tab 03/06/24 Nifedipine [Procardia Xl] 90 mg PO BID #60 tab 03/06/24 Olmesartan Medoxomil 40 mg PO DAILY #30 tab 03/06/24 Pregabalin [Lyrica] 50 mg PO BEDTIME #30 cap 03/06/24 Sevelamer Carbonate [Renvela*] 800 mg PO TIDWM #0 03/06/24 Vitamin D [Drisdol*] 50,000 unit PO Q7D@0900 #4 cap 03/06/24 atenoloL [Tenormin*] 50 mg PO BEDTIME tab 03/06/24 hydrOXYzine HCL [Atarax*] 25 mg PO Q6HP PRN #30 tab 03/06/24 - Past Medical/Surgical History Diabetic: No -: HTN -: ESRD (Dr. Wills/ [facility]) -: Seizures (as a child) -: Hx Brain tumor -: Asthma -: Csection x2 -: Brain Sx -: Kidney Transplant Nephrectomy/transplant was removed recently Psychosocial/ Personal History: Lives at home - Social History Smoking Status: Unknown if ever smoked Alcohol use: No CD- Drugs: No Caffeine use: No Place of Residence: Home Review of Systems 10-point ROS is otherwise unremarkable General: Malaise Integumentary: Lesions Physical Examination Temp Pulse Resp BP Pulse Ox 96.8 F 78 16 156/91 H 93 03/13/24 04:00 03/13/24 04:00 03/13/24 04:00 03/13/24 04:00 03/13/24 04:00 General: Oriented x3, Cooperative HEENT: Atraumatic Neck: Supple Respiratory: Normal air movement Cardiovascular: Regular rate/rhythm Gastrointestinal: Soft and benign, Non-distended Musculoskeletal: No clubbing, No contractures Integumentary: No rashes Neurological: Normal speech Laboratory Data (last 24 hrs) 03/12/24 03/12/24 11:57 11:57 WBC 6.10 Hgb 9.5 L Hct 29.9 L Plt Count 134 L Sodium 135 L Potassium 4.0 BUN 17 Creatinine 6.82 H Glucose 79 Magnesium 1.9 Imagings Data: [id number] EXAM DESCRIPTION: US - Extremity Venous Uni Ltd - 03/12/2024 11:14 am CLINICAL HISTORY: Pain;Swelling Leg swelling and edema. COMPARISON: UPPER EXTREMITY VENOUS UNILATE dated 02/28/2024 FINDINGS: Right lower extremity venous system was interrogated with Doppler technique. Normal flow, compressibility and augmentation was noted. There is no DVT present. IMPRESSION: No evidence of right lower extremity deep venous thrombosis. Conclusions/Impression: ESRD on HD TTS Hyponatremia -Acute HD ordered HTN with CKD -Continue Clonidine patch -Continue Atenolol, Nifedipine and Losartan -Restart Doxazosin Pulmonary HTN -HD with UF Infrarenal Aortic Dissection -Outpt follow up with vascular sx Anemia in CKD -Retacrit qHD CKD MBD -Continue Ergo & Calcitriol -Continue Renvela RLE Lesion/ Cellulitis -Continue Abx Case reviewed with Dr. Mims and Dr. Barclay Thank you kindly for the consultation
[2024-03-13 07:52] LABS: Absolute Basophils 0.1 K/uL (0-0.5); Absolute Eosinophils 0.6 K/uL (0-0.5); Absolute Lymphocytes (CBC) 0.9 K/uL (0.7-4.9); Absolute Neutrophil 2.9 K/uL (1.8-8.0); Basophils % 1.4 % (0-1.3); Eosinophils % 10.8 % (0-4.4); Hematocrit 30.6 % (36.0-45.0); Hemoglobin 10.2 g/dL (12.0-15.0); Lymphocytes % 16.4 % (15.3-44.8); MCH 28.9 pg (27.0-35.0); MCHC 33.3 g/dL (32.0-36.0); MCV 86.9 fL (80-100); MPV 8.6 fL (7.6-11.3); Monocytes % 18.1 % (3.3-12.3); Neutrophils % 53.3 % (41.7-73.7); Nucleated Red Blood Cells % 0.1 % (0-0); Platelets 197 thou/uL (152-406); RBC Red Blood Cell Count 3.53 M/uL (3.86-4.86); Red Cell Distribution Width 17.4 % (12.1-15.2)
[2024-03-13 08:21] LABS: Anion Gap 12.9 mEq/L (5.0-15.0); Magnesium 2.1 mg/dL (1.6-2.4); Phosphorus 5.7 mg/dL (2.5-4.9); Potassium 3.9 mEq/L (3.5-5.1)
[2024-03-13] MEDS: DRISDOL (VITAMIN D=ERGOCALCIFEROL) 50000 UNIT CAP PO SCH (08:59)
[2024-03-13] MEDS: DOXAZOSIN 2 MG TAB PO SCH (08:59)
[2024-03-13] MEDS ORDERED: VALSARTAN 160 MG TAB PO SCH (09:00)
[2024-03-13] MEDS: SACUBITRIL/VALSARTAN 49/51 MG TAB PO SCH (09:00)
[2024-03-13] MEDS: CEFTRIAXONE 1,000 MG in NA CHLORIDE 0.9% 50 ML IVPB SCH (09:00)
[2024-03-13] MEDS: CALCITROL 0.25 MCG CAP PO SCH (09:00)
[2024-03-13] MEDS: DAPSONE 100 MG TAB PO SCH (09:02)
--- NOTE | 2024-03-13 09:26 | P.PN ---
Date of Service: 03/13/24 Subjective: has been dealing with right knee wound since ~last Tuesday +intermittent drainage since Tuesday no significant change in appearance/swelling/redness since Tuesday per patient still quite painful no new / worsening problems afebrile ROS: 10 point ROS as noted above, otherwise negative Physical Exam: GEN: Alert, oriented, NAD CV: Regular rate and rhythm, no edema Pulm: Nonlabored respirations on room air, clear bilaterally Integumentary: R knee wound on lateral aspect, ~1 cm draining wound with surrounding induration; no obvious fluctuance Neuro: Normal speech, normal affect Problem List: Right knee cellulitis Hypertensive urgency ESRD on HD Right upper extremity DVT (POA) chronic CHF Anemia of chronic disease History of Seizures History of Brain tumor s/p surgery History of asthma Right knee cellulitis venous u/s negative for any acute findings. continue empiric rocephin / vanc for now () afebrile, no leukocytosis likely deescalate to oral abx on discharge follow wound culture with some purulent drainage intermittently; unclear if any collection of purulent material / abscess General surgery consulted to eval if debridement needed pt reports no significant change in wound/cellulitis/induration, needs continued IV antibiotics pain control Hypertensive urgency no end organ damage continue home atenolol, nifedipine, losartan continue clonidine patch resume home doxazosin Nephrology consult. Monitor BP closely improved ESRD on HD Nephrology consulted HD per nephrology - dialysis today continue Ergo, Calcitriol, Renvela Right upper extremity DVT (POA). Continue home dose eliquis chronic CHF. Continue home dose Bumex. Anemia of chronic disease. Monitor CBC History of Seizures. continue home medications History of Brain tumor s/p surgery. continue home medications History of asthma. Bronchodilators as needed. VTE: heparin sq Code: Full Dispo: Home ~1-2 days pending surgical recs further improvement of wound/infxn Time Spent Managing Pts Care (In Minutes): 39
[2024-03-13] MEDS: PIPER TAZO 3.375 GM in NA CHLORIDE 0.9% 100 ML IV SCH (12:00)
--- NOTE | 2024-03-13 16:56 | EKG ---
Test Date: 2024-03-12 Test Time: 12:19:19 Career Development Coordinator: ENDY MEASUREMENT RESULTS: Intervals: Rate: 89 NC: 162 QRSD: 100 QT: 386 QTc: 469 [place]: P: 58 NC: 162 QRS: -59 T: 53 INTERPRETIVE STATEMENTS: Normal sinus rhythm Left anterior fascicular block Septal infarct, age undetermined Abnormal ECG Compared to ECG 03/05/2024 17:49:27 Incomplete right bundle-branch block no longer present Myocardial infarct finding still present Electronically Signed On 03-13-24 16:53:17 CDT by Andres Uribe
[2024-03-13] MEDS ORDERED: VANCOMYCIN 1 GM in NA CHLORIDE 0.9% 250 ML IVPB SCH (18:00)
[2024-03-14 08:21] LABS: Absolute Eosinophils 0.8 K/uL (0-0.5); Absolute Lymphocytes (CBC) 0.8 K/uL (0.7-4.9); Absolute Monocytes 0.9 K/uL (0.1-1.3); Absolute Neutrophil 3.1 K/uL (1.8-8.0); Basophils % 0.9 % (0-1.3); Eosinophils % 14.3 % (0-4.4); Hemoglobin 10.1 g/dL (12.0-15.0); Lymphocytes % 14.7 % (15.3-44.8); MCH 27.9 pg (27.0-35.0); MCHC 31.6 g/dL (32.0-36.0); MCV 88.2 fL (80-100); Monocytes % 15.5 % (3.3-12.3); Neutrophils % 54.6 % (41.7-73.7); Platelets 179 thou/uL (152-406); RBC Red Blood Cell Count 3.63 M/uL (3.86-4.86); Red Cell Distribution Width 17.4 % (12.1-15.2)
[2024-03-14 08:32] LABS: Anion Gap 8.6 mEq/L (5.0-15.0); Magnesium 1.9 mg/dL (1.6-2.4); Potassium 3.6 mEq/L (3.5-5.1)
[2024-03-14 08:46] VITALS: BP 128/79; TEMP 97.3
--- NOTE | 2024-03-14 09:09 | P.DS ---
Admission Date: 03/13/24 Discharge Date: 03/14/24 Disposition: ROUTINE DISCHARGE Discharge Condition: GOOD Reason for Admission: Wound to the right knee Consultations: Nephrology - Dr. Velazco General surgery - Dr. Thomas Brief History of Present Illness: 33yo F, PMH: ESRD, HTN causing CKD (TTS dialysis), migraines, status post brain tumor removal, right kidney transplant/nephrectomy d/t rejection, Patient presents to the ED with complaint of right knee wound which was getting worse. Patient stated she developed a small bump on the lateral aspect of her right knee which progressively got worse, develop redness around it, became more painful and started discharging.she states that she applied hydrogen peroxide without improvement so she presented to the emergency department for evaluation. Patient was noted to have CVA BP with systolic up to 212 in the ED. blood work abnormal result including anemia with hemoglobin of 9.5, mild thrombocytopenia and elevated creatinine.Patient was given IV labetalol and hydralazine for her blood pressure and given IV clindamycin for infected right knee wound. She is hospitalized for further management. Hospital Course: Problem List: Right knee cellulitis Hypertensive urgency ESRD on HD Right upper extremity DVT (POA) chronic CHF Anemia of chronic disease History of Seizures History of Brain tumor s/p surgery History of asthma Physician discharge instructions: Patient presented with worsening right knee pain/swelling/redness with intermittent drainage that developed a few days ago after a fall secondary to right knee cellulitis. She was evaluated by Dr. Thomas, general surgery who recommended medical management with antibiotics. No evidence to warrant surgical intervention at this time. She briefly received ~1 day of IV antiobiotics and is to complete 7 more days of oral Augmentin on discharge. Wound culture grew Streptococcus Pyogenes, r esistant to clindamycin. Patient was feeling better, afebrile without leukocytosis and deemed stable for discharge. Avoid submerging wound underwater while the wound remains open. Okay to take showers with running water. Medications: Augmetin twice daily for 7 days continue home meds as previously prescribed. Follow up: PCP 3-5 days Please call to schedule / confirm appointments Physical Exam: GEN: Alert, oriented, NAD CV: Regular rate and rhythm, no edema Pulm: Nonlabored respirations on room air, clear bilaterally Integumentary: R knee wound on lateral aspect, no obvious fluctuance Neuro: Normal speech, normal affect Vital Signs/Physical Exam: Temp Pulse Resp BP Pulse Ox 97.3 F 77 14 128/79 92 03/14/24 08:00 03/14/24 08:00 03/14/24 08:00 03/14/24 08:00 03/14/24 08:00 Laboratory Data at Discharge: WBC 5.60 thou/uL (4.3-10.9) 03/14/24 08:06 Hgb 10.1 g/dL (12.0-15.0) L 03/14/24 08:06 Hct 32.0 % (36.0-45.0) L 03/14/24 08:06 Plt Count 179 thou/uL (152-406) 03/14/24 08:06 Sodium 137 mEq/L (136-145) 03/14/24 08:06 Potassium 3.6 mEq/L (3.5-5.1) 03/14/24 08:06 BUN 12 mg/dL (7-18) 03/14/24 08:06 Creatinine 5.18 mg/dL (0.55-1.02) H 03/14/24 08:06 Glucose 102 mg/dL (74-106) 03/14/24 08:06 Phosphorus 5.7 mg/dL (2.5-4.9) H 03/13/24 07:28 Magnesium 1.9 mg/dL (1.6-2.4) 03/14/24 08:06 Home Medications: Clonidine Patch [Catapres-Tts 3*] 0.3 mg TD EVERY 7TH DAY 30 Days #1 box 01/23/24 Bumetanide 3 mg PO BID 01/30/24 Butalb/Acetaminophen/Caffeine [Uflene-Incjykef-Qppa 50-325-40] 1 each PO Q6HR PRN 01/30/24 Dapsone [Dapsone*] 100 mg PO DAILY 01/30/24 Sacubitril/Valsartan [Entresto 49 mg-51 mg Tablet] 1 tab PO DAILY 02/27/24 Apixaban [Eliquis *] 2.5 mg PO BID #60 tablet 02/28/24 Calcitrol [Rocaltrol*] 0.5 mcg PO DAILY #60 cap 03/06/24 Divalproex Sodium [Divalproex Sodium ER] 500 mg PO BEDTIME #30 tab.sr.24h 03/06/24 Doxazosin [Cardura*] 4 mg PO BID #60 tab 03/06/24 Epoetin [Procrit*] 10,000 unit IV EVERY HD vial 03/06/24 Heparin [Heparin 1,000 units/mL *] 6,000 unit IV EVERY HD PRN vial 03/06/24 Hydralazine HCl 100 mg PO DAILY PRN #30 tab 03/06/24 Nifedipine [Procardia Xl] 90 mg PO BID #60 tab 03/06/24 Olmesartan Medoxomil 40 mg PO DAILY #30 tab 03/06/24 Pregabalin [Lyrica*] 50 mg PO BEDTIME #30 cap 03/06/24 Sevelamer Carbonate [Renvela*] 800 mg PO TIDWM #0 03/06/24 Vitamin D [Drisdol*] 50,000 unit PO Q7D@0900 #4 cap 03/06/24 atenoloL [Tenormin*] 50 mg PO BEDTIME tab 03/06/24 hydrOXYzine HCL [Atarax*] 25 mg PO Q6HP PRN #30 tab 03/06/24 Amoxicillin/Potassium Clav [Augmentin 500-125 Tablet] 1 each PO BID 7 Days #14 tab 03/14/24 New Medications: Amoxicillin/Potassium Clav [Augmentin 500-125 Tablet] 1 each PO BID 7 Days #14 tab Physician Discharge Instructions: Physician discharge instructions: Patient presented with worsening right knee pain/swelling/redness with intermittent drainage that developed a few days ago after a fall secondary to right knee cellulitis. She was evaluated by Dr. Thomas, general surgery who recommended medical management with antibiotics. No evidence to warrant surgical intervention at this time. She briefly received ~1 day of IV antiobiotics and is to complete 7 more days of oral Augmentin on discharge. Wound culture grew Streptococcus Pyogenes, resista nt to clindamycin. Patient was feeling better, afebrile without leukocytosis and deemed stable for discharge. Avoid submerging wound underwater while the wound remains open. Okay to take showers with running water. Medications: Augmetin twice daily for 7 days continue home meds as previously prescribed. Follow up: PCP 3-5 days Please call to schedule / confirm appointments Followup: NONE,NONE [Primary Care Provider] - Time spent managing pt's care (in minutes): 45
[2024-03-14 09:50] LABS: Blood Morphology Comment NOT SEEN (NOT SEEN); Platelet Estimate ADEQ; White Blood Cell Scan OK (OK)
--- NOTE | 2024-03-14 10:00 | P.PN ---
Date of Service: 03/14/24 Vital Signs Temp Pulse Resp BP Pulse Ox 97.3 F 77 14 128/79 92 03/14/24 08:00 03/14/24 09:43 03/14/24 08:00 03/14/24 09:43 03/14/24 08:00 Medications Acetaminophen (Acetaminophen 500 Mg Tab) 500 mg PO Q4HP PRN PRN Reason: TEMP > 100' F Hydrocodone Bitart/Acetaminophen (Hydrocodone/Apap 5/325 Mg Tab) 1 tab PO Q6H PRN PRN Reason: Pain scale 5-7 (Moderate) Last Admin: 03/12/24 20:25 Dose: 1 tab Atenolol (Atenolol 50 Mg Tab) 50 mg PO BEDTIME [facility] Last Admin: 03/13/24 21:46 Dose: 50 mg Bumetanide (Bumetanide 1 Mg Tablet) 3 mg PO BID [facility] Last Admin: 03/14/24 09:43 Dose: 3 mg Calcitriol (Calcitrol 0.25 Mcg Cap) 0.5 mcg PO DAILY [facility] Last Admin: 03/14/24 09:43 Dose: 0.5 mcg Clonidine HCl (Clonidine 0.3 Mg/Patch) 0.3 mg TD EVERY 7TH DAY [facility] Dapsone (Dapsone 100 Mg Tab) 100 mg PO DAILY [facility]; Protocol Last Admin: 03/14/24 09:45 Dose: 100 mg Divalproex Sodium (Divalproex Dr 500mg Tab) 500 mg PO BEDTIME [facility] Last Admin: 03/13/24 21:45 Dose: 500 mg Doxazosin Mesylate (Doxazosin 2 Mg Tab) 2 mg PO BID [facility] Last Admin: 03/14/24 09:43 Dose: 2 mg Epoetin Ever (Epoetin Ever 10,000 Unit/Ml Vial) 10,000 unit IV EVERY HD [facility] Ergocalciferol (Drisdol (Vitamin D=Ergocalciferol) 10949 Unit Cap) 50,000 unit PO Q7D@0900 [facility] Last Admin: 03/13/24 08:59 Dose: 50,000 unit Heparin Sodium (Porcine) (Heparin 5000 Unit/Ml 1 Ml Vial) 5,000 unit SQ Q8HR [facility] Last Admin: 03/14/24 00:21 Dose: Not Given Heparin Sodium (Porcine) (Heparin 1,000 Unit/Ml Vial) 6,000 unit IV EVERY HD PRN PRN Reason: AFTER EACH Heparin Sodium (Porcine) (Heparin 1,000 Unit/Ml Vial) 6,000 unit IV EVERY HD PRN PRN Reason: AFTER EACH Hydralazine HCl (Hydralazine Hcl 25 Mg Tablet) 100 mg PO DAILY PRN PRN Reason: SBP > 160 Last Admin: 03/13/24 00:54 Dose: 100 mg Hydroxyzine HCl (Hydroxyzine Hcl 25 Mg Tab) 25 mg PO Q6HP PRN PRN Reason: ITCHING Last Admin: 03/13/24 21:48 Dose: 25 mg Albumin Human (Albumin 25%) 50 mls @ 100 mls/hr IV EVERY HD [facility] Piperacillin Sod/Tazobactam (Sod 3.375 gm/ Sodium Chloride) 100 mls @ 25 mls/hr IV Q12HR [facility] Last Admin: 03/13/24 21:47 Dose: 100 mls Losartan Potassium (Losartan Potassium 50 Mg Tablet) 50 mg PO BID [facility] Last Admin: 03/14/24 09:43 Dose: 50 mg Mannitol (Mannitol 25% 12.5 Gm/50 Ml Vial) 12.5 gm IV EVERY HD PRN PRN Reason: Titrate to SBP (MUST DEFINE) Nifedipine (Nifedipine Xl 90 Mg Tablet) 90 mg PO BID [facility] Last Admin: 03/14/24 09:43 Dose: 90 mg Ondansetron HCl (Ondansetron 4 Mg/2 Ml Vial) 4 mg IV Q6HP PRN PRN Reason: NAUSEA / VOMITING Pregabalin (Pregabalin 50 Mg Cap) 50 mg PO BEDTIME [facility] Last Admin: 03/13/24 21:46 Dose: 50 mg Sevelamer Carbonate (Sevelamer Carbonate 800 Mg Tablet) 800 mg PO TIDWM [facility] Last Admin: 03/14/24 09:43 Dose: 800 mg Microbiology Results 03/12/24 11:30 Wound - Right Lower Leg Gram Stain - Final 03/12/24 11:30 Wound - Right Lower Leg Culture & Sensitivity - Final Streptococcus Pyogenes Assessment/ Plan: Nephrology Progress Note No Dyspnea No Chest Pain Feeling better No Acute Events Overnight Vital Signs, Medications, Blood Work, and Imaging reviewed in the chart NAD. NCAT. MMM. Neck Supple. Normal Respiratory Effort. RRR. Abd ND. No C/C. LE Edema. No Rash. AAO. Normal Speech. Assessment & Plan General: Oriented x3, Cooperative HEENT: Atraumatic Neck: Supple Respiratory: Normal air movement Cardiovascular: Regular rate/rhythm Gastrointestinal: Soft and benign, Non-distended Musculoskeletal: No clubbing, No contractures Integumentary: No rashes Neurological: Normal speech Laboratory Data (last 24 hrs) 03/12/24 03/12/24 11:57 11:57 WBC 6.10 Hgb 9.5 L Hct 29.9 L Plt Count 134 L Sodium 135 L Potassium 4.0 BUN 17 Creatinine 6.82 H Glucose 79 Magnesium 1.9 Imagings Data: [id number] EXAM DESCRIPTION: US - Extremity Venous Uni Ltd - 03/12/2024 11:14 am CLINICAL HISTORY: Pain;Swelling Leg swelling and edema. COMPARISON: UPPER EXTREMITY VENOUS UNILATE dated 02/28/2024 FINDINGS: Right lower extremity venous system was interrogated with Doppler tech ghazalaque. Normal flow, compressibility and augmentation was noted. There is no DVT present. IMPRESSION: No evidence of right lower extremity deep venous thrombosis. Conclusions/Impression: ESRD on HD TTS Hyponatremia -HD TIS HTN with CKD -Continue Clonidine patch -Continue Atenolol, Nifedipine and Losartan -Continue Doxazosin Pulmonary HTN -HD with UF Infrarenal Aortic Dissection -Outpt follow up with vascular sx Anemia in CKD -Retacrit qHD CKD MBD -Continue Ergo & Calcitriol -Continue Renvela RLE Lesion/ Cellulitis -Continue Abx Case reviewed with Dr. Barclay
[2024-03-14 10:07] VITALS: O2SAT 92
[2024-03-14] MEDS ORDERED: VANCOMYCIN 1 GM in NA CHLORIDE 0.9% 250 ML IVPB SCH (18:00)
[2024-03-15] MEDS ORDERED: VANCOMYCIN 1 GM in NA CHLORIDE 0.9% 250 ML IVPB SCH (18:00)
[2024-03-17] MEDS ORDERED: CLONIDINE 0.3 MG/PATCH TD SCH (09:00)
== END 2024-03-14 09:58 | disposition home or self-care (01) | DRG 602 ==
LOC: ER 10:17 → ERHOLD 16:18 → 4TH 17:32 → OBSVTOIN 19:56 → INTOOBSV 19:56 → OBSVTOIN 03-13 19:56
PROVIDERS: ADMIT Internal Medicine; ATTEND Hospitalist
PROC: 5A1D70Z Performance of Urinary Filtration, Intermittent, Less than 6 Hours Per Day (ICD-10-PCS; principal; 2024-03-13)
DX: L03.115 Cellulitis of right lower limb (principal); I71.00 Dissection of unspecified site of aorta; N18.6 End stage renal disease; Z94.0 Kidney transplant status; I16.1 Hypertensive emergency; I13.2 Hypertensive heart and chronic kidney disease with heart failure and with stage 5 chronic kidney disease, or end stage renal disease; E87.1 Hypo-osmolality and hyponatremia; Z16.29 Resistance to other single specified antibiotic; I50.9 Heart failure, unspecified; D63.1 Anemia in chronic kidney disease; D69.6 Thrombocytopenia, unspecified; I27.20 Pulmonary hypertension, unspecified; I08.1 Rheumatic disorders of both mitral and tricuspid valves; B95.0 Streptococcus, group A, as the cause of diseases classified elsewhere; Z90.5 Acquired absence of kidney; Z99.2 Dependence on renal dialysis; Z88.1 Allergy status to other antibiotic agents; Z79.01 Long term (current) use of anticoagulants; Z91.040 Latex allergy status; Z91.018 Allergy to other foods; Z79.899 Other long term (current) drug therapy; Z91.048 Other nonmedicinal substance allergy status; Z86.718 Personal history of other venous thrombosis and embolism
CPT/HCPCS: 36415; 80048; 80202; 83735; 84100; 84703; 85025; 87070; 87077; 87186; 87205; 90935; 93005; 93971; 99284; G0378; J0360; J0696; J1644; J2405; J2543; J7050

== ENCOUNTER 2024-04-09 15:37 | Observation (INO) | payer OTHER ==
[2024-04-09] MEDS ORDERED: ONDANSETRON 4 MG/2 ML VIAL ONE (16:12)
[2024-04-09] MEDS ORDERED: NA CHLORIDE 0.9% 1,000 ML ONE (16:12)
[2024-04-09 16:32] LABS: Absolute Eosinophils 0.5 K/uL (0-0.5); Absolute Lymphocytes (CBC) 0.8 K/uL (0.7-4.9); Absolute Monocytes 0.6 K/uL (0.1-1.3); Absolute Neutrophil 4.5 K/uL (1.8-8.0); Basophils % 0.7 % (0-1.3); Eosinophils % 8.2 % (0-4.4); Hematocrit 35.4 % (36.0-45.0); Hemoglobin 11.3 g/dL (12.0-15.0); Lymphocytes % 12.2 % (15.3-44.8); MCH 28.3 pg (27.0-35.0); MCHC 31.7 g/dL (32.0-36.0); MCV 89.2 fL (80-100); MPV 8.6 fL (7.6-11.3); Monocytes % 8.7 % (3.3-12.3); Neutrophils % 70.2 % (41.7-73.7); Nucleated Red Blood Cells % 0.1 % (0-0); Platelets 192 thou/uL (152-406); RBC Red Blood Cell Count 3.97 M/uL (3.86-4.86); Red Cell Distribution Width 19.2 % (12.1-15.2)
[2024-04-09 16:33] LABS: Specific Gravity 1.008 (1.005-1.030)
[2024-04-09 16:36] LABS: Specific Gravity 1.008 (1.005-1.030); Sqamous Epithelial <5 /HPF (None Seen); Transitional Epithelial <5 /HPF (None Seen); Urine Bacteria <20 /HPF (<20); Urine Bilirubin NEGATIVE (Negative); Urine Blood Trace (Negative); Urine Clarity Turbid (Clear); Urine Color Light-Yellow (Yellow); Urine Culture Reflex Order NOT NEEDED; Urine Glucose NEGATIVE (Negative); Urine Ketones NEGATIVE (Negative); Urine Microscopic Reflex YN ORDER UMIC; Urine Mucus Slight /HPF (None Seen); Urine Nitrite NEGATIVE (Negative); Urine Protein 3+ (Negative); Urine Urobilinogen Normal (Normal); Urine WBC <5 /HPF (<5)
[2024-04-09] MEDS ORDERED: HYDROMORPHONE HCL 1 MG/ML INJ ONE ×2 (17:18→17:32)
[2024-04-09] MEDS ORDERED: HYDRALAZINE HCL 20 MG/ML VIAL ONE ×2 (17:18→17:57)
[2024-04-09 17:58] LABS: Protime INR 1.35
[2024-04-09] MEDS ORDERED: LABETALOL HCL 100 MG TAB ONE (18:09)
[2024-04-09] MEDS ORDERED: LABETALOL 20 MG/4ML SYRINGE IV ONE ×2 (18:09→18:20)
--- NOTE | 2024-04-09 18:13 | RAD REPORT ---
EXAM: CT CHEST, ABDOMEN AND PELVIS WITHOUT CONTRAST CLINICAL INDICATION: Female, 33 years old Cough;Pain TECHNIQUE: CT chest, abdomen and pelvis was performed, without IV contrast[facility] Axial, sagittal and coronal reconstructions were obtained. One or more of the following dose reduction techniques were used: Automated exposure control, adjustment of the mA and/or kV according to the patient size, and/or iterative reconstruction. Unless otherwise specified, incidental findings do not require dedicated imaging follow-up. [id number]. COMPARISON: No prior exam. FINDINGS: The lack of intravenous contrast limits the sensitivity of this exam for evaluation of solid visceral organs, vascular structures, and retroperitoneum. Chest: LOWER NECK/CHEST WALL: Visualized thyroid gland and soft tissues are normal. LUNGS AND AIRWAYS: Airways are clear. No evidence of airspace or interstitial process. No nodules. PLEURA: Small bilateral effusions. MEDIASTINUM AND LYMPH NODES: No mediastinal mass or fluid collection. Normal size mediastinal, hilar, and axillary lymph nodes. THORACIC AORTA: Normal caliber and configuration. PULMONARY ARTERIES: Normal caliber. HEART: Cardiomegaly. Small pericardial effusion. Abdomen/Pelvis LIVER: Normal in size and contour. No focal lesion. GALLBLADDER/BILE DUCTS: No biliary ductal dilatation. PANCREAS: No mass, ductal dilation, or hillary-pancreatic fluid. SPLEEN: Normal size. No focal lesion. ADRENALS: Normal; no mass. KIDNEYS AND URETERS: Atrophic kidneys. GASTROINTESTINAL TRACT: Stomach is non-dilated. Small bowel has normal course and caliber. No colonic wall thickening or pericolonic inflammatory changes. PERITONEUM: Moderate ascites. Body wall edema. LYMPH NODES: No lymphadenopathy. ABDOMINAL AORTA AND OTHER VESSELS: Normal caliber aorta and IVC. URINARY BLADDER: Normal contour. REPRODUCTIVE ORGANS: No pathologic process. MUSCULOSKELETAL: No acute or suspicious osseous abnormality. ADDITIONAL FINDINGS: None IMPRESSION: Anasarca including moderate ascites, body wall edema, small pleural effusions. No source of infection is identified within the limitations of noncontrast CT.
[2024-04-09 18:21] LABS: ALT/SGPT 17 U/L (13-56); AST/SGOT 13 U/L (15-37); Albumin 2.9 g/dL (3.4-5.0); Albumin/Globulin Ratio 0.9 (1.1-1.8); Alkaline Phosphatase 79 U/L (45-117); Anion Gap 14.4 mEq/L (5.0-15.0); BUN Blood Urea Nitrogen 28 mg/dL (7-18); Bicarbonate 23 mEq/L (21-32); Bilirubin Direct 0.7 mg/dL (0-0.2); Bilirubin Total 1.1 mg/dL (0.2-1.0); Globulin 3.4 g/dL (2.3-3.5); Glomerular Filtration Rate 7 ml/min (=/>90); Glucose Level 100 mg/dL (74-106); Magnesium 2.1 mg/dL (1.6-2.4); Potassium 4.4 mEq/L (3.5-5.1); Protein, Total 6.3 g/dL (6.4-8.2); Sodium Level 135 mEq/L (136-145); Troponin High Sensitivity 23.7 pg/mL (<58.9)
--- NOTE | 2024-04-09 18:26 | EDPHYS ---
Physician Documentation [facility] Name: Shaun Lopez Age: 33 yrs Sex: Female : 1990 Arrival Date: 04/09/2024 Time: 15:37 Bed 19 Private MD: NICHELLE Physician Javon Rodriguez HPI: 04/09 17:12 This 33 yrs old Female presents to ER via Ambulatory with complaints of Low trevor Back Pain, Vomiting. 17:12 The patient presents with pain that is acute, with no known mechanism of injury. The trevor symptoms are located in the low back. The pain does not radiate. The problem was sustained from unknown cause. Onset: The symptoms/episode began/occurred 3 day(s) ago. Modifying factors: The patient symptoms are alleviated by remaining still, the patient symptoms are aggravated by any movement. Severity of symptoms: At their worst the symptoms were moderate, in the emergency department the symptoms are unchanged. The patient has experienced similar episodes in the past, multiple times. 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 - Infectious Disease History:: Denies. - Social history:: Smoking status: unknown. - Family history:: not pertinent. ROS: 17:15 Constitutional: Negative for fever, chills, and weight loss, Eyes: Negative for injury, trevor pain, redness, and discharge, ENT: Negative for injury, pain, and discharge, Neck: Negative for injury, pain, and swelling, Cardiovascular: Negative for chest pain, palpitations, and edema, Respiratory: Negative for shortness of breath, cough, wheezing, and pleuritic chest pain, : Negative for injury, bleeding, discharge, and swelling, MS/Extremity: Negative for injury and deformity, Skin: Negative for injury, rash, and discoloration, Neuro: Negative for headache, weakness, numbness, tingling, and seizure, Psych: Negative for depression, anxiety, suicide ideation, homicidal ideation, and hallucinations, Allergy/Immunology: Negative for hives, rash, and allergies, Endocrine: Negative for neck swelling, polydipsia, polyuria, polyphagia, and marked weight changes, Hematologic/Lymphatic: Negative for swollen nodes, abnormal bleeding, and unusual bruising, 17:15 Abdomen/GI: Positive for abdominal pain, abdominal cramps, 17:15 Back: Positive for pain at rest, pain with movement, of the lumbar area, Exam: 17:15 Constitutional: This is a well developed, well nourished patient who is awake, alert, trevor and in no acute distress. Head/Face: Normocephalic, atraumatic. Eyes: Pupils equal round and reactive to light, extra-ocular motions intact. Lids and lashes normal. Conjunctiva and sclera are non-icteric and not injected. Cornea within normal limits. Periorbital areas with no swelling, redness, or edema. ENT: Nares patent. No nasal discharge, no septal abnormalities noted. Tympanic membranes are normal and external auditory canals are clear. Oropharynx with no redness, swelling, or masses, exudates, or evidence of obstruction, uvula midline. Mucous membranes moist. Neck: Trachea midline, no thyromegaly or masses palpated, and no cervical lymphadenopathy. Supple, full range of motion without nuchal rigidity, or vertebral point tenderness. No Meningismus. Chest/axilla: Normal chest wall appearance and motion. Nontender with no deformity. No lesions are appreciated. Cardiovascular: Regular rate and rhythm with a normal S1 and S2. No gallops, murmurs, or rubs. Normal PMI, no JVD. No pulse deficits. Respiratory: Lungs have equal breath sounds bilaterally, clear to auscultation and percussion. No rales, rhonchi or wheezes noted. No increased work of breathing, no retractions or nasal flaring. Abdomen/GI: Soft, non-tender, with normal bowel sounds. No distension or tympany. No guarding or rebound. No evidence of tenderness throughout. Skin: Warm, dry with normal turgor. Normal color with no rashes, no lesions, and no evidence of cellulitis. MS/ Extremity: Pulses equal, no cyanosis. Neurovascular intact. Full, normal range of motion. Neuro: Awake and alert, GCS 15, oriented to person, place, time, and situation. Cranial nerves II-XII grossly intact. Motor strength 5/5 in all extremities. Sensory grossly intact. Cerebellar exam normal. Normal gait. Psych: Awake, alert, with orientation to person, place and time. Behavior, mood, and affect are within normal limits. 17:15 Back: pain, that is mild, that is moderate, ROM is normal, normal spinal alignment noted, CVA tenderness, that is mild, 17:39 ECG was reviewed by the Attending Physician. [facility] Vital Signs: 16:00 BP 232 / 160; Pulse 85; Resp 15; Temp 98.5(O); Pulse Ox 95% on R/A; Weight 62.6 kg; cm10 Height 5 ft. 1 in. ; Pain 8/10; 16:32 BP 219 / 152; kc6 16:45 BP 216 / 152; kc6 17:21 BP 218 / 155; kc6 17:25 BP 206 / 144; kc6 17:30 BP 195 / 146; kc6 17:48 BP 174 / 134; kc6 18:01 BP 175 / 125; Pulse 80; Resp 18 S; Pulse Ox 98% on R/A; Pain 4/10; kc6 18:14 BP 171 / 120; Pulse 82; Resp 14 S; Pulse Ox 96% on R/A; kc6 18:19 BP 171 / 119; kc6 18:24 BP 166 / 115; Pulse 79; Resp 15 S; Pulse Ox 96% on R/A; kc6 18:54 BP 148 / 104; Pulse 88; Resp 16 S; Pulse Ox 98% on R/A; kc6 19:39 BP 172 / 121; Pulse 80; Resp 17; Temp 98.4(O); Pulse Ox 97% on R/A; Pain 0/10; rg5 20:19 BP 157 / 108; Pulse 83; Resp 17; Pulse Ox 96% on R/A; rg5 16:00 Body Mass Index 26.07 (62.60 kg, 154.94 cm) cm10 16:00 Pain Scale: Adult cm10 18:01 Pain Scale: Adult kc6 19:39 Pain Scale: Adult rg5 MDM: 16:12 Patient medically screened. [facility] 17:18 Differential diagnosis: strain, Herniated disc UTI. Data reviewed: vital signs, nurses [facility] notes, lab test result(s), EKG, radiologic studies, CT scan. Consideration of Admission/Observation Patient was admitted/placed on observation. Escalation of care including admission/observation considered. I considered the following discharge prescriptions or medication management in the emergency department Medications were administered in the Emergency Department. See MAR. Independent interpretation of the following test(s) in the Emergency Department EKG: See my EKG interpretation above. Test considered but Not performed: Ultrasound no 2 d echo. Historians other than the Patient: pt well informed. Care significantly affected by the following chronic conditions: Diabetes, Hypertension, Congestive Heart Failure, Cancer, Chronic Kidney Disease, seizure, migraine. 04/09 15:58 Order name: CBC with Diff; Complete Time: 17:58 [facility] 04/09 15:58 Order name: Urinalysis w/ reflexes; Complete Time: 17:58 [facility] 04/09 15:58 Order name: PREGU; Complete Time: 17:58 [facility] 04/09 17:07 Order name: Magnesium [facility] 04/09 17:07 Order name: NT PRO-BNP [facility] 04/09 17:07 Order name: PT-INR; Complete Time: 18:06 [facility] 04/09 17:07 Order name: Troponin HS [facility] 04/09 17:57 Order name: Comprehensive Metabolic Panel [facility] 04/09 17:57 Order name: Bilirubin Direct [facility] 04/09 20:01 Order name: Urinalysis w/ reflexes [facility] 04/09 17:07 Order name: XRAY Chest (1 view); Complete Time: 18:37 [facility] 04/09 17:12 Order name: CT Chest Abdomen Pelvis W/O Contrast; Complete Time: 18:17 [facility] 04/09 20:01 Order name: Echo without Doppler (2D) [facility] 04/09 17:07 Order name: EKG; Complete Time: 17:07 [facility] 04/09 16:38 Order name: Labs - recollect needed: recollect green top; Complete Time: 17:45 04/09 17:07 Order name: Cardiac monitoring; Complete Time: 17:34 [facility] 04/09 17:07 Order name: EKG - Nurse/Tech; Complete Time: 17:34 [facility] 04/09 17:07 Order name: IV Saline Lock; Complete Time: 17:07 [facility] 04/09 17:07 Order name: Labs collected and sent; Complete Time: 17:07 trevor 04/09 17:07 Order name: O2 Per Protocol; Complete Time: 17: trevor 04/09 17:07 Order name: O2 Sat Monitoring; Complete Time: 17: [facility] 04/09 17:58 Order name: Misc. Order: give all meds; Complete Time: 18:00 trevor EC:39 Rate is 77 beats/min. Rhythm is regular. QRS [place] is Normal. [place] interval is normal. QRS trevor interval is normal. QT interval is normal. No Q waves. T waves are Normal. No ST changes noted. Clinical impression: NSR w/ Non-specific ST/T Changes and No evidence of ischemia. Interpreted by me. Reviewed by me. Administered Medications: 16:41 Drug: NS 0.9% IV 1000 ml IV at 1 bolus Per protocol; 1000 mL bolus Route: IV; Rate: 1 kc6 bolus; Site: right forearm; 19:00 Follow up: IV Status: Completed infusion; IV Intake: 1000ml rg5 16:41 Drug: Ondansetron IVP 4 mg IVP once; over 2 minutes Route: IVP; Site: right forearm; kc6 17:36 Follow up: Response: No adverse reaction kc6 17:34 Drug: HYDROmorphone IVP 1 mg IVP once Route: IVP; Site: right forearm; kc6 18:01 Follow up: Response: No adverse reaction; Pain is decreased; RASS: Alert and Calm (0) kc6 17:34 Drug: hydrALAZINE IVP 20 mg IVP once Route: IVP; Site: right forearm; kc6 18:01 Follow up: Response: No adverse reaction; Blood pressure is unchanged kc6 17:59 Drug: hydrALAZINE IVP 20 mg IVP once Route: IVP; Site: right forearm; kc6 18:07 Follow up: Response: No adverse reaction; Blood pressure is unchanged kc6 18:14 Drug: Labetalol PO 100 mg PO once Route: PO; kc6 18:41 Follow up: Response: No adverse reaction; Blood pressure is unchanged kc6 18:14 Drug: Labetalol IV 20 mg IV at per protocol once over 2 mins Route: IV; Rate: per kc6 protocol; Infused Over: 2 mins; Site: right forearm; 18:23 Follow up: Response: No adverse reaction; Blood pressure is unchanged; IV Status: kc6 Completed infusion; IV Intake: 4ml 18:23 Drug: Labetalol IV 20 mg IV at per protocol once over 2 mins Route: IV; Rate: per kc6 protocol; Infused Over: 2 mins; Site: right forearm; 19:00 Follow up: IV Status: Completed infusion; IV Intake: 5ml rg5 18:53 Drug: MethylPrednisoLONE IVP 125 mg IVP once Route: IVP; Site: right forearm; kc6 19:34 Follow up: Response: No adverse reaction rg5 18:53 Drug: Famotidine IVP 20 mg IVP once; dilute with 10 mL 0.9% NaCl; give over 2 minutes kc6 Route: IVP; Site: right forearm; 19:34 Follow up: Response: No adverse reaction rg5 18:54 Drug: diphenhydrAMINE IVP 25 mg IVP once Route: IVP; Site: right forearm; kc6 19:34 Follow up: Response: No adverse reaction rg5 Disposition Summary: 04/09/24 18:26 Hospitalization Ordered Notes: Provider: Olga Moran cha Condition: Fair trevor Problem: new trevor Symptoms: have improved trevor Bed/Room Type: Standard trevor Hospitalization Status: Observation(04/09/24 18:44) trevor Location: Telemetry/MedSurg (observation)(04/09/24 18:44) trevor Room Assignment: [facility](04/09/24 20:17) [facility] Diagnosis - Hypertensive crisis, unspecified trevor - Dependence on renal dialysis trevor - Vomiting trevor - Other ascites trevor Forms: - Medication Reconciliation Form trevor - SBAR form trevor - Leadership Thank You Letter trevor Signatures: Dispatcher [employer] EDMS Tana Valentin Corey, MD MD cha Campbell, Kaitlyn RN RN kc6 Berenice Watters RN RN cm10 Roberta Philip [facility] Martin Salazar RN rg5 Corrections: (The following items were deleted from the chart) 17:56 15:59 COMPREHENSIVE METABOLIC PANEL+C.LAB.BRZ ordered. EDMS EDMS 17:57 17:07 BASIC METABOLIC PANEL+C.LAB.BRZ ordered. EDMS EDMS 17:57 17:07 HEPATIC FUNCTION+C.LAB.BRZ ordered. EDMS EDMS 18:26 18:26 Observation trevor trevor 18:26 18:26 Telemetry/MedSurg (observation) trevor trevor 18:26 18:26 trevor trevor 18:44 18:26 Inpatient Admission trevor trevor 18:44 18:26 Telemetry/MedSurg (Inpatient) trevor trevor 18:44 18:26 trevor trevor 20:17 18:44 trevor kmf
--- NOTE | 2024-04-09 18:26 | ER ---
Nurse's Notes [facility] Name: Shaun Lopez Age: 33 yrs Sex: Female : 1990 Arrival Date: 04/09/2024 Time: 15:37 Bed 19 Private MD: Diagnosis: Hypertensive crisis, unspecified;Dependence on renal dialysis;Vomiting;Other ascites Presentation: 04/09 16:00 Chief complaint: Patient states: Body aches, vomiting and low grade fever onset cm10 Tuesday. Coronavirus screen: Client denies travel out of the [place] in the last 14 days. Ebola Screen: Patient denies travel to an Ebola-affected area in the 21 days before illness onset. No symptoms or risks identified at this time. Initial Sepsis Screen: Does the patient meet any 2 criteria? No. Patient's initial sepsis screen is negative. Does the patient have a suspected source of infection? No. Patient's initial sepsis screen is negative. Risk Assessment: Do you want to hurt yourself or someone else? Patient reports no desire to harm self or others. Onset of symptoms was April 09, 2024. 16:00 Method Of Arrival: Ambulatory cm10 16:00 Acuity: VERNA 3 cm10 Triage Assessment: 16:02 General: Appears in no apparent distress. uncomfortable, Behavior is calm, cooperative. cm10 Neuro: No deficits noted. Level of Consciousness is awake, alert, obeys commands, Oriented to person, place, time, situation, Appropriate for age. Respiratory: No deficits noted. Airway is patent Respiratory effort is even, unlabored, Respiratory pattern is regular, symmetrical. 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 - Infectious Disease History:: Denies. - Social history:: Smoking status: unknown. - Family history:: not pertinent. Screenin:41 [facility] ED Fall Risk Assessment (Adult) History of falling in the last 3 months, kc6 including since admission No falls in past 3 months (0 pts) Confusion or Disorientation No (0 pts) Intoxicated or Sedated No (0 pts) Impaired Gait No (0 pts) Mobility Assist Device Used No (0 pt) Altered Elimination No (0 pt) Score/Fall Risk Level 0 - 2 = Low Risk Oriented to surroundings. Abuse screen: Denies threats or abuse. Denies injuries from another. Nutritional screening: No deficits noted. Tuberculosis screening: No symptoms or risk factors identified. Assessment: 16:45 General: Appears in no apparent distress. comfortable, well groomed, well developed, kc6 Behavior is calm, cooperative, appropriate for age. Pain: Complains of pain in lumbar area, left low back and right low back Pain currently is 7 out of 10 on a pain scale. Neuro: Level of Consciousness is awake, alert, obeys commands, Oriented to person, place, time, situation, Appropriate for age. Cardiovascular: Heart tones S1 S2 present Capillary refill < 3 seconds Rhythm is sinus rhythm Dialysis shunt: in the left arm, with palpable thrill, with auscultated bruit, with no erythema, with no edema, no bleeding noted. Respiratory: Airway is patent Trachea midline Respiratory effort is even, unlabored, Respiratory pattern is regular, symmetrical. GI: Abdomen is round distended, Bowel sounds present X 4 quads. Abd is rigid X 4 quads. Reports intolerance of fluids, intolerance of food, nausea, Patient currently denies abdominal pain, diarrhea, vomiting. : No signs and/or symptoms were reported regarding the genitourinary system. Urine is clear. EENT: No signs and/or symptoms were reported regarding the EENT system. Derm: No signs and/or symptoms reported regarding the dermatologic system. Skin is intact, is healthy with good turgor, Skin is pink, warm \T\ dry. Musculoskeletal: No signs and/or symptoms reported regarding the musculoskeletal system. Circulation, motion, and sensation intact. Capillary refill < 3 seconds, Range of motion: intact in all extremities. 17:47 Reassessment: Patient appears in no apparent distress at this time. No changes from kc6 previously documented assessment. Patient and/or family updated on plan of care and expected duration. Pain level reassessed. Patient is alert, oriented x 3, equal unlabored respirations, skin warm/dry/pink. 18:23 Reassessment: Patient appears in no apparent distress at this time. No changes from kc6 previously documented assessment. Patient and/or family updated on plan of care and expected duration. Pain level reassessed. Patient is alert, oriented x 3, equal unlabored respirations, skin warm/dry/pink. Vital Signs: 16:00 BP 232 / 160; Pulse 85; Resp 15; Temp 98.5(O); Pulse Ox 95% on R/A; Weight 62.6 kg; cm10 Height 5 ft. 1 in. ; Pain 8/10; 16:32 BP 219 / 152; kc6 16:45 BP 216 / 152; kc6 17:21 BP 218 / 155; kc6 17:25 BP 206 / 144; kc6 17:30 BP 195 / 146; kc6 17:48 BP 174 / 134; kc6 18:01 BP 175 / 125; Pulse 80; Resp 18 S; Pulse Ox 98% on R/A; Pain 4/10; kc6 18:14 BP 171 / 120; Pulse 82; Resp 14 S; Pulse Ox 96% on R/A; kc6 18:19 BP 171 / 119; kc6 18:24 BP 166 / 115; Pulse 79; Resp 15 S; Pulse Ox 96% on R/A; kc6 18:54 BP 148 / 104; Pulse 88; Resp 16 S; Pulse Ox 98% on R/A; kc6 19:39 BP 172 / 121; Pulse 80; Resp 17; Temp 98.4(O); Pulse Ox 97% on R/A; Pain 0/10; rg5 20:19 BP 157 / 108; Pulse 83; Resp 17; Pulse Ox 96% on R/A; rg5 16:00 Body Mass Index 26.07 (62.60 kg, 154.94 cm) cm10 16:00 Pain Scale: Adult cm10 18:01 Pain Scale: Adult kc6 19:39 Pain Scale: Adult rg5 ED Course: 15:40 Patient arrived in ED. ra3 15:57 Javon Rodriguez MD is Attending Physician. trevor 16:01 Triage completed. cm10 16:02 Arm band placed on Patient placed in an exam room, on a stretcher. cm10 16:10 Antonietta Roe, JERALD is Primary Nurse. kc6 16:41 Patient has correct armband on for positive identification. Bed in low position. Call kc6 light in reach. Side rails up X 1. Pulse ox on. NIBP on. Door closed. Noise minimized. Lights dimmed. Warm blanket given. Pillow given. 16:41 Missed attempt(s): 22 gauge in right wrist. Inserted saline lock: 22 gauge in right kc6 forearm, using aseptic technique. Blood collected. Flushed with 10 mL NS. Patient maintains SpO2 saturation greater than 95% on room air. 17:08 Patient requests pain medication. kc6 17:52 CT Chest Abdomen Pelvis W/O Contrast In Process Unspecified. EDMS 18:10 XRAY Chest (1 view) In Process Unspecified. EDMS 18:24 Olga Moran MD is Hospitalizing Provider. [facility] 19:03 Report given to JERALD Salazar. kc6 20:30 Provided Education on: needs for admit. rg5 20:56 No provider procedures requiring assistance completed. Patient admitted, IV remains in rg5 place. Administered Medications: 16:41 Drug: NS 0.9% IV 1000 ml IV at 1 bolus Per protocol; 1000 mL bolus Route: IV; Rate: 1 kc6 bolus; Site: right forearm; 19:00 Follow up: IV Status: Completed infusion; IV Intake: 1000ml [facility] 16:41 Drug: Ondansetron IVP 4 mg IVP once; over 2 minutes Route: IVP; Site: right forearm; kc6 17:36 Follow up: Response: No adverse reaction kc6 17:34 Drug: HYDROmorphone IVP 1 mg IVP once Route: IVP; Site: right forearm; kc6 18:01 Follow up: Response: No adverse reaction; Pain is decreased; RASS: Alert and Calm (0) kc6 17:34 Drug: hydrALAZINE IVP 20 mg IVP once Route: IVP; Site: right forearm; kc6 18:01 Follow up: Response: No adverse reaction; Blood pressure is unchanged kc6 17:59 Drug: hydrALAZINE IVP 20 mg IVP once Route: IVP; Site: right forearm; kc6 18:07 Follow up: Response: No adverse reaction; Blood pressure is unchanged kc6 18:14 Drug: Labetalol PO 100 mg PO once Route: PO; kc6 18:41 Follow up: Response: No adverse reaction; Blood pressure is unchanged kc6 18:14 Drug: Labetalol IV 20 mg IV at per protocol once over 2 mins Route: IV; Rate: per kc6 protocol; Infused Over: 2 mins; Site: right forearm; 18:23 Follow up: Response: No adverse reaction; Blood pressure is unchanged; IV Status: kc6 Completed infusion; IV Intake: 4ml 18:23 Drug: Labetalol IV 20 mg IV at per protocol once over 2 mins Route: IV; Rate: per kc6 protocol; Infused Over: 2 mins; Site: right forearm; 19:00 Follow up: IV Status: Completed infusion; IV Intake: 5ml rg5 18:53 Drug: MethylPrednisoLONE IVP 125 mg IVP once Route: IVP; Site: right forearm; kc6 19:34 Follow up: Response: No adverse reaction rg5 18:53 Drug: Famotidine IVP 20 mg IVP once; dilute with 10 mL 0.9% NaCl; give over 2 minutes kc6 Route: IVP; Site: right forearm; 19:34 Follow up: Response: No adverse reaction rg5 18:54 Drug: diphenhydrAMINE IVP 25 mg IVP once Route: IVP; Site: right forearm; kc6 19:34 Follow up: Response: No adverse reaction rg5 Medication: 20:56 VIS not applicable for this client. rg5 Intake: 18:23 IV: 4ml; Total: 4ml. kc6 19:00 IV: 5ml; Total: 9ml. rg5 19:00 IV: 1000ml; Total: 1009ml. rg5 Outcome: 18:26 Decision to Hospitalize by Provider. trevor 20:55 Admitted to Med/surg accompanied by nurse, rg5 20:55 Condition: stable 20:55 Instructed on the need for admit, 20:56 Patient left the ED. rg5 Signatures: Dispatcher [employer] EDJavon Guerra MD MD cha Campbell, Kaitlyn RN RN kc6 Berenice Watters RN RN Brittany Garcia Rommel, RN RN rg5 Corrections: (The following items were deleted from the chart) 18:01 17:35 BP 206 / 144; kc6 kc6
--- NOTE | 2024-04-09 18:30 | RAD REPORT ---
EXAMINATION: ONE VIEW CHEST XR CLINICAL INDICATION: Female, 33 years old.COUGH TECHNIQUE: 1 View, AP supine, X-ray of the chest was performed. [id number]. COMPARISON: 03/29/2024 FINDINGS: Lungs and pleura: Clear lungs. No effusion. Heart and mediastinum: Cardiomegaly. Unremarkable mediastinal contours. Osseous structures: No acute abnormality. Tubes/lines: None Other: Surgical jennifer in the left upper arm. IMPRESSION: No acute intrathoracic abnormality. Cardiomegaly.
[2024-04-09] MEDS ORDERED: METHYLPREDNISOLONE 125 MG INJ ONE (18:42)
[2024-04-09] MEDS ORDERED: DIPHENHYDRAMINE 50 MG/ML VIAL ONE (18:42)
[2024-04-09] MEDS ORDERED: FAMOTIDINE 20 MG/2 ML VIAL IV ONE (18:43)
[2024-04-09 19:31] LABS: NT PRO-BNP > 175000 pg/mL (<125)
--- NOTE | 2024-04-09 19:48 | P.HP ---
Certification for Inpatient Patient admitted to: Observation With expected LOS: <2 Midnights Practitioner: I am a practitioner with admitting privileges, knowledge of patient current condition, hospital course, and medical plan of care. Services: Services provided to patient in accordance with Admission requirements found in Title 42 Section 412.3 of the Code of Federal Regulations Patient History Date of Service: 04/10/24 Reason for admission: elevated blood pressure History of Present Illness: 33-year-old female history of end-stage renal disease on dialysis presented to ER with complaints of not feeling well with lower back pain and vomiting. The patient also reports that in November she had shingles. Subsequently since then she has had issues with pruritus and neuropathic pain. On arrival in the emergency room patient was noted to have significantly elevated blood pressure. She denies missing doses of her oral antihypertensives. She does report taking Benadryl previously but has not taken any in the last 24 hours. In the emergency room her blood pressure was improved with medication. She denies any fevers, chills, cough. She denies any chest pain dizziness or headaches. She does do dialysis Tuesday and Saturdays. Request to admit patient for observation due to elevated BP Allergies sulfamethoxazole [From Bactrim] Allergy (Verified 10/27/23 00:24) Itching/Hives/Rash trimethoprim [From Bactrim] Allergy (Verified 10/27/23 00:24) Itching/Hives/Rash Home Medications: Bumetanide 1 mg PO BID 01/30/24 Apixaban [Eliquis *] 2.5 mg PO BID #60 tablet 02/28/24 Doxazosin [Cardura*] 4 mg PO BID #60 tab 03/06/24 Olmesartan Medoxomil 40 mg PO DAILY #30 tab 03/06/24 Sevelamer Carbonate [Renvela*] 800 mg PO TIDWM #0 03/06/24 atenoloL [Tenormin*] 50 mg PO BEDTIME tab 03/06/24 hydrOXYzine HCL [Atarax*] 25 mg PO Q6HP PRN #30 tab 03/06/24 Divalproex Sodium [Divalproex Sodium ER] 1 tab PO DAILY 04/10/24 Famotidine [Pepcid] 20 mg PO DAILY 04/10/24 Gabapentin [Neurontin] 100 mg PO DAILY 04/10/24 Hydrocodone Bit/Acetaminophen [Hydrocodon-Acetaminophn 10-325] 1 tab PO Q6HP PRN 04/10/24 Losartan Potassium [Cozaar] 50 mg PO BID 04/10/24 cloNIDine HCL [Clonidine HCl] 1 tab PO TID 04/10/24 clonazePAM [Klonopin*] 1 tab PO BID PRN 04/10/24 - Past Medical/Surgical History Diabetic: No -: HTN -: ESRD (Dr. Wills/ [facility]) -: Seizures (as a child) -: Hx Brain tumor -: Asthma -: DVT -: Csection x2 -: Brain Sx -: Kidney Transplant Nephrectomy/transplant was removed recently Psychosocial/ Personal History: Lives at home - Social History Alcohol use: No CD- Drugs: No Caffeine use: No Review of Systems 10-point ROS is otherwise unremarkable General: Malaise Integumentary: Rash, Lesions, Other Physical Examination - Physical Exam General: Alert, Oriented x3 HEENT: Atraumatic, Normocephalic Respiratory: Clear to auscultation bilaterally, Normal air movement Cardiovascular: Regular rate/rhythm, Normal S1 S2 Gastrointestinal: Soft and benign, Non-distended Musculoskeletal: No clubbing Integumentary: Rash(es), Skin lesion, Other Neurological: Normal speech - Studies Laboratory Data (last 24 hrs) 04/09/24 04/09/24 04/09/24 17:43 17:43 16:23 WBC Hgb Hct Plt Count PT 15.0 H INR 1.35 Sodium 135 L Cancelled Potassium 4.4 Cancelled BUN 28 H Cancelled Creatinine 7.35 H Cancelled Glucose 100 Cancelled Magnesium 2.1 Total Bilirubin 1.1 H Cancelled AST 13 L Cancelled ALT 17 Cancelled Alkaline Phosphatase 79 Cancelled 04/09/24 16:23 WBC 6.40 Hgb 11.3 L Hct 35.4 L Plt Count 192 PT INR Sodium Potassium BUN Creatinine Glucose Magnesium Total Bilirubin AST ALT Alkaline Phosphatase Assessment and Plan - Problems (Diagnosis) (1) ESRD (end stage renal disease) Current Visit: No Status: Acute (2) HTN (hypertension) Current Visit: No Status: Acute Qualifiers: (3) Rash Current Visit: Yes Status: Acute - Plan 33-year-old female with history of end-stage renal disease, hypertension presented to the ER with elevated blood pressure. She reports 5-month history of pruritus of skin pain after having shingles #hypertensive urgency #elevated BNP #ESRD, TTS HD #history of shingles #pruritis Plan: 1. admit for observation 2. restart home medications 3. add PRN hydralizine and labetalol 4. check ECHO 5. nephrology contacted from ER 6. trial calamine lotion OTC if not availble, add hydroxyzine Discharge Plan: Home - Advance Directives Does patient have a Living Will: No Does patient have a Durable POA for Healthcare: No
[2024-04-09] MEDS ORDERED: ONDANSETRON 4 MG/2 ML VIAL IV PRN (19:51)
[2024-04-09] MEDS ORDERED: ACETAMINOPHEN 500 MG TAB PO PRN (19:51)
[2024-04-09] MEDS: hydrOXYzine HCL 25 MG TAB PO PRN (21:30)
[2024-04-09] MEDS: LABETALOL 20 MG/4ML SYRINGE IV PRN (21:30)
[2024-04-09 21:49] VITALS: BMI 25.4
[2024-04-09] MEDS ORDERED: MANNITOL 25% 12.5 GM/50 ML VIAL IV PRN (21:52)
[2024-04-09] MEDS ORDERED: NA CHLORIDE 0.9% 1,000 ML IV PRN (21:52)
[2024-04-09] MEDS ORDERED: ALBUMIN HUMAN 25% 50 ML IV SCH (22:00)
[2024-04-09] MEDS ORDERED: EPOETIN ALFA 10,000 UNIT/ML VIAL IV SCH (22:00)
[2024-04-10] MEDS: HYDRALAZINE HCL 20 MG/ML VIAL IV PRN (00:23)
[2024-04-10] MEDS: cloNIDine HCL 0.1 MG TAB PO SCH (03:30)
[2024-04-10] MEDS: atenoloL 25 MG TAB PO SCH (03:30)
[2024-04-10] MEDS: LOSARTAN POTASSIUM 50 MG TABLET PO SCH ×2 (03:30→08:39)
[2024-04-10] MEDS ORDERED: HYDROCODONE/APAP 10/325 TAB PO PRN (06:10)
[2024-04-10] MEDS ORDERED: clonazePAM 0.5 MG TAB PO PRN (06:10)
[2024-04-10] MEDS ORDERED: hydrOXYzine HCL 25 MG TAB PO PRN (06:10)
--- NOTE | 2024-04-10 08:00 | P.CNS ---
Date of Consult: 04/10/24 Reason for Consult: ESRD Requesting Physician: María Elena Rothman Chief Complaint: elevated blood pressure History of Present Illness: 33-year-old female history of end-stage renal disease on dialysis presented to ER with complaints of not feeling well with lower back pain and vomiting. The patient also reports that in November she had shingles. Subsequently since then she has had issues with pruritus and neuropathic pain. On arrival in the emergency room patient was noted to have significantly elevated blood pressure. She denies missing doses of her oral antihypertensives. She does report taking Benadryl previously but has not taken any in the last 24 hours. In the emergency room her blood pressure was improved with medication. She denies any fevers, chills, cough. She denies any chest pain dizziness or headaches. She does do dialysis Tuesday and Saturdays. Request to admit patient for observation due to elevated BP [id number] 17:12 This 33 yrs old Female presents to ER via Ambulatory with complaints of Low trevor Back Pain, Vomiting. 17:12 The patient presents with pain that is acute, with no known mechanism of injury. The trevor symptoms are located in the low back. The pain does not radiate. The problem was sustained from unknown cause. Onset: The symptoms/episode began/occurred 3 day(s) ago. Modifying factors: The patient symptoms are alleviated by remaining still, the patient symptoms are aggravated by any movement. Severity of symptoms: At their worst the symptoms were moderate, in the emergency department the symptoms are unchanged. The patient has experienced similar episodes in the past, multiple times. She has missed multiple HD treatments lately. Allergies sulfamethoxazole [From Bactrim] Allergy (Verified 10/27/23 00:24) Itching/Hives/Rash trimethoprim [From Bactrim] Allergy (Verified 10/27/23 00:24) Itching/Hives/Rash Home medications list reviewed: Yes Home Medications: Bumetanide 1 mg PO BID 01/30/24 Apixaban [Eliquis *] 2.5 mg PO BID #60 tablet 02/28/24 Doxazosin [Cardura*] 4 mg PO BID #60 tab 03/06/24 Olmesartan Medoxomil 40 mg PO DAILY #30 tab 03/06/24 Sevelamer Carbonate [Renvela*] 800 mg PO TIDWM #0 03/06/24 atenoloL [Tenormin*] 50 mg PO BEDTIME tab 03/06/24 Divalproex Sodium [Divalproex Sodium ER] 1 tab PO DAILY 04/10/24 Famotidine [Pepcid*] 20 mg PO DAILY 04/10/24 Gabapentin [Neurontin*] 100 mg PO DAILY 04/10/24 Hydrocodone Bit/Acetaminophen [Hydrocodon-Acetaminophn 10-325] 1 tab PO Q6HP PRN 04/10/24 Losartan Potassium [Cozaar*] 50 mg PO BID 04/10/24 cloNIDine HCL [Clonidine HCl] 1 tab PO TID 04/10/24 clonazePAM [Klonopin*] 1 tab PO BID PRN 04/10/24 hydrOXYzine HCL [Atarax] 50 mg PO Q6H PRN #30 tab 04/10/24 - Past Medical/Surgical History Diabetic: No -: HTN -: ESRD (Dr. Wills/ [facility]) -: Seizures (as a child) -: Hx Brain tumor -: Asthma -: DVT -: Csection x2 -: Brain Sx -: Kidney Transplant Nephrectomy/transplant was removed recently Psychosocial/ Personal History: Lives at home - Social History Smoking Status: Unknown if ever smoked Alcohol use: No CD- Drugs: No Caffeine use: No Place of Residence: Home Review of Systems 10-point ROS is otherwise unremarkable General: Malaise Neurological: Weakness Physical Examination Temp Pulse Resp BP Pulse Ox 97.4 F 67 18 198/117 H 97 04/10/24 05:30 04/10/24 05:33 04/10/24 05:30 04/10/24 05:33 04/10/24 05:30 General: In no apparent distress, Oriented x3, Cooperative HEENT: Atraumatic Neck: Supple Respiratory: Normal air movement Cardiovascular: No edema, Regular rate/rhythm Gastrointestinal: Soft and benign, Non-distended Musculoskeletal: No clubbing, No contractures Integumentary: No rashes, No cyanosis Neurological: Normal speech, Abnormal affect Laboratory Data (last 24 hrs) 04/09/24 04/09/24 04/09/24 17:43 17:43 16:23 WBC Hgb Hct Plt Count PT 15.0 H INR 1.35 Sodium 135 L Cancelled Potassium 4.4 Cancelled BUN 28 H Cancelled Creatinine 7.35 H Cancelled Glucose 100 Cancelled Magnesium 2.1 Total Bilirubin 1.1 H Cancelled AST 13 L Cancelled ALT 17 Cancelled Alkaline Phosphatase 79 Cancelled 04/09/24 16:23 WBC 6.40 Hgb 11.3 L Hct 35.4 L Plt Count 192 PT INR Sodium Potassium BUN Creatinine Glucose Magnesium Total Bilirubin AST ALT Alkaline Phosphatase Imagings Data: [id number] EXAM: CT CHEST, ABDOMEN AND PELVIS WITHOUT CONTRAST CLINICAL INDICATION: Female, 33 years old Cough;Pain TECHNIQUE: CT chest, abdomen and pelvis was performed, without IV contrast, as per department protocol. Axial, sagittal and coronal reconstructions were obtained. One or more of the following dose reduction techniques were used: Automated exposure control, adjustment of the mA and/or kV according to the patient size, and/or iterative reconstruction. Unless otherwise specified, incidental findings do not require dedicated imaging follow-up. [id number]. COMPARISON: No prior exam. FINDINGS: The lack of intravenous contrast limits the sensitivity of this exam for evaluation of solid visceral organs, vascular structures, and retroperitoneum. Chest: LOWER NECK/CHEST WALL: Visualized thyroid gland and soft tissues are normal. LUNGS AND AIRWAYS: Airways are clear. No evidence of airspace or interstitial process. No nodules. PLEURA: Small bilateral effusions. MEDIASTINUM AND LYMPH NODES: No mediastinal mass or fluid collection. Normal size mediastinal, hilar, and axillary lymph nodes. THORACIC AORTA: Normal caliber and configuration. PULMONARY ARTERIES: Normal caliber. HEART: Cardiomegaly. Small pericardial effusion. Abdomen/Pelvis LIVER: Normal in size and contour. No focal lesion. GALLBLADDER/BILE DUCTS: No biliary ductal dilatation. PANCREAS: No mass, ductal dilation, or hillary-pancreatic fluid. SPLEEN: Normal size. No focal lesion. ADRENALS: Normal; no mass. KIDNEYS AND URETERS: Atrophic kidneys. GASTROINTESTINAL TRACT: Stomach is non-dilated. Small bowel has normal course and caliber. No colonic wall thickening or pericolonic inflammatory changes. PERITONEUM: Moderate ascites. Body wall edema. LYMPH NODES: No lymphadenopathy. ABDOMINAL AORTA AND OTHER VESSELS: Normal caliber aorta and IVC. URINARY BLADDER: Normal contour. REPRODUCTIVE ORGANS: No pathologic process. MUSCULOSKELETAL: No acute or suspicious osseous abnormality. ADDITIONAL FINDINGS: None IMPRESSION: Anasarca including moderate ascites, body wall edema, small pleural effusions. No source of infection is identified within the limitations of noncontrast CT. [id number] EXAMINATION: ONE VIEW CHEST XR CLINICAL INDICATION: Female, 33 years old.COUGH TECHNIQUE: 1 View, AP supine, X-ray of the chest was performed. [id number]. COMPARISON: 03/29/2024 FINDINGS: Lungs and pleura: Clear lungs. No effusion. Heart and mediastinum: Cardiomegaly. Unremarkable mediastinal contours. Osseous structures: No acute abnormality. Tubes/lines: None Other: Surgical jennifer in the left upper arm. IMPRESSION: No acute intrathoracic abnormality. Cardiomegaly. Conclusions/Impression: ESRD on HD Proteinuria Hyponatremia -Acute HD today HTN Urgency Malignant HTN with CKD -Continue Atenolol and Doxazosin -Start Nifedipine and Losartan -Continue Clonidine Anemia in CKD -Monitor H&H -Retacrit prn CKD MBD -Continue [facility] Hospitalist and ER notes reveiwed Thank you kindly for the consultation
--- NOTE | 2024-04-10 08:28 | P.PN ---
Date of Service: 04/10/24 Subjective Patient is doing well with no new complaints Physical Examination - Vitals reviewed - Physical Exam General: Alert, Oriented x3 HEENT: WNL Respiratory: Clear to auscultation bilaterally, Normal air movement Cardiovascular: Regular rate/rhythm, Normal S1 S2 Gastrointestinal: Soft and benign, Non-distended Musculoskeletal: No clubbing Integumentary: Rash(es), Skin lesion, Other Neurological: No focal deficits Assessment and Plan - Problems (Diagnosis) (1) ESRD (end stage renal disease) Current Visit: No Status: Acute (2) HTN (hypertension) Current Visit: No Status: Acute Qualifiers: (3) Rash Current Visit: Yes Status: Acute - Plan 33-year-old female with history of end-stage renal disease, hypertension presented to the ER with elevated blood pressure. She reports 5-month history of pruritus of skin pain after having shingles #hypertensive urgency #elevated BNP #ESRD, TTS HD #history of shingles #pruritis Plan: 1. admit for observation 2. restart home medications 3. add PRN hydralizine and labetalol 4. check ECHO 5. nephrology contacted from ER 6. trial calamine lotion OTC if not availble, add hydroxyzine Discharge Plan: Home - Advance Directives Does patient have a Living Will: No Does patient have a Durable POA for Healthcare: No
[2024-04-10] MEDS: DIVALPROEX ER 250 MG TAB PO SCH (08:38)
[2024-04-10] MEDS: NIFEDIPINE XL 90 MG TABLET PO SCH (08:38)
[2024-04-10] MEDS: GABAPENTIN 100 MG CAP PO SCH (08:38)
[2024-04-10] MEDS: SEVELAMER CARBONATE 800 MG TABLET PO SCH (08:39)
[2024-04-10] MEDS: BUMETANIDE 1 MG TABLET PO SCH (08:39)
[2024-04-10] MEDS: APIXABAN 2.5 MG TABLET PO SCH (08:39)
[2024-04-10] MEDS: DOXAZOSIN 4 MG TAB PO SCH (08:39)
[2024-04-10] MEDS ORDERED: cloNIDine HCL 0.1 MG TAB PO SCH (09:00)
[2024-04-10 12:07] VITALS: O2SAT 95
--- NOTE | 2024-04-10 12:27 | EKG ---
Test Date: 2024-04-09 Test Time: 17:24:25 Client Hr Manager: KATELYN MEASUREMENT RESULTS: Intervals: Rate: 77 GA: 152 QRSD: 94 QT: 384 QTc: 434 [place]: P: 60 GA: 152 QRS: -65 T: 9 INTERPRETIVE STATEMENTS: Normal sinus rhythm Left anterior fascicular block Anterior infarct, age undetermined Abnormal ECG Compared to ECG 03/12/2024 12:19:19 No significant changes Electronically Signed On 04-10-24 12:25:44 CDT by Alirio Dickerson
--- NOTE | 2024-04-10 12:30 | ECHO ---
HEIGHT: 5 ft 1 in WEIGHT: 135 lb 0 oz DATE OF STUDY: 04/10/[address]: Olga Moran MD 2-DIMENSIONAL: YES M.MODE: YES DOPPLER: YES COLOR FLOW: YES TDS: PORTABLE: YES DEFINITY: BUBBLE STUDY: DIAGNOSIS: ELEVATED BNP CARDIAC HISTORY: CATHERIZATION: NO SURGERY: NO PROSTHETIC VALVE: NO PACEMAKER: NO MEASUREMENTS (cm) DIASTOLIC (NORMALS) SYSTOLIC (NORMALS) IVSd 1.5 (0.6-1.2) LA Diam 4.8 (1.9-4.0) LVEF 65% LVIDd 4.3 (3.5-5.7) LVIDs 3.2 (2.0-3.5) %FS LVPWd 1.3 (0.6-1.2) Ao Diam 2.5 (2.0-3.7) 2 DIMENSIONAL ASSESSMENT: RIGHT ATRIUM: NORMAL LEFT ATRIUM: NORMAL RIGHT VENTRICLE: NORMAL LEFT VENTRICLE: MODERATE LEFT VENTRICULAR HYPERTROPHY TRICUSPID VALVE: MODERATE TRICUSPID REGURGITATION MITRAL VALVE: NORMAL PULMONIC VALVE: NORMAL AORTIC VALVE: NORMAL PERICARDIAL EFFUSION: NONE AORTIC ROOT: NORMAL LEFT VENTRICULAR WALL MOTION: NORMAL DOPPLER/COLOR FLOW: NORMAL COMMENTS: 1. NORMAL LEFT VENTRICULAR SYSTOLIC FUNCTION, EJECTION FRACTION 65%, NORMAL WALL MOTION 2. NORMAL DIASTOLIC FUNCTION 3. MODERATE TRICUSPID REGURGITATION 4. ELEVATED FILLING PRESSURE (RIGHT ATRIAL PRESSURE 15-20 mmHg) 5. MODERATE PULMONARY HYPERTENSION (RIGHT VENTRICULAR SYSTOLIC PRESSURE 45-50 mmHg) TECHNOLOGIST: MARY HAN
[2024-04-10 15:55] LABS: Hepatitis B surface AG Interp. Nonreactive (Nonreactive)
[2024-04-10 15:56] LABS: HBsAG Nonreactive Report Report
[2024-04-10 17:46] VITALS: BP 165/90; TEMP 97.8
[2024-04-10] MEDS: NIFEDIPINE XL 60 MG TABLET PO ONE (18:04)
[2024-04-10] MEDS ORDERED: atenoloL 50 MG TAB PO SCH (21:00)
== END 2024-04-10 18:49 | disposition home or self-care (01) ==
LOC: ER 15:37 → ERHOLD 19:51 → 4TH 20:24
PROVIDERS: ADMIT Internal Medicine; ATTEND Hospitalist
DX: I16.0 Hypertensive urgency (principal); N18.6 End stage renal disease; L29.9 Pruritus, unspecified; M54.50 Low back pain, unspecified; R11.10 Vomiting, unspecified; M79.2 Neuralgia and neuritis, unspecified; E87.1 Hypo-osmolality and hyponatremia; R80.9 Proteinuria, unspecified; D63.1 Anemia in chronic kidney disease; B02.9 Zoster without complications; Z88.1 Allergy status to other antibiotic agents; Z99.2 Dependence on renal dialysis
CPT/HCPCS: 96365; 96361; 93005; 93306; 85025; 81001; 36415; 83735; 81025; 85610; 82248; 84484; 80053; 83880; 87340; 71250; 74176; 71045; 90935; 96375; 99285; J0360 ×4; J1200; J1170; J2919; J2405; J7030; G0378 ×3

== ENCOUNTER 2024-04-15 20:06 | Inpatient (IN) | payer OTHER ==
--- NOTE | 2024-04-15 21:24 | RAD REPORT ---
Procedure: Chest Single View HISTORY: Congestion COMPARISON: April 09, 2024 FINDINGS: The lungs appear clear of acute infiltrate. No significant pleural effusion noted. The heart is moderately enlarged IMPRESSION: No acute abnormality is displayed.
--- NOTE | 2024-04-15 21:35 | RAD REPORT ---
EXAMINATION: US bilateral LOWER EXTREMITY VENOUS DOPPLER CLINICAL INDICATION: Leg pain TECHNIQUE: Sonographic evaluation of the veins of the lower extremity bilaterally formed.Grayscale, c olor and spectral analysis performed on all vessels COMPARISON: March 2024 FINDINGS: The common femoral, superficial femoral, greater saphenous, popliteal and posterior tibial veins bila terally are compressible and demonstrate augmentation. Doppler demonstrates good flow. IMPRESSION: No evidence of deep venous thrombosis involving either lower extremity
[2024-04-15] MEDS ORDERED: HYDROMORPHONE HCL 0.5 MG/0.5 ML INJ ONE (22:07)
[2024-04-15] MEDS ORDERED: ONDANSETRON 4 MG/2 ML VIAL ONE (22:07)
[2024-04-15] MEDS ORDERED: HYDRALAZINE HCL 20 MG/ML VIAL ONE (22:08)
[2024-04-15] MEDS ORDERED: HYDRALAZINE HCL 25 MG TABLET ONE (22:08)
[2024-04-15 22:55] LABS: PT Prothrombin Time 13.9 SECONDS (9.4-12.5); Protime INR 1.25
[2024-04-15 22:56] LABS: Absolute Basophils 0.1 K/uL (0-0.5); Absolute Eosinophils 0.5 K/uL (0-0.5); Absolute Lymphocytes (CBC) 0.7 K/uL (0.7-4.9); Absolute Monocytes 0.6 K/uL (0.1-1.3); Absolute Neutrophil 4.9 K/uL (1.8-8.0); Basophils % 0.8 % (0-1.3); Hematocrit 31.4 % (36.0-45.0); Hemoglobin 10.3 g/dL (12.0-15.0); Lymphocytes % 9.9 % (15.3-44.8); MCH 28.7 pg (27.0-35.0); MCHC 32.7 g/dL (32.0-36.0); MCV 87.7 fL (80-100); Monocytes % 9.5 % (3.3-12.3); Neutrophils % 72.8 % (41.7-73.7); Platelets 124 thou/uL (152-406); RBC Red Blood Cell Count 3.58 M/uL (3.86-4.86); Red Cell Distribution Width 18.6 % (12.1-15.2)
[2024-04-15 23:25] LABS: ALT/SGPT 15 U/L (13-56); AST/SGOT 13 U/L (15-37); Albumin 3.4 g/dL (3.4-5.0); Alkaline Phosphatase 86 U/L (45-117); Anion Gap 11.5 mEq/L (5.0-15.0); BUN Blood Urea Nitrogen 25 mg/dL (7-18); Bicarbonate 24 mEq/L (21-32); Bilirubin Direct 0.7 mg/dL (0-0.2); Bilirubin Indirect, Calculated 0.5 mg/dL (0.2-0.8); Bilirubin Total 1.2 mg/dL (0.2-1.0); Globulin 3.5 g/dL (2.3-3.5); Glomerular Filtration Rate 10 ml/min (=/>90); Glucose Level 99 mg/dL (74-106); Lipase 20 U/L (13-75); Potassium 4.5 mEq/L (3.5-5.1); Protein, Total 6.9 g/dL (6.4-8.2); Sodium Level 134 mEq/L (136-145); Troponin High Sensitivity 17.1 pg/mL (<58.9)
[2024-04-15 23:26] LABS: NT PRO-BNP > 175000 pg/mL (<125)
--- NOTE | 2024-04-15 23:31 | EDPHYS ---
Physician Documentation [facility] Name: Shaun Lopez Age: 33 yrs Sex: Female : 1990 Arrival Date: 04/15/2024 Time: 20:06 Bed 18 Private MD: Javon Alejandro HPI: 04/15 21:45 This 33 yrs old Female presents to ER via Ambulatory with complaints of Leg trevor Swelling - BL, stomach pain,bloating. 21:45 The patient presents with decreased range of motion, pain, that is acute. The trevor complaints affect the right leg and left leg. Context: The problem was sustained at home, resulted from an unknown cause. Modifying factors: The symptoms are alleviated by nothing. the symptoms are aggravated by weight bearing. weight gain , htn , despite t,th, sat. 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: 20:20 LMP 04/08/2024, unknown rg5 Historical: - Allergies: 20:40 Adhesives; rg5 20:40 AVOCADO (LAURUS PERSEA); rg5 20:40 Bactrim; rg5 20:40 Latex; rg5 - Home Meds: 20:40 calcitriol 0.25 mcg Oral cap 1 cap daily [Active]; carvedilol 25 mg Oral tablet 2 times rg5 per day [Active]; clonidine HCl 0.1 mg Oral tab 1 tab every 6 hours [Active]; dicyclomine 20 mg Oral tablet [Active]; Entresto 49-51 mg Oral tablet 2 times per day [Active]; Fioricet 50-300-40 mg Oral capsule [Active]; furosemide 40 mg Oral tablet daily [Active]; hydralazine 25 mg Oral tablet 3 times per day [Active]; losartan potassium 50 mg 1 tab daily [Active]; nifedipine 60 mg Oral TbER 1 tab twice daily [Active]; ondansetron HCl 4 mg Oral tablet [Active]; - PMHx: 20:40 brain tumor-removed; Dialysis; End stage renal disease; Hypertension; Migraines; rg5 Seizures; - PSHx: 20:40 brain SX x 2; section; donor kidney removed; Fistula- L arm; kidney biopsy; rg5 kidney transplant; - Immunization history:: Adult Immunizations up to date. - Infectious Disease History:: Denies. - Social history:: Smoking status: unknown. - Family history:: not pertinent. ROS: 21:45 Constitutional: Negative for fever, chills, and weight loss, Eyes: Negative for injury, trevor pain, redness, and discharge, ENT: Negative for injury, pain, and discharge, Neck: Negative for injury, pain, and swelling, Cardiovascular: Negative for chest pain, palpitations, and edema, Respiratory: Negative for shortness of breath, cough, wheezing, and pleuritic chest pain, Abdomen/GI: Negative for abdominal pain, nausea, vomiting, diarrhea, and constipation, Back: Negative for injury and pain, : Negative for injury, bleeding, discharge, and swelling, Skin: Negative for injury, rash, and discoloration, Neuro: Negative for headache, weakness, numbness, tingling, and seizure, Psych: Negative for depression, anxiety, suicide ideation, homicidal ideation, and hallucinations, Allergy/Immunology: Negative for hives, rash, and allergies, Endocrine: Negative for neck swelling, polydipsia, polyuria, polyphagia, and marked weight changes, Hematologic/Lymphatic: Negative for swollen nodes, abnormal bleeding, and unusual bruising, 21:45 MS/extremity: Positive for decreased range of motion, swelling, tenderness, of the right leg and left leg, Exam: 21:51 Constitutional: This is a well developed, well nourished patient who is awake, alert, trevor and in no acute distress. Head/Face: Normocephalic, atraumatic. Eyes: Pupils equal round and reactive to light, extra-ocular motions intact. Lids and lashes normal. Conjunctiva and sclera are non-icteric and not injected. Cornea within normal limits. Periorbital areas with no swelling, redness, or edema. ENT: Nares patent. No nasal discharge, no septal abnormalities noted. Tympanic membranes are normal and external auditory canals are clear. Oropharynx with no redness, swelling, or masses, exudates, or evidence of obstruction, uvula midline. Mucous membranes moist. Neck: Trachea midline, no thyromegaly or masses palpated, and no cervical lymphadenopathy. Supple, full range of motion without nuchal rigidity, or vertebral point tenderness. No Meningismus. Chest/axilla: Normal chest wall appearance and motion. Nontender with no deformity. No lesions are appreciated. Cardiovascular: Regular rate and rhythm with a normal S1 and S2. No gallops, murmurs, or rubs. Normal PMI, no JVD. No pulse deficits. Respiratory: Lungs have equal breath sounds bilaterally, clear to auscultation and percussion. No rales, rhonchi or wheezes noted. No increased work of breathing, no retractions or nasal flaring. Back: No spinal tenderness. No costovertebral tenderness. Full range of motion. Skin: Warm, dry with normal turgor. Normal color with no rashes, no lesions, and no evidence of cellulitis. Neuro: Awake and alert, GCS 15, oriented to person, place, time, and situation. Cranial nerves II-XII grossly intact. Motor strength 5/5 in all extremities. Sensory grossly intact. Cerebellar exam normal. Normal gait. Psych: Awake, alert, with orientation to person, place and time. Behavior, mood, and affect are within normal limits. 21:51 Cardiovascular: Rate: normal, actual rate is 84 bpm, Rhythm: regular, Pulses: no pulse deficits are appreciated, Heart sounds: normal, Edema: is not appreciated, JVD: is not appreciated, 21:51 ECG was reviewed by the Attending Physician. 21:51 Abdomen/GI: Inspection: abdomen appears normal, Bowel sounds: normal, Palpation: mild abdominal tenderness, in all quadrants, Liver: no appreciated palpable abnormalities, Hernia: not appreciated, Vital Signs: 20:20 BP 182 / 123; Pulse 89; Resp 18; Temp 98.2(O); Pain 7/10; rg5 20:21 BP 182 / 123; Pulse 89; Resp 18; Temp 98.2(O); Pulse Ox 98% on R/A; Weight 63.8 kg; rg5 Height 5 ft. 1 in. ; Pain 7/10; 21:00 BP 164 / 77; Pulse 84; Resp 17; Pulse Ox 100% on R/A; rg5 22:40 BP 152 / 109; Pulse 85; Resp 16; Pulse Ox 100% on R/A; rg5 23:16 BP 175 / 124; Pulse 88; Resp 17; Pulse Ox 100% on R/A; rg5 04/16 00:10 BP 135 / 91; Pulse 86; Resp 18; Temp 98; Pulse Ox 99% on R/A; Pain 6/10; rg5 04/15 20:21 Body Mass Index 26.58 (63.80 kg, 154.94 cm) rg5 04/15 20:20 Pain Scale: Adult rg5 20:21 Pain Scale: Adult rg5 04/16 00:10 Pain Scale: Adult rg5 MDM: 04/15 20:31 Patient medically screened. trevor 21:48 Differential diagnosis: bowel obstruction. Differential Diagnosis altered mental trevor status, sepsis, flu. Data reviewed: vital signs, nurses notes, EMS record, lab test result(s), EKG, radiologic studies, CT scan, plain films. Consideration of Admission/Observation Patient was admitted/placed on observation. Escalation of care including admission/observation considered. I considered the following discharge prescriptions or medication management in the emergency department Medications were administered in the Emergency Department. See MAR. Independent interpretation of the following test(s) in the Emergency Department EKG: See my EKG interpretation above. Test considered but Not performed: Ultrasound no abd usg. Historians other than the Patient: pt well informed. Care significantly affected by the following chronic conditions: Diabetes, Hypertension, Chronic Kidney Disease, esrd on hd. 04/15 20:41 Order name: Basic Metabolic Panel; Complete Time: 00:20 trevor 04/15 20:41 Order name: CBC with Diff; Complete Time: 23:05 trveor 04/15 20:41 Order name: LFT's; Complete Time: 00:20 trevor 04/15 20:41 Order name: Magnesium; Complete Time: 00:20 trevor 04/15 20:41 Order name: NT PRO-BNP; Complete Time: 00:20 trevor 04/15 20:41 Order name: PT-INR; Complete Time: 23:05 trevor 04/15 20:41 Order name: Troponin HS; Complete Time: 00:20 trevor 04/15 20:41 Order name: Lipase; Complete Time: 00:20 trevor 04/15 20:41 Order name: AMMONIA; Complete Time: 23:05 trevor 04/15 23:40 Order name: Magnesium EDMS 04/15 23:40 Order name: Phosphorus EDMS 04/15 23:40 Order name: Urinalysis w/ reflexes EDMS 04/15 23:40 Order name: Basic Metabolic Panel EDMS 04/15 23:40 Order name: Basic Metabolic Panel EDMS 04/15 23:40 Order name: CBC with Automated Diff EDMS 04/15 23:40 Order name: CBC with Automated Diff EDMS 04/15 20:41 Order name: XRAY Chest (1 view); Complete Time: 21:43 [facility] 04/15 20:41 Order name: US Extremity Venous W Compression Wei; Complete Time: 21:43 [facility] 04/15 23:40 Order name: CONS Physician Consult EDUT 04/15 20:41 Order name: Cardiac monitoring; Complete Time: 20:49 [facility] 04/15 20:41 Order name: EKG - Nurse/Tech; Complete Time: 21:56 [facility] 04/15 20:41 Order name: IV Saline Lock; Complete Time: 22:49 [facility] 04/15 20:41 Order name: Labs collected and sent; Complete Time: 22:49 [facility] 04/15 20:41 Order name: O2 Per Protocol; Complete Time: 20:49 [facility] 04/15 20:41 Order name: O2 Sat Monitoring; Complete Time: 20:49 [facility] EC:51 Rate is 84 beats/min. Rhythm is regular. QRS [place] is Normal. LA interval is normal. QRS trevor interval is normal. QT interval is normal. No Q waves. No ST changes noted. Clinical impression: NSR w/ Non-specific ST/T Changes and No evidence of ischemia. Administered Medications: 22:00 Drug: HydrALAZINE PO 50 mg PO once Route: PO; rg5 23:00 Follow up: Response: No adverse reaction rg5 22:45 Drug: HYDROmorphone IVP 0.5 mg IVP once Route: IVP; Site: right forearm; rg5 23:00 Follow up: Response: No adverse reaction; Pain is decreased rg5 22:45 Drug: Ondansetron IVP 4 mg IVP once; over 2 minutes Route: IVP; Site: right forearm; rg5 23:00 Follow up: Response: No adverse reaction rg5 22:49 Drug: hydrALAZINE IVP 20 mg IVP once Route: IVP; Site: right forearm; rg5 23:00 Follow up: Response: No adverse reaction rg5 Disposition Summary: 04/15/24 23:31 Hospitalization Ordered Notes: Hospitalization Status: Inpatient Admission trevor Provider: Prince trevor Urias Location: Telemetry/MedSurg (Inpatient) trevor Condition: Fair trevor Problem: new trevor Symptoms: have improved trevor Bed/Room Type: Standard trevor Room Assignment: 409(04/15/24 23:46) af3 Diagnosis - Generalized edema trevor - Dependence on renal dialysis trevor - Essential (primary) hypertension trevor - Abdominal pain, Generalized trevor Forms: - Medication Reconciliation Form trevor - SBAR form trevor - Leadership Thank You Letter trevor Signatures: Dispatcher [employer] Javon Pettit MD MD cha Gallardo, Rommel, RN RN rg5 Victorina Valadez af3 Corrections: (The following items were deleted from the chart) 20:42 20:42 BASIC METABOLIC PANEL+C.LAB.BRZ ordered. EDMS EDMS 20:42 20:42 CBC+H.LAB.BRZ ordered. EDMS EDMS 20:42 20:42 HEPATIC FUNCTION+C.LAB.BRZ ordered. EDMS EDMS 20:42 20:42 MAGNESIUM+C.LAB.BRZ ordered. EDMS EDMS 20:42 20:42 PROBNP+C.LAB.BRZ ordered. EDMS EDMS 20:42 20:42 PROTIME (+INR)+COAG.LAB.BRZ ordered. EDMS EDMS 20:42 20:42 Troponin High Sensitivity+C.LAB.BRZ ordered. EDMS EDMS 20:42 20:42 LIPASE+C.LAB.BRZ ordered. EDMS EDMS 20:42 20:42 AMMONIA+C.LAB.BRZ ordered. EDMS EDMS 20:42 20:42 Chest Single View+RAD.RAD.BRZ ordered. EDMS EDMS 20:42 20:42 Extrem Venous W Compression Wei+US.RAD.BRZ ordered. EDMS EDMS 23:46 23:31 trevor af3
--- NOTE | 2024-04-15 23:31 | ER ---
Nurse's Notes [facility] Name: Shaun Lopez Age: 33 yrs Sex: Female : 1990 Arrival Date: 04/15/2024 Time: 20:06 Bed 18 Private MD: Diagnosis: Generalized edema;Dependence on renal dialysis;Essential (primary) hypertension;Abdominal pain, Generalized Presentation: 04/15 20:21 Chief complaint: Patient states: my lower legs is swelling \T\ feels my stomach is bigger rg5 than usual. HD treatment yesterday and they pulled around 3L. 20:21 Coronavirus screen: Client denies travel out of the [place] in the last 14 days. Ebola rg5 Screen: Patient negative for fever greater than or equal to 101.5 degrees Fahrenheit, and additional compatible Ebola Virus Disease symptoms. Initial Sepsis Screen: Does the patient meet any 2 criteria? No. Patient's initial sepsis screen is negative. Does the patient have a suspected source of infection? No. Patient's initial sepsis screen is negative. Risk Assessment: Do you want to hurt yourself or someone else? Patient reports no desire to harm self or others. Onset of symptoms was April 15, 2024. 20:21 Method Of Arrival: Ambulatory rg5 20:21 Acuity: VERNA 3 rg5 Triage Assessment: 20:40 General: Appears in no apparent distress. Behavior is calm, cooperative, appropriate rg5 for age. Pain: Complains of pain in all over the body Pain currently is 7 out of 10 on a pain scale. Quality of pain is described as aching. EENT: No deficits noted. Neuro: Level of Consciousness is awake, alert, obeys commands, Oriented to person, place, time, situation. Cardiovascular: Patient's skin is warm and dry. Rhythm is sinus rhythm. Respiratory: Airway is patent Trachea deviated to right Respiratory effort is even, unlabored, Respiratory pattern is regular, symmetrical. GI: Abdomen is round Reports bloating. : No signs and/or symptoms were reported regarding the genitourinary system. Derm: Skin is intact, Skin is dry, Skin is normal. Musculoskeletal: Circulation, motion, and sensation intact. Range of motion: intact in all extremities. 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: 20:20 LMP 04/08/2024, unknown rg5 Historical: - Allergies: 20:40 Adhesives; rg5 20:40 AVOCADO (LAURUS PERSEA); rg5 20:40 Bactrim; rg5 20:40 Latex; rg5 - Home Meds: 20:40 calcitriol 0.25 mcg Oral cap 1 cap daily [Active]; carvedilol 25 mg Oral tablet 2 times rg5 per day [Active]; clonidine HCl 0.1 mg Oral tab 1 tab every 6 hours [Active]; dicyclomine 20 mg Oral tablet [Active]; Entresto 49-51 mg Oral tablet 2 times per day [Active]; Fioricet 50-300-40 mg Oral capsule [Active]; furosemide 40 mg Oral tablet daily [Active]; hydralazine 25 mg Oral tablet 3 times per day [Active]; losartan potassium 50 mg 1 tab daily [Active]; nifedipine 60 mg Oral TbER 1 tab twice daily [Active]; ondansetron HCl 4 mg Oral tablet [Active]; - PMHx: 20:40 brain tumor-removed; Dialysis; End stage renal disease; Hypertension; Migraines; rg5 Seizures; - PSHx: 20:40 brain SX x 2; section; donor kidney removed; Fistula- L arm; kidney biopsy; rg5 kidney transplant; - Immunization history:: Adult Immunizations up to date. - Infectious Disease History:: Denies. - Social history:: Smoking status: unknown. - Family history:: not pertinent. Screenin:22 [facility] ED Fall Risk Assessment (Adult) History of falling in the last 3 months, rg5 including since admission No falls in past 3 months (0 pts) Confusion or Disorientation No (0 pts) Intoxicated or Sedated No (0 pts) Impaired Gait No (0 pts) Mobility Assist Device Used No (0 pt) Altered Elimination No (0 pt) Score/Fall Risk Level 0 - 2 = Low Risk Oriented to surroundings, Maintained a safe environment, Hourly rounding (assess needs \T\ fall precautionary measures) done. 20:22 Abuse screen: Denies threats or abuse. Nutritional screening: No deficits noted. rg5 Tuberculosis screening: No symptoms or risk factors identified. Assessment: 20:25 General: Appears in no apparent distress. Behavior is calm, cooperative, appropriate rg5 for age. Pain:. Neuro: Level of Consciousness is awake, alert, obeys commands. 21:00 Reassessment: Patient and/or family updated on plan of care and expected duration. Pain rg5 level reassessed. Patient is alert, oriented x 3, equal unlabored respirations, skin warm/dry/pink. 22:00 Reassessment: Patient and/or family updated on plan of care and expected duration. Pain rg5 level reassessed. Patient is alert, oriented x 3, equal unlabored respirations, skin warm/dry/pink. 23:00 Reassessment: Patient and/or family updated on plan of care and expected duration. Pain rg5 level reassessed. Patient is alert, oriented x 3, equal unlabored respirations, skin warm/dry/pink. 04/16 00:11 Reassessment: Patient and/or family updated on plan of care and expected duration. Pain rg5 level reassessed. Patient is alert, oriented x 3, equal unlabored respirations, skin warm/dry/pink. Vital Signs: 04/15 20:20 BP 182 / 123; Pulse 89; Resp 18; Temp 98.2(O); Pain 7/10; rg5 20:21 BP 182 / 123; Pulse 89; Resp 18; Temp 98.2(O); Pulse Ox 98% on R/A; Weight 63.8 kg; rg5 Height 5 ft. 1 in. ; Pain 7/10; 21:00 BP 164 / 77; Pulse 84; Resp 17; Pulse Ox 100% on R/A; rg5 22:40 BP 152 / 109; Pulse 85; Resp 16; Pulse Ox 100% on R/A; rg5 23:16 BP 175 / 124; Pulse 88; Resp 17; Pulse Ox 100% on R/A; rg5 04/16 00:10 BP 135 / 91; Pulse 86; Resp 18; Temp 98; Pulse Ox 99% on R/A; Pain 6/10; rg5 04/15 20:21 Body Mass Index 26.58 (63.80 kg, 154.94 cm) rg5 04/15 20:20 Pain Scale: Adult rg5 20:21 Pain Scale: Adult rg5 04/16 00:10 Pain Scale: Adult rg5 ED Course: 04/15 20:08 Patient arrived in ED. ra3 20:20 Arm band placed on right wrist. EKG completed in triage. Results shown to MD. rg5 20:22 Patient has correct armband on for positive identification. Placed in gown. Bed in low rg5 position. Call light in reach. Side rails up X 1. Door closed. Noise minimized. Warm blanket given. 20:22 No provider procedures requiring assistance completed. rg5 20:23 Martin Salazar, JERALD is Primary Nurse. rg5 20:31 Javon Rodriguez MD is Attending Physician. trevor 20:40 Triage completed. rg5 20:58 XRAY Chest (1 view) In Process Unspecified. EDMS 21:31 US Extremity Venous W Compression Wei In Process Unspecified. EDMS 22:10 Missed attempt(s): 20 gauge Bleeding controlled, band aid applied, catheter tip intact. oe 22:19 Missed attempt(s): 22 gauge in right forearm. Bleeding controlled, band aid applied, oe catheter tip intact. 22:42 Initial lab(s) drawn, by ky, sent to lab. Inserted saline lock: 22 gauge in right cm10 wrist, using aseptic technique. Blood collected. Flushed with 10 mL NS. 23:30 Prince Urias MD is Hospitalizing Provider. [facility] 04/16 00:42 Provided Education on: post er care. rg5 00:42 Patient admitted, IV remains in place. intact, No redness/swelling at site. rg5 Administered Medications: 04/15 22:00 Drug: HydrALAZINE PO 50 mg PO once Route: PO; rg5 23:00 Follow up: Response: No adverse reaction rg5 22:45 Drug: HYDROmorphone IVP 0.5 mg IVP once Route: IVP; Site: right forearm; rg5 23:00 Follow up: Response: No adverse reaction; Pain is decreased rg5 22:45 Drug: Ondansetron IVP 4 mg IVP once; over 2 minutes Route: IVP; Site: right forearm; rg5 23:00 Follow up: Response: No adverse reaction rg5 22:49 Drug: hydrALAZINE IVP 20 mg IVP once Route: IVP; Site: right forearm; rg5 23:00 Follow up: Response: No adverse reaction rg5 Medication: 04/16 00:42 VIS not applicable for this client. rg5 Outcome: 04/15 23:31 Decision to Hospitalize by Provider. [facility] 04/16 00:42 Admitted to Med/surg accompanied by nurse, via wheelchair, rg5 Condition: stable Instructed on the need for admit, 00:53 Patient left the ED. rg5 Signatures: Dispatcher [employer] Javon Pettit MD MD cha Espinosa, Orlando oe Martinez, Clarissa, RN RN cm10 Brittany Bonner 3 Martin Salazar, RN RN rg5
[2024-04-15] MEDS ORDERED: ACETAMINOPHEN 500 MG TAB PO PRN (23:35)
[2024-04-15] MEDS ORDERED: ONDANSETRON 4 MG/2 ML VIAL IV PRN (23:35)
--- NOTE | 2024-04-15 23:57 | P.HP ---
Certification for Inpatient Patient admitted to: Observation With expected LOS: <2 Midnights Practitioner: I am a practitioner with admitting privileges, knowledge of patient current condition, hospital course, and medical plan of care. Services: Services provided to patient in accordance with Admission requirements found in Title 42 Section 412.3 of the Code of Federal Regulations Patient History Date of Service: 04/15/24 Reason for admission: volume overload History of Present Illness: Patient is a 33-year-old female with a past medical history of hypertension and ESRD on hemodialysis Tuesday, and Saturdays. She is followed by Dr. Srinivasa Santamaria. She presented to the ER complaining of an acute onset of volume overload manifested by bilateral lower extremity edema and periorbital edema. Patient is slightly hypertensive with SBP in the 160s. She states that she has been compliant with all her dialysis sessions. She feels that they have not been removing enough fluid and she has had admissions like this in the past. Workup in the ER included a chest x-ray which was within normal limits. Upon evaluation, patient had visible evidence of bilateral lower extremity edema. She also complained of itching. Her BUN is 25, creatinine of 5. Her potassium is 4.5. Allergies sulfamethoxazole [From Bactrim] Allergy (Verified 10/27/23 00:24) Itching/Hives/Rash trimethoprim [From Bactrim] Allergy (Verified 10/27/23 00:24) Itching/Hives/Rash Home Medications: Bumetanide 1 mg PO BID 01/30/24 Apixaban [Eliquis *] 2.5 mg PO BID #60 tablet 02/28/24 Doxazosin [Cardura*] 4 mg PO BID #60 tab 03/06/24 Olmesartan Medoxomil 40 mg PO DAILY #30 tab 03/06/24 Sevelamer Carbonate [Renvela*] 800 mg PO TIDWM #0 03/06/24 atenoloL [Tenormin*] 50 mg PO BEDTIME tab 03/06/24 Divalproex Sodium [Divalproex Sodium ER] 1 tab PO DAILY 04/10/24 Famotidine [Pepcid*] 20 mg PO DAILY 04/10/24 Gabapentin [Neurontin*] 100 mg PO DAILY 04/10/24 Hydrocodone Bit/Acetaminophen [Hydrocodon-Acetaminophn 10-325] 1 tab PO Q6HP PRN 04/10/24 Losartan Potassium [Cozaar*] 50 mg PO BID 04/10/24 cloNIDine HCL [Clonidine HCl] 1 tab PO TID 04/10/24 clonazePAM [Klonopin*] 1 tab PO BID PRN 04/10/24 hydrOXYzine HCL [Atarax] 50 mg PO Q6H PRN #30 tab 04/10/24 - Past Medical/Surgical History Diabetic: No -: HTN -: ESRD (Dr. Wills/ Juan A) -: Seizures (as a child) -: Hx Brain tumor -: Asthma -: DVT -: Csection x2 -: Brain Sx -: Kidney Transplant Nephrectomy/transplant was removed recently Psychosocial/ Personal History: Lives at home - Social History Alcohol use: No CD- Drugs: No Caffeine use: No Physical Examination - Physical Exam General: Acute distress HEENT: Atraumatic, Normocephalic Respiratory: Clear to auscultation bilaterally, Normal air movement, Diminished Cardiovascular: Normal pulses, Regular rate/rhythm, Normal S1 S2, Other (Left upper extremity AV graft), Edema (Bilateral lower extremity edema) Neurological: Normal speech - Studies Laboratory Data (last 24 hrs) 04/15/24 04/15/24 04/15/24 22:40 22:40 22:40 WBC 6.80 Hgb 10.3 L Hct 31.4 L Plt Count 124 L PT 13.9 H INR 1.25 Sodium 134 L Potassium 4.5 BUN 25 H Creatinine 5.24 H Glucose 99 Magnesium 2.0 Total Bilirubin 1.2 H AST 13 L ALT 15 Alkaline Phosphatase 86 Lipase 20 Assessment and Plan - Problems (Diagnosis) (1) ESRD (end stage renal disease) Current Visit: No Status: Acute (2) HTN (hypertension) Current Visit: No Status: Acute Qualifiers: (3) Hypertensive urgency Current Visit: No Status: Acute - Plan Assessment This is a 33-year-old female who is being admitted after she presented with lower extremity edema. She has a history of ESRD and she is compliant with all her dialysis sessions. Volume overload ESRD compliant with hemodialysis-Tuesday, and Saturdays Hypertensive urgency Thrombocytopenia Itching Plan: Will admit under observation with telemetry Primary client liaison, Dr. Srinivasa Santamaria consulted Will provide hydroxyzine for itching As needed IV hydralazine for uncontrolled hypertension SCDs for DVT prophylaxis - Advance Directives Does patient have a Living Will: No Does patient have a Durable POA for Healthcare: No
[2024-04-16] MEDS: ALBUTEROL 2.5 MG/3 ML NEB SOL NEB SCH (01:00)
[2024-04-16] MEDS: IPRATROPIUM BROM 0.5MG/2.5ML NEB SCH (01:00)
[2024-04-16 01:04] VITALS: BMI 26.9
[2024-04-16] MEDS: hydrOXYzine HCL 25 MG TAB PO ONE (01:22)
[2024-04-16 05:52] LABS: Absolute Eosinophils 0.6 K/uL (0-0.5); Absolute Lymphocytes (CBC) 0.5 K/uL (0.7-4.9); Absolute Monocytes 0.8 K/uL (0.1-1.3); Absolute Neutrophil 4.1 K/uL (1.8-8.0); Basophils % 0.8 % (0-1.3); Eosinophils % 9.4 % (0-4.4); Hematocrit 30.1 % (36.0-45.0); Hemoglobin 9.7 g/dL (12.0-15.0); Lymphocytes % 8.8 % (15.3-44.8); MCH 28.5 pg (27.0-35.0); MCHC 32.3 g/dL (32.0-36.0); MCV 88.2 fL (80-100); Monocytes % 12.7 % (3.3-12.3); Neutrophils % 68.3 % (41.7-73.7); Platelets 128 thou/uL (152-406); RBC Red Blood Cell Count 3.41 M/uL (3.86-4.86); Red Cell Distribution Width 18.6 % (12.1-15.2)
[2024-04-16 06:11] LABS: Magnesium 2.1 mg/dL (1.6-2.4); Phosphorus 4.9 mg/dL (2.5-4.9)
[2024-04-16 06:20] LABS: Anion Gap 9.4 mEq/L (5.0-15.0); Potassium 4.4 mEq/L (3.5-5.1)
[2024-04-16] MEDS ORDERED: clonazePAM 0.5 MG TAB PO PRN (06:54)
[2024-04-16] MEDS ORDERED: NA CHLORIDE 0.9% 1,000 ML IV PRN (07:05)
[2024-04-16] MEDS ORDERED: MANNITOL 25% 12.5 GM/50 ML VIAL IV PRN (07:05)
[2024-04-16] MEDS ORDERED: EPOETIN ALFA 10,000 UNIT/ML VIAL IV SCH (07:15)
[2024-04-16] MEDS ORDERED: ALBUMIN HUMAN 25% 50 ML IV SCH (08:00)
[2024-04-16] MEDS ORDERED: hydrOXYzine HCL 25 MG TAB PO PRN (08:13)
[2024-04-16] MEDS: FAMOTIDINE 20 MG TAB PO SCH (08:25)
[2024-04-16] MEDS: GABAPENTIN 100 MG CAP PO SCH (08:25)
[2024-04-16] MEDS: DIVALPROEX ER 250 MG TAB PO SCH (08:25)
[2024-04-16] MEDS: cloNIDine HCL 0.1 MG TAB PO SCH (08:26)
[2024-04-16] MEDS: DOXAZOSIN 4 MG TAB PO SCH (08:26)
[2024-04-16] MEDS: FLU (Fluarix Triv) TS24-25(6MOS UP)/PF 45 MCG/0.5 ML Syringe IM ONE (09:00)
[2024-04-16 10:19] VITALS: O2SAT 98
--- NOTE | 2024-04-16 10:56 | P.PN ---
Date of Service: 04/16/24 Subjective: Patient denies shortness of breath, but reports increased swelling in her legs over the last few days Reports compliance with her medications and dialysis No change in her diet fluid intake ROS: 10 point ROS as noted above, otherwise negative Physical Exam: GEN: Alert, oriented, NAD HEENT: Normal conjunctiva, sclera anicteric, CV: Regular rate and rhythm, Bilateral lower extremity edema. LUE AV graft Pulm: Nonlabored respirations on room air, diminished at bases b/l ABD: soft, nontender, nondistended Integumentary: No rashes Neuro: Normal speech, normal affect Problem List: Volume overload ESRD compliant on HD - TTS Hypertensive urgency Pruritis Hx shingles Thrombocytopenia Hx recent RUE DVT (Right cephalic & basilic 02/28/24) Hx right kidney transplant/nephrectomy Volume overload ESRD compliant on HD - TTS Hypertensive urgency on admission, presents with worsening bilateral lower extremity associated with stomach pain/bloating. Reports compliant with dialysis - hasn't missed any sessions recently. Patient feels not enough fluid is being removed with each session. Reports similar episodes in past requiring hospitalizations. BNP > 175k CXR (04/15): No acute findings. Moderate Cardiomegaly. CT chest/abd ~1 week ago from last hospitalization with moderate ascites, body wall edema, bilateral pleural effusions venous u/s (04/15): no DVT bilaterally Nephrology consulted Dialysis per nephrology - anticipate dialysis today continue to monitor renal function, electrolytes confirm home antihypertensives, restart as appropriate IV hydralazine for now BP improving Pruritis Hx shingles reports dealing with itchyness, neuropathic pain since developing shingles in november (per last hospitalization) PRN hydroxyzine Thrombocytopenia Daily labs. monitor platelets Hx recent RUE DVT (Right cephalic & basilic 02/28/24) confirm home meds, restart as appropriate VTE: SCD for now Code: Full Dispo: Home, ~1-2 days Pending nephrology recs, further dialysis Time Spent Managing Pts Care (In Minutes): 41
--- NOTE | 2024-04-16 11:06 | P.CNS ---
Date of Consult: 04/16/24 Reason for Consult: ESRD Requesting Physician: Clovis Barclay Chief Complaint: volume overload History of Present Illness: Patient is a 33-year-old female with a past medical history of hypertension and ESRD on hemodialysis Tuesday, and Saturdays. She is followed by Dr. Srinivasa Santamaria. She presented to the ER complaining of an acute onset of volume overload manifested by bilateral lower extremity edema and periorbital edema. Patient is slightly hypertensive with SBP in the 160s. She states that she has been compliant with all her dialysis sessions. She feels that they have not been removing enough fluid and she has had admissions like this in the past. Workup in the ER included a chest x-ray which was within normal limits. Upon evaluation, patient had visible evidence of bilateral lower extremity edema. She also complained of itching. Her BUN is 25, creatinine of 5. Her potassium is 4.5. 21:45 This 33 yrs old Female presents to ER via Ambulatory with complaints of Leg trevor Swelling - BL, stomach pain,bloating. 21:45 The patient presents with decreased range of motion, pain, that is acute. The trevor complaints affect the right leg and left leg. Context: The problem was sustain ed at home, resulted from an unknown cause. Modifying factors: The symptoms are alleviated by nothing. the symptoms are aggravated by weight bearing. weight gain , htn , despite t,, sat. Allergies sulfamethoxazole [From Bactrim] Allergy (Verified 10/27/23 00:24) Itching/Hives/Rash trimethoprim [From Bactrim] Allergy (Verified 10/27/23 00:24) Itching/Hives/Rash Home medications list reviewed: Yes Home Medications: Famotidine [Pepcid*] 20 mg PO DAILY 04/10/24 Losartan Potassium [Cozaar*] 50 mg PO BID 04/10/24 hydrOXYzine HCL [Atarax] 50 mg PO Q6H PRN #30 tab 04/10/24 Clonidine Patch [Catapres-Tts 3*] 1 patch TOP SEECOM 04/16/24 Divalproex ER [Depakote *ER] 500 mg PO DAILY tab 04/16/24 Ergocalciferol (Vitamin D2) [Vitamin D2] 1 cap PO SEECOM 04/16/24 Famotidine [Pepcid*] 20 mg PO DAILY tab 04/16/24 Gabapentin [Neurontin*] 100 mg PO DAILY cap 04/16/24 Hydralazine [Apresoline*] 10 mg IV Q4HP PRN vial 04/16/24 Pantoprazole [Protonix Tab*] 1 tab PO DAILY 04/16/24 clonazePAM [Klonopin*] 0.5 mg PO BID PRN tab 04/16/24 - Past Medical/Surgical History Diabetic: No -: HTN -: ESRD (Dr. Wills/ [facility]) -: Seizures (as a child) -: Hx Brain tumor -: Asthma -: DVT -: Csection x2 -: Brain Sx -: Kidney Transplant Nephrectomy/transplant was removed recently Psychosocial/ Personal History: Lives at home - Social History Smoking Status: Unknown if ever smoked Alcohol use: No CD- Drugs: No Caffeine use: Yes Place of Residence: Home Review of Systems 10-point ROS is otherwise unremarkable General: Weakness, Malaise Respiratory: SOB with Excertion Physical Examination Temp Pulse Resp BP Pulse Ox 97.9 F 76 16 137/81 95 04/16/24 08:00 04/16/24 08:00 04/16/24 08:00 04/16/24 08:00 04/16/24 08:00 General: In no apparent distress, Oriented x3, Cooperative HEENT: Atraumatic Neck: Supple Respiratory: Diminished Cardiovascular: Normal pulses, Regular rate/rhythm Gastrointestinal: Soft and benign, Non-distended Musculoskeletal: No clubbing, No contractures Integumentary: No rashes, No cyanosis Neurological: Normal speech Laboratory Data (last 24 hrs) 04/15/24 04/15/24 04/15/24 22:40 22:40 22:40 WBC 6.80 Hgb 10.3 L Hct 31.4 L Plt Count 124 L PT 13.9 H INR 1.25 Sodium 134 L Potassium 4.5 BUN 25 H Creatinine 5.24 H Glucose 99 Magnesium 2.0 Total Bilirubin 1.2 H AST 13 L ALT 15 Alkaline Phosphatase 86 Lipase 20 Imagings Data: EXAMINATION: US bilateral LOWER EXTREMITY VENOUS DOPPLER CLINICAL INDICATION: Leg pain TECHNIQUE: Sonographic evaluation of the veins of the lower extremity bilaterally formed.Grayscale, color and spectral analysis performed on all vessels COMPARISON: March 2024 FINDINGS: The common femoral, superficial femoral, greater saphenous, popliteal and posterior tibial veins bilaterally are compressible and demonstrate augmentation. Doppler demonstrates good flow. IMPRESSION: No evidence of deep venous thrombosis involving either lower extremity Procedure: Chest Single View HISTORY: Congestion COMPARISON: April 09, 2024 FINDINGS: The lungs appear clear of acute infiltrate. No significant pleural effusion noted. The heart is moderately enlarged IMPRESSION: No acute abnormality is displayed. Conclusions/Impression: ESRD on HD TTS Hyponatremia -Acute HD today Malignant HTN with CKD -Start Losartan and Nifedipine -Start Atenolol -Continue Doxazosin -Continue Clonidine Peripheral Edema Hypervolemia -HD with UF Anemia in CKD -Retacrit prn CKD MBD Secondary HyperPTH -Start Renvela -Start Calcitriol Hospitalist and ER notes reviewed Thank you kindly for the consultation
[2024-04-16] MEDS: HYDRALAZINE HCL 20 MG/ML VIAL IV PRN (16:34)
[2024-04-16] MEDS: EPOETIN ALFA 10,000 UNIT/ML VIAL IV SCH (17:30)
[2024-04-16 18:06] LABS: HBsAG Nonreactive Report Report; Hepatitis B surface AG Interp. Nonreactive (Nonreactive)
--- NOTE | 2024-04-16 19:36 | P.DS ---
Admission Date: 04/15/24 Discharge Date: 04/16/24 Disposition: AMA-LEFT AGAINST MEDICAL ADVIC Discharge Condition: FAIR Reason for Admission: volume overload Brief History of Present Illness: 33-year-old female with past medical history of hypertension, ESRD on dialysis who was brought to ER with volume overload and shortness of breath and was admitted for diuresis and dialysis and control of blood pressure. Patient was monitored closely under telemetry. Patient underwent dialysis. Patient wants to go home but as the patient's blood pressure has been high. Hence was deferred discharge to a.m. but patient signed out AMA Hospital Course: Blood pressure controlled. Aggressive diuresis. Nephrology was consulted. Patient underwent dialysis and removed fluid Patient is scheduled for dialysis tomorrow as well which is a regular dialysis day But patient wants to go home and in spite of high blood pressure she wants to go AMA Signed out AMA Vital Signs/Physical Exam: Temp Pulse Resp BP Pulse Ox 97.8 F 73 16 156/100 H 100 04/16/24 12:00 04/16/24 12:00 04/16/24 12:00 04/16/24 12:00 04/16/24 12:00 General: Alert, In no apparent distress, Oriented x3 HEENT: Atraumatic, Normocephalic Neck: Supple Respiratory: Clear to auscultation bilaterally, Normal air movement Cardiovascular: Regular rate/rhythm, Normal S1 S2 Capillary refill: <2 Seconds Gastrointestinal: Soft and benign Musculoskeletal: No clubbing Integumentary: No rashes Laboratory Data at Discharge: WBC 6.00 thou/uL (4.3-10.9) 04/16/24 05:34 Hgb 9.7 g/dL (12.0-15.0) L 04/16/24 05:34 Hct 30.1 % (36.0-45.0) L 04/16/24 05:34 Plt Count 128 thou/uL (152-406) L 04/16/24 05:34 PT 13.9 SECONDS (9.4-12.5) H 04/15/24 22:40 INR 1.25 04/15/24 22:40 Sodium 133 mEq/L (136-145) L 04/16/24 05:34 Potassium 4.4 mEq/L (3.5-5.1) 04/16/24 05:34 BUN 28 mg/dL (7-18) H 04/16/24 05:34 Creatinine 5.50 mg/dL (0.55-1.02) H 04/16/24 05:34 Glucose 110 mg/dL (74-106) H 04/16/24 05:34 Phosphorus 4.9 mg/dL (2.5-4.9) 04/16/24 05:34 Magnesium 2.1 mg/dL (1.6-2.4) 04/16/24 05:34 Total Bilirubin 1.2 mg/dL (0.2-1.0) H 04/15/24 22:40 AST 13 U/L (15-37) L 04/15/24 22:40 ALT 15 U/L (13-56) 04/15/24 22:40 Alkaline Phosphatase 86 U/L (45-117) 04/15/24 22:40 Lipase 20 U/L (13-75) 04/15/24 22:40 Home Medications: Famotidine [Pepcid*] 20 mg PO DAILY 04/10/24 Losartan Potassium [Cozaar*] 50 mg PO BID 04/10/24 hydrOXYzine HCL [Atarax] 50 mg PO Q6H PRN #30 tab 04/10/24 Clonidine Patch [Catapres-Tts 3*] 1 patch TOP SEECOM 04/16/24 Divalproex ER [Depakote *ER] 500 mg PO DAILY tab 04/16/24 Ergocalciferol (Vitamin D2) [Vitamin D2] 1 cap PO SEECOM 04/16/24 Famotidine [Pepcid*] 20 mg PO DAILY tab 04/16/24 Gabapentin [Neurontin*] 100 mg PO DAILY cap 04/16/24 Hydralazine [Apresoline*] 10 mg IV Q4HP PRN vial 04/16/24 Pantoprazole [Protonix Tab*] 1 tab PO DAILY 04/16/24 clonazePAM [Klonopin*] 0.5 mg PO BID PRN tab 04/16/24 Diet: Renal Activity: Ad jose luis Followup: NONE,NONE [Primary Care Provider] - Time spent managing pt's care (in minutes): 48
[2024-04-16 20:15] VITALS: BP 210/110
[2024-04-16] MEDS ORDERED: atenoloL 50 MG TAB PO SCH (21:00)
[2024-04-16] MEDS ORDERED: DOCUSATE NA 100 MG CAP PO SCH (21:00)
[2024-04-16] MEDS ORDERED: LOSARTAN POTASSIUM 50 MG TABLET PO SCH (21:00)
[2024-04-16] MEDS ORDERED: NIFEDIPINE XL 90 MG TABLET PO SCH (21:00)
[2024-04-16 21:01] VITALS: TEMP 99.4
[2024-04-17] MEDS ORDERED: SEVELAMER CARBONATE 800 MG TABLET PO SCH (08:00)
[2024-04-17] MEDS ORDERED: MULTIVITAMINS,THERAPEUT 1 TAB PO SCH (09:00)
[2024-04-17] MEDS ORDERED: CALCITROL 0.25 MCG CAP PO SCH (09:00)
== END 2024-04-16 20:10 | disposition left against medical advice (07) | DRG 640 ==
LOC: ER 20:06 → 4TH 23:35
PROVIDERS: ADMIT Internal Medicine; ATTEND Hospitalist
PROC: 5A1D70Z Performance of Urinary Filtration, Intermittent, Less than 6 Hours Per Day (ICD-10-PCS; principal; 2024-04-16)
DX: E87.70 Fluid overload, unspecified (principal); N18.6 End stage renal disease; Z94.0 Kidney transplant status; I12.0 Hypertensive chronic kidney disease with stage 5 chronic kidney disease or end stage renal disease; N25.81 Secondary hyperparathyroidism of renal origin; D63.1 Anemia in chronic kidney disease; E87.1 Hypo-osmolality and hyponatremia; I16.0 Hypertensive urgency; G62.9 Polyneuropathy, unspecified; L29.9 Pruritus, unspecified; D69.6 Thrombocytopenia, unspecified; Z90.5 Acquired absence of kidney; Z99.2 Dependence on renal dialysis; Z88.1 Allergy status to other antibiotic agents; Z79.01 Long term (current) use of anticoagulants; Z79.02 Long term (current) use of antithrombotics/antiplatelets; Z53.29 Procedure and treatment not carried out because of patient's decision for other reasons; Z91.040 Latex allergy status; Z91.018 Allergy to other foods; Z79.899 Other long term (current) drug therapy; Z91.048 Other nonmedicinal substance allergy status; Z86.718 Personal history of other venous thrombosis and embolism
CPT/HCPCS: 36415; 71045; 80048; 80076; 82140; 83690; 83735; 83880; 84100; 84484; 85025; 85610; 87340; 90935; 93005; 93970; J0360; J1170; J1644; J2405

== ENCOUNTER 2024-04-24 09:30 | Emergency (ER) | payer OTHER ==
--- NOTE | 2024-04-24 10:39 | RAD REPORT ---
EXAMINATION: CT ABDOMEN AND PELVIS WITHOUT CONTRAST CLINICAL INDICATION: fever, back pain TECHNIQUE: CT abdomen and pelvis was performed, without IV contrast, as per department protocol. Axia l, sagittal and coronal reconstructions were obtained. One or more of the following dose reduction techniques were used: Automated exposure control, adjustment of the mA and kV according to the patien t size, and iterative reconstruction. Unless otherwise specified, incidental findings do not require dedicated imaging follow-up. COMPARISON: Multiple prior studies, most recent 03/29/2024 FINDINGS: The lack of intravenous contrast limits the sensitivity of this exam for evaluation of solid visceral organs, vascular structures, and retroperitoneum. LOWER CHEST: Trace right pleural effusion. Heart is moderately enlarged. LIVER:Normal in size and contour. No focal lesion. Grossly unremarkable gallbladder. SPLEEN: Normal size. No focal lesion. PANCREAS: No mass, ductal dilation, or hillary-pancreatic fluid. ADRENALS: Normal; no mass. KIDNEYS AND URETERS: Prominent renal atrophy bilaterally. URINARY BLADDER: Normal contour. GASTROINTESTINAL TRACT: No evidence of bowel obstruction, free air or abscess. Mild ascites. APPENDIX: Normal appendix. LYMPH NODES: No lymphadenopathy. MUSCULOSKELETAL: No acute or suspicious osseous abnormality. ADDITIONAL FINDINGS: Mild anasarca noted. Vague soft tissue structure right lower quadrant shows no a ppreciable adverse change. IMPRESSION: Mild ascites and generalized anasarca pattern. Significant atrophy of both [place] kidneys. No acute finding demonstrated.
--- NOTE | 2024-04-24 10:54 | RAD REPORT ---
EXAMINATION: ONE VIEW CHEST XR CLINICAL INDICATION: FEVER TECHNIQUE: Frontal chest projection is submitted. Examination is limited by patient positioning and t echnique. COMPARISON: 04/15/2024 FINDINGS: Interstitial markings are prominent which can be seen in mild interstitial pulmonary edema. The heart is moderately enlarged in size. No displaced fractures identified. IMPRESSION: Mild CHF versus volume overload pattern is suspected. Moderate cardiomegaly.
[2024-04-24 11:52] LABS: Specific Gravity 1.009 (1.005-1.030); Sqamous Epithelial 20-50 /HPF (None Seen); Urine Bacteria <20 /HPF (<20); Urine Bilirubin NEGATIVE (Negative); Urine Blood 1+ (Negative); Urine Clarity Extremely Turbid (Clear); Urine Color Yellow (Yellow); Urine Crystals Unidentified Few /HPF (None Seen); Urine Culture Reflex Order NOT NEEDED; Urine Glucose NEGATIVE (Negative); Urine Ketones NEGATIVE (Negative); Urine Microscopic Reflex YN ORDER UMIC; Urine Mucus Slight /HPF (None Seen); Urine Nitrite NEGATIVE (Negative); Urine Protein 3+ (Negative); Urine Urobilinogen Normal (Normal); Urine WBC <5 /HPF (<5); Urine WBC Clump Occasional /HPF (None Seen); Urine Yeast (Budding) Trace /HPF (None Seen)
[2024-04-24] MEDS ORDERED: MORPHINE 4 MG/ML SYR ONE (12:16)
[2024-04-24 12:22] LABS: Absolute Eosinophils 0.3 K/uL (0-0.5); Absolute Lymphocytes (CBC) 0.7 K/uL (0.7-4.9); Absolute Monocytes 0.6 K/uL (0.1-1.3); Absolute Neutrophil 3.9 K/uL (1.8-8.0); Basophils % 0.4 % (0-1.3); Eosinophils % 5.8 % (0-4.4); Hematocrit 33.3 % (36.0-45.0); Hemoglobin 10.9 g/dL (12.0-15.0); Lymphocytes % 11.8 % (15.3-44.8); MCH 28.9 pg (27.0-35.0); MCHC 32.8 g/dL (32.0-36.0); MPV 8.6 fL (7.6-11.3); Monocytes % 11.5 % (3.3-12.3); Neutrophils % 70.5 % (41.7-73.7); Platelets 202 thou/uL (152-406); RBC Red Blood Cell Count 3.78 M/uL (3.86-4.86); Red Cell Distribution Width 19.4 % (12.1-15.2)
[2024-04-24 12:23] LABS: SARS-CoV-2 Antigen CONTROL BLUE LINE VIS/BG OK; SARS-CoV-2 Antigen Rapid Res Negative (Negative)
[2024-04-24 12:29] LABS: PT Prothrombin Time 16.8 SECONDS (9.4-12.5); PTT, Activated Partial Thromb 31.5 SECONDS (24.3-36.9); Protime INR 1.52
[2024-04-24 12:37] LABS: AST/SGOT 13 U/L (15-37); Albumin 3.3 g/dL (3.4-5.0); Albumin/Globulin Ratio 0.9 (1.1-1.8); Alkaline Phosphatase 83 U/L (45-117); Anion Gap 15.3 mEq/L (5.0-15.0); BUN Blood Urea Nitrogen 41 mg/dL (7-18); Bicarbonate 23 mEq/L (21-32); Bilirubin Total 1.9 mg/dL (0.2-1.0); Globulin 3.6 g/dL (2.3-3.5); Glomerular Filtration Rate 7 ml/min (=/>90); Glucose Level 160 mg/dL (74-106); Potassium 4.3 mEq/L (3.5-5.1); Protein, Total 6.9 g/dL (6.4-8.2); Sodium Level 136 mEq/L (136-145)
[2024-04-24] MEDS ORDERED: CEPHALEXIN 250 MG CAP ONE (12:37)
[2024-04-24 12:44] LABS: ALT/SGPT < 14 U/L (13-56)
--- NOTE | 2024-04-24 13:13 | ER ---
Nurse's Notes [facility] Name: Shaun Lopez Age: 33 yrs Sex: Female : 1990 Arrival Date: 04/24/2024 Time: 09:30 Bed 23 Private MD: Diagnosis: UTI/ Urinary tract infection, site not specified Presentation: 04/24 09:48 Chief complaint: Patient states: N/V, weak, fever for 3 days. Coronavirus screen: ll1 Client denies travel out of the [place] in the last 14 days. At this time, the client does not indicate any symptoms associated with coronavirus-19. Ebola Screen: Patient denies travel to an Ebola-affected area in the 21 days before illness onset. No acute neurological deficit is noted. Initial Sepsis Screen: Does the patient meet any 2 criteria? No. Patient's initial sepsis screen is negative. Does the patient have a suspected source of infection? No. Patient's initial sepsis screen is negative. Risk Assessment: Do you want to hurt yourself or someone else? Patient reports no desire to harm self or others. Onset of symptoms was April 22, 2024. 09:48 Method Of Arrival: Ambulatory ll1 09:48 Acuity: VERNA 3 ll1 Triage Assessment: 09:48 General: Appears distressed, uncomfortable, Behavior is calm, cooperative, appropriate ll1 for age. General: Reports fever for feeling ill for fatigue for. Pain: Complains of pain in abdomen Pain currently is 7 out of 10 on a pain scale. Quality of pain is described as aching. Neuro: Reports dizziness, weakness. GI: Reports cramping, nausea, vomiting. BUTTON MAKER: 13:33 LMP 04/05/2024, unknown me1 Stroke Activation: Symptom onset > 6 hours Physician: ED Attending; Name: ; Notified At: ; Arrived At: Physician: Mid-Level Provider; Name: ; Notified At: ; Arrived At: Physician: [not used]; Name: ; Notified At: ; Arrived At: Physician: [not used]; Name: ; Notified At: ; Arrived At: Physician: [not used]; Name: ; Notified At: ; Arrived At: Historical: - Allergies: 09:37 Adhesives; ll1 09:37 AVOCADO (LAURUS PERSEA); ll1 09:37 Bactrim; ll1 09:37 Latex; ll1 - PMHx: 09:37 Hypertension; Seizures; End stage renal disease; Dialysis; Migraines; brain ll1 tumor-removed; - PSHx: 09:37 brain SX x 2; donor kidney removed; section; Fistula- L arm; kidney biopsy; ll1 kidney transplant; - Immunization history:: Adult Immunizations up to date. - Infectious Disease History:: Denies. - Social history:: Smoking status: Patient denies any tobacco usage or history of. - Family history:: not pertinent. - Hospitalizations: : No recent hospitalization is reported. Screenin:30 [facility] ED Fall Risk Assessment (Adult) History of falling in the last 3 months, jl7 including since admission No falls in past 3 months (0 pts) Confusion or Disorientation No (0 pts) Intoxicated or Sedated No (0 pts) Impaired Gait No (0 pts) Mobility Assist Device Used No (0 pt) Altered Elimination No (0 pt) Score/Fall Risk Level 0 - 2 = Low Risk Oriented to surroundings, Maintained a safe environment. Abuse screen: Denies threats or abuse. Denies injuries from another. Nutritional screening: No deficits noted. Tuberculosis screening: No symptoms or risk factors identified. Assessment: 10:57 Reassessment: No changes from previously documented assessment. Patient and/or family ll1 updated on plan of care and expected duration. Pain level reassessed. Patient is alert, oriented x 3, equal unlabored respirations, skin warm/dry/pink. 11:15 General: Appears in no apparent distress. uncomfortable, ill, Behavior is calm, jl7 cooperative, appropriate for age. Pain: Complains of pain in back and neck Pain currently is 7 out of 10 on a pain scale. Neuro: Level of Consciousness is awake, alert, obeys commands, Oriented to person, place, time, situation. Cardiovascular: Patient's skin is warm and dry. Cardiovascular:. Respiratory: Airway is patent Respiratory effort is even, unlabored, Respiratory pattern is regular, symmetrical. GI: Abdomen is non-distended, Reports nausea, vomiting. : Urine is cloudy. Derm: Skin is pink, warm \T\ dry. Vital Signs: 09:48 BP 150 / 105; Pulse 99; Resp 16; Temp 98.7; Pulse Ox 99% ; Weight 62.6 kg; Height 5 ft. ll1 1 in. ; Pain 7/10; 11:30 BP 133 / 91; Pulse 96; Resp 15; Temp 97.3(O); Pulse Ox 99% ; Pain 7/10; jl7 12:00 BP 133 / 100; Pulse 98; Resp 16; Pulse Ox 97% ; me1 12:38 Pain 5/10; jl7 13:00 BP 139 / 97; Pulse 96; Resp 16; Temp 98.4; Pulse Ox 98% ; me1 09:48 Body Mass Index 26.07 (62.60 kg, 154.94 cm) ll1 09:48 Pain Scale: Adult ll1 11:30 Pain Scale: Adult jl7 12:38 Pain Scale: Adult jl7 ED Course: 09:33 Patient arrived in ED. ra3 09:38 Blayne Barclay MD is Attending Physician. rn 09:38 Arm band placed on. ll1 09:49 Triage completed. ll1 10:20 Missed attempt(s): 22 gauge in right antecubital area. Bleeding controlled, band aid bc6 applied, catheter tip intact. 10:26 CT Abd/Pelvis - Without Contrast In Process Unspecified. EDMS 10:42 Chest Single View XRAY In Process Unspecified. EDMS 10:54 Tony Hernández, RN is Primary Nurse. jl7 10:57 Patient placed in an exam room, on a stretcher. ll1 11:30 Patient has correct armband on for positive identification. Bed in low position. Call jl7 light in reach. Side rails up X 1. Provided Education on: use of call ch. Pulse ox on. NIBP on. 11:30 Missed attempt(s): 22 gauge in right forearm. Bleeding controlled, band aid applied, jl7 catheter tip intact. 11:40 Missed attempt(s): 24 gauge in right hand. Bleeding controlled, band aid applied, jl7 catheter tip intact. 11:50 Initial lab(s) drawn, by tx, sent to lab. First set of blood cultures drawn by tx. ll1 Inserted saline lock: 22 gauge in right hand, using aseptic technique. Blood collected. Flushed with 10 mL NS. 12:05 Second set of blood cultures drawn by me. ll1 12:29 EKG done, by ED staff, reviewed by Blayne Barclay MD. me1 12:38 Primary Nurse role handed off by Tony Hernández RN jl7 13:19 Bianca Baptiste, RN is Primary Nurse. me1 13:34 IV discontinued, intact, bleeding controlled, No redness/swelling at site. Pressure me1 dressing applied. 13:36 No provider procedures requiring assistance completed. me1 Administered Medications: 11:25 Not Given (Duplicate Order): ns 0.9% 500 ml 500 ml IV at 1 bolus once; to be given as a rn bolus over 30 minutes 12:18 Drug: morphine IVP or IV 4 mg IVP once over 4 mins Route: IVP; Infused Over: 4 mins; jl7 Site: right hand; 12:38 Follow up: Pain 5/10 Adult; Response: No adverse reaction; Pain is decreased; RASS: jl7 Drowsy (-1) 12:38 Drug: Cephalexin PO 500 mg PO once Route: PO; jl7 13:20 Follow up: Response: No adverse reaction me1 Medication: 11:30 VIS not applicable for this client. 7 Outcome: 13:13 Discharge ordered by . rn 13:34 Discharged to home ambulatory, me1 13:34 Condition: stable 13:34 Discharge instructions given to patient, Instructed on discharge instructions, follow up and referral plans. medication usage, Demonstrated understanding of instructions, follow-up care, medications, Prescriptions given X 3, 13:36 Patient left the ED. tx1 Signatures: Dispatcher [employer] EDMS Blayne Barclay MD MD rn Leal, Jahala, RN RN jl7 Diego Mari RN RN 1 Luz Elena Jacobsen 6 Bianca Baptiste, JERALD RN me1 Brittany Bonner 3
--- NOTE | 2024-04-24 13:13 | EDPHYS ---
Physician Documentation [facility] Name: Shaun Lopez Age: 33 yrs Sex: Female : 1990 Arrival Date: 04/24/2024 Time: 09:30 Bed 23 Private MD: ED Physician Blayne Barclay HPI: 04/24 10:03 This 33 yrs old Female presents to ER via Ambulatory with complaints of Weakness, rn Vomiting. 10:05 The patient presents with pain that is acute. The symptoms are located in the left mid rn back and right mid back. Onset: The symptoms/episode began/occurred yesterday. The pain does not radiate. Associated signs and symptoms: Pertinent positives: fever, nausea, vomiting, weakness, Pertinent negatives: abdominal pain, chest pain. Modifying factors: The patient symptoms are alleviated by nothing, the patient symptoms are aggravated by any movement. Severity of symptoms: At their worst the symptoms were moderate, in the emergency department the symptoms are unchanged. The patient has not experienced similar symptoms in the past. The patient has not recently seen a physician. Patient reports fever, nausea/vomiting, back pain and generalized weakness that began yesterday. Reports mild headache but not the worst headache of her life. No stiff neck. No chest pain or shortness of breath. No trauma. No urinary symptoms. Denies abdominal pain just reports decreased appetite and nausea.. 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 - Infectious Disease History:: Denies. - Social history:: Smoking status: Patient denies any tobacco usage or history of. - Family history:: not pertinent. - Hospitalizations: : No recent hospitalization is reported. ROS: 10:05 Constitutional: Negative for fever, chills, and weight loss, Eyes: Negative for injury, rn pain, redness, and discharge, ENT: Negative for injury, pain, and discharge, Neck: Negative for injury, pain, and swelling, Cardiovascular: Negative for chest pain, palpitations, and edema, Respiratory: Negative for shortness of breath, cough, wheezing, and pleuritic chest pain, Abdomen/GI: Negative for abdominal pain, diarrhea, and constipation, Back: Positive for back pain : Negative for injury, bleeding, discharge, and swelling, MS/Extremity: Negative for injury and deformity, Skin: Negative for injury, rash, and discoloration, Neuro: Positive for generalized weakness Exam: 10:05 Constitutional: This is a well developed, well nourished patient who is awake, alert, rn and in no acute distress. Head/Face: Normocephalic, atraumatic. Neck: No meningismus Cardiovascular: Regular rate and rhythm. No pulse deficits. Respiratory: No increased work of breathing, no retractions or nasal flaring. Abdomen/GI: Soft, nontender, no masses Back: No spinal tenderness. Positive bilateral CVA tenderness Skin: No rash or lesions. MS/ Extremity: Pulses equal, no cyanosis. Neuro: Awake and alert, GCS 15 13:16 ECG was reviewed by the Attending Physician. rn Vital Signs: 09:48 BP 150 / 105; Pulse 99; Resp 16; Temp 98.7; Pulse Ox 99% ; Weight 62.6 kg; Height 5 ft. ll1 1 in. ; Pain 7/10; 11:30 BP 133 / 91; Pulse 96; Resp 15; Temp 97.3(O); Pulse Ox 99% ; Pain 7/10; jl7 12:00 BP 133 / 100; Pulse 98; Resp 16; Pulse Ox 97% ; me1 12:38 Pain 5/10; jl7 13:00 BP 139 / 97; Pulse 96; Resp 16; Temp 98.4; Pulse Ox 98% ; me1 09:48 Body Mass Index 26.07 (62.60 kg, 154.94 cm) ll1 09:48 Pain Scale: Adult ll1 11:30 Pain Scale: Adult jl7 12:38 Pain Scale: Adult jl7 MDM: 09:38 Medical Screening Exam initiated rn 13:12 Differential diagnosis: Ascites, volume overload, viral illness, pyelonephritis, UTI. rn Data reviewed: vital signs, nurses notes, lab test result(s), radiologic studies, CT scan, and as a result, I will discharge patient. Counseling: I had a detailed discussion with the patient and/or guardian regarding the historical points, exam findings, and any diagnostic results supporting the discharge/admit diagnosis, lab results, radiology results, the need for outpatient follow up, to return to the emergency department if symptoms worsen or persist or if there are any questions or concerns that arise at home. Special discussion: I discussed with the patient/guardian in detail that at this point there is no indication for admission to the hospital. It is understood, however, that if the symptoms persist or worsen the patient needs to return immediately for re-evaluation. ED course: No acute findings and workup, CT shows mild anasarca and chest x-ray shows mild pulmonary edema as expected for a dialysis patient. UA shows WBC clumps, will prescribe antibiotics for UTI given subjective fever and back pain with CVA tenderness. return precautions given and understood.. 04/24 09:54 Order name: Blood Culture Adult (2) rn 04/24 09:54 Order name: CBC with Diff; Complete Time: 12:32 rn 04/24 09:54 Order name: CMP; Complete Time: 12:56 rn 04/24 09:54 Order name: Lactate w/ 2H reflex if indic.; Complete Time: 12:56 rn 04/24 09:54 Order name: Protime (+inr); Complete Time: 12:32 rn 04/24 09:54 Order name: Ptt, Activated; Complete Time: 12:32 rn 04/24 09:54 Order name: Urinalysis w/ reflexes; Complete Time: 12:22 rn 04/24 09:54 Order name: Flu; Complete Time: 12:32 rn 04/24 09:54 Order name: Strep rn 04/24 09:54 Order name: SARS RAPID; Complete Time: 12:32 rn 04/24 12:26 Order name: Throat Culture EDCT 04/24 09:54 Order name: Chest Single View XRAY; Complete Time: 11:24 rn 04/24 09:56 Order name: CT Abd/Pelvis - Without Contrast; Complete Time: 11:24 rn 04/24 09:54 Order name: Accucheck; Complete Time: 12:18 rn 04/24 09:54 Order name: EKG - Nurse/Tech; Complete Time: 12:29 rn 04/24 09:54 Order name: IV Saline Lock - Large Bore; Complete Time: 12:19 rn 04/24 09:54 Order name: Labs collected and sent; Complete Time: 12: rn 04/24 09:54 Order name: O2 Per Protocol; Complete Time: 12: rn 04/24 09:54 Order name: O2 Sat Monitoring; Complete Time: 12: rn 04/24 09:54 Order name: Vital Signs; Complete Time: 12: rn EC:16 Rate is 98 beats/min. Rhythm is regular. Left axis deviation noted. QRS is positive in rn lead I and negative in lead aVF. OH interval is normal. QRS interval is normal. QT interval is normal. No Q waves. T waves are Normal. No ST changes noted. Clinical impression: NSR w/ Non-specific ST/T Changes. Interpreted by me. Reviewed by me. Administered Medications: 11:25 Not Given (Duplicate Order): ns 0.9% 500 ml 500 ml IV at 1 bolus once; to be given as a rn bolus over 30 minutes 12:18 Drug: morphine IVP or IV 4 mg IVP once over 4 mins Route: IVP; Infused Over: 4 mins; jl7 Site: right hand; 12:38 Follow up: Pain 5/10 Adult; Response: No adverse reaction; Pain is decreased; RASS: jl7 Drowsy (-1) 12:38 Drug: Cephalexin PO 500 mg PO once Route: PO; jl7 13:20 Follow up: Response: No adverse reaction me1 Disposition Summary: 04/24/24 13:13 Discharge Ordered Notes: Location: Home rn Problem: new rn Symptoms: have improved rn Condition: Stable rn Diagnosis - UTI/ Urinary tract infection, site not specified rn Followup: rn - With: Private Physician - When: As needed - Reason: Recheck today's complaints, Re-evaluation by your physician Discharge Instructions: - Discharge Summary Sheet rn - Urinary Tract Infection, Adult rn Forms: - Medication Reconciliation Form rn - 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 - Prescription Opioid Use rn - Patient Portal Instructions rn - Leadership Thank You Letter rn Prescriptions: - ondansetron 4 mg Oral Tablet,disintegrating - take 1 tablet ORAL route every 8 hours As needed; 12 tablet; Refills: 0, rn Product Selection Permitted - Cephalexin 500 mg Oral Capsule - take 1 capsule ORAL route every 12 hours for 10 days; 20 capsule; Refills: 0, rn Product Selection Permitted - Tramadol 50 mg Oral Tablet - take 1 tablet ORAL route every 8 hours as needed; 12 tablet; Refills: 0, rn Product Selection Permitted Signatures: Dispatcher [employer] Blayne Gomez MD MD rn Leal, Jahala, RN RN jl7 Diego Mari RN RN ll1 Bianca Baptiste RN me1 Corrections: (The following items were deleted from the chart) 09:55 09:55 Chest Single View+RAD.[email or web address] ordered. [facility] NICHEL[facility]
[2024-04-24 15:20] VITALS: BP 139/97; TEMP 98.4; O2SAT 98
--- NOTE | 2024-04-26 12:23 | EKG ---
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
== END 2024-04-24 13:36 | disposition home or self-care (01) ==
LOC: ER 09:30
DX: N39.0 Urinary tract infection, site not specified (principal); I12.0 Hypertensive chronic kidney disease with stage 5 chronic kidney disease or end stage renal disease; N18.6 End stage renal disease; Z99.2 Dependence on renal dialysis; Z11.52 Encounter for screening for COVID-19; Z94.0 Kidney transplant status
CPT/HCPCS: 36415; 71045; 74176; 80053; 81001; 83605; 85025; 85610; 85730; 87040; 87070; 87081; 87804; 87811; 93005

== ENCOUNTER 2024-05-02 16:40 | Emergency (ER) | payer OTHER ==
[2024-05-02 17:35] LABS: Absolute Basophils 0.1 K/uL (0-0.5); Absolute Eosinophils 0.6 K/uL (0-0.5); Absolute Lymphocytes (CBC) 0.5 K/uL (0.7-4.9); Absolute Monocytes 0.6 K/uL (0.1-1.3); Absolute Neutrophil 2.4 K/uL (1.8-8.0); Basophils % 1.3 % (0-1.3); Eosinophils % 13.3 % (0-4.4); Hematocrit 32.2 % (36.0-45.0); Hemoglobin 10.2 g/dL (12.0-15.0); Lymphocytes % 13.2 % (15.3-44.8); MCH 28.2 pg (27.0-35.0); MCHC 31.6 g/dL (32.0-36.0); MCV 89.2 fL (80-100); MPV 8.9 fL (7.6-11.3); Neutrophils % 58.2 % (41.7-73.7); Platelets 149 thou/uL (152-406); RBC Red Blood Cell Count 3.61 M/uL (3.86-4.86); Red Cell Distribution Width 18.9 % (12.1-15.2)
[2024-05-02] MEDS ORDERED: HYDRALAZINE HCL 20 MG/ML VIAL ONE ×2 (17:43→18:55)
[2024-05-02] MEDS ORDERED: FUROSEMIDE 20 MG/ 2ML VIAL ONE (17:44)
[2024-05-02] MEDS ORDERED: MORPHINE 2 MG/ML SYR ONE (17:53)
[2024-05-02 17:56] LABS: ALT/SGPT < 14 U/L (13-56); AST/SGOT 15 U/L (15-37); Albumin 3.2 g/dL (3.4-5.0); Albumin/Globulin Ratio 0.9 (1.1-1.8); Alkaline Phosphatase 131 U/L (45-117); Anion Gap 11.5 mEq/L (5.0-15.0); BUN Blood Urea Nitrogen 32 mg/dL (7-18); Bicarbonate 24 mEq/L (21-32); Bilirubin Direct 0.5 mg/dL (0-0.2); Bilirubin Indirect, Calculated 0.3 mg/dL (0.2-0.8); Bilirubin Total 0.8 mg/dL (0.2-1.0); Globulin 3.5 g/dL (2.3-3.5); Glomerular Filtration Rate 10 ml/min (=/>90); Glucose Level 131 mg/dL (74-106); Magnesium 1.9 mg/dL (1.6-2.4); Potassium 4.5 mEq/L (3.5-5.1); Protein, Total 6.7 g/dL (6.4-8.2); Sodium Level 134 mEq/L (136-145); Troponin High Sensitivity 16.6 pg/mL (<58.9)
[2024-05-02 18:10] LABS: NT PRO-BNP 142804 pg/mL (<125)
--- NOTE | 2024-05-02 18:19 | RAD REPORT ---
EXAMINATION: ONE VIEW CHEST XR CLINICAL INDICATION: DYSPNEA TECHNIQUE: Frontal chest projection is submitted. Examination is limited by patient positioning and t echnique. COMPARISON: 04/24/2024 FINDINGS: Mild bilateral pulmonary edema is suspected. The heart is moderately enlarged in size. No displaced f ractures identified. IMPRESSION: Mild CHF versus volume overload pattern is suspected.
[2024-05-02] MEDS ORDERED: FUROSEMIDE 100 MG/10 ML VIAL IV ONE (18:56)
--- NOTE | 2024-05-02 21:15 | EDPHYS ---
Physician Documentation [facility] Name: Shaun Lopez Age: 33 yrs Sex: Female : 1990 Arrival Date: 05/02/2024 Time: 16:40 Bed 15 Private MD: ED Physician Blayne Barclay HPI: 05/02 22:55 This 33 yrs old Female presents to ER via Ambulatory with complaints of stomach pain. kb 22:55 Patient is a 33-year-old female who presents for high blood pressure and swelling. 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 Reports swelling has been ongoing and she is in trying to get extra chair time for dialysis to get more fluid off but they have not had an extra spot for her. Denies shortness of breath. States she has not missed any dialysis days. Was dialyzed yesterday and has dialysis again tomorrow at 10 AM. 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 - Infectious Disease History:: Denies. - Social history:: Smoking status: Patient denies any tobacco usage or history of. ROS: 22:55 Constitutional: As per HPI kb Exam: 22:54 Constitutional: This is a well developed, well nourished patient who is awake, alert, kb and in no acute distress. Head/Face: Normocephalic, atraumatic. ENT: Moist Mucous membranes Cardiovascular: Regular rate Respiratory: Respirations even and unlabored. No increased work of breathing. Talking in full sentences Skin: Warm, dry with normal turgor. Normal color. MS/ Extremity: Pulses equal, no cyanosis. Neurovascular intact. Full, normal range of motion. Neuro: Awake and alert, GCS 15, oriented to person, place, time, and situation. 22:54 Cardiovascular: Edema: bilateral lower extremity edema, 22:54 ECG was reviewed by the Attending Physician. 22:54 Abdomen/GI: Inspection: distension, that is moderate, in the abdomen diffusely, Bowel sounds: normal, Palpation: abdomen is soft and non-tender, Vital Signs: 16:55 BP 217 / 140; Pulse 82; Resp 18; Temp 97.5(TE); Pulse Ox 99% on R/A; Weight 63.5 kg; cm10 Height 5 ft. 1 in. ; Pain 8/10; 17:30 BP 189 / 125; Pulse 73; Resp 19; Pulse Ox 98% ; me1 18:00 BP 173 / 111; Pulse 74; Resp 18; Pulse Ox 97% ; me1 18:53 Pain 4/10; me1 19:00 BP 160 / 111; Pulse 75; Resp 17; Pulse Ox 98% ; me1 19:30 BP 143 / 105; Pulse 71; Resp 18; Pulse Ox 98% ; me1 20:00 BP 147 / 106; Pulse 69; Resp 16; Pulse Ox 98% ; me1 21:00 BP 157 / 110; Pulse 70; Resp 16; Temp 98.7; Pulse Ox 97% ; me1 16:55 Body Mass Index 26.45 (63.50 kg, 154.94 cm) cm10 16:55 Pain Scale: Adult cm10 18:53 Pain Scale: Adult me1 MDM: 16:57 Medical Screening Exam initiated kb 16:59 Medical Screening Exam initiated kb 22:55 Differential diagnosis: Volume overload, hyperkalemia, pulmonary edema, hypertensive kb crisis, primary hypertension. Data reviewed: vital signs, nurses notes. Consideration of Admission/Observation Escalation of care including admission/observation considered. Admission considered but potassium normal, oxygen sat 100% on room air, patient in no distress. Patient has dialysis scheduled for 10 AM tomorrow and will keep appointment. Patient in agreement with outpatient treatment.. Care significantly affected by the following chronic conditions: Congestive Heart Failure, Chronic Kidney Disease. Counseling: I had a detailed discussion with the patient and/or guardian regarding the historical points, exam findings, and any diagnostic results supporting the discharge/admit diagnosis, lab results, radiology results, the need for outpatient follow up, a family practitioner, to return to the emergency department if symptoms worsen or persist or if there are any questions or concerns that arise at home. 05/02 17:08 Order name: Basic Metabolic Panel; Complete Time: 18:10 kb 05/02 17:08 Order name: CBC with Diff; Complete Time: 17:38 kb 05/02 17:08 Order name: LFT's; Complete Time: 18:10 kb 05/02 17:08 Order name: Magnesium; Complete Time: 18:10 kb 05/02 17:08 Order name: NT PRO-BNP; Complete Time: 18:10 kb 05/02 17:08 Order name: Troponin HS; Complete Time: 18:10 kb 05/02 17:08 Order name: XRAY Chest (1 view); Complete Time: 18:20 kb 05/02 17:08 Order name: EKG; Complete Time: 17:08 kb 05/02 17:08 Order name: Cardiac monitoring; Complete Time: 19:09 kb 05/02 17:08 Order name: EKG - Nurse/Tech; Complete Time: 19:09 kb 05/02 17:08 Order name: IV Saline Lock; Complete Time: 17:25 kb 05/02 17:08 Order name: Labs collected and sent; Complete Time: 17:25 kb 05/02 17:08 Order name: O2 Per Protocol; Complete Time: 17:25 kb 05/02 17:08 Order name: O2 Sat Monitoring; Complete Time: 17:25 kb EC:54 Rate is 76 beats/min. Rhythm is regular. QRS Johnson is Normal. FL interval is normal at kb 170 msec. QRS interval is normal at 86 msec. QT interval is normal at 459 msec. Administered Medications: 17:47 Drug: hydrALAZINE IVP 10 mg IVP once Route: IVP; Site: right forearm; me1 18:53 Follow up: Response: No adverse reaction; Blood pressure is unchanged me1 17:47 Drug: Furosemide IVP 20 mg IVP once; give over 2 minutes Route: IVP; Site: right me1 forearm; 18:53 Follow up: Response: No adverse reaction me1 18:04 Drug: morphine IVP or IV 2 mg IVP once over 4 mins Route: IVP; Infused Over: 4 mins; me1 Site: right forearm; 18:53 Follow up: Pain /10 Adult; Response: No adverse reaction; Pain is decreased me1 18:05 Not Given (Patient Refused; no c/o nauseaa): ondansetron 4 mg IVP once; over 2 minutes me1 18:59 Drug: Furosemide IVP 60 mg IVP once; give over 2 minutes Route: IVP; Site: right me1 forearm; 19:45 Follow up: Response: No adverse reaction me1 18:59 Drug: hydrALAZINE IVP 10 mg IVP once Route: IVP; Site: right forearm; me1 19:45 Follow up: Response: No adverse reaction me1 Disposition: 05/03 07:45 Co-signature as Attending Physician, Blayne Barclay MD I reviewed the patient's care rn provided by the Advanced Practice Provider and agree with the diagnosis and treatment plan. Disposition Summary: 05/02/24 21:15 Discharge Ordered Notes: Location: Home kb Condition: Stable kb Diagnosis - Fluid overload, unspecified kb Followup: kb - With: Emergency Department - When: As needed - Reason: Worsening of condition Followup: kb - With: Private Physician - When: 2 - 3 days - Reason: Recheck today's complaints, Continuance of care, Re-evaluation by your physician Forms: - Medication Reconciliation Form kb - Antibiotic Education kb - Prescription Opioid Use kb - Patient Portal Instructions kb - Leadership Thank You Letter kb Signatures: Dispatcher [employer] Elsy Galicia, TIMOTHY-Rakel GARCIAP-Blayne Felix MD MD rn Martinez, Clarissa RN RN cm10 Bianca Baptiste RN RN me1
--- NOTE | 2024-05-02 21:15 | ER ---
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 Pt states that she is also having abdominal pain and she feels like she is fluid overloaded. Coronavirus screen: Client denies travel out of the [place] in the last 14 days. Ebola Screen: Patient denies travel to an Ebola-affected area in the 21 days before illness onset. No symptoms or risks identified at this time. Initial Sepsis Screen: Does the patient meet any 2 criteria? No. Patient's initial sepsis screen is negative. Initial Sepsis Screen: Does the patient have a suspected source of infection? No. Patient's initial sepsis screen is negative. Risk Assessment: Do you want to hurt yourself or someone else? Patient reports no desire to harm self or others. Onset of symptoms was May 02, 2024. 16:55 Method Of Arrival: Ambulatory cm10 16:55 Acuity: VERNA 3 cm10 Triage Assessment: 16:58 General: Appears in no apparent distress. uncomfortable, Behavior is calm, cooperative. cm10 Neuro: No deficits noted. Level of Consciousness is awake, alert, obeys commands, Oriented to person, place, time, situation, Appropriate for age. Respiratory: No deficits noted. Airway is patent Respiratory effort is even, unlabored, Respiratory pattern is regular, symmetrical. 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 - Infectious Disease History:: Denies. - Social history:: Smoking status: Patient denies any tobacco usage or history of. Screenin:55 [facility] ED Fall Risk Assessment (Adult) History of falling in the last 3 months, me1 including since admission No falls in past 3 months (0 pts) Confusion or Disorientation No (0 pts) Intoxicated or Sedated No (0 pts) Impaired Gait No (0 pts) Mobility Assist Device Used No (0 pt) Altered Elimination No (0 pt) Score/Fall Risk Level 0 - 2 = Low Risk Maintained a safe environment, Provided non-skid footwear, Hourly rounding (assess needs \T\ fall precautionary measures) done. Abuse screen: Denies threats or abuse. Nutritional screening: No deficits noted. Tuberculosis screening: No symptoms or risk factors identified. 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 Pt states that she is also having abdominal pain and she feels like she is fluid overloaded. Pain: Complains of pain in right leg and left leg Pain does not radiate. Pain currently is 7 out of 10 on a pain scale. Quality of pain is described as heavy, Pain began gradually, Is continuous. Neuro: Level of Consciousness is awake, alert, obeys commands, Oriented to person, place, time, situation, Appropriate for age. Cardiovascular: Patient's skin is warm and dry. Respiratory: Airway is patent Respiratory effort is even, unlabored, Respiratory pattern is regular, symmetrical. GI: No signs and/or symptoms were reported involving the gastrointestinal system. : No signs and/or symptoms were reported regarding the genitourinary system. EENT: No signs and/or symptoms were reported regarding the EENT system. Derm: Skin is intact, is healthy with good turgor, Skin is pink, warm \T\ dry. Musculoskeletal: Swelling present in right leg and left leg. Vital Signs: 16:55 BP 217 / 140; Pulse 82; Resp 18; Temp 97.5(TE); Pulse Ox 99% on R/A; Weight 63.5 kg; cm10 Height 5 ft. 1 in. ; Pain 8/10; 17:30 BP 189 / 125; Pulse 73; Resp 19; Pulse Ox 98% ; me1 18:00 BP 173 / 111; Pulse 74; Resp 18; Pulse Ox 97% ; me1 18:53 Pain 4/10; me1 19:00 BP 160 / 111; Pulse 75; Resp 17; Pulse Ox 98% ; me1 19:30 BP 143 / 105; Pulse 71; Resp 18; Pulse Ox 98% ; me1 20:00 BP 147 / 106; Pulse 69; Resp 16; Pulse Ox 98% ; me1 21:00 BP 157 / 110; Pulse 70; Resp 16; Temp 98.7; Pulse Ox 97% ; me1 16:55 Body Mass Index 26.45 (63.50 kg, 154.94 cm) cm10 16:55 Pain Scale: Adult cm10 18:53 Pain Scale: Adult ri1 ED Course: 16:43 Patient arrived in ED. ra3 16:57 Elsy Flores FNP-C is PHCP. kb 16:57 Blayne Barclay MD is Attending Physician. kb 16:57 Triage completed. cm10 16:58 Arm band placed on Patient placed in an exam room, on a stretcher. cm10 16:59 Elsy Flores FNP-C is PHCP. kb 16:59 Blayne Barclay MD is Attending Physician. kb 17:00 Bianca Baptiste, JERALD is Primary Nurse. me1 17:20 Patient has correct armband on for positive identification. Bed in low position. Call ri1 light in reach. Side rails up X2. Provided Education on: POC. Verbalized understanding.. Client placed on continuous cardiac and pulse oximetry monitoring. NIBP monitoring applied. warrant server on. Pulse ox on. NIBP on. 17:25 Basic Metabolic Panel Sent. me1 17:25 CBC with Diff Sent. me1 17:25 LFT's Sent. me1 17:25 Magnesium Sent. me1 17:25 NT PRO-BNP Sent. me1 17:25 Troponin HS Sent. me1 17:25 Initial lab(s) drawn, by ri, sent to lab. Inserted saline lock: 22 gauge in right me1 forearm, using aseptic technique. 17:55 No provider procedures requiring assistance completed. me1 18:12 XRAY Chest (1 view) In Process Unspecified. EDMS 19:09 EKG done, by ED staff, reviewed by Elsy GONGORA. me1 21:42 IV discontinued, intact, bleeding controlled, No redness/swelling at site. Pressure me1 dressing applied. Administered Medications: 17:47 Drug: hydrALAZINE IVP 10 mg IVP once Route: IVP; Site: right forearm; me1 18:53 Follow up: Response: No adverse reaction; Blood pressure is unchanged me1 17:47 Drug: Furosemide IVP 20 mg IVP once; give over 2 minutes Route: IVP; Site: right me1 forearm; 18:53 Follow up: Response: No adverse reaction me1 18:04 Drug: morphine IVP or IV 2 mg IVP once over 4 mins Route: IVP; Infused Over: 4 mins; me1 Site: right forearm; 18:53 Follow up: Pain 4/10 Adult; Response: No adverse reaction; Pain is decreased me1 18:05 Not Given (Patient Refused; no c/o nauseaa): ondansetron 4 mg IVP once; over 2 minutes me1 18:59 Drug: Furosemide IVP 60 mg IVP once; give over 2 minutes Route: IVP; Site: right me1 forearm; 19:45 Follow up: Response: No adverse reaction me1 18:59 Drug: hydrALAZINE IVP 10 mg IVP once Route: IVP; Site: right forearm; me1 19:45 Follow up: Response: No adverse reaction me1 Medication: 17:55 VIS not applicable for this client. me1 Outcome: 21:15 Discharge ordered by MD. rivers 21:42 Discharged to home ambulatory, with family, me1 21:42 Condition: stable 21:42 Discharge instructions given to patient, Instructed on discharge instructions, follow up and referral plans. Demonstrated understanding of instructions, follow-up care, 21:44 Patient left the ED. 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 Pt states that she is also having abdominal pain and she feels like she is fluid overloaded. cm10 : 17:55 Patient has correct armband on for positive identification. Bed in low position. me1 Call light in reach. Side rails up X2. ri1 : 17:55 Provided Education on: POC. Verbalized understanding.. me1 ri1 : 17:55 Client placed on continuous cardiac and pulse oximetry monitoring. NIBP ri1 monitoring applied. warrant server on. Pulse ox on. NIBP on. ri1
[2024-05-02 22:39] VITALS: BP 157/110; TEMP 98.7; O2SAT 97
--- NOTE | 2024-05-03 11:07 | EKG ---
Test Date: 2024-05-02 Test Time: 18:15:16 Intake Coordinator: MEASUREMENT RESULTS: Intervals: Rate: 76 LA: 170 QRSD: 86 QT: 408 QTc: 459 Hodge: P: 32 LA: 170 QRS: -58 T: 97 INTERPRETIVE STATEMENTS: Normal sinus rhythm Possible Left atrial enlargement Left anterior fascicular block ST & T wave abnormality, consider lateral ischemia Abnormal ECG Compared to ECG 04/24/2024 12:22:39 Left anterior fascicular block now present ST (T wave) deviation now present Possible ischemia now present Left-axis deviation no longer present Electronically Signed On 05-03-24 11:06:52 CDT by Alirio Dickerson
== END 2024-05-02 21:44 | disposition home or self-care (01) ==
LOC: ER 16:40
DX: E87.70 Fluid overload, unspecified (principal); I12.0 Hypertensive chronic kidney disease with stage 5 chronic kidney disease or end stage renal disease; N18.6 End stage renal disease; Z99.2 Dependence on renal dialysis
CPT/HCPCS: 85025; 80048; 36415; 83735; 80076; 84484; 83880; 71045; J0360 ×2; J1940; J2270; 93005; 96374; 96375; 99285

== ENCOUNTER 2024-05-16 11:46 | Emergency (ER) | payer OTHER ==
[2024-05-16] MEDS ORDERED: ONDANSETRON 4 MG/2 ML VIAL ONE (12:27)
[2024-05-16] MEDS ORDERED: MORPHINE 4 MG/ML SYR ONE (12:28)
--- NOTE | 2024-05-16 12:32 | RAD REPORT ---
EXAMINATION: CT ABDOMEN AND PELVIS WITHOUT CONTRAST CLINICAL INDICATION: Abd pain;Abdominal distention TECHNIQUE: CT abdomen and pelvis was performed, without IV contrast, as per department protocol. Axia l, sagittal and coronal reconstructions were obtained. One or more of the following dose reduction techniques were used: Automated exposure control, adjustment of the mA and kV according to the patien t size, and iterative reconstruction. Unless otherwise specified, incidental findings do not require dedicated imaging follow-up. COMPARISON: 04/24/2024 FINDINGS: The lack of intravenous contrast limits the sensitivity of this exam for evaluation of solid visceral organs, vascular structures, and retroperitoneum. LOWER CHEST: Mild dependent interstitial edema suspected. Cardiac size is prominent. LIVER:Mildly prominent in size. Small gallstones may be present in the gallbladder. SPLEEN: Normal size. No focal lesion. PANCREAS: No mass, ductal dilation, or hillary-pancreatic fluid. ADRENALS: Normal; no mass. KIDNEYS AND URETERS: Markedly atrophic kidneys bilaterally. URINARY BLADDER: Normal contour. GASTROINTESTINAL TRACT: No evidence of bowel obstruction, significant free fluid, free air or abscess . Mildly thickened small bowel loops are seen in the left abdomen. APPENDIX: Normal appendix. LYMPH NODES: No lymphadenopathy. MUSCULOSKELETAL: No acute or suspicious osseous abnormality. ADDITIONAL FINDINGS: Mild ascites and diffuse anasarca pattern. IMPRESSION: Mildly thickened small bowel loops are present in the left abdomen likely a nonspecific enteritis. Mild ascites/anasarca. Possible small gallstones versus sludge.
[2024-05-16 12:56] LABS: Absolute Lymphocytes (CBC) 0.6 K/uL (0.7-4.9); Absolute Monocytes 0.6 K/uL (0.1-1.3); Absolute Neutrophil 4.9 K/uL (1.8-8.0); Basophils % 0.4 % (0-1.3); Eosinophils % 14.4 % (0-4.4); Hematocrit 34.7 % (36.0-45.0); MCH 28.3 pg (27.0-35.0); MCHC 31.7 g/dL (32.0-36.0); MCV 89.5 fL (80-100); MPV 8.3 fL (7.6-11.3); Monocytes % 8.6 % (3.3-12.3); Neutrophils % 68.6 % (41.7-73.7); Nucleated Red Blood Cells % 0.1 % (0-0); Platelets 162 thou/uL (152-406); RBC Red Blood Cell Count 3.88 M/uL (3.86-4.86); Red Cell Distribution Width 18.3 % (12.1-15.2)
[2024-05-16 13:58] LABS: AST/SGOT 17 U/L (15-37); Albumin/Globulin Ratio 0.9 (1.1-1.8); Alkaline Phosphatase 86 U/L (45-117); Anion Gap 13.2 mEq/L (5.0-15.0); BUN Blood Urea Nitrogen 25 mg/dL (7-18); Bicarbonate 25 mEq/L (21-32); Bilirubin Total 1.4 mg/dL (0.2-1.0); Globulin 3.2 g/dL (2.3-3.5); Glomerular Filtration Rate 8 ml/min (=/>90); Glucose Level 86 mg/dL (74-106); Lipase 12 U/L (13-75); Potassium 4.2 mEq/L (3.5-5.1); Protein, Total 6.2 g/dL (6.4-8.2); Sodium Level 135 mEq/L (136-145)
[2024-05-16 14:01] LABS: ALT/SGPT < 14 U/L (13-56)
--- NOTE | 2024-05-16 14:07 | ER ---
Nurse's Notes [facility] Name: Shaun Lopez Age: 33 yrs Sex: Female : 1990 Arrival Date: 05/16/2024 Time: 11:46 Bed DX3 Private MD: Diagnosis: Noninfective gastroenteritis and colitis, unspecified;Essential (primary) hypertension;Chronic Kidney Disease Presentation: 05/16 11:52 Chief complaint: Patient states: abdominal pain since last night, has nausea but no ko1 vomiting or diarrhea. Coronavirus screen: At this time, the client does not indicate any symptoms associated with coronavirus-19. Ebola Screen: No symptoms or risks identified at this time. Initial Sepsis Screen: Does the patient have a suspected source of infection? No. Patient's initial sepsis screen is negative. Initial Sepsis Screen: Does the patient meet any 2 criteria? No. Patient's initial sepsis screen is negative. Risk Assessment: Do you want to hurt yourself or someone else? Patient reports no desire to harm self or others. Onset of symptoms was May 16, 2024. 11:52 Method Of Arrival: Ambulatory ko1 11:52 Acuity: VERNA 3 ko1 Triage Assessment: 11:56 General: Appears uncomfortable, Behavior is cooperative, appropriate for age. Pain: ko1 Complains of pain in abdomen. GI: Reports lower abdominal pain, upper abdominal pain, nausea. 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 - Infectious Disease History:: Denies. - Social history:: Smoking status: Patient/guardian denies using tobacco, but has a distant history of tobacco abuse. Screenin:40 [facility] ED Fall Risk Assessment (Adult) History of falling in the last 3 months, tm6 including since admission No falls in past 3 months (0 pts) Confusion or Disorientation No (0 pts) Intoxicated or Sedated No (0 pts) Impaired Gait No (0 pts) Mobility Assist Device Used No (0 pt) Altered Elimination No (0 pt) Score/Fall Risk Level 0 - 2 = Low Risk Oriented to surroundings, Maintained a safe environment, Educated pt \T\ family on fall prevention, incl call for assistance when getting out of bed. Abuse screen: Denies threats or abuse. Denies injuries from another. Nutritional screening: No deficits noted. Tuberculosis screening: No symptoms or risk factors identified. Assessment: 12:40 General: Appears distressed, Behavior is cooperative, crying. Pain: Complains of pain tm6 in abdomen Pain currently is 10 out of 10 on a pain scale. Quality of pain is described as sharp, Pain began 1 day ago. Neuro: Level of Consciousness is awake, alert, obeys commands, Oriented to person, place, time, situation. Cardiovascular: Patient's skin is warm and dry. Respiratory: Airway is patent Respiratory effort is even, unlabored, Respiratory pattern is regular, symmetrical. GI: Abdomen is flat, non-distended, Bowel sounds present X 4 quads. Abd is soft Abdomen is tender to palpation X 4 quads. Reports lower abdominal pain, upper abdominal pain, Patient currently denies constipation, nausea, vomiting. : No signs and/or symptoms were reported regarding the genitourinary system. EENT: No signs and/or symptoms were reported regarding the EENT system. Derm: No signs and/or symptoms reported regarding the dermatologic system. Musculoskeletal: No signs and/or symptoms reported regarding the musculoskeletal system. 13:40 Reassessment: Patient and/or family updated on plan of care and expected duration. Pain tm6 level reassessed. Patient is alert, oriented x 3, equal unlabored respirations, skin warm/dry/pink. 14:35 Reassessment: patient moved to diagnostic chair to wait, as she stated she did not have tm6 someone to pick her up after receiving morphine. 15:25 Reassessment: patient appears drowsy, reports being sleepy. states pain has improved. ap3 15:26 General: provider notified of vitals. ap3 Vital Signs: 11:52 BP 219 / 141; Pulse 103; Resp 18; Temp 98.1; Pulse Ox 100% ; ko1 13:39 BP 218 / 134; Pulse 96; Pulse Ox 97% on R/A; MAP 155 mmHg; Pain 10/10; tm6 14:31 BP 218 / 134; Pulse 96; Resp 17; Temp 98.1; Pulse Ox 99% on R/A; MAP 155 mmHg; Pain tm6 5/10; 15:26 BP 244 / 146; Pulse 94; Pulse Ox 97% ; ap3 13:39 Pain Scale: Adult tm6 14:31 Pain Scale: Adult tm6 ED Course: 11:49 Patient arrived in ED. mg5 11:49 Carlitos Ruiz MD is Attending Physician. ec2 11:56 Triage completed. ko1 11:56 Arm band placed on right wrist. Patient placed in an exam room, on a stretcher, on ko1 chief dispatcher service, on pulse oximetry, Patient notified of wait time. 12:15 CT Abd/Pelvis - Without Contrast In Process Unspecified. EDMS 12:16 Baljinder Quan, JERALD is Primary Nurse. tm6 12:40 Patient has correct armband on for positive identification. Allergy band placed. Bed in tm6 low position. Call light in reach. Side rails up X 1. Provided Education on: use of call ch; plan of care. Client placed on continuous cardiac and pulse oximetry monitoring. NIBP monitoring applied. Pulse ox on. NIBP on. 12:40 Missed attempt(s): 22 gauge in right antecubital area. Bleeding controlled, band aid tm6 applied, catheter tip intact. 12:43 Missed attempt(s): 22 gauge in right forearm. Bleeding controlled, band aid applied, tm6 catheter tip intact. 13:24 Initial lab(s) drawn, by me, sent to lab. Inserted saline lock: 22 gauge in right hand, db using aseptic technique. Blood collected. Flushed with 10 mL NS. 14:35 No provider procedures requiring assistance completed. IV discontinued, intact, tm6 bleeding controlled, No redness/swelling at site. Pressure dressing applied. Administered Medications: 13:39 Drug: Ondansetron IVP 4 mg IVP once; over 2 minutes Route: IVP; Site: right hand; tm6 14:31 Follow up: Response: No adverse reaction tm6 13:39 Drug: morphine IVP or IV 4 mg IVP once over 4 mins Route: IVP; Infused Over: 4 mins; tm6 Site: right hand; 14:31 Follow up: Response: No adverse reaction tm6 Medication: 12:40 VIS not applicable for this client. tm6 Outcome: 14:07 Discharge ordered by . ec2 14:35 Discharged to home ambulatory, tm6 14:35 Condition: stable 14:35 Discharge instructions given to patient, Instructed on discharge instructions, follow up and referral plans. medication usage, Demonstrated understanding of instructions, follow-up care, medications, Prescriptions given X 1, 17:02 Patient left the ED. ap3 Signatures: Dispatcher [employer] Dai Jeffries RN RN ap3 Sandra Mock RN RN ko1 Ingris Rivera RN RN Anais De La Rosa mg5 Carlitos Ruiz MD MD ec2 Baljinder Quan RN RN tm6
--- NOTE | 2024-05-16 14:07 | EDPHYS ---
Physician Documentation [facility] Name: Shaun Lopez Age: 33 yrs Sex: Female : 1990 Arrival Date: 05/16/2024 Time: 11:46 Bed DX3 Private MD: ED Physician Carlitos Ruiz HPI: 05/16 12:01 This 33 yrs old Female presents to ER via Ambulatory with complaints of ec2 Abdominal Pain. 12:01 Patient arrives today for evaluation of generalized abdominal pain. Patient with ec2 history of ESRD, hypertension, Tuesday//Tuesday dialysis arrives today for generalized abdominal pain. Reports associated nausea. No vomiting. Makes minimal urine. No diarrhea symptoms. No cough or cold symptoms.. 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 - Infectious Disease History:: Denies. - Social history:: Smoking status: Patient/guardian denies using tobacco, but has a distant history of tobacco abuse. ROS: 12:01 Constitutional: as per hpi ec2 Exam: 12:01 Constitutional: GEN: NAD Head: atraumatic Eyes: EOMI Ears: External ears are ec2 normal. CV: Tachycardia LUNGS: no respiratory distress ABD: Soft, minimally distended, not guarding, not rigid, generally tender SKIN: no evidence of rashes MSK: no evidence of trauma Vital Signs: 11:52 BP 219 / 141; Pulse 103; Resp 18; Temp 98.1; Pulse Ox 100% ; ko1 13:39 BP 218 / 134; Pulse 96; Pulse Ox 97% on R/A; MAP 155 mmHg; Pain 10/10; tm6 14:31 BP 218 / 134; Pulse 96; Resp 17; Temp 98.1; Pulse Ox 99% on R/A; MAP 155 mmHg; Pain tm6 5/10; 15:26 BP 244 / 146; Pulse 94; Pulse Ox 97% ; ap3 13:39 Pain Scale: Adult tm6 14:31 Pain Scale: Adult tm6 MDM: 11:57 Medical Screening Exam initiated ec2 12:01 Data reviewed: vital signs, nurses notes. ED course: Patient arrives today for GI ec2 evaluation of abdominal pain. Examination remarkable for abdominal findings as above. Will obtain lab work, CT imaging as well as give the patient morphine and Zofran for pain and nausea. . 13:28 ED course: CBC nonactionable. CT abdomen pelvis shows likely enteritis with ascites ec2 noted.. 14:06 ED course: Metabolic profile shows expected renal dysfunction, lipase within normal ec2 ranges. Will discharge home, instructed patient on continued oral hydration given the enteritis.. 05/16 12:00 Order name: CBC with Diff; Complete Time: 13:14 ec2 05/16 12:00 Order name: CMP; Complete Time: 14:06 ec2 05/16 12:00 Order name: Lipase; Complete Time: 14:06 ec2 05/16 12:00 Order name: Urinalysis w/ reflexes; Complete Time: 14:24 ec2 05/16 12:00 Order name: Test, Serum; Complete Time: 13:27 ec2 05/16 12:00 Order name: CT Abd/Pelvis - Without Contrast; Complete Time: 13:14 ec2 05/16 12:00 Order name: IV Saline Lock; Complete Time: 13:26 ec2 05/16 12:00 Order name: Labs collected and sent; Complete Time: 12:51 ec2 Administered Medications: 13:39 Drug: Ondansetron IVP 4 mg IVP once; over 2 minutes Route: IVP; Site: right hand; tm6 14:31 Follow up: Response: No adverse reaction tm6 13:39 Drug: morphine IVP or IV 4 mg IVP once over 4 mins Route: IVP; Infused Over: 4 mins; tm6 Site: right hand; 14:31 Follow up: Response: No adverse reaction tm6 Disposition Summary: 05/16/24 14:07 Discharge Ordered Notes: Location: Home ec2 Condition: Stable ec2 Diagnosis - Noninfective gastroenteritis and colitis, unspecified ec2 - Essential (primary) hypertension ec2 - Chronic Kidney Disease ec2 Followup: ec2 - With: Private Physician - When: - Reason: Re-evaluation by your physician Discharge Instructions: - Discharge Summary Sheet ec2 - Viral Gastroenteritis, Adult, Qxes-cf-Dquh ec2 Forms: - Medication Reconciliation Form ec2 - Antibiotic Education ec2 - Prescription Opioid Use ec2 - Patient Portal Instructions ec2 - Leadership Thank You Letter ec2 Prescriptions: - dicyclomine 10 mg Oral capsule - take 1 capsule ORAL route 3 times per day; 20 capsule; Refills: 0, Product ec2 Selection Permitted Signatures: Dispatcher [employer] EDSandra Aponte RN RN ko1 Carlitos Ruiz MD MD ec2 Baljinder Quan RN RN tm6 Corrections: (The following items were deleted from the chart) 12:02 12:01 Constitutional: GEN: NAD Head: atraumatic Eyes: EOMI Ears: External ears are ec2 normal. CV: regular rate LUNGS: no respiratory distress ABD: Soft, minimally distended, not guarding, not rigid, generally tender SKIN: no evidence of rashes MSK: no evidence of trauma ec2
[2024-05-16 14:19] LABS: Sqamous Epithelial 20-50 /HPF (None Seen); Urine Bacteria <20 /HPF (<20); Urine Bilirubin NEGATIVE (Negative); Urine Blood 1+ (Negative); Urine Clarity Extremely Turbid (Clear); Urine Color Yellow (Yellow); Urine Culture Reflex Order NOT NEEDED; Urine Glucose NEGATIVE (Negative); Urine Ketones NEGATIVE (Negative); Urine Microscopic Reflex YN ORDER UMIC; Urine Mucus Slight /HPF (None Seen); Urine Nitrite NEGATIVE (Negative); Urine Protein 3+ (Negative); Urine RBC 21-50 /HPF (None Seen); Urine Urobilinogen Normal (Normal); Urine pH 8.5 (5.0-7.0)
[2024-05-16 17:24] VITALS: TEMP 98.1
[2024-05-16 17:28] VITALS: BP 244/146; O2SAT 97
== END 2024-05-16 17:02 | disposition home or self-care (01) ==
LOC: ER 11:46
DX: K52.9 Noninfective gastroenteritis and colitis, unspecified (principal); I12.0 Hypertensive chronic kidney disease with stage 5 chronic kidney disease or end stage renal disease; N18.6 End stage renal disease; Z99.2 Dependence on renal dialysis; Z94.0 Kidney transplant status
CPT/HCPCS: 85025; 81001; 36415; 84703; 83690; 80053; 74176; J2405

== ENCOUNTER 2024-06-05 14:30 | Emergency (ER) | payer OTHER ==
[2024-06-05] MEDS ORDERED: HYDRALAZINE HCL 20 MG/ML VIAL ONE ×3 (15:50→17:07)
[2024-06-05 15:54] LABS: Absolute Eosinophils 0.4 K/uL (0-0.5); Absolute Lymphocytes (CBC) 0.4 K/uL (0.7-4.9); Absolute Monocytes 0.4 K/uL (0.1-1.3); Absolute Neutrophil 2.2 K/uL (1.8-8.0); Basophils % 0.7 % (0-1.3); Eosinophils % 10.5 % (0-4.4); Hematocrit 30.6 % (36.0-45.0); Hemoglobin 10.1 g/dL (12.0-15.0); Lymphocytes % 13.2 % (15.3-44.8); MCHC 33.1 g/dL (32.0-36.0); MCV 87.6 fL (80-100); MPV 8.1 fL (7.6-11.3); Monocytes % 10.8 % (3.3-12.3); Neutrophils % 64.8 % (41.7-73.7); Nucleated Red Blood Cells % 0.2 % (0-0); Platelets 111 thou/uL (152-406); RBC Red Blood Cell Count 3.49 M/uL (3.86-4.86); Red Cell Distribution Width 17.6 % (12.1-15.2)
[2024-06-05 16:07] LABS: Anion Gap 10.5 mEq/L (5.0-15.0); Potassium 3.5 mEq/L (3.5-5.1)
--- NOTE | 2024-06-05 17:21 | EDPHYS ---
Physician Documentation [facility] Name: Shaun Lopez Age: 33 yrs Sex: Female : 1990 Arrival Date: 06/05/2024 Time: 14:30 Bed 19 Private MD: ED Physician Daquan Ellington HPI: 06/05 15:00 This 33 yrs old Female presents to ER via Ambulatory with complaints of High Blood bo1 Pressure. 15:00 Onset: The symptoms/episode began/occurred today, Prior to dialysis BP was elevated and bo1 after. Pt denies missed doses of the HBP med. Severity of symptoms: At its worst the blood pressure was severe, earlier today, 245/136 currently. 17:01 Associated signs and symptoms: Pertinent positives: weakness, Post dialysis, Pertinent bo1 negatives: chest pain, nausea, visual changes. Recent hx of bradycardia and intubation, being sent to the med ctr. Historical: - Allergies: 14:44 Adhesives; kc6 14:44 AVOCADO (LAURUS PERSEA); kc6 14:44 Bactrim; kc6 14:44 Latex; kc6 14:45 Adhesives; kc6 14:45 AVOCADO (LAURUS PERSEA); kc6 14:45 Bactrim; kc6 14:45 Latex; kc6 - PMHx: 14:44 brain tumor-removed; Dialysis; End stage renal disease; Hypertension; Migraines; kc6 Seizures; 14:45 brain tumor-removed; Dialysis; End stage renal disease; Hypertension; Migraines; kc6 Seizures; - PSHx: 14:44 kidney transplant; brain SX x 2; section; donor kidney removed; Fistula- L kc6 arm; kidney biopsy; 14:45 kidney transplant; kidney biopsy; Fistula- L arm; donor kidney removed; kc6 section; brain SX x 2; - Immunization history:: Adult Immunizations up to date. - Infectious Disease History:: Denies. - Social history:: Smoking status: Patient denies any tobacco usage or history of. ROS: 16:32 Constitutional: Negative for fever, chills, and weight loss bo1 16:32 Constitutional: Negative for chills, fever, 16:32 Constitutional: Positive for Weakness after dialysis - 3.5 hours today, 16:32 Neck: Negative for pain with movement, pain at rest, 16:32 Cardiovascular: Negative for chest pain, 16:32 Respiratory: Negative for shortness of breath, 16:32 Abdomen/GI: Negative for abdominal pain, nausea and vomiting, 16:32 Skin: Negative for rash, 16:32 All other systems are negative, Exam: 15:09 ECG was reviewed by the Attending Physician. bo1 16:59 Constitutional: This is a well developed, well nourished patient who is awake, alert, bo1 and in no acute distress. 16:59 Head/face: Exam is negative for acute changes, swelling, 16:59 Neck: External neck: is normal, no acute changes, 16:59 Cardiovascular: Rate: normal, Rhythm: regular, Pulses: no pulse deficits are appreciated, 16:59 Respiratory: the patient does not display signs of respiratory distress, Respirations: normal, no acute changes, Breath sounds: are clear throughout, 16:59 Abdomen/GI: Palpation: nontender, 16:59 Musculoskeletal/extremity: Dialysis site at the LUE is normal. 16:59 Skin: no rash present. 16:59 Skin: Turgor: is good, Vital Signs: 14:44 BP 245 / 136; Pulse 62; Resp 16 S; Pulse Ox 100% on R/A; Pain 0/10; kc6 15:01 BP 233 / 146; Pulse 56; Resp 17; Temp 98; Pulse Ox 98% on R/A; rs5 16:01 BP 220 / 141; Pulse 76; Resp 17; Pulse Ox 98% on R/A; rs5 16:17 BP 190 / 122; Pulse 74; Resp 17; Pulse Ox 99% on R/A; rs5 16:40 BP 181 / 112; Pulse 68; Resp 17; Pulse Ox 98% on R/A; rs5 17:01 BP 215 / 118; Pulse 71; Resp 17; Pulse Ox 98% on R/A; rs5 17:29 BP 179 / 105; Pulse 74; Resp 17; Pulse Ox 98% on R/A; rs5 14:44 Pain Scale: Adult kc6 MDM: 15:01 Medical Screening Exam initiated bo1 17:02 Differential diagnosis: hypertensive crisis. Data reviewed: vital signs, old medical bo1 records, lab test result(s), EKG. ED course: Pt will not get beta-blockers for the HTN noted on her dialysis record. Last dialysis on Jun 02 showed normal BPs. Pt will be given hydralazine IV.. 06/05 15:02 Order name: Basic Metabolic Panel; Complete Time: 16:09 bo1 06/05 15:02 Order name: CBC with Diff; Complete Time: 16:09 bo1 06/05 15:02 Order name: IV Saline Lock; Complete Time: 15:47 bo1 06/05 15:02 Order name: Labs collected and sent; Complete Time: 15:47 bo1 EC: Rate is 63 beats/min. Rhythm is regular. QRS [place] is Normal. [place] interval is normal. QRS bo1 interval is normal. QT interval is normal. No Q waves. T waves are Normal. No ST changes noted. Clinical impression: Normal ECG and LVH. Interpreted by me. Reviewed by me. Administered Medications: 15:50 Drug: hydrALAZINE IVP 10 mg IVP once Route: IVP; Site: right hand; rs5 16:05 Follow up: Response: No adverse reaction; Blood pressure is lowered rs5 16:17 Drug: hydrALAZINE IVP 10 mg IVP once Route: IVP; Site: right hand; rs5 16:44 Follow up: Response: No adverse reaction; Blood pressure is lowered rs5 17:01 Drug: hydrALAZINE IVP 10 mg IVP once Route: IVP; Site: right hand; rs5 17:20 Follow up: Response: No adverse reaction; Blood pressure is lowered rs5 Disposition Summary: 06/05/24 17:20 Discharge Ordered Notes: Location: Home bo1 Problem: chronic bo1 Symptoms: have improved bo1 Condition: Stable bo1 Diagnosis - Hypertension secondary to other renal disorders bo1 Followup: bo1 - With: Private Physician - When: Upon discharge from the Emergency Department - Reason: Recheck today's complaints, Continuance of care Discharge Instructions: - Discharge Summary Sheet bo1 - Hypertension, Adult, [id number] bo1 Forms: - Medication Reconciliation Form bo1 - Antibiotic Education bo1 - Prescription Opioid Use bo1 - Patient Portal Instructions bo1 - Leadership Thank You Letter bo1 Prescriptions: - Hydralazine 10 mg Oral tablet - take 1 tablet ORAL route 4 times per day with food for BP greater than 160/90; bo1 30 tablet; Refills: 0, Product Selection Permitted Signatures: Dispatcher [employer] Antonietta Mccarty, RN RN kc6 Marquez Bower, RN RN rs5 Daquan Ellington MD MD bo1
--- NOTE | 2024-06-05 17:21 | ER ---
Nurse's Notes [facility] Name: Shaun Lopez Age: 33 yrs Sex: Female : 1990 Arrival Date: 06/05/2024 Time: 14:30 Bed 19 Private MD: Diagnosis: Hypertension secondary to other renal disorders Presentation: 06/05 14:44 Chief complaint: Patient states: she was sent here by dialysis for HTN. pt states she kc6 received her full session but still wanted her to come get checked out. Coronavirus screen: At this time, the client does not indicate any symptoms associated with coronavirus-19. Ebola Screen: No symptoms or risks identified at this time. Initial Sepsis Screen: Does the patient meet any 2 criteria? No. Patient's initial sepsis screen is negative. Does the patient have a suspected source of infection? No. Patient's initial sepsis screen is negative. Risk Assessment: Do you want to hurt yourself or someone else? Patient reports no desire to harm self or others. Onset of symptoms was June 05, 2024. 14:44 Method Of Arrival: Ambulatory kc6 14:44 Acuity: VERNA 2 kc6 Triage Assessment: 14:40 General: Appears in no apparent distress. comfortable, Behavior is calm, cooperative. rs5 Historical: - Allergies: 14:44 Adhesives; kc6 14:44 AVOCADO (LAURUS PERSEA); kc6 14:44 Bactrim; kc6 14:44 Latex; kc6 14:45 Adhesives; kc6 14:45 AVOCADO (LAURUS PERSEA); kc6 14:45 Bactrim; kc6 14:45 Latex; kc6 - PMHx: 14:44 brain tumor-removed; Dialysis; End stage renal disease; Hypertension; Migraines; kc6 Seizures; 14:45 brain tumor-removed; Dialysis; End stage renal disease; Hypertension; Migraines; kc6 Seizures; - PSHx: 14:44 kidney transplant; brain SX x 2; section; donor kidney removed; Fistula- L kc6 arm; kidney biopsy; 14:45 kidney transplant; kidney biopsy; Fistula- L arm; donor kidney removed; kc6 section; brain SX x 2; - Immunization history:: Adult Immunizations up to date. - Infectious Disease History:: Denies. - Social history:: Smoking status: Patient denies any tobacco usage or history of. Screenin:44 [facility] ED Fall Risk Assessment (Adult) History of falling in the last 3 months, kc6 including since admission No falls in past 3 months (0 pts) Confusion or Disorientation No (0 pts) Intoxicated or Sedated No (0 pts) Impaired Gait No (0 pts) Mobility Assist Device Used No (0 pt) Altered Elimination No (0 pt) Score/Fall Risk Level 0 - 2 = Low Risk Oriented to surroundings, Maintained a safe environment. Abuse screen:. Nutritional screening: No deficits noted. Tuberculosis screening: No symptoms or risk factors identified. Assessment: 14:36 General: Appears uncomfortable, ill. Pain: Denies pain. Neuro: Level of Consciousness rs5 is awake, alert, obeys commands, Oriented to person, place, time, situation. Cardiovascular: Patient's skin is warm and dry. Respiratory: Airway is patent Respiratory effort is even, unlabored, Respiratory pattern is regular, symmetrical. GI: Abdomen is round non-distended, Abd is soft and non tender X 4 quads. : No signs and/or symptoms were reported regarding the genitourinary system. EENT: No signs and/or symptoms were reported regarding the EENT system. Derm: Skin is intact, Skin is pink, warm \T\ dry. Musculoskeletal: Range of motion: intact in all extremities. 14:37 Reassessment: provider notified of elevated BP. rs5 15:00 Reassessment: provider notified of elevated BP. rs5 15:01 Reassessment: RN at bedside for IV insertion . rs5 15:01 Reassessment: Patient and/or family updated on plan of care and expected duration. Pain rs5 level reassessed. Patient is alert, oriented x 3, equal unlabored respirations, skin warm/dry/pink. 16:05 Reassessment: Patient and/or family updated on plan of care and expected duration. Pain rs5 level reassessed. Patient is alert, oriented x 3, equal unlabored respirations, skin warm/dry/pink. 17:25 Reassessment: provider aware of elevated BP readings, pt up for discharge . rs5 17:25 Reassessment: Patient and/or family updated on plan of care and expected duration. Pain rs5 level reassessed. Patient is alert, oriented x 3, equal unlabored respirations, skin warm/dry/pink. Vital Signs: 14:44 BP 245 / 136; Pulse 62; Resp 16 S; Pulse Ox 100% on R/A; Pain 0/10; kc6 15:01 BP 233 / 146; Pulse 56; Resp 17; Temp 98; Pulse Ox 98% on R/A; rs5 16:01 BP 220 / 141; Pulse 76; Resp 17; Pulse Ox 98% on R/A; rs5 16:17 BP 190 / 122; Pulse 74; Resp 17; Pulse Ox 99% on R/A; rs5 16:40 BP 181 / 112; Pulse 68; Resp 17; Pulse Ox 98% on R/A; rs5 17:01 BP 215 / 118; Pulse 71; Resp 17; Pulse Ox 98% on R/A; rs5 17:29 BP 179 / 105; Pulse 74; Resp 17; Pulse Ox 98% on R/A; rs5 14:44 Pain Scale: Adult kc6 ED Course: 14:35 Patient arrived in ED. al6 14:37 Marquez Bower, JERALD is Primary Nurse. rs5 14:44 Triage completed. kc6 14:44 Arm band placed on. EKG completed in triage. Results shown to MD. kc6 14:44 Patient has correct armband on for positive identification. Placed in gown. Bed in low kc6 position. Call light in reach. Side rails up X 1. Adult w/ patient. campus monitor on. Pulse ox on. NIBP on. Door closed. Noise minimized. Lights dimmed. Warm blanket given. Pillow given. 14:44 Patient maintains SpO2 saturation greater than 95% on room air. kc6 14:48 Daquan Ellington MD is Attending Physician. bo1 14:55 Missed attempt(s): 22 gauge in right antecubital area. rs5 15:15 Missed attempt(s): 22 gauge in right forearm. rs5 15:42 Initial lab(s) drawn, by me, sent to lab. Inserted saline lock: 20 gauge in right hand, aa5 using aseptic technique. Blood collected. Flushed with 10 mL NS. 17:35 Provided Education on: discharge instructions. rs5 17:44 No provider procedures requiring assistance completed. rs5 17:45 IV discontinued, No redness/swelling at site. Pressure dressing applied. rs5 Administered Medications: 15:50 Drug: hydrALAZINE IVP 10 mg IVP once Route: IVP; Site: right hand; rs5 16:05 Follow up: Response: No adverse reaction; Blood pressure is lowered rs5 16:17 Drug: hydrALAZINE IVP 10 mg IVP once Route: IVP; Site: right hand; rs5 16:44 Follow up: Response: No adverse reaction; Blood pressure is lowered rs5 17:01 Drug: hydrALAZINE IVP 10 mg IVP once Route: IVP; Site: right hand; rs5 17:20 Follow up: Response: No adverse reaction; Blood pressure is lowered rs5 Medication: 15:25 VIS not applicable for this client. rs5 Outcome: 17:20 Discharge ordered by . bo1 17:48 Patient left the ED. rs5 17:48 Discharged to home via wheelchair, with family, rs5 17:48 Condition: stable 17:48 Instructed on discharge instructions, follow up and referral plans. medication usage, Demonstrated understanding of instructions, follow-up care, medications, Prescriptions given X 1, Signatures: Guerline Conklin, RN RN aa5 Antonietta Roe RN RN kc6 Marquez Bower RN RN rs5 Daquan Ellington MD MD bo1 Erma Pagan6 Corrections: (The following items were deleted from the chart) 18:51 18:00 No provider procedures requiring assistance completed. rs5 rs5 18:51 18:38 Patient left the ED. rs5 rs5 18:54 17:29 BP 193 / 113; Pulse 71bpm; Resp 17bpm; Pulse Ox 98% RA; rs5 rs5 18:55 15:01 BP 233 / 146; Pulse 56bpm; Resp 17bpm; Pulse Ox 98% RA; rs5 rs5
[2024-06-06 00:57] VITALS: O2SAT 98
[2024-06-06 01:00] VITALS: BP 193/113
== END 2024-06-05 18:38 | disposition home or self-care (01) ==
LOC: ER 14:30
DX: I15.8 Other secondary hypertension (principal); N18.6 End stage renal disease; Z99.2 Dependence on renal dialysis; Z94.0 Kidney transplant status
CPT/HCPCS: 93005; 85025; 80048; 36415; 96374; 99285; J0360 ×3

== ENCOUNTER 2024-06-25 10:35 | Inpatient (IN) | payer OTHER ==
--- NOTE | 2024-06-25 11:15 | RAD REPORT ---
EXAM: CT Ct Stroke Brain Wo Cont HISTORY: STROKE ALERT COMPARISON: 01/11/2024 TECHNIQUE: Multiple contiguous axial images were obtained for a CT of the brain without contrast. Sag ittal and coronal reformats were performed. One or more of the following dose reduction techniques were used: Automated exposure control, adjus tment of the mA and kV according to patient size, and iterative reconstruction. Unless otherwise specified, incidental findings do not require dedicated imaging follow-up. FINDINGS: Motion artifact limits evaluation. No evidence of hydrocephalus, intracranial hemorrhage, or extra-axial fluid collection. Right anterior frontal/basal encephalomalacia, stable in extent. Otherwise Mild brain atrophy with mi ld periventricular and deep white matter chronic microvascular ischemic changes present. The calvarium is intact. The visualized paranasal sinuses and mastoid air cells are essentially clear . IMPRESSION: No evidence of acute intracranial abnormality. Stable chronic findings as above. THIS REPORT CONTAINS FINDINGS THAT MAY BE CRITICAL TO PATIENT CARE. The findings were verbally commun icated via telephone to Javon Rodriguez MD on 06/25/2024 11:11 AM.
[2024-06-25 11:16] LABS: Absolute Basophils 0.1 K/uL (0-0.5); Absolute Eosinophils 0.5 K/uL (0-0.5); Absolute Monocytes 0.2 K/uL (0.1-1.3); Absolute Neutrophil 3.2 K/uL (1.8-8.0); Basophils % 1.4 % (0-1.3); Hematocrit 30.2 % (36.0-45.0); Hemoglobin 9.6 g/dL (12.0-15.0); Lymphocytes % 19.9 % (15.3-44.8); MCH 29.1 pg (27.0-35.0); MCHC 31.9 g/dL (32.0-36.0); MCV 91.4 fL (80-100); MPV 9.3 fL (7.6-11.3); Monocytes % 4.5 % (3.3-12.3); Neutrophils % 64.2 % (41.7-73.7); Nucleated Red Blood Cells % 0.2 % (0-0); Platelets 146 thou/uL (152-406); RBC Red Blood Cell Count 3.31 M/uL (3.86-4.86); Red Cell Distribution Width 19.8 % (12.1-15.2)
[2024-06-25 11:22] LABS: PT Prothrombin Time 16.3 SECONDS (9.4-12.5); PTT, Activated Partial Thromb 31.5 SECONDS (24.3-36.9); Protime INR 1.47
[2024-06-25] MEDS ORDERED: Nicardipine/NS 25 MG/250 ML KIT IV ONE ×2 (11:24→15:22)
[2024-06-25 11:36] LABS: Anion Gap 15.8 mEq/L (5.0-15.0); Magnesium 2.4 mg/dL (1.6-2.4); Potassium 4.8 mEq/L (3.5-5.1); Troponin High Sensitivity 21.9 pg/mL (<58.9)
--- NOTE | 2024-06-25 13:04 | RAD REPORT ---
Procedure: Chest Single View HISTORY: Hypertension COMPARISON: May 2024 FINDINGS: Pulmonary vascular congestion is present. No significant pleural effusion noted. The heart is markedly enlarged.
--- NOTE | 2024-06-25 14:10 | EDPHYS ---
Physician Documentation [facility] Name: Shaun Lopez Age: 33 yrs Sex: Female : 1990 Arrival Date: 06/25/2024 Time: 10:35 Bed 5 Private MD: ED Physician Daquan Ellington HPI: 06/25 11:26 This 33 yrs old Female presents to ER via EMS with complaints of Altered Mental Status. bo1 11:26 The patient presents with trouble concentrating, Since of this past week. Pt bo1 was at dialysis, and BP was too high, pt then sent to the ER. Onset: The symptoms/episode began/occurred gradually, Pt was taken to dialysis by her sister this AM. Mother is here now but doesn't think pt is significantly different from baseline. The patient has experienced similar episodes in the past, today's symptoms are similar, Hx of renal transplant. Historical: - Allergies: 10:49 Adhesives; ap3 10:49 AVOCADO (LAURUS PERSEA); ap3 10:49 Bactrim; ap3 10:49 Latex; ap3 - PMHx: 10:49 brain tumor-removed; Dialysis; End stage renal disease; Hypertension; Migraines; ap3 Seizures; - Immunization history:: Adult Immunizations not up to date. - Infectious Disease History:: Denies. - Social history:: Smoking status: Patient denies any tobacco usage or history of. Patient/guardian denies using alcohol, street drugs. ROS: 14:15 Constitutional: Negative for fever, chills, and weight loss bo1 14:15 Neck: Negative for pain with movement, pain at rest, 14:15 Cardiovascular: Negative for chest pain, 14:15 Respiratory: Negative for shortness of breath, 14:15 Neuro: Positive for altered mental status, Pt appears to be "slower" than normal since of this past week, 14:15 Psych: Positive for Expressing to mother that "I am tired of life.", 14:15 All other systems are negative, Exam: 11:25 ECG was reviewed by the Attending Physician. bo1 14:16 Constitutional: This is a patient who is awake, alert, and in mild acute distress. bo1 14:16 Constitutional: The patient appears alert, awake, Pale and verbal but slightly "absent." 14:16 Eyes: Conjunctiva: pale, 14:16 Cardiovascular: Rate: normal, Rhythm: regular, Pulses: no pulse deficits are appreciated, Dialysis shunt: with palpable thrill, with auscultated bruit, no bleeding noted 14:16 Respiratory: the patient does not display signs of respiratory distress, Respirations: normal, no acute changes, 14:16 Abdomen/GI: Inspection: abdomen appears normal, 14:16 Neuro: Pt is unable to recall mother's month and date of , 14:16 Psych: Behavior/mood is cooperative, depressed, Affect is flat, Vital Signs: 10:48 Pulse 87; Resp 18; ap3 11:11 BP 243 / 159; Pulse 78; Resp 17; Weight 52.16 kg; ap3 11:19 Temp 97.6(O); ap3 11:20 BP 241 / 157; ap3 11:35 BP 247 / 167; Pulse 77; Pulse Ox 99% on R/A; ap3 11:42 BP 245 / 154; Pulse 79; ap3 11:44 BP 214 / 134; Pulse 82; ap3 11:51 BP 216 / 146; Pulse 87; ap3 11:57 BP 188 / 130; Pulse 91; ap3 12:03 BP 200 / 130; Pulse 94; Pulse Ox 98% on R/A; ap3 12:13 BP 186 / 128; Pulse 93; Pulse Ox 100% on R/A; ap3 12:16 BP 197 / 125; Pulse 95; ap3 12:26 BP 204 / 137; Pulse 96; Pulse Ox 100% on R/A; ap3 12:35 BP 189 / 122; Pulse 93; ap3 12:45 BP 194 / 119; Pulse 100; ap3 12:55 BP 191 / 119; Pulse 96; ap3 13:15 BP 175 / 112; Pulse 100; Pulse Ox 100% ; ap3 13:20 BP 159 / 102; Pulse 100; ap3 13:30 BP 166 / 105; Pulse 99; ap3 13:35 BP 166 / 110; Pulse 100; Pulse Ox 100% ; ap3 13:40 BP 168 / 105; Pulse 100; Pulse Ox 100% ; ap3 13:51 BP 168 / 105; Pulse 94; Pulse Ox 99% on R/A; ap3 13:53 BP 167 / 113; Pulse 94; Pulse Ox 100% on R/A; ap3 14:00 BP 177 / 117; Pulse 99; Pulse Ox 100% ; ap3 14:10 BP 177 / 127; Pulse 99; Pulse Ox 100% ; ap3 14:20 BP 167 / 121; Pulse 100; Pulse Ox 99% ; ap3 14:25 BP 184 / 113; Pulse 98; Pulse Ox 98% ; ap3 14:30 BP 165 / 109; Pulse 100; Pulse Ox 100% ; ap3 14:48 BP 172 / 111; Pulse 100; Pulse Ox 100% ; ap3 15:14 BP 117 / 119; Pulse 93; Resp 15; Pulse Ox 99% ; ko1 15:20 BP 168 / 113; Pulse 93; Pulse Ox 98% ; ap3 15:37 BP 176 / 110; Pulse 96; Pulse Ox 98% on R/A; ap3 15:51 BP 167 / 111; Pulse 97; Pulse Ox 98% on R/A; ap3 16:15 BP 181 / 115; ap3 16:30 BP 178 / 110; Pulse 96; Pulse Ox 100% ; ap3 16:45 BP 179 / 117; Pulse 91; Pulse Ox 100% ; ap3 16:55 BP 178 / 117; Pulse 93; Pulse Ox 100% on R/A; ap3 17:00 BP 189 / 113; Pulse 87; Pulse Ox 100% ; ap3 17:16 BP 169 / 104; Pulse 98; Pulse Ox 100% ; ap3 18:00 BP 154 / 91; Pulse 94; Pulse Ox 98% on R/A; ap3 18:12 BP 148 / 89; Pulse 93; Pulse Ox 100% on R/A; ap3 18:40 BP 163 / 103; Pulse 95; Pulse Ox 100% on R/A; ap3 18:48 BP 158 / 97; Pulse 92; Pulse Ox 98% on R/A; ap3 19:25 BP 170 / 107; Pulse 94; Resp 22; Pulse Ox 99% ; jj7 MDM: 10:42 Medical Screening Exam initiated bo1 14:10 Differential Diagnosis: CVA, Encephalopathy - HTN: ESRD Stage 4. bo1 14:11 Data reviewed: vital signs, old medical records, lab test result(s), EKG, radiologic bo1 studies, CT scan. 14:11 Consideration of Admission/Observation Patient was admitted/placed on observation. bo1 Consulted with renal med - Aglieco DO. Management of patient was discussed with the following: Hospitalist: Dr iNng NOLAN. Crown Presser: Dr Petra NOLAN. ED course: Pt has improved on the cardene drip and BP is now 177/118. 06/25 10:43 Order name: Basic Metabolic Panel; Complete Time: 11:41 bo1 06/25 10:43 Order name: CBC with Diff; Complete Time: 11:41 bo1 06/25 10:43 Order name: High Sensitivity Troponin; Complete Time: 11:41 06/25 10:43 Order name: Magnesium; Complete Time: 11:41 1 06/25 10:43 Order name: Protime (+inr); Complete Time: 11:41 1 06/25 10:43 Order name: Ptt, Activated; Complete Time: 11:41 06/25 15:51 Order name: Urinalysis w/ reflexes EDMS 06/25 15:51 Order name: CBC with Automated Diff EDMS 06/25 15:51 Order name: CBC with Automated Diff EDMS 06/25 15:51 Order name: Comprehensive Metabolic Panel EDMS 06/25 15:51 Order name: Comprehensive Metabolic Panel EDMS 06/25 15:51 Order name: Magnesium EDMS 06/25 15:51 Order name: Magnesium EDMS 06/25 15:51 Order name: Phosphorus EDMS 06/25 15:51 Order name: Phosphorus EDMS 06/25 19:08 Order name: Ammonia EDMS 06/25 19:12 Order name: Liver (Hepatic) Function EDMS 06/25 20:00 Order name: Valproic Acid (Depakene) Level EDMS 06/25 10:43 Order name: CT Stroke Brain w/o Contrast; Complete Time: 11:17 1 06/25 10:43 Order name: Stroke CXR 1 View; Complete Time: 13:18 1 06/25 15:51 Order name: CONS Physician Consult EDMS 06/25 10:43 Order name: Accucheck; Complete Time: 11:38 06/25 10:43 Order name: Cardiac monitoring; Complete Time: 10:47 06/25 10:43 Order name: EKG - Nurse/Tech; Complete Time: 11:17 bo06/25 10:43 Order name: IV Saline Lock; Complete Time: 10:47 06/25 10:43 Order name: Labs collected and sent; Complete Time: 11:12 bo1 06/25 10:43 Order name: NPO; Complete Time: 10:47 bo1 06/25 10:43 Order name: O2 Per Protocol; Complete Time: 10:47 bo1 06/25 10:43 Order name: O2 Sat Monitoring; Complete Time: 10:47 bo1 06/25 10:43 Order name: Stroke Swallow Screen; Complete Time: 11:12 bo1 EC:25 Rate is 77 beats/min. Rhythm is regular. QRS [place] is Normal. [place] interval is normal. QRS bo1 interval is normal. QT interval is normal. No Q waves. T waves are Normal. No ST changes noted. Clinical impression: Normal ECG, LVH, and left ant fasicular block. Interpreted by me. Reviewed by me. Administered Medications: 11:33 Drug: niCARdipine IV 5 mg/hr IV at 5 mg/hr See Administration Instructions; (Standard ap3 concentration 25 mg / 250 mL NS); Recommended max rate 15 mg/hr; Titrate 2.5 mg/hr as often as every 15 minutes to achieve goal (see titration policy); Goal parameter SBP less than 160 mmHg Route: IV; Rate: 2.5 mg/hr; Site: right antecubital; 11:47 Follow up: Rate change 5 mg/hr ap3 11:55 Follow up: Rate change 7.5 mg/hr ko1 13:20 Follow up: Rate change 5 mg/hr ap3 18:13 Follow up: Rate change 2.5 mg/hr ap3 20:13 Follow up: IV Status: Infusion continued upon admission [id number] Disposition Summary: 06/25/24 14:09 Hospitalization Ordered Notes: Hospitalization Status: Inpatient Admission bo1 Provider: Clovis Barclay Location: Intensive Care Unit bo1 Condition: Fair bo1 Problem: chronic bo1 Symptoms: have improved bo1 Bed/Room Type: Standard bo1 Room Assignment: 7-(06/25/24 19:07) rv1 Diagnosis - Hypertension secondary to other renal disorders bo1 - Dependence on renal dialysis bo1 - Hypertensive encephalopathy bo1 Forms: - Medication Reconciliation Form bo1 - SBAR form bo1 - Leadership Thank You Letter bo1 Signatures: Dispatcher [employer] Dai Jeffries RN RN ap3 Gini Aguilar RN RN jj7 Abiola Roblero rv1 Daquan Ellington MD MD bo1 Sandra Mock RN ko1 Corrections: (The following items were deleted from the chart) 10:43 10:43 BASIC METABOLIC PANEL+C.LAB.BRZ ordered. EDMS EDMS 10:43 10:43 CBC+H.LAB.BRZ ordered. EDMS EDMS 10:43 10:43 Troponin High Sensitivity+C.LAB.BRZ ordered. EDMS EDMS 10:43 10:43 MAGNESIUM+C.LAB.BRZ ordered. EDMS EDMS 10:43 10:43 PROTIME (+INR)+COAG.LAB.BRZ ordered. EDMS EDMS 10:43 10:43 PTT, ACTIVATED+COAG.LAB.BRZ ordered. EDMS EDMS 10:44 10:44 Chest Single View+RAD.RAD.BRZ ordered. EDMS EDMS 19:07 14:09 bo1 rv1
--- NOTE | 2024-06-25 14:10 | ER ---
Nurse's Notes [facility] Name: Shaun Lopez Age: 33 yrs Sex: Female : 1990 Arrival Date: 06/25/2024 Time: 10:35 Bed 5 Private MD: Diagnosis: Hypertension secondary to other renal disorders;Dependence on renal dialysis;Hypertensive encephalopathy Presentation: 06/25 10:48 Chief complaint: EMS states: they were called for a patient who was hypertensive at ap3 dialysis, and "not acting right.". Coronavirus screen: At this time, the client does not indicate any symptoms associated with coronavirus-19. Ebola Screen: No symptoms or risks identified at this time. Initial Sepsis Screen: Does the patient meet any 2 criteria? No. Patient's initial sepsis screen is negative. Does the patient have a suspected source of infection? No. Patient's initial sepsis screen is negative. Risk Assessment: Do you want to hurt yourself or someone else? Patient reports no desire to harm self or others. Onset of symptoms is unknown. Care prior to arrival: IV initiated. 20 GA, in the right antecubital area. 10:48 Method Of Arrival: EMS: [facility] ap3 10:48 Acuity: VERNA 2 ap3 Triage Assessment: 10:49 General: Appears comfortable, Behavior is calm, cooperative. Pain: Denies pain. Neuro: ap3 Level of Consciousness is awake, alert, obeys commands, Oriented to person, place, time, patient is unable to give mothers date of . patient is unable to give appropriate time line for how long she has been on dialysis. patient is taking time to answer questions. . Speech slow to respond. Cardiovascular: Patient's skin is warm and dry. Respiratory: Airway is patent Respiratory effort is even, unlabored, Respiratory pattern is regular, symmetrical. Historical: - Allergies: 10:49 Adhesives; ap3 10:49 AVOCADO (LAURUS PERSEA); ap3 10:49 Bactrim; ap3 10:49 Latex; ap3 - PMHx: 10:49 brain tumor-removed; Dialysis; End stage renal disease; Hypertension; Migraines; ap3 Seizures; - Immunization history:: Adult Immunizations not up to date. - Infectious Disease History:: Denies. - Social history:: Smoking status: Patient denies any tobacco usage or history of. Patient/guardian denies using alcohol, street drugs. Screenin:51 Abuse screen: Denies threats or abuse. Nutritional screening: No deficits noted. ap3 Tuberculosis screening: No symptoms or risk factors identified. 11:12 [place] Swallow Protocol Brief Cognitive Screen What is your name? Normal, Where are you ap3 right now? What year is it? Normal. Oral Mechanism Examination Facial Symmetry: Normal, Motion: Normal, Lip Closure: Normal, Oral Mechanism Result: Normal. 3 oz Water Swallow Challenge: Pt able to drink all water without stopping, coughing, choking or throat clearing: Yes Result: PASS Notified: Daquan Ellington MD. 19:51 [facility] ED Fall Risk Assessment (Adult) History of falling in the last 3 months, jj7 including since admission No falls in past 3 months (0 pts) Confusion or Disorientation Yes (5 pts) Intoxicated or Sedated No (0 pts) Impaired Gait No (0 pts) Mobility Assist Device Used No (0 pt) Altered Elimination No (0 pt) Score/Fall Risk Level 0 - 2 = Low Risk Oriented to surroundings, Maintained a safe environment, Educated pt \\T\\ family on fall prevention, incl call for assistance when getting out of bed. Assessment: 10:50 General: mother reports the patients last known normal was 06/21/24. ap3 11:05 Reassessment: Patient and/or family updated on plan of care and expected duration. Pain ap3 level reassessed. Patient is alert, oriented x 3, equal unlabored respirations, skin warm/dry/pink. 11:15 Reassessment: Patient and/or family updated on plan of care and expected duration. Pain ap3 level reassessed. Patient is alert, oriented x 3, equal unlabored respirations, skin warm/dry/pink. 11:37 Reassessment: Patient and/or family updated on plan of care and expected duration. Pain ap3 level reassessed. Patient is alert, oriented x 3, equal unlabored respirations, skin warm/dry/pink. General: Appears in no apparent distress. Behavior is calm, cooperative. Neuro: Level of Consciousness is awake, alert, obeys commands, Oriented to person, place. 12:15 Reassessment: Patient and/or family updated on plan of care and expected duration. Pain ap3 level reassessed. Patient is alert, oriented x 3, equal unlabored respirations, skin warm/dry/pink. 12:30 Reassessment: Patient and/or family updated on plan of care and expected duration. Pain ap3 level reassessed. Patient is alert, oriented x 3, equal unlabored respirations, skin warm/dry/pink. 12:45 Reassessment: Patient and/or family updated on plan of care and expected duration. Pain ap3 level reassessed. Patient is alert, oriented x 3, equal unlabored respirations, skin warm/dry/pink. 13:07 Reassessment: Patient and/or family updated on plan of care and expected duration. Pain ap3 level reassessed. Patient is alert, oriented x 3, equal unlabored respirations, skin warm/dry/pink. 13:08 General: Appears. ap3 13:30 Reassessment: Patient and/or family updated on plan of care and expected duration. Pain ap3 level reassessed. Patient is alert, oriented x 3, equal unlabored respirations, skin warm/dry/pink. 14:00 Reassessment: Patient and/or family updated on plan of care and expected duration. Pain ap3 level reassessed. Patient is alert, oriented x 3, equal unlabored respirations, skin warm/dry/pink. 14:30 Reassessment: Patient and/or family updated on plan of care and expected duration. Pain ap3 level reassessed. Patient is alert, oriented x 3, equal unlabored respirations, skin warm/dry/pink. 15:00 Reassessment: Patient and/or family updated on plan of care and expected duration. Pain ap3 level reassessed. Patient is alert, oriented x 3, equal unlabored respirations, skin warm/dry/pink. 15:37 Reassessment: Patient and/or family updated on plan of care and expected duration. Pain ap3 level reassessed. Patient is alert, oriented x 3, equal unlabored respirations, skin warm/dry/pink. mother states she will be going to get patient a meal. 16:00 Reassessment: Patient and/or family updated on plan of care and expected duration. Pain ap3 level reassessed. Patient is alert, oriented x 3, equal unlabored respirations, skin warm/dry/pink. 16:20 Reassessment: Patient and/or family updated on plan of care and expected duration. Pain ap3 level reassessed. Patient is alert, oriented x 3, equal unlabored respirations, skin warm/dry/pink. 16:45 Reassessment: Patient and/or family updated on plan of care and expected duration. Pain ap3 level reassessed. Patient is alert, oriented x 3, equal unlabored respirations, skin warm/dry/pink. 17:00 Reassessment: Patient and/or family updated on plan of care and expected duration. Pain ap3 level reassessed. Patient is alert, oriented x 3, equal unlabored respirations, skin warm/dry/pink. 17:19 Reassessment: Patient and/or family updated on plan of care and expected duration. Pain ap3 level reassessed. Patient is alert, oriented x 3, equal unlabored respirations, skin warm/dry/pink. 19:25 Reassessment: ASSUMED CARE OF PT. PT ADMITTED TO ICU 7. PT SITTING IN BED. NO DISTRESS jj7 NOTED. BP WITHIN RANGE. NO PAIN NOTED. General: Appears in no apparent distress. uncomfortable, Behavior is calm, cooperative. Neuro: Level of Consciousness is awake, alert, obeys commands, confused, Oriented to person. Cardiovascular: Denies chest pain, fatigue, lightheadedness, nausea, palpitations, shortness of breath, Patient's skin is warm and dry. Vital Signs: 10:48 Pulse 87; Resp 18; ap3 11:11 BP 243 / 159; Pulse 78; Resp 17; Weight 52.16 kg; ap3 11:19 Temp 97.6(O); ap3 11:20 BP 241 / 157; ap3 11:35 BP 247 / 167; Pulse 77; Pulse Ox 99% on R/A; ap3 11:42 BP 245 / 154; Pulse 79; ap3 11:44 BP 214 / 134; Pulse 82; ap3 11:51 BP 216 / 146; Pulse 87; ap3 11:57 BP 188 / 130; Pulse 91; ap3 12:03 BP 200 / 130; Pulse 94; Pulse Ox 98% on R/A; ap3 12:13 BP 186 / 128; Pulse 93; Pulse Ox 100% on R/A; ap3 12:16 BP 197 / 125; Pulse 95; ap3 12:26 BP 204 / 137; Pulse 96; Pulse Ox 100% on R/A; ap3 12:35 BP 189 / 122; Pulse 93; ap3 12:45 BP 194 / 119; Pulse 100; ap3 12:55 BP 191 / 119; Pulse 96; ap3 13:15 BP 175 / 112; Pulse 100; Pulse Ox 100% ; ap3 13:20 BP 159 / 102; Pulse 100; ap3 13:30 BP 166 / 105; Pulse 99; ap3 13:35 BP 166 / 110; Pulse 100; Pulse Ox 100% ; ap3 13:40 BP 168 / 105; Pulse 100; Pulse Ox 100% ; ap3 13:51 BP 168 / 105; Pulse 94; Pulse Ox 99% on R/A; ap3 13:53 BP 167 / 113; Pulse 94; Pulse Ox 100% on R/A; ap3 14:00 BP 177 / 117; Pulse 99; Pulse Ox 100% ; ap3 14:10 BP 177 / 127; Pulse 99; Pulse Ox 100% ; ap3 14:20 BP 167 / 121; Pulse 100; Pulse Ox 99% ; ap3 14:25 BP 184 / 113; Pulse 98; Pulse Ox 98% ; ap3 14:30 BP 165 / 109; Pulse 100; Pulse Ox 100% ; ap3 14:48 BP 172 / 111; Pulse 100; Pulse Ox 100% ; ap3 15:14 BP 117 / 119; Pulse 93; Resp 15; Pulse Ox 99% ; ko1 15:20 BP 168 / 113; Pulse 93; Pulse Ox 98% ; ap3 15:37 BP 176 / 110; Pulse 96; Pulse Ox 98% on R/A; ap3 15:51 BP 167 / 111; Pulse 97; Pulse Ox 98% on R/A; ap3 16:15 BP 181 / 115; ap3 16:30 BP 178 / 110; Pulse 96; Pulse Ox 100% ; ap3 16:45 BP 179 / 117; Pulse 91; Pulse Ox 100% ; ap3 16:55 BP 178 / 117; Pulse 93; Pulse Ox 100% on R/A; ap3 17:00 BP 189 / 113; Pulse 87; Pulse Ox 100% ; ap3 17:16 BP 169 / 104; Pulse 98; Pulse Ox 100% ; ap3 18:00 BP 154 / 91; Pulse 94; Pulse Ox 98% on R/A; ap3 18:12 BP 148 / 89; Pulse 93; Pulse Ox 100% on R/A; ap3 18:40 BP 163 / 103; Pulse 95; Pulse Ox 100% on R/A; ap3 18:48 BP 158 / 97; Pulse 92; Pulse Ox 98% on R/A; ap3 19:25 BP 170 / 107; Pulse 94; Resp 22; Pulse Ox 99% ; jj7 ED Course: 10:42 Patient arrived in ED. sb4 10:42 Daquan Ellington MD is Attending Physician. bo1 10:47 Dai Patiño, JERALD is Primary Nurse. ap3 10:49 Triage completed. ap3 10:51 Arm band placed on right wrist. ap3 10:51 Patient has correct armband on for positive identification. Placed in gown. Bed in low ap3 position. Call light in reach. Side rails up X 1. Adult w/ patient. Client placed on continuous cardiac and pulse oximetry monitoring. NIBP monitoring applied. joss house keeper on. Pulse ox on. NIBP on. 11:02 CT Stroke Brain w/o Contrast In Process Unspecified. EDMS 11:17 EKG done, by ED staff, reviewed by Daquan Ellington MD. ty 12:40 Stroke CXR 1 View In Process Unspecified. EDMS 12:45 Warm blanket given. PO fluids given. Verbal reassurance given. ap3 14:08 Clovis Barclay MD is Hospitalizing Provider. bo1 19:49 No provider procedures requiring assistance completed. Inserted saline lock: 20 gauge jj7 in right antecubital area, using aseptic technique. Flushed with 10 mL NS. 19:52 Provided Education on: USE OF CALL NAVARRO. jj7 19:52 Patient admitted, IV remains in place. jj7 Administered Medications: 11:33 Drug: niCARdipine IV 5 mg/hr IV at 5 mg/hr See Administration Instructions; (Standard ap3 concentration 25 mg / 250 mL NS); Recommended max rate 15 mg/hr; Titrate 2.5 mg/hr as often as every 15 minutes to achieve goal (see titration policy); Goal parameter SBP less than 160 mmHg Route: IV; Rate: 2.5 mg/hr; Site: right antecubital; 11:47 Follow up: Rate change 5 mg/hr ap3 11:55 Follow up: Rate change 7.5 mg/hr ko1 13:20 Follow up: Rate change 5 mg/hr ap3 18:13 Follow up: Rate change 2.5 mg/hr ap3 20:13 Follow up: IV Status: Infusion continued upon admission jj7 Medication: 19:52 VIS not applicable for this client. jj7 Outcome: 14:09 Decision to Hospitalize by Provider. bo1 19:49 Admitted to ICU accompanied by nurse, via stretcher, room 7, on monitor, Report called jj7 to LUKAS MARQUES 19:49 Condition: good 20:13 Patient left the ED. jj7 Signatures: Dispatcher [employer] EDMS Dai Patiño RN RN ap3 Shaunna Villafuerte RN RN vc1 Sandra Mock RN RN koGini Hills RN RN jj7 Lillian Miramontes PA-C PATrue Taylor Benjamin, MD MD bo1 Corrections: (The following items were deleted from the chart) 20:30 19:25 Reassessment: ASSUMED CARE OF PT. PT SITTING IN BED. NO DISTRESS NOTED. BP WITHIN jj7 RANGE. NO PAIN NOTED. jj7 20:31 20:23 Patient left the ED. vc1 jj7
--- NOTE | 2024-06-25 14:14 | P.CNS ---
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 Did not run Sat. Pt brought in by family due to concern for some AMS, BP accelerated. Placed on Nifedipine gtt for hypertensive urgency. Pt is not on Clonidine patch despite that being prescribed several times. She does not report CONTRERAS, vision changes, CP, dyspnea, N/V. Allergies sulfamethoxazole [From Bactrim] Allergy (Verified 10/27/23 00:24) Itching/Hives/Rash trimethoprim [From Bactrim] Allergy (Verified 10/27/23 00:24) Itching/Hives/Rash Home Medications: Famotidine [Pepcid*] 20 mg PO DAILY 04/10/24 Losartan Potassium [Cozaar*] 50 mg PO BID 04/10/24 hydrOXYzine HCL [Atarax] 50 mg PO Q6H PRN #30 tab 04/10/24 Clonidine Patch [Catapres-Tts 3*] 1 patch TOP SEECOM 04/16/24 Divalproex ER [Depakote *ER] 500 mg PO DAILY tab 04/16/24 Ergocalciferol (Vitamin D2) [Vitamin D2] 1 cap PO SEECOM 04/16/24 Famotidine [Pepcid*] 20 mg PO DAILY tab 04/16/24 Gabapentin [Neurontin*] 100 mg PO DAILY cap 04/16/24 Hydralazine [Apresoline*] 10 mg IV Q4HP PRN vial 04/16/24 Pantoprazole [Protonix Tab*] 1 tab PO DAILY 04/16/24 clonazePAM [Klonopin*] 0.5 mg PO BID PRN tab 04/16/24 - Past Medical/Surgical History Diabetic: No -: HTN -: ESRD (Dr. Wills/ [facility]) -: Seizures (as a child) -: Hx Brain tumor -: Asthma -: DVT -: Csection x2 -: Brain Sx -: Kidney Transplant Nephrectomy/transplant was removed recently Psychosocial/ Personal History: Lives at home - Social History Smoking Status: Former smoker Alcohol use: No CD- Drugs: No Caffeine use: Yes Review of Systems General: As per HPI Eyes: Unremarkable ENT: Unremarkable Respiratory: Other (CXR with mild congestion) Cardiovascular: As per HPI Genitourinary: Unremarkable Musculoskeletal: Unremarkable Integumentary: Unremarkable Neurological: As per HPI Physical Examination General: In no apparent distress, Cooperative HEENT: Atraumatic, Normocephalic Neck: Supple Respiratory: Normal air movement, Other (Non tachypnec, no rhonchi) Cardiovascular: Regular rate/rhythm, No gallops Gastrointestinal: Soft and benign, Non-distended, Guarding Musculoskeletal: No swelling, No contractures, Other (Lt UE AVF with thrill and bruit) Integumentary: No rashes Neurological: Other (Awake, a bit lethargic, slower to respond than baseline, no tremors or myoclonus observed) Laboratory Data (last 24 hrs) 06/25/24 06/25/24 06/25/24 11:06 11:06 11:06 WBC 4.90 Hgb 9.6 L Hct 30.2 L Plt Count 146 L PT 16.3 H INR 1.47 APTT 31.5 Sodium 137 Potassium 4.8 BUN 64 H Creatinine 9.02 H Glucose 92 Magnesium 2.4 Conclusions/Impression: A/P) 1. ESRD with atrophic [place] kidneys, failed renal transplant due to rejection, other s/p transplant nephrectomy, currently on iHD via AVF. Last OP HD Th, missed HD Sat. 2. HD today x 2h and then HD again tmrw. 3. Hypertensive urgency, recurrent. Malignant HTN with possible secondary HTN due to renal disorder, other -BP typically improves in the hospital but pt co ntinues to report compliance with meds at home. Will ask pharmacist to contact her pharmacy to obtain list of filled meds in the last 90 days. Cont Nifedipine, titrate to target SBP < 170 and DBP < 100 for now 4. No signs of gross hypervolemia currently, mild chronic pulm edema, will target UF of 1.5L on HD today Atrophic kidneys but non anuric, will place on diuretics to see if she can produce a couple hundred cc of urine 5. Cardiomegaly -prior TTE findings reviewed. Cont strict BP control and maintain EDW 6. AMS -likely multifactorial with missed HD, possible med associated, possible hypertensive encephalopathy and chronic small vessel ischemic changes/encephalomalacia noted on CT
--- NOTE | 2024-06-25 14:38 | P.HP ---
Certification for Inpatient Patient admitted to: Inpatient With expected LOS: >2 Midnights Practitioner: I am a practitioner with admitting privileges, knowledge of patient current condition, hospital course, and medical plan of care. Services: Services provided to patient in accordance with Admission requirements found in Title 42 Section 412.3 of the Code of Federal Regulations Patient History Date of Service: 06/25/24 Reason for admission: missed HD, accelerated HTN, mild confusion History of Present Illness: Shaun Lopez is a 33 year old female with pmhx ESRD, HTN, new seizure diagnosis, and Aortic Aneurysm who presents to the ED after missing dialysis and experiencing altered mental status with severely elevated blood pressure. Her mother reports Shaun missed dialysis but is not sure why, Shaun did not answer her mothers calls or texts and was found in a confused state. While in the ED she was struggling to spell her name and speak in coherent sentences. CT head and CXR negative for acute findings. Dr. Lambert was consulted and dialysis is planned for today and tomorrow. Laboratory evaluation significant for H/H 9.6/30.2, BUN/Creatinine 64/9.02, GFR 5. While in the ED she was started on Cardene gtt. She has recently been diagnosed with seizures in April and started depakote. Shaun will be admitted to hospitalist service for further evaluation and treatment. Allergies sulfamethoxazole [From Bactrim] Allergy (Verified 10/27/23 00:24) Itching/Hives/Rash trimethoprim [From Bactrim] Allergy (Verified 10/27/23 00:24) Itching/Hives/Rash Home Medications: Losartan Potassium [Cozaar*] 50 mg PO BID 04/10/24 hydrOXYzine HCL [Atarax] 50 mg PO Q6H PRN #30 tab 04/10/24 Clonidine Patch [Catapres-Tts 3*] 1 patch TOP SEECOM 04/16/24 Divalproex ER [Depakote *ER] 500 mg PO DAILY tab 04/16/24 Ergocalciferol (Vitamin D2) [Vitamin D2] 1 cap PO SEECOM 04/16/24 Famotidine [Pepcid*] 20 mg PO DAILY tab 04/16/24 Gabapentin [Neurontin*] 100 mg PO DAILY cap 04/16/24 Pantoprazole [Protonix Tab*] 1 tab PO DAILY 04/16/24 clonazePAM [Klonopin*] 0.5 mg PO BID PRN tab 04/16/24 - Past Medical/Surgical History Diabetic: No -: HTN -: ESRD (Dr. Wills/ [facility] A) -: Seizures (as a child) -: Hx Brain tumor -: Asthma -: DVT -: Csection x2 -: Brain Sx -: Kidney Transplant Nephrectomy/transplant was removed recently Psychosocial/ Personal History: Lives at home - Social History Alcohol use: No CD- Drugs: No Caffeine use: Yes Review of Systems is unable to be obtained Physical Examination - Physical Exam General: Disheveled, Acute distress HEENT: Atraumatic, PERRLA Neck: Supple, 2+ carotid pulse no bruit Respiratory: Clear to auscultation bilaterally, Normal air movement Cardiovascular: No edema, Normal pulses, Irregular heart rate/rhythm (Tachycardic) Capillary refill: <2 Seconds Gastrointestinal: Soft and benign, No ascites Musculoskeletal: No clubbing Integumentary: No rashes Neurological: Other (confused) - Studies Laboratory Data (last 24 hrs) 06/25/24 06/25/24 06/25/24 11:06 11:06 11:06 WBC 4.90 Hgb 9.6 L Hct 30.2 L Plt Count 146 L PT 16.3 H INR 1.47 APTT 31.5 Sodium 137 Potassium 4.8 BUN 64 H Creatinine 9.02 H Glucose 92 Magnesium 2.4 Assessment and Plan - Plan Assessment and plan Recurrent hypertensive urgency with malignant hypertension HTN encephalopathy -On Cardene drip in the ED, titrated ORB -will admit to ICU -Supportive care -Restart home medications End-stage renal disease with atrophic [place] kidney 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 Valle consulted -Lasix per Dr. Lambert -HD TTS Pruritis Hx shingles reports dealing with itchyness, neuropathic pain since developing shingles in november (per last hospitalization) PRN hydroxyzine Seizure Asthma Dvt -Continue home medications -Depakote level <3.0 Hx recent RUE DVT (Right cephalic & basilic 02/28/24) confirm home meds, restart as appropriate DVT ppx Heparin Full code LOS 2 days Discharge Plan: Home Plan to discharge in: 48 Hours - Advance Directives Does patient have a Living Will: No Does patient have a Durable POA for Healthcare: No
[2024-06-25] MEDS: FUROSEMIDE 40 MG/4 ML VIAL IV SCH (15:00)
[2024-06-25] MEDS ORDERED: ACETAMINOPHEN 325 MG TABLET PO PRN (15:44)
[2024-06-25] MEDS ORDERED: Nicardipine/NS 25 MG/250 ML KIT IV SCH (16:00)
[2024-06-25] MEDS: HEPARIN 5000 UNIT/ML 1 ML VIAL SQ SCH (17:00)
[2024-06-25 19:12] LABS: ALT/SGPT < 14 U/L (13-56); AST/SGOT 14 U/L (15-37); Albumin 3.6 g/dL (3.4-5.0); Albumin/Globulin Ratio 0.9 (1.1-1.8); Alkaline Phosphatase 91 U/L (45-117); Bilirubin Direct 0.9 mg/dL (0-0.2); Bilirubin Indirect, Calculated 0.8 mg/dL (0.2-0.8); Bilirubin Total 1.7 mg/dL (0.2-1.0); Globulin 3.8 g/dL (2.3-3.5); Protein, Total 7.4 g/dL (6.4-8.2)
[2024-06-25 21:34] VITALS: O2SAT 99
[2024-06-25 21:49] VITALS: TEMP 97.7
[2024-06-25] MEDS ORDERED: hydrOXYzine HCL 25 MG TAB PO PRN (22:27)
--- NOTE | 2024-06-26 00:48 | P.PN ---
Date of Service: 06/26/24 The patient has decided to leave AGAINST MEDICAL ADVICE and treatment. We have discussed the danger and limitations that will likely occur from leaving the hospital without treatment, specifically , stroke, and becoming unstable hemodynamically. The patient demonstrates capacity, and understands the risk and benefits of leaving AGAINST MEDICAL ADVICE. The patient demonstrates the ability to to understand her options of care. The patient is able to express a choice regarding this decision. The patient appropriately shows appreciation for the information, and is able to apply it to oneself. The patient also demonstrates the ability to reason, and understand the consequences of her choices. I have instructed the patient to return to the hospital for any reason. She voiced understanding, and all her questions were answered to her satisfaction.
[2024-06-26 00:54] VITALS: BMI 23.0
[2024-06-26 01:27] VITALS: BP 192/119
[2024-06-26] MEDS ORDERED: DIVALPROEX ER 250 MG TAB PO SCH (09:00)
--- NOTE | 2024-06-26 14:41 | EKG ---
Test Date: 2024-06-25 Test Time: 11:14:11 Fish Receiver: LIV MEASUREMENT RESULTS: Intervals: Rate: 77 ID: [id number] QRSD: 92 QT: 410 QTc: 463 Trufant: P: 21 ID: [id number] QRS: -52 T: 89 INTERPRETIVE STATEMENTS: Normal sinus rhythm Left anterior fascicular block Left ventricular hypertrophy Abnormal ECG Compared to ECG 06/05/2024 14:47:19 Early repolarization no longer present Electronically Signed On 06-26-24 14:39:10 TABLE OPERATOR by Andres Uribe
== END 2024-06-26 01:00 | disposition left against medical advice (07) | DRG 77 ==
LOC: ER 10:35 → ERHOLD 15:44 → 3RD-ICU 19:58
PROVIDERS: ADMIT Hospitalist; ATTEND Hospitalist
PROC: 5A1D70Z Performance of Urinary Filtration, Intermittent, Less than 6 Hours Per Day (ICD-10-PCS; principal; 2024-06-26)
DX: I67.4 Hypertensive encephalopathy (principal); N18.6 End stage renal disease; I12.0 Hypertensive chronic kidney disease with stage 5 chronic kidney disease or end stage renal disease; I16.0 Hypertensive urgency; L29.9 Pruritus, unspecified; J45.909 Unspecified asthma, uncomplicated; Z90.5 Acquired absence of kidney; Z99.2 Dependence on renal dialysis; Z88.1 Allergy status to other antibiotic agents; Z53.29 Procedure and treatment not carried out because of patient's decision for other reasons; Z91.040 Latex allergy status; Z91.018 Allergy to other foods; Z91.048 Other nonmedicinal substance allergy status; Z91.158 Patient's noncompliance with renal dialysis for other reason; Z79.899 Other long term (current) drug therapy; Z87.891 Personal history of nicotine dependence; Z86.718 Personal history of other venous thrombosis and embolism
CPT/HCPCS: 36415; 70450; 71045; 80048; 80076; 80164; 82140; 83735; 84484; 85025; 85610; 85730; 90935; 93005; 96365; 96366; 99285

== ENCOUNTER 2024-06-28 09:34 | Emergency (ER) | payer OTHER ==
--- NOTE | 2024-06-28 10:38 | ER ---
Nurse's Notes [facility] Name: Shaun Lopez Age: 33 yrs Sex: Female : 1990 Arrival Date: 06/28/2024 Time: 09:34 Bed 18 Private MD: Diagnosis: Mental Health Evaluation Presentation: 06/28 10:00 Chief complaint: Patient states: Dialysis referred pt here for mental wellness check rs5 up, brought here by mother who has medical legal power of criminal attorney. Pt is AOx4, has not been doing dialysis and has not been wanting to take her medications. Denies feelings of hopelessness, SI, self-harm or HI. Coronavirus screen: At this time, the client does not indicate any symptoms associated with coronavirus-19. Ebola Screen: No symptoms or risks identified at this time. Initial Sepsis Screen: Does the patient meet any 2 criteria? No. Patient's initial sepsis screen is negative. Does the patient have a suspected source of infection? No. Patient's initial sepsis screen is negative. Risk Assessment: Do you want to hurt yourself or someone else? Patient reports no desire to harm self or others. Onset of symptoms was June 28, 2024. 10:00 Method Of Arrival: Ambulatory rs5 10:00 Acuity: VERNA 3 rs5 Triage Assessment: 09:55 General: Appears in no apparent distress. uncomfortable, Behavior is calm, cooperative. rs5 Historical: - Allergies: 10:06 Adhesives; rs5 10:06 AVOCADO (LAURUS PERSEA); rs5 10:06 Bactrim; rs5 10:06 Latex; rs5 - PMHx: 10:06 Hypertension; End stage renal disease; Seizures; brain tumor-removed; Migraines; rs5 Dialysis; - PSHx: 10:06 kidney transplant; Fistula- L arm; brain SX x 2; donor kidney removed; rs5 section; kidney biopsy; - Immunization history:: Adult Immunizations up to date. - Infectious Disease History:: Denies. - Social history:: Smoking status: Patient denies any tobacco usage or history of. Screenin:55 [facility] ED Fall Risk Assessment (Adult) History of falling in the last 3 months, rs5 including since admission No falls in past 3 months (0 pts) Confusion or Disorientation No (0 pts) Intoxicated or Sedated No (0 pts) Impaired Gait No (0 pts) Mobility Assist Device Used No (0 pt) Altered Elimination No (0 pt) Score/Fall Risk Level 0 - 2 = Low Risk Oriented to surroundings, Maintained a safe environment. Abuse screen: Denies threats or abuse. Nutritional screening: No deficits noted. Tuberculosis screening: No symptoms or risk factors identified. Assessment: 09:50 General: Appears in no apparent distress. comfortable, Behavior is calm, cooperative. rs5 Pain: Denies pain. Neuro: Level of Consciousness is awake, alert, obeys commands, Oriented to person, place, time, situation. Cardiovascular: Patient's skin is warm and dry. Respiratory: Airway is patent Respiratory effort is even, unlabored, Respiratory pattern is regular, symmetrical. GI: Abdomen is round non-distended, Abd is soft and non tender X 4 quads. : No signs and/or symptoms were reported regarding the genitourinary system. EENT: No signs and/or symptoms were reported regarding the EENT system. Derm: Skin is intact, Skin is pink, warm \T\ dry. Musculoskeletal: Range of motion: intact in all extremities. 09:51 Reassessment: to bedside for SI and HI screening, pt denies SI or HI ideation, denies rs5 wanting to self harm. provider notified . 11:01 Reassessment: Patient and/or family updated on plan of care and expected duration. Pain rs5 level reassessed. Patient is alert, oriented x 3, equal unlabored respirations, skin warm/dry/pink. Vital Signs: 10:00 BP 140 / 91; Pulse 74; Resp 17; Temp 98(O); Pulse Ox 99% ; rs5 11:04 BP 135 / 88; Pulse 77; Resp 17; Pulse Ox 99% on R/A; rs5 ED Course: 09:37 Patient arrived in ED. ra3 09:38 Carlitos Ruiz MD is Attending Physician. ec2 09:55 Patient has correct armband on for positive identification. Placed in gown. Bed in low rs5 position. Call light in reach. Side rails up X2. 09:55 Arm band placed on right wrist. rs5 09:55 No provider procedures requiring assistance completed. rs5 10:00 Marquez Bower, JERALD is Primary Nurse. rs5 10:06 Triage completed. rs5 10:38 Chon Short MD is Referral Physician. ec2 10:38 Brayan Batres MD is Referral Physician. ec2 10:38 Hiren Hassan MD is Referral Physician. ec2 11:05 Provided Education on: discharge instructions . rs5 11:07 Patient did not have IV access during this emergency room visit. rs5 Administered Medications: No medications were administered Medication: 09:50 VIS not applicable for this client. rs5 Outcome: 10:38 Discharge ordered by MD. ec2 11:07 Discharged to home ambulatory, rs5 11:07 Condition: stable rs5 11:07 Discharge instructions given to patient, family, Instructed on discharge instructions, follow up and referral plans. Demonstrated understanding of instructions, follow-up care, 11:10 Patient left the ED. rs5 Signatures: Marquez Bower RN RN rs5 Carlitos Ruiz MD MD ec2 Brittany Bonner ra3 Corrections: (The following items were deleted from the chart) 12:42 11:20 BP 135 / 88; Pulse 77bpm; Resp 17bpm; Pulse Ox 99% RA; rs5 rs5
--- NOTE | 2024-06-28 10:39 | EDPHYS ---
Physician Documentation [facility] Name: Shaun Lopez Age: 33 yrs Sex: Female : 1990 Arrival Date: 06/28/2024 Time: 09:34 Bed 18 Private MD: ED Physician Carlitos Ruiz HPI: 06/28 10:25 This 33 yrs old Female presents to ER via Ambulatory with complaints of ec2 Mental health eval. 10:25 Patient arrives today with mother due to concern for "mental health evaluation ". ec2 Mother expressed concern that patient no longer wants to go to dialysis or take her daily medications. Patient has no specific concerns. States that she is generally tired of her health struggles. States that she has not attempted to kill herself by no longer seeking care. Patient reports no suicidal thoughts, states that she has multiple reasons to live including her family and her children. Has no plan to end her life.. Historical: - Allergies: 10:06 Adhesives; rs5 10:06 AVOCADO (LAURUS PERSEA); rs5 10:06 Bactrim; rs5 10:06 Latex; rs5 - PMHx: 10:06 Hypertension; End stage renal disease; Seizures; brain tumor-removed; Migraines; rs5 Dialysis; - PSHx: 10:06 kidney transplant; Fistula- L arm; brain SX x 2; donor kidney removed; rs5 section; kidney biopsy; - Immunization history:: Adult Immunizations up to date. - Infectious Disease History:: Denies. - Social history:: Smoking status: Patient denies any tobacco usage or history of. ROS: 10:25 Constitutional: as per hpi ec2 Exam: 10:25 Constitutional: GEN: NAD Head: atraumatic Eyes: EOMI Ears: External ears are ec2 normal. CV: regular rate LUNGS: no respiratory distress ABD: non-distended SKIN: no evidence of rashes MSK: no evidence of trauma. Psych: Cooperative individual who is in no acute distress with a reassuring examination, denies suicidality or homicidality. Vital Signs: 10:00 BP 140 / 91; Pulse 74; Resp 17; Temp 98(O); Pulse Ox 99% ; rs5 11:04 BP 135 / 88; Pulse 77; Resp 17; Pulse Ox 99% on R/A; rs5 MDM: 10:24 Medical Screening Exam initiated ec2 10:25 Data reviewed: vital signs, nurses notes. ED course: Patient arrives today for ec2 evaluation due to concern for mental health evaluation. Examination is revealing for cooperative individual is otherwise in no acute distress with a reassuring examination without suicidal thoughts or plan. After thorough discussion with patient and mother, it seems that patient's general stress is due to lack of feeling self-control of her life, she states that she has no plan to end her life and in would like to continue living for her children. I do not believe that psychiatric hospitalization will be beneficial in this patient setting. I instructed patient and mother that they need to follow-up with psychology and therapy to further discuss patient's general health. I did tell patient that generally not going to dialysis is not beneficial for her general health however I do not believe that keeping her in the hospital would benefit her at this time.. Administered Medications: No medications were administered Disposition Summary: 06/28/24 10:38 Discharge Ordered Notes: Location: Home ec2 Condition: Stable ec2 Diagnosis - Mental Health Evaluation ec2 Followup: ec2 - With: Chon Short MD - When: - Reason: Recheck today's complaints Followup: ec2 - With: Brayan Batres MD - When: - Reason: Recheck today's complaints Followup: ec2 - With: Hiren Hassan MD - When: - Reason: Recheck today's complaints Discharge Instructions: - Discharge Summary Sheet ec2 - Caring for Your Mental Health ec2 Forms: - Medication Reconciliation Form ec2 - Antibiotic Education ec2 - Prescription Opioid Use ec2 - Patient Portal Instructions ec2 - Leadership Thank You Letter ec2 Signatures: Marquez Bower, RN RN rs5 Carlitos Ruiz MD MD ec2
[2024-06-28 11:33] VITALS: BP 140/91; TEMP 98; O2SAT 99
== END 2024-06-28 11:10 | disposition home or self-care (01) ==
LOC: ER 09:34
DX: Z71.1 Person with feared health complaint in whom no diagnosis is made (principal)
CPT/HCPCS: 99282

== ENCOUNTER 2024-07-10 12:00 | Inpatient (IN) | payer OTHER ==
[2024-07-10] MEDS ORDERED: HYDRALAZINE HCL 20 MG/ML VIAL ONE (12:37)
[2024-07-10 12:44] LABS: Hematocrit 31.2 % (36.0-45.0); MCH 30.2 pg (27.0-35.0); MCHC 32.2 g/dL (32.0-36.0); MCV 93.6 fL (80-100); MPV 8.1 fL (7.6-11.3); Platelets 143 thou/uL (152-406); RBC Red Blood Cell Count 3.33 M/uL (3.86-4.86); Red Cell Distribution Width 20.7 % (12.1-15.2)
[2024-07-10 12:45] LABS: Absolute Basophils 0.1 K/uL (0-0.5); Absolute Eosinophils 0.3 K/uL (0-0.5); Absolute Lymphocytes (CBC) 0.7 K/uL (0.7-4.9); Absolute Monocytes 0.4 K/uL (0.1-1.3); Absolute Neutrophil 2.8 K/uL (1.8-8.0); Basophils % 1.3 % (0-1.3); Eosinophils % 7.9 % (0-4.4); Lymphocytes % 16.4 % (15.3-44.8); Monocytes % 9.3 % (3.3-12.3); Neutrophils % 65.1 % (41.7-73.7); Nucleated Red Blood Cells % 0.2 % (0-0)
[2024-07-10 12:58] LABS: Anion Gap 13.9 mEq/L (5.0-15.0); Potassium 4.9 mEq/L (3.5-5.1)
[2024-07-10 13:09] LABS: Anisocytosis 1+; Blood Morphology Comment NOTED (NOT SEEN); Ovalocytes 1+; Platelet Estimate ADEQ; White Blood Cell Scan OK (OK)
[2024-07-10] MEDS ORDERED: cloNIDine HCL 0.1 MG TAB ONE (13:29)
--- NOTE | 2024-07-10 16:35 | EDPHYS ---
Physician Documentation [facility] Name: Shaun Lopez Age: 33 yrs Sex: Female : 1990 Arrival Date: 07/10/2024 Time: 12:00 Bed 8 Private MD: ED Physician Blayne Barclay HPI: 07/10 13:28 This 33 yrs old Female presents to ER via Ambulatory with complaints of High Blood rn Pressure, Headache. 13:28 The patient has elevated blood pressure and discovered this at a physician's office. rn Onset: The symptoms/episode began/occurred this morning. Associated signs and symptoms: Pertinent positives: headache, Pertinent negatives: chest pain, dyspnea. Severity of symptoms: At its worst the blood pressure was severe, in the emergency department the blood pressure is unchanged. The patient has experienced similar episodes in the past. Patient reports high blood pressure, began this morning, usually gets headache when blood pressure is elevated and so made her check her blood pressure and was elevated. Patient states took her clonidine and other blood pressure medications as prescribed and went to dialysis open for dialysis. When arrived to dialysis they refused to dialyze her due to blood pressure elevation and sent her here for evaluation. Patient reports this happens every time her blood pressure gets high, identical type of headache, no focal neurological symptoms, no chest pain or shortness of breath.. 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 - Infectious Disease History:: Denies. - Social history:: Smoking status: Patient denies any tobacco usage or history of. - Family history:: not pertinent. - Hospitalizations: : No recent hospitalization is reported. ROS: 13:28 Constitutional: Negative for fever, chills, and weight loss, Neck: Negative for injury, rn pain, and swelling, Cardiovascular: Negative for chest pain, palpitations, and edema, Respiratory: Negative for shortness of breath, cough, wheezing, and pleuritic chest pain, Abdomen/GI: Negative for abdominal pain, nausea, vomiting, diarrhea, and constipation, MS/Extremity: Negative for injury and deformity, Skin: Negative for injury, rash, and discoloration, Neuro: Positive for headache, negative for focal weakness or numbness Exam: 13:28 Constitutional: This is a well developed, well nourished patient who is awake, alert, rn and in no acute distress. Ambulatory to room without assistance or difficulty Head/Face: Normocephalic, atraumatic. Eyes: Pupils equal round and reactive to light, extra-ocular motions intact. Cardiovascular: Regular rate and rhythm. No pulse deficits. Respiratory: Speaking full sentences, unlabored. Skin: No rash Neuro: Awake and alert, GCS 15, oriented to person, place, time, and situation. Cranial nerves II-XII grossly intact. Motor strength 5/5 in all extremities. Sensory grossly intact. Cerebellar exam normal. Normal gait. 14:02 ECG was reviewed by the Attending Physician. rn Vital Signs: 12:11 BP 233 / 163; Pulse 84; Resp 17; Temp 98; Pulse Ox 100% on R/A; Weight 58.97 kg; Height ll1 5 ft. 1 in. ; Pain 7/10; 13:04 BP 212 / 156; Pulse 81; ll1 13:20 BP 213 / 150; ll1 13:40 BP 207 / 150; ll1 14:20 BP 224 / 135; Pulse 78; Resp 16; Pulse Ox 100% on R/A; ll1 14:49 BP 221 / 141; ll1 15:10 BP 208 / 133; Pulse 81; ll1 16:12 BP 190 / 130; Pulse 78; ll1 16:55 BP 203 / 131; Pulse 90; Resp 17; Pulse Ox 98% on R/A; ll1 17:49 BP 222 / 145; Pulse 80; Resp 17; Pulse Ox 100% ; ll1 12:11 Body Mass Index 24.56 (58.97 kg, 154.94 cm) ll1 12:11 Pain Scale: Adult ll1 MDM: 12:02 Medical Screening Exam initiated rn 16:31 Differential diagnosis: hypertensive crisis, Malignant HTN. Data reviewed: vital signs, rn nurses notes, lab test result(s), and as a result, I will admit patient. Consideration of Admission/Observation Patient was admitted/placed on observation. Escalation of care including admission/observation considered. Counseling: I had a detailed discussion with the patient and/or guardian regarding the historical points, exam findings, and any diagnostic results supporting the discharge/admit diagnosis, lab results, the need for further work-up and treatment in the hospital. Response to treatment: the patient's symptoms have mildly improved after treatment, and as a result, I will admit patient. ED course: Patient still hypertensive despite hydralazine x 2 and clonidine as well as home meds. Neurological exam still normal but will admit for further blood pressure control. Still denies any chest pain or focal neurological deficits.. 16:31 Care significantly affected by the following chronic conditions: Chronic Kidney rn Disease. ED course: I personally spent 35 minutes engaged in work directly related to the individual patient's care. This does not include any time spent performing procedures. The patient has been deemed critically ill because of severe hypertensive emergency requiring multiple IV and p.o. doses of antihypertensives and further admission to hospital for control.. 07/10 12:25 Order name: CBC with Diff; Complete Time: 13:22 rn 07/10 12:25 Order name: Basic Metabolic Panel; Complete Time: 13:03 rn 07/10 12:48 Order name: CBC Smear Scan; Complete Time: 13:22 EDKS 07/10 17:10 Order name: NT PRO-BNP; Complete Time: 17:10 EDKS 07/10 17:10 Order name: Troponin High Sensitivity; Complete Time: 17:10 EDKS 07/10 17:12 Order name: Aldosterone EDKS 07/10 17:12 Order name: Aldosterone EDMS 07/10 17:12 Order name: YUMIKO IFA Screen w/Reflex EDMS 07/10 17:12 Order name: YUMIKO IFA Screen w/Reflex EDMS 07/10 17:12 Order name: Anti-Double Strand DNA Antibod EDKS 07/10 17:12 Order name: Anti-Double Strand DNA Antibod EDKS 07/10 17:12 Order name: ANTIPHOSPHOLIPID AB PANEL EDMS 07/10 17:12 Order name: ANTIPHOSPHOLIPID AB PANEL EDMS 07/10 17:12 Order name: C-Reactive Protein EDMS 07/10 17:12 Order name: C-Reactive Protein; Complete Time: 17:10 EDMS 07/10 17:12 Order name: CBC with Automated Diff EDMS 07/10 17:12 Order name: CBC with Automated Diff; Complete Time: 17:10 EDMS 07/10 17:12 Order name: Comprehensive Metabolic Panel EDMS 07/10 17:12 Order name: Comprehensive Metabolic Panel; Complete Time: 17:10 EDMS 07/10 17:12 Order name: Cortisol EDMS 07/10 17:12 Order name: Cortisol; Complete Time: 17:10 EDMS 07/10 17:12 Order name: Protime (+INR) EDMS 07/10 17:12 Order name: Protime (+INR); Complete Time: 17:10 EDMS 07/10 17:12 Order name: PTT, Activated Partial Thromb EDMS 07/10 17:12 Order name: PTT, Activated Partial Thromb; Complete Time: 17:10 EDMS 07/10 17:12 Order name: Renin Activity, Plasma EDMS 07/10 17:12 Order name: Renin Activity, Plasma EDMS 07/10 17:12 Order name: Troponin High Sensitivity EDMS 07/10 17:12 Order name: Troponin High Sensitivity; Complete Time: 17:10 EDMS 07/10 17:12 Order name: Troponin High Sensitivity EDMS 07/10 17:12 Order name: Troponin High Sensitivity EDMS 07/10 17:08 Order name: Chest Single View; Complete Time: 17:10 EDMS 07/10 12:25 Order name: EKG; Complete Time: 12:26 rn 07/10 17:12 Order name: CONS Physician Consult EDMS 07/10 12:25 Order name: IV Start; Complete Time: 12:30 rn 07/10 12:25 Order name: EKG - Nurse/Tech; Complete Time: 12:47 rn 07/10 12:25 Order name: Cardiac monitoring; Complete Time: 12:47 rn 07/10 12:25 Order name: O2 Sat Monitoring; Complete Time: 12:30 rn EC:02 Rate is 83 beats/min. Rhythm is regular. QRS Buckley is Normal. NV interval is normal. QRS rn interval is normal. QT interval is normal. No Q waves. T waves are Normal. No ST changes noted. Clinical impression: NSR w/ Non-specific ST/T Changes. Interpreted by me. Reviewed by me. Administered Medications: 12:47 Drug: hydrALAZINE IVP 10 mg IVP once Route: IVP; Site: right antecubital; ll1 17:21 Follow up: Response: No adverse reaction; Blood pressure is lowered ll1 13:30 Drug: cloNIDine PO 0.2 mg PO once Route: PO; ll1 17:21 Follow up: Response: No adverse reaction; Blood pressure is lowered ll1 15:10 Drug: hydrALAZINE IVP 10 mg IVP once Route: IVP; Site: right forearm; ll1 17:21 Follow up: Response: No adverse reaction; Blood pressure is lowered ll1 Disposition Summary: 07/10/24 16:34 Hospitalization Ordered Notes: Hospitalization Status: Observation rn Provider: María Elena Rothman rn Condition: Stable rn Problem: an ongoing problem rn Symptoms: have improved rn Bed/Room Type: Standard rn Location: Intensive Care Unit(07/10/24 17:44) ja Room Assignment: 3-(07/10/24 17:44) 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 Total time: 35 minutes rn Signatures: Dispatcher [employer] Blayne Gomez MD MD rn Aguilar, Jose RN RN mary beth1 Diego Mari, RN RN ll1 Corrections: (The following items were deleted from the chart) 17:08 17:07 Troponin High Sensitivity ordered. EDKS NICHELLEKS 17:44 16:34 Telemetry/MedSurg (observation) cheri quiroz 17:44 16:34 rn richie
--- NOTE | 2024-07-10 16:35 | ER ---
Nurse's Notes [facility] Name: Shaun Lopez Age: 33 yrs Sex: Female : 1990 Arrival Date: 07/10/2024 Time: 12:00 Bed 8 Private MD: Diagnosis: Hypertensive emergency;End stage renal disease Presentation: 07/10 12:11 Chief complaint: Patient states: Elevated BP and CONTRERAS. Coronavirus screen: Client denies ll1 travel out of the [place] in the last 14 days. At this time, the client does not indicate any symptoms associated with coronavirus-19. Ebola Screen: Patient denies travel to an Ebola-affected area in the 21 days before illness onset. Initial Sepsis Screen: Does the patient meet any 2 criteria? No. Patient's initial sepsis screen is negative. Does the patient have a suspected source of infection? No. Patient's initial sepsis screen is negative. Risk Assessment: Do you want to hurt yourself or someone else? Patient reports no desire to harm self or others. Onset of symptoms was July 10, 2024. 12:11 Method Of Arrival: Ambulatory [facility] 12:11 Acuity: VERNA 2 [facility] Triage Assessment: 12:13 Headache History: The patient has had previous headaches and this one is similar to [facility] previous episodes. General: Appears uncomfortable, Behavior is calm, cooperative, appropriate for age. Pain: Complains of pain in head Pain currently is 7 out of 10 on a pain scale. Quality of pain is described as aching, Pain began. Neuro: Reports headache. Cardiovascular: Reports high BP. 17:50 Pain: Also complains of no other associated symptoms. 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 Historical: - Allergies: 12:06 Adhesives; ll1 12:06 AVOCADO (LAURUS PERSEA); ll1 12:06 Bactrim; ll1 12:06 Latex; ll1 - PMHx: 12:06 brain tumor-removed; Migraines; Hypertension; End stage renal disease; Seizures; ll1 Dialysis; - PSHx: 12:06 brain SX x 2; donor kidney removed; Fistula- L arm; section; kidney biopsy; ll1 kidney transplant; - Immunization history:: Adult Immunizations up to date. - Infectious Disease History:: Denies. - Social history:: Smoking status: Patient denies any tobacco usage or history of. - Family history:: not pertinent. - Hospitalizations: : No recent hospitalization is reported. Screenin:53 [facility] ED Fall Risk Assessment (Adult) History of falling in the last 3 months, ll1 including since admission No falls in past 3 months (0 pts) Confusion or Disorientation No (0 pts) Intoxicated or Sedated No (0 pts) Impaired Gait No (0 pts) Mobility Assist Device Used No (0 pt) Altered Elimination No (0 pt) Score/Fall Risk Level 0 - 2 = Low Risk Maintained a safe environment, Hourly rounding (assess needs \T\ fall precautionary measures) done. Abuse screen: Denies threats or abuse. Nutritional screening: No deficits noted. Tuberculosis screening: No symptoms or risk factors identified. Assessment: 12:52 Reassessment: No changes from previously documented assessment. Patient and/or family ll1 updated on plan of care and expected duration. Pain level reassessed. Patient is alert, oriented x 3, equal unlabored respirations, skin warm/dry/pink. 13:04 Reassessment: No changes from previously documented assessment. Patient and/or family ll1 updated on plan of care and expected duration. Pain level reassessed. Patient is alert, oriented x 3, equal unlabored respirations, skin warm/dry/pink. 13:20 Reassessment: No changes from previously documented assessment. Patient and/or family ll1 updated on plan of care and expected duration. Pain level reassessed. Patient is alert, oriented x 3, equal unlabored respirations, skin warm/dry/pink. 13:40 Reassessment: No changes from previously documented assessment. Patient and/or family ll1 updated on plan of care and expected duration. Pain level reassessed. 15:10 Reassessment: No changes from previously documented assessment. Patient and/or family ll1 updated on plan of care and expected duration. Pain level reassessed. Patient is alert, oriented x 3, equal unlabored respirations, skin warm/dry/pink. 17:15 Reassessment: Admission doctor at . ll1 17:50 Reassessment: No changes from previously documented assessment. Patient and/or family ll1 updated on plan of care and expected duration. Pain level reassessed. Patient is alert, oriented x 3, equal unlabored respirations, skin warm/dry/pink. Vital Signs: 12:11 BP 233 / 163; Pulse 84; Resp 17; Temp 98; Pulse Ox 100% on R/A; Weight 58.97 kg; Height ll1 5 ft. 1 in. ; Pain 7/10; 13:04 BP 212 / 156; Pulse 81; ll1 13:20 BP 213 / 150; ll1 13:40 BP 207 / 150; ll1 14:20 BP 224 / 135; Pulse 78; Resp 16; Pulse Ox 100% on R/A; ll1 14:49 BP 221 / 141; ll1 15:10 BP 208 / 133; Pulse 81; ll1 16:12 BP 190 / 130; Pulse 78; ll1 16:55 BP 203 / 131; Pulse 90; Resp 17; Pulse Ox 98% on R/A; ll1 17:49 BP 222 / 145; Pulse 80; Resp 17; Pulse Ox 100% ; ll1 12:11 Body Mass Index 24.56 (58.97 kg, 154.94 cm) 1 12:11 Pain Scale: Adult [facility] ED Course: 12:02 Patient arrived in ED. im 12:02 Blayne Barclay MD is Attending Physician. rn 12:06 Diego Mari RN is Primary Nurse. 1 12:06 Arm band placed on Patient placed in an exam room, on a stretcher. 1 12:13 Triage completed. ll1 12:45 Initial lab(s) drawn, by ne, sent to lab. Inserted saline lock: 22 gauge in right ll1 antecubital area, using aseptic technique. Blood collected. Flushed with 10 mL NS. 12:53 Patient has correct armband on for positive identification. Bed in low position. 1 Provided Education on: ER procedures and process. Client placed on continuous cardiac and pulse oximetry monitoring. NIBP monitoring applied. pile operator on. 12:53 EKG done. 1 16:34 María Elena Rothman MD is Hospitalizing Provider. rn 17:50 No provider procedures requiring assistance completed. Patient admitted, IV remains in ll1 place. Administered Medications: 12:47 Drug: hydrALAZINE IVP 10 mg IVP once Route: IVP; Site: right antecubital; 1 17:21 Follow up: Response: No adverse reaction; Blood pressure is lowered ll1 13:30 Drug: cloNIDine PO 0.2 mg PO once Route: PO; ll1 17:21 Follow up: Response: No adverse reaction; Blood pressure is lowered ll1 15:10 Drug: hydrALAZINE IVP 10 mg IVP once Route: IVP; Site: right forearm; ll1 17:21 Follow up: Response: No adverse reaction; Blood pressure is lowered ll1 Medication: 12:53 VIS not applicable for this client. ll1 Outcome: 16:34 Decision to Hospitalize by Provider. rn 17:51 Admitted to ICU ll1 17:51 Condition: stable 17:51 Instructed on the need for admit, 18:58 Patient left the ED. [id number] Signatures: Blayne Barclay MD MD rn Bryson, James, RN RN jb4 Diego Mari RN RN ll1 Vianca Alva
--- NOTE | 2024-07-10 17:02 | P.HP ---
Patient History Date of Service: 07/10/24 Allergies sulfamethoxazole [From Bactrim] Allergy (Verified 10/27/23 00:24) Itching/Hives/Rash trimethoprim [From Bactrim] Allergy (Verified 10/27/23 00:24) Itching/Hives/Rash Home Medications: Losartan Potassium [Cozaar*] 50 mg PO BID 04/10/24 hydrOXYzine HCL [Atarax] 50 mg PO Q6H PRN #30 tab 04/10/24 Clonidine Patch [Catapres-Tts 3*] 1 patch TOP SEECOM 04/16/24 Divalproex ER [Depakote *ER] 500 mg PO DAILY tab 04/16/24 Ergocalciferol (Vitamin D2) [Vitamin D2] 1 cap PO SEECOM 04/16/24 Famotidine [Pepcid*] 20 mg PO DAILY tab 04/16/24 Gabapentin [Neurontin*] 100 mg PO DAILY cap 04/16/24 Pantoprazole [Protonix Tab*] 1 tab PO DAILY 04/16/24 clonazePAM [Klonopin*] 0.5 mg PO BID PRN tab 04/16/24 - Past Medical/Surgical History Diabetic: No -: HTN -: ESRD (Dr. Wills/ Juan A) -: Seizures (as a child) -: Hx Brain tumor -: Asthma -: DVT -: Csection x2 -: Brain Sx -: Kidney Transplant Nephrectomy/transplant was removed recently Psychosocial/ Personal History: Lives at home - Social History Alcohol use: No CD- Drugs: No Caffeine use: Yes Physical Examination - Studies Laboratory Data (last 24 hrs) 07/10/24 07/10/24 12:30 12:30 WBC 4.20 L Hgb 10.0 L Hct 31.2 L Plt Count 143 L Sodium 137 Potassium 4.9 BUN 53 H Creatinine 7.57 H Glucose 108 H Assessment and Plan - Advance Directives Does patient have a Living Will: No Does patient have a Durable POA for Healthcare: No
[2024-07-10] MEDS ORDERED: MORPHINE 2 MG/ML SYR IV PRN (17:03)
[2024-07-10] MEDS ORDERED: ACETAMINOPHEN 500 MG TAB PO PRN (17:03)
[2024-07-10] MEDS ORDERED: HYDROMORPHONE HCL 0.5 MG/0.5 ML INJ IV PRN (17:11)
[2024-07-10] MEDS ORDERED: DIPHENHYDRAMINE 50 MG/ML VIAL IV PRN (17:11)
--- NOTE | 2024-07-10 17:17 | P.HP ---
Certification for Inpatient Patient admitted to: Inpatient With expected LOS: >2 Midnights Patient will require the following post-hospital care: None Practitioner: I am a practitioner with admitting privileges, knowledge of patient current condition, hospital course, and medical plan of care. Services: Services provided to patient in accordance with Admission requirements found in Title 42 Section 412.3 of the Code of Federal Regulations Patient History Date of Service: 07/10/24 Reason for admission: Hypertensive emergency History of Present Illness: Patient is a 33-year-old female with a history of lupus and uncontrolled hypertension and ESRD who presents to the ER with hypertensive emergency. Patient has recurrent admissions for similar complaints. Patient was at hemodialysis when they checked her blood pressure she was 230s/130s so she was sent to the emergency room. In the ER patient was given antihypertensives intravenously with no significant improvement on the blood pressure. Patient was brought into the hospital to the ICU on an cardene drip. Patient will be admitted to ICU. Patient has a history of systemic lupus erythematous. Patient ended up having renal failure and on hemodialysis. However patient was able to get a transplant. The transplant failed so patient ended up needing hemodialysis once again. Unknown etiology as to what is causing patient recurrent hypotensive episodes. Most likely she has antiphospholipid antibody syndrome from lupus anticoagulants. These will be checked. Patient will be admitted for inpatient hospitalization to the ICU. Allergies sulfamethoxazole [From Bactrim] Allergy (Verified 10/27/23 00:24) Itching/Hives/Rash trimethoprim [From Bactrim] Allergy (Verified 10/27/23 00:24) Itching/Hives/Rash Home Medications: Losartan Potassium [Cozaar*] 50 mg PO BID 04/10/24 hydrOXYzine HCL [Atarax] 50 mg PO Q6H PRN #30 tab 04/10/24 Clonidine Patch [Catapres-Tts 3*] 1 patch TOP SEECOM 04/16/24 Divalproex ER [Depakote *ER] 500 mg PO DAILY tab 04/16/24 Ergocalciferol (Vitamin D2) [Vitamin D2] 1 cap PO SEECOM 04/16/24 Famotidine [Pepcid*] 20 mg PO DAILY tab 04/16/24 Gabapentin [Neurontin*] 100 mg PO DAILY cap 04/16/24 Pantoprazole [Protonix Tab*] 1 tab PO DAILY 04/16/24 clonazePAM [Klonopin*] 0.5 mg PO BID PRN tab 04/16/24 - Past Medical/Surgical History Diabetic: No -: HTN -: ESRD (Dr. Wills/ Juan A) -: Seizures (as a child) -: Hx Brain tumor -: Asthma -: DVT -: Csection x2 -: Brain Sx -: Kidney Transplant Nephrectomy/transplant was removed recently Psychosocial/ Personal History: Lives at home - Family History Father Family History: Reviewed- Non-Contributory - Social History Smoking Status: Former smoker Alcohol use: No CD- Drugs: No Caffeine use: Yes Review of Systems 10-point ROS is otherwise unremarkable Physical Examination - Vital Signs Temperature: 98 F Blood Pressure: 210/130 Pulse: 100 Respirations: 18 Pulse Ox (%): 95 - Physical Exam General: Alert, In no apparent distress, Oriented x3 HEENT: Atraumatic, PERRLA, Mucous membr. moist/pink, EOMI, Sclerae nonicteric Neck: Supple, 2+ carotid pulse no bruit, No LAD, Without JVD or thyroid a bnormality Respiratory: Clear to auscultation bilaterally, Normal air movement Cardiovascular: Regular rate/rhythm, Normal S1 S2 Gastrointestinal: Normal bowel sounds, Soft and benign, Non-distended, No tenderness Musculoskeletal: No clubbing, No swelling, No tenderness Integumentary: No rashes Neurological: Normal gait, Normal speech, Normal strength at 5/5 x4 extr, Normal tone, Sensation intact, Cranial nerves 3-12 intact, Normal affect Lymphatics: No axilla or inguinal lymphadenopathy - Studies Laboratory Data (last 24 hrs) 07/10/24 07/10/24 12:30 12:30 WBC 4.20 L Hgb 10.0 L Hct 31.2 L Plt Count 143 L Sodium 137 Potassium 4.9 BUN 53 H Creatinine 7.57 H Glucose 108 H Assessment & Plan - Problems (Diagnosis) (1) Hypertensive emergency Current Visit: No Status: Acute (2) Systemic lupus erythematosus Current Visit: Yes Status: Acute (3) Lupus nephritis Current Visit: Yes Status: Acute (4) ESRD (end stage renal disease) Current Visit: No Status: Acute (5) Anemia in chronic kidney disease Current Visit: Yes Status: Acute (6) Thrombocytopenia Current Visit: No Status: Acute - Plan 1. Patient with hypertensive emergency. This is most likely related to her SLE. Patient is up on hemodialysis after failed transplant. Patient was at hemodialysis today when her blood pressure is uncontrolled. Will start on Cardene drip. Patient mated to ICU. Nephrology consulted for hemodialysis. Patient will have labs evaluated for secondary hypertension as well as checking for lupus anticoagulant/antiphospholipid antibody for her uncontrolled hypertension. At this time patient will need intensive care monitoring for her blood pressure being so elevated. Patient will be admitted for inpatient hospitalization. 2. Bicytopenia; patient with anemia chronic kidney disease and thrombocytopenia. Continue monitoring labs 3. GI DVT prophylaxis Discharge Plan: Home Plan to discharge in: Greater than 2 days - Advance Directives Does patient have a Living Will: No Does patient have a Durable POA for Healthcare: No - Code Status/Comfort Care Code Status Assessed: Yes Code Status: Full Code Critical Care: Yes Time Spent Managing PTS Care (In Minutes): 50
--- NOTE | 2024-07-10 17:40 | RAD REPORT ---
EXAMINATION: ONE VIEW CHEST XR CLINICAL INDICATION: SOB TECHNIQUE: Frontal chest projection is submitted. Examination is limited by patient positioning and t echnique. COMPARISON: 06/25/2024 FINDINGS: Mild interstitial pulmonary edema. The heart is mildly enlarged in size. No displaced fractures ident ified. IMPRESSION: Mild CHF.
[2024-07-10] MEDS: ONDANSETRON 4 MG/2 ML VIAL IV PRN (18:55)
[2024-07-10] MEDS: Nicardipine/NS 25 MG/250 ML KIT IV SCH (18:55)
[2024-07-10 19:13] VITALS: BMI 24.7
[2024-07-10 19:15] LABS: Troponin High Sensitivity 38.9 pg/mL (<58.9)
[2024-07-10] MEDS: FLU (Fluarix Triv) TS24-25(6MOS UP)/PF 45 MCG/0.5 ML Syringe IM ONE (19:15)
[2024-07-10 19:16] LABS: NT PRO-BNP > 175000 pg/mL (<125)
--- NOTE | 2024-07-10 19:55 | P.CNS ---
Date of Consult: 07/11/24 Reason for Consult: ESRD Requesting Physician: María Elena Rothman Chief Complaint: Hypertensive emergency History of Present Illness: Patient is a 33-year-old female with a history of lupus and uncontrolled hypertension and ESRD who presents to the ER with hypertensive emergency. Patient has recurrent admissions for similar complaints. Patient was at hemodialysis when they checked her blood pressure she was 230s/130s so she was sent to the emergency room. In the ER patient was given antihypertensives intravenously with no significant improvement on the blood pressure. Patient was brought into the hospital to the ICU on an cardene drip. Patient will be admitted to ICU. Patient has a history of systemic lupus erythematous. Patient ended up having renal failure and on hemodialysis. However patient was able to get a t ransplant. The transplant failed so patient ended up needing hemodialysis once again. Unknown etiology as to what is causing patient recurrent hypotensive episodes. Most likely she has antiphospholipid antibody syndrome from lupus anticoagulants. These will be checked. Patient will be admitted for inpatient hospitalization to the ICU. [id number] 13:28 This 33 yrs old Female presents to ER via Ambulatory with complaints of High Blood rn Pressure, Headache. 13:28 The patient has elevated blood pressure and discovered this at a physician's office. rn Onset: The symptoms/episode began/occurred this morning. Associated signs and symptoms: Pertinent positives: headache, Pertinent negatives: chest pain, dyspnea. Severity of symptoms: At its worst the blood pressure was severe, in the emergency department the blood pressure is unchanged. The patient has experienced similar episodes in the past. Patient reports high blood pressure, began this morning, usually gets headache when blood pressure is elevated and so made her check her blood pressure and was elevated. Patient states took her clonidine and other blood pressure medications as pr escribed and went to dialysis open for dialysis. When arrived to dialysis they refused to dialyze her due to blood pressure elevation and sent her here for evaluation. Patient reports this happens every time her blood pressure gets high, identical type of headache, no focal neurological symptoms, no chest pain or shortness of breath.. Allergies sulfamethoxazole [From Bactrim] Allergy (Verified 10/27/23 00:24) Itching/Hives/Rash trimethoprim [From Bactrim] Allergy (Verified 10/27/23 00:24) Itching/Hives/Rash Home medications list reviewed: Yes Home Medications: Losartan Potassium [Cozaar*] 50 mg PO BID 04/10/24 hydrOXYzine HCL [Atarax] 50 mg PO Q6H PRN #30 tab 04/10/24 Clonidine Patch [Catapres-Tts 3*] 1 patch TOP SEECOM 04/16/24 Divalproex ER [Depakote *ER] 500 mg PO DAILY tab 04/16/24 Gabapentin [Neurontin*] 100 mg PO DAILY cap 04/16/24 Pantoprazole [Protonix Tab*] 1 tab PO DAILY 04/16/24 clonazePAM [Klonopin*] 0.5 mg PO BID PRN tab 04/16/24 Docusate [Colace Cap*] 100 mg PO BID #60 cap 07/11/24 Doxazosin [Cardura*] 4 mg PO BID #60 tab 07/11/24 Losartan Potassium [Cozaar*] 50 mg PO BID #60 tab 07/11/24 Sevelamer Carbonate [Renvela*] 1,600 mg PO TIDWM #120 tab 07/11/24 Vitamin D [Drisdol*] 50,000 unit PO Q7D@0900 #5 cap 07/11/24 atenoloL [Tenormin*] 50 mg PO BEDTIME #30 tab 07/11/24 clonazePAM [Klonopin*] 0.5 mg PO TID tab 07/11/24 - Past Medical/Surgical History Diabetic: No -: HTN -: ESRD (Dr. Wills/ Juan A) -: Seizures (as a child) -: Hx Brain tumor -: Asthma -: DVT -: Csection x2 -: Brain Sx -: Kidney Transplant Nephrectomy/transplant was removed recently Psychosocial/ Personal History: Lives at home - Family History Father History Unknown: Yes Family History: Reviewed- Non-Contributory - Social History Smoking Status: Former smoker Alcohol use: No CD- Drugs: No Caffeine use: Yes Place of Residence: Home Review of Systems 10-point ROS is otherwise unremarkable Physical Examination Temp Pulse Resp BP Pulse Ox 98 F 84 17 233/163 H 98 07/10/24 19:43 07/10/24 19:43 07/10/24 19:43 07/10/24 19:43 07/10/24 19:15 General: In no apparent distress, Oriented x3, Cooperative HEENT: Atraumatic Neck: Supple Respiratory: Normal air movement Cardiovascular: Regular rate/rhythm, Edema Gastrointestinal: Soft and benign, Non-distended Musculoskeletal: No clubbing, No contractures Integumentary: No rashes, No cyanosis Neurological: Normal speech Laboratory Data (last 24 hrs) 07/10/24 07/10/24 12:30 12:30 WBC 4.20 L Hgb 10.0 L Hct 31.2 L Plt Count 143 L Sodium 137 Potassium 4.9 BUN 53 H Creatinine 7.57 H Glucose 108 H Imagings Data: [id number] EXAMINATION: ONE VIEW CHEST XR CLINICAL INDICATION: SOB TECHNIQUE: Frontal chest projection is submitted. Examination is limited by patient positioning and technique. COMPARISON: 06/25/2024 FINDINGS: Mild interstitial pulmonary edema. The heart is mildly enlarged in size. No displaced fractures identified. IMPRESSION: Mild CHF. Conclusions/Impression: ESRD on HD -HD TIW HTN Urgency HTN with CKD/ CHF -Cardene gtt; wean as tolerated -Start Atenolol -Start Nifedipine ER and Losartan -Start Doxazosin Anemia in CKD Pancytopenia -Monitor CBC -Retacrit prn CKD MBD Secondary HyperParathyroidism -Start Calcitriol and Ergo -Start Renvela Itching -Hydroxyzine X1 Hospitalist and ER notes reviewed Thank you kindly for the consultation
[2024-07-10 20:14] VITALS: O2SAT 100
[2024-07-10] MEDS: LOSARTAN POTASSIUM 50 MG TABLET PO SCH (20:31)
[2024-07-10] MEDS: atenoloL 50 MG TAB PO ONE (20:31)
[2024-07-10] MEDS: clonazePAM 0.5 MG TAB PO SCH (20:31)
[2024-07-10] MEDS: NIFEDIPINE XL 90 MG TABLET PO SCH (20:31)
[2024-07-10] MEDS ORDERED: MANNITOL 25% 12.5 GM/50 ML VIAL IV PRN (21:04)
[2024-07-10] MEDS ORDERED: NA CHLORIDE 0.9% 1,000 ML IV PRN (21:04)
[2024-07-10] MEDS ORDERED: ALBUMIN HUMAN 25% 50 ML IV SCH (22:00)
[2024-07-11 03:55] LABS: Hepatitis B Surface Ab - Quant 61.06 mIU/mL (<8.0)
[2024-07-11 03:56] LABS: Hepatitis B surface AG Interp. Nonreactive (Nonreactive)
[2024-07-11 03:57] LABS: HBsAG Nonreactive Report Report
[2024-07-11 06:23] LABS: Absolute Basophils 0.1 K/uL (0-0.5); Absolute Eosinophils 0.5 K/uL (0-0.5); Absolute Lymphocytes (CBC) 0.6 K/uL (0.7-4.9); Absolute Monocytes 0.6 K/uL (0.1-1.3); Absolute Neutrophil 3.3 K/uL (1.8-8.0); Eosinophils % 10.1 % (0-4.4); Hematocrit 28.5 % (36.0-45.0); Hemoglobin 9.3 g/dL (12.0-15.0); Lymphocytes % 11.5 % (15.3-44.8); MCH 30.4 pg (27.0-35.0); MCHC 32.8 g/dL (32.0-36.0); MCV 92.6 fL (80-100); MPV 9.1 fL (7.6-11.3); Monocytes % 11.1 % (3.3-12.3); Neutrophils % 65.3 % (41.7-73.7); Nucleated Red Blood Cells % 0.2 % (0-0); Platelets 134 thou/uL (152-406); RBC Red Blood Cell Count 3.08 M/uL (3.86-4.86)
[2024-07-11 06:31] LABS: PT Prothrombin Time 15.1 SECONDS (9.4-12.5); PTT, Activated Partial Thromb 31.7 SECONDS (24.3-36.9); Protime INR 1.36
[2024-07-11 06:57] LABS: Albumin 3.1 g/dL (3.4-5.0); Albumin/Globulin Ratio 0.9 (1.1-1.8); Anion Gap 14.8 mEq/L (5.0-15.0); Bilirubin Total 1.1 mg/dL (0.2-1.0); C-Reactive Protein 13.2 mg/L (<3.00); Globulin 3.3 g/dL (2.3-3.5); Magnesium 2.4 mg/dL (1.6-2.4); Phosphorus 7.4 mg/dL (2.5-4.9); Potassium 4.8 mEq/L (3.5-5.1); Protein, Total 6.4 g/dL (6.4-8.2)
[2024-07-11 07:11] LABS: Troponin High Sensitivity 141.8 pg/mL (<58.9)
[2024-07-11] MEDS: CALCITROL 0.25 MCG CAP PO SCH (08:27)
[2024-07-11] MEDS: DOCUSATE NA 100 MG CAP PO SCH (08:27)
[2024-07-11] MEDS: SEVELAMER CARBONATE 800 MG TABLET PO SCH ×2 (08:27→11:50)
[2024-07-11] MEDS: DRISDOL (VITAMIN D=ERGOCALCIFEROL) 50000 UNIT CAP PO SCH (08:28)
[2024-07-11] MEDS: MULTIVITAMINS,THERAPEUT 1 TAB PO SCH (08:28)
[2024-07-11] MEDS: hydrOXYzine HCL 25 MG TAB PO ONE (08:45)
[2024-07-11] MEDS: DOXAZOSIN 4 MG TAB PO SCH (08:46)
[2024-07-11 12:05] VITALS: TEMP 98
[2024-07-11 16:26] VITALS: BP 143/95
[2024-07-11] MEDS ORDERED: atenoloL 50 MG TAB PO SCH (21:00)
[2024-07-14 08:03] LABS: Anti-Double Strand DNA Antibod <1 IU/mL (<=4)
[2024-07-15 20:52] LABS: Anti-Cardiolipin IgG Antibody <2.0 GPL-U/mL (<20.0); Anti-Cardiolipin IgM Antibody <2.0 MPL-U/mL (<20.0); Beta-2-Glycoprotein I IgA <2.0 U/mL (<20.0); Beta-2-Glycoprotein I IgG <2.0 U/mL (<20.0); Beta-2-Glycoprotein I IgM <2.0 U/mL (<20.0); Phosphatidylser & Prothrom IgG 13 U (<=30); Phosphatidylser & Prothrom IgM <9 U (<=30)
--- NOTE | 2024-07-16 11:04 | EKG ---
Test Date: 2024-07-10 Test Time: 12:41:46 Marine Architect: LML MEASUREMENT RESULTS: Intervals: Rate: 83 MS: 170 QRSD: 96 QT: 376 QTc: 441 [place]: P: 42 MS: 170 QRS: -54 T: 90 INTERPRETIVE STATEMENTS: Normal sinus rhythm Left anterior fascicular block Septal infarct, age undetermined T wave abnormality, consider lateral ischemia Abnormal ECG Compared to ECG 06/25/2024 11:14:11 Myocardial infarct finding now present T-wave abnormality now present Possible ischemia now present Left ventricular hypertrophy no longer present Electronically Signed On 07-16-24 10:57:55 PROGRAM AIDE GROUP WORK by Alirio Dickerson
[2024-07-16 11:20] LABS: PRA,LC/MS/MS 0.45 ng/mL/h (0.25-5.82)
[2024-07-17 06:23] LABS: Anti-Nuclear Antibody Pattern REPORT; Anti-Nuclear Antibody Screen Positive (Negative); Anti-Nuclear Antibody Titer 1:40 (Negative)
== END 2024-07-11 16:28 | disposition home or self-care (01) | DRG 304 ==
LOC: ER 12:00 → ERHOLD 17:03 → 3RD-ICU 18:22
PROVIDERS: ADMIT Hospitalist; ATTEND Hospitalist
PROC: 5A1D70Z Performance of Urinary Filtration, Intermittent, Less than 6 Hours Per Day (ICD-10-PCS; principal; 2024-07-10)
DX: I16.1 Hypertensive emergency (principal); N18.6 End stage renal disease; D61.818 Other pancytopenia; N25.81 Secondary hyperparathyroidism of renal origin; I13.2 Hypertensive heart and chronic kidney disease with heart failure and with stage 5 chronic kidney disease, or end stage renal disease; I50.9 Heart failure, unspecified; D63.1 Anemia in chronic kidney disease; M32.9 Systemic lupus erythematosus, unspecified; M32.14 Glomerular disease in systemic lupus erythematosus; Z99.2 Dependence on renal dialysis; Z88.1 Allergy status to other antibiotic agents; Z90.5 Acquired absence of kidney; Z91.040 Latex allergy status; Z91.018 Allergy to other foods; Z91.048 Other nonmedicinal substance allergy status; Z91.158 Patient's noncompliance with renal dialysis for other reason; Z86.718 Personal history of other venous thrombosis and embolism; Z87.891 Personal history of nicotine dependence
CPT/HCPCS: 36415; 71045; 80048; 80053; 82088; 82533; 83735; 83880; 84100; 84244; 84484; 85025; 85610; 85730; 86038; 86140; 86225; 86706; 87340; 90935; 93005; 99285; J0360; J1644; J2405

== ENCOUNTER 2025-02-23 22:24 | Emergency (ER) | payer OTHER ==
[2025-02-23] MEDS ORDERED: HYDRALAZINE HCL 20 MG/ML VIAL ONE ×2 (22:49→23:36)
[2025-02-23] MEDS ORDERED: NA CHLORIDE 0.9% 500 ML ONE (22:49)
[2025-02-23] MEDS ORDERED: LORazepam 2 MG/ML VIAL ONE (22:49)
[2025-02-23] MEDS ORDERED: LEVETIRACETAM 500 MG/5 ML VIAL IV ONE (22:49)
[2025-02-23] MEDS ORDERED: LABETALOL HCL 100 MG/20 ML ONE ×2 (22:49→23:37)
[2025-02-23] MEDS ORDERED: NA CHLORIDE 0.9% 100 ML ONE (22:49)
[2025-02-23 23:24] LABS: Absolute Lymphocytes (CBC) 0.6 K/uL (0.7-4.9); Hematocrit 26.9 % (36.0-45.0); Hemoglobin 8.9 g/dL (12.0-15.0); MCH 31.3 pg (27.0-35.0); MCHC 33.2 g/dL (32.0-36.0); MCV 94.2 fL (80-100); MPV 8.9 fL (7.6-11.3); Nucleated RBC Absolute Count 0.0 (0-0); Nucleated Red Blood Cells % 0.6 % (0-0); RBC Red Blood Cell Count 2.86 M/uL (3.86-4.86); White Blood Count 6.10 thou/uL (4.3-10.9)
[2025-02-23 23:29] LABS: PT Prothrombin Time 17.3 SECONDS (10-13.0); Protime INR 1.55
[2025-02-23 23:54] LABS: ALT/SGPT 65 U/L (13-56); AST/SGOT 35 U/L (15-37); Albumin 3.5 g/dL (3.4-5.0); Albumin/Globulin Ratio 1.0 (1.1-1.8); Alkaline Phosphatase 61 U/L (45-117); Anion Gap 34.6 mEq/L (5.0-15.0); BUN Blood Urea Nitrogen 109 mg/dL (7-18); Bilirubin Indirect, Calculated 0.6 mg/dL (0.2-0.8); Globulin 3.5 g/dL (2.3-3.5); Glucose Level 111 mg/dL (74-106); Lipase 29 U/L (13-75); Magnesium 3.0 mg/dL (1.6-2.4)
[2025-02-23 23:55] LABS: NT PRO-BNP > 175000 pg/mL (<125)
[2025-02-23 23:57] LABS: Potassium 6.6 mEq/L (3.5-5.1); Troponin High Sensitivity 103.6 pg/mL (<58.9)
--- NOTE | 2025-02-24 00:05 | RAD REPORT ---
CLINICAL HISTORY: COUGH. COMPARISON: Chest radiograph from May 18, 2023. TECHNIQUE: Single view AP chest radiograph(s). FINDINGS: No pulmonary infiltrate or edema identified. No pleural effusion. No pneumothorax. Nonenlarged cardio mediastinal silhouette. No significant osseous abnormality. Left breast surgical clips. IMPRESSION: No acute cardiopulmonary abnormality identified by radiograph. Electronically signed by: Tonya Louis MD 02/23/2025 11:53 PM CDT RP Due to temporary technical issues with the PACS/OLX reporting system, reports are being asmita d by the in-house radiologist without review as a courtesy to ensure prompt reporting the interpreting radiologist is fully responsible for the content of the report. Transcribed Date/Time: 02/24/2025 12:04 AM
[2025-02-24] MEDS ORDERED: ALBUTEROL 2.5 MG/3 ML NEB SOL ONE (00:16)
[2025-02-24] MEDS ORDERED: IPRATROPIUM BROM 0.5MG/2.5ML ONE (00:16)
[2025-02-24] MEDS ORDERED: FUROSEMIDE 100 MG/10 ML VIAL IV ONE (00:16)
[2025-02-24] MEDS ORDERED: INSULIN REGULAR (HUMAN) 100 UNIT/ML ONE (00:17)
[2025-02-24] MEDS ORDERED: CALCIUM GLUCONATE 1 GM IVPB 1 GM/50 ML BAG IV ONE (00:18)
[2025-02-24] MEDS ORDERED: D50W 25 GM/50 ML SYRINGE IV ONE (00:18)
[2025-02-24] MEDS ORDERED: Nicardipine/NS 25 MG/250 ML KIT IV ONE (00:19)
[2025-02-24] MEDS ORDERED: LORazepam 2 MG/ML VIAL ONE (00:21)
--- NOTE | 2025-02-24 00:49 | ER ---
Nurse's Notes [facility] Name: Shaun Lopez Age: 34 yrs Sex: Female : 1990 Arrival Date: 02/23/2025 Time: 22:24 Bed 5 Private MD: Diagnosis: Other seizures-POST ICTAL;Essential (primary) hypertension-UNCONTROLLED;Anemia in chronic kidney disease;Hyperkalemia;Dependence on renal dialysis-POORLY COMPLIANT;Altered mental status, unspecified Presentation: 02/23 22:41 Chief complaint: EMS states: seizure at home witnessed by daughter. Coronavirus screen: vc1 Client denies travel out of the [place] in the last 14 days. At this time, the client does not indicate any symptoms associated with coronavirus-19. Ebola Screen: Patient negative for fever greater than or equal to 101.5 degrees Fahrenheit, and additional compatible Ebola Virus Disease symptoms Patient denies exposure to infectious person. Patient denies travel to an Ebola-affected area in the 21 days before illness onset. No symptoms or risks identified at this time. Initial Sepsis Screen: Does the patient meet any 2 criteria? No. Patient's initial sepsis screen is negative. Does the patient have a suspected source of infection? No. Patient's initial sepsis screen is negative. Risk Assessment: Do you want to hurt yourself or someone else? Patient reports no desire to harm self or others. Onset of symptoms was February 23, 2025. 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 - Infectious Disease History:: Denies. - Social history:: Smoking status: unknown. Screenin:45 [facility] ED Fall Risk Assessment (Adult). Abuse screen: Denies threats or abuse. vc1 Nutritional screening: No deficits noted. Tuberculosis screening: No symptoms or risk factors identified. 23:26 [facility] ED Fall Risk Assessment (Adult) History of falling in the last 3 months, al5 including since admission No falls in past 3 months (0 pts) Confusion or Disorientation Yes (5 pts) Intoxicated or Sedated No (0 pts) Impaired Gait No (0 pts) Mobility Assist Device Used No (0 pt) Altered Elimination No (0 pt) Score/Fall Risk Level 3 or more points = High Risk Oriented to surroundings, Maintained a safe environment, Hourly rounding (assess needs \T\ fall precautionary measures) done. Assessment: 23:14 General: Appears distressed, uncomfortable, Behavior is agitated, anxious, combative. kb4 Pain: Unable to use pain scale. Patient is disoriented. Neuro: Level of Consciousness is confused, post ictal, unresponsive, Oriented to person, Seizure activity reported prior to arrival. witnessed by daughter, mother and sister at bedside, unable to describe duration and characteristics of seizure. Cardiovascular: Heart tones S1 S2 Patient's skin is warm and dry. Rhythm is sinus rhythm Dialysis shunt: in the left bicep, with palpable thrill, with auscultated bruit, with no erythema, with no edema, no bleeding noted. Respiratory: Airway is patent Respiratory effort is even, unlabored, Respiratory pattern is regular, symmetrical. GI: Abdomen is flat, non-distended. : No signs and/or symptoms were reported regarding the genitourinary system. EENT: No signs and/or symptoms were reported regarding the EENT system. Derm: No signs and/or symptoms reported regarding the dermatologic system. Musculoskeletal: No signs and/or symptoms reported regarding the musculoskeletal system. 23:15 Reassessment: No changes from previously documented assessment. Patient is alert, kb4 oriented x 3, equal unlabored respirations, skin warm/dry/pink. SEE TRIAGE ASSESSMENT Patient states symptoms have not improved. 02/24 00:30 Reassessment: pt continues to become easily agitated and restless intermittently, kb4 sister at bedside for consoling purposes. 01:34 Reassessment: family notified of transfer to [facility] ICU bed 2 [place] [id number] via [facility]. 01:41 Reassessment: attempted to call report to [place] [id number] ICU, states they are not able al5 to take report due to not being aware of a transfer. notified them that the patient is going to be [facility], nurse stated they understood that and will give this nurse a call back. notified charge nurse and heating unit installer. 01:59 Reassessment: gave report to susan MARQUES at [facility]. al5 Vital Signs: 02/23 22:41 BP 238 / 159; Pulse 96; Resp 22; Pulse Ox 98% ; vc1 23:00 BP 230 / 146; Pulse 93; Resp 18; Pulse Ox 97% on R/A; kb4 23:15 BP 189 / 129; Pulse 76; Resp 18; Pulse Ox 97% on R/A; kb4 23:30 BP 179 / 125; Pulse 76; Resp 18; Pulse Ox 98% on R/A; kb4 23:45 BP 196 / 129; Pulse 79; Resp 18; Pulse Ox 98% on R/A; kb4 02/24 00:15 BP 191 / 130; Pulse 73; Resp 18; Pulse Ox 99% on R/A; kb4 00:30 BP 183 / 132; Pulse 73; Resp 18; Pulse Ox 99% on R/A; kb4 01:00 BP 159 / 99; Pulse 88; Resp 18; Pulse Ox 100% on R/A; kb4 01:30 BP 164 / 96; Pulse 92; Resp 18; Pulse Ox 100% on R/A; kb4 01:33 Temp 97.6(A); Weight 70.76 kg; Height 5 ft. 3 in. ; al5 02:00 BP 162 / 107; Pulse 94; Resp 18; Pulse Ox 97% on R/A; kb4 01:33 Body Mass Index 27.63 (70.76 kg, 160.02 cm) al5 Juanjo Coma Score: 02/23 23:03 Eye Response: to pain(2). Motor Response: withdraws from pain(4). Verbal Response: al5 confused(4). Total: 10. ED Course: 22:25 Patient arrived in ED. jj6 22:25 Javon Rodriguez MD is Attending Physician. trevor 22:43 Triage completed. vc1 22:45 Arm band placed on right wrist. vc1 23:03 Dai Peck, JERALD is Primary Nurse. al5 23:15 XRAY Chest (1 view) In Process Unspecified. EDMS 23:25 Patient has correct armband on for positive identification. Bed in low position. Call al5 light in reach. Side rails up X2. Seizure precautions initiated. Provided Education on: plan of care. 23:25 No provider procedures requiring assistance completed. Maintain EMS IV. Dressing al5 intact. Good blood return noted. Site clean \T\ dry. Gauge \T\ site: 20G R hand. Flushed with 10 mL NS. 02/24 00:15 CT Head Brain wo Cont In Process Unspecified. EDMS 02:08 Patient transferred, IV remains in place. al5 Administered Medications: 02/23 23:03 Drug: NS 0.9% IV 500 ml 500 ml IV at 70 ml/hr once Volume: 500 ml; Route: IV; Rate: 70 al5 ml/hr; Site: right hand; 23:52 Follow up: Response: No adverse reaction [facility] 02/24 02:08 Follow up: Response: No adverse reaction; IV Status: Infusion continued upon transfer al5 02/23 23:03 Drug: Keppra IV 1000 mg IV at per protocol once Route: IV; Rate: per protocol; Site: [facility] right hand; 23:52 Follow up: Response: No adverse reaction [facility] 02/24 02:09 Follow up: Response: No adverse reaction; IV Status: Completed infusion; IV Intake: al5 100ml 02/23 23:03 Drug: Ativan IVP 1 mg IVP once Route: IVP; Site: right hand; [facility] 23:52 Follow up: Response: No adverse reaction [facility] 23:03 Drug: Labetalol IV 20 mg IV at per protocol once over 2 mins Route: IV; Rate: per al5 protocol; Infused Over: 2 mins; Site: right hand; 23:52 Follow up: Response: No adverse reaction [facility] 23:52 Follow up: Response: No adverse reaction [facility] 02/24 02:12 Follow up: Response: No adverse reaction; No change in condition; IV Status: Completed al5 infusion; IV Intake: 4ml 02/23 23:03 Drug: hydrALAZINE IVP 20 mg IVP once Route: IVP; Site: right hand; al5 23:53 Follow up: Response: No adverse reaction kb4 23:51 Drug: hydrALAZINE IVP 20 mg IVP once Route: IVP; Site: right antecubital; kb4 23:53 Follow up: Response: No adverse reaction kb4 23:51 Drug: Labetalol IV 20 mg IV at per protocol once over 2 mins Route: IV; Rate: per kb4 protocol; Infused Over: 2 mins; Site: right antecubital; 23:53 Follow up: Response: No adverse reaction 4 02/24 02:11 Follow up: Response: No adverse reaction; No change in condition; IV Status: Completed al5 infusion; IV Intake: 4ml 00:02 CANCELLED (Duplicate Order): [id number] grams PO once trevor 00:22 Drug: Ativan IVP 1 mg IVP once Route: IVP; Site: right hand; al5 02:10 Follow up: Response: No adverse reaction; RASS: Restless (+1) al5 00:39 Drug: Calcium Gluconate IVPB 1 grams IVPB once over 10 mins; (mix in NS 100 mL) Route: al5 IVPB; Infused Over: 10 mins; Site: right forearm; 01:26 Follow up: Response: No adverse reaction kb4 02:11 Follow up: Response: No adverse reaction; IV Status: Completed infusion; IV Intake: [id number] 00:39 Drug: D50W IVP 50 ml IVP once; (1 amp) Route: IVP; Site: right forearm; al5 01:28 Follow up: Response: No adverse reaction kb4 00:39 Drug: Furosemide IVP 100 mg IVP once; give over 2 minutes Route: IVP; Site: right al5 forearm; 01:27 Follow up: Response: No adverse reaction kb4 00:39 Drug: Albuterol Inhalation 5 mg Inhalation once Route: Inhalation; al5 02:10 Follow up: Response: No adverse reaction al5 00:39 Drug: Ipratropium Inhalation Aerosol 0.5 mg Inhalation once Route: Inhalation; al5 02:10 Follow up: Response: No adverse reaction al5 00:39 Drug: niCARdipine IV 5 mg/hr IV at per protocol See Administration Instructions; al5 (Standard concentration 25 mg / 250 mL NS); Recommended max rate 15 mg/hr; Titrate 2.5 mg/hr as often as every 15 minutes to achieve goal (see titration policy); Goal parameter SBP less than 160 mmHg Route: IV; Rate: per protocol; Site: right jugular; :20 Follow up: Response: No adverse reaction; Rate change 2.5 mg/hr al5 02:09 Follow up: Response: No adverse reaction; IV Status: Infusion continued upon transfer al5 00:40 Drug: Insulin Regular Human IVP 10 units IVP once {Co-Signature: cp4 ([facility] Jessica).} Route: IVP; Site: right forearm; Follow up: Response: No adverse reaction kb4 01:11 Drug: Sodium Bicarbonate IVP 1 amp IVP once; (50 mL); equals 50 mEq Route: IVP; Site: al5 right hand; Follow up: Response: No adverse reaction kb4 01:21 Drug: D5W IV 1000 ml, Sodium Bicarbonate IVP 150 mEq IV at 100 ml/hr continuous Route: al5 IV; Rate: 100 ml/hr; Site: right wrist; Follow up: Response: No adverse reaction kb4 02:09 Follow up: Response: No adverse reaction; IV Status: Infusion continued upon transfer al5 02:12 Not Given (Other Intervention Used): [id number] grams PO once; GIVE AL al5 Medication: 02/23 23:26 VIS not applicable for this client. al5 Intake: 02/24 02:09 IV: 100ml; Total: 100ml. al5 02:11 IV: 50ml; Total: 150ml. al5 02:11 IV: 4ml; Total: 154ml. al5 02:12 IV: 4ml; Total: 158ml. al5 Outcome: 00:49 ER care complete, transfer ordered by MD. murray 02:08 Transferred by helicopter [facility] to [facility], [address], 02:08 Condition: stable 02:08 Instructed on the need for transfer, 03:08 Patient left the ED. kb4 Signatures: Dispatcher [employer] EDJavon Guerra MD MD cha Jeffries, Jennifer [email or web address] Shaunna Villafuerte RN RN vc1 Dai Peck RN RN al5 Teresa Bryant RN RN kb4 Jessica Salazar cp4 Corrections: (The following items were deleted from the chart) 01:32 01:32 Reassessment: kb4 kb4 03:04 02/23 23:15 Reassessment: No changes from previously documented assessment. Patient is kb4 alert, oriented x 3, equal unlabored respirations, skin warm/dry/pink. SEE TRIAGE ASSESSMENT Patient states symptoms have not improved. kb4 02/24 03:07 03:05 unknown, unable to attain due to pts LOC kb4 kb4
--- NOTE | 2025-02-24 00:49 | EDPHYS ---
Physician Documentation [facility] Name: Shaun Lopez Age: 34 yrs Sex: Female : 1990 Arrival Date: 02/23/2025 Time: 22:24 Bed 5 Private MD: ED Physician Javon Rodriguez HPI: 02/24 00:32 This 34 yrs old Female presents to ER via EMS with complaints of Seizure. trevor 00:32 The patient presents after having a single isolated seizure, that lasted an unknown trevor period of time. Character of seizure(s): Loss of consciousness: the patient experienced loss of consciousness, Motor activity: generalized, shaking all over, Incontinence: none, Apnea: the patient did not experience apnea. Seizure onset: just prior to arrival. Context: the seizure(s) was witnessed, by family, sister. Seizure Hx: Cause: HTN. Associated injury: The patient did not suffer any apparent associated injury. Current symptoms: confusion. The patient has experienced similar episodes in the past, multiple times. 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 - Infectious Disease History:: Denies. - Social history:: Smoking status: unknown. ROS: 02/24 00:35 Cardiovascular: Positive for palpitations, trevor Respiratory: Positive for shortness of breath, at rest. MS/extremity: Positive for LEFT FOREARM AVF, Neuro: Positive for altered mental status, seizure activity, weakness, Exam: 00:35 Constitutional: This is a well developed, well nourished patient who is awake, alert, trevor and in no acute distress. Head/Face: Normocephalic, atraumatic. Eyes: Pupils equal round and reactive to light, extra-ocular motions intact. Lids and lashes normal. Conjunctiva and sclera are non-icteric and not injected. Cornea within normal limits. Periorbital areas with no swelling, redness, or edema. ENT: Nares patent. No nasal discharge, no septal abnormalities noted. Tympanic membranes are normal and external auditory canals are clear. Oropharynx with no redness, swelling, or masses, exudates, or evidence of obstruction, uvula midline. Mucous membranes moist. Neck: Trachea midline, no thyromegaly or masses palpated, and no cervical lymphadenopathy. Supple, full range of motion without nuchal rigidity, or vertebral point tenderness. No Meningismus. Chest/axilla: Normal chest wall appearance and motion. Nontender with no deformity. No lesions are appreciated. Cardiovascular: Regular rate and rhythm with a normal S1 and S2. No gallops, murmurs, or rubs. Normal PMI, no JVD. No pulse deficits. Abdomen/GI: Soft, non-tender, with normal bowel sounds. No distension or tympany. No guarding or rebound. No evidence of tenderness throughout. Back: No spinal tenderness. No costovertebral tenderness. Full range of motion. Female : Normal external genitalia. Skin: Warm, dry with normal turgor. Normal color with no rashes, no lesions, and no evidence of cellulitis. MS/ Extremity: Pulses equal, no cyanosis. Neurovascular intact. Full, normal range of motion., bilateral aka 00:35 Cardiovascular: Rate: normal, Rhythm: regular, Pulses: Pulses are 4+ in bilateral radial, brachial, femoral, popliteal, posterior tibial and and dorsalis pedis arteries.. JVD: is noted bilaterally, to the angle of the jaw, 00:35 ECG was reviewed by the Attending Physician. 00:35 Respiratory: mild respiratory distress is noted, moderate respiratory distress is noted, Respirations: normal, Breath sounds: rales, that are mild, rhonchi, that are moderate, stridor, is not appreciated, + upper airway congestion. Vital Signs: 02/23 22:41 BP 238 / 159; Pulse 96; Resp 22; Pulse Ox 98% ; vc1 23:00 BP 230 / 146; Pulse 93; Resp 18; Pulse Ox 97% on R/A; kb4 23:15 BP 189 / 129; Pulse 76; Resp 18; Pulse Ox 97% on R/A; kb4 23:30 BP 179 / 125; Pulse 76; Resp 18; Pulse Ox 98% on R/A; kb4 23:45 BP 196 / 129; Pulse 79; Resp 18; Pulse Ox 98% on R/A; kb4 02/24 00:15 BP 191 / 130; Pulse 73; Resp 18; Pulse Ox 99% on R/A; kb4 00:30 BP 183 / 132; Pulse 73; Resp 18; Pulse Ox 99% on R/A; kb4 01:00 BP 159 / 99; Pulse 88; Resp 18; Pulse Ox 100% on R/A; kb4 01:30 BP 164 / 96; Pulse 92; Resp 18; Pulse Ox 100% on R/A; kb4 01:33 Temp 97.6(A); Weight 70.76 kg; Height 5 ft. 3 in. ; al5 02:00 BP 162 / 107; Pulse 94; Resp 18; Pulse Ox 97% on R/A; kb4 01:33 Body Mass Index 27.63 (70.76 kg, 160.02 cm) al5 [place] Coma Score: 02/23 23:03 Eye Response: to pain(2). Motor Response: withdraws from pain(4). Verbal Response: al5 confused(4). Total: 10. Procedures: 02/24 00:53 Peripheral line: by aseptic technique a peripheral line was placed in the left external trevor jugular vein. MDM: 02/23 22:30 Medical Screening Exam initiated [facility] 02/24 00:41 Differential diagnosis: Anemia asthma, Bronchitis CHF exacerbation, pneumonia, trevor Pneumothorax pulmonary edema, reactive airway disease, Sepsis Unstable Angina. Antibiotic administration: Not indicated. Differential diagnosis: electrolyte abnormality, alcohol intoxication, hypoglycemia, intracranial bleed, meningitis, cerebral vascular accident, drug overdose, cardiac arrhythmia, seizure. Immunization status:. Data reviewed: vital signs, nurses notes, lab test result(s), EKG, radiologic studies. Consideration of Admission/Observation Escalation of care including admission/observation considered. I considered the following discharge prescriptions or medication management in the emergency department Medications were administered in the Emergency Department. See MAR. Independent interpretation of the following test(s) in the Emergency Department EKG: See my EKG interpretation above. Test considered but Not performed: MRI: NIO MRI BRAIN. 00:43 Care significantly affected by the following chronic conditions: Diabetes, trevor Hypertension, Chronic Kidney Disease, ESRD ON HD, SEIZURE. Counseling: I had a detailed discussion with the patient and/or guardian regarding the historical points, exam findings, and any diagnostic results supporting the discharge/admit diagnosis, the presence of at least one elevated blood pressure reading (>120/80) during this emergency department visit, lab results, the need to transfer to another facility, for higher level of care, [facility], DR ERLIN STARR FOR DIALYSIS , CANT ACCOMMODATE. 02/23 22:29 Order name: Basic Metabolic Panel; Complete Time: 23:[address] [facility] 02/23 22:29 Order name: CBC with Diff; Complete Time: 23:[address] [facility] 02/23 22:29 Order name: LFT's; Complete Time: 23:[address] [facility] 02/23 22:29 Order name: Magnesium; Complete Time: 23:[address] [facility] 02/23 22:29 Order name: NT PRO-BNP; Complete Time: 23:[address] [facility] 02/23 22:29 Order name: PT-INR; Complete Time: 23:[address] [facility] 02/23 22:29 Order name: Troponin HS; Complete Time: 23:[address] [facility] 02/23 22:29 Order name: Lipase; Complete Time: 23:[address] [facility] 02/23 22:29 Order name: XRAY Chest (1 view) [facility] 02/23 22:29 Order name: CT Head Brain wo Cont [facility] 02/23 22:29 Order name: Cardiac monitoring; Complete Time: 23:[address] [facility] 02/23 22:29 Order name: EKG - Nurse/Tech; Complete Time: 23:[address] [facility] 02/23 22:29 Order name: IV Saline Lock; Complete Time: 23:[address] [facility] 02/23 22:29 Order name: Labs collected and sent; Complete Time: 23:[address] [facility] 02/23 22:29 Order name: O2 Per Protocol; Complete Time: 23:[address] [facility] 02/23 22:29 Order name: O2 Sat Monitoring; Complete Time: 23:[address] [facility] 02/23 22:29 Order name: Seizure Precautions; Complete Time: 23:[address] [facility] EC:35 Rate is 93 beats/min. Rhythm is regular. QRS [place] is Normal. [place] interval is normal. QRS trevor interval is normal. QT interval is normal. No Q waves. T waves are Peaked. No ST changes noted. Clinical impression: LVH and Suggests hyperkalemia. Interpreted by me. Reviewed by me. Administered Medications: 02/23 23:03 Drug: NS 0.9% IV 500 ml 500 ml IV at 70 ml/hr once Volume: 500 ml; Route: IV; Rate: 70 al5 ml/hr; Site: right hand; 23:52 Follow up: Response: No adverse reaction [facility] 02/24 02:08 Follow up: Response: No adverse reaction; IV Status: Infusion continued upon transfer ca5 02/23 23:03 Drug: Keppra IV 1000 mg IV at per protocol once Route: IV; Rate: per protocol; Site: [facility] right hand; 23:52 Follow up: Response: No adverse reaction [facility] 02/24 02:09 Follow up: Response: No adverse reaction; IV Status: Completed infusion; IV Intake: al5 100ml 02/23 23:03 Drug: Ativan IVP 1 mg IVP once Route: IVP; Site: right hand; [facility] 23:52 Follow up: Response: No adverse reaction [facility] 23:03 Drug: Labetalol IV 20 mg IV at per protocol once over 2 mins Route: IV; Rate: per al5 protocol; Infused Over: 2 mins; Site: right hand; 23:52 Follow up: Response: No adverse reaction [facility] 23:52 Follow up: Response: No adverse reaction [facility] 02/24 02:12 Follow up: Response: No adverse reaction; No change in condition; IV Status: Completed al5 infusion; IV Intake: 4ml 02/23 23:03 Drug: hydrALAZINE IVP 20 mg IVP once Route: IVP; Site: right hand; ca5 23:53 Follow up: Response: No adverse reaction 4 23:51 Drug: hydrALAZINE IVP 20 mg IVP once Route: IVP; Site: right antecubital; 4 23:53 Follow up: Response: No adverse reaction [facility] 23:51 Drug: Labetalol IV 20 mg IV at per protocol once over 2 mins Route: IV; Rate: per kb4 protocol; Infused Over: 2 mins; Site: right antecubital; 23:53 Follow up: Response: No adverse reaction [facility] 02/24 02:11 Follow up: Response: No adverse reaction; No change in condition; IV Status: Completed al5 infusion; IV Intake: 4ml 00:02 CANCELLED (Duplicate Order): [id number] grams PO once trevor 00:22 Drug: Ativan IVP 1 mg IVP once Route: IVP; Site: right hand; al5 02:10 Follow up: Response: No adverse reaction; RASS: Restless (+1) al5 00:39 Drug: Calcium Gluconate IVPB 1 grams IVPB once over 10 mins; (mix in NS 100 mL) Route: al5 IVPB; Infused Over: 10 mins; Site: right forearm; :26 Follow up: Response: No adverse reaction kb4 02:11 Follow up: Response: No adverse reaction; IV Status: Completed infusion; IV Intake: 70qcos5 00:39 Drug: D50W IVP 50 ml IVP once; (1 amp) Route: IVP; Site: right forearm; al5 01:28 Follow up: Response: No adverse reaction kb4 00:39 Drug: Furosemide IVP 100 mg IVP once; give over 2 minutes Route: IVP; Site: right al5 forearm; : Follow up: Response: No adverse reaction kb4 00:39 Drug: Albuterol Inhalation 5 mg Inhalation once Route: Inhalation; al5 02:10 Follow up: Response: No adverse reaction al5 00:39 Drug: Ipratropium Inhalation Aerosol 0.5 mg Inhalation once Route: Inhalation; al5 02:10 Follow up: Response: No adverse reaction al5 00:39 Drug: niCARdipine IV 5 mg/hr IV at per protocol See Administration Instructions; al5 (Standard concentration 25 mg / 250 mL NS); Recommended max rate 15 mg/hr; Titrate 2.5 mg/hr as often as every 15 minutes to achieve goal (see titration policy); Goal parameter SBP less than 160 mmHg Route: IV; Rate: per protocol; Site: right jugular; 01:20 Follow up: Response: No adverse reaction; Rate change 2.5 mg/hr al5 02:09 Follow up: Response: No adverse reaction; IV Status: Infusion continued upon transfer al5 00:40 Drug: Insulin Regular Human IVP 10 units IVP once {Co-Signature: cp4 (tommie Salazar).} Route: IVP; Site: right forearm; :27 Follow up: Response: No adverse reaction kb4 01:11 Drug: Sodium Bicarbonate IVP 1 amp IVP once; (50 mL); equals 50 mEq Route: IVP; Site: al5 right hand; 01:27 Follow up: Response: No adverse reaction kb4 01:21 Drug: D5W IV 1000 ml, Sodium Bicarbonate IVP 150 mEq IV at 100 ml/hr continuous Route: al5 IV; Rate: 100 ml/hr; Site: right wrist; :27 Follow up: Response: No adverse reaction kb4 02:09 Follow up: Response: No adverse reaction; IV Status: Infusion continued upon transfer al5 02:12 Not Given (Other Intervention Used): [id number] grams PO once; GIVE IL al5 Disposition: 00:53 Critical Care:. trevor Disposition Summary: 02/24/25 00:49 Transfer Ordered Notes: Transfer Location: [facility] trevor Reason: Higher level of care trevor Condition: Serious trevor Problem: new trevor Symptoms: have improved trevor Accepting Physician: TO ICU, [facility](02/24/25 03:08) kb4 Diagnosis - Essential (primary) hypertension - UNCONTROLLED trevor - Anemia in chronic kidney disease trevor - Hyperkalemia trevor - Dependence on renal dialysis - POORLY COMPLIANT trevor - Altered mental status, unspecified trevor - Other seizures - POST ICTAL(02/24/25 01:22) trevor Forms: - Medication Reconciliation Form trevor - SBAR form trevor Critical care time excluding procedures: 00:53 Critical care time: Bedside Care: 40 minutes, Consultation: 25 minutes, Family trevor Intervention: 15 minutes. Total time: 80 minutes Signatures: Dispatcher [employer] EDMS Javon Rodriguez MD MD cha Calcote, Vanessa, RN RN vc1 Dai Peck RN RN al5 Teresa Bryant RN RN kb4 Jessica Salazar cp4 Corrections: (The following items were deleted from the chart) 02/23 22:29 22:29 BASIC METABOLIC PANEL+C.LAB.BRZ ordered. EDMS EDMS 22:29 22:29 CBC+H.LAB.BRZ ordered. EDMS EDMS 22:29 22:29 HEPATIC FUNCTION+C.LAB.BRZ ordered. EDMS EDMS 22:29 22:29 MAGNESIUM+C.LAB.BRZ ordered. EDMS EDMS 22:29 22:29 PROBNP+C.LAB.BRZ ordered. EDMS EDMS 22:29 22:29 PROTIME (+INR)+COAG.LAB.BRZ ordered. EDMS EDMS : 22:29 Troponin High Sensitivity+C.LAB.BRZ ordered. EDMS EDMS 22:29 LIPASE+C.LAB.BRZ ordered. EDMS EDMS : UA Rfx Leonidas Cult if indicated+U.LAB.BRZ ordered. EDMS EDMS : 22:30 Chest Single View+RAD.RAD.BRZ ordered. EDMS EDMS 22:30 Head Brain Wo Cont+CT.RAD.BRZ ordered. EDMS EDMS 02/24 00:02 00:00 Kayexalate PO 60 grams PO once ordered. trevor trevor : 00:49 TO ICU, [facility] trevor trevor 01: 00:49 Other seizures trevor trevor 03:08 01:22 TO ICU, [facility] kb4
[2025-02-24] MEDS ORDERED: SODIUM BICARB 50 MEQ/50ML VIAL ONE (00:54)
[2025-02-24] MEDS ORDERED: D5W 1,000 ML IV ONE (00:55)
--- NOTE | 2025-02-24 00:57 | RAD REPORT ---
EXAM: CT Head Without Intravenous Contrast CLINICAL HISTORY: The patient is 34 years old and is Female; SEIZURE TECHNIQUE: Axial computed tomography images of the head/brain without intravenous contrast. Sagittal and cor onal reformatted images were created and reviewed. This CT exam was performed using one or more of the following dose reduction techniques: automated exposure control, adjustment of the mA and/or kV according to patient size, and/or use of iterative reconstruction technique. COMPARISON: January 21, 2025 FINDINGS: ARTIFACTS: The exam is severely suboptimal secondary to significant motion artifact. BRAIN: The marques-white differentiation is relatively maintained. No definite hemorrhage is seen th ough exam is limited. VENTRICLES: No obvious ventriculomegaly. BONES/JOINTS: Evaluation for fracture suboptimal. SOFT TISSUES: Unremarkable. SINUSES: Grossly unremarkable. MASTOID AIR CELLS: Unremarkable as visualized. No mastoid effusion. ORBITS: Unremarkable as visualized. IMPRESSION: Severely limited examination secondary to significant motion artifact. The patient was scanned alex ral times and motion artifact is noted on all scans. No obvious acute intracranial hemorrhage. However, recommend repeat imaging. Electronically signed by: Stefany Graham MD 02/24/2025 12:50 AM CDT RP Due to temporary technical issues with the PACS/[employer] reporting system, reports are being asmita d by the in-house radiologist without review as a courtesy to ensure prompt reporting the interpreting radiologist is fully responsible for the content of the report. Transcribed Date/Time: 02/24/2025 12:56 AM
[2025-02-24 03:30] VITALS: TEMP 97.6
[2025-02-24 03:32] VITALS: BP 162/107; O2SAT 97
== END 2025-02-24 03:08 | disposition short-term general hospital (02) ==
LOC: ER 22:24
DX: G40.89 Other seizures (principal); I12.0 Hypertensive chronic kidney disease with stage 5 chronic kidney disease or end stage renal disease; N18.6 End stage renal disease; Z99.2 Dependence on renal dialysis; D63.1 Anemia in chronic kidney disease; E87.5 Hyperkalemia
CPT/HCPCS: 93005; 85025; 80048; 36415; 83735; 85610; 80076; 84484; 83690; 83880; 70450; 71045; 99285; 36569; J1938; J1953; J0612; J0360 ×2; J7613; J7644; J1815; J7040

== ENCOUNTER 2025-03-27 09:29 | Inpatient (IN) | payer OTHER ==
[2025-03-27 10:58] LABS: Absolute Lymphocytes (CBC) 0.5 K/uL (0.7-4.9); Hematocrit 28.1 % (36.0-45.0); Hemoglobin 9.4 g/dL (12.0-15.0); MCH 30.2 pg (27.0-35.0); MCHC 33.6 g/dL (32.0-36.0); MCV 89.9 fL (80-100); MPV 8.3 fL (7.6-11.3); Nucleated RBC Absolute Count 0.0 (0-0); Nucleated Red Blood Cells % 0.1 % (0-0); RBC Red Blood Cell Count 3.13 M/uL (3.86-4.86); White Blood Count 4.80 thou/uL (4.3-10.9)
[2025-03-27 11:08] LABS: PT Prothrombin Time 15.3 SECONDS (10-13.0); Protime INR 1.37
[2025-03-27] MEDS ORDERED: ONDANSETRON 4 MG/2 ML VIAL ONE ×3 (11:15→21:55)
[2025-03-27] MEDS ORDERED: MORPHINE 4 MG/ML SYR ONE (11:16)
[2025-03-27] MEDS ORDERED: LABETALOL 20 MG/4ML SYRINGE IV ONE ×2 (11:16→13:24)
[2025-03-27] MEDS ORDERED: HYDRALAZINE HCL 20 MG/ML VIAL ONE ×2 (11:16→13:23)
--- NOTE | 2025-03-27 11:16 | RAD REPORT ---
EXAMINATION: ONE VIEW CHEST XR CLINICAL INDICATION: CHEST PAIN TECHNIQUE: Frontal chest projection is submitted. Examination is limited by patient positioning and t echnique. COMPARISON: No prior exam. FINDINGS: Moderate bilateral pulmonary edema is suspected. The heart is moderately enlarged in size. No displac ed fractures identified. IMPRESSION: Moderate CHF versus volume overload pattern is suspected.
[2025-03-27 11:21] LABS: ALT/SGPT < 14 U/L (13-56); AST/SGOT 17 U/L (15-37); Albumin 3.8 g/dL (3.4-5.0); Albumin/Globulin Ratio 1.0 (1.1-1.8); Alkaline Phosphatase 87 U/L (45-117); Anion Gap 23.7 mEq/L (5.0-15.0); BUN Blood Urea Nitrogen 37 mg/dL (7-18); Globulin 3.7 g/dL (2.3-3.5); Glucose Level 64 mg/dL (74-106); Lipase 11 U/L (13-75); Potassium 4.7 mEq/L (3.5-5.1)
[2025-03-27] MEDS ORDERED: FAMOTIDINE 20 MG/2 ML VIAL IV ONE (11:30)
[2025-03-27 11:32] LABS: Albumin 3.8 g/dL (3.4-5.0); Albumin/Globulin Ratio 1.0 (1.1-1.8); Alkaline Phosphatase 86 U/L (45-117); Anion Gap 23.7 mEq/L (5.0-15.0); BUN Blood Urea Nitrogen 37 mg/dL (7-18); Bilirubin Indirect, Calculated 0.7 mg/dL (0.2-0.8); Globulin 3.8 g/dL (2.3-3.5); Glucose Level 62 mg/dL (74-106); Magnesium 2.4 mg/dL (1.6-2.4); Potassium 4.7 mEq/L (3.5-5.1); Troponin High Sensitivity 26.9 pg/mL (<58.9)
[2025-03-27 11:35] LABS: ALT/SGPT < 14 U/L (13-56); AST/SGOT < 10 U/L (15-37); NT PRO-BNP > 175000 pg/mL (<125)
--- NOTE | 2025-03-27 13:09 | EDPHYS ---
Physician Documentation [facility] Name: Shaun Lopez Age: 34 yrs Sex: Female : 1990 Arrival Date: 03/27/2025 Time: : Bed IW10 Private MD: NICHELLE Physician Javon Rodriguez HPI: 03/27 12:59 This 34 yrs old Female presents to ER via Wheelchair with complaints of trevor Vomiting. 12:59 The patient presents to the emergency department with nausea, vomiting, that is trevor intermittent. Onset: The symptoms/episode began/occurred 3 day(s) ago. Possible causes: unknown. The symptoms are aggravated by nothing. The symptoms are alleviated by nothing. Associated signs and symptoms: Pertinent positives: nausea, vomiting. Severity of symptoms: At their worst the symptoms were mild moderate in the emergency department the symptoms are unchanged. The patient has experienced similar episodes in the past, multiple times. 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 - Infectious Disease History:: Denies. - Social history:: Smoking status: Patient denies any tobacco usage or history of. ROS: 13:00 Constitutional: Negative for fever, chills, and weight loss, Eyes: Negative for injury, trevor pain, redness, and discharge, ENT: Negative for injury, pain, and discharge, Neck: Negative for injury, pain, and swelling, Cardiovascular: Negative for chest pain, palpitations, and edema, Respiratory: Negative for shortness of breath, cough, wheezing, and pleuritic chest pain, Back: Negative for injury and pain, : Negative for injury, bleeding, discharge, and swelling, MS/Extremity: Negative for injury and deformity, Skin: Negative for injury, rash, and discoloration, Neuro: Negative for headache, weakness, numbness, tingling, and seizure, Psych: Negative for depression, anxiety, suicide ideation, homicidal ideation, and hallucinations, Allergy/Immunology: Negative for hives, rash, and allergies, Endocrine: Negative for neck swelling, polydipsia, polyuria, polyphagia, and marked weight changes, Hematologic/Lymphatic: Negative for swollen nodes, abnormal bleeding, and unusual bruising, 13:00 Abdomen/GI: Positive for nausea and vomiting, abdominal cramps, Exam: 13:00 Constitutional: This is a well developed, well nourished patient who is awake, alert, trevor and in no acute distress. Head/Face: Normocephalic, atraumatic. Eyes: Pupils equal round and reactive to light, extra-ocular motions intact. Lids and lashes normal. Conjunctiva and sclera are non-icteric and not injected. Cornea within normal limits. Periorbital areas with no swelling, redness, or edema. ENT: Nares patent. No nasal discharge, no septal abnormalities noted. Tympanic membranes are normal and external auditory canals are clear. Oropharynx with no redness, swelling, or masses, exudates, or evidence of obstruction, uvula midline. Mucous membranes moist. Neck: Trachea midline, no thyromegaly or masses palpated, and no cervical lymphadenopathy. Supple, full range of motion without nuchal rigidity, or vertebral point tenderness. No Meningismus. Chest/axilla: Normal chest wall appearance and motion. Nontender with no deformity. No lesions are appreciated. Cardiovascular: Regular rate and rhythm with a normal S1 and S2. No gallops, murmurs, or rubs. Normal PMI, no JVD. No pulse deficits. Respiratory: Lungs have equal breath sounds bilaterally, clear to auscultation and percussion. No rales, rhonchi or wheezes noted. No increased work of breathing, no retractions or nasal flaring. Abdomen/GI: Soft, non-tender, with normal bowel sounds. No distension or tympany. No guarding or rebound. No evidence of tenderness throughout. Back: No spinal tenderness. No costovertebral tenderness. Full range of motion. Skin: Warm, dry with normal turgor. Normal color with no rashes, no lesions, and no evidence of cellulitis. MS/ Extremity: Pulses equal, no cyanosis. Neurovascular intact. Full, normal range of motion., bilateral aka Neuro: Awake and alert, GCS 15, oriented to person, place, time, and situation. Cranial nerves II-XII grossly intact. Motor strength 5/5 in all extremities. Sensory grossly intact. Cerebellar exam normal. Normal gait. Psych: Awake, alert, with orientation to person, place and time. Behavior, mood, and affect are within normal limits. 13:00 ECG was reviewed by the Attending Physician. 13:00 Musculoskeletal/extremity: Circulation is intact in all extremities. Sensation intact. Compartment Syndrome exam of affected extremity: is normal. DVT Exam: No signs of deep vein thrombosis. no pain, no swelling, no tenderness, negative Homans' sign noted on exam, no appreciated bluish discoloration, no erythema, no increased warmth, Vital Signs: 10:02 BP 247 / 152; Pulse 90; Resp 18; Temp 98.4; Pulse Ox 100% on R/A; Weight 63.5 kg; ll1 Height 5 ft. 1 in. ; Pain 8/10; 11:41 BP 211 / 148; Pulse 89; Resp 16; Pulse Ox 99% on R/A; cm10 12:30 BP 215 / 144; Pulse 88; Resp 16; Pulse Ox 95% on R/A; cm10 13:41 BP 209 / 133; Pulse 87; Resp 13; Pulse Ox 100% on R/A; cm10 14:00 BP 197 / 127; Pulse 86; Resp 19; Pulse Ox 99% on R/A; cm10 15:00 BP 180 / 106; Pulse 87; Resp 18; Pulse Ox 92% on R/A; cm10 15:30 BP 203 / 134; Pulse 88; Resp 16; Pulse Ox 99% ; cm10 16:00 BP 222 / 139; Pulse 90; Resp 18; Pulse Ox 100% on R/A; cm10 16:30 BP 222 / 145; Pulse 88; Resp 16; Pulse Ox 99% on R/A; cm10 10:02 Body Mass Index 26.45 (63.50 kg, 154.94 cm) ll1 10:02 Pain Scale: Adult ll1 MDM: 09:34 Medical Screening Exam initiated trevor 13:02 Differential diagnosis: Nonspecific abd pain. Differential Diagnosis sepsis, flu. Data trevor reviewed: vital signs, nurses notes, lab test result(s), EKG, radiologic studies, plain films. Consideration of Admission/Observation Patient was admitted/placed on observation. Escalation of care including admission/observation considered. I considered the following discharge prescriptions or medication management in the emergency department Medications were administered in the Emergency Department. See MAR. Independent interpretation of the following test(s) in the Emergency Department EKG: See my EKG interpretation above. Test considered but Not performed: Ultrasound NO 2 D ECHO, NO ABD ECHO, NO CT HEDA. Care significantly affected by the following chronic conditions: Hypertension. 03/27 09:34 Order name: CBC with Diff; Complete Time: 12:30 [facility] 03/27 09:34 Order name: CMP; Complete Time: 12:30 [facility] 03/27 09:34 Order name: Lipase; Complete Time: 12:30 [facility] 03/27 09:34 Order name: Test, Urine [facility] 03/27 09:34 Order name: UA Rfx Leonidas Cult if indicated [facility] 03/27 10:07 Order name: Basic Metabolic Panel; Complete Time: 12:30 [facility] 03/27 10:07 Order name: LFT's; Complete Time: 12:30 [facility] 03/27 10:07 Order name: Magnesium; Complete Time: 12:30 [facility] 03/27 10:07 Order name: NT PRO-BNP; Complete Time: 12:30 [facility] 03/27 10:07 Order name: PT-INR; Complete Time: 12:30 [facility] 03/27 10:07 Order name: Troponin HS; Complete Time: 12:30 [facility] 03/27 13:13 Order name: Valproic Acid (depakote) 03/27 14:44 Order name: Lactate w/ 2H reflex if indic. [facility] 03/27 14:44 Order name: Thyroid Stimulating Hormone [facility] 03/27 14:44 Order name: CBC with Automated Diff [facility] 03/27 14:44 Order name: CBC with Automated Diff [facility] 03/27 14:44 Order name: CBC with Automated Diff [facility] 03/27 14:44 Order name: CBC with Automated Diff [facility] 03/27 14:44 Order name: Comprehensive Metabolic Panel [facility] 03/27 14:44 Order name: Comprehensive Metabolic Panel [facility] 03/27 14:44 Order name: Comprehensive Metabolic Panel [facility] 03/27 14:44 Order name: Comprehensive Metabolic Panel [facility] 03/27 14:44 Order name: Troponin High Sensitivity [facility] 03/27 14:44 Order name: Blood Culture [facility] 03/27 23:46 Order name: Glucose, Ancillary Testing [facility] 03/28 05:24 Order name: Phosphorus [facility] 03/28 08:10 Order name: Glucose, Ancillary Testing [facility] 03/27 10:07 Order name: XRAY Chest (1 view); Complete Time: 12:30 [facility] 03/27 14:44 Order name: CONS Physician Consult [facility] 03/27 09:34 Order name: IV Saline Lock; Complete Time: 11:03 [facility] 03/27 09:34 Order name: Labs collected and sent; Complete Time: 11:03 [facility] 03/27 10:07 Order name: Cardiac monitoring; Complete Time: 11:40 [facility] 03/27 10:07 Order name: EKG - Nurse/Tech; Complete Time: 11:40 [facility] 03/27 10:07 Order name: O2 Per Protocol; Complete Time: 11:41 [facility] 03/27 10:07 Order name: O2 Sat Monitoring; Complete Time: 11:41 [facility] EC:00 Rate is 93 beats/min. Rhythm is regular. QRS [place] is Normal. [place] interval is normal. QRS trevor interval is normal. QT interval is normal. No Q waves. No ST changes noted. Clinical impression: NSR w/ Non-specific ST/T Changes, LVH, and No evidence of ischemia. Interpreted by me. Reviewed by me. Administered Medications: 10:05 CANCELLED (Duplicate Order): ns 0.9% 1000 ml IV at 1 bolus Per protocol; to be given as trevor a bolus over 60 minutes 11:25 Drug: hydrALAZINE IVP 20 mg IVP once Route: IVP; Site: right hand; cm10 11:55 Follow up: Response: No adverse reaction cm10 11:25 Drug: morphine IVP or IV 4 mg IVP once over 4 mins Route: IVP; Infused Over: 4 mins; cm10 Site: right hand; 11:55 Follow up: Response: No adverse reaction cm10 11:26 Drug: Ondansetron IVP 8 mg IVP once; over 2 minutes Route: IVP; Site: right hand; cm10 11:56 Follow up: Response: No adverse reaction cm10 11:41 Drug: Famotidine IVP 20 mg IVP once; dilute with 10 mL 0.9% NaCl; give over 2 minutes cm10 Route: IVP; Site: right hand; 12:11 Follow up: Response: No adverse reaction cm10 12:38 Drug: Labetalol IV 20 mg IV at per protocol once over 2 mins Route: IV; Rate: per cm10 protocol; Infused Over: 2 mins; Site: right hand; 12:40 Follow up: Response: No adverse reaction; IV Status: Completed infusion; IV Intake: 4ml cm10 13:31 Drug: hydrALAZINE IVP 20 mg IVP once Route: IVP; Site: right hand; cm10 14:00 Follow up: Response: No adverse reaction cm10 13:31 Drug: D50W IVP 25 ml IVP once; (0.5 amp) Route: IVP; Site: right hand; cm10 14:00 Follow up: Response: No adverse reaction cm10 13:55 Drug: Labetalol IV 20 mg IV at per protocol once over 2 mins Route: IV; Rate: per cm10 protocol; Infused Over: 2 mins; Site: right hand; 13:58 Follow up: Response: No adverse reaction; IV Status: Completed infusion; IV Intake: 4ml cm10 17:07 Not Given (Hemodynamic Parameters): nicardipine5 mg/hr IV at per protocol See cm10 Administration Instructions; (Standard concentration 25 mg / 250 mL NS); Recommended max rate 15 mg/hr; Titrate 2.5 mg/hr as often as every 15 minutes to achieve goal (see titration policy); Goal parameter SBP less than 160 mmHg 17:07 Not Given (Duplicate Order): [id number] mg IV at per protocol once over 2 mins cm10 17:07 Not Given (Duplicate Order): [id number] mg IVP once cm10 Disposition Summary: 03/27/25 13:08 Hospitalization Ordered Notes: Hospitalization Status: Inpatient Admission trevor Provider: Clovis Barclay trevor Condition: Fair trevor Problem: new trevor Symptoms: have improved trevor Bed/Room Type: Standard trevor Location: Telemetry/MedSurg (observation)(03/28/25 11:20) bc6 Room Assignment: 214(03/28/25 11:24) bc6 Diagnosis - Vomiting trevor - Essential (primary) hypertension - HYPERTENSIVE CRISIS trevor - End stage renal disease - ON HD trevor - Hypoglycemia, unspecified trevor - Chronic combined systolic (congestive) and diastolic (congestive) heart failure trevor Forms: - Medication Reconciliation Form trevor - SBAR form trevor - Leadership Thank You Letter trevor Critical care time excluding procedures: 13:09 Critical care time: Bedside Care: 30 minutes, Consultation: 15 minutes, Family trevor Intervention: 10 minutes. Total time: 55 minutes Signatures: Dispatcher [employer] EDTana Burgess Corey, MD MD cha Lewis, Lynsay, RN RN ll1 Luz Elena Jacobsen Clarissa RN RN cm10 Corrections: (The following items were deleted from the chart) 09:35 09:35 CBC+H.LAB.BRZ ordered. EDMS EDMS 09:35 09:35 COMPREHENSIVE METABOLIC PANEL+C.LAB.BRZ ordered. EDMS EDMS 09:35 09:35 LIPASE+C.LAB.BRZ ordered. EDMS EDMS 09:35 09:35 Test, Urine+UC.LAB.BRZ ordered. EDMS EDMS 09:35 09:35 UA Rfx Leonidas Cult if indicated+U.LAB.BRZ ordered. EDMS EDMS 10:05 09:34 NS 0.9% IV 1000 ml IV at 1 bolus Per protocol; to be given as a bolus over 60 trevor minutes ordered. trevor 16:22 13:08 Intensive Care Unit trevor bd 16:22 13:08 [facility] bd 03/28 11:20 03/27 16:22 [facility] ER HOLD bd 6 03/28 11:20 03/27 16:22 ERHOLD- bd 6 03/28 11:23 11:20 214 bc6 6 11:24 11:23 232 bc6 bc6
--- NOTE | 2025-03-27 13:09 | ER ---
Nurse's Notes [facility] Name: Shaun Lopez Age: 34 yrs Sex: Female : 1990 Arrival Date: 03/27/2025 Time: 09:29 Bed IW10 Private MD: Diagnosis: Vomiting;Essential (primary) hypertension-HYPERTENSIVE CRISIS;End stage renal disease-ON HD;Hypoglycemia, unspecified;Chronic combined systolic (congestive) and diastolic (congestive) heart failure Presentation: 03/27 09:44 Coronavirus screen: Client denies travel out of the [place] in the last 14 days. At this ll1 time, the client does not indicate any symptoms associated with coronavirus-19. Ebola Screen: Patient denies travel to an Ebola-affected area in the 21 days before illness onset. Initial Sepsis Screen: Does the patient meet any 2 criteria? No. Patient's initial sepsis screen is negative. Does the patient have a suspected source of infection? No. Patient's initial sepsis screen is negative. Risk Assessment: Do you want to hurt yourself or someone else? Patient reports no desire to harm self or others. 09:44 Method Of Arrival: Wheelchair ll1 09:44 Acuity: VERNA 2 ll1 10:02 Chief complaint: Patient states: N/V for 2 days. Missed dialysis yesterday. No known ll1 fever. Onset of symptoms was March 26, 2025. MLT: 17:13 unknown cm10 Historical: - Allergies: 09:44 Adhesives; ll1 09:44 AVOCADO (LAURUS PERSEA); ll1 09:44 Bactrim; ll1 09:44 Latex; ll1 - PMHx: 09:44 Dialysis; End stage renal disease; Seizures; brain tumor-removed; Migraines; ll1 Hypertension; - PSHx: 09:44 brain SX x 2; donor kidney removed; kidney biopsy; section; Fistula- L arm; ll1 kidney transplant; - Immunization history:: Adult Immunizations up to date. - Infectious Disease History:: Denies. - Social history:: Smoking status: Patient denies any tobacco usage or history of. Screenin:25 [facility] ED Fall Risk Assessment (Adult) History of falling in the last 3 months, cm10 including since admission No falls in past 3 months (0 pts) Confusion or Disorientation No (0 pts) Intoxicated or Sedated No (0 pts) Impaired Gait No (0 pts) Mobility Assist Device Used No (0 pt) Altered Elimination No (0 pt) Score/Fall Risk Level 0 - 2 = Low Risk Oriented to surroundings, Maintained a safe environment, Hourly rounding (assess needs \T\ fall precautionary measures) done. Abuse screen: Denies threats or abuse. Denies injuries from another. Nutritional screening: No deficits noted. Tuberculosis screening: No symptoms or risk factors identified. Assessment: 11:25 General: Appears uncomfortable, Behavior is calm, cooperative. Pain: Complains of pain cm10 in back and abdomen Pain currently is 8 out of 10 on a pain scale. Neuro: No deficits noted. Level of Consciousness is awake, alert, obeys commands, Oriented to person, place, time, situation, Appropriate for age. Respiratory: No deficits noted. Airway is patent Respiratory effort is even, unlabored, Respiratory pattern is regular, symmetrical. GI: Abdomen is non-distended, Reports nausea, vomiting. 12:41 Reassessment: Patient appears in no apparent distress at this time. Patient and/or cm10 family updated on plan of care and expected duration. Pain level reassessed. Patient is alert, oriented x 3, equal unlabored respirations, skin warm/dry/pink. Patient states symptoms have not improved. 14:00 Reassessment: Patient appears in no apparent distress at this time. Patient and/or cm10 family updated on plan of care and expected duration. Pain level reassessed. Patient is alert, oriented x 3, equal unlabored respirations, skin warm/dry/pink. Patient states symptoms have not improved. 16:00 Reassessment: Patient appears in no apparent distress at this time. Patient and/or cm10 family updated on plan of care and expected duration. Pain level reassessed. Patient is alert, oriented x 3, equal unlabored respirations, skin warm/dry/pink. 19:57 General: Appears in no apparent distress. comfortable, Behavior is calm, cooperative, mf3 appropriate for age. Neuro: Level of Consciousness is awake, alert, obeys commands, Oriented to person, place, time, situation. Cardiovascular: Capillary refill < 3 seconds. Respiratory: Airway is patent Trachea midline Respiratory effort is even, Respiratory pattern is regular. GI: Abdomen is flat. Vital Signs: 10:02 BP 247 / 152; Pulse 90; Resp 18; Temp 98.4; Pulse Ox 100% on R/A; Weight 63.5 kg; ll1 Height 5 ft. 1 in. ; Pain 8/10; 11:41 BP 211 / 148; Pulse 89; Resp 16; Pulse Ox 99% on R/A; cm10 12:30 BP 215 / 144; Pulse 88; Resp 16; Pulse Ox 95% on R/A; cm10 13:41 BP 209 / 133; Pulse 87; Resp 13; Pulse Ox 100% on R/A; cm10 14:00 BP 197 / 127; Pulse 86; Resp 19; Pulse Ox 99% on R/A; cm10 15:00 BP 180 / 106; Pulse 87; Resp 18; Pulse Ox 92% on R/A; cm10 15:30 BP 203 / 134; Pulse 88; Resp 16; Pulse Ox 99% ; cm10 16:00 BP 222 / 139; Pulse 90; Resp 18; Pulse Ox 100% on R/A; cm10 16:30 BP 222 / 145; Pulse 88; Resp 16; Pulse Ox 99% on R/A; cm10 10:02 Body Mass Index 26.45 (63.50 kg, 154.94 cm) ll1 10:02 Pain Scale: Adult ll1 ED Course: 09:31 Patient arrived in ED. mr 09:34 Javon Rodriguez MD is Attending Physician. trevor 09:44 Arm band placed on. ll1 09:46 Triage completed. ll1 09:50 Missed attempt(s): 24 gauge in right forearm. Bleeding controlled, band aid applied, bc6 catheter tip intact. 09:56 Missed attempt(s): 22 gauge in right antecubital area. Bleeding controlled, band aid bc6 applied, catheter tip intact. 10:01 Patient placed in an exam room, on a stretcher. ll1 10:05 Berneice Watters, JERALD is Primary Nurse. cm10 11:03 Initial lab(s) drawn, by me, sent to lab. Inserted saline lock: 22 gauge in right hand, cm10 using aseptic technique. Blood collected. Flushed with 10 mL NS. 11:10 XRAY Chest (1 view) In Process Unspecified. EDMS 11:40 EKG done, by seed technician. reviewed by Javon Rodriguez MD. ts3 13:06 Clovis Barclay MD is Hospitalizing Provider. trevor 16:00 No provider procedures requiring assistance completed. Patient admitted, IV remains in cm10 place. 17:13 Patient has correct armband on for positive identification. Bed in low position. Call cm10 light in reach. Side rails up X 1. Provided Education on: Need for admit. 19:51 Michelle Blackwell, RN is Primary Nurse. mf3 Administered Medications: 10:05 CANCELLED (Duplicate Order): ns 0.9% 1000 ml IV at 1 bolus Per protocol; to be given as trevor a bolus over 60 minutes 11:25 Drug: hydrALAZINE IVP 20 mg IVP once Route: IVP; Site: right hand; cm10 11:55 Follow up: Response: No adverse reaction cm10 11:25 Drug: morphine IVP or IV 4 mg IVP once over 4 mins Route: IVP; Infused Over: 4 mins; cm10 Site: right hand; 11:55 Follow up: Response: No adverse reaction cm10 11:26 Drug: Ondansetron IVP 8 mg IVP once; over 2 minutes Route: IVP; Site: right hand; cm10 11:56 Follow up: Response: No adverse reaction cm10 11:41 Drug: Famotidine IVP 20 mg IVP once; dilute with 10 mL 0.9% NaCl; give over 2 minutes cm10 Route: IVP; Site: right hand; 12:11 Follow up: Response: No adverse reaction cm10 12:38 Drug: Labetalol IV 20 mg IV at per protocol once over 2 mins Route: IV; Rate: per cm10 protocol; Infused Over: 2 mins; Site: right hand; 12:40 Follow up: Response: No adverse reaction; IV Status: Completed infusion; IV Intake: 4ml cm10 13:31 Drug: hydrALAZINE IVP 20 mg IVP once Route: IVP; Site: right hand; cm10 14:00 Follow up: Response: No adverse reaction cm10 13:31 Drug: D50W IVP 25 ml IVP once; (0.5 amp) Route: IVP; Site: right hand; cm10 14:00 Follow up: Response: No adverse reaction cm10 13:55 Drug: Labetalol IV 20 mg IV at per protocol once over 2 mins Route: IV; Rate: per cm10 protocol; Infused Over: 2 mins; Site: right hand; 13:58 Follow up: Response: No adverse reaction; IV Status: Completed infusion; IV Intake: 4ml cm10 17:07 Not Given (Hemodynamic Parameters): nicardipine5 mg/hr IV at per protocol See cm10 Administration Instructions; (Standard concentration 25 mg / 250 mL NS); Recommended max rate 15 mg/hr; Titrate 2.5 mg/hr as often as every 15 minutes to achieve goal (see titration policy); Goal parameter SBP less than 160 mmHg 17:07 Not Given (Duplicate Order): [id number] mg IV at per protocol once over 2 mins cm10 17:07 Not Given (Duplicate Order): [id number] mg IVP once cm10 Medication: 17:13 VIS not applicable for this client. cm10 Intake: 12:40 IV: 4ml; Total: 4ml. cm10 13:58 IV: 4ml; Total: 8ml. cm10 Outcome: 13:08 Decision to Hospitalize by Provider. trevor 16:00 Admitted to ER Hold. Please see [facility] for further documentation. cm10 16:00 Condition: stable cm10 16:00 Instructed on the need for admit, 03/28 13:06 Patient left the ED. iw Signatures: Dispatcher [employer] EDJavon Guerra MD MD cha Rivera, Marianna, Reg Beryl Dalton, RN Diego Woo RN RN ll1 Luz Elena Jacobsen Clarissa, RN RN cm10 Acacia Triana3 Michelle Blackwell RN RN mf3
[2025-03-27] MEDS ORDERED: D50W 25 GM/50 ML SYRINGE IV ONE (13:24)
[2025-03-27] MEDS ORDERED: ACETAMINOPHEN 325 MG TABLET PO PRN (14:35)
[2025-03-27] MEDS ORDERED: ALPRAZOLAM 0.25 MG TABLET PO PRN (14:35)
--- NOTE | 2025-03-27 14:53 | P.HP ---
Patient History Date of Service: 03/27/25 History of Present Illness: 34-year-old female with a past medical history of hypertension, lupus nephritis, seizure disorder, benign brain tumor with craniotomy in the past, ESRD, history of kidney transplant with rejection, presenting with hypertensive emergency alongside vomit.she states she has been vomiting for 2 days. She denies fevers, diarrhea. She does not make any urine. She denies any illicit drug use. She has not been around any recent sick contacts. She is vomiting at bedside and unable to give a detailed history due to the persistent nausea. She is alone. Allergies sulfamethoxazole [From Bactrim] Allergy (Verified 10/27/23 00:24) Itching/Hives/Rash trimethoprim [From Bactrim] Allergy (Verified 10/27/23 00:24) Itching/Hives/Rash Home Medications: Calcitrol [Rocaltrol*] 0.5 mcg PO DAILY #30 cap 01/15/25 Nifedipine Xl [Procardia XL*] 60 mg PO BID #60 tab 01/15/25 Sevelamer Carbonate [Renvela*] 1,600 mg PO TIDWM #180 tab 01/15/25 Vitamin D [Drisdol*] 50,000 unit PO Q7D@0900 #5 cap 01/15/25 carvediloL [Coreg*] 12.5 mg PO BID 6AM 6PM #60 tab 01/15/25 Hydralazine [Apresoline*] 10 mg PO BID #60 tab 01/16/25 Losartan Potassium [Cozaar*] 50 mg PO BID #60 tab 01/16/25 Docusate [Colace Cap*] 100 mg PO BID #60 cap 01/23/25 Epoetin [Procrit*] 10,000 unit IV EVERY HD vial 01/23/25 - Past Medical/Surgical History Diabetic: No -: HTN -: ESRD (Dr. Wills/ [facility]) -: Seizures (as a child) -: Hx Brain tumor -: Asthma -: DVT -: Lupus -: Chronic back pain -: CHF -: Pulmonary edema -: Csection x2 -: Brain Sx -: Kidney Transplant Nephrectomy/transplant was removed recently Psychosocial/ Personal History: Lives at home - Social History Alcohol use: No CD- Drugs: Yes Caffeine use: Yes Review of Systems General: Weakness Eyes: Unremarkable ENT: Unremarkable Respiratory: Unremarkable Cardiovascular: Unremarkable Gastrointestinal: Vomiting Genitourinary: Unremarkable Musculoskeletal: Unremarkable Integumentary: Unremarkable Physical Examination - Physical Exam General: In no apparent distress HEENT: Atraumatic Neck: Supple Respiratory: Clear to auscultation bilaterally Cardiovascular: Normal pulses Capillary refill: <2 Seconds Gastrointestinal: Normal bowel sounds Integumentary: Other (Left arm aVF) Neurological: Normal speech - Studies Laboratory Data (last 24 hrs) 03/27/25 03/27/25 03/27/25 10:47 10:47 10:47 WBC Hgb Hct Plt Count PT 15.3 H INR 1.37 Sodium 139 138 Potassium 4.7 4.7 BUN 37 H 37 H Creatinine 12.10 H 11.90 H Glucose 62 L 64 L Magnesium 2.4 Total Bilirubin 1.1 H 1.0 AST < 10 L 17 ALT < 14 < 14 Alkaline Phosphatase 86 87 Lipase 11 L 03/27/25 10:47 WBC 4.80 Hgb 9.4 L Hct 28.1 L Plt Count 115 L PT INR Sodium Potassium BUN Creatinine Glucose Magnesium Total Bilirubin AST ALT Alkaline Phosphatase Lipase Assessment and Plan - Plan Hypertensive emergency CHF exacerbation Vomiting Thrombocytopenia Hypoglycemia End-stage renal disease Anemia of CKD Pulmonary hypertension Admit to ICU Placed on Cardene drip Resume home Cozaar, amlodipine, Apresoline, Procardia Chest x-ray reviewed with edema Obtain echocardiogram Dialysis per nephrology, volume removal with dialysis session Zofran as needed for vomiting. Consider Phenergan if not improved Amp of D50 or glucagon as needed for hypoglycemia Hemoglobin stable, check iron level Xanax as needed Monitor platelets as evidence of endorgan damage DVT prophylaxis with heparin - Advance Directives Does patient have a Living Will: No Does patient have a Durable POA for Healthcare: No
[2025-03-27] MEDS ORDERED: Nicardipine/NS 25 MG/250 ML KIT IV ONE ×2 (16:45→22:27)
[2025-03-27] MEDS: Nicardipine/NS 25 MG/250 ML KIT IV SCH (16:57)
[2025-03-27] MEDS: ONDANSETRON 4 MG/2 ML VIAL IV PRN (16:58)
[2025-03-27] MEDS: HEPARIN 5000 UNIT/ML 1 ML VIAL SQ SCH (17:00)
[2025-03-27] MEDS ORDERED: D50W 25 GM/50 ML SYRINGE IV PRN (17:23)
[2025-03-27] MEDS ORDERED: GLUCAGON 1 MG/VIAL IV PRN (17:23)
[2025-03-27] MEDS ORDERED: EPOETIN ALFA 10,000 UNIT/ML VIAL IV SCH (18:15)
[2025-03-27 19:16] VITALS: BMI 26.4
[2025-03-27] MEDS: LOSARTAN POTASSIUM 50 MG TABLET PO SCH (21:00)
[2025-03-27] MEDS: DOCUSATE NA 100 MG CAP PO SCH (21:00)
[2025-03-27] MEDS: NIFEDIPINE XL 60 MG TABLET PO SCH (21:00)
[2025-03-27] MEDS: HYDRALAZINE HCL 10 MG TABLET PO SCH (21:00)
[2025-03-27] MEDS ORDERED: HYDRALAZINE HCL 10 MG TABLET ONE (21:54)
[2025-03-27] MEDS ORDERED: LOSARTAN POTASSIUM 50 MG TABLET ONE (21:54)
[2025-03-27] MEDS ORDERED: HEPARIN 5000 UNIT/ML 1 ML VIAL ONE (21:54)
[2025-03-27] MEDS ORDERED: DOCUSATE NA 100 MG CAP PO ONE (21:54)
[2025-03-27] MEDS ORDERED: HYDROMORPHONE HCL 1 MG/ML INJ ONE (21:55)
[2025-03-27] MEDS: HYDROMORPHONE HCL 1 MG/ML INJ IV PRN (22:08)
[2025-03-27 22:53] LABS: Thyroid Stimulating Hormone 1.71 uIU/mL (0.358-3.740); Troponin High Sensitivity 31.3 pg/mL (<58.9)
[2025-03-28] MEDS ORDERED: HYDROMORPHONE HCL 1 MG/ML INJ ONE (04:08)
[2025-03-28 04:48] LABS: Absolute Lymphocytes (CBC) 0.6 K/uL (0.7-4.9); Hematocrit 25.8 % (36.0-45.0); Hemoglobin 8.8 g/dL (12.0-15.0); MCH 30.3 pg (27.0-35.0); MCHC 34.0 g/dL (32.0-36.0); MCV 89.1 fL (80-100); MPV 8.1 fL (7.6-11.3); Nucleated RBC Absolute Count 0.0 (0-0); Nucleated Red Blood Cells % 0.3 % (0-0); RBC Red Blood Cell Count 2.90 M/uL (3.86-4.86); White Blood Count 3.60 thou/uL (4.3-10.9)
[2025-03-28 05:23] LABS: Albumin 3.4 g/dL (3.4-5.0); Albumin/Globulin Ratio 1.1 (1.1-1.8); Alkaline Phosphatase 74 U/L (45-117); Anion Gap 17.5 mEq/L (5.0-15.0); BUN Blood Urea Nitrogen 42 mg/dL (7-18); Globulin 3.2 g/dL (2.3-3.5); Glucose Level 107 mg/dL (74-106); Potassium 4.5 mEq/L (3.5-5.1)
[2025-03-28 05:24] LABS: ALT/SGPT < 14 U/L (13-56); AST/SGOT < 10 U/L (15-37)
[2025-03-28] MEDS ORDERED: MANNITOL 25% 12.5 GM/50 ML VIAL IV PRN (07:25)
[2025-03-28] MEDS ORDERED: NA CHLORIDE 0.9% 1,000 ML IV PRN (07:25)
[2025-03-28] MEDS ORDERED: EPOETIN ALFA 10,000 UNIT/ML VIAL IV SCH (07:30)
[2025-03-28] MEDS ORDERED: ALBUMIN HUMAN 25% 50 ML IV SCH (08:00)
[2025-03-28] MEDS: SEVELAMER CARBONATE 800 MG TABLET PO SCH (08:00)
[2025-03-28] MEDS ORDERED: LOSARTAN POTASSIUM 50 MG TABLET ONE (08:09)
[2025-03-28] MEDS ORDERED: HYDRALAZINE HCL 10 MG TABLET ONE (08:09)
[2025-03-28] MEDS ORDERED: HEPARIN 5000 UNIT/ML 1 ML VIAL ONE (08:09)
[2025-03-28] MEDS ORDERED: DOCUSATE NA 100 MG CAP PO ONE (08:10)
[2025-03-28] MEDS: CALCITROL 0.25 MCG CAP PO SCH (09:00)
[2025-03-28] MEDS: DRISDOL (VITAMIN D=ERGOCALCIFEROL) 50000 UNIT CAP PO SCH (09:00)
--- NOTE | 2025-03-28 11:32 | P.CNS ---
Date of Consult: 03/28/25 Reason for Consult: ESRD Requesting Physician: Aminah Butt Chief Complaint: N/V History of Present Illness: 34-year-old female with a past medical history of hypertension, lupus nephritis, seizure disorder, benign brain tumor with craniotomy in the past, ESRD, history of kidney transplant with rejection, presenting with hypertensive emergency alongside vomit.she states she has been vomiting for 2 days. She denies fevers, diarrhea. She does not make any urine. She denies any illicit drug use. She has not been around any recent sick contacts. She is vomiting at bedside and unable to give a detailed history due to the persistent nausea. She is alone. 12:59 This 34 yrs old Female presents to ER via Wheelchair with complaints of trevor Vomiting. 12:59 The patient presents to the emergency department with nausea, vomiting, that is trevor intermittent. Onset: The symptoms/episode began/occurred 3 day(s) ago. Possible causes: unknown. The symptoms are aggravated by nothing. The symptoms are alleviated by nothing. Associated signs and symptoms: Pertinent positives: nausea, vomiting. Severity of symptoms: At their worst the symptoms were mild moderate in the emergency department the symptoms are unchanged. The patient has experienced similar episodes in the past, multiple times. Allergies sulfamethoxazole [From Bactrim] Allergy (Verified 10/27/23 00:24) Itching/Hives/Rash trimethoprim [From Bactrim] Allergy (Verified 10/27/23 00:24) Itching/Hives/Rash Home medications list reviewed: Yes Home Medications: Carvedilol [Coreg] 25 mg PO BID 03/28/25 Clonidine Patch [Catapres-Tts 2*] 0.2 mg TOP 1X 03/28/25 Divalproex Sodium [Divalproex Sodium ER] 500 mg PO DAILY 03/28/25 Hydralazine HCl [Apresoline] 100 mg PO TID 03/28/25 Lacosamide 50 mg PO BID 03/28/25 Losartan Potassium [Cozaar*] 50 mg PO BID 03/28/25 Nifedipine [Procardia Xl] 90 mg PO BID 03/28/25 minoxidiL [Minoxidil] 5 mg PO DAILY 03/28/25 - Past Medical/Surgical History Diabetic: No -: HTN -: ESRD (Dr. Wills/ [place]) -: Seizures (as a child) -: Hx Brain tumor -: Asthma -: DVT -: Lupus -: Chronic back pain -: Diastolic CHF/ Pulmonary HTN -: Csection x2 -: Brain Sx -: Kidney Transplant Nephrectomy/transplant was removed recently Psychosocial/ Personal History: Lives at home - Social History Smoking Status: Unknown if ever smoked Alcohol use: No CD- Drugs: Yes Caffeine use: Yes Review of Systems 10-point ROS is otherwise unremarkable General: Weakness, Malaise Physical Examination Temp Pulse Resp BP Pulse Ox 97.9 F 73 18 137/93 H 97 03/28/25 09:00 03/28/25 09:00 03/28/25 09:00 03/28/25 09:00 03/28/25 09:00 General: In no apparent distress, Oriented x3, Cooperative HEENT: Atraumatic Neck: Supple Respiratory: Clear to auscultation bilaterally Cardiovascular: No edema, Regular rate/rhythm Gastrointestinal: Soft and benign, Non-distended Musculoskeletal: No clubbing, No contractures Integumentary: No rashes, No cyanosis Neurological: Normal speech Laboratory Data (last 24 hrs) 03/27/25 10:47 Sodium 139 Potassium 4.7 BUN 37 H Creatinine 12.10 H Glucose 62 L Magnesium 2.4 Total Bilirubin 1.1 H AST < 10 L ALT < 14 Alkaline Phosphatase 86 Imagings Data: EXAMINATION: ONE VIEW CHEST XR CLINICAL INDICATION: CHEST PAIN TECHNIQUE: Frontal chest projection is submitted. Examination is limited by patient positioning and technique. COMPARISON: No prior exam. FINDINGS: Moderate bilateral pulmonary edema is suspected. The heart is moderately enlarged in size. No displaced fractures identified. IMPRESSION: Moderate CHF versus volume overload pattern is suspected. Conclusions/Impression: ESRD on HD TTS Acute Metabolic Acidosis -Acute HD ordered Hypertensive Emergency Malignant HTN with CKD/ CHF -Cardene gtt as needed -Continue Coreg -Continue Losartan & Nifedipine Diastolic CHF, A/C Pulmonary HTN -Low sodium diet -UF with HD Anemia in CKD -Retacrit qHD CKD MBD Secondary HyperParathyroidism -Continue Ergo and Calcitriol -Continue Renvela Hospitalist and ER notes reviewed Thank you kindly for the consultation 45min patient care
--- NOTE | 2025-03-28 13:02 | P.PN ---
Date of Service: 03/28/20 Subjective: Seen resting comfortably in ER awake. Blood pressure is under control. She states the vomiting has improved. She denies fevers, chills, diarrhea. Review of Systems General: Weakness Eyes: Unremarkable ENT: Unremarkable Respiratory: Unremarkable Cardiovascular: Unremarkable Gastrointestinal: Vomiting Genitourinary: Unremarkable Musculoskeletal: Unremarkable Integumentary: Unremarkable Physical Examination - Physical Exam General: In no apparent distress HEENT: Atraumatic Neck: Supple Respiratory: Clear to auscultation bilaterally Cardiovascular: Normal pulses Capillary refill: <2 Seconds Gastrointestinal: Normal bowel sounds Integumentary: Other (Left arm aVF) Neurological: Normal speech - Studies Laboratory Data (last 24 hrs) 03/27/25 03/27/25 03/27/25 10:47 10:47 10:47 WBC Hgb Hct Plt Count PT 15.3 H INR 1.37 Sodium 139 138 Potassium 4.7 4.7 BUN 37 H 37 H Creatinine 12.10 H 11.90 H Glucose 62 L 64 L Magnesium 2.4 Total Bilirubin 1.1 H 1.0 AST < 10 L 17 ALT < 14 < 14 Alkaline Phosphatase 86 87 Lipase 11 L 03/27/25 10:47 WBC 4.80 Hgb 9.4 L Hct 28.1 L Plt Count 115 L PT INR Sodium Potassium BUN Creatinine Glucose Magnesium Total Bilirubin AST ALT Alkaline Phosphatase Lipase Assessment and Plan - Plan Hypertensive emergency CHF exacerbation Vomiting Thrombocytopenia Hypoglycemia End-stage renal disease Anemia of CKD Pulmonary hypertension 03/28 - Stop Cardene drip. Resume home blood pressure medications. hypertensive emergency resolved - Vomiting improved. On renal diet and attempt to tolerate foods today - Hypoglycemia resolved - Downgrade to floor - Dialysis per nephrology Admit to ICU Placed on Cardene drip Resume home Cozaar, amlodipine, Apresoline, Procardia Chest x-ray reviewed with edema Obtain echocardiogram Dialysis per nephrology, volume removal with dialysis session Zofran as needed for vomiting. Consider Phenergan if not improved Amp of D50 or glucagon as needed for hypoglycemia Hemoglobin stable, check iron level Xanax as needed Monitor platelets as evidence of endorgan damage DVT prophylaxis with heparin - Advance Directives Does patient have a Living Will: No Does patient have a Durable POA for Healthcare: No
[2025-03-28 13:24] VITALS: O2SAT 99
[2025-03-29] MEDS: HYDRALAZINE HCL 20 MG/ML VIAL IV PRN (01:07)
[2025-03-29 07:26] LABS: Absolute Lymphocytes (CBC) 0.5 K/uL (0.7-4.9); Hematocrit 27.6 % (36.0-45.0); Hemoglobin 9.1 g/dL (12.0-15.0); MCH 29.5 pg (27.0-35.0); MCHC 32.9 g/dL (32.0-36.0); MCV 89.9 fL (80-100); MPV 7.8 fL (7.6-11.3); Nucleated RBC Absolute Count 0.0 (0-0); Nucleated Red Blood Cells % 0.1 % (0-0); RBC Red Blood Cell Count 3.07 M/uL (3.86-4.86); White Blood Count 3.70 thou/uL (4.3-10.9)
[2025-03-29 07:49] LABS: Albumin 3.4 g/dL (3.4-5.0); Albumin/Globulin Ratio 1.0 (1.1-1.8); Alkaline Phosphatase 73 U/L (45-117); Anion Gap 11.8 mEq/L (5.0-15.0); BUN Blood Urea Nitrogen 20 mg/dL (7-18); Globulin 3.5 g/dL (2.3-3.5); Glucose Level 92 mg/dL (74-106); Potassium 3.8 mEq/L (3.5-5.1)
[2025-03-29 07:52] LABS: ALT/SGPT < 14 U/L (13-56); AST/SGOT < 10 U/L (15-37)
[2025-03-29 09:08] VITALS: BP 170/110; TEMP 98.1
[2025-03-29] MEDS: SCOPOLAMINE HYDROBROMIDE PATCH TD ONE (10:20)
--- NOTE | 2025-03-29 10:28 | P.PN ---
Nephrology note (S) Pt well known to me, complex hx and multiple, recurrent hospitalizations, see records for full details, cont missed tx with pt citing nausea, vomiting as reason for not coming in. Feels a bit better but has low appetite. Denies current dyspnea. Dialyzed yesterday (O) Vitals reviewed with EMR General: In no apparent distress, but appears chronically ill HEENT: Atraumatic, Normocephalic, not on O2 Neck: Supple Respiratory: Normal air movement, Other (Non tachypnec, no rhonchi) Cardiovascular: Regular rate/rhythm, No gallops Gastrointestinal: Soft and benign, Non-distended Musculoskeletal: No swelling, No contractures, Other (Lt UE AVF with thrill and bruit, dilated, aneurysmal) Integumentary: No rashes Neurological: Awake, alert, no tremors or myoclonus observed) Laboratory Data (last 24 hrs) Reviewed in the EMR Conclusions/Impression: A/P) 1. ESRD with atrophic [place] kidneys, failed renal transplant due to rejection, other s/p transplant nephrectomy, currently on iHD via AVF. On iHD TTS, last HD yesterday 2. Metab profile acceptable, next HD tmrw 3. Hypertensive urgency, recurrent. Malignant HTN with possible secondary HTN due to renal disorder, other -BP typically improves in the hospital but pt continues to report compliance with meds at home. Restart Clonidine patch as that is not currently ordered 4. No signs of gross hypervolemia currently, but has cardiomegaly, some diastolic dysfunction, pulm HTN -cont to maintain euvolemia 5. Recurrent N/V, unclear etiology, has had several CT assessments here, possibly related to her freq hypertensive episodes, will try a centrally acting agent such as Scopolamine as she reports other anti emetics have been ineffe ctive
[2025-03-29] MEDS: CLONIDINE 0.2 MG/PATCH TD SCH (10:30)
--- NOTE | 2025-03-29 12:00 | P.DS ---
Admission Date: 03/28/25 Discharge Date: 03/29/25 Disposition: ROUTINE DISCHARGE Discharge Condition: GOOD Reason for Admission: N/V Brief History of Present Illness: 34-year-old female with a past medical history of hypertension, lupus nephritis, seizure disorder, benign brain tumor with craniotomy in the past, ESRD, history of kidney transplant with rejection, presenting with hypertensive emergency alongside vomit.she states she has been vomiting for 2 days. She denies fevers, diarrhea. She does not make any urine. She denies any illicit drug use. She has not been around any recent sick contacts. She is vomiting at bedside and unable to give a detailed history due to the persistent nausea. She is alone. Hospital Course: Review of Systems General: Weakness Eyes: Unremarkable ENT: Unremarkable Respiratory: Unremarkable Cardiovascular: Unremarkable Gastrointestinal: Vomiting Genitourinary: Unremarkable Musculoskeletal: Unremarkable Integumentary: Unremarkable Physical Examination - Physical Exam General: In no apparent distress HEENT: Atraumatic Neck: Supple Respiratory: Clear to auscultation bilaterally Cardiovascular: Normal pulses Capillary refill: <2 Seconds Gastrointestinal: Normal bowel sounds Integumentary: Other (Left arm aVF) Neurological: Normal speech - Studies Laboratory Data (last 24 hrs) 03/27/25 03/27/25 03/27/25 10:47 10:47 10:47 WBC Hgb Hct Plt Count PT 15.3 H INR 1.37 Sodium 139 138 Potassium 4.7 4.7 BUN 37 H 37 H Creatinine 12.10 H 11.90 H Glucose 62 L 64 L Magnesium 2.4 Total Bilirubin 1.1 H 1.0 AST < 10 L 17 ALT < 14 < 14 Alkaline Phosphatase 86 87 Lipase 11 L 03/27/25 10:47 WBC 4.80 Hgb 9.4 L Hct 28.1 L Plt Count 115 L PT INR Sodium Potassium BUN Creatinine Glucose Magnesium Total Bilirubin AST ALT Alkaline Phosphatase Lipase Assessment and Plan - Plan Hypertensive emergency CHF exacerbation Vomiting Thrombocytopenia Hypoglycemia End-stage renal disease Anemia of CKD Pulmonary hypertension 03/28 - Stop Cardene drip. Resume home blood pressure medications. hypertensive emergency resolved - Vomiting improved. On renal diet and attempt to tolerate foods today - Hypoglycemia resolved - Downgrade to floor - Dialysis per nephrology - She states she has multiple blood pressure medications at home. Coreg, clonidine, losartan, minoxidil, Procardia adjusted prior to discharge, follow-up with nephrology as outpatient Admit to ICU Placed on Cardene drip Resume home Cozaar, amlodipine, Apresoline, Procardia Chest x-ray reviewed with edema Obtain echocardiogram Dialysis per nephrology, volume removal with dialysis session Zofran as needed for vomiting. Consider Phenergan if not improved Amp of D50 or glucagon as needed for hypoglycemia Hemoglobin stable, check iron level Xanax as needed Monitor platelets as evidence of endorgan damage DVT prophylaxis with heparin - Advance Directives Does patient have a Living Will: No Does patient have a Durable POA for Healthcare: No Vital Signs/Physical Exam: Temp Pulse Resp BP Pulse Ox 98.1 F 86 16 170/110 H 95 03/29/25 08:00 03/29/25 08:00 03/29/25 08:00 03/29/25 08:00 03/29/25 08:00 Laboratory Data at Discharge: WBC 3.70 thou/uL (4.3-10.9) L 03/29/25 07:14 Hgb 9.1 g/dL (12.0-15.0) L 03/29/25 07:14 Hct 27.6 % (36.0-45.0) L 03/29/25 07:14 Plt Count 116 thou/uL (152-406) L 03/29/25 07:14 PT 15.3 SECONDS (10-13.0) H 03/27/25 10:47 INR 1.37 03/27/25 10:47 Sodium 139 mEq/L (136-145) 03/29/25 07:14 Potassium 3.8 mEq/L (3.5-5.1) D 03/29/25 07:14 BUN 20 mg/dL (7-18) H 03/29/25 07:14 Creatinine 8.87 mg/dL (0.55-1.02) H 03/29/25 07:14 Glucose 92 mg/dL (74-106) 03/29/25 07:14 Phosphorus 8.2 mg/dL (2.5-4.9) H 03/28/25 04:00 Magnesium 2.4 mg/dL (1.6-2.4) 03/27/25 10:47 Total Bilirubin 0.7 mg/dL (0.2-1.0) 03/29/25 07:14 AST < 10 U/L (15-37) L 03/29/25 07:14 ALT < 14 U/L (13-56) 03/29/25 07:14 Alkaline Phosphatase 73 U/L (45-117) 03/29/25 07:14 Lipase 11 U/L (13-75) L 03/27/25 10:47 Home Medications: Divalproex Sodium [Divalproex Sodium ER] 500 mg PO DAILY 03/28/25 Lacosamide 50 mg PO BID 03/28/25 Calcitrol [Rocaltrol*] 0.5 mcg PO DAILY 30 Days #30 cap 03/29/25 Clonidine Patch [Catapres-Tts 2*] 0.2 mg TD EVERY 7TH DAY 30 Days #4 pat 03/29/25 Losartan Potassium [Cozaar*] 50 mg PO BID 30 Days #30 tab 03/29/25 Nifedipine Xl [Procardia XL*] 60 mg PO BID 30 Days #60 tab 03/29/25 Scopolamine 1 each TD EVERY 3RD DAY 14 Days #4 pat 03/29/25 Sevelamer Carbonate [Renvela*] 1,600 mg PO TIDWM 30 Days #90 tab 03/29/25 Vitamin D [Drisdol*] 50,000 unit PO Q7D@0900 30 Days #4 cap 03/29/25 carvediloL [Coreg*] 12.5 mg PO BID 6AM 6PM 30 Days #60 tab 03/29/25 minoxidiL [Minoxidil] 2.5 mg PO BEDTIME 30 Days #30 tab 03/29/25 New Medications: Clonidine Patch [Catapres-Tts 2*] 0.2 mg TD EVERY 7TH DAY 30 Days #4 pat carvediloL [Coreg*] 12.5 mg PO BID 6AM 6PM 30 Days #60 tab Losartan Potassium [Cozaar*] 50 mg PO BID 30 Days #30 tab Vitamin D [Drisdol*] 50,000 unit PO Q7D@0900 30 Days #4 cap minoxidiL [Minoxidil] 2.5 mg PO BEDTIME 30 Days #30 tab Nifedipine Xl [Procardia XL*] 60 mg PO BID 30 Days #60 tab Sevelamer Carbonate [Renvela*] 1,600 mg PO TIDWM 30 Days #90 tab Calcitrol [Rocaltrol*] 0.5 mcg PO DAILY 30 Days #30 cap Scopolamine 1 each TD EVERY 3RD DAY 14 Days #4 pat Followup: NONE,NONE [Primary Care Provider] -
== END 2025-03-29 12:49 | disposition home or self-care (01) | DRG 304 ==
LOC: ER 09:29 → ERHOLD 14:35 → OBSVTOIN 03-28 11:40 → 2ND 03-28 13:20
PROVIDERS: ADMIT Family Medicine; ATTEND Family Medicine
DX: I16.1 Hypertensive emergency (principal); I50.33 Acute on chronic diastolic (congestive) heart failure; N18.6 End stage renal disease; Z94.0 Kidney transplant status; N25.81 Secondary hyperparathyroidism of renal origin; I13.2 Hypertensive heart and chronic kidney disease with heart failure and with stage 5 chronic kidney disease, or end stage renal disease; D63.1 Anemia in chronic kidney disease; I27.20 Pulmonary hypertension, unspecified; E16.2 Hypoglycemia, unspecified; D69.6 Thrombocytopenia, unspecified; Z99.2 Dependence on renal dialysis; Z90.5 Acquired absence of kidney; Z88.1 Allergy status to other antibiotic agents; Z79.02 Long term (current) use of antithrombotics/antiplatelets; Z91.040 Latex allergy status; Z91.048 Other nonmedicinal substance allergy status; Z91.158 Patient's noncompliance with renal dialysis for other reason; Z79.899 Other long term (current) drug therapy
CPT/HCPCS: 36415; 71045; 80048; 80053; 80076; 80164; 82947; 83605; 83690; 83735; 83880; 84100; 84443; 84484; 85025; 85610; 87040; 93005; 93306; 96374; 96375; 99285; G0378; J0360; J0885; J1171; J1644; J2404; J2405

== ENCOUNTER 2025-04-09 11:13 | Inpatient (IN) | payer OTHER ==
[2025-04-09 12:24] LABS: Absolute Lymphocytes (CBC) 0.7 K/uL (0.7-4.9); Hematocrit 30.9 % (36.0-45.0); Hemoglobin 10.2 g/dL (12.0-15.0); MCH 29.6 pg (27.0-35.0); MCHC 33.0 g/dL (32.0-36.0); MCV 89.8 fL (80-100); MPV 8.5 fL (7.6-11.3); Nucleated RBC Absolute Count 0.0 (0-0); Nucleated Red Blood Cells % 0.2 % (0-0); RBC Red Blood Cell Count 3.44 M/uL (3.86-4.86); White Blood Count 5.40 thou/uL (4.3-10.9)
[2025-04-09] MEDS ORDERED: LABETALOL 20 MG/4ML SYRINGE IV ONE ×4 (12:24→17:29)
--- NOTE | 2025-04-09 12:30 | RAD REPORT ---
EXAMINATION: ONE VIEW CHEST XR CLINICAL INDICATION: volume overload TECHNIQUE: Frontal chest projection is submitted. Examination is limited by patient positioning and t echnique. COMPARISON: 03/27/2025 FINDINGS: Mild bilateral pulmonary edema is suspected. The heart is moderately enlarged in size. No displaced f ractures identified. IMPRESSION: Mild CHF versus volume overload pattern is suspected.
[2025-04-09 12:32] LABS: PT Prothrombin Time 15.5 SECONDS (10-13.0); Protime INR 1.38
[2025-04-09 13:06] LABS: AST/SGOT 11 U/L (15-37); Albumin 3.7 g/dL (3.4-5.0); Albumin/Globulin Ratio 1.0 (1.1-1.8); Alkaline Phosphatase 79 U/L (45-117); Anion Gap 20.2 mEq/L (5.0-15.0); BUN Blood Urea Nitrogen 56 mg/dL (7-18); Bilirubin Indirect, Calculated 0.5 mg/dL (0.2-0.8); Globulin 3.6 g/dL (2.3-3.5); Glucose Level 96 mg/dL (74-106); Magnesium 1.9 mg/dL (1.6-2.4); NT PRO-BNP > 35000 pg/mL (<125); Potassium 5.2 mEq/L (3.5-5.1); Troponin High Sensitivity 22.0 pg/mL (<58.9)
[2025-04-09 13:07] LABS: ALT/SGPT < 14 U/L (13-56)
--- NOTE | 2025-04-09 13:34 | EDPHYS ---
Physician Documentation [facility] Name: Shaun Lopez Age: 34 yrs Sex: Female : 1990 Arrival Date: 04/09/2025 Time: 11:13 Bed Treatment Private MD: ED Physician Denia Hassan HPI: 04/09 12:17 This 34 yrs old Female presents to ER via EMS with complaints of Nausea/Vomiting, sp3 missed dialysis, high blood pressure. 12:17 33-year-old female with known kidney disease ESRD on dialysis status post failed sp3 transplant, prior hepatic disease, now presents to the ED via EMS for high blood pressure, vomiting and missed dialysis. She is a Tuesday dialysis patient and her last dialysis was last . So she missed Tuesday as well as today due to her high blood pressure. Patient was sent over from dialysis. They are recommending to get the blood pressure under control and then admit her for hemodialysis in the hospital. Patient denies any chest pain, shortness of breath but does endorsed nausea, vomiting and general fatigue. Remainder of ROS negative.. Historical: - Allergies: 11:21 Adhesives; me1 11:21 AVOCADO (LAURUS PERSEA); me1 11:21 Bactrim; me1 11:21 Latex; me1 - PMHx: 11:21 brain tumor-removed; Dialysis; End stage renal disease; Hypertension; Migraines; me1 Seizures; - PSHx: 11:21 brain SX x 2; donor kidney removed; section; Fistula- L arm; kidney biopsy; me1 kidney transplant; - Immunization history:: Adult Immunizations up to date. - Infectious Disease History:: Denies. - Social history:: Smoking status: Patient denies any tobacco usage or history of. ROS: 12:19 Constitutional: Negative for fever, chills, and weight loss, Eyes: Negative for injury, sp3 pain, redness, and discharge, Neck: Negative for injury, pain, and swelling, Abdomen/GI: Negative for abdominal pain, nausea, vomiting, diarrhea, and constipation, Skin: Negative for injury, rash, and discoloration, Neuro: Negative for headache, weakness, numbness, tingling, and seizure, 12:19 All other systems are negative, Exam: 12:19 Constitutional: This is a well developed, well nourished patient who is awake, alert, sp3 and in no acute distress. Head/Face: Normocephalic, atraumatic. Eyes: Pupils equal round and reactive to light, extra-ocular motions intact. Lids and lashes normal. Conjunctiva and sclera are non-icteric and not injected. Cornea within normal limits. Periorbital areas with no swelling, redness, or edema. ENT: Nares patent. No nasal discharge, no septal abnormalities noted. External auditory canals are clear. Oropharynx with no redness, swelling, or masses, exudates, or evidence of obstruction, uvula midline. Mucous membranes moist. Neck: Trachea midline, no thyromegaly or masses palpated, and no cervical lymphadenopathy. Supple, full range of motion without nuchal rigidity, or vertebral point tenderness. No Meningismus. Chest/axilla: Normal chest wall appearance and motion. Nontender with no deformity. No lesions are appreciated. Respiratory: Lungs have equal breath sounds bilaterally, clear to auscultation and percussion. No rales, rhonchi or wheezes noted. No increased work of breathing, no retractions or nasal flaring. Abdomen/GI: Soft, non-tender, with normal bowel sounds. No distension or tympany. No guarding or rebound. No evidence of tenderness throughout. Back: No spinal tenderness. No costovertebral tenderness. Full range of motion. Skin: Warm, dry with normal turgor. Normal color with no rashes, no lesions, and no evidence of cellulitis. MS/ Extremity: Pulses equal, no cyanosis. Neurovascular intact. Full, normal range of motion. Neuro: Awake and alert, GCS 15, oriented to person, place, time, and situation. Cranial nerves II-XII grossly intact. Motor strength 5/5 in all extremities. Sensory grossly intact. Cerebellar exam normal. Normal gait. 12:19 Cardiovascular: Blood pressure noted to be 240 systolic., 12:27 ECG was reviewed by the Attending Physician. EKG demonstrates normal sinus rhythm at 73 sp3 bpm with normal intervals with QTc at 480, poor R wave progression leftward axis nonspecific ST/T changes without evidence of acute ischemia. Peaked T waves noted in isolated lead V4. Vital Signs: 11:18 BP 238 / 154; Pulse 76; Resp 18; Temp 98.2; Pulse Ox 100% ; me1 12:48 BP 218 / 141; Pulse 75; Resp 18; Pulse Ox 100% on R/A; af3 13:00 BP 199 / 158; Pulse 71; Resp 17; Pulse Ox 99% on R/A; cm10 13:15 BP 202 / 118; cm10 13:45 BP 213 / 138; Pulse 72; af3 14:00 BP 219 / 143; Pulse 69; af3 14:15 BP 205 / 137; Pulse 76; Resp 18; Pulse Ox 98% ; af3 14:30 BP 210 / 135; Pulse 71; Resp 18; Pulse Ox 98% on R/A; af3 14:55 BP 194 / 131; Pulse 69; af3 15:05 BP 203 / 130; af3 15:11 BP 188 / 125; Pulse 70; af3 15:54 BP 208 / 127; Pulse 70; Resp 18; Pulse Ox 96% on R/A; af3 MDM: 11:25 Medical Screening Exam initiated sp3 12:20 Data reviewed: vital signs, nurses notes, EMS record, old medical records, lab test sp3 result(s), EKG, radiologic studies. ED course: 34-year-old female with PMH above that with missed dialysis x 2 secondary to hypertensive urgency. Differential diagnosis includes hypertensive urgency versus volume overload from missed dialysis versus other cardiac process versus other metabolic process. We will get blood pressure control and patient will be dialyzed inpatient. I discussed the case with nephrology.. 13:03 ED course: Workup pending. Second dose of labetalol given.. sp3 13:32 ED course: Need for dialysis and potassium level 5.[address] Lambert.. sp3 04/09 11:53 Order name: Basic Metabolic Panel; Complete Time: 13:11 sp3 04/09 11:53 Order name: CBC with Diff; Complete Time: 13:04 sp3 04/09 11:53 Order name: LFT's; Complete Time: 13:11 sp3 04/09 11:53 Order name: Magnesium; Complete Time: 13:11 sp3 04/09 11:53 Order name: NT PRO-BNP; Complete Time: 13:11 sp3 04/09 11:53 Order name: PT-INR; Complete Time: 12:35 sp3 04/09 11:53 Order name: Troponin HS; Complete Time: 13:11 sp3 04/09 16:55 Order name: CBC with Automated Diff EDMS 04/09 16:55 Order name: CBC with Automated Diff EDMS 04/09 16:55 Order name: Comprehensive Metabolic Panel EDMS 04/09 16:55 Order name: Comprehensive Metabolic Panel EDMS 04/09 11:53 Order name: XRAY Chest (1 view); Complete Time: 12:35 sp3 04/09 11:53 Order name: Cardiac monitoring; Complete Time: 12:33 sp3 04/09 11:53 Order name: EKG - Nurse/Tech; Complete Time: 12:33 sp3 04/09 11:53 Order name: IV Saline Lock; Complete Time: 12:16 sp3 04/09 11:53 Order name: Labs collected and sent; Complete Time: 12:16 sp3 04/09 11:53 Order name: O2 Per Protocol; Complete Time: 12:33 sp3 04/09 11:53 Order name: O2 Sat Monitoring; Complete Time: 12:33 sp3 Administered Medications: 12:33 Drug: Labetalol IV 20 mg IV at calculated rate once over 2 mins Route: IV; Rate: af3 calculated rate; Infused Over: 2 mins; Site: right hand; 13:00 Follow up: Response: No adverse reaction; IV Status: Completed infusion af3 13:35 Drug: Labetalol IV 40 mg IV at bolus once over 2 mins; Report BP to MD 15 mins after af3 given please Route: IV; Rate: bolus; Infused Over: 2 mins; Site: right hand; 14:25 Follow up: Response: No adverse reaction; Blood pressure is unchanged; IV Status: af3 Completed infusion 14:25 Drug: Labetalol IV 60 mg IV at calculated rate once; administer at a rate of 2 mg /min af3 Route: IV; Rate: calculated rate; Site: right hand; 15:08 Follow up: Response: No adverse reaction; Blood pressure is unchanged; IV Status: af3 Completed infusion 14:50 Drug: Nitroglycerin Sublingual 0.4 mg Sublingual once; every five minute if needed x3 af3 Route: Sublingual; 14:55 Follow up: BP 194 / 131; Pulse 69 bpm; Response: No adverse reaction; Blood pressure is af3 unchanged 15:00 Drug: Nitroglycerin Sublingual 0.4 mg Sublingual once; every five minute if needed x3 af3 Route: Sublingual; 15:05 Follow up: BP 203 / 130; Response: No adverse reaction; Blood pressure is unchanged af3 15:06 Drug: Nitroglycerin Sublingual 0.4 mg Sublingual once; every five minute if needed x3 af3 Route: Sublingual; 15:11 Follow up: BP 188 / 125; Pulse 70 bpm; Response: No adverse reaction; Blood pressure is af3 lowered 17:53 Drug: Nitroglycerin Sublingual 0.4 mg Sublingual once; every five minute if needed x3 af3 {Note: given in dialysis by JERALD Morrissey [id number].} Route: Sublingual; 18:20 Follow up: Response: No adverse reaction af3 18:07 Drug: Labetalol IV 60 mg IV at calculated rate once; administer at a rate of 2 mg /min af3 {Note: administered in dialysis by Yuni MARQUES .} Route: IV; Rate: calculated rate; Site: right hand; 18:30 Follow up: Response: No adverse reaction; Blood pressure is unchanged; IV Status: af3 Completed infusion Disposition Summary: 04/09/25 13:33 Hospitalization Ordered Notes: Hospitalization Status: Inpatient Admission sp3 Provider: Tesfaye Llamas spCurry Location: Telemetry/MedSurg (Inpatient) sp3 Condition: Stable sp3 Problem: an acute exacerbation sp3 Symptoms: have worsened sp3 Bed/Room Type: Standard sp3 Room Assignment: [facility](04/09/25 17:03) bd Diagnosis - Hypertensive urgency, volume overload, end-stage renal disease, hyperkalemia sp3 Forms: - Medication Reconciliation Form sp3 - SBAR form sp3 - Leadership Thank You Letter sp3 Critical care time excluding procedures: 13:04 Critical care time: Bedside Care: 15 minutes, Consultation: 10 minutes, Family sp3 Intervention: 5 minutes. Total time: 30 minutes Signatures: Dispatcher [employer] EDMS Tana Valentin Setul, MD MD sp3 Lillian Miramontes PA-C PA-C sb4 Bianca Baptiste RN RN me1 Victorina Valadez RN RN af3 Corrections: (The following items were deleted from the chart) 11:53 11:53 Chest Single View+RAD.RAD.BRZ ordered. EDMS EDMS 17:03 13:33 sp3 bd
--- NOTE | 2025-04-09 13:34 | ER ---
Nurse's Notes [facility] Name: Shaun Lopez Age: 34 yrs Sex: Female : 1990 Arrival Date: 04/09/2025 Time: 11:13 Bed Treatment Private MD: Diagnosis: Hypertensive urgency, volume overload, end-stage renal disease, hyperkalemia Presentation: 04/09 11:18 Chief complaint: EMS states: toned out for n/v and HBP. Dialysis would not dialyze her me1 today. Has been throwing up her blood pressure meds x2 days. Dialysis put a clonidine patch 0.2 mg on right shoulder and clonidine 0.2 mg PO at 10:00. Coronavirus screen: At this time, the client does not indicate any symptoms associated with coronavirus-19. Ebola Screen: No symptoms or risks identified at this time. Initial Sepsis Screen: Does the patient meet any 2 criteria? No. Patient's initial sepsis screen is negative. Does the patient have a suspected source of infection? No. Patient's initial sepsis screen is negative. Risk Assessment: Do you want to hurt yourself or someone else? Patient reports no desire to harm self or others. Onset of symptoms was April 07, 2025. 11:18 Method Of Arrival: EMS: [facility] 11:18 Acuity: VERNA 3 me1 Historical: - Allergies: 11:21 Adhesives; me1 11:21 AVOCADO (LAURUS PERSEA); me1 11:21 Bactrim; me1 11:21 Latex; me1 - PMHx: 11:21 brain tumor-removed; Dialysis; End stage renal disease; Hypertension; Migraines; me1 Seizures; - PSHx: 11:21 brain SX x 2; donor kidney removed; section; Fistula- L arm; kidney biopsy; me1 kidney transplant; - Immunization history:: Adult Immunizations up to date. - Infectious Disease History:: Denies. - Social history:: Smoking status: Patient denies any tobacco usage or history of. Screenin:00 [facility] ED Fall Risk Assessment (Adult) History of falling in the last 3 months, af3 including since admission No falls in past 3 months (0 pts) Confusion or Disorientation No (0 pts) Intoxicated or Sedated No (0 pts) Impaired Gait No (0 pts) Mobility Assist Device Used No (0 pt) Altered Elimination No (0 pt) Score/Fall Risk Level 0 - 2 = Low Risk Oriented to surroundings, Maintained a safe environment, Educated pt \T\ family on fall prevention, incl call for assistance when getting out of bed. Abuse screen: Denies threats or abuse. Denies injuries from another. Nutritional screening: No deficits noted. Tuberculosis screening: No symptoms or risk factors identified. Assessment: 12:00 General: Appears in no apparent distress. uncomfortable, well groomed, well developed, af3 Behavior is calm, cooperative, appropriate for age. Pain: Complains of pain in left low back and right low back Pain currently is 8 out of 10 on a pain scale. Neuro: Level of Consciousness is awake, alert, obeys commands, Oriented to person, place, time, situation, Appropriate for age. Cardiovascular: Patient's skin is warm and dry. Respiratory: Airway is patent Respiratory effort is even, unlabored, Respiratory pattern is regular, symmetrical. GI: Abdomen is flat. 14:30 Reassessment: Patient appears in no apparent distress at this time. Patient and/or af3 family updated on plan of care and expected duration. Pain level reassessed. 15:54 Reassessment: Patient appears in no apparent distress at this time. Patient and/or af3 family updated on plan of care and expected duration. Pain level reassessed. Patient is alert, oriented x 3, equal unlabored respirations, skin warm/dry/pink. 16:03 Reassessment: being transported to dialysis . af3 Vital Signs: 11:18 BP 238 / 154; Pulse 76; Resp 18; Temp 98.2; Pulse Ox 100% ; me1 12:48 BP 218 / 141; Pulse 75; Resp 18; Pulse Ox 100% on R/A; af3 13:00 BP 199 / 158; Pulse 71; Resp 17; Pulse Ox 99% on R/A; cm10 13:15 BP 202 / 118; cm10 13:45 BP 213 / 138; Pulse 72; af3 14:00 BP 219 / 143; Pulse 69; af3 14:15 BP 205 / 137; Pulse 76; Resp 18; Pulse Ox 98% ; af3 14:30 BP 210 / 135; Pulse 71; Resp 18; Pulse Ox 98% on R/A; af3 14:55 BP 194 / 131; Pulse 69; af3 15:05 BP 203 / 130; af3 15:11 BP 188 / 125; Pulse 70; af3 15:54 BP 208 / 127; Pulse 70; Resp 18; Pulse Ox 96% on R/A; af3 ED Course: 11:17 Patient arrived in ED. bd 11:18 Denia Hassan MD is Attending Physician. sp3 11:21 Triage completed. me1 11:21 Arm band placed on Patient placed in waiting room. me1 12:00 Patient has correct armband on for positive identification. Bed in low position. Call af3 light in reach. Provided Education on: call light use . 12:00 No provider procedures requiring assistance completed. af3 12:09 Victorina Valadez, JERALD is Primary Nurse. af3 12:19 Initial lab(s) drawn, by me, sent to lab. Inserted saline lock: 22 gauge in right hand, af3 using aseptic technique. Blood collected. Flushed with 10 mL NS. 12:27 XRAY Chest (1 view) In Process Unspecified. EDMS 12:33 EKG done, by ed tech. reviewed by Denia Hassan MD. ts3 13:33 Tesfaye Llamas MD is Hospitalizing Provider. sp3 Administered Medications: 12:33 Drug: Labetalol IV 20 mg IV at calculated rate once over 2 mins Route: IV; Rate: af3 calculated rate; Infused Over: 2 mins; Site: right hand; 13:00 Follow up: Response: No adverse reaction; IV Status: Completed infusion af3 13:35 Drug: Labetalol IV 40 mg IV at bolus once over 2 mins; Report BP to MD 15 mins after af3 given please Route: IV; Rate: bolus; Infused Over: 2 mins; Site: right hand; 14:25 Follow up: Response: No adverse reaction; Blood pressure is unchanged; IV Status: af3 Completed infusion 14:25 Drug: Labetalol IV 60 mg IV at calculated rate once; administer at a rate of 2 mg /min af3 Route: IV; Rate: calculated rate; Site: right hand; 15:08 Follow up: Response: No adverse reaction; Blood pressure is unchanged; IV Status: af3 Completed infusion 14:50 Drug: Nitroglycerin Sublingual 0.4 mg Sublingual once; every five minute if needed x3 af3 Route: Sublingual; 14:55 Follow up: BP 194 / 131; Pulse 69 bpm; Response: No adverse reaction; Blood pressure is af3 unchanged 15:00 Drug: Nitroglycerin Sublingual 0.4 mg Sublingual once; every five minute if needed x3 af3 Route: Sublingual; 15:05 Follow up: BP 203 / 130; Response: No adverse reaction; Blood pressure is unchanged af3 15:06 Drug: Nitroglycerin Sublingual 0.4 mg Sublingual once; every five minute if needed x3 af3 Route: Sublingual; 15:11 Follow up: BP 188 / 125; Pulse 70 bpm; Response: No adverse reaction; Blood pressure is af3 lowered 17:53 Drug: Nitroglycerin Sublingual 0.4 mg Sublingual once; every five minute if needed x3 af3 {Note: given in dialysis by JERALD Morrissey [id number].} Route: Sublingual; 18:20 Follow up: Response: No adverse reaction af3 18:07 Drug: Labetalol IV 60 mg IV at calculated rate once; administer at a rate of 2 mg /min af3 {Note: administered in dialysis by Yuni MARQUES .} Route: IV; Rate: calculated rate; Site: right hand; 18:30 Follow up: Response: No adverse reaction; Blood pressure is unchanged; IV Status: af3 Completed infusion Medication: 12:00 VIS not applicable for this client. af3 Outcome: 13:33 Decision to Hospitalize by Provider. sp3 18:05 Patient left the ED. me1 Signatures: Dispatcher [employer] EDTana Burgess Setul, MD MD sp3 Berenice Watters RN RN 10 Bianca Baptiste RN RN me1 Victorina Valadez RN RN af3 Acacia Triana 3
[2025-04-09] MEDS ORDERED: NITROGLYCERIN 0.4 MG/TAB SL ONE (14:47)
[2025-04-09] MEDS ORDERED: NA CHLORIDE 0.9% 1,000 ML IV PRN (15:30)
[2025-04-09] MEDS ORDERED: MANNITOL 25% 12.5 GM/50 ML VIAL IV PRN (15:30)
[2025-04-09] MEDS ORDERED: ALBUMIN HUMAN 25% 50 ML IV SCH (16:00)
[2025-04-09] MEDS ORDERED: ONDANSETRON 4 MG/2 ML VIAL IV PRN (16:50)
[2025-04-09] MEDS ORDERED: ACETAMINOPHEN 325 MG TABLET PO PRN (16:50)
--- NOTE | 2025-04-09 16:50 | P.HP ---
Certification for Inpatient Patient admitted to: Inpatient With expected LOS: >2 Midnights Practitioner: I am a practitioner with admitting privileges, knowledge of patient current condition, hospital course, and medical plan of care. Services: Services provided to patient in accordance with Admission requirements found in Title 42 Section 412.3 of the Code of Federal Regulations Patient History Date of Service: 04/09/25 Reason for admission: Hypertensive urgency History of Present Illness: 34 yrs old Female with past medical history brain tumor-removed; Dialysis; End stage renal disease; Hypertension; Migraines; Seizures, brain SX x 2; donor kidney removed; section; Fistula- L arm; kidney biopsy with complaints of Nausea/Vomiting,missed dialysis, high blood pressure. She presents to the ED via EMS for high blood pressure, vomiting and missed dialysis. She is a Tuesday dialysis patient and her last dialysis was last . So she missed Tuesday as well as today due to her high blood pressure. Patient was sent over from dialysis. Patient denies any chest pain, shortness of breath but does endorsed nausea, vomiting and general fatigue. Patient was assessed in the ER and was admitted for further management. Patient was noted to have a blood pressure of 240 systolic and was admitted to the ICU and was started on Cardene drip Allergies sulfamethoxazole [From Bactrim] Allergy (Verified 10/27/23 00:24) Itching/Hives/Rash trimethoprim [From Bactrim] Allergy (Verified 10/27/23 00:24) Itching/Hives/Rash Home medications list reviewed: Yes Home Medications: Lacosamide 50 mg PO BID 03/28/25 Clonidine Patch [Catapres-Tts 2*] 0.2 mg TD EVERY 7TH DAY 30 Days #4 pat 03/29/25 Losartan Potassium [Cozaar*] 50 mg PO BID 30 Days #30 tab 03/29/25 Nifedipine Xl [Procardia XL*] 60 mg PO BID 30 Days #60 tab 03/29/25 Sevelamer Carbonate [Renvela*] 1,600 mg PO TIDWM 30 Days #90 tab 03/29/25 carvediloL [Coreg*] 12.5 mg PO BID 6AM 6PM 30 Days #60 tab 03/29/25 minoxidiL [Minoxidil] 2.5 mg PO BEDTIME 30 Days #30 tab 03/29/25 - Past Medical/Surgical History Diabetic: No Past Medical History: Reviewed- Non-Contributory -: HTN -: ESRD (Dr. Wills/ Juan A) -: Seizures (as a child) -: Hx Brain tumor -: Asthma -: DVT -: Lupus -: Chronic back pain -: Diastolic CHF/ Pulmonary HTN -: Pulmonary edema Past Surgical History: Reviewed- Non-Contributory -: Csection x2 -: Brain Sx -: Kidney Transplant Nephrectomy/transplant was removed recently Psychosocial/ Personal History: Lives at home - Social History Smoking Status: Never smoker Alcohol use: No CD- Drugs: Yes Caffeine use: Yes Review of Systems 10-point ROS is otherwise unremarkable Physical Examination - Vital Signs Temperature: 98.4 F Blood Pressure: 238/154 Pulse: 76 Respirations: 18 Pulse Ox (%): 94 - Physical Exam General: Alert, Oriented x3, Mild distress HEENT: Atraumatic, Normocephalic Neck: Supple Respiratory: Clear to auscultation bilaterally, Normal air movement Cardiovascular: Regular rate/rhythm, Normal S1 S2 Capillary refill: <2 Seconds Gastrointestinal: Soft and benign, W/out hepatosplenomegaly Musculoskeletal: No clubbing Integumentary: No rashes Neurological: Other (Alert awake nonfocal) Lymphatics: No axilla or inguinal lymphadenopathy - Studies Laboratory Data (last 24 hrs) 04/09/25 04/09/25 04/09/25 12:10 12:10 12:10 WBC 5.40 Hgb 10.2 L Hct 30.9 L Plt Count 139 L PT 15.5 H INR 1.38 Sodium 135 L Potassium 5.2 H BUN 56 H Creatinine 13.90 H Glucose 96 Magnesium 1.9 Total Bilirubin 0.8 AST 11 L ALT < 14 Alkaline Phosphatase 79 Assessment and Plan - Plan Hyperkalemia ESRD on dialysis Missed dialysis Advice dialysis compliance Nephrology consulted Patient is getting dialysis today Renal parameters monitored Electrolytes monitor and replace accordingly Hypertensive emergency Admitted to the ICU Started on Cardene drip Home medications titrated Chronic back pain Continue home medications and reassess Morphine as needed GI/DVT prophylaxis Advanced directive full code Discharge Plan: Home Plan to discharge in: 48 Hours - Advance Directives Does patient have a Living Will: No Does patient have a Durable POA for Healthcare: No - Code Status/Comfort Care Code Status: Full Code Time Spent Managing Pts Care (In Minutes): 48
[2025-04-09] MEDS: Nicardipine/NS 25 MG/250 ML KIT IV SCH (20:05)
[2025-04-09] MEDS: ACETAMIN/CAFFEINE/BUTALB TAB PO PRN (20:46)
[2025-04-09] MEDS ORDERED: HYDROCODONE/APAP 5/325 MG TAB PO PRN (21:38)
[2025-04-09] MEDS: HEPARIN 5000 UNIT/ML 1 ML VIAL SQ SCH (22:22)
[2025-04-09] MEDS: LOSARTAN POTASSIUM 50 MG TABLET PO SCH (22:22)
[2025-04-09] MEDS: MORPHINE 2 MG/ML SYR IV PRN (22:23)
[2025-04-09] MEDS: LACOSAMIDE 50 MG TABLET PO SCH (22:23)
[2025-04-10 00:42] VITALS: BMI 27.3
--- NOTE | 2025-04-10 02:49 | P.PN ---
Date of Service: 04/10/25 Subjective Patient is doing well with no new complaints. Clinical symptoms are stable. Working on discharge planning. Physical Examination - Vital Signs reviewed - Physical Exam General: Alert, Oriented x3, Mild distress Respiratory: Clear to auscultation bilaterally, Normal air movement Cardiovascular: Regular rate/rhythm, Normal S1 S2 Gastrointestinal: Soft and benign, W/out hepatosplenomegaly Musculoskeletal: No clubbing Integumentary: No rashes Neurological: Other (Alert awake nonfocal) Assessment and Plan - Assessment/Plan Continue with plan of care as mentioned below: 1. Hyperkalemia in a pt with ESRD on hemodialysis; Nephrology consulted. Patient is getting dialysis today. Electrolytes monitor and replace accordingly 2. Hypertensive emergency; Admitted to the ICU. Started on Cardene drip. Resume home meds and wean offCardene drip. Adjust have oral antihypertensives. Arrange for discharge planning. 3. Chronic back pain; Continue home medications and reassess. Morphine as needed GI/DVT prophylaxis Advanced directive full code Discharge Plan: Home Plan to discharge in: 24 Hours - Advance Directives Does patient have a Living Will: No Does patient have a Durable POA for Healthcare: No - Code Status/Comfort Care Code Status: Full Code Time Spent Managing Pts Care (In Minutes):20
[2025-04-10] MEDS: ISOSORBIDE DINIT 20 MG TAB PO SCH (03:14)
[2025-04-10 05:09] LABS: Absolute Lymphocytes (CBC) 0.7 K/uL (0.7-4.9); Hematocrit 23.6 % (36.0-45.0); Hemoglobin 8.0 g/dL (12.0-15.0); MCH 30.0 pg (27.0-35.0); MCHC 33.9 g/dL (32.0-36.0); MCV 88.4 fL (80-100); MPV 8.6 fL (7.6-11.3); Nucleated RBC Absolute Count 0.0 (0-0); Nucleated Red Blood Cells % 0.1 % (0-0); RBC Red Blood Cell Count 2.67 M/uL (3.86-4.86); White Blood Count 4.00 thou/uL (4.3-10.9)
[2025-04-10 05:42] LABS: Albumin 3.1 g/dL (3.4-5.0); Albumin/Globulin Ratio 1.1 (1.1-1.8); Alkaline Phosphatase 77 U/L (45-117); Anion Gap 12.0 mEq/L (5.0-15.0); BUN Blood Urea Nitrogen 38 mg/dL (7-18); Globulin 2.8 g/dL (2.3-3.5); Glucose Level 100 mg/dL (74-106); Potassium 4.0 mEq/L (3.5-5.1)
[2025-04-10 05:46] LABS: ALT/SGPT < 14 U/L (13-56); AST/SGOT < 10 U/L (15-37)
--- NOTE | 2025-04-10 06:57 | P.PN ---
Date of Service: 04/10/25 Subjective: Physical Exam: GEN: Alert, oriented, NAD CV: Regular rate and rhythm, no edema Pulm:Nonlabored respirations on room air, clear bilaterally ABD: soft, nontender, nondistended Neuro: Normal speech, normal affect Problem List: Hypertensive urgency ESRD on HD - missed HD Acute on chronic anemia chronic CHF Hx seizures/Migraines Hx Brain tumor s/p surgery Hx Asthma Hx RUE DVT (2023) Hypertensive urgency ESRD on HD - missed HD on admission, presents with significantly elevated BP, nausea/vomiting. She reports missing dialysis x2 this week (Tue+) Last Dialysis prior to admission was . BP 240 on arrival. Started on cardene drip and admitted to ICU for close monitoring Wean cardene drip as tolerated Resume home losartan, isosorbide, coreg, clonidine, renvela CXR with Mild CHF vs volume overload Nephrology consulted Dialysis per nephrology Continue to monitor renal function, electrolytes Monitor on telemetry. Troponin negative. Acute on chronic anemia Daily labs. Monitor hgb. Hgb 7-9s last few months chronic CHF Hx seizures/Migraines Hx Brain tumor s/p surgery Hx Asthma Hx RUE DVT (2023) confirm home meds, restart as appropriate VTE: heparin sq Code: Full Dispo: Home Pending better BP control off cardene drip, tolerating oral intake Time Spent Managing Pts Care (In Minutes): 55
[2025-04-10] MEDS ORDERED: ISOSORBIDE DINIT 20 MG TAB PO SCH (08:00)
[2025-04-10] MEDS: SEVELAMER CARBONATE 800 MG TABLET PO SCH (08:04)
[2025-04-10] MEDS: CALCITROL 0.25 MCG CAP PO SCH (08:08)
--- NOTE | 2025-04-10 10:12 | P.CNS ---
Date of Consult: 04/09/25 Reason for Consult: ESRD Requesting Physician: Clovis Barclay Chief Complaint: Hypertensive urgency History of Present Illness: 7 This 34 yrs old Female presents to ER via EMS with complaints of Nausea/Vomiting, sp3 missed dialysis, high blood pressure. 12:17 33-year-old female with known kidney disease ESRD on dialysis status post failed sp3 transplant, prior hepatic disease, now presents to the ED via EMS for high blood pressure, vomiting and missed dialysis. She is a Tuesday dialysis patient and her last dialysis was last . So she missed Tuesday as well as today due to her high blood pressure. Patient was sent over from dialysis. They are recommending to get the blood pressure under control and then admit her for hemodialysis in the hospital. Patient denies any chest pain, shortness of b reath but does endorsed nausea, vomiting and general fatigue. Remainder of ROS negative. Allergies sulfamethoxazole [From Bactrim] Allergy (Verified 10/27/23 00:24) Itching/Hives/Rash trimethoprim [From Bactrim] Allergy (Verified 10/27/23 00:24) Itching/Hives/Rash Home medications list reviewed: Yes Home Medications: Lacosamide 50 mg PO BID 03/28/25 Clonidine Patch [Catapres-Tts 2*] 0.2 mg TD EVERY 7TH DAY 30 Days #4 pat 03/29/25 Losartan Potassium [Cozaar*] 50 mg PO BID 30 Days #30 tab 03/29/25 Nifedipine Xl [Procardia XL*] 60 mg PO BID 30 Days #60 tab 03/29/25 Sevelamer Carbonate [Renvela*] 1,600 mg PO TIDWM 30 Days #90 tab 03/29/25 carvediloL [Coreg*] 12.5 mg PO BID 6AM 6PM 30 Days #60 tab 03/29/25 minoxidiL [Minoxidil] 2.5 mg PO BEDTIME 30 Days #30 tab 03/29/25 - Past Medical/Surgical History Diabetic: No -: HTN -: ESRD (Dr. Wills/ [facility]) -: Seizures (as a child) -: Hx Brain tumor -: Asthma -: DVT -: Lupus -: Chronic back pain -: Diastolic CHF/ Pulmonary HTN -: Pulmonary edema -: Csection x2 -: Brain Sx -: Kidney Transplant Nephrectomy/transplant was removed recently Psychosocial/ Personal History: Lives at home - Social History Smoking Status: Unknown if ever smoked Alcohol use: No CD- Drugs: Yes Caffeine use: Yes Place of Residence: Home Review of Systems 10-point ROS is otherwise unremarkable General: Malaise Gastrointestinal: Nausea Physical Examination Temp Pulse Resp BP Pulse Ox 98.7 F 79 17 144/89 H 98 04/10/25 04:00 04/10/25 08:45 04/10/25 08:45 04/10/25 08:45 04/10/25 08:45 General: In no apparent distress, Oriented x3, Cooperative HEENT: Atraumatic Neck: Supple Respiratory: Normal air movement Cardiovascular: No edema, Regular rate/rhythm Gastrointestinal: Soft and benign, Non-distended Musculoskeletal: No clubbing, No contractures Integumentary: No rashes, No cyanosis Neurological: Normal speech Laboratory Data (last 24 hrs) 04/09/25 04/09/25 04/09/25 12:10 12:10 12:10 WBC 5.40 Hgb 10.2 L Hct 30.9 L Plt Count 139 L PT 15.5 H INR 1.38 Sodium 135 L Potassium 5.2 H BUN 56 H Creatinine 13.90 H Glucose 96 Magnesium 1.9 Total Bilirubin 0.8 AST 11 L ALT < 14 Alkaline Phosphatase 79 Imagings Data: EXAMINATION: ONE VIEW CHEST XR CLINICAL INDICATION: volume overload TECHNIQUE: Frontal chest projection is submitted. Examination is limited by patient positioning and technique. COMPARISON: 03/27/2025 FINDINGS: Mild bilateral pulmonary edema is suspected. The heart is moderately enlarged in size. No displaced fractures identified. IMPRESSION: Mild CHF versus volume overload pattern is suspected. Conclusions/Impression: ESRD on HD Hyperkalemia Metabolic Acidosis -HD TIW -Acute HD Hypetensive Urgency HTN with CKD/ CHF -Cardene gtt Diastolic CHF, A/C -Low sodium diet -Acute HD with UF Anemia in chronic illness -Retacrit prn CKD MBD Secondary HyperParathyroidism -Start Calcitriol -Start Renvela Hospitalist and ER notes reviewed Case discussed with the ER provider Thank you kindly for the consult 45min patient care
[2025-04-10] MEDS: DIVALPROEX ER 250 MG TAB PO SCH (10:23)
[2025-04-10] MEDS: HYDRALAZINE HCL 20 MG/ML VIAL IV ONE (12:20)
[2025-04-10] MEDS ORDERED: CLONIDINE 0.2 MG/PATCH TD STA (12:25)
[2025-04-10] MEDS: NIFEdipine 10 MG CAP PO ONE (15:16)
[2025-04-10] MEDS: EPOETIN ALFA 10,000 UNIT/ML VIAL SQ ONE (20:10)
--- NOTE | 2025-04-10 20:10 | P.PN ---
Date of Service: 04/10/25 Vital Signs Temp Pulse Resp BP Pulse Ox 98.1 F 81 18 152/87 H 98 04/10/25 16:00 04/10/25 17:18 04/10/25 16:00 04/10/25 17:18 04/10/25 16:00 Medications Acetaminophen (Acetaminophen 325 Mg Tablet) 650 mg PO Q4HP PRN PRN Reason: Pain scale 2-4 (Mild) Acetaminophen/Butalbital/Caffeine (Acetamin/Caffeine/Butalb Tab) 1 tab PO Q4H PRN PRN Reason: Pain scale 8-10 (Severe) Last Admin: 04/09/25 20:46 Dose: 1 tab Hydrocodone Bitart/Acetaminophen (Hydrocodone/Apap 5/325 Mg Tab) 1 tab PO Q4H PRN PRN Reason: Pain scale 5-7 (Moderate) Calcitriol (Calcitrol 0.25 Mcg Cap) 0.5 mcg PO DAILY [facility] Last Admin: 04/10/25 08:08 Dose: 0.5 mcg Carvedilol (Carvedilol 25 Mg Tab) 25 mg PO BID 6AM 6PM [facility] Last Admin: 04/10/25 17:18 Dose: 25 mg Divalproex Sodium (Divalproex Er 250 Mg Tab) 500 mg PO DAILY [facility] Last Admin: 04/10/25 10:23 Dose: 500 mg Heparin Sodium (Porcine) (Heparin 5000 Unit/Ml 1 Ml Vial) 5,000 unit SQ Q12HR [facility] Last Admin: 04/10/25 08:05 Dose: 5,000 unit Albumin Human (Albumin 25%) 50 mls @ 100 mls/hr IV EVERY HD [facility] Isosorbide Dinitrate (Isosorbide Dinit 20 Mg Tab) 20 mg PO TID [facility] Last Admin: 04/10/25 13:57 Dose: 20 mg Lacosamide (Lacosamide 50 Mg Tablet) 50 mg PO BID [facility] Last Admin: 04/10/25 08:05 Dose: 50 mg Losartan Potassium (Losartan Potassium 50 Mg Tablet) 50 mg PO BID [facility] Last Admin: 04/10/25 08:04 Dose: 50 mg Mannitol (Mannitol 25% 12.5 Gm/50 Ml Vial) 12.5 gm IV EVERY HD PRN PRN Reason: Titrate to SBP (MUST DEFINE) Minoxidil (Minoxidil 2.5 Mg Tab) 2.5 mg PO BEDTIME [facility] Last Admin: 04/09/25 22:23 Dose: 2.5 mg Morphine Sulfate (Morphine 2 Mg/Ml Syr) 2 mg IV Q4H PRN PRN Reason: Pain scale 8-10 (Severe) Last Admin: 04/10/25 15:40 Dose: 2 mg Nifedipine (Nifedipine 10 Mg Cap) 30 mg PO BID [facility] Ondansetron HCl (Ondansetron 4 Mg/2 Ml Vial) 4 mg IV Q6HP PRN PRN Reason: NAUSEA / VOMITING Sevelamer Carbonate (Sevelamer Carbonate 800 Mg Tablet) 1,600 mg PO TIDWM [facility] Last Admin: 04/10/25 17:19 Dose: 1,600 mg Assessment/ Plan: Nephrology No dyspnea No chest pain No acute events overnight Malaise and weakness Vitals, medications, blood work and imaging reviewed in the chart General: In no apparent distress, Oriented x3, Cooperative HEENT: Atraumatic Neck: Supple Respiratory: Normal air movement Cardiovascular: No edema, Regular rate/rhythm Gastrointestinal: Soft and benign, Non-distended Musculoskeletal: No clubbing, No contractures Integumentary: No rashes, No cyanosis Neurological: Normal speech Laboratory Data (last 24 hrs) 04/09/25 04/09/25 04/09/25 12:10 12:10 12:10 WBC 5.40 Hgb 10.2 L Hct 30.9 L Plt Count 139 L PT 15.5 H INR 1.38 Sodium 135 L Potassium 5.2 H BUN 56 H Creatinine 13.90 H Glucose 96 Magnesium 1.9 Total Bilirubin 0.8 AST 11 L ALT < 14 Alkaline Phosphatase 79 Imagings Data: EXAMINATION: ONE VIEW CHEST XR CLINICAL INDICATION: volume overload TECHNIQUE: Frontal chest projection is submitted. Examination is limited by patient positioning and technique. COMPARISON: 03/27/2025 FINDINGS: Mild bilateral pulmonary edema is suspected. The heart is moderately enlarged in size. No displaced fractures identified. IMPRESSION: Mild CHF versus volume overload pattern is suspected. Conclusions/Impression: ESRD on HD Hyperkalemia Metabolic Acidosis -HD TIW Hypetensive Urgency HTN with CKD/ CHF -Wean Cardene gtt as tolerated -Continue Coreg, Losartan, Nifedipine Diastolic CHF, A/C -Low sodium diet -UF with HD Anemia in chronic illness -Retacrit X1 CKD MBD Secondary HyperParathyroidism -Continue Calcitriol -Continue Renvela Hospitalist note reviewed
[2025-04-10] MEDS: NIFEdipine 10 MG CAP PO SCH (20:14)
[2025-04-10] MEDS: EPOETIN ALFA-EPBX 10,000 UNIT/ML VIAL ONE (20:33)
[2025-04-10 20:58] VITALS: O2SAT 92
[2025-04-11 08:56] VITALS: TEMP 97.9
[2025-04-11 09:03] VITALS: BP 184/114
[2025-04-11] MEDS: MORPHINE 4 MG/ML SYR IV PRN (09:16)
--- NOTE | 2025-04-11 11:03 | P.PN ---
Date of Service: 04/11/25 Vital Signs Temp Pulse Resp BP Pulse Ox 97.9 F 76 15 184/114 H 95 04/11/25 08:00 04/11/25 09:02 04/11/25 08:00 04/11/25 09:02 04/11/25 08:00 Medications Acetaminophen (Acetaminophen 325 Mg Tablet) 650 mg PO Q4HP PRN PRN Reason: Pain scale 2-4 (Mild) Acetaminophen/Butalbital/Caffeine (Acetamin/Caffeine/Butalb Tab) 1 tab PO Q4H PRN PRN Reason: Pain scale 8-10 (Severe) Last Admin: 04/09/25 20:46 Dose: 1 tab Hydrocodone Bitart/Acetaminophen (Hydrocodone/Apap 5/325 Mg Tab) 1 tab PO Q4H PRN PRN Reason: Pain scale 5-7 (Moderate) Calcitriol (Calcitrol 0.25 Mcg Cap) 0.5 mcg PO DAILY [facility] Last Admin: 04/11/25 09:02 Dose: 0.5 mcg Carvedilol (Carvedilol 25 Mg Tab) 25 mg PO BID 6AM 6PM [facility] Last Admin: 04/11/25 05:26 Dose: 25 mg Divalproex Sodium (Divalproex Er 250 Mg Tab) 500 mg PO DAILY [facility] Last Admin: 04/11/25 09:02 Dose: 500 mg Heparin Sodium (Porcine) (Heparin 5000 Unit/Ml 1 Ml Vial) 5,000 unit SQ Q12HR [facility] Last Admin: 04/11/25 09:00 Dose: Not Given Albumin Human (Albumin 25%) 50 mls @ 100 mls/hr IV EVERY HD [facility] Isosorbide Dinitrate (Isosorbide Dinit 20 Mg Tab) 20 mg PO TID [facility] Last Admin: 04/11/25 09:03 Dose: 20 mg Lacosamide (Lacosamide 50 Mg Tablet) 50 mg PO BID [facility] Last Admin: 04/11/25 09:03 Dose: 50 mg Losartan Potassium (Losartan Potassium 50 Mg Tablet) 50 mg PO BID [facility] Last Admin: 04/11/25 09:02 Dose: 50 mg Mannitol (Mannitol 25% 12.5 Gm/50 Ml Vial) 12.5 gm IV EVERY HD PRN PRN Reason: Titrate to SBP (MUST DEFINE) Minoxidil (Minoxidil 2.5 Mg Tab) 2.5 mg PO BEDTIME [facility] Last Admin: 04/10/25 20:13 Dose: 2.5 mg Morphine Sulfate (Morphine 4 Mg/Ml Syr) 2 mg IV Q4H PRN PRN Reason: Pain scale 8-10 (Severe) Last Admin: 04/11/25 09:16 Dose: 2 mg Nifedipine (Nifedipine 10 Mg Cap) 30 mg PO BID [facility] Last Admin: 04/11/25 09:02 Dose: 30 mg Ondansetron HCl (Ondansetron 4 Mg/2 Ml Vial) 4 mg IV Q6HP PRN PRN Reason: NAUSEA / VOMITING Sevelamer Carbonate (Sevelamer Carbonate 800 Mg Tablet) 1,600 mg PO TIDWM [facility] Last Admin: 04/11/25 09:03 Dose: 1,600 mg Assessment/ Plan: Nephrology No dyspnea No chest pain No acute events overnight Feeling better today with improved BP control Vitals, medications, blood work and imaging reviewed in the chart General: In no apparent distress, Oriented x3, Cooperative HEENT: Atraumatic Neck: Supple Respiratory: Normal air movement Cardiovascular: No edema, Regular rate/rhythm Gastrointestinal: Soft and benign, Non-distended Musculoskeletal: No clubbing, No contractures Integumentary: No rashes, No cyanosis Neurological: Normal speech Laboratory Data (last 24 hrs) 04/09/25 04/09/25 04/09/25 12:10 12:10 12:10 WBC 5.40 Hgb 10.2 L Hct 30.9 L Plt Count 139 L PT 15.5 H INR 1.38 Sodium 135 L Potassium 5.2 H BUN 56 H Creatinine 13.90 H Glucose 96 Magnesium 1.9 Total Bilirubin 0.8 AST 11 L ALT < 14 Alkaline Phosphatase 79 Imagings Data: EXAMINATION: ONE VIEW CHEST XR CLINICAL INDICATION: volume overload TECHNIQUE: Frontal chest projection is submitted. Examination is limited by patient positioning and technique. COMPARISON: 03/27/2025 FINDINGS: Mild bilateral pulmonary edema is suspected. The heart is moderately enlarged in size. No displaced fractures identified. IMPRESSION: Mild CHF versus volume overload pattern is suspected. Conclusions/Impression: ESRD on HD Hyperkalemia Metabolic Acidosis -HD TIW -Seen and examined on HD Hypetensive Urgency HTN with CKD/ CHF -Continue Coreg, Losartan, Nifedipine Diastolic CHF, A/C -Low sodium diet -UF with HD Anemia in chronic illness -Retacrit prn CKD MBD Secondary HyperParathyroidism -Continue Calcitriol -Continue Renvela Hospitalist note reviewed
[2025-04-16] MEDS ORDERED: CLONIDINE 0.2 MG/PATCH TD SCH (09:00)
== END 2025-04-11 15:18 | disposition home or self-care (01) | DRG 640 ==
LOC: ER 11:13 → ERHOLD 16:50 → 2ND 18:14 → 3RD-ICU 19:16 → 4TH 04-10 15:25
PROVIDERS: ADMIT Family Medicine; ATTEND Hospitalist
PROC: 5A1D70Z Performance of Urinary Filtration, Intermittent, Less than 6 Hours Per Day (ICD-10-PCS; principal; 2025-04-09)
DX: E87.5 Hyperkalemia (principal); I50.33 Acute on chronic diastolic (congestive) heart failure; N18.6 End stage renal disease; I13.2 Hypertensive heart and chronic kidney disease with heart failure and with stage 5 chronic kidney disease, or end stage renal disease; Z94.0 Kidney transplant status; I16.1 Hypertensive emergency; N25.81 Secondary hyperparathyroidism of renal origin; D63.1 Anemia in chronic kidney disease; E87.20 Acidosis, unspecified; G89.29 Other chronic pain; M54.9 Dorsalgia, unspecified; J45.909 Unspecified asthma, uncomplicated; Z99.2 Dependence on renal dialysis; Z90.5 Acquired absence of kidney; Z88.1 Allergy status to other antibiotic agents; Z79.02 Long term (current) use of antithrombotics/antiplatelets; Z91.040 Latex allergy status; Z91.018 Allergy to other foods; Z91.048 Other nonmedicinal substance allergy status; Z91.158 Patient's noncompliance with renal dialysis for other reason; Z79.899 Other long term (current) drug therapy; Z86.718 Personal history of other venous thrombosis and embolism
CPT/HCPCS: 36415; 71045; 80048; 80053; 80076; 83735; 83880; 84484; 85025; 85610; 90935; 93005; 94760; 96365; 96366; 99284; J0360; J1644; J2270; J2404; Q5106